=== PATIENT | female | born 1950 | race Caucasian/White ===

== ENCOUNTER 2016-09-17 10:52 | Emergency (ER) | payer OTHER ==
[~2016-09-17] VITALS: Ht 154.9 cm; Wt 72.2 kg
[~2016-09-17 10:52] MED LIST: ASCA500; ASPI1TAB48 PO; FLUT1INH PO; HYDR-5688 PO; LPT40 PO; NTRGSL/4 UT; OMEP40CA41 PO; ONDA4TAB65 PO; SERT-234 PO; TIZA4CAP PO; VTMD PO
[2016-09-17 10:59] VITALS: TEMP 36.9; Ht 154.9 cm; Wt 72.2 kg
[2016-09-17] MEDS ORDERED: GABA1CAP4 PO (11:15)
[2016-09-17] MEDS ORDERED: MORP-158 PO (11:15)
[2016-09-17] MEDS ORDERED: ONDANSETRON INJ 2 MG/ML 2 ML VIAL IV STA (11:24)
[2016-09-17] MEDS ORDERED: SODIUM CHLORIDE 0.9% 1000ML 1,000 ML IV STA (11:24)
[2016-09-17] MEDS ORDERED: MoRPHine SULFATE 4 MG/ML 1 ML CARP\\VIAL IV STA (11:24)
[2016-09-17 11:38] LABS: BASO % 0.5 %; BASO ABS # 0.05 K/uL (0-0.2); COMPLETE YES; EOS % 2.2 %; IG% 0.2 %; LYMPH % 32.3 %; LYMPH ABS # 3.45 K/uL (1.2-3.4); MEAN CELL VOLUME 93.1 fL (80-100); MEAN CORPUSCULAR HEMOGLOBIN 31.1 pg (25-34); MEAN CORPUSCULAR HGB CONC 33.4 g/dl (32-36); MEAN PLATELET VOLUME 10.5 fL (7.4-10.4); MONO % 8.3 %; NEUT % 56.5 %; PLATELET COUNT 259 K/uL (130-400); RED BLOOD COUNT 4.08 M/uL (4.2-5.4); WHITE BLOOD COUNT 10.69 K/uL (4.8-10.8)
[2016-09-17 11:59] LABS: BUN/CREATININE RATIO 19.8 (10-20); CALCIUM 9.4 mg/dl (8.5-10.1); CREATININE 0.84 mg/dl (0.60-1.20); POTASSIUM 3.8 mmol/L (3.5-5.1)
--- NOTE | 2016-09-17 12:03 | DIAGNOSTIC IMAGING REPORT ---
CT SCAN OF THE ABDOMEN AND PELVIS WITHOUT CONTRAST CLINICAL HISTORY: Right lower quadrant abdominal pain and vomiting. COMPARISON STUDY: 04/15/2016 TECHNIQUE: CT scan of the abdomen and pelvis was performed from the lung bases to the proximal femurs. Images are reviewed in the axial, sagittal, and coronal planes. IV contrast was not administered for this examination. CT DOSE: 403.73 mGy.cm FINDINGS: Lower chest: There are minor basilar atelectatic changes. Liver: There is stable 9 mm hypodensity within the right lobe of the liver, likely representing a cyst. Gallbladder: Surgically absent Spleen: Normal in size and attenuation. Pancreas: Unremarkable. Adrenal glands: Unremarkable. Kidneys: No renal, ureteral, or bladder calculi are visualized. Bowel: There are no transition zones indicate bowel obstruction. There is colonic diverticulosis. The appendix appears normal. There are no findings to indicate acute diverticulitis. Peritoneum: There is no intraperitoneal free air or abdominal ascites. Vasculature: The aorta is nondilated. There is probable mild aortic wall thickening involving the mid abdominal aorta./ Adenopathy: None. Pelvic viscera: The uterus appears surgically absent Skeletal structures: No destructive osseous lesions are seen. IMPRESSION: 1. No evidence of bowel obstruction. No evidence of free air 2. Normal appendix 3. Scattered colonic diverticula. No evidence of acute diverticulitis 4. No renal, ureteral, or bladder calculi are visualized 5. Mild mid abdominal aortic wall thickening. No evidence of aneurysmal dilatation. Electronically signed by: Jose Hairston M.D. 09/17/2016 12:02 PM Dictated Date/Time: 09/17/2016 11:56 AM
[2016-09-17 12:11] LABS: URINE APPEARANCE CLEAR (CLEAR); URINE BILIRUBIN NEG (NEG); URINE COLOR YELLOW; URINE EPITHELIAL CELL AUTO >30 /lpf (0-5); URINE NITRITE NEG (NEG); URINE SPECIFIC GRAVITY 1.023 (1.000-1.030); UROBILINOGEN NEG (NEG); ZZUR CULT IF INDIC CLEAN CATCH NO
[2016-09-17 12:14] LABS: MANUAL MICROSCOPIC REQUIRED? NO; REVIEW REQ? NO
--- NOTE | 2016-09-17 13:52 | EMERGENCY ROOM VISIT NOTE ---
History First contact with patient: 11:04 (Tracee Argueta PA-C) First contact with patient: 11:04 (Yeyo Grande, D.O.) Chief Complaint: ABDOMINAL PAIN Stated Complaint: PAIN IN LOWER RT SIDE Nursing Triage Summary: Triage note: pt reports right lower abd pain x 1 week. pt reports nausea and vomitting. (Tracee Argueta PA-C) History of Present Illness The patient is a 66 year old female who presents to the Emergency Room with complaints of right lower quadrant abdominal pain for the past one week. She states that the pain has been intermittent and has become more severe over the past few days. She states it is worse with walking. She has had nausea and one episode of vomiting per day. She does have a history of kidney stones and feels that this pain is similar, but worse than her typical pain. She has a history of hysterectomy and cholecystectomy. She denies other abdominal surgeries. She denies any urinary symptoms, vaginal bleeding/discharge, chest pain, shortness of breath or changes in bowel movements. She denies any blood in her stools. (Tracee Argueta PA-C) Review of Systems A complete 10-point Review of Systems was discussed with the patient, with pertinent positives and negatives listed in the History of Present Illness. All remaining Review of Systems questions can be considered negative unless otherwise specified. (Tracee Argueta PA-C) Past Medical/Surgical History Medical Problems: (1) Acute gastric ulcer (2) Anxiety (3) Carotid stenosis (4) Chronic back pain (5) COPD (chronic obstructive pulmonary disease) (6) Gastroesophageal reflux disease (7) Hyperlipidemia (8) Kidney stone (9) Osteoarthritis (10) Osteoporosis Surgical Problems: (1) section (2) H/O dilation and curettage (3) History of hysterectomy (4) Hx of shoulder surgery (5) S/P carpal tunnel release (Yeyo Grande, D.O.) Family History FHx: cancer FHx: diabetes FHx: heart disease FHx: hypertension FHx: seizures Myocardial infarction FATHER, Onset:45 (Tracee Argueta PA-C) FHx: cancer FHx: diabetes FHx: heart disease FHx: hypertension FHx: seizures Myocardial infarction FATHER, Onset:45 (Yeyo Grande, D.O.) Social History Smoking Status: Current Every Day Smoker Alcohol Use: none Drug Use: none Marital Status: Housing Status: lives alone Occupation Status: employed (Tracee Argueta PA-C) Current/Historical Medications Scheduled Ascorbic Acid (Vitamin C), 500 MG BID Aspirin (Aspirin Low Dose), 81 MG PO QAM Atorvastatin (Atorvastatin Calcium), 40 MG PO QAM Ergocalciferol (Vitamin D), 1 CAP PO 2XWK Gabapentin (Gabapentin), 300 MG PO HS Nitroglycerin (Nitrostat), 0.4 MG UT PRN Omeprazole (Prilosec), 40 MG PO DAILY Sertraline (Zoloft), 150 MG PO HS Scheduled PRN Fluticasone Furoate-Vilanterol (Breo Ellipta), 2 PUFFS PO DAILY PRN for SOB/ Wheezing Hydrocodone/Acetaminophen 5MG/325MG (Elizabeth 5MG/325MG), 1 TABLET PO Q4-6H PRN for Pain Morphine Sulfate (Ms Contin), 1 TAB PO BID PRN for Pain Ondansetron Hcl (Zofran), 8 MG PO Q6H PRN for Nausea Tizanidine Hcl (Zanaflex), 4 MG PO BID PRN Allergies Coded Allergies: Iodinated Diagnostic Agents (Verified Allergy, Unknown, ., 09/18/16) Penicillins (Verified Allergy, Unknown, 09/18/16) Benzalkonium Chloride (Verified Adverse Reaction, Intermediate, VERTIGO, ) Ofloxacin (Verified Adverse Reaction, Intermediate, VERTIGO, 09/18/16) Corticosteroids (Verified Adverse Reaction, Unknown, jittery and hyper, ) Physical Exam Vital Signs Date Time Temp Pulse Resp B/P Pulse Ox O2 Delivery O2 Flow Rate FiO2 09/17/16 14:05 78 18 151/75 97 09/17/16 12:55 67 16 123/65 94 09/17/16 10:59 36.9 79 18 146/60 95 Room Air (Yeyo Grande, D.OYu) Pain Rating (0-10): 9.0 (Tracee Argueta PA-C) Physical Exam VITALS: Vitals are noted on the nurse's note and reviewed by myself. Vital signs stable. GENERAL: This is a 66-year-old female, in no acute distress, nondiaphoretic, well-developed well-nourished. SKIN: Capillary reflex less than 2 seconds. HEENT: Normocephalic. PERRLA. EOMI. Nares patent. Mucous membranes moist. Neck is supple without nuchal rigidity. HEART: Regular rate and rhythm without murmurs gallops or rubs. LUNGS: Clear to auscultation bilaterally without wheezes, rales or rhonchi. ABDOMEN: Positive bowel sounds x 4. Mild tenderness to palpation of the right lower abdomen and right mid abdomen. No guarding or rebound tenderness. Negative Rovsing sign. NEURO: Patient was alert and oriented to person place and time. (Tracee Argueta ., PA-C) Medical Decision & Procedures ER Provider Diagnostic Interpretation: CT SCAN OF THE ABDOMEN AND PELVIS WITHOUT CONTRAST CLINICAL HISTORY: Right lower quadrant abdominal pain and vomiting. COMPARISON STUDY: 04/15/2016 TECHNIQUE: CT scan of the abdomen and pelvis was performed from the lung bases to the proximal femurs. Images are reviewed in the axial, sagittal, and coronal planes. IV contrast was not administered for this examination. CT DOSE: 403.73 mGy.cm FINDINGS: Lower chest: There are minor basilar atelectatic changes. Liver: There is stable 9 mm hypodensity within the right lobe of the liver, likely representing a cyst. Gallbladder: Surgically absent Spleen: Normal in size and attenuation. Pancreas: Unremarkable. Adrenal glands: Unremarkable. Kidneys: No renal, ureteral, or bladder calculi are visualized. Bowel: There are no transition zones indicate bowel obstruction. There is colonic diverticulosis. The appendix appears normal. There are no findings to indicate acute diverticulitis. Peritoneum: There is no intraperitoneal free air or abdominal ascites. Vasculature: The aorta is nondilated. There is probable mild aortic wall thickening involving the mid abdominal aorta./ Adenopathy: None. Pelvic viscera: The uterus appears surgically absent Skeletal structures: No destructive osseous lesions are seen. IMPRESSION: 1. No evidence of bowel obstruction. No evidence of free air 2. Normal appendix 3. Scattered colonic diverticula. No evidence of acute diverticulitis 4. No renal, ureteral, or bladder calculi are visualized 5. Mild mid abdominal aortic wall thickening. No evidence of aneurysmal dilatation. (Tracee Argueta ., PA-C) Laboratory Results 09/17/16 11:10 Red Blood Count 4.08, Mean Corpuscular Volume 93.1, Mean Corpuscular Hemoglobin 31.1, Mean Corpuscular Hemoglobin Concent 33.4, Mean Platelet Volume 10.5, Neutrophils (%) (Auto) 56.5, Lymphocytes (%) (Auto) 32.3, Monocytes (%) (Auto) 8.3, Eosinophils (%) (Auto) 2.2, Basophils (%) (Auto) 0.5, Neutrophils # (Auto) 6.04, Lymphocytes # (Auto) 3.45, Monocytes # (Auto) 0.89, Eosinophils # (Auto) 0.24, Basophils # (Auto) 0.05 09/17/16 11:10 Test 09/17/16 11:10 09/17/16 11:11 09/17/16 13:11 White Blood Count 10.69 K/uL (4.8-10.8) Red Blood Count 4.08 M/uL (4.2-5.4) Hemoglobin 12.7 g/dL (12.0-16.0) Hematocrit 38.0 % (37-47) Mean Corpuscular Volume 93.1 fL (80-100) Mean Corpuscular Hemoglobin 31.1 pg (25-34) Mean Corpuscular Hemoglobin Concent 33.4 g/dl (32-36) Platelet Count 259 K/uL (130-400) Mean Platelet Volume 10.5 fL (7.4-10.4) Neutrophils (%) (Auto) 56.5 % Lymphocytes (%) (Auto) 32.3 % Monocytes (%) (Auto) 8.3 % Eosinophils (%) (Auto) 2.2 % Basophils (%) (Auto) 0.5 % Neutrophils # (Auto) 6.04 K/uL (1.4-6.5) Lymphocytes # (Auto) 3.45 K/uL (1.2-3.4) Monocytes # (Auto) 0.89 K/uL (0.11-0.59) Eosinophils # (Auto) 0.24 K/uL (0-0.5) Basophils # (Auto) 0.05 K/uL (0-0.2) RDW Standard Deviation 45.1 fL (36.4-46.3) RDW Coefficient of Variation 13.2 % (11.5-14.5) Immature Granulocyte % (Auto) 0.2 % Immature Granulocyte # (Auto) 0.02 K/uL (0.00-0.02) Anion Gap 6.0 mmol/L (3-11) Est Creatinine Clear Calc Drug Dose 59.8 ml/min Estimated GFR () 83.9 Estimated GFR (Non- 72.4 BUN/Creatinine Ratio 19.8 (10-20) Calcium Level 9.4 mg/dl (8.5-10.1) Total Bilirubin 0.5 mg/dl (0.2-1) Aspartate Amino Transf (AST/SGOT) 19 U/L (15-37) Alanine Aminotransferase (ALT/SGPT) 25 U/L (12-78) Alkaline Phosphatase 98 U/L (45-117) Total Protein 7.7 gm/dl (6.4-8.2) Albumin 3.8 gm/dl (3.4-5.0) Globulin 3.9 gm/dl (2.5-4.0) Albumin/Globulin Ratio 1.0 (0.9-2) Lipase 133 U/L (73-393) Urine Color YELLOW Urine Appearance CLEAR (CLEAR) Urine pH 7.0 (4.5-7.5) Urine Specific [place] 1.023 (1.000-1.030) Urine Protein NEG (NEG) Urine Glucose (UA) NEG (NEG) Urine Ketones NEG (NEG) Urine Occult Blood TRACE (NEG) Urine Nitrite NEG (NEG) Urine Bilirubin NEG (NEG) Urine Urobilinogen NEG (NEG) Urine Leukocyte Esterase NEG (NEG) Urine WBC (Auto) 1-5 /hpf (0-5) Urine RBC (Auto) 5-10 /hpf (0-4) Urine Hyaline Casts (Auto) 1-5 /lpf (0-5) Urine Epithelial Cells (Auto) >30 /lpf (0-5) Urine Bacteria (Auto) NEG (NEG) Lactic Acid Level 0.8 mmol/L (0.4-2.0) (Yeyo Grande D.OYu) Medications Administered Medications (Trade) Dose Ordered Sig/[place] Route Start Time Stop Time Status Last Admin Dose Admin Sodium Chloride (Nss 1000ml) 1,000 ml @ 999 mls/hr Q1H1M STAT IV 09/17/16 11:24 09/17/16 12:24 DC 09/17/16 11:32 999 MLS/HR Ondansetron HCl (Zofran Inj) 4 mg NOW STAT IV 09/17/16 11:24 09/17/16 11:27 DC 09/17/16 11:33 4 MG Morphine Sulfate (MoRPHine SULFATE INJ) 4 mg NOW STAT IV 09/17/16 11:24 09/17/16 11:27 DC 09/17/16 11:34 4 MG (Yeyo Grande, D.O.) Medical Decision Differential diagnosis includes appendicitis, renal, pyelonephritis, aortic dissection, gastroenteritis, colitis, mesenteric adenitis, mesenteric ischemia, among others. The patient was evaluated as above. Labs were drawn and IV access was obtained. Imaging studies were performed and read by radiology as above. The patient was medicated with 1 L normal saline solution, 4 mg morphine IV and 4 mg Zofran IV. The patient was reassessed multiple times during their stay in the emergency department and remained in stable condition. The patient is a 66-year-old female who presents today complaining of right lower quadrant abdominal pain. Her physical exam is benign other than some right lower quadrant and right mid abdomen tenderness. Labs revealed no leukocytosis, anemia or concerning electrolyte abnormalities. Liver and kidney functions were within normal limits. Urinalysis was not suggestive of infection. CT scan was performed without contrast as the patient has an allergy to contrast dye. This was read by radiology and did not show any evidence of acute intra-abdominal findings. There was some questionable thickening of the aorta, but this does not appear to represent an aortic aneurysm. The patient is not hypertensive and there is not a high clinical suspicion for a symptomatic abdominal aortic aneurysm. Lactic acid was not elevated, making mesenteric ischemia unlikely. RPR was ordered and is pending. The patient has been seen here before for right lower quadrant pain and had a negative CT scan at that time as well. The etiology of her pain is unclear, but there is a small amount of blood in the urine and may represent a recently passed stone. The patient will follow-up with her primary care provider this week and will return sooner for worsening symptoms or any other new/concerning symptoms. Based on the patient's presentation, lab results, and imaging studies, I feel the patient is stable for outpatient treatment. The patient was independently evaluated by Dr. Grande, ED attending physician, who agreed with my assessment and treatment plan. Discharge instructions were reviewed with the patient. The patient verbalized understanding of my assessment and treatment plan and was discharged home in good condition. (Tracee Argueta PA-C) Impression Primary Impression: Right lower quadrant abdominal pain Departure Information Dispostion Home / Self-Care Condition GOOD Referrals Aureliano Hickey PA-C (PCP) Patient Instructions My [facility] Additional Instructions You have been treated in the Emergency Department for your Abdominal Pain. Laboratory results and imaging studies have ruled out any emergent causes for your abdominal pain which would warrant admission or surgery. There was a slight abnormality of your aorta found on CT scan. This will require follow-up with your primary care provider in the next 1-2 weeks. For pain control, you can use the following [id number] medicines (if >12 yo): - Regular strength (325mg/tab) Tylenol (acetaminophen) 2 tabs every 4-6 hours as needed. Do not exceed 12 tablets in a 24 hour period. Avoid taking more than 4 grams (4000 mg) of Tylenol per day. This includes any other sources of acetaminophen you may take on a regular basis. - Regular strength (200 mg/tab) Advil (ibuprofen) 1-2 tabs every 4-6 hours as needed. Do not exceed a dose of 3200 mg per day. Drink plenty of water and stay well hydrated. As with any trip to the Emergency Department, you should follow-up with your Primary Care Provider from today's visit. Return to the emergency department if your symptoms persist despite treatment plan outlined above or if the following symptoms occur: Fevers, increased vomiting, blood in your stool or any other/concerning symptoms.
--- NOTE | 2016-09-17 13:54 | EMERGENCY ROOM VISIT NOTE ---
ED Visit Note First contact with patient: 11:04 I have personally evaluated and examined this patient. I agree with assessment and plan of Coleen Argueta PA-C. During my evaluation patient is asymptomatic, no abdominal pain, I advised her that she needs to stop smoking, and follow up with her primary care doctor regarding this aorta thickening. Do not believe this represents a acute aortic dissection however requires follow to make sure is not enlarging given that she has risk factors for peripheral vascular disease.
[2016-09-17 14:05] VITALS: BP 151/75; PULSE 78; O2SAT 97
[2017-03-24] MEDS ORDERED: ERGO500037 PO (14:53)
== END 2016-09-17 14:08 | disposition home or self-care (01) ==
LOC: C.EDB 10:53 → C.EDC 14:08
DX: R10.31 Right lower quadrant pain (principal); I65.29 Occlusion and stenosis of unspecified carotid artery; E78.5 Hyperlipidemia, unspecified; F17.210 Nicotine dependence, cigarettes, uncomplicated; J44.9 Chronic obstructive pulmonary disease, unspecified; K21.9 Gastro-esophageal reflux disease without esophagitis; K57.30 Diverticulosis of large intestine without perforation or abscess without bleeding; M81.0 Age-related osteoporosis without current pathological fracture; F41.9 Anxiety disorder, unspecified; R11.2 Nausea with vomiting, unspecified; Z79.899 Other long term (current) drug therapy

== ENCOUNTER 2016-09-18 15:07 | Emergency (ER) | payer OTHER ==
[~2016-09-18] VITALS: Ht 152.4 cm; Wt 73.6 kg
[~2016-09-18 15:07] MED LIST changes: +GABA1CAP4 PO; +MORP-158 PO
[2016-09-18 15:17] VITALS: Ht 152.4 cm; Wt 73.6 kg
[2016-09-18 17:05] LABS: URINE APPEARANCE CLEAR (CLEAR); URINE BILIRUBIN NEG (NEG); URINE COLOR YELLOW; URINE EPITHELIAL CELL AUTO >30 /lpf (0-5); URINE NITRITE NEG (NEG); UROBILINOGEN NEG (NEG); ZZUR CULT IF INDIC CLEAN CATCH NO
[2016-09-18] MEDS ORDERED: LIDOCAINE HCL 2% VISC SOLN 20 ML UDC PO STA (17:06)
[2016-09-18] MEDS ORDERED: ALUMINUM/MAGNESIUM SUSP 30 ML UDC PO STA (17:06)
[2016-09-18 17:08] LABS: MANUAL MICROSCOPIC REQUIRED? NO; REVIEW REQ? NO
--- NOTE | 2016-09-18 17:08 | DIAGNOSTIC IMAGING REPORT ---
CHEST ONE VIEW PORTABLE CLINICAL HISTORY: cp dyspnea COMPARISON STUDY: 07/04/2016 FINDINGS: atelectasis left base. Lungs otherwise are clear. No evidence for significant cardiac enlargement. IMPRESSION: Platelike atelectasis left base. Otherwise negative study Electronically signed by: Edward Rodriguez M.D. 09/18/2016 5:07 PM Dictated Date/Time: 09/18/2016 5:06 PM
--- NOTE | 2016-09-18 17:34 | EMERGENCY ROOM VISIT NOTE ---
History Report prepared by Yoli: Cassidy Scott Under the Supervision of: Dr. Dexter Lehman D.O. First contact with patient: 16:24 Chief Complaint: SHORTNESS OF BREATH Stated Complaint: CHEST PRESSURE,SOB Nursing Triage Summary: having sob today. I was here yesterday for abdominal pains. I keep getting dizzy. History of Present Illness The patient is a 66 year old female who presents to the Emergency Room with complaints of intermittent shortness of breath episodes beginning this morning. She notes that these episodes occur every 5-10 minutes and can last up to a couple of hours in length. She is also experiencing chest pain and pain with breathing. She describes the chest pain as a severe heartburn sensation. The patient was seen in the ED yesterday and passed a kidney stone. She notes she still has slight abdominal pain. The patient did have similar symptoms one week ago however they did not last this long. She is a current smoker. She denies a history of heart problems. Source of History: patient Onset: this morning Position: other (global) Quality: other (shortness of breath) Timing: intermittent Associated Symptoms: + abdominal pain, + chest pain Note: Patient has pain with breathing. Review of Systems See HPI for pertinent positives & negatives. A total of 10 systems reviewed and were otherwise negative. Past Medical & Surgical Medical Problems: (1) Acute gastric ulcer (2) Anxiety (3) Carotid stenosis (4) Chronic back pain (5) COPD (chronic obstructive pulmonary disease) (6) Gastroesophageal reflux disease (7) Hyperlipidemia (8) Kidney stone (9) Osteoarthritis (10) Osteoporosis Surgical Problems: (1) section (2) H/O dilation and curettage (3) History of hysterectomy (4) Hx of shoulder surgery (5) S/P carpal tunnel release Family History FHx: cancer FHx: diabetes FHx: heart disease FHx: hypertension FHx: seizures Myocardial infarction FATHER, Onset:45 Social History Smoking Status: Current Every Day Smoker Alcohol Use: none Drug Use: none Marital Status: Housing Status: lives alone Occupation Status: employed Current/Historical Medications Scheduled Ascorbic Acid (Vitamin C), 500 MG BID Aspirin (Aspirin Low Dose), 81 MG PO QAM Atorvastatin (Atorvastatin Calcium), 40 MG PO QAM Ergocalciferol (Vitamin D), 1 CAP PO 2XWK Gabapentin (Gabapentin), 300 MG PO HS Nitroglycerin (Nitrostat), 0.4 MG UT PRN Omeprazole (Prilosec), 40 MG PO DAILY Sertraline (Zoloft), 150 MG PO HS Scheduled PRN Fluticasone Furoate-Vilanterol (Breo Ellipta), 2 PUFFS PO DAILY PRN for SOB/ Wheezing Hydrocodone/Acetaminophen 5MG/325MG ([place] 5MG/325MG), 1 TABLET PO Q4-6H PRN for Pain Morphine Sulfate (Ms Contin), 1 TAB PO BID PRN for Pain Ondansetron Hcl (Zofran), 8 MG PO Q6H PRN for Nausea Tizanidine Hcl (Zanaflex), 4 MG PO BID PRN Allergies Coded Allergies: Iodinated Diagnostic Agents (Verified Allergy, Unknown, ., 09/18/16) Penicillins (Verified Allergy, Unknown, 09/18/16) Benzalkonium Chloride (Verified Adverse Reaction, Intermediate, VERTIGO, ) Ofloxacin (Verified Adverse Reaction, Intermediate, VERTIGO, 09/18/16) Corticosteroids (Verified Adverse Reaction, Unknown, jittery and hyper, ) Physical Exam Vital Signs Date Time Temp Pulse Resp B/P Pulse Ox O2 Delivery O2 Flow Rate FiO2 09/18/16 16:24 36.8 76 18 157/57 97 Room Air 09/18/16 15:17 97 Room Air 09/18/16 15:17 36.8 76 18 157/57 97 Room Air Physical Exam CONSTITUTIONAL/VITAL SIGNS: Reviewed / noted above. GENERAL: Non-toxic in appearance. INTEGUMENTARY: Warm, dry, and [place]. HEAD: Normocephalic. EYES: without scleral icterus or trauma. ENT/OROPHARYNX: clear and moist. LYMPHADENOPATHY/NECK: Is supple without lymphadenopathy or meningismus. RESPIRATORY: Lungs clear and equal. CARDIOVASCULAR: Regular rate and rhythm. GI/ABDOMEN: Soft and nontender. No organomegaly or pulsatile mass. No rebound or guarding. Normal bowel sounds. EXTREMITIES: Warm and well perfused. BACK: No CVA tenderness. NEUROLOGICAL: Intact without focal deficits. PSYCHIATRIC: normal affect. MUSCULOSKELETAL: Normally developed with good muscle tone. Medical Decision & Procedures ER Provider Diagnostic Interpretation: X ray results and stated below per my interpretation and radiology interpretation. CHEST ONE VIEW PORTABLE CLINICAL HISTORY: cp dyspnea COMPARISON STUDY: 07/04/2016 FINDINGS: atelectasis left base. Lungs otherwise are clear. No evidence for significant cardiac enlargement. IMPRESSION: Platelike atelectasis left base. Otherwise negative study Electronically signed by: Edward Rodriguez M.D. 09/18/2016 5:07 PM Dictated Date/Time: 09/18/2016 5:06 PM Laboratory Results Test 09/18/16 16:03 09/18/16 16:38 Urine Color YELLOW Urine Appearance CLEAR (CLEAR) Urine pH 5.0 (4.5-7.5) Urine Specific [place] 1.020 (1.000-1.030) Urine Protein NEG (NEG) Urine Glucose (UA) NEG (NEG) Urine Ketones NEG (NEG) Urine Occult Blood TRACE (NEG) Urine Nitrite NEG (NEG) Urine Bilirubin NEG (NEG) Urine Urobilinogen NEG (NEG) Urine Leukocyte Esterase NEG (NEG) Urine WBC (Auto) 1-5 /hpf (0-5) Urine RBC (Auto) 0-4 /hpf (0-4) Urine Hyaline Casts (Auto) 1-5 /lpf (0-5) Urine Epithelial Cells (Auto) >30 /lpf (0-5) Urine Bacteria (Auto) NEG (NEG) Bedside Troponin I 0.000 ng/ml (0-0.045) Laboratory results as stated above per my review. Medications Administered Medications (Trade) Dose Ordered Sig/[place] Route Start Time Stop Time Status Last Admin Dose Admin Al Hydroxide/Mg Hydroxide (Maalox Susp) 30 ml NOW STAT PO 09/18/16 17:06 09/18/16 17:07 DC 09/18/16 17:13 30 ML Lidocaine HCl (Viscous Lidocaine 2% Soln) 10 ml NOW STAT PO 09/18/16 17:06 09/18/16 17:07 DC 09/18/16 17:13 10 ML ECG Indication: SOB/dyspnea Rate (beats per minute): 71 Rhythm: normal sinus Findings: no acute ischemic change, no ectopy ED Course 1626: Previous medical records were reviewed. The patient was evaluated in room B11. A complete history and physical examination was performed. 1706: Viscous Lidocaine 2% Soln 10 ml PO, Maalox Susp 30 ml PO. 1707: I reevaluated the patient. 1728: On reevaluation, the patient is hemodynamically stable. I discussed the results and findings with the patient. She verbalized agreement of the treatment plan. She was discharged home. Medical Decision The patient is a 66 year old female who presents to the ED with complaints of shortness of breath and some epigastric abdominal pain/heartburn. The patient was seen here yesterday for abdominal pain. Although the patient states that she's had the symptoms in the past, she did not have an yesterday. The patient states that her symptoms come and go about every 5-10 minutes. She denies any history of heart problems or family history. She denies any diaphoresis, palpitations or other symptoms. Her vital signs are normal. Her physical exam was normal. EKG shows a normal sinus rhythm at a rate of 71. Chest x-ray did not show acute disease. Urine did not show infection. Troponin was negative. Blood work was reviewed from yesterday. CT scan was reviewed from yesterday. The patient was given a GI cocktail for symptoms. She was told to follow-up with her PCP for recheck. The symptoms are not felt to be likely heart related. the differential was considered includes acute myocardial infarction, acute coronary syndrome, myocarditis, pericarditis, pericardial effusions /tamponade, esophageal perforation, thoracic aortic dissection, pulmonary embolism, pneumonia, pneumothorax, pancreatitis, shingles, acute cholecystitis, perforated abdominal viscus. Impression Primary Impression: Epigastric abdominal pain Scribe Attestation The scribe's documentation has been prepared under my direction and personally reviewed by me in its entirety. I confirm that the note above accurately reflects all work, treatment, procedures, and medical decision making performed by me. Departure Information Dispostion Home / Self-Care Referrals Aureliano Hickey PA-C (PCP) Forms HOME CARE DOCUMENTATION FORM, IMPORTANT VISIT INFORMATION Patient Instructions My [facility] Additional Instructions Follow-up with your doctor for further care and evaluation in 1-2 days. Return to the emergency department for worsening or new symptoms or any concerns. You have been examined and treated today on an emergency basis only. This is not a substitute for, or an effort to provide, complete comprehensive medical care. It is impossible to recognize and treat all injuries or illnesses in a single emergency department visit. It is therefore important that you follow up closely with your doctor. Call as soon as possible for an appointment.
[2016-09-18 18:01] VITALS: BP 145/57; PULSE 74; TEMP 36.8; O2SAT 97
[2017-03-24] MEDS ORDERED: ERGO500037 PO (14:53)
== END 2016-09-18 18:01 | disposition home or self-care (01) ==
LOC: C.EDB 15:09
DX: R10.13 Epigastric pain (principal); R06.02 Shortness of breath; J44.9 Chronic obstructive pulmonary disease, unspecified; K21.9 Gastro-esophageal reflux disease without esophagitis; E78.5 Hyperlipidemia, unspecified; F17.200 Nicotine dependence, unspecified, uncomplicated; Z79.899 Other long term (current) drug therapy; Z79.82 Long term (current) use of aspirin; Z87.442 Personal history of urinary calculi; Z83.3 Family history of diabetes mellitus; Z82.49 Family history of ischemic heart disease and other diseases of the circulatory system

== ENCOUNTER 2016-11-11 12:38 | Emergency (ER) | payer OTHER ==
[~2016-11-11] VITALS: Ht 152.4 cm; Wt 75.1 kg
[2016-11-11 12:45] VITALS: TEMP 36.5; O2SAT 93; Ht 152.4 cm; Wt 75.1 kg
[2016-11-11 13:06] LABS: HEMATOCRIT 38.3 % (37-47); MEAN CELL VOLUME 90.8 fL (80-100); MEAN CORPUSCULAR HGB CONC 34.2 g/dl (32-36); MEAN PLATELET VOLUME 10.2 fL (7.4-10.4); PLATELET COUNT 263 K/uL (130-400); RED BLOOD COUNT 4.22 M/uL (4.2-5.4); WHITE BLOOD COUNT 8.73 K/uL (4.8-10.8)
[2016-11-11] MEDS ORDERED: FSM70 PO (13:12)
[2016-11-11] MEDS ORDERED: LORA-741 PO (13:12)
--- NOTE | 2016-11-11 13:14 | DIAGNOSTIC IMAGING REPORT ---
CHEST ONE VIEW PORTABLE CLINICAL HISTORY: Atypical chest pain COMPARISON STUDY: No previous studies for comparison. FINDINGS: The cardiac and mediastinal contours are normal. There is no evidence of focal pulmonary consolidation. There is no evidence of failure. No pleural effusions are visualized.[ There is minor bibasilar atelectasis IMPRESSION: No active disease in the chest. Electronically signed by: Jose Hairston M.D. 11/11/2016 1:13 PM Dictated Date/Time: 11/11/2016 1:12 PM
[2016-11-11 13:16] LABS: INR 0.9 (0.9-1.1); PARTIAL THROMBOPLASTIN RATIO 1.1
[2016-11-11 13:24] LABS: BUN/CREATININE RATIO 14.7 (10-20); CALCIUM 9.4 mg/dl (8.5-10.1); CREATININE 0.76 mg/dl (0.60-1.20); POTASSIUM 4.2 mmol/L (3.5-5.1)
[2016-11-11 13:29] LABS: ALB/GLOB RATIO 0.9 (0.9-2); CKMB/CK RATIO 0.7 (0-3.0)
--- NOTE | 2016-11-11 13:42 | EMERGENCY ROOM VISIT NOTE ---
History Report prepared by Yoli: Ozzy Wagner Under the Supervision of: Dr. Sterling Ma M.D. First contact with patient: 12:43 Chief Complaint: CARDIAC ASSESSMENT Stated Complaint: CHEST PAIN/LETHARGIC Nursing Triage Summary: patient was brought via als. patient states while she was working she developed left side chest pains. per ems, "when we arrived on scene. people there said there was a period of unresponsiveness." patient is very lethargic at time of arrival to er. bsg 98. patient denies taking extra pain medications today. patient states she takes ms contin for arthritis. per med list patient is also perscribed hydrocodone-acetaminophen 5-325, gabapentin and zanaflex. History of Present Illness The patient is a 66 year old female who presents to the Emergency Room via ALS with complaints of constant left sided chest pain that started while working [employer]. She rates her pain a 10/10. Per the EMS staff, the patient experienced an episode of unresponsiveness prior to their arrival on scene. Patient reports increased fatigue at this time. The patient suffers from chronic pain related to arthritis. She is prescribed MS-Contin every 12 hours, hydrocodone- acetaminophen 5 mg every 6 hours, and Gabapentin She denies taking extra pain medications today. The patient adds that she was evaluated by her primary care physician yesterday who believes she may be over prescribed pain medications. Source of History: patient Onset: [employer] Position: chest (left) Symptom Intensity: 10/10 Timing: constant Associated Symptoms: + fatigue Note: Patient experienced episode of unresponsiveness. Review of Systems All systems have been listed, reviewed, and are negative other than those previously mentioned. Please see Additional Medical History Sheet. Past Medical & Surgical Medical Problems: (1) Acute gastric ulcer (2) Anxiety (3) Carotid stenosis (4) Chronic back pain (5) COPD (chronic obstructive pulmonary disease) (6) Gastroesophageal reflux disease (7) Hyperlipidemia (8) Kidney stone (9) Osteoarthritis (10) Osteoporosis Surgical Problems: (1) section (2) H/O dilation and curettage (3) History of hysterectomy (4) Hx of shoulder surgery (5) S/P carpal tunnel release Family History FHx: cancer FHx: diabetes FHx: heart disease FHx: hypertension FHx: seizures Myocardial infarction FATHER, Onset:45 Social History Smoking Status: Current Every Day Smoker Alcohol Use: none Drug Use: none Marital Status: Housing Status: lives alone Occupation Status: employed Current/Historical Medications Scheduled Alendronate Sodium (Alendronate Sodium), 70 MG PO WK Aspirin (Aspirin Low Dose), 81 MG PO QAM Atorvastatin (Atorvastatin Calcium), 40 MG PO QAM Ergocalciferol (Vitamin D), 1 CAP PO 2XWK Gabapentin (Gabapentin), 300 MG PO HS Nitroglycerin (Nitrostat), 0.4 MG UT PRN Omeprazole (Prilosec), 40 MG PO DAILY Sertraline (Zoloft), 150 MG PO HS Scheduled PRN Fluticasone Furoate-Vilanterol (Breo Ellipta), 2 PUFFS PO DAILY PRN for SOB/ Wheezing Hydrocodone/Acetaminophen 5MG/325MG ([place] 5MG/325MG), 1 TABLET PO Q4-6H PRN for Pain Ketorolac Tromethamine (Toradol), 1 TAB PO Q6H PRN for Pain Lorazepam (Ativan), 0.5 MG PO Q6H PRN for Anxiety Morphine Sulfate (Ms Contin), 1 TAB PO BID PRN for Pain Ondansetron Hcl (Zofran), 8 MG PO Q6H PRN for Nausea Tizanidine Hcl (Zanaflex), 4 MG PO Q8 PRN for MUSCLE SPASMS Allergies Coded Allergies: Iodinated Diagnostic Agents (Verified Allergy, Unknown, ., 09/18/16) Penicillins (Verified Allergy, Unknown, 09/18/16) Benzalkonium Chloride (Verified Adverse Reaction, Intermediate, VERTIGO, ) Ofloxacin (Verified Adverse Reaction, Intermediate, VERTIGO, 09/18/16) Corticosteroids (Verified Adverse Reaction, Unknown, jittery and hyper, ) Physical Exam Vital Signs Date Time Temp Pulse Resp B/P Pulse Ox O2 Delivery O2 Flow Rate FiO2 11/11/16 16:11 62 18 131/57 95 11/11/16 15:54 62 18 131/57 95 Room Air 11/11/16 14:59 58 15 107/42 95 Room Air 11/11/16 14:04 67 16 119/48 98 Room Air 64 118/59 66 112/61 11/11/16 13:46 63 18 107/73 94 Room Air 11/11/16 12:56 94 Room Air 11/11/16 12:47 67 11/11/16 12:45 93 Room Air 11/11/16 12:45 36.5 66 14 117/56 93 Room Air 11/11/16 12:45 93 Room Air Physical Exam GENERAL: Patient awake but somewhat drowsy. Answers questions appropriately. Patient follows commands. Patient does not appear toxic. Patient is adequately hydrated and well-nourished. SKIN: No erythema, pallor, cyanosis or rash HEENT: Normal head, pupils equal, reactive to light and accommodation. Oral cavity and posterior pharynx appear normal. Neck: Without adenopathy, no neck vein distention. LUNGS: Clear to auscultation. No wheezes, no rales, no rhonchi. HEART: No murmurs. No gallops. No rubs ABDOMEN: No masses, no rebound, no hepatomegaly or splenomegaly. EXTREMITIES: No signs of trauma. No pedal or pretibial edema. No calf or thigh tenderness. NEUROLOGIC: Cranial nerves II-XII within normal limits. No gross motor sensory function deficits. Medical Decision & Procedures ER Provider Diagnostic Interpretation: Radiology results as stated below per my review and radiologist interpretation: CHEST ONE VIEW PORTABLE CLINICAL HISTORY: Atypical chest pain COMPARISON STUDY: No previous studies for comparison. FINDINGS: The cardiac and mediastinal contours are normal. There is no evidence of focal pulmonary consolidation. There is no evidence of failure. No pleural effusions are visualized.[ There is minor bibasilar atelectasis IMPRESSION: No active disease in the chest. Electronically signed by: Jose Hairston M.D. 11/11/2016 1:13 PM Dictated Date/Time: 11/11/2016 1:12 PM Laboratory Results 11/11/16 12:40 11/11/16 12:40 Test 11/11/16 12:40 11/11/16 14:37 Red Blood Count 4.22 M/uL (4.2-5.4) Mean Corpuscular Volume 90.8 fL (80-100) Mean Corpuscular Hemoglobin 31.0 pg (25-34) Mean Corpuscular Hemoglobin Concent 34.2 g/dl (32-36) RDW Standard Deviation 42.5 fL (36.4-46.3) RDW Coefficient of Variation 12.8 % (11.5-14.5) Mean Platelet Volume 10.2 fL (7.4-10.4) Prothrombin Time 10.0 SECONDS (9.0-12.0) Prothromb Time International Ratio 0.9 (0.9-1.1) Activated Partial Thromboplast Time 29.7 SECONDS (21.0-31.0) Partial Thromboplastin Ratio 1.1 Anion Gap 6.0 mmol/L (3-11) Est Creatinine Clear Calc Drug Dose 65.9 ml/min Estimated GFR () 94.7 Estimated GFR (Non- 81.7 BUN/Creatinine Ratio 14.7 (10-20) Calcium Level 9.4 mg/dl (8.5-10.1) Total Bilirubin 0.2 mg/dl (0.2-1) Aspartate Amino Transf (AST/SGOT) 17 U/L (15-37) Alanine Aminotransferase (ALT/SGPT) 18 U/L (12-78) Alkaline Phosphatase 109 U/L (45-117) Total Creatine Kinase 97 U/L (26-192) Creatine Kinase MB 0.7 ng/ml (0.5-3.6) Creatine Kinase MB Ratio 0.7 (0-3.0) Total Protein 7.4 gm/dl (6.4-8.2) Albumin 3.5 gm/dl (3.4-5.0) Globulin 3.9 gm/dl (2.5-4.0) Albumin/Globulin Ratio 0.9 (0.9-2) Bedside Troponin I 0.000 ng/ml (0-0.045) Laboratory results as stated above per my review. ECG Indication: chest pain Rate (beats per minute): 63 Rhythm: normal sinus Findings: no acute ischemic change, no ectopy ED Course 1330: Past medical records reviewed. The patient was evaluated in room C1. A complete history and physical examination was performed. 1535: The patient's repeat troponin was 0, per nursing staff. 1555: Upon reevaluation, the patient appeared to have improvement of her symptoms. I discussed today's findings along with options for pain management with the patient. She verbalized agreement of the treatment plan. She was discharged home. Medical Decision Nurses notes reviewed. Medical history sheet reviewed. Differential diagnosis includes but is not limited to: Accidental medication overdose, hypoglycemia, orthostatic hypotension, metabolic disorder. Multiple labs, EKG and imaging were obtained. Orthostatic vital signs were also obtained. Please see above. I believe that the patient was dizzy and weak this morning. She had a near syncopal episode which was most likely secondary to a build up of narcotics. The patient is on large doses of MS Contin plus hydrocodone. We discussed alternative pain medications. The patient will be encouraged to cut her MS Contin dose in half. I've given her a prescription for Toradol. Hopefully that will not bother her stomach. The patient was encouraged to follow back with her family physician. [place] Drug Monitoring Program Search Results: patient reviewed within database Drug Monitoring Findings: Patient is on multiple narcotics. Impression Primary Impression: Medication reaction Additional Impression: Near syncope Scribe Attestation The scribe's documentation has been prepared under my direction and personally reviewed by me in its entirety. I confirm that the note above accurately reflects all work, treatment, procedures, and medical decision making performed by me. Departure Information Dispostion Home / Self-Care (well) Prescriptions Ketorolac Tromethamine (TORADOL) 10 Mg Tab 1 TAB PO Q6H Y for Pain, #30 TAB Prov: Sterling Ma M.D. 11/11/16 Referrals Aureliano Hickey PA-C (PCP) Forms IMPORTANT VISIT INFORMATION Patient Instructions My [facility] Additional Instructions Cut your morphine dosage in half. 1 Toradol every 6 hours as needed for pain. Try to take the minimum amount of hydrocodone. Follow-up with your family physician within the next 2 weeks. Problem Qualifiers
[2016-11-11] MEDS ORDERED: KETO10TA PO (16:00)
[2016-11-11 16:11] VITALS: BP 131/57; PULSE 62; O2SAT 95
[2017-03-24] MEDS ORDERED: ERGO500037 PO (14:53)
== END 2016-11-11 16:12 | disposition home or self-care (01) ==
LOC: EDBD 12:38 → C.EDC 12:42
DX: R55 Syncope and collapse (principal); T50.995A Adverse effect of other drugs, medicaments and biological substances, initial encounter; J44.9 Chronic obstructive pulmonary disease, unspecified; K21.9 Gastro-esophageal reflux disease without esophagitis; E78.5 Hyperlipidemia, unspecified; M81.0 Age-related osteoporosis without current pathological fracture; M19.90 Unspecified osteoarthritis, unspecified site; F17.200 Nicotine dependence, unspecified, uncomplicated; Z87.442 Personal history of urinary calculi; Z90.710 Acquired absence of both cervix and uterus; Z98.891 History of uterine scar from previous surgery; Z98.890 Other specified postprocedural states; Z83.3 Family history of diabetes mellitus; Z82.49 Family history of ischemic heart disease and other diseases of the circulatory system; Z82.0 Family history of epilepsy and other diseases of the nervous system; Z79.899 Other long term (current) drug therapy

== ENCOUNTER → 2017-02-01 | Outpatient (CLI) | payer OTHER ==
[~2017-02-01] MED LIST changes: +AMT10 PO; -ASCA500; +ASCO10003 PO; +ATOR-26 PO; +CALC600T PO; +ERGO500037 PO; +FSM70 PO; +FURO20TA PO; +LORA-741 PO
--- NOTE | 2017-02-01 13:13 | DIAGNOSTIC IMAGING REPORT ---
RIGHT KNEE 4 VIEWS HISTORY: FALL INJURY TO RIGHT ELBOW,;FALL INJURY TO RT KNEE Right COMPARISON: None. FINDINGS: There is no fracture or dislocation. Soft tissues are unremarkable. No radiopaque foreign bodies. No significant knee effusion. IMPRESSION: No fractures. Electronically signed by: Bello Vivas M.D. 02/01/2017 1:12 PM Dictated Date/Time: 02/01/2017 1:10 PM
--- NOTE | 2017-02-01 13:14 | DIAGNOSTIC IMAGING REPORT ---
RIGHT ELBOW MIN 3 VIEWS ROUTINE CLINICAL HISTORY: Right elbow pain following fall. COMPARISON: None FINDINGS: Alignment of the right elbow is anatomic. There is no acute fracture or joint effusion. IMPRESSION: No acute fracture or joint effusion of the right elbow. Electronically signed by: Gabriel Osborne M.D. 02/01/2017 1:13 PM Dictated Date/Time: 02/01/2017 1:12 PM
== END | disposition home or self-care (01) ==
LOC: C.RAD 12:37
PROVIDERS: ATTEND Physician Assistant
DX: S59.901A Unspecified injury of right elbow, initial encounter (principal); S89.91XA Unspecified injury of right lower leg, initial encounter; W19.XXXA Unspecified fall, initial encounter

== ENCOUNTER → 2017-02-07 | Outpatient (CLI) | payer OTHER ==
--- NOTE | 2017-02-07 13:55 | DIAGNOSTIC IMAGING REPORT ---
ULTRASOUND OF THE CAROTID ARTERIES CLINICAL HISTORY: Carotid artery stenosis. COMPARISON STUDY: Carotid artery ultrasound dated 12/11/2015. TECHNIQUE: Real-time, grayscale, and color Doppler sonography of the carotid arteries is performed. Images are reviewed in the transverse and longitudinal planes. FINDINGS: Blood pressure in the right arm measures 119/55 and blood pressure in the left arm measures 118/50. The carotid arteries are patent bilaterally and demonstrate antegrade flow. There is mild echogenic shadowing atherosclerotic plaque seen the carotid bulbs bilaterally. Normal doppler arterial waveforms are seen throughout. Minimally elevated velocities are noted. This is likely on a technical basis, as the grayscale images do not support significant stenosis. Velocity measurements are listed below. Common carotid peak systolic velocity (cm/sec): RIGHT: 84 LEFT: 93 ICA proximal peak systolic velocity (cm/sec): RIGHT: 133 LEFT: 111 ICA mid peak systolic velocity (cm/sec): RIGHT: 131 LEFT: 147 ICA distal peak systolic velocity (cm/sec): RIGHT: 100 LEFT: 95 ICA/CC peak systolic ratio: RIGHT: 1.6 LEFT: 1.6 Antegrade flow was shown in the vertebral arteries. The external carotid arteries are patent. IMPRESSION: 1. Atherosclerotic plaque with no convincing sonographic evidence of hemodynamically significant stenosis in the right or left carotid arterial system. 2. Antegrade flow is shown in the vertebral arteries. Electronically signed by: Cb Bennett M.D. 02/07/2017 1:53 PM Dictated Date/Time: 02/07/2017 1:49 PM
--- NOTE | 2017-02-15 07:14 | CODING QUERY MEDICAL NECESSITY ---
SUPPORTING DIAGNOSIS NEEDED A supporting diagnosis is required for the test/procedure performed on this patient in order for us to be reimbursed by the patient's insurance. Please provide a supporting diagnosis for the following test/procedure listed below next to the test name along with your signature. *If there is no additional diagnosis for this patient that would support the following test/procedure please document that below next to the test/procedure. Test(s)/Procedure(s) that require a supporting diagnosis: * US CAROTID DOPPLER NECK ARTERY DIAGNOSIS: Provider Signature: Date: Thank you Juana Phan [facility] Information Management Once completed, please kindly fax back to [phone] For questions please call [phone]
== END | disposition home or self-care (01) ==
LOC: C.ULTR 12:27
PROVIDERS: ATTEND Surgery
DX: I65.29 Occlusion and stenosis of unspecified carotid artery (principal); Z86.79 Personal history of other diseases of the circulatory system

== ENCOUNTER → 2017-03-12 | Outpatient (CLI) | payer OTHER ==
[~2017-03-12] MED LIST changes: -ASCO10003 PO; -ATOR-26 PO; -CALC600T PO; -FURO20TA PO
--- NOTE | 2017-03-13 05:51 | PAP/PSG TECHNICIAN REPORT ---
[facility] Gluing Machine Offbearer Polysomnogram Report Study name: None Report date: 03/13/2017 Study date: 03/12/2017 Referring Physician: Dr. Maxwell Name: NAOMI ARANA Interpreting Physician: Sandro Hall M.D. Date of : 1950 Gluing Machine Offbearer: Mayito Guzman RPSGT. Sex: Female Age: 66 StudyType: PSG Weight: 159 lbs 13.75 inches Height: 66 years, Height 4' 11" Neck Circum: BMI: 32.11 Medications: MORPHINE SULFATE ER 30 MG, SERTRALINE 100 MG, NITROSTAT 0.4 MG, CARAFATE 1MG, FOSAMAX 70 MG, LIPITOR 80 MG, PRILOSEC 40 MG, ZANAFLEX 4 MG, NEURONTIN 300 MG, COLACE 100 MG, ASPIRIN 81 MG, ONDANSETRON HCL 8 MG Patient History PATIENT HAS HISTORY OF RESTLESS LEGS, EXCESSIVE DAYTIM SLEEPINESS AND ANEMIA. SHE GENERALLY FEELS FATIGUE DURING THE DAY AND LACKS ENERGY. SHE IS HERE TODAY FOR AN EVALUATION FOR CIRO. ESS = 17 RM 5 Parameters Monitored NPSG: E1-M2, E2-M1, Fp1-M2, Fp2-M1, F3-M2, F4-M2, F4-M1, C3-M2, C4-M2, C4-M1, O1-M2, O2-M2, O2-M1, T3-M2, T4-M1, P3-M2, P4-M1, CHIN1, CHIN2, HR, EKG, Legs, PFLOW, SNOR, FLOW, CFLOW, Tidal Volume, THOR, ABDO, SpO2, PLTH, CPRESS, ETCO2 Wave, ETCO2, pH Sleep Architecture Sleep Stages Time at Lights Off 10:16:25 PM STAGES Time (min.) TST (%) Time at Lights On 5:30:25 AM Wake 68.5 -- Total Recording Time (TRT) 434.50 min. N1 15.5 4 Total Sleep Period (TSP) 381.5 min. N2 215.0 59 Total Sleep Time (TST) 365.5min. N3 96.5 26 Awake Time 69.0 min. REM 38.5 11 Wake after Sleep Onset 19.0 min. Sleep Efficiency (SE) 84 % Sleep Onset Latency (KEMI) 49.5 min. Number of Stage 1 Shifts None Awakenings 22 Stage Changes 78 Number of REM periods 1 REM 38.5 11 REM Latency 260.5 min. NREM 327.0 89 Body Position Analysis Supine Right Left Side Prone Vertical Total Sleep Time (min.) 124.1 200.8 76.2 276.99 0.0 0.0 Total Sleep Time (%) 24% 55% 21% 76 0% N/A% Total Sleep Time REM (min.) 0.0 38.5 0.0 None 0.0 0.0 Total Sleep Time NREM (min.) 88.5 162.3 76.2 None 0.0 0.0 Intermittent Wake (min.) 35.6 6.3 26.6 None 0.0 0.0 Total Sleep Period (%) 25% None None None None None Arousals Myoclonus (PLM) * Events Count Index Events Count Index Spontaneous 25 4 Events Awake (PLMW) 52 45.5 Respiratory 4 1.0 Events Asleep w/ Arousal (PLMA) 24 3.9 PLM 23 4 Events Asleep w/o Arousal (PLMS) 160 26.3 Snoring 7 1 Total Asleep 184 30.2 Total 59 10 Total 236 33 Respiratory Analysis * CA OA MA CH H RERA Total Count 0 0 0 0 1 7 1 Index 0.0 0.0 0.0 0 0.2 1 1.3 Mean Duration 0.0 0.0 0.0 0.00 17.0 13.8 14.2 Longest Duration 0.0 0.0 0.0 0.00 0.0 15.6 17.0 Respiratory Event Summary Total Supine ~Supine Right Left Prone REM NREM Apneas Count 0 0 0 0 0 N/A 0 0 Index 0.0 0 0 0.0 0.0 N/A 0 0 Hypopneas (4% Desat) Count 1 1 0 0 0 N/A 0 1 Index 0.2 0.7 0 0.0 0.0 N/A 0.0 0.2 Apneas & All Hypopneas Count 1 1 0 0 0 N/A 0 1 Index 0.2 1 0 0 0 N/A 0.0 0.2 Respiratory Events (Literacy Education Professor+All Hyp+RERA) Count 1 7 1 0 1 N/A 0 1 Index 1.3 5 0 0.0 0.8 N/A 0.0 1.5 Respiratory Related Arousal Count 4 7 1 0 1 N/A 0 6 Index 1.0 3 0 0 1 N/A 0 1 Snoring Analysis Supine Right Left Prone REM NREM Total Snore duration 7.2 min Snores count 433 3 12 N/A 1 447 448 Snore mean duration 1.0 Sec Snores index 294 1 9 N/A 1.6 82.0 73.5 TST with snoring (%) 2.0% SpO2 Analysis Total REM NREM Awake <50% 0.0 min. 0.0 min. 0.0 min. 0.0 min. 51 - 60% 0.0 min. 0.0 min. 0.0 min. 0.0 min. 61 - 70% 0.0 min. 0.0 min. 0.0 min. 0.0 min. 71 - 80% 0.0 min. 0.0 min. 0.0 min. 0.0 min. 81 - 90% 387.8 min. 38.5 min. 311.3 min. 38.0 min. 91 - 100% 46.1 min. 0.0 min. 15.7 min. 30.4 min. Average 89 89 89 90 Minimum SpO2 86 87 86 86 Desaturation Event Index 0.4 0.0 0.4 0.9 # Desat. Events below 89% 2 N/A 2 0 Time(%) with Saturation below 89% 33.6 3.6 28.7 1.3 Time(min.) with Saturation below 89% 146.0 15.6 124.7 5.6 Heart Rate Analysis End Tidal CO2 Analysis Min (bpm) Max (bpm) Average (bpm) TSP (mins) % of TSP Awake 55 81 65 Above 55 mmHg 0.0 0.0 NREM 54 74 63 50-55 mmHg 0.0 0.0 REM 59 74 65 45-50 mmHg 2.3 0.6 Overall 54 74 63 40-45 mmHg 260.4 71.2 35-40 mmHg 83.1 22.7 30-35 mmHg 17.0 4.7 Average ETCO2 0.1 Supplemental O2 Values Minimum O2 level: None Value Start Time End Time Gluing Machine Offbearer Comments Ms. Arana slept in the right, left and supine positions. No cardiac arrhythmia noted. Leg movements noted. No bruxism noted. Snoring was noted and scored as a 3 on a scale of 1 through 5. (0=no snoring, 5=snoring loud enough to be heard through a closed door or down the kahn way) Ms. Arana awoke to use the restroom 0 times during the night. Ms. Arana stated I slept as well as I do when I am in my own bed. The final report will be interpreted and signed by a sleep physician. The completed physician report will then be placed in the patient medical record. Therapy (cm H2O) 0 TIB (min.) 434.0 TST (min.) 365.5 Sleep Onset (min.) 49.5 REM Onset From Sleep (min.) 260.5 Sleep Efficiency % 84 Wakefulness (%) 16 Wakefulness (min.) 69.0 NREM 1 (%) 4 NREM 1 (min.) 15.5 NREM 2 (%) 59 NREM 2 (min.) 215.0 NREM 3 (%) 26 NREM 3 (min.) 96.5 REM (%) 11 REM (min.) 38.5 # Arousals 59 Arousal Index 10 # Snore 448 Snore Index 73.5 AHI 0.2 AHI Supine 1 AHI Non-Supine 0 NREM AHI 0.2 REM AHI 0.0 RDI 1.3 # Obstructive Apnea 0 # Central Apnea 0 # Mixed Apnea 0 # Hypopneas 1 RERAs 7 Total Respiratory Events 10 Time Below SpO2 89% (min.) 140.4 Mean NREM SpO2 (%) 89 Mean REM SpO2 (%) 89 Mean Sleep SpO2 (%) 89 Min NREM SpO2 (%) 86 Min REM SpO2 (%) 87 Position Supine (min.) 124.1 Position Non-supine (min.) 277.0 LM Index Sleep 30.2 LM Index NREM 32.8 LM Index REM 7.8 Mean Heart Rate (bpm) 63 Min Heart Rate (bpm) 54
--- NOTE | 2017-03-28 17:14 | POLYSOMNOGRAPH REPORT ---
[facility]ING P[facility] INTERPRETING PHYSICIAN: Navjot Hall MD MACHINE ROUGH ROUNDER: Mayito Guzman. Ms. Fan is a 66-year-old female who complains of restless legs, excessive daytime sleepiness and anemia. She generally feels fatigued during the day. She sent to the sleep lab to rule out sleep-disordered breathing. Her [place] sleepiness scale score on the evening of this study is 17. BMI is 32.11. Following the technical and digital specifications of the [place] [employer] (AASM) a standard diagnostic polysomnogram was performed monitoring EEG, EOG, EMG (chin and leg deviations), oxygen saturation, body position, digital video, respiratory effort and airflow. The sleep Stage and event scoring was based on the AASM Manual for the Scoring of Sleep and Associated Events 2007 edition. Apneas are defined as a drop in the peak thermal sensor excursion by >90% of baseline for at least 10 seconds. Hypopneas were scored using the 4% oxygen desaturation rule (4A-Medicare) and a decrease in the nasal pressure excursions by >30% of baseline for at least 10 seconds. Respiratory effort-related arousal (RERA's) is defined as a sequence of breaths lasting at least 10 seconds characterized by increasing respiratory effort or flattening of the nasal pressure waveform leading to an arousal from sleep when the sequence of breaths does not meet criteria for an apnea or hypopnea. Apnea Hypopnea index (AHI) is defined as the number of apneas and hypopneas occurring in an hour of sleep. Respiratory disturbance index (RDI) is defined as the number of apneas, hypopneas, and RERA's occurring in an hour of sleep. Ms. Fan's total sleep period time was 381.5 minutes. Total sleep time was 365.5 minutes. Sleep efficiency was 84%. Latency to sleep onset was 49.5 minutes with wake after sleep onset of 19 minutes. Total non-REM sleep time was 327 minutes. She spent 4% of that time in N1 sleep, 59% in N2 sleep and 26% in N3 sleep. REM latency was 260.5 minutes. Total REM sleep time was 38.5 minutes or 11% of total sleep time. There were 59 cortical arousals from sleep. Twenty-five of these arousals were spontaneous, 4 were due to respiratory events, 23 due to periodic limb movements of sleep and 7 were due to snoring. There were 184 periodic limb movements noted on this test. Limb movement index was 30.2 and limb movement with arousal index was 3.9. There were no central, obstructive or mixed apneas on this test. There is 1 hypopnea and 7 RERAs. Apnea-hypopnea index was 0.2, which is normal. There were 448 snoring events recorded. Total sleep time with snoring was 2.2%. Mean saturation during sleep was low at 89% with saturations as low as 86%. Saturations were less than 89% for 146 minutes of recorded time. There was no cardiac ectopy noted on this study. Heart rates ranged from a low of 54 beats per minute to a high of 74 beats per minute. End End-tidal CO2 was recorded on this test. End End-tidal CO2s were between 45 and 50 mmHg for 0.6% of total sleep period time, between 40 and 45 mmHg for 71.2%, between 35 and 40 mmHg for 22.7% and between 30 and 35 mmHg for 4.7% of total sleep period time. IMPRESSION AND PLAN: 1. A 66-year-old female without evidence of sleep apnea but significant nocturnal hypoxemia on this sleep study. This patient may benefit from oxygen therapy at bedtime. Nocturnal oximetry on oxygen should be performed to ensure hypoxemia resolves. 2. Should this patient's cause of her hypoxemia be unknown, she may require pulmonary function test and/or pulmonary consultation.
== END | disposition home or self-care (01) ==
LOC: C.NEUR 21:00
PROVIDERS: ATTEND Internal Medicine
DX: G47.33 Obstructive sleep apnea (adult) (pediatric) (principal); D50.9 Iron deficiency anemia, unspecified; G25.81 Restless legs syndrome

== ENCOUNTER 2017-03-24 14:10 | Emergency (ER) | payer OTHER ==
[~2017-03-24] VITALS: Ht 144.8 cm; Wt 73.1 kg
[~2017-03-24 14:10] MED LIST changes: -AMT10 PO; -ASPI1TAB48 PO; -ERGO500037 PO; -FLUT1INH PO; -FSM70 PO; -GABA1CAP4 PO; -HYDR-5688 PO; -LORA-741 PO; -LPT40 PO; -NTRGSL/4 UT; -OMEP40CA41 PO; -ONDA4TAB65 PO; -SERT-234 PO; -TIZA4CAP PO
[2017-03-24 14:17] VITALS: TEMP 36.7; Ht 144.8 cm; Wt 73.1 kg
--- NOTE | 2017-03-24 15:17 | EMERGENCY ROOM VISIT NOTE ---
History Report prepared by Yoli: Sheron Cutler Under the Supervision of: Dr. Dexter Lehman D.O. First contact with patient: 14:31 Chief Complaint: BLEEDING Stated Complaint: BLEEDING Nursing Triage Summary: pt reports surg to R side of head to have tendons removed DT chronic migraines , surg completed this AM . started bleeding at surg site around 1300 unable to control bleedig History of Present Illness The patient is a 66 year old female who presents to the Emergency Room with complaints of persistent bleeding starting 1300 today. She presents to the ED by EMS. The patient has had headaches and had surgery today at 0830 to take some tendons out from her head. [place] were placed at the surgical site and she was told to watch for bleeding. If she had any bleeding, she was instructed to apply pressure and call them. The blood was "gushing out" and she did not feel comfortable driving to their office so she called EMS and came to the ED. She reports headache. She denies any other symptoms. Source of History: patient Onset: 1300 today Position: head Quality: other (bleeding) Timing: other (persistent) Associated Symptoms: + headache Review of Systems See HPI for pertinent positives & negatives. A total of 10 systems reviewed and were otherwise negative. Past Medical & Surgical Medical Problems: (1) Acute gastric ulcer (2) Anxiety (3) Carotid stenosis (4) Chronic back pain (5) COPD (chronic obstructive pulmonary disease) (6) Gastroesophageal reflux disease (7) Hyperlipidemia (8) Kidney stone (9) Osteoarthritis (10) Osteoporosis Surgical Problems: (1) section (2) H/O dilation and curettage (3) History of hysterectomy (4) Hx of shoulder surgery (5) S/P carpal tunnel release Family History FHx: cancer FHx: diabetes FHx: heart disease FHx: hypertension FHx: seizures Myocardial infarction FATHER, Onset:45 Social History Smoking Status: Current Every Day Smoker Alcohol Use: none Drug Use: none Marital Status: Housing Status: lives alone Occupation Status: employed Current/Historical Medications Scheduled Alendronate Sodium (Alendronate Sodium), 70 MG PO WK Aspirin (Aspirin Low Dose), 81 MG PO QAM Atorvastatin (Atorvastatin Calcium), 40 MG PO QAM Ergocalciferol (Vitamin D 93692 Unit), 50,000 UNIT PO 2XWK Gabapentin (Gabapentin), 300 MG PO HS Nitroglycerin (Nitrostat), 0.4 MG UT PRN Omeprazole (Prilosec), 40 MG PO DAILY Sertraline (Zoloft), 150 MG PO HS Scheduled PRN Fluticasone Furoate-Vilanterol (Breo Ellipta), 2 PUFFS PO DAILY PRN for SOB/ Wheezing Hydrocodone/Acetaminophen 5MG/325MG (Planada 5MG/325MG), 1 TABLET PO Q4-6H PRN for Pain Lorazepam (Ativan), 0.5 MG PO Q6H PRN for Anxiety Ondansetron Hcl (Zofran), 8 MG PO Q6H PRN for Nausea Tizanidine Hcl (Zanaflex), 4 MG PO Q8 PRN for MUSCLE SPASMS Allergies Coded Allergies: Iodinated Diagnostic Agents (Verified Allergy, Unknown, ., 09/18/16) Penicillins (Verified Allergy, Unknown, 09/18/16) Benzalkonium Chloride (Verified Adverse Reaction, Intermediate, VERTIGO, ) Ofloxacin (Verified Adverse Reaction, Intermediate, VERTIGO, 09/18/16) Corticosteroids (Verified Adverse Reaction, Unknown, jittery and hyper, ) Physical Exam Vital Signs Date Time Temp Pulse Resp B/P (MAP) Pulse Ox O2 Delivery O2 Flow Rate FiO2 03/24/17 14:17 36.7 83 20 181/66 96 Room Air Physical Exam CONSTITUTIONAL/VITAL SIGNS: Reviewed / noted above. GENERAL: Non-toxic in appearance. INTEGUMENTARY: Warm, dry, and [place]. HEAD: Normocephalic. There are 2 nearly saturated trauma dressings on the right side of the head. These were removed and there was a small incision in the right temporal region without any active bleeding. No edema or swelling noted. EYES: without scleral icterus or trauma. ENT/OROPHARYNX: clear and moist. LYMPHADENOPATHY/NECK: Is supple without lymphadenopathy or meningismus. RESPIRATORY: Lungs clear and equal. CARDIOVASCULAR: Regular rate and rhythm. GI/ABDOMEN: Soft and nontender. No organomegaly or pulsatile mass. No rebound or guarding. Normal bowel sounds. EXTREMITIES: Warm and well perfused. BACK: No CVA tenderness. NEUROLOGICAL: Intact without focal deficits. PSYCHIATRIC: normal affect. MUSCULOSKELETAL: Normally developed with good muscle tone. Medical Decision & Procedures ED Course 1432: Previous medical records were reviewed. The patient was evaluated in room A3. A complete history and physical examination was performed. 1453: I discussed the patient's case with a nurse at [facility]. She recommend the patient be sent over to their office. 1458: On reevaluation, the patient is resting comfortably. I discussed the results and findings with the patient. She verbalized agreement of the treatment plan. She was discharged to go to Dr. Real' office. Medical Decision Differential diagnosis: hemorrhage, anemia, bleeding disorder. This is a 66-year-old female who presents to the ED with a chief complaint of bleeding from her temporal artery. The patient had a temporal artery biopsy earlier today. When she was at home, the bleeding started. The patient was brought in here by EMS. There was 2 trauma dressings that were saturated on the right side. Pressure dressing was in place. Taking down the dressing revealed no obvious bleeding at the surgical site. I spoke with the surgical service and the patient will be seen by them in their office at this time. The patient was felt to be stable for discharge. Medication Reconcilliation Current Medication List: was personally reviewed by me Blood Pressure Screening Patient's blood pressure: Elevated blood pressure Blood pressure disposition: Referred to PCP Consults Time Called: 1434 Consulting Physician: nurse at [facility] Returned Call: [phone] I discussed the patient's case with a nurse at [facility]. She recommend the patient be sent over to their office. Impression Primary Impression: Bleeding Scribe Attestation The scribe's documentation has been prepared under my direction and personally reviewed by me in its entirety. I confirm that the note above accurately reflects all work, treatment, procedures, and medical decision making performed by me. Departure Information Dispostion Home / Self-Care Referrals Aureliano Hickey PA-C (PCP) Patient Instructions My [facility] Additional Instructions See Dr. Real now. Go to the office, they are expecting to see their at this time.
[2017-03-24 15:23] VITALS: BP 176/68; PULSE 78; O2SAT 97
[2017-05-29] MEDS ORDERED: HYDR-5688 PO (09:06)
[2017-05-29] MEDS ORDERED: NTRGSL/4 UT (10:07)
[2017-05-29] MEDS ORDERED: TIZA4CAP PO (10:16)
[2017-05-29] MEDS ORDERED: GABA1CAP4 PO (11:15)
== END 2017-03-24 15:25 | disposition home or self-care (01) ==
LOC: EDBD 14:10 → C.EDA 14:11
DX: R58 Hemorrhage, not elsewhere classified (principal); E78.5 Hyperlipidemia, unspecified; F41.9 Anxiety disorder, unspecified; J44.9 Chronic obstructive pulmonary disease, unspecified; G89.29 Other chronic pain; K21.9 Gastro-esophageal reflux disease without esophagitis; M81.0 Age-related osteoporosis without current pathological fracture; M19.90 Unspecified osteoarthritis, unspecified site; F17.200 Nicotine dependence, unspecified, uncomplicated; Z87.442 Personal history of urinary calculi; Z90.710 Acquired absence of both cervix and uterus; Z79.82 Long term (current) use of aspirin; Z79.899 Other long term (current) drug therapy; Z80.9 Family history of malignant neoplasm, unspecified; Z83.3 Family history of diabetes mellitus; Z82.49 Family history of ischemic heart disease and other diseases of the circulatory system; Z82.0 Family history of epilepsy and other diseases of the nervous system

== ENCOUNTER → 2017-04-27 | Outpatient (CLI) | payer OTHER ==
[~2017-04-27] MED LIST changes: +AMT10 PO; +ASPI1TAB48 PO; +ERGO500037 PO; +FLUT1INH PO; +FSM70 PO; +GABA1CAP4 PO; +HYDR-5688 PO; +LORA-741 PO; +LPT40 PO; -MORP-158 PO; +NTRGSL/4 UT; +OMEP40CA41 PO; +ONDA4TAB65 PO; +SERT-234 PO; +TIZA4CAP PO; -VTMD PO
--- NOTE | 2017-04-27 12:43 | MAMMOGRAPHY REPORT ---
BILATERAL DIGITAL SCREENING MAMMOGRAM WITH CAD: 04/27/2017 CLINICAL HISTORY: Routine screening. Patient has no complaints. TECHNIQUE: Bilateral CC and MLO views were obtained. Current study was also evaluated with a Compute r Aided Detection (CAD) system. COMPARISON: Comparison is made to exams dated: 04/26/2016 mammogram, 04/21/2015 mammogram, 09/05/2013 karina mogram, 08/27/2012 mammogram, 08/26/2011 mammogram, and 08/24/2010 mammogram - [facility] . BREAST COMPOSITION: There are scattered areas of fibroglandular density in both breasts. FINDINGS: There is stable asymmetry in the lateral left breast, a few benign rim calcifications in th e left breast, and stable punctate benign-appearing right breast microcalcifications. No new suspici ous mass, architectural distortion or cluster of microcalcifications is seen. IMPRESSION: ACR BI-RADS CATEGORY 1: NEGATIVE There is no mammographic evidence of malignancy. A 1 year screening mammogram is recommended. The pa tient will receive written notification of the results. Approximately 10% of breast cancers are not detected with mammography. A negative mammographic report should not delay biopsy if a clinically suggestive mass is present. Leila Camara M.D. ay/:04/27/2017 10:32:48 Instruction Librarian: Suri ADAMS(Yamilka)(Ken)(BD), [facility] letter sent: Normal 1/2 BI-RADS Code: ACR BI-RADS Category 1: Negative
== END | disposition home or self-care (01) ==
LOC: C.MAMM 09:51
PROVIDERS: ATTEND Physician Assistant
DX: Z12.31 Encounter for screening mammogram for malignant neoplasm of breast (principal)

== ENCOUNTER 2017-05-29 11:16 | Emergency (ER) | payer OTHER ==
[~2017-05-29] VITALS: Ht 149.9 cm; Wt 83.8 kg
[2017-05-29 11:16] VITALS: TEMP 37; Ht 149.9 cm; Wt 83.8 kg
[~2017-05-29 11:16] MED LIST changes: -AMT10 PO; -ASPI1TAB48 PO; -ERGO500037 PO; -FLUT1INH PO; -FSM70 PO; -LORA-741 PO; -LPT40 PO; -OMEP40CA41 PO; -ONDA4TAB65 PO; -SERT-234 PO
[2017-05-29 11:23] VITALS: O2SAT 93
[2017-05-29] MEDS ORDERED: SODIUM CHLORIDE 0.9% 1000ML 1,000 ML IV STA (11:41)
[2017-05-29] MEDS ORDERED: ONDANSETRON INJ 2 MG/ML 2 ML VIAL IV STA (11:41)
--- NOTE | 2017-05-29 11:49 | EMERGENCY ROOM VISIT NOTE ---
History Report prepared by Yoli: Audrey Hanna Under the Supervision of: Dr. Blake Vazquez D.O. First contact with patient: 11:39 Chief Complaint: CHEST PAIN Stated Complaint: CHEST PAIN History of Present Illness Chest pain. The patient arrived at the emergency department for evaluation of chest pain. The patient arrived at the emergency department by ambulance. She developed chest pain while she was exerting herself at work. She was using a mop to clean floors. The patient describes chest pain which was acute over the left side of the chest. It is nonradiating. It is not associated with shortness of breath or lower extremity swelling. The patient took multiple doses of her nitroglycerin as well as 4 baby aspirin prior to arrival without relief. The patient states the pain is mildly improved at this time but is unsure if it is related to taking nitroglycerin. The patient was placed on oxygen. At this time her pain is still rated at moderate. The patient's pain is also somewhat worsened with movement as well as deep breathing. The patient does not a history of pulmonary embolism as far she knows. She has not seen her primary care physician for this pain. Source of History: patient Onset: today at work Position: chest Symptom Intensity: moderate Modifying Factors (Worsening): breathing, movement Review of Systems See HPI for pertinent positives & negatives. A total of 10 systems reviewed and were otherwise negative. Past Medical & Surgical Medical Problems: (1) Acute gastric ulcer (2) Anxiety (3) Carotid stenosis (4) Chronic back pain (5) COPD (chronic obstructive pulmonary disease) (6) Gastroesophageal reflux disease (7) Hyperlipidemia (8) Kidney stone (9) Osteoarthritis (10) Osteoporosis Surgical Problems: (1) section (2) H/O dilation and curettage (3) History of hysterectomy (4) Hx of shoulder surgery (5) S/P carpal tunnel release Family History FHx: cancer FHx: diabetes FHx: heart disease FHx: hypertension FHx: seizures Myocardial infarction FATHER, Onset:45 Social History Smoking Status: Current Every Day Smoker Alcohol Use: none Drug Use: none Marital Status: Housing Status: lives alone Occupation Status: employed Current/Historical Medications Scheduled Alendronate Sodium (Alendronate Sodium), 70 MG PO WK Amitriptyline HCl (Amitriptyline HCl), 20 MG PO HS Aspirin (Aspirin Low Dose), 81 MG PO QAM Atorvastatin (Atorvastatin Calcium), 40 MG PO QAM Ergocalciferol (Vitamin D 19424 Unit), 50,000 UNIT PO 2XWK Gabapentin (Gabapentin), 300 MG PO HS Nitroglycerin (Nitrostat), 0.4 MG UT PRN Omeprazole (Prilosec), 40 MG PO DAILY Sertraline (Zoloft), 150 MG PO HS Scheduled PRN Fluticasone Furoate-Vilanterol (Breo Ellipta), 2 PUFFS PO DAILY PRN for SOB/ Wheezing Hydrocodone/Acetaminophen 5MG/325MG ([place] 5MG/325MG), 1 TABLET PO Q4-6H PRN for Pain Lorazepam (Ativan), 0.5 MG PO Q6H PRN for Anxiety Ondansetron Hcl (Zofran), 8 MG PO Q6H PRN for Nausea Tizanidine Hcl (Zanaflex), 4 MG PO Q8 PRN for MUSCLE SPASMS Allergies Coded Allergies: Iodinated Diagnostic Agents (Verified Allergy, Unknown, ., 05/29/17) Penicillins (Verified Allergy, Unknown, 05/29/17) Benzalkonium Chloride (Verified Adverse Reaction, Intermediate, VERTIGO, 05/29/17) Ofloxacin (Verified Adverse Reaction, Intermediate, VERTIGO, 05/29/17) Corticosteroids (Verified Adverse Reaction, Unknown, jittery and hyper, ) Physical Exam Vital Signs Date Time Temp Pulse Resp B/P (MAP) Pulse Ox O2 Delivery O2 Flow Rate FiO2 05/29/17 18:24 71 16 147/63 94 05/29/17 17:30 77 25 148/78 92 Room Air 05/29/17 17:00 63 16 161/80 95 Room Air 05/29/17 16:00 68 16 151/63 94 Room Air 05/29/17 15:09 62 22 148/64 94 Room Air 05/29/17 14:41 66 16 146/72 98 Room Air 05/29/17 12:35 05/29/17 12:24 66 05/29/17 12:13 68 16 130/67 98 Room Air 05/29/17 11:25 96 Room Air 05/29/17 11:23 93 Room Air 05/29/17 11:16 37.0 70 20 160/65 93 Room Air Physical Exam GENERAL: Patient is awake alert. Patient appears mildly anxious and uncomfortable. EYES: The conjunctivae are clear. The pupils are round and reactive. EARS, NOSE, MOUTH AND THROAT: The nose is without any evidence of any deformity. Mucous membranes are moist tongue is midline NECK: The neck is nontender and supple. RESPIRATORY: Normal respiratory effort is noted there is no evidence of wheezing rhonchi or rales CARDIOVASCULAR: Regular rate and rhythm noted there no murmurs rubs or gallops normal S1 normal S2 GASTROINTESTINAL: The abdomen is soft. Bowel sounds are present in all quadrants. Abdomen is nontender MUSCULOSKELETAL/EXTREMITIES: There is no evidence of gross deformity full range of motion is noted in the hips and shoulders SKIN: There is no obvious evidence of any rash. There is no pedal edema. There is no calf tenderness to palpation. NEUROLOGIC: Patient is awake alert and oriented x3. Medical Decision & Procedures ER Provider Diagnostic Interpretation: Radiology results as stated below per my review and radiologist interpretation: CHEST ONE VIEW PORTABLE CLINICAL HISTORY: Chest pain. COMPARISON STUDY: Chest radiograph November 11, 2016. FINDINGS: Minimal left basilar opacity is suggestive of atelectasis. There is no pneumothorax or pleural effusion. No evidence of pulmonary edema. Cardiomediastinal silhouette is normal. IMPRESSION: No acute cardiopulmonary findings. Electronically signed by: Gabriel Osborne M.D. 05/29/2017 12:21 PM Dictated Date/Time: 05/29/2017 12:[address] ANGIOGRAPHY OF THE CHEST, PULMONARY EMBOLUS PROTOCOL CLINICAL HISTORY: Chest pain. COMPARISON STUDY: Chest CT October 19, 2015 and chest radiograph performed earlier today. TECHNIQUE: The patient was premedicated for an IV dye allergy as per the ED protocol. Following IV administration of 93 mL of Optiray-320, helical axial images of the chest were obtained utilizing the pulmonary embolus protocol. Maximal intensity projections and sagittal and coronal reformats were viewed on an independent 3D workstation. IV contrast was administered without complication. A dose lowering technique was utilized adhering to the principles of ALARA. CT DOSE: 482.70 mGycm FINDINGS: No pulmonary emboli are identified. There is no evidence of thoracic aortic dissection. The heart is mildly enlarged. There is no pneumothorax or pleural effusion. Bilateral lower lobe opacities suggest atelectasis. There is no consolidation to suggest pneumonia. A 4 mm left lower lobe nodule shown image 127 is unchanged from earlier studies. This is benign given stability. Bony thorax and upper abdomen are unremarkable on this unenhanced exam. Mild biliary ductal dilatation is unchanged and likely related to cholecystectomy. There is moderate atherosclerotic plaque of the thoracic aorta. IMPRESSION: 1. No pulmonary emboli identified. 2. No acute intrathoracic findings. 3. Mild cardiomegaly. Electronically signed by: Gabriel Osborne M.D. 05/29/2017 2:38 PM Dictated Date/Time: 05/29/2017 2:29 PM Laboratory Results 05/29/17 11:02 Red Blood Count 4.07, Mean Corpuscular Volume 91.4, Mean Corpuscular Hemoglobin 31.0, Mean Corpuscular Hemoglobin Concent 33.9, Mean Platelet Volume 10.3, Neutrophils (%) (Auto) 57.4, Lymphocytes (%) (Auto) 32.0, Monocytes (%) (Auto) 7.8, Eosinophils (%) (Auto) 1.5, Basophils (%) (Auto) 0.8, Neutrophils # (Auto) 6.51, Lymphocytes # (Auto) 3.64, Monocytes # (Auto) 0.89, Eosinophils # (Auto) 0.17, Basophils # (Auto) 0.09 05/29/17 11:02 Test 05/29/17 11:02 05/29/17 12:04 05/29/17 16:15 White Blood Count 11.36 K/uL (4.8-10.8) Red Blood Count 4.07 M/uL (4.2-5.4) Hemoglobin 12.6 g/dL (12.0-16.0) Hematocrit 37.2 % (37-47) Mean Corpuscular Volume 91.4 fL (80-100) Mean Corpuscular Hemoglobin 31.0 pg (25-34) Mean Corpuscular Hemoglobin Concent 33.9 g/dl (32-36) Platelet Count 228 K/uL (130-400) Mean Platelet Volume 10.3 fL (7.4-10.4) Neutrophils (%) (Auto) 57.4 % Lymphocytes (%) (Auto) 32.0 % Monocytes (%) (Auto) 7.8 % Eosinophils (%) (Auto) 1.5 % Basophils (%) (Auto) 0.8 % Neutrophils # (Auto) 6.51 K/uL (1.4-6.5) Lymphocytes # (Auto) 3.64 K/uL (1.2-3.4) Monocytes # (Auto) 0.89 K/uL (0.11-0.59) Eosinophils # (Auto) 0.17 K/uL (0-0.5) Basophils # (Auto) 0.09 K/uL (0-0.2) RDW Standard Deviation 43.8 fL (36.4-46.3) RDW Coefficient of Variation 13.0 % (11.5-14.5) Immature Granulocyte % (Auto) 0.5 % Immature Granulocyte # (Auto) 0.06 K/uL (0.00-0.02) Prothrombin Time 10.0 SECONDS (9.0-12.0) Prothromb Time International Ratio 0.9 (0.9-1.1) Activated Partial Thromboplast Time 29.6 SECONDS (21.0-31.0) Partial Thromboplastin Ratio 1.1 Anion Gap 7.0 mmol/L (3-11) Est Creatinine Clear Calc Drug Dose 63.3 ml/min Estimated GFR () 86.4 Estimated GFR (Non- 74.6 BUN/Creatinine Ratio 19.1 (10-20) Calcium Level 9.3 mg/dl (8.5-10.1) Total Bilirubin 0.2 mg/dl (0.2-1) Direct Bilirubin mg/dl (0-0.2) Aspartate Amino Transf (AST/SGOT) 25 U/L (15-37) Alanine Aminotransferase (ALT/SGPT) 25 U/L (12-78) Alkaline Phosphatase 108 U/L (45-117) Total Creatine Kinase 120 U/L (26-192) Creatine Kinase MB < 0.5 ng/ml (0.5-3.6) Creatine Kinase MB Ratio (0-3.0) Total Protein 7.2 gm/dl (6.4-8.2) Albumin 3.6 gm/dl (3.4-5.0) Lipase 119 U/L (73-393) Chemistry Specimen Hemolysis Bedside D-Dimer > 450 ng/mlFEU (0-450) Troponin I < 0.015 ng/ml (0-0.045) Laboratory results per my review. Medications Administered Medications (Trade) Dose Ordered Sig/[place] Route Start Time Stop Time Status Last Admin Dose Admin Sodium Chloride 1,000 ml @ 999 mls/hr Q1H1M STAT IV 05/29/17 11:41 05/29/17 12:41 DC 05/29/17 11:41 999 MLS/HR Morphine Sulfate (MoRPHine SULFATE INJ) 4 mg Q15M PRN IV 05/29/17 11:45 05/29/17 19:17 DC 05/29/17 15:12 4 MG Ondansetron HCl (Zofran Inj) 4 mg NOW STAT IV 05/29/17 11:41 05/29/17 11:44 DC 05/29/17 12:06 4 MG Dexamethasone Sodium Phosphate (Decadron Inj) 10 mg NOW ONCE IV 05/29/17 12:30 05/29/17 12:31 DC 05/29/17 12:39 10 MG Diphenhydramine HCl (Benadryl Inj) 25 mg NOW STAT IV 05/29/17 12:27 05/29/17 12:29 DC 05/29/17 12:39 25 MG Famotidine (Pepcid 20mg/100 ml) 20 mg ONE STAT IV 05/29/17 12:27 05/29/17 12:29 DC 05/29/17 12:39 20 MG ECG Indication: chest pain Rate (beats per minute): 74 Rhythm: sinus rhythm Findings: no acute ischemic change, no ectopy Change: no significant change (11/11/2016) Change: Repeat EKG shows normal sinus rhythm, 66 beats per minute no ectopy, no change from previous EKG. ED Course 1139: The patient was evaluated in room B12B. A complete history and physical examination were performed. 1141: Ordered Zofran Inj 4 mg IV, Sodium Chloride 1000 ml @ 999 mls/hr IV. 1145: Ordered Morphine Sulfate 4 mg IV. 1226: I reevaluated the patient and she is resting comfortably. 1227: Ordered Famotidine 20 mg IV, Benadryl Inj 25 mg IV. 1230: Ordered Decadron Inj 10 mg IV. 1442: I reevaluated the patient and she is resting comfortably. 1732: I reevaluated the patient and she is resting comfortably. I discussed the exam findings with her and I discussed the treatment plan she verbalized complete understanding and agreement. She is ready for discharge. Medical Decision Prior records/ancillary studies reviewed. Triage Nursing notes reviewed. The patient's history was concerning for chest pain. Differential diagnosis: Etiologies such as cardiac ischemia, aortic dissection, pulmonary embolism, pneumonia, pneumothorax, musculoskeletal, infections, pericarditis, myocarditis , esophageal rupture, gastrointestinal, as well as others were entertained. The patient is a 66-year-old female who presented to the emergency department for an evaluation of chest pain. The chest pain was very significant appeared to be pleuritic and reproducible nature. The patient states that she has aspirin and nitroglycerin at home and she took both these medications without relief. The patient is treated with IV fluids IV pain medicine and IV antiemetics in emergency department. On subsequent reevaluation she was only minimally improved. The patient had an elevated d-dimer. This was ordered because of the pleuritic nature of her chest pain. The CT the chest did not show any acute disease. The patient had multiple EKGs in the emergency department and multiple troponins. Her EKG did not show any acute ischemic changes and her troponin continued to be negative. I discussed the patient's laboratory and radiographic studies with her. I also discussed the limitations of the emergency department chest pain with her. She was encouraged to rest and avoid any strenuous activity. She was also encouraged to continue all medications as prescribed. She was also encouraged to follow-up with her doctor as soon as possible for further evaluation but return to the emergency department immediately if symptoms change worsen or the need arises. Medication Reconcilliation Current Medication List: was personally reviewed by me Blood Pressure Screening Patient's blood pressure: Elevated blood pressure Blood pressure disposition: Elevated BP felt to be situational, Did not require urgent referral Impression Primary Impression: Chest pain Additional Impression: Costochondritis Scribe Attestation The scribe's documentation has been prepared under my direction and personally reviewed by me in its entirety. I confirm that the note above accurately reflects all work, treatment, procedures, and medical decision making performed by me. Departure Information Dispostion Home / Self-Care Referrals Aureliano Hickey PA-C (PCP) Forms Call Back Authorization, HOME CARE DOCUMENTATION FORM, IMPORTANT VISIT INFORMATION, Work Instructions Patient Instructions ED Chest Pain Atypical Unkn Cause, My [facility] Additional Instructions Continue using Motrin and Tylenol for pain. Call your family to schedule a follow-up appointment. Rest and avoid any strenuous activity. Discussed the possibility with your family doctor that you may require further studies such as a stress test to further evaluate the cause her pain. Return to the emergency department immediately symptoms change worsen or the need arises. Problem Qualifiers Primary Impression: Chest pain Chest pain type: unspecified Qualified Codes: R07.9 - Chest pain, unspecified
[2017-05-29] MEDS ORDERED: AMT10 PO (11:52)
[2017-05-29 11:57] LABS: INR 0.9 (0.9-1.1); PARTIAL THROMBOPLASTIN RATIO 1.1
[2017-05-29 11:58] LABS: BASO % 0.8 %; BASO ABS # 0.09 K/uL (0-0.2); COMPLETE YES; EOS % 1.5 %; HEMATOCRIT 37.2 % (37-47); IG% 0.5 %; LYMPH ABS # 3.64 K/uL (1.2-3.4); MEAN CELL VOLUME 91.4 fL (80-100); MEAN CORPUSCULAR HGB CONC 33.9 g/dl (32-36); MEAN PLATELET VOLUME 10.3 fL (7.4-10.4); MONO % 7.8 %; NEUT % 57.4 %; PLATELET COUNT 228 K/uL (130-400); RED BLOOD COUNT 4.07 M/uL (4.2-5.4); WHITE BLOOD COUNT 11.36 K/uL (4.8-10.8)
[2017-05-29] MEDS: MoRPHine SULFATE 4 MG/ML 1 ML CARP\\VIAL IV PRN ×2 (12:06→15:12)
[2017-05-29 12:16] LABS: ALKALINE PHOSPHATASE 108 U/L (45-117); ALT/SGPT 25 U/L (12-78); AST/SGOT 25 U/L (15-37); BLOOD UREA NITROGEN 16 mg/dl (7-18); BUN/CREATININE RATIO 19.1 (10-20); CALCIUM 9.3 mg/dl (8.5-10.1); CARBON DIOXIDE 25 mmol/L (21-32); CHLORIDE 107 mmol/L (98-107); CREATININE 0.82 mg/dl (0.60-1.20); GLUCOSE 91 mg/dl (70-99); POTASSIUM 4.4 mmol/L (3.5-5.1); SODIUM 139 mmol/L (136-145)
--- NOTE | 2017-05-29 12:22 | DIAGNOSTIC IMAGING REPORT ---
CHEST ONE VIEW PORTABLE CLINICAL HISTORY: Chest pain. COMPARISON STUDY: Chest radiograph November 11, 2016. FINDINGS: Minimal left basilar opacity is suggestive of atelectasis. There is no pneumothorax or pleural effusion. No evidence of pulmonary edema. Cardiomediastinal silhouette is normal. IMPRESSION: No acute cardiopulmonary findings. Electronically signed by: Gabriel Osborne M.D. 05/29/2017 12:21 PM Dictated Date/Time: 05/29/2017 12:18 PM
[2017-05-29] MEDS ORDERED: FAMOTIDINE 20MG/102 ML D5W IV STA (12:27)
[2017-05-29] MEDS ORDERED: DiphenhydrAMINE HCL 50 MG/ML VIAL IV STA (12:27)
[2017-05-29] MEDS ORDERED: DEXAMETHASONE SOD INJ 10 MG/ML VIAL IV ONE (12:30)
[2017-05-29] MEDS ORDERED: OPTIRAY 320 IV PRN (12:45)
[2017-05-29] MEDS ORDERED: FSM70 PO (13:12)
[2017-05-29] MEDS ORDERED: LORA-741 PO (13:12)
--- NOTE | 2017-05-29 14:39 | DIAGNOSTIC IMAGING REPORT ---
CT ANGIOGRAPHY OF THE CHEST, PULMONARY EMBOLUS PROTOCOL CLINICAL HISTORY: Chest pain. COMPARISON STUDY: Chest CT October 19, 2015 and chest radiograph performed earlier today. TECHNIQUE: The patient was premedicated for an IV dye allergy as per the ED protocol. Following IV administration of 93 mL of Optiray-320, helical axial images of the chest were obtained utilizing the pulmonary embolus protocol. Maximal intensity projections and sagittal and coronal reformats were viewed on an independent 3D workstation. IV contrast was administered without complication. A dose lowering technique was utilized adhering to the principles of ALARA. CT DOSE: 482.70 mGycm FINDINGS: No pulmonary emboli are identified. There is no evidence of thoracic aortic dissection. The heart is mildly enlarged. There is no pneumothorax or pleural effusion. Bilateral lower lobe opacities suggest atelectasis. There is no consolidation to suggest pneumonia. A 4 mm left lower lobe nodule shown image 127 is unchanged from earlier studies. This is benign given stability. Bony thorax and upper abdomen are unremarkable on this unenhanced exam. Mild biliary ductal dilatation is unchanged and likely related to cholecystectomy. There is moderate atherosclerotic plaque of the thoracic aorta. IMPRESSION: 1. No pulmonary emboli identified. 2. No acute intrathoracic findings. 3. Mild cardiomegaly. Electronically signed by: Gabriel Osborne M.D. 05/29/2017 2:38 PM Dictated Date/Time: 05/29/2017 2:29 PM
[2017-05-29] MEDS ORDERED: SERT-234 PO (14:51)
[2017-05-29] MEDS ORDERED: ONDA4TAB65 PO (14:51)
[2017-05-29] MEDS ORDERED: ERGO500037 PO (14:53)
[2017-05-29] MEDS ORDERED: ASPI1TAB48 PO (15:01)
[2017-05-29] MEDS ORDERED: FLUT1INH PO (15:42)
[2017-05-29] MEDS ORDERED: LPT40 PO (15:59)
[2017-05-29] MEDS ORDERED: OMEP40CA41 PO (15:59)
[2017-05-29 18:24] VITALS: BP 147/63; PULSE 71; O2SAT 94
== END 2017-05-29 18:26 | disposition home or self-care (01) ==
LOC: EDBD 11:16 → C.EDB 11:17
DX: M94.0 Chondrocostal junction syndrome [Tietze] (principal); F41.9 Anxiety disorder, unspecified; G89.29 Other chronic pain; M54.9 Dorsalgia, unspecified; J44.9 Chronic obstructive pulmonary disease, unspecified; K21.9 Gastro-esophageal reflux disease without esophagitis; E78.5 Hyperlipidemia, unspecified; Z87.442 Personal history of urinary calculi; M19.90 Unspecified osteoarthritis, unspecified site; M81.0 Age-related osteoporosis without current pathological fracture; Z90.710 Acquired absence of both cervix and uterus; Z80.9 Family history of malignant neoplasm, unspecified; Z83.3 Family history of diabetes mellitus; Z82.49 Family history of ischemic heart disease and other diseases of the circulatory system; Z82.0 Family history of epilepsy and other diseases of the nervous system; F17.210 Nicotine dependence, cigarettes, uncomplicated; Z79.82 Long term (current) use of aspirin; Z79.899 Other long term (current) drug therapy

== ENCOUNTER → 2017-06-01 | Outpatient (CLI) | payer OTHER ==
[~2017-06-01] MED LIST changes: +AMT10 PO; +ASPI1TAB48 PO; +ERGO500037 PO; +FLUT1INH PO; +FSM70 PO; +LORA-741 PO; +LPT40 PO; +OMEP40CA41 PO; +ONDA4TAB65 PO; +SERT-234 PO
--- NOTE | 2017-06-01 14:36 | DIAGNOSTIC IMAGING REPORT ---
LUMBAR SPINE MRI HISTORY: LOW BACK PAIN TECHNIQUE: Multiplanar multisequence MRI of the lumbar spine was performed without the use of contrast. COMPARISON: Lumbar spine 02/18/2016. Lumbar spine MRI 07/04/2011. FINDINGS: For the purpose of the report the L5-S1 disc space will be located on axial image 23 of 25. Alignment and curvature are intact. No fracture or subluxation. No significant disc space narrowing. Moderate facet osteoarthritis at L4-5 and L5-S1 which has progressed. There is mild marrow and soft tissue edema surrounding the facets at these locations. Tiny synovial cyst extending posteriorly from the right L4-L5 facet. L1-L2: No significant central canal or neural foraminal narrowing. L2-L3: No significant central canal or neural foraminal narrowing. L3-L4: No significant central canal or neural foraminal narrowing. L4-L5: Tiny broad-based posterior disc bulge without significant central canal or neural foraminal narrowing. There is also mild facet and ligamentum hypertrophy. L5-S1: No significant central canal narrowing. No right-sided neural foraminal narrowing. There is moderate left-sided neural foraminal narrowing due to the tiny asymmetric disc bulge and focal ligamentum hypertrophy at the left facet. This is best seen on axial image 23 of 25. This abuts and slightly displaces the transiting left S1 nerve root. This focal area of ligamentum hypertrophy measures 6 mm in thickness. IMPRESSION: 1. Progressive moderate osteoarthritis at the L4-L5 and L5-S1 facets. 2. There is also focal hypertrophy of the left ligamentum flavum at the L5-S1 level. This abuts and slightly displaces the transiting left S1 nerve root and results in moderate left neural foraminal narrowing at L5-S1. 3. No significant disc space narrowing. No disc herniations. Electronically signed by: Bello Vivas M.D. 06/01/2017 2:34 PM Dictated Date/Time: 06/01/2017 2:23 PM
== END | disposition home or self-care (01) ==
LOC: C.MRI 13:25
PROVIDERS: ATTEND Physician Assistant Medical
DX: M47.897 Other spondylosis, lumbosacral region (principal); M54.5 Low back pain; M46.1 Sacroiliitis, not elsewhere classified; G89.4 Chronic pain syndrome; M54.16 Radiculopathy, lumbar region; M54.41 Lumbago with sciatica, right side; M54.42 Lumbago with sciatica, left side; M54.6 Pain in thoracic spine

== ENCOUNTER 2017-06-30 09:05 | Observation (INO) | payer OTHER ==
[~2017-06-30] VITALS: Ht 149.9 cm; Wt 72.0 kg
[2017-06-30] MEDS ORDERED: MoRPHine SULFATE 10 MG/ML CARP/VIAL IV STA (10:10)
[2017-06-30] MEDS ORDERED: ONDANSETRON INJ 2 MG/ML 2 ML VIAL IV STA (10:11)
[2017-06-30 10:13] LABS: HEMATOCRIT 39.2 % (37-47); MEAN CELL VOLUME 92.2 fL (80-100); MEAN CORPUSCULAR HEMOGLOBIN 31.1 pg (25-34); MEAN CORPUSCULAR HGB CONC 33.7 g/dl (32-36); MEAN PLATELET VOLUME 10.4 fL (7.4-10.4); PLATELET COUNT 248 K/uL (130-400); RED BLOOD COUNT 4.25 M/uL (4.2-5.4); WHITE BLOOD COUNT 10.29 K/uL (4.8-10.8)
[2017-06-30 10:21] LABS: CALCIUM 8.8 mg/dl (8.5-10.1); CREATININE 0.89 mg/dl (0.60-1.20); POTASSIUM 4.3 mmol/L (3.5-5.1)
--- NOTE | 2017-06-30 10:21 | EMERGENCY ROOM VISIT NOTE ---
History Report prepared by Yoli: Jesus Belle Under the Supervision of: Dr. Dexter Dupree M.D. First contact with patient: 10:02 Chief Complaint: CHEST PAIN Stated Complaint: CHEST PAIN Nursing Triage Summary: patient arrived by ambulance ALS after a sudden onset of stabbing sharp chest pain in her left chest with radiation into her left arm. Patient states she was sitting in her care when this pain started around 0750am. Patient also c/o shortness of breath and slight nausea. Patient given 2 nitro sprays with no relief still rates her pain a 9/10 patient also recieved 324 of baby aspirin prior to arrival. Patient was seen here recently with same symptoms. Denies any cardiac history. History of Present Illness The patient is a 66 year old female who presents to the Emergency Room with complaints of constant chest pain starting this morning around 0750. The patient states that the pain started this morning while sitting in her car, and the pain is worse with deep inspiration. The patient states that she took some nitro prior to arrival, and it did not help. She states that she had similar chest pain two weeks ago as well. She notes that she smokes a pack of cigarettes per day, and she is not diabetic. She additionally is complaining of abdominal pain. Source of History: patient Onset: 0750 Position: chest Timing: constant Modifying Factors (Worsening): other (deep inspiration) Associated Symptoms: + abdominal pain Review of Systems See HPI for pertinent positives & negatives. A total of 10 systems reviewed and were otherwise negative. Past Medical & Surgical Medical Problems: (1) Anxiety (2) Carotid stenosis (3) Chronic back pain (4) COPD (chronic obstructive pulmonary disease) (5) Gastroesophageal reflux disease (6) Hyperlipidemia (7) Osteoarthritis (8) Osteoporosis Surgical Problems: (1) section (2) H/O dilation and curettage (3) History of hysterectomy (4) Hx of shoulder surgery (5) S/P carpal tunnel release Family History FHx: cancer FHx: diabetes FHx: heart disease FHx: hypertension FHx: seizures Myocardial infarction FATHER, Onset:45 Social History Smoking Status: Current Every Day Smoker Alcohol Use: none Drug Use: none Marital Status: Housing Status: lives alone Occupation Status: employed Current/Historical Medications Scheduled Alendronate Sodium (Alendronate Sodium), 70 MG PO WK Amitriptyline HCl (Amitriptyline HCl), 20 MG PO HS Ascorbic Acid (Vitamin C), 1 TAB PO DAILY Aspirin (Aspirin Low Dose), 81 MG PO QAM Atorvastatin (Lipitor), 1 TAB PO DAILY Calcium Carbonate (Calcium 600), 1 TAB PO BIDM Ergocalciferol (Vitamin D 45623 Unit), 50,000 UNIT PO 2XWK Gabapentin (Gabapentin), 300 MG PO HS Nitroglycerin (Nitrostat), 0.4 MG UT PRN Omeprazole (Prilosec), 40 MG PO DAILY Sertraline (Zoloft), 150 MG PO HS Scheduled PRN Fluticasone Furoate-Vilanterol (Breo Ellipta), 1 PUFF PO DAILY PRN for SOB/ Wheezing Furosemide (Lasix), 1 TAB PO DAILY PRN for swelling Hydrocodone/Acetaminophen 5MG/325MG ([place] 5MG/325MG), 1 TABLET PO Q6 PRN for Pain Ondansetron Hcl (Zofran), 8 MG PO Q6H PRN for Nausea Tizanidine Hcl (Zanaflex), 4 MG PO Q8 PRN for MUSCLE SPASMS Allergies Coded Allergies: Iodinated Diagnostic Agents (Verified Allergy, Unknown, ., 06/30/17) Penicillins (Verified Allergy, Unknown, 06/30/17) Benzalkonium Chloride (Verified Adverse Reaction, Intermediate, VERTIGO, 06/30/17) Ofloxacin (Verified Adverse Reaction, Intermediate, VERTIGO, 06/30/17) Corticosteroids (Verified Adverse Reaction, Unknown, jittery and hyper, ) Physical Exam Vital Signs Date Time Temp Pulse Resp B/P (MAP) Pulse Ox O2 Delivery O2 Flow Rate FiO2 06/30/17 10:58 36.7 68 20 169/71 96 Room Air 06/30/17 09:14 81 06/30/17 09:10 97 Room Air 06/30/17 09:10 97 Room Air 06/30/17 09:10 36.8 84 20 170/80 94 Room Air Physical Exam GENERAL: Patient is a healthy-appearing well-nourished female HEAD: Normocephalic atraumatic EYES: Ocular movements intact pupils equal and react to light OROPHARYNX mucous membranes are moist no exudates present no erythema or edema present NECK: Supple no nuchal rigidity CHEST: Good equal expansion, pain reproducible on exam LUNGS: Clear and equal to auscultation CARDIAC: Normal S1 and S2 ABDOMEN: Soft nontender no guarding BACK: No CVA tenderness EXTREMITIES: No pain upon palpation normal muscle strength in all groups no clubbing cyanosis or edema NEURO: Patient is following commands is answering questions appropriately. Alert and oriented x3 Cranial Nerves 2-12 grossly intact Medical Decision & Procedures ER Provider Diagnostic Interpretation: Radiology results as stated below per my review and radiologist interpretation: CHEST ONE VIEW PORTABLE CLINICAL HISTORY: chest pian/sob dyspnea COMPARISON STUDY: 05/29/2017 FINDINGS: Chronic fibrotic/atelectatic change right and to lesser extent left base. Mid and upper lungs are clear. Heart is top limits normal in size. IMPRESSION: Chronic change. No acute process. The above report was generated using voice recognition software. It may contain grammatical, syntax or spelling errors. Electronically signed by: Edward Rodriguez M.D. 06/30/2017 10:32 AM Dictated Date/Time: 06/30/2017 10:31 AM Laboratory Results 06/30/17 09:00 06/30/17 09:00 Test 06/30/17 09:00 06/30/17 10:00 Red Blood Count 4.25 M/uL (4.2-5.4) Mean Corpuscular Volume 92.2 fL (80-100) Mean Corpuscular Hemoglobin 31.1 pg (25-34) Mean Corpuscular Hemoglobin Concent 33.7 g/dl (32-36) RDW Standard Deviation 44.4 fL (36.4-46.3) RDW Coefficient of Variation 13.2 % (11.5-14.5) Mean Platelet Volume 10.4 fL (7.4-10.4) Anion Gap 4.0 mmol/L (3-11) Est Creatinine Clear Calc Drug Dose 55.0 ml/min Estimated GFR () 78.3 Estimated GFR (Non- 67.5 BUN/Creatinine Ratio 15.0 (10-20) Calcium Level 8.8 mg/dl (8.5-10.1) Total Bilirubin 0.2 mg/dl (0.2-1) Aspartate Amino Transf (AST/SGOT) 20 U/L (15-37) Alanine Aminotransferase (ALT/SGPT) 24 U/L (12-78) Alkaline Phosphatase 98 U/L (45-117) Total Creatine Kinase 98 U/L (26-192) Creatine Kinase MB 1.1 ng/ml (0.5-3.6) Troponin I < 0.015 ng/ml (0-0.045) Total Protein 7.4 gm/dl (6.4-8.2) Albumin 3.4 gm/dl (3.4-5.0) Globulin 4.0 gm/dl (2.5-4.0) Albumin/Globulin Ratio 0.9 (0.9-2) Bedside Troponin I < 0.030 ng/ml (0-0.045) Labs reviewed by ED physician. Medications Administered Medications (Trade) Dose Ordered Sig/[place] Route Start Time Stop Time Status Last Admin Dose Admin Morphine Sulfate (MoRPHine SULFATE INJ) 6 mg NOW STAT IV 06/30/17 10:10 06/30/17 10:11 DC 06/30/17 10:57 6 MG Ondansetron HCl (Zofran Inj) 4 mg NOW STAT IV 06/30/17 10:11 06/30/17 10:12 DC 06/30/17 10:57 4 MG ECG Indication: chest pain Rate (beats per minute): 82 Rhythm: normal sinus Findings: no acute ischemic change, no ectopy ED Course 1002: Past medical records reviewed. The patient was evaluated in room A10. A complete history and physical examination was performed. 1010: Morphine Sulfate 6mg IV 1011: Zofran 4mg IV 1054: I discussed the patient's case with Rigo Peña PA-C, she has agreed to evaluate the patient for further management and care. 1134: Dilaudid 0.5mg IV Medical Decision Differential diagnosis: Etiologies such as cardiac ischemia, aortic dissection, pulmonary embolism, pneumonia, pneumothorax, musculoskeletal, infections, pericarditis, myocarditis , esophageal rupture, gastrointestinal, as well as others were entertained. This is a 66-year-old female who presents emergency department complaining of chest pain. The patient was recently evaluated for chest pain here in the emergency department however has not been able follow-up with cardiology since she was here. The patient was given morphine for her chest pain. Repeat examination revealed improvement patient's symptoms. Patient was also given aspirin. I did discuss the case with the hospitalist service who agreed to admit the patient. Patient was in agreement with the treatment plan. Medication Reconcilliation Current Medication List: was personally reviewed by me Blood Pressure Screening Patient's blood pressure: Normal blood pressure Consults Time Called: 1049 Consulting Physician: Rigo Peña PA-C Returned Call: [phone] I discussed the patient's case with Rigo Peña, she has agreed to evaluate the patient for further management and care. Impression Primary Impression: Chest pain Scribe Attestation The scribe's documentation has been prepared under my direction and personally reviewed by me in its entirety. I confirm that the note above accurately reflects all work, treatment, procedures, and medical decision making performed by me. Departure Information Dispostion Being Evaluated By Hospitalist Referrals Aureliano Hickey PA-C (PCP) Patient Instructions My [facility] Problem Qualifiers Primary Impression: Chest pain Chest pain type: unspecified Qualified Codes: R07.9 - Chest pain, unspecified
[2017-06-30 10:26] LABS: ALB/GLOB RATIO 0.9 (0.9-2); CKMB/CK RATIO 0.6 (0-3.0)
--- NOTE | 2017-06-30 10:33 | DIAGNOSTIC IMAGING REPORT ---
CHEST ONE VIEW PORTABLE CLINICAL HISTORY: chest pian/sob dyspnea COMPARISON STUDY: 05/29/2017 FINDINGS: Chronic fibrotic/atelectatic change right and to lesser extent left base. Mid and upper lungs are clear. Heart is top limits normal in size. IMPRESSION: Chronic change. No acute process. The above report was generated using voice recognition software. It may contain grammatical, syntax or spelling errors. Electronically signed by: Edward Rodriguez M.D. 06/30/2017 10:32 AM Dictated Date/Time: 06/30/2017 10:31 AM
[2017-06-30] MEDS ORDERED: HYDROmorphone INJ 0.5 MG/0.5 ML SYR IV STA (11:34)
[2017-06-30] MEDS ORDERED: AMLODIPINE BESYLATE 5 MG TAB PO ONE (12:15)
[2017-06-30] MEDS ORDERED: ACETAMINOPHEN 325 MG TAB PO PRN (12:15)
[2017-06-30] MEDS ORDERED: NITROGLYCERIN 0.4 MG SL PER TAB CHARGE SL PRN (12:15)
[2017-06-30] MEDS ORDERED: ONDANSETRON INJ 2 MG/ML 2 ML VIAL IV PRN (12:15)
[2017-06-30] MEDS ORDERED: HYDR-5688 PO (12:22)
[2017-06-30] MEDS ORDERED: CALC600T PO (12:22)
[2017-06-30] MEDS ORDERED: ATOR-26 PO (12:22)
[2017-06-30] MEDS ORDERED: ASCO10003 PO (12:22)
[2017-06-30] MEDS ORDERED: FURO20TA PO (12:24)
[2017-06-30] MEDS ORDERED: FUROSEMIDE 20 MG TAB PO PRN (12:30)
--- NOTE | 2017-06-30 12:36 | History and Physical ---
History & Physical Date of Service Jun 30, 2017. History & Physical This is a 66 year old female with a PMH of HLD, anxiety/depression, osteoporosis , vitamin D deficiency, tobacco use disorder, CIRO Presents with intermittent, sharp chest pain. She was here in the [facility] ED for similar chest pain - had a CTA to r/o PE and further w/up was negative and so she was discharged. States that she was sitting in her car earlier this morning and a sharp, sudden chest pain began. It radiated down her L arm and L leg. Associated shortness of breath. Denies fevers/chills. Has had this pain before; had a dobutamine stress test in 2013 which was negative, but terminated prematurely due to unresponsiveness. Pain improved slightly with morphine. Family history: Father of ND at age 55. Mother's side of family has lung cancer history Sister - lung cancer Social history: smokes 1PPD Surgical History s/p cholecystectomy R shoulder rotator cuff repair ROS: +chest pain, intermittent, sharp +shortness of breath, intermittent, worse with exertion +back pain, chronic, controlled with medications +depression, controlled with medications +anxiety VITALS: Last Vital Signs Documentation Date Time Temp Pulse Resp B/P (MAP) Pulse Ox O2 Delivery O2 Flow Rate FiO2 06/30/17 11:51 65 06/30/17 10:58 36.7 20 169/71 96 Room Air GEN: no acute distress HEENT: NC/AT CVS: +S1, S2, RRR LUNGS: CTA b/l, no wheezing, +chest wall tenderness EXT: no edema NEURO: no focal deficits Chest Pain r/o ACS unlikely cardiac in nature; possibly anxiety vs. musculoskeletal initial enzymes negative CXR negative EKG - NSR, no ST-T wave changes will monitor in tele trend cardiac enzymes check an echo cardiology consultation continue aspirin and statin may need anxiolytic medications (BuSpar?) Elevated Blood Pressure possibly from pain vs. anxiety given one dose of amlodipine Tobacco Use Disorder counseled on smoking cessation nicotine patch HLD continue Lipitor Chronic Back Pain continue home regimen for pain DVT ppx Lovenox FULL CODE
[2017-06-30 12:43] VITALS: O2SAT 92; Ht 149.9 cm; Wt 72.0 kg
[2017-06-30] MEDS ORDERED: IV FLUIDS COMPLETED PRN (12:45)
[2017-06-30 12:50] LABS: CKMB/CK RATIO 1.1 (0-3.0)
--- NOTE | 2017-06-30 12:51 | History and Physical ---
History & Physical Date & Time of Service: Jun 30, 2017 at 12:32 Chief Complaint: Chest Pain Primary Care Physician: Aureliano Hickey PA-C History of Present Illness Source: patient, clinic records, hospital records This is a 66yo F with a PMH of tobacco use disorder, COPD, HLD, depression, anxiety and chronic back pain who presents with chest pain that started this morning. Patient was sitting in her car before work around 8am when she felt a sudden onset, left sided substernal CP with radiation to her R chest. Describes pain as 10/10 sharp pressure with associated SOB. Pain is constant. Took one sublingual nitroglycerin without relief. Came to the ER by ambulance for further evaluation. Received 324mg aspirin en route. Patient presented to the ER last month for chest pain and had a negative work up in the ER, including an EKG, cardiac enzymes, CXR and chest/thorax CTA. Was told to follow-up with cardiology clinic but hasn't yet. Has a 50 pack year history and is currently smoking 1 ppd. Also has HLD. Denies DM II or HTN although she does take Lasix 20mg occasionally for swelling. Endorses a + family history of HD with both her father and uncle dying in their 50s from MIs. States that anxiety is stable; no new life stressors. Echo in 2014 with normal LV chamber size, no wall motion abnormality and EF of 60-65%. Had a dobutamine stress test performed in 2014 that was negative. Currently endorsing CP with SOB. Denies headache, diaphoresis, fever, chills, palpitations, abdominal pain, nausea, vomiting, LE swelling. Past Medical/Surgical History Medical Problems: (1) Anxiety Status: Chronic (2) Carotid stenosis Status: Chronic (3) Chronic back pain Status: Chronic (4) COPD (chronic obstructive pulmonary disease) Status: Chronic (5) Gastroesophageal reflux disease Status: Chronic (6) Hyperlipidemia Status: Chronic (7) Osteoarthritis Status: Chronic (8) Osteoporosis Status: Chronic Surgical Problems: (1) section Status: Resolved (2) H/O dilation and curettage Status: Resolved (3) History of hysterectomy Status: Resolved (4) Hx of shoulder surgery Status: Resolved (5) S/P carpal tunnel release Status: Resolved Family History FHx: cancer FHx: diabetes FHx: heart disease FHx: hypertension FHx: seizures Myocardial infarction FATHER, Onset:45 Uncle (50s) Social History Smoking Status: Current Every Day Smoker (See HPI) Alcohol Use: none Drug Use: none Marital Status: Housing status: lives alone Occupational Status: employed Immunizations History of Influenza Vaccine: Yes History of Tetanus Vaccine?: No Tetanus Immunization Date: Nov 01, 1999 History of Pneumococcal: Yes History of Hepatitis B Vaccine: No Multi-Drug Resistant Organisms History of MDRO: No Allergies Coded Allergies: Iodinated Diagnostic Agents (Verified Allergy, Unknown, ., 06/30/17) Penicillins (Verified Allergy, Unknown, 06/30/17) Benzalkonium Chloride (Verified Adverse Reaction, Intermediate, VERTIGO, 06/30/17) Ofloxacin (Verified Adverse Reaction, Intermediate, VERTIGO, 06/30/17) Corticosteroids (Verified Adverse Reaction, Unknown, jittery and hyper, ) Home Medications Scheduled Alendronate Sodium (Alendronate Sodium), 70 MG PO WK Amitriptyline HCl (Amitriptyline HCl), 20 MG PO HS Ascorbic Acid (Vitamin C), 1 TAB PO DAILY Aspirin (Aspirin Low Dose), 81 MG PO QAM Atorvastatin (Lipitor), 1 TAB PO DAILY Calcium Carbonate (Calcium 600), 1 TAB PO BIDM Ergocalciferol (Vitamin D 65875 Unit), 50,000 UNIT PO 2XWK Gabapentin (Gabapentin), 300 MG PO HS Nitroglycerin (Nitrostat), 0.4 MG UT PRN Omeprazole (Prilosec), 40 MG PO DAILY Sertraline (Zoloft), 150 MG PO HS Scheduled PRN Fluticasone Furoate-Vilanterol (Breo Ellipta), 2 PUFFS PO DAILY PRN for SOB/ Wheezing Furosemide (Lasix), 1 TAB PO DAILY PRN for swelling Hydrocodone/Acetaminophen 5MG/325MG ([place] 5MG/325MG), 1 TABLET PO Q6 PRN for Pain Ondansetron Hcl (Zofran), 8 MG PO Q6H PRN for Nausea Tizanidine Hcl (Zanaflex), 4 MG PO Q8 PRN for MUSCLE SPASMS Review of Systems Ten systems reviewed and negative except as noted in the HPI. Physical Exam Vital Signs Date Time Temp Pulse Resp B/P (MAP) Pulse Ox O2 Delivery O2 Flow Rate FiO2 06/30/17 12:31 65 20 136/57 94 Room Air 06/30/17 11:51 65 06/30/17 10:58 36.7 68 20 169/71 96 Room Air 06/30/17 09:14 81 06/30/17 09:10 97 Room Air 06/30/17 09:10 97 Room Air 06/30/17 09:10 36.8 84 20 170/80 94 Room Air General Appearance: + mild distress (crying throughout interview ) Head: normocephalic, atraumatic Eyes: normal inspection, PERRL, EOMI, sclerae normal (conjunctiva normal ) ENT: normal ENT inspection, hearing grossly normal, pharynx normal (moist mucous membranes ) Neck: supple, no adenopathy, thyroid normal Respiratory/Chest: chest non-tender, lungs clear, normal breath sounds, no respiratory distress, no accessory muscle use Cardiovascular: regular rate, rhythm, no murmur, normal peripheral pulses Abdomen/GI: normal bowel sounds, non tender, soft, no organomegaly Back: normal inspection Extremities/Musculoskelatal: normal inspection, no calf tenderness, no pedal edema, non-tender Neurologic/Psych: no motor/sensory deficits, alert, oriented x 3, + pertinent finding (anxious ) Skin: normal color, warm/dry, no rash Diagnostics Laboratory Results Results Past 24 Hours Test 06/30/17 09:00 06/30/17 12:12 06/30/17 12:15 Range/Units White Blood Count 10.29 4.8-10.8 K/uL Red Blood Count 4.25 4.2-5.4 M/uL Hemoglobin 13.2 12.0-16.0 g/dL Hematocrit 39.2 37-47 % Mean Corpuscular Volume 92.2 80-100 fL Mean Corpuscular Hemoglobin 31.1 25-34 pg Mean Corpuscular Hemoglobin Concent 33.7 32-36 g/dl RDW Standard Deviation 44.4 36.4-46.3 fL RDW Coefficient of Variation 13.2 11.5-14.5 % Platelet Count 248 130-400 K/uL Mean Platelet Volume 10.4 7.4-10.4 fL Sodium Level 138 136-145 mmol/L Potassium Level 4.3 3.5-5.1 mmol/L Chloride Level 107 98-107 mmol/L Carbon Dioxide Level 27 21-32 mmol/L Anion Gap 4.0 3-11 mmol/L Blood Urea Nitrogen 13 7-18 mg/dl Creatinine 0.89 0.60-1.20 mg/dl Est Creatinine Clear Calc Drug Dose 55.0 ml/min Estimated GFR () 78.3 Estimated GFR (Non- 67.5 BUN/Creatinine Ratio 15.0 10-20 Random Glucose 99 70-99 mg/dl Calcium Level 8.8 8.5-10.1 mg/dl Total Bilirubin 0.2 0.2-1 mg/dl Aspartate Amino Transf (AST/SGOT) 20 15-37 U/L Alanine Aminotransferase (ALT/SGPT) 24 12-78 U/L Alkaline Phosphatase 98 45-117 U/L Total Creatine Kinase 98 26-192 U/L Creatine Kinase MB 0.6 0.5-3.6 ng/ml Creatine Kinase MB Ratio 0.6 0-3.0 Total Protein 7.4 6.4-8.2 gm/dl Albumin 3.4 3.4-5.0 gm/dl Globulin 4.0 2.5-4.0 gm/dl Albumin/Globulin Ratio 0.9 0.9-2 Diagnostic Radiology CXR: IMPRESSION: Chronic change. No acute process. Normal EKG, No change from prior EKG Impression Assessment and Plan This is a 66yo F with a PMH of tobacco use disorder, COPD, HLD, depression, anxiety and chronic back pain who presents with chest pain that started this morning. Chest pain: -R/o ACS; risk factors include tobacco use, HLD, + family history -Likely an anxiety component -Initial troponin -EKG- NSR, no ischemia or ST changes -CXR-no acute change -Trend serial cardiac enzymes -Check echo -Continue baby aspirin and statin -Repeat EKG in am -Consult cardiology COPD: -Stable -CXR, lung exam wnl -Cont home Breo HLD: -Continue statin Chronic back pain: -Continue home gabapentin, hydrocodone, zanaflex Tobacco use disorder: -Discussed smoking cessation -Nicotine patch Depression/anxiety: -Continue home Zoloft -Consider additional anxiolytic GERD: -Cont home PPI DVT Ppx: Lovenox Code status: FULL PCP: Ruperto Dispo: Telemetry observation. Plan to return home once medically stable. Patient seen in collaboration with Dr. Chao. Please see addendum. Level of Care Telemetry Resuscitation Status FULL RESUSCITATION VTE Prophylaxis VTE Risk Assessment Done? Y/N: Yes Risk Level: Moderate Given or contraindicated: Enoxaparin (Lovenox)SQ Social Service Consult None Apply
[2017-06-30] MEDS ORDERED: PERFLUTREN LIPID MICROSPHERE (DEFINITY) IV ONE (13:26)
--- NOTE | 2017-06-30 14:06 | ECHOCARDIOGRAM REPORT ---
*NOTICE TO RECEIVING [employer] [employer] [facility] This information is strictly Confidential and protected under [place] law. [place] law prohibits you from making any further disclosure of this information unless further disclosure is expressly permitted by the written consent of the person to whom it pertains or is authorized by law. A general authorization for the release of medical or other information is not sufficient for this purpose. Hospital accepts no responsibility if the information is made available to any other person, INCLUDING THE PATIENT. Interpretation Summary * Name: NAOMI ARANA Study Date: 06/30/2017 12:45 PM BP: 123/48 mmHg * Patient Location: [facility] HR: 61 * : 1950 (M/d/yyyy) Gender: Female Height: 59 in * Age: 66 yrs Ethnicity: [place] Weight: 165 lb * Ordering Physician: Yovana Jones * Referring Physician: Self, Referred * Performed By: Suri Gandhi RCS * * Reason For Study: CHEST PAIN * BSA: 1.7 m2 * -- Conclusions -- * The left ventricle is normal in size. * There is mild concentric left ventricular hypertrophy. * The left ventricular wall motion is normal. * Left ventricular systolic function is normal. * Ejection Fraction = 60-65%. * There is mild tricuspid regurgitation. * Right ventricular systolic pressure is elevated at 40-50mmHg. Procedure Details * A complete two-dimensional transthoracic echocardiogram was performed (2D, M-mode, Doppler and color flow Doppler). * The study was technically difficult. * A contrast injection of Definity was performed to improve assessment of LV function. * Contrast was injected into an intravenous site in the left arm. * One vial of Definity ultrasound contrast was diluted in normal saline to a total volume of 10 ml. A total of '2' ml of solution was administered during imaging. * Lot # [id number] of Definity utilized for procedure. * Expiration date AUG 07. * The attending nurse who injected the contrast agent was JULIA CASTLE RN. Left Ventricle * The left ventricle is normal in size. * There is mild concentric left ventricular hypertrophy. * Left ventricular systolic function is normal. * Ejection Fraction = 60-65%. * The left ventricular wall motion is normal. Right Ventricle * Borderline right ventricular enlargement. Atria * The left atrial size is normal. * Right atrial size is normal. * No ASD detected; PFO is not assessed. Mitral Valve * The mitral valve is normal. * There is no mitral valve stenosis. * There is trace mitral regurgitation. Tricuspid Valve * The tricuspid valve anatomy is normal. * There is no tricuspid stenosis. * There is mild tricuspid regurgitation. * Right ventricular systolic pressure is elevated at 40-50mmHg. Aortic Valve * The aortic valve is trileaflet. * No hemodynamically significant valvular aortic stenosis. * No aortic regurgitation is present. Pulmonic Valve * The pulmonic valve is not well visualized. Great Vessels * The aortic root is normal size. Pericardium/Pleural * There is no pericardial effusion. Great Vessels * Normal inferior vena cava diameter and respiratory variation suggests normal central venous pressure. MMode 2D Measurements and Calculations IVSd 1.2 cm IVSs 1.5 cm LVIDd 4.7 cm LVIDs 3.0 cm LVPWd 1.3 cm LVPWs 1.4 cm IVS/LVPW 0.91 FS 35.1 % EDV(Teich) 102.2 ml ESV(Teich) 36.3 ml EF(Teich) 64.5 % EDV(cubed) 103.6 ml ESV(cubed) 28.3 ml EF(cubed) 72.7 % % IVS thick 31.0 % % LVPW thick 6.9 % LV mass(C)d 222.6 grams LV mass(C)dI 131.0 grams/m\S\2 LV mass(C)s 155.6 grams LV mass(C)sI 91.6 grams/m\S\2 SV(Teich) 65.9 ml SI(Teich) 38.8 ml/m\S\2 SV(cubed) 75.4 ml SI(cubed) 44.3 ml/m\S\2 Ao root diam 2.6 cm Ao root area 5.3 cm\S\2 ACS 1.9 cm LA dimension 3.8 cm LA/Ao 1.5 LVOT diam 2.0 cm LVOT area 3.0 cm\S\2 LVAd ap4 27.0 cm\S\2 LVLd ap4 6.7 cm EDV(MOD-sp4) 86.6 ml EDV(sp4-el) 92.9 ml LVAs ap4 17.5 cm\S\2 LVLs ap4 5.7 cm ESV(MOD-sp4) 44.1 ml ESV(sp4-el) 45.2 ml EF(MOD-sp4) 49.0 % EF(sp4-el) 51.3 % LVAd ap2 23.0 cm\S\2 LVLd ap2 7.0 cm EDV(MOD-sp2) 63.6 ml EDV(sp2-el) 64.0 ml LVAs ap2 14.3 cm\S\2 LVLs ap2 5.5 cm ESV(MOD-sp2) 34.4 ml ESV(sp2-el) 31.7 ml EF(MOD-sp2) 45.9 % EF(sp2-el) 50.4 % LVLd %diff 5.0 % EDV(MOD-bp) 73.0 ml LVLs %diff -4.05 % ESV(MOD-bp) 39.1 ml EF(MOD-bp) 46.5 % SV(MOD-sp4) 42.5 ml SI(MOD-sp4) 25.0 ml/m\S\2 SV(MOD-sp2) 29.2 ml SI(MOD-sp2) 17.2 ml/m\S\2 SV(MOD-bp) 33.9 ml SI(MOD-bp) 19.9 ml/m\S\2 SV(sp4-el) 47.7 ml SI(sp4-el) 28.1 ml/m\S\2 SV(sp2-el) 32.3 ml SI(sp2-el) 19.0 ml/m\S\2 Doppler Measurements and Calculations MV E max vivienne 79.3 cm/sec MV A max vivienne 57.2 cm/sec MV E/A 1.4 MV P1/2t max vivienne 87.4 cm/sec MV P1/2t 64.0 msec MVA(P1/2t) 3.4 cm\S\2 MV dec slope 400.1 cm/sec\S\2 MV dec time 0.19 sec Ao V2 max 117.6 cm/sec Ao max PG 5.5 mmHg Ao max PG (full) 0.20 mmHg TAVIA(V,A) 2.9 cm\S\2 TAVIA(V,D) 2.9 cm\S\2 LV V1 max PG 5.3 mmHg LV V1 max 115.4 cm/sec PA V2 max 78.7 cm/sec PA max PG 2.5 mmHg PI max vivienne 231.9 cm/sec PI max PG 21.5 mmHg PI dec slope 203.1 cm/sec\S\2 PI P1/2t 334.4 msec TR max vivienne 328.9 cm/sec
[2017-06-30] MEDS: BREO ELLIPTA: ORDER AWAITING ACTION SCH (14:54)
[2017-06-30] MEDS: NICOTINE 21 MG/24 HR TDSY TD SCH (15:49)
[2017-06-30] MEDS: CALCIUM 600MG + VIT D 400 IU TAB PO SCH (15:49)
[2017-06-30] MEDS: HYDROCODONE/ACETAMOPHEN 5/325MG TAB PO PRN (15:50)
--- NOTE | 2017-06-30 16:01 | CARDIOLOGY CONSULTATION ---
DATE OF CONSULTATION: 06/30/2017 DATE OF CONSULTATION: 06/30/2017 REFERRING: Dr. Chao. PRIMARY CARE PHYSICIAN: Dr. Dave Hickey, [facility]. INDICATIONS: Chest pain. HISTORY OF PRESENT ILLNESS: The patient is a 66-year-old female whose past medical history is notable for chronic headache, hyperlipidemia, hypertension with past ER evaluation approximately 1 month ago with chest sharp right and left-sided pain with negative evaluation for pulmonary embolus. She represents to the Emergency Room today with once again similar complaints of sharp pain jabbing in description on the left upper chest wall and radiation to the right chest. Symptoms are transiently present with lingering pain after. Symptoms were not relieved by nitroglycerin. Underlying medical course in addition to above is notable for chronic obstructive lung disease and gastroesophageal reflux, osteoarthritis, past evaluation with polymyalgia unrevealing. The patient currently has grade 1/10 pain with sharp discomfort on palpation of the left upper chest as well. Notes no fevers, chills or notes no productive cough. Is dyspneic with minimal exertion. Notes no syncope or near syncope. Notes chronic sleep disruption. Weight has been stable. Notes no unexplained fevers or infections. ALLERGIES: NOTED TO BE IODINE CONTRAST, PENICILLIN, OXAFLOXIN, CORTICOSTEROIDS, BENZALKONIUM CHLORIDE. PAST SURGICAL HISTORY: Notable for prior carpal tunnel surgery on the left hand, right shoulder surgery, prior , remote cholecystectomy, hysterectomy, cystoscopy in 2012. FAMILY HISTORY: Positive for hypertension as well as myocardial infarction in father at age 55. SOCIAL HISTORY: The patient 1-1/2 pack per day smoker, uses no significant alcoholic or over the counter medications. She is sedentary about her home. PHYSICAL EXAMINATION: VITAL SIGNS: Heart rate is 62, blood pressure is 123/50, equal in both arms. HEAD, EYES, EARS, NOSE, AND THROAT: Normocephalic, atraumatic. NECK: Thin. There is no jugular venous distention. There are no carotid bruits. There is no carotid delay. LUNGS: Clear to auscultation with mildly diminished breath sounds. CARDIOVASCULAR: Regular with normal S1, S2. There is no audible murmur, gallop or rub. There is tenderness to the chest wall to palpation in the left axillary area. ABDOMEN: Soft, nontender. There is no palpable hepatosplenomegaly. There is no hepatojugular reflux. EXTREMITIES: Without cyanosis or clubbing. There is no peripheral edema. There are intact distal pulses 2+/4. NEUROLOGIC: The patient is intact grossly. LABORATORY DATA: White cell count 10.2, hemoglobin is 13.2, hematocrit 39.2. Sodium is 138, potassium is 4.3, chloride is 107, bicarb 27, BUN is 13, creatinine 0.89. Troponin is negative x2. CK and MB fractions are normal. Albumin is 3.4. Chest x-ray reveals chronic interstitial changes without acute change. EKG reveals sinus rhythm with normal tracing at a rate of 82 obtained during chest discomfort. Echocardiogram today demonstrates mild left ventricular hypertrophy with normal left ventricular systolic function, no wall motion abnormalities. There is mild right-sided enlargement as well as mild elevation in right systolic pressures. CT scan of the chest done on 05/29/2017 demonstrated no evidence of pulmonary emboli. Carotid ultrasound done in January of 2017 demonstrated atherosclerotic plaque but no obstruction. OUTPATIENT LABORATORY STUDIES: Done in March 2017, include negative Lyme screen. TSH in October 2016 was 2.09. IMPRESSION: A 66-year-old female with atypical chest discomfort, not suggestive of angina with negative enzymes, pain is not reproducible. Her history is notable for mild enlargement, right chamber sizes and elevated pulmonary pressures by echocardiogram, chronically elevated sed rate. RECOMMENDATIONS: Would continue to follow serial cardiac enzymes and EKGs. To complete evaluation would consider stress nuclear imaging post-discharge unless EKGs or enzymes evolve. Would seek other cause for pain however given atypical features and reproducible with palpation.
[2017-06-30 19:30] VITALS: BP 93/57; PULSE 68; TEMP 36.9; O2SAT 90
[2017-06-30 19:58] LABS: CKMB/CK RATIO 1.3 (0-3.0)
[2017-06-30] MEDS: AMITRIPTYLINE HCL 10 MG TAB PO SCH (20:32)
[2017-06-30] MEDS: SERTRALINE HCL 50 MG TAB PO SCH (20:33)
[2017-06-30] MEDS: GABAPENTIN 300 MG CAP PO SCH (20:33)
[2017-06-30] MEDS: ENOXAPARIN 40 MG/0.4 ML SYR SC SCH (20:34)
[2017-06-30 23:03] VITALS: BP 86/48; PULSE 95; TEMP 36.7; O2SAT 92
[2017-06-30 23:07] VITALS: BP_SYST 105; BP_SYST 110; BP_DIAS 60; BP_DIAS 68; PULSE 69
[2017-07-01] VITALS (10 sets, daily range): BP systolic 101–135; BP diastolic 49–76; PULSE 64–87; TEMP 36.5–37.6; O2SAT 88–96
[2017-07-01 01:02] LABS: CKMB/CK RATIO 1.2 (0-3.0)
[2017-07-01] MEDS ORDERED: ALENDRONATE SODIUM 70 MG TAB PO SCH (06:30)
[2017-07-01 06:50] LABS: HEMATOCRIT 38.2 % (37-47); MEAN CELL VOLUME 91.8 fL (80-100); MEAN CORPUSCULAR HGB CONC 33.8 g/dl (32-36); PLATELET COUNT 220 K/uL (130-400); RED BLOOD COUNT 4.16 M/uL (4.2-5.4); WHITE BLOOD COUNT 8.58 K/uL (4.8-10.8)
[2017-07-01 06:58] LABS: PROTHROMBIN TIME (PATIENT) 10.2 SECONDS (9.0-12.0)
[2017-07-01 07:26] LABS: CALCIUM 9.4 mg/dl (8.5-10.1); CREATININE 0.91 mg/dl (0.60-1.20); POTASSIUM 4.4 mmol/L (3.5-5.1)
[2017-07-01] MEDS: HYDROCODONE/ACETAMOPHEN 5/325MG TAB PO PRN ×2 (07:32→20:35)
[2017-07-01] MEDS: BREO ELLIPTA: ORDER AWAITING ACTION SCH ×3 (08:00→15:48)
[2017-07-01] MEDS: ASPIRIN 81 MG ECTAB PO SCH (08:18)
[2017-07-01] MEDS: NICOTINE 21 MG/24 HR TDSY TD SCH (08:18)
[2017-07-01] MEDS: ATORVASTATIN 40 MG TAB PO SCH (08:18)
[2017-07-01] MEDS: CALCIUM 600MG + VIT D 400 IU TAB PO SCH ×2 (08:18→17:13)
[2017-07-01] MEDS: ASCORBIC ACID 500 MG TAB PO SCH (08:18)
[2017-07-01] MEDS: PANTOprazole SOD 40 MG TAB PO SCH (08:19)
--- NOTE | 2017-07-01 12:18 | Cardiology Follow-Up ---
Subjective Subjective Date of Service: Jul 01, 2017. Pt evaluation today including: conversation w/ patient, physical exam, chart review, lab review, review of studies, review of inpatient medication list Additional Details: Pt seen and examined, states that she had slight discomfort this AM when thinking about being discharged. Admits that she's been very anxious as of late. Denies sob, palpitations, lightheadedness or dizziness. Tele reviewed: sinus rhythm without arrhythmia or significant ectopy. Problem List Medical Problems: (1) Abdominal pain Status: Acute (2) Bleeding Status: Acute (3) Chest pain Status: Acute (4) Chest pain Status: Acute (5) Costochondritis Status: Acute (6) Epigastric abdominal pain Status: Acute (7) Intermittent left-sided chest pain Status: Acute (8) Medication reaction Status: Acute (9) Near syncope Status: Acute (10) Right hip pain Status: Acute (11) Right lower quadrant abdominal pain Status: Acute Review of Systems Respiratory: No see HPI, No cough, No sputum, No wheezing, No shortness of breath, No dyspnea on exertion, No dyspnea at rest, No hemoptysis, No problem reported Cardiac: + chest pain, No see HPI, No orthopnea, No PND, No edema, No claudication, No palpitations, No problem reported Abdomen: + pain Psychiatric: + anxiety Objective Vital Signs Last Vital Signs Documentation Date Time Temp Pulse Resp B/P (MAP) Pulse Ox O2 Delivery O2 Flow Rate FiO2 07/01/17 11:21 37.6 87 20 92 Nasal Cannula 07/01/17 08:00 2.0 07/01/17 07:30 122/73 (89) Physical Exam: General Appearance: WD/WN, no apparent distress Eyes: bilateral eyes normal inspection, bilateral eyes PERRL, bilateral eyes EOMI ENT: normal ENT inspection, hearing grossly normal, pharynx normal Neck: supple, no adenopathy, thyroid normal, no JVD, no carotid bruits, trachea midline Respiratory/Chest: chest non-tender, lungs clear, normal breath sounds Cardiovascular: regular rate, rhythm, no edema, no JVD, no murmur, + gallop/S4 Abdomen: normal bowel sounds, non tender, soft, no organomegaly, no pulsatile mass, + tenderness Extremities: normal range of motion, non-tender, normal inspection, no pedal edema, no calf tenderness 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 chest pain no active ischemia chest pain mostly reproducible ok to d/c to home from cardiac standpoint will need Lexiscan nuclear stress as outpatient likely component of anxiety as well, may benefit from anxiolytic
[2017-07-01] MEDS ORDERED: IBUPROFEN 600 MG TAB PO PRN (17:45)
--- NOTE | 2017-07-01 18:00 | Progress Note ---
Medicine Progress Note Date & Time of Visit: Jul 01, 2017 at 18:00. Subjective Patient states she is still experiencing some pain along her left chest/breast and it is tender to palpation. She is worried about what the pain is from and was reassured with all the studies to date that the pain appears to be musculoskeletal. Her mammogram in Apr. did not show any suspicious lesions. Objective Last 8 Hrs Date Time Temp Pulse Resp B/P (MAP) Pulse Ox O2 Delivery O2 Flow Rate FiO2 07/01/17 15:46 37.1 20 116/70 (85) 92 Room Air 07/01/17 12:00 90 Room Air 07/01/17 11:21 37.6 87 20 92 Nasal Cannula Physical Exam: GENERAL: Patient is in no acute distress. HEENT: No acute trauma, normocephalic, mucous membranes moist, no nasal congestion, no scleral icterus. NECK: No stridor, trachea is midline. LUNGS: Clear to auscultation bilaterally, no wheeze, no rhonchi, breath sounds equal. HEART: Without murmurs gallops or rubs, regular rate and rhythm. ABDOMEN: Soft, nontender, bowel sounds positive EXTREMITIES: No cyanosis or edema, full range of motion of all the joints without pain or difficulty, no signs for acute trauma. NEUROLOGIC: Oriented x 3, no acute motor or sensory deficits, no focal weakness. SKIN: No rash, no jaundice, no diaphoresis. Laboratory Results: Last 24 Hours Test 06/30/17 18:57 07/01/17 00:21 07/01/17 06:27 Total Creatine Kinase 89 U/L 85 U/L Creatine Kinase MB 1.2 ng/ml 1.0 ng/ml Creatine Kinase MB Ratio 1.3 1.2 Troponin I < 0.015 ng/ml < 0.015 ng/ml White Blood Count 8.58 K/uL Red Blood Count 4.16 M/uL Hemoglobin 12.9 g/dL Hematocrit 38.2 % Mean Corpuscular Volume 91.8 fL Mean Corpuscular Hemoglobin 31.0 pg Mean Corpuscular Hemoglobin Concent 33.8 g/dl RDW Standard Deviation 43.7 fL RDW Coefficient of Variation 13.0 % Platelet Count 220 K/uL Mean Platelet Volume 10.0 fL Prothrombin Time 10.2 SECONDS Prothromb Time International Ratio 1.0 Sodium Level 138 mmol/L Potassium Level 4.4 mmol/L Chloride Level 105 mmol/L Carbon Dioxide Level 28 mmol/L Anion Gap 5.0 mmol/L Blood Urea Nitrogen 15 mg/dl Creatinine 0.91 mg/dl Est Creatinine Clear Calc Drug Dose 53.8 ml/min Estimated GFR () 76.2 Estimated GFR (Non- 65.7 BUN/Creatinine Ratio 16.0 Random Glucose 100 mg/dl Calcium Level 9.4 mg/dl Assessment & Plan Atypical Chest pain: -risk factors include tobacco use, hyperlipidemia, + family history -pain appears more in the distribution of the pectoralis muscle -serial CM negative -TTE: no wall motion abnormalities -EKG: NSR, no ischemia or ST changes -CXR: no acute cardiopulmonary process -continue aspirin and statin -Consulted cardiology, appreciate recs, plan for an outpatient nuc med stress test COPD: -stable -CXR neg -not in exacerbation -continue home Breo Hyperlipidemia: -continue statin Chronic back pain: -continue home gabapentin, hydrocodone, zanaflex Tobacco use disorder: -smoking cessation advised -Nicotine patch Depression/anxiety: -continue home Zoloft -consider additional anxiolytic GERD: -Cont home PPI Current Inpatient Medications: Current Inpatient Medications Medications (Trade) Dose Ordered Sig/[place] Route Start Time Stop Time Status Last Admin Dose Admin Enoxaparin Sodium (Lovenox Inj) 40 mg Q24H SC 06/30/17 21:00 07/30/17 20:59 06/30/17 20:34 40 MG Acetaminophen (Tylenol Tab) 650 mg Q4H PRN PO 06/30/17 12:15 07/30/17 12:14 Ondansetron HCl (Zofran Inj) 4 mg Q6H PRN IV 06/30/17 12:15 07/30/17 12:14 Nitroglycerin (Nitrostat Tab) 0.4 mg UD PRN SL 06/30/17 12:15 07/30/17 12:14 Nicotine (Nicoderm Cq 21MG Patch) 1 patch QAM TD 06/30/17 14:15 07/30/17 14:14 07/01/17 08:18 1 PATCH Miscellaneous (Remove Nicoderm Patch) 1 ea HS N/A 06/30/17 21:00 07/30/17 20:59 07/01/17 00:53 1 EA Alendronate Sodium (Fosamax Tab) 70 mg Sa@0630 PO 07/01/17 06:30 07/31/17 06:29 07/01/17 06:23 70 MG Amitriptyline HCl (Elavil Tab) 20 mg HS PO 06/30/17 21:00 07/30/17 20:59 06/30/17 20:32 20 MG Aspirin (Ecotrin Tab) 81 mg QAM PO 07/01/17 09:00 07/31/17 08:59 07/01/17 08:18 81 MG Atorvastatin Calcium (Lipitor Tab) 80 mg DAILY PO 07/01/17 09:00 07/31/17 08:59 07/01/17 08:18 80 MG Furosemide (Lasix Tab) 20 mg DAILY PRN PO 06/30/17 12:30 07/30/17 12:29 Gabapentin (Neurontin Cap) 300 mg HS PO 06/30/17 21:00 07/30/17 20:59 06/30/17 20:33 300 MG Acetaminophen/ Hydrocodone Bitart ([place] 5/325 Tab) 1 tab Q6 PRN PO 06/30/17 12:30 07/14/17 12:29 07/01/17 07:32 1 TAB Sertraline HCl (Zoloft Tab) 150 mg HS PO 06/30/17 21:00 07/30/17 20:59 06/30/17 20:33 150 MG Tizanidine HCl (Zanaflex Tab) 4 mg Q8 PRN PO 06/30/17 12:30 07/30/17 12:29 Ascorbic Acid (Vitamin C Tab) 500 mg DAILY PO 07/01/17 09:00 07/31/17 08:59 07/01/17 08:18 500 MG Calcium/Vitamin D (Caltrate Plus Tab) 1 tab BIDM PO 06/30/17 17:00 07/30/17 17:59 07/01/17 17:13 1 TAB Miscellaneous Information (Order Awaiting Action) 1 ea QS N/A 06/30/17 16:00 07/30/17 15:59 Pantoprazole Sodium (Protonix Tab) 40 mg QAM PO 07/01/17 09:00 07/31/17 08:59 07/01/17 08:19 40 MG Miscellaneous (Iv Fluids Completed) 1 ea PRN PRN N/A 06/30/17 12:45 06/30/18 12:44 Ibuprofen (Motrin Tab) 600 mg Q8 PRN PO 07/01/17 17:45 07/31/17 17:44
[2017-07-01] MEDS: AMITRIPTYLINE HCL 10 MG TAB PO SCH (20:36)
[2017-07-01] MEDS: SERTRALINE HCL 50 MG TAB PO SCH (20:36)
[2017-07-01] MEDS: ENOXAPARIN 40 MG/0.4 ML SYR SC SCH (20:37)
[2017-07-01] MEDS: GABAPENTIN 300 MG CAP PO SCH (20:37)
[2017-07-02 04:57] VITALS: BP 99/59; PULSE 69; TEMP 36.8; O2SAT 92
--- NOTE | 2017-07-02 07:40 | Discharge Instructions ---
Discharge Instructions Date of Service Jul 02, 2017. Admission Reason for Admission: Chest Pain Discharge Discharge Diagnosis / Problem: Chest pain Discharge Goals Goal(s): Therapeutic intervention Activity Recommendations Activity Limitations: as noted below Lifting Limitations: gradually increase as tolerated Exercise/Sports Limitations: gradually increase as tolerated . Instructions / Follow-Up Instructions / Follow-Up Please expect a phone call from your Primary Care physician's office regarding scheduling an appointment for hospital follow up. Current Hospital Diet Patient's current hospital diet: AHA Diet (Heart Healthy) Discharge Diet Recommended Diet: AHA Diet (Heart Healthy) Pending Studies Studies pending at discharge: no Medical Emergencies . Who to Call and When: Medical Emergencies: If at any time you feel your situation is an emergency, please call 911 immediately. . Non-Emergent Contact Non-Emergency issues call your: Primary Care Provider . . "Provider Documentation" section prepared by Randa Astorga. . VTE Core Measure Inpt VTE Proph given/why not?: Enoxaparin (Lovenox)SQ
[2017-07-02 08:00] VITALS: O2SAT 90
[2017-07-02] MEDS: BREO ELLIPTA: ORDER AWAITING ACTION SCH ×2 (08:00)
[2017-07-02] MEDS: PANTOprazole SOD 40 MG TAB PO SCH (08:27)
[2017-07-02] MEDS: NICOTINE 21 MG/24 HR TDSY TD SCH (08:27)
[2017-07-02] MEDS: ASCORBIC ACID 500 MG TAB PO SCH (08:27)
[2017-07-02] MEDS: ATORVASTATIN 40 MG TAB PO SCH (08:27)
[2017-07-02] MEDS: ASPIRIN 81 MG ECTAB PO SCH (08:27)
[2017-07-02] MEDS: CALCIUM 600MG + VIT D 400 IU TAB PO SCH (08:28)
[2017-07-02 09:00] VITALS: BP 116/67; PULSE 89; TEMP 36.6; O2SAT 90
--- NOTE | 2017-07-02 12:18 | Discharge Summary ---
Discharge Summary Date of Service Jul 02, 2017. Discharge Summary Admission Date: Jun 30, 2017 at 11:26 Discharge Date: Jul 02, 2017 Discharge Disposition: Home Principal Diagnosis: Chest pain Pending Studies/Follow-Up: Needs Outpatient Nuclear med stress test by Cardiology, US of the left breast, consideration for trial of paroxetine or clonidine for recurrent hot flashes, also possible need to treat for anxiety Medication Reconciliation Continued Medications: Alendronate Sodium (Alendronate Sodium) 70 Mg Tab 70 MG PO WK SATURDAYS. Amitriptyline HCl (Amitriptyline HCl) 10 Mg Tab 20 MG PO HS Ascorbic Acid (Vitamin C) 1,000 Mg Tab 1 TAB PO DAILY Aspirin (Aspirin Low Dose) 81 Mg Tab 81 MG PO QAM Atorvastatin (Lipitor) 80 Mg Tab 1 TAB PO DAILY for 30 Days, #30 TAB 5 Refills Calcium Carbonate (Calcium 600) 600 Mg Tab 1 TAB PO BIDM Ergocalciferol (Vitamin D 70255 Unit) 50,000 Unit Cap 27915 UNIT PO 2XWK, CAP Fluticasone Furoate-Vilanterol (Breo Ellipta) 1 Inh Inh 1 PUFF PO DAILY PRN for SOB/Wheezing Furosemide (Lasix) 20 Mg Tab 1 TAB PO DAILY PRN for swelling for 90 Days, #90 TAB 1 Refill Gabapentin (Gabapentin) 300 Mg Cap 300 MG PO HS, #30 Hydrocodone/Acetaminophen 5MG/325MG ([place] 5MG/325MG) Tab 1 TABLET PO Q6 PRN for Pain, TAB Nitroglycerin (Nitrostat) 0.4 Mg Tab 0.4 MG UT PRN, BTL Omeprazole (Prilosec) 40 Mg Cap 40 MG PO DAILY, #30 Ondansetron Hcl (Zofran) 4 Mg Tab 8 MG PO Q6H PRN for Nausea, TAB Sertraline (Zoloft) 100 Mg Tab 150 MG PO HS, TAB Tizanidine Hcl (Zanaflex) 4 Mg Cap 4 MG PO Q8 PRN for MUSCLE SPASMS Admission Information HPI (per Admitting provider): This is a 66yo F with a PMH of tobacco use disorder, COPD, HLD, depression, anxiety and chronic back pain who presents with chest pain that started this morning. Patient was sitting in her car before work around 8am when she felt a sudden onset, left sided substernal CP with radiation to her R chest. Describes pain as 10/10 sharp pressure with associated SOB. Pain is constant. Took one sublingual nitroglycerin without relief. Came to the ER by ambulance for further evaluation. Received 324mg aspirin en route. Patient presented to the ER last month for chest pain and had a negative work up in the ER, including an EKG, cardiac enzymes, CXR and chest/thorax CTA. Was told to follow-up with cardiology clinic but hasn't yet. Has a 50 pack year history and is currently smoking 1 ppd. Also has HLD. Denies DM II or HTN although she does take Lasix 20mg occasionally for swelling. Endorses a + family history of HD with both her father and uncle dying in their 50s from MIs. States that anxiety is stable; no new life stressors. Echo in 2015 with normal LV chamber size, no wall motion abnormality and EF of 60-65%. Had a dobutamine stress test performed in 2015 that was negative. Currently endorsing CP with SOB. Denies headache, diaphoresis, fever, chills, palpitations, abdominal pain, nausea, vomiting, LE swelling. Physical Exam (per Admitting): General Appearance: + mild distress (crying throughout interview ) Head: normocephalic, atraumatic Eyes: normal inspection, PERRL, EOMI, sclerae normal (conjunctiva normal ) ENT: normal ENT inspection, hearing grossly normal, pharynx normal (moist mucous membranes ) Neck: supple, no adenopathy, thyroid normal Respiratory/Chest: chest non-tender, lungs clear, normal breath sounds, no respiratory distress, no accessory muscle use Cardiovascular: regular rate, rhythm, no murmur, normal peripheral pulses Abdomen/GI: normal bowel sounds, non tender, soft, no organomegaly Back: normal inspection Extremities/Musculoskelatal: normal inspection, no calf tenderness, no pedal edema, non-tender Neurologic/Psych: no motor/sensory deficits, alert, oriented x 3, + pertinent finding (anxious ) Skin: normal color, warm/dry, no rash Hospital Course Atypical Chest pain: -risk factors include tobacco use, hyperlipidemia, + family history -pain appears more in the distribution of the pectoralis muscle -serial CM negative -TTE: no wall motion abnormalities, EF 60-65%, elevated RVSP -EKG: NSR, no ischemia or ST changes -CXR: no acute cardiopulmonary process -continue aspirin and statin -Consulted cardiology, appreciate recs, plan for an outpatient nuc med stress test -trial with NSAID COPD: -stable -CXR neg -not in exacerbation -continue home Breo Hyperlipidemia: -continue statin Chronic back pain: -continue home gabapentin, hydrocodone, zanaflex Tobacco use disorder: -smoking cessation advised -Nicotine patch Depression/anxiety: -continue home Zoloft -consider additional anxiolytic GERD: -continue PPI PHYSICAL EXAM ON DAY OF DISCHARGE: GENERAL: Patient is in no acute distress. HEENT: No acute trauma, normocephalic, mucous membranes moist, no nasal congestion, no scleral icterus. NECK: No stridor, trachea is midline. LUNGS: Diminished bilaterally, no wheeze, no rhonchi, breath sounds equal. HEART: Without murmurs gallops or rubs, regular rate and rhythm. Pain with palpation of the left chest wall from the sternum to the axilla ABDOMEN: Soft, nontender, bowel sounds positive EXTREMITIES: No cyanosis or edema, full range of motion of all the joints without pain or difficulty, no signs for acute trauma. NEUROLOGIC: Oriented x 3, no acute motor or sensory deficits, no focal weakness. SKIN: No rash, no jaundice, no diaphoresis. Total time spent on discharge = 37 This includes examination of the patient, discharge planning, medication reconciliation, and communication with other providers. Discharge Instructions See patient instructions Additional Copies To Aureliano Hickey PA-C
== END 2017-07-02 09:52 | disposition home or self-care (01) ==
LOC: EDBD 09:05 → C.EDA 09:06 → C.MED 11:26 → ENRESERV 13:03
PROVIDERS: ADMIT Internal Medicine; ATTEND Internal Medicine
DX: R07.9 Chest pain, unspecified (principal); I65.29 Occlusion and stenosis of unspecified carotid artery; E78.5 Hyperlipidemia, unspecified; J44.9 Chronic obstructive pulmonary disease, unspecified; K21.9 Gastro-esophageal reflux disease without esophagitis; M19.90 Unspecified osteoarthritis, unspecified site; M81.0 Age-related osteoporosis without current pathological fracture; G89.29 Other chronic pain; M54.9 Dorsalgia, unspecified; F41.9 Anxiety disorder, unspecified; F17.200 Nicotine dependence, unspecified, uncomplicated

== ENCOUNTER 2017-09-13 15:38 | Observation (INO) | payer OTHER, MEDICARE ==
[~2017-09-13] VITALS: Ht 149.9 cm; Wt 72.0 kg
[~2017-09-13 15:38] MED LIST changes: +ASCO10003 PO; +ATOR-26 PO; +CALC600T PO; -FLUT1INH PO; +FURO20TA PO; -LORA-741 PO; -LPT40 PO; -OMEP40CA41 PO
[2017-09-13] MEDS ORDERED: FLUT1INH PO (15:42)
[2017-09-13] MEDS ORDERED: OMEP40CA41 PO (15:59)
[2017-09-13] MEDS ORDERED: NITROGLYCERIN 0.4 MG SL PER TAB CHARGE SL STA (17:09)
[2017-09-13] MEDS ORDERED: ASPIRIN 81 MG CHEW PO STA (17:09)
[2017-09-13] MEDS ORDERED: SODIUM CHLORIDE 0.9% 500ML 500 ML IV STA (17:12)
[2017-09-13 17:26] LABS: HEMATOCRIT 39.5 % (37-47); HEMOGLOBIN 13.2 g/dL (12.0-16.0); MEAN CELL VOLUME 92.7 fL (80-100); MEAN CORPUSCULAR HGB CONC 33.4 g/dl (32-36); MEAN PLATELET VOLUME 10.2 fL (7.4-10.4); PLATELET COUNT 250 K/uL (130-400); RED CELL DISTRIBUTION WIDTH CV 13.6 % (11.5-14.5); WHITE BLOOD COUNT 10.67 K/uL (4.8-10.8)
[2017-09-13 17:33] LABS: BLOOD UREA NITROGEN 15 mg/dl (7-18); CALCIUM 9.4 mg/dl (8.5-10.1); CARBON DIOXIDE 27 mmol/L (21-32); CREATININE 0.97 mg/dl (0.60-1.20); GLUCOSE 117 mg/dl (70-99); POTASSIUM 3.8 mmol/L (3.5-5.1); SODIUM 137 mmol/L (136-145)
[2017-09-13] MEDS ORDERED: NITROGLYCERIN 0.4 MG SL PER TAB CHARGE SL ONE (17:45)
--- NOTE | 2017-09-13 18:01 | DIAGNOSTIC IMAGING REPORT ---
TWO VIEW CHEST CLINICAL HISTORY: Atypical chest pain.. FINDINGS: PA and lateral chest radiographs are compared to study dated 06/30/2017 and correlated with chest CT dated 05/29/2017. The heart is enlarged and there is atherosclerotic calcification of the thoracic aorta. The pulmonary vasculature is noncongested. There is mild bibasilar atelectasis. The lungs and pleural spaces are otherwise clear. There is no pneumothorax. The skeletal structures are osteopenic. The bony thorax appears intact. Mild degenerative change and hyperkyphosis are seen in the cervical spine. IMPRESSION: Cardiac enlargement with no acute cardiopulmonary abnormality. Electronically signed by: Cb Bennett M.D. 09/13/2017 6:00 PM Dictated Date/Time: 09/13/2017 5:59 PM
[2017-09-13 18:23] LABS: BASO % 0.7 %; BASO ABS # 0.08 K/uL (0-0.2); EOS % 2.4 %; EOS ABS # 0.26 K/uL (0-0.5); IG# 0.03 K/uL (0.00-0.02); LYMPH % 28.2 %; LYMPH ABS # 3.01 K/uL (1.2-3.4); MONO ABS # 0.96 K/uL (0.11-0.59); NEUT % 59.4 %; NEUT ABS # 6.33 K/uL (1.4-6.5)
--- NOTE | 2017-09-13 19:34 | EMERGENCY ROOM VISIT NOTE ---
History Report prepared by Yoli: Sheron Cutler Under the Supervision of: Dr. Davon Garcia M.D. First contact with patient: 17:02 Chief Complaint: CHEST PAIN Stated Complaint: CHEST PAINS, PAIN IN LEFT ARM Nursing Triage Summary: Patient c/o of chest pain and shortness of breath since morning. Patient states "We call the paramedics this morning but I refused to come in." History of Present Illness The patient is a 67 year old female who presents to the Emergency Room with complaints of persistent chest pain starting 0900 this morning. The patient was mopping and dusting when the pain started. At onset, she states the pain was a "20"/10 in severity. She currently rates her discomfort as a 9/10. She describes the pain as sharp and is located in the left side of her chest. The pain does not travel elsewhere. She tried taking 1 nitro around 0915 to no significant relief. She feels SOB and close to losing consciousness. She has not lost consciousness. She is nauseous and has a dry cough. She is wheezing. She has not used any inhalers. She denies any vomiting, diarrhea, or hemoptysis. She denies any recent travel or hormone use. She denies any history of blood clots. She has a history of arthritis and emphysema. She does smoke. She last had a cardiac workup 2 months ago as an inpatient. Source of History: patient Onset: 0900 this morning Position: chest (left) Symptom Intensity: 9/10 Quality: sharp Timing: other (persistent) Associated Symptoms: + cough, + SOB, + nausea, No vomiting, No diarrhea Review of Systems See HPI for pertinent positives and negatives. A total of ten systems were reviewed and were otherwise negative. Past Medical & Surgical Medical Problems: (1) Anxiety (2) Carotid stenosis (3) Chronic back pain (4) COPD (chronic obstructive pulmonary disease) (5) Depression (6) Gastroesophageal reflux disease (7) Hyperlipidemia (8) Osteoarthritis (9) Osteoporosis Surgical Problems: (1) section (2) H/O dilation and curettage (3) History of hysterectomy (4) Hx of shoulder surgery (5) S/P carpal tunnel release Family History FHx: cancer FHx: diabetes FHx: heart disease FHx: hypertension FHx: seizures Myocardial infarction FATHER, Onset:45 Uncle (50s) Social History Smoking Status: Current Every Day Smoker Alcohol Use: none Drug Use: none Marital Status: Housing Status: lives alone Occupation Status: employed Current/Historical Medications Scheduled Alendronate Sodium (Alendronate Sodium), 70 MG PO WK Amitriptyline HCl (Amitriptyline HCl), 20 MG PO HS Ascorbic Acid (Vitamin C), 1 TAB PO DAILY Aspirin (Aspirin Low Dose), 81 MG PO QAM Atorvastatin (Lipitor), 1 TAB PO QPM Calcium Carbonate (Calcium 600), 1 TAB PO BIDM Gabapentin (Gabapentin), 300 MG PO HS Nitroglycerin (Nitrostat), 0.4 MG UT PRN Omeprazole (Prilosec), 40 MG PO DAILY Sertraline (Zoloft), 150 MG PO HS Scheduled PRN Fluticasone Furoate-Vilanterol (Breo Ellipta), 1 PUFF PO DAILY PRN for SOB/ Wheezing Furosemide (Lasix), 1 TAB PO DAILY PRN for swelling Hydrocodone/Acetaminophen 5MG/325MG (Paterson 5MG/325MG), 1 TABLET PO Q6 PRN for Pain Ondansetron Hcl (Zofran), 8 MG PO Q6H PRN for Nausea Tizanidine Hcl (Zanaflex), 4 MG PO Q8 PRN for MUSCLE SPASMS Allergies Coded Allergies: Iodinated Diagnostic Agents (Verified Allergy, Unknown, ., 06/30/17) Penicillins (Verified Allergy, Unknown, 06/30/17) Varenicline (Verified Adverse Reaction, Severe, NAUSEA, 09/13/17) Benzalkonium Chloride (Verified Adverse Reaction, Intermediate, VERTIGO, 06/30/17) Ibuprofen (Verified Adverse Reaction, Intermediate, ACID REFLEX, 09/13/17) Ofloxacin (Verified Adverse Reaction, Intermediate, VERTIGO, 06/30/17) Corticosteroids (Verified Adverse Reaction, Unknown, jittery and hyper, ) Uncoded Allergies: DM-APAP-CPM (Allergy, Severe, ANAPHYLAXIS, 09/13/17) Physical Exam Vital Signs Date Time Temp Pulse Resp B/P (MAP) Pulse Ox O2 Delivery O2 Flow Rate FiO2 09/13/17 18:36 63 18 151/62 97 Nasal Cannula 09/13/17 18:17 65 19 141/63 98 Nasal Cannula 2.0 09/13/17 17:57 72 19 132/70 96 Nasal Cannula 2.0 09/13/17 17:51 64 147/63 98 Nasal Cannula 2.0 09/13/17 17:34 98 Nasal Cannula 2.0 09/13/17 17:15 93 Room Air 09/13/17 17:06 68 09/13/17 17:01 72 19 124/70 93 Room Air 09/13/17 15:43 97 Room Air 09/13/17 15:40 37.3 90 18 146/76 97 Room Air Physical Exam Physical Exam GENERAL: She is oriented to person, place, and time. She appears well- developed and well-nourished. She does not appear distressed. ____ HENT: Exam performed. Head: Normocephalic and atraumatic. Right Ear: External ear normal. No mastoid tenderness. Left Ear: External ear normal. No mastoid tenderness. Mouth/Throat: The oropharynx is clear and moist. No trismus in the jaw. No dental abscesses or uvula swelling. No oropharyngeal exudate or tonsillar abscesses. ____ EYES: Conjunctivae and EOM are normal. Pupils are equal, round, and reactive to light. Right eye exhibits no discharge. Left eye exhibits no discharge. No scleral icterus. ____ NECK: Normal range of motion. Neck supple. No JVD present. No spinous process tenderness present. No carotid bruit present. No rigidity. No tracheal deviation and normal range of motion present. No Brudzinski's sign and no Kernig 's sign noted. ____ CV: Normal rate, regular rhythm, normal heart sounds and intact distal pulses. There is no peripheral edema. Palpable radial pulses bue. ____ PULM/CHEST: Effort normal and breath sounds normal. No respiratory distress. No stridor. She has no wheezes. She has mild rales at the bases. Chest Wall: She exhibits no tenderness. ____ ABD: The abdomen is soft. Bowel sounds are normal. She has no distension. No mass is present. There is no tenderness. There is no rebound, no guarding, no Vasquez's sign and no tenderness at McBurney's point. Rovsig negative MUSC/SKEL: Normal range of motion. There is no peripheral edema, tenderness or deformity. LYMPH: No cervical adenopathy. ____ NEURO: She is alert and oriented to person, place, and time. She has normal strength. No cranial nerve deficit or sensory deficit. Coordination and gait normal. GCS eye subscore is 4. GCS verbal subscore is 5. GCS motor subscore is 6. cerbellar tests wnl. ____ SKIN: Skin is warm and dry. She is not diaphoretic. ____ PSYCH: She has a normal mood and affect. Her behavior is normal. Judgment and thought content normal. ____ Medical Decision & Procedures ER Provider Diagnostic Interpretation: Xray results as stated below per my and radiologist interpretation: TWO VIEW CHEST CLINICAL HISTORY: Atypical chest pain.. FINDINGS: PA and lateral chest radiographs are compared to study dated 06/30/2017 and correlated with chest CT dated 05/29/2017. The heart is enlarged and there is atherosclerotic calcification of the thoracic aorta. The pulmonary vasculature is noncongested. There is mild bibasilar atelectasis. The lungs and pleural spaces are otherwise clear. There is no pneumothorax. The skeletal structures are osteopenic. The bony thorax appears intact. Mild degenerative change and hyperkyphosis are seen in the cervical spine. IMPRESSION: Cardiac enlargement with no acute cardiopulmonary abnormality. Electronically signed by: Cb Bennett M.D. 09/13/2017 6:00 PM Dictated Date/Time: 09/13/2017 5:59 PM Laboratory Results 09/13/17 17:05 Red Blood Count 4.26, Mean Corpuscular Volume 92.7, Mean Corpuscular Hemoglobin 31.0, Mean Corpuscular Hemoglobin Concent 33.4, Mean Platelet Volume 10.2, Neutrophils (%) (Auto) 59.4, Lymphocytes (%) (Auto) 28.2, Monocytes (%) (Auto) 9.0, Eosinophils (%) (Auto) 2.4, Basophils (%) (Auto) 0.7, Neutrophils # (Auto) 6.33, Lymphocytes # (Auto) 3.01, Monocytes # (Auto) 0.96, Eosinophils # (Auto) 0.26, Basophils # (Auto) 0.08 09/13/17 17:05 Test 09/13/17 17:05 White Blood Count 10.67 K/uL (4.8-10.8) Red Blood Count 4.26 M/uL (4.2-5.4) Hemoglobin 13.2 g/dL (12.0-16.0) Hematocrit 39.5 % (37-47) Mean Corpuscular Volume 92.7 fL (80-100) Mean Corpuscular Hemoglobin 31.0 pg (25-34) Mean Corpuscular Hemoglobin Concent 33.4 g/dl (32-36) Platelet Count 250 K/uL (130-400) Mean Platelet Volume 10.2 fL (7.4-10.4) Neutrophils (%) (Auto) 59.4 % Lymphocytes (%) (Auto) 28.2 % Monocytes (%) (Auto) 9.0 % Eosinophils (%) (Auto) 2.4 % Basophils (%) (Auto) 0.7 % Neutrophils # (Auto) 6.33 K/uL (1.4-6.5) Lymphocytes # (Auto) 3.01 K/uL (1.2-3.4) Monocytes # (Auto) 0.96 K/uL (0.11-0.59) Eosinophils # (Auto) 0.26 K/uL (0-0.5) Basophils # (Auto) 0.08 K/uL (0-0.2) RDW Standard Deviation 46.0 fL (36.4-46.3) RDW Coefficient of Variation 13.6 % (11.5-14.5) Immature Granulocyte % (Auto) 0.3 % Immature Granulocyte # (Auto) 0.03 K/uL (0.00-0.02) Anion Gap 5.0 mmol/L (3-11) Est Creatinine Clear Calc Drug Dose 48.8 ml/min Estimated GFR () 70.0 Estimated GFR (Non- 60.4 BUN/Creatinine Ratio 15.1 (10-20) Calcium Level 9.4 mg/dl (8.5-10.1) Troponin I < 0.015 ng/ml (0-0.045) Pro-B-Type Natriuretic Peptide 127 pg/ml (0-900) Laboratory results reviewed by me Medications Administered Medications (Trade) Dose Ordered Sig/Jefferson Route Start Time Stop Time Status Last Admin Dose Admin Aspirin (Aspirin Chew) 324 mg NOW STAT PO 09/13/17 17:09 09/13/17 17:12 DC 09/13/17 17:20 324 MG Sodium Chloride 500 ml @ 999 mls/hr Q31M STAT IV 09/13/17 17:12 09/13/17 17:42 DC 09/13/17 17:21 999 MLS/HR Nitroglycerin (Nitrostat Tab) 0.4 mg Q5M ONCE SL 09/13/17 17:45 09/13/17 17:46 DC 09/13/17 17:49 0.4 MG ECG Indication: chest pain Rate (beats per minute): 76 Rhythm: sinus rhythm Findings: no acute ischemic change, no ectopy, other (NH, QRS, and QTc within normal limits, no ST elevation or ST depression) Change: Patient's electrocardiogram per my interpretation. ED Course 170: The patient was evaluated in room C10. A complete history and physical exam was performed. 170: Aspirin 324 mg PO. 1712: NSS 500 ml @ 999 mls/hr IV. 1730: Repeat EKG at this time as interpreted by me shows SR, rate 66, NH QRS and QTc within normal limits, no ectopy, no ischemia, no ST depression or elevation. 1745: Nitroglycerin 0.4 mg SL. 185: I reevaluated the patient. Vital signs are stable. Patient was previously admitted in June for chest pain. She had a negative troponin, negative echo , and cardiology consult at that time. She was supposed to have outpatient nuclear medicine stress test. Patient states that she never did that. 1912: I discussed the patient's case with Dr. Villagran [facility]. She agrees to evaluate the patient for further management given that the patient is not dependable to follow up as an outpatient. She will bring her in for a stress test and Lexiscan. 1915: Upon reexamination, the patient was stable. I discussed the test results and treatment plan with her. She verbalized agreement and understanding. The patient will be evaluated for further management. Medical Decision I reevaluated the patient. Vital signs are stable. Labs EKG and imaging within normal limits Patient was previously admitted in June for chest pain. She had a negative troponin, negative echo, and cardiology consult at that time. She was supposed to have outpatient nuclear medicine stress test. Patient states that she never did that. I discussed the patient's case with Dr. Villagran [facility]. She agrees to evaluate the patient for further management given that the patient is not dependable to follow up as an outpatient. She will bring her in for a stress test and Lexiscan. Medication Reconcilliation Current Medication List: was personally reviewed by me Blood Pressure Screening Patient's blood pressure: Elevated blood pressure Blood pressure disposition: Elevated BP felt to be situational Consults Time Called: 1899 Consulting Physician: Dr. Villagran [facility] hospitalist Returned Call: 1912 I discussed the patient's case with her. She agrees to evaluate the patient for further management given that the patient is not dependable to follow up as an outpatient. She will bring her in for a stress test and Lexiscan. Impression Primary Impression: Chest pain Scribe Attestation The scribe's documentation has been prepared under my direction and personally reviewed by me in its entirety. I confirm that the note above accurately reflects all work, treatment, procedures, and medical decision making performed by me. The chart was completed utilizing [employer] Speech voice recognition software. Grammatical errors, random word insertions, pronoun errors, and incomplete sentences are an occasional consequence of this system due to software limitations, ambient noise, and hardware issues. Any formal questions or concerns about the content, text, or information contained within the body of this dictation should be directly addressed to the physician for clarification. Departure Information Dispostion Being Evaluated By Hospitalist Referrals Aureliano Hickey PA-C (PCP) Patient Instructions My [facility] Problem Qualifiers Primary Impression: Chest pain Chest pain type: unspecified Qualified Codes: R07.9 - Chest pain, unspecified
[2017-09-13] MEDS ORDERED: NITROGLYCERIN 0.4 MG SL PER TAB CHARGE UT PRN (20:00)
[2017-09-13] MEDS ORDERED: HYDROCODONE/ACETAMOPHEN 5/325MG TAB PO PRN (20:00)
[2017-09-13] MEDS ORDERED: ONDANSETRON INJ 2 MG/ML 2 ML VIAL IV PRN (20:00)
--- NOTE | 2017-09-13 20:23 | HISTORY & PHYSICAL EXAMINATION ---
DATE OF ADMISSION: 09/13/2017 PRIMARY CARE PHYSICIAN: Hortensia Winn MD. CHIEF COMPLAINT: Chest pain since around 9:00 a.m. HISTORY OF PRESENT COMPLAINT: She is a 67-year-old female with significant past medical history including COPD, hyperlipidemia, osteoarthritis, esophageal reflux, depression with anxiety, apparently has been complaining of lower central and precordial chest pain started around 9:00 a.m. The pain started when she was mopping the floor and dusting the benavides as well. The pain started in the lower central chest which was a sharp pain that radiated towards to the left of the chest wall and radiated down the left upper extremity. The pain lasted for more than half an hour and the pain gradually weared off and she also complained with the pain to have nausea but no vomiting, did have some shortness of breath and also some sweating. She did feel dizzy as well. She was well throughout the whole day but in the afternoon, the pain came back and this time not without much exertion and a similar kind of pain. At that time she was rushed to the Emergency Room. She received [address] and she got 1 nitro without any relief. According to her, the pain weared off by itself while in the Emergency Room. In the ER, she has had EKG and cardiac enzymes, chest x-ray which were negative, but given the history of chest pain with more or less typical angina, she was admitted to the telemetry unit for continuation of care. PAST MEDICAL HISTORY: Significant for moderate COPD, hyperlipidemia, GERD, generalized anxiety disorder with depression, osteoarthritis. PAST SURGICAL HISTORY: Significant for carpal tunnel surgery on the left, gallbladder surgery and right shoulder surgery, also hysterectomy. FAMILY HISTORY: Significant in that her father of heart attack at the age of 55 and most of her relative from the father's side has had heart attack. Her brother has hypertension. Her mom has hypertension too. SOCIAL HISTORY: She is , lives alone. She is trying to quit smoking and she does not use any alcohol. She has been reasonably ambulant. REVIEW OF SYSTEMS: CENTRAL NERVOUS SYSTEM: Did have some dizziness, but no headache, no blurred vision, no numbness or tingling or weakness involving any side. RESPIRATORY: No cough or phlegm, did have some shortness of breath but no fever, chills or rigors. CARDIOVASCULAR: Did have chest pain, precordial radiation to left arm with sweating and palpitations. GASTROINTESTINAL: Did have epigastric discomfort with nausea but no vomiting, no abdominal distention and/or pain. GENITOURINARY: No problem with urine and/or bowel habit. MUSCULOSKELETAL: There is osteoarthritis but no acute arthritis at this time. SKIN: Generally, she does not have any rash and/or any lumps anywhere in the body. ALLERGIES: SHE IS ALLERGIC TO IODINATED CONTRAST DYE, PENICILLIN, CHANTIX, BENZALKONIUM CHLORIDE, IBUPROFEN, OFLOXACIN, CORTICOSTEROIDS AND DM -APAP -PM WITH ANAPHYLAXIS. MEDICATIONS: As an outpatient, she has been on alendronate sodium 70 mg every week, amitriptyline 20 mg at night, aspirin 81 mg daily, Lipitor 80 mg daily, furosemide 20 mg daily, gabapentin 300 mg at night, Jackson 5/325 one tablet p.o. q. 6 hourly as needed, nitroglycerin 0.4 mg as directed, Zofran 8 mg as directed, sertraline 150 mg at night and Zanaflex 4 mg q. 8 hourly p.r.n. for muscle spasm. PHYSICAL EXAMINATION: GENERAL: She remains stable at the ER. VITAL SIGNS: Temperature 37.3, pulse of 72, blood pressure 124/70, saturation 93% on room air. HEENT: Unremarkable. NECK: Supple. No JVD, no bruit. CHEST: Clear to auscultate bilaterally. HEART: S1, S2 regular. No murmur appreciated. ABDOMEN: Soft, benign, mildly tender in the epigastrium. No organomegaly. Bowel sounds present. EXTREMITIES: 1+ edema bilaterally. MUSCULOSKELETAL SYSTEM: Did not show any acute arthritis. CENTRAL NERVOUS SYSTEM: She was alert, awake, oriented x3. No focal sensory and/or motor deficit appreciated. LABORATORY DATA: Noted today white count was 10.67, H&H 13.2/39.5, platelet was 250. Sodium 137, potassium 3.8, chloride 105, carbon dioxide 27, BUN 15, creatinine 0.97, random glucose 117. Troponin 1 is less than 0.015. BNP was 127. Chest x-ray: Cardiac enlargement with no acute cardiopulmonary abnormality. EKG was in sinus rhythm, rate of 66 per minute. Normal axis. Compared with EKG in June, no significant change. She had an echocardiogram done that was 06/30/2017, reported as the left ventricle is normal in size. There is mild concentric ventricular hypertrophy. The left ventricular wall motion is normal. The left ventricular systolic function is normal. EF was 60-65%. There is mild tricuspid regurgitation, and right ventricular systolic pressure is elevated at 40-50 mmHg. IMPRESSION AND PLAN: 1. Chest pain seems to be atypical, rule out for myocardial infarction. The patient will be admitted to the telemetry unit. Serial troponin and if ruled out, will have a dobutamine stress echo tomorrow morning.She missed to have OP Persantine stress test following the admission in Jun 2017. 2. Anxiety with depression. We will continue with her current medications for anxiety and depression. He does not have any anxiety attack at this time. 3. Gastroesophageal reflux disease: We will start with Protonix. 4. Hyperlipidemia. Continue with atorvastatin. 5. Deep venous thrombosis prophylaxis with subcutaneous heparin. 6. Code status -- She will be full code. In my clinical assessment, the beneficiary meets criteria as per CMS for 2 midnight stay in the hospital. PATRICIA
[2017-09-13] MEDS ORDERED: IV FLUIDS COMPLETED PRN (20:30)
[2017-09-13] MEDS ORDERED: SERTRALINE HCL 100 MG TAB PO SCH (21:00)
[2017-09-13] MEDS ORDERED: AMITRIPTYLINE HCL 10 MG TAB PO SCH (21:00)
[2017-09-13] MEDS ORDERED: ATORVASTATIN 40 MG TAB PO SCH (21:00)
[2017-09-13] MEDS ORDERED: GABAPENTIN 300 MG CAP PO SCH (21:00)
[2017-09-13 22:00] VITALS: BP 125/70; PULSE 79; TEMP 36.8; O2SAT 92; Ht 149.9 cm; Wt 72.0 kg
[2017-09-13] MEDS: HEPARIN SOD 5000 UNIT/0.5 ML CARP SQ SCH (22:45)
[2017-09-13 23:02] VITALS: BP 104/66; PULSE 57; TEMP 36.6; O2SAT 97
[2017-09-14 05:09] VITALS: BP 101/60; PULSE 62; TEMP 36.6; O2SAT 92
[2017-09-14] MEDS: HEPARIN SOD 5000 UNIT/0.5 ML CARP SQ SCH ×2 (06:00→13:35)
[2017-09-14 07:17] VITALS: BP 105/62; PULSE 60; TEMP 36.8
[2017-09-14 08:00] VITALS: O2SAT 92
[2017-09-14] MEDS ORDERED: CALCIUM CARBONATE 1250MG TAB PO SCH (08:00)
[2017-09-14] MEDS ORDERED: ASPIRIN 81 MG ECTAB PO SCH (09:00)
[2017-09-14] MEDS ORDERED: PANTOprazole SOD 40 MG TAB PO SCH (09:00)
[2017-09-14 09:16] LABS: HEMATOCRIT 38.4 % (37-47); HEMOGLOBIN 12.7 g/dL (12.0-16.0); MEAN CELL VOLUME 92.5 fL (80-100); MEAN CORPUSCULAR HEMOGLOBIN 30.6 pg (25-34); MEAN CORPUSCULAR HGB CONC 33.1 g/dl (32-36); MEAN PLATELET VOLUME 10.2 fL (7.4-10.4); PLATELET COUNT 232 K/uL (130-400); RED CELL DISTRIBUTION WIDTH CV 13.5 % (11.5-14.5); RED CELL DISTRIBUTION WIDTH SD 45.7 fL (36.4-46.3); WHITE BLOOD COUNT 9.16 K/uL (4.8-10.8)
[2017-09-14 09:44] LABS: CALCIUM 9.1 mg/dl (8.5-10.1); CREATININE 0.81 mg/dl (0.60-1.20)
[2017-09-14 09:48] LABS: PHOSPHORUS 3.5 mg/dl (2.5-4.9)
[2017-09-14] MEDS ORDERED: PERFLUTREN LIPID MICROSPHERE (DEFINITY) IV ONE (11:04)
--- NOTE | 2017-09-14 11:06 | DIAGNOSTIC IMAGING REPORT ---
RIBS BILATERAL MIN 3 VIEWS CLINICAL HISTORY: chest wall pain/hx of rib fractures pain COMPARISON STUDY: 09/13/2017 FINDINGS: No acute processes the ribs. Several old rib fractures. Minimal atelectasis left base. Lungs otherwise appear clear. No evidence of pneumothorax. IMPRESSION: No acute abnormality of the ribs. Minimal atelectasis left base. The above report was generated using voice recognition software. It may contain grammatical, syntax or spelling errors. Electronically signed by: Edward Rodriguez M.D. 09/14/2017 11:05 AM Dictated Date/Time: 09/14/2017 11:02 AM
[2017-09-14 11:22] VITALS: BP 132/72; PULSE 71; TEMP 36.5; O2SAT 92
--- NOTE | 2017-09-14 12:16 | CARDIOLOGY CONSULTATION ---
DATE OF CONSULTATION: 09/14/2017 CONSULTATION REQUESTED BY: Dr. Dominguez. REASON FOR CONSULTATION: Reproducible chest pain. HISTORY OF PRESENT ILLNESS: Ms. Fan is a very pleasant 67-year-old woman who presented to [facility] on 09/13/2017 with a complaint of chest pain. The patient states that this is the same pain she has been having for several months now. However, yesterday it appeared to be significantly worsened. She described it as a sharp and stabbing sensation underneath her left breast that she can point to with her finger that occurred when she was mopping the floor. She states that the pain did seem to radiate to the center of her chest and up into her left shoulder, but she denied any associated shortness of breath, nausea, palpitations, lightheadedness, dizziness, or syncope. She states that she just had a weird feeling. At that time, she became concerned and she came into the Emergency Room. She was given nitroglycerin without any relief and then admitted to telemetry unit. Currently, the patient states that her pain was reproduced during the resting echocardiogram when the echo probe hit the spot on her ribs that was the exact same pain that she had brought her in. Of note, the patient also had a dobutamine stress echocardiogram ordered for today; however, that was canceled given the fact that her last dobutamine stress testing did put her into a catatonic state and the patient states that she does believe that would happen again should she have it done today. PAST SURGICAL HISTORY: 1. Carpal tunnel surgery. 2. Cholecystectomy. 3. Shoulder surgery. 4. Hysterectomy. FAMILY HISTORY: Remarkable for father had a fatal myocardial infarction at age 55. MEDICAL ILLNESSES: 1. COPD. 2. Hyperlipidemia. 3. GERD. 4. Generalized anxiety disorder. 5. Depression. 6. Osteoarthritis. 7. History of multiple rib fractures, status post falls. SOCIAL HISTORY: The patient is a lifelong smoker and continues to smoke. Denies any alcohol or recreational drug use. She is and lives by herself. REVIEW OF SYSTEMS: As per HPI. All other review of systems reviewed and negative at this time. ALLERGIES: 1. IODINE CONTRAST DYE. 2. PENICILLIN. 3. CHANTIX. 4. BENZALKONIUM CHLORIDE. 5. IBUPROFEN. 6. OFLOXACIN. 7. CORTICOSTEROIDS. 8. DM-APAP-CMP. MEDICATIONS AN OUTPATIENT: 1. Aspirin 81 mg daily. 2. Atorvastatin 80 mg daily. 3. Lasix 20 mg daily as needed for swelling. 4. Fosamax weekly. 5. Prilosec daily. 6. Elavil daily. 7. Zoloft daily. 8. Breo inhaler as directed. PHYSICAL EXAMINATION: VITAL SIGNS: Temperature 36.5, pulse 71, respiratory rate 12, and blood pressure 132/72. GENERAL: Awake, alert, and oriented x3, in no acute distress. HEENT: Normocephalic and atraumatic. Pupils equal, round, and reactive to light and accommodation. Extraocular muscles intact. Anicteric sclerae. Moist mucous membranes. NECK: No JVD. No bruit. CARDIOVASCULAR: Regular. Positive S4. Normal S1 and S2. No S3. No murmurs or rubs. PULMONARY: Clear to auscultation bilaterally. No rales, rhonchi, or wheezing. ABDOMEN: Bowel sounds x4. Soft. No rebound, guarding, or tenderness. No organomegaly. EXTREMITIES: No clubbing, cyanosis or edema. +2 pedal pulses bilaterally. SKIN: Warm and dry. MUSCULOSKELETAL: Direct palpation of the left 6th rib midclavicular line was able to reproduce the pain. Most recent echocardiogram from June 2017 showed normal LV chamber size with mild concentric LVH, normal LV systolic function without wall motion abnormality, EF 60%-65%, and mild tricuspid regurgitation. Pulmonary hypertension was present. IMPRESSION: 1. Reproducible musculoskeletal chest pain. 2. History of catatonia with dobutamine infusion. 3. History of frequent rib fractures. 4. Medical noncompliance. 5. Ongoing tobacco abuse. RECOMMENDATIONS: It was my pleasure to see Mrs. Fan in consultation today. The patient was counseled given the fact that her chest pain is completely reproducible that it is most likely musculoskeletal in nature. Given her longstanding history of multiple falls and rib fractures, I will order rib series of x-rays at this time and would recommend pain management evaluation for further treatment. Otherwise, the patient was previously scheduled for an outpatient Lexiscan nuclear stress test and I have recommended that she complete that as directed. Otherwise, no other cardiac testing or intervention is necessary at this time. It is okay to discharge the patient to home from a cardiac standpoint. No medication changes will be made.
--- NOTE | 2017-09-14 13:28 | Progress Note ---
Medicine Progress Note Date & Time of Visit: Sep 14, 2017 at 13:21. Subjective seen resting in bed, comfortable states she feels much better left sided chest tenderness improving denies dyspnea, palpitations, dizziness ambulating with no problems states she is ready and would like to be discharged today Objective Last 8 Hrs Date Time Temp Pulse Resp B/P (MAP) Pulse Ox O2 Delivery O2 Flow Rate FiO2 09/14/17 12:00 Room Air 09/14/17 11:22 36.5 71 16 132/72 (92) 92 Room Air 09/14/17 08:00 92 Room Air 09/14/17 07:17 36.8 60 16 105/62 (76) Physical Exam: General- oriented x 3, not in distress, speaks in sentences with no effort Head- atraumatic Eyes- PERRL, EOMI, anicteric ENT- oropharynx clear Neck- supple, no JVD, no adenopathy, no thyromegaly Lungs- clear to auscultation bilaterally Heart- regular rhythm; no murmur, no gallop, no rub appreciated (+) mild point tenderness on the left chest wall Abdomen- normal bowel sounds, soft, nontender Extremities- no pretibial edema, no calf tenderness; peripheral pulses intact Neuro- alert, oriented x 3; no gross deficits Skin- warm & dry Laboratory Results: Last 24 Hours Test 09/13/17 17:05 09/14/17 01:36 09/14/17 08:56 White Blood Count 10.67 K/uL 9.16 K/uL Red Blood Count 4.26 M/uL 4.15 M/uL Hemoglobin 13.2 g/dL 12.7 g/dL Hematocrit 39.5 % 38.4 % Mean Corpuscular Volume 92.7 fL 92.5 fL Mean Corpuscular Hemoglobin 31.0 pg 30.6 pg Mean Corpuscular Hemoglobin Concent 33.4 g/dl 33.1 g/dl Platelet Count 250 K/uL 232 K/uL Mean Platelet Volume 10.2 fL 10.2 fL Neutrophils (%) (Auto) 59.4 % Lymphocytes (%) (Auto) 28.2 % Monocytes (%) (Auto) 9.0 % Eosinophils (%) (Auto) 2.4 % Basophils (%) (Auto) 0.7 % Neutrophils # (Auto) 6.33 K/uL Lymphocytes # (Auto) 3.01 K/uL Monocytes # (Auto) 0.96 K/uL Eosinophils # (Auto) 0.26 K/uL Basophils # (Auto) 0.08 K/uL RDW Standard Deviation 46.0 fL 45.7 fL RDW Coefficient of Variation 13.6 % 13.5 % Immature Granulocyte % (Auto) 0.3 % Immature Granulocyte # (Auto) 0.03 K/uL Prothrombin Time 10.0 SECONDS Prothromb Time International Ratio 1.0 Sodium Level 137 mmol/L 137 mmol/L Potassium Level 3.8 mmol/L 4.0 mmol/L Chloride Level 105 mmol/L 106 mmol/L Carbon Dioxide Level 27 mmol/L 28 mmol/L Anion Gap 5.0 mmol/L 3.0 mmol/L Blood Urea Nitrogen 15 mg/dl 16 mg/dl Creatinine 0.97 mg/dl 0.81 mg/dl Est Creatinine Clear Calc Drug Dose 48.8 ml/min 58.2 ml/min Estimated GFR () 70.0 87.1 Estimated GFR (Non- 60.4 75.2 BUN/Creatinine Ratio 15.1 20.1 Random Glucose 117 mg/dl 103 mg/dl Calcium Level 9.4 mg/dl 9.1 mg/dl Troponin I < 0.015 ng/ml < 0.015 ng/ml < 0.015 ng/ml Pro-B-Type Natriuretic Peptide 127 pg/ml Hepatitis C Antibody Screen NEG Phosphorus Level 3.5 mg/dl Magnesium Level 2.0 mg/dl Triglycerides Level 503 mg/dl Cholesterol Level 339 mg/dl HDL Cholesterol 33 mg/dl LDL Cholesterol, Calculated mg/dl VLDL Cholesterol, Calculated mg/dl Cholesterol/HDL Ratio 10.3 Assessment & Plan IMPRESSION AND PLAN: 1. ATYPICAL CHEST PAIN, LIKELY MUSCULOSKELETAL STRAIN - patient's chest pain reproducible with palpation - troponin negative x 3 serial EKGs: no acute ischemia - evaluated by Dr. Cabrales- [facility] Licensed Psychologist patient had catatonic reaction with Dobutamine stress test in the past recommend outpatient Lexican Stress Test c/o [facility] - cleared for d/c home by Cardiology no changes with medications - advised to avoid heavy exertion, take PRN analgesic for pain 2. Anxiety with depression. - no acute issues - continue usual medications 3. Gastroesophageal reflux disease: - continue Prilosec 4. Hyperlipidemia. Continue with atorvastatin. 5. Deep venous thrombosis prophylaxis with subcutaneous heparin. Disposition d/c today ff up with PCP in 3-5 days ff up with Cardiology for outpatient Lexiscan Stress Test Current Inpatient Medications: Current Inpatient Medications Medications (Trade) Dose Ordered Sig/[place] Route Start Time Stop Time Status Last Admin Dose Admin Heparin Sodium (Porcine) (Heparin Sq 5000 Unit/0.5ml) 5,000 unit Q8 SQ 09/13/17 22:45 10/13/17 22:44 Ondansetron HCl (Zofran Inj) 4 mg Q6H PRN IV 09/13/17 20:00 10/13/17 19:59 Amitriptyline HCl (Elavil Tab) 20 mg HS PO 09/13/17 21:00 10/13/17 20:59 09/13/17 21:47 20 MG Aspirin (Ecotrin Tab) 81 mg QAM PO 09/14/17 09:00 10/14/17 08:59 09/14/17 08:09 81 MG Atorvastatin Calcium (Lipitor Tab) 80 mg QPM PO 09/13/17 21:00 10/13/17 20:59 09/13/17 21:46 80 MG Gabapentin (Neurontin Cap) 300 mg HS PO 09/13/17 21:00 10/13/17 20:59 09/13/17 21:45 300 MG Acetaminophen/ Hydrocodone Bitart ([place] 5/325 Tab) 1 tab Q6 PRN PO 09/13/17 20:00 09/27/17 19:59 Nitroglycerin (Nitrostat Tab) 0.4 mg UD PRN UT 09/13/17 20:00 10/13/17 19:59 Sertraline HCl (Zoloft Tab) 150 mg HS PO 09/13/17 21:00 10/13/17 20:59 09/13/17 21:46 150 MG Tizanidine HCl (Zanaflex Tab) 4 mg Q8 PRN PO 09/13/17 20:00 10/13/17 19:59 Calcium Carbonate (oS-Sinan 500 TAB) 1,250 mg BIDM PO 09/14/17 08:00 10/14/17 07:59 09/14/17 08:10 1,250 MG Miscellaneous Information (Order Awaiting Action) 1 ea QS N/A 09/14/17 00:00 10/14/17 00:00 Pantoprazole Sodium (Protonix Tab) 40 mg DAILY PO 09/14/17 09:00 10/14/17 08:59 09/14/17 08:10 40 MG Miscellaneous (Iv Fluids Completed) 1 ea PRN PRN N/A 09/13/17 20:30 09/13/18 20:29
--- NOTE | 2017-09-14 13:35 | Discharge Instructions ---
Discharge Instructions Date of Service Sep 14, 2017. Admission Reason for Admission: Chest Pain, Copd, Depression Discharge Discharge Diagnosis / Problem: CHEST PAIN Discharge Goals Goal(s): Diagnostic testing, Therapeutic intervention Activity Recommendations Activity Limitations: as noted below (NO HEAVY EXERTION UNTIL RE-EVALUATED BY PRIMARY CARE PHYSICIAN) Lifting Limitations: until after follow-up appointment Exercise/Sports Limitations: until after follow-up appointment . Instructions / Follow-Up Instructions / Follow-Up PLEASE CALL YOUR PRIMARY CARE PHYSICIAN OR RETURN TO ER IMMEDIATELY IF WITH RECURRENCE OF SYMPTOMS. FOLLOW UP WITH PRIMARY CARE PROVIDER DR. MODI ON Monday09/11/17 AT 1025 AM. FOLLOW UP WITH [employer] ENGAGEMENT PLANNING OPERATOR FOR OUTPATIENT STRESS TEST. TEL NO. Current Hospital Diet Patient's current hospital diet: AHA Diet (Heart Healthy) Discharge Diet Recommended Diet: AHA Diet (Heart Healthy) Procedures Procedures Performed: CHEST XRAY, RIB XRAY Pending Studies Studies pending at discharge: yes List of pending studies: LEXISCAN STRESS TEST Laboratory Results Lipid Panel Test 09/14/17 08:56 Range/Units Triglycerides Level 503 H 0-150 mg/dl Cholesterol Level 339 H 0-200 mg/dl HDL Cholesterol 33 mg/dl Cholesterol/HDL Ratio 10.3 LDL Cholesterol, Calculated mg/dl Medical Emergencies . Who to Call and When: Medical Emergencies: If at any time you feel your situation is an emergency, please call 911 immediately. . Non-Emergent Contact Non-Emergency issues call your: Primary Care Provider, Hand [employer] Sander Call Non-Emergent contact if: you have a fever, your pain is not controlled, your pain is worsening, you have any medication questions . . "Provider Documentation" section prepared by Siddharth Dominguez. . VTE Core Measure Inpt VTE Proph given/why not?: Unfractionated heparin SQ
--- NOTE | 2017-09-14 13:39 | Discharge Summary ---
Discharge Summary Date of Service Sep 14, 2017. Discharge Summary Admission Date: Sep 13, 2017 at 19:58 Discharge Date: Sep 14, 2017 Discharge Disposition: Home Principal Diagnosis: ATYPICAL CHEST PAIN, LIKELY MUSCULOSKELETAL STRAIN Secondary Diagnoses/Problems: Please refer to hospital course below. Procedures: RIBS BILATERAL MIN 3 VIEWS CLINICAL HISTORY: chest wall pain/hx of rib fractures pain COMPARISON STUDY: 09/13/2017 FINDINGS: No acute processes the ribs. Several old rib fractures. Minimal atelectasis left base. Lungs otherwise appear clear. No evidence of pneumothorax. IMPRESSION: No acute abnormality of the ribs. Minimal atelectasis left base. TWO VIEW CHEST CLINICAL HISTORY: Atypical chest pain.. FINDINGS: PA and lateral chest radiographs are compared to study dated 06/30/2017 and correlated with chest CT dated 05/29/2017. The heart is enlarged and there is atherosclerotic calcification of the thoracic aorta. The pulmonary vasculature is noncongested. There is mild bibasilar atelectasis. The lungs and pleural spaces are otherwise clear. There is no pneumothorax. The skeletal structures are osteopenic. The bony thorax appears intact. Mild degenerative change and hyperkyphosis are seen in the cervical spine. IMPRESSION: Cardiac enlargement with no acute cardiopulmonary abnormality. Consultations: [facility] Screen Printer Helper Dr. Cabrales Pending Studies/Follow-Up: Outpatient Lexiscan Stress Test- please arrange for patient. Please refer to hospital course below for further details. Medication Reconciliation Continued Medications: Alendronate Sodium (Alendronate Sodium) 70 Mg Tab 70 MG PO WK SATURDAYS. Amitriptyline HCl (Amitriptyline HCl) 10 Mg Tab 20 MG PO HS Ascorbic Acid (Vitamin C) 1,000 Mg Tab 1 TAB PO DAILY Aspirin (Aspirin Low Dose) 81 Mg Tab 81 MG PO QAM Atorvastatin (Lipitor) 80 Mg Tab 1 TAB PO QPM for 30 Days, TAB 5 Refills Calcium Carbonate (Calcium 600) 600 Mg Tab 1 TAB PO BIDM Fluticasone Furoate-Vilanterol (Breo Ellipta) 1 Inh Inh 1 PUFF PO DAILY PRN for SOB/Wheezing Furosemide (Lasix) 20 Mg Tab 1 TAB PO DAILY PRN for swelling for 90 Days, #90 TAB 1 Refill Gabapentin (Gabapentin) 300 Mg Cap 300 MG PO HS, #30 Hydrocodone/Acetaminophen 5MG/325MG ([place] 5MG/325MG) Tab 1 TABLET PO Q6 PRN for Pain, TAB Nitroglycerin (Nitrostat) 0.4 Mg Tab 0.4 MG UT PRN, BTL Omeprazole (Prilosec) 40 Mg Cap 40 MG PO DAILY, #30 Ondansetron Hcl (Zofran) 4 Mg Tab 8 MG PO Q6H PRN for Nausea, TAB Sertraline (Zoloft) 100 Mg Tab 150 MG PO HS, TAB Tizanidine Hcl (Zanaflex) 4 Mg Cap 4 MG PO Q8 PRN for MUSCLE SPASMS Admission Information HPI (per Admitting provider): DATE OF ADMISSION: 09/13/2017 PRIMARY CARE PHYSICIAN: Hortensia Winn MD. CHIEF COMPLAINT: Chest pain since around 9:00 a.m. HISTORY OF PRESENT COMPLAINT: She is a 67-year-old female with significant past medical history including COPD, hyperlipidemia, osteoarthritis, esophageal reflux, depression with anxiety, apparently has been complaining of lower central and precordial chest pain started around 9:00 a.m. The pain started when she was mopping the floor and dusting the benavides as well. The pain started in the lower central chest which was a sharp pain that radiated towards to the left of the chest wall and radiated down the left upper extremity. The pain lasted for more than half an hour and the pain gradually weared off and she also complained with the pain to have nausea but no vomiting, did have some shortness of breath and also some sweating. She did feel dizzy as well. She was well throughout the whole day but in the afternoon, the pain came back and this time not without much exertion and a similar kind of pain. At that time she was rushed to the Emergency Room. She received [address] and she got 1 nitro without any relief. According to her, the pain weared off by itself while in the Emergency Room. In the ER, she has had EKG and cardiac enzymes, chest x-ray which were negative, but given the history of chest pain with more or less typical angina, she was admitted to the telemetry unit for continuation of care. PAST MEDICAL HISTORY: Significant for moderate COPD, hyperlipidemia, GERD, generalized anxiety disorder with depression, osteoarthritis. PAST SURGICAL HISTORY: Significant for carpal tunnel surgery on the left, gallbladder surgery and right shoulder surgery, also hysterectomy. FAMILY HISTORY: Significant in that her father of heart attack at the age of 55 and most of her relative from the father's side has had heart attack. Her brother has hypertension. Her mom has hypertension too. SOCIAL HISTORY: She is , lives alone. She is trying to quit smoking and she does not use any alcohol. She has been reasonably ambulant. REVIEW OF SYSTEMS: CENTRAL NERVOUS SYSTEM: Did have some dizziness, but no headache, no blurred vision, no numbness or tingling or weakness involving any side. RESPIRATORY: No cough or phlegm, did have some shortness of breath but no fever, chills or rigors. CARDIOVASCULAR: Did have chest pain, precordial radiation to left arm with sweating and palpitations. GASTROINTESTINAL: Did have epigastric discomfort with nausea but no vomiting, no abdominal distention and/or pain. GENITOURINARY: No problem with urine and/or bowel habit. MUSCULOSKELETAL: There is osteoarthritis but no acute arthritis at this time. SKIN: Generally, she does not have any rash and/or any lumps anywhere in the body. Physical Exam (per Admitting): GENERAL: She remains stable at the ER. VITAL SIGNS: Temperature 37.3, pulse of 72, blood pressure 124/70, saturation 93% on room air. HEENT: Unremarkable. NECK: Supple. No JVD, no bruit. CHEST: Clear to auscultate bilaterally. HEART: S1, S2 regular. No murmur appreciated. ABDOMEN: Soft, benign, mildly tender in the epigastrium. No organomegaly. Bowel sounds present. EXTREMITIES: 1+ edema bilaterally. MUSCULOSKELETAL SYSTEM: Did not show any acute arthritis. CENTRAL NERVOUS SYSTEM: She was alert, awake, oriented x3. No focal sensory and/or motor deficit appreciated. Hospital Course 1. ATYPICAL CHEST PAIN, LIKELY MUSCULOSKELETAL STRAIN - patient's chest pain reproducible with palpation - troponin negative x 3 serial EKGs: no acute ischemia - evaluated by Dr. Cabrales- [facility] Screen Printer Helper patient had catatonic reaction with Dobutamine stress test in the past recommend outpatient [facility] Stress Test c/o [facility]- please arrange for patient. - cleared for d/c home by Cardiology no changes with medications - advised to avoid heavy exertion, take PRN analgesic for pain 2. Anxiety with depression. - no acute issues - continue usual medications 3. Gastroesophageal reflux disease: - continue Prilosec 4. Hyperlipidemia. Continue with atorvastatin. 5, Smoker - counselled on cessation 5. Deep venous thrombosis prophylaxis with subcutaneous heparin. Disposition d/c today ff up with PCP in 3-5 days ff up with Cardiology for outpatient Lexiscan Stress Test Total time spent on discharge = 25 minutes This includes examination of the patient, discharge planning, medication reconciliation, and communication with other providers. Discharge Instructions Discharge Instructions Date of Service Sep 14, 2017. Admission Reason for Admission: Chest Pain, Copd, Depression Discharge Discharge Diagnosis / Problem: CHEST PAIN Discharge Goals Goal(s): Diagnostic testing, Therapeutic intervention Activity Recommendations Activity Limitations: as noted below (NO HEAVY EXERTION UNTIL RE-EVALUATED BY PRIMARY CARE PHYSICIAN) Lifting Limitations: until after follow-up appointment Exercise/Sports Limitations: until after follow-up appointment . Instructions / Follow-Up Instructions / Follow-Up PLEASE CALL YOUR PRIMARY CARE PHYSICIAN OR RETURN TO ER IMMEDIATELY IF WITH RECURRENCE OF SYMPTOMS. FOLLOW UP WITH PRIMARY CARE PROVIDER DR. MODI ON Monday09/11/17 AT 1025 AM. FOLLOW UP WITH PROMOTIONS DIRECTOR FOR OUTPATIENT STRESS TEST. TEL NO. Current Hospital Diet Patient's current hospital diet: AHA Diet (Heart Healthy) Discharge Diet Recommended Diet: AHA Diet (Heart Healthy) Procedures Procedures Performed: CHEST XRAY, RIB XRAY Pending Studies Studies pending at discharge: yes List of pending studies: LEXISCAN STRESS TEST Laboratory Results Lipid Panel Test 09/14/17 08:56 Range/Units Triglycerides Level 503 H 0-150 mg/dl Cholesterol Level 339 H 0-200 mg/dl HDL Cholesterol 33 mg/dl Cholesterol/HDL Ratio 10.3 LDL Cholesterol, Calculated mg/dl Medical Emergencies . Who to Call and When: Medical Emergencies: If at any time you feel your situation is an emergency, please call 911 immediately. . Non-Emergent Contact Non-Emergency issues call your: Primary Care Provider, [employer] Screen Printer Helper Call Non-Emergent contact if: you have a fever, your pain is not controlled, your pain is worsening, you have any medication questions . .
[2017-09-14 13:50] VITALS: BP 132/72; PULSE 71; TEMP 36.5; O2SAT 92
--- NOTE | 2017-09-14 15:56 | ECHOCARDIOGRAM REPORT ---
*NOTICE TO RECEIVING REPUBLICAN AGENCY This information is strictly Confidential and protected under [place] law. [place] law prohibits you from making any further disclosure of this information unless further disclosure is expressly permitted by the written consent of the person to whom it pertains or is authorized by law. A general authorization for the release of medical or other information is not sufficient for this purpose. Hospital accepts no responsibility if the information is made available to any other person, INCLUDING THE PATIENT. Interpretation Summary * Name: NAOMI ARANA Study Date: 09/14/2017 09:04 AM BP: 105/62 mmHg * Patient Location: [facility] HR: 60 * : 1950 (M/d/yyyy) Gender: Female Height: 59 in * Age: 67 yrs Ethnicity: [place] Weight: 159 lb * Ordering Physician: Roslyn Arguello * Referring Physician: Self, Referred * Performed By: Claire Leiva RDCS * * Reason For Study: Chest pain * BSA: 1.7 m2 * -- Conclusions -- * Normal LV chamber size with mild concentric LVH. * Normal LV systolic function, EF 60-65%. * No segmental left ventricular wall motion abnormalities are * noted. * Grade II diastolic dysfunction. * No significant valvular pathology. Procedure Details * A complete two-dimensional transthoracic echocardiogram was performed (2D, M-mode, Doppler and color flow Doppler). Left Ventricle * The left ventricle is normal in size. * There is mild concentric left ventricular hypertrophy. * Ejection Fraction = 65-70%. * Left ventricular systolic function is normal. * No segmental left ventricular wall motion abnormalities are noted. * The left ventricular wall motion is normal. Right Ventricle * The right ventricular cavity size is normal (basal dimension <4.2 cm in right ventricular apical 4-chamber view). * The right ventricular systolic function is normal as assessed by tricuspid annular plane systolic excursion (TAPSE) (normal >1.5 cm). Atria * The left atrial size is normal. * Right atrial size is normal. * No ASD detected; PFO is not assessed. Mitral Valve * The mitral valve is normal in structure and function. Tricuspid Valve * The tricuspid valve is normal in structure and function. Aortic Valve * The aortic valve is not well visualized. * No hemodynamically significant valvular aortic stenosis. * There is no significant aortic regurgitation. Pulmonic Valve * The pulmonary valve is not well seen, but the Doppler examination is normal without significant regurgitation or stenosis. Great Vessels * The aortic root is normal size. Pericardium/Pleural * There is no pericardial effusion. Left Ventricular Diastolic Function * Diastolic dysfunction, Grade II (pseudonormalization pattern). MMode 2D Measurements and Calculations IVSd 1.1 cm LVIDd 4.2 cm LVIDs 2.8 cm LVPWd 1.1 cm IVS/LVPW 1.0 FS 32.4 % EDV(Teich) 77.2 ml ESV(Teich) 30.0 ml EF(Teich) 61.1 % EDV(cubed) 72.5 ml ESV(cubed) 22.4 ml EF(cubed) 69.1 % LV mass(C)d 156.9 grams LV mass(C)dI 93.8 grams/m\S\2 SV(Teich) 47.2 ml SI(Teich) 28.2 ml/m\S\2 SV(cubed) 50.1 ml SI(cubed) 29.9 ml/m\S\2 Ao root diam 2.2 cm Ao root area 3.9 cm\S\2 ACS 1.7 cm LA dimension 2.5 cm asc Aorta Diam 2.1 cm LA/Ao 1.1 LVOT diam 1.9 cm LVOT area 2.9 cm\S\2 LVAd ap4 29.3 cm\S\2 LVLd ap4 7.3 cm EDV(MOD-sp4) 98.3 ml EDV(sp4-el) 99.4 ml LVAs ap4 14.2 cm\S\2 LVLs ap4 5.3 cm ESV(MOD-sp4) 32.1 ml ESV(sp4-el) 32.5 ml EF(MOD-sp4) 67.4 % EF(sp4-el) 67.3 % LVAd ap2 21.6 cm\S\2 LVLd ap2 6.5 cm EDV(MOD-sp2) 58.8 ml EDV(sp2-el) 61.0 ml LVAs ap2 11.0 cm\S\2 LVLs ap2 5.2 cm ESV(MOD-sp2) 20.0 ml ESV(sp2-el) 19.9 ml EF(MOD-sp2) 66.0 % EF(sp2-el) 67.4 % LVLd %diff -12.48 % EDV(MOD-bp) 80.1 ml LVLs %diff -1.84 % ESV(MOD-bp) 25.7 ml EF(MOD-bp) 67.9 % SV(MOD-sp4) 66.3 ml SI(MOD-sp4) 39.6 ml/m\S\2 SV(MOD-sp2) 38.8 ml SI(MOD-sp2) 23.2 ml/m\S\2 SV(MOD-bp) 54.4 ml SI(MOD-bp) 32.5 ml/m\S\2 SV(sp4-el) 66.9 ml SI(sp4-el) 40.0 ml/m\S\2 SV(sp2-el) 41.1 ml SI(sp2-el) 24.6 ml/m\S\2 Doppler Measurements and Calculations MV E max vivienne 90.6 cm/sec MV A max vivienne 64.7 cm/sec MV E/A 1.4 MV dec time 0.21 sec Ao V2 max 115.4 cm/sec Ao max PG 5.3 mmHg Ao max PG (full) 1.6 mmHg TAVIA(V,A) 2.4 cm\S\2 TAVIA(V,D) 2.4 cm\S\2 LV V1 max PG 3.8 mmHg LV V1 max 97.1 cm/sec PA V2 max 72.8 cm/sec PA max PG 2.1 mmHg PA acc slope 521.6 cm/sec\S\2 PA acc time 0.11 sec TR max vivienne 266.0 cm/sec PA pr(Accel) 31.1 mmHg
== END 2017-09-14 14:25 | disposition home or self-care (01) ==
LOC: C.EDB 15:40 → C.MED 19:58 → ENRESERV 20:20
PROVIDERS: ADMIT Internal Medicine; ATTEND Internal Medicine
DX: R07.89 Other chest pain (principal); M81.0 Age-related osteoporosis without current pathological fracture; J44.9 Chronic obstructive pulmonary disease, unspecified; F41.8 Other specified anxiety disorders; F17.200 Nicotine dependence, unspecified, uncomplicated; K21.9 Gastro-esophageal reflux disease without esophagitis; E78.5 Hyperlipidemia, unspecified; M19.90 Unspecified osteoarthritis, unspecified site; Z83.3 Family history of diabetes mellitus; Z82.49 Family history of ischemic heart disease and other diseases of the circulatory system; Z82.0 Family history of epilepsy and other diseases of the nervous system; Z79.82 Long term (current) use of aspirin; Z79.899 Other long term (current) drug therapy; Z91.19 Patient's noncompliance with other medical treatment and regimen

== ENCOUNTER 2017-12-07 10:30 | Emergency (ER) | payer OTHER, MEDICARE ==
[~2017-12-07 10:30] MED LIST changes: -ERGO500037 PO; +FLUT1INH PO; +GABA-1219 PO; -GABA1CAP4 PO; +OMEP40CA41 PO
[2017-12-07 10:32] VITALS: TEMP 36.9; Ht 149.9 cm
[2017-12-07] MEDS ORDERED: MoRPHine SULFATE 4 MG/ML 1 ML CARP\\VIAL IV STA (10:53)
[2017-12-07] MEDS ORDERED: ONDANSETRON INJ 2 MG/ML 2 ML VIAL IV STA (10:53)
[2017-12-07 11:18] LABS: BASO % 0.6 %; BASO ABS # 0.06 K/uL (0-0.2); EOS % 1.8 %; IG# 0.04 K/uL (0.00-0.02); LYMPH % 30.2 %; LYMPH ABS # 3.29 K/uL (1.2-3.4); MEAN CELL VOLUME 90.7 fL (80-100); MEAN CORPUSCULAR HGB CONC 34.2 g/dl (32-36); MONO % 7.4 %; MONO ABS # 0.81 K/uL (0.11-0.59); NEUT % 59.6 %; PLATELET COUNT 254 K/uL (130-400); RED CELL DISTRIBUTION WIDTH CV 13.5 % (11.5-14.5); RED CELL DISTRIBUTION WIDTH SD 44.4 fL (36.4-46.3)
[2017-12-07] MEDS ORDERED: LPT/40 PO (11:26)
[2017-12-07] MEDS ORDERED: LORA-741 PO (11:27)
--- NOTE | 2017-12-07 11:28 | DIAGNOSTIC IMAGING REPORT ---
CT SCAN OF THE ABDOMEN AND PELVIS WITHOUT CONTRAST CLINICAL HISTORY: Right flank pain. COMPARISON STUDY: 09/17/2016 TECHNIQUE: CT scan of the abdomen and pelvis was performed from the lung bases to the proximal femurs. Images are reviewed in the axial, sagittal, and coronal planes. IV contrast was not administered for this examination. A dose lowering technique was utilized adhering to the principles of ALARA. CT DOSE: There is bibasilar atelectasis. FINDINGS: Lower chest: The heart is normal in size and configuration, without pericardial effusion. The lung bases and pleural spaces are clear. Liver: There is an 11 mm right lobe hepatic hypodensity, likely are presenting a cyst. There is no ductal dilatation. Gallbladder: Surgically absent Spleen: Normal in size and attenuation. Pancreas: Unremarkable. Adrenal glands: Unremarkable. Kidneys: No renal, ureteral, or bladder calculi are visualized. Bowel: There are no transition zones indicate bowel obstruction. The base of the appendix is dilated but contains air. There are no periappendiceal inflammatory changes. The mid and distal portions the appendix appear normal. The examination is felt to be negative for acute appendicitis. Peritoneum: There is no intraperitoneal free air or abdominal ascites. Vasculature: The abdominal aorta is normal in course and caliber. Adenopathy: None. Pelvic viscera: The uterus is surgically absent Skeletal structures: No destructive osseous lesions are seen. IMPRESSION: 1. No evidence of bowel obstruction. No evidence of free air 2. No renal, ureteral, or bladder calculi identified 3. No evidence of acute appendicitis Electronically signed by: Jose Hairston M.D. 12/07/2017 11:27 AM Dictated Date/Time: 12/07/2017 11:16 AM
[2017-12-07 11:47] LABS: ALBUMIN 3.5 gm/dl (3.4-5.0); ALT/SGPT 22 U/L (12-78); AST/SGOT 17 U/L (15-37); BLOOD UREA NITROGEN 16 mg/dl (7-18); CALCIUM 9.3 mg/dl (8.5-10.1); CARBON DIOXIDE 25 mmol/L (21-32); CREATININE 0.95 mg/dl (0.60-1.20); GLUCOSE 110 mg/dl (70-99); LIPASE 107 U/L (73-393); POTASSIUM 3.8 mmol/L (3.5-5.1); SODIUM 137 mmol/L (136-145)
[2017-12-07 11:50] LABS: ALKALINE PHOSPHATASE 103 U/L (45-117); TOTAL PROTEIN 7.7 gm/dl (6.4-8.2)
[2017-12-07] MEDS ORDERED: HYDROmorphone INJ 1 MG/ML SYR IV STA (12:29)
[2017-12-07 13:27] VITALS: BP 163/77; PULSE 73; O2SAT 96
--- NOTE | 2017-12-07 18:54 | EMERGENCY ROOM VISIT NOTE ---
History Report prepared by Yoli: Shama Farmer Under the Supervision of: Dr. Aureliano Jc M.D. First contact with patient: 10:46 Chief Complaint: ABDOMINAL PAIN Stated Complaint: SEVERE PAIN IN RT SIDE History of Present Illness The patient is a 67 year old female who presents to the Emergency Room with complaints of sudden abdominal pain beginning 0500 this morning. She reports that the pain sometimes radiates to her back, and describes the pain as being sharp. She states that she has had kidney stones before and states that this may be a kidney stone. The patient reports feeling nauseous, but denies vomiting. She reports having pain with urination in her side, but denies having blood in her urine and denies burning with urination. She also denies having a cough, chest pain, and shortness of breath. The patient reports a history of an enlarged heart. Source of History: patient Onset: 0500 this morning Position: abdomen Quality: sharp Timing: other (sudden ) Associated Symptoms: + nausea, + urinary symptoms (pain with urination ), No cough, No chest pain, No SOB, No vomiting Note: denies: blood in urine, burning with urination Review of Systems See HPI for pertinent positives & negatives. A total of 10 systems reviewed and were otherwise negative. Past Medical & Surgical Medical Problems: (1) Anxiety (2) Carotid stenosis (3) Chronic back pain (4) COPD (chronic obstructive pulmonary disease) (5) Depression (6) Gastroesophageal reflux disease (7) Hyperlipidemia (8) Osteoarthritis (9) Osteoporosis Surgical Problems: (1) section (2) H/O dilation and curettage (3) History of hysterectomy (4) Hx of shoulder surgery (5) S/P carpal tunnel release Family History FHx: cancer FHx: diabetes FHx: heart disease FHx: hypertension FHx: seizures Myocardial infarction FATHER, Onset:45 Uncle (50s) Social History Smoking Status: Current Every Day Smoker Alcohol Use: none Drug Use: none Marital Status: Housing Status: lives alone Occupation Status: employed Current/Historical Medications Scheduled Alendronate Sodium (Alendronate Sodium), 70 MG PO WK Amitriptyline HCl (Amitriptyline HCl), 20 MG PO HS Aspirin (Aspirin Low Dose), 81 MG PO QAM Atorvastatin (Lipitor), 40 MG PO DAILY Gabapentin (Gabapentin), 300 MG PO HS Nitroglycerin (Nitrostat), 0.4 MG UT PRN Omeprazole (Prilosec), 40 MG PO DAILY Sertraline (Zoloft), 150 MG PO HS Scheduled PRN Fluticasone Furoate-Vilanterol (Breo Ellipta), 1 PUFF PO DAILY PRN for SOB/ Wheezing Hydrocodone/Acetaminophen 5MG/325MG ([place] 5MG/325MG), 1 TABLET PO Q4 PRN for Pain Lorazepam (Ativan), 0.5 MG PO Q6H PRN for Anxiety/Agitation Ondansetron Hcl (Zofran), 8 MG PO Q6H PRN for Nausea Tizanidine Hcl (Zanaflex), 4 MG PO Q8 PRN for MUSCLE SPASMS Allergies Coded Allergies: Iodinated Diagnostic Agents (Verified Allergy, Unknown, ., 12/07/17) Penicillins (Verified Allergy, Unknown, 12/07/17) Varenicline (Verified Adverse Reaction, Severe, NAUSEA, 12/07/17) Benzalkonium Chloride (Verified Adverse Reaction, Intermediate, VERTIGO, ) Ibuprofen (Verified Adverse Reaction, Intermediate, ACID REFLEX, 12/07/17) Ofloxacin (Verified Adverse Reaction, Intermediate, VERTIGO, 12/07/17) Corticosteroids (Verified Adverse Reaction, Unknown, jittery and hyper, ) Uncoded Allergies: DM-APAP-CPM (Allergy, Severe, ANAPHYLAXIS, 09/13/17) Physical Exam Vital Signs Date Time Temp Pulse Resp B/P (MAP) Pulse Ox O2 Delivery O2 Flow Rate FiO2 12/07/17 13:27 73 18 163/77 96 Room Air 12/07/17 12:59 68 16 125/50 97 Room Air 12/07/17 12:10 71 18 140/60 94 Room Air 12/07/17 10:32 36.9 88 20 129/54 96 Room Air Physical Exam Constitutional: Vital signs reviewed. Eyes: Pupils are equal round reactive to light. Conjunctiva are noninjected. ENT: Pharynx is clear without erythema or exudate. Mucous membranes are moist. Neck supple without meningeal signs. Respiratory: Clear to auscultation bilaterally. Breath sounds are equal bilaterally. Cardiovascular: Regular rate and rhythm. No rubs or gallops. GI: Soft, nondistended. Right mid and lower abdominal tenderness. Bowel sounds are present. Musculoskeletal: No peripheral edema. No lower extremity tenderness. No CVA tenderness. Integumentary: No cyanosis. Neurological: The patient is awake and alert. No focal deficits. Psychiatric: Normal affect. Medical Decision & Procedures ER Provider Diagnostic Interpretation: Radiology results as stated below per my review and the radiologist's interpretation: CT SCAN OF THE ABDOMEN AND PELVIS WITHOUT CONTRAST CLINICAL HISTORY: Right flank pain. COMPARISON STUDY: 09/17/2016 TECHNIQUE: CT scan of the abdomen and pelvis was performed from the lung bases to the proximal femurs. Images are reviewed in the axial, sagittal, and coronal planes. IV contrast was not administered for this examination. A dose lowering technique was utilized adhering to the principles of ALARA. CT DOSE: There is bibasilar atelectasis. FINDINGS: Lower chest: The heart is normal in size and configuration, without pericardial effusion. The lung bases and pleural spaces are clear. Liver: There is an 11 mm right lobe hepatic hypodensity, likely are presenting a cyst. There is no ductal dilatation. Gallbladder: Surgically absent Spleen: Normal in size and attenuation. Pancreas: Unremarkable. Adrenal glands: Unremarkable. Kidneys: No renal, ureteral, or bladder calculi are visualized. Bowel: There are no transition zones indicate bowel obstruction. The base of the appendix is dilated but contains air. There are no periappendiceal inflammatory changes. The mid and distal portions the appendix appear normal. The examination is felt to be negative for acute appendicitis. Peritoneum: There is no intraperitoneal free air or abdominal ascites. Vasculature: The abdominal aorta is normal in course and caliber. Adenopathy: None. Pelvic viscera: The uterus is surgically absent Skeletal structures: No destructive osseous lesions are seen. IMPRESSION: 1. No evidence of bowel obstruction. No evidence of free air 2. No renal, ureteral, or bladder calculi identified 3. No evidence of acute appendicitis Electronically signed by: Jose Hairston M.D. 12/07/2017 11:27 AM Dictated Date/Time: 12/07/2017 11:16 AM Laboratory Results 12/07/17 10:45 Red Blood Count 4.19, Mean Corpuscular Volume 90.7, Mean Corpuscular Hemoglobin 31.0, Mean Corpuscular Hemoglobin Concent 34.2, Mean Platelet Volume 10.0, Neutrophils (%) (Auto) 59.6, Lymphocytes (%) (Auto) 30.2, Monocytes (%) (Auto) 7.4, Eosinophils (%) (Auto) 1.8, Basophils (%) (Auto) 0.6, Neutrophils # (Auto) 6.50, Lymphocytes # (Auto) 3.29, Monocytes # (Auto) 0.81, Eosinophils # (Auto) 0.20, Basophils # (Auto) 0.06 12/07/17 10:45 Test 12/07/17 10:45 White Blood Count 10.90 K/uL (4.8-10.8) Red Blood Count 4.19 M/uL (4.2-5.4) Hemoglobin 13.0 g/dL (12.0-16.0) Hematocrit 38.0 % (37-47) Mean Corpuscular Volume 90.7 fL (80-100) Mean Corpuscular Hemoglobin 31.0 pg (25-34) Mean Corpuscular Hemoglobin Concent 34.2 g/dl (32-36) Platelet Count 254 K/uL (130-400) Mean Platelet Volume 10.0 fL (7.4-10.4) Neutrophils (%) (Auto) 59.6 % Lymphocytes (%) (Auto) 30.2 % Monocytes (%) (Auto) 7.4 % Eosinophils (%) (Auto) 1.8 % Basophils (%) (Auto) 0.6 % Neutrophils # (Auto) 6.50 K/uL (1.4-6.5) Lymphocytes # (Auto) 3.29 K/uL (1.2-3.4) Monocytes # (Auto) 0.81 K/uL (0.11-0.59) Eosinophils # (Auto) 0.20 K/uL (0-0.5) Basophils # (Auto) 0.06 K/uL (0-0.2) RDW Standard Deviation 44.4 fL (36.4-46.3) RDW Coefficient of Variation 13.5 % (11.5-14.5) Immature Granulocyte % (Auto) 0.4 % Immature Granulocyte # (Auto) 0.04 K/uL (0.00-0.02) Urine Color YELLOW Urine Appearance CLEAR (CLEAR) Urine pH 5.0 (4.5-7.5) Urine Specific [place] 1.011 (1.000-1.030) Urine Protein NEG (NEG) Urine Glucose (UA) NEG (NEG) Urine Ketones NEG (NEG) Urine Occult Blood NEG (NEG) Urine Nitrite NEG (NEG) Urine Bilirubin NEG (NEG) Urine Urobilinogen NEG (NEG) Urine Leukocyte Esterase NEG (NEG) Anion Gap 4.0 mmol/L (3-11) Estimated GFR () 71.8 Estimated GFR (Non- 62.0 BUN/Creatinine Ratio 17.1 (10-20) Calcium Level 9.3 mg/dl (8.5-10.1) Total Bilirubin 0.3 mg/dl (0.2-1) Direct Bilirubin < 0.1 mg/dl (0-0.2) Aspartate Amino Transf (AST/SGOT) 17 U/L (15-37) Alanine Aminotransferase (ALT/SGPT) 22 U/L (12-78) Alkaline Phosphatase 103 U/L (45-117) Total Protein 7.7 gm/dl (6.4-8.2) Albumin 3.5 gm/dl (3.4-5.0) Lipase 107 U/L (73-393) Laboratory results as reviewed by me. Medications Administered Medications (Trade) Dose Ordered Sig/Jefferson Route Start Time Stop Time Status Last Admin Dose Admin Morphine Sulfate (MoRPHine SULFATE INJ) 4 mg ONE STAT IV 12/07/17 10:53 12/07/17 10:55 DC 12/07/17 11:35 4 MG Ondansetron HCl (Zofran Inj) 4 mg NOW STAT IV 12/07/17 10:53 12/07/17 10:55 DC 12/07/17 11:35 4 MG Hydromorphone HCl (Dilaudid Inj) 0.5 mg NOW STAT IV 12/07/17 12:29 12/07/17 12:31 DC 12/07/17 12:41 0.5 MG ED Course 1050: The patient was evaluated in room C6. A complete history and physical exam was performed. 1053: Ordered Zofran Inj 4 mg IV, Morphine Sulfate 4 mg IV. 1228: I discussed test results with the patient. She is head still operator throughout her right abdomen. She denies any vaginal discharge or bleeding. She says that she has not been sexually active for 13 years. 1229: Ordered Dilaudid Inj 0.5 mg IV. 1313: Upon reevaluation, the patient appeared to have improvement of her symptoms. She had no abdominal tenderness. I discussed tonbaudiloi's findings with her. She verbalized agreement of the treatment plan. She was discharged home. Medical Decision This is a 67-year-old female presents with right-sided abdominal pain and flank pain. Differential diagnosis includes kidney stone, hydronephrosis, UTI, pyelonephritis, pancreatitis. I did perform a limited focused review of portions of the patient's old chart on the electronic medical record. The patient was admitted in August for chest pain which was thought to be musculoskeletal in nature. I did evaluate the patient as noted above. The patient is presenting with right -sided abdominal pain since this morning. She does have a history of kidney stones and states that the pain feels very similar. IV access was established. The patient stated that she would get a ride home. She was informed that she could not drive after receiving opiates. She was given morphine and Zofran IV. She did have persistent pain and was given Dilaudid 0.5 mg IV. She is on chronic pain medications and likely has a high tolerance to opiates. I did order and personally review the patient's urine analysis as described above. I did order and review the patient's blood work as noted in the electronic medical record. Her white blood cell count is 10.9. LFTs and lipase are unremarkable. I did order a CT of the abdomen and pelvis. I did review the images myself as well as the radiology report as described above. The CAT scan did not show any acute abnormalities. She does have a hepatic cyst which she already knew about. She denies being sexually active for 13 years and had a hysterectomy and so pelvic exam was not performed. I did discuss the test results with the patient. I did explain to her that the cause of her pain is unclear and recommended very close follow-up with her doctor and return for worsening symptoms. She does state that she is feeling much better right now and does not have any tenderness on exam. She was discharged in good condition. Medication Reconcilliation Current Medication List: was personally reviewed by me Blood Pressure Screening Patient's blood pressure: Elevated blood pressure Blood pressure disposition: Elevated BP felt to be situational Impression Primary Impression: Right sided abdominal pain Scribe Attestation The scribe's documentation has been prepared under my direct and personally reviewed by me in its entirety. I confirm that the note above accurately reflects all work, treatment, procedures, and medical decision making performed by me. Departure Information Dispostion Home / Self-Care Referrals Aureliano Hickey PA-C (PCP) Forms Call Back Authorization, HOME CARE DOCUMENTATION FORM, IMPORTANT VISIT INFORMATION Patient Instructions ED Abdominal Pain Unkn Cause, My [facility] Additional Instructions You have been examined and treated today on an emergency basis only. This is not a substitute for, or an effort to provide, complete comprehensive medical care. It is impossible to recognize and treat all injuries or illnesses in a single emergency department visit. It is therefore important that you follow up closely with your physician. Call as soon as possible for an appointment. Return for worsening symptoms or if you develop fever, vomiting, or any other concerning symptoms.
== END 2017-12-07 13:39 | disposition home or self-care (01) ==
LOC: C.EDB 10:31 → C.EDC 13:39
DX: R10.11 Right upper quadrant pain (principal); R10.31 Right lower quadrant pain; K76.89 Other specified diseases of liver; F41.9 Anxiety disorder, unspecified; F32.9 Major depressive disorder, single episode, unspecified; I65.29 Occlusion and stenosis of unspecified carotid artery; M54.9 Dorsalgia, unspecified; J44.9 Chronic obstructive pulmonary disease, unspecified; K21.9 Gastro-esophageal reflux disease without esophagitis; E78.5 Hyperlipidemia, unspecified; F17.200 Nicotine dependence, unspecified, uncomplicated; Z90.710 Acquired absence of both cervix and uterus; Z79.82 Long term (current) use of aspirin; Z88.0 Allergy status to penicillin; Z88.1 Allergy status to other antibiotic agents; Z91.041 Radiographic dye allergy status; Z88.6 Allergy status to analgesic agent

== ENCOUNTER 2017-12-20 14:39 | Emergency (ER) | payer OTHER, MEDICARE ==
[~2017-12-20] VITALS: Ht 149.9 cm; Wt 73.9 kg
[~2017-12-20 14:39] MED LIST changes: -ASCO10003 PO; -ASPI1TAB48 PO; -ATOR-26 PO; -CALC600T PO; -FLUT1INH PO; -FURO20TA PO; +LORA-741 PO; +LPT/40 PO; -OMEP40CA41 PO; -ONDA4TAB65 PO
[2017-12-20] MEDS ORDERED: ONDA4TAB65 PO (14:51)
[2017-12-20 14:52] VITALS: Ht 149.9 cm; Wt 73.9 kg
[2017-12-20] MEDS ORDERED: ASPI1TAB48 PO (15:01)
[2017-12-20] MEDS ORDERED: ASPIRIN 81 MG CHEW PO STA (15:19)
[2017-12-20] MEDS ORDERED: HYDROCODONE/ACETAMIN 5/325MG TAB PO STA (15:19)
--- NOTE | 2017-12-20 15:25 | EMERGENCY ROOM VISIT NOTE ---
History Report prepared by Yoli: Aubrey Mccarthy Under the Supervision of: Dr. Cb Granger M.D. First contact with patient: 15:11 Chief Complaint: CHEST PAIN Stated Complaint: CHEST PAIN History of Present Illness The patient is a 67 year old female who presents to the Emergency Room with complaints of waxing and waning chest pain that began at 0900 this morning, 6 hours and 15 minutes ago. The patient states that she was driving in her car to her client's house this morning when the pain onset. She describes the pain as "sharp" and rates the severity of the pain as an 8/10 at its worst. She also notes that she got sweaty, but did not vomit. The patient took a Hydrocodone which improved her pain. The symptoms resolved, and then returned again as she was driving home from the client's house. The patient has been diagnosed with Angina in the past, and was prescribed nitroglycerin. She did not take any Nitro , because she forgot she had it. She has had a chemically induced stress test in the past, but has never had a cardiac catheterization. She does take Aspirin daily. Source of History: patient Onset: 6 hours and 15 minutes ago Position: chest Quality: sharp Timing: waxes/wanes Modifying Factors (Relieving): other (Hydrocodone) Associated Symptoms: + diaphoresis, No vomiting Review of Systems See HPI for pertinent positives & negatives. A total of 10 systems reviewed and were otherwise negative. Past Medical & Surgical Medical Problems: (1) Anxiety (2) Carotid stenosis (3) Chronic back pain (4) COPD (chronic obstructive pulmonary disease) (5) Depression (6) Gastroesophageal reflux disease (7) Hyperlipidemia (8) Osteoarthritis (9) Osteoporosis Surgical Problems: (1) section (2) H/O dilation and curettage (3) History of hysterectomy (4) Hx of shoulder surgery (5) S/P carpal tunnel release Family History FHx: cancer FHx: diabetes FHx: heart disease FHx: hypertension FHx: seizures Myocardial infarction FATHER, Onset:45 Uncle (50s) Social History Smoking Status: Current Every Day Smoker Alcohol Use: none Drug Use: none Marital Status: Housing Status: lives alone Occupation Status: employed Current/Historical Medications Scheduled Alendronate Sodium (Alendronate Sodium), 70 MG PO WK Amitriptyline Hcl (Elavil), 20 MG PO HS Aspirin (Aspirin Low Dose), 81 MG PO QAM Atorvastatin (Lipitor), 40 MG PO DAILY Gabapentin (Gabapentin), 300 MG PO BID Omeprazole (Prilosec), 40 MG PO DAILY Sertraline HCl (Sertraline HCl), 150 MG PO HS Scheduled PRN Fluticasone Furoate-Vilanterol (Breo Ellipta), 1 PUFF INH DAILY PRN for SOB/ Wheezing Hydrocodone/Acetaminophen 5MG/325MG (Brady 5MG/325MG), 1 TABLET PO QID PRN for Pain Lorazepam (Ativan), 0.5 MG PO Q6H PRN for Anxiety/Agitation Nitroglycerin (Nitrostat), 0.4 MG UT UD PRN for Chest Pain Ondansetron Hcl (Zofran), 8 MG PO Q6H PRN for Nausea Tizanidine Hcl (Zanaflex), 4 MG PO Q8 PRN for Muscle Spasm Allergies Coded Allergies: Iodinated Diagnostic Agents (Verified Allergy, Unknown, ., 12/07/17) Penicillins (Verified Allergy, Unknown, 12/07/17) Varenicline (Verified Adverse Reaction, Severe, NAUSEA, 12/07/17) Benzalkonium Chloride (Verified Adverse Reaction, Intermediate, VERTIGO, ) Ibuprofen (Verified Adverse Reaction, Intermediate, ACID REFLEX, 12/07/17) Ofloxacin (Verified Adverse Reaction, Intermediate, VERTIGO, 12/07/17) Corticosteroids (Verified Adverse Reaction, Unknown, jittery and hyper, ) Uncoded Allergies: DM-APAP-CPM (Allergy, Severe, ANAPHYLAXIS, 09/13/17) Physical Exam Vital Signs Date Time Temp Pulse Resp B/P (MAP) Pulse Ox O2 Delivery O2 Flow Rate FiO2 12/20/17 17:41 71 16 129/61 96 Room Air 12/20/17 16:57 76 14 133/50 95 Room Air 12/20/17 15:34 81 17 141/77 95 Room Air 12/20/17 15:33 77 12/20/17 15:26 93 Room Air 12/20/17 14:52 86 18 173/60 95 Room Air Physical Exam GENERAL: Patient is in no acute distress. HEENT: No acute trauma, normocephalic atraumatic, mucous membranes moist, no nasal congestion, no scleral icterus. NECK: No stridor, no adenopathy, no meningismus, trachea is midline. LUNGS: Clear to auscultation bilaterally, no wheeze, no rhonchi, breath sounds equal. HEART: Without murmurs gallops or rubs, regular rate and rhythm. CHEST: Tenderness to the left anterior chest wall. Pain worsens with movement of the left shoulder. Especially with stretching the left arm posteriorly. ABDOMEN: Soft, nontender, bowel sounds positive, no hernias, no peritonitis. EXTREMITIES: No cyanosis or edema, full range of motion of all the joints without pain or difficulty, no signs for acute trauma. NEUROLOGIC: Oriented x 3, no acute motor or sensory deficits, no focal weakness. SKIN: No rash, no jaundice, no diaphoresis. Medical Decision & Procedures ER Provider Diagnostic Interpretation: Radiology results as stated below per my review and radiologist interpretation: CHEST ONE VIEW PORTABLE HISTORY: 67 years-old Female CHEST PAIN acute atypical chest pain COMPARISON: Chest radiograph 09/13/2017 TECHNIQUE: Portable AP view of the chest FINDINGS: Cardiomediastinal and hilar silhouettes are within normal limits. Linear subsegmental bibasilar opacities suggest atelectasis or scarring. No pneumothorax, pleural effusion, focal airspace consolidation or overt pulmonary edema. Bones of the chest appear grossly intact. Postsurgical or chronic post matter changes of the distal right clavicle. Degenerative changes of the shoulders and spine. IMPRESSION: No acute process. The above report was generated using voice recognition software. It may contain grammatical, syntax or spelling errors. Electronically signed by: Miles Pascual M.D. 12/20/2017 3:35 PM Dictated Date/Time: 12/20/2017 3:33 PM Laboratory Results 12/20/17 15:10 12/20/17 15:10 Test 12/20/17 15:10 12/20/17 17:03 Red Blood Count 4.12 M/uL (4.2-5.4) Mean Corpuscular Volume 91.0 fL (80-100) Mean Corpuscular Hemoglobin 30.6 pg (25-34) Mean Corpuscular Hemoglobin Concent 33.6 g/dl (32-36) RDW Standard Deviation 45.5 fL (36.4-46.3) RDW Coefficient of Variation 13.8 % (11.5-14.5) Mean Platelet Volume 10.0 fL (7.4-10.4) Anion Gap 6.0 mmol/L (3-11) Est Creatinine Clear Calc Drug Dose 48.3 ml/min Estimated GFR () 68.3 Estimated GFR (Non- 59.0 BUN/Creatinine Ratio 14.0 (10-20) Calcium Level 9.0 mg/dl (8.5-10.1) Total Bilirubin 0.2 mg/dl (0.2-1) Aspartate Amino Transf (AST/SGOT) 21 U/L (15-37) Alanine Aminotransferase (ALT/SGPT) 23 U/L (12-78) Alkaline Phosphatase 106 U/L (45-117) Total Protein 7.9 gm/dl (6.4-8.2) Albumin 3.7 gm/dl (3.4-5.0) Globulin 4.1 gm/dl (2.5-4.0) Albumin/Globulin Ratio 0.9 (0.9-2) Chemistry Specimen Hemolysis Bedside Troponin I < 0.030 ng/ml (0-0.045) Laboratory results reviewed by me. Medications Administered Medications (Trade) Dose Ordered Sig/Jefferson Route Start Time Stop Time Status Last Admin Dose Admin Acetaminophen/ Hydrocodone Bitart (Brady 5/325 Tab) 1 tab NOW STAT PO 12/20/17 15:19 12/20/17 15:23 DC 12/20/17 15:32 1 TAB Aspirin (Aspirin Chew) 324 mg NOW STAT PO 12/20/17 15:19 12/20/17 15:23 DC 12/20/17 15:32 324 MG ECG Per My Interpretation Indication: chest pain Rate (beats per minute): 86 Rhythm: normal sinus Findings: other (No ELIF, No PVCs) ED Course 1513: The patient was evaluated in room C7. A complete history and physical exam was performed. 1519: Ordered Aspirin 324 mg PO, Hydrocodone 1 tablet PO. 1721: I reevaluated the patient. She is feeling well. Her second troponin resulted normal. I discussed results and discharge instructions: She verbalized understanding and agreement. The patient is ready for discharge. Medical Decision Differential Diagnosis includes; Musculoskeletal chest pain, pneumonia, pneumothorax, myocardial infarction, aortic dissection, pulmonary emboli, nerve impingement, and heart failure. There is a mild leukocytosis, this could be consistent with infection or the stress of her current situation. No worrisome anemia. No significant electrolyte abnormality, kidney failure or hepatitis. EKG with pain shows a normal sinus rhythm, no acute ischemia. Cardiac enzyme testing 2 is not consistent with acute cardiac injury. Chest x-ray does not show mediastinal widening, pneumonia or pneumothorax. On exam, I could reproduce the patient's pain along the left chest wall, particularly, with movement of her left arm and shoulder. The patient was given oral hydrocodone, she takes this for pain as an outpatient. She was given oral aspirin. She is improved. The patient's pain is very likely musculoskeletal. She was reassured. She is being discharged home and will follow with cardiology as already scheduled. She can return for any worsening or any exertional symptoms. Medication Reconcilliation Current Medication List: was personally reviewed by me Blood Pressure Screening Patient's blood pressure: Elevated blood pressure Blood pressure disposition: Referred to PCP Impression Primary Impression: Left sided chest pain Scribe Attestation The scribe's documentation has been prepared under my direction and personally reviewed by me in its entirety. I confirm that the note above accurately reflects all work, treatment, procedures, and medical decision making performed by me. Departure Information Dispostion Home / Self-Care Referrals Aureliano Hickey PA-C (PCP) Forms Call Back Authorization, HOME CARE DOCUMENTATION FORM, IMPORTANT VISIT INFORMATION Patient Instructions My [facility] [place] Additional Instructions pain meds as needed heat to the sore area will help rest follow with the robin md for a recheck return if worsening as we discussed heart testing today was all ok
--- NOTE | 2017-12-20 15:36 | DIAGNOSTIC IMAGING REPORT ---
CHEST ONE VIEW PORTABLE HISTORY: 67 years-old Female CHEST PAIN acute atypical chest pain COMPARISON: Chest radiograph 09/13/2017 TECHNIQUE: Portable AP view of the chest FINDINGS: Cardiomediastinal and hilar silhouettes are within normal limits. Linear subsegmental bibasilar opacities suggest atelectasis or scarring. No pneumothorax, pleural effusion, focal airspace consolidation or overt pulmonary edema. Bones of the chest appear grossly intact. Postsurgical or chronic post matter changes of the distal right clavicle. Degenerative changes of the shoulders and spine. IMPRESSION: No acute process. The above report was generated using voice recognition software. It may contain grammatical, syntax or spelling errors. Electronically signed by: Miles Pascual M.D. 12/20/2017 3:35 PM Dictated Date/Time: 12/20/2017 3:33 PM
[2017-12-20 15:37] LABS: HEMATOCRIT 37.5 % (37-47); HEMOGLOBIN 12.6 g/dL (12.0-16.0); MEAN CORPUSCULAR HEMOGLOBIN 30.6 pg (25-34); MEAN CORPUSCULAR HGB CONC 33.6 g/dl (32-36); PLATELET COUNT 254 K/uL (130-400); RED CELL DISTRIBUTION WIDTH CV 13.8 % (11.5-14.5); RED CELL DISTRIBUTION WIDTH SD 45.5 fL (36.4-46.3); WHITE BLOOD COUNT 11.37 K/uL (4.8-10.8)
[2017-12-20] MEDS ORDERED: AMIT10TA6 PO (15:37)
[2017-12-20] MEDS ORDERED: ZLF/100 PO (15:37)
[2017-12-20] MEDS ORDERED: FLUT1INH INH (15:42)
[2017-12-20 15:45] LABS: ALBUMIN 3.7 gm/dl (3.4-5.0); CREATININE 0.99 mg/dl (0.60-1.20)
[2017-12-20 15:47] LABS: TOTAL PROTEIN 7.9 gm/dl (6.4-8.2)
[2017-12-20] MEDS ORDERED: OMEP40CA41 PO (15:59)
[2017-12-20 17:41] VITALS: BP 129/61; PULSE 71; O2SAT 96
== END 2017-12-20 17:42 | disposition home or self-care (01) ==
LOC: C.EDB 14:41 → C.EDC 17:42
DX: R07.9 Chest pain, unspecified (principal); Z79.82 Long term (current) use of aspirin; F41.9 Anxiety disorder, unspecified; M54.9 Dorsalgia, unspecified; G89.29 Other chronic pain; F32.9 Major depressive disorder, single episode, unspecified; K21.9 Gastro-esophageal reflux disease without esophagitis; E78.5 Hyperlipidemia, unspecified; M19.90 Unspecified osteoarthritis, unspecified site; F17.210 Nicotine dependence, cigarettes, uncomplicated; M81.0 Age-related osteoporosis without current pathological fracture; Z90.710 Acquired absence of both cervix and uterus; Z80.9 Family history of malignant neoplasm, unspecified; Z83.3 Family history of diabetes mellitus; Z82.49 Family history of ischemic heart disease and other diseases of the circulatory system; Z82.0 Family history of epilepsy and other diseases of the nervous system; Z79.899 Other long term (current) drug therapy; Z91.041 Radiographic dye allergy status; Z88.0 Allergy status to penicillin; Z88.8 Allergy status to other drugs, medicaments and biological substances; Z88.6 Allergy status to analgesic agent

== ENCOUNTER 2019-01-02 13:18 | Observation (INO) ==
--- OUTSIDE RECORDS SUMMARY | 2019-01-02 13:21 | External Medical Summary | Continuity of Care Document ---
:1950 Author Name Dara Caldwell, Provider Address Unavailable Unavailable , Care Team Providers Name Role Phone Jae CALDERON, [email or web address] PCP, UNKNOWN Unavailable Unavailable Unavailable Unavailable Unavailable Problems Sialoadenitis (527.2) (K11.20) Hearing loss (389.9) (H91.90) Smokes less than 1 pack of cigarettes per day (305.1) (F17.2 10) Current every day smoker (305.1) (F17.200) Current tobacco use (305.1) (Z72.0) Hypercholesterolemia (272.0) (E78.00) Chest pain (786.50) (R07.9) Sensorineural hearing loss (SNHL) of both ears (389.18) (H90 .3) Carotid artery stenosis (433.10) (I65.29) Eustachian tube dysfunction (381.81) (H69.80) Impacted cerumen of both ears (380.4) (H61.23) Acute serous otitis media of left ear (381.01) (H65.02) Acute otitis media (382.9) (H66.90) Chronic obstructive pulmonary disease (496) (J44.9) Abdominal pain, RUQ (right upper quadrant) (789.01) (R10.11) Chronic cholecystitis (575.11) (K81.1) Arthritis (716.90) (M19.90) Asthma (493.90) (J45.909) Biliary dyskinesia (575.8) (K82.8) Gastric ulcer (531.90) (K25.9) Functional Status Hearing loss Allergies and Adverse Reactions Iodine SOLN (Allergy) Penicillins (Allergy) Medications Pantoprazole Sodium 40 MG Oral Tablet De layed Release; TAKE 1 TABLET TWICE DAILY 30 MINUTES BEFORE BREAKFAST AND DINNER. Start: 2013 Refills: 0 Sertraline HCl - 100 MG Oral Tablet; TAKE 1 1/2 TABLET DAILY DIRECTED. Start: 11-Nov-2013 Refills: 0 Ondansetron HCl - 24 MG Oral Tablet; TAKE 1 TABLET Every 4 h ours PRN Start: 11-Nov-2013 Refills: 0 Aspirin 81 MG TABS; TAKE 1 TABLET DAILY. Start: 11-Nov-2013 Refills: 0 tiZANidine HCl - 4 MG Oral Capsule Start : 11-Nov-2013 Refills: 0 HYDROcodone-Acetaminophen 5-325 MG Oral Tablet; TAKE 1 TABLET EVERY 4 TO 6 HOURS NEEDED FOR PAIN. Start: 11-Nov-2013 Refills: 0 Nitrostat 0.4 MG Sublingual Tablet Sublingual; TAKE DIREC MADELINE. Start: 11-Nov-2013 Refills: 0 Atorvastatin Calcium 40 MG Oral Tablet; TAKE 1 TABLET DAILY. Start: 16-Jan-2014 Refills: 0 LORazepam 0.5 MG Oral Tablet; TAKE 1 TABLET EVERY 12 HOURS A S NEEDED. Start: 16-Jan-2014 Refills: 0 Omeprazole 40 MG Oral Capsule Delayed Release; TAKE 1 CAPSUL E DAILY. Start: 25-Sep-2014 Refills: 0 Calcium 600+D 600-200 MG-UNIT Oral Tablet; TAKE DIRECTED. Start: 25-Sep-2014 Refills: 0 Vitamin C 1000 MG Oral Tablet; TAKE 1 TABLET DAILY. Start: 25-Sep-2014 Refills: 0 Procedures History of Shoulder Surgery Status: Comp leted History of Cholecystectomy Laparoscopic Status: Completed History of Ear Pressure Equalization Tube, Insertion, Bilate rally Status: Completed Immunizations Immunizations not documented Family History Unknown Family Member Family history of Heart Disease (V17.49) Status: Active Comments: Family History Family history of Hypertension (V17.49) Status: Active Comments: Family History Social History - Smoking Status Current every day smoker Plan of Treatment Planned Observations Planned Goals not documented Results No Known Results Results not documented Encounters Appointment; Enoch Ramos Au.D.|[facility] 03-Aug-2018 13:20 Encounter Diagnosis: Problem not documented Appointment; Juana Rowe PA-C 09-Jul-2018 11:20 Encounter Diagnosis: Problem not documented Appointment; Enoch Ramos Au.D.|[facility] 09-Jul-2018 10:40 Encounter Diagnosis: Problem not documented Appointment; Juana Rowe PA-C 22-Jun-2018 9:40 Encounter Diagnosis: Problem not documented Appointment; Enoch Ramos Au.D.|[facility] 22-Jun-2018 9:20 Encounter Diagnosis: Problem not documented Appointment; Cas Isabel M.D. 09-Mar-2018 8:00 Encounter Diagnosis: Problem not documented Appointment; Leila Luis PA-C 20-Feb-2018 12:00 Encounter Diagnosis: Problem not documented Appointment; Leila Luis PA-C 25-Jan-2018 16:00 Encounter Diagnosis: Problem not documented Appointment; Leila Luis PA-C 01-Jan-2018 8:30 Encounter Diagnosis: Problem not documented Appointment; Juana Rowe PA-C 29-Nov-2017 15:20 Encounter Diagnosis: Problem not documented Appointment; Enoch Ramos Au.D.|[facility] 29-Nov-2017 15:00 Encounter Diagnosis: Problem not documented Appointment; Juana Rowe PA-C 03-Aug-2018 13:40 Encounter Diagnosis: Problem not documented"
[2019-01-02 14:04] LABS: Basophils # (auto) 0.09 K/uL (0-0.2); Eosinophils % (auto) 2.3 %; Hematocrit (blood only) 34.3 % (37-47); Immature Granulocytes # (auto) 0.04 K/uL (0.00-0.02); Immature Granulocytes % (auto) 0.5 %; Lymphocytes # (auto) 2.75 K/uL (1.2-3.4); Lymphocytes % (auto) 31.6 %; Mean Corpuscular Volume 89.1 fL (80-100); Mean Platelet Volume 9.9 fL (7.4-10.4); Monocytes # (auto) 0.81 K/uL (0.11-0.59); Monocytes % (auto) 9.3 %; Neutrophils % (auto) 55.3 %; Platelet Count 268 K/uL (130-400); RDW Coefficient of Variation 13.8 % (11.5-14.5); RDW Standard Deviation 44.9 fL (36.4-46.3); Red Blood Count 3.85 M/uL (4.2-5.4); White Blood Count 8.69 K/uL (4.8-10.8)
[2019-01-02 14:15] LABS: Partial Thromboplastin Time 27.9 Seconds (21.0-31.0); Prothrombin Time 9.9 Seconds (9.0-12.0)
[2019-01-02 14:16] LABS: Alanine Aminotransferase 24 U/L (12-78); Albumin Level 3.4 gm/dl (3.4-5.0); Aspartate Aminotransferase 21 U/L (15-37); BUN Creatinine Ratio 14.1 (10-20); Blood Urea Nitrogen 14 mg/dl (7-18); Carbon Dioxide 24 mmol/L (21-32); Chloride 109 mmol/L (98-107); Est GFR (African American) 68.7; Est GFR (Non-African American) 59.3; Glucose 96 mg/dl (70-99); Potassium 4.2 mmol/L (3.5-5.1); Sodium 139 mmol/L (136-145)
[2019-01-02 14:17] LABS: Albumin Globulin Ratio 0.9 (0.9-2); Alkaline Phosphatase 110 U/L (45-117); Bilirubin,Total 0.2 mg/dl (0.2-1); Total Protein 7.4 gm/dl (6.4-8.2); Troponin I < 0.015 ng/ml (0-0.045)
--- NOTE | 2019-01-02 14:24 | XRay Report ---
XR chest 1V portable HISTORY: Atypical chest pain COMPARISON: Chest 01/26/2018. FINDINGS: A few bibasilar linear densities suggesting scarring or subsegmental atelectasis. This denis ins unchanged. The cardiac silhouette remains mildly enlarged. No pleural effusions. No pneumothorax. No new focal lung consolidations to suggest pneumonia. No evidence for pulmonary edema. IMPRESSION: No significant change compared to the prior study. No acute process. Electronically signed by: Bello Vivas M.D. 01/02/2019 2:23 PM
[2019-01-02] MEDS: NITROGLYCERIN SL 0.4 MG/TAB TAB SL PRN ×2 (14:30→14:40)
[2019-01-02] MEDS ORDERED: MoRPHine SULFATE 4 MG/ML 1 ML CARP\\VIAL IV STA (15:02)
[2019-01-02] MEDS ORDERED: MoRPHine SULFATE 2 MG/ML CARP IV STA (16:42)
--- NOTE | 2019-01-02 16:45 | History & Physical Report ---
Date of Service January 02, 2019 Assessment & Plan (1) Chest pain: Pt presented to ER with c/o left anterior CP with radiation to left arm today while grocery shopping. Associated diaphoresis and SOB. Was given nitro with some relief of CP and reported relief with morphine. No further SOB. In ER pt afebrile, P: 86, R: 24-18, BP: 148/95, 126/55, 95% on RA. Initial troponin negative. No significant EKG changes from prior in 01/2018. Hx cardiac cath 02/[address] Isabel: Nonobstructive coronary disease. There was a 40-50% stenosis in the mid right coronary artery. There is also approximately 40% stenosis at the takeoff of the PDA. CHEST PAIN R/O ACS. Risk factors: hyperlipidemia, obesity, tobacco use. DDX: anxiety, musculoskeletal -Monitor Vitals -Repeat EKG in am -Will trend troponin -echo -lipid panel in am, continue statin -ASA -Nitro prn CP and repeat EKG for CP -Cardiology consult (2) Anxiety: -Continue sertraline, bupropion (3) COPD (chronic obstructive pulmonary disease): Pt denies any current inhaler use -albuterol prn (4) Diastolic dysfunction: 08/2017 echo: EF: 60-65%, grade II diastolic dysfunction (5) Nocturnal hypoxia: Reported nocturnal hypoxia secondary to COPD. Home oxygen at 1L HS was recommended however pt not on secondary to reported insurance issues -supplemental oxygen prn (6) GERD (gastroesophageal reflux disease): -Continue PPI (7) Tobacco use: -Tobacco cessation encouraged -Nicotine patch DVT Prophylaxis -Lovenox SQ Full Code as per discussion with pt Follows with Dr Arredondo for routine care Pt was seen with Dr Delgadillo. See addendum History of Present Illness Chief Complaint: CP Primary Care Provider: Richar Arredondo MD Pt is 68 y/o F with PMH GERD, anxiety, COPD, HLD, nocturnal hypoxia (not on oxygen as wasn't covered by insurance) presented to ER with c/o CP. Pt reports was grocery shopping today when developed left anterior CP with radiation to L arm with some diaphoresis reported. Pt states felt a little SOB when had symptoms. Symptoms continued and pt states took 4 baby aspirin and CP improved after approx 10 minutes. She denies any associated nausea, vomiting or dizziness. States when arrived to ER felt a little dizzy with transition from stretcher to ER bed, but that has since resolved. Was given nitro en route with some improvement of CP. Denies any further SOB. Pt reports hx CP in past and states this feels similar as her previous CP. Pt states she thinks previous CP was related to anxiety. She reports she is under a lot of stress with family conflict. Denies fever/chills, N/V/D/C, MEADOWS, syncope, vision changes, orthopnea, palpitations, cough, sore throat, choking, otalgia, rhinorrhea, abdominal pain, paresthesias, weakness, extremity edema, rashes, urinary symptoms. In ER pt was given additional nitro and then morphine with improvement of CP. Hx cardiac cath 02/[address] Isabel: Nonobstructive coronary disease. There was a 40-50% stenosis in the mid right coronary artery. There is also approximately 40% stenosis at the takeoff of the PDA. Allergies Allergy/AdvReac Type Severity Reaction Status Date / Time latex Allergy Mild RASH Verified 01/02/19 14:47 Iodinated Contrast- Oral and Allergy Unknown . Verified 01/02/19 14:47 IV Dye Penicillins Allergy Unknown Verified 01/02/19 14:47 varenicline AdvReac Severe NAUSEA Verified 01/02/19 14:47 benzalkonium chloride AdvReac Intermediate VERTIGO Verified 01/02/19 14:47 ibuprofen AdvReac Intermediate ACID REFLEX Verified 01/02/19 14:47 ofloxacin AdvReac Intermediate VERTIGO Verified 01/02/19 14:47 Corticosteroids AdvReac Unknown jittery Verified 01/02/19 14:47 (Glucocorticoids) and hyper DM-APAP-CPM Allergy Severe ANAPHYLAXIS Uncoded 01/02/19 14:47 Home Medications Home Medications Medication Instructions Recorded Confirmed Type amitriptyline 20 mg PO PM 09/20/18 01/02/19 History aspirin 81 mg PO QAM 09/20/18 01/02/19 History atorvastatin 20 mg PO QAM 09/20/18 01/02/19 History bupropion HCl 100 mg PO QAM 09/20/18 01/02/19 History hydrocodone-acetaminophen 1 tab PO QID PRN 09/20/18 01/02/19 History omeprazole 40 mg PO QAM 09/20/18 01/02/19 History sertraline 150 mg PO HS 09/20/18 01/02/19 History alendronate 70 mg PO WK 01/02/19 01/02/19 History calcium carbonate [Calcium 600] 600 mg PO DAILY 01/02/19 01/02/19 History cyclobenzaprine 5 mg PO TID PRN 01/02/19 01/02/19 History gabapentin 300 mg PO TID 01/02/19 01/02/19 History nitroglycerin 0.4 mg SUBLINGUAL UD 01/02/19 01/02/19 History Past Med/Surg History Medical History Tobacco use (Chronic) GERD (gastroesophageal reflux disease) (Chronic) Diastolic dysfunction (Chronic) History of hysterectomy (Chronic) Nocturnal hypoxia (Chronic) reported secondary to COPD. Pt not on home oxygen HS secondary to reported insurance issues COPD (chronic obstructive pulmonary disease) (Chronic) Anxiety (Chronic) Osteoarthritis (Chronic) Carotid stenosis (Chronic) Osteoporosis (Chronic) Depression (Chronic) Palpitation (Resolved) Surgical History History of cholecystectomy (Chronic) Social History Preferred Language: [place] Communication Ability: Effective Director [employer] Required: No Beliefs That Will Affect Care: None Current Living Situation: Alone Other Information That Helps Us Care for You: No Feels Safe at Home: Yes Safety Concerns: Feels Safe At This Time Smoking Status: Current every day smoker Tobacco Type: cigarettes Cigarettes Per Day: 1/3 ppd Do You Dip or Chew Tobacco: No Tobacco Cessation Education Requested by Patient: Yes Hx Alcohol Use: No Hx Substance Use: Yes substance use type: prescription drug Substance Use Type Other:: takes prescribed hydrocodone Review of Systems Review of Systems: All systems reviewed & are unremarkable except as noted in HPI & below Physical Exam Physical Exam: General: no acute distress, WDWN Head: normocephalic, atraumatic Eyes: PERRL, EOM's intact, conjunctiva non-injected, anicteric ENT: normal inspection external ears, nose, mucous membranes mildly dry Neck: supple, trachea midline, non-tender Lungs: clear, no respiratory distress, no wheezing/rhonchi/rales CV: RRR, no murmur,Chest wall with mild tenderness to palpation left lower sternal region, no skin rashes noted, no pretibial edema Abd: normal BS, soft, non-tender Ext: no cyanosis, no calf tenderness Neuro: A&O x 3, no focal deficits noted, normal affect Skin: warm, dry Results & Data Vital Signs (Past 12 Hours) Vital Signs Temp Pulse Resp BP Pulse Ox 01/02/19 15:01 80 25 H 126/55 L 94 01/02/19 15:00 81 18 93 01/02/19 14:32 72 18 94 01/02/19 14:31 76 18 130/55 L 94 01/02/19 14:30 75 19 94 01/02/19 14:02 79 26 H 92 01/02/19 14:01 81 23 135/55 L 93 01/02/19 14:00 78 22 91 01/02/19 13:52 96 01/02/19 13:31 85 16 158/82 H 96 01/02/19 13:30 85 18 96 01/02/19 13:28 36.7 C 86 26 H 148/95 H 93 01/02/19 13:23 90 17 148/95 H 93 Laboratory Results Short CBC 01/02/19 Range/Units 13:24 WBC 8.69 (4.8-10.8) K/uL Hgb 12.0 (12.0-16.0) g/dL Hct 34.3 L (37-47) % Plt Count 268 (130-400) K/uL BMP 01/02/19 01/02/19 13:24 16:27 Sodium 139 140 Potassium 4.2 4.0 Chloride 109 H 109 H Carbon Dioxide 24 24 BUN 14 14 Creatinine 0.98 0.89 Glucose 96 93 Calcium 9.0 9.1 Cardiac Enzymes 01/02/19 Range/Units 13:24 Troponin I < 0.015 (0-0.045) ng/ml Liver Function 01/02/19 01/02/19 Range/Units 13:24 16:27 Total Bilirubin 0.2 0.2 (0.2-1) mg/dl AST 21 18 (15-37) U/L ALT 24 22 (12-78) U/L Alkaline Phosphatase 110 95 (45-117) U/L Albumin 3.4 3.4 (3.4-5.0) gm/dl Diagnostic Findings CXR: IMPRESSION: No significant change compared to the prior study. No acute process. ECG Rate (beats per minute): 86 Rhythm: normal sinus Change: no significant change (01/2018) Supervising Physician Co-Signing Physician Notes Patient is a 68-year-old female with history of anxiety, depression, COPD, ongoing tobacco use and other problems presents with history of sudden onset of chest pain today. She describes the chest pain to be sharp, radiates to left arm, associated with diaphoresis, nausea, slightly improved with aspirin use. She states having similar chest pain in the past on multiple occasions. She reports currently being under a lot of stress due to family issues. Please review HPI for complete details of presentation. Show any signs of acute ischemia. Chest x-ray showed no acute process. Initial troponin negative. On exam patient is moderately built and nourished, no apparent distress, normocephalic atraumatic, lungs are clear to auscultation, chest pain reproducible on palpation substernally, S1-S2, no murmur, abdomen soft nontender, neurologically no focal deficits, no pedal edema. Patient is admitted under observation status for evaluation of Atypical chest pain. Chest pain is likely related to anxiety. Will rule out ACS. Advised to quit smoking. Will start on aspirin. Will check resting echo, lipid panel, repeat EKG in the morning and trend cardiac enzymes. Nitroglycerin as needed. [facility] consulted for input. I personally reviewed the record. Patient is interviewed and examined at bedside. Patient's care is coordinated with Vanessa Brewer PA-C. Please refer to the documentation above for details of patient's presentation and for discussion of other issues.
[2019-01-02 17:07] LABS: Prothrombin Time 10.1 Seconds (9.0-12.0)
[2019-01-02 17:11] LABS: Albumin Level 3.4 gm/dl (3.4-5.0); BUN Creatinine Ratio 15.4 (10-20); Calcium 9.1 mg/dl (8.5-10.1); Creatinine Clr Calc Pharmacy 57.2 ml/min; Est GFR (African American) 77.2; Est GFR (Non-African American) 66.6
[2019-01-02 17:14] LABS: Albumin Globulin Ratio 0.9 (0.9-2); Bilirubin,Total 0.2 mg/dl (0.2-1); Globulin 3.6 gm/dl (2.5-4.0)
[2019-01-02] MEDS ORDERED: ALBUTEROL 0.083% NEBU SOLN 3 ML VIAL NEB PRN (17:46)
[2019-01-02] MEDS ORDERED: NITROGLYCERIN SL 0.4 MG/TAB TAB SL PRN (17:46)
[2019-01-02] MEDS ORDERED: ACETAMINOPHEN 325 MG TAB PO PRN (17:46)
[2019-01-02] MEDS ORDERED: HYDROCODONE/ACETAMOPHEN 5/325MG TAB PO PRN (17:46)
[2019-01-02] MEDS: NICOTINE 14 MG/24 HR PATCH TD SCH (18:25)
--- NOTE | 2019-01-02 19:10 | Emergency Department Note ---
Entered by Opal Restrepo acting as a scribe for Brad Comer MD History of Present Illness General Chief complaint: Chest Pain Time Seen by Provider: 01/02/19 14:03 Source: patient History of Present Illness Onset (ago): hour(s) 3 Location: chest Pain Consistency: + intermittent Maximum Pain Intensity: 8 Quality: + sharp Relieved By: + other (temporarily by nitrogylcerin) Associated symptoms: + diaphoresis and + other (leg swelling); no cough, no fever/chills and no nausea/vomiting The patient is a 68 white F w/ PMHx of COPD, carotid stenosis, osteoporosis, depression, anxiety, and palpitations who presents to the ED w/ CC of intermittent chest pain beginning 3 hours ago. She states that she was at the grocery store when her symptoms started. She notes that her chest pain starts in the middle of her chest and radiates to her left shoulder. She describes her pain as sharp. She states that she was given nitroglycerin and aspirin in the ambulance which relieved some of her pain. She notes that she is currently experiencing diaphoresis and leg swelling. She denies experiencing a cough, fever, chills, nausea, and vomiting. She states that she has a family history of heart disease. She adds that her father at the age of 45 from a heart attack. She denies a history of blood clots, recent travel, or recent surgery. Home Medications Home Medications Medication Instructions Recorded Confirmed Type amitriptyline 20 mg PO PM 09/20/18 01/02/19 History aspirin 81 mg PO QAM 09/20/18 01/02/19 History atorvastatin 20 mg PO QAM 09/20/18 01/02/19 History bupropion HCl 100 mg PO QAM 09/20/18 01/02/19 History hydrocodone-acetaminophen 1 tab PO QID PRN 09/20/18 01/02/19 History omeprazole 40 mg PO QAM 09/20/18 01/02/19 History sertraline 150 mg PO HS 09/20/18 01/02/19 History alendronate 70 mg PO WK 01/02/19 01/02/19 History calcium carbonate [Calcium 600] 600 mg PO DAILY 01/02/19 01/02/19 History cyclobenzaprine 5 mg PO TID PRN 01/02/19 01/02/19 History gabapentin 300 mg PO TID 01/02/19 01/02/19 History nitroglycerin 0.4 mg SUBLINGUAL UD 01/02/19 01/02/19 History Allergies Allergy/AdvReac Type Severity Reaction Status Date / Time latex Allergy Mild RASH Verified 01/02/19 14:47 Iodinated Contrast- Oral and Allergy Unknown . Verified 01/02/19 14:47 IV Dye Penicillins Allergy Unknown Verified 01/02/19 14:47 varenicline AdvReac Severe NAUSEA Verified 01/02/19 14:47 benzalkonium chloride AdvReac Intermediate VERTIGO Verified 01/02/19 14:47 ibuprofen AdvReac Intermediate ACID REFLEX Verified 01/02/19 14:47 ofloxacin AdvReac Intermediate VERTIGO Verified 01/02/19 14:47 Corticosteroids AdvReac Unknown jittery Verified 01/02/19 14:47 (Glucocorticoids) and hyper DM-APAP-CPM Allergy Severe ANAPHYLAXIS Uncoded 01/02/19 14:47 Past Med/Surg History Medical History Tobacco use (Chronic) GERD (gastroesophageal reflux disease) (Chronic) Diastolic dysfunction (Chronic) History of hysterectomy (Chronic) Nocturnal hypoxia (Chronic) reported secondary to COPD. 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 and A total of 10 systems reviewed and were otherwise negative Physical Exam Vital Signs Vital Signs - 24 hr 01/02/19 13:23 01/02/19 13:28 01/02/19 13:30 Temperature 36.7 C Temperature Source Oral Sepsis Recent Fever Within 48 Hours No Sepsis New/Unexplained Change in Mental Status No Sepsis Action Taken by Nursing No Action Required Pulse Rate 90 86 85 Pulse Rate from SpO2 Sensor 91 H 87 86 Pulse Rhythm Regular Pulse Strength Normal Respiratory Rate 17 26 H 18 Respiratory Effort / Characteristics Non-Labored Spontaneous Respiratory Depth Normal Respiratory Pattern Regular Blood Pressure 148/95 H 148/95 H Blood Pressure Mean 112 112 Blood Pressure Position Lying Pulse Oximetry 93 93 96 Oxygen Delivery Method Room Air Room Air Room Air 01/02/19 13:31 01/02/19 13:52 01/02/19 14:00 Temperature Temperature Source Sepsis Recent Fever Within 48 Hours Sepsis New/Unexplained Change in Mental Status Sepsis Action Taken by Nursing Pulse Rate 85 78 Pulse Rate from SpO2 Sensor 85 79 Pulse Rhythm Pulse Strength Respiratory Rate 16 22 Respiratory Effort / Characteristics Respiratory Depth Respiratory Pattern Blood Pressure 158/82 H Blood Pressure Mean 107 Blood Pressure Position Pulse Oximetry 96 96 91 Oxygen Delivery Method Room Air Room Air Room Air 01/02/19 14:01 01/02/19 14:02 01/02/19 14:30 Temperature Temperature Source Sepsis Recent Fever Within 48 Hours Sepsis New/Unexplained Change in Mental Status Sepsis Action Taken by Nursing Pulse Rate 81 79 75 Pulse Rate from SpO2 Sensor 81 79 76 Pulse Rhythm Pulse Strength Respiratory Rate 23 26 H 19 Respiratory Effort / Characteristics Respiratory Depth Respiratory Pattern Blood Pressure 135/55 L Blood Pressure Mean 81 Blood Pressure Position Pulse Oximetry 93 92 94 Oxygen Delivery Method Room Air Room Air Room Air 01/02/19 14:31 01/02/19 14:32 01/02/19 15:00 Temperature Temperature Source Sepsis Recent Fever Within 48 Hours Sepsis New/Unexplained Change in Mental Status Sepsis Action Taken by Nursing Pulse Rate 76 72 81 Pulse Rate from SpO2 Sensor 76 72 81 Pulse Rhythm Pulse Strength Respiratory Rate 18 18 18 Respiratory Effort / Characteristics Respiratory Depth Respiratory Pattern Blood Pressure 130/55 L Blood Pressure Mean 80 Blood Pressure Position Pulse Oximetry 94 94 93 Oxygen Delivery Method Room Air Room Air Room Air 01/02/19 15:01 Temperature Temperature Source Sepsis Recent Fever Within 48 Hours Sepsis New/Unexplained Change in Mental Status Sepsis Action Taken by Nursing Pulse Rate 80 Pulse Rate from SpO2 Sensor 80 Pulse Rhythm Pulse Strength Respiratory Rate 25 H Respiratory Effort / Characteristics Respiratory Depth Respiratory Pattern Blood Pressure 126/55 L Blood Pressure Mean 78 Blood Pressure Position Pulse Oximetry 94 Oxygen Delivery Method Room Air GENERAL: Well appearing, well nourished, NAD, non-toxic. EYE EXAM: Normal conjunctiva. PERRL, no anisocoria and EOM's grossly intact w/o pain. OROPHARYNX: Moist mucus membranes. Grossly normal dentition. NECK: Supple, no nuchal rigidity, no adenopathy, non-tender. no signs of meningismus. LUNGS: Mild crackles at bilateral bases. Normal chest wall mechanics. HEART: NSR, no MRG. ABDOMEN: Abdomen soft, non-tender, normo-active bowel sounds, no masses, no rebound or guarding. BACK: No CVA TTP. SKIN: No rashes and no bruising. UPPER EXTREMITIES: Upper extremities are grossly normal. LOWER EXTREMITIES: No pitting edema. No calf pain. Negative Lexi's sign. NEURO EXAM: A&O x3, cranial nerves II-XII grossly intact, normal speech, moves all 4 extremities on command w/o issue. Course 1420: The patient was evaluated in room B7. A complete history and physical exam was performed. 1504: I re-checked the patient. She states that her chest pain did not get better after her administration of nitroglycerin. 1554: I reviewed the patient's case with Dr. Vanessa Brewer PA-C. She will evaluate the patient for further management. Consultations Consultation #1: I reviewed the patient's case with HENRIK Yao. She will evaluate the patient for further management. Time: 15:54 Administered Medications Nicotine (Nicoderm Cq) 14 mg TD [facility] Stop: 02/01/19 17:59 Last Admin: 01/02/19 18:25 Dose: 14 mg Documented by: [id number] Discontinued Medications Morphine Sulfate (Morphine Sulfate) 4 mg IV NOW STA Stop: 01/02/19 15:03 Last Admin: 01/02/19 15:24 Dose: 4 mg Documented by: [id number] Morphine Sulfate (Morphine Sulfate) 2 mg IV NOW STA Stop: 01/02/19 16:43 Last Admin: 01/02/19 16:55 Dose: 2 mg Documented by: [id number] Nitroglycerin (Nitrostat) 0.4 mg SL UD PRN PRN Reason: Chest Pain Stop: 02/01/19 14:24 Last Admin: 01/02/19 14:40 Dose: 0.4 mg Documented by: [id number] Admin: 01/02/19 14:30 Dose: 0.4 mg Documented by: [id number] Medical Decision Making Medical Records Attestation: I reviewed the patient's medical records. Home Medications Current Medication List: was personally reviewed by me Laboratory Data Attestation: I reviewed the patient's lab results. Result diagrams: 01/02/19 13:24 01/02/19 16:27 Lab Results 01/02/19 01/02/19 01/02/19 Range/Units 13:24 13:24 13:24 WBC 8.69 (4.8-10.8) K/uL RBC 3.85 L (4.2-5.4) M/uL Hgb 12.0 (12.0-16.0) g/dL Hct 34.3 L (37-47) % MCV 89.1 (80-100) fL MCH 31.2 (25-34) pg MCHC 35.0 (32-36) g/dL RDW Std Deviation 44.9 (36.4-46.3) fL RDW Coeff of Melany 13.8 (11.5-14.5) % Plt Count 268 (130-400) K/uL MPV 9.9 (7.4-10.4) fL Immature Gran % (Auto) 0.5 % Neut % (Auto) 55.3 % Lymph % (Auto) 31.6 % Swisher % (Auto) 9.3 % Eos % (Auto) 2.3 % Baso % (Auto) 1.0 % Immature Gran # (Auto) 0.04 H (0.00-0.02) K/uL Neut # (Auto) 4.80 (1.4-6.5) K/uL Lymph # (Auto) 2.75 (1.2-3.4) K/uL Swisher # (Auto) 0.81 H (0.11-0.59) K/uL Eos # (Auto) 0.20 (0-0.5) K/uL Baso # (Auto) 0.09 (0-0.2) K/uL PT 9.9 (9.0-12.0) Seconds INR 1.0 (0.9-1.1) APTT 27.9 (21.0-31.0) Seconds PTT Ratio 1.0 Sodium 139 (136-145) mmol/L Potassium 4.2 (3.5-5.1) mmol/L Chloride 109 H (98-107) mmol/L Carbon Dioxide 24 (21-32) mmol/L Anion Gap 6.0 (3-11) BUN 14 (7-18) mg/dl Creatinine 0.98 (0.6-1.2) mg/dl Est Cr Clr Drug Dosing 52.0 ml/min Est GFR ( Amer) 68.7 Est GFR (Non-Af Amer) 59.3 BUN/Creatinine Ratio 14.1 (10-20) Glucose 96 (70-99) mg/dl Calcium 9.0 (8.5-10.1) mg/dl Total Bilirubin 0.2 (0.2-1) mg/dl AST 21 (15-37) U/L ALT 24 (12-78) U/L Alkaline Phosphatase 110 (45-117) U/L Troponin I < 0.015 (0-0.045) ng/ml Total Protein 7.4 (6.4-8.2) gm/dl Albumin 3.4 (3.4-5.0) gm/dl Globulin 4.0 (2.5-4.0) gm/dl Albumin/Globulin Ratio 0.9 (0.9-2) Lipase (73-393) U/L Specimen Hemolysis 01/02/19 01/02/19 Range/Units 16:27 16:27 WBC (4.8-10.8) K/uL RBC (4.2-5.4) M/uL Hgb (12.0-16.0) g/dL Hct (37-47) % MCV (80-100) fL MCH (25-34) pg MCHC (32-36) g/dL RDW Std Deviation (36.4-46.3) fL RDW Coeff of Melany (11.5-14.5) % Plt Count (130-400) K/uL MPV (7.4-10.4) fL Immature Gran % (Auto) % Neut % (Auto) % Lymph % (Auto) % Swisher % (Auto) % Eos % (Auto) % Baso % (Auto) % Immature Gran # (Auto) (0.00-0.02) K/uL Neut # (Auto) (1.4-6.5) K/uL Lymph # (Auto) (1.2-3.4) K/uL Swisher # (Auto) (0.11-0.59) K/uL Eos # (Auto) (0-0.5) K/uL Baso # (Auto) (0-0.2) K/uL PT 10.1 (9.0-12.0) Seconds INR 1.0 (0.9-1.1) APTT (21.0-31.0) Seconds PTT Ratio Sodium 140 (136-145) mmol/L Potassium 4.0 (3.5-5.1) mmol/L Chloride 109 H (98-107) mmol/L Carbon Dioxide 24 (21-32) mmol/L Anion Gap 6.0 (3-11) BUN 14 (7-18) mg/dl Creatinine 0.89 (0.6-1.2) mg/dl Est Cr Clr Drug Dosing 57.2 ml/min Est GFR ( Amer) 77.2 Est GFR (Non-Af Amer) 66.6 BUN/Creatinine Ratio 15.4 (10-20) Glucose 93 (70-99) mg/dl Calcium 9.1 (8.5-10.1) mg/dl Total Bilirubin 0.2 (0.2-1) mg/dl AST 18 (15-37) U/L ALT 22 (12-78) U/L Alkaline Phosphatase 95 (45-117) U/L Troponin I (0-0.045) ng/ml Total Protein 7.0 (6.4-8.2) gm/dl Albumin 3.4 (3.4-5.0) gm/dl Globulin 3.6 (2.5-4.0) gm/dl Albumin/Globulin Ratio 0.9 (0.9-2) Lipase 83 (73-393) U/L Specimen Hemolysis Imaging Data Radiologist's Impression: Radiology results as stated below per my review and the radiologist's interpretation: XR chest 1V portable HISTORY: Atypical chest pain COMPARISON: Chest 01/26/2018. FINDINGS: A few bibasilar linear densities suggesting scarring or subsegmental atelectasis. This remains unchanged. The cardiac silhouette remains mildly enlarged. No pleural effusions. No pneumothorax. No new focal lung consolidations to suggest pneumonia. No evidence for pulmonary edema. IMPRESSION: No significant change compared to the prior study. No acute process. Electronically signed by: Bello iVvas M.D. 01/02/2019 2:23 PM ECG Data Attestation: I personally reviewed and interpreted this ECG as follows: Indication: chest pain Rate (beats per minute): 86 Rhythm: normal sinus Findings: + other (normal intervals, left axis deviation) and + T-wave inversion (Lead 3) Comparison ECG Date: from (01/27/18) Change: the following changes noted (T wave inversion is old) Additional Comments: Prehospital EKG appears unchanged to in hospital EKG. Blood Pressure Blood Pressure Findings: Low blood pressure Blood Pressure Disposition: further management by hospitalist BRANDEN Narrative The patient is a 68 white F w/ PMHx of COPD, carotid stenosis, osteoporosis, depression, anxiety, and palpitations who presents to the ED w/ CC of intermittent chest pain beginning 3 hours ago. Differential diagnosis includes: cardiac ischemia, aortic dissection, pulmonary embolism, pneumonia, pneumothorax, musculoskeletal, infections, pericarditis, myocarditis, esophageal rupture, gastrointestinal, as well as others were entertained. Patient was seen and evaluated the bedside. The patient was complaining some chest pain that was left-sided stabbing radiating to the left shoulder with associated nausea and diaphoresis. Patient states that one nitro did mildly improve the pain. The patient did receive 4 baby aspirin. The patient does have a known history of COPD is a chronic smoker. The patient relates no prior history of DVT or PE no recent procedures or surgeries and no recent prolonged car or plane travel. The patient has no lower extremity swelling. The patient does have mild crackles. The patient's EKG is fairly unremarkable and unchanged from prior. Troponin is not change. The patient did receive 2 nitro without much improvement of her pain. Morphine did improve it slightly. Patient does have a heart score of 5 so did speak the on-call hospitalist who admitted the patient. Patient was counseled on smoking cessation. Impression & Plan Atypical chest pain, Encounter for smoking cessation counseling Discharge Plan Visit Data *Final* Discharge Date/Time: 01/02/19 17:27 Chief Complaint: Chest Pain ED Provider: Brad Comer Discharge Problem: Atypical chest pain, Encounter for smoking cessation counseling Patient Disposition: Admitted As Inpatient Discharge Instructions Interventions: ED Discharge Assessment Last Done: 01/02/19 17:27 The scribe's documentation has been prepared under my direction and personally reviewed by me in its entirety. I confirm that the note above accurately reflects all work, treatment, procedures, and medical decision making performed by me.
[2019-01-02] MEDS: GABAPENTIN 300 MG CAP PO SCH (20:09)
[2019-01-02] MEDS ORDERED: AMITRIPTYLINE HCL 10 MG TAB PO SCH (21:00)
[2019-01-02] MEDS ORDERED: SERTRALINE HCL 100 MG TABLET PO SCH (21:00)
[2019-01-02] MEDS ORDERED: ENOXAPARIN INJ 40 MG/0.4 ML SYR SQ SCH (21:00)
[2019-01-03 06:22] LABS: Hematocrit (blood only) 34.3 % (37-47); Hemoglobin 11.7 g/dL (12.0-16.0); Mean Corpuscular Hgb Conc 34.1 g/dL (32-36); Mean Corpuscular Volume 89.8 fL (80-100); Mean Platelet Volume 9.5 fL (7.4-10.4); Platelet Count 218 K/uL (130-400); RDW Coefficient of Variation 13.7 % (11.5-14.5); RDW Standard Deviation 45.5 fL (36.4-46.3); Red Blood Count 3.82 M/uL (4.2-5.4); White Blood Count 6.89 K/uL (4.8-10.8)
[2019-01-03 06:59] LABS: BUN Creatinine Ratio 16.5 (10-20); Calcium 8.7 mg/dl (8.5-10.1); Creatinine Clr Calc Pharmacy 54.2 ml/min; Est GFR (African American) 72.2; Est GFR (Non-African American) 62.3; Magnesium 2.2 mg/dl (1.8-2.4)
[2019-01-03] MEDS ORDERED: ASPIRIN 81 MG ECTAB PO SCH (09:00)
[2019-01-03] MEDS ORDERED: PANTOprazole 40 MG TAB PO SCH (09:00)
[2019-01-03] MEDS ORDERED: BuPROPion SR 100 MG TABCR PO SCH (09:00)
[2019-01-03] MEDS ORDERED: ATORVASTATIN 20 MG TAB PO SCH (09:00)
--- NOTE | 2019-01-03 10:10 | Cardiology Consultation ---
Date of Consultation January 03, 2019 Assessment & Plan (1) Chest pain: Patient has a long history of atypical chest pain. Her symptoms were atypical in the sense that they began without any exertion yesterday. They are fairly extended in duration lasting up to 2 hours according to the patient but no elevation in her cardiac biomarkers. She was evaluated for the exact same symptoms in the past including coronary angiography performed in February 2018. This did not reveal any obstructive disease. Her symptoms have now resolved. I think this is unlikely to be cardiac in nature given the similarity to past symptoms and her evaluation to date. Certainly no acute coronary syndrome. I think she is ambulatory without recurrent symptoms she could be discharged home without any alteration in her medical therapy. Other etiologies for her symptoms could be musculoskeletal, stress related or even gastrointestinal although she appears to have been compliant with her proton pump inhibitor therapy. History of Present Illness Reason for Consultation: Chest pain Requesting Physician: Saundra Attending Physician: Roslyn Arguello MD History of Present Illness The patient is a 68-year-old woman with a long history of chest pain who experienced an episode of chest discomfort yesterday while shopping. Patient states that she was in the checkout line when she noticed the sudden acute onset of severe stabbing pain in the left lateral chest area. This did involve the l eft shoulder and left arm. Patient was able to ambulate to her automobile where she rested for a period of time. This improved her symptoms but did not alleviate them entirely. She drove to her apartment complex and upon exiting the vehicle noticed worsening of her symptoms. She ambulated to her building and was met by the maintenance job titles who suggested she sit down and take some aspirin. 911 was called and the patient was transported to [facility] for an evaluation. Patient states that during this entire time she did have some element of discomfort. It waxed and waned in severity but she feels it may have lasted for up to 2 hours before she obtained complete relief. Nitroglycerin in the emergency room did provide some relief. She had some associated dyspnea. She did not have any dizziness or lightheadedness. She did not report being diaphoretic or presyncopal. The patient has had many similar episodes in the past. This 1 was perhaps more severe and lasted slightly longer than some. A couple of days ago the patient had a similar episode which was very transient in nature. She states that she has been under more stress recently. In general she does not have exertional symptoms but is significantly limited by back and hip pain. She has not been aware of palpitations. She denies orthopnea or paroxysmal nocturnal dyspnea. She has noted some swelling in her lower extremities which is chronic in nature. She had some gastrointestinal discomfort 4 days ago but did not have significant vomiting. She has had intermittent episodes of diarrhea over the past few months. No recent constitutional symptoms such as fevers or chills. Allergies Allergy/AdvReac Type Severity Reaction Status Date / Time latex Allergy Mild RASH Verified 01/02/19 14:47 Iodinated Contrast- Oral and Allergy Unknown . Verified 01/02/19 14:47 IV Dye Penicillins Allergy Unknown Verified 01/02/19 14:47 varenicline AdvReac Severe NAUSEA Verified 01/02/19 14:47 benzalkonium chloride AdvReac Intermediate VERTIGO Verified 01/02/19 14:47 ibuprofen AdvReac Intermediate ACID REFLEX Verified 01/02/19 14:47 ofloxacin AdvReac Intermediate VERTIGO Verified 01/02/19 14:47 Corticosteroids AdvReac Unknown jittery Verified 01/02/19 14:47 (Glucocorticoids) and hyper [id number] Allergy Severe ANAPHYLAXIS Uncoded 01/02/19 14:47 Home Medications Home Medications Medication Instructions Recorded Confirmed Type amitriptyline 20 mg PO PM 09/20/18 01/02/19 History aspirin 81 mg PO QAM 09/20/18 01/02/19 History atorvastatin 20 mg PO QAM 09/20/18 01/02/19 History bupropion HCl 100 mg PO QAM 09/20/18 01/02/19 History hydrocodone-acetaminophen 1 tab PO QID PRN 09/20/18 01/02/19 History omeprazole 40 mg PO QAM 09/20/18 01/02/19 History sertraline 150 mg PO HS 09/20/18 01/02/19 History alendronate 70 mg PO WK 01/02/19 01/02/19 History calcium carbonate [Calcium 600] 600 mg PO DAILY 01/02/19 01/02/19 History cyclobenzaprine 5 mg PO TID PRN 01/02/19 01/02/19 History gabapentin 300 mg PO TID 01/02/19 01/02/19 History nitroglycerin 0.4 mg SUBLINGUAL UD 01/02/19 01/02/19 History Patient History Medical History Tobacco use (Chronic) GERD (gastroesophageal reflux disease) (Chronic) Diastolic dysfunction (Chronic) History of hysterectomy (Chronic) Nocturnal hypoxia (Chronic) reported secondary to COPD. Pt not on home oxygen HS secondary to reported insurance issues COPD (chronic obstructive pulmonary disease) (Chronic) Anxiety (Chronic) Osteoarthritis (Chronic) Carotid stenosis (Chronic) Osteoporosis (Chronic) Depression (Chronic) Palpitation (Resolved) Surgical History History of cholecystectomy (Chronic) Social History Preferred Language: [place] Communication Ability: Effective Condenser Cleaner Required: No Beliefs That Will Affect Care: None Current Living Situation: Alone Other Information That Helps Us Care for You: No Feels Safe at Home: Yes Safety Concerns: Feels Safe At This Time Smoking Status: Current every day smoker Tobacco Type: cigarettes Cigarettes Per Day: 1/3 ppd Do You Dip or Chew Tobacco: No Tobacco Cessation Education Requested by Patient: Yes Hx Alcohol Use: No Hx Substance Use: Yes substance use type: prescription drug Substance Use Type Other:: takes prescribed hydrocodone Review of Systems Review of Systems: All systems reviewed & are unremarkable except as noted in HPI & below Physical Exam Physical Exam: She is alert and oriented x3. Mood affect appear normal. She answered all questions appropriately. HEENT: Sclerae are anicteric. Pupils are equal and reactive to light and accommodation. Extraocular movements were intact. Neuro: Cranial nerves intact Neck: Examination of the submandibular region did not reveal any significant lymphadenopathy. Carotids are palpable bilaterally and free of bruits on auscultation. There was no evidence of jugular venous distention. The thyroid was not enlarged. Lungs: Lungs are clear to auscultation bilaterally. There are no rales wheezes or rhonchi. She has normal respiratory effort without use of accessory muscles. There is normal pulmonary excursion. Cardiac: The rhythm was regular. S1 and S2 were normal. There are no murmurs on examination. The PMI was not markedly displaced on palpation. Chest: Chest nontender to palpation Abdomen: The abdomen was soft and nontender. Extremities: Patient has bilateral radial pulses that are equal in intensity. There is no evidence cyanosis or clubbing. Mild bilateral pitting edema. Skin: There are no rashes noted on examination today. Results & Data Vital Signs (Past 12 Hours) Vital Signs Temp Pulse Pulse Resp BP Pulse Ox 01/03/19 07:41 36.7 C 102 H 18 121/73 95 01/03/19 07:39 72 01/03/19 04:24 36.8 C 72 20 97/62 L 92 01/03/19 00:00 75 01/02/19 23:48 36.8 C 80 20 163/73 H 90 Laboratory Results Abnormal Lab Results 01/02/19 01/02/19 01/02/19 13:24 13:24 13:24 WBC 8.69 RBC 3.85 L Hgb 12.0 Hct 34.3 L MCV 89.1 MCH 31.2 MCHC 35.0 RDW Std Deviation 44.9 RDW Coeff of Melany 13.8 Plt Count 268 MPV 9.9 Immature Gran % (Auto) 0.5 Neut % (Auto) 55.3 Lymph % (Auto) 31.6 [place] % (Auto) 9.3 Eos % (Auto) 2.3 Baso % (Auto) 1.0 Immature Gran # (Auto) 0.04 H Neut # (Auto) 4.80 Lymph # (Auto) 2.75 [place] # (Auto) 0.81 H Eos # (Auto) 0.20 Baso # (Auto) 0.09 PT 9.9 INR 1.0 APTT 27.9 PTT Ratio 1.0 Sodium 139 Potassium 4.2 Chloride 109 H Carbon Dioxide 24 Anion Gap 6.0 BUN 14 Creatinine 0.98 Est Cr Clr Drug Dosing 52.0 Est GFR ( Amer) 68.7 Est GFR (Non-Af Amer) 59.3 BUN/Creatinine Ratio 14.1 Glucose 96 Calcium 9.0 Magnesium Total Bilirubin 0.2 AST 21 ALT 24 Alkaline Phosphatase 110 Troponin I < 0.015 Total Protein 7.4 Albumin 3.4 Globulin 4.0 Albumin/Globulin Ratio 0.9 Triglycerides Cholesterol LDL Cholesterol, Calc VLDL Cholesterol, Calc HDL Cholesterol Cholesterol/HDL Ratio Lipase Specimen Hemolysis 01/02/19 01/02/19 01/02/19 16:27 16:27 16:38 WBC RBC Hgb Hct MCV MCH MCHC RDW Std Deviation RDW Coeff of Melany Plt Count MPV Immature Gran % (Auto) Neut % (Auto) Lymph % (Auto) [place] % (Auto) Eos % (Auto) Baso % (Auto) Immature Gran # (Auto) Neut # (Auto) Lymph # (Auto) [place] # (Auto) Eos # (Auto) Baso # (Auto) PT 10.1 INR 1.0 APTT PTT Ratio Sodium 140 Potassium 4.0 Chloride 109 H Carbon Dioxide 24 Anion Gap 6.0 BUN 14 Creatinine 0.89 Est Cr Clr Drug Dosing 57.2 Est GFR ( Amer) 77.2 Est GFR (Non-Af Amer) 66.6 BUN/Creatinine Ratio 15.4 Glucose 93 Calcium 9.1 Magnesium 2.1 Total Bilirubin 0.2 AST 18 ALT 22 Alkaline Phosphatase 95 Troponin I Total Protein 7.0 Albumin 3.4 Globulin 3.6 Albumin/Globulin Ratio 0.9 Triglycerides Cholesterol LDL Cholesterol, Calc VLDL Cholesterol, Calc HDL Cholesterol Cholesterol/HDL Ratio Lipase 83 Specimen Hemolysis 01/02/19 01/02/19 01/03/19 18:58 22:14 06:08 WBC 6.89 RBC 3.82 L Hgb 11.7 L Hct 34.3 L MCV 89.8 MCH 30.6 MCHC 34.1 RDW Std Deviation 45.5 RDW Coeff of Melany 13.7 Plt Count 218 MPV 9.5 Immature Gran % (Auto) Neut % (Auto) Lymph % (Auto) [place] % (Auto) Eos % (Auto) Baso % (Auto) Immature Gran # (Auto) Neut # (Auto) Lymph # (Auto) [place] # (Auto) Eos # (Auto) Baso # (Auto) PT INR APTT PTT Ratio Sodium Potassium Chloride Carbon Dioxide Anion Gap BUN Creatinine Est Cr Clr Drug Dosing Est GFR ( Amer) Est GFR (Non-Af Amer) BUN/Creatinine Ratio Glucose Calcium Magnesium Total Bilirubin AST ALT Alkaline Phosphatase Troponin I < 0.015 < 0.015 Total Protein Albumin Globulin Albumin/Globulin Ratio Triglycerides Cholesterol LDL Cholesterol, Calc VLDL Cholesterol, Calc HDL Cholesterol Cholesterol/HDL Ratio Lipase Specimen Hemolysis 01/03/19 06:08 WBC RBC Hgb Hct MCV MCH MCHC RDW Std Deviation RDW Coeff of Melany Plt Count MPV Immature Gran % (Auto) Neut % (Auto) Lymph % (Auto) [place] % (Auto) Eos % (Auto) Baso % (Auto) Immature Gran # (Auto) Neut # (Auto) Lymph # (Auto) [place] # (Auto) Eos # (Auto) Baso # (Auto) PT INR APTT PTT Ratio Sodium 138 Potassium 4.0 Chloride 108 H Carbon Dioxide 27 Anion Gap 3.0 BUN 16 Creatinine 0.94 Est Cr Clr Drug Dosing 54.2 Est GFR ( Amer) 72.2 Est GFR (Non-Af Amer) 62.3 BUN/Creatinine Ratio 16.5 Glucose 91 Calcium 8.7 Magnesium 2.2 Total Bilirubin AST ALT Alkaline Phosphatase Troponin I Total Protein Albumin Globulin Albumin/Globulin Ratio Triglycerides 721 H Cholesterol 276 H LDL Cholesterol, Calc VLDL Cholesterol, Calc HDL Cholesterol 38 Cholesterol/HDL Ratio 7 Lipase Specimen Hemolysis Diagnostic Findings Chest x-ray at the time of admission did not reveal any acute cardiopulmonary process. ECG Additional Comments: Normal sinus rhythm, incomplete right bundle branch block. Nonspecific ST and T wave changes
--- NOTE | 2019-01-03 11:27 | Hospitalist Progress Note ---
Date of Service January 03, 2019 Assessment & Plan (1) Chest pain: Pt presented to ER with c/o left anterior CP with radiation to left arm today while grocery shopping. Associated diaphoresis and SOB. Was given nitro with some relief of CP and reported relief with morphine. No further SOB. Hx cardiac cath 02/[address] Isabel: Nonobstructive coronary disease. There was a 40-50% stenosis in the mid right coronary artery. There is also approximately 40% stenosis at the takeoff of the PDA. Serial cardiac enzymes have been negative EKG is not showing any significant changes Patient is not having any cardiac symptoms Appreciate cardiology input and recommendation To send home this afternoon (2) Anxiety: -Continue sertraline, bupropion (3) COPD (chronic obstructive pulmonary disease): Pt denies any current inhaler use -albuterol prn -No acute symptoms of shortness of breath and/or wheezing (4) Diastolic dysfunction: 08/2017 echo: EF: 60-65%, grade II diastolic dysfunction No evidence of any fluid overload (5) Nocturnal hypoxia: Reported nocturnal hypoxia secondary to COPD. Home oxygen at 1L HS was recommended however pt not on secondary to reported insurance issues -supplemental oxygen prn (6) GERD (gastroesophageal reflux disease): -Continue PPI -Denies any reflux symptoms (7) Tobacco use: -Tobacco cessation encouraged -Nicotine patch DVT Prophylaxis -Lovenox SQ Full Code as per discussion with pt Follows with Dr Arredondo for routine care Will discharge home this afternoon on sublingual nitro as needed Subjective 01/03 Patient was seen and examined in medical telemetry unit Pt is 68 y/o F with PMH GERD, anxiety, COPD, HLD, nocturnal hypoxia (not on oxygen as wasn't covered by insurance) presented to ER with c/o CP. Pt reports was grocery shopping today when developed left anterior CP with radiation to L arm with some diaphoresis reported. She has been free of any chest pain since admission Denies any other symptoms this morning She was evaluated by machine grainer and was advised that she can go home Review of Systems Review of Systems: All systems reviewed and are unremarkable except as noted below Respiratory: no chest congestion and no dyspnea Cardiovascular: no chest pain and no dyspnea Physical Exam Physical Exam: No apparent distress at rest Constitutional: well developed and well nourished; no acute distress Eyes: PERRL, conjunctivae normal, anicteric sclerae ENMT: external ear and nose normal, oropharynx normal Neck: trachea midline, no thyromegaly Respiratory: normal respiratory effort, lungs clear to auscultation Cardiovascular: Rate/Rhythm: regular rate and regular rhythm Heart Sounds: normal S1 and normal S2; no murmur Extremities: + pedal edema (Trace) Chest (Breasts): Additional Comments: Precordial tenderness Gastrointestinal (Abdomen): normal bowel sounds, soft, nontender, no hepatosplenomegaly Musculoskeletal: No acute arthritis Neurologic: patellar DTR's 2+ bilat, sensation intact Psychiatric: A+Ox3, euthymic affect Lymphatic: no cervical or axillary lymphadenopathy Results & Data Vital Signs (Past 12 Hours) Vital Signs Temp Pulse Pulse Resp BP Pulse Ox 01/03/19 07:41 36.7 C 102 H 18 121/73 95 01/03/19 07:39 72 01/03/19 04:24 36.8 C 72 20 97/62 L 92 01/03/19 00:00 75 01/02/19 23:48 36.8 C 80 20 163/73 H 90 Laboratory Results Short CBC 01/02/19 01/03/19 Range/Units 13:24 06:08 WBC 8.69 6.89 (4.8-10.8) K/uL Hgb 12.0 11.7 L (12.0-16.0) g/dL Hct 34.3 L 34.3 L (37-47) % Plt Count 268 218 (130-400) K/uL BMP 01/02/19 01/02/19 01/03/19 13:24 16:27 06:08 Sodium 139 140 138 Potassium 4.2 4.0 4.0 Chloride 109 H 109 H 108 H Carbon Dioxide 24 24 27 BUN 14 14 16 Creatinine 0.98 0.89 0.94 Glucose 96 93 91 Calcium 9.0 9.1 8.7 Cardiac Enzymes 01/02/19 01/02/19 01/02/19 Range/Units 13:24 18:58 22:14 Troponin I < 0.015 < 0.015 < 0.015 (0-0.045) ng/ml Liver Function 01/02/19 01/02/19 Range/Units 13:24 16:27 Total Bilirubin 0.2 0.2 (0.2-1) mg/dl AST 21 18 (15-37) U/L ALT 24 22 (12-78) U/L Alkaline Phosphatase 110 95 (45-117) U/L Albumin 3.4 3.4 (3.4-5.0) gm/dl Medications Administered Current Inpatient Medications Acetaminophen (Tylenol) 650 mg PO Q4H PRN PRN Reason: Pain or Fever Stop: 02/01/19 17:45 Hydrocodone Bitart/Acetaminophen (Rhodes 5/325) 1 tab PO QID PRN PRN Reason: Pain Stop: 01/16/19 17:45 Last Admin: 01/02/19 20:10 Dose: 1 tab Documented by: Albuterol (Ventolin 0.083% 2.5mg/3ml) 2.5 mg NEB Q6R PRN PRN Reason: Shortness Of Breath Or Wheezing Stop: 02/01/19 17:45 Amitriptyline HCl (Elavil) 20 mg PO PM KELSIE Stop: 02/01/19 20:59 Last Admin: 01/02/19 20:09 Dose: 20 mg Documented by: Aspirin (Ecotrin Ectab) 81 mg PO QAM [facility] Stop: 02/02/19 08:59 Atorvastatin Calcium (Lipitor) 20 mg PO QAM [facility] Stop: 02/02/19 08:59 Bupropion HCl (Wellbutrin-Sr) 100 mg PO QAM [facility] Stop: 02/02/19 08:59 Enoxaparin Sodium (Lovenox) 40 mg SQ Q24H KELSIE Stop: 02/01/19 20:59 Last Admin: 01/02/19 20:11 Dose: 40 mg Documented by: Gabapentin (Neurontin) 300 mg PO TID [facility] Stop: 02/01/19 20:59 Last Admin: 01/02/19 20:09 Dose: 300 mg Documented by: Miscellaneous (Remove Nicoderm Patch) 1 ea N/A HS [facility] Stop: 02/02/19 08:58 Nicotine (Nicoderm Cq) 14 mg TD QAM [facility] Stop: 02/01/19 17:59 Last Admin: 01/02/19 18:25 Dose: 14 mg Documented by: Nitroglycerin (Nitrostat) 0.4 mg SL UD PRN PRN Reason: Chest Pain Stop: 02/01/19 17:45 Last Admin: 01/02/19 21:30 Dose: 0.4 mg Documented by: Pantoprazole Sodium (Protonix) 40 mg PO DAILY KELSIE Stop: 02/02/19 08:59 Sertraline HCl (Zoloft) 150 mg PO HS KELSIE Stop: 02/01/19 20:59 Last Admin: 01/02/19 20:09 Dose: 150 mg Documented by:
[2019-01-03] MEDS: NICOTINE 14 MG/24 HR PATCH TD SCH (13:37)
[2019-01-03] MEDS: GABAPENTIN 300 MG CAP PO SCH (13:39)
--- NOTE | 2019-01-04 08:41 | Discharge Summary ---
Date of Service January 04, 2019 Admission HPI Per Admitting Provider Pt is 68 y/o F with PMH GERD, anxiety, COPD, HLD, nocturnal hypoxia (not on oxygen as wasn't covered by insurance) presented to ER with c/o CP. Pt reports was grocery shopping today when developed left anterior CP with radiation to L arm with some diaphoresis reported. Pt states felt a little SOB when had symptoms. Symptoms continued and pt states took 4 baby aspirin and CP improved after approx 10 minutes. She denies any associated nausea, vomiting or dizziness. States when arrived to ER felt a little dizzy with transition from stretcher to ER bed, but that has since resolved. Was given nitro en route with some improvement of CP. Denies any further SOB. Pt reports hx CP in past and states this feels similar as her previous CP. Pt states she thinks previous CP was related to anxiety. She reports she is under a lot of stress with family conflict. Denies fever/chills, N/V/D/C, MEADOWS, syncope, vision changes, orthopnea, palpitations, cough, sore throat, choking, otalgia, rhinorrhea, abdominal pain, paresthesias, weakness, extremity edema, rashes, urinary symptoms. In ER pt was given additional nitro and then morphine with improvement of CP. Hx cardiac cath 02/[address] Isabel: Nonobstructive coronary disease. There was a 40-50% stenosis in the mid right coronary artery. There is also approximately 40% stenosis at the takeoff of the PDA. Admission Exam Per Admitting Provider Physical Exam: General: no acute distress, WDWN Head: normocephalic, atraumatic Eyes: PERRL, EOM's intact, conjunctiva non-injected, anicteric ENT: normal inspection external ears, nose, mucous membranes mildly dry Neck: supple, trachea midline, non-tender Lungs: clear, no respiratory distress, no wheezing/rhonchi/rales CV: RRR, no murmur,Chest wall with mild tenderness to palpation left lower sternal region, no skin rashes noted, no pretibial edema Abd: normal BS, soft, non-tender Ext: no cyanosis, no calf tenderness Neuro: A&O x 3, no focal deficits noted, normal affect Skin: warm, dry Principal Diagnosis Chest pain likely secondary to costochondritis, no ACS Discharge Exam Constitutional well developed and well nourished; no acute distress Eyes PERRL, conjunctivae normal, anicteric sclerae ENMT external ear and nose normal, oropharynx normal Neck trachea midline, no thyromegaly Respiratory normal respiratory effort, lungs clear to auscultation Cardiovascular Rate/Rhythm: regular rate and regular rhythm Heart Sounds: normal S1 and normal S2; no murmur Extremities: + pedal edema (Trace) Gastrointestinal (Abdomen) normal bowel sounds, soft, nontender, no hepatosplenomegaly Neurologic patellar DTR's 2+ bilat, sensation intact Psychiatric A+Ox3, euthymic affect Lymphatic no cervical or axillary lymphadenopathy Discharge Data Allergies Allergy/AdvReac Type Severity Reaction Status Date / Time latex Allergy Mild RASH Verified 01/02/19 14:47 Iodinated Contrast- Oral and Allergy Unknown . Verified 01/02/19 14:47 IV Dye Penicillins Allergy Unknown Verified 01/02/19 14:47 varenicline AdvReac Severe NAUSEA Verified 01/02/19 14:47 benzalkonium chloride AdvReac Intermediate VERTIGO Verified 01/02/19 14:47 ibuprofen AdvReac Intermediate ACID REFLEX Verified 01/02/19 14:47 ofloxacin AdvReac Intermediate VERTIGO Verified 01/02/19 14:47 Corticosteroids AdvReac Unknown jittery Verified 01/02/19 14:47 (Glucocorticoids) and hyper DM-APAP-CPM Allergy Severe ANAPHYLAXIS Uncoded 01/02/19 14:47 Consultations 01/02/19 15:54 ED Decision to Admit Stat 01/02/19 17:46 Consult Cardiology Routine Hospital Course (1) Chest pain: Pt presented to ER with c/o left anterior CP with radiation to left arm today while grocery shopping. Associated diaphoresis and SOB. Was given nitro with some relief of CP and reported relief with morphine. No further SOB. Hx cardiac cath 02/[address] Isabel: Nonobstructive coronary disease. There was a 40-50% stenosis in the mid right coronary artery. There is also approximately 40% stenosis at the takeoff of the PDA. Serial cardiac enzymes have been negative EKG is not showing any significant changes Patient is not having any cardiac symptoms Appreciate cardiology input and recommendation To send home this afternoon (2) Anxiety: -Continue sertraline, bupropion (3) COPD (chronic obstructive pulmonary disease): Pt denies any current inhaler use -albuterol prn -No acute symptoms of shortness of breath and/or wheezing (4) Diastolic dysfunction: 08/2017 echo: EF: 60-65%, grade II diastolic dysfunction No evidence of any fluid overload (5) Nocturnal hypoxia: Reported nocturnal hypoxia secondary to COPD. Home oxygen at 1L HS was recommended however pt not on secondary to reported insurance issues -supplemental oxygen prn (6) GERD (gastroesophageal reflux disease): -Continue PPI -Denies any reflux symptoms (7) Tobacco use: -Tobacco cessation encouraged -Nicotine patch DVT Prophylaxis -Lovenox SQ Full Code as per discussion with pt Follows with Dr Arerdondo for routine care Will discharge home this afternoon on sublingual nitro as needed Total Time Total Time Spent Total Time Spent (In Minutes): 35 minutes Total Time Includes: Examination of the Patient, Discharge Planning, Medication Reconciliation and Communication With Other Providers Discharge Plan Discharge Items Patient Disposition: Home - Self-Care Reason For Visit: CHEST PAIN Discharge Diagnosis: Chest pain likely secondary to costochondritis, no ACS Condition: Good Discharge Goals: Decrease discomfort and Improve function Activity: Resume your previous activity Non-emergency contact: Primary Care Provider Call non-emergency contact if: you have any medication questions and your symptoms worsen Follow-up/Referrals: Richar Arredondo MD [Primary Care Provider] - 01/08/19 12:45 pm (Keep your cardiology appointment as usual) Diet: Heart Healthy Addtl Provider Instructions: Please take precaution to avoid falls Prescriptions: New nitroglycerin 0.4 mg Tablet, Sublingual 0.4 mg sublingual UD 30 Days Qty: 25 RF: 0 nicotine 14 mg/24 hr patch 24 hour 1 patch TD DAILY Qty: 21 RF: 0 Continued atorvastatin 20 mg tablet 20 mg PO QAM RF: 0 hydrocodone-acetaminophen 5-325 mg tablet 1 tab PO QID PRN (Reason: Pain) RF: 0 sertraline 100 mg tablet 150 mg PO HS RF: 0 omeprazole 40 mg capsule,delayed release(DR/EC) 40 mg PO QAM RF: 0 aspirin 81 mg Tablet,Delayed Release (Dr/Ec) 81 mg PO QAM RF: 0 bupropion HCl 100 mg tablet sustained-release 12 hr 100 mg PO QAM RF: 0 amitriptyline 10 mg tablet 20 mg PO PM RF: 0 alendronate 70 mg Tablet 70 mg PO WK RF: 0 calcium carbonate [Calcium 600] 600 mg calcium (1,500 mg) Tablet 600 mg PO DAILY RF: 0 gabapentin 300 mg Capsule 300 mg PO TID RF: 0 cyclobenzaprine 5 mg Tablet 5 mg PO TID PRN (Reason: Muscle Spasm) RF: 0 Stand-Alone Forms: Call Back Authorization, [facility] Discharge Orders: Discharge Order (Routine); Ordered 01/03/19 Ordered By: Roslyn Arguello Admission Data Admit Date/Time: 01/02/19 16:38 Attending Provider: Roslyn Arguello Admit Provider: Alfonso Delgadillo Primary Care Provider: Richar Arredondo I. Other Providers: Dylon Gagnon ; Alfonso Delgadillo Service: Telemetry Medical Other Interventions: Discharge Summary Assessment (RN) Last Done: 01/03/19 13:24 DC Date/Time DO NOT enter until pt leaves facility: 01/03/19 14:02
== END 2019-01-03 14:02 | disposition home or self-care (01) ==
LOC: ED 13:18 → 2N 13:18

== ENCOUNTER 2019-09-05 18:06 | Observation (INO) ==
[2019-09-05] MEDS ORDERED: ALBUT/IPRATROP 3MG/0.5MG NEB 3 ML VIAL INH STA (18:33)
[2019-09-05] MEDS ORDERED: NITROGLYCERIN 2% OINTMENT 30GM TUBE EXT ONE (18:37)
[2019-09-05 18:43] LABS: Basophils % (auto) 1.1 %; Eosinophils % (auto) 3.2 %; Hemoglobin 11.9 g/dL (12.0-16.0); Immature Granulocytes # (auto) 0.04 K/uL (0.00-0.02); Immature Granulocytes % (auto) 0.4 %; Lymphocytes # (auto) 3.45 K/uL (1.2-3.4); Lymphocytes % (auto) 36.5 %; Mean Corpuscular Hemoglobin 30.7 pg (25-34); Mean Corpuscular Hgb Conc 33.1 g/dL (32-36); Mean Platelet Volume 10.4 fL (7.4-10.4); Monocytes # (auto) 0.95 K/uL (0.11-0.59); Monocytes % (auto) 10.1 %; Neutrophils # (auto) 4.61 K/uL (1.4-6.5); Neutrophils % (auto) 48.7 %; Platelet Count 245 K/uL (130-400); RDW Coefficient of Variation 13.7 % (11.5-14.5); RDW Standard Deviation 46.3 fL (36.4-46.3); Red Blood Count 3.87 M/uL (4.2-5.4); White Blood Count 9.45 K/uL (4.8-10.8)
--- NOTE | 2019-09-05 18:56 | XRay Report ---
XR chest 1V portable HISTORY: 69 years-old Female Dyspnea acute shortness of breath COMPARISON: Chest radiograph 02/28/2018 TECHNIQUE: Portable AP view of the chest FINDINGS: Unchanged left basilar atelectasis/scarring. Patient is rotated towards the right. New subtle ill-def ined right basilar opacities. Cardiac silhouette is mildly enlarged, unchanged. Calcified plaque of t he thoracic aortic arch. No pneumothorax, pleural effusion or overt pulmonary edema. Degenerative andrés nges of the shoulders and spine. IMPRESSION: 1. Unchanged scarring/atelectasis of the lung base with new subtle right lung base opacities suggesti ve of atelectasis or pneumonitis. 2. Mild cardiomegaly. ACT 112: Negative or not required by law. The above report was generated using voice recognition software. It may contain grammatical, syntax o r spelling errors. Electronically signed by: Miles Pascual M.D. 09/05/2019 6:55 PM
[2019-09-05 18:59] LABS: Alanine Aminotransferase 24 U/L (12-78); Albumin Globulin Ratio 0.8 (0.9-2); Albumin Level 3.5 gm/dl (3.4-5.0); Alkaline Phosphatase 110 U/L (45-117); Aspartate Aminotransferase 21 U/L (15-37); BUN Creatinine Ratio 13.7 (10-20); Bilirubin,Total 0.2 mg/dl (0.2-1); Blood Urea Nitrogen 14 mg/dl (7-18); Calcium 9.1 mg/dl (8.5-10.1); Carbon Dioxide 27 mmol/L (21-32); Chloride 109 mmol/L (98-107); Creatinine Clr Calc Pharmacy 44.1 ml/min; Est GFR (Non-African American) 53.5; Globulin 4.5 gm/dl (2.5-4.0); Glucose 121 mg/dl (70-99); Potassium 3.9 mmol/L (3.5-5.1); Sodium 138 mmol/L (136-145)
[2019-09-05 19:03] LABS: Partial Thromboplastin Time 27.6 Seconds (21.0-31.0); Prothrombin Time 9.9 Seconds (9.0-12.0)
[2019-09-05 19:17] LABS: Troponin I < 0.015 ng/ml (0-0.045)
[2019-09-05 19:33] LABS: D Dimer 960 ug/L FEU (0-500)
[2019-09-05] MEDS ORDERED: DiphenhydrAMINE HCL 50 MG/ML VIAL IV STA (20:44)
[2019-09-05] MEDS ORDERED: methylPREDNISolone 125 MG/2 ML VIAL IV STA (20:44)
[2019-09-05] MEDS ORDERED: OPTIRAY 320 125ml IV PRN (21:15)
--- NOTE | 2019-09-05 21:46 | CT Scan Report ---
CT angio chest PE protocol CT DOSE: 497.17 mGy.cm HISTORY: 69 years-old Female with sob eval for PE. Acute shortness of breath TECHNIQUE: Multiple CTA images of the chest were obtained after the intravenous administration of 117 ml Optiray 320. Coronal and sagittal MIPS were obtained from the axial data set and were submitted for review. All measurements were obtained according to NASCET criteria. A dose lowering technique w as utilized adhering to the principles of ALARA. COMPARISON: Chest radiograph of same day, CTA chest 05/29/2017 FINDINGS: CTA: Heart is mildly enlarged. No pericardial effusion. Coronary artery calcifications. Moderate extensive mixed plaque of the thoracic aorta. No thoracic aortic aneurysm or dissection. Patency of the imaged great vessels. Pulmonary arterial tree is opacified to the subsegmental branches. The segmental and subsegmental branches within the lung bases are suboptimally evaluated secondary to respiratory motio n artifact. No filling defects identified to suggest pulmonary thromboembolic disease. CT CHEST: Unremarkable thyroid. No adenopathy. Subsegmental bibasilar linear and consolidative opacities sugges t atelectasis. No overt pulmonary edema. Decreased AP dimension of the distal trachea and bronchi. Bi lateral bronchial wall thickening. There are no suspicious pulmonary nodules or masses. Mild emphysem a. No airspace consolidation typical for pneumonia. There are a few thin-walled pulmonary cysts. Cent ral airways appear patent. No acute process of the imaged upper abdomen. Soft tissues are within normal limits. Degenerative andrés nges of the shoulders and spine. Multiple healed remote right-sided rib fractures. No acute fracture. IMPRESSION: 1. Cardiomegaly without evidence of pulmonary thromboembolic disease. 2. Bibasilar opacities suggest atelectasis. No airspace consolidation typical for pneumonia. 3. No adenopathy or pleural effusion. 4. Mild bronchial wall thickening suggests bronchitis or reactive airway disease. Additionally, there may be associated tracheobronchomalacia. 5. Mild emphysema. ACT 112: Negative or not required by law. The above report was generated using voice recognition software. It may contain grammatical, syntax o r spelling errors. Electronically signed by: Miles Pascual M.D. 09/05/2019 9:44 PM
[2019-09-05 21:52] LABS: Appearance Urine Clear (Clear); Bacteria Urine Automated Negative (Negative); Bilirubin Urine Negative (Negative); Blood Urine Trace (Negative); Cast Urine Automated 0 /lpf (0-5); Color Urine Yellow; Glucose Urine UA Negative (Negative); Ketones Urine Negative (Negative); Leukocyte Esterase Urine Negative (Negative); Nitrite Urine Negative (Negative); Protein Urine Negative (Negative); RBC Urine Automated 0-4 /hpf (0-4); Specific Gravity Urine 1.019 (1.000-1.030); Urobilinogen Urine Negative (Negative)
[2019-09-05 22:45] LABS: Troponin I 0.062 ng/ml (0-0.045)
[2019-09-05] MEDS ORDERED: Heparin IV Standard *NO* Bolus STA (22:53)
[2019-09-05] MEDS ORDERED: ASPIRIN 81 MG ECTAB PO STA (23:06)
--- NOTE | 2019-09-05 23:06 | History & Physical Report ---
Date of Service September 05, 2019 Assessment & Plan (1) ACS (acute coronary syndrome): NTEMI hx nonobstructive CAD as per records chronic diastolic heart failure as per records (EF 65 to 70%, TTE 2019), patient euvolemic hypertension, slightly elevated hyperlipidemia on statin Rx chronic respiratory failure as per records, oxygenation at baseline COPD as per records, no exacerbation off lung disease as per history obtained from patient anxiety/mood disorder, at baseline chronic anemia, hemoglobin at baseline ongoing tobacco abuse PCU Continue home aspirin, statin Rx for secondary CAD prevention Initiate beta-randi; IV heparin Follow troponin TTE, Cardio consult Re: ACS (Patient known to Dr. Isabel.) Nicotine patch DVT prophylaxis. IV heparin Full code History of Present Illness Chief Complaint: Chest pain Primary Care Provider: Richar Arredondo MD History obtained from patient and records. Medical history significant for chronic diastolic heart failure as per records (EF 65 to 70%, TTE 2019), hx nonobstructive CAD/ PVD as per records, hypertension, hyperlipidemia, chronic respiratory failure as per records, COPD as per records, anxiety/mood disorder, chronic anemia baseline hemoglobin of 11, ongoing tobacco abuse. Recent confinement December 2018 for chest pain attributed to costochondritis. ACS ruled out. As per patient, she has had daily "anginal" attacks the last few weeks described as sharp left-sided chest pain with some shortness of breath usually precipitated by stress/exertion. Relieved by rest and or nitro intake at home. No consultations done. Few hours ago, patient had shortness of breath associated with left-sided chest pain without unusual cough symptoms. Some relief with nitro Rx at home. At the ER, patient received Solu-Medrol, neb treatment, and nitroglycerin. Patient currently comfortable. Medical History as above Surgical History : Carpal surgery, cystoscopy, D&C, cholecystectomy, shoulder surgery, hysterectomy Family History : Breast cancer, heart disease Personal/Social history : Half pack daily, no EtOH intake, caregiver work Allergies Allergy/AdvReac Type Severity Reaction Status Date / Time latex Allergy Mild RASH Verified 09/05/19 18:56 Iodinated Contrast Media Allergy Unknown . Verified 09/05/19 18:56 Penicillins Allergy Unknown Unknown Verified 09/05/19 18:56 varenicline AdvReac Severe NAUSEA Verified 09/05/19 18:56 benzalkonium chloride AdvReac Intermediate VERTIGO Verified 09/05/19 18:56 ibuprofen AdvReac Intermediate ACID REFLEX Verified 09/05/19 18:56 ofloxacin AdvReac Intermediate VERTIGO Verified 09/05/19 18:56 Corticosteroids AdvReac Unknown jittery Verified 09/05/19 18:56 (Glucocorticoids) and hyper DM-APAP-CPM Allergy Severe ANAPHYLAXIS Uncoded 09/05/19 18:56 Home Medications Home Medications Medication Instructions Recorded Confirmed Type amitriptyline 20 mg PO PM 09/20/18 09/05/19 History aspirin 81 mg PO QAM 09/20/18 09/05/19 History hydrocodone-acetaminophen 1 tab PO QID PRN 09/20/18 09/05/19 History omeprazole 40 mg PO QAM 09/20/18 09/05/19 History sertraline 150 mg PO HS 09/20/18 09/05/19 History calcium carbonate [Calcium 600] 600 mg PO QAM 01/02/19 09/05/19 History cyclobenzaprine 5 mg PO TID PRN 01/02/19 09/05/19 History gabapentin 300 mg PO TID 01/02/19 09/05/19 History nitroglycerin 0.4 mg SUBLINGUAL UD 30 Days #25 01/03/19 09/05/19 Rx tab atorvastatin 40 mg PO QAM 02/28/19 09/05/19 History oxybutynin chloride 5 mg PO DAILY PRN 09/05/19 09/05/19 History umeclidinium-vilanterol [Anoro 1 ea INHALATION DAILY 09/05/19 09/05/19 History Ellipta] Past Med/Surg History Medical History Anxiety (Chronic) Carotid stenosis (Chronic) COPD (chronic obstructive pulmonary disease) (Chronic) Depression (Chronic) Diastolic dysfunction (Chronic) GERD (gastroesophageal reflux disease) (Chronic) Nocturnal hypoxia (Chronic) reported secondary to COPD. Pt not on home oxygen HS secondary to reported insurance issues Osteoarthritis (Chronic) Osteoporosis (Chronic) Palpitation (Resolved) Tobacco use (Chronic) Surgical History History of cholecystectomy (Chronic) History of hysterectomy (Chronic) Social History Preferred Language: Cambodian Communication Ability: Effective Shoveler Required: No Beliefs That Will Affect Care: None Current Living Situation: Alone Other Information That Helps Us Care for You: No Feels Safe at Home: Yes Safety Concerns: Feels Safe At This Time Smoking Status: Current every day smoker Tobacco Type: cigarettes ; Cigarettes Per Day: 10 ; Do You Dip or Chew Tobacco: No ; Hx Alcohol Use: No Hx Substance Use: No Review of Systems Review of Systems: As per HPI, all 10 systems reviewed, all other ROS negative Physical Exam Physical Exam: GENERAL: Comfortable, obese, no respiratory distress SKIN: Normal color, warm HEENT: [place] palpebral conjunctivae, no ptosis, dry buccal mucosa, nasal cannula in place NECK : Supple, short neck, no tenderness CHEST : Decreased breath sounds , no tenderness HEART : RRR, no obvious murmurs ABDOMEN: Some distention, nontender EXTREMITIES : Minimal LE swelling, no LE tenderness, no other conspicuous deformities noted NEUROLOGIC : Coherent, no facial asymmetry, no other gross focality Results & Data Vital Signs (Past 12 Hours) Vital Signs Temp Pulse Pulse Resp BP BP Pulse Ox 09/05/19 22:28 75 20 147/75 H 93 09/05/19 21:41 74 18 137/66 94 09/05/19 19:55 80 17 127/72 92 09/05/19 18:53 74 21 93 09/05/19 18:33 90 09/05/19 18:19 36.8 C 77 25 H 169/66 H 95 Laboratory Results Laboratory Results WBC 9.45 K/uL (4.8-10.8) 09/05/19 18:05 RBC 3.87 M/uL (4.2-5.4) L 09/05/19 18:05 Hgb 11.9 g/dL (12.0-16.0) L 09/05/19 18:05 Hct 36.0 % (37-47) L 09/05/19 18:05 MCV 93.0 fL (80-100) 09/05/19 18:05 MCH 30.7 pg (25-34) 09/05/19 18:05 MCHC 33.1 g/dL (32-36) 09/05/19 18:05 RDW Std Deviation 46.3 fL (36.4-46.3) 09/05/19 18:05 RDW Coeff of Melany 13.7 % (11.5-14.5) 09/05/19 18:05 Plt Count 245 K/uL (130-400) 09/05/19 18:05 MPV 10.4 fL (7.4-10.4) 09/05/19 18:05 Immature Gran % (Auto) 0.4 % 09/05/19 18:05 Neut % (Auto) 48.7 % 09/05/19 18:05 Lymph % (Auto) 36.5 % 09/05/19 18:05 [place] % (Auto) 10.1 % 09/05/19 18:05 Eos % (Auto) 3.2 % 09/05/19 18:05 Baso % (Auto) 1.1 % 09/05/19 18:05 Immature Gran # (Auto) 0.04 K/uL (0.00-0.02) H 09/05/19 18:05 Neut # (Auto) 4.61 K/uL (1.4-6.5) 09/05/19 18:05 Lymph # (Auto) 3.45 K/uL (1.2-3.4) H 09/05/19 18:05 [place] # (Auto) 0.95 K/uL (0.11-0.59) H 09/05/19 18:05 Eos # (Auto) 0.30 K/uL (0-0.5) 09/05/19 18:05 Baso # (Auto) 0.10 K/uL (0-0.2) 09/05/19 18:05 PT 9.9 Seconds (9.0-12.0) 09/05/19 18:05 INR 1.0 (0.9-1.1) 09/05/19 18:05 APTT 27.6 Seconds (21.0-31.0) 09/05/19 18:05 PTT Ratio 1.0 09/05/19 18:05 D-Dimer 960 ug/L FEU (0-500) H* 09/05/19 18:05 Sodium 138 mmol/L (136-145) 09/05/19 18:05 Potassium 3.9 mmol/L (3.5-5.1) 09/05/19 18:05 Chloride 109 mmol/L (98-107) H 09/05/19 18:05 Carbon Dioxide 27 mmol/L (21-32) 09/05/19 18:05 Anion Gap 2.0 (3-11) L 09/05/19 18:05 BUN 14 mg/dl (7-18) 09/05/19 18:05 Creatinine 1.06 mg/dl (0.6-1.2) 09/05/19 18:05 Est Cr Clr Drug Dosing 44.1 ml/min 09/05/19 18:05 Est GFR ( Amer) 62.0 09/05/19 18:05 Est GFR (Non-Af Amer) 53.5 09/05/19 18:05 BUN/Creatinine Ratio 13.7 (10-20) 09/05/19 18:05 Glucose 121 mg/dl (70-99) H 09/05/19 18:05 Calcium 9.1 mg/dl (8.5-10.1) 09/05/19 18:05 Magnesium mg/dl (1.8-2.4) 09/05/19 22:11 Total Bilirubin 0.2 mg/dl (0.2-1) 09/05/19 18:05 AST 21 U/L (15-37) 09/05/19 18:05 ALT 24 U/L (12-78) 09/05/19 18:05 Alkaline Phosphatase 110 U/L (45-117) 09/05/19 18:05 Troponin I 0.062 ng/ml (0-0.045) H* 09/05/19 22:11 Total Protein 8.0 gm/dl (6.4-8.2) 09/05/19 18:05 Albumin 3.5 gm/dl (3.4-5.0) 09/05/19 18:05 Globulin 4.5 gm/dl (2.5-4.0) H 09/05/19 18:05 Albumin/Globulin Ratio 0.8 (0.9-2) L 09/05/19 18:05 Specimen Hemolysis 09/05/19 18:05 Urine Color Yellow 09/05/19 21:41 Urine Appearance Clear (Clear) 09/05/19 21:41 Urine pH 6.0 (4.5-7.5) 09/05/19 21:41 Ur Specific [place] 1.019 (1.000-1.030) 09/05/19 21:41 Urine Protein Negative (Negative) 09/05/19 21:41 Urine Glucose (UA) Negative (Negative) 09/05/19 21:41 Urine Ketones Negative (Negative) 09/05/19 21:41 Urine Blood Trace (Negative) H 09/05/19 21:41 Urine Nitrite Negative (Negative) 09/05/19 21:41 Urine Bilirubin Negative (Negative) 09/05/19 21:41 Urine Urobilinogen Negative (Negative) 09/05/19 21:41 Ur Leukocyte Esterase Negative (Negative) 09/05/19 21:41 Urine WBC (Auto) 1-5 /hpf (0-5) 09/05/19 21:41 Urine RBC (Auto) 0-4 /hpf (0-4) 09/05/19 21:41 U Hyaline Cast (Auto) 0 /lpf (0-5) 09/05/19 21:41 U Epithel Cells (Auto) 10-20 /lpf (0-5) H 09/05/19 21:41 Urine Bacteria (Auto) Negative (Negative) 09/05/19 21:[address] chest: 1. Cardiomegaly without evidence of pulmonary thromboembolic disease. 2. Bibasilar opacities suggest atelectasis. No airspace consolidation typical for pneumonia. 3. No adenopathy or pleural effusion. 4. Mild bronchial wall thickening suggests bronchitis or reactive airway disease. Additionally, there may be associated tracheobronchomalacia. 5. Mild emphysema. EKG as per my interpretation: Rate 75, NSR, LAD, LAFB, no ischemia
[2019-09-05] MEDS ORDERED: METOPROLOL TARTRATE 25 MG TAB PO STA (23:09)
[2019-09-05] MEDS ORDERED: HEPARIN 25000 UNIT/500 ML D5W IV ONE (23:13)
[2019-09-05] MEDS ORDERED: fentaNYL citrate 100 MCG/2 ML VIAL IV PRN (23:19)
[2019-09-05] MEDS ORDERED: ONDANSETRON INJ 2 MG/ML 2 ML VIAL IV STA (23:19)
[2019-09-05] MEDS: HEPARIN SODIUM/DEXTROSE 25,000 UNITS/500 ML BAG IV SCH (23:48)
--- NOTE | 2019-09-06 00:01 | Emergency Department Note ---
Entered by Peace Gonzalez acting as a scribe for History of Present Illness General Chief complaint: Shortness of Breath/Dyspnea Time Seen by Provider: 09/05/19 18:21 Source: patient Limitations: no limitations History of Present Illness Onset (ago): hour(s) 2 Location: chest Pain Consistency: + constant Quality: + other (SOB) Associated symptoms: + chest pain and + other (LUE swelling/pain); no fever/chills Treatments prior to arrival: other (breathing treatment) The patient is a 69 year old female who presents to the Emergency Room with complaints of constant SOB that began at 4:30 today, about 2 hours ago. She reports that she has been having intermittent chest pain for the past 2 weeks, noting that exertion does not exacerbate the pain. The patient states that the chest pain is left-sided, and she reports that she last had the chest pain yesterday. She complains of left upper extremity "throbbing and aching" pain. When queried she says it is possible that the left arm is slightly swollen compared to the right. She notes that she had left upper extremity pain today, but she didn't have any chest pain today. The patient reports that the chest pain and left upper extremity pain are usually associated. She states she is been having intermittent chest pain and she has been admitted in the past for this. She also states that she had a chemical stress test years ago which was unremarkable. The patient denies any fevers. She reports that she arrived at the hospital via EMS, and she was given a breathing treatment ROBOT TECHNICIAN. She states that the breathing treatment helped her feel much better. Initially when her symptoms started she felt as if she was going to . The patient reports that she smokes less than half a pack of cigarettes daily, and she denies taking any steroids. She notes a history of COPD. Home Medications Home Medications Medication Instructions Recorded Confirmed Type amitriptyline 20 mg PO PM 09/20/18 09/05/19 History aspirin 81 mg PO QAM 09/20/18 09/05/19 History hydrocodone-acetaminophen 1 tab PO QID PRN 09/20/18 09/05/19 History omeprazole 40 mg PO QAM 09/20/18 09/05/19 History sertraline 150 mg PO HS 09/20/18 09/05/19 History calcium carbonate [Calcium 600] 600 mg PO QAM 01/02/19 09/05/19 History cyclobenzaprine 5 mg PO TID PRN 01/02/19 09/05/19 History gabapentin 300 mg PO TID 01/02/19 09/05/19 History nitroglycerin 0.4 mg SUBLINGUAL UD 30 Days #25 01/03/19 09/05/19 Rx tab atorvastatin 40 mg PO QAM 02/28/19 09/05/19 History oxybutynin chloride 5 mg PO DAILY PRN 09/05/19 09/05/19 History umeclidinium-vilanterol [Anoro 1 ea INHALATION DAILY 09/05/19 09/05/19 History Ellipta] Allergies Allergy/AdvReac Type Severity Reaction Status Date / Time latex Allergy Mild RASH Verified 09/05/19 18:56 Iodinated Contrast Media Allergy Unknown . Verified 09/05/19 18:56 Penicillins Allergy Unknown Unknown Verified 09/05/19 18:56 varenicline AdvReac Severe NAUSEA Verified 09/05/19 18:56 benzalkonium chloride AdvReac Intermediate VERTIGO Verified 09/05/19 18:56 ibuprofen AdvReac Intermediate ACID REFLEX Verified 09/05/19 18:56 ofloxacin AdvReac Intermediate VERTIGO Verified 09/05/19 18:56 Corticosteroids AdvReac Unknown jittery Verified 09/05/19 18:56 (Glucocorticoids) and hyper DM-APAP-CPM Allergy Severe ANAPHYLAXIS Uncoded 09/05/19 18:56 Past Med/Surg History Medical History Anxiety (Chronic) Carotid stenosis (Chronic) COPD (chronic obstructive pulmonary disease) (Chronic) Depression (Chronic) Diastolic dysfunction (Chronic) GERD (gastroesophageal reflux disease) (Chronic) Nocturnal hypoxia (Chronic) reported secondary to COPD. Pt not on home oxygen HS secondary to reported insurance issues Osteoarthritis (Chronic) Osteoporosis (Chronic) Palpitation (Resolved) Tobacco use (Chronic) Surgical History History of cholecystectomy (Chronic) History of hysterectomy (Chronic) Social History Preferred Language: Norwegian Communication Ability: Effective Clothes Separator Required: No Beliefs That Will Affect Care: None Current Living Situation: Alone Feels Safe at Home: Yes Smoking Status: Current every day smoker Tobacco Type: cigarettes ; Cigarettes Per Day: 1/3 ppd ; Hx Alcohol Use: No Hx Substance Use: Yes substance use type: prescription drug Substance Use Type Other:: takes prescribed hydrocodone Review of Systems See HPI for pertinent positives & negatives. and A total of 10 systems reviewed and were otherwise negative Physical Exam Vital Signs Vital Signs - 24 hr 09/05/19 18:19 09/05/19 18:33 09/05/19 18:53 Temperature 36.8 C Temperature Source Oral Pulse Rate 77 Pulse Rate [Right Finger] 74 Respiratory Rate 25 H 21 Respiratory Effort / Characteristics Non-Labored Respiratory Depth Shallow Respiratory Pattern Tachypnea Blood Pressure 169/66 H Blood Pressure [Left Arm] Blood Pressure Mean 100 Blood Pressure Mean [Left Arm] Pulse Oximetry 95 90 93 Oxygen Delivery Method Room Air Room Air Room Air Oxygen Flow Rate Sepsis Recent Fever Within 48 Hours No Sepsis Action Taken by Nursing No Action Required 09/05/19 19:55 09/05/19 21:41 09/05/19 22:28 Temperature Temperature Source Pulse Rate Pulse Rate [Right Finger] 80 74 75 Respiratory Rate 17 18 20 Respiratory Effort / Characteristics Non-Labored Spontaneous Respiratory Depth Normal Respiratory Pattern Blood Pressure Blood Pressure [Left Arm] 127/72 137/66 147/75 H Blood Pressure Mean Blood Pressure Mean [Left Arm] 90 89 99 Pulse Oximetry 92 94 93 Oxygen Delivery Method Room Air Room Air Room Air Oxygen Flow Rate Sepsis Recent Fever Within 48 Hours Sepsis Action Taken by Nursing 09/05/19 23:18 09/05/19 23:47 Temperature Temperature Source Pulse Rate Pulse Rate [Right Finger] 76 78 Respiratory Rate 18 18 Respiratory Effort / Characteristics Respiratory Depth Respiratory Pattern Blood Pressure Blood Pressure [Left Arm] 167/75 H 160/73 H Blood Pressure Mean Blood Pressure Mean [Left Arm] 105 102 Pulse Oximetry 95 96 Oxygen Delivery Method Room Air Nasal Cannula Oxygen Flow Rate 2 Sepsis Recent Fever Within 48 Hours Sepsis Action Taken by Nursing Constitutional: Vital signs reviewed. Eyes: Pupils are equal round reactive to light. Conjunctiva are noninjected. ENT: Pharynx is clear without erythema or exudate. Mucous membranes are dry. Neck supple without meningeal signs. Respiratory: Scattered expiratory wheezing bilaterally.. Breath sounds are equal bilaterally. Cardiovascular: Regular rate and rhythm. No rubs or gallops. GI: Soft, nondistended and nontender. Bowel sounds are present. Musculoskeletal: No peripheral edema. No lower extremity tenderness. No left arm erythema, swelling, or tenderness. Her rings are loose. Normal distal pulses. Integumentary: No cyanosis. Neurological: The patient is awake and alert. No focal deficits. Psychiatric: Normal affect. Course Course 1823: The patient was evaluated in room B11B. A complete history and physical exam was performed. 2008: I reassessed the patient, and she stated that she was feeling much better. There was minimal to no wheezing on exam. She was agreeable to a CT of the chest. 2025: I reassessed the patient, and she stated that she has left-sided, sharp chest pain. She is getting an 18 gauge, so she can have an angiogram. 2043: The patient stated that she has hives with CT contrast. She notes that she has received premedication in the past. The patient denies any allergy to steroids, but she notes that they "make her mean." 2149: I reassessed the patient, and she stated that her chest pain is now gone. I recommended hospitalization. 2154: I spoke with Dr. Fidel Fischer, [facility] hospitalist, about the patients case. He will further evaluate the patient. 2311: I reassessed the patient, because her second troponin, ordered by Dr. Fischer, was positive. The patient stated that she was having a little sharp chest pain again. I ordered a repeat EKG and paged Dr. Fischer. 2314: I updated Dr. Fischer, and he stated that he ordered heparin. 2318: I instructed the nurse to give the patient fentanyl, and informed Dr. Fischer if the patient doesn't feel improved. The heparin drip was started. Administered Medications Fentanyl Citrate (Fentanyl Citrate) 50 mcg IV Q15M PRN PRN Reason: Pain Stop: 09/19/19 23:18 Last Admin: 09/05/19 23:23 Dose: 50 mcg Documented by: [id number] Heparin Sodium/Dextrose (Heparin Sodium/Dextrose) 25,000 units in 500 mls @ 20 mls/hr IV .Q24H [facility]; Protocol Stop: 10/05/19 22:59 Last Admin: 09/05/19 23:48 Dose: Not Given Documented by: [id number] Ioversol (Optiray 320 125ml) 117 ml IV ONCE PRN PRN Reason: Interaction Checking Stop: 01/20/20 21:14 Last Admin: 09/05/19 21:16 Dose: 117 ml Documented by: [id number] Discontinued Medications Albuterol (Duoneb) 3 ml INH NOW STA Stop: 09/05/19 18:34 Last Admin: 09/05/19 18:51 Dose: 3 ml Documented by: [id number] Aspirin (Ecotrin Ectab) 81 mg PO NOW STA Stop: 09/05/19 23:07 Last Admin: 09/05/19 23:19 Dose: 81 mg Documented by: [id number] Diphenhydramine HCl (Benadryl) 50 mg IV NOW STA Stop: 09/05/19 20:45 Last Admin: 09/05/19 20:50 Dose: 50 mg Documented by: [id number] Heparin Sodium/Dextrose () 1 ea N/A NOW STA; Protocol Stop: 09/05/19 22:54 Last Admin: 09/05/19 23:32 Dose: Not Given Documented by: [id number] Heparin Sodium/Dextrose (Heparin Sodium/Dextrose) Confirm Administered Dose 25,000 units IV .STK-MED ONE Stop: 09/05/19 23:14 Last Admin: 09/05/19 23:26 Dose: 1,000 units Documented by: [id number] Cosigned by: [id number] Methylprednisolone (Solumedrol) 125 mg IV NOW STA Stop: 09/05/19 20:45 Last Admin: 09/05/19 20:50 Dose: 125 mg Documented by: [id number] Metoprolol Tartrate (Lopressor) 12.5 mg PO NOW STA Stop: 09/05/19 23:10 Last Admin: 09/05/19 23:20 Dose: 12.5 mg Documented by: [id number] Nitroglycerin (Nitro-Bid 2%) 0.5 inch EXT NOW ONE Stop: 09/05/19 18:38 Last Admin: 09/05/19 18:51 Dose: 0.5 inch Documented by: [id number] Ondansetron HCl (Zofran) 4 mg IV NOW STA Stop: 09/05/19 23:20 Last Admin: 09/05/19 23:23 Dose: 4 mg Documented by: [id number] Critical Care Time Critical Care Time: Yes Total Critical Care Time: 35 I have personally spent approximately 35 minutes of critical care time in the direct management of this patient. This includes bedside care, interpretation of diagnostic studies, and testing, discussion with consultants, patient, and family members, and other required patient management activities. This 35 minutes is in excess of all separately billable procedures. Medical Decision Making Differential Diagnosis The differential diagnosis includes: COPD exacerbation, PE, unstable angina, TN, and pneumonia. Medical Records Attestation: I reviewed the patient's medical records. I did perform a limited focused review of portions of the patient's old chart on the electronic medical record. The patient was seen in February of last year for chest pain. She was discharged home after a work-up here. The patient was seen by cardiology in December of last year for chest pain, and it was noted that she has a long history of atypical chest pain. She had a coronary angiography in February of 2018, and it showed no obstructive disease. Home Medications Current Medication List: was personally reviewed by me Laboratory Data Attestation: I reviewed the patient's lab results. Result diagrams: 09/05/19 18:05 09/05/19 18:05 Lab Results 09/05/19 09/05/19 09/05/19 Range/Units 18:05 18:05 18:05 WBC 9.45 (4.8-10.8) K/uL RBC 3.87 L (4.2-5.4) M/uL Hgb 11.9 L (12.0-16.0) g/dL Hct 36.0 L (37-47) % MCV 93.0 (80-100) fL MCH 30.7 (25-34) pg MCHC 33.1 (32-36) g/dL RDW Std Deviation 46.3 (36.4-46.3) fL RDW Coeff of Melany 13.7 (11.5-14.5) % Plt Count 245 (130-400) K/uL MPV 10.4 (7.4-10.4) fL Immature Gran % (Auto) 0.4 % Neut % (Auto) 48.7 % Lymph % (Auto) 36.5 % [place] % (Auto) 10.1 % Eos % (Auto) 3.2 % Baso % (Auto) 1.1 % Immature Gran # (Auto) 0.04 H (0.00-0.02) K/uL Neut # (Auto) 4.61 (1.4-6.5) K/uL Lymph # (Auto) 3.45 H (1.2-3.4) K/uL [place] # (Auto) 0.95 H (0.11-0.59) K/uL Eos # (Auto) 0.30 (0-0.5) K/uL Baso # (Auto) 0.10 (0-0.2) K/uL PT 9.9 (9.0-12.0) Seconds INR 1.0 (0.9-1.1) APTT 27.6 (21.0-31.0) Seconds PTT Ratio 1.0 D-Dimer (0-500) ug/L FEU Sodium 138 (136-145) mmol/L Potassium 3.9 (3.5-5.1) mmol/L Chloride 109 H (98-107) mmol/L Carbon Dioxide 27 (21-32) mmol/L Anion Gap 2.0 L (3-11) BUN 14 (7-18) mg/dl Creatinine 1.06 (0.6-1.2) mg/dl Est Cr Clr Drug Dosing 44.1 ml/min Est GFR ( Amer) 62.0 Est GFR (Non-Af Amer) 53.5 BUN/Creatinine Ratio 13.7 (10-20) Glucose 121 H (70-99) mg/dl Calcium 9.1 (8.5-10.1) mg/dl Magnesium (1.8-2.4) mg/dl Total Bilirubin 0.2 (0.2-1) mg/dl AST 21 (15-37) U/L ALT 24 (12-78) U/L Alkaline Phosphatase 110 (45-117) U/L Troponin I < 0.015 (0-0.045) ng/ml Total Protein 8.0 (6.4-8.2) gm/dl Albumin 3.5 (3.4-5.0) gm/dl Globulin 4.5 H (2.5-4.0) gm/dl Albumin/Globulin Ratio 0.8 L (0.9-2) Specimen Hemolysis Urine Color Urine Appearance (Clear) Urine pH (4.5-7.5) Ur Specific [place] (1.000-1.030) Urine Protein (Negative) Urine Glucose (UA) (Negative) Urine Ketones (Negative) Urine Blood (Negative) Urine Nitrite (Negative) Urine Bilirubin (Negative) Urine Urobilinogen (Negative) Ur Leukocyte Esterase (Negative) Urine WBC (Auto) (0-5) /hpf Urine RBC (Auto) (0-4) /hpf U Hyaline Cast (Auto) (0-5) /lpf U Epithel Cells (Auto) (0-5) /lpf Urine Bacteria (Auto) (Negative) 09/05/19 09/05/19 09/05/19 Range/Units 18:05 21:41 22:11 WBC (4.8-10.8) K/uL RBC (4.2-5.4) M/uL Hgb (12.0-16.0) g/dL Hct (37-47) % MCV (80-100) fL MCH (25-34) pg MCHC (32-36) g/dL RDW Std Deviation (36.4-46.3) fL RDW Coeff of Melany (11.5-14.5) % Plt Count (130-400) K/uL MPV (7.4-10.4) fL Immature Gran % (Auto) % Neut % (Auto) % Lymph % (Auto) % [place] % (Auto) % Eos % (Auto) % Baso % (Auto) % Immature Gran # (Auto) (0.00-0.02) K/uL Neut # (Auto) (1.4-6.5) K/uL Lymph # (Auto) (1.2-3.4) K/uL [place] # (Auto) (0.11-0.59) K/uL Eos # (Auto) (0-0.5) K/uL Baso # (Auto) (0-0.2) K/uL PT (9.0-12.0) Seconds INR (0.9-1.1) APTT (21.0-31.0) Seconds PTT Ratio D-Dimer 960 H* (0-500) ug/L FEU Sodium (136-145) mmol/L Potassium (3.5-5.1) mmol/L Chloride (98-107) mmol/L Carbon Dioxide (21-32) mmol/L Anion Gap (3-11) BUN (7-18) mg/dl Creatinine (0.6-1.2) mg/dl Est Cr Clr Drug Dosing ml/min Est GFR ( Amer) Est GFR (Non-Af Amer) BUN/Creatinine Ratio (10-20) Glucose (70-99) mg/dl Calcium (8.5-10.1) mg/dl Magnesium (1.8-2.4) mg/dl Total Bilirubin (0.2-1) mg/dl AST (15-37) U/L ALT (12-78) U/L Alkaline Phosphatase (45-117) U/L Troponin I 0.062 H* (0-0.045) ng/ml Total Protein (6.4-8.2) gm/dl Albumin (3.4-5.0) gm/dl Globulin (2.5-4.0) gm/dl Albumin/Globulin Ratio (0.9-2) Specimen Hemolysis Urine Color Yellow Urine Appearance Clear (Clear) Urine pH 6.0 (4.5-7.5) Ur Specific [place] 1.019 (1.000-1.030) Urine Protein Negative (Negative) Urine Glucose (UA) Negative (Negative) Urine Ketones Negative (Negative) Urine Blood Trace H (Negative) Urine Nitrite Negative (Negative) Urine Bilirubin Negative (Negative) Urine Urobilinogen Negative (Negative) Ur Leukocyte Esterase Negative (Negative) Urine WBC (Auto) 1-5 (0-5) /hpf Urine RBC (Auto) 0-4 (0-4) /hpf U Hyaline Cast (Auto) 0 (0-5) /lpf U Epithel Cells (Auto) 10-20 H (0-5) /lpf Urine Bacteria (Auto) Negative (Negative) Imaging Data Radiologist's Impression: Radiology results as stated below per my review and the radiologist's interpretation: XR chest 1V portable HISTORY: 69 years-old Female Dyspnea acute shortness of breath COMPARISON: Chest radiograph 02/28/2018 TECHNIQUE: Portable AP view of the chest FINDINGS: Unchanged left basilar atelectasis/scarring. Patient is rotated towards the right. New subtle ill-defined right basilar opacities. Cardiac silhouette is mildly enlarged, unchanged. Calcified plaque of the thoracic aortic arch. No pneumothorax, pleural effusion or overt pulmonary edema. Degenerative changes of the shoulders and spine. IMPRESSION: 1. Unchanged scarring/atelectasis of the lung base with new subtle right lung base opacities suggestive of atelectasis or pneumonitis. 2. Mild cardiomegaly. ACT 112: Negative or not required by law. The above report was generated using voice recognition software. It may contain grammatical, syntax or spelling errors. Electronically signed by: Miles Pascual M.D. 09/05/2019 6:[address] angio chest PE protocol CT DOSE: 497.17 mGy.cm HISTORY: 69 years-old Female with sob eval for PE. Acute shortness of breath TECHNIQUE: Multiple CTA images of the chest were obtained after the intravenous administration of 117 ml Optiray 320. Coronal and sagittal MIPS were obtained from the axial data set and were submitted for review. All measurements were obtained according to NASCET criteria. A dose lowering technique was utilized adhering to the principles of ALARA. COMPARISON: Chest radiograph of same day, CTA chest 05/29/2017 FINDINGS: CTA: Heart is mildly enlarged. No pericardial effusion. Coronary artery calcifications. Moderate extensive mixed plaque of the thoracic aorta. No thoracic aortic aneurysm or dissection. Patency of the imaged great vessels. Pulmonary arterial tree is opacified to the subsegmental branches. The segmental and subsegmental branches within the lung bases are suboptimally evaluated secondary to respiratory motion artifact. No filling defects identified to suggest pulmonary thromboembolic disease. CT CHEST: Unremarkable thyroid. No adenopathy. Subsegmental bibasilar linear and consolidative opacities suggest atelectasis. No overt pulmonary edema. Decreased AP dimension of the distal trachea and bronchi. Bilateral bronchial wall thickening. There are no suspicious pulmonary nodules or masses. Mild emphysema. No airspace consolidation typical for pneumonia. There are a few thin-walled pulmonary cysts. Central airways appear patent. No acute process of the imaged upper abdomen. Soft tissues are within normal limits. Degenerative changes of the shoulders and spine. Multiple healed remote right-sided rib fractures. No acute fracture. IMPRESSION: 1. Cardiomegaly without evidence of pulmonary thromboembolic disease. 2. Bibasilar opacities suggest atelectasis. No airspace consolidation typical for pneumonia. 3. No adenopathy or pleural effusion. 4. Mild bronchial wall thickening suggests bronchitis or reactive airway disease. Additionally, there may be associated tracheobronchomalacia. 5. Mild emphysema. ACT 112: Negative or not required by law. The above report was generated using voice recognition software. It may contain grammatical, syntax or spelling errors. Electronically signed by: Miles Pascual M.D. 09/05/2019 9:44 PM ECG Data Attestation: I personally reviewed and interpreted this ECG as follows: Indication: + SOB/dyspnea Rate (beats per minute): [address] segments: no ST elevation ECG Findings: + Other (QRS is normal); no PVCs Additional Comments: Repeat EKG: Normal sinus rhythm, 76 BMP, no ST elevations, no PVCs, normal QRS, no significant change from prior EKG done today. No acute ischemic changes. Repeat EKG #2: Normal sinus rhythm, 75 beats per minute, no ST elevations, no PVCs. Blood Pressure Blood Pressure Findings: Elevated blood pressure Blood Pressure Disposition: Referred to patients primary care provider MDM Narrative I did evaluate the patient as noted above. The patient is presenting with sudden onset of dyspnea. She stated that she felt as if she was going to . She states she felt much better after getting albuterol in the ambulance. She does have a history of COPD. She does smoke 1/2 pack of cigarettes a day. She also complains of intermittent left-sided chest pain. The last time she had the chest pain was yesterday. She stated that she had a negative dobutamine stress test years ago. I looked through her records and apparently she had a catheterization back in 2018. The results were not readily available but she told me that she was told she had 60% occlusion of 1 vessel. IV access was established. The patient was placed on a continuous cardiac catheterization technician. I did order and personally review the patient's 12-lead EKG as described above. Her twelve-lead EKG does not demonstrate any acute ischemia. I did order and person ally reviewed the images of the patient's chest x-ray as described above. Chest x-ray is unremarkable without signs of pneumonia. While in the emergency department the patient developed left-sided chest pain. She describes it as sharp. I did repeat another twelve-lead EKG which per my interpretation shows no acute ischemia. It is unchanged from her initial EKG. The patient was given nitroglycerin paste. I did order and review the patient's blood work as noted in the electronic medical record. She has mild anemia. She has no leukocytosis. Her electrolytes are unremarkable. Troponin is negative. D- dimer is over 900. I did talk to her about her test results and recommended CT scanning of the chest. I did treat her with a DuoNeb here and on reevaluation she has no wheezing on exam. She states she feels better. She initially stated that she was allergic to steroids but when I questioned her further about this she stated that oral steroids make her mean. She was agreeable to IV Solu- Medrol which I gave her. She was also given Benadryl 50 mg IV as she gets hives when she gets IV contrast. I did order CT angiogram of the chest. I did review the images myself as well as the radiology report as described above. There is no evidence of PE. There is no evidence of pneumonia. She does have signs of bronchitis. I did talk to the patient about her test results. I was concerned about possible cardiac disease given her symptoms previously. I did recommend hospitalization. I did discuss the case with the hospitalist and correctional case manager. The hospitalist ordered a second troponin which was elevated at 0.06. I went to reassess the patient again and she stated that she developed chest pain again. She was started on a heparin drip. I did repeat a third twelve-lead EKG which per my interpretation shows no acute ischemia. She was given IV fentanyl and Zofran. I did inform Dr. Warner who will assume care of the patient. Impression & Plan COPD exacerbation, Left-sided chest pain, Arm pain, left, Elevated troponin Discharge Plan Visit Data Chief Complaint: Shortness of Breath/Dyspnea ED Provider: Aureliano Jc Discharge Problem: COPD exacerbation, Left-sided chest pain, Arm pain, left, Elevated troponin Patient Disposition: Being Evaluated by Hospitalist Forms Stand Alone Forms: [facility] Prescriptions Prescriptions: No Action hydrocodone-acetaminophen 5-325 mg tablet 1 tab PO QID PRN (Reason: Pain) RF: 0 sertraline 100 mg tablet 150 mg PO HS RF: 0 omeprazole 40 mg capsule,delayed release(DR/EC) 40 mg PO QAM RF: 0 aspirin 81 mg Tablet,Delayed Release (Dr/Ec) 81 mg PO QAM RF: 0 amitriptyline 10 mg tablet 20 mg PO PM RF: 0 calcium carbonate [Calcium 600] 600 mg calcium (1,500 mg) Tablet 600 mg PO QAM RF: 0 gabapentin 300 mg Capsule 300 mg PO TID RF: 0 cyclobenzaprine 5 mg Tablet 5 mg PO TID PRN (Reason: Muscle Spasm) RF: 0 nitroglycerin 0.4 mg Tablet, Sublingual 0.4 mg sublingual UD 30 Days Qty: 25 RF: 0 atorvastatin 40 mg Tablet 40 mg PO QAM RF: 0 oxybutynin chloride 5 mg tablet extended release 24hr 5 mg PO DAILY PRN (Reason: Pain) RF: 0 Anoro Ellipta 62.5-25 mcg/actuation blister with device 1 ea INHALATION DAILY RF: 0 Referrals Referrals: Richar Arredondo MD [Primary Care Provider] - The scribe's documentation has been prepared under my direction and personally reviewed by me in its entirety. I confirm that the note above accurately reflects all work, treatment, procedures, and medical decision making performed by me.
[2019-09-06] MEDS ORDERED: CYCLOBENZAPRINE HCL 5 MG TAB PO PRN (00:19)
[2019-09-06] MEDS ORDERED: TRAMADOL HCL 50 MG TABLET PO PRN (00:19)
[2019-09-06] MEDS ORDERED: ACETAMINOPHEN 325 MG TAB PO PRN (00:19)
[2019-09-06] MEDS ORDERED: LORazepam 0.25 MG/0.5 ML VIAL IV PRN (00:19)
[2019-09-06] MEDS ORDERED: ALBUT/IPRATROP 3MG/0.5MG NEB 3 ML VIAL NEB PRN (00:19)
[2019-09-06] MEDS ORDERED: MoRPHine SULFATE 4 MG/ML 1 ML CARP\\VIAL IV PRN (00:19)
[2019-09-06] MEDS ORDERED: PROMETHAZINE HCL 12.5 MG in SODIUM CHLORIDE 0.9% 50 ML IV PRN (00:19)
[2019-09-06] MEDS ORDERED: UMECLIDINIUM/VILANTEROL 62.5/25MCG 7 PUFFS/INHALER INH ONE (00:40)
[2019-09-06] MEDS: NICOTINE 14 MG/24 HR PATCH TD SCH ×2 (00:51→08:26)
[2019-09-06] MEDS: LACTATED RINGER'S 1,000 ML IV SCH ×2 (00:53→18:02)
[2019-09-06] MEDS: HYDROCODONE/ACETAMOPHEN 5/325MG TAB PO PRN ×3 (00:53→20:35)
[2019-09-06] MEDS: HEPARIN SODIUM/DEXTROSE 25,000 UNITS/500 ML BAG IV SCH (00:55)
[2019-09-06 04:45] LABS: Basophils # (auto) 0.04 K/uL (0-0.2); Basophils % (auto) 0.4 %; Eosinophils # (auto) 0.01 K/uL (0-0.5); Eosinophils % (auto) 0.1 %; Hematocrit (blood only) 34.8 % (37-47); Hemoglobin 11.5 g/dL (12.0-16.0); Immature Granulocytes # (auto) 0.05 K/uL (0.00-0.02); Immature Granulocytes % (auto) 0.5 %; Lymphocytes # (auto) 1.37 K/uL (1.2-3.4); Lymphocytes % (auto) 13.8 %; Mean Corpuscular Hemoglobin 30.3 pg (25-34); Mean Corpuscular Volume 91.8 fL (80-100); Mean Platelet Volume 10.2 fL (7.4-10.4); Monocytes # (auto) 0.07 K/uL (0.11-0.59); Monocytes % (auto) 0.7 %; Neutrophils # (auto) 8.37 K/uL (1.4-6.5); Neutrophils % (auto) 84.5 %; Platelet Count 225 K/uL (130-400); RDW Coefficient of Variation 13.4 % (11.5-14.5); RDW Standard Deviation 44.7 fL (36.4-46.3); Red Blood Count 3.79 M/uL (4.2-5.4); White Blood Count 9.91 K/uL (4.8-10.8)
[2019-09-06 05:05] LABS: Partial Thromboplastin Ratio 1.7
[2019-09-06 05:08] LABS: Partial Thromboplastin Time 45.7 Seconds (21.0-31.0)
[2019-09-06 05:12] LABS: BUN Creatinine Ratio 17.1 (10-20); Calcium 8.7 mg/dl (8.5-10.1); Creatinine Clr Calc Pharmacy 50.2 ml/min; Est GFR (African American) 69.9; Est GFR (Non-African American) 60.3; Potassium 4.4 mmol/L (3.5-5.1)
[2019-09-06] MEDS ORDERED: HEPARIN IV BOLUS 2,000 UNITS in SYRINGE 0 ML IV ONE (06:00)
[2019-09-06] MEDS: GABAPENTIN 300 MG CAP PO SCH ×3 (08:27→19:59)
[2019-09-06] MEDS: ATORVASTATIN 40 MG TAB PO SCH (08:27)
[2019-09-06] MEDS: PANTOprazole 40 MG TAB PO SCH (08:27)
[2019-09-06] MEDS: UMECLIDINIUM/VILANTEROL 62.5/25MCG 7 PUFFS/INHALER INH SCH (08:27)
[2019-09-06] MEDS: ASPIRIN 81 MG ECTAB PO SCH (08:27)
[2019-09-06] MEDS: METOPROLOL TARTRATE 25 MG TAB PO SCH ×2 (08:27→19:58)
--- NOTE | 2019-09-06 11:27 | Electrocardiogram Report ---
Test Reason : Blood Pressure : / mmHG Vent. Rate : 070 BPM Atrial Rate : 070 BPM P-R Int : 162 ms QRS Dur : 086 ms QT Int : 434 ms P-R-T Axes : 054 -16 009 degrees QTc Int : 468 ms Normal sinus rhythm Normal ECG When compared with ECG of 05-SEP-2019 23:16, R wave progression improved Otherwise no significant change Confirmed by Hua Guillen ([id number]) on 09/06/2019 11:27:23 AM Referred By: REFERRED SELF Confirmed By:Hua Giullen
--- NOTE | 2019-09-06 11:27 | Electrocardiogram Report ---
Test Reason : Blood Pressure : / mmHG Vent. Rate : 075 BPM Atrial Rate : 075 BPM P-R Int : 156 ms QRS Dur : 088 ms QT Int : 396 ms P-R-T Axes : 054 -14 033 degrees QTc Int : 442 ms Normal sinus rhythm Poor R wave progression, consider anterior AR vs. lead placement vs. LVH Abnormal ECG When compared with ECG of 28-FEB-2019 12:11, Loss of voltage in lead V3 (may be lead placment related) Otherwise no significant change Confirmed by Hua Guileln ([id number]) on 09/06/2019 11:26:39 AM Referred By: REFERRED SELF Confirmed By:Hua Guillen
--- NOTE | 2019-09-06 11:30 | Electrocardiogram Report ---
Test Reason : Blood Pressure : / mmHG Vent. Rate : 076 BPM Atrial Rate : 076 BPM P-R Int : 160 ms QRS Dur : 082 ms QT Int : 396 ms P-R-T Axes : 045 -20 006 degrees QTc Int : 445 ms Normal sinus rhythm Poor R wave progression, consider anterior ME vs. lead placement vs. LVH Abnormal ECG When compared with ECG of 05-SEP-2019 18:13, No significant change was found Confirmed by Hua Guillen ([id number]) on 09/06/2019 11:29:45 AM Referred By: REFERRED SELF Confirmed By:Hua Guillen
--- NOTE | 2019-09-06 11:34 | Electrocardiogram Report ---
Test Reason : Blood Pressure : / mmHG Vent. Rate : 075 BPM Atrial Rate : 075 BPM P-R Int : 156 ms QRS Dur : 086 ms QT Int : 398 ms P-R-T Axes : 047 -19 007 degrees QTc Int : 444 ms Normal sinus rhythm Poor R wave progression, consider anterior OR vs. lead placement vs. LVH Abnormal ECG When compared with ECG of 05-SEP-2019 20:19, No significant change was found Confirmed by Hua Guillen ([id number]) on 09/06/2019 11:33:57 AM Referred By: REFERRED SELF Confirmed By:Hua Guillen
--- NOTE | 2019-09-06 12:32 | Cardiology Consultation ---
Date of Consultation September 06, 2019 Assessment & Plan (1) ACS (acute coronary syndrome): Despite the absence of ischemic changes on serial ECGs, the patient had borderline obstructive coronary disease in the past, is an ongoing smoker with a markedly elevated LDL, and had dramatic symptoms yesterday followed by a minor troponin elevation in a peak and decay pattern. Given the lack of an alternative explanation for her dramatic symptoms and troponin elevation (chest CT ruled out pulmonary embolism), would presume acute coronary syndrome. Agree with continuing aspirin and initiating heparin. Will discuss potential additional antiplatelet therapy with interventionalist. Would recommend proceeding to cardiac catheterization, since stress testing would be inappropriate in the acute phase of a coronary syndrome. Discussed this with the patient, she is agreeable. Although this patient has had atypical symptoms for some time, the current circumstances are different (more severe symptoms, her first troponin elevation) and warrant aggressive work-up. Case discussed with Dr. Recio (2) Nonobstructive atherosclerosis of coronary artery: Previous findings as noted under past history. Most notably, 40 to 50% mid RCA lesion. (3) COPD exacerbation: Transient component of breathlessness and dyspnea was of very abrupt onset, not typical for a COPD exacerbation. She had no respiratory difficulties this morning. There is some questionable history of diastolic dysfunction related heart failure, however she is not on a diuretic and appears euvolemic currently. (4) Elevated troponin: See above. History of Present Illness Reason for Consultation: Chest pain/troponin elevation Requesting Physician: Taina Recio DO Attending Physician: Taina Recio DO History of Present Illness 69-year-old woman with COPD and previously nonobstructive coronary artery disease (see 2018 cath results under PMH) who still smokes cigarettes, presented to the ER last evening after abrupt onset of extreme dyspnea followed by left anterior chest pain which was severe. She has a long history of atypical chest pain which is generally not severe, but which did lead to further testing including catheterization [place] [address] Isabel. Although she has had chest pain symptoms off and on, yesterday her abrupt onset of dyspnea with no prodrome (she felt perfectly well minutes before), followed by left anterior chest pain after receiving nebulizer treatments in the ambulance was dramatically more severe than usual. Serial ECGs have been unremarkable, but she did have a minor peak and decay troponin elevation overnight. Her severe chest pain resolved, but she notes a residual low level left anterior chest discomfort. No other symptoms presently. Allergies Allergy/AdvReac Type Severity Reaction Status Date / Time latex Allergy Mild RASH Verified 09/05/19 18:56 Iodinated Contrast Media Allergy Unknown . Verified 09/05/19 18:56 Penicillins Allergy Unknown Unknown Verified 09/05/19 18:56 varenicline AdvReac Severe NAUSEA Verified 09/05/19 18:56 benzalkonium chloride AdvReac Intermediate VERTIGO Verified 09/05/19 18:56 ibuprofen AdvReac Intermediate ACID REFLEX Verified 09/05/19 18:56 ofloxacin AdvReac Intermediate VERTIGO Verified 09/05/19 18:56 Corticosteroids AdvReac Unknown jittery Verified 09/05/19 18:56 (Glucocorticoids) and hyper DM-APAP-CPM Allergy Severe ANAPHYLAXIS Uncoded 09/05/19 18:56 Home Medications Home Medications Medication Instructions Recorded Confirmed Type amitriptyline 20 mg PO PM 09/20/18 09/05/19 History aspirin 81 mg PO QAM 09/20/18 09/05/19 History hydrocodone-acetaminophen 1 tab PO QID PRN 09/20/18 09/05/19 History omeprazole 40 mg PO QAM 09/20/18 09/05/19 History sertraline 150 mg PO HS 09/20/18 09/05/19 History calcium carbonate [Calcium 600] 600 mg PO QAM 01/02/19 09/05/19 History cyclobenzaprine 5 mg PO TID PRN 01/02/19 09/05/19 History gabapentin 300 mg PO TID 01/02/19 09/05/19 History nitroglycerin 0.4 mg SUBLINGUAL UD 30 Days #25 01/03/19 09/05/19 Rx tab atorvastatin 40 mg PO QAM 02/28/19 09/05/19 History oxybutynin chloride 5 mg PO DAILY PRN 09/05/19 09/05/19 History umeclidinium-vilanterol [Anoro 1 ea INHALATION DAILY 09/05/19 09/05/19 History Ellipta] Patient History Medical History Anxiety (Chronic) COPD (chronic obstructive pulmonary disease) (Chronic) Depression (Chronic) Diastolic dysfunction (Chronic) GERD (gastroesophageal reflux disease) (Chronic) Nocturnal hypoxia (Chronic) reported secondary to COPD. Pt not on home oxygen HS secondary to reported insurance issues Nonobstructive atherosclerosis of coronary artery (2018) LAD and circumflex free of major disease. RCA with 40 to 50% mid right coronary stenosis and 40% stenosis at the takeoff of the PDA. Osteoarthritis (Chronic) Osteoporosis (Chronic) Palpitation (Resolved) Tobacco use (Chronic) Surgical History History of cholecystectomy (Chronic) History of hysterectomy (Chronic) Social History Preferred Language: Syriac Communication Ability: Effective Dicer Operator Required: No Beliefs That Will Affect Care: None Current Living Situation: Alone Other Information That Helps Us Care for You: No Feels Safe at Home: Yes Safety Concerns: Feels Safe At This Time Smoking Status: Current every day smoker Tobacco Type: cigarettes ; Cigarettes Per Day: 10 ; Do You Dip or Chew Tobacco: No ; Hx Alcohol Use: No Hx Substance Use: No Review of Systems Constitutional: + fatigue; no fever, no chills, no weight loss and no weight gain Eyes: no problem reported Ear, Nose, Mouth, Throat: no problem reported Respiratory: no cough Cardiovascular: as per Subjective / HPI Gastrointestinal: no abdominal pain and no change in stools Genitourinary: no problem reported Musculoskeletal: no myalgia Integumentary: no rash and no new lesions Neurologic: no falls and no syncope Psychiatric: no problem reported Hematologic / Lymphatic: no easy bleeding and no easy bruising Physical Exam Physical Exam: No distress. Mildly hypertensive (163/58 mmHg). Pulse 60s and regular. Respirations 20 but unlabored. Skin: no ecchymoses or generalized lesions. HEENT: unremarkable. Neck: Jugular venous pulse at the clavicle, no carotid bruits. Lungs: Moderately decreased breath sounds, no obvious wheezes or crackles. No accessory muscle use. Cardiac: regular rhythm with 2/6 right upper sternal border systolic ejection murmur which is nonradiating. No diastolic murmur or gallop. Abdomen benign. Extremities: no edema, pulses brisk. Neurologic: normal affect, nonfocal. Results & Data Vital Signs (Past 12 Hours) Vital Signs Temp Pulse Resp BP Pulse Ox 09/06/19 08:00 97.9 F 67 23 163/58 H 94 09/06/19 06:00 62 15 147/63 H 94 09/06/19 04:01 69 19 97 09/06/19 04:00 73 18 173/70 H 96 09/06/19 03:30 66 20 96 Laboratory Results 02/28/19 09/05/19 09/05/19 14:14 18:05 22:11 Creatinine Troponin I < 0.015 < 0.015 0.062 H* Cholesterol LDL Cholesterol, Calc 09/06/19 09/06/19 04:17 04:17 Creatinine 0.96 Troponin I 0.034 Cholesterol 320 H LDL Cholesterol, Calc [address] showed no evidence of pulmonary embolism. Bibasilar opacities consistent with atelectasis noted. Mild emphysema. Carotid study several years ago showed only atherosclerosis without stenosis. ECG Additional Comments: Serial ECGs (4 total) showed sinus rhythm with poor R wave progression but no acute ST abnormalities. PG Care Time/CCT Total # of Minutes Spent Total Time Spent with Patient: Total time spent is greater than 50% in coordination of care (as documented) at patient's floor/unit and/or counseling patient:
[2019-09-06 12:44] LABS: Partial Thromboplastin Ratio 2.4
[2019-09-06 12:51] LABS: Partial Thromboplastin Time 65.1 Seconds (21.0-31.0)
[2019-09-06] MEDS ORDERED: DiphenhydrAMINE HCL 50 MG/ML VIAL ONE (15:47)
[2019-09-06] MEDS ORDERED: raNITIdine HCl 25 MG/ML VIAL IV ONE (15:47)
[2019-09-06] MEDS ORDERED: methylPREDNISolone 125 MG/2 ML VIAL ONE (15:47)
[2019-09-06] MEDS ORDERED: fentaNYL citrate 100 MCG/2 ML VIAL ONE (16:11)
[2019-09-06] MEDS ORDERED: HEPARIN (PORCINE) 1000 UNIT/ML 10 ML (CATH LAB USE ONLY) ONE (16:11)
[2019-09-06] MEDS ORDERED: MIDAZOLAM HCL 1 MG/ML 2ML VIAL ONE (16:11)
[2019-09-06] MEDS ORDERED: NiCARDipine HCL INJ 2.5 MG/ML 10 ML AMP ONE (16:11)
[2019-09-06] MEDS ORDERED: NITROGLYCERIN/D5W 100MCG/ML 20ML SYR ONE (16:12)
--- NOTE | 2019-09-06 17:03 | Post Anesthesia Assessment ---
Date of Service September 06, 2019 Post Sedation Assessment Vital Signs Temp Pulse Pulse Resp BP BP Pulse Ox 09/06/19 15:41 70 17 153/63 H 93 09/06/19 12:01 68 19 09/06/19 12:00 98.2 F 70 21 119/63 97 09/06/19 08:00 97.9 F 67 23 163/58 H 94 09/06/19 06:00 62 15 147/63 H 94 09/06/19 04:01 69 19 97 09/06/19 04:00 73 18 173/70 H 96 09/06/19 03:30 66 20 96 09/06/19 00:30 74 21 97 09/06/19 00:20 97.9 F 72 73 17 159/64 H 159/64 H 96 09/06/19 00:19 74 09/06/19 00:18 72 22 161/67 H 97 09/06/19 00:16 73 19 96 09/06/19 00:15 74 20 170/70 H 96 09/06/19 00:14 76 19 95 09/05/19 23:47 77 78 22 160/73 H 160/73 H 96 09/05/19 23:45 77 20 96 09/05/19 23:30 76 14 163/72 H 94 09/05/19 23:18 76 76 32 H 167/75 H 167/75 H 94 09/05/19 23:15 77 20 94 09/05/19 23:01 76 24 93 09/05/19 23:00 76 24 145/67 H 94 09/05/19 22:45 72 20 92 09/05/19 22:31 70 19 92 09/05/19 22:30 71 18 148/83 H 93 09/05/19 22:28 75 20 147/75 H 93 09/05/19 22:15 74 22 94 09/05/19 22:08 73 18 147/75 H 93 09/05/19 22:00 72 19 93 09/05/19 21:45 72 20 93 09/05/19 21:41 74 18 137/66 94 09/05/19 21:40 75 22 95 09/05/19 21:28 75 13 137/66 09/05/19 21:00 81 22 93 09/05/19 20:45 77 20 09/05/19 20:30 77 18 09/05/19 20:15 79 18 93 09/05/19 20:00 79 19 91 09/05/19 19:55 80 17 127/72 92 09/05/19 19:54 80 17 127/72 93 09/05/19 19:45 79 19 91 09/05/19 19:30 81 23 91 09/05/19 19:15 81 28 H 93 09/05/19 19:00 76 23 99 09/05/19 18:53 74 21 93 09/05/19 18:45 75 17 92 09/05/19 18:42 77 14 92 09/05/19 18:33 90 09/05/19 18:19 98.2 F 77 25 H 169/66 H 95 09/05/19 18:14 74 23 169/66 H 90 Recovery Score Activity: Moves 4 extremities Respiration: Deep Breath/Cough Circulation: +/-20% PreAnes Value Consciousness: Fully Awake Oxygen Saturation: O2 needed for >90% Discharge Sedation Level of Care: Fast Track Phase II Post Sedation Plan On clinical assessment, the patient appears to have tolerated the sedation without complications. Patient is recovering as anticipated. Patient will continue to be monitored by nursing and may be discharged when sedation discharge criteria are met per below protocol. Upon Completions of procedure up to 15 minutes continue every 5 minute vital signs and the P.A.R. score; then discharge to a Phase I or Fast Track to Phase II per the following guidelines: * Discharge Patient to appropriate Phase II area if PAR is 8 or greater or return to pre- procedure baseline. The post - procedure orders will be as directed. * If PAR score is less than 8 or not return to pre-procedure baseline then patient will follow Phase I monitoring till PAR is reached for Phase II. The Phase I may be done in procedure room or may call to secure a Phase I area. * If naloxone or flumazenil are used for reversal, hold in Phase I for continued monitoring from when last reversal dose was given for a minimum of 60 minutes or longer pending the nurse and/or physician discretion of patient condition before discharge to Phase II. Please call the Sedation Physician to re-evaluate and complete post-note for discharge to Phase II area. Do NOT discharge from procedure sedation or Phase 1 until post- sedation evaluation note is complete by procedure /sedation MD Sedation Discharge Instructions to be given to the patient at discharge to home.
--- NOTE | 2019-09-06 17:05 | Post Operative Brief Note ---
Cardiology Brief Post Op Date of Surgery September 06, 2019 Pre & Post Diagnosis Operation Date: 09/06/19 13:00 <No data on this case meets the specified criteria> Procedure -- Advertising Associate Cas Roland MD Snuff Blender Ezekiel Estimated Blood Loss 10 Findings Consistent with Post-Op Diagnosis Minimal non-obstructive coronary artery disease Disposition Disposition: Surgical ICU
[2019-09-06] MEDS ORDERED: SODIUM CHLORIDE 0.9% 1000ML 1,000 ML IV SCH (17:15)
--- NOTE | 2019-09-06 17:49 | Hospitalist Progress Note ---
Date of Service September 06, 2019 Assessment & Plan (1) NSTEMI (non-ST elevated myocardial infarction): Mild bump in troponin trended overnight with worsening dramatic change in chest pain. She is an active smoker raising her risk of CAD. She already has known nonobstructive CAD from a prior cath in the past. Continue medical management with a heparin drip, aspirin, Lipitor and Lopressor. She is going for heart catheterization later today. (2) Tobacco use: Using NicoDerm patch now. Advised to quit smoking. Contemplative phase. (3) Depression: Stable, continue Elavil and sertraline per home regimen. (4) COPD (chronic obstructive pulmonary disease): Stable, continue home inhalers. Advised to quit smoking. (5) DVT prophylaxis: Heparin drip Full code Dispo-pending results of heart catheterization Taina Recio DO [facility] Hospitalist Subjective 69-year-old female here for chest pain with worsening intensity over the past few weeks. She has a Nitropaste on her chest and does not think this is helped much with her pain symptoms. Troponin enzymes were negative x2 and then bumped mildly. She is an active smoker increasing her risk for CAD. She had a history of nonobstructive CAD in the past on prior cath. Cardiology feels a repeat cath is in order today. Review of Systems Review of Systems: All systems reviewed & are unremarkable except as noted in HPI & below Physical Exam Physical Exam: CONSTITUTIONAL: WNWD, vitals as above, generally well- appearing EYES: normal conjunctivae, no scleral icterus ENT: mucous membranes are dry RESPIRATORY: clear to auscultation bilaterally, no crackles, rales or wheezes, normal respiratory effort CARDIOVASCULAR: regular rate and rhythm, S1 and 2 heard without murmurs, gallops or rubs, no JVD, no peripheral edema CHEST: inspection of chest was normal GASTROINTESTINAL: soft, nontender, nondistended MUSCULOSKELETAL: strength 5/5 throughout, head is normocephalic and atraumatic, normal palpation of chest wall without tenderness SKIN: warm and dry NEUROLOGIC: CN 2-12 grossly intact, no sensory deficit, normal cognition, nor mal speech, no gross focal deficits. PSYCHIATRIC: alert cooperative and oriented to person, place and time. Results & Data Vital Signs (Past 12 Hours) Vital Signs Temp Pulse Pulse Resp BP BP Pulse Ox 09/06/19 15:41 70 17 153/63 H 93 09/06/19 12:01 68 19 09/06/19 12:00 36.8 C 70 21 119/63 97 09/06/19 08:00 36.6 C 67 23 163/58 H 94 09/06/19 06:00 62 15 147/63 H 94 Laboratory Results Short CBC 09/05/19 09/06/19 Range/Units 18:05 04:17 WBC 9.45 9.91 (4.8-10.8) K/uL Hgb 11.9 L 11.5 L (12.0-16.0) g/dL Hct 36.0 L 34.8 L (37-47) % Plt Count 245 225 (130-400) K/uL BMP 09/05/19 09/06/19 18:05 04:17 Sodium 138 136 Potassium 3.9 4.4 Chloride 109 H 107 Carbon Dioxide 27 26 BUN 14 16 Creatinine 1.06 0.96 Glucose 121 H 175 H Calcium 9.1 8.7 Cardiac Enzymes 09/05/19 09/05/19 09/06/19 Range/Units 18:05 22:11 04:17 Troponin I < 0.015 0.062 H* 0.034 (0-0.045) ng/ml Liver Function 09/05/19 Range/Units 18:05 Total Bilirubin 0.2 (0.2-1) mg/dl AST 21 (15-37) U/L ALT 24 (12-78) U/L Alkaline Phosphatase 110 (45-117) U/L Albumin 3.5 (3.4-5.0) gm/dl Urine 09/05/19 Range/Units 21:41 Urine Color Yellow Urine Appearance Clear (Clear) Urine pH 6.0 (4.5-7.5) Ur Specific [address] 1.019 (1.000-1.030) Urine Protein Negative (Negative) Urine Glucose (UA) Negative (Negative) Medications Administered Current Inpatient Medications Acetaminophen (Tylenol) 650 mg PO Q4H PRN PRN Reason: Pain or Fever Stop: 10/06/19 00:18 Last Admin: 09/06/19 04:42 Dose: 650 mg Documented by: Hydrocodone Bitart/Acetaminophen (Thompson 5/325) 1 tab PO QID PRN PRN Reason: Pain Stop: 09/20/19 00:42 Last Admin: 09/06/19 08:39 Dose: 1 tab Documented by: Albuterol (Duoneb) 3 ml NEB Q2H PRN PRN Reason: Wheezing Stop: 10/06/19 00:18 Amitriptyline HCl (Elavil) 20 mg PO PM [facility] Stop: 10/06/19 20:59 Aspirin (Ecotrin Ectab) 81 mg PO [facility] Stop: 10/06/19 08:59 Last Admin: 09/06/19 08:27 Dose: 81 mg Documented by: Atorvastatin Calcium (Lipitor) 40 mg PO [facility] Stop: 10/06/19 08:59 Last Admin: 09/06/19 08:27 Dose: 40 mg Documented by: Cyclobenzaprine HCl (Flexeril) 5 mg PO TID PRN PRN Reason: Muscle Spasm Stop: 10/06/19 00:18 Fentanyl Citrate (Fentanyl Citrate) 50 mcg IV Q15M PRN PRN Reason: Pain Stop: 09/19/19 23:18 Last Admin: 09/05/19 23:23 Dose: 50 mcg Documented by: Gabapentin (Neurontin) 300 mg PO TID [facility] Stop: 10/06/19 08:59 Last Admin: 09/06/19 13:58 Dose: 300 mg Documented by: Heparin Sodium/Dextrose (Heparin Sodium/Dextrose) 25,000 units in 500 mls @ 22 mls/hr IV .[id number] [facility]; Protocol Stop: 10/05/19 22:59 Last Titration: 09/06/19 15:19 Dose: 1,100 units/hr, 22 mls/hr Documented by: Lorazepam (Ativan) 0.25 mg in 0.5 mls @ 0.5 mls/min IV Q4H PRN PRN Reason: Anxiety Stop: 10/06/19 00:18 Lactated Ringer's (Lr) 1,000 mls @ 60 mls/hr IV .[id number] [facility] Stop: 10/06/19 00:18 Last Infusion: 09/06/19 17:41 Dose: Infused Documented by: Promethazine HCl 12.5 mg/ (Sodium Chloride) 50.5 mls @ 202 mls/hr IV Q6H PRN PRN Reason: Nausea And Vomiting Stop: 10/06/19 00:18 Sodium Chloride (Nss 1000ml) 1,000 mls @ 75 mls/hr IV .[id number] [facility] Stop: 09/06/19 20:34 Metoprolol Tartrate (Lopressor) 12.5 mg PO BID [facility] Stop: 10/06/19 08:59 Last Admin: 09/06/19 08:27 Dose: 12.5 mg Documented by: Miscellaneous (Remove Nicoderm Patch) 1 ea N/A DAILY@0859 [facility] Stop: 10/06/19 08:58 Last Admin: 09/06/19 08:26 Dose: 1 ea Documented by: Morphine Sulfate (Morphine Sulfate) 4 mg IV Q4H PRN PRN Reason: Pain Stop: 09/20/19 00:18 Nicotine (Nicoderm Cq) 14 mg TD QAM [facility] Stop: 10/06/19 00:18 Last Admin: 09/06/19 08:26 Dose: 14 mg Documented by: Pantoprazole Sodium (Protonix) 40 mg PO QAM [facility] Stop: 10/06/19 08:59 Last Admin: 09/06/19 08:27 Dose: 40 mg Documented by: Sertraline HCl (Zoloft) 150 mg PO HS [facility] Stop: 10/06/19 20:59 Umeclidinium/Vilanterol (Anoro Ellipta 62.5/25 Mcg Inh) 1 puffs INH DAILY [facility] Stop: 10/06/19 08:59 Last Admin: 09/06/19 08:27 Dose: 1 puffs Documented by:
[2019-09-06] MEDS: AMITRIPTYLINE HCL 10 MG TAB PO SCH (19:58)
[2019-09-06] MEDS: SERTRALINE HCL 50 MG TABLET PO SCH (19:59)
--- NOTE | 2019-09-06 21:36 | Cardiac Catheterization ---
[facility] Data: Supervisor [employer] Cardiac Status Clinical evaluation leading to the procedure CAD Presenation: Non STEMI Anginal Classification: CCS IV Heart Failure: No Cardiogenic Shock within 24 Hours: No Cardiac Arrest within 24 Hours: No Imaging Studies Past 6 Months: Yes Stress Studies Past 6 Months: No Diagnostic Physicians Name: Cas Roland MD Status: Elective Closure Device Percutaneous Entry Location: Radial Closure Device: Radial Band Recommendations: Medical Therapy and/or Counseling Intraprocedure Events Significant Disection: No Perforation: No Cardiac Cath Procedure Full Procedure Date September 06, 2019 Pre-Procedure Diagnosis Pre-Procedure Diagnosis: Non STEMI AUC Score AUC Score: 7 Post-Procedure Diagnosis Post-Procedure Diagnosis: Moderate CAD Procedure(s) Performed Procedure(s) Performed: Coronary Angiography and Left Heart Cath Dramatic Coach Cas Roland MD Estimated Blood Loss Estimated Blood Loss: 5 Medication(s) Medication(s): Fentanyl, Heparin, Nicardipine, Nitroglycerin and Versed Summary of Findings Indication: Suspected ACS Access: 6 Fr slender right radial artery Catheters: [place] Findings: LM -angiographically normal LAD -medium caliber vessel, 40% mid segment disease after takeoff of first diagonal. Mid to distal LAD small and tapers prior to apex. First diagonal with 20% ostial disease. Circumflex -new caliber vessel, 20 to 30% mid segment disease. RCA -large caliber vessel, dominant, 40% proximal disease, 20 to 30% mid segment disease, distal luminal irregularities. 30-40 % ostial PDA. Arterial Closure: TR band Summary: 1. Mild to moderate nonobstructive coronary artery disease -40% mid LAD disease 40% proximal RCA 2. Normal intracardiac filling pressure Recommendations: No high risk coronary artery disease. Can discontinue heparin Continue ASCVD risk factor modification Hemodynamics Rest Ao:: -- Final Ao: -- LV: -- Recommendations Recommendations: Medical Therapy and/or Counseling Specimens Specimens: None Radiation Exposure (mGy) -- Contrast (mls) -- Drains Drains: None Anesthesia Moderate Procedural Complication(s) None Disposition ICU I attest to the content of the Intraoperative Record and any orders documented therein. Any exceptions are noted below. [facility] Card Cath Procedure Codes Cardiac Catheterization Procedure 1: Cardiovascular Cath Procedures: 27174 Coronaries and LHC (+/-LV) Moderate Sedation Procedure 1: Sedation/Anesthesia: 75580 Mod Sedation by the same physician;Init15 Min Child Age 5 & Up PG Care Time/CCT Total # of Minutes Spent Total Time Spent with Patient: Total time spent is greater than 50% in coordination of care (as documented) at patient's floor/unit and/or counseling patient:
[2019-09-07 07:18] LABS: Hematocrit (blood only) 33.7 % (37-47); Hemoglobin 11.2 g/dL (12.0-16.0); Mean Corpuscular Hemoglobin 30.5 pg (25-34); Mean Corpuscular Hgb Conc 33.2 g/dL (32-36); Mean Corpuscular Volume 91.8 fL (80-100); Mean Platelet Volume 10.1 fL (7.4-10.4); Platelet Count 250 K/uL (130-400); RDW Coefficient of Variation 13.5 % (11.5-14.5); RDW Standard Deviation 44.9 fL (36.4-46.3); Red Blood Count 3.67 M/uL (4.2-5.4); White Blood Count 16.36 K/uL (4.8-10.8)
[2019-09-07 07:52] LABS: BUN Creatinine Ratio 23.3 (10-20); Calcium 9.1 mg/dl (8.5-10.1); Creatinine Clr Calc Pharmacy 50.5 ml/min; Est GFR (African American) 70.8; Est GFR (Non-African American) 61.1; Potassium 4.3 mmol/L (3.5-5.1)
[2019-09-07] MEDS: UMECLIDINIUM/VILANTEROL 62.5/25MCG 7 PUFFS/INHALER INH SCH (09:26)
[2019-09-07] MEDS: METOPROLOL TARTRATE 25 MG TAB PO SCH ×2 (09:26→20:31)
[2019-09-07] MEDS: ATORVASTATIN 40 MG TAB PO SCH (09:26)
[2019-09-07] MEDS: NICOTINE 14 MG/24 HR PATCH TD SCH (09:26)
[2019-09-07] MEDS: PANTOprazole 40 MG TAB PO SCH (09:27)
[2019-09-07] MEDS: GABAPENTIN 300 MG CAP PO SCH ×3 (09:27→20:32)
[2019-09-07] MEDS: ASPIRIN 81 MG ECTAB PO SCH (09:27)
--- NOTE | 2019-09-07 11:54 | Hospitalist Progress Note ---
Date of Service September 07, 2019 Assessment & Plan (1) NSTEMI (non-ST elevated myocardial infarction): Cardiac catheterization overnight revealed nonobstructive CAD. Continue aspirin, Lipitor, Lopressor. We will also add diltiazem 120 mg every morning tomorrow as the patient is experiencing some flushing of uncertain etiology today. This may help with presumed coronary spasm. We will also suggest strongly she quit smoking. She is now chest pain-free and has no shortness of breath. No arrhythmias were seen on telemetry overnight. (2) Tobacco use: Using NicoDerm patch now. Advised to quit smoking. Contemplative phase. (3) Depression: Stable, continue Elavil and sertraline per home regimen. (4) COPD (chronic obstructive pulmonary disease): Stable, continue home inhalers. Advised to quit smoking. (5) Leukocytosis: Likely a stress response. No signs of infection at this time. Will monitor closely for any evidence of fever. Will trend CBC in a.m. (6) DVT prophylaxis: Lovenox Full code Dispo-to home when medically stable. Taina Recio DO [facility] Hospitalist Subjective Nonobstructive CAD on cath yesterday. Uncertain what triggered the event but possibly could have been coronary spasm as she is a smoker. Per cardiology may consider a long-acting calcium channel randi such as diltiazem 120 mg daily. The patient reports resolution of chest pain but had some nausea with flushing this morning of uncertain etiology. Her nausea resolved spontaneously and she was able to tolerate food however her flushing continued. She later developed a back spasm which is continuing her need for hospitalization. Review of Systems Review of Systems: All systems reviewed & are unremarkable except as noted in HPI & below Physical Exam Physical Exam: CONSTITUTIONAL: WNWD, vitals as above, generally well- appearing EYES: normal conjunctivae, no scleral icterus ENT: mucous membranes are dry RESPIRATORY: clear to auscultation bilaterally, no crackles, rales or wheezes, normal respiratory effort CARDIOVASCULAR: regular rate and rhythm, S1 and 2 heard without murmurs, gallops or rubs, no JVD, no peripheral edema CHEST: inspection of chest was normal GASTROINTESTINAL: soft, nontender, nondistended MUSCULOSKELETAL: strength 5/5 throughout, head is normocephalic and atraumatic, normal palpation of chest wall without tenderness SKIN: warm and dry NEUROLOGIC: CN 2-12 grossly intact, no sensory deficit, normal cognition, normal speech, no gross focal deficits. PSYCHIATRIC: alert cooperative and oriented to person, place and time. Results & Data Vital Signs (Past 12 Hours) Vital Signs Temp Pulse Pulse Resp BP Pulse Ox 09/07/19 11:24 36.5 C 67 20 149/72 H 94 09/07/19 09:45 60 09/07/19 06:57 36.6 C 66 20 150/66 H 98 09/07/19 04:09 36.8 C 69 18 126/80 96 Laboratory Results Short CBC 09/07/19 Range/Units 06:37 WBC 16.36 H (4.8-10.8) K/uL Hgb 11.2 L (12.0-16.0) g/dL Hct 33.7 L (37-47) % Plt Count 250 (130-400) K/uL BMP 09/07/19 06:37 Sodium 139 Potassium 4.3 Chloride 107 Carbon Dioxide 27 BUN 22 H Creatinine 0.95 Glucose 132 H Calcium 9.1 Medications Administered Current Inpatient Medications Acetaminophen (Tylenol) 650 mg PO Q4H PRN PRN Reason: Pain or Fever Stop: 10/06/19 00:18 Last Admin: 09/06/19 04:42 Dose: 650 mg Documented by: Hydrocodone Bitart/Acetaminophen ([place] 5/325) 1 tab PO QID PRN PRN Reason: Pain Stop: 09/20/19 00:42 Last Admin: 09/06/19 20:35 Dose: 1 tab Documented by: Albuterol (Duoneb) 3 ml NEB Q2H PRN PRN Reason: Wheezing Stop: 10/06/19 00:18 Amitriptyline HCl (Elavil) 20 mg PO PM [facility] Stop: 10/06/19 20:59 Last Admin: 09/06/19 19:58 Dose: 20 mg Documented by: Aspirin (Ecotrin Ectab) 81 mg PO QAM [facility] Stop: 10/06/19 08:59 Last Admin: 09/07/19 09:27 Dose: 81 mg Documented by: Atorvastatin Calcium (Lipitor) [facility] [place] Stop: 10/06/19 08:59 Last Admin: 09/07/19 09:26 Dose: 40 mg Documented by: Cyclobenzaprine HCl (Flexeril) 5 mg PO TID PRN PRN Reason: Muscle Spasm Stop: 10/06/19 00:18 Fentanyl Citrate (Fentanyl Citrate) 50 mcg IV Q15M PRN PRN Reason: Pain Stop: 09/19/19 23:18 Last Admin: 09/05/19 23:23 Dose: 50 mcg Documented by: Gabapentin (Neurontin) 300 mg PO TID [facility] Stop: 10/06/19 08:59 Last Admin: 09/07/19 09:27 Dose: 300 mg Documented by: Lorazepam (Ativan) 0.25 mg in 0.5 mls @ 0.5 mls/min IV Q4H PRN PRN Reason: Anxiety Stop: 10/06/19 00:18 Promethazine HCl 12.5 mg/ (Sodium Chloride) 50.5 mls @ 202 mls/hr IV Q6H PRN PRN Reason: Nausea And Vomiting Stop: 10/06/19 00:18 Metoprolol Tartrate (Lopressor) 12.5 mg PO BID [facility] Stop: 10/06/19 08:59 Last Admin: 09/07/19 09:26 Dose: 12.5 mg Documented by: Miscellaneous (Remove Nicoderm Patch) 1 ea N/A DAILY@0859 [facility] Stop: 10/06/19 08:58 Last Admin: 09/07/19 09:27 Dose: 1 ea Documented by: Morphine Sulfate (Morphine Sulfate) 4 mg IV Q4H PRN PRN Reason: Pain Stop: 09/20/19 00:18 Nicotine (Nicoderm Cq) 14 mg TD QAM [facility] Stop: 10/06/19 00:18 Last Admin: 09/07/19 09:26 Dose: 14 mg Documented by: Pantoprazole Sodium (Protonix) 40 mg PO QAM [facility] Stop: 10/06/19 08:59 Last Admin: 09/07/19 09:27 Dose: 40 mg Documented by: Sertraline HCl (Zoloft) 150 mg PO HS [facility] Stop: 10/06/19 20:59 Last Admin: 09/06/19 19:59 Dose: 150 mg Documented by: Umeclidinium/Vilanterol (Anoro Ellipta 62.5/25 Mcg Inh) 1 puffs INH DAILY [facility] Stop: 10/06/19 08:59 Last Admin: 09/07/19 09:26 Dose: 1 puffs Documented by:
[2019-09-07] MEDS ORDERED: NITROGLYCERIN SL 0.4 MG/TAB TAB ONE (18:02)
[2019-09-07] MEDS ORDERED: LORazepam 0.5 MG TAB PO PRN (19:05)
[2019-09-07] MEDS ORDERED: ISOSORBIDE MONO EXTENDED REL 30 MG TABCR PO ONE (19:15)
[2019-09-07] MEDS: AMITRIPTYLINE HCL 10 MG TAB PO SCH (20:31)
[2019-09-07] MEDS: SERTRALINE HCL 50 MG TABLET PO SCH (20:31)
[2019-09-07] MEDS ORDERED: ENOXAPARIN INJ 40 MG/0.4 ML SYR SQ SCH (21:00)
[2019-09-08 06:12] LABS: Hematocrit (blood only) 33.7 % (37-47); Hemoglobin 10.9 g/dL (12.0-16.0); Mean Corpuscular Hemoglobin 30.4 pg (25-34); Mean Corpuscular Hgb Conc 32.3 g/dL (32-36); Mean Corpuscular Volume 93.9 fL (80-100); Platelet Count 220 K/uL (130-400); RDW Coefficient of Variation 13.9 % (11.5-14.5); RDW Standard Deviation 47.9 fL (36.4-46.3); Red Blood Count 3.59 M/uL (4.2-5.4); White Blood Count 11.05 K/uL (4.8-10.8)
[2019-09-08 06:40] LABS: BUN Creatinine Ratio 25.6 (10-20); Calcium 9.1 mg/dl (8.5-10.1); Creatinine Clr Calc Pharmacy 45.7 ml/min; Est GFR (African American) 62.8; Est GFR (Non-African American) 54.1; Potassium 3.5 mmol/L (3.5-5.1)
[2019-09-08 08:10] VITALS: TEMP 98.6; O2SAT 97
[2019-09-08] MEDS: UMECLIDINIUM/VILANTEROL 62.5/25MCG 7 PUFFS/INHALER INH SCH (08:12)
[2019-09-08] MEDS: METOPROLOL TARTRATE 25 MG TAB PO SCH (08:13)
[2019-09-08] MEDS: GABAPENTIN 300 MG CAP PO SCH (08:13)
[2019-09-08] MEDS: ASPIRIN 81 MG ECTAB PO SCH (08:13)
[2019-09-08] MEDS: NICOTINE 14 MG/24 HR PATCH TD SCH (08:13)
[2019-09-08] MEDS: ATORVASTATIN 40 MG TAB PO SCH (08:14)
[2019-09-08] MEDS: PANTOprazole 40 MG TAB PO SCH (08:14)
[2019-09-08 08:34] VITALS: BP 147/79
[2019-09-08] MEDS ORDERED: dilTIAZem HCL 120 MG CAPCR PO SCH (09:00)
--- NOTE | 2019-09-08 09:42 | Discharge Summary ---
Date of Service September 08, 2019 Admission HPI Per Admitting Provider History obtained from patient and records. Medical history significant for chronic diastolic heart failure as per records (EF 65 to 70%, TTE 2018), hx nonobstructive CAD/ PVD as per records, hypertension, hyperlipidemia, chronic respiratory failure as per records, COPD as per records, anxiety/mood disorder, chronic anemia baseline hemoglobin of 11, ongoing tobacco abuse. Recent confinement December 2018 for chest pain attributed to costochondritis. ACS ruled out. As per patient, she has had daily "anginal" attacks the last few weeks described as sharp left-sided chest pain with some shortness of breath usually precipitated by stress/exertion. Relieved by rest and or nitro intake at home. No consultations done. Few hours ago, patient had shortness of breath associated with left-sided chest pain without unusual cough symptoms. Some relief with nitro Rx at home. At the ER, patient received Solu-Medrol, neb treatment, and nitroglycerin. Patient currently comfortable. Medical History as above Surgical History : Carpal surgery, cystoscopy, D&C, cholecystectomy, shoulder surgery, hysterectomy Family History : Breast cancer, heart disease Personal/Social history : Half pack daily, no EtOH intake, caregiver work Admission Exam Per Admitting Provider GENERAL: Comfortable, obese, no respiratory distress SKIN: Normal color, warm HEENT: [place] palpebral conjunctivae, no ptosis, dry buccal mucosa, nasal cannula in place NECK : Supple, short neck, no tenderness CHEST : Decreased breath sounds , no tenderness HEART : RRR, no obvious murmurs ABDOMEN: Some distention, nontender EXTREMITIES : Minimal LE swelling, no LE tenderness, no other conspicuous d eformities noted NEUROLOGIC : Coherent, no facial asymmetry, no other gross focality Principal Diagnosis atypical chest pain possibly 2/2 vasospastic angina tobacco use viral syndrome Discharge Data Allergies Allergy/AdvReac Type Severity Reaction Status Date / Time latex Allergy Mild RASH Verified 09/05/19 18:56 Iodinated Contrast Media Allergy Unknown . Verified 09/05/19 18:56 Penicillins Allergy Unknown Unknown Verified 09/05/19 18:56 varenicline AdvReac Severe NAUSEA Verified 09/05/19 18:56 benzalkonium chloride AdvReac Intermediate VERTIGO Verified 09/05/19 18:56 ibuprofen AdvReac Intermediate ACID REFLEX Verified 09/05/19 18:56 ofloxacin AdvReac Intermediate VERTIGO Verified 09/05/19 18:56 Corticosteroids AdvReac Unknown jittery Verified 09/05/19 18:56 (Glucocorticoids) and hyper DM-APAP-CPM Allergy Severe ANAPHYLAXIS Uncoded 09/05/19 18:56 Consultations 09/05/19 21:52 ED Decision to Admit Stat 09/06/19 00:19 Consult Cardiology Routine Procedures Performed Operation Date: 09/06/19 13:00 Actual Procedures p Cath, Left with Cors and Vent - Cyril Roland MD Ordered Studies 09/05/19 20:07 CT angio chest PE protocol Stat 09/06/19 11:25 CL Cath Imgs for PACS use only Routine Hospital Course (1) Vasospastic angina: (2) Tobacco use: (3) Viral syndrome: (4) COPD (chronic obstructive pulmonary disease): (5) Leukocytosis: 69-year-old smoker with known nonobstructive CAD presented to the ER with acute chest pain. Troponin was trended overnight and the first troponin was negative followed by the second troponin revealing a mild bump of 0.062. The patient was started on a heparin drip. A few hours later another troponin was normal at 0.034. Cardiology was consulted and recommended a heart catheterization which was performed on 09/06/2019 via a right radial approach. This revealed mild to moderate nonobstructive coronary artery disease of approximately 40% in the mid LAD and 40% of the proximal RCA. She was returned to the floor and heparin was discontinued. An echocardiogram was performed on 09/06 revealing no significant change from the December 2018 study. Specifically she had an ejection fraction of 60 to 65% with no regional wall motion abnormalities noted. In the setting of active smoking and with her clinical presentation, cardiology surmised this pain may be due to vasospastic angina and recommended diltiazem. Additionally during the hospitalization she felt flushing and nausea the following day after catheterization. Allergic reaction tp contrast was considered however she had been pretreated with Solu-Medrol and Benadryl and had done well for at least 12 hours after exposure and prior to onset of symptoms. A CT of the chest was performed on admission revealing atelectasis with no airspace consolidation typical for pneumonia, no adenopathy or pleural effusion was seen but mild bronchial wall thickening was present suggestive of bronchitis or reactive airway disease. The patient was asymptomatic with respect to cough or fever but did feel flushed and nauseous which resolved spontaneously later that day. She also had a mild elevation in white count which was thought i nitially to be from her chest pain and cardiac catheterization process, but may well have been secondary to a viral syndrome. This improved to 11K by day of discharge. Overall, at time of discharge, she was hemodynamically stable and afebrile for the last 48 hours. She was mentating and ambulating at baseline and tolerating p.o. Although she felt some malaise this had improved and she was felt stable to be discharged home with close primary care follow-up recommended. She was strongly encouraged to quit smoking and was sent home with a prescription for NicoDerm patches. Total Time Total Time Spent Total Time Spent (In Minutes): 60 Total Time Includes: Examination of the Patient, Discharge Planning, Medication Reconciliation and Communication With Other Providers Discharge Plan Discharge Items Patient Disposition: Home - Self-Care Reason For Visit: ACS Discharge Diagnosis: atypical chest pain possibly 2/2 vasospastic angina tobacco use viral syndrome Condition on Discharge: Good Goals: Quit smoking Activity: Resume your previous activity Non-emergency contact: Primary Care Provider Call non-emergency contact if: you have any medication questions, your symptoms worsen, your pain is not controlled, your pain is worsening, your pain is unusual for you, your pain is concerning for you and you have a fever Follow-up/Referrals: Richar Arredondo MD [Primary Care Provider] - Diet: Heart Healthy Addtl Attending Provider Instructions: Please take all medications as instructed on discharge list below. It is strongly recommended that you quit smoking. Please use the nicotine patches provided as needed, and work with your primary care provider (PCP) to step down in therapy and wean off nicotine completely. You have the following appointment scheduled: 09/24/2019 8:00 AM Cedric Downey III, MD [facility] At this appointment, please let your PCP know how the new medication, diltiazem, is working for you and highlight any issues you may have had with chest pain since leaving the hospital. It was a pleasure taking care of you! Please call if you have any questions or problems. You can reach a [facility] hospitalist on duty at [facility] 24 hours a day by calling [phone]. Take care of yourself. Taina Recio DO [facility] Hospitalist [facility] Face Painter Provider Instructions: ACTIVITY RECOMMENDATIONS: Excess manipulation of the wrist should be avoided for the next 24-48 hours. * No lifting over 2 pounds (approximately a 1/2 gallon of milk) with the utilized arm for 24 hours. * No strenuous activity such as bowling or tennis for 3 days. * Keep the site of the procedure covered with a bandage for 24 hours. *You may shower the day after the procedure. Do not take a tub bath or submerge the puncture site in water for the next 3 days. *Do not operate any motorized equipment for 3 days. SPECIAL CARE INSTRUCTIONS: The site may be slightly bruised and sore following your procedure. Should any of the following occur, contact the Dr. who performed your procedure. 1. Redness/inflammation, swelling, chills, or fever, or colored drainage at procedure site within 3-7 days after your procedure. 2. Coldness, discoloration, ongoing numbness, severe pain, or swelling. Expect mild tingling of hand and tenderness at the puncture site for up to three days. If this persists beyond three days, or other symptoms develop, notify the Dr. who performed your procedure. BLEEDING: If the procedure site on your wrist begins to bleed, do not panic 1. Place 1 or 2 fingers firmly just slightly above the insertion site to stop the bleeding. You may be able to feel your pulse as you hold pressure. 2. Lift your finger after 5 minutes to see if the bleeding has stopped. 3. Once the bleeding has stopped, gently wipe the wrist area clean with a bandage. * If the bleeding from your wrist does not stop after 10 minutes, or if there is a large amount of bleeding or spurting, call 911 (do not drive yourself to the hospital). SKIN IRRITATION: * You may experience some redness and/or swelling in the area where radiation was administered. If any skin irritation occurs, please contact your family physician. FOLLOW UP VISIT: Keep any scheduled doctor appointments. Pending Studies at Discharge: No Stand-Alone Forms: [employer], Smoking Cessation Medications and DC Order Prescriptions: New nicotine 7 mg/24 hr Patch 24 Hour 14 mg transdermal QAM Qty: 14 RF: 1 diltiazem HCl 120 mg Capsule,Extended Release 24hr 120 mg PO QAM Qty: 30 RF: 1 Continued hydrocodone-acetaminophen 5-325 mg tablet 1 tab PO QID PRN (Reason: Pain) RF: 0 sertraline 100 mg tablet 150 mg PO HS RF: 0 omeprazole 40 mg capsule,delayed release(DR/EC) 40 mg PO QAM RF: 0 aspirin 81 mg Tablet,Delayed Release (Dr/Ec) 81 mg PO QAM RF: 0 amitriptyline 10 mg tablet 20 mg PO PM RF: 0 calcium carbonate [Calcium 600] 600 mg calcium (1,500 mg) Tablet 600 mg PO QAM RF: 0 cyclobenzaprine 5 mg Tablet 5 mg PO TID PRN (Reason: Muscle Spasm) RF: 0 nitroglycerin 0.4 mg Tablet, Sublingual 0.4 mg sublingual UD 30 Days Qty: 25 RF: 0 atorvastatin 40 mg Tablet 40 mg PO QAM RF: 0 oxybutynin chloride 5 mg tablet extended release 24hr 5 mg PO DAILY PRN (Reason: Pain) RF: 0 Anoro Ellipta 62.5-25 mcg/actuation blister with device 1 ea INHALATION DAILY RF: 0 gabapentin 300 mg Capsule 300 mg PO TID Qty: 90 RF: 0 Discharge Orders: Discharge Order (Routine); Ordered 09/08/19 Ordered By: Taina Recio Admission Data Admit Date/Time: 09/05/19 23:09 Attending Provider: Taina Recio Admit Provider: Bryn Fischer Primary Care Provider: Richar Arredondo I. Other Providers: Bryn Fischer ; Cyril Isabel
[2019-09-08 10:17] VITALS: PULSE 62
--- NOTE | 2019-09-08 14:17 | Electrocardiogram Report ---
Test Reason : Blood Pressure : / mmHG Vent. Rate : 083 BPM Atrial Rate : 083 BPM P-R Int : 144 ms QRS Dur : 088 ms QT Int : 376 ms P-R-T Axes : 057 -14 041 degrees QTc Int : 441 ms Normal sinus rhythm Normal ECG When compared with ECG of 06-SEP-2019 08:42, Nonspecific T wave abnormality has resolved Confirmed by Chaka Rosas ([id number]) on 09/08/2019 2:16:48 PM Referred By: REFERRED SELF Confirmed By:Chaka Rosas
== END 2019-09-08 11:50 | disposition home or self-care (01) | DRG 287 ==
LOC: ED 18:06 → 1E 18:06 → INTOOBSV 23:09 → SUATTDRO 23:09 → OBSVTOIN 23:09 → 1E 09-06 00:01 → 2S 09-06 21:48

== ENCOUNTER 2019-11-05 09:51 | Inpatient (IN) ==
--- NOTE | 2019-11-05 10:11 | Emergency Department Note ---
ED Provider Note NAME: NAOMI ARANA AGE: 69 SEX: F ARRIVES VIA: Walk-In INFORMANT: [Patient][, ] ED PROVIDER(S): Missael Piper MD CHIEF COMPLAINT: Flulike symptoms MEDICAL DECISION MAKING: The patient is a pleasant 69-year-old woman presents with department for evaluation of flu-like symptoms including cough, congestion and fevers over the past several days that began gradually in the setting of her mother testing +2 weeks ago for flu. She reports a history of COPD related to a remote smoking history. She reports she is supposed to be on oxygen but never received it. She reports she is supposed to use her inhalers but she does not do this r egularly. The patient is not taking any medications for current symptoms. On arrival patient is uncomfortable but no acute distress, with a temperature of 37.9 and vital signs otherwise stable. She appears clinically dry. She has a scant intermittent wheeze but is otherwise clear. EKG demonstrates normal sinus rhythm without overt acute ischemia. Chest x-ray negative for acute process. WBC and platelets within normal limits. H/H 11.2/34.8 similar to prior range of values. Chemistry without acidosis. Creatinine 1.2 consistent with the patient's clinically dry appearance. Although has had similar values in the past. Troponin negative/undetectable. Patient was influenza B positive. The patient was improved appearing after IV fluid hydration, d dexamethasone, DuoNeb's, and Tamiflu. However upon amatory trial the patient would become hypoxic and dyspneic. Thus, given the patient's severity of symptoms in the setting of influenza reasonable admit the patient for further management. Case was discussed with Norma Brewer, [facility], who evaluate the patient for admission. Triage Nursing notes reviewed and agree them. [Additional history obtained from] [] [Prior medical records reviewed] [] Vital Signs: reviewed and remarkable for temp of 37.9. Differential diagnosis: Viral syndrome, otitis, pharyngitis, pneumonia, influenza, meningitis, urinary tract infection, sepsis, bacteremia, as well as other pathologies. ER treatment provided: See below Diagnostics interpreted by me: ECG: Normal sinus rhythm, 83 bpm, normal axis, no ectopy, no ST elevation or depression, QTC 441, QRS 88. Cardiac Monitoring: Normal sinus rhythm, 83 bpm, no ectopy. Laboratory studies: [See below] [] Imaging studies: [See below] [] Consultation(s): [none] HPI: The patient is a pleasant 69-year-old woman presents with department for evaluation of flu-like symptoms including gradual development of cough, congestion and fevers from mild to moderate severity over the past several days in the setting of her mother testing +2 weeks ago for flu. She reports a history of COPD related to a remote smoking history. She reports she is supposed to be on oxygen but never received it. She reports she is supposed to use her inhalers but she does not do this regularly. The patient is not taking any medications for current symptoms. Denies CP, diarrhea, urinary symptoms. ROS: See above HPI for pertinent positives & negatives. A total of [10] systems reviewed and were otherwise negative. PAST MEDICAL HISTORY:[See Below] PAST SURGICAL HISTORY:[See Below] FAMILY HISTORY:[See Below] SOCIAL HISTORY:[See Below] HOME MEDICATIONS:[See Below] ALLERGIES:[See Below] VITALS:[See Below] PHYSICAL EXAMINATION: GENERAL: Awake, alert, uncomfortable-appearing, in no distress HENT: Normocephalic, atraumatic. Oropharynx with dry mucous membranes and otherwise unremarkable. EYES: Normal conjunctiva. Sclera non-icteric. NECK: Supple. No nuchal rigidity. FROM. No JVD. RESPIRATORY: Scant intermittent wheezes and otherwise clear to auscultation. CARDIAC: Regular rate, normal rhythm. Extremities warm and well perfused. Pulses equal. ABDOMEN: Soft, non-distended. No tenderness to palpation. No rebound or guarding. No masses. RECTAL: Deferred. MUSCULOSKELETAL: Chest examination reveals no tenderness. The back is symmetrical on inspection without obvious abnormality. There is no CVA tenderness to palpation. No joint edema. LOWER EXTREMITIES: Calves are equal size bilaterally and non-tender. No edema. No discoloration. NEURO: Normal sensorium. No sensory or motor deficits noted. SKIN: No rash or jaundice noted. ED COURSE: Missael Piper MD Impression & Plan Influenza B, Hypoxia, COPD (chronic obstructive pulmonary disease), Acute renal insufficiency Past Med/Surg History Medical History Anxiety (Chronic) CKD (chronic kidney disease), stage III COPD (chronic obstructive pulmonary disease) (Chronic) Depression (Chronic) Diastolic dysfunction (Chronic) GERD (gastroesophageal reflux disease) (Chronic) HLD (hyperlipidemia) Nocturnal hypoxia (Chronic) reported secondary to COPD. Pt not on home oxygen HS secondary to reported insurance issues Nonobstructive atherosclerosis of coronary artery (2018) LAD and circumflex free of major disease. RCA with 40 to 50% mid right coronary stenosis and 40% stenosis at the takeoff of the PDA. Osteoarthritis (Chronic) Osteoporosis (Chronic) Palpitation (Resolved) Tobacco use (Chronic) Surgical History History of cholecystectomy (Chronic) History of hysterectomy (Chronic) Family History Other Coronary heart disease Hypertension Social History Preferred Language: Ecuadorean Communication Ability: Effective Clinical Appeals Specialist Required: No Beliefs That Will Affect Care: None Current Living Situation: Alone Other Information That Helps Us Care for You: No Feels Safe at Home: Yes Safety Concerns: Feels Safe At This Time Smoking Status: Current every day smoker Tobacco Type: cigarettes ; Cigarettes Per Day: 10 ; Do You Dip or Chew Tobacco: No ; Second Hand Exposure: No ; Tobacco Cessation Education Requested by Patient: No Hx Alcohol Use: No Hx Substance Use: Yes substance use type: opiates and prescription drug Substance Use Type Other:: takes prescribed hydrocodone Results & Data Vital Signs Vital Signs - 24 hr 11/05/19 10:00 11/05/19 10:24 11/05/19 10:25 Temperature 37.9 C H Temperature Source Oral Pulse Rate 97 H 88 88 Pulse Rate [Apical] Pulse Rate [Recovery] Pulse Rate from SpO2 Sensor 89 Pulse Rhythm Regular Pulse Rhythm [Apical] Pulse Strength [Apical] Respiratory Rate 18 22 21 Respiratory Rate [Recovery] Respiratory Effort / Characteristics Respiratory Depth Respiratory Pattern Blood Pressure 128/52 L Blood Pressure [Right Arm] Blood Pressure Mean 77 Blood Pressure Mean [Right Arm] Blood Pressure Position [Right Arm] Pulse Oximetry 93 92 94 Pulse Oximetry [Recovery] Oxygen Delivery Method Room Air Room Air Room Air Oxygen Flow Rate Sepsis Recent Fever Within 48 Hours Yes Sepsis New/Unexplained Change in Mental Status No Sepsis Action Taken by Nursing No Action Required 11/05/19 10:30 11/05/19 10:40 11/05/19 10:50 Temperature Temperature Source Pulse Rate 87 88 82 Pulse Rate [Apical] Pulse Rate [Recovery] Pulse Rate from SpO2 Sensor 87 88 82 Pulse Rhythm Pulse Rhythm [Apical] Pulse Strength [Apical] Respiratory Rate 16 22 18 Respiratory Rate [Recovery] Respiratory Effort / Characteristics Respiratory Depth Respiratory Pattern Blood Pressure Blood Pressure [Right Arm] Blood Pressure Mean Blood Pressure Mean [Right Arm] Blood Pressure Position [Right Arm] Pulse Oximetry 94 92 94 Pulse Oximetry [Recovery] Oxygen Delivery Method Room Air Room Air Room Air Oxygen Flow Rate Sepsis Recent Fever Within 48 Hours Sepsis New/Unexplained Change in Mental Status Sepsis Action Taken by Nursing 11/05/19 10:51 11/05/19 10:54 11/05/19 10:57 Temperature Temperature Source Pulse Rate 79 Pulse Rate [Apical] 80 Pulse Rate [Recovery] Pulse Rate from SpO2 Sensor 80 Pulse Rhythm Pulse Rhythm [Apical] Regular Pulse Strength [Apical] Normal Respiratory Rate 20 24 20 Respiratory Rate [Recovery] Respiratory Effort / Characteristics Non-Labored Spontaneous Non-Labored Spontaneous Respiratory Depth Normal Respiratory Pattern Regular Blood Pressure 131/55 L Blood Pressure [Right Arm] 136/46 L Blood Pressure Mean 70 Blood Pressure Mean [Right Arm] 76 Blood Pressure Position [Right Arm] Sitting Pulse Oximetry 93 100 98 Pulse Oximetry [Recovery] Oxygen Delivery Method Room Air Room Air Nebulizer Oxygen Flow Rate 10 Sepsis Recent Fever Within 48 Hours Sepsis New/Unexplained Change in Mental Status Sepsis Action Taken by Nursing 11/05/19 11:00 11/05/19 11:10 11/05/19 11:20 Temperature Temperature Source Pulse Rate 81 80 84 Pulse Rate [Apical] Pulse Rate [Recovery] Pulse Rate from SpO2 Sensor 81 81 84 Pulse Rhythm Pulse Rhythm [Apical] Pulse Strength [Apical] Respiratory Rate 24 21 19 Respiratory Rate [Recovery] Respiratory Effort / Characteristics Respiratory Depth Respiratory Pattern Blood Pressure 136/46 L Blood Pressure [Right Arm] Blood Pressure Mean 81 Blood Pressure Mean [Right Arm] Blood Pressure Position [Right Arm] Pulse Oximetry 99 100 100 Pulse Oximetry [Recovery] Oxygen Delivery Method Room Air Room Air Room Air Oxygen Flow Rate Sepsis Recent Fever Within 48 Hours Sepsis New/Unexplained Change in Mental Status Sepsis Action Taken by Nursing 11/05/19 11:30 11/05/19 11:40 11/05/19 11:50 Temperature Temperature Source Pulse Rate 85 87 88 Pulse Rate [Apical] Pulse Rate [Recovery] Pulse Rate from SpO2 Sensor 85 87 88 Pulse Rhythm Pulse Rhythm [Apical] Pulse Strength [Apical] Respiratory Rate 22 21 20 Respiratory Rate [Recovery] Respiratory Effort / Characteristics Respiratory Depth Respiratory Pattern Blood Pressure 113/50 L Blood Pressure [Right Arm] Blood Pressure Mean 72 Blood Pressure Mean [Right Arm] Blood Pressure Position [Right Arm] Pulse Oximetry 98 98 97 Pulse Oximetry [Recovery] Oxygen Delivery Method Room Air Room Air Room Air Oxygen Flow Rate Sepsis Recent Fever Within 48 Hours Sepsis New/Unexplained Change in Mental Status Sepsis Action Taken by Nursing 11/05/19 12:00 11/05/19 12:10 11/05/19 12:13 Temperature Temperature Source Pulse Rate 90 95 H 97 H Pulse Rate [Apical] Pulse Rate [Recovery] Pulse Rate from SpO2 Sensor 91 H 95 H 97 H Pulse Rhythm Pulse Rhythm [Apical] Pulse Strength [Apical] Respiratory Rate 20 22 22 Respiratory Rate [Recovery] Respiratory Effort / Characteristics Respiratory Depth Respiratory Pattern Blood Pressure 99/51 L 107/50 L Blood Pressure [Right Arm] Blood Pressure Mean 61 58 Blood Pressure Mean [Right Arm] Blood Pressure Position [Right Arm] Pulse Oximetry 98 98 89 L Pulse Oximetry [Recovery] Oxygen Delivery Method Room Air Room Air Room Air Oxygen Flow Rate Sepsis Recent Fever Within 48 Hours Sepsis New/Unexplained Change in Mental Status Sepsis Action Taken by Nursing 11/05/19 12:20 11/05/19 12:30 11/05/19 12:40 Temperature Temperature Source Pulse Rate 96 H 96 H 96 H Pulse Rate [Apical] 96 H Pulse Rate [Recovery] Pulse Rate from SpO2 Sensor 97 H 96 H 96 H Pulse Rhythm Pulse Rhythm [Apical] Pulse Strength [Apical] Respiratory Rate 23 23 20 Respiratory Rate [Recovery] Respiratory Effort / Characteristics Non-Labored Spontaneous Respiratory Depth Normal Respiratory Pattern Regular Blood Pressure 111/49 L Blood Pressure [Right Arm] 107/50 L Blood Pressure Mean 57 Blood Pressure Mean [Right Arm] 69 Blood Pressure Position [Right Arm] Pulse Oximetry 86 L 90 93 Pulse Oximetry [Recovery] Oxygen Delivery Method Room Air Room Air Room Air Oxygen Flow Rate 2 Sepsis Recent Fever Within 48 Hours Sepsis New/Unexplained Change in Mental Status Sepsis Action Taken by Nursing 11/05/19 12:50 11/05/19 13:00 11/05/19 13:12 Temperature Temperature Source Pulse Rate 98 H 97 H 105 H Pulse Rate [Apical] Pulse Rate [Recovery] Pulse Rate from SpO2 Sensor 99 H 98 H 105 H Pulse Rhythm Pulse Rhythm [Apical] Pulse Strength [Apical] Respiratory Rate 12 13 21 Respiratory Rate [Recovery] Respiratory Effort / Characteristics Respiratory Depth Respiratory Pattern Blood Pressure 111/44 L Blood Pressure [Right Arm] Blood Pressure Mean 69 Blood Pressure Mean [Right Arm] Blood Pressure Position [Right Arm] Pulse Oximetry 90 93 92 Pulse Oximetry [Recovery] Oxygen Delivery Method Room Air Room Air Room Air Oxygen Flow Rate Sepsis Recent Fever Within 48 Hours Sepsis New/Unexplained Change in Mental Status Sepsis Action Taken by Nursing 11/05/19 13:16 11/05/19 13:20 11/05/19 13:30 Temperature Temperature Source Pulse Rate 98 H 97 H Pulse Rate [Apical] Pulse Rate [Recovery] 102 H Pulse Rate from SpO2 Sensor 98 H 98 H Pulse Rhythm Pulse Rhythm [Apical] Pulse Strength [Apical] Respiratory Rate 30 H 23 Respiratory Rate [Recovery] 26 H Respiratory Effort / Characteristics Respiratory Depth Respiratory Pattern Blood Pressure 112/53 L Blood Pressure [Right Arm] Blood Pressure Mean 64 Blood Pressure Mean [Right Arm] Blood Pressure Position [Right Arm] Pulse Oximetry 93 91 Pulse Oximetry [Recovery] 90 Oxygen Delivery Method Room Air Room Air Room Air Oxygen Flow Rate Sepsis Recent Fever Within 48 Hours Sepsis New/Unexplained Change in Mental Status Sepsis Action Taken by Nursing 11/05/19 13:40 11/05/19 13:50 11/05/19 13:57 Temperature Temperature Source Pulse Rate 100 H 99 H Pulse Rate [Apical] 97 H Pulse Rate [Recovery] Pulse Rate from SpO2 Sensor 100 H 99 H Pulse Rhythm Pulse Rhythm [Apical] Pulse Strength [Apical] Respiratory Rate 22 25 H 18 Respiratory Rate [Recovery] Respiratory Effort / Characteristics Non-Labored Spontaneous Respiratory Depth Respiratory Pattern Blood Pressure Blood Pressure [Right Arm] Blood Pressure Mean Blood Pressure Mean [Right Arm] Blood Pressure Position [Right Arm] Pulse Oximetry 90 89 L 90 Pulse Oximetry [Recovery] Oxygen Delivery Method Room Air Room Air Room Air Oxygen Flow Rate Sepsis Recent Fever Within 48 Hours Sepsis New/Unexplained Change in Mental Status Sepsis Action Taken by Nursing Laboratory Data Result diagrams: 11/05/19 Unknown 11/05/19 Unknown Lab Results 11/05/19 11/05/19 11/05/19 Range/Units Unknown Unknown Unknown WBC 6.61 (4.8-10.8) K/uL RBC 3.67 L (4.2-5.4) M/uL Hgb 11.2 L (12.0-16.0) g/dL Hct 34.8 L (37-47) % MCV 94.8 (80-100) fL MCH 30.5 (25-34) pg MCHC 32.2 (32-36) g/dL RDW Std Deviation 49.1 H (36.4-46.3) fL RDW Coeff of Melany 14.3 (11.5-14.5) % Plt Count 188 (130-400) K/uL MPV 10.3 (7.4-10.4) fL Immature Gran % (Auto) 0.5 % Neut % (Auto) 61.3 % Lymph % (Auto) 23.6 % [place] % (Auto) 13.0 % Eos % (Auto) 1.1 % Baso % (Auto) 0.5 % Immature Gran # (Auto) 0.03 H (0.00-0.02) K/uL Neut # (Auto) 4.06 (1.4-6.5) K/uL Lymph # (Auto) 1.56 (1.2-3.4) K/uL [place] # (Auto) 0.86 H (0.11-0.59) K/uL Eos # (Auto) 0.07 (0-0.5) K/uL Baso # (Auto) 0.03 (0-0.2) K/uL PT 10.7 (9.0-12.0) Seconds INR 1.0 (0.9-1.1) APTT 30.8 (21.0-31.0) Seconds PTT Ratio 1.1 Sodium 138 (136-145) mmol/L Potassium 4.0 (3.5-5.1) mmol/L Chloride 109 H (98-107) mmol/L Carbon Dioxide 23 (21-32) mmol/L Anion Gap 6.0 (3-11) BUN 19 H (7-18) mg/dl Creatinine 1.23 H (0.6-1.2) mg/dl Est Cr Clr Drug Dosing 38.6 ml/min Est GFR ( Amer) 51.8 Est GFR (Non-Af Amer) 44.7 BUN/Creatinine Ratio 15.4 (10-20) Glucose 109 H (70-99) mg/dl Calcium 9.0 (8.5-10.1) mg/dl Phosphorus 3.2 (2.5-4.9) mg/dl Magnesium 1.9 (1.8-2.4) mg/dl Total Bilirubin 0.2 (0.2-1) mg/dl AST 27 (15-37) U/L ALT 32 (12-78) U/L Alkaline Phosphatase 86 (45-117) U/L Troponin I < 0.015 (0-0.045) ng/ml Total Protein 7.8 (6.4-8.2) gm/dl Albumin 3.4 (3.4-5.0) gm/dl Globulin 4.4 H (2.5-4.0) gm/dl Albumin/Globulin Ratio 0.8 L (0.9-2) Lipase 87 (73-393) U/L Administered Medications Albuterol (Duoneb) 3 ml NEB QIDR KELSIE Stop: 12/05/19 17:59 Last Admin: 11/05/19 19:26 Dose: 3 ml Documented by: [id number] Amitriptyline HCl (Elavil) 20 mg PO PM KELSIE Stop: 12/05/19 20:59 Last Admin: 11/05/19 20:24 Dose: 20 mg Documented by: [id number] Gabapentin (Neurontin) 300 mg PO TID KELSIE Stop: 12/05/19 20:59 Last Admin: 11/05/19 20:23 Dose: 300 mg Documented by: [id number] Oseltamivir Phosphate (Tamiflu) 30 mg PO BID KELSIE; Protocol Stop: 11/10/19 20:59 Last Admin: 11/05/19 20:23 Dose: 30 mg Documented by: [id number] Sertraline HCl (Zoloft) 150 mg PO HS KELSIE Stop: 12/05/19 20:59 Last Admin: 11/05/19 20:24 Dose: 150 mg Documented by: [id number] Discontinued Medications Albuterol (Duoneb) 12 ml NEB ONE ONE Stop: 11/05/19 10:29 Last Admin: 11/05/19 10:49 Dose: 12 ml Documented by: [id number] Albuterol (Duoneb) 3 ml NEB NOW STA Stop: 11/05/19 13:48 Last Admin: 11/05/19 13:56 Dose: 3 ml Documented by: [id number] Dexamethasone Sodium Phosphate (Decadron Pf) Confirm Administered Dose 10 mg .ROUTE .STK-MED ONE Stop: 11/05/19 10:41 Last Admin: 11/05/19 10:47 Dose: 10 mg Documented by: [id number] Guaifenesin (Mucinex) 600 mg PO NOW STA Stop: 11/05/19 10:29 Last Admin: 11/05/19 10:46 Dose: 600 mg Documented by: [id number] Sodium Chloride (Nss 1000ml) 1,000 mls @ 999 mls/hr IV .Q1H1M ONE Stop: 11/05/19 11:28 Last Infusion: 11/05/19 11:50 Dose: 0 mls/hr Documented by: [id number] Admin: 11/05/19 10:46 Dose: 999 mls/hr Documented by: [id number] Dexamethasone Sodium Phosphate (10 mg/ Syringe) 2.5 mls @ 1 mls/min IV NOW STA Stop: 11/05/19 10:30 Last Admin: 11/05/19 10:47 Dose: Not Given Documented by: [id number] Acetaminophen (Ofirmev) 1,000 mg in 100 mls @ 400 mls/hr IV NOW STA Stop: 11/05/19 10:43 Last Infusion: 11/05/19 11:12 Dose: 0 mls/hr Documented by: [id number] Admin: 11/05/19 10:45 Dose: 400 mls/hr Documented by: [id number] Oseltamivir Phosphate (Tamiflu) 75 mg PO NOW STA; Protocol Stop: 11/05/19 12:37 Last Admin: 11/05/19 13:20 Dose: 75 mg Documented by: [id number] Sodium Chloride ([place] Nasal) 2 sprays NA NOW ONE Stop: 11/05/19 10:29 Last Admin: 11/05/19 10:47 Dose: 225 sprays Documented by: [id number] Imaging Data Attestation: I personally reviewed and interpreted this imaging study as follows: Radiologist's Impression: XR chest 1V portable HISTORY: Atypical Chest Pain COMPARISON: Chest 09/05/2019. FINDINGS: There are a few bibasilar linear densities. This favors subsegmental atelectasis or scarring. Otherwise, lungs are clear. The heart is mildly enlarged. This remains unchanged. No evidence for pulmonary edema. No pleural effusions. No pneumothorax. IMPRESSION: No significant change compared to the prior study. No acute process. ACT 112: Negative or not required by law. Blood Pressure Blood Pressure Findings: Elevated blood pressure Blood Pressure Disposition: further management by hospitalist Discharge Plan Visit Data *Final* Discharge Date/Time: 11/05/19 17:08 Chief Complaint: Flu Like Symptoms Stated Complaint: BODY ACHES, COUGH,FEVER ED Provider: Missael Piper Discharge Problem: Influenza B, Hypoxia, COPD (chronic obstructive pulmonary disease), Acute renal insufficiency Patient Disposition: Admitted As Inpatient Discharge Instructions Interventions: ED Discharge Assessment Last Done: 11/05/19 17:08 Meds Home Medications and Allergies Home Medications Medication Instructions Recorded Confirmed Type amitriptyline 20 mg PO PM 09/20/18 11/05/19 History aspirin 81 mg PO QAM 09/20/18 11/05/19 History hydrocodone-acetaminophen 1 tab PO QID PRN 09/20/18 11/05/19 History omeprazole 40 mg PO QAM 09/20/18 11/05/19 History sertraline 150 mg PO HS 09/20/18 11/05/19 History calcium carbonate [Calcium 600] 600 mg PO QAM 01/02/19 11/05/19 History cyclobenzaprine 5 mg PO TID PRN 01/02/19 11/05/19 History atorvastatin 40 mg PO QAM 02/28/19 11/05/19 History Anoro Ellipta 1 ea INHALATION DAILY 09/05/19 11/05/19 History albuterol sulfate 2 puff INHALATION Q4H PRN 11/05/19 11/05/19 History alendronate 70 mg PO WK 11/05/19 11/05/19 History bupropion HCl 100 mg PO DAILY 11/05/19 11/05/19 History ezetimibe 10 mg PO DAILY 11/05/19 11/05/19 History Allergies Allergy/AdvReac Type Severity Reaction Status Date / Time latex Allergy Mild RASH Verified 11/05/19 10:56 Iodinated Contrast Media Allergy Unknown . Verified 11/05/19 10:56 Penicillins Allergy Unknown Unknown Verified 11/05/19 10:56 varenicline AdvReac Severe NAUSEA Verified 11/05/19 10:56 benzalkonium chloride AdvReac Intermediate VERTIGO Verified 11/05/19 10:56 ibuprofen AdvReac Intermediate ACID REFLEX Verified 11/05/19 10:56 ofloxacin AdvReac Intermediate VERTIGO Verified 11/05/19 10:56 Corticosteroids AdvReac Unknown jittery Verified 11/05/19 10:56 (Glucocorticoids) and hyper [id number] Allergy Severe ANAPHYLAXIS Uncoded 11/05/19 10:56
[2019-11-05] MEDS ORDERED: ALBUT/IPRATROP 3MG/0.5MG NEB 3 ML VIAL NEB ONE (10:28)
[2019-11-05] MEDS ORDERED: SODIUM CHLORIDE 0.9% 1000ML 1,000 ML IV ONE (10:28)
[2019-11-05] MEDS ORDERED: guaiFENesin 600 MG TABCR PO STA (10:28)
[2019-11-05] MEDS ORDERED: SODIUM CHLORIDE 0.65% NA SOLN 45 ML (OCEAN) ONE (10:28)
[2019-11-05] MEDS ORDERED: DEXAMETHASONE SOD PHOSPHATE 10 MG in SYRINGE 0 ML IV STA (10:28)
[2019-11-05] MEDS ORDERED: ACETAMINOPHEN 1,000 MG/100 ML VIAL IV STA (10:29)
[2019-11-05] MEDS ORDERED: DEXAMETHASONE **PF** INJ 10 MG/ML VIAL ONE (10:40)
[2019-11-05 10:53] LABS: Basophils # (auto) 0.03 K/uL (0-0.2); Basophils % (auto) 0.5 %; Eosinophils # (auto) 0.07 K/uL (0-0.5); Eosinophils % (auto) 1.1 %; Hematocrit (blood only) 34.8 % (37-47); Hemoglobin 11.2 g/dL (12.0-16.0); Immature Granulocytes # (auto) 0.03 K/uL (0.00-0.02); Immature Granulocytes % (auto) 0.5 %; Lymphocytes # (auto) 1.56 K/uL (1.2-3.4); Lymphocytes % (auto) 23.6 %; Mean Corpuscular Hemoglobin 30.5 pg (25-34); Mean Corpuscular Hgb Conc 32.2 g/dL (32-36); Mean Corpuscular Volume 94.8 fL (80-100); Mean Platelet Volume 10.3 fL (7.4-10.4); Monocytes # (auto) 0.86 K/uL (0.11-0.59); Neutrophils # (auto) 4.06 K/uL (1.4-6.5); Neutrophils % (auto) 61.3 %; Platelet Count 188 K/uL (130-400); RDW Coefficient of Variation 14.3 % (11.5-14.5); RDW Standard Deviation 49.1 fL (36.4-46.3); Red Blood Count 3.67 M/uL (4.2-5.4); White Blood Count 6.61 K/uL (4.8-10.8)
[2019-11-05 11:11] LABS: Partial Thromboplastin Ratio 1.1; Partial Thromboplastin Time 30.8 Seconds (21.0-31.0); Prothrombin Time 10.7 Seconds (9.0-12.0)
--- NOTE | 2019-11-05 11:17 | XRay Report ---
XR chest 1V portable HISTORY: Atypical Chest Pain COMPARISON: Chest 09/05/2019. FINDINGS: There are a few bibasilar linear densities. This favors subsegmental atelectasis or scarrin g. Otherwise, lungs are clear. The heart is mildly enlarged. This remains unchanged. No evidence for pulmonary edema. No pleural effusions. No pneumothorax. IMPRESSION: No significant change compared to the prior study. No acute process. ACT 112: Negative or not required by law. Electronically signed by: Bello Vivas M.D. 11/05/2019 11:15 AM
[2019-11-05 11:21] LABS: Alanine Aminotransferase 32 U/L (12-78); Albumin Level 3.4 gm/dl (3.4-5.0); Aspartate Aminotransferase 27 U/L (15-37); BUN Creatinine Ratio 15.4 (10-20); Blood Urea Nitrogen 19 mg/dl (7-18); Carbon Dioxide 23 mmol/L (21-32); Chloride 109 mmol/L (98-107); Creatinine Clr Calc Pharmacy 38.6 ml/min; Est GFR (African American) 51.8; Est GFR (Non-African American) 44.7; Glucose 109 mg/dl (70-99); Lipase 87 U/L (73-393); Magnesium 1.9 mg/dl (1.8-2.4); Sodium 138 mmol/L (136-145)
[2019-11-05 11:26] LABS: Albumin Globulin Ratio 0.8 (0.9-2); Alkaline Phosphatase 86 U/L (45-117); Bilirubin,Total 0.2 mg/dl (0.2-1); Globulin 4.4 gm/dl (2.5-4.0); Phosphorus 3.2 mg/dl (2.5-4.9); Total Protein 7.8 gm/dl (6.4-8.2); Troponin I < 0.015 ng/ml (0-0.045)
[2019-11-05 11:51] LABS: Influenza A virus by PCR Neg for Influ A (Neg)
[2019-11-05] MEDS ORDERED: OSELTAMIVIR PHOSPHATE 75 MG CAP PO STA (12:36)
[2019-11-05] MEDS ORDERED: ALBUT/IPRATROP 3MG/0.5MG NEB 3 ML VIAL NEB STA (13:47)
--- NOTE | 2019-11-05 14:29 | History & Physical Report ---
Date of Service November 05, 2019 Assessment & Plan (1) Influenza B: (2) SOB (shortness of breath): Pt is 69 y/o F with PMH COPD, nocturnal hypoxemia (not on oxygen), CKD III, HTN, HLD, PVD, obstructive CAD, chronic diastolic heart failure, GERD, anxiety, depression, chronic anemia presented to ER with complaint of fever, nonproductive cough, SOB x 3 days. In ER T: 37.9C, P: 97, R: 18, BP: 128/52, 93% on RA. No leukocytosis. +Influenza B swab. CXR: no acute changes -In ER given 1 mL NSS, Decadron 10 mg IV, Tylenol IV, hour-long nebulizer treatment, Mucinex, Tamiflu -In ER patient short of breath with ambulation -Tamiflu 30 mg twice daily for renal dosing -Scheduled DuoNebs -Supplemental oxygen as needed -CBC, BMP in a.m. (3) COPD (chronic obstructive pulmonary disease): H/O nocturnal hypoxemia not on oxygen at bedtime -Treat flu as above -Duo nebs -Supplemental oxygen as needed (4) Nonobstructive atherosclerosis of coronary artery: No chest pain -Continue aspirin, statin, diltiazem (5) CKD (chronic kidney disease), stage III: Cr: 1.23. Baseline:1 -Monitor renal functions -Avoid nephrotoxic agents when possible (6) HLD (hyperlipidemia): -Continue atorvastatin, Zetia (7) Anxiety: H/O anxiety/depression -Continue sertraline, bupropion (8) GERD (gastroesophageal reflux disease): -Continue PPI (9) Tobacco use: -Patient recently stopped smoking 2 weeks ago -Nicotine patch DVT Prophylaxis -SCDs Full Code as per discussion with pt Follows with Dr Downey for routine care Pt was seen and care coordinated with Dr Ambrose. See addendum History of Present Illness Chief Complaint: Fever Primary Care Provider: Cedric Downey MD Pt is 69 y/o F with PMH COPD, nocturnal hypoxemia (not on oxygen), CKD III, HTN, HLD, PVD, obstructive CAD, chronic diastolic heart failure, GERD, anxiety, depression, chronic anemia presented to ER with complaint of fever, nonproductive cough, shortness of breath x 3 days. Past 3 days c/o myalgias, arthralgias, nasal congestion. Reports fever 103F at home. Complains of short ness of breath with exertion. Has been using albuterol inhaler twice a day with limited relief. Reports her mother had flu recently. Denies recent travel. Patient states recently stopped smoking 2 weeks ago and has been using nicotine patch. Denies diaphoresis, N/V/D/C, MEADOWS, dizziness, syncope, vision changes, neck pain, CP, orthopnea, palpitations, sore throat, choking, otalgia, rhinorrhea, abdominal pain, paresthesias, weakness, extremity weakness, extremity edema, rashes, urinary symptoms. Allergies Allergy/AdvReac Type Severity Reaction Status Date / Time latex Allergy Mild RASH Verified 11/05/19 10:56 Iodinated Contrast Media Allergy Unknown . Verified 11/05/19 10:56 Penicillins Allergy Unknown Unknown Verified 11/05/19 10:56 varenicline AdvReac Severe NAUSEA Verified 11/05/19 10:56 benzalkonium chloride AdvReac Intermediate VERTIGO Verified 11/05/19 10:56 ibuprofen AdvReac Intermediate ACID REFLEX Verified 11/05/19 10:56 ofloxacin AdvReac Intermediate VERTIGO Verified 11/05/19 10:56 Corticosteroids AdvReac Unknown jittery Verified 11/05/19 10:56 (Glucocorticoids) and hyper [id number]-CPM Allergy Severe ANAPHYLAXIS Uncoded 11/05/19 10:56 Home Medications Home Medications Medication Instructions Recorded Confirmed Type amitriptyline 20 mg PO PM 09/20/18 11/05/19 History aspirin 81 mg PO QAM 09/20/18 11/05/19 History hydrocodone-acetaminophen 1 tab PO QID PRN 09/20/18 11/05/19 History omeprazole 40 mg PO QAM 09/20/18 11/05/19 History sertraline 150 mg PO HS 09/20/18 11/05/19 History calcium carbonate [Calcium 600] 600 mg PO QAM 01/02/19 11/05/19 History cyclobenzaprine 5 mg PO TID PRN 01/02/19 11/05/19 History nitroglycerin 0.4 mg SUBLINGUAL UD 30 Days #25 01/03/19 11/05/19 Rx tab atorvastatin 40 mg PO QAM 02/28/19 11/05/19 History Anoro Ellipta 1 ea INHALATION DAILY 09/05/19 11/05/19 History diltiazem HCl 120 mg PO QAM #30 cap 09/08/19 11/05/19 Rx gabapentin 300 mg PO TID #90 cap 09/08/19 11/05/19 Rx nicotine 14 mg TRANSDERMAL QAM #14 ea 09/08/19 11/05/19 Rx albuterol sulfate 2 puff INHALATION Q4H PRN 11/05/19 11/05/19 History alendronate 70 mg PO WK 11/05/19 11/05/19 History bupropion HCl 100 mg PO DAILY 11/05/19 11/05/19 History ezetimibe 10 mg PO DAILY 11/05/19 11/05/19 History Past Med/Surg History Medical History Anxiety (Chronic) CKD (chronic kidney disease), stage III COPD (chronic obstructive pulmonary disease) (Chronic) Depression (Chronic) Diastolic dysfunction (Chronic) GERD (gastroesophageal reflux disease) (Chronic) HLD (hyperlipidemia) Nocturnal hypoxia (Chronic) reported secondary to COPD. Pt not on home oxygen HS secondary to reported insurance issues Nonobstructive atherosclerosis of coronary artery (2018) LAD and circumflex free of major disease. RCA with 40 to 50% mid right c oronary stenosis and 40% stenosis at the takeoff of the PDA. Osteoarthritis (Chronic) Osteoporosis (Chronic) Palpitation (Resolved) Tobacco use (Chronic) Surgical History History of cholecystectomy (Chronic) History of hysterectomy (Chronic) Family History Other Coronary heart disease Hypertension Social History Preferred Language: Syriac Communication Ability: Effective Cattle Sorter Required: No Beliefs That Will Affect Care: None Current Living Situation: Alone Other Information That Helps Us Care for You: No Feels Safe at Home: Yes Safety Concerns: Feels Safe At This Time Smoking Status: Current every day smoker Tobacco Type: cigarettes ; Cigarettes Per Day: 10 ; Do You Dip or Chew Tobacco: No ; Second Hand Exposure: No ; Tobacco Cessation Education Requested by Patient: No Hx Alcohol Use: No Hx Substance Use: Yes substance use type: opiates and prescription drug Substance Use Type Other:: takes prescribed hydrocodone Review of Systems Review of Systems: All systems reviewed & are unremarkable except as noted in HPI & below Physical Exam Physical Exam: General: no acute distress, WDWN Head: normocephalic, atraumatic Eyes: PERRL, EOM's intact, conjunctiva non-injected, anicteric ENT: normal inspection external ears, nose, mucous membranes moist Neck: supple, trachea midline Lungs: clear, no respiratory distress, R: 20, 91% on RA, faint wheezing CV: RRR, no murmur, no pretibial edema Abd: normal BS, soft, non-tender Ext: no cyanosis, no calf tenderness Neuro: A&O x 3, no focal deficits noted, normal affect Skin: warm, dry Results & Data Vital Signs (Past 12 Hours) Vital Signs Temp Pulse Pulse Pulse Resp Resp BP 11/05/19 14:08 97 H 22 11/05/19 13:57 97 H 18 11/05/19 13:16 102 H 26 H 11/05/19 12:20 96 H 22 11/05/19 10:57 80 20 11/05/19 10:51 20 11/05/19 10:24 88 22 11/05/19 10:00 37.9 C H 97 H 18 128/52 L BP Pulse Ox Pulse Ox 11/05/19 14:08 108/51 L 91 11/05/19 13:57 90 11/05/19 13:16 90 11/05/19 12:20 107/50 L 91 11/05/19 10:57 136/46 L 98 11/05/19 10:51 93 11/05/19 10:24 92 11/05/19 10:00 93 Laboratory Results Short CBC 11/05/19 Range/Units Unknown WBC 6.61 (4.8-10.8) K/uL Hgb 11.2 L (12.0-16.0) g/dL Hct 34.8 L (37-47) % Plt Count 188 (130-400) K/uL BMP 11/05/19 Unknown Sodium 138 Potassium 4.0 Chloride 109 H Carbon Dioxide 23 BUN 19 H Creatinine 1.23 H Glucose 109 H Calcium 9.0 Cardiac Enzymes 11/05/19 Range/Units Unknown Troponin I < 0.015 (0-0.045) ng/ml Liver Function 11/05/19 Range/Units Unknown Total Bilirubin 0.2 (0.2-1) mg/dl AST 27 (15-37) U/L ALT 32 (12-78) U/L Alkaline Phosphatase 86 (45-117) U/L Albumin 3.4 (3.4-5.0) gm/dl Diagnostic Findings CXR: IMPRESSION: No significant change compared to the prior study. No acute process. Code Status & VTE Plan VTE Prophylaxis Plan VTE Prophylaxis will be ordered: Yes Supervising Physician Co-Signing Physician Notes Care coordinated with Vanessa Brewer PA-C. Agree with above note. Patient seen and examined. Please refer to her notes for full details. Vital signs reviewed. Physical exam: General exam: Alert and oriented. Not in acute distress. CVS: S1 and S2 heard, regular rate and rhythm, no murmurs. RS: Clear to auscultation, mild b/l rhonchi no crackles. ABD: Soft, bowel sounds present, nontender, no distention. RESERVATIONS AND TICKETING AGENT: Nonfocal. EXT: No edema, no erythema. Labs: Reviewed. Assessment and plan: Flu positive Presented with sob, fever and cough, Sob on sertion Cxr unremarkable started on mel flu close monitor. hx of copd nebs atc and prn home inhalers received steroid in ER will monitor. Other diagnosis and plan of care as per Vanessa Brewer PA-C. Laurent gonzales MD.
[2019-11-05] MEDS ORDERED: ACETAMINOPHEN 325 MG TAB PO PRN (17:28)
[2019-11-05] MEDS ORDERED: CYCLOBENZAPRINE HCL 5 MG TAB PO PRN (17:28)
[2019-11-05] MEDS ORDERED: NITROGLYCERIN SL 0.4 MG/TAB TAB SL PRN (17:28)
[2019-11-05] MEDS: ALBUT/IPRATROP 3MG/0.5MG NEB 3 ML VIAL NEB SCH (19:26)
[2019-11-05] MEDS ORDERED: ALBUT/IPRATROP 3MG/0.5MG NEB 3 ML VIAL NEB PRN (19:53)
[2019-11-05] MEDS: GABAPENTIN 300 MG CAP PO SCH (20:23)
[2019-11-05] MEDS: OSELTAMIVIR PHOSPHATE SUSP 30 MG/5 ML UDP PO SCH (20:23)
[2019-11-05] MEDS: SERTRALINE HCL 50 MG TABLET PO SCH (20:24)
[2019-11-05] MEDS: AMITRIPTYLINE HCL 10 MG TAB PO SCH (20:24)
--- NOTE | 2019-11-05 22:57 | Electrocardiogram Report ---
Test Reason : Blood Pressure : / mmHG Vent. Rate : 080 BPM Atrial Rate : 080 BPM P-R Int : 152 ms QRS Dur : 082 ms QT Int : 362 ms P-R-T Axes : 044 -18 006 degrees QTc Int : 417 ms Normal sinus rhythm Normal ECG When compared with ECG of 07-SEP-2019 18:04, No significant change Confirmed by Dylon Gagnon ([id number]) on 11/05/2019 10:58:06 PM Referred By: REFERRED SELF Confirmed By:Dylon Gagnon
[2019-11-06] MEDS: ALBUT/IPRATROP 3MG/0.5MG NEB 3 ML VIAL NEB SCH (07:08)
[2019-11-06 08:08] LABS: Hematocrit (blood only) 36.3 % (37-47); Hemoglobin 11.9 g/dL (12.0-16.0); Mean Corpuscular Hemoglobin 30.7 pg (25-34); Mean Corpuscular Hgb Conc 32.8 g/dL (32-36); Mean Corpuscular Volume 93.6 fL (80-100); Mean Platelet Volume 9.9 fL (7.4-10.4); Platelet Count 223 K/uL (130-400); RDW Coefficient of Variation 13.8 % (11.5-14.5); RDW Standard Deviation 47.1 fL (36.4-46.3); Red Blood Count 3.88 M/uL (4.2-5.4); White Blood Count 9.88 K/uL (4.8-10.8)
[2019-11-06 08:38] LABS: BUN Creatinine Ratio 19.6 (10-20); Calcium 9.3 mg/dl (8.5-10.1); Creatinine Clr Calc Pharmacy 41.2 ml/min; Est GFR (African American) 56.8; Potassium 3.7 mmol/L (3.5-5.1)
[2019-11-06] MEDS: GABAPENTIN 300 MG CAP PO SCH ×3 (08:50→20:02)
[2019-11-06] MEDS: dilTIAZem HCL 120 MG CAPCR PO SCH (08:50)
[2019-11-06] MEDS: BuPROPion SR 100 MG TABCR PO SCH (08:50)
[2019-11-06] MEDS: CALCIUM 600MG + VIT D 400 IU TAB PO SCH (08:50)
[2019-11-06] MEDS: ASPIRIN 81 MG ECTAB PO SCH (08:51)
[2019-11-06] MEDS: ATORVASTATIN 40 MG TAB PO SCH (08:51)
[2019-11-06] MEDS: NICOTINE 14 MG/24 HR PATCH TD SCH (08:51)
[2019-11-06] MEDS: EZETIMIBE 10 MG TABLET PO SCH (08:51)
[2019-11-06] MEDS: PANTOprazole 40 MG TAB PO SCH (08:51)
[2019-11-06] MEDS: OSELTAMIVIR PHOSPHATE SUSP 30 MG/5 ML UDP PO SCH ×2 (08:52→20:03)
[2019-11-06] MEDS ORDERED: ALBUT/IPRATROP 3MG/0.5MG NEB 3 ML VIAL NEB PRN (09:45)
[2019-11-06] MEDS ORDERED: COUGH DROP (SUGAR FREE) LOZ 24 LOZ/1 BOX BUCCAL STA (13:56)
[2019-11-06] MEDS ORDERED: COUGH DROP (SUGAR FREE) LOZ 24 LOZ/1 BOX BUCCAL ONE (13:58)
--- NOTE | 2019-11-06 15:24 | Hospitalist Progress Note ---
Date of Service November 06, 2019 Assessment & Plan (1) Influenza B: Pt is 69 y/o F with PMH COPD, nocturnal hypoxemia (not on oxygen), CKD III, HTN, HLD, PVD, obstructive CAD, chronic diastolic heart failure, GERD, anxiety, depression, chronic anemia presented to ER with complaint of fever, no nproductive cough, SOB x 3 days. Influenza B was positive without any chest x-ray finding of pneumonia Received intravenous NSS, Decadron 10 mg IV, Tylenol IV, hour-long nebulizer treatment, Mucinex Has been on Tamiflu 30 mg twice daily for renal dosing Scheduled DuoNebs Supplemental oxygen as needed Clinically better today with improvement of shortness of breath and wheezing Advised to ambulate Likely discharge tomorrow (2) SOB (shortness of breath): As above (3) COPD (chronic obstructive pulmonary disease): H/O nocturnal hypoxemia not on oxygen at bedtime Does not have any COPD exacerbation Symptoms are due to flu Duo nebs Supplemental oxygen as needed (4) Nonobstructive atherosclerosis of coronary artery: No chest pain Continue aspirin, statin, diltiazem (5) CKD (chronic kidney disease), stage III: Cr: 1.23. Baseline:1 -Monitor renal functions -Avoid nephrotoxic agents when possible Creatinine level has been normalized (6) HLD (hyperlipidemia): -Continue atorvastatin, Zetia (7) Anxiety: H/O anxiety/depression -Continue sertraline, bupropion (8) GERD (gastroesophageal reflux disease): -Continue PPI (9) Tobacco use: -Patient recently stopped smoking 2 weeks ago -Nicotine patch DVT Prophylaxis -SCDs Full Code as per discussion with pt Follows with Dr Downey for routine care P Admission and Anticipated Discharge Date Admission Date: November 05, 2019 Subjective The patient was seen and examined in medical telemetry unit She has COPD, chronic kidney disease, hypertension and obstructive CAD with chronic chronic diastolic heart failure was admitted yesterday with influenza B Has been feeling reasonably better since admission Complaints to have minimal shortness of breath with exertion without any wheezing Review of Systems Review of Systems: All systems reviewed and are unremarkable except as noted below Physical Exam Physical Exam: Lying in bed without any apparent distress Constitutional: well developed and well nourished; no acute distress and not ill appearing Eyes: PERRL, conjunctivae normal, anicteric sclerae ENMT: external ear and nose normal, oropharynx normal Neck: trachea midline, no thyromegaly Respiratory: normal respiratory effort; no respiratory distress Auscultation: + diminished lung sounds and + wheezes; no crackles Cardiovascular: Rate/Rhythm: regular rate and regular rhythm Heart Sounds: no murmur Gastrointestinal (Abdomen): Inspection/Auscultation: abdomen normal to inspection and normal bowel sounds Percussion/Palpation: abdomen soft; abdomen nontender Lymphatic: no cervical or axillary lymphadenopathy Results & Data ([facility]) Vital Signs (Past 12 Hours) Vital Signs Temp Pulse Pulse Resp BP Pulse Ox 11/06/19 11:39 36.9 C 81 20 145/74 H 93 11/06/19 07:13 36.8 C 73 18 147/74 H 94 11/06/19 07:08 71 16 93 11/06/19 07:00 74 11/06/19 03:43 36.8 C 73 16 122/69 93 Laboratory Results Short CBC 11/06/19 Range/Units 07:44 WBC 9.88 (4.8-10.8) K/uL Hgb 11.9 L (12.0-16.0) g/dL Hct 36.3 L (37-47) % Plt Count 223 (130-400) K/uL BMP 11/06/19 07:44 Sodium 138 Potassium 3.7 Chloride 108 H Carbon Dioxide 23 BUN 22 H Creatinine 1.14 Glucose 107 H Calcium 9.3 Medications Administered Current Inpatient Medications Acetaminophen (Tylenol) 650 mg PO Q4H PRN PRN Reason: Pain or Fever Stop: 12/05/19 17:27 Hydrocodone Bitart/Acetaminophen ([place] 5/325) 1 tab PO QID PRN PRN Reason: Pain Stop: 11/19/19 17:50 Albuterol (Duoneb) 3 ml NEB Q2H PRN PRN Reason: Shortness Of Breath Or Wheezing Stop: 12/05/19 19:59 Albuterol (Duoneb) 3 ml NEB QIDR PRN PRN Reason: Shortness Of Breath Or Wheezing Stop: 12/05/19 17:59 Amitriptyline HCl (Elavil) 20 mg PO PM [facility] Stop: 12/05/19 20:59 Last Admin: 11/05/19 20:24 Dose: 20 mg Documented by: Aspirin (Ecotrin Ectab) 81 mg PO QAM [facility] Stop: 12/06/19 08:59 Last Admin: 11/06/19 08:51 Dose: 81 mg Documented by: Atorvastatin Calcium (Lipitor) [address] [facility] Stop: 12/06/19 08:59 Last Admin: 11/06/19 08:51 Dose: 40 mg Documented by: Bupropion HCl (Wellbutrin-Sr) 100 mg PO DAILY [facility] Stop: 12/06/19 08:59 Last Admin: 11/06/19 08:50 Dose: 100 mg Documented by: Cyclobenzaprine HCl (Flexeril) 5 mg PO TID PRN PRN Reason: Muscle Spasm Stop: 12/05/19 17:27 Diltiazem HCl (Cardizem Cd) [address] [facility] Stop: 12/06/19 08:59 Last Admin: 11/06/19 08:50 Dose: 120 mg Documented by: Ezetimibe (Zetia) 10 mg PO DAILY [facility] Stop: 12/06/19 08:59 Last Admin: 11/06/19 08:51 Dose: 10 mg Documented by: Gabapentin (Neurontin) 300 mg PO TID [facility] Stop: 12/05/19 20:59 Last Admin: 11/06/19 14:04 Dose: 300 mg Documented by: Miscellaneous (Remove Nicoderm Patch) 1 ea N/A DAILY@858 [facility] Stop: 12/07/19 08:58 Multivitamins/Minerals (Caltrate Plus) [address] [facility] Stop: 12/06/19 08:59 Last Admin: 11/06/19 08:50 Dose: 1 tab Documented by: Nicotine (Nicoderm Cq) [address] [facility] Stop: 12/06/19 08:59 Last Admin: 11/06/19 08:51 Dose: 14 mg Documented by: Nitroglycerin (Nitrostat) 0.4 mg SL UD PRN PRN Reason: CHEST PAIN Stop: 12/05/19 17:27 Oseltamivir Phosphate (Tamiflu) 30 mg PO BID [facility]; Protocol Stop: 11/10/19 20:59 Last Admin: 11/06/19 08:52 Dose: 30 mg Documented by: Pantoprazole Sodium (Protonix) [address] [facility] Stop: 12/06/19 08:59 Last Admin: 11/06/19 08:51 Dose: 40 mg Documented by: Sertraline HCl (Zoloft) 150 mg PO HS [facility] Stop: 12/05/19 20:59 Last Admin: 11/05/19 20:24 Dose: 150 mg Documented by:
[2019-11-06] MEDS: SERTRALINE HCL 50 MG TABLET PO SCH (20:02)
[2019-11-06] MEDS: AMITRIPTYLINE HCL 10 MG TAB PO SCH (20:03)
[2019-11-07] MEDS: BuPROPion SR 100 MG TABCR PO SCH (08:18)
[2019-11-07] MEDS: ATORVASTATIN 40 MG TAB PO SCH (08:18)
[2019-11-07] MEDS: PANTOprazole 40 MG TAB PO SCH (08:18)
[2019-11-07] MEDS: ASPIRIN 81 MG ECTAB PO SCH (08:18)
[2019-11-07] MEDS: GABAPENTIN 300 MG CAP PO SCH ×3 (08:18→19:29)
[2019-11-07] MEDS: CALCIUM 600MG + VIT D 400 IU TAB PO SCH (08:18)
[2019-11-07] MEDS: dilTIAZem HCL 120 MG CAPCR PO SCH (08:18)
[2019-11-07] MEDS: EZETIMIBE 10 MG TABLET PO SCH (08:18)
[2019-11-07] MEDS: NICOTINE 14 MG/24 HR PATCH TD SCH (08:19)
[2019-11-07] MEDS: OSELTAMIVIR PHOSPHATE SUSP 30 MG/5 ML UDP PO SCH ×2 (08:25→20:13)
[2019-11-07] MEDS: HYDROCODONE/ACETAMOPHEN 5/325MG TAB PO PRN ×2 (12:06→19:28)
--- NOTE | 2019-11-07 12:49 | Hospitalist Progress Note ---
Date of Service November 07, 2019 Assessment & Plan (1) Influenza B: Pt is 69 y/o F with PMH COPD, nocturnal hypoxemia (not on oxygen), CKD III, HTN, HLD, PVD, obstructive CAD, chronic diastolic heart failure, GERD, anxiety, depression, chronic anemia presented to ER with complaint of fever, no nproductive cough, SOB x 3 days. Influenza B was positive without any chest x-ray finding of pneumonia Received intravenous NSS, Decadron 10 mg IV, Tylenol IV, hour-long nebulizer treatment, Mucinex Has been on Tamiflu 30 mg twice daily for renal dosing Scheduled DuoNebs Supplemental oxygen as needed Clinically better today with improvement of shortness of breath and wheezing Advised to ambulate Condition got somewhat worse today with cough and shortness of breath on exertion Has had fever of 38.5 last night We will get chest x-ray to rule out any pneumonia Will start azithromycin (2) SOB (shortness of breath): As above (3) COPD (chronic obstructive pulmonary disease): H/O nocturnal hypoxemia not on oxygen at bedtime Does not have any COPD exacerbation Symptoms are due to flu Duo nebs Supplemental oxygen as needed (4) Nonobstructive atherosclerosis of coronary artery: No chest pain Continue aspirin, statin, diltiazem (5) CKD (chronic kidney disease), stage III: Cr: 1.23. Baseline:1 -Monitor renal functions -Avoid nephrotoxic agents when possible Creatinine level has been normalized (6) HLD (hyperlipidemia): -Continue atorvastatin, Zetia (7) Anxiety: H/O anxiety/depression -Continue sertraline, bupropion (8) GERD (gastroesophageal reflux disease): -Continue PPI (9) Tobacco use: -Patient recently stopped smoking 2 weeks ago -Nicotine patch DVT Prophylaxis -SCDs Full Code as per discussion with pt Follows with Dr Downey for routine care P Admission and Anticipated Discharge Date Admission Date: November 05, 2019 Subjective The patient was seen and examined in medical telemetry unit She has COPD, chronic kidney disease, hypertension and obstructive CAD with chronic chronic diastolic heart failure was admitted yesterday with influenza B Has been feeling reasonably better since admission Complaints to have minimal shortness of breath with exertion without any wheezing 11/07/2019 The patient was seen and examined in medical floor She has been having lots of cough with productive whitish phlegm Does not feel good today with more weakness and tiredness Has a fever last night 38.4 Review of Systems Review of Systems: All systems reviewed and are unremarkable except as noted below Respiratory: + cough, + chest congestion and + dyspnea on exertion Physical Exam Physical Exam: Lying in bed without any apparent distress Constitutional: well developed and well nourished; no acute distress and not ill appearing Eyes: PERRL, conjunctivae normal, anicteric sclerae ENMT: external ear and nose normal, oropharynx normal Neck: trachea midline, no thyromegaly Respiratory: normal respiratory effort; no respiratory distress Auscultation: + diminished lung sounds and + wheezes; no crackles Cardiovascular: Rate/Rhythm: regular rate and regular rhythm Heart Sounds: no murmur Gastrointestinal (Abdomen): Inspection/Auscultation: abdomen normal to inspection and normal bowel sounds Percussion/Palpation: abdomen soft; abdomen nontender Musculoskeletal: No acute arthritis in any joint Neurologic: patellar DTR's 2+ bilat, sensation intact Lymphatic: no cervical or axillary lymphadenopathy Results & Data ([facility]) Vital Signs (Past 12 Hours) Vital Signs Temp Pulse Pulse Resp BP Pulse Ox 11/07/19 11:18 36.9 C 84 18 106/58 L 91 11/07/19 07:07 37.2 C 79 18 115/67 90 11/07/19 07:00 72 11/07/19 03:44 36.8 C 70 18 109/65 92 Medications Administered Current Inpatient Medications Acetaminophen (Tylenol) 650 mg PO Q4H PRN PRN Reason: Pain or Fever Stop: 12/05/19 17:27 Last Admin: 11/06/19 22:53 Dose: 650 mg Documented by: Hydrocodone Bitart/Acetaminophen ([place] 5/325) 1 tab PO QID PRN PRN Reason: Pain Stop: 11/19/19 17:50 Last Admin: 11/07/19 12:06 Dose: 1 tab Documented by: Albuterol (Duoneb) 3 ml NEB Q2H PRN PRN Reason: Shortness Of Breath Or Wheezing Stop: 12/05/19 19:59 Albuterol (Duoneb) 3 ml NEB QIDR PRN PRN Reason: Shortness Of Breath Or Wheezing Stop: 12/05/19 17:59 Amitriptyline HCl (Elavil) 20 mg PO PM [facility] Stop: 04/16/20 20:59 Last Admin: 11/06/19 20:03 Dose: 20 mg Documented by: Aspirin (Ecotrin Ectab) 81 mg PO QAM [facility] Stop: 12/06/19 08:59 Last Admin: 11/07/19 08:18 Dose: 81 mg Documented by: Atorvastatin Calcium (Lipitor) 40 mg PO QAM [facility] Stop: 12/06/19 08:59 Last Admin: 11/07/19 08:18 Dose: 40 mg Documented by: Bupropion HCl (Wellbutrin-Sr) 100 mg PO DAILY [facility] Stop: 12/06/19 08:59 Last Admin: 11/07/19 08:18 Dose: 100 mg Documented by: Cyclobenzaprine HCl (Flexeril) 5 mg PO TID PRN PRN Reason: Muscle Spasm Stop: 12/05/19 17:27 Diltiazem HCl (Cardizem Cd) 120 mg PO QAM [facility] Stop: 12/06/19 08:59 Last Admin: 11/07/19 08:18 Dose: 120 mg Documented by: Ezetimibe (Zetia) 10 mg PO DAILY [facility] Stop: 12/06/19 08:59 Last Admin: 11/07/19 08:18 Dose: 10 mg Documented by: Gabapentin (Neurontin) 300 mg PO TID [facility] Stop: 12/05/19 20:59 Last Admin: 11/07/19 08:18 Dose: 300 mg Documented by: Guaifenesin/Dextromethorphan (Robitussin Cough-Chest Dm) 10 ml PO Q6H PRN PRN Reason: Cough Stop: 12/07/19 12:22 Miscellaneous (Remove Nicoderm Patch) 1 ea N/A DAILY@59 [facility] Stop: 12/07/19 08:58 Last Admin: 11/07/19 08:20 Dose: 1 ea Documented by: Multivitamins/Minerals (Caltrate Plus) 1 tab PO QAM [facility] Stop: 12/06/19 08:59 Last Admin: 11/07/19 08:18 Dose: 1 tab Documented by: Nicotine (Nicoderm Cq) 14 mg TD QAM [facility] Stop: 12/06/19 08:59 Last Admin: 11/07/19 08:19 Dose: 14 mg Documented by: Nitroglycerin (Nitrostat) 0.4 mg SL UD PRN PRN Reason: CHEST PAIN Stop: 12/05/19 17:27 Oseltamivir Phosphate (Tamiflu) 30 mg PO BID [facility]; Protocol Stop: 11/10/19 20:59 Last Admin: 11/07/19 08:25 Dose: 30 mg Documented by: Pantoprazole Sodium (Protonix) [facility] [place] Stop: 12/06/19 08:59 Last Admin: 11/07/19 08:18 Dose: 40 mg Documented by: Sertraline HCl (Zoloft) 150 mg PO [facility] Stop: 12/05/19 20:59 Last Admin: 11/06/19 20:02 Dose: 150 mg Documented by:
[2019-11-07] MEDS: AZITHROMYCIN 250 MG TAB PO SCH (13:48)
[2019-11-07] MEDS: GUAIFENESIN/DEXTROM SYRUP 200MG/20MG 10ML UDC PO PRN ×2 (14:33→20:34)
[2019-11-07] MEDS: AMITRIPTYLINE HCL 10 MG TAB PO SCH (19:29)
[2019-11-07] MEDS: SERTRALINE HCL 50 MG TABLET PO SCH (19:29)
--- NOTE | 2019-11-07 20:55 | XRay Report ---
XR chest 2V PA/lateral CLINICAL HISTORY: pneumonia COMPARISON STUDY: 11/05/2019 FINDINGS: The cardiac and mediastinal contours are normal. There is no evidence of focal pulmonary co nsolidation. There is no evidence of failure. No pleural effusions are visualized.[Linear basilar opa cities are consistent with subsegmental atelectasis IMPRESSION: 1. Subsegmental atelectatic changes at the lung bases. No evidence of acute parenchymal consolidation ACT 112: Negative or not required by law. Electronically signed by: Jose Hairston M.D. 11/07/2019 8:53 PM
[2019-11-08] MEDS: GUAIFENESIN/DEXTROM SYRUP 200MG/20MG 10ML UDC PO PRN ×3 (02:31→20:32)
[2019-11-08] MEDS: OSELTAMIVIR PHOSPHATE SUSP 30 MG/5 ML UDP PO SCH ×2 (08:38→20:32)
[2019-11-08] MEDS: dilTIAZem HCL 120 MG CAPCR PO SCH (08:40)
[2019-11-08] MEDS: EZETIMIBE 10 MG TABLET PO SCH (08:40)
[2019-11-08] MEDS: ATORVASTATIN 40 MG TAB PO SCH (08:41)
[2019-11-08] MEDS: ASPIRIN 81 MG ECTAB PO SCH (08:41)
[2019-11-08] MEDS: PANTOprazole 40 MG TAB PO SCH (08:42)
[2019-11-08] MEDS: AZITHROMYCIN 250 MG TAB PO SCH (08:42)
[2019-11-08] MEDS: BuPROPion SR 100 MG TABCR PO SCH (08:42)
[2019-11-08] MEDS: NICOTINE 14 MG/24 HR PATCH TD SCH (08:43)
[2019-11-08] MEDS: GABAPENTIN 300 MG CAP PO SCH ×3 (08:43→20:32)
[2019-11-08] MEDS: CALCIUM 600MG + VIT D 400 IU TAB PO SCH (08:45)
--- NOTE | 2019-11-08 14:09 | Hospitalist Progress Note ---
Date of Service November 08, 2019 Assessment & Plan (1) Influenza B: Pt is 69 y/o F with PMH COPD, nocturnal hypoxemia (not on oxygen), CKD III, HTN, HLD, PVD, obstructive CAD, chronic diastolic heart failure, GERD, anxiety, depression, chronic anemia presented to ER with complaint of fever, no nproductive cough, SOB x 3 days. Influenza B was positive without any chest x-ray finding of pneumonia Received intravenous NSS, Decadron 10 mg IV, Tylenol IV, hour-long nebulizer treatment, Mucinex Has been on Tamiflu 30 mg twice daily for renal dosing Scheduled DuoNebs Supplemental oxygen as needed Clinically better today with improvement of shortness of breath and wheezing Advised to ambulate Condition got somewhat worse today with cough and shortness of breath on exertion Has had fever of 38.5 last night We will get chest x-ray to rule out any pneumonia Will start azithromycin Clinically much better today Minimal shortness of breath on exertion Likely to go home tomorrow (2) SOB (shortness of breath): As above (3) COPD (chronic obstructive pulmonary disease): H/O nocturnal hypoxemia not on oxygen at bedtime Does not have any COPD exacerbation Symptoms are due to flu Duo nebs Supplemental oxygen as needed Started on oral azithromycin for bronchitis with history of COPD (4) Nonobstructive atherosclerosis of coronary artery: No chest pain Continue aspirin, statin, diltiazem (5) CKD (chronic kidney disease), stage III: Cr: 1.23. Baseline:1 -Monitor renal functions -Avoid nephrotoxic agents when possible Creatinine level has been normalized (6) HLD (hyperlipidemia): -Continue atorvastatin, Zetia (7) Anxiety: H/O anxiety/depression -Continue sertraline, bupropion (8) GERD (gastroesophageal reflux disease): -Continue PPI (9) Tobacco use: -Patient recently stopped smoking 2 weeks ago -Nicotine patch DVT Prophylaxis -SCDs Full Code as per discussion with pt Follows with Dr Downey for routine care Admission and Anticipated Discharge Date Admission Date: November 07, 2019 Subjective The patient was seen and examined in medical telemetry unit She has COPD, chronic kidney disease, hypertension and obstructive CAD with chronic chronic diastolic heart failure was admitted yesterday with influenza B Has been feeling reasonably better since admission Complaints to have minimal shortness of breath with exertion without any wheezing 11/07/2019 The patient was seen and examined in medical floor She has been having lots of cough with productive whitish phlegm Does not feel good today with more weakness and tiredness Has a fever last night 38.4 11/08/2019 The patient was seen and examined in medical floor She has been feeling a little better today Still complains today of cough with shortness of breath on minimal exertion Saturating well on room air Review of Systems Review of Systems: All systems reviewed and are unremarkable except as noted below Respiratory: + cough, + chest congestion and + dyspnea on exertion Cardiovascular: no chest pain and no palpitations Physical Exam Physical Exam: Lying in bed without any apparent distress Constitutional: well developed and well nourished; no acute distress and not ill appearing Eyes: PERRL, conjunctivae normal, anicteric sclerae ENMT: external ear and nose normal, oropharynx normal Neck: trachea midline, no thyromegaly Respiratory: normal respiratory effort; no respiratory distress Auscultation: + diminished lung sounds and + wheezes (Mostly on the right side and at the base); no crackles Cardiovascular: Rate/Rhythm: regular rate and regular rhythm Heart Sounds: no murmur Gastrointestinal (Abdomen): Inspection/Auscultation: abdomen normal to inspection and normal bowel sounds Percussion/Palpation: abdomen soft; abdomen nontender Musculoskeletal: No acute arthritis in any joints Neurologic: patellar DTR's 2+ bilat, sensation intact Lymphatic: no cervical or axillary lymphadenopathy Results & Data ([facility]) Vital Signs (Past 12 Hours) Vital Signs Temp Pulse Pulse Resp BP Pulse Ox 11/08/19 11:14 36.9 C 80 16 117/58 L 93 11/08/19 09:06 79 11/08/19 07:16 37.6 C H 85 16 111/59 L 91 Medications Administered Current Inpatient Medications Acetaminophen (Tylenol) 650 mg PO Q4H PRN PRN Reason: Pain or Fever Stop: 12/05/19 17:27 Last Admin: 11/06/19 22:53 Dose: 650 mg Documented by: Hydrocodone Bitart/Acetaminophen ([place] 5/325) 1 tab PO QID PRN PRN Reason: Pain Stop: 11/19/19 17:50 Last Admin: 11/07/19 19:28 Dose: 1 tab Documented by: Albuterol (Duoneb) 3 ml NEB Q2H PRN PRN Reason: Shortness Of Breath Or Wheezing Stop: 12/05/19 19:59 Amitriptyline HCl (Elavil) 20 mg PO PM [facility] Stop: 12/05/19 20:59 Last Admin: 11/07/19 19:29 Dose: 20 mg Documented by: Aspirin (Ecotrin Ectab) 81 mg PO QAM [facility] Stop: 12/06/19 08:59 Last Admin: 11/08/19 08:41 Dose: 81 mg Documented by: Atorvastatin Calcium (Lipitor) 40 mg PO QAM [facility] Stop: 12/06/19 08:59 Last Admin: 11/08/19 08:41 Dose: 40 mg Documented by: Azithromycin (Zithromax) 500 [facility] [place] Stop: 11/14/19 12:59 Last Admin: 11/08/19 08:42 Dose: 500 mg Documented by: Bupropion HCl (Wellbutrin-Sr) 100 mg PO DAILY [facility] Stop: 12/06/19 08:59 Last Admin: 11/08/19 08:42 Dose: 100 mg Documented by: Cyclobenzaprine HCl (Flexeril) 5 mg PO TID PRN PRN Reason: Muscle Spasm Stop: 12/05/19 17:27 Diltiazem HCl (Cardizem Cd) 120 mg PO [facility] Stop: 12/06/19 08:59 Last Admin: 11/08/19 08:40 Dose: 120 mg Documented by: Ezetimibe (Zetia) 10 mg PO DAILY [facility] Stop: 12/06/19 08:59 Last Admin: 11/08/19 08:40 Dose: 10 mg Documented by: Gabapentin (Neurontin) 300 mg PO TID [facility] Stop: 12/05/19 20:59 Last Admin: 11/08/19 13:22 Dose: 300 mg Documented by: Guaifenesin/Dextromethorphan (Robitussin Cough-Chest Dm) 10 ml PO Q6H PRN PRN Reason: Cough Stop: 12/07/19 12:22 Last Admin: 11/08/19 11:13 Dose: 10 ml Documented by: Miscellaneous (Remove Nicoderm Patch) 1 ea N/A DAILY@0859 [facility] Stop: 12/07/19 08:58 Last Admin: 11/08/19 08:39 Dose: 1 ea Documented by: Multivitamins/Minerals (Caltrate Plus) 1 tab [facility] [place] Stop: 12/06/19 08:59 Last Admin: 11/08/19 08:45 Dose: 1 tab Documented by: Nicotine (Nicoderm Cq) 14 mg TD [facility] [place] Stop: 12/06/19 08:59 Last Admin: 11/08/19 08:43 Dose: 14 mg Documented by: Nitroglycerin (Nitrostat) 0.4 mg SL UD PRN PRN Reason: CHEST PAIN Stop: 12/05/19 17:27 Oseltamivir Phosphate (Tamiflu) 30 mg PO BID [facility]; Protocol Stop: 11/10/19 20:59 Last Admin: 11/08/19 08:38 Dose: 30 mg Documented by: Pantoprazole Sodium (Protonix) 40 mg PO [facility] Stop: 12/06/19 08:59 Last Admin: 11/08/19 08:42 Dose: 40 mg Documented by: Sertraline HCl (Zoloft) 150 mg PO [facility] Stop: 12/05/19 20:59 Last Admin: 11/07/19 19:29 Dose: 150 mg Documented by:
[2019-11-08] MEDS: HYDROCODONE/ACETAMOPHEN 5/325MG TAB PO PRN (16:24)
[2019-11-08] MEDS: SERTRALINE HCL 50 MG TABLET PO SCH (20:31)
[2019-11-08] MEDS: AMITRIPTYLINE HCL 10 MG TAB PO SCH (20:32)
[2019-11-09 07:28] VITALS: BP 105/65; TEMP 99; O2SAT 90
[2019-11-09] MEDS: dilTIAZem HCL 120 MG CAPCR PO SCH (08:31)
[2019-11-09] MEDS: OSELTAMIVIR PHOSPHATE SUSP 30 MG/5 ML UDP PO SCH (08:31)
[2019-11-09] MEDS: NICOTINE 14 MG/24 HR PATCH TD SCH (08:32)
[2019-11-09] MEDS: ATORVASTATIN 40 MG TAB PO SCH (08:32)
[2019-11-09] MEDS: ASPIRIN 81 MG ECTAB PO SCH (08:32)
[2019-11-09] MEDS: EZETIMIBE 10 MG TABLET PO SCH (08:33)
[2019-11-09] MEDS: GABAPENTIN 300 MG CAP PO SCH (08:33)
[2019-11-09] MEDS: PANTOprazole 40 MG TAB PO SCH (08:33)
[2019-11-09] MEDS: BuPROPion SR 100 MG TABCR PO SCH (08:33)
[2019-11-09] MEDS: AZITHROMYCIN 250 MG TAB PO SCH (08:34)
[2019-11-09] MEDS: CALCIUM 600MG + VIT D 400 IU TAB PO SCH (08:34)
--- NOTE | 2019-11-09 11:00 | Hospitalist Progress Note ---
Date of Service November 09, 2019 Assessment & Plan (1) Influenza B: Pt is 69 y/o F with PMH COPD, nocturnal hypoxemia (not on oxygen), CKD III, HTN, HLD, PVD, obstructive CAD, chronic diastolic heart failure, GERD, anxiety, depression, chronic anemia presented to ER with complaint of fever, no nproductive cough, SOB x 3 days. Influenza B was positive without any chest x-ray finding of pneumonia Received intravenous NSS, Decadron 10 mg IV, Tylenol IV, hour-long nebulizer treatment, Anneex Has been on Tamiflu 30 mg twice daily for renal dosing Scheduled DuoNebs Supplemental oxygen as needed Condition got somewhat worse today with cough and shortness of breath on exertion Has had fever of 38.5 last night We will get chest x-ray to rule out any pneumonia Has been on azithromycin Clinically a lot better and denies any shortness of breath with exertion Will be discharged home this afternoon (2) SOB (shortness of breath): As above (3) COPD (chronic obstructive pulmonary disease): H/O nocturnal hypoxemia not on oxygen at bedtime Does not have any COPD exacerbation Symptoms are due to flu Duo nebs Supplemental oxygen as needed Started on oral azithromycin for bronchitis with history of COPD Will continue azithromycin for 5 days in total (4) Nonobstructive atherosclerosis of coronary artery: No chest pain Continue aspirin, statin, diltiazem (5) CKD (chronic kidney disease), stage III: Cr: 1.23. Baseline:1 -Monitor renal functions -Avoid nephrotoxic agents when possible Creatinine level has been normalized (6) HLD (hyperlipidemia): -Continue atorvastatin, Zetia (7) Anxiety: H/O anxiety/depression -Continue sertraline, bupropion (8) GERD (gastroesophageal reflux disease): -Continue PPI (9) Tobacco use: -Patient recently stopped smoking 2 weeks ago -Nicotine patch DVT Prophylaxis -SCDs Full Code as per discussion with pt Follows with Dr Downey for routine care Admission and Anticipated Discharge Date Admission Date: November 07, 2019 Subjective The patient was seen and examined in medical telemetry unit She has COPD, chronic kidney disease, hypertension and obstructive CAD with chronic chronic diastolic heart failure was admitted yesterday with influenza B Has been feeling reasonably better since admission Complaints to have minimal shortness of breath with exertion without any wheezing 11/07/2019 The patient was seen and examined in medical floor She has been having lots of cough with productive whitish phlegm Does not feel good today with more weakness and tiredness Has a fever last night 38.4 11/08/2019 The patient was seen and examined in medical floor She has been feeling a little better today Still complains today of cough with shortness of breath on minimal exertion Saturating well on room air 11/09/2019 The patient was seen and examined in medical floor She has been much better Only symptom remains his cough Does not have any shortness of breath on exertion or moving around Will be discharged this afternoon Review of Systems Review of Systems: All systems reviewed and are unremarkable except as noted below Respiratory: + cough; no chest congestion and no dyspnea on exertion Physical Exam Physical Exam: Lying in bed without any apparent distress Constitutional: well developed and well nourished; no acute distress and not ill appearing Eyes: PERRL, conjunctivae normal, anicteric sclerae ENMT: external ear and nose normal, oropharynx normal Neck: trachea midline, no thyromegaly Respiratory: normal respiratory effort; no respiratory distress Auscultation: lungs clear to auscultation bilaterally; no crackles and no wheezes (Mostly on the right side and at the base) Cardiovascular: Rate/Rhythm: regular rate and regular rhythm Heart Sounds: no murmur Gastrointestinal (Abdomen): Inspection/Auscultation: abdomen normal to inspection and normal bowel sounds Percussion/Palpation: abdomen soft; abdomen nontender Neurologic: patellar DTR's 2+ bilat, sensation intact Lymphatic: no cervical or axillary lymphadenopathy Results & Data ([facility]) Vital Signs (Past 12 Hours) Vital Signs Temp Pulse Pulse Resp BP Pulse Ox 11/09/19 07:27 37.2 C 79 18 105/65 90 11/09/19 07:22 76 11/09/19 00:01 72 11/08/19 23:42 62 16 92 11/08/19 23:21 36.7 C 72 18 100/50 L 89 L Medications Administered Current Inpatient Medications Acetaminophen (Tylenol) 650 mg PO Q4H PRN PRN Reason: Pain or Fever Stop: 12/05/19 17:27 Last Admin: 11/06/19 22:53 Dose: 650 mg Documented by: Hydrocodone Bitart/Acetaminophen ([place] 5/325) 1 tab PO QID PRN PRN Reason: Pain Stop: 11/19/19 17:50 Last Admin: 11/08/19 16:24 Dose: 1 tab Documented by: Albuterol (Duoneb) 3 ml NEB Q2H PRN PRN Reason: Shortness Of Breath Or Wheezing Stop: 12/05/19 19:59 Last Admin: 11/08/19 23:42 Dose: 3 ml Documented by: Amitriptyline HCl (Elavil) 20 mg PO PM [facility] Stop: 12/05/19 20:59 Last Admin: 11/08/19 20:32 Dose: 20 mg Documented by: Aspirin (Ecotrin Ectab) 81 mg PO QAM [facility] Stop: 12/06/19 08:59 Last Admin: 11/09/19 08:32 Dose: 81 mg Documented by: Atorvastatin Calcium (Lipitor) [facility] [place]: 12/06/19 08:59 Last Admin: 11/09/19 08:32 Dose: 40 mg Documented by: Azithromycin (Zithromax) 500 mg PO [facility] Stop: 11/14/19 12:59 Last Admin: 11/09/19 08:34 Dose: 500 mg Documented by: Bupropion HCl (Wellbutrin-Sr) 100 mg PO DAILY [facility] Stop: 12/06/19 08:59 Last Admin: 11/09/19 08:33 Dose: 100 mg Documented by: Cyclobenzaprine HCl (Flexeril) 5 mg PO TID PRN PRN Reason: Muscle Spasm Stop: 12/05/19 17:27 Diltiazem HCl (Cardizem Cd) 120 [facility] [place]: 12/06/19 08:59 Last Admin: 11/09/19 08:31 Dose: 120 mg Documented by: Ezetimibe (Zetia) 10 mg PO DAILY [facility] Stop: 12/06/19 08:59 Last Admin: 11/09/19 08:33 Dose: 10 mg Documented by: Gabapentin (Neurontin) 300 mg PO TID [facility] Stop: 12/05/19 20:59 Last Admin: 11/09/19 08:33 Dose: 300 mg Documented by: Guaifenesin/Dextromethorphan (Robitussin Cough-Chest Dm) 10 ml PO Q6H PRN PRN Reason: Cough Stop: 12/07/19 12:22 Last Admin: 11/08/19 20:32 Dose: 10 ml Documented by: Miscellaneous (Remove Nicoderm Patch) 1 ea N/A DAILY@0859 [facility] Stop: 12/07/19 08:58 Last Admin: 11/09/19 08:32 Dose: 1 ea Documented by: Multivitamins/Minerals (Caltrate Plus) 1 tab [facility] [place]: 12/06/19 08:59 Last Admin: 11/09/19 08:34 Dose: 1 tab Documented by: Nicotine (Nicoderm Cq) 14 mg TD [facility] Stop: 12/06/19 08:59 Last Admin: 11/09/19 08:32 Dose: 14 mg Documented by: Nitroglycerin (Nitrostat) 0.4 mg SL UD PRN PRN Reason: CHEST PAIN Stop: 12/05/19 17:27 Oseltamivir Phosphate (Tamiflu) 30 mg PO BID [facility]; Protocol Stop: 11/10/19 20:59 Last Admin: 11/09/19 08:31 Dose: 30 mg Documented by: Pantoprazole Sodium (Protonix) 40 [facility] [place]: 12/06/19 08:59 Last Admin: 11/09/19 08:33 Dose: 40 mg Documented by: Sertraline HCl (Zoloft) 150 mg PO [facility] Stop: 12/05/19 20:59 Last Admin: 11/08/19 20:31 Dose: 150 mg Documented by:
[2019-11-09 12:46] VITALS: PULSE 83
--- NOTE | 2019-11-10 08:34 | Discharge Summary ---
Date of Service November 10, 2019 Admission HPI Per Admitting Provider Pt is 69 y/o F with PMH COPD, nocturnal hypoxemia (not on oxygen), CKD III, HTN, HLD, PVD, obstructive CAD, chronic diastolic heart failure, GERD, anxiety, depression, chronic anemia presented to ER with complaint of fever, nonproductive cough, shortness of breath x 3 days. Past 3 days c/o myalgias, arthralgias, nasal congestion. Reports fever 103F at home. Complains of shortness of breath with exertion. Has been using albuterol inhaler twice a day with limited relief. Reports her mother had flu recently. Denies recent travel. Patient states recently stopped smoking 2 weeks ago and has been using nicotine patch. Denies diaphoresis, N/V/D/C, MEADOWS, dizziness, syncope, vision changes, neck pain, CP, orthopnea, palpitations, sore throat, choking, otalgia, rhinorrhea, abdominal pain, paresthesias, weakness, extremity weakness, extremity edema, rashes, urinary symptoms. Admission Exam Per Admitting Provider Physical Exam: General: no acute distress, WDWN Head: normocephalic, atraumatic Eyes: PERRL, EOM's intact, conjunctiva non-injected, anicteric ENT: normal inspection external ears, nose, mucous membranes moist Neck: supple, trachea midline Lungs: clear, no respiratory distress, R: 20, 91% on RA, faint wheezing CV: RRR, no murmur, no pretibial edema Abd: normal BS, soft, non-tender Ext: no cyanosis, no calf tenderness Neuro: A&O x 3, no focal deficits noted, normal affect Skin: warm, dry Principal Diagnosis Influenza B, acute bronchitis, COPD, nonobstructive CAD Discharge Exam Constitutional well developed and well nourished; no acute distress and not ill appearing Eyes PERRL, conjunctivae normal, anicteric sclerae ENMT external ear and nose normal, oropharynx normal Neck trachea midline, no thyromegaly Respiratory normal respiratory effort; no respiratory distress Auscultation: lungs clear to auscultation bilaterally; no crackles and no wheezes (Mostly on the right side and at the base) Cardiovascular Rate/Rhythm: regular rate and regular rhythm Heart Sounds: no murmur Gastrointestinal (Abdomen) Inspection/Auscultation: abdomen normal to inspection and normal bowel sounds Percussion/Palpation: abdomen soft; abdomen nontender Neurologic patellar DTR's 2+ bilat, sensation intact Lymphatic no cervical or axillary lymphadenopathy Discharge Data Allergies Allergy/AdvReac Type Severity Reaction Status Date / Time latex Allergy Mild RASH Verified 11/05/19 10:56 Iodinated Contrast Media Allergy Unknown . Verified 11/05/19 10:56 Penicillins Allergy Unknown Unknown Verified 11/05/19 10:56 varenicline AdvReac Severe NAUSEA Verified 11/05/19 10:56 benzalkonium chloride AdvReac Intermediate VERTIGO Verified 11/05/19 10:56 ibuprofen AdvReac Intermediate ACID REFLEX Verified 11/05/19 10:56 ofloxacin AdvReac Intermediate VERTIGO Verified 11/05/19 10:56 Corticosteroids AdvReac Unknown [email or web address] Verified 11/05/19 10:56 (Glucocorticoids) and hyper [id number] Allergy Severe ANAPHYLAXIS Uncoded 11/05/19 10:56 Consultations 11/05/19 13:47 ED Decision to Admit Stat Hospital Course (1) Influenza B: Pt is 69 y/o F with PMH COPD, nocturnal hypoxemia (not on oxygen), CKD III, HTN, HLD, PVD, obstructive CAD, chronic diastolic heart failure, GERD, anxiety, depression, chronic anemia presented to ER with complaint of fever, nonproductive cough, SOB x 3 days. Influenza B was positive without any chest x-ray finding of pneumonia Received intravenous NSS, Decadron 10 mg IV, Tylenol IV, hour-long nebulizer treatment, Mucinex Has been on Tamiflu 30 mg twice daily for renal dosing Scheduled DuoNebs Supplemental oxygen as needed Condition got somewhat worse today with cough and shortness of breath on exertion Has had fever of 38.5 last night We will get chest x-ray to rule out any pneumonia Has been on azithromycin Clinically a lot better and denies any shortness of breath with exertion Will be discharged home this afternoon (2) SOB (shortness of breath): As above (3) COPD (chronic obstructive pulmonary disease): H/O nocturnal hypoxemia not on oxygen at bedtime Does not have any COPD exacerbation Symptoms are due to flu Duo nebs Supplemental oxygen as needed Started on oral azithromycin for bronchitis with history of COPD Will continue azithromycin for 5 days in total (4) Nonobstructive atherosclerosis of coronary artery: No chest pain Continue aspirin, statin, diltiazem (5) CKD (chronic kidney disease), stage III: Cr: 1.23. Baseline:1 -Monitor renal functions -Avoid nephrotoxic agents when possible Creatinine level has been normalized (6) HLD (hyperlipidemia): -Continue atorvastatin, Zetia (7) Anxiety: H/O anxiety/depression -Continue sertraline, bupropion (8) GERD (gastroesophageal reflux disease): -Continue PPI (9) Tobacco use: -Patient recently stopped smoking 2 weeks ago -Nicotine patch DVT Prophylaxis -SCDs Full Code as per discussion with pt Follows with Dr Downey for routine care Total Time Total Time Spent Total Time Spent (In Minutes): 35 minutes Total Time Includes: Examination of the Patient, Discharge Planning and Medication Reconciliation Discharge Plan Discharge Items Patient Disposition: Home - Self-Care Reason For Visit: INFLUENZA Discharge Diagnosis: Influenza B, acute bronchitis, COPD, nonobstructive CAD Condition on Discharge: Good Activity: Resume your previous activity Non-emergency contact: Primary Care Provider Call non-emergency contact if: you have any medication questions Follow-up/Referrals: Cedric Downey MD [Primary Care Provider] - 11/12/19 11:25 am (Dr. Amber Almendarez will be seeing you for hospital discharge follow up. [facility] ) Diet: Heart Healthy Addtl Attending Provider Instructions: Please use mask if you are still having cough Try to maintain distance of 6 feet or above from a person who has been coughing Pending Studies at Discharge: No Stand-Alone Forms: My [employer], Smoking Cessation Medications and DC Order Prescriptions: New azithromycin 500 mg tablet 500 mg PO DAILY 2 Days Qty: 2 RF: 0 Continued bupropion HCl 100 mg tablet sustained-release 12 hr 100 mg PO DAILY RF: 0 albuterol sulfate 90 mcg/actuation HFA aerosol inhaler 2 puff INHALATION Q4H PRN (Reason: Shortness Of Breath Or Wheezing) RF: 0 alendronate 70 mg tablet 70 mg PO WK RF: 0 ezetimibe 10 mg tablet 10 mg PO DAILY RF: 0 hydrocodone-acetaminophen 5-325 mg tablet 1 tab PO QID PRN (Reason: Pain) RF: 0 sertraline 100 mg tablet 150 mg PO HS RF: 0 omeprazole 40 mg capsule,delayed release(DR/EC) 40 mg PO QAM RF: 0 aspirin 81 mg Tablet,Delayed Release (Dr/Ec) 81 mg PO QAM RF: 0 amitriptyline 10 mg tablet 20 mg PO PM RF: 0 calcium carbonate [Calcium 600] 600 mg calcium (1,500 mg) Tablet 600 mg PO QAM RF: 0 cyclobenzaprine 5 mg Tablet 5 mg PO TID PRN (Reason: Muscle Spasm) RF: 0 nitroglycerin 0.4 mg Tablet, Sublingual 0.4 mg sublingual UD 30 Days Qty: 25 RF: 0 atorvastatin 40 mg Tablet 40 mg PO QAM RF: 0 Anoro Ellipta 62.5-25 mcg/actuation blister with device 1 ea INHALATION DAILY RF: 0 nicotine 7 mg/24 hr Patch 24 Hour 14 mg transdermal QAM Qty: 14 RF: 1 diltiazem HCl 120 mg Capsule,Extended Release 24hr 120 mg PO QAM Qty: 30 RF: 1 gabapentin 300 mg Capsule 300 mg PO TID Qty: 90 RF: 0 Discharge Orders: Discharge Order (Routine); Ordered 11/09/19 Ordered By: Roslyn Arguello Admission Data Admit Date/Time: 11/07/19 13:21 Attending Provider: Roslyn Arguello Admit Provider: Laurent Ambrose Primary Care Provider: Cedric Downey Other Providers: Laurent Ambrose ; Cedric Solis Other Interventions: Discharge Summary Assessment (RN) Last Done: 11/09/19 12:45 DC Date/Time DO NOT enter until pt leaves facility: 11/09/19 12:58
== END 2019-11-09 12:58 | disposition home or self-care (01) | DRG 194 ==
LOC: ED 09:51 → 2W 09:51 → SUATTDRO 13:59 → 2W 17:08

== ENCOUNTER 2023-04-10 13:57 | Observation (INO) ==
[2023-04-10] MEDS ORDERED: SODIUM CHLORIDE 0.9% 1000ML 1,000 ML IV SCH (14:30)
[2023-04-10] MEDS ORDERED: ACETAMINOPHEN 1,000 MG/100 ML VIAL IV STA (14:30)
[2023-04-10] MEDS ORDERED: ONDANSETRON INJ 2 MG/ML 2 ML VIAL IV STA (14:30)
[2023-04-10] MEDS ORDERED: MoRPHine SULFATE 2 MG/ML CARP IV STA ×2 (14:30→16:42)
--- NOTE | 2023-04-10 14:39 | Emergency Department Note ---
Impression & Plan Weakness, Falling, Anemia, Acute head trauma, History of lumbar surgery, Hyponatremia ED Provider Note NAME: NAOMI ARANA AGE: 72 SEX: F : 1950 ARRIVES VIA: Ambulance INFORMANT: [Patient][ems] ED PROVIDER(S): [Cb Granger MD] CHIEF COMPLAINT: Fall HISTORY OF PRESENT ILLNESS: The patient is a 72-year-old female who states that she was discharged from [facility]hab about 5 days ago. She had undergone lumbar surgery. The patient did notice some right leg weakness at discharge and while she was at [facility] but things have worsened since being home. She has fallen several times. Today's fall caused her to be on the floor for a while and she did strike her head. She complains of pain from the right hip down to the right leg/foot. She states the pain seems to radiate. She feels her right leg is weak and this may be why she falls although she does not remember exactly why she fell today. There is a contusion to the right forehead from her fall. She has been drinking adequately, there has been no fever, cough or congestion, no abdominal pain. She states that her right knee seems sore from the fall, her lower back seems more sore since she fell. PMHx/PSHx: See Below SOCIAL HISTORY: See Below. PHYSICAL EXAM: GENERAL: Patient is in no acute distress. HEENT: There is a 4 cm contusion to the right forehead, no laceration requiring repair. Mucous membranes seem dry. NECK: No stridor, no adenopathy, diffusely mildly tender C-spine, no step-offs, trachea is midline. LUNGS: Clear to auscultation bilaterally, no wheeze, no rhonchi, breath sounds equal. HEART: Without murmurs gallops or rubs, regular rate and rhythm. ABDOMEN: Soft, nontender, bowel sounds positive, no peritonitis. EXTREMITIES: No cyanosis or edema, full range of motion of all the joints without pain or difficulty. There appears to be a contusion to the anterior right patella, no joint effusion or real tenderness with my exam. NEUROLOGIC: Awake and alert, the patient does have some weakness when trying to lift the right leg off the bed. The left leg seems stronger. No upper extremity drift, no speech slur or facial droop, no cerebellar dysfunction in the upper extremities SKIN: No rash, no jaundice, no diaphoresis. Back: The patient's lumbar incision looks to be healing well, no surrounding erythema. Rectal: Brown stool, heme-negative. DIFFERENTIAL DIAGNOSIS: Intracranial bleeding, skull fracture, C-spine injury, hip or knee fracture, lumbar spine injury, dehydration, anemia, electrolyte imbalance, viral illness, UTI, among others. EMERGENCY DEPARTMENT COURSE/PROCEDURES: Prior/Outside records reviewed: Recent [facility] discharge summary. ECG per my interpretation: Indication was weakness and falling. The ECG shows a normal sinus rhythm with a rate of 83. LVH is present. There is poor R wave progression. There is no ST elevation, no PVCs. The QTc is 432. Continuous Cardiac Monitoring per my interpretation: An order was placed for continuous cardiac monitoring. The monitor shows a rate of 92 with normal sinus rhythm. MEDICAL DECISION MAKING: There is a mild leukocytosis, this could be consistent with infection or the stress of her current situation. The patient was anemic with a hemoglobin of 9.6. I did perform a rectal exam, the stool was brown and heme-negative. There was a normal platelet count. Sodium was low at 132, no renal failure. There was an elevation to the alk phos, the remaining liver enzymes are unremarkable. Total CK was elevated at 393, this is consistent with her falling and being on the floor for around an hour. Patient appeared to be in a euthyroid state. ECG showed a sinus rhythm, no ischemia. Cardiac enzyme testing x1 was not consistent with acute cardiac injury. Urinalysis did not show infection. COVID, influenza and RSV test were negative. Chest film per my review did not show pneumonia or CHF. Brain CT showed no acute bleed or mass effect. C-spine CT showed no acute fracture. Lumbar spine CT did show evidence for her recent surgery, no fractures. There was potential mild displacement of her synthetic disc however, this was to the left, the patient's symptoms are on the right. Right knee and right hip films were performed, no fractures per my review. The patient presents with falling since being discharged from [facility]. Her right leg is weaker than the other and may be the reason for her falls. She admits that this has been an ongoing issue since her surgery. The patient was given IV saline, 1 L. She received IV Zofran, IV morphine. A second dose of IV morphine was given. She was given IV Tylenol. I do think the patient deserves a hospital stay. She may require another stay at [facility]. Hopefully, her hydration status will improve with IV fluids, hopefully, this will also improve her lower sodium. I did speak with the patient and case management, the on-call hospitalist was consulted. DISPOSITION: Patient's presentation and findings warrant a hospital stay. Past Med/Surg History Medical History ACS (acute coronary syndrome) Anxiety Cervical spinal stenosis CKD (chronic kidney disease), stage III COPD (chronic obstructive pulmonary disease) Depression Diastolic dysfunction GERD (gastroesophageal reflux disease) HLD (hyperlipidemia) Lumbar spinal stenosis Nocturnal hypoxia reported secondary to COPD. Pt not on home oxygen HS secondary to reported insurance issues Nonobstructive atherosclerosis of coronary artery (2018) LAD and circumflex free of major disease. RCA with 40 to 50% mid right coronary stenosis and 40% stenosis at the takeoff of the PDA. NSTEMI (non-ST elevated myocardial infarction) Osteoarthritis Osteoporosis Palpitation Tobacco use Vasospastic angina Surgical History (Updated 04/10/23 @ 21:39 by Cb Granger MD) History of arthroscopy of right shoulder History of carpal tunnel surgery History of section History of cholecystectomy History of hysterectomy History of lumbar fusion S/P cervical spinal fusion Family History Sister Breast cancer Aunt Breast cancer Father Coronary heart disease Brother Hypertension Father Hypertension Social History Smoking Status: Former smoker Cigarettes Per Day: 10; Second Hand Exposure: No; Do You Dip or Chew Tobacco: No; Hx Alcohol Use: No Hx Substance Use: No Preferred Language: Hungarian Communication Ability: Effective Compensation Intern Required: No Beliefs That Will Affect Care: None Current Living Situation: Alone Feels Safe at Home: Yes Assistive Devices: None Allergies Allergies Allergy/AdvReac Type Severity Reaction Status Date / Time latex Allergy Mild RASH Verified 04/13/21 18:42 Iodinated Contrast Media Allergy Unknown . Verified 04/13/21 18:42 Penicillins Allergy Unknown Unknown Verified 04/13/21 18:42 varenicline AdvReac Severe NAUSEA Verified 04/13/21 18:42 benzalkonium chloride AdvReac Intermediate VERTIGO Verified 04/13/21 18:42 ibuprofen AdvReac Intermediate ACID REFLEX Verified 04/13/21 18:42 ofloxacin AdvReac Intermediate VERTIGO Verified 04/13/21 18:42 Corticosteroids AdvReac Unknown jittery Verified 04/13/21 18:42 (Glucocorticoids) and hyper [id number] Allergy Severe ANAPHYLAXIS Uncoded 04/13/21 18:50 Home Meds Home Medications Medication Instructions Recorded Confirmed amitriptyline 10 mg tablet 20 mg PO HS 09/20/18 04/10/23 aspirin 81 mg tablet,delayed 81 mg PO QAM 09/20/18 04/10/23 release hydrocodone 5 mg-acetaminophen 325 1 tab PO QID PRN Pain 09/20/18 04/10/23 mg tablet omeprazole 40 mg capsule,delayed 40 mg PO QAM 09/20/18 04/10/23 release sertraline 100 mg tablet 200 mg PO HS 09/20/18 04/10/23 calcium carbonate 600 mg calcium 600 mg PO QAM 01/02/19 04/10/23 (1,500 mg) tablet (Calcium) albuterol sulfate 90 mcg/actuation 2 puff inhalation Q4H PRN 11/05/19 04/10/23 aerosol inhaler Shortness Of Breath Or Wheezing alendronate 70 mg tablet 70 mg PO WK 11/05/19 04/10/23 ezetimibe 10 mg tablet (Zetia) 10 mg PO QAM 11/05/19 04/10/23 hydrochlorothiazide 12.5 mg capsule 12.5 mg PO MOWEFR 04/13/21 04/10/23 metoprolol succinate 25 mg 12.5 mg PO QAM 04/13/21 04/10/23 tablet,extended release 24 hr tizanidine 4 mg tablet 4 mg PO Q8H PRN Muscle Spasm 04/13/21 04/10/23 atorvastatin 80 mg tablet 80 mg PO DAILY 04/10/23 04/10/23 gabapentin 300 mg capsule 300 mg PO Q8H 04/10/23 04/10/23 galcanezumab-gnlm 120 mg/mL 120 mg subcut MONTHLY 04/10/23 04/10/23 subcutaneous pen injector (Emgality Pen) hydroxyzine HCl 25 mg tablet 25 mg PO Q6H PRN Anxiety 04/10/23 04/10/23 lisinopril 10 mg tablet 10 mg PO DAILY 04/10/23 04/10/23 Previous Rx's Medication Instructions Recorded nitroglycerin 0.4 mg sublingual 0.4 mg sublingual UD 30 days #25 01/03/19 tablet tabs Results & Data (ED) Vital Signs Vital Signs - 24 hr 04/10/23 14:03 04/10/23 15:27 Temperature 36.9 C Temperature Source Oral Pulse Rate 92 H Respiratory Rate 16 Respiratory Effort / Characteristics Non-Labored Respiratory Depth Normal Blood Pressure 131/69 Blood Pressure Mean 89 Pulse Oximetry 95 95 Oxygen Delivery Method Room Air Room Air Sepsis Recent Fever Within 48 Hours No Sepsis New/Unexplained Change in Mental Status No Sepsis Action Taken by Nursing No Action Required Home Medications Current Medication List: was personally reviewed by me Laboratory Data Attestation: I reviewed the patient's lab results. 04/10/23 14:10 04/10/23 14:10 Lab Results 04/10/23 04/10/23 04/10/23 Range/Units 14:10 14:10 14:10 WBC 11.25 H (4.8-10.8) K/ul RBC 3.13 L (4.20-5.40) M/uL Hgb 9.6 L (12.0-16.0) g/dl Hct 28.8 L (37.0-47.0) % MCV 92.0 (80.0-100.0) fL MCH 30.7 (25.0-34.0) pg MCHC 33.3 (32.0-36.0) g/dL RDW Std Deviation 42.5 (36.4-46.3) fL RDW Coeff of Melany 12.8 (11.5-14.5) % Plt Count 377 (130-400) K/uL MPV 9.5 (9.4-12.4) fL Immature Gran % (Auto) 0.5 % Neut % (Auto) 68.5 % Lymph % (Auto) 17.1 % Emanuel % (Auto) 10.9 % Eos % (Auto) 2.0 % Baso % (Auto) 1.0 % Neut # (Auto) 7.70 H (1.40-6.50) K/uL Lymph # (Auto) 1.92 (1.2-3.4) K/uL Emanuel # (Auto) 1.23 H (0.11-0.59) K/uL Eos # (Auto) 0.23 (0-0.50) K/uL Baso # (Auto) 0.11 (0-0.2) K/uL Immature Gran # (Auto) 0.06 (0.01-0.20) K/uL Sodium 132 L (136-145) mmol/L Potassium 4.3 (3.5-5.1) mmol/L Chloride 102 (98-107) mmol/L Carbon Dioxide 23 (21-32) mmol/L Anion Gap 7 (3-11) BUN 17 (6-23) mg/dl Creatinine 0.91 (0.6-1.2) mg/dl Est Cr Clr Drug Dosing 46.8 ml/min Est GFR ( Amer) 73.1 ml/min Est GFR (Non-Af Amer) 63.0 ml/min BUN/Creatinine Ratio 18.7 (10-20) Glucose 109 H (70-99(Fasting)) mg/dl Calcium 9.6 (8.6-10.3) mg/dl Magnesium 1.9 (1.7-2.4) mg/dl Total Bilirubin 0.4 (0.2-1.0) mg/dl AST 19 (13-39) U/L ALT 13 (7-52) U/L Alkaline Phosphatase 124 H (34-104) U/L Total Creatine Kinase 393 H (26-192) U/L Troponin I High Sens 6.0 (0-14) pg/ml Total Protein 7.4 (6.0-8.3) gm/dl Albumin 4.0 (3.4-5.0) gm/dl Globulin 3.4 (2.5-4.0) gm/dl Albumin/Globulin Ratio 1.2 (0.9-2) TSH 1.422 (0.300-4.500) uIu/ml Urine Color Urine Appearance (Clear) Urine pH (4.5-7.5) Ur Specific [place] (1.000-1.030) Urine Protein (Negative) Urine Glucose (UA) (Negative) Urine Ketones (Negative) Urine Blood (Negative) Urine Nitrite (Negative) Urine Bilirubin (Negative) Urine Urobilinogen (Negative) Ur Leukocyte Esterase (Negative) SARS-CoV-2 (PCR) (Negative) Influenza Type A (PCR) (Neg) Influenza Type B (PCR) (Neg) RSV (RT-PCR) (Neg) 04/10/23 04/10/23 Range/Units 15:16 15:20 WBC (4.8-10.8) K/ul RBC (4.20-5.40) M/uL Hgb (12.0-16.0) g/dl Hct (37.0-47.0) % MCV (80.0-100.0) fL MCH (25.0-34.0) pg MCHC (32.0-36.0) g/dL RDW Std Deviation (36.4-46.3) fL RDW Coeff of Melany (11.5-14.5) % Plt Count (130-400) K/uL MPV (9.4-12.4) fL Immature Gran % (Auto) % Neut % (Auto) % Lymph % (Auto) % Emanuel % (Auto) % Eos % (Auto) % Baso % (Auto) % Neut # (Auto) (1.40-6.50) K/uL Lymph # (Auto) (1.2-3.4) K/uL Emanuel # (Auto) (0.11-0.59) K/uL Eos # (Auto) (0-0.50) K/uL Baso # (Auto) (0-0.2) K/uL Immature Gran # (Auto) (0.01-0.20) K/uL Sodium (136-145) mmol/L Potassium (3.5-5.1) mmol/L Chloride (98-107) mmol/L Carbon Dioxide (21-32) mmol/L Anion Gap (3-11) BUN (6-23) mg/dl Creatinine (0.6-1.2) mg/dl Est Cr Clr Drug Dosing ml/min Est GFR ( Amer) ml/min Est GFR (Non-Af Amer) ml/min BUN/Creatinine Ratio (10-20) Glucose (70-99(Fasting)) mg/dl Calcium (8.6-10.3) mg/dl Magnesium (1.7-2.4) mg/dl Total Bilirubin (0.2-1.0) mg/dl AST (13-39) U/L ALT (7-52) U/L Alkaline Phosphatase (34-104) U/L Total Creatine Kinase (26-192) U/L Troponin I High Sens (0-14) pg/ml Total Protein (6.0-8.3) gm/dl Albumin (3.4-5.0) gm/dl Globulin (2.5-4.0) gm/dl Albumin/Globulin Ratio (0.9-2) TSH (0.300-4.500) uIu/ml Urine Color Yellow Urine Appearance Clear (Clear) Urine pH 5.5 (4.5-7.5) Ur Specific [place] 1.010 (1.000-1.030) Urine Protein Negative (Negative) Urine Glucose (UA) Negative (Negative) Urine Ketones Negative (Negative) Urine Blood Negative (Negative) Urine Nitrite Negative (Negative) Urine Bilirubin Negative (Negative) Urine Urobilinogen Negative (Negative) Ur Leukocyte Esterase Negative (Negative) SARS-CoV-2 (PCR) NEGATIVE (Negative) Influenza Type A (PCR) Negative (Neg) Influenza Type B (PCR) Negative (Neg) RSV (RT-PCR) Negative (Neg) Administered Medications Amitriptyline HCl (Amitriptyline Hcl 10 Mg Tab) 20 mg PO HS KELSIE Stop: 05/10/23 20:59 Last Admin: 04/10/23 20:41 Dose: 20 mg Documented By: JESUS Gabapentin (Gabapentin 600 Mg Tab) 600 mg PO HS KELSIE Stop: 05/10/23 20:59 Last Admin: 04/10/23 20:41 Dose: 600 mg Documented By: JESUS Sertraline HCl (Sertraline Hcl 100 Mg Tablet) 200 mg PO HS KELSIE Stop: 05/10/23 20:59 Last Admin: 04/10/23 20:41 Dose: 200 mg Documented By: JESUS Discontinued Medications Sodium Chloride (Nss 1000ml) 1,000 mls @ 999 mls/hr IV .Q1H1M KELSIE Stop: 04/10/23 15:30 Last Infusion: 04/10/23 17:16 Dose: 0 mls/hr Documented By: Admin: 04/10/23 15:21 Dose: 999 mls/hr Documented By: JESUS Acetaminophen (Ofirmev) 1,000 mg in 100 mls @ 400 mls/hr IV NOW STA Stop: 04/10/23 14:44 Last Infusion: 04/10/23 16:00 Dose: 0 mls/hr Documented By: Admin: 04/10/23 15:24 Dose: 400 mls/hr Documented By: JESUS Morphine Sulfate (Morphine Sulfate 2 Mg/Ml Carp) 2 mg IV NOW STA Stop: 04/10/23 14:31 Last Admin: 04/10/23 15:23 Dose: 2 mg Documented By: JESUS Morphine Sulfate (Morphine Sulfate 2 Mg/Ml Carp) 2 mg IV NOW STA Stop: 04/10/23 16:43 Last Admin: 04/10/23 17:31 Dose: 2 mg Documented By: JESUS Ondansetron HCl (Ondansetron Inj 2 Mg/Ml 2 Ml Vial) 4 mg IV NOW STA Stop: 04/10/23 14:31 Last Admin: 04/10/23 15:22 Dose: 4 mg Documented By: JESUS Imaging Data Radiologist's Impression: Cervical Spine CT 04/10/23 14:30 CT SCAN OF THE CERVICAL SPINE CLINICAL HISTORY: Fall. COMPARISON STUDY: Cervical spine radiographs dated 09/01/2012. TECHNIQUE: CT scan of the cervical spine is performed from the skull base to the upper thoracic spine. Images are reviewed in the axial, sagittal, and coronal planes. IV contrast was not administered for this examination. A dose lowering technique was utilized adhering to the principles of ALARA. The examination is degraded by streak artifact from metallic spinal hardware. FINDINGS: Skeletal structures: The skeletal structures are osteopenic. There is no evidence of fracture or subluxation involving the cervical spine. Vertebral body height and alignment are maintained. There is straightening of the cervical lordosis. Anterior osteophytes are seen throughout. There is postsurgical change from laminectomy and posterior fusion seen from C3-T1. Interpedicular screws are present at all levels with the exception of C7. Lucency around the interpedicular screws and 3 cc suggest loosening. The odontoid process and lateral masses are intact. The atlantoaxial articulation is preserved noting productive degenerative change. The spinous processes appear intact. Intervertebral discs: There is moderate to severe multilevel degenerative disc space narrowing seen at all levels between C3-C4 and C6-C7. There is multilevel endplate sclerosis. Central canal: Grossly patent. Posterior disc osteophyte complexes are noted at C3-C4, C5-C6, and C6-C7. Soft tissues: The prevertebral and paraspinous soft tissues are within normal limits. There is mild atherosclerotic calcification of the carotid bulbs. Calvarium: The visualized calvarium at the skull base appears intact. Brain parenchyma: Partially visualized brain parenchyma at the skull base is within normal limits. Sinuses and mastoids: The visualized paranasal sinuses are clear. The mastoid air cells are well pneumatized. Lung apices: Clear as visualized. IMPRESSION: 1. There is no evidence of cervical spine fracture or subluxation. 2. Postsurgical change as above. 3. Lucency around the interpedicular screws in C3 suggests loosening. ACT 112: Negative or not required by law. Electronically signed by: Cb Bennett M.D. 04/10/2023 4:11 PM Chest X-Ray 04/10/23 14:30 XR chest 1V not portable HISTORY: 72 years-old Female weakness acute weakness. COMPARISON: 04/13/2021 TECHNIQUE: AP view of the chest FINDINGS: The heart is mildly enlarged. Atherosclerosis of the aorta. No pneumothorax, pleural effusion, airspace consolidation or pulmonary edema. Cervicothoracic fusion hardware. Degenerative changes of the shoulders and spine. IMPRESSION: No acute process. ACT 112: Negative or not required by law. The above report was generated using voice recognition software. It may contain grammatical, syntax or spelling errors. Electronically signed by: Eladio Pascual M.D. 04/10/2023 4:[address] 04/10/23 14:30 CT head/brain wo con CLINICAL HISTORY: fall, trauma Technique: Contiguous axial CT images of the head were acquired from the base of the skull to the vertex without intravenous contrast administration. Images were viewed in brain, subdural and bone windows. Automated dose lowering techniques and/or adjustment according to patient size were utilized for this exam. Comparison: Comparison is made to CT head 04/13/2021 Findings: The ventricles, basal cisterns, and cerebral sulci are normal. There is no acute intracranial hemorrhage or evidence of acute territorial infarction. Neither mass effect, shift of the midline structures, nor abnormal extra-axial fluid collections are shown. Imaged portions of the paranasal sinuses and mastoid air cells are clear. The orbits appear normal. There are no acute fractures of the calvaria or scalp swelling. Impression: No acute intracranial hemorrhage, no evidence of acute territorial infarction or other acute intracranial disease process. ACT 112: Negative or not required by law. Electronically signed by: Jonathan Duarte M.D. 04/10/2023 4:11 PM Hip/Pelvis X-Ray 04/10/23 14:30 XR hip RT 2V w pelvis HISTORY: 72 years-old Female fall, pain acute pain of the pelvis or right hip status post fall COMPARISON: 09/20/2018 TECHNIQUE: AP view the pelvis with 2 views of the right hip FINDINGS: Region hardware with discectomy changes of the lower lumbar spine. Mild to moderate osteoarthritis of the hips. No acute fracture, dislocation or avascular necrosis. Unremarkable soft tissues. IMPRESSION: No acute fracture or dislocation. ACT 112: Negative or not required by law. The above report was generated using voice recognition software. It may contain grammatical, syntax or spelling errors. Electronically signed by: Eladio Pascual M.D. 04/10/2023 4:38 PM Knee X-Ray 04/10/23 14:30 XR knee RT 3V HISTORY: 72 years-old Female fall, pain acute right knee pain status post fall COMPARISON: 02/01/2017 TECHNIQUE: 3 views of the right knee FINDINGS: No acute fracture, dislocation or significant osteoarthritis. Degenerative spurring of the patella. No large joint effusion. Demineralized appearance of the bones. IMPRESSION: No acute fracture or dislocation. ACT 112: Negative or not required by law. The above report was generated using voice recognition software. It may contain grammatical, syntax or spelling errors. Electronically signed by: Eladio Pascual M.D. 04/10/2023 4:[address] 04/10/23 14:30 CT lumbar spine wo con HISTORY: 72 years-old Female fall, acute low back pain status post fall pain status post fall COMPARISON: CTA chest 09/05/2019, lumbar spine radiograph 09/20/2018 TECHNIQUE: Multiple axial CT images of the lumbar spine were obtained without the use of IV contrast. A dose lowering technique was used consistent with the principals of ALARA. FINDINGS: Atherosclerosis of the aorta and branch vessels. 3 mm nonobstructing left renal calculus. Mild dilatation of the bilateral ureters. No acute intrapelvic abnormality identified. Cholecystectomy. Posterior bilateral marya and screw fusion hardware at L4-S1 with associated discectomy changes. The hardware appears intact. Streak artifact from hardware limits the study. The L5-S1 disc spacer is positioned eccentrically within the left lateral aspect of intervertebral disc space well-defined posterior postoperative fluid collection. Moderate degeneration of the SI joints. No definite acute fracture identified. Suboptimal evaluation of the central canal and neural foramina are CT technique. IMPRESSION: 1. No acute fracture or subluxation identified. 2. Postoperative changes of the lumbar spine with posterior interbody marya and screw fusion and discectomy at L4-S1. The L5-S1 disc spacer is positioned eccentrically within the left lateral aspect of the intervertebral disc space. 3. Left nephrolithiasis. ACT 112: Negative or not required by law. The above report was generated using voice recognition software. It may contain grammatical, syntax or spelling errors. Electronically signed by: Eladio Pascual M.D. 04/10/2023 4:30 PM Discharge Plan Visit Data Chief Complaint: Fall ED Provider: Cb Granger Discharge Problem: Weakness, Falling, Anemia, Acute head trauma, History of lumbar surgery, Hyponatremia Patient Disposition: Admitted As Inpatient Condition: Fair Discharge Instructions Interventions: ED Discharge Assessment Last Done: 04/10/23 19:51
[2023-04-10 14:56] LABS: Basophils # (auto) 0.11 K/uL (0-0.2); Eosinophils # (auto) 0.23 K/uL (0-0.50); Hematocrit (blood only) 28.8 % (37.0-47.0); Hemoglobin 9.6 g/dl (12.0-16.0); Immature Granulocytes # (auto) 0.06 K/uL (0.01-0.20); Immature Granulocytes % (auto) 0.5 %; Lymphocytes # (auto) 1.92 K/uL (1.2-3.4); Lymphocytes % (auto) 17.1 %; Mean Corpuscular Hemoglobin 30.7 pg (25.0-34.0); Mean Corpuscular Hgb Conc 33.3 g/dL (32.0-36.0); Mean Platelet Volume 9.5 fL (9.4-12.4); Monocytes # (auto) 1.23 K/uL (0.11-0.59); Monocytes % (auto) 10.9 %; Neutrophils % (auto) 68.5 %; Platelet Count 377 K/uL (130-400); RDW Coefficient of Variation 12.8 % (11.5-14.5); RDW Standard Deviation 42.5 fL (36.4-46.3); Red Blood Count 3.13 M/uL (4.20-5.40); White Blood Count 11.25 K/ul (4.8-10.8)
[2023-04-10 15:11] LABS: Bilirubin,Total 0.4 mg/dl (0.2-1.0); Calcium 9.6 mg/dl (8.6-10.3); Magnesium 1.9 mg/dl (1.7-2.4); Potassium 4.3 mmol/L (3.5-5.1)
[2023-04-10 15:17] LABS: Albumin Globulin Ratio 1.2 (0.9-2); BUN Creatinine Ratio 18.7 (10-20); Creatinine Clr Calc Pharmacy 46.8 ml/min; Est GFR (African American) 73.1 ml/min; Globulin 3.4 gm/dl (2.5-4.0); Total Protein 7.4 gm/dl (6.0-8.3)
[2023-04-10 15:30] LABS: Appearance Urine Clear (Clear); Bilirubin Urine Negative (Negative); Blood Urine Negative (Negative); Color Urine Yellow; Glucose Urine UA Negative (Negative); Ketones Urine Negative (Negative); Leukocyte Esterase Urine Negative (Negative); Nitrite Urine Negative (Negative); Protein Urine Negative (Negative); Urobilinogen Urine Negative (Negative); pH Urine 5.5 (4.5-7.5)
[2023-04-10 16:05] LABS: Influenza A virus by PCR Negative (Neg); Influenza B virus by PCR Negative (Neg); RSV by PCR Negative (Neg); SARS CoV2 RNA(COVID-19) Ceph NEGATIVE (Negative)
--- NOTE | 2023-04-10 16:12 | CT Scan Report ---
CT head/brain wo con CLINICAL HISTORY: fall, trauma Technique: Contiguous axial CT images of the head were acquired from the base of the skull to the sarika dom without intravenous contrast administration. Images were viewed in brain, subdural and bone [facility]. Automated dose lowering techniques and/or adjustment according to patient size were utilized for this exam. Comparison: Comparison is made to CT head 04/13/2021 Findings: The ventricles, basal cisterns, and cerebral sulci are normal. There is no acute intracranial hemorrh age or evidence of acute territorial infarction. Neither mass effect, shift of the midline structures , nor abnormal extra-axial fluid collections are shown. Imaged portions of the paranasal sinuses and mastoid air cells are clear. The orbits appear normal. There are no acute fractures of the calvaria or scalp swelling. Impression: No acute intracranial hemorrhage, no evidence of acute territorial infarction or other acute intracra nial disease process. ACT 112: Negative or not required by law. Electronically signed by: Jonathan Duarte M.D. 04/10/2023 4:11 PM
--- NOTE | 2023-04-10 16:13 | CT Scan Report ---
CT SCAN OF THE CERVICAL SPINE CLINICAL HISTORY: Fall. COMPARISON STUDY: Cervical spine radiographs dated 09/01/2012. TECHNIQUE: CT scan of the cervical spine is performed from the skull base to the upper thoracic spine . Images are reviewed in the axial, sagittal, and coronal planes. IV contrast was not administered fo r this examination. A dose lowering technique was utilized adhering to the principles of ALARA. The examination is degraded by streak artifact from metallic spinal hardware. FINDINGS: Skeletal structures: The skeletal structures are osteopenic. There is no evidence of fracture or subl uxation involving the cervical spine. Vertebral body height and alignment are maintained. There is st raightening of the cervical lordosis. Anterior osteophytes are seen throughout. There is postsurgical change from laminectomy and posterior fusion seen from C3-T1. Interpedicular screws are present at a ll levels with the exception of C7. Lucency around the interpedicular screws and 3 cc suggest looseni ng. The odontoid process and lateral masses are intact. The atlantoaxial articulation is preserved no ting productive degenerative change. The spinous processes appear intact. Intervertebral discs: There is moderate to severe multilevel degenerative disc space narrowing seen a t all levels between C3-C4 and C6-C7. There is multilevel endplate sclerosis. Central canal: Grossly patent. Posterior disc osteophyte complexes are noted at C3-C4, C5-C6, and C6- C7. Soft tissues: The prevertebral and paraspinous soft tissues are within normal limits. There is mild a therosclerotic calcification of the carotid bulbs. Calvarium: The visualized calvarium at the skull base appears intact. Brain parenchyma: Partially visualized brain parenchyma at the skull base is within normal limits. Sinuses and mastoids: The visualized paranasal sinuses are clear. The mastoid air cells are well pneu matized. Lung apices: Clear as visualized. IMPRESSION: 1. There is no evidence of cervical spine fracture or subluxation. 2. Postsurgical change as above. 3. Lucency around the interpedicular screws in C3 suggests loosening. ACT 112: Negative or not required by law. Electronically signed by: Cb Bennett M.D. 04/10/2023 4:11 PM
--- NOTE | 2023-04-10 16:32 | CT Scan Report ---
CT lumbar spine wo con HISTORY: 72 years-old Female fall, acute low back pain status post fall pain status post fall COMPARISON: CTA chest 09/05/2019, lumbar spine radiograph 09/20/2018 TECHNIQUE: Multiple axial CT images of the lumbar spine were obtained without the use of IV contrast. A dose lowering technique was used consistent with the principals of MARC. FINDINGS: Atherosclerosis of the aorta and branch vessels. 3 mm nonobstructing left renal calculus. Mild dilata tion of the bilateral ureters. No acute intrapelvic abnormality identified. Cholecystectomy. Posterior bilateral marya and screw fusion hardware at L4-S1 with associated discectomy changes. The [place] rdware appears intact. Streak artifact from hardware limits the study. The L5-S1 disc spacer is posit ioned eccentrically within the left lateral aspect of intervertebral disc space well-defined posterio r postoperative fluid collection. Moderate degeneration of the SI joints. No definite acute fracture identified. Suboptimal evaluation of the central canal and neural foramina are CT technique. IMPRESSION: 1. No acute fracture or subluxation identified. 2. Postoperative changes of the lumbar spine with posterior interbody marya and screw fusion and discec vu at L4-S1. The L5-S1 disc spacer is positioned eccentrically within the left lateral aspect of th e intervertebral disc space. 3. Left nephrolithiasis. ACT 112: Negative or not required by law. The above report was generated using voice recognition software. It may contain grammatical, syntax o r spelling errors. Electronically signed by: Eladio Pascual M.D. 04/10/2023 4:30 PM
--- NOTE | 2023-04-10 16:36 | XRay Report ---
XR chest 1V not portable HISTORY: 72 years-old Female weakness acute weakness. COMPARISON: 04/13/2021 TECHNIQUE: AP view of the chest FINDINGS: The heart is mildly enlarged. Atherosclerosis of the aorta. No pneumothorax, pleural effusion, airspa ce consolidation or pulmonary edema. Cervicothoracic fusion hardware. Degenerative changes of the janelle ulders and spine. IMPRESSION: No acute process. ACT 112: Negative or not required by law. The above report was generated using voice recognition software. It may contain grammatical, syntax o r spelling errors. Electronically signed by: Eladio Pascual M.D. 04/10/2023 4:35 PM
--- NOTE | 2023-04-10 16:37 | XRay Report ---
XR knee RT 3V HISTORY: 72 years-old Female fall, pain acute right knee pain status post fall COMPARISON: 02/01/2017 TECHNIQUE: 3 views of the right knee FINDINGS: No acute fracture, dislocation or significant osteoarthritis. Degenerative spurring of the patella. N o large joint effusion. Demineralized appearance of the bones. IMPRESSION: No acute fracture or dislocation. ACT 112: Negative or not required by law. The above report was generated using voice recognition software. It may contain grammatical, syntax o r spelling errors. Electronically signed by: Eladio Pascual M.D. 04/10/2023 4:36 PM
--- NOTE | 2023-04-10 16:39 | XRay Report ---
XR hip RT 2V w pelvis HISTORY: 72 years-old Female fall, pain acute pain of the pelvis or right hip status post fall COMPARISON: 09/20/2018 TECHNIQUE: AP view the pelvis with 2 views of the right hip FINDINGS: Region hardware with discectomy changes of the lower lumbar spine. Mild to moderate osteoarthritis of the hips. No acute fracture, dislocation or avascular necrosis. Unremarkable soft tissues. IMPRESSION: No acute fracture or dislocation. ACT 112: Negative or not required by law. The above report was generated using voice recognition software. It may contain grammatical, syntax o r spelling errors. Electronically signed by: Eladio Pascual M.D. 04/10/2023 4:38 PM
--- NOTE | 2023-04-10 17:08 | History & Physical Report ---
Date of Service April 10, 2023 Assessment & Plan (1) Multiple falls: Plan: This is a 72 y/o female with a history of COPD, CKD3a, diastolic dysfunction, dyslipidemia, HTN, osteoporosis, cervical stenosis s/p PCDF, lumbar stenosis s/p recent decompression/fusion who presents to the ED today via EMS as a fall at home, down on the ground for >1 hr per pt. Pt was discharged from rehab five days ago but has had multiple falls at home and feels like her pain is worse since surgery. She has been taking the hydrocodone consistently every six hours and using the muscle relaxer at bedtime. These medications may be contributing to her recurrent falls. Her CT shows the L5-S1 disc spacer "eccentrically positioned within left lateral aspect of the intravertebral disc space" but it is unclear if this would correlate with her symptoms. She lives alone with help from her neighbors but no one with her consistently. - Admit for observation and further evaluation in med surg - unclear if she is safe to return home without further rehab - Consult PT/OT for additional recommendations - Fall precautions - Change pain regimen - add scheduled acetaminophen 650 mg Q8 hours, decrease hydrocodone-acetaminophen to every 8 hours PRN (not scheduled), and stop the tizanidine. Will increase gabapentin to 600 mg HS, 300 mg BID as she has found this helpful at lower doses. - Post-operative anemia required one unit of PRBCs at [facility] - will monitor for stability during this admission, recheck CBC in AM after IVF given in ED. (2) Ambulatory dysfunction: (3) Lumbar spinal stenosis: (4) CKD (chronic kidney disease), stage III: (5) Nonobstructive atherosclerosis of coronary artery: (6) COPD (chronic obstructive pulmonary disease): (7) Depression: Plan Continue other home medications as appropriate. Pt seen and reviewed with collaborating physician, Dr. Todd. Plan of care discussed and as outlined above. Code Status: Full code DVT prophylaxis: SCDs for now, trend H&H Sophy Mayen PA-C History of Present Illness Chief Complaint: Falls Primary Care Provider: Cedric Downey MD This is a 72 y/o female with a history of COPD, CKD3a, diastolic dysfunction, dyslipidemia, HTN, osteoporosis, cervical stenosis s/p PCDF, lumbar stenosis s/p recent decompression/fusion, and other medical history as listed below who presents to the ED today after recurrent falls at home since being discharged from [facility] last week. Pt underwent lumbar surgery on 03/15/[address] Ly at [facility]. Post-operatively she developed fever and hypotension with suspicion of septic shock - she received multiple fluid boluses without improvement so she was transferred to the ICU and started on pressors. She was also determined to have a component of acute blood loss anemia (Hgb dropped to 7.2) so she was transfused with one unit with improvement of her pressure and pressors able to be discontinued. She was covered with broad spectrum antibiotics. No clear source ultimately determined. She was transferred to [facility] for rehab on 03/20/23 and discharged on 04/05/23. However, since being home, pt has continued to have issues with pain and weakness in her legs and has fallen multiple times, some of which she does not remember clearly. Today, she fell and hit her head, was unable to get up and call for help for at least an hour. Brought in via EMS after most recent fall. Since surgery, she has noted increased lower back pain, describing it as sharper than pre-op. Pain radiating down legs - worse on left before surgery but now worse on right. Her legs have been giving out at times - feels like right leg is more weak than left. She does have some urinary incontinence but this is a chronic issue that has not worsened since surgery. Incontinence associated with sneezing, laughing, or waiting too long to go to the bathroom. Subjective fever and chills for the last few days - hasn't checked temp. Appetite decreased but denies nausea or vomiting. Moving bowels okay since being home - had some constipation at [facility] that improved with stool softeners. No longer needing. Still taking hydrocodone every six hours for pain. Reports that she is still taking the tizanidine at bedtime to help her sleep even though she was supposed to stop it (although she is unsure why). Allergies Allergy/AdvReac Type Severity Reaction Status Date / Time latex Allergy Mild RASH Verified 04/13/21 18:42 Iodinated Contrast Media Allergy Unknown . Verified 04/13/21 18:42 Penicillins Allergy Unknown Unknown Verified 04/13/21 18:42 varenicline AdvReac Severe NAUSEA Verified 04/13/21 18:42 benzalkonium chloride AdvReac Intermediate VERTIGO Verified 04/13/21 18:42 ibuprofen AdvReac Intermediate ACID REFLEX Verified 04/13/21 18:42 ofloxacin AdvReac Intermediate VERTIGO Verified 04/13/21 18:42 Corticosteroids AdvReac Unknown jittery Verified 04/13/21 18:42 (Glucocorticoids) and hyper DM-APAP-CPM Allergy Severe ANAPHYLAXIS Uncoded 04/13/21 18:50 Home Medications Medication Instructions Recorded Confirmed Type amitriptyline 10 mg tablet 20 mg PO HS 09/20/18 04/10/23 History aspirin 81 mg tablet,delayed 81 mg PO QAM 09/20/18 04/10/23 History release hydrocodone 5 mg-acetaminophen 325 1 tab PO QID PRN Pain 09/20/18 04/10/23 History mg tablet omeprazole 40 mg capsule,delayed 40 mg PO QAM 09/20/18 04/10/23 History release sertraline 100 mg tablet 200 mg PO HS 09/20/18 04/10/23 History calcium carbonate 600 mg calcium 600 mg PO QAM 01/02/19 04/10/23 History (1,500 mg) tablet (Calcium) nitroglycerin 0.4 mg sublingual 0.4 mg sublingual UD 30 days #25 01/03/19 04/10/23 Rx tablet tabs albuterol sulfate 90 mcg/actuation 2 puff inhalation Q4H PRN 11/05/19 04/10/23 H istory aerosol inhaler Shortness Of Breath Or Wheezing alendronate 70 mg tablet 70 mg PO WK 11/05/19 04/10/23 History ezetimibe 10 mg tablet (Zetia) 10 mg PO QAM 11/05/19 04/10/23 History hydrochlorothiazide 12.5 mg capsule 12.5 mg PO MOWEFR 04/13/21 04/10/23 History metoprolol succinate 25 mg 12.5 mg PO QAM 04/13/21 04/10/23 History tablet,extended release 24 hr tizanidine 4 mg tablet 4 mg PO Q8H PRN Muscle Spasm 04/13/21 04/10/23 History atorvastatin 80 mg tablet 80 mg PO DAILY 04/10/23 04/10/23 History gabapentin 300 mg capsule 300 mg PO Q8H 04/10/23 04/10/23 History galcanezumab-gnlm 120 mg/mL 120 mg subcut MONTHLY 04/10/23 04/10/23 History subcutaneous pen injector (Emgality Pen) hydroxyzine HCl 25 mg tablet 25 mg PO Q6H PRN Anxiety 04/10/23 04/10/23 History lisinopril 10 mg tablet 10 mg PO DAILY 04/10/23 04/10/23 History Past Med/Surg History Medical History (Updated 04/10/23 @ 18:54 by Monica Mayen PA-C) ACS (acute coronary syndrome) Anxiety Cervical spinal stenosis CKD (chronic kidney disease), stage III COPD (chronic obstructive pulmonary disease) Depression Diastolic dysfunction GERD (gastroesophageal reflux disease) HLD (hyperlipidemia) Lumbar spinal stenosis Nocturnal hypoxia reported secondary to COPD. Pt not on home oxygen HS secondary to reported insurance issues Nonobstructive atherosclerosis of coronary artery (2018) LAD and circumflex free of major disease. RCA with 40 to 50% mid right coronary stenosis and 40% stenosis at the takeoff of the PDA. NSTEMI (non-ST elevated myocardial infarction) Osteoarthritis Osteoporosis Palpitation Tobacco use Vasospastic angina Surgical History History of arthroscopy of right shoulder History of carpal tunnel surgery History of section History of cholecystectomy History of hysterectomy History of lumbar fusion S/P cervical spinal fusion Family History Sister Breast cancer Aunt Breast cancer Father Coronary heart disease Brother Hypertension Father Hypertension Social History Smoking Status: Former smoker Cigarettes Per Day: 10; Second Hand Exposure: No; Do You Dip or Chew Tobacco: No; Hx Alcohol Use: No Hx Substance Use: No Preferred Language: [place] Communication Ability: Effective Quality Audit Representative Required: No Beliefs That Will Affect Care: None Current Living Situation: Alone Feels Safe at Home: Yes Assistive Devices: None Review of Systems Review of Systems: All systems reviewed & are unremarkable except as noted in HPI & below Constitutional: + fatigue and + anorexia Eyes: no diplopia Ear, Nose, Mouth, Throat: no nasal congestion, no nasal discharge and no sore throat Respiratory: no cough and no dyspnea Cardiovascular: no chest pain, no palpitations and no syncope Gastrointestinal: no nausea, no vomiting and no diarrhea/loose stools Genitourinary: no dysuria and no hematuria Musculoskeletal: as per Subjective / HPI Integumentary: no yellowing of the skin Neurologic: + falls, + generalized weakness and + paresthesia Psychiatric: + anxiety Physical Exam Constitutional: no acute distress Eyes: pupils with decreased reactivity to light, no scleral icterus Neck: trachea midline Respiratory: no respiratory distress and no labored breathing Auscultation: lungs clear to auscultation bilaterally; no rhonchi and no wheezes Cardiovascular: Rate/Rhythm: regular rate and regular rhythm Vessels: radial pulses present Extremities: no pedal edema Gastrointestinal (Abdomen): Inspection/Auscultation: normal bowel sounds Percussion/Palpation: abdomen soft Musculoskeletal: right > left LE weakness but is able to lift both legs off the bed independently Skin: right frontal ecchymosis Neurologic: moves all extremities; not confused Psychiatric: A+Ox3, euthymic affect Results & Data Results & Data Vital Signs (Past 12 Hours) Vital Signs Temp Pulse Resp BP Pulse Ox O2 Del Method 04/10/23 15:27 95 Room Air 04/10/23 14:03 36.9 C 92 H 16 131/69 95 Room Air Laboratory Results Laboratory Results - last 24 hr 04/10/23 04/10/23 04/10/23 14:10 14:10 14:10 WBC 11.25 H RBC 3.13 L Hgb 9.6 L Hct 28.8 L MCV 92.0 MCH 30.7 MCHC 33.3 RDW Std Deviation 42.5 RDW Coeff of Melany 12.8 Plt Count 377 MPV 9.5 Immature Gran % (Auto) 0.5 Neut % (Auto) 68.5 Lymph % (Auto) 17.1 [place] % (Auto) 10.9 Eos % (Auto) 2.0 Baso % (Auto) 1.0 Neut # (Auto) 7.70 H Lymph # (Auto) 1.92 [place] # (Auto) 1.23 H Eos # (Auto) 0.23 Baso # (Auto) 0.11 Immature Gran # (Auto) 0.06 Sodium 132 L Potassium 4.3 Chloride 102 Carbon Dioxide 23 Anion Gap 7 BUN 17 Creatinine 0.91 Est Cr Clr Drug Dosing 46.8 Est GFR ( Amer) 73.1 Est GFR (Non-Af Amer) 63.0 BUN/Creatinine Ratio 18.7 Glucose 109 H Calcium 9.6 Magnesium 1.9 Total Bilirubin 0.4 AST 19 ALT 13 Alkaline Phosphatase 124 H Total Creatine Kinase 393 H Troponin I High Sens 6.0 Total Protein 7.4 Albumin 4.0 Globulin 3.4 Albumin/Globulin Ratio 1.2 TSH 1.422 Urine Color Urine Appearance Urine pH Ur Specific [place] Urine Protein Urine Glucose (UA) Urine Ketones Urine Blood Urine Nitrite Urine Bilirubin Urine Urobilinogen Ur Leukocyte Esterase SARS-CoV-2 (PCR) Influenza Type A (PCR) Influenza Type B (PCR) RSV (RT-PCR) 04/10/23 04/10/23 15:16 15:20 WBC RBC Hgb Hct MCV MCH MCHC RDW Std Deviation RDW Coeff of Melany Plt Count MPV Immature Gran % (Auto) Neut % (Auto) Lymph % (Auto) [place] % (Auto) Eos % (Auto) Baso % (Auto) Neut # (Auto) Lymph # (Auto) [place] # (Auto) Eos # (Auto) Baso # (Auto) Immature Gran # (Auto) Sodium Potassium Chloride Carbon Dioxide Anion Gap BUN Creatinine Est Cr Clr Drug Dosing Est GFR ( Amer) Est GFR (Non-Af Amer) BUN/Creatinine Ratio Glucose Calcium Magnesium Total Bilirubin AST ALT Alkaline Phosphatase Total Creatine Kinase Troponin I High Sens Total Protein Albumin Globulin Albumin/Globulin Ratio TSH Urine Color Yellow Urine Appearance Clear Urine pH 5.5 Ur Specific [place] 1.010 Urine Protein Negative Urine Glucose (UA) Negative Urine Ketones Negative Urine Blood Negative Urine Nitrite Negative Urine Bilirubin Negative Urine Urobilinogen Negative Ur Leukocyte Esterase Negative SARS-CoV-2 (PCR) NEGATIVE Influenza Type A (PCR) Negative Influenza Type B (PCR) Negative RSV (RT-PCR) Negative Diagnostic Findings Cervical Spine CT 04/10/23 14:30 CT SCAN OF THE CERVICAL SPINE CLINICAL HISTORY: Fall. COMPARISON STUDY: Cervical spine radiographs dated 09/01/2012. TECHNIQUE: CT scan of the cervical spine is performed from the skull base to the upper thoracic spine. Images are reviewed in the axial, sagittal, and coronal planes. IV contrast was not administered for this examination. A dose lowering technique was utilized adhering to the principles of ALARA. The examination is degraded by streak artifact from metallic spinal hardware. FINDINGS: Skeletal structures: The skeletal structures are osteopenic. There is no evidence of fracture or subluxation involving the cervical spine. Vertebral body height and alignment are maintained. There is straightening of the cervical lordosis. Anterior osteophytes are seen throughout. There is postsurgical change from laminectomy and posterior fusion seen from C3-T1. Interpedicular screws are present at all levels with the exception of C7. Lucency around the interpedicular screws and 3 cc suggest loosening. The odontoid process and lateral masses are intact. The atlantoaxial articulation is preserved noting productive degenerative change. The spinous processes appear intact. Intervertebral discs: There is moderate to severe multilevel degenerative disc space narrowing seen at all levels between C3-C4 and C6-C7. There is multilevel endplate sclerosis. Central canal: Grossly patent. Posterior disc osteophyte complexes are noted at C3-C4, C5-C6, and C6-C7. Soft tissues: The prevertebral and paraspinous soft tissues are within normal limits. There is mild atherosclerotic calcification of the carotid bulbs. Calvarium: The visualized calvarium at the skull base appears intact. Brain parenchyma: Partially visualized brain parenchyma at the skull base is within normal limits. Sinuses and mastoids: The visualized paranasal sinuses are clear. The mastoid air cells are well pneumatized. Lung apices: Clear as visualized. IMPRESSION: 1. There is no evidence of cervical spine fracture or subluxation. 2. Postsurgical change as above. 3. Lucency around the interpedicular screws in C3 suggests loosening. ACT 112: Negative or not required by law. Electronically signed by: Cb Bennett M.D. 04/10/2023 4:11 PM Chest X-Ray 04/10/23 14:30 XR chest 1V not portable HISTORY: 72 years-old Female weakness acute weakness. COMPARISON: 04/13/2021 TECHNIQUE: AP view of the chest FINDINGS: The heart is mildly enlarged. Atherosclerosis of the aorta. No pneumothorax, pleural effusion, airspace consolidation or pulmonary edema. Cervicothoracic fusion hardware. Degenerative changes of the shoulders and spine. IMPRESSION: No acute process. ACT 112: Negative or not required by law. The above report was generated using voice recognition software. It may contain grammatical, syntax or spelling errors. Electronically signed by: Eladio Pascual M.D. 04/10/2023 4:[address] 04/10/23 14:30 CT head/brain wo con CLINICAL HISTORY: fall, trauma Technique: Contiguous axial CT images of the head were acquired from the base of the skull to the vertex without intravenous contrast administration. Images were viewed in brain, subdural and bone windows. Automated dose lowering techniques and/or adjustment according to patient size were utilized for this exam. Comparison: Comparison is made to CT head 04/13/2021 Findings: The ventricles, basal cisterns, and cerebral sulci are normal. There is no acute intracranial hemorrhage or evidence of acute territorial infarction. Neither mass effect, shift of the midline structures, nor abnormal extra-axial fluid collections are shown. Imaged portions of the paranasal sinuses and mastoid air cells are clear. The orbits appear normal. There are no acute fractures of the calvaria or scalp swelling. Impression: No acute intracranial hemorrhage, no evidence of acute territorial infarction or other acute intracranial disease process. ACT 112: Negative or not required by law. Electronically signed by: Jonathan Duarte M.D. 04/10/2023 4:11 PM Hip/Pelvis X-Ray 04/10/23 14:30 XR hip RT 2V w pelvis HISTORY: 72 years-old Female fall, pain acute pain of the pelvis or right hip status post fall COMPARISON: 09/20/2018 TECHNIQUE: AP view the pelvis with 2 views of the right hip FINDINGS: Region hardware with discectomy changes of the lower lumbar spine. Mild to moderate osteoarthritis of the hips. No acute fracture, dislocation or avascular necrosis. Unremarkable soft tissues. IMPRESSION: No acute fracture or dislocation. ACT 112: Negative or not required by law. The above report was generated using voice recognition software. It may contain grammatical, syntax or spelling errors. Electronically signed by: Eladio Pascual M.D. 04/10/2023 4:38 PM Knee X-Ray 04/10/23 14:30 XR knee RT 3V HISTORY: 72 years-old Female fall, pain acute right knee pain status post fall COMPARISON: 02/01/2017 TECHNIQUE: 3 views of the right knee FINDINGS: No acute fracture, dislocation or significant osteoarthritis. Degenerative spurring of the patella. No large joint effusion. Demineralized appearance of the bones. IMPRESSION: No acute fracture or dislocation. Lumbar Spine CT 04/10/23 14:30 CT lumbar spine wo con HISTORY: 72 years-old Female fall, acute low back pain status post fall pain status post fall COMPARISON: CTA chest 09/05/2019, lumbar spine radiograph 09/20/2018 TECHNIQUE: Multiple axial CT images of the lumbar spine were obtained without the use of IV contrast. A dose lowering technique was used consistent with the principals of MARC. FINDINGS: Atherosclerosis of the aorta and branch vessels. 3 mm nonobstructing left renal calculus. Mild dilatation of the bilateral ureters. No acute intrapelvic abnormality identified. Cholecystectomy. Posterior bilateral marya and screw fusion hardware at L4-S1 with associated discectomy changes. The hardware appears intact. Streak artifact from hardware limits the study. The L5-S1 disc spacer is positioned eccentrically within the left lateral aspect of intervertebral disc space well-defined posterior postoperative fluid collection. Moderate degeneration of the SI joints. No definite acute fracture identified. Suboptimal evaluation of the central canal and neural foramina are CT technique. IMPRESSION: 1. No acute fracture or subluxation identified. 2. Postoperative changes of the lumbar spine with posterior interbody marya and screw fusion and discectomy at L4-S1. The L5-S1 disc spacer is positioned eccentrically within the left lateral aspect of the intervertebral disc space. 3. Left nephrolithiasis. Medications Administered Discontinued Medications Sodium Chloride (Nss 1000ml) 1,000 mls @ 999 mls/hr IV .Q1H1M KELSIE Stop: 04/10/23 15:30 Last Infusion: 04/10/23 17:16 Dose: 0 mls/hr Documented By: Admin: 04/10/23 15:21 Dose: 999 mls/hr Documented By: JESUS Acetaminophen (Ofirmev) 1,000 mg in 100 mls @ 400 mls/hr IV NOW STA Stop: 04/10/23 14:44 Last Infusion: 04/10/23 16:00 Dose: 0 mls/hr Documented By: Admin: 04/10/23 15:24 Dose: 400 mls/hr Documented By: JESUS Morphine Sulfate (Morphine Sulfate 2 Mg/Ml Carp) 2 mg IV NOW STA Stop: 04/10/23 14:31 Last Admin: 04/10/23 15:23 Dose: 2 mg Documented By: JESUS Ondansetron HCl (Ondansetron Inj 2 Mg/Ml 2 Ml Vial) 4 mg IV NOW STA Stop: 04/10/23 14:31 Last Admin: 04/10/23 15:22 Dose: 4 mg Documented By: JESUS Supervising Physician Co-Signing Physician Notes I was present withSophy Mayen PA-C during the history and exam. I discussed the case with the Sophy Mayen PA-C and agree with the findings and plan as documented in the H&P. In short, Ms. Sandy Fan is a 72 year old woman s/p L4-S1 laminectomy 03/15/2023, with complicated post op course of hypotension and associated acute anemia requiring brief pressor supprot. Patient was stablized and eventually d/c to rehab on 03/20. Patient was discharged 04/05 to home, where she lives alone. Patient presents due to multiple falls. Falls aren't mechanical in nature. They do not appear to have prodromal symptoms. Notably patient is not aware during events: 1 fall resulting in slumping out of couch; 1 fall in which she was sitting, but awoke after bumping her head--she cannot recall how, events leading up to, or what she struck her head on. Patient endorses taking hydrocodone and other medications she was informed to discontinue after discharge. Plan to optimize pain regimen and decrease narcotics, consider further consult with ortho?spine given spacer location/progressive neuropathic symptoms, monitor hemoglobin. PT/OT eval.
[2023-04-10] MEDS ORDERED: HYDROCODONE/ACETAMOPHEN 5/325MG TAB PO PRN (18:45)
[2023-04-10] MEDS ORDERED: ALBUTEROL HFA 8 GM INHALER INH PRN (19:51)
[2023-04-10] MEDS ORDERED: hydrOXYzine HCl 25 MG TAB PO PRN (19:51)
[2023-04-10] MEDS: AMITRIPTYLINE HCL 10 MG TAB PO SCH (20:41)
[2023-04-10] MEDS: GABAPENTIN 600 MG TAB PO SCH (20:41)
[2023-04-10] MEDS: SERTRALINE HCL 100 MG TABLET PO SCH (20:41)
[2023-04-10] MEDS: ACETAMINOPHEN 325 MG TAB PO SCH (22:08)
--- NOTE | 2023-04-11 06:10 | Electrocardiogram Report ---
Test Reason : Blood Pressure : / mmHG Vent. Rate : 083 BPM Atrial Rate : 083 BPM P-R Int : 154 ms QRS Dur : 086 ms QT Int : 368 ms P-R-T Axes : 050 -17 020 degrees QTc Int : 432 ms Normal sinus rhythm Minimal voltage criteria for LVH, may be normal variant ( R in aVL ) Cannot rule out Anterior infarct , age undetermined Abnormal ECG When compared with ECG of 05-NOV-2019 10:51, No significant change was found Confirmed by Apolinar Crawford ([id number]) on 04/11/2023 6:10:13 AM Referred By: REFERRED SELF Confirmed By:Apolinar Crawford
[2023-04-11] MEDS: ACETAMINOPHEN 325 MG TAB PO SCH ×3 (06:42→21:53)
[2023-04-11 06:45] LABS: Basophils # (auto) 0.08 K/uL (0-0.2); Basophils % (auto) 0.9 %; Eosinophils # (auto) 0.39 K/uL (0-0.50); Eosinophils % (auto) 4.2 %; Hematocrit (blood only) 25.5 % (37.0-47.0); Hemoglobin 8.5 g/dl (12.0-16.0); Immature Granulocytes # (auto) 0.05 K/uL (0.01-0.20); Immature Granulocytes % (auto) 0.5 %; Lymphocytes # (auto) 1.87 K/uL (1.2-3.4); Lymphocytes % (auto) 20.1 %; Mean Corpuscular Hgb Conc 33.3 g/dL (32.0-36.0); Mean Corpuscular Volume 93.1 fL (80.0-100.0); Mean Platelet Volume 9.2 fL (9.4-12.4); Monocytes # (auto) 1.02 K/uL (0.11-0.59); Monocytes % (auto) 10.9 %; Neutrophils # (auto) 5.91 K/uL (1.40-6.50); Neutrophils % (auto) 63.4 %; Platelet Count 310 K/uL (130-400); RDW Coefficient of Variation 12.8 % (11.5-14.5); RDW Standard Deviation 43.1 fL (36.4-46.3); Red Blood Count 2.74 M/uL (4.20-5.40); White Blood Count 9.32 K/ul (4.8-10.8)
[2023-04-11 07:10] LABS: BUN Creatinine Ratio 18.9 (10-20); Calcium 8.6 mg/dl (8.6-10.3); Creatinine Clr Calc Pharmacy 40.3 ml/min; Est GFR (African American) 60.8 ml/min; Est GFR (Non-African American) 52.4 ml/min; Potassium 4.2 mmol/L (3.5-5.1)
[2023-04-11] MEDS: PANTOprazole 40 MG TAB PO SCH (08:12)
[2023-04-11] MEDS: EZETIMIBE 10 MG TAB PO SCH (08:12)
[2023-04-11] MEDS: ASPIRIN 81 MG ECTAB PO SCH (08:12)
[2023-04-11] MEDS: ATORVASTATIN 40 MG TAB PO SCH (08:12)
[2023-04-11] MEDS: lisinopril 10 MG TAB PO SCH (08:12)
[2023-04-11] MEDS: GABAPENTIN 300 MG CAP PO SCH ×2 (08:13→17:46)
[2023-04-11] MEDS: METOPROLOL SUCC 25MG EXT REL TAB PO SCH (08:13)
--- NOTE | 2023-04-11 11:49 | Orthopedic Consultation ---
Date of Consultation April 11, 2023 Assessment & Plan (1) History of lumbar surgery: Assessment status post lumbar decompression and fusion. Plan at this time the CAT scan demonstrates instrumentation to be in place in appropriate alignment. At this point we will continue with physical therapy and Occupational Therapy while in the hospital and consider return to rehab prior to her ultimately getting home. Patient stands agrees with this plan. History of Present Illness Reason for Consultation: Back and leg pain Attending Physician: Mckenzie Love MD History of Present Illness This is a 72-year-old female known to me and is status post lumbar decompression fusion L4-L5 L5-S1. She had had a normal postoperative course while in the hospital was taken to rehab and progressed appropriately. Unfortunately upon discharge to her home she has had a decline in status. She describes multiple falls at home. She describes intermittent pain on the right leg and sensation of weakness involving the right lower extremity. At this time she is comfortable. She is in the [place] with her physical therapist. She is denying any radicular complaints or back pain. Allergies Allergy/AdvReac Type Severity Reaction Status Date / Time latex Allergy Mild RASH Verified 04/13/21 18:42 Iodinated Contrast Media Allergy Unknown . Verified 04/13/21 18:42 Penicillins Allergy Unknown Unknown Verified 04/13/21 18:42 varenicline AdvReac Severe NAUSEA Verified 04/13/21 18:42 benzalkonium chloride AdvReac Intermediate VERTIGO Verified 04/13/21 18:42 ibuprofen AdvReac Intermediate ACID REFLEX Verified 04/13/21 18:42 ofloxacin AdvReac Intermediate VERTIGO Verified 04/13/21 18:42 Corticosteroids AdvReac Unknown jittery Verified 04/13/21 18:42 (Glucocorticoids) and hyper DM-APAP-CPM Allergy Severe ANAPHYLAXIS Uncoded 04/13/21 18:50 Home Medications Medication Instructions Recorded Confirmed Type amitriptyline 10 mg tablet 20 mg PO HS 09/20/18 04/10/23 History aspirin 81 mg tablet,delayed 81 mg PO QAM 09/20/18 04/10/23 History release hydrocodone 5 mg-acetaminophen 325 1 tab PO QID PRN Pain 09/20/18 04/10/23 History mg tablet omeprazole 40 mg capsule,delayed 40 mg PO QAM 09/20/18 04/10/23 History release sertraline 100 mg tablet 200 mg PO HS 09/20/18 04/10/23 History calcium carbonate 600 mg calcium 600 mg PO QAM 01/02/19 04/10/23 History (1,500 mg) tablet (Calcium) nitroglycerin 0.4 mg sublingual 0.4 mg sublingual UD 30 days #25 01/03/19 04/10/23 Rx tablet tabs albuterol sulfate 90 mcg/actuation 2 puff inhalation Q4H PRN 11/05/19 04/10/23 History aerosol inhaler Shortness Of Breath Or Wheezing alendronate 70 mg tablet 70 mg PO WK 11/05/19 04/10/23 History ezetimibe 10 mg tablet (Zetia) 10 mg PO QAM 11/05/19 04/10/23 History hydrochlorothiazide 12.5 mg capsule 12.5 mg PO MOWEFR 04/13/21 04/10/23 History metoprolol succinate 25 mg 12.5 mg PO QAM 04/13/21 04/10/23 History tablet,extended release 24 hr tizanidine 4 mg tablet 4 mg PO Q8H PRN Muscle Spasm 04/13/21 04/10/23 History atorvastatin 80 mg tablet 80 mg PO DAILY 04/10/23 04/10/23 History gabapentin 300 mg capsule 300 mg PO Q8H 04/10/23 04/10/23 History galcanezumab-gnlm 120 mg/mL 120 mg subcut MONTHLY 04/10/23 04/10/23 History subcutaneous pen injector (Emgality Pen) hydroxyzine HCl 25 mg tablet 25 mg PO Q6H PRN Anxiety 04/10/23 04/10/23 History lisinopril 10 mg tablet 10 mg PO DAILY 04/10/23 04/10/23 History Patient History Medical History ACS (acute coronary syndrome) Anxiety Cervical spinal stenosis CKD (chronic kidney disease), stage III COPD (chronic obstructive pulmonary disease) Depression Diastolic dysfunction GERD (gastroesophageal reflux disease) HLD (hyperlipidemia) Lumbar spinal stenosis Nocturnal hypoxia reported secondary to COPD. Pt not on home oxygen HS secondary to reported insurance issues Nonobstructive atherosclerosis of coronary artery (2018) LAD and circumflex free of major disease. RCA with 40 to 50% mid right coronary stenosis and 40% stenosis at the takeoff of the PDA. NSTEMI (non-ST elevated myocardial infarction) Osteoarthritis Osteoporosis Palpitation Tobacco use Vasospastic angina Surgical History (Updated 04/10/23 @ 21:39 by Cb Granger MD) History of arthroscopy of right shoulder History of carpal tunnel surgery History of section History of cholecystectomy History of hysterectomy History of lumbar fusion S/P cervical spinal fusion Family History Sister Breast cancer Aunt Breast cancer Father Coronary heart disease Brother Hypertension Father Hypertension Social History Smoking Status: Former smoker Second Hand Exposure: No; Do You Dip or Chew Tobacco: No; Hx Alcohol Use: No Hx Substance Use: No Preferred Language: Cypriot Communication Ability: Effective Registration Specialist Required: No Beliefs That Will Affect Care: None Current Living Situation: Alone Current Living Situation Comment: Apartment complex Other Information That Helps Us Care for You: No Feels Safe at Home: Yes Safety Concerns: Feels Safe At This Time Assistive Devices: Cane and Walker Physical Exam Physical Exam: On exam the incision appears to be healing properly. There is no erythema or drainage. She has good strength detailed testing of the lower extremities. There is no tension signs. Results & Data Vital Signs (Past 12 Hours) Vital Signs Temp Pulse Resp BP Pulse Ox O2 Del Method 04/11/23 07:10 37.0 C 73 18 116/64 92 Room Air
[2023-04-11] MEDS: dexAMETHasone 6 MG in SYRINGE 0 ML IV SCH (12:53)
--- NOTE | 2023-04-11 17:28 | Hospitalist Progress Note ---
Date of Service April 11, 2023 Assessment & Plan (1) Multiple falls: (2) Ambulatory dysfunction: (3) Lumbar spinal stenosis: Plan: This is a 72 y/o female with a history of COPD, CKD3a, diastolic dysfunction, dyslipidemia, HTN, osteoporosis, cervical stenosis s/p PCDF, lumbar stenosis s/p recent decompression/fusion who presented to the ED via EMS as a fall at home, down on the ground for >1 hr per pt. Pt was discharged from rehab five days ago but has had multiple falls at home and feels like her pain is worse since surgery. She has been taking the hydrocodone consistently every six hours and using the muscle relaxer at bedtime. These medications may be contributing to her recurrent falls. Her CT shows the L5-S1 disc spacer "eccentrically positioned within left lateral aspect of the intravertebral disc space" but it is unclear if this would correlate with her symptoms. She lives alone with help from her neighbors but no one with her consistently. Pain controlled with new regimen - added scheduled acetaminophen 650 mg Q8 hours, decreased hydrocodone-acetaminophen to every 8 hours PRN (not scheduled), and stop the tizanidine. Will increase gabapentin to 600 mg HS, 300 mg BID as she has found this helpful at lower doses Spine Ortho consulted Started on IV dexamethasone by spine Ortho PT/OT, case management consults, will need placement for additional rehab (4) Postoperative anemia: Plan: Post-operative anemia required one unit of PRBCs at [facility] Hgb 9.4 on 04/04 at [facility] Hgb 8.5 today, no indication for transfusion, continue to monitor CBC (5) Nonobstructive atherosclerosis of coronary artery: Plan: Continue ASA, statin, beta-randi (6) HTN (hypertension): Plan: BP controlled, continue lisinopril, HCTZ, metoprolol (7) COPD (chronic obstructive pulmonary disease): Plan: No signs of acute exacerbation (8) Depression: Plan: Stable, continue home meds DVT PROPHYLAXIS SCDs given recent spine surgery Dispo -PT/OT, case management consults, patient likely will need placement for additional rehab Patient seen in collaboration with Dr. Love. Admission and Anticipated Discharge Date Admission Date: April 10, 2023 Supervising Physician Co-Signing Physician Notes Patient seen and examined at bedside as a follow-up of multiple falls, ambulatory dysfunction, recent lumbar spine surgery for lumbar spinal stenosis. Patient reports improving strength, will need PT/OT, likely rehab. Orthospine evaluated, appreciate recommendation. ROS fairly negative for infection, no fever or chills, no loss of control of bowel and bladder, denies out of proportion back pain. On exam, lower back with well-healing operative scar. No tenderness. Rest of the exam as above. I have seen and examined the patient and have discussed the case with the provider above. I agree with the assessment and plan as stated. Subjective Follow-up for frequent falls, s/p recent back surgery. Patient seen and examined. Sitting up in the chair. Reports pain is well controlled. No chest pain or shortness of breath. Denies lightheadedness and dizziness. No abdominal pain or nausea. Awaiting placement for additional rehab. Physical Exam Constitutional: WD/WN, vitals as above no acute distress Respiratory: normal respiratory effort, lungs clear to auscultation Cardiovascular: Rate/Rhythm: regular rate and regular rhythm Vessels: normal peripheral pulses Extremities: no edema Gastrointestinal (Abdomen): Percussion/Palpation: abdomen soft; abdomen nontender Musculoskeletal: S/p recent back surgery, incision healing well, no surrounding erythema or drainage present Skin: no rashes, warm and dry Neurologic: no focal motor deficits Psychiatric: A+Ox3, euthymic affect Results & Data Results & Data Vital Signs (Past 12 Hours) Vital Signs Temp Pulse Resp BP Pulse Ox O2 Del Method 04/11/23 15:04 37.5 C 77 16 106/52 L 95 Room Air 04/11/23 07:10 37.0 C 73 18 116/64 92 Room Air Laboratory Results Short CBC 04/11/23 Range/Units 06:23 WBC 9.32 (4.8-10.8) K/ul Hgb 8.5 L (12.0-16.0) g/dl Hct 25.5 L (37.0-47.0) % Plt Count 310 (130-400) K/uL BMP 04/11/23 06:23 Sodium 135 L Potassium 4.2 Chloride 106 Carbon Dioxide 25 BUN 20 Creatinine 1.06 Glucose 97 Calcium 8.6
[2023-04-11] MEDS: AMITRIPTYLINE HCL 10 MG TAB PO SCH (21:02)
[2023-04-11] MEDS: SERTRALINE HCL 100 MG TABLET PO SCH (21:02)
[2023-04-11] MEDS: GABAPENTIN 600 MG TAB PO SCH (21:02)
[2023-04-12] MEDS: ACETAMINOPHEN 325 MG TAB PO SCH ×2 (05:55→14:15)
[2023-04-12 06:53] LABS: Basophils # (auto) 0.08 K/uL (0-0.2); Basophils % (auto) 0.7 %; Eosinophils % (auto) 1.8 %; Hematocrit (blood only) 27.2 % (37.0-47.0); Immature Granulocytes # (auto) 0.07 K/uL (0.01-0.20); Immature Granulocytes % (auto) 0.6 %; Lymphocytes # (auto) 2.62 K/uL (1.2-3.4); Lymphocytes % (auto) 23.8 %; Mean Corpuscular Hemoglobin 30.6 pg (25.0-34.0); Mean Corpuscular Hgb Conc 33.1 g/dL (32.0-36.0); Mean Corpuscular Volume 92.5 fL (80.0-100.0); Mean Platelet Volume 9.1 fL (9.4-12.4); Monocytes # (auto) 1.03 K/uL (0.11-0.59); Monocytes % (auto) 9.4 %; Neutrophils # (auto) 7.01 K/uL (1.40-6.50); Neutrophils % (auto) 63.7 %; Platelet Count 332 K/uL (130-400); RDW Coefficient of Variation 12.6 % (11.5-14.5); RDW Standard Deviation 42.6 fL (36.4-46.3); Red Blood Count 2.94 M/uL (4.20-5.40); White Blood Count 11.01 K/ul (4.8-10.8)
[2023-04-12 07:16] LABS: BUN Creatinine Ratio 24.7 (10-20); Calcium 9.4 mg/dl (8.6-10.3); Est GFR (Non-African American) 64.7 ml/min; Potassium 4.3 mmol/L (3.5-5.1)
[2023-04-12] MEDS: GABAPENTIN 300 MG CAP PO SCH ×2 (07:51→17:12)
[2023-04-12] MEDS: METOPROLOL SUCC 25MG EXT REL TAB PO SCH (07:52)
[2023-04-12] MEDS: lisinopril 10 MG TAB PO SCH (07:52)
[2023-04-12] MEDS: PANTOprazole 40 MG TAB PO SCH (07:52)
[2023-04-12] MEDS: ASPIRIN 81 MG ECTAB PO SCH (07:53)
[2023-04-12] MEDS: ATORVASTATIN 40 MG TAB PO SCH (07:53)
[2023-04-12] MEDS: dexAMETHasone 6 MG in SYRINGE 0 ML IV SCH (07:53)
[2023-04-12] MEDS: EZETIMIBE 10 MG TAB PO SCH (07:53)
[2023-04-12] MEDS ORDERED: hydroCHLOROthiazide 25 MG TAB PO SCH (09:00)
--- NOTE | 2023-04-12 17:12 | Discharge Summary ---
Date of Service April 12, 2023 Admission HPI Per Admitting Provider This is a 72 y/o female with a history of COPD, CKD3a, diastolic dysfunction, dyslipidemia, HTN, osteoporosis, cervical stenosis s/p PCDF, lumbar stenosis s/p recent decompression/fusion, and other medical history as listed below who presents to the ED today after recurrent falls at home since being discharged from [facility] last week. Pt underwent lumbar surgery on 03/15/[address] Ly at [facility]. Post-operatively she developed fever and hypotension with suspicion of septic shock - she received multiple fluid boluses without improvement so she was transferred to the ICU and started on pressors. She was also determined to have a component of acute blood loss anemia (Hgb dropped to 7.2) so she was transfused with one unit with improvement of her pressure and pressors able to be discontinued. She was covered with broad spectrum antibiotics. No clear source ultimately determined. She was transferred to [facility] for rehab on 03/20/23 and discharged on 04/05/23. However, since being home, pt has continued to have issues with pain and weakness in her legs and has fallen multiple times, some of which she does not remember clearly. Today, she fell and hit her head, was unable to get up and call for help for at least an hour. Brought in via EMS after most recent fall. Since surgery, she has noted increased lower back pain, describing it as sharper than pre-op. Pain radiating down legs - worse on left before surgery but now worse on right. Her legs have been giving out at times - feels like right leg is more weak than left. She does have some urinary incontinence but this is a chronic issue that has not worsened since surgery. Incontinence associated with sneezing, laughing, or waiting too long to go to the bathroom. Subjective fever and chills for the last few days - hasn't checked temp. Appetite decreased but denies nausea or vomiting. Moving bowels okay since being home - had some constipation at [facility] that improved with stool softeners. No longer needing. Still taking hydrocodone every six hours for pain. Reports that she is still taking the tizanidine at bedtime to help her sleep even though she was supposed to stop it (although she is unsure why). Admission Exam Per Admitting Provider Constitutional: no acute distress Eyes: pupils with decreased reactivity to light, no scleral icterus Neck: trachea midline Respiratory: no respiratory distress and no labored breathing Auscultation: lungs clear to auscultation bilaterally; no rhonchi and no wheezes Cardiovascular: Rate/Rhythm: regular rate and regular rhythm Vessels: radial pulses present Extremities: no pedal edema Gastrointestinal (Abdomen): Inspection/Auscultation: normal bowel sounds Percussion/Palpation: abdomen soft Musculoskeletal: right > left LE weakness but is able to lift both legs off the bed independently Skin: right frontal ecchymosis Neurologic: moves all extremities; not confused Psychiatric: A+Ox3, euthymic affect Principal Diagnosis Pittore dysfunction S/p recent back surgery Discharge Exam Constitutional WD/WN, vitals as above no acute distress Respiratory normal respiratory effort, lungs clear to auscultation Cardiovascular Rate/Rhythm: regular rate and regular rhythm Vessels: normal peripheral pulses Extremities: no edema Gastrointestinal (Abdomen) Percussion/Palpation: abdomen soft; abdomen nontender Musculoskeletal Back incision healing well, no surrounding erythema or drainage noted Skin no rashes, warm and dry Neurologic no focal motor deficits Psychiatric A+Ox3, euthymic affect Discharge Data Allergies Allergy/AdvReac Type Severity Reaction Status Date / Time latex Allergy Mild RASH Verified 04/13/21 18:42 Iodinated Contrast Media Allergy Unknown . Verified 04/13/21 18:42 Penicillins Allergy Unknown Unknown Verified 04/13/21 18:42 varenicline AdvReac Severe NAUSEA Verified 04/13/21 18:42 benzalkonium chloride AdvReac Intermediate VERTIGO Verified 04/13/21 18:42 ibuprofen AdvReac Intermediate ACID REFLEX Verified 04/13/21 18:42 ofloxacin AdvReac Intermediate VERTIGO Verified 04/13/21 18:42 Corticosteroids AdvReac Unknown jittery Verified 04/13/21 18:42 (Glucocorticoids) and hyper [id number] Allergy Severe ANAPHYLAXIS Uncoded 04/13/21 18:50 Consultations 04/11/23 09:44 Consult Orthopedic Surgery Routine Ordered Studies Laboratory Results WBC 11.01 K/ul (4.8-10.8) H 04/12/23 06:35 RBC 2.94 M/uL (4.20-5.40) L 04/12/23 06:35 Hgb 9.0 g/dl (12.0-16.0) L 04/12/23 06:35 Hct 27.2 % (37.0-47.0) L 04/12/23 06:35 MCV 92.5 fL (80.0-100.0) 04/12/23 06:35 MCH 30.6 pg (25.0-34.0) 04/12/23 06:35 MCHC 33.1 g/dL (32.0-36.0) 04/12/23 06:35 RDW Std Deviation 42.6 fL (36.4-46.3) 04/12/23 06:35 RDW Coeff of Melany 12.6 % (11.5-14.5) 04/12/23 06:35 Plt Count 332 K/uL (130-400) 04/12/23 06:35 MPV 9.1 fL (9.4-12.4) L 04/12/23 06:35 Immature Gran % (Auto) 0.6 % 04/12/23 06:35 Neut % (Auto) 63.7 % 04/12/23 06:35 Lymph % (Auto) 23.8 % 04/12/23 06:35 [place] % (Auto) 9.4 % 04/12/23 06:35 Eos % (Auto) 1.8 % 04/12/23 06:35 Baso % (Auto) 0.7 % 04/12/23 06:35 Neut # (Auto) 7.01 K/uL (1.40-6.50) H 04/12/23 06:35 Lymph # (Auto) 2.62 K/uL (1.2-3.4) 04/12/23 06:35 [place] # (Auto) 1.03 K/uL (0.11-0.59) H 04/12/23 06:35 Eos # (Auto) 0.20 K/uL (0-0.50) 04/12/23 06:35 Baso # (Auto) 0.08 K/uL (0-0.2) 04/12/23 06:35 Immature Gran # (Auto) 0.07 K/uL (0.01-0.20) 04/12/23 06:35 Sodium 135 mmol/L (136-145) L 04/12/23 06:35 Potassium 4.3 mmol/L (3.5-5.1) 04/12/23 06:35 Chloride 105 mmol/L (98-107) 04/12/23 06:35 Carbon Dioxide 27 mmol/L (21-32) 04/12/23 06:35 Anion Gap 3 (3-11) 04/12/23 06:35 BUN 22 mg/dl (6-23) 04/12/23 06:35 Creatinine 0.89 mg/dl (0.6-1.2) 04/12/23 06:35 Est Cr Clr Drug Dosing 48.0 ml/min 04/12/23 06:35 Est GFR ( Amer) 75.0 ml/min 04/12/23 06:35 Est GFR (Non-Af Amer) 64.7 ml/min 04/12/23 06:35 BUN/Creatinine Ratio 24.7 (10-20) H 04/12/23 06:35 Glucose 101 mg/dl (70-99(Fasting)) H 04/12/23 06:35 Calcium 9.4 mg/dl (8.6-10.3) 04/12/23 06:35 Magnesium 1.9 mg/dl (1.7-2.4) 04/10/23 14:10 Total Bilirubin 0.4 mg/dl (0.2-1.0) 04/10/23 14:10 AST 19 U/L (13-39) 04/10/23 14:10 ALT 13 U/L (7-52) 04/10/23 14:10 Alkaline Phosphatase 124 U/L (34-104) H 04/10/23 14:10 Total Creatine Kinase 393 U/L (26-192) H 04/10/23 14:10 Troponin I High Sens 6.0 pg/ml (0-14) 04/10/23 14:10 Total Protein 7.4 gm/dl (6.0-8.3) 04/10/23 14:10 Albumin 4.0 gm/dl (3.4-5.0) 04/10/23 14:10 Globulin 3.4 gm/dl (2.5-4.0) 04/10/23 14:10 Albumin/Globulin Ratio 1.2 (0.9-2) 04/10/23 14:10 TSH 1.422 uIu/ml (0.300-4.500) 04/10/23 14:10 Urine Color Yellow 04/10/23 15:20 Urine Appearance Clear (Clear) 04/10/23 15:20 Urine pH 5.5 (4.5-7.5) 04/10/23 15:20 Ur Specific [place] 1.010 (1.000-1.030) 04/10/23 15:20 Urine Protein Negative (Negative) 04/10/23 15:20 Urine Glucose (UA) Negative (Negative) 04/10/23 15:20 Urine Ketones Negative (Negative) 04/10/23 15:20 Urine Blood Negative (Negative) 04/10/23 15:20 Urine Nitrite Negative (Negative) 04/10/23 15:20 Urine Bilirubin Negative (Negative) 04/10/23 15:20 Urine Urobilinogen Negative (Negative) 04/10/23 15:20 Ur Leukocyte Esterase Negative (Negative) 04/10/23 15:20 SARS-CoV-2 (PCR) NEGATIVE (Negative) 04/10/23 15:16 Influenza Type A (PCR) Negative (Neg) 04/10/23 15:16 Influenza Type B (PCR) Negative (Neg) 04/10/23 15:16 RSV (RT-PCR) Negative (Neg) 04/10/23 15:[address] 04/10/23 14:30 CT SCAN OF THE CERVICAL SPINE CLINICAL HISTORY: Fall. COMPARISON STUDY: Cervical spine radiographs dated 09/01/2012. TECHNIQUE: CT scan of the cervical spine is performed from the skull base to the upper thoracic spine. Images are reviewed in the axial, sagittal, and coronal planes. IV contrast was not administered for this examination. A dose lowering technique was utilized adhering to the principles of ALARA. The examination is degraded by streak artifact from metallic spinal hardware. FINDINGS: Skeletal structures: The skeletal structures are osteopenic. There is no evidence of fracture or subluxation involving the cervical spine. Vertebral body height and alignment are maintained. There is straightening of the cervical lordosis. Anterior osteophytes are seen throughout. There is postsurgical change from laminectomy and posterior fusion seen from C3-T1. Interpedicular screws are present at all levels with the exception of C7. Lucency around the interpedicular screws and 3 cc suggest loosening. The odontoid process and lateral masses are intact. The atlantoaxial articulation is preserved noting productive degenerative change. The spinous processes appear intact. Intervertebral discs: There is moderate to severe multilevel degenerative disc space narrowing seen at all levels between C3-C4 and C6-C7. There is multilevel endplate sclerosis. Central canal: Grossly patent. Posterior disc osteophyte complexes are noted at C3-C4, C5-C6, and C6-C7. Soft tissues: The prevertebral and paraspinous soft tissues are within normal limits. There is mild atherosclerotic calcification of the carotid bulbs. Calvarium: The visualized calvarium at the skull base appears intact. Brain parenchyma: Partially visualized brain parenchyma at the skull base is within normal limits. Sinuses and mastoids: The visualized paranasal sinuses are clear. The mastoid air cells are well pneumatized. Lung apices: Clear as visualized. IMPRESSION: 1. There is no evidence of cervical spine fracture or subluxation. 2. Postsurgical change as above. 3. Lucency around the interpedicular screws in C3 suggests loosening. ACT 112: Negative or not required by law. Electronically signed by: Cb Bennett M.D. 04/10/2023 4:11 PM Chest X-Ray 04/10/23 14:30 XR chest 1V not portable HISTORY: 72 years-old Female weakness acute weakness. COMPARISON: 04/13/2021 TECHNIQUE: AP view of the chest FINDINGS: The heart is mildly enlarged. Atherosclerosis of the aorta. No pneumothorax, pleural effusion, airspace consolidation or pulmonary edema. Cervicothoracic f usion hardware. Degenerative changes of the shoulders and spine. IMPRESSION: No acute process. ACT 112: Negative or not required by law. The above report was generated using voice recognition software. It may contain grammatical, syntax or spelling errors. Electronically signed by: Eladio Pascual M.D. 04/10/2023 4:[address] 04/10/23 14:30 CT head/brain wo con CLINICAL HISTORY: fall, trauma Technique: Contiguous axial CT images of the head were acquired from the base of the skull to the vertex without intravenous contrast administration. Images were viewed in brain, subdural and bone windows. Automated dose lowering techniques and/or adjustment according to patient size were utilized for this exam. Comparison: Comparison is made to CT head 04/13/2021 Findings: The ventricles, basal cisterns, and cerebral sulci are normal. There is no acute intracranial hemorrhage or evidence of acute territorial infarction. Neither mass effect, shift of the midline structures, nor abnormal extra-axial fluid collections are shown. Imaged portions of the paranasal sinuses and mastoid air cells are clear. The orbits appear normal. There are no acute fractures of the calvaria or scalp swelling. Impression: No acute intracranial hemorrhage, no evidence of acute territorial infarction or other acute intracranial disease process. ACT 112: Negative or not required by law. Electronically signed by: Jonathan Duarte M.D. 04/10/2023 4:11 PM Hip/Pelvis X-Ray 04/10/23 14:30 XR hip RT 2V w pelvis HISTORY: 72 years-old Female fall, pain acute pain of the pelvis or right hip status post fall COMPARISON: 09/20/2018 TECHNIQUE: AP view the pelvis with 2 views of the right hip FINDINGS: Region hardware with discectomy changes of the lower lumbar spine. Mild to moderate osteoarthritis of the hips. No acute fracture, dislocation or avascular necrosis. Unremarkable soft tissues. IMPRESSION: No acute fracture or dislocation. ACT 112: Negative or not required by law. The above report was generated using voice recognition software. It may contain grammatical, syntax or spelling errors. Electronically signed by: Eladio Pascual M.D. 04/10/2023 4:38 PM Knee X-Ray 04/10/23 14:30 XR knee RT 3V HISTORY: 72 years-old Female fall, pain acute right knee pain status post fall COMPARISON: 02/01/2017 TECHNIQUE: 3 views of the right knee FINDINGS: No acute fracture, dislocation or significant osteoarthritis. Degenerative spurring of the patella. No large joint effusion. Demineralized appearance of the bones. IMPRESSION: No acute fracture or dislocation. ACT 112: Negative or not required by law. The above report was generated using voice recognition software. It may contain grammatical, syntax or spelling errors. Electronically signed by: Eladio Pascual M.D. 04/10/2023 4:[address] 04/10/23 14:30 CT lumbar spine wo con HISTORY: 72 years-old Female fall, acute low back pain status post fall pain status post fall COMPARISON: CTA chest 09/05/2019, lumbar spine radiograph 09/20/2018 TECHNIQUE: Multiple axial CT images of the lumbar spine were obtained without the use of IV contrast. A dose lowering technique was used consistent with the principals of MARC. FINDINGS: Atherosclerosis of the aorta and branch vessels. 3 mm nonobstructing left renal calculus. Mild dilatation of the bilateral ureters. No acute intrapelvic abnormality identified. Cholecystectomy. Posterior bilateral marya and screw fusion hardware at L4-S1 with associated discectomy changes. The hardware appears intact. Streak artifact from hardware limits the study. The L5-S1 disc spacer is positioned eccentrically within the left lateral aspect of intervertebral disc space well-defined posterior postoperative fluid collection. Moderate degeneration of the SI joints. No definite acute fracture identified. Suboptimal evaluation of the central canal and neural foramina are CT technique. IMPRESSION: 1. No acute fracture or subluxation identified. 2. Postoperative changes of the lumbar spine with posterior interbody marya and screw fusion and discectomy at L4-S1. The L5-S1 disc spacer is positioned eccentrically within the left lateral aspect of the intervertebral disc space. 3. Left nephrolithiasis. ACT 112: Negative or not required by law. The above report was generated using voice recognition software. It may contain grammatical, syntax or spelling errors. Electronically signed by: Eladio Pascual M.D. 04/10/2023 4:30 PM Hospital Course (1) Multiple falls: (2) Ambulatory dysfunction: (3) Lumbar spinal stenosis: This is a 72 y/o female with a history of COPD, CKD3a, diastolic dysfunction, dyslipidemia, HTN, osteoporosis, cervical stenosis s/p PCDF, lumbar stenosis s/p recent decompression/fusion who presented to the ED via EMS as a fall at home, down on the ground for >1 hr per pt. Pt was discharged from rehab five days ago but has had multiple falls at home and feels like her pain is worse since surgery. She has been taking the hydrocodone consistently every six hours and using the muscle relaxer at bedtime. These medications may be contributing to her recurrent falls. Her CT shows the L5-S1 disc spacer "eccentrically positioned within left lateral aspect of the intravertebral disc space" but it is unclear if this would correlate with her symptoms. She lives alone with help from her neighbors but no one with her consistently. Pain controlled with new regimen - added scheduled acetaminophen 650 mg Q8 hours, decreased hydrocodone-acetaminophen to every 8 hours PRN (not scheduled), and stop the tizanidine. Increased gabapentin to 600 mg HS, 300 mg BID. Spine Ortho consulted Started on IV dexamethasone by spine Ortho --discussed with Dr. Layne, no indication to continue steroids at discharge With the above medication adjustments, patient's pain was able to be controlled and she progressed well with therapy and will be discharged home with home health. Follow-up with Dr. Ly as previously scheduled. (4) Postoperative anemia: Post-operative anemia required one unit of PRBCs at [facility] Hgb 9.4 on 04/04 at [facility] Hgb 8.5 --> 9.0 today PCP to monitor CBC (5) Nonobstructive atherosclerosis of coronary artery: Continue ASA, statin, beta-randi (6) HTN (hypertension): BP controlled, continue lisinopril, HCTZ, metoprolol (7) COPD (chronic obstructive pulmonary disease): No signs of acute exacerbation (8) Depression: Stable, continue home meds Total Time Total Time Spent Total Time Spent (In Minutes): 40 Discharge Plan Discharge Items Patient Disposition: Home - Home Health Services Reason For Visit: Frequent falls Discharge Diagnosis: Frequent falls, generalized weakness, history of recent back surgery Condition on Discharge: Fair Activity: As commented below Non-emergency contact: Primary Care Provider Call non-emergency contact if: you have any medication questions, your symptoms worsen, your pain is not controlled and you have a fever Follow-up/Referrals: Cedric Downey MD [Primary Care Provider] - (Date & Time 04/17/2023 9:40 AM Provider Hannah Ospina MD Department [facility] ) Wyatt Ly MD [Outside Practitioners] - (Date & Time 04/21/2023 12:00 PM Provider Wyatt Ly MD Department Orthopaedics Spine Surgery, [facility] ) Diet: Heart Healthy Addtl Attending Provider Instructions: You came to the hospital for evaluation of frequent falls and generalized weakness after a recent back surgery. Your frequent falls were likely due to pain medication and muscle relaxants. The following adjustments were made in your medications: Take Tylenol 650 mg every 8 hours scheduled Hydrocodone/acetaminophen -1 tablet every 8 hours as needed Stop tizanidine (muscle relaxer) Gabapentin increased to 300 mg in the morning and afternoon and 600 mg at bedtime. Your blood counts were mildly low from recent surgery, you do not require blood transfusion. Your PCP can monitor this. A follow-up appointment has been made for you with your PCP, follow-up with Dr. Ly as previously scheduled. Home health has been arranged for you. It was a pleasure taking care of you. If you need to reach them over the [facility] hospitalist team about the knee, please call [phone]. FLASH Rahman Pending Studies at Discharge: No Stand-Alone Forms: My [facility], Pain - Opioid Pain Management, Smoking Cessation Medications and DC Order Prescriptions: New acetaminophen 325 mg Tablet 650 mg PO Q8H Qty: 1 0RF gabapentin 600 mg Tablet 600 mg PO HS Qty: 14 0RF gabapentin 300 mg Capsule 300 mg PO [id number] Qty: 14 0RF Continued albuterol sulfate 90 mcg/actuation HFA aerosol inhaler 2 puff INHALATION Q4H PRN (Reason: Shortness Of Breath Or Wheezing) alendronate 70 mg tablet 70 mg PO WK Rx Instructions: Monday ezetimibe [Zetia] 10 mg tablet 10 mg PO QAM sertraline 100 mg tablet 200 mg PO HS omeprazole 40 mg capsule,delayed release(DR/EC) 40 mg PO QAM aspirin 81 mg Tablet,Delayed Release (Dr/Ec) 81 mg PO QAM amitriptyline 10 mg tablet 20 mg PO HS calcium carbonate [Calcium 600] 600 mg calcium (1,500 mg) Tablet 600 mg PO QAM nitroglycerin 0.4 mg Tablet, Sublingual 0.4 mg sublingual UD 30 Days Qty: 25 0RF Rx Instructions: 1 tab sl as needed for cp hydrochlorothiazide 12.5 mg capsule 12.5 mg PO MOWEFR metoprolol succinate 25 mg tablet extended release 24 hr 12.5 mg PO QAM hydroxyzine HCl 25 mg tablet 25 mg PO Q6H PRN (Reason: Anxiety) Emgality Pen 120 mg/mL pen injector 120 mg subcut MONTHLY atorvastatin 80 mg tablet 80 mg PO DAILY lisinopril 10 mg tablet 10 mg PO DAILY Changed hydrocodone-acetaminophen 5-325 mg tablet 1 tab PO Q8H PRN (Reason: pain) 1 Days Qty: 1 0RF Discontinued tizanidine 4 mg tablet 4 mg PO Q8H PRN (Reason: Muscle Spasm) gabapentin 300 mg capsule 300 mg PO Q8H Krames/Other Patient Handouts: Preventing Deep Vein Thrombosis Admission Data Admit Date/Time: 04/10/23 17:33 Attending Provider: Mckenzie Love Admit Provider: Britany Todd Primary Care Provider: Cedric Downey Other Providers: Britany Todd ; [facility] ; Milad Layne ; [facility] Other Interventions: Discharge Summary Assessment (RN) Last Done: 04/12/23 15:20 Supervising Physician Co-Signing Physician Notes Patient seen and examined at bedside as a follow-up of multiple falls, ambulatory dysfunction, recent lumbar spine surgery for lumbar spinal stenosis. Patient reports improving strength and improving pain and would like to go home. Orthospine evaluated, appreciate recommendation. ROS fairly negative for infection, no fever or chills, no loss of control of bowel and bladder, denies out of proportion back pain. On exam, lower back with well-healing operative scar. No tenderness. Rest of the exam as above. I have seen and examined the patient and have discussed the case with the provider above. I agree with the assessment and plan as stated.
== END 2023-04-12 18:30 | disposition home health service (06) ==
LOC: ED 13:57 → EDINP 13:57 → SUATTDRO 17:33 → 3E 21:44

== ENCOUNTER 2023-11-07 20:23 | Observation (INO) ==
[2023-11-07] MEDS: NITROGLYCERIN SL 0.4 MG/TAB TAB SL STA (20:46)
[2023-11-07] MEDS: NITROGLYCERIN 2% OINTMENT 30GM TUBE EXT STA (20:46)
[2023-11-07] MEDS: SODIUM CHLORIDE 0.9% 1,000 ML IV STA (20:47)
[2023-11-07 20:50] LABS: Basophils # (auto) 0.09 K/uL (0.00-0.20); Basophils % (auto) 0.9 %; Eosinophils # (auto) 0.22 K/uL (0.00-0.50); Eosinophils % (auto) 2.2 %; Hemoglobin 11.5 g/dl (12.0-16.0); Immature Granulocytes # (auto) 0.04 K/uL (0.01-0.20); Immature Granulocytes % (auto) 0.4 %; Lymphocytes # (auto) 3.65 K/uL (1.20-3.40); Lymphocytes % (auto) 35.7 %; Mean Corpuscular Hemoglobin 29.1 pg (25.0-34.0); Mean Corpuscular Hgb Conc 31.9 g/dL (32.0-36.0); Mean Corpuscular Volume 91.1 fL (80.0-100.0); Mean Platelet Volume 10.1 fL (9.4-12.4); Monocytes # (auto) 0.98 K/uL (0.11-0.59); Monocytes % (auto) 9.6 %; Neutrophils # (auto) 5.25 K/uL (1.40-6.50); Neutrophils % (auto) 51.2 %; Platelet Count 221 K/uL (130-400); RDW Coefficient of Variation 12.7 % (11.5-14.5); RDW Standard Deviation 42.2 fL (36.4-46.3); Red Blood Count 3.95 M/uL (4.20-5.40); White Blood Count 10.23 K/ul (4.8-10.8)
[2023-11-07 21:16] LABS: BUN Creatinine Ratio 15.3 (10-20); Calcium 9.4 mg/dl (8.6-10.3); Est GFR (African American) 39.6 ml/min; Est GFR (Non-African American) 34.2 ml/min; Potassium 4.2 mmol/L (3.5-5.1)
[2023-11-07 21:23] LABS: Troponin I High Sensitivity 3.3 pg/ml (0-14)
[2023-11-07 21:25] LABS: INR 0.9 (0.9-1.1); Partial Thromboplastin Time 29 Seconds (21-31); Prothrombin Time 10.2 Seconds (9.0-12.0)
--- NOTE | 2023-11-07 22:43 | Emergency Department Note ---
History of Present Illness General Chief Complaint: Chest Pain Stated Complaint: L CHEST PAIN, RADIATION TO SHOULDER AND NECK Time Seen by Provider: 11/07/23 20:29 History of Present Illness Provider Complaint: chest pain Time: 19:30 Duration: improved Onset: other (Occurred after winning money playing bingo) Pain Location: left chest Pain Radiation: LUE Severity: moderate Maximum Pain Intensity: 8 Current Pain Intensity: 4 Quality: + heaviness and + sharp Relieved By: + nitroglycerin Exacerbated By: + nothing Context: no recent illness, no recent surgery, no recent immobilization, no recent travel, no trauma/injury, no new medications or no history of DVT/PE Associated symptoms: no nausea, no vomiting, no diaphoresis, no dyspnea, no syncope, no palpitations, no fever, no cough or no leg swelling Treatments prior to arrival: aspirin and nitroglycerin Home Medications Medication Instructions Recorded Confirmed Type amitriptyline 10 mg tablet 20 mg PO HS 09/20/18 04/22/23 History aspirin 81 mg tablet,delayed 81 mg PO QAM 09/20/18 04/22/23 History release omeprazole 40 mg capsule,delayed 40 mg PO QAM 09/20/18 04/22/23 History release sertraline 100 mg tablet 200 mg PO HS 09/20/18 04/22/23 History calcium carbonate 600 mg calcium 600 mg PO QAM 01/02/19 04/22/23 History (1,500 mg) tablet (Calcium) alendronate 70 mg tablet 70 mg PO WK 11/05/19 04/22/23 History ezetimibe 10 mg tablet (Zetia) 10 mg PO QAM 11/05/19 04/22/23 History hydrochlorothiazide 12.5 mg capsule 12.5 mg PO MOWEFR 04/13/21 04/22/23 History metoprolol succinate 25 mg 12.5 mg PO QAM 04/13/21 04/22/23 History tablet,extended release 24 hr atorvastatin 80 mg tablet 80 mg PO QPM 04/10/23 04/22/23 History galcanezumab-gnlm 120 mg/mL 120 mg subcut MONTHLY 04/10/23 04/22/23 History subcutaneous pen injector (Emgality Pen) hydroxyzine HCl 25 mg tablet 25 mg PO Q6H PRN Anxiety 04/10/23 04/22/23 History lisinopril 10 mg tablet (Zestril) 10 mg PO QAM 04/10/23 04/22/23 History acetaminophen 325 mg tablet 650 mg (2 x 325 mg) PO Q8H #1 tab 04/12/23 04/22/23 Rx gabapentin 300 mg capsule 300 mg PO BID17 #14 caps 04/12/23 04/22/23 Rx gabapentin 600 mg tablet 600 mg PO HS #14 tabs 04/12/23 04/22/23 Rx hydrocodone 5 mg-acetaminophen 325 1 tab PO Q8H PRN pain 1 day #1 tab 04/12/23 04/22/23 Rx mg tablet cefuroxime axetil 500 mg tablet 500 mg PO BID 04/22/23 04/22/23 History cephalexin 500 mg capsule See Rx Instructions .Route .COMPLEX 04/22/23 04/22/23 History cyclobenzaprine 5 mg tablet 5 mg PO HS PRN Muscle Spasm 04/22/23 04/22/23 History nitroglycerin 0.4 mg sublingual 0.4 mg sublingual UD PRN Other 04/22/23 04/22/23 History tablet tizanidine 4 mg tablet 4 mg PO Q8H PRN Spasms 04/22/23 04/22/23 History umeclidinium 62.5 mcg-vilanterol 1 inh inhalation QAM 04/22/23 04/22/23 History 25 mcg/actuation powdr for inhalation (Anoro Ellipta) Allergies Allergy/AdvReac Type Severity Reaction Status Date / Time latex Allergy Mild RASH Verified 04/13/21 18:42 Iodinated Contrast Media Allergy Unknown . Verified 04/13/21 18:42 Penicillins Allergy Unknown Unknown Verified 04/13/21 18:42 [email or web address] AdvReac Severe NAUSEA Verified 04/13/21 18:42 benzalkonium chloride AdvReac Intermediate VERTIGO Verified 04/13/21 18:42 ibuprofen AdvReac Intermediate ACID REFLEX Verified 04/13/21 18:42 ofloxacin AdvReac Intermediate VERTIGO Verified 04/13/21 18:42 Corticosteroids AdvReac Unknown [email or web address] Verified 04/13/21 18:42 (Glucocorticoids) and hyper DM-APAP-CPM Allergy Severe ANAPHYLAXIS Uncoded 04/13/21 18:50 Past Med/Surg History Medical History HTN (hypertension) Lumbar spinal stenosis Cervical spinal stenosis HLD (hyperlipidemia) CKD (chronic kidney disease), stage III Vasospastic angina NSTEMI (non-ST elevated myocardial infarction) Nonobstructive atherosclerosis of coronary artery (2018) LAD and circumflex free of major disease. RCA with 40 to 50% mid right coronary stenosis and 40% stenosis at the takeoff of the PDA. ACS (acute coronary syndrome) Tobacco use GERD (gastroesophageal reflux disease) Diastolic dysfunction Nocturnal hypoxia reported secondary to COPD. Pt not on home oxygen HS secondary to reported insurance issues Palpitation Depression Osteoporosis Osteoarthritis Anxiety COPD (chronic obstructive pulmonary disease) Surgical History History of section History of arthroscopy of right shoulder History of carpal tunnel surgery S/P cervical spinal fusion History of lumbar fusion History of cholecystectomy History of hysterectomy Family History Sister Breast cancer Aunt Breast cancer Father Coronary heart disease Brother Hypertension Father Hypertension Social History Smoking Status: Never smoker Tobacco Type: Cigarettes Second Hand Exposure: No; Do You Dip or Chew Tobacco: No; Hx Alcohol Use: No Hx Substance Use: No Preferred Language: Romanian Communication Ability: Effective Blood Bank Laboratory Technician Required: No Beliefs That Will Affect Care: None Current Living Situation: Alone Current Living Situation Comment: Apartment complex Feels Safe at Home: Yes Assistive Devices: Cane and Walker Physical Exam Vital Signs Vital Signs - 24 hr 11/07/23 20:28 11/07/23 20:40 11/07/23 21:16 Temperature 36.8 C Temperature Source Oral Pulse Rate 72 68 Respiratory Rate 18 Respiratory Effort / Characteristics Non-Labored Respiratory Depth Normal Blood Pressure 119/66 Blood Pressure Mean 83 Pulse Oximetry 98 98 Oxygen Delivery Method Room Air Room Air Sepsis Recent Fever Within 48 Hours No Sepsis New/Unexplained Change in Mental Status N/A Sepsis Action Taken by Nursing No Action Required Physical Exam GENERAL: oriented to person, place, and time. appears well-developed and well- nourished. HENT: Exam performed. - Head: Normocephalic and atraumatic. EYES: Conjunctivae and EOM are normal. Right eye exhibits no discharge. Left eye exhibits no discharge. No scleral icterus. NECK: Normal range of motion. Neck supple. No JVD present. CV: Normal rate, regular rhythm, normal heart sounds and intact distal pulses. There is no peripheral edema. Palpable radial pulses bue. PULM/CHEST: Effort normal and breath sounds normal. No respiratory distress. No stridor. no wheezes. no rales. ABD: The abdomen is soft. There is no tenderness. NEURO: Motor and sensation grossly intact. SKIN: Skin is warm and dry. He is not diaphoretic. PSYCH: normal mood and affect. Behavior is normal. Judgment and thought content normal. Course Course 2028: The patient was evaluated in room C10. A complete history and physical exam was performed Cardiac monitoring: An order was placed for continuous cardiac monitoring. The monitor shows a rate of 70 with sinus rhythm interpreted by ct 2135: Vital signs stable. Labs and imaging within normal limits. Patient has moderate HEART score. [facility] HEART Score for Major Cardiac Events from [email or web address] on 11/07/2023 All calculations should be rechecked by clinician prior to use RESULT SUMMARY: 5 points Moderate Score (4-6 points) Risk of MACE of 12-16.6%. INPUTS: History > 1 = Moderately suspicious EKG > 0 = Normal Age > 2 = >=5 Risk factors > 2 = >= risk factors or history of atherosclerotic disease Initial troponin > 0 = <=ormal limit Administered Medications Discontinued Medications Sodium Chloride (Nss) 1,000 mls @ 999 mls/hr IV .Q1H1M STA Stop: 11/07/23 21:35 Last Infusion: 11/07/23 21:50 Dose: Infused Documented By: Admin: 11/07/23 20:47 Dose: 999 mls/hr Documented By: [facility] Nitroglycerin (Nitroglycerin Sl 0.4 Mg/Tab Tab) 0.4 mg SL NOW STA Stop: 11/07/23 20:36 Last Admin: 11/07/23 20:46 Dose: 0.4 mg Documented By: NEETU Nitroglycerin (Nitroglycerin 2% Ointment 30gm Tube) 1 inch EXT NOW STA Stop: 11/07/23 20:36 Last Admin: 11/07/23 20:46 Dose: 1 inch Documented By: [facility] Medical Decision Making Laboratory Data Attestation: I reviewed the patient's lab results. 11/07/23 20:12 11/07/23 20:12 Labs: Lab Results 11/07/23 Range/Units 20:12 WBC 10.23 (4.8-10.8) K/ul RBC 3.95 L (4.20-5.40) M/uL Hgb 11.5 L (12.0-16.0) g/dl Hct 36.0 L (37.0-47.0) % MCV 91.1 (80.0-100.0) fL MCH 29.1 (25.0-34.0) pg MCHC 31.9 L (32.0-36.0) g/dL RDW Std Deviation 42.2 (36.4-46.3) fL RDW Coeff of Melany 12.7 (11.5-14.5) % Plt Count 221 (130-400) K/uL MPV 10.1 (9.4-12.4) fL Immature Gran % (Auto) 0.4 % Neut % (Auto) 51.2 % Lymph % (Auto) 35.7 % [place] % (Auto) 9.6 % Eos % (Auto) 2.2 % Baso % (Auto) 0.9 % Neut # (Auto) 5.25 (1.40-6.50) K/uL Lymph # (Auto) 3.65 H (1.20-3.40) K/uL [place] # (Auto) 0.98 H (0.11-0.59) K/uL Eos # (Auto) 0.22 (0.00-0.50) K/uL Baso # (Auto) 0.09 (0.00-0.20) K/uL Immature Gran # (Auto) 0.04 (0.01-0.20) K/uL PT 10.2 (9.0-12.0) Seconds INR 0.9 (0.9-1.1) APTT 29 (21-31) Seconds PTT Ratio 1.0 Sodium 139 (136-145) mmol/L Potassium 4.2 (3.5-5.1) mmol/L Chloride 105 (98-107) mmol/L Carbon Dioxide 27 (21-32) mmol/L Anion Gap 7 (3-11) BUN 23 (6-23) mg/dl Creatinine 1.50 H (0.6-1.2) mg/dl Est Cr Clr Drug Dosing 29.0 ml/min Est GFR ( Amer) 39.6 ml/min Est GFR (Non-Af Amer) 34.2 ml/min BUN/Creatinine Ratio 15.3 (10-20) Glucose 100 H (70-99(Fasting)) mg/dl Calcium 9.4 (8.6-10.3) mg/dl Magnesium 2.0 (1.7-2.4) mg/dl Troponin I High Sens 3.3 (0-14) pg/ml Lipase 39 (11-82) U/L Imaging Data Chest x-ray: Attestation: I personally reviewed and interpreted this imaging study as follows: My impression: Chest x-ray negative. Airway clear. No pneumothorax. No consolidation. No cardiomegaly or cephalization.. No free air under the diaphragm. No fractures of the skeletal structures. ECG Data Attestation: I personally reviewed and interpreted this ECG as follows: Additional Comments: EKG #1: Sinus rhythm with a rate of 72. [place] QRS and QTc intervals within normal limits. No ST elevation or ST depression. EKG #2: Sinus rhythm with a rate of 65. [place] QRS and QTc intervals are within normal limits. No ST elevation or ST depression. [facility] Narrative 2028: The patient was evaluated in room C10. A complete history and physical exam was performed Cardiac monitoring: An order was placed for continuous cardiac monitoring. The monitor shows a rate of 70 with sinus rhythm interpreted by me 2135: Vital signs stable. Labs and imaging within normal limits. Patient has moderate HEART score. [facility] HEART Score for Major Cardiac Events from [email or web address] on 11/07/2023 All calculations should be rechecked by clinician prior to use RESULT SUMMARY: 5 points Moderate Score (4-6 points) Risk of MACE of 12-16.6%. INPUTS: History > 1 = Moderately suspicious EKG > 0 = Normal Age > 2 = >=5 Risk factors > 2 = >= risk factors or history of atherosclerotic disease Initial troponin > 0 = <=ormal limit Impression & Plan Chest pain Discharge Plan Visit Data Chief Complaint: Chest Pain Stated Complaint: L CHEST PAIN, RADIATION TO SHOULDER AND NECK ED Provider: Radha,Davon Discharge Problem: Chest pain Patient Disposition: Being Evaluated by Hospitalist Forms Stand Alone Forms: My [facility] Prescriptions Prescriptions: No Action alendronate 70 mg tablet 70 mg PO WK Rx Instructions: Monday ezetimibe [Zetia] 10 mg tablet 10 mg PO QAM sertraline 100 mg tablet 200 mg PO HS omeprazole 40 mg capsule,delayed release(DR/EC) 40 mg PO QAM aspirin 81 mg Tablet,Delayed Release (Dr/Ec) 81 mg PO QAM amitriptyline 10 mg tablet 20 mg PO HS calcium carbonate [Calcium 600] 600 mg calcium (1,500 mg) Tablet 600 mg PO QAM hydrochlorothiazide 12.5 mg capsule 12.5 mg PO MOWEFR metoprolol succinate 25 mg tablet extended release 24 hr 12.5 mg PO QAM hydroxyzine HCl 25 mg tablet 25 mg PO Q6H PRN (Reason: Anxiety) Emgality Pen 120 mg/mL pen injector 120 mg subcut MONTHLY atorvastatin 80 mg tablet 80 mg PO QPM lisinopril [Zestril] 10 mg tablet 10 mg PO QAM acetaminophen 325 mg Tablet 650 mg PO Q8H Qty: 1 0RF gabapentin 600 mg Tablet 600 mg PO HS Qty: 14 0RF gabapentin 300 mg Capsule 300 mg PO BID17 Qty: 14 0RF hydrocodone-acetaminophen 5-325 mg tablet 1 tab PO Q8H PRN (Reason: pain) 1 Days Qty: 1 0RF tizanidine 4 mg tablet 4 mg PO Q8H PRN (Reason: Spasms) cephalexin 500 mg capsule See Rx Instructions .ROUTE .COMPLEX Rx Instructions: pt hasnt got to start medication yet. cefuroxime axetil 500 mg tablet 500 mg PO BID Rx Instructions: 1 am and 1 hs cyclobenzaprine 5 mg tablet 5 mg PO HS PRN (Reason: Muscle Spasm) Anoro Ellipta 62.5-25 mcg/actuation blister with device 1 inh INHALATION QAM nitroglycerin 0.4 mg tablet, sublingual 0.4 mg sublingual UD PRN (Reason: Other) Rx Instructions: 1 tab sl as needed for cp Referrals Referrals: Cedric Downey MD [Primary Care Provider] - Discharge Problem: Chest pain Qualifiers: Chest pain type: unspecified Qualified Code(s): R07.9 - Chest pain, unspecified
--- NOTE | 2023-11-07 23:36 | History & Physical Report ---
Date of Service November 07, 2023 Assessment & Plan (1) Chest pain: Plan: Rule out ACS given nitro relief hx nonobstructive CAD as per records chronic diastolic heart failure as per records (EF 60%, TTE 2022), equivocal volume status given fluid retention and kidney dysfunction hx PVD as per records hypertension, stable hyperlipidemia on statin Rx chronic respiratory failure as per records secondary to COPD, baseline lung status anxiety/mood disorder, stable chronic anemia, hemoglobin at baseline past tobacco abuse OBS PCU Continue home aspirin, statin Rx for secondary CAD prevention Follow troponin Cardio consult Re: Chest pain, history of CAD NPO after midnight until patient seen by cardiology in anticipation of ischemic workup Baseline UA, monitor creatinine response to IVF, hold lisinopril and HCTZ until creatinine back to baseline DVT prophylaxis. Heparin subcu Full code Text document was generated using [employer] voice recognition software. It may contain grammatical or spelling errors. Kindly contact undersigned for clarification of any documentation item in question. History of Present Illness Chief Complaint: Chest pain Primary Care Provider: Cedric Downey MD History obtained from patient and records. Medical history significant for chronic diastolic heart failure as per records (EF 60%, TTE 2022), hx nonobstructive CAD/ PVD as per records, hypertension, hyperlipidemia, chronic respiratory failure as per records, COPD as per records, migraine, GERD, anxiety/mood disorder, chronic anemia (baseline hemoglobin of 11), past tobacco abuse. Last confinement March 2023 for ambulatory dysfunction following back surgery. Recent ER visit July 2023 for left-sided chest pain. Patient declined admission recommendation by ER provider. Outpatient stress test contemplated as per ED provider note. Patient experienced sharp left-sided chest pain today associated with shortness of breath, diaphoresis with radiation to the shoulder and neck. Patient also gives symptoms of fluid retention over the last week. This occurred after winning money playing bingo. Episode similar to admission in the past which led to cardiac catheterization as per patient. Patient compliant with home medications. Denies unusual stress. Discomfort relieved by nitro spray administered by EMS. Nitropaste applied at the ER. Patient currently comfortable at the ER. Medical History as above Surgical History : Carpal surgery, cystoscopy, D&C, cholecystectomy, shoulder surgery, hysterectomy, spine surgery Family History : Breast cancer, heart disease Personal/Social history : Past tobacco abuse, no EtOH intake, retired from caregiver work Allergies Allergy/AdvReac Type Severity Reaction Status Date / Time acetaminophen Allergy Severe Anaphylaxis Verified 11/07/23 23:50 chlorpheniramine Allergy Severe Anaphylaxis Verified 11/07/23 23:50 dextromethorphan Allergy Severe Anaphylaxis Verified 11/07/23 23:50 latex Allergy Mild RASH Verified 04/13/21 18:42 Iodinated Contrast Media Allergy Unknown . Verified 04/13/21 18:42 Penicillins Allergy Unknown Unknown Verified 04/13/21 18:42 [email or web address] AdvReac Severe NAUSEA Verified 04/13/21 18:42 benzalkonium chloride AdvReac Intermediate VERTIGO Verified 04/13/21 18:42 ibuprofen AdvReac Intermediate ACID REFLEX Verified 04/13/21 18:42 ofloxacin AdvReac Intermediate VERTIGO Verified 04/13/21 18:42 Corticosteroids AdvReac Unknown [email or web address] Verified 04/13/21 18:42 (Glucocorticoids) and hyper Home Medications Medication Instructions Recorded Confirmed Type amitriptyline 10 mg tablet 20 mg PO HS 09/20/18 11/08/23 History aspirin 81 mg tablet,delayed 81 mg PO QAM 09/20/18 11/08/23 History release omeprazole 40 mg capsule,delayed 40 mg PO QAM 09/20/18 11/08/23 History release sertraline 100 mg tablet 200 mg PO HS 09/20/18 11/08/23 History calcium carbonate 600 mg calcium 600 mg PO QAM 01/02/19 11/08/23 History (1,500 mg) tablet (Calcium) alendronate 70 mg tablet 70 mg PO WK 11/05/19 11/08/23 History ezetimibe 10 mg tablet (Zetia) 10 mg PO QAM 11/05/19 11/08/23 History hydrochlorothiazide 12.5 mg capsule 12.5 mg PO MOWEFR 04/13/21 11/08/23 History atorvastatin 80 mg tablet 80 mg PO QPM 04/10/23 11/08/23 History galcanezumab-gnlm 120 mg/mL 120 mg subcut MONTHLY 04/10/23 11/08/23 History subcutaneous pen injector (Emgality Pen) hydroxyzine HCl 25 mg tablet 25 mg PO Q6H PRN Anxiety 04/10/23 11/08/23 History lisinopril 10 mg tablet (Zestril) 10 mg PO QAM 04/10/23 11/08/23 History acetaminophen 325 mg tablet 650 mg (2 x 325 mg) PO Q8H #1 tab 04/12/23 11/08/23 Rx gabapentin 300 mg capsule 300 mg PO BID17 #14 caps 04/12/23 11/08/23 Rx gabapentin 600 mg tablet 600 mg PO HS #14 tabs 04/12/23 11/08/23 Rx hydrocodone 5 mg-acetaminophen 325 1 tab PO Q8H PRN pain 1 day #1 tab 04/12/23 11/08/23 Rx mg tablet cyclobenzaprine 5 mg tablet 5 mg PO HS PRN Muscle Spasm 04/22/23 11/08/23 History nitroglycerin 0.4 mg sublingual 0.4 mg sublingual UD PRN Other 04/22/23 11/08/23 History tablet tizanidine 4 mg tablet 4 mg PO Q8H PRN Spasms 04/22/23 11/08/23 History umeclidinium 62.5 mcg-vilanterol 1 inh inhalation QAM 04/22/23 11/08/23 History 25 mcg/actuation powdr for inhalation (Anoro Ellipta) Past Med/Surg History Medical History HTN (hypertension) Lumbar spinal stenosis Cervical spinal stenosis HLD (hyperlipidemia) CKD (chronic kidney disease), stage III Vasospastic angina NSTEMI (non-ST elevated myocardial infarction) Nonobstructive atherosclerosis of coronary artery (2018) LAD and circumflex free of major disease. RCA with 40 to 50% mid right coronary stenosis and 40% stenosis at the takeoff of the PDA. ACS (acute coronary syndrome) Tobacco use GERD (gastroesophageal reflux disease) Diastolic dysfunction Nocturnal hypoxia reported secondary to COPD. Pt not on home oxygen HS secondary to reported insurance issues Palpitation Depression Osteoporosis Osteoarthritis Anxiety COPD (chronic obstructive pulmonary disease) Surgical History History of section History of arthroscopy of right shoulder History of carpal tunnel surgery S/P cervical spinal fusion History of lumbar fusion History of cholecystectomy History of hysterectomy Family History Sister Breast cancer Aunt Breast cancer Father Coronary heart disease Brother Hypertension Father Hypertension Social History Smoking Status: Former smoker Tobacco Type: Cigarettes Second Hand Exposure: No; Do You Dip or Chew Tobacco: No; Hx Alcohol Use: No Hx Substance Use: No Preferred Language: Japanese Communication Ability: Effective Risk Management Analyst Required: No Beliefs That Will Affect Care: None Current Living Situation: Alone Current Living Situation Comment: Apartment Feels Safe at Home: Yes Safety Concerns: Feels Safe At This Time Assistive Devices: Denture - Upper, Denture - Lower and Walker Assistive Devices Comment: walker for long distances Review of Systems Review of Systems: As per HPI, all other systems reviewed and negative Physical Exam Physical Exam: GENERAL: Comfortable, obese, pleasant, no respiratory distress SKIN: Pallor, warm HEENT: Pale palpebral conjunctivae, no ptosis, dry buccal mucosa NECK : Supple, short neck, no tenderness CHEST : Decreased breath sounds , no tenderness HEART : RRR, no obvious murmurs ABDOMEN: Some distention, nontender EXTREMITIES : Minimal LE swelling, no LE tenderness, no other conspicuous deformities noted NEUROLOGIC : Coherent, no facial asymmetry, no other gross focality Results & Data Results & Data Vital Signs (Past 12 Hours) Vital Signs Temp Pulse Pulse Resp BP BP Pulse Ox 11/07/23 23:26 64 20 124/64 95 11/07/23 22:00 63 15 116/54 L 97 11/07/23 21:16 98 11/07/23 21:00 66 18 112/57 L 92 11/07/23 20:40 68 11/07/23 20:28 36.8 C 72 18 119/66 98 O2 Del Method 11/07/23 23:26 Room Air 11/07/23 22:00 Room Air 11/07/23 21:16 Room Air 11/07/23 21:00 Room Air 11/07/23 20:40 11/07/23 20:28 Room Air Laboratory Results Laboratory Results WBC 10.23 K/ul (4.8-10.8) 11/07/23 20:12 RBC 3.95 M/uL (4.20-5.40) L 11/07/23 20:12 Hgb 11.5 g/dl (12.0-16.0) L 11/07/23 20:12 Hct 36.0 % (37.0-47.0) L 11/07/23 20:12 MCV 91.1 fL (80.0-100.0) 11/07/23 20:12 MCH 29.1 pg (25.0-34.0) 11/07/23 20:12 MCHC 31.9 g/dL (32.0-36.0) L 11/07/23 20:12 RDW Std Deviation 42.2 fL (36.4-46.3) 11/07/23 20:12 RDW Coeff of Melany 12.7 % (11.5-14.5) 11/07/23 20:12 Plt Count 221 K/uL (130-400) 11/07/23 20:12 MPV 10.1 fL (9.4-12.4) 11/07/23 20:12 Immature Gran % (Auto) 0.4 % 11/07/23 20:12 Neut % (Auto) 51.2 % 11/07/23 20:12 Lymph % (Auto) 35.7 % 11/07/23 20:12 [place] % (Auto) 9.6 % 11/07/23 20:12 Eos % (Auto) 2.2 % 11/07/23 20:12 Baso % (Auto) 0.9 % 11/07/23 20:12 Neut # (Auto) 5.25 K/uL (1.40-6.50) 11/07/23 20:12 Lymph # (Auto) 3.65 K/uL (1.20-3.40) H 11/07/23 20:12 [place] # (Auto) 0.98 K/uL (0.11-0.59) H 11/07/23 20:12 Eos # (Auto) 0.22 K/uL (0.00-0.50) 11/07/23 20:12 Baso # (Auto) 0.09 K/uL (0.00-0.20) 11/07/23 20:12 Immature Gran # (Auto) 0.04 K/uL (0.01-0.20) 11/07/23 20:12 PT 10.2 Seconds (9.0-12.0) 11/07/23 20:12 INR 0.9 (0.9-1.1) 11/07/23 20:12 APTT 29 Seconds (21-31) 11/07/23 20:12 PTT Ratio 1.0 11/07/23 20:12 Sodium 139 mmol/L (136-145) 11/07/23 20:12 Potassium 4.2 mmol/L (3.5-5.1) 11/07/23 20:12 Chloride 105 mmol/L (98-107) 11/07/23 20:12 Carbon Dioxide 27 mmol/L (21-32) 11/07/23 20:12 Anion Gap 7 (3-11) 11/07/23 20:12 BUN 23 mg/dl (6-23) 11/07/23 20:12 Creatinine 1.50 mg/dl (0.6-1.2) H 11/07/23 20:12 Est Cr Clr Drug Dosing 29.0 ml/min 11/07/23 20:12 Est GFR ( Amer) 39.6 ml/min 11/07/23 20:12 Est GFR (Non-Af Amer) 34.2 ml/min 11/07/23 20:12 BUN/Creatinine Ratio 15.3 (10-20) 11/07/23 20:12 Glucose 100 mg/dl (70-99(Fasting)) H 11/07/23 20:12 Calcium 9.4 mg/dl (8.6-10.3) 11/07/23 20:12 Magnesium 2.0 mg/dl (1.7-2.4) 11/07/23 20:12 Troponin I High Sens 3.3 pg/ml (0-14) 11/07/23 20:12 Lipase 39 U/L (11-82) 11/07/23 20:12 Diagnostic Findings Chest x-ray as per my interpretation atelectasis EKG as per my interpretation : Rate 70, NSR, LAD, LAFB, no ischemia (1) Chest pain Chest pain type: unspecified Qualified Code(s): R07.9 - Chest pain, unspecified
[2023-11-07] MEDS ORDERED: PROMETHAZINE HCL 6.25 MG in SODIUM CHLORIDE 0.9% 50 ML IV PRN (23:38)
[2023-11-07] MEDS ORDERED: HYDROmorphone INJ 0.5 MG/0.5 ML SYR IV PRN (23:38)
[2023-11-08] MEDS: ALBUMIN 25% 25 GM/100 ML VIAL IV ONE ×2 (00:07→08:28)
[2023-11-08 00:51] LABS: Appearance Urine Clear (Clear); Bilirubin Urine Negative (Negative); Blood Urine Negative (Negative); Color Urine Yellow; Glucose Urine UA Negative (Negative); Ketones Urine Negative (Negative); Leukocyte Esterase Urine Negative (Negative); Nitrite Urine Negative (Negative); Protein Urine Negative (Negative); Urobilinogen Urine Negative (Negative); pH Urine 5.5 (4.5-7.5)
[2023-11-08] MEDS ORDERED: ACETAMINOPHEN 325 MG TAB PO PRN (01:02)
[2023-11-08] MEDS ORDERED: hydrOXYzine HCl 25 MG TAB PO PRN (02:11)
[2023-11-08] MEDS ORDERED: tiZANidine HCL 4 MG TABLET PO PRN (02:11)
[2023-11-08 05:16] LABS: Basophils % (auto) 1.2 %; Eosinophils # (auto) 0.27 K/uL (0.00-0.50); Eosinophils % (auto) 3.2 %; Hematocrit (blood only) 30.8 % (37.0-47.0); Hemoglobin 10.1 g/dl (12.0-16.0); Immature Granulocytes # (auto) 0.03 K/uL (0.01-0.20); Immature Granulocytes % (auto) 0.4 %; Lymphocytes # (auto) 2.87 K/uL (1.20-3.40); Lymphocytes % (auto) 33.9 %; Mean Corpuscular Hemoglobin 29.6 pg (25.0-34.0); Mean Corpuscular Hgb Conc 32.8 g/dL (32.0-36.0); Mean Corpuscular Volume 90.3 fL (80.0-100.0); Mean Platelet Volume 10.1 fL (9.4-12.4); Monocytes # (auto) 0.88 K/uL (0.11-0.59); Monocytes % (auto) 10.4 %; Neutrophils # (auto) 4.32 K/uL (1.40-6.50); Neutrophils % (auto) 50.9 %; Platelet Count 194 K/uL (130-400); RDW Coefficient of Variation 12.6 % (11.5-14.5); RDW Standard Deviation 41.4 fL (36.4-46.3); Red Blood Count 3.41 M/uL (4.20-5.40); White Blood Count 8.47 K/ul (4.8-10.8)
[2023-11-08 05:30] LABS: BUN Creatinine Ratio 17.2 (10-20); Calcium 8.6 mg/dl (8.6-10.3); Chol HDL Ratio 2.5 (0-5); Creatinine Clr Calc Pharmacy 34.7 ml/min; Est GFR (African American) 50.9 ml/min; Est GFR (Non-African American) 43.9 ml/min; Potassium 4.3 mmol/L (3.5-5.1)
[2023-11-08 05:35] LABS: Troponin I High Sensitivity 3.4 pg/ml (0-14)
[2023-11-08 05:38] LABS: Partial Thromboplastin Ratio 1.1; Partial Thromboplastin Time 30 Seconds (21-31)
[2023-11-08] MEDS: HEPARIN SOD 5,000 UNIT/0.5 ML VIAL SQ SCH (06:02)
--- NOTE | 2023-11-08 06:50 | XRay Report ---
XR chest 1V portable HISTORY: Left-sided chest pain. COMPARISON: Chest 08/02/2023. FINDINGS: No pneumothorax. No pleural effusions. The heart remains borderline enlarged. A few bibasil ar linear densities favor subsegmental atelectasis or scarring. Otherwise, no focal lung consolidatio ns to suggest a pneumonia. No evidence for pulmonary edema. There are calcifications within the aorti c knob. Cervical spinal fusion hardware is again noted. IMPRESSION: A few bibasilar linear densities favor subsegmental atelectasis or scarring. Otherwise, no acute proc ess within the chest. ACT 112: Negative or not required by law. Electronically signed by: Bello Vivas M.D. 11/08/2023 6:49 AM
--- NOTE | 2023-11-08 08:20 | Cardiology Consultation ---
Date of Consultation November 08, 2023 Assessment & Plan (1) Atypical chest pain: (2) HTN (hypertension): (3) Nonobstructive atherosclerosis of coronary artery: Plan IMPRESSION: 73-year-old female with longstanding history of atypical chest pain. Symptoms have been ongoing for many years and she has had multiple heart catheterizations for similar symptoms. Stressors trigger symptoms. Sublingual nitroglycerin/Nitropaste does help her symptoms Inpatient EKG without acute ischemic changes. High-sensitivity troponins have been negative x 3. Echocardiogram is pending. PLAN: Atypical chest pain: Symptoms are very atypical for unstable angina. Blood pressures have been hypertensive. Previously on lisinopril 10 mg daily as an outpatient but was discontinued due to hypotension 04/2023. Currently chest pain-free with the use of Nitro-paste 1. Continue metoprolol succinate 12.5 mg daily 2. Recommend improved blood pressure control--recommend restarting lisinopril at lower dose, 2.5 mg daily. Continue adequate oral hydration. Repeat BMP in the morning. 3. Discontinue Nitro-Paste. Start Imdur 30 mg daily. Hesitant to add calcium channel randi due to chronic lower extremity edema/diastolic dysfunction. 4. She does not carry a history of nonobstructive CAD per most recent cardiac catheterization 08/2019-- recommend rescheduling of outpatient nuclear stress test. 5. Continue aspirin and statin as ordered. 6. Symptoms seem to be triggered by stressful situation--patient may benefit from an anxiolytic. Will defer to primary team. Case discussed with Dr. Barrow. Further recommendations pending his asses sment/echo results. I spent a total of 40 minutes on the date of service in preparation, delivery, and documentation of the care provided to the patient excluding any time spent in the performance of separately billed services. FLASH Jackson Department of Cardiology, [facility] This chart was completed in part utilizing Speech Voice Recognition Software. Grammatical errors, random word insertions, pronoun errors, and incomplete sentences are an occasional consequence of this system due to software limitations, ambient noise, and hardware issues. Any formal questions or concerns about the content, text, or information contained within the body of this dictation should be directly addressed to the provider for clarification. Supervising Physician Co-Signing Physician Notes I have reviewed the advance practitioner's documentation, and I agree with, and take responsibility for the plan of care. 73-year-old female with chest discomfort. Feeling well currently. No recurrent chest pain this morning. Denies exertional chest pain or unusual shortness of breath. Recent episode triggered after winning bingo. High-sensitivity troponin undetectable. No ischemic ECG changes. Preliminary review of bedside echocardiogram reveals normal LV systolic function without regional wall motion abnormality. No pericardial effusion. PE: Hypertensive. Gen: NAD, awake alert and orient x 3. Heart: Regular rhythm, normal S1-S2. No murmur. Lungs: Clear bilateral, no rales, rhonchi, wheeze. Extremities: No edema. A/P: 73-year-old female with recurrent atypical chest discomfort. No evidence of acute coronary syndrome. Prior ischemic evaluation including cardiac catheterization without evidence of obstructive coronary disease. Possible vasospastic component. Will add lisinopril to improve blood pressure control and isosorbide mononitrate 30 mg daily. Schedule outpatient Lexiscan nuclear stress test for further risk stratification. No further inpatient testing or intervention recommended at this time. I spent a total of 25 minutes on the date of service in preparation, delivery, and documentation of the care provided to this patient, excluding any time spent in the performance of separately billed services. History of Present Illness Reason for Consultation: Chest pain Requesting Physician: [facility] Attending Physician: Alfonso Delgadillo MD History of Present Illness 73-year-old female presented to [facility] emergency department last evening due to a sharp left-sided chest pain today associated with shortness of breath, diaphoresis with radiation to the shoulder and neck. Symptoms occurred while playing bingo. Has longstanding history of atypical chest discomfort described as above. Most recently seen Lubna Manning PA-C in our outpatient clinic 06/2023. A nuclear stress test was ordered however not completed. EKG without acute ischemic changes. Nitro paste applied. BP at hypertensives. HS troponin negative x3. Echo pending. Scr increased at 1.5>> 1.22 this am. (Given IVF) Upon entrance into the room patient resting in bed. At the beginning of our assessment she was chest pain free. 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 As we discussed this her chest pain returned. BP is hypertensive. No shortness of breath. No palpitations. Telemetry: SR 60-70s Outpatient cardiac medications include: Metoprolol succinate 12.5 mg daily Atorvastatin 80 mg daily Zetia 10 mg daily Aspirin 81 mg Formally on lisinopril 10 mg daily (dc 04/2023 due to hypotension) Primary outpatient workers compensation administrator: Edward Oliver PA-C. Past Medical History: 1. Longstanding atypical chest discomfort, occasionally reproducible with palpation of the chest wall 2. Nonobstructive coronary disease per cardiac catheterization in 2017 and August 2019 3. Hypertension 4. Chronic fluid retention. Diastolic dysfunction. Normal intracardiac filling pressures per cardiac catheterization. Suspect multifactorial in etiology - sedentary state, sodium, anemia, gabapentin, etc. 5. Dyslipidemia goal LDL less than 70 mg/dL 6. Right carotid bruit. Carotid duplex last in February 2023 revealed mild bilateral internal carotid artery disease, previously reported to have 50 to 69% right internal carotid artery disease via August 2021 duplex. 7. Chronic dyspnea. COPD/chronic bronchitis. 8. GERD 9. Chronic back pain 10. Anemia Allergies Allergy/AdvReac Type Severity Reaction Status Date / Time acetaminophen Allergy Severe Anaphylaxis Verified 11/07/23 23:50 chlorpheniramine Allergy Severe Anaphylaxis Verified 11/07/23 23:50 dextromethorphan Allergy Severe Anaphylaxis Verified 11/07/23 23:50 latex Allergy Mild RASH Verified 04/13/21 18:42 Iodinated Contrast Media Allergy Unknown . Verified 04/13/21 18:42 Penicillins Allergy Unknown Unknown Verified 04/13/21 18:42 varenicline AdvReac Severe NAUSEA Verified 04/13/21 18:42 benzalkonium chloride AdvReac Intermediate VERTIGO Verified 04/13/21 18:42 ibuprofen AdvReac Intermediate ACID REFLEX Verified 04/13/21 18:42 ofloxacin AdvReac Intermediate VERTIGO Verified 04/13/21 18:42 Corticosteroids AdvReac Unknown jittery Verified 04/13/21 18:42 (Glucocorticoids) and hyper Home Medications Medication Instructions Recorded Confirmed Type amitriptyline 10 mg tablet 20 mg PO 09/20/18 11/08/23 History aspirin 81 mg tablet,delayed 81 mg PO [facility] 09/20/18 11/08/23 History release omeprazole 40 mg capsule,delayed 40 mg PO QAM 09/20/18 11/08/23 History release sertraline 100 mg tablet 200 mg PO 09/20/18 11/08/23 History calcium carbonate 600 mg calcium 600 mg PO QAM 01/02/19 11/08/23 History (1,500 mg) tablet (Calcium) alendronate 70 mg tablet 70 mg PO WK 11/05/19 11/08/23 History ezetimibe 10 mg tablet (Zetia) 10 mg PO QAM 11/05/19 11/08/23 History hydrochlorothiazide 12.5 mg capsule 12.5 mg PO MOWEFR 04/13/21 11/08/23 History atorvastatin 80 mg tablet 80 mg PO QPM 04/10/23 11/08/23 History galcanezumab-gnlm 120 mg/mL 120 mg subcut MONTHLY 04/10/23 11/08/23 History subcutaneous pen injector (Emgality Pen) hydroxyzine HCl 25 mg tablet 25 mg PO Q6H PRN Anxiety 04/10/23 11/08/23 History lisinopril 10 mg tablet (Zestril) 10 mg PO QAM 04/10/23 11/08/23 History acetaminophen 325 mg tablet 650 mg (2 x 325 mg) PO Q8H #1 tab 04/12/23 11/08/23 Rx gabapentin 300 mg capsule 300 mg PO BID17 #14 caps 04/12/23 11/08/23 Rx gabapentin 600 mg tablet 600 mg PO HS #14 tabs 04/12/23 11/08/23 Rx hydrocodone 5 mg-acetaminophen 325 1 tab PO Q8H PRN pain 1 day #1 tab 04/12/23 11/08/23 Rx mg tablet cyclobenzaprine 5 mg tablet 5 mg PO HS PRN Muscle Spasm 04/22/23 11/08/23 History nitroglycerin 0.4 mg sublingual 0.4 mg sublingual UD PRN Other 04/22/23 11/08/23 History tablet tizanidine 4 mg tablet 4 mg PO Q8H PRN Spasms 04/22/23 11/08/23 History umeclidinium 62.5 mcg-vilanterol 1 inh inhalation QAM 04/22/23 11/08/23 History 25 mcg/actuation powdr for inhalation (Anoro Ellipta) Patient History Medical History HTN (hypertension) Lumbar spinal stenosis Cervical spinal stenosis HLD (hyperlipidemia) CKD (chronic kidney disease), stage III Vasospastic angina NSTEMI (non-ST elevated myocardial infarction) Nonobstructive atherosclerosis of coronary artery (2018) LAD and circumflex free of major disease. RCA with 40 to 50% mid right coronary stenosis and 40% stenosis at the takeoff of the PDA. ACS (acute coronary syndrome) Tobacco use GERD (gastroesophageal reflux disease) Diastolic dysfunction Nocturnal hypoxia reported secondary to COPD. Pt not on home oxygen HS secondary to reported insurance issues Palpitation Depression Osteoporosis Osteoarthritis Anxiety COPD (chronic obstructive pulmonary disease) Surgical History History of section History of arthroscopy of right shoulder History of carpal tunnel surgery S/P cervical spinal fusion History of lumbar fusion History of cholecystectomy History of hysterectomy Family History Sister Breast cancer Aunt Breast cancer Father Coronary heart disease Brother Hypertension Father Hypertension Social History Smoking Status: Former smoker Tobacco Type: Cigarettes Second Hand Exposure: No; Do You Dip or Chew Tobacco: No; Hx Alcohol Use: No Hx Substance Use: No Preferred Language: Uzbek Communication Ability: Effective Neurology Tech Required: No Beliefs That Will Affect Care: None Current Living Situation: Alone Current Living Situation Comment: Apartment Feels Safe at Home: Yes Safety Concerns: Feels Safe At This Time Assistive Devices: Cane and Walker Assistive Devices Comment: walker for long distances Review of Systems Review of Systems: All systems reviewed & are unremarkable except as noted in HPI & below Physical Exam Constitutional: WD/WN, vitals as above Eyes: PERRL, conjunctivae normal, anicteric sclerae Neck: normal visual inspection and trachea midline Respiratory: normal respiratory effort, lungs clear to auscultation Cardiovascular: RRR, no murmur, no edema Heart Sounds: normal S1 and normal S2; no murmur Vessels: no JVD Extremities: no edema Gastrointestinal (Abdomen): normal bowel sounds, soft, nontender, no hepatosplenomegaly Skin: no rashes, warm and dry Neurologic: PERRL, EOMI, accommodation nl, no face palsy, no dysarthria Psychiatric: A+Ox3, euthymic affect Results & Data Vital Signs (Past 12 Hours) Vital Signs Temp Pulse Pulse Resp BP BP Pulse Ox 11/08/23 04:00 36.6 C 61 21 119/49 L 96 11/08/23 01:34 67 11/08/23 01:17 36.5 C 62 15 146/57 H 96 11/08/23 01:16 61 11/08/23 01:14 36.5 C 11/08/23 01:00 63 15 11/08/23 00:45 146/57 H 11/08/23 00:45 66 15 11/08/23 00:20 64 20 131/72 96 11/08/23 00:11 63 20 95 11/08/23 00:11 131/72 11/08/23 00:08 63 22 96 11/07/23 23:26 64 20 124/64 95 11/07/23 23:00 124/54 L 11/07/23 23:00 63 17 94 11/07/23 22:00 63 15 116/54 L 97 11/07/23 21:16 98 11/07/23 21:00 66 18 112/57 L 92 11/07/23 20:40 68 11/07/23 20:28 36.8 C 72 18 119/66 98 O2 Del Method 11/08/23 04:00 Room Air 11/08/23 01:34 11/08/23 01:17 Room Air 11/08/23 01:16 11/08/23 01:14 11/08/23 01:00 11/08/23 00:45 11/08/23 00:45 11/08/23 00:20 11/08/23 00:11 11/08/23 00:11 11/08/23 00:08 11/07/23 23:26 Room Air 11/07/23 23:00 11/07/23 23:00 11/07/23 22:00 Room Air 11/07/23 21:16 Room Air 11/07/23 21:00 Room Air 11/07/23 20:40 11/07/23 20:28 Room Air Laboratory Results Cardiac Enzymes 11/07/23 11/07/23 11/08/23 Range/Units 20:12 23:24 04:49 Troponin I High Sens 3.3 3.1 3.4 (0-14) pg/ml Coagulation 11/07/23 11/08/23 Range/Units 20:12 04:49 PT 10.2 (9.0-12.0) Seconds APTT 29 30 (21-31) Seconds Lipids 11/08/23 Range/Units 04:49 Triglycerides 117 (0-150) mg/dl Cholesterol 127 (0-200) mg/dl HDL Cholesterol 51 mg/dl Cholesterol/HDL Ratio 2.5 (0-5) CBC 11/07/23 11/08/23 Range/Units 20:12 04:49 WBC 10.23 8.47 (4.8-10.8) K/ul RBC 3.95 L 3.41 L (4.20-5.40) M/uL Hgb 11.5 L 10.1 L (12.0-16.0) g/dl Hct 36.0 L 30.8 L (37.0-47.0) % Plt Count 221 194 (130-400) K/uL Neut # (Auto) 5.25 4.32 (1.40-6.50) K/uL Lymph # (Auto) 3.65 H 2.87 (1.20-3.40) K/uL [place] # (Auto) 0.98 H 0.88 H (0.11-0.59) K/uL Eos # (Auto) 0.22 0.27 (0.00-0.50) K/uL Baso # (Auto) 0.09 0.10 (0.00-0.20) K/uL Comprehensive Metabolic Panel 11/07/23 11/08/23 Range/Units 20:12 04:49 Sodium 139 141 (136-145) mmol/L Potassium 4.2 4.3 (3.5-5.1) mmol/L Chloride 105 109 H (98-107) mmol/L Carbon Dioxide 27 28 (21-32) mmol/L BUN 23 21 (6-23) mg/dl Creatinine 1.50 H 1.22 H (0.6-1.2) mg/dl Glucose 100 H 90 (70-99(Fasting)) mg/dl Calcium 9.4 8.6 (8.6-10.3) mg/dl Intake and Output 11/07/23 11/08/23 11/08/23 22:59 06:59 14:59 Intake Total 999 100 / 1100 0 / 0 Balance 999 0 / 0 Intake: IV 1000 / 1100 100 / 1100 Albumin 25% 25 gm In 100 ml @ 100 / 100 50 mls/hr IV ONE ONE Rx#: [id number] Sodium Chloride 0.9% 1,000 ml @ 1000 / 1000 999 mls/hr IV .Q1H1M STA Rx#: [id number] Oral 0 / 0 0 / 0 Other: # Unmeasured Voids 0 1 Weight 72.7 kg 69.1 kg Weight Measurement Method [facility] Diagnostic Findings ECHO 11/08/2023: PENDING* Outpatient echo 02/23/2023 The left ventricular cavity size is normal. The left ventricular wall motion is normal. The LV wall thickness is borderline increased (concentric). The qualitative LV ejection fraction is 60-64% (normal). No significant valvular disease. There is no evidence of pulmonary hypertension.
[2023-11-08] MEDS: ACETAMINOPHEN 325 MG TAB PO SCH (08:29)
[2023-11-08] MEDS: ASPIRIN 81 MG ECTAB PO SCH (08:29)
[2023-11-08] MEDS: EZETIMIBE 10 MG TAB PO SCH (08:29)
[2023-11-08] MEDS: GABAPENTIN 300 MG CAP PO SCH (08:30)
[2023-11-08] MEDS: PANTOprazole 40 MG TAB PO SCH (08:30)
--- OUTSIDE RECORDS SUMMARY | 2023-11-08 10:21 | External Medical Summary | Summary of Care ---
Author Name Unknown Organization [facility] Address [address] [place] [address] Phone [phone] Care Team Providers Care Talend Developer Name Role Phone Shayan PAGAN MD, Lisandra Estes Primary Care Provider [phone] Reason for Visit * Reason Comments eRx-Medication Refill Encounter Details Date Type Department Care Team (Late st Contact Info) Description 11/04/2023 Refill Family Practice [facility] [address] [place] [address] Lisandra Fletcher III, MD [address] [place], [place] [address] Cervical spinal stenosis Allergies Active Allergy Reactions Criticality Noted Date Comments Varenicline 12/11/2014 nausea Corticosteroids Other (Please comment) Medium 12/27/2013 Hyper, Mental Status Changes on oral steroids Dm-Apap-Cpm Anaphylaxis,Other (Please comment) High 12/27/2013 Contact dermatitis Ibuprofen Other (Please comment) Low 12/27/2013 Affects acid reflux Iodinated Contrast Media Hives 10/08/2007 Penicillins 10/09/2007 Rash documented as of this encounter (statuses as of 11/06/2023) Medications Medication Sig Dispensed Refills Start Date End Date Status ASPIRIN 81 MG PO TABSIndications:Can be restarted after 7 days post surgery 1 tablet by mouth daily 0 Active Calcium Carbonate 600 MG Oral Tablet Take 1 Tablet by mouth 2 times a day with morning and evening meals. 60 Tab 5 6 Active Acetaminophen ER 650 MG Oral Tablet Extended Release (Tylenol 8 Hour) Take 2 Tablets by mouth 2 times a day 30 minutes before morning and evening meals. 100 Tablet 8 1 Active Galcanezumab-gnlm 120 MG/ML Subcutaneous Solution Auto-injector (Emgality) Inject 1 mL under the skin Every Month. 1 mL 5 3 Active Additional Information Patient not taking.Reported on 08/23/2023 Ezetimibe 10 MG Oral Tablet (Zetia) TAKE 1 TABLET BY MOUTH EVERY DAY 90 Tablet 3 3 Active Omeprazole 40 MG Oral Capsule Delayed Release (PriLOSEC)Indicatio ns:Gastroesophageal reflux disease with esophagitis TAKE 1 CAPSULE BY MOUTH EVERY DAY 100 Capsule 3 3 Active Amitriptyline HCl 10 MG Oral Tablet (Elavil) Take 2 Tablets by mouth at bedtime. 180 Tablet 3 3 Active Anoro Ellipta 62.5-25 MCG/ACT Inhalation Aerosol Powder Breath Activated (umeclidinium-vilan terol) Inhale 1 Puff by mouth in the morning. 30 Each 3 Active Atorvastatin Calcium 80 MG Oral Tablet (Lipitor)Indication s:Mixed hyperlipidemia TAKE 1 TABLET BY MOUTH EVERY DAY IN THE MORNING 90 Tablet 3 3 Active Metoprolol Succinate ER 25 MG Oral Tablet Extended Release 24 Hour (toPROL XL)Indications:Juan Manuel nary artery disease involving [place] coronary artery of [place] heart without angina pectoris Take 0.5 Tablets by mouth daily. 90 Tablet 3 3 Active Gabapentin 300 MG Oral Capsule (Neurontin) Take 1 Capsule by mouth 2 times a day in the morning and at noon. Take 1 capsule by mouth in the morning and 2 capsules by mouth before bedtime 90 Capsule 11 3 Active Nitroglycerin 0.4 MG Sublingual Tablet Sublingual (Nitrostat)Indicati ons:Chest pain, unspecified type Take 1 tab sublingual as needed for chest pain 25 Tablet 5 3 Active Sertraline HCl 100 MG Oral Tablet (Zoloft) TAKE 2 TABLETS BY MOUTH EVERY DAY 180 Tablet 3 3 Active HYDROcodone-Acetami nophen 5-325 MG Oral TabletIndications:G eneralized osteoarthrosis, involving multiple sites Take 1 Tablet by mouth every 6 hours as needed for Pain, Moderate or Pain, Severe. Max 2 per day 60 Tablet 0 4 Active hydrOXYzine HCl 25 MG Oral Tablet Take 1 Tablet by mouth every 6 hours as needed for Anxiety. 30 Tablet 2 4 Active tiZANidine HCl 4 MG Oral Tablet (Zanaflex)Indicatio ns:Cervical spinal stenosis TAKE 1 TABLET BY MOUTH EVERY 8 HOURS NEEDED FOR MUSCLE SPASMS 30 Tablet 5 4 Active tiZANidine HCl 4 MG Oral Tablet (Zanaflex)Indicatio ns:Cervical spinal stenosis TAKE 1 TABLET BY MOUTH EVERY 8 HOURS NEEDED FOR MUSCLE SPASM 30 Tablet 5 3 11/06/19 24 Discontinued documented as of this encounter (statuses as of 11/06/2023) Active Problems Problem Noted Date Diagnosed Date Migraine without status migrainosus, not intract able 04/25/2023 Last Assessment & Plan: Not needed Emgality for several months Major depressive disorder, r ecurrent episode, in partial remission 04/25/2023 Last Assessment & Plan: Continue with zoloft History of [place] (myocardial infarction) 04/25/2023 Syncope 04/25/2023 Last Assessment & Plan: Has had several syncopal episodes since her back surgery - has been hospitalized and went to the ED on Sunday 04/22. Dx with hypomagnesemia, hypotension, no meds changed and no script for mag written but mag was repleted in ED Will be seeing PCP for ED follow up - she will call and make appt. Needs mag level drawn and possible oral replacement Pt says gabapentin makes her dizzy but is still taking it morning, noon and QHS. Was on lisinopril 10 mg, HCTZ and toprol XL. HCTZ d/c'd. Has cardiology appt on 05/15, will get re-evaluated then. Knows to call 911 with repeat syncopal epsiodes Hypertensive heart and kidne y disease without heart failure and with stage 3a chronic kidney disease 04/13/2023 Last Assessment & Plan: Current CKD Stage: Stage III "RED FLAG" symptoms: NO IDENTIFIED SYMPTOMS CKD Complications: HTN Additional Comments On Toprol XL 12.5 MG QAM Saw cardiology most recently on 07/18, nuclear stress test ordered Was haivng higher BP but now well controlled 2 D Echo, 02/23/23: Interpretation Summary The examination is adequate to evaluate the referral indication. The left ventricular cavity size is normal. The left ventricular wall motion is normal. The LV wall thickness is borderline increased (concentric). The qualitative LV ejection fraction is 60-64% (normal). No significant valvular disease There is no evidence of pulmonary hypertension. Lumbar spinal stenosis 03/15/2023 Last Assessment & Plan: S/p surgery, doing well . Food insecurity 11/01/2021 Overview: Per [facility] Protocol Cervical spinal stenosis 01/23/2021 Chronic kidney disease, stage 3a 12/29/2020 Overview: Per CKD protocol COPD, group B, by GOLD 2017 classification 09/02 Last Assessment & Plan: "RED FLAG" COPD symptoms: NO IDENTIFIED SYMPTOMS Medication Regimen All Classes - FRIDA Self-Management plan Prednisone 40mg daily for 5 days Rx Exacerbation plan Chest Xray Other/Additional Comments: has not had an exacerbation, doing well from a respiratory standpoint although she does need nocturnal oxygen Nocturnal hypoxemia due to emphysema 03/15/2019 Overview: nocturnal hypoxemia secondary to COPD. - PSG 03/12/17: AHI 0.2, mean 88%, <89% 146 mins, TST 366 mins Last Assessment & Plan: Still no oxygen... ARVIND (generalized anxiety disorder) 05/21/2018 Diastolic dysfunction 11/24/2017 Pain management 04/05/2016 Overview: Started w/ [facility] 03/01/16 Age-related osteoporosis wit hout current pathological fracture 09/10/2015 Overview: Fosamax started 09/10/15 DEXA: 2016: S/H: -2.7/-2.2 - high risk Dyslipidemia Generalized osteoarthrosis, involving multiple s ites Gastroesophageal reflux disease without esophagi tis Overview: EGD 10/25/16: normal EGD 04/15/15: normal esophagus, + gastric erythema: bx pending documented as of this encounter (statuses as of 11/06/2023) Resolved Problems Problem Noted Date Diagnosed Date Resolved Date Hypomagnesemia 04/25/2023 08/01/2023 Last Assessment & Plan: Mild, in ED on Monday it was 1.6. previous labs as follows: Latest Reference Range & Units 01/29/20 12:15 08/31/20 09:43 03/10/23 12:00 03/18/23 05:57 03/19/23 06:24 03/20/23 03:54 Magnesium 1.5 - 2.6 mg/dL 2.1 2.1 2.0 2.3 2.2 2.2 No oral replacement currently Chronic kidney disease, stage 3 unspecified 08/28/2020 12/31/2020 Overview: Per CKD protocol Stage 3a chronic kidney disease 06/29/2020 09/03/2020 Overview: Per CKD protocol - Per CKD protocol Hypertensive kidney disease with stage 3a chronic kidney disease 01/06/2020 04/25/2023 Angina pectoris with documented spasm 11/19/2019 01/22/2020 Kidney disease, chronic, sta ge III (GFR 30-59 ml/min) 06/03/2019 07/02/2020 Overview: Per CKD protocol Recurrent major depressive d isorder, in partial remission 01/11/2019 04/25/2023 Peripheral vascular disease 05/21/2018 08/29/2022 Lumbar radiculopathy 06/02/2017 018 Overview: MRI 06/01/17L L5-S1 moderate left foraminal stenosis due to disc - ligament swelling, + facet arthropathy GCA (giant cell arteritis) 03/22/2017 0 04/18/2017 Swelling 12/23/2016 05/21/2018 Chronic daily headache 12/23/201605/21 Vitamin D deficiency 11/02/2015 019 Rib pain on right side 10/22/201505/21 Screen for colon cancer 04/16/201503/22 Overview: Colonoscopy 04/15/15: poor prep - repeat in 3 yrs Depression with anxiety 03/12/2015 1008/2017 Low back pain 03/12/2015 03/12/2015 Closed rib fracture 02/12/2015 05/21/20 18 Overview: Seen by Dr. Piper - considering a nerve block Bone scan 10/27/15: healing rib fx right 5,6,7 rbs 10/09/15: She has had several falls since this initial fall and was told she had new rib fx's. I had all the films compared and the radiologist felt these were all the same fx's - no new fx: "Chronic rib deformities of the anterolateral right 4th, 5th, 6th, and 7th ribs." Fall injury 01/22/15 w/ non-displaced fx right #2,3,4,5 (CT done at [facility]) MEDICATION USE AGREEMENT 12/11/201408/2017 Overview: [facility] pain management 03/01/16 Signed 03/20/14, renewed 12/11/14 Cigarette smoker 12/11/2014 02/24/2022 Carotid stenosis, symptomatic w/o infarct 08/18/2014 03/17/2016 Overview: Carotid doppler 12/11/15: no stenosis bilat Carotid doppler 04/06/15: 50% stenosis both external arteries, and BRENT, no stenosis on LICA COPD, moderate 08/07/2014 09/05/2019 Overview: PFT 01/2015: moderate obstructive changes - BD response only in smaller airways Chest pain 12/28/2013 03/12/2015 Asthma 08/07/2014 Overview: ICD-10 update of inactive term Neuralgia, neuritis, and rad iculitis, unspecified 03/12/2015 Arthritis 12/11/2014 Overview: Right hip Back problem 05/21/2018 Overview: Having left sciatic sx's - followed by [facility] Pain Management documented as of this encounter (statuses as of 11/06/2023) Immunizations Name Administration Dates Next Due COVID-19 mRNA, LNP-s, No Pre serve, 2-Dose Series (Pfizer) 12/24/2021,05/21/2021,11/04/2020,10/14 Covid-19, Mrna, Lnp-s, Pf, B ivalent, 30 Mcg, IM, 12 yrs and above (Pfizer) 05/09/2022 PPD 10/25/2021 Pneumococcal Conjugate Vacc, 13 Valent (Prevnar) 05/25/2020,12/08/2015 Pneumococcal Polysaccharide PPV23 (Pneumovax) 07/04/2017,06/22/2012 Season Influenza, Quad, PF, Adjuvanted, 65+ Yrs, IM (FLUAD) 05/07/2023 Seasonal Influenza, Quadriva lent Hd (Fluzone Hd) 05/05/2022 Seasonal Influenza, Quadriva lent Hd, 65+ Yrs 04/08/2020 Seasonal Influenza, Quadriva lent, No Preserve, IM 04/09/2020,05/27/2015 Seasonal Influenza, Split, I IV3, With Preserve, Inj 06/16/2016,06/10/2014,07/08/2013,07/19 Seasonal Influenza, Trivalen t, Adjuvanted, 65+ yrs 04/21/2021,04/21/2019 Seasonal Influenza, Trivalen t, High Dose, No Preserve, IM 04/21/2019,04/21/2018,04/21/2017 TDAP (age 10 and older)(Boostrix) 04/27/2022 TDAP (age 11 and older)(Adacel) 12/01/2011,12/03 Varicella Zoster Vaccine (Adult) 03/25/2015 Zoster Vaccine Recombinant (Shingrix) 04/23/2020 ,03/06/2020 documented as of this encounter Social History Tobacco Use Types Packs/Day Years Used Date Smoking Tobacco: Former Cigarettes 0.3 51 0 11/26/1969 - 11/26/2020 Smokeless Tobacco: Never Alcohol Use Standard Drinks/Week Comments No 0 (1 standard drink = 0.6 oz pur e alcohol) PHQ-2 Answer Date Recorded PHQ Adult Total Score 2 10/29/2021 Hunger Vital Sign Answer Date Recorded Worried About Running Out of Food in the Last Ye ar Never true 08/01/2019 Ran Out of Food in the Last Year Never true 08/01/2019 Sex and Gender Information Value Date Recorded Sex Assigned at Female 01/08/2019 12:49 PM EDT Gender Identity Female 01/08/2019 12:49 PM EDT Sexual Orientation Straight 01/08/2019 12 :49 PM EDT Job Start Date Occupation Industry Not on file Not on file Not on file documented as of this encounter Functional Status Functional Status Response Date of Assess ment Are you deaf or do you have serious difficulty h earing? No 03/15/2023 Are you blind or do you have serious difficulty seeing, even when wearing glasses? No 03/15/2023 Do you have serious difficul ty walking or climbing stairs? (5 years old or older) No 03/15/2023 Do you have difficulty dress ing or bathing? (5 years old or older) No 03/15/2023 Because of a physical, menta l, or emotional condition, do you have difficulty doing errands alone such as visiting a doctor s office or shopping? (15 years old or older) No 03/15/20 Cognitive Status Response Date of Assessm ent Because of a physical, menta l, or emotional condition, do you have serious difficulty concentrating, remembering, or making decisions? (5 years old or older) No 03/15/2023 documented as of this encounter Miscellaneous Notes * Telephone Encounter - Lisandra Fletcher III, MD - 11/06/2023 1:42 PM EDTSigned Prescriptions: Disp Refills tiZANidine HCl 4 MG Oral Tablet (Zanaflex) 30 Tab*5 Sig: TAKE 1 TABLET BY MOUTH EVERY 8 HOURS NEEDED FOR MUSCLE SPASMSAuthorizing Provider: LISANDRA FLETCHER III----- * Telephone Encounter - Maliha Hunt LPN - 11/06/2023 12:27 PM EDTPending Prescriptions: Disp Refills tiZANidine HCl 4 MG Oral Tablet [Pharmacy *30 Tab*5 Sig: TAKE 1 TABLET BY MOUTH EVERY 8 HOURS NEEDED FOR MUSCLE SPASMS * Telephone Encounter - Maliha Hunt LPN - 11/06/2023 12:26 PM EDT Pending Prescriptions: Disp Refills tiZANidine HCl 4 MG Oral Tablet (Zanaflex*30 Tab*5 Sig: TAKE 1 TABLET BY MOUTH EVERY 8 HOURS NEEDED FOR MUSCLE SPASMS Last Visit: 09/05/2023 (in office), Visit date not found (telemedicine) Next Visit: 12/13/2023 Last date the medication was ordered: 05/09/2023 Patient Active Problem List Diagnosis Code Dyslipidemia E78.5 Generalized osteoarthrosis, involving multiple sites M15.9 Gastroesophageal reflux disease without esophagitis K21.9 Age-related osteoporosis without current pathological fracture M81.0 Pain management R52 Diastolic dysfunction I51.89 ARVIND (generalized anxiety disorder) F41.1 Nocturnal hypoxemia due to emphysema ([facility]) J43.9, G47.36 COPD, group B, by GOLD 2017 classification ([facility]) J44.9 Chronic kidney disease, stage 3a ([facility]) N18.31 Cervical spinal stenosis M48.02 Food insecurity Z59.41 Lumbar spinal stenosis M48.061 Hypertensive heart and kidney disease without heart failure and with stage 3a chronic kidney disease ([facility]) I13.10, N18.31 Migraine without status migrainosus, not intractable G43.909 Major depressive disorder, recurrent episode, in partial remission ([facility]) F33.41 History of [place] (myocardial infarction) I25.2 Syncope R55 Labs: Lab Results Component Value Date/Time CREAT GFR 0.71 10/29/2015 10:34 AM CREATININE - [facility] 0.9 07/05/2023 10:01 AM CREATININE - [facility] 1.3 (H) 08/31/2020 09:43 AM CREATININE, RANDOM URINE - [facility] 111 02/25/2022 08:46 AM CREATININE-OUTSIDE LAB 0.98 01/02/2019 12:00 AM Lab Results Component Value Date/Time POTASSIUM - [facility] 4.9 07/05/2023 10:01 AM POTASSIUM - [facility] 5.0 08/31/2020 09:43 AM POTASSIUM-OUTSIDE LAB 4.2 01/02/2019 12:00 AM Lab Results Component Value Date/Time TSH - [facility] 1.56 10/29/2021 12:30 PM TSH - [facility] 1.50 01/06/2020 08:53 AM Lab Results Component Value Date/Time LDL CHOLESTEROL (CALCULATED) - [facility] 81 06/02/2020 09:42 AM LDL CHOLESTEROL (CALCULATED) - [facility] 142 (H) 03/06/2018 08:06 AM LDL CHOLESTEROL (DIRECT MEASURE) - [facility] 60 05/15/2023 11:27 AM LDL CHOLESTEROL (DIRECT MEASURE) - [facility] 91 10/25/2021 11:04 AM LDL CHOLESTEROL (DIRECT MEASURE) - [facility] NOT APPLICABLE 06/02/2020 09:42 AM LDL CHOLESTEROL (DIRECT MEASURE) - [facility] 177 (H) 01/06/2020 08:53 AM LDL CHOLESTEROL (DIRECT MEASURE) - [facility] 223 (H) 08/08/2019 09:05 AM LDL CHOLESTEROL (DIRECT MEASURE) - [facility] 185 (H) 12/06/2018 09:23 AM Lab Results Component Value Date/Time ALT - [facility] 13 05/15/2023 11:27 AM ALT - [facility] 18 06/02/2020 09:42 AM ALT-OUTSIDE LAB 24 06/30/2017 12:00 AM Hemoglobin AIC Results: Lab Results Component Value Date/Time HEMOGLOBIN A1C - [facility] 5.9 (H) 03/10/2023 12:00 PM HEMOGLOBIN A1C - [facility] 5.9 (H) 12/09/2020 03:41 PM * Telephone Encounter - Wil Dejazach - 11/04/2023 1:11 PM EDTPending Prescriptions: Disp Refills tiZANidine HCl 4 MG Oral Tablet [Pharmacy *30 Tab*5 Sig: TAKE 1TABLET BY MOUTH EVERY 8 HOURS NEEDED FOR MUSCLE SPASMS documented in this encounter Plan of Treatment Upcoming Encounters Date Type Department Care Team (Late st Contact Info) Description 12/13/2023 9:20 AM EDT Office Visit [facility] [place] [address] [place] [address] Lisandra Fletcher III, MD [facility] [address] [place] [address] 12/18/2023 3:30 PM EDT Office Visit Cardiology, [facility] [address] [place] [address] Edward Oliver PA-C [address] [place] [address] 01/03/2024 12:20 PM EDT Office Visit [facility] [place] [address] [place] [address] Lisandra Fletcher III, MD [address] [facility] [place] [address] 07/04/2024 9:20 AM EST Office Visit Rheumatology [place] [id number] [place] [address] Yeyo Barrios MD [facility] [employer] [facility] [place] [address] 09/06/2024 2:00 PM EST Office Visit Orthopaedics Spine Surgery, [facility] [address] [facility] [place] [address] Wyatt Ly MD [address] [place] [address] [place] [address] Scheduled Procedures Name Priority Associated Diagnoses Date/Ti me COLONOSCOPY FLEXIBLE PROXIMAL DIAGNOSTIC Recall History of colon polyps Health Maintenance Due Date Last Done Comments Alpha-1 Antitrypsin 1968 Depression Screening 10/29/2022 10/29/2021 Albumin/Creatinine Ratio 02/25/2023 02/25/2022, 01/19 COLONOSCOPY-EVERY 5 YRS AGES 18-100 03/19/2023 03/19/2018, 03/19/2018, 02/27/2018, Additional history exists COVID-19 Vaccine ( season) 2023 05/09/2022, 12/24/2021, 05/21/2021, Additional history exists *BISPHONATE OR OTHER ACCEPTABLE MEDICATION NEEDED FOR OSTEOPOROSIS (REFER TO SMARTSET #1146) 07/07/2023 Mammogram 12/07/2023 12/06/2022, 11/19, 07/06/2021, Additional history exists GFR 01/03/2024 07/05/2023, 04/22, 05/05/2023, Additional history exists O2 ASSESSMENT COMPLETED IN PAST YEAR FOR COPD 03/15/2024 03/15/2023 CKD HGB USE SMARTSET 39023 05/15/202405/15, 05/05/2023, 05/05/2023, Additional history exists CKD PHOS USE SMARTSET 92442 07/05/202406/21, 03/20/2023, 03/19/2023, Additional history exists DXA Scan 07/03/2025 07/03/2023, 06/21, 06/21/2021, Additional history exists Lipid Panel 05/15/2028 05/15/2023, 03/0 02/2022, 06/02/2020, Additional history exists DTaP,Tdap,and Td Vaccines (4 - Td or Tdap) 04/27/2032 04/27/2022, 12/01/2011, 12/04/1999 Zoster Vaccines Completed 04/23/2020, 02/18, 03/25/2015 Pneumococcal Vaccine: 65+ Years Completed 05/25/2020, 07/04/2017, 12/08/2015, Additional history exists Influenza Vaccine (FLU shot) Completed , 05/05/2022, 04/21/2021, Additional history exists VITAMIN D LEVEL ONCE IN A LIFETIME-USE SMARTSET# 98939 Completed 07/05/2023, 01/06/2020, 03/06/2018, Additional history exists GARDASIL-HPV IMMUNIZATION SERIES Aged Out No longer eligible based on patient's age to complete this topic Hepatitis B Aged Out No longer eligi ble based on patient's age to complete this topic MENINGOCOCCAL (MENACTRA/MENVEO) Aged Out No longer eligible based on patient's age to complete this topic documented as of this encounter Medical Devices Implanted Type Area Landscape Architect Device Identifier Shelf Expiration Date Model / Serial / Lot Dbx 5cc [id number] - [id number] - [id number] Implanted:Qty : 1 on 01/20/2021 by Wyatt Ly MD at [facility] Tissue - Human N/A: Spine Cervical MUSCULOSKELETAL TRANSPLANT FND [id number] 08/22/2021 [id number] / [id number] / LOT NA Vitoss Bimodal Foam Pack 10cc - [id number] - [id number] Implanted:Qty : 1 on 01/20/2021 by Wyatt Ly MD at [facility] N/A: Spine Cervical PAULETTE : SPINE 12/16/2021 [id number] / [id number] / [id number] 4.5 X 20mm Cortical Fixation Screw Implanted:Qty : 1 on 01/20/2021 by Wyatt Ly MD at [facility] N/A: Spine Cervical [employer] 1020-45-220 / / 4.5 X 22mm Cortical Fixation Screw Implanted:Qty : 1 on 01/20/2021 by Wyatt Ly MD at [facility] N/A: Spine Cervical [employer] [id number] / / 3.5 X 12mm Screws Implanted:Qty : 8 on 01/20/2021 by Wyatt Ly MD at [facility] N/A: Spine Cervical [employer] [id number] / / Set Screws Implanted:Qty : 10 on 01/20/2021 by Wyatt Ly MD at [facility] N/A: Spine Cervical [employer] 1020-00-000 / / 60mm Rods Implanted:Qty : 2 on 01/20/2021 by Wyatt Ly MD at [facility] N/A: Spine Cervical [employer] 1020-64-060 / / 1cm X 5cm Magnifuse Posterior Cervical Bone Graft (Formerly [employer]otech) Implanted:Qty : 1 on 03/15/2023 by Wyatt Ly MD at [facility] N/A: Spine Lumbar Medtronic SofCytoPherxek [id number] 01/05/2025 [id number] / [id number] / LOT NA Catalyft Pl Expandable Interbody System, Interbody Cage Implanted:Qty : 2 on 03/15/2023 by Wyatt Ly MD at [facility] N/A: Spine Lumbar Medtronic 03/08/2030 [id number] / / [id number] 6.5 X 45 Screw Implanted:Qty : 2 on 03/15/2023 by Wyatt Ly MD at [facility] N/A: Spine Lumbar Medtronic [id number] / / Description:No Exp. Date, us ed out of set 6.5 X 40 Screw Implanted:Qty : 2 on 03/15/2023 by Wyatt Ly MD at [facility] N/A: Spine Lumbar Medtronic [id number] / / Description:No Expiration da te, used out of set 7.5 X 40 Screw Implanted:Qty : 2 on 03/15/2023 by Wyatt Ly MD at [facility] N/A: Spine Lumbar Medtronic [id number] / / Description:No Expiration Da te, used out of set Screw Bone Ti Set Solera 4.75m - [id number] Implanted:Qty : 6 on 03/15/2023 by Wyatt Ly MD at [facility] N/A: Spine Lumbar [employer] [id number] / / Description:No Expiration Da te, used out of set [place] 4.75mm Pbent 55mm - [id number] Implanted:Qty : 2 on 03/15/2023 by Wyatt Ly MD at [facility] N/A: Spine Lumbar [employer] : NEUROLOGIC PAIN [id number] / / 10cc Mastergraft Biologic Matrix Ext Block Implanted:Qty : 1 on 03/15/2023 by Wyatt Ly MD at [facility] N/A: Spine Lumbar Medtronic Sofamor [place] [id number] 11/18/2025 [id number] / [id number] / [id number] Dbx 2.5cc [id number] - [id number] - [id number] Implanted:Qty : 1 on 03/15/2023 by Wyatt Ly MD at [facility] N/A: Spine Lumbar MUSCULOSKELETAL TRANSPLANT FND [id number] 08/04/2024 [id number] / [id number] / LOT NA Dbx 2.5cc [id number] - [id number] - [id number] Implanted:Qty : 1 on 03/15/2023 by Wyatt Ly MD at [facility] N/A: Spine Lumbar MUSCULOSKELETAL TRANSPLANT FND [id number] 10/04/2024 [id number] / [id number] / LOT NA Graft Bone Infuse Kit Xsmall - [id number] - [id number] Implanted:Qty : 1 on 03/15/2023 by Wyatt Ly MD at [facility] N/A: Spine Lumbar [employer] : NEUROLOGIC PAIN [id number] 07/20/2024 [id number] / [id number] / [id number] documented as of this encounter Visit Diagnoses Diagnosis Cervical spinal stenosis Spinal stenosis in cervical region documented in this encounter Advance Directives Latest Code Status on File Code Status Date Activated Date Inactivated Comments Full Code 03/15/2023 12:57 PM 03/20/2023 6:22 PM This order reflects the patients wishes and were consensually agreed upon. Question Answer Comments Discussion of Advance Directives occurred with: Patient Code Status History Code Status Date Activated Date Inactivated Comments Full Code 03/15/2023 6:34 AM 03/15/2023 6:39 AM This order reflects the patients wishes and were consensually agreed upon. Question Answer Comments Discussion of Advance Directives occurred with: Patient Full Code 01/20/2021 2:31 PM 01/23/2021 5:22 PM This or cheryl reflects the patients wishes and were consensually agreed upon. Question Answer Comments Discussion of Advance Directives occurred with: Not Discussed Full Code 01/20/2021 6:34 AM 01/20/2021 2:31 PM This or cheryl reflects the patients wishes and were consensually agreed upon. Question Answer Comments Discussion of Advance Directives occurred with: Not Discussed Care Teams Talend Developer Relationship Specialty Start Date End Date Lisandra Fletcher III, MD [address] [place] [address] PCP - General Family Medicine 10/04/19 documented as of this encounter
--- OUTSIDE RECORDS SUMMARY | 2023-11-08 10:22 | External Medical Summary | Summary of Care ---
Author Name Unknown Organization [facility] Address [address] [place] [address] Phone [phone] Care Team Providers Care Duty Manager Name Role Phone Shayan PAGAN MD, Cedric Estes Primary Care Provider [phone] Reason for Referral * Medication Prior Authorization - Pending Review Specialty Diagnoses / Procedures Referred By Calos huggins Referred To Contact Diagnoses Generalized osteoarthrosis, involving multiple sites Zion Leon DO [address] [place] [address] Referral ID Status Reason Start Date Expiration Date V isits Requested Visits Authorized [id number] Pending Review 999 999 Reason for Visit * Reason Onset Date Comments Medication Refill 10/11/2023 Encounter Details Date Type Department Care Team (Late st Contact Info) Description 10/11/2023 Telephone Family Practice [facility] [address] [facility] [place] [address] Cedric Downey III, MD [address] [facility] [place] [address] Medication Refill Allergies Active Allergy Reactions Criticality Noted Date Comments Varenicline 12/11/2014 nausea Corticosteroids Other (Please comment) Medium 12/27/2013 Hyper, Mental Status Changes on oral steroids Dm-Apap-Cpm Anaphylaxis,Other (Please comment) High 12/27/2013 Contact dermatitis Ibuprofen Other (Please comment) Low 12/27/2013 Affects acid reflux Iodinated Contrast Media Hives 10/08/2007 Penicillins 10/09/2007 Rash documented as of this encounter (statuses as of 10/13/2023) Medications Medication Sig Dispensed Refills Start Date End Date Status ASPIRIN 81 MG PO TABSIndications:Can be restarted after 7 days post surgery 1 tablet by mouth daily 0 Active Calcium Carbonate 600 MG Oral Tablet Take 1 Tablet by mouth 2 times a day with morning and evening meals. 60 Tab 5 09/03/2015 Active Acetaminophen ER 650 MG Oral Tablet Extended Release (Tylenol 8 Hour) Take 2 Tablets by mouth 2 times a day 30 minutes before morning and evening meals. 100 Tablet 8 06/30/2021 Active Galcanezumab-gnlm 120 MG/ML Subcutaneous Solution Auto-injector (Emgality) Inject 1 mL under the skin Every Month. 1 mL 5 11/08/2022 Active Additional Information Patient not taking.Reported on 08/23/2023 Ezetimibe 10 MG Oral Tablet (Zetia) TAKE 1 TABLET BY MOUTH EVERY DAY 90 Tablet 3 01/10/2023 Active Omeprazole 40 MG Oral Capsule Delayed Release (PriLOSEC)Indicatio ns:Gastroesophageal reflux disease with esophagitis TAKE 1 CAPSULE BY MOUTH EVERY DAY 100 Capsule 3 02/04/2023 Active Amitriptyline HCl 10 MG Oral Tablet (Elavil) Take 2 Tablets by mouth at bedtime. 180 Tablet 3 03/02/2023 Active Anoro Ellipta 62.5-25 MCG/ACT Inhalation Aerosol Powder Breath Activated (umeclidinium-vilan terol) Inhale 1 Puff by mouth in the morning. 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 90 Tablet 3 05/15/2023 Active Gabapentin 300 MG Oral Capsule (Neurontin) Take 1 Capsule by mouth 2 times a day in the morning and at noon. Take 1 capsule by mouth in the morning and 2 capsules by mouth before bedtime 90 Capsule 11 05/17/2023 Active Nitroglycerin 0.4 MG Sublingual Tablet Sublingual (Nitrostat)Indicati ons:Chest pain, unspecified type Take 1 tab sublingual as needed for chest pain 25 Tablet 5 07/05/2023 Active Sertraline HCl 100 MG Oral Tablet (Zoloft) TAKE 2 TABLETS BY MOUTH EVERY DAY 180 Tablet 3 2023 Active HYDROcodone-Acetami nophen 5-325 MG Oral TabletIndications:G eneralized osteoarthrosis, involving multiple sites Take 1 Tablet by mouth every 6 hours as needed for Pain, Moderate or Pain, Severe. Max 2 per day 60 Tablet 0 10/12/2023 Active hydrOXYzine HCl 25 MG Oral Tablet Take 1 Tablet by mouth every 6 hours as needed for Anxiety. 30 Tablet 2 10/11/2023 Active HYDROcodone-Acetami nophen 5-325 MG Oral Tablet Take 1 Tablet by mouth every 6 hours as needed for Pain, Moderate or Pain, Severe. Max 2 per day 60 Tablet 0 09/13/2023 10/11/19 24 Discontinu ed(Refill) documented as of this encounter (statuses as of 10/13/2023) Active Problems Problem Noted Date Diagnosed Date Migraine without status migrainosus, not intract able 04/25/2023 Last Assessment & Plan: Not needed Emgality for several months Major depressive disorder, r ecurrent episode, in partial remission 04/25/2023 Last Assessment & Plan: Continue with zoloft History of NH (myocardial infarction) 04/25/2023 Syncope 04/25/2023 Last Assessment [...] 11/24/2017 Pain management 04/05/2016 Overview: Started w/ [facility] 03/01/16 Age-related osteoporosis wit hout current pathological fracture 09/10/2015 Overview: Fosamax started 09/10/15 DEXA: 2016: S/H: -2.7/-2.2 - high risk Dyslipidemia Generalized osteoarthrosis, involving multiple s ites Gastroesophageal reflux disease without esophagi tis Overview: EGD 10/25/16: normal EGD 04/15/15: normal esophagus, + gastric erythema: bx pending documented as of this encounter (statuses as of 10/13/2023) Resolved Problems Problem Noted Date Diagnosed Date [...] repeat in 3 yrs Depression with anxiety 03/12/201508/2017 Low back pain 03/12/2015 03/12/2015 Closed rib [...] non-displaced fx right #2,3,4,5 (CT done at [facility]) MEDICATION USE AGREEMENT 12/11/201408/2017 Overview: Started w. [facility] 03/01/16 Signed 03/20/14, renewed 12/11/14 [...] Having left sciatic sx's - followed by [facility] documented as of this encounter (statuses as of 10/13/2023) Immunizations Name Administration Dates Next Due COVID-19 mRNA, LNP-s, No Pre serve, 2-Dose Series ([employer]) 12/24/2021,05/21/2021,11/04/2020,10/14 Covid-19, Mrna, Lnp-s, Pf, B ivalent, [...] encounter Miscellaneous Notes * Telephone Encounter - Scooby Weinstein CPhT - 10/13/2023 8:24 AM EST Patients insurance would like to inform the office that HYDROCODONE-ACETAMIN 5- 325 MG is not requiring review because "No review needed" EOC #: [id number] Thank you, Jorgito Weinstein ([facility]) Airport Maintenance Laborer III [facility] ([facility] (formerly Telepharm[facility]) 10/13/2023, 8:24 AM * Telephone Encounter - Scooby Weinstein CPhT - 10/13/2023 7:34 AM EST Patients insurance would like to inform the office that HYDROCODONE-ACETAMIN 5- 325 MG is requiring additional information: clinical documentation. Prior authorization entered in [employer] at [facility]. EOC#[id number] Please fax to [phone] before 9am 10/13. Thank you, Jorgito Weinstein ([facility]) Airport Maintenance Laborer III [facility] ([facility]) (formerly Telepharmacy) 10/13/2023, 7:34 AM * Telephone Encounter - Zion Leon DO - 10/12/2023 3:55 PM ESTSigned Prescriptions: Disp Refills HYDROcodone-Acetaminophen 5-325 MG Oral Ta*60 Tab*0 Sig: Take 1 Tablet by mouth every 6 hours as needed for Pain, Moderate or Pain, Severe. Max 2 per dayAuthorizingProvider: ZION LEON * Telephone Encounter - Lise Her [facility] - 10/12/2023 9:55 AM ESTPending Prescriptions: Disp Refills HYDROcodone-Acetaminophen 5-325 MG Oral Ta*60 Tab*0 Sig: Take 1 Tablet by mouth every 6 hours as needed for Pain, Moderate or Pain, Severe. Max 2 per day * Telephone Encounter - Lise Her RP - 10/12/2023 9:54 AM EST I have reviewed the patients controlled substance dispensing history in the Prescription Drug Monitoring Program in compliance with the [facility] regulations before prescribing a controlled substance. PDMP checked on 10/12/2023. Pending Prescriptions: Disp Refills HYDROcodone-Acetaminophen 5-325 MG Oral T*60 Tab*0 Sig: Take 1 Tablet by mouth every 6 hours as needed for Pain, Moderate or Pain, Severe. Max 2 per day Last Visit: 09/05/2023 (in office), Visit date not found (telemedicine) Next Visit: 12/13/2023 Date medication was last filled: 09/14 Date medication is due for refill: 10/13 Pharmacy: [id number] [address] [place] [address] Is this request for a controlled substance? Yes and Urine Drug Screen Not completed Toxicology results: No results found. However, due to the size of the patient record, not all encounters were searched.Please check Results Review for a complete set of results. Please approve if appropriate. Thank you, Lise Her, PharmD Clinical Pharmacist [facility] ([facility]) (formerly Telepharmacy) [phone] 10/12/2023, 9:54 AM * Telephone Encounter - Nelli Yanes CPhT - 10/11/2023 2:24 PM EST Did you pend patient's preferred pharmacy and medication before forwarding?yes Pharmacy: [id number] [facility] Pending Prescriptions: Disp Refills HYDROcodone-Acetaminophen 5-325 MG Oral T*60 Tab*0 Sig: Take 1 Tablet by mouth every 6 hours as needed for Pain, Moderate or Pain, Severe. Max 2 per day Last Visit: 09/05/2023 (in office), Visit date not found (telemedicine) Next Visit: 12/13/2023 If no future appointments scheduled, and last appointment is greater than a year ago, please schedule patient for a follow-up appointment Last date the medication was ordered: 09/13/23 Is this request for a controlled substance?Yes, What was the last refill date 09/13/23 w/ quantity 60 and dosage 5-325 MG and Urine Drug Screen Not completed Urine Drug Screen:No results found. However, due to the size of the patient record, not all encounters were searched. Please check Results Review for a complete set of results. Patient Phone Numbers Labs: Lab Results Component Value Date/Time CREAT 0.9 07/05/2023 10:01 AM CREAT 1.3 (H) 08/31/2020 09:43 AM POTASSIUM 4.9 07/05/2023 10:01 AM POTASSIUM 5.0 08/31/2020 09:43 AM TSH 1.56 10/29/2021 12:30 PM TSH 1.50 01/06/2020 08:53 AM LDLCALC 81 06/02/2020 09:42 AM LDLDIRECT 60 05/15/2023 11:27 AM LDLDIRECT NOT APPLICABLE 06/02/2020 09:42 AM LDLDIRECT 177 (H) 01/06/2020 08:53 AM ALT 13 05/15/2023 11:27 AM ALT 18 06/02/2020 09:42 AM HGBA1C 5.9 (H) 03/10/2023 12:00 PM documented in this encounter Plan of Treatment Upcoming Encounters Date Type Department Care Team (Late st Contact Info) Description 10/31/2023 10:00 AM EDT Home Visit [facility] at [place], [facility] [address] [place] [address] Martina Resendiz, RN [address] [place] [address] 11/22/2023 10:30 AM EDT Office Visit Cardiology, [facility] [address] [place] [address] Edward Oliver PA-C [address] [place] [address] 12/13/2023 9:20 AM EDT Office Visit [facility] [address] [facility] [place] [address] Cedric Downey III, MD [address] [facility] [place] [address] 01/03/2024 12:20 PM EDT Office Visit [facility] [address] [facility] [place] [address] Cedric Downey III, MD [address] [facility] [place] [address] 07/04/2024 9:20 AM EST Office Visit Rheumatology [address] [place] [address] Yeyo Barrios MD [facility] [place], [place] [address] 09/06/2024 2:00 PM EST Office Visit Orthopaedics Spine Surgery, [facility] [address] [place] [address] Wyatt Ly MD [address] [place] [address] [place] [address] Scheduled Procedures Name Priority Associated Diagnoses Date/Ti me COLONOSCOPY FLEXIBLE PROXIMAL DIAGNOSTIC Recall History of colon polyps Health Maintenance Due Date Last Done Comments Alpha-1 Antitrypsin 1968 Depression Screening 10/29/2022 10/29/2021 Albumin/Creatinine Ratio 02/25/2023 02/25/2022, 01/19 COLONOSCOPY-EVERY 5 YRS AGES 18-100 03/19/2023 03/19/2018, 03/19/2018, 02/27/2018, Additional history exists COVID-19 Vaccine (2022-24 season) 2023 05/09/2022, 12/24/2021, 05/21/2021, Additional history exists *BISPHONATE OR OTHER ACCEPTABLE MEDICATION NEEDED FOR OSTEOPOROSIS (REFER TO SMARTSET #1146) 07/07/2023 Mammogram 12/07/2023 12/06/2022, 11/19, 07/06/2021, Additional history exists GFR 01/03/2024 07/05/2023, 04/22, 05/05/2023, Additional history exists O2 ASSESSMENT COMPLETED IN PAST YEAR FOR COPD 03/15/2024 03/15/2023 CKD HGB USE SMARTSET 97858 05/15/202405/15, 05/05/2023, 05/05/2023, Additional history exists CKD PHOS USE SMARTSET 22991 07/05/202406/21, 03/20/2023, 03/19/2023, Additional history exists DXA [...] D LEVEL ONCE IN A LIFETIME-USE SMARTSET# 21258 Completed 07/05/2023, 01/06/2020, 03/06/2018, Additional history exists [...] this encounter Medical Devices Implanted Type Area Rolling Machine Operator Device Identifier Shelf Expiration Date Model / Serial / Lot Dbx 5cc [id number] - [id number] - [id number] Implanted:Qty : 1 on 01/20/2021 by Wyatt Ly MD at [facility] Tissue - Human N/A: Spine Cervical MUSCULOSKELETAL TRANSPLANT FND [id number] 08/22/2021 [id number] / [id number] / LOT NA Vitoss Bimodal Foam Pack 10cc - [id number] - [id number] Implanted:Qty : 1 on 01/20/2021 by Wyatt Ly MD at [facility] N/A: Spine Cervical PAULETTE : SPINE 12/16/[id number] / [id number] / [id number] 4.5 X 20mm Cortical Fixation Screw Implanted:Qty : 1 on 01/20/2021 by Wyatt Ly MD at [facility] N/A: Spine Cervical [employer] 1020-45-220 / / 4.5 X 22mm Cortical Fixation Screw Implanted:Qty : 1 on 01/20/2021 by Wyatt Ly MD at [facility] N/A: Spine Cervical [employer] 1020-45-222 / / 3.5 X 12mm Screws Implanted:Qty : 8 on 01/20/2021 by Wyatt Ly MD at [facility] N/A: Spine Cervical [employer] 1020-35-112 / / Set Screws Implanted:Qty : 10 on 01/20/2021 by Wyatt Ly MD at [facility] N/A: Spine Cervical [employer] 1020-00-000 / / 60mm Rods Implanted:Qty : 2 on 01/20/2021 by Wyatt Ly MD at [facility] N/A: Spine Cervical [employer] 1020-64-060 / / 1cm X 5cm Magnifuse Posterior Cervical Bone Graft (Formerly Osteotech) Implanted:Qty : 1 on 03/15/2023 by Wyatt Ly MD at [facility] N/A: Spine Lumbar Medtronic Jaret Aceek [id number] 01/05/2025 [id number] / [id number] / LOT NA Catalyft Pl Expandable Interbody System, Interbody Cage Implanted:Qty : 2 on 03/15/2023 by Wyatt Ly MD at [facility] N/A: Spine Lumbar Medtronic 03/08/2030 [id number] / / [id number] 6.5 X 45 Screw Implanted:Qty : 2 on 03/15/2023 by Wyatt Ly MD at [facility] N/A: Spine Lumbar Medtronic [id number] / / Description:No Exp. Date, us ed out of set 6.5 X 40 Screw Implanted:Qty : 2 on 03/15/2023 by Wyatt Ly MD at [facility] N/A: Spine Lumbar Medtronic [id number] / / Description:No Expiration da te, used out of set 7.5 X 40 Screw Implanted:Qty : 2 on 03/15/2023 by Wyatt Ly MD at [facility] N/A: Spine Lumbar Medtronic [id number] / / Description:No Expiration Da te, used out of set Screw Bone Ti Set Solera 4.75m - [id number] Implanted:Qty : 6 on 03/15/2023 by Wyatt Ly MD at [facility] N/A: Spine Lumbar MEDTRONIC [facility] [id number] / / Description:No Expiration Da te, used out of set [place] 4.75mm Pbent 55mm - [id number] Implanted:Qty : 2 on 03/15/2023 by Wyatt Ly MD at [facility] N/A: Spine Lumbar MEDTRONIC : NEUROLOGIC PAIN [id number] / / 10cc Mastergraft Biologic Matrix Ext Block Implanted:Qty : 1 on 03/15/2023 by Wyatt Ly MD at [facility] N/A: Spine Lumbar Medtronic Jaret Hernandez [id number] 11/18/2025 [id number] / [id number] / [id number] Dbx 2.5cc [id number] - [id number] - [id number] Implanted:Qty : 1 on 03/15/2023 by Wyatt Ly MD at [facility] N/A: Spine Lumbar MUSCULOSKELETAL TRANSPLANT FND [id number] 08/04/2024 [id number] / [id number] / LOT NA Dbx 2.5cc [id number] - [id number] - [id number] Implanted:Qty : 1 on 03/15/2023 by Wyatt Ly MD at [facility] N/A: Spine Lumbar MUSCULOSKELETAL TRANSPLANT FND [id number] 10/04/2024 [id number] / [id number] / LOT NA Graft Bone Infuse Kit Xsmall - [id number] - [id number] Implanted:Qty : 1 on 03/15/2023 by Wyatt Ly MD at [facility] N/A: Spine Lumbar [employer] : NEUROLOGIC PAIN [id number] 07/20/2024 [id number] / [id number] / [id number] documented as of this encounter Visit Diagnoses Diagnosis Generalized osteoarthrosis, involving multiple sites- Primary documented in this encounter Advance Directives Latest [...] Directives occurred with: Not Discussed Care Teams Duty Manager Relationship Specialty Start Date End Date Cedric Downey III, MD [address] [facility] [place] [address] PCP - General Family Medicine 10/04/19 documented as of this encounter
--- OUTSIDE RECORDS SUMMARY | 2023-11-08 10:22 | External Medical Summary | Summary of Care ---
Author Name Unknown Organization [facility] Address [address] [place] [address] Phone [phone] Care Team Providers Care Liquefaction And Regasification Helper Name Role Phone Shayan PAGAN MD, Cedric Estes Primary Care Provider [phone] Reason for Referral * Medication Prior Authorization - Pending Review Specialty Diagnoses / Procedures Referred By Calos huggins Referred To Contact Diagnoses Generalized osteoarthrosis, involving multiple sites Zion Leon DO [address] [place] [address] Referral ID Status Reason Start Date Expiration Date V isits Requested Visits Authorized [id number] Pending Review 999 999 Reason for Visit * Reason Onset Date Comments Medication Refill 10/11/2023 Encounter Details Date Type Department Care Team (Late st Contact Info) Description 10/11/2023 Refill Family Practice [facility] [place] [address] Cedric Downey III, MD 200 [facility] [place] [address] Generalized osteoarthrosis, involving multiple sites* Allergies Active Allergy Reactions Criticality Noted Date Comments Varenicline 12/11/2014 nausea Corticosteroids Other (Please comment) Medium 12/27/2013 Hyper, Mental Status Changes on oral steroids Dm-Apap-Cpm Anaphylaxis,Other (Please comment) High 12/27/2013 Contact dermatitis Ibuprofen Other (Please comment) Low 12/27/2013 Affects acid reflux Iodinated Contrast Media Hives 10/08/2007 Penicillins 10/09/2007 Rash documented as of this encounter (statuses as of 10/12/2023) Medications Medication Sig Dispensed Refills Start Date [...] (toPROL XL)Indications:Juan Manuel nary artery disease involving [place] coronary artery of [place] heart without angina pectoris Take 0.5 Tablets [...] as of this encounter (statuses as of 10/12/2023) Active Problems Problem Noted Date Diagnosed Date Migraine without status migrainosus, not intract able 04/25/2023 Last Assessment & Plan: Not needed Emgality for several months Major depressive disorder, r ecurrent episode, in partial remission 04/25/2023 Last Assessment & Plan: Continue with zoloft History of [place] (myocardial infarction) 04/25/2023 Syncope 04/25/2023 Last Assessment [...] as of this encounter (statuses as of 10/12/2023) Resolved Problems Problem Noted Date Diagnosed Date [...] non-displaced fx right #2,3,4,5 (CT done at [facility]) MEDICATION USE AGREEMENT 12/11/201408/2017 Overview: Started [facility] 03/01/16 Signed 03/20/14, renewed [...] Having left sciatic sx's - followed by [facility] documented as of this encounter (statuses as of 10/12/2023) Immunizations Name Administration Dates Next Due COVID-19 mRNA, LNP-s, No Pre serve, 2-Dose Series (PingThings) 12/24/2021,05/21/2021,11/04/2020,10/14 Covid-19, Mrna, Lnp-s, Pf, B ivalent, [...] encounter Miscellaneous Notes * Telephone Encounter - Zion Leon DO - 10/12/2023 3:55 PM ESTSigned Prescriptions: Disp Refills HYDROcodone-Acetaminophen 5-325 MG Oral Ta*60 Tab*0 Sig: Take 1 Tablet by mouth every 6 hours as needed for Pain, Moderate or Pain, Severe. Max 2 per dayAuthorizingProvider: ZION LEON * Telephone Encounter - Lise eHr [facility] - 10/12/2023 9:55 AM ESTPending Prescriptions: Disp Refills HYDROcodone-Acetaminophen 5-325 MG Oral Ta*60 Tab*0 Sig: Take 1 Tablet by mouth every 6 hours as needed for Pain, Moderate or Pain, Severe. Max 2 per day * Telephone Encounter - Lise Her [facility] - 10/12/2023 9:54 AM EST I have reviewed the patients controlled substance dispensing history in the Prescription Drug Monitoring Program in compliance with the [facility] regulations before prescribing a controlled substance. [...] medication is due for refill: 10/13 Pharmacy: [facility] #[id number] Is this request for a controlled substance? Yes and Urine Drug Screen Not completed Toxicology results: No results found. However, due to the size of the patient record, not all encounters were searched.Please check Results Review for a complete set of results. Please approve if appropriate. Thank you, Lise Her, PharmD Clinical Pharmacist Centralized Clinical Pharmacy Services (CCPS) (formerly Telepharmacy) [phone] 10/12/2023, 9:54 AM * Telephone Encounter - Nelli Yanes CPhT - 10/11/2023 2:24 PM EST Did you pend patient's preferred pharmacy and medication before forwarding?yes Pharmacy: [facility] #[id number] Pending Prescriptions: Disp Refills HYDROcodone-Acetaminophen 5-325 MG [...] Description 10/31/2023 10:00 AM EDT Home Visit [facility] [place] [address] [place] [address] Martina Resendiz RN [address] [place] [address] 11/22/2023 10:30 AM EDT Office Visit Cardiology, [facility] [address] [place] [address] Edward Oliver, PA-C [address] [place] [address] 12/13/2023 9:20 AM EDT Office Visit [facility] [address] [place] [address] Cedric Downey III, MD [address] [place] [address] 01/03/2024 12:20 PM EDT Office Visit [facility] [address] [place] [address] Cedric Downey III, MD [address] [place] [address] 07/04/2024 9:20 AM EST Office Visit Rheumatology [facility] [address] [place], [place] [address] Yeyo Barrios MD [address] [place] [address] 09/06/2024 2:00 PM EST Office Visit Orthopaedics Spine Surgery, [facility] 132 [facility] [place] [address] Wyatt Ly MD [address] [place] [address] [place] [address] Scheduled Procedures Name Priority Associated Diagnoses Date/Ti [...] COPD 03/15/2024 03/15/2023 CKD HGB USE SMARTSET 84073 05/15/202405/15, 05/05/2023, 05/05/2023, Additional history exists CKD PHOS USE SMARTSET 55800 07/05/202406/21, 03/20/2023, 03/19/2023, Additional history exists DXA Scan 07/03/2025 07/03/2023, 06/21, 06/21/2021, Additional history exists Lipid Panel 05/15/2028 05/15/2023, 02/2022, 06/02/2020, Additional history exists DTaP,Tdap,and Td Vaccines (4 - Td or Tdap) 04/27/2032 04/27/2022, 12/01/2011, 12/04/1999 Zoster Vaccines Completed 04/23/2020, 02/18, 03/25/2015 Pneumococcal Vaccine: 65+ Years Completed 05/25/2020, 07/04/2017, 12/08/2015, Additional history exists Influenza Vaccine (FLU shot) Completed , 05/05/2022, 04/21/2021, Additional history exists VITAMIN D LEVEL ONCE IN A LIFETIME-USE SMARTSET# 44776 Completed 07/05/2023, 01/06/2020, 03/06/2018, Additional history exists [...] this encounter Medical Devices Implanted Type Area Carburetor Specialist Device Identifier Shelf Expiration Date Model / Serial / Lot Dbx 5cc [id number] - [id number] - [id number] Implanted:Qty : 1 on 01/20/2021 by Wyatt Ly MD at OR [facility] Tissue - Human N/A: Spine Cervical MUSCULOSKELETAL TRANSPLANT FND [id number] 08/22/2021 [id number] / [id number] / LOT NA Vitoss Bimodal Foam Pack 10cc - [id number] - [id number] Implanted:Qty : 1 on 01/20/2021 by Wyatt Ly MD at OR [facility] N/A: Spine Cervical PAULETTE : SPINE 12/16/2021 [id number] / [id number] / [id number] 4.5 X 20mm Cortical Fixation Screw Implanted:Qty : 1 on 01/20/2021 by Wyatt Ly MD at OR [facility] N/A: Spine Cervical DEPUY SP[employer] INC 1020-45-220 / / 4.5 X 22mm Cortical Fixation Screw Implanted:Qty : 1 on 01/20/2021 by Wyatt Ly MD at OR [facility] N/A: Spine Cervical DEPUY SPINE INC 1020-45-222 / / 3.5 X 12mm Screws Implanted:Qty : 8 on 01/20/2021 by Wyatt Ly MD at OR [facility] N/A: Spine Cervical DEPUY SPINE INC 1020-35-112 / / Set Screws Implanted:Qty : 10 on 01/20/2021 by Wyatt Ly MD at OR [facility] N/A: Spine Cervical DEPUY SPINE INC 1020-00-000 / / 60mm Rods Implanted:Qty : 2 on 01/20/2021 by Wyatt Ly MD at OR [facility] N/A: Spine Cervical DEPUY SPINE INC 1020-64-060 / / 1cm X 5cm Magnifuse Posterior Cervical Bone Graft (Formerly Osteotech) Implanted:Qty : 1 on 03/15/2023 by Wyatt Ly MD at OR [facility] N/A: Spine Lumbar Medtronic Sofamor Danek [id number] 01/05/2025 [id number] / [id number] / LOT NA Catalyft Pl Expandable Interbody System, Interbody Cage Implanted:Qty : 2 on 03/15/2023 by Wyatt Ly MD at OR [facility] N/A: Spine Lumbar Medtronic 03/08/2030 [id number] / / [id number] 6.5 X 45 Screw Implanted:Qty : 2 on 03/15/2023 by Wyatt Ly MD at OR [facility] N/A: Spine Lumbar Medtronic [id number] / / Description:No Exp. Date, us ed out of set 6.5 X 40 Screw Implanted:Qty : 2 on 03/15/2023 by Wyatt Ly MD at OR [facility] N/A: Spine Lumbar Medtronic [id number] / / Description:No Expiration da te, used out of set 7.5 X 40 Screw Implanted:Qty : 2 on 03/15/2023 by Wyatt Ly MD at OR [facility] N/A: Spine Lumbar Medtronic [id number] / / Description:No Expiration Da te, used out of set Screw Bone Ti Set Solera 4.75m - [id number] Implanted:Qty : 6 on 03/15/2023 by Wyatt Ly MD at OR [facility] N/A: Spine Lumbar MEDTRONIC Reviv[employer] INC [id number] / / Description:No Expiration Da te, used out of set Anthony [place] 4.75mm Pbent 55mm - [id number] Implanted:Qty : 2 on 03/15/2023 by Wyatt Ly MD at OR [facility] N/A: Spine Lumbar MEDTRONIC : NEUROLOGIC PAIN [id number] / / 10cc Mastergraft Biologic Matrix Ext Block Implanted:Qty : 1 on 03/15/2023 by Wyatt Ly MD at OR [facility] N/A: Spine Lumbar Medtronic Sofamor Danek [id number] 11/18/2025 [id number] / [id number] / [id number] Dbx 2.5cc 360984 - [id number] - [id number] Implanted:Qty : 1 on 03/15/2023 by Wyatt Ly MD at OR [facility] N/A: Spine Lumbar MUSCULOSKELETAL TRANSPLANT FND [id number] 08/04/2024 722551 / [id number] / LOT NA Dbx 2.5cc 789428 - [id number] - [id number] Implanted:Qty : 1 on 03/15/2023 by Wyatt Ly MD at OR [facility] N/A: Spine Lumbar MUSCULOSKELETAL TRANSPLANT FND [id number] 10/04/2024 694211 / [id number] / LOT NA Graft Bone Infuse Kit Xsmall - [id number] - [id number] Implanted:Qty : 1 on 03/15/2023 by Wyatt Ly MD at OR [facility] N/A: Spine Lumbar MEDTRONIC : NEUROLOGIC PAIN [id number] 07/20/2024 [id number] / [id number] / [id number] documented as of this encounter Visit Diagnoses [...] Directives occurred with: Not Discussed Care Teams Liquefaction And Regasification Helper Relationship Specialty Start Date End Date Cedric Downey III, MD [address] [place] [address] PCP - General Family Medicine 10/04/19 documented as of this encounter
--- OUTSIDE RECORDS SUMMARY | 2023-11-08 10:22 | External Medical Summary | Summary of Care ---
Author Name Unknown Organization [facility] Address [address] [place] [address] Phone [phone] Care Team Providers Care Trimmer Operator Three Knife Name Role Phone Shayan PAGAN MD, Cedric Estes Primary Care Provider [phone] Reason for Visit * Reason Onset Date Comments Follow Up 10/29/2023 Encounter Details Date Type Department Care Team (Late st Contact Info) Description 10/29/2023 4:00 PM EDT Scheduled Telephone [facility], [facility] [address] [facility] [address] [facility], Nurse [facility] [address] [place] [address] Allergies Active Allergy Reactions Criticality Noted Date Comments Varenicline 12/11/2014 nausea Corticosteroids Other (Please comment) Medium 12/27/2013 Hyper, Mental Status Changes on oral steroids Dm-Apap-Cpm Anaphylaxis,Other (Please comment) High 12/27/2013 Contact dermatitis Ibuprofen Other (Please comment) Low 12/27/2013 Affects acid reflux Iodinated Contrast Media Hives 10/08/2007 Penicillins 10/09/2007 Rash documented as of this encounter (statuses as of 10/29/2023) Medications Medication Sig Dispensed Refills Start Date [...] Omeprazole 40 MG Oral Capsule Delayed Release (PriLOSEC)Indication s:Gastroesophageal reflux disease with esophagitis TAKE 1 CAPSULE BY MOUTH EVERY DAY 100 Capsule 3 02/04/2023 Active Amitriptyline HCl 10 MG Oral Tablet (Elavil) Take 2 Tablets by mouth at bedtime. 180 Tablet 3 03/02/2023 Active Anoro Ellipta 62.5-25 MCG/ACT Inhalation Aerosol Powder Breath Activated (umeclidinium-vilant sherita) Inhale 1 Puff by mouth in the morning. 30 Each 03/02/2023 Active Atorvastatin Calcium 80 MG Oral Tablet (Lipitor)Indications :Mixed hyperlipidemia TAKE 1 TABLET BY MOUTH EVERY DAY IN THE MORNING 90 Tablet 3 03/13/2023 Active tiZANidine HCl 4 MG Oral Tablet (Zanaflex)Indication s:Cervical spinal stenosis TAKE 1 TABLET BY MOUTH EVERY 8 HOURS NEEDED FOR MUSCLE SPASM 30 Tablet 5 05/09/2023 Active Metoprolol Succinate ER 25 MG Oral Tablet Extended Release 24 Hour (toPROL XL)Indications:Coron zeenat artery disease involving [place] coronary artery of [place] heart without angina pectoris Take 0.5 Tablets by mouth daily. 90 Tablet 3 05/15/2023 Active Gabapentin 300 MG Oral Capsule (Neurontin) Take 1 Capsule by mouth 2 times a day in the morning and at noon. Take 1 capsule by mouth in the morning and 2 capsules by mouth before bedtime 90 Capsule 05/17/2023 Active Nitroglycerin 0.4 MG Sublingual Tablet Sublingual (Nitrostat)Indicatio ns:Chest pain, unspecified type Take 1 tab sublingual as needed for chest pain 25 Tablet 5 07/05/2023 Active Sertraline HCl 100 MG Oral Tablet (Zoloft) TAKE 2 TABLETS BY MOUTH EVERY DAY 180 Tablet 3 2023 Active HYDROcodone-Acetamin ophen 5-325 MG Oral TabletIndications:Ge neralized osteoarthrosis, involving multiple sites Take 1 Tablet by mouth every 6 hours as needed for Pain, Moderate or Pain, Severe. Max 2 per day 60 Tablet 0 10/12/2023 Active hydrOXYzine HCl 25 MG Oral Tablet Take 1 Tablet by mouth every 6 hours as needed for Anxiety. 30 Tablet 2 10/11/2023 Active documented as of this encounter (statuses as of 10/29/2023) Active Problems Problem Noted Date Diagnosed Date Migraine without status migrainosus, not intract able 04/25/2023 Last Assessment & Plan: Not needed Emgality for several months Major depressive disorder, r ecurrent episode, in partial remission 04/25/2023 Last Assessment & Plan: Continue with zoloft History of [place] (myocardial infarction) 04/25/2023 Syncope 04/25/2023 Last Assessment [...] as of this encounter (statuses as of 10/29/2023) Resolved Problems Problem Noted Date Diagnosed Date [...] in 3 yrs Depression with anxiety 03/12/2015 10/0 08/2017 Low back pain 03/12/2015 03/12/2015 Closed rib [...] non-displaced fx right #2,3,4,5 (CT done at [facility]) MEDICATION USE AGREEMENT 12/11/201408/2017 Overview: Started w[facility] 03/01/16 Signed 03/20/14, renewed 12/11/14 [...] Having left sciatic sx's - followed by [facility] documented as of this encounter (statuses as of 10/29/2023) Immunizations Name Administration Dates Next Due COVID-19 mRNA, LNP-s, No Pre serve, 2-Dose Series (InterValve) 12/24/2021,05/21/2021,11/04/2020,10/14 Covid-19, Mrna, Lnp-s, Pf, B ivalent, [...] encounter Miscellaneous Notes * Telephone Encounter - Maryan Cid RN - 10/29/2023 3:35 PM EDT TC to follow up due to AM trigger. Pulse ox 93%. Unable to reach patient. No voicemail set up. documented in this encounter Plan of Treatment Upcoming Encounters Date Type Department Care Team (Late st Contact Info) Description 11/22/2023 10:30 AM EDT Office Visit Cardiology, [facility] [address] [place] [address] Edward Oliver PA-C [address] [place] [address] 12/13/2023 9:20 AM EDT Office Visit [facility] [address] [facility] [place] [address] Cedric Downey III, MD [address] [facility] [place] [address] 01/03/2024 12:20 PM EDT Office Visit [facility] [address] [facility] [place] [address] Cedric Downey III, MD [address] [facility] [place] [address] 07/04/2024 9:20 AM EST Office Visit Rheumatology [place] [address] [facility] [place] [address] Yeyo Barrios MD [facility] [employer] [place] [address] 09/06/2024 2:00 PM EST [facility] 132 [facility] [place] [address] Wyatt Ly MD [address] [place] [address] [place] [id number] Scheduled Procedures Name Priority Associated Diagnoses Date/Ti [...] COPD 03/15/2024 03/15/2023 CKD HGB USE SMARTSET 05133 05/15/202405/15, 05/05/2023, 05/05/2023, Additional history exists CKD PHOS USE SMARTSET 79584 07/05/202406/21, 03/20/2023, 03/19/2023, Additional history exists DXA [...] D LEVEL ONCE IN A LIFETIME-USE SMARTSET# 62418 Completed 07/05/2023, 01/06/2020, 03/06/2018, Additional history exists [...] this encounter Medical Devices Implanted Type Area Literacy Specialist Device Identifier Shelf Expiration Date Model / Serial / Lot Dbx 5cc 970352 - [id number] - [id number] Implanted:Qty : 1 on 01/20/2021 by Wyatt Ly MD at OR [facility] Tissue - Human N/A: Spine Cervical MUSCULOSKELETAL TRANSPLANT FND [id number] 08/22/2021 141475 / [id number] / LOT NA Vitoss Bimodal Foam Pack cc - [id number] - [id number] Implanted:Qty : 1 on 01/20/2021 by Wyatt Ly MD at OR [facility] N/A: Spine Cervical PAULETTE : SPINE 12/16/2021 1483-8917 / [id number] / [id number] 4.5 X 20mm Cortical Fixation Screw Implanted:Qty : 1 on 01/20/2021 by Wyatt Ly MD at OR [facility] N/A: Spine Cervical DEPUY SPINE INC 1020-45-220 / / 4.5 X 22mm Cortical Fixation Screw Implanted:Qty : 1 on 01/20/2021 by Wyatt Ly MD at OR [facility] N/A: Spine Cervical DEPUY SPINE INC 1020-45-222 / / 3.5 X 12mm Screws Implanted:Qty : 8 on 01/20/2021 by Wyatt Ly MD at OR [facility] N/A: Spine Cervical DEPUY SPINE INC 1020-35-112 / / Set Screws Implanted:Qty : 10 on 01/20/2021 by Wyatt Ly MD at OR [facility] N/A: Spine Cervical DEPUY SPINE INC 1020-00-000 / / 60mm Rods Implanted:Qty : 2 on 01/20/2021 by Wyatt Ly MD at OR [facility] N/A: Spine Cervical DEPUY SPINE INC 1020-64-060 / / 1cm X 5cm Magnifuse Posterior Cervical Bone Graft (Formerly Osteotech) Implanted:Qty : 1 on 03/15/2023 by Wyatt Ly MD at OR [facility] N/A: Spine Lumbar Medtronic Sofamor Danek [id number] 01/05/2025 [id number] / [id number] / LOT NA Catalyft Pl Expandable Interbody System, Interbody Cage Implanted:Qty : 2 on 03/15/2023 by Wyatt Ly MD at OR [facility] N/A: Spine Lumbar Medtronic 03/08/2030 [id number] / / [id number] 6.5 X 45 Screw Implanted:Qty : 2 on 03/15/2023 by Wyatt Ly MD at OR [facility] N/A: Spine Lumbar Medtronic [id number] / / Description:No Exp. Date, us ed out of set 6.5 X 40 Screw Implanted:Qty : 2 on 03/15/2023 by Wyatt Ly MD at OR [facility] N/A: Spine Lumbar Medtronic [id number] / / Description:No Expiration da te, used out of set 7.5 X 40 Screw Implanted:Qty : 2 on 03/15/2023 by Wyatt Ly MD at OR [facility] N/A: Spine Lumbar Medtronic [id number] / / Description:No Expiration Da te, used out of set Screw Bone Ti Set Solera 4.75m - [id number] Implanted:Qty : 6 on 03/15/2023 by Wyatt Ly MD at OR [facility] N/A: Spine Lumbar MEDTRON[employer] [id number] / / Description:No Expiration Da te, used out of set Anthony [place] 4.75mm Pbent 55mm - [id number] Implanted:Qty : 2 on 03/15/2023 by Wyatt Ly MD at OR [facility] N/A: Spine Lumbar MEDTRONIC : NEUROLOGIC PAIN [id number] / / 10cc Mastergraft Biologic Matrix Ext Block Implanted:Qty : 1 on 03/15/2023 by Wyatt Ly MD at OR [facility] N/A: Spine Lumbar Medtronic Sofamor Danek [id number] 11/18/2025 [id number] / [id number] / [id number] Dbx 2.5cc 099164 - [id number] - [id number] Implanted:Qty : 1 on 03/15/2023 by Wyatt Ly MD at OR [facility] N/A: Spine Lumbar MUSCULOSKELETAL TRANSPLANT FND [id number] 08/04/2024 988425 / [id number] / LOT NA Dbx 2.5cc 748589 - [id number] - [id number] Implanted:Qty : 1 on 03/15/2023 by Wytat Ly MD at OR [facility] N/A: Spine Lumbar MUSCULOSKELETAL TRANSPLANT FND [id number] 10/04/2024 [id number] / [id number] / LOT NA Graft Bone Infuse Kit Xsmall - [id number] - [id number] Implanted:Qty : 1 on 03/15/2023 by Wyatt Ly MD at OR [facility] N/A: Spine Lumbar MEDTRONIC : NEUROLOGIC PAIN [id number] 07/20/2024 [id number] / [id number] / [id number] documented as of this encounter Advance Directives Latest Code Status [...] Directives occurred with: Not Discussed Care Teams Trimmer Operator Three Knife Relationship Specialty Start Date End Date Cedric Downey III, MD [address] [place] [address] PCP - General Family Medicine 10/04/19 documented as of this encounter
--- OUTSIDE RECORDS SUMMARY | 2023-11-08 10:22 | External Medical Summary | Summary of Care ---
Author Name Unknown Organization [facility] Address [address] [place] [address] Phone [phone] Care Team Providers Care Auto Garage Attendant Name Role Phone Shayan PAGAN MD, Cedric Estes Primary Care Provider [phone] Reason for Referral * Medication Prior Authorization - Pending Review Specialty Diagnoses / Procedures Referred By Calos huggins Referred To Contact Diagnoses Generalized osteoarthrosis, involving multiple sites Zion Leon DO [address] [place] [address] Referral ID Status Reason Start Date Expiration Date V isits Requested Visits Authorized [id number] Pending Review 999 999 Reason for Visit * Reason Onset Date Comments Medication Refill 10/11/2023 Encounter Details Date Type Department Care Team (Late st Contact Info) Description 10/11/2023 Telephone Family Practice [facility] 200 [facility] [place] [address] Cedric Downey III, MD 200 [facility] [place] [address] Medication Refill Allergies Active Allergy Reactions Criticality [...] (toPROL XL)Indications:Juan Manuel nary artery disease involving [place] coronary artery of [place] heart without angina pectoris Take 0.5 Tablets [...] & Plan: Continue with zoloft History of ME (myocardial infarction) 04/25/2023 Syncope 04/25/2023 Last Assessment [...] non-displaced fx right #2,3,4,5 (CT done at [facility]) MEDICATION USE AGREEMENT 12/11/201408/2017 Overview: Started w. [...] Having left sciatic sx's - followed by [facility] Pain Management documented as of this encounter (statuses as of 10/13/2023) Immunizations Name Administration Dates Next Due COVID-19 mRNA, LNP-s, No Pre serve, 2-Dose Series ([employer]) 12/24/2021,05/21/2021,11/04/2020,10/14 Covid-19, Mrna, Lnp-s, Pf, B ivalent, [...] documentation. Prior authorization entered in [employer] at [facility]. [facility]#[id number] Please fax to [phone] before 9am 10/13. Thank you, Jorgito Weinstein ([facility]) Sessions Clerk III [facility] ([facility]) (formerly Telepharmacy) 10/13/2023, 7:34 AM * Telephone Encounter - Zion Leon DO - 10/12/2023 3:55 PM ESTSigned Prescriptions: Disp Refills HYDROcodone-Acetaminophen 5-325 MG Oral Ta*60 Tab*0 Sig: Take 1 Tablet by mouth every 6 hours as needed for Pain, Moderate or Pain, Severe. Max 2 per dayAuthorizingProvider: ZION LEON * Telephone Encounter - Lise Her RP - 10/12/2023 9:55 AM ESTPending Prescriptions: Disp [...] Drug Monitoring Program in compliance with the [facility] regulations before prescribing a controlled substance. [...] is due for refill: 10/13 Pharmacy: [facility] [address] [place] [address] Is this request for a controlled substance? Yes and Urine Drug Screen Not completed Toxicology results: No results found. However, due to the size of the patient record, not all encounters were searched.Please check Results Review for a complete set of results. Please approve if appropriate. Thank you, Lise Her, PharmD Clinical Pharmacist [facility] ([facility]) (formerly Telepharmacy) [phone] 10/12/2023, 9:54 AM * Telephone Encounter - YanesNelli eagle [facility] - 10/11/2023 2:24 PM EST Did you pend patient's preferred pharmacy and medication before forwarding?yes Pharmacy: [facility] #[facility] Pending Prescriptions: Disp Refills HYDROcodone-Acetaminophen 5-325 [...] Description 10/31/2023 10:00 AM EDT Home Visit [facility] [address] [place] [address] Martina Resendiz, RN [address] [place] [address] 11/22/2023 10:30 AM EDT Office Visit Cardiology, [facility] [address] [place] [address] Edward Oliver PA-C [address] [place] [address] 12/13/2023 9:20 AM EDT Office Visit [facility] 200 [facility] [place] [address] Cedric Downey III, MD 200 [facility] [place] [address] 01/03/2024 12:20 PM EDT Office Visit [facility] 200 [facility] [place] [address] Cedric Downey III, MD 200 [facility] [place] [address] 07/04/2024 9:20 AM EST Office Visit Rheumatology [place] [address] [place] [address] Yeyo Barrios MD [address] [place] [address] 09/06/2024 2:00 PM EST Office Visit Orthopaedics Spine Surgery, [facility] 132 [facility] [place] [address] Wyatt Ly MD [address] [place] [address] [place] [address] Scheduled Procedures Name Priority Associated Diagnoses [...] COPD 03/15/2024 03/15/2023 CKD HGB USE SMARTSET 11367 05/15/202405/15, 05/05/2023, 05/05/2023, Additional history exists CKD PHOS USE SMARTSET 76486 07/05/202406/21, 03/20/2023, 03/19/2023, Additional history exists DXA [...] D LEVEL ONCE IN A LIFETIME-USE SMARTSET# 11834 Completed 07/05/2023, 01/06/2020, 03/06/2018, Additional history exists [...] this encounter Medical Devices Implanted Type Area Technical Producer Device Identifier Shelf Expiration Date Model / Serial / Lot Dbx 5cc [id number] - [id number] - [id number] Implanted:Qty : 1 on 01/20/2021 by Wyatt Ly MD at OR [facility] Tissue - Human N/A: Spine Cervical MUSCULOSKELETAL TRANSPLANT FND [id number] 08/22/2021 [id number] / [id number] / LOT NA Vitoss Bimodal Foam Pack 10cc - [id number] - [id number] Implanted:Qty : 1 on 01/20/2021 by Wyatt Ly MD at OR [facility] N/A: Spine Cervical PAULETTE : SPINE 12/16/2021 [id number] / [id number] / [id number] 4.5 X 20mm Cortical Fixation Screw Implanted:Qty : 1 on 01/20/2021 by Wyatt Ly MD at OR [facility] N/A: Spine Cervical DE[employer] INC 1020-45-220 / / 4.5 X 22mm Cortical Fixation Screw Implanted:Qty : 1 on 01/20/2021 by Wyatt Ly MD at OR [facility] N/A: Spine Cervical DEPUY SP[employer] INC 1020-45-222 / / 3.5 X 12mm Screws Implanted:Qty : 8 on 01/20/2021 by Wyatt Ly MD at OR [facility] N/A: Spine Cervical DEPUY SPINE INC 1020-35-112 / / Set Screws Implanted:Qty : 10 on 01/20/2021 by Wyatt Ly MD at OR [facility] N/A: Spine Cervical DEPUY SPINE INC 1020-00-000 / / 60mm Rods Implanted:Qty : 2 on 01/20/2021 by Wyatt Ly MD at OR [facility] N/A: Spine Cervical DEPUY SPINE INC 1020-64-060 / / 1cm X 5cm Magnifuse Posterior Cervical Bone Graft (Formerly Osteotech) Implanted:Qty : 1 on 03/15/2023 by Wyatt Ly MD at OR [facility] N/A: Spine Lumbar Medtronic Sofamor Danek [id number] 01/05/2025 [id number] / [id number] / LOT NA Catalyft Pl Expandable Interbody System, Interbody Cage Implanted:Qty : 2 on 03/15/2023 by Wyatt Ly MD at OR [facility] N/A: Spine Lumbar Medtronic 03/08/2030 [id number] / / [id number] 6.5 X 45 Screw Implanted:Qty : 2 on 03/15/2023 by Wyatt Ly MD at OR [facility] N/A: Spine Lumbar Medtronic [id number] / / Description:No Exp. Date, us ed out of set 6.5 X 40 Screw Implanted:Qty : 2 on 03/15/2023 by Wyatt Ly MD at OR [facility] N/A: Spine Lumbar Medtronic [id number] / / Description:No Expiration da te, used out of set 7.5 X 40 Screw Implanted:Qty : 2 on 03/15/2023 by Wyatt Ly MD at OR [facility] N/A: Spine Lumbar Medtronic [id number] / / Description:No Expiration Da te, used out of set Screw Bone Ti Set Solera 4.75m - [id number] Implanted:Qty : 6 on 03/15/2023 by Wyatt Ly MD at OR [facility] N/A: Spine Lumbar MEDTRONIC [facility] [id number] / / Description:No Expiration Da te, used out of set Anthony [place] 4.75mm Pbent 55mm - [id number] Implanted:Qty : 2 on 03/15/2023 by Wyatt Ly MD at OR [facility] N/A: Spine Lumbar MEDTRONIC : NEUROLOGIC PAIN [id number] / / 10cc Mastergraft Biologic Matrix Ext Block Implanted:Qty : 1 on 03/15/2023 by Wyatt Ly MD at OR [facility] N/A: Spine Lumbar Medtronic Sofamor Danek [id number] 11/18/2025 [id number] / [id number] / [id number] Dbx 2.5cc [id number] - [id number] - [id number] Implanted:Qty : 1 on 03/15/2023 by Wyatt Ly MD at OR [facility] N/A: Spine Lumbar MUSCULOSKELETAL TRANSPLANT FND [id number] 08/04/2024 040426 / [id number] / LOT NA Dbx 2.5cc 220794 - [id number] - [id number] Implanted:Qty : 1 on 03/15/2023 by Wyatt Ly MD at OR [facility] N/A: Spine Lumbar MUSCULOSKELETAL TRANSPLANT FND [id number] 10/04/2024 [id number] / [id number] / LOT NA Graft Bone Infuse Kit Xsmall - [id number] - [id number] Implanted:Qty : 1 on 03/15/2023 by Wyatt Ly MD at OR [facility] N/A: Spine Lumbar MEDTRONIC : NEUROLOGIC PAIN [id number] 07/20/2024 [id number] / [id number] / [id number] documented as of this encounter Visit Diagnoses [...] Directives occurred with: Not Discussed Care Teams Auto Garage Attendant Relationship Specialty Start Date End Date Perkinsjose g PAGAN, Cedric Estes MD [address] [place] [address], [place] [id number] PCP - General Family Medicine 10/04/19 documented as of this encounter
--- OUTSIDE RECORDS SUMMARY | 2023-11-08 10:22 | External Medical Summary | Summary of Care ---
Author Name Unknown Organization [facility] Address [address] [place] [address] Phone [phone] Care Team Providers Care Poultry Farmworker Name Role Phone Shayan PAGAN MD, Cedric Estes Primary Care Provider [phone] Reason for Visit * Reason Onset Date Comments Health Maintenance 11/02/2023 Encounter Details Date Type Department Care Team (Late st Contact Info) Description 11/02/2023 Telephone Family Practice [facility] 200 [facility] [place] [address] Cedric Downey III, MD 200 [facility] [place] [address] Health Maintenance Allergies Active Allergy Reactions Criticality Noted Date Comments Varenicline 12/11/2014 nausea Corticosteroids Other (Please comment) Medium 12/27/2013 Hyper, Mental Status Changes on oral steroids Dm-Apap-Cpm Anaphylaxis,Other (Please comment) High 12/27/2013 Contact dermatitis Ibuprofen Other (Please comment) Low 12/27/2013 Affects acid reflux Iodinated Contrast Media Hives 10/08/2007 Penicillins 10/09/2007 Rash documented as of this encounter (statuses as of 11/02/2023) Medications Medication Sig Dispensed Refills Start Date [...] Hour (toPROL XL)Indications:Coron zeenat artery disease involving [place] coronary artery of [place] heart without angina pectoris Take 0.5 Tablets [...] as of this encounter (statuses as of 11/02/2023) Active Problems Problem Noted Date Diagnosed Date Migraine without status migrainosus, not intract able 04/25/2023 Last Assessment & Plan: Not needed Emgality for several months Major depressive disorder, r ecurrent episode, in partial remission 04/25/2023 Last Assessment & Plan: Continue with zoloft History of DE (myocardial infarction) 04/25/2023 Syncope 04/25/2023 Last Assessment [...] as of this encounter (statuses as of 11/02/2023) Resolved Problems Problem Noted Date Diagnosed Date [...] non-displaced fx right #2,3,4,5 (CT done at [facility]) MEDICATION USE AGREEMENT 12/11/201408/2017 Overview: Started wYu [...] Having left sciatic sx's - followed by [facility] Management documented as of this encounter (statuses as of 11/02/2023) Immunizations Name Administration Dates Next Due COVID-19 mRNA, LNP-s, No Pre serve, 2-Dose Series ([employer]) 12/24/2021,05/21/2021,11/04/2020,10/14 Covid-19, Mrna, Lnp-s, Pf, B ivalent, 30 Mcg, IM, 12 yrs and above ([employer]) 05/09/2022 PPD 10/25/2021 Pneumococcal Conjugate Vacc, 13 [...] encounter Miscellaneous Notes * Telephone Encounter - Yennifer Ho LPN - 11/02/2023 11:23 AM EDT Care Gaps Comprehensive Care Outreach Last Office/Telemedicine Visit: 09/05/2023 (in office), Visit date not found (telemedicine) Next Office Visit: 12/13/2023 Hemoglobin AIC Results: Lab Results Component Value Date/Time HEMOGLOBIN A1C - [facility] 5.9 (H) 03/10/2023 12:00 PM HEMOGLOBIN A1C - [facility] 5.9 (H) 12/09/2020 03:41 PM BP Readings from Last 1 Encounters: 09/21/23 154/68 Reviewed Health Maintenance below: Health Maintenance Topic Date Due Alpha-1 Antitrypsin Never done Depression Screening 10/29/2022 Albumin/Creatinine Ratio 02/25/2023 COLONOSCOPY-EVERY 5 YRS AGES 18-100 03/19/2023 COVID-19 Vaccine (2022- season) 2023 *BISPHONATE OR OTHER ACCEPTABLE MEDICATION NEEDED FOR OSTEOPOROSIS (REFER TO SMARTSET #1146) Never done Mammogram 12/07/2023 Mamm December 06 colon Care Gap Outreach Action Taken: Unable to reach fast busy documented in this encounter Plan of Treatment Upcoming Encounters Date Type Department Care Team (Late st Contact Info) Description 12/13/2023 9:20 AM EDT Office Visit [facility] 200 [facility] [place] [address] Cedric Downey III, MD [address] [place] [address] [place] [address] 12/18/2023 3:30 PM EDT Office Visit Cardiology, [facility] [place] [address] Edward Oliver PA-C [address] [facility] [address] 01/03/2024 12:20 PM EDT Office Visit [facility] 200 [facility] [place] [address] Cedric Downey III, MD 200 [facility] [place] [address] 07/04/2024 9:20 AM EST Office Visit Rheumatology [address] [place] [address] Yeyo Barrios MD [facility] [place] [address] 09/06/2024 2:00 PM EST Office Visit Orthopaedics Spine Surgery, [facility] [address] [place] [address] Wyatt Ly MD [address] [place] [address] [place] [id number] Scheduled Procedures Name Priority Associated Diagnoses Date/Ti me COLONOSCOPY FLEXIBLE PROXIMAL DIAGNOSTIC Recall History of colon polyps Health Maintenance Due Date Last Done Comments Alpha-1 Antitrypsin 1968 Depression Screening 10/29/2022 10/29/2021 Albumin/Creatinine Ratio 02/25/2023 02/25/2022, 01/19 COLONOSCOPY-EVERY 5 YRS AGES 18-100 03/19/2023 03/19/2018, 03/19/2018, 02/27/2018, Additional history exists COVID-19 Vaccine (2022- season) 2023 05/09/2022, 12/24/2021, 05/21/2021, Additional history exists *BISPHONATE OR OTHER ACCEPTABLE MEDICATION NEEDED FOR OSTEOPOROSIS (REFER TO SMARTSET #1146) 07/07/2023 Mammogram 12/07/2023 12/06/2022, 11/19, 07/06/2021, Additional history exists GFR 01/03/2024 07/05/2023, 04/22, 05/05/2023, Additional history exists O2 ASSESSMENT COMPLETED IN PAST YEAR FOR COPD 03/15/2024 03/15/2023 CKD HGB USE SMARTSET 92401 05/15/202405/15, 05/05/2023, 05/05/2023, Additional history exists CKD PHOS USE SMARTSET 85145 07/05/202406/21, 03/20/2023, 03/19/2023, Additional history exists DXA [...] D LEVEL ONCE IN A LIFETIME-USE SMARTSET# 42916 Completed 07/05/2023, 01/06/2020, 03/06/2018, Additional history exists [...] this encounter Medical Devices Implanted Type Area Care Team Coordinator Scheduler Device Identifier Shelf Expiration Date Model / Serial / Lot Dbx 5cc [id number] - [id number] - [id number] Implanted:Qty : 1 on 01/20/2021 by Wyatt Ly MD at OR [facility] Tissue - Human N/A: Spine Cervical MUSCULOSKELETAL TRANSPLANT FND [id number] 08/22/2021 401128 / [id number] / LOT NA Vitoss Bimodal Foam Pack 10cc - [id number] - [id number] Implanted:Qty : 1 on 01/20/2021 by Wyatt Ly MD at OR [facility] N/A: Spine Cervical PAULETTE : SPINE 12/16/2021 [id number] / [id number] / [id number] 4.5 X 20mm Cortical Fixation Screw Implanted:Qty : 1 on 01/20/2021 by Wyatt Ly MD at OR [facility] N/A: Spine Cervical DEPUY SP[employer] INC 1020-45-220 / / 4.5 X 22mm Cortical Fixation Screw Implanted:Qty : 1 on 01/20/2021 by Wyatt Ly MD at OR [facility] N/A: Spine Cervical DEPUY SP[employer] INC 1020-45-222 / / 3.5 X 12mm Screws Implanted:Qty : 8 on 01/20/2021 by Wyatt Ly MD at OR [facility] N/A: Spine Cervical DEPUY SPINE INC 1020-35-112 / / Set Screws Implanted:Qty : 10 on 01/20/2021 by Wyatt Ly MD at OR [facility] N/A: Spine Cervical DEPUY SPINE INC 1020-00-000 / / 60mm Rods Implanted:Qty : 2 on 01/20/2021 by Wyatt Ly MD at OR [facility] N/A: Spine Cervical DEPUY SPINE INC 1020-64-060 / / 1cm X 5cm Magnifuse Posterior Cervical Bone Graft (Formerly Osteotech) Implanted:Qty : 1 on 03/15/2023 by Wyatt Ly MD at OR [facility] N/A: Spine Lumbar Medtronic Sofamor Danek [id number] 01/05/2025 [id number] / [id number] / LOT NA Catalyft Pl Expandable Interbody System, Interbody Cage Implanted:Qty : 2 on 03/15/2023 by Wyatt Ly MD at OR [facility] N/A: Spine Lumbar Medtronic 03/08/2030 [id number] / / [id number] 6.5 X 45 Screw Implanted:Qty : 2 on 03/15/2023 by Wyatt Ly MD at OR [facility] N/A: Spine Lumbar Medtronic [id number] / / Description:No Exp. Date, us ed out of set 6.5 X 40 Screw Implanted:Qty : 2 on 03/15/2023 by Wyatt Ly MD at OR [facility] N/A: Spine Lumbar Medtronic [id number] / / Description:No Expiration da te, used out of set 7.5 X 40 Screw Implanted:Qty : 2 on 03/15/2023 by Wyatt Ly MD at OR [facility] N/A: Spine Lumbar Medtronic [id number] / / Description:No Expiration Da te, used out of set Screw Bone Ti Set Solera 4.75m - [id number] Implanted:Qty : 6 on 03/15/2023 by Wyatt Ly MD at OR [facility] N/A: Spine Lumbar MEDTRON[employer] [place] [employer] [id number] / / Description:No Expiration Da te, used out of set Anthony [place] 4.75mm Pbent 55mm - [id number] Implanted:Qty : 2 on 03/15/2023 by Wyatt Ly MD at OR [facility] N/A: Spine Lumbar MEDTRONIC : NEUROLOGIC PAIN [id number] / / 10cc Mastergraft Biologic Matrix Ext Block Implanted:Qty : 1 on 03/15/2023 by Wyatt Ly MD at OR [facility] N/A: Spine Lumbar Medtronic Sofamor Danek [id number] 11/18/2025 [id number] / [id number] / [id number] Dbx 2.5cc 829125 - [id number] - [id number] Implanted:Qty : 1 on 03/15/2023 by Wyatt Ly MD at OR [facility] N/A: Spine Lumbar MUSCULOSKELETAL TRANSPLANT FND [id number] 08/04/2024 053417 / [id number] / LOT NA Dbx 2.5cc 445990 - [id number] - [id number] Implanted:Qty : 1 on 03/15/2023 by Wyatt Ly MD at OR [facility] N/A: Spine Lumbar MUSCULOSKELETAL TRANSPLANT FND [id number] 10/04/2024 026130 / [id number] / LOT NA Graft Bone Infuse Kit Xsmall - [id number] - [id number] Implanted:Qty : 1 on 03/15/2023 by Wyatt Ly MD at OR [facility] N/A: Spine Lumbar MEDTRONIC : NEUROLOGIC PAIN [id number] 07/20/2024 [id number] / [id number] / [id number] documented as of this encounter Advance Directives [...] Directives occurred with: Not Discussed Care Teams Poultry Farmworker Relationship Specialty Start Date End Date Cedric Downey III, MD 200 [facility] [place], [place] [address] PCP - General Family Medicine 10/04/19 documented as of this encounter
--- OUTSIDE RECORDS SUMMARY | 2023-11-08 10:22 | External Medical Summary | Summary of Care ---
Author Name Unknown Organization [facility] Address [address] [place] [address] Phone [phone] Care Team Providers Care Liner Helper Name Role Phone Shayan PAGAN MD, Cedric Estes Primary Care Provider [phone] Reason for Visit * Reason Onset Date Comments Med Request 10/11/2023 Encounter Details Date Type Department Care Team (Late st Contact Info) Description 10/11/2023 Telephone Family Practice [facility] [address] [facility] [place] [address] Cedric Downey III, MD 200 [facility] [place] [address] Med Request Allergies Active Allergy Reactions Criticality Noted Date Comments Varenicline 12/11/2014 nausea Corticosteroids Other (Please comment) Medium 12/27/2013 Hyper, Mental Status Changes on oral steroids Dm-Apap-Cpm Anaphylaxis,Other (Please comment) High 12/27/2013 Contact dermatitis Ibuprofen Other (Please comment) Low 12/27/2013 Affects acid reflux Iodinated Contrast Media Hives 10/08/2007 Penicillins 10/09/2007 Rash documented as of this encounter (statuses as of 10/11/2023) Medications Medication Sig Dispensed Refills Start Date [...] (toPROL XL)Indications:Juan Manuel nary artery disease involving [place] coronary artery of [place] heart without angina pectoris Take 0.5 Tablets [...] 2023 Active HYDROcodone-Acetami nophen 5-325 MG Oral Tablet Take 1 Tablet by mouth every 6 hours as needed for Pain, Moderate or Pain, Severe. Max 2 per day 60 Tablet 0 09/13/2023 Active hydrOXYzine HCl 25 MG Oral Tablet Take 1 Tablet by mouth every 6 hours as needed for Anxiety. 30 Tablet 2 10/11/2023 Active hydrOXYzine HCl 25 MG Oral Tablet Take 1 Tablet by mouth every 6 hours as needed for Anxiety. 0 10/11/19 24 Discontinu ed(Refill) documented as of this encounter (statuses as of 10/11/2023) Active Problems Problem Noted Date Diagnosed Date Migraine without status migrainosus, not intract able 04/25/2023 Last Assessment & Plan: Not needed Emgality for several months Major depressive disorder, r ecurrent episode, in partial remission 04/25/2023 Last Assessment & Plan: Continue with zoloft History of LA (myocardial infarction) 04/25/2023 Syncope 04/25/2023 Last Assessment [...] as of this encounter (statuses as of 10/11/2023) Resolved Problems Problem Noted Date Diagnosed Date [...] 03/12/2015 03/12/2015 Closed rib fracture 02/12/2015 05/21/20 Overview: Seen by Dr. Piper - considering [...] fx right #2,3,4,5 (CT done at [facility]) MEDICATION USE AGREEMENT 12/11/201408/2017 Overview: Started [...] Having left sciatic sx's - followed by [facility] documented as of this encounter (statuses as of 10/11/2023) Immunizations Name Administration Dates Next Due COVID-19 [...] (15 years old or older) No 03/15/20 23 Cognitive Status Response Date of Assessm ent Because of a physical, menta l, or emotional condition, do you have serious difficulty concentrating, remembering, or making decisions? (5 years old or older) No 03/15/2023 documented as of this encounter Miscellaneous Notes * Telephone Encounter - Yael LopezLIGIA - 10/11/2023 2:50 PM EST Did you pend patient's preferred pharmacy and medication before forwarding?yes Pharmacy: [id number] [facility] Pending Prescriptions: Disp Refills hydrOXYzine HCl 25 MG Oral Tablet 30 Tab*2 Sig: Take 1 Tablet by mouth every 6 hours as needed for Anxiety. Last Visit: 09/05/2023 (in office), Visit date not found (telemedicine) Next Visit: 12/13/2023 If no future appointments scheduled, and last appointment is greater than a year ago, please schedule patient for a follow-up appointment Last date the medication was ordered: history per patient Is this request for a controlled substance?No Urine Drug Screen:No results found. However, due [...] AM HGBA1C 5.9 (H) 03/10/2023 12:00 PM * Telephone Encounter - Nelli Yanes CPhT - 10/11/2023 2:25 PM EST Pt calling requesting the following medication below that is listed as "Historical". The following information was provided: Medication Name: hydrOXYzine HCl Strength: 25 MG Oral Tablet Directions: Take 1 Tablet by mouth every 6 hours as needed for Anxiety. - Oral Preferred Quantity: 30 ds Previous Prescriber: JAMIE Preferred Pharmacy: [id number] [place] [address] Please review and approve if appropriate. Thank you, Michelle Yanes CPhT Picker Tender Helper II [facility] ([facility]) (Formerly Telepharm[facility]) 10/11/2023,2:26 PM documented in this encounter Plan of Treatment Upcoming Encounters Date Type Department Care Team ([facility] st Contact Info) Description 10/31/2023 10:00 AM EDT Home Visit [facility] [place], [facility] [address] [place] [address] Martina Resendiz, RN [address] [place] [address] 11/22/2023 10:30 AM EDT Office Visit Cardiology, [facility] [address] [place] [address] Edward Oliver PABrownC 132 [facility] [place] [address] 12/13/2023 9:20 AM EDT Office Visit [facility] [address] [facility] [place] [address] Cedric Downey III, MD [address] [place] [address] [place] [address] 01/03/2024 12:20 PM EDT Office Visit [facility] [address] [facility] [place] [address] Cedric Downey III, MD [address] [place] [address] [place] [address] 07/04/2024 9:20 AM EST Office Visit Rheumatology [address] [place] [address] Yeyo Barrios MD [address] [place] [address] [place] [address] 09/06/2024 2:00 PM EST Office Visit Orthopaedics Spine Surgery, [facility] [address] [place] [address] Wyatt Ly MD [address] [place] [address] [place] [id number] Scheduled Procedures Name Priority Associated Diagnoses Date/Ti me COLONOSCOPY FLEXIBLE PROXIMAL DIAGNOSTIC Recall History of colon polyps Health Maintenance Due Date Last Done Comments Alpha-1 Antitrypsin 1968 Depression Screening 10/29/2022 10/29/2021 Albumin/Creatinine Ratio 02/25/2023 02/25/2022, 01/19 COLONOSCOPY-EVERY 5 YRS AGES 18-100 03/19/2023 03/19/2018, 03/19/2018, 02/27/2018, Additional history exists COVID-19 Vaccine (24 season) 2023 05/09/2022, 12/24/2021, 05/21/2021, Additional history exists *BISPHONATE OR OTHER ACCEPTABLE MEDICATION NEEDED FOR OSTEOPOROSIS (REFER TO SMARTSET #1146) 07/07/2023 Mammogram 12/07/2023 12/06/2022, 11/19, 07/06/2021, Additional history exists GFR 01/03/2024 07/05/2023, 04/22, 05/05/2023, Additional history exists O2 ASSESSMENT COMPLETED IN PAST YEAR FOR COPD 03/15/2024 03/15/2023 CKD HGB USE SMARTSET 73661 05/15/202405/15, 05/05/2023, 05/05/2023, Additional history exists CKD PHOS USE SMARTSET 03886 07/05/202406/21, 03/20/2023, 03/19/2023, Additional history exists DXA [...] D LEVEL ONCE IN A LIFETIME-USE SMARTSET# 64329 Completed 07/05/2023, 01/06/2020, 03/06/2018, Additional history exists [...] this encounter Medical Devices Implanted Type Area Air Brake Mechanic Device Identifier Shelf Expiration Date Model / Serial / Lot Dbx 5cc [id number] - [id number] - [id number] Implanted:Qty : 1 on 01/20/2021 by Wyatt Ly MD at OR [facility] Tissue - Human N/A: Spine Cervical MUSCULOSKELETAL TRANSPLANT FND [id number] 08/22/2021 [id number] / [id number] / LOT NA Vitoss Bimodal Foam Pack 10cc - [id number] - [id number] Implanted:Qty : 1 on 01/20/2021 by Wyatt Ly MD at OR [facility] N/A: Spine Cervical PAULETTE : SPINE 12/16/[id number] / [id number] / [id number] 4.5 X 20mm Cortical Fixation Screw Implanted:Qty : 1 on 01/20/2021 by Wyatt Ly MD at OR [facility] N/A: Spine Cervical [employer] 1020-45-220 / / 4.5 X 22mm Cortical Fixation Screw Implanted:Qty : 1 on 01/20/2021 by Wyatt Ly MD at OR [facility] N/A: Spine Cervical [employer] 1020-45-222 / / 3.5 X 12mm Screws Implanted:Qty : 8 on 01/20/2021 by Wyatt Ly MD at OR [facility] N/A: Spine Cervical [employer] 1020-35-112 / / Set Screws Implanted:Qty : 10 on 01/20/2021 by Wyatt Ly MD at OR [facility] N/A: Spine Cervical [employer] 1020-00-000 / / 60mm Rods Implanted:Qty : 2 on 01/20/2021 by Wyatt Ly MD at OR [facility] N/A: Spine Cervical [employer]PU[employer] 1020-64-060 / / 1cm X 5cm Magnifuse Posterior Cervical Bone Graft (Formerly Osteotech) Implanted:Qty : 1 on 03/15/2023 by Wyatt Ly MD at OR [facility] N/A: Spine Lumbar Medtronic Sofamor Danek [id number] 01/05/2025 [id number] / [id number] / LOT NA Catalyft Pl Expandable Interbody System, Interbody Cage Implanted:Qty : 2 on 03/15/2023 by Wyatt Ly MD at OR [facility] N/A: Spine Lumbar Medtronic 03/08/2030 [id number] / / [id number] 6.5 X 45 Screw Implanted:Qty : 2 on 03/15/2023 by Wyatt Ly MD at OR [facility] N/A: Spine Lumbar Medtronic [id number] / / Description:No Exp. Date, us ed out of set 6.5 X 40 Screw Implanted:Qty : 2 on 03/15/2023 by Wyatt Ly MD at OR [facility] N/A: Spine Lumbar Medtronic [id number] / / Description:No Expiration da te, used out of set 7.5 X 40 Screw Implanted:Qty : 2 on 03/15/2023 by Wyatt Ly MD at OR [facility] N/A: Spine Lumbar Medtronic [id number] / / Description:No Expiration Da te, used out of set Screw Bone Ti Set Solera 4.75m - [id number] Implanted:Qty : 6 on 03/15/2023 by Wyatt Ly MD at OR [facility] N/A: Spine Lumbar MEDTRONIC [facility] [id number] / / Description:No Expiration Da te, used out of set [place] 4.75mm Pbent 55mm - [id number] Implanted:Qty : 2 on 03/15/2023 by Wyatt Ly MD at OR [facility] N/A: Spine Lumbar MEDTRONIC : NEUROLOGIC PAIN [id number] / / 10cc Mastergraft Biologic Matrix Ext Block Implanted:Qty : 1 on 03/15/2023 by Wyatt Ly MD at OR [facility] N/A: Spine Lumbar Medtronic Sofamor Dbek [id number] 11/18/2025 [id number] / [id number] / [id number] Dbx 2.5cc 283720 - [id number] - [id number] Implanted:Qty : 1 on 03/15/2023 by Wyatt Ly MD at OR [facility] N/A: Spine Lumbar MUSCULOSKELETAL TRANSPLANT FND [id number] 08/04/2024 [id number] / [id number] / LOT NA Dbx 2.5cc 853247 - [id number] - [id number] Implanted:Qty : 1 on 03/15/2023 by Wyatt Ly MD at OR [facility] N/A: Spine Lumbar MUSCULOSKELETAL TRANSPLANT FND [id number] 10/04/2024 532149 / [id number] / LOT NA Graft Bone Infuse Kit Xsmall - [id number] - [id number] Implanted:Qty : 1 on 03/15/2023 by Wyatt Ly MD at OR [facility] N/A: Spine Lumbar MEDTRONIC : NEUROLOGIC PAIN [id number] 07/20/2024 [id number] / [id number] / [id number] documented as of this encounter Advance Directives [...] 6:34 AM 01/20/2021 2:31 PM This or hceryl reflects the patients wishes and were consensually agreed upon. Question Answer Comments Discussion of Advance Directives occurred with: Not Discussed Care Teams Liner Helper Relationship Specialty Start Date End Date Cedric Downey III, MD [address] [place] [address] PCP - General Family Medicine 10/04/19 documented as of this encounter
--- OUTSIDE RECORDS SUMMARY | 2023-11-08 10:23 | External Medical Summary | Summary of Care ---
Author Name Unknown Organization [facility] Address [address] [place] [address] Phone [phone] Care Team Providers Care Biological Aide Name Role Phone Shayan PAGAN MD, Cedric Estes Primary Care Provider [phone] Reason for Visit * Reason Comments eRx-Medication Refill Encounter Details Date Type Department Care Team (Late st Contact Info) Description 09/14/2023 Refill Family Practice [facility] [address] [place] [address] Cedric Downey III, MD [address] [place] [address] Allergies Active Allergy Reactions Criticality Noted Date Comments Varenicline 12/11/2014 nausea Corticosteroids Other (Please comment) Medium 12/27/2013 Hyper, Mental Status Changes on oral steroids Dm-Apap-Cpm Anaphylaxis,Other (Please comment) High 12/27/2013 Contact dermatitis Ibuprofen Other (Please comment) Low 12/27/2013 Affects acid reflux Iodinated Contrast Media Hives 10/08/2007 Penicillins 10/09/2007 Rash documented as of this encounter (statuses as of 09/15/2023) Medications Medication Sig Dispensed Refills Start Date [...] Hour (toPROL XL)Indications:Coron zeenat artery disease involving [place] coronary artery of [place] heart without angina pectoris Take 0.5 Tablets [...] 2023 Active HYDROcodone-Acetamin ophen 5-325 MG Oral Tablet Take 1 Tablet by mouth every 6 hours as needed for Pain, Moderate or Pain, Severe. Max 2 per day 60 Tablet 0 09/13/2023 Active documented as of this encounter (statuses as of 09/15/2023) Active Problems Problem Noted Date Diagnosed Date Migraine without status migrainosus, not intract able 04/25/2023 Last Assessment & Plan: Not needed Emgality for several months Major depressive disorder, r ecurrent episode, in partial remission 04/25/2023 Last Assessment & Plan: Continue with zoloft History of [place] (myocardial infarction) 04/25/2023 Syncope 04/25/2023 Last Assessment [...] as of this encounter (statuses as of 09/15/2023) Resolved Problems Problem Noted Date Diagnosed Date [...] 02/12/2015 05/21/20 18 Overview: Seen by Dr. Pipre - considering a nerve block Bone scan [...] non-displaced fx right #2,3,4,5 (CT done at [facility]) MEDICATION USE AGREEMENT 12/11/201408/2017 Overview: Started wYu [...] as of this encounter (statuses as of 09/15/2023) Immunizations Name Administration Dates Next Due COVID-19 mRNA, LNP-s, No Pre serve, 2-Dose Series ([facility]) 12/24/2021,05/21/2021,11/04/2020,10/14 Covid-19, Mrna, Lnp-s, Pf, B ivalent, [...] Date Smoking Tobacco: Former Cigarettes 0.3 51 Q uit: 11/26/2020 Smokeless Tobacco: Never Alcohol Use Standard [...] encounter Miscellaneous Notes * Telephone Encounter - Tanika Barreto RPh - 09/15/2023 9:20 AM EST Refused Prescriptions: Disp Refills Lisinopril 10 MG Oral Tablet (Prinivil) 90 Tab*1 Sig: TAKE 1 TABLET BY MOUTH EVERY DAY IN THE MORNINGRefused By: TANIKA BARRETO for Refusal: Course of treatment complete documented in this encounter Plan of Treatment Upcoming Encounters Date Type Department Care Team (Late st Contact Info) Description 09/21/2023 10:00 AM EST Home Visit [facility] [address] [place] [address] Martina Resendiz RN [address] [place] [address] 09/25/2023 10:30 AM EST Imaging [facility] 2nd Floor Cardiology, [place] [address] [facility] [place] [address] Gw, Excess Time Radiology 132 [facility] [place] [address] 11/22/2023 10:30 AM EDT Office Visit Cardiology, [facility] [place] [address] Edward Oliver PA-C [facility] [address] 12/13/2023 9:20 AM EDT Office Visit [facility] 200 [facility] [place] [address] Cedric Downey III, MD 200 [facility] [place] [address] 01/03/2024 12:20 PM EDT Office Visit [facility] 200 [facility] [place] [address] Cedric Downey III, MD [address] [facility] [address] 07/04/2024 9:20 AM EST Office Visit Rheumatology [address] [place] [address] Yeyo Barrios MD [facility] [place], [place] [address] 09/06/2024 2:00 PM EST Office Visit Orthopaedics Spine Surgery, [facility] [address] [facility] [place] [address] Wyatt Ly MD [address] [place] [address] [place] [address] Scheduled Procedures Name Priority Associated Diagnoses Date/Ti [...] TO SMARTSET #1146) 07/07/2023 Mammogram 12/07/2023 12/06/2022, 06/21, 08/08/2019, Additional history exists GFR 01/03/2024 07/05/2023, 04/22, 05/05/2023, Additional history exists O2 ASSESSMENT COMPLETED IN PAST YEAR FOR COPD 03/15/2024 03/15/2023 CKD HGB USE SMARTSET 86802 05/15/202405/15, 05/05/2023, 05/05/2023, Additional history exists CKD PHOS USE SMARTSET 10936 07/05/202406/21, 03/20/2023, 03/19/2023, Additional history exists DXA Scan 07/03/2025 07/03/2023, 08/2020, 02/11/2019, Additional history exists Lipid Panel 05/15/2028 05/15/2023, 0302/2022, 06/02/2020, Additional history exists DTaP,Tdap,and Td Vaccines (4 - Td or Tdap) 04/27/2032 04/27/2022, 12/01/2011, 12/04/1999 Zoster Vaccines Completed 04/23/2020, 02/18, 03/25/2015 Pneumococcal Vaccine: 65+ Years Completed 05/25/2020, 07/04/2017, 12/08/2015, Additional history exists Influenza Vaccine (FLU shot) Completed , 05/05/2022, 04/21/2021, Additional history exists VITAMIN D LEVEL ONCE IN A LIFETIME-USE SMARTSET# 69429 Completed 07/05/2023, 01/06/2020, 03/06/2018, Additional history exists [...] this encounter Medical Devices Implanted Type Area Physician Relations Manager Device Identifier Shelf Expiration Date Model / Serial / Lot Dbx 5cc [id number] - [id number] - [id number] Implanted:Qty : 1 on 01/20/2021 by Wyatt Ly MD at OR [facility] Tissue - Human N/A: Spine Cervical MUSCULOSKELETAL TRANSPLANT FND [id number] 08/22/2021 [id number] / [id number] / LOT NA 60mm Rods Implanted:Qty : 2 on 01/20/2021 by Wyatt Ly MD at OR [facility] N/A: Spine Cervical [employer] INC 1020-64-0 60 / / 10cc Mastergraft Biologic Matrix Ext Block Implanted:Qty : 1 on 03/15/2023 by Wyatt Ly MD at OR [facility] N/A: Spine Lumbar Medtronic Sofamor Danek [id number] 11/18/2025 [id number] / [id number] / [id number] documented as of this encounter Advance Directives [...] 01/20/2021 2:31 PM 01/23/2021 5:22 PM This o rder reflects the patients wishes and were consensually agreed upon. Question Answer Comments Discussion of Advance Directives occurred with: Not Discussed Full Code 01/20/2021 6:34 AM 01/20/2021 2:31 PM This or cheryl reflects the patients wishes and were consensually agreed upon. Question Answer Comments Discussion of Advance Directives occurred with: Not Discussed Care Teams Biological Aide Relationship Specialty Start Date End Date Cedric Downey III, MD 200 [place] [address] PCP - General Family Medicine 10/04/19 documented as of this encounter
--- OUTSIDE RECORDS SUMMARY | 2023-11-08 10:23 | External Medical Summary | Summary of Care ---
Author Name Unknown Organization [facility] Address [address] [place] [address] Phone [phone] Care Team Providers Care Fabric Worker Supervisor Name Role Phone Shayan PAGAN MD, Lisandra Estes Primary Care Provider [phone] Reason for Visit * Reason Onset Date Comments Medication Refill 09/12/2023 Encounter Details Date Type Department Care Team (Late st Contact Info) Description 09/12/2023 Refill Family Practice [facility] [place] [address] [place] [address] Lisandra Fletcher III, MD [address] [place] [address] Allergies Active Allergy Reactions Criticality Noted Date Comments Varenicline 12/11/2014 nausea Corticosteroids Other (Please comment) Medium 12/27/2013 Hyper, Mental Status Changes on oral steroids Dm-Apap-Cpm Anaphylaxis,Other (Please comment) High 12/27/2013 Contact dermatitis Ibuprofen Other (Please comment) Low 12/27/2013 Affects acid reflux Iodinated Contrast Media Hives 10/08/2007 Penicillins 10/09/2007 Rash documented as of this encounter (statuses as of 09/13/2023) Medications Medication Sig Dispensed Refills Start Date [...] (toPROL XL)Indications:Juan Manuel nary 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 Max 2 per day 60 Tablet 0 08/16/2023 09/12/19 24 Discontinu ed(Refill) documented as of this encounter (statuses as of 09/13/2023) Active Problems Problem Noted Date Diagnosed Date Migraine without status migrainosus, not intract able 04/25/2023 Last Assessment & Plan: Not needed Emgality for several months Major depressive disorder, r ecurrent episode, in partial remission 04/25/2023 Last Assessment & Plan: Continue with zoloft History of NC (myocardial infarction) 04/25/2023 Syncope 04/25/2023 Last Assessment [...] but now well controlled 2 D Echo, 7/6/23: Interpretation Summary The examination is adequate to [...] as of this encounter (statuses as of 09/13/2023) Resolved Problems Problem Noted Date Diagnosed Date [...] in 3 yrs Depression with anxiety 03/12/2015 10/08/2017 Low back pain 03/12/2015 03/12/2015 Closed rib [...] fx right #2,3,4,5 (CT done at [facility]) MEDICATION USE AGREEMENT 12/11/201408/2017 Overview: Started w. [...] as of this encounter (statuses as of 09/13/2023) Immunizations Name Administration Dates Next Due COVID-19 mRNA, LNP-s, No Pre serve, 2-Dose Series (MiTio) 12/24/2021,05/21/2021,11/04/2020,10/14 Covid-19, Mrna, Lnp-s, Pf, B ivalent, [...] Encounter - Lisandra Fletcher III, MD - 09/13/2023 2:11 PM ESTSigned Prescriptions: Disp Refills HYDROcodone-Acetaminophen 5-325 MG Oral Ta*60 Tab*0 Sig: Take 1 Tablet by mouth every 6 hours as needed for Pain, Moderate or Pain, Severe. Max 2 per dayAuthorizingProvider: LISANDRA FLETCHER III * Telephone Encounter - Quinton Dduley [facility] - 09/13/2023 11:48 AM EST Pending Prescriptions: Disp Refills HYDROcodone-Acetaminophen 5-325 MG Oral Ta*60 Tab*0 Sig: Take 1 Tablet by mouth every 6 hours as needed for Pain, Moderate or Pain, Severe. Max 2 per day * Telephone Encounter - Quinton Dudley [facility] - 09/13/2023 11:47 AM EST I have reviewed the patients controlled substance dispensing history in the Prescription Drug Monitoring Program in compliance with the [facility] regulations before prescribing a controlled substance. PDMP checked on 09/13/2023. Pending Prescriptions: Disp Refills HYDROcodone-Acetaminophen 5-325 MG Oral T*60 Tab*0 Sig: Take 1 Tablet by mouth every 6 hours as needed for Pain, Moderate or Pain, Severe. Max 2 per day Last Visit: 09/05/2023 (in office), Visit date not found (telemedicine) Next Visit: 12/13/2023 Date medication was last filled: 08/17/23 Date medication is due for refill: 09/15/23 Pharmacy: [id number] Is this request for a controlled substance? Yes and Urine Drug Screen Not completed Toxicology results: No results found. However, due to the size of the patient record, not all encounters were searched.Please check Results Review for a complete set of results. Please approve if appropriate. Thanks, Quinton Dudley, PharmD Clinical Pharmacist [facility] ([facility]) (formerly Telepharmacy) [phone] 09/13/2023, 11:47 AM * Telephone Encounter - Lubna Tyler CPhT - 09/12/2023 12:33 PM EST Did you pend patient's preferred pharmacy and medication before forwarding?yes Pharmacy: [id number] [address] [facility] Pending Prescriptions: Disp Refills HYDROcodone-Acetaminophen 5-325 MG [...] appointment Last date the medication was ordered: 08/16/2023 Is this request for a controlled substance?Yes, What was the last refill date 08/16/2023 w/ quantity 60 and dosage 5-325mg and Urine Drug Screen Not completed Urine [...] Upcoming Encounters Date Type Department Care Team ([facility] st Contact Info) Description 09/21/2023 10:00 AM EST Home Visit [facility] [address] [place] [address] Martina Resendiz, RN [address] [place] [address] 09/25/2023 10:30 AM EST Imaging [facility] 2nd Floor Cardiology, [place] [address] [place] [address] Gw, Excess Time Radiology [address] [place] [address] 11/22/2023 10:30 AM EDT Office Visit Cardiology, [facility] [address] [place] [address] Edward Oliver PA-C [address] [place] [address] 12/13/2023 9:20 AM EDT Office Visit [facility] [address] [place] [address] Lisandra Fletcher III, MD [address] [place] [address] 01/03/2024 12:20 PM EDT Office Visit [facility] [address] [place] [address] Lisandra Fletcher III, MD [address] [facility] [address] [place] [address] 07/04/2024 9:20 AM EST Office Visit Rheumatology [place] [id number] [facility] [place] [address] Yeyo Barrios MD [address] [facility] [place], [place] [address] 09/06/2024 2:00 PM EST Office Visit Orthopaedics Spine Surgery, [facility] [address] [facility] [place] [address] Wyatt Ly MD [address] Em[place]iano [...] COPD 03/15/2024 03/15/2023 CKD HGB USE SMARTSET 46894 05/15/202405/15, 05/05/2023, 05/05/2023, Additional history exists CKD PHOS USE SMARTSET 98348 07/05/202406/21, 03/20/2023, 03/19/2023, Additional history exists DXA [...] D LEVEL ONCE IN A LIFETIME-USE SMARTSET# 00069 Completed 07/05/2023, 01/06/2020, 03/06/2018, Additional history exists [...] this encounter Medical Devices Implanted Type Area Bankruptcy Paralegal Device Identifier Shelf Expiration Date Model / Serial / Lot Dbx 5cc [id number] - [id number] - [id number] Implanted:Qty : 1 on 01/20/2021 by Wyatt Ly MD at [facility] Tissue - Human N/A: Spine Cervical [employer] FND [id number] 08/22/2021 [id number] / [id number] / LOT NA 60mm Rods Implanted:Qty : 2 on 01/20/2021 by Wyatt Ly MD at OR [facility] N/A: Spine Cervical [employer] [id number] / / 10cc Mastergraft Biologic Matrix Ext Block Implanted:Qty : 1 on 03/15/2023 by Wyatt Ly MD at OR [facility] N/A: Spine Lumbar [employer] [id number] 11/18/2025 [id number] / [id number] / [id number] documented as of this encounter Advance Directives [...] Directives occurred with: Not Discussed Care Teams Fabric Worker Supervisor Relationship Specialty Start Date End Date Lisandra Fletcher III, MD [address] [place] [address] PCP - General Family Medicine 10/04/19 documented as of this encounter
--- OUTSIDE RECORDS SUMMARY | 2023-11-08 10:23 | External Medical Summary | Summary of Care ---
Author Name Unknown Organization [facility] Address [address] [place] [address] Phone [phone] Care Team Providers Care Tieing Machine Operator Name Role Phone Shayan PAGAN MD, Cedric Estes Primary Care Provider [phone] Reason for Visit * Reason Comments Jaw Pain Encounter Details Date Type Department Care Team (Latest Contact Info) Description 09/05/2023 10:40 AM EST Office Visit [facility] [address] [place] [address] Cedric Downey III, MD [address] [place] [address] Jaw pain*; COPD, group B, by GOLD 2017 classification ([facility]); Major depressive disorder, recurrent episode, in partial remission ([facility]); Hypertensive heart and kidney disease without heart failure and with stage 3a chronic kidney disease ([facility]); Migraine without status migrainosus, not intractable, unspecified migraine type; ARVIND (generalized anxiety disorder); History of MD (myocardial infarction); Age-related osteoporosis without current pathological fracture; Dyslipidemia, goal LDL below 70; TMJ pain dysfunction syndrome; Precordial chest pain Allergies Active Allergy Reactions Criticality Noted Date Comments Varenicline 12/11/2014 nausea Corticosteroids Other (Please comment) Medium 12/27/2013 Hyper, Mental Status Changes on oral steroids Dm-Apap-Cpm Anaphylaxis,Other (Please comment) High 12/27/2013 Contact dermatitis Ibuprofen Other (Please comment) Low 12/27/2013 Affects acid reflux Iodinated Contrast Media Hives 10/08/2007 Penicillins 10/09/2007 Rash documented as of this encounter (statuses as of 09/10/2023) Medications Medication Sig Dispensed Refills Start Date [...] by mouth in the morning. 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 Take 0.5 Tablets [...] 2 per day 60 Tablet 0 08/16/2023 Active documented as of this encounter (statuses as of 09/10/2023) Active Problems Problem Noted Date Diagnosed Date Migraine without status migrainosus, not intract able 04/25/2023 Last Assessment & Plan: Not needed Emgality for several months Major depressive disorder, r ecurrent episode, in partial remission 04/25/2023 Last Assessment & Plan: Continue with zoloft History of MD (myocardial infarction) 04/25/2023 Syncope 04/25/2023 Last Assessment [...] as of this encounter (statuses as of 09/10/2023) Resolved Problems Problem Noted Date Diagnosed Date [...] [facility]) MEDICATION USE AGREEMENT 12/11/201408/2017 Overview: Soheila Bowers [...] Having left sciatic sx's - followed by [facility] documented as of this encounter (statuses as of 09/10/2023) Immunizations Name Administration Dates Next Due COVID-19 mRNA, LNP-s, No Pre serve, 2-Dose Series (OrSense) 12/24/2021,05/21/2021,11/04/2020,10/14 Covid-19, Mrna, Lnp-s, Pf, B ivalent, [...] on file documented as of this encounter Last Filed Vital Signs Vital Sign Reading Time Taken Comments Blood Pressure 104/50 09/05/2023 10:43 AM EST Pulse 68 09/05/2023 10:43 AM EST Temperature 36.4 C (97.5 F) 09/05/2023 10:[address] Respiratory Rate 16 09/05/2023 10:43 AM EST Oxygen Saturation - - Inhaled Oxygen Concentration - - Weight 67.1 kg (148 lb) 09/05/2023 10:43 AM EST Height - - Body Mass Index 29.88 04/17/2023 9:42 AM EDT documented in this encounter Functional Status Functional Status Response [...] No 03/15/2023 documented as of this encounter Progress Notes * Shayan III, Cedric Estes MD - 09/05/2023 11:08 AM EST Subjective: Sandy Fan is a 73 year old female. Chief Complaint Patient presents with Jaw Pain HPI: 2 concerns today pain in her began to 3 days ago worse after she eats particularly dinner doeshave dentures feels that she needs new ones also chest pain was in the ER last month pain is left-sided had episode yesterday lasted about 15 minutes hydroxyzine seemed to help denies current fever chills no unusual taste in her mouth has a history of migraines COPD hypertension chronic kidney disease history of am I anxiety acid reflux Last LDL was 60 back in April last GFR 64 PMH: Patient Active Problem List Diagnosis Code Dyslipidemia E78.5 Generalized osteoarthrosis, involving multiple sites M15.9 Gastroesophageal reflux disease without esophagitis K21.9 Age-related osteoporosis without current pathological fracture M81.0 Pain management R52 Diastolic dysfunction I51.89 ARVIND (generalized anxiety disorder) F41.1 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.9, G47.36 COPD, group B, by GOLD 2017 classification ([facility]) J44.9 Chronic kidney disease, stage 3a ([facility]) N18.31 Cervical spinal stenosis M48.02 Food insecurity Z59.41 Lumbar spinal stenosis M48.061 Hypertensive heart and kidney disease without heart failure and with stage 3a chronic kidney disease ([facility]) I13.10, N18.31 Migraine without status migrainosus, not intractable G43.909 Major depressive disorder, recurrent episode, in partial remission ([facility]) F33.41 History of MD (myocardial infarction) I25.2 Syncope R55 Current Outpatient Medications Medication Sig Dispense Refill ASPIRIN 81 MG PO TABS 1 tablet by mouth daily Calcium Carbonate 600 MG Oral Tablet Take 1 Tablet by mouth 2 times a day with morning and evening meals. 60 Tab 5 Acetaminophen ER 650 MG Oral Tablet Extended Release (Tylenol 8 Hour) Take 2 Tablets by mouth 2 times a day 30 minutes before morning and evening meals. 100 Tablet 8 Galcanezumab-gnlm 120 MG/ML Subcutaneous Solution Auto-injector (Emgality) Inject 1 mL under the skin Every Month. (Patient not taking: Reported on 08/23/2023) 1 mL 5 Ezetimibe 10 MG Oral Tablet (Zetia) TAKE 1 TABLET BY MOUTH EVERY DAY 90 Tablet 3 Omeprazole 40 MG Oral Capsule Delayed Release (PriLOSEC) TAKE 1 CAPSULE BY MOUTH EVERY DAY 100 Capsule 3 Amitriptyline HCl 10 MG Oral Tablet (Elavil) Take 2 Tablets by mouth at bedtime. 180 Tablet 3 Anoro Ellipta 62.5-25 MCG/ACT Inhalation Aerosol Powder Breath Activated (umeclidinium-vilanterol) Inhale 1 Puff by mouth in the morning. 30 Each 11 Atorvastatin Calcium 80 MG Oral Tablet (Lipitor) TAKE 1 TABLET BY MOUTH EVERY DAY IN THE MORNING 90Tablet 3 tiZANidine HCl 4 MG Oral Tablet (Zanaflex) TAKE 1 TABLET BY MOUTH EVERY 8 HOURS NEEDED FOR MUSCLE SPASM 30 Tablet 5 Metoprolol Succinate ER 25 MG Oral Tablet Extended Release 24 Hour (toPROL XL) Take 0.5 Tablets by mouth daily. 90 Tablet 3 Gabapentin 300 MG Oral Capsule (Neurontin) Take 1 Capsule by mouth 2 times a day in the morning andat noon. Take 1 capsule by mouth in the morning and 2 capsules by mouth before bedtime 90 Capsule 11 Nitroglycerin 0.4 MG Sublingual Tablet Sublingual (Nitrostat) Take 1 tab sublingual as needed for chest pain 25 Tablet 5 Sertraline HCl 100 MG Oral Tablet (Zoloft) TAKE 2 TABLETS BY MOUTH EVERY DAY 180 Tablet 3 HYDROcodone-Acetaminophen 5-325 MG Oral Tablet Take 1 Tablet by mouth every 6 hours as needed for Pain, Moderate or Pain, Severe. Max 2 per day 60 Tablet 0 No current facility-administered medications for this visit. Review of patient's allergies indicates: Allergen Reactions Dm-Apap-Cpm Anaphylaxis and Other (Please comment) Contact dermatitis Corticosteroids Other (Please comment) Hyper, Mental Status Changes on oral steroids Chantix [Varenicline] nausea Iodinated Contrast Media Hives Penicillin [Penicillins] Rash Ibuprofen Other (Please comment) Affects acid reflux Past Medical History: Diagnosis Date Anxiety and depression Arthritis Back problem Chronic daily headache 12/23/2016 CKD (chronic kidney disease) COPD (chronic obstructive pulmonary disease) (HCC) Esophageal reflux Generalized osteoarthrosis, involving multiple sites Hematuria, unspecified HTN (hypertension) Hypomagnesemia Mixed hyperlipidemia Neuralgia, neuritis, and radiculitis, unspecified Osteoporosis 09/10/2015 Fosamax started 09/10/15 DEXA: 2016: S/H: -2.7/-2.2 - high risk Unspecified asthma(493.90) resolved per pt Urinary tract infection, site not specified Past Surgical History: Procedure Laterality Date ALLOGRAFT, MORSELIZED, FOR SPINE SURGERY N/A 03/15/2023 ALLOGRAFT FOR SPINE SURGERY MORSELIZED performed by Wyatt Ly MD at [facility] AUTOGRAFT, SPINE SURG, MORSELIZED N/A 03/15/2023 OBTAIN AUTOGRAFT FOR SPINE SURGERY MORSELIZED SEPARATE INCISION performed by Wyatt Ly MD at [facility] BONE MARROW ASPIRATION BONE GRAFTING SPINE SURGERY ONLY N/A 03/15/2023 BONE MARROW ASPIRATION FOR SPINE BONE GRAFTING performed by Wyatt Ly MD at [facility] CARPAL TUNNEL SURGERY 2011 Left DELIVERY 1970 COLONOSCOPY W/ BIOPSY (RECTUM) 10/08/2007 lipoma, hemorriods COLONOSCOPY, DIAGNOSTIC (RECTUM) 04/15/2015 normal, repeat in 3 yrs/COLONOSCOPY FLEXIBLE PROXIMAL DIAGNOSTIC performed by Judith White DO atENDOSCOPY [facility] COLONOSCOPY, DIAGNOSTIC (RECTUM) 02/27/2018 poor prep, repeat/COLONOSCOPY FLEXIBLE PROXIMAL DIAGNOSTIC performed by Judith White DO at ENDOSCOPY [facility] COLONOSCOPY, DIAGNOSTIC (RECTUM) 03/19/2018 normal, repeat 5 yrs/COLONOSCOPY FLEXIBLE PROXIMAL DIAGNOSTIC performed by Judith White DO at ENDOSCOPY [facility] CYSTOSCOPY 2013 DILATION AND CURETTAGE (D&C) EGD, FLEXIBLE, DIAGNOSTIC 10/08/2007 wnl EGD, FLEXIBLE, DIAGNOSTIC 04/15/2015 mild irritation of the stomach/ESOPHAGOGASTRODUODENOSCOPY (EGD), FLEXIBLE, TRANSORAL, DIAGNOSTIC performed by Judith White DO at ENDOSCOPY [facility] EGD, FLEXIBLE, DIAGNOSTIC 10/25/2016 normal/ESOPHAGOGASTRODUODENOSCOPY (EGD), FLEXIBLE, TRANSORAL, DIAGNOSTIC performed by Judith White DO at ENDOSCOPY [facility] INSERT BIOMECH DEVICE INTERVERTEBRAL DISC SPACE W/ARTHRODESIS N/A 03/15/2023 INSERTION INTERBODY BIOMECHANICAL DEVICE ANTERIOR W/INTERBODY ARTHRODESIS performed by Wyatt Ly MD at [facility] NECK SPINE FUSION (CERV, BELOW C2) N/A 01/20/2021 ARTHRODESIS SPINE POSTERIOR CERVICAL performed by Wyatt Ly MD at [facility] REMOVE ADDED SPINE LAMINA, 1 SEG N/A 01/20/2021 LAMINECTOMY FACETECTOMY AND FORAMINOTOMY ADDITIONAL LEVELS performed by Wyatt Ly MD at [facility] REMOVE GALLBLADDER 2016 REMOVE LUMBAR SPINE LAMINA, 1 SEG N/A 03/15/2023 LAMINECTOMY FACETECTOMY AND FORAMINOTOMY LUMBAR performed by Wyatt Ly MD at [facility] REMOVE NECK SPINE LAMINA, 1 SEG N/A 01/20/2021 LAMINECTOMY FACETECTOMY AND FORAMINOTOMY POSTERIOR CERVICAL performed by Wyatt Ly MD at [facility] SHOULDER SURGERY PROCEDURE NEC 11/1997 Right - arthroscopy SPINAL FUSION, ADD'L INTERSPACE N/A 03/15/2023 SPINAL FUSION POSTERIOR OR POSTERIOR LATERAL, ADD'L INTERSPACE performed by Wyatt Ly MD at [facility] SPINAL FUSION, LUMBAR, COMBINED N/A 03/15/2023 ARTHRODESIS SPINE POSTERIOR OR POSTERIOR LATERAL WITH LAMINECTOMY LUMBAR, COMBINED performed by Wyatt Ly MD at [facility] SPINE FUSION, EACH ADD'L VERTEBRA N/A 01/20/2021 ARTHRODESIS SPINE POSTERIOR EACH ADDITIONAL VERTEBRAE performed by Wyatt Ly MD at [facility] SPINE SEG FIX, POST, 3-6 SEG, INSERT N/A 01/20/2021 POSTERIOR SPINE SEGMENTAL INSTRUMENTATION 3 TO 6 PSF performed by Wyatt Ly MD at [facility] SPINE SEG FIX, POST, 3-6 SEG, INSERT N/A 03/15/2023 POSTERIOR SPINE SEGMENTAL INSTRUMENTATION 3 TO 6 PSF performed by Wyatt Ly MD at [facility] TOTAL HYSTERECTOMY DUB - ovaries intact Objective: The patient is a 73 year old female BP 104/50 | Pulse 68 | Temp 36.4 C (97.5 F) | Resp 16 | Wt 67.1 kg (148 lb) | BMI 29.88 kg/m | BSA 1.67 m General: alert, healthy, and no distress Eye Exam: PERRLA, extraocular movements intact, conjunctiva are pink and non- injected, sclera clear Oropharynx: no exudate, no erythema, lips, buccal mucosa, and tongue normal, and mucous membranes are moist Heart: regular rate & rhythm, no murmur, and no gallops Lungs: lungs clear to auscultation, left costochondral area tenderness Extremities: no clubbing, no cyanosis ASSESSMENT: R68.84 Jaw pain (primary encounter diagnosis) J44.9 COPD, group B, by GOLD 2017 classification ([facility]) F33.41 Major depressive disorder, recurrent episode, in partial remission ([facility]) I13.10,N18.31 Hypertensive heart and kidney disease without heart failure and with stage 3a chronickidney disease ([facility]) G43.909 Migraine without status migrainosus, not intractable, unspecified migraine type F41.1 ARVIND (generalized anxiety disorder) I25.2 History of MD (myocardial infarction) M81.0 Age-related osteoporosis without current pathological fracture E78.5 Dyslipidemia, goal LDL below 70 M26.629 TMJ pain dysfunction syndrome R07.2 Precordial chest pain PLAN: EKG done await Cardiology interpretation trial moist heat chest Call if worsening not resolving Follow up in 3 month(s). Cedric Downey III, MD * Kathleen Morales RN - 09/05/2023 10:43 AM EST Pt has jaw pain. Chronic chest pain. Stops when she presses on it. Has been under stress. Mother is 91 and has dementia. Pt is primary pipe welder. Also brother just got out of hospital.is on restricted diet but pt's mother keeps on making sausage, velazquez etc which he is not supposed to have. documented in this encounter Procedure Notes * Efren Sheppard DO - 09/05/2023 11:30 AM ESTAssociated Order(s): EKG REASON FOR STUDY: PRECORDIAL PAIN CONCLUSIONS: Normal sinus rhythm Cannot rule out Anterior infarct , age undetermined Abnormal ECG When compared with ECG of 05-JUL-2023 09:17, No significant change was found Ventricular Rate: 63 Atrial Rate: 63 OK Interval: 150 QRS Duration: 86 QT/QTc: 424/433 ms P-R-T Jefferson: 64 : 23 : 42 degrees documented in this encounter Miscellaneous Notes * Result Encounter Note - Cedric Downey III, MD - 09/06/2023 9:50 AM EST Call please EKG no significant changes were see no further testing will be done documented in this encounter Plan of Treatment Upcoming Encounters Date Type Department Care Team (Late st Contact Info) Description 09/21/2023 10:00 AM EST Home Visit [facility] [address] [place] [address] Martina Resendiz, RN [address] [place] [address] 09/25/2023 10:30 AM EST Imaging [facility] 2nd Floor Cardiology, [place] [address] [place] [place] [address] Gw, Excess Time Radiology [address] [place] [address] 11/22/2023 10:30 AM EDT Office Visit Cardiology, [facility] [address] [place] [address] [facility] [address] [place] [address] 12/13/2023 9:20 AM EDT Office Visit [facility] [address] [place] [address] Cedric Downey III, MD [address] [place] [address] 01/03/2024 12:20 PM EDT Office Visit [facility] [address] [place] [address] Cedric Downey III, MD [address] [place] [address] 07/04/2024 9:20 AM EST Office Visit Rheumatology [facility] [address] [place] [address] Yeyo Barrios MD [address] [place] [address] 09/06/2024 2:00 PM EST Office Visit Orthopaedics Spine Surgery, [facility] [address] [facility] [place] [address] Wyatt Ly MD [address] [place] [address] [place] [address] Scheduled Procedures Name Priority Associated Diagnoses Date/Ti [...] COPD 03/15/2024 03/15/2023 CKD HGB USE SMARTSET 50134 05/15/202405/15, 05/05/2023, 05/05/2023, Additional history exists CKD PHOS USE SMARTSET 91970 07/05/202406/21, 03/20/2023, 03/19/2023, Additional history exists DXA [...] D LEVEL ONCE IN A LIFETIME-USE SMARTSET# [id number] Completed 07/05/2023, 01/06/2020, 03/06/2018, Additional history exists [...] this encounter Medical Devices Implanted Type Area Human Resources Benefits Manager Device Identifier Shelf Expiration Date Model / Serial / Lot Dbx 5cc [id number] - [id number] - [id number] Implanted:Qty : 1 on 01/20/2021 by Wyatt Ly MD at [facility] Tissue - Human N/A: Spine Cervical [employer]OSKELETAL TRANSPLANT FND [id number] 08/22/2021 [id number] / [id number] / LOT NA 60mm Rods Implanted:Qty : 2 on 01/20/2021 by Wyatt Ly MD at [facility] N/A: Spine Cervical [employer] [id number] / / 10cc Mastergraft Biologic Matrix Ext Block Implanted:Qty : 1 on 03/15/2023 by Wyatt Ly MD at [facility] N/A: Spine Lumbar [employer] [id number] 11/18/2025 [id number] / [id number] / [id number] documented as of this encounter Procedures Procedure Name Priority Date/Time Associated Diagnosis Comments OK ECG ROUTINE ECG W/LEAST 12 LDS TRCG ONLY W/O I&R Routine 09/05/2023 11:30 AM EST Precordial chest pain documented in this encounter Results * EKG (09/05/2023 11:30 AM EST) 09/05/2023 11:3 0 AM EST Narrative Procedure Note Efren Sheppard, DO - 09/05/2023 11:30 AM EST REASON FOR STUDY: PRECORDIAL PAIN CONCLUSIONS: Normal sinus rhythm Cannot rule out Anterior infarct , age undetermined Abnormal ECG When compared with ECG of 05-JUL-2023 09:17, No significant change was found Ventricular Rate: 63 Atrial Rate: 63 OK Interval: 150 QRS Duration: 86 QT/QTc: 424/433 ms P-R-T Jefferson: 64 : 23 : 42 degrees Cedric Downey III, MD EKG [facility] documented in this encounter Visit Diagnoses Diagnosis Jaw pain- Primary COPD, group B, by GOLD 2017 classification (HCC) Major depressive disorder, recurrent episode, in partial remission (HCC) Major depressive disorder, recurrent episode, in partial or unspecified remission Hypertensive heart and kidney disease without heart failure and with stage 3a chronic kidney disease (HCC) Migraine without status migrainosus, not intractable, unspecified migraine type ARVIND (generalized anxiety disorder) Generalized anxiety disorder History of MD (myocardial infarction) Old myocardial infarction Age-related osteoporosis without current pathological fracture Senile osteoporosis Dyslipidemia, goal LDL below 70 Other and unspecified hyperlipidemia TMJ pain dysfunction syndrome Other specified temporomandibular joint disorders Precordial chest pain Precordial pain documented in this encounter Advance Directives Latest [...] Directives occurred with: Not Discussed Care Teams Tieing Machine Operator Relationship Specialty Start Date End Date Cedric Downey III, MD [address] [place] [address] PCP - General Family Medicine 10/04/19 documented as of this encounter
--- OUTSIDE RECORDS SUMMARY | 2023-11-08 10:23 | External Medical Summary | Summary of Care ---
Author Name Unknown Organization [facility] Address [address] [place] [address] Phone [phone] Care Team Providers Care Coverstitch Elastic Attacher Name Role Phone Shayan PAGAN MD, Cedric Estes Primary Care Provider [phone] Reason for Visit * Reason Comments [facility]: Maintenance Encounter Details Date Type Department Care Team (Late st Contact Info) Description 09/21/2023 10:00 AM EST Home Visit [facility], [facility] [address] [employer] [address] [place] [address] Martina Resendiz, RN [address] [employer] [place] [address] Allergies Active Allergy Reactions Criticality Noted Date Comments Varenicline 12/11/2014 nausea Corticosteroids Other (Please comment) Medium 12/27/2013 Hyper, Mental Status Changes on oral steroids Dm-Apap-Cpm Anaphylaxis,Other (Please comment) High 12/27/2013 Contact dermatitis Ibuprofen Other (Please comment) Low 12/27/2013 Affects acid reflux Iodinated Contrast Media Hives 10/08/2007 Penicillins 10/09/2007 Rash documented as of this encounter (statuses as of 09/21/2023) Medications Medication Sig Dispensed Refills Start Date [...] Hour (toPROL XL)Indications:Coron zeenat artery disease involving [place] coronary artery of [place] heart without angina pectoris Take 0.5 Tablets [...] 6 hours as needed for Anxiety. 0 Active documented as of this encounter (statuses as of 09/21/2023) Active Problems Problem Noted Date Diagnosed Date Migraine without status migrainosus, not intract able 04/25/2023 Last Assessment & Plan: Not needed Emgality for several months Major depressive disorder, r ecurrent episode, in partial remission 04/25/2023 Last Assessment & Plan: Continue with zoloft History of ID (myocardial infarction) 04/25/2023 Syncope 04/25/2023 Last Assessment [...] as of this encounter (statuses as of 09/21/2023) Resolved Problems Problem Noted Date Diagnosed Date [...] fx right #2,3,4,5 (CT done at [facility]) MEDICATION USE AGREEMENT 12/11/201408/2017 Overview: Started [...] Having left sciatic sx's - followed by [facility] documented as of this encounter (statuses as of 09/21/2023) Immunizations Name Administration Dates Next Due COVID-19 mRNA, LNP-s, No Pre serve, 2-Dose Series ([employer]) 12/24/2021,05/21/2021,11/04/2020,10/14 Covid-19, Mrna, Lnp-s, Pf, B ivalent, [...] Sign Reading Time Taken Comments Blood Pressure 154/68 09/21/2023 10:30 AM EST Pulse 84 09/21/2023 10:30 AM EST Temperature 37.2 C (98.9 F) 09/21/2023 10:[address] Respiratory Rate 18 09/21/2023 10:30 AM EST Oxygen Saturation 97% 09/21/2023 10:30 AM EST Inhaled Oxygen Concentration - - Weight 64.2 kg (141 lb 8 oz) 09/21/2023 10:30 AM EST Height - - Body Mass Index 28.56 04/17/2023 9:42 AM EDT documented in this [...] as of this encounter Progress Notes * Martina Resendiz RN - 09/21/2023 9:45 AM EST Images from the original note were not included. [facility] [employer] [facility] Visit Date: 09/21/2023 Time: 9:45 AM Name: Sandy Fan : 1950 Current Concerns: Pt seen for return RNCM visit States she has been stressed out about her mother who has dementia and is getting worse Has to help her mother who lives with her brother who has Autism. She states she still gets pains in her chest daily that is related to anxiety and has been taking hydroxyzine and states it does help Breathing has been at baseline Wts have been stable. Lungs clear bilaterally Continues to have high bps but has been checking prior to taking her morning meds Advised to try and take bp 1-2 hours after taking her morning bp meds No increased LE edema Physical Exam: BP 154/68 | Pulse 84 | Temp 37.2 C (98.9 F) | Resp 18 | Wt 64.2 kg (141 lb 8 oz) | SpO2 97% | BMI 28.56 kg/m | BSA 1.63 m Pain 0 Physical Exam Constitutional: General: She is not in acute distress. Cardiovascular: Rate and Rhythm: Normal rate and regular rhythm. Pulses: Normal pulses. Heart sounds: Normal heart sounds. Pulmonary: Effort: Pulmonary effort is normal. Breath sounds: Normal breath sounds. Abdominal: General: Bowel sounds are normal. Palpations: Abdomen is soft. Musculoskeletal: Right lower leg: Edema (trace) present. Left lower leg: Edema (trace) present. Skin: General: Skin is warm and dry. Neurological: Mental Status: She is alert. Problems/Symptoms: Review of Systems Constitutional: Negative. HENT: Negative. Eyes: Negative. Respiratory: Positive for shortness of breath (JANE - at baseline). Cardiovascular: Positive for leg swelling. Gastrointestinal: Negative. Genitourinary: Negative. Musculoskeletal: Positive for arthralgias and back pain. Skin: Negative. Neurological: Negative. Psychiatric/Behavioral: Negative. Medication Reconciliation: (See medication list) Does patient take medications as ordered: Yes Patient Well Being: PHQ2/9: No questionnaires available. No change in living situation [facility] Completed this Visit: No. Routine visit Advanced Care Planning: No documentation, acp on file. Patient's Goals of Care: Stay out of hospital Get stronger Walk without walker more Reinforcement/Education: Educated on home safety: Create a fall proof home Clear floors of clutter, loose wires, throw rugs, and cords. Make sure halls, stairways, and entrances are well lit. Install a nightlight in your bedroom, hallway and bathroom. Install grab bars or handrails in the bathroom and on stairs. Use a non-skid tub/shower mat. Avoid climbing on a chair; instead use a step stool with a high handrail. Keep sidewalks and steps in good repair Keep steps and sidewalks free of snow and ice. Using aids to support and prevent falls If you have poor balance or have fallen in the past, consider additional support such as a cane or walker. Use a cane with good support and that is the proper length for you. Use a walker if a cane doesnt provide enough support. Avoid medications that increase the risk of falling by causing dizziness, change in sensation or slowed reflexes. Certain medicines may cause falls - blood pressure pills, heart medicines, water pills, or sleepingpills. Be sure to understand each medicine that you are taking and any side effects that may occur. Improve your balance and flexibility with muscle strengthening exercises. Ask your health care provider for some exercises that will be right for you. Reviewed HF symptom monitoring: -Weigh self daily in am, post-void and record -Do not add salt to food, avoid foods high in sodium -Limit fluids to 2 liters per day -Report the following: ->2 lb weight gain in one day or 5 lbs in a week to PCP -increased edema in feet, abdomen or hands -increased SOB and cough, especially if at night -increased fatigue or vertigo Reinforced safety education and fall prevention. and Reinforced medication regimen. Timing., Dosing., and Purspose. Treatment/Plan: Continue meds as prescribed/reviewed Fall precautions - use roller walker at all times Life Alert on at all times Daily bp, pulse ox, and weight monitoring via [facility] F/u with cardiology Home Interventions Provided: Home Intervention: Other; evaluation Reinforced current Plan of Care, including self-management and medication regimen Patient's 'Red Flags': Feeling faint or dizzy Wt gain of 3 lbs in 24 hrs or 5 lbs in one week Increased SOB Patient Needs to Remember: Call [facility] at with any new or worsening health concerns or problems, red flag symptoms. Referrals Needed: Other none Follow Up: Is there cellular connectivity/connectivity in the home? Yes Does the patient have internet in the home? Yes Patient encouraged to call the intake phone number for all urgent but not emergent issues. Is the patient new to [facility] within the last 30 days? No, Assess appropriateness for upcoming telehealth visits. Cancel telehealth visits & schedule home visit with care steamship agent(s)as indicated. Provider is in agreement with Plan of Care: Yes Scheduled to follow up with patient in one month. Martina Resendiz RN 09/21/2023 9:45 AM documented in this encounter Plan of Treatment Upcoming Encounters Date Type Department Care Team (Late st Contact Info) Description 09/25/2023 10:30 AM EST [facility] [address] [address] Gw, Excess Time Radiology [address] [address] 10/31/2023 10:00 AM EDT Home Visit [facility], [facility] [address] [place] [address] Martina Resendiz RN [address] [place] [address] 11/22/2023 10:30 AM EDT Office Visit Cardiology, [facility] [address] [place] [address] Edward Oliver, PA-C [address] [place] [address] 12/13/2023 9:20 AM EDT Office Visit [facility] [place] [address] [place] [address] Cedric Downey III, MD [address] [place] [address] 01/03/2024 12:20 PM EDT Office Visit [facility] [address] [place] [address] Cedric Downey III, MD [address] [place] [address] 07/04/2024 9:20 AM EST Office Visit Rheumatology [facility] [address] [facility] [place] [address] Yeyo Barrios MD [address] [employer] [place] [address] 09/06/2024 2:00 PM EST [facility] 132 [facility] [place] [address] Wyatt Ly MD [address] [place] [address] [place] [id number] Scheduled Procedures Name Priority Associated Diagnoses Date/Ti [...] COPD 03/15/2024 03/15/2023 CKD HGB USE SMARTSET 42430 05/15/202405/15, 05/05/2023, 05/05/2023, Additional history exists CKD PHOS USE SMARTSET 67970 07/05/202406/21, 03/20/2023, 03/19/2023, Additional history exists DXA Scan 07/03/2025 07/03/2023, 06/21, 06/21/2021, Additional history exists Lipid Panel 05/15/2028 05/15/2023, 03/02/2022, 06/02/2020, Additional history exists DTaP,Tdap,and Td Vaccines (4 - Td or Tdap) 04/27/2032 04/27/2022, 12/01/2011, 12/04/1999 Zoster Vaccines Completed 04/23/2020, 02/18, 03/25/2015 Pneumococcal Vaccine: 65+ Years Completed 05/25/2020, 07/04/2017, 12/08/2015, Additional history exists Influenza Vaccine (FLU shot) Completed , 05/05/2022, 04/21/2021, Additional history exists VITAMIN D LEVEL ONCE IN A LIFETIME-USE SMARTSET# 89557 Completed 07/05/2023, 01/06/2020, 03/06/2018, Additional history exists [...] this encounter Medical Devices Implanted Type Area Hvac Mechanic Device Identifier Shelf Expiration Date Model / Serial / Lot Dbx 5cc [id number] - [id number] - [id number] Implanted:Qty : 1 on 01/20/2021 by Wyatt Ly MD at OR [facility] Tissue - Human N/A: Spine Cervical [employer] TRANSPL[employer] FND [id number] 08/22/2021 [id number] / [id number] / LOT NA 60mm Rods Implanted:Qty : 2 on 01/20/2021 by Wyatt Ly MD at OR [facility] N/A: Spine Cervical [employer] 1020-64-0 60 / / 10cc [employer] Biologic Matrix Ext Block Implanted:Qty : 1 on 03/15/2023 by Wyatt Ly MD at OR [facility] N/A: Spine Lumbar [employer] Jaret Hernandez [id number] 11/18/2025 [id number] / [id number] / [id number] documented as of this encounter Advance Directives [...] Directives occurred with: Not Discussed Care Teams Coverstitch Elastic Attacher Relationship Specialty Start Date End Date Cedric Downey III, MD [address] [place] [address] PCP - General Family Medicine 10/04/19 documented as of this encounter
--- OUTSIDE RECORDS SUMMARY | 2023-11-08 10:23 | External Medical Summary | Summary of Care ---
Author Name Unknown Organization [facility] Address [address] [place] [address] Phone [phone] Care Team Providers Care Locker Operator Name Role Phone Shayan PAGAN MD, Cedric Estes Primary Care Provider [phone] Reason for Visit * Reason Onset Date Comments [facility]: Maintenance 09/16/2023 Encounter Details Date Type Department Care Team (Late st Contact Info) Description 09/16/2023 1:00 PM EST Scheduled Telephone [facility], [facility] [address] [place] [address] [facility], Nurse [facility] [address] [place] [address] Allergies Active Allergy Reactions Criticality Noted Date Comments Varenicline 12/11/2014 nausea Corticosteroids Other (Please comment) Medium 12/27/2013 Hyper, Mental Status Changes on oral steroids Dm-Apap-Cpm Anaphylaxis,Other (Please comment) High 12/27/2013 Contact dermatitis Ibuprofen Other (Please comment) Low 12/27/2013 Affects acid reflux Iodinated Contrast Media Hives 10/08/2007 Penicillins 10/09/2007 Rash documented as of this encounter (statuses as of 09/16/2023) Medications Medication Sig Dispensed Refills Start Date [...] Hour (toPROL XL)Indications: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 Take 0.5 Tablets [...] as of this encounter (statuses as of 09/16/2023) Active Problems Problem Noted Date Diagnosed Date Migraine without status migrainosus, not intract able 04/25/2023 Last Assessment & Plan: Not needed Emgality for several months Major depressive disorder, r ecurrent episode, in partial remission 04/25/2023 Last Assessment & Plan: Continue with zoloft History of MA (myocardial infarction) 04/25/2023 Syncope 04/25/2023 Last Assessment [...] as of this encounter (statuses as of 09/16/2023) Resolved Problems Problem Noted Date Diagnosed Date [...] non-displaced fx right #2,3,4,5 (CT done at [facility]) MEDICATION USE AGREEMENT 12/11/201408/2017 Overview: Started [...] Having left sciatic sx's - followed by [facility] documented as of this encounter (statuses as of 09/16/2023) Immunizations Name Administration Dates Next Due COVID-19 mRNA, LNP-s, No Pre serve, 2-Dose Series ([employer]) 12/24/2021,05/21/2021,11/04/2020,10/14 Covid-19, Mrna, Lnp-s, Pf, B ivalent, [...] encounter Miscellaneous Notes * Telephone Encounter - Martina Resendiz RN - 09/16/2023 4:05 PM EST Images from the original note were not included. Phone call placed for [facility] trigger Weight has been fluctuating up No answer or either cell or landline numbers. Was not able to leave a message either. Will continue to monitor. documented in this encounter Plan of Treatment Upcoming Encounters Date Type Department Care Team (Late st Contact Info) Description 09/21/2023 10:00 AM EST Home Visit [facility] [address] [address] Martina Resendiz RN [address] [place] [address] 09/25/2023 10:30 AM EST Imaging [facility] 2nd Floor Cardiology, [place] [address] [address] Gw, Excess Time Radiology [address] [place] [address] 11/22/2023 10:30 AM EDT Office Visit Cardiology, [facility] [address] [place] [address] Edward Oliver PA-C [address] [place] [address] 12/13/2023 9:20 AM EDT Office Visit [facility] [address] [facility] [place] [address] Cedric Downey III, MD [address] [facility] [place] [address] 01/03/2024 12:20 PM EDT Office Visit [facility] [address] [facility] [place] [address] Cedric Downey III, MD [address] [facility] [place] [address] 07/04/2024 9:20 AM EST Office Visit Rheumatology [place] [address] [facility] [place] [address] Yeyo Barrios MD [facility] [facility] [place] [address] 09/06/2024 2:00 PM EST Office Visit Orthopaedics Spine Surgery, [facility] [address] [place] [address] Wyatt Ly MD [address] [place] [address] [place] [address] Scheduled Procedures Name Priority Associated Diagnoses [...] COPD 03/15/2024 03/15/2023 CKD HGB USE SMARTSET 67898 05/15/202405/15, 05/05/2023, 05/05/2023, Additional history exists CKD PHOS USE SMARTSET 90002 07/05/202406/21, 03/20/2023, 03/19/2023, Additional history exists DXA [...] D LEVEL ONCE IN A LIFETIME-USE SMARTSET# 30612 Completed 07/05/2023, 01/06/2020, 03/06/2018, Additional history exists [...] this encounter Medical Devices Implanted Type Area Marine Mammal Trainer Device Identifier Shelf Expiration Date Model / Serial / Lot Dbx 5cc [id number] - [id number] - [id number] Implanted:Qty : 1 on 01/20/2021 by Wyatt Ly MD at OR [facility] Tissue - Human N/A: Spine Cervical [employer]LET[employer]PL[employer] FND [id number] 08/22/2021 [id number] / [id number] / LOT NA 60mm Rods Implanted:Qty : 2 on 01/20/2021 by Wyatt Ly MD at OR [facility] N/A: Spine Cervical [employer] 1020-64-0 60 / / 10cc [employer] Biologic Matrix Ext Block Implanted:Qty : 1 on 03/15/2023 by Wyatt Ly MD at OR [facility] N/A: Spine Lumbar [employer] [id number] 11/18/2025 [id number] / [id number] / [id number] documented as of this encounter Advance Directives [...] Directives occurred with: Not Discussed Care Teams Locker Operator Relationship Specialty Start Date End Date Cedric Downey III, MD [address] [facility] [place] [address] PCP - General Family Medicine 10/04/19 documented as of this encounter
--- OUTSIDE RECORDS SUMMARY | 2023-11-08 10:23 | External Medical Summary | Summary of Care ---
Author Name Unknown Organization [facility] Address [address] [place] [address] Phone [phone] Care Team Providers Care Automotive General Sales Manager Name Role Phone Shayan PAGAN MD, Cedric Estes Primary Care Provider [phone] Reason for Visit * Reason Comments Follow Up S/P 03/15/2023 L4-5, L5-S1 partial laminectomy, medial facetectomy and foraminotomy with decompression of L4, L5, S1 nerve roots respectively 03/15/2023s/p C3-4, C4-5, C5-6, C6-7 laminectomy C3-4, C4-5, C5-6, C6-7, C7-T1 instrumented fusion 01/20/21. Encounter Details Date Type Department Care Team (Late st Contact Info) Description 09/08/2023 1:15 PM EST [facility] [address] [facility] [place] [id number] Wyatt Ly MD 310 [facility] [address] [facility] [place] [address] Encounter for follow-up examination after completed treatment for conditions other than malignant neoplasm*; S/P lumbar laminectomy; S/P cervical spinal fusion Allergies Active Allergy Reactions Criticality Noted Date Comments Varenicline 12/11/2014 nausea Corticosteroids Other (Please comment) Medium 12/27/2013 Hyper, Mental Status Changes on oral steroids Dm-Apap-Cpm Anaphylaxis,Other (Please comment) High 12/27/2013 Contact dermatitis Ibuprofen Other (Please comment) Low 12/27/2013 Affects acid reflux Iodinated Contrast Media Hives 10/08/2007 Penicillins 10/09/2007 Rash documented as of this encounter (statuses as of 09/08/2023) Medications Medication Sig Dispensed Refills Start Date [...] Hour (toPROL XL)Indications:Coron zeenat artery disease involving [place] coronary artery of [place] heart without angina pectoris Take 0.5 Tablets [...] as of this encounter (statuses as of 09/08/2023) Active Problems Problem Noted Date Diagnosed Date Migraine without status migrainosus, not intract able 04/25/2023 Last Assessment & Plan: Not needed Emgality for several months Major depressive disorder, r ecurrent episode, in partial remission 04/25/2023 Last Assessment & Plan: Continue with zoloft History of [place] (myocardial infarction) 04/25/2023 Syncope 04/25/2023 Last Assessment [...] as of this encounter (statuses as of 09/08/2023) Resolved Problems Problem Noted Date Diagnosed Date [...] fx right #2,3,4,5 (CT done at [facility]) MEDICATION USE AGREEMENT 12/11/201408/2017 Overview: Soheila [...] Having left sciatic sx's - followed by [facility] documented as of this encounter (statuses as of 09/08/2023) Immunizations Name Administration Dates Next Due COVID-19 [...] as of this encounter Progress Notes * Wyatt Ly MD - 09/08/2023 12:45 PM EST Date of service: 09/08/2023 Sandy Fan is a 73 year old female presents for a follow up visit. She is 6 months post lumbarfusion surgery and 2 and half years post cervical laminectomy and fusion surgery. She reports relief of symptoms. At times she does have some balance issues but no other new complaints. Prior history: S/P 03/15/2023 L4-5, L5-S1 partial laminectomy, medial facetectomy and foraminotomy with decompression of L4, L5, S1 nerve roots respectively s/p C3-4, C4-5, C5-6, C6-7 laminectomy C3-4, C4-5, C5-6, C6-7, C7-T1 instrumented fusion 01/20/21. Allergies: Dm-apap-cpm, Corticosteroids, Chantix [varenicline], Iodinated contrast media, Penicillin [penicillins], and Ibuprofen The past medical, surgical, medication, family, social history was reviewed and has been documentedelsewhere in the chart ROS: Negative except as outlined in HPI Vitals: There were no vitals taken for this visit. There is no height or weight on file to calculate BMI. Physical Exam: General: alert, healthy and no distress Constitutional: The general appearance appears normal. Respiratory: Breathing is nonlabored, thoracic. No use of accessory muscles. Cardiovascular system: Vascular status grossly preserved in the extremities Spine evaluation cervical, thoracic and lumbar: Overlying skin unremarkable. No paraspinal swellingin the paraspinal and periscapular region. No obvious deformity. Surgical incision healed well Neurological examination: Gross motor power Upper extremities - Bilateral shoulder abductors, elbow flexors, triceps, wrist flexors and extensors and intrinsic muscles of the hand 5/5. Lower extremities - Bilateral hip flexors, knee extensors, ankle dorsiflexors, ankle plantar flexors, EHL/EDL, FHL/FDL 5/5. The deep tendon reflexes - Bilateral Biceps, triceps, brachioradialis, Patellar tendon, Achilles tendon are 2+. Sensation are grossly preserved bilaterally in the upper extremities. Sensation are grossly preserved bilaterally in the lower extremities. Radiological imaging: I independently reviewed the relevant radiological imaging X-rays of the cervical spine including dynamic view show stable posterior cervical fusion constructwith appropriately placed implants. Spinal alignment is well maintained. X-rays of the lumbar spine including dynamic view show evidence of a stable lumbar fusion constructwith appropriately placed implants. Spinal alignment is maintained. 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 No new issues. Some balance issues which have been chronic. Patient otherwise active. Continue evaluation treatment of osteoporosis as per the primary care. Additional recommendations: Activity modification as tolerated Follow up: 1 year for reassessment, Patient to reach out earlier if any worsening of symptoms. The patient expressed understanding and agreement to the plan. Complexity of decision making: High I spent 25 minutes on 09/08/2023 in preparation, delivery and documentation of the care provided to the patient, excluding any time spent on the performance of the procedure are separately billable service. Wyatt Ly MD This chart was completed in part utilizing [employer] Speech Voice Recognition Software. Grammatical errors, random word insertions, prounoun errors and incomplete sentences are an occasional consequence of this system due to software limitations, ambient noise, and hardware issues. Any formal questions or concerns about the content, text, or information contained within the body of this dictation should be directly addressed to the provider for clarification. documented in this encounter Nursing Notes * Carmita Gonzalez LPN - 09/08/2023 12:40 PM EST S/P 03/15/2023 L4-5, L5-S1 partial laminectomy, medial facetectomy and foraminotomy with decompression of L4, L5, S1 nerve roots respectively Patient notes has been walki g s/p C3-4, C4-5, C5-6, C6-7 laminectomy C3-4, C4-5, C5-6, C6-7, C7-T1 instrumented fusion 01/20/21. Patient notes is able to do Adl's with out issue. documented in this encounter Plan of Treatment Upcoming Encounters Date Type Department Care Team (Late st Contact Info) Description 09/21/2023 10:00 AM EST Home Visit [place] [address] [place] [place] [address] Martina Resendiz, RN [address] [place] [address] 09/25/2023 10:30 AM EST Imaging [facility] 2nd Floor Cardiology, [place] [address] [place] [address] Gw, Excess Time Radiology [address] [place] [address] 11/22/2023 10:30 AM EDT Office Visit Cardiology, [facility] [address] [place] [address] Edward Oliver PA-C [address] [place] [address] 12/13/2023 9:20 AM EDT Office Visit [facility] 200 [facility] [place] [address] Cedric Downey III, MD 200 [facility] [place] [address] 01/03/2024 12:20 PM EDT Office Visit [facility] 200 [facility] [place] [address] Cedric Downey III, MD 200 [facility] [place] [address] 07/04/2024 9:20 AM EST Office Visit Rheumatology [place] [address]250 [facility] [place] [address] Yeyo Barrios MD [facility] [place] [address] 09/06/2024 2:00 PM EST Office Visit Orthopaedics Spine Surgery, [facility] [address] [place] [address] Wyatt Ly MD [address] [place] [address] [place] [address] Pending Results Name Type Priority Associated Diagnoses Date /Time XR C SPINE 4-5 VIEWS Medical Imaging Routine S/P cervical spinal fusion 09/08/2023 12:53 PM EST XR L SPINE COMPLETE Medical Imaging Routine S/P lumbar laminectomy 09/08/2023 12:53 PM EST Scheduled Procedures Name Priority Associated Diagnoses Date/Ti [...] COPD 03/15/2024 03/15/2023 CKD HGB USE SMARTSET 57109 05/15/202405/15, 05/05/2023, 05/05/2023, Additional history exists CKD PHOS USE SMARTSET 65755 07/05/202406/21, 03/20/2023, 03/19/2023, Additional history exists DXA Scan 07/03/2025 07/03/2023, 1108/2020, 02/11/2019, Additional history exists Lipid Panel 05/15/2028 05/15/2023, 030 02/2022, 06/02/2020, Additional history exists DTaP,Tdap,and Td Vaccines (4 - Td or Tdap) 04/27/2032 04/27/2022, 12/01/2011, 12/04/1999 Zoster Vaccines Completed 04/23/2020, 02/18, 03/25/2015 Pneumococcal Vaccine: 65+ Years Completed 05/25/2020, 07/04/2017, 12/08/2015, Additional history exists Influenza Vaccine (FLU shot) Completed , 05/05/2022, 04/21/2021, Additional history exists VITAMIN D LEVEL ONCE IN A LIFETIME-USE SMARTSET# 54275 Completed 07/05/2023, 01/06/2020, 03/06/2018, Additional history exists [...] this encounter Medical Devices Implanted Type Area Calender Let Off Helper Device Identifier Shelf Expiration Date Model / Serial / Lot Dbx 5cc [id number] - [id number] - [id number] Implanted:Qty : 1 on 01/20/2021 by Wyatt Ly MD at OR [facility] Tissue - Human N/A: Spine Cervical MUSCULOSKELETAL TRANSPLANT FND [id number] 08/22/2021 [id number] / [id number] / LOT NA 60mm Rods Implanted:Qty : 2 on 01/20/2021 by Wyatt Ly MD at OR [facility] N/A: Spine Cervical [employer] 1020-64-0 60 / / 10cc Mastergraft Biologic Matrix Ext Block Implanted:Qty : 1 on 03/15/2023 by Wyatt Ly MD at OR [facility] N/A: Spine Lumbar Medtronic Sofamor Danek [id number] 11/18/2025 [id number] / [id number] / [id number] documented as of this encounter Visit Diagnoses Diagnosis Encounter for follow-up examination after completed treatment for conditions other than malignant neoplasm- Primary S/P lumbar laminectomy Other postprocedural status S/P cervical spinal fusion Arthrodesis status documented in this encounter Advance Directives Latest [...] Directives occurred with: Not Discussed Care Teams Automotive General Sales Manager Relationship Specialty Start Date End Date Cedric Downey III, MD 200 [facility] [place] [address] PCP - General Family Medicine 10/04/19 documented as of this encounter
--- OUTSIDE RECORDS SUMMARY | 2023-11-08 10:24 | External Medical Summary | Summary of Care ---
Author Name Unknown Organization [facility] Address [address] [place] [address] Phone [phone] Care Team Providers Care Third Grade Teacher Name Role Phone Shayan PAGAN MD, Cedric Estes Primary Care Provider [phone] Reason for Visit * Reason Comments eRx-Medication Refill Encounter Details Date Type Department Care Team (Late st Contact Info) Description 08/18/2023 Refill Family Practice [facility] [address] [place] [address] Cedric Downey III, MD [address] [place] [address] Allergies Active Allergy Reactions Criticality Noted Date Comments Varenicline 12/11/2014 nausea Corticosteroids Other (Please comment) Medium 12/27/2013 Hyper, Mental Status Changes on oral steroids Dm-Apap-Cpm Anaphylaxis,Other (Please comment) High 12/27/2013 Contact dermatitis Ibuprofen Other (Please comment) Low 12/27/2013 Affects acid reflux Iodinated Contrast Media Hives 10/08/2007 Penicillins 10/09/2007 Rash documented as of this encounter (statuses as of 08/21/2023) Medications Medication Sig Dispensed Refills Start Date [...] Every Month. 1 mL 5 11/08/2022 Active Ezetimibe 10 MG Oral Tablet (Zetia) TAKE [...] Hour (toPROL XL)Indications:Coron zeenat artery disease involving [place] coronary artery of [place]ai heart without angina pectoris Take 0.5 Tablets [...] chest pain 25 Tablet 5 07/05/2023 Active Additional Information Patient not taking.Reported on 07/18/2023 Sertraline HCl 100 MG Oral Tablet (Zoloft) TAKE 2 TABLETS BY MOUTH EVERY DAY 180 Tablet 3 2023 Active HYDROcodone-Acetamin ophen 5-325 MG Oral Tablet Take 1 Tablet by mouth every 6 hours as needed for Pain, Moderate or Pain, Severe. Max 2 per day 60 Tablet 0 08/16/2023 Active documented as of this encounter (statuses as of 08/21/2023) Active Problems Problem Noted Date Diagnosed Date [...] as of this encounter (statuses as of 08/21/2023) Resolved Problems Problem Noted Date Diagnosed Date [...] #2,3,4,5 (CT done at [facility]) MEDICATION USE AGREEMENT 12/11/201408/2017 Overview: Started wYu [...] as of this encounter (statuses as of 08/21/2023) Immunizations Name Administration Dates Next Due COVID-19 mRNA, LNP-s, No Pre serve, 2-Dose Series ([employer]) 12/24/2021,05/21/2021,11/04/2020,10/14 Covid-19, Mrna, Lnp-s, Pf, B ivalent, [...] encounter Miscellaneous Notes * Telephone Encounter - Lexus Rodriguez RPh - 08/21/2023 9:58 AM ESTRefused Prescriptions: Disp Refills Lisinopril 10 MG Oral Tablet (Prinivil) 90 Tab*1 Sig: TAKE 1 TABLET BY MOUTH EVERY DAY IN THE MORNINGRefused By: LEXUS RODRIGUEZeason for Refusal: Course of treatment complete documented in this encounter Plan of Treatment Upcoming Encounters Date Type Department Care Team (Late st Contact Info) Description 08/23/2023 10:00 AM EST Home Visit [facility] at [facility] [address] [place] [place] [address] Martina Resendiz RN [address] [place] [address] 09/08/2023 1:15 PM EST Office Visit Orthopaedics Spine Surgery, [facility] [place] [address] Wyatt Ly MD [address] [place] [address] [place] [address] 09/25/2023 10:30 AM EST Imaging [facility] 2nd Floor Cardiology, [place] 132 [facility] [place] [address] Gw, Excess Time Radiology 132 [facility] [place] [address] 11/22/2023 10:30 AM EDT Office Visit Cardiology, [facility] [address] [place] [address] Edward Oliver PA-C 132 [facility] [place] [address] 01/03/2024 12:20 PM EDT Office Visit Family Practice [facility] 200 [facility] [place] [address] Cedric Downey III, MD 200 [facility] [place] [address] 07/04/2024 9:20 AM EST Office Visit Rheumatology [place] [address] [employer] [place], [place] [address] Yeyo Barrios MD [facility] [employer] [place], [place] [address] Scheduled Procedures Name Priority Associated Diagnoses Date/Ti [...] COPD 03/15/2024 03/15/2023 CKD HGB USE SMARTSET 32008 05/15/202405/15, 05/05/2023, 05/05/2023, Additional history exists CKD PHOS USE SMARTSET 44166 07/05/202406/21, 03/20/2023, 03/19/2023, Additional history exists DXA [...] D LEVEL ONCE IN A LIFETIME-USE SMARTSET# 54878 Completed 07/05/2023, 01/06/2020, 03/06/2018, Additional history exists [...] this encounter Medical Devices Implanted Type Area Knitted Garment Finisher Device Identifier Shelf Expiration Date Model / Serial / Lot Dbx 5cc [id number] - [id number] - [id number] Implanted:Qty : 1 on 01/20/2021 by Wyatt Ly MD at OR [facility] Tissue - Human N/A: Spine Cervical MUSCULOSKELETAL TRANSPLANT FND [id number] 08/22/2021 [id number] / [id number] / LOT NA 60mm Rods Implanted:Qty : 2 on 01/20/2021 by Wyatt Ly MD at OR [facility] N/A: Spine Cervical [employer] 1020-64-0 60 / / 10cc Mastergraft Biologic Matrix Ext Block Implanted:Qty : 1 on 03/15/2023 by Wyatt Ly MD at OR [facility] N/A: Spine Lumbar Medtronic Sofamor Danek [id number] 11/18/2025 [id number] / [id number] / [id number] documented as of this encounter Advance Directives [...] Directives occurred with: Not Discussed Care Teams Third Grade Teacher Relationship Specialty Start Date End Date Cedric Downey III, MD 200 [facility] [place] [address] PCP - General Family Medicine 10/04/19 documented as of this encounter
--- OUTSIDE RECORDS SUMMARY | 2023-11-08 10:24 | External Medical Summary | Summary of Care ---
Author Name Unknown Organization [facility] Address [address] [place] [address] Phone [phone] Care Team Providers Care Oil Treater Name Role Phone Shayan PAGAN MD, Cedric Estes Primary Care Provider [phone] Reason for Visit * Reason Onset Date Comments Test Results 09/06/2023 Encounter Details Date Type Department Care Team (Late st Contact Info) Description 09/06/2023 Telephone Family Practice [facility] 200 [facility] [place] [address] Cedric Downey III, MD 200 [facility] [place] [address] Test Results Allergies Active Allergy Reactions Criticality Noted Date Comments Varenicline 12/11/2014 nausea Corticosteroids Other (Please comment) Medium 12/27/2013 Hyper, Mental Status Changes on oral steroids Dm-Apap-Cpm Anaphylaxis,Other (Please comment) High 12/27/2013 Contact dermatitis Ibuprofen Other (Please comment) Low 12/27/2013 Affects acid reflux Iodinated Contrast Media Hives 10/08/2007 Penicillins 10/09/2007 Rash documented as of this encounter (statuses as of 09/07/2023) Medications Medication Sig Dispensed Refills Start Date [...] Hour (toPROL XL)Indications:Coron zeenat artery disease involving [place] coronary artery of [place] heart without angina pectoris Take 0.5 Tablets [...] as of this encounter (statuses as of 09/07/2023) Active Problems Problem Noted Date Diagnosed Date Migraine without status migrainosus, not intract able 04/25/2023 Last Assessment & Plan: Not needed Emgality for several months Major depressive disorder, r ecurrent episode, in partial remission 04/25/2023 Last Assessment & Plan: Continue with zoloft History of [place] (myocardial infarction) 04/25/2023 Syncope 04/25/2023 Last Assessment [...] as of this encounter (statuses as of 09/07/2023) Resolved Problems Problem Noted Date Diagnosed Date [...] as of this encounter (statuses as of 09/07/2023) Immunizations Name Administration Dates Next Due COVID-19 mRNA, LNP-s, No Pre serve, 2-Dose Series ([employer]) 12/24/2021,05/21/2021,11/04/2020,10/14 Covid-19, Mrna, Lnp-s, Pf, B ivalent, [...] encounter Miscellaneous Notes * Telephone Encounter - Aruna Hill LPN - 09/07/2023 11:11 AM EST Patient aware and verbalized understanding * Telephone Encounter - Elisa Haskins LPN - 09/06/2023 1:49 PM EST Called mobile # listed for patient, not in service at this time. Called home # listed for patient- got voicemail for someone named Lizzy. I did not leave a message. Patient has not accessed her [employer] account since 2013. Please try to contact patient at a later time. * Telephone Encounter - Elisa Haskins LPN - 09/06/2023 1:46 PM EST ----- Message from Cedric Downey III, MD sent at 09/06/2023 9:50 AM EST ----- Call please EKG no significant changes were see no further testing will be done documented in this encounter Plan of Treatment Upcoming Encounters Date Type Department Care Team (Late st Contact Info) Description 09/08/2023 1:15 PM EST Office Visit Orthopaedics Spine Surgery, [facility] [address] [place] [address] Wyatt Ly MD [address] [place] [address] [place] [address] 09/21/2023 10:00 AM EST [facility] Visit [facility], [facility] [address] [place] [address] Martina Resendiz RN [address] [place] [address] 09/25/2023 10:30 AM EST Imaging [facility] 2nd Floor Cardiology, [place] [address] [place] [address] Gw, Excess Time Radiology [address] [place] [address] 11/22/2023 10:30 AM EDT Office Visit Cardiology, [facility] [address] [place] [address] Edward Oliver PA-C [address] [place] [address] 12/13/2023 9:20 AM EDT Office Visit [facility] [address] [place] [address] Cedric Downey III, MD [address] [facility] [place] [address] 01/03/2024 12:20 PM EDT Office Visit [facility] [address] [place] [address] Cedric Downey III, MD [address] [place] [address] 07/04/2024 9:20 AM EST Office Visit Rheumatology [facility] [address] [place], [place] [address] Yeyo Barrios MD [address] [place], [place] [address] Scheduled Procedures Name Priority Associated Diagnoses Date/Ti [...] COPD 03/15/2024 03/15/2023 CKD HGB USE SMARTSET 59975 05/15/202405/15, 05/05/2023, 05/05/2023, Additional history exists CKD PHOS USE SMARTSET 88097 07/05/202406/21, 03/20/2023, 03/19/2023, Additional history exists DXA [...] D LEVEL ONCE IN A LIFETIME-USE SMARTSET# 89198 Completed 07/05/2023, 01/06/2020, 03/06/2018, Additional history exists [...] this encounter Medical Devices Implanted Type Area Screw Supervisor Device Identifier Shelf Expiration Date Model / Serial / Lot Dbx 5cc [id number] - [id number] - [id number] Implanted:Qty : 1 on 01/20/2021 by Wyatt Ly MD at OR [facility] Tissue - Human N/A: Spine Cervical MUSCULOSKELETAL TRANSPLANT FND [id number] 08/22/2021 [id number] / [id number] / LOT NA 60mm Rods Implanted:Qty : 2 on 01/20/2021 by Wyatt Ly MD at OR [facility] N/A: Spine Cervical [employer] 1020-64-0 60 / / 10cc Mastergraft Biologic Matrix Ext Block Implanted:Qty : 1 on 03/15/2023 by Wyatt Ly MD at OR [facility] N/A: Spine Lumbar Medtronic Sofamor Danek [id number] 11/18/2025 [id number] / [id number] / [id number] documented as of this encounter Advance Directives [...] Directives occurred with: Not Discussed Care Teams Oil Treater Relationship Specialty Start Date End Date Cedric Downey III, MD 200 [facility] [place] [address] PCP - General Family Medicine 10/04/19 documented as of this encounter
--- OUTSIDE RECORDS SUMMARY | 2023-11-08 10:24 | External Medical Summary | Summary of Care ---
Author Name Unknown Organization [facility] Address [address] [place] [address] Phone [phone] Care Team Providers Care Attending Ambulatory Care Name Role Phone Shayan PAGAN MD, Cedric Estes Primary Care Provider [phone] Encounter Details Date Type Department Care Team (Late st Contact Info) Description 09/07/2023 Population Health External Data Unspecified Department Allergies Active Allergy Reactions Criticality Noted Date [...] Hour (toPROL XL)Indications:Coron zeenat artery disease involving [place] coronary artery of alut[place]q heart without angina pectoris Take 0.5 Tablets [...] & Plan: Continue with zoloft History of TX (myocardial infarction) 04/25/2023 Syncope 04/25/2023 Last Assessment [...] non-displaced fx right #2,3,4,5 (CT done at [facility]) MEDICATION USE AGREEMENT 12/11/201408/2017 Overview: [...] sciatic sx's - followed by [facility] documented as of this encounter (statuses as of 09/07/2023) Immunizations Name Administration Dates Next Due COVID-19 mRNA, LNP-s, No Pre serve, 2-Dose Series ([employer]) 12/24/2021,05/21/2021,11/04/2020,10/14 Covid-19, Mrna, Lnp-s, Pf, B ivalent, 30 Mcg, IM, 12 yrs and above ([employer]) 05/09/2022 PPD 10/25/2021 Pneumococcal Conjugate Vacc, 13 [...] No 03/15/2023 documented as of this encounter Plan of Treatment Upcoming Encounters Date Type Department Care Team (Late st Contact Info) Description 09/08/2023 1:15 PM EST Office Visit Orthopaedics Spine Surgery, [facility] [address] [place] [address] Wyatt Ly MD [address] [place] [address] [place] [address] 09/21/2023 10:00 AM EST [facility], [facility] [address] [address] Martina Resendiz RN [address] [place] [address] 09/25/2023 10:30 AM EST Imaging [facility] II 2nd Floor Cardiology, [place] [address] [address] Gw, Excess Time Radiology [address] [place] [address] 11/22/2023 10:30 AM EDT Office Visit Cardiology, [facility] [address] [address] Edward Oliver PA-C [address] [place] [address] 12/13/2023 9:20 AM EDT Office Visit [facility] [address] [facility] [place] [address] Cedric Downey III, MD [address] [facility] [place] [address] 01/03/2024 12:20 PM EDT Office Visit [facility] 200 [facility] [place] [address] Cedric Downey III, MD [address] [facility] [place] [address] 07/04/2024 9:20 AM EST Office Visit Rheumatology [place] [address] [employer] [place] [address] Yeyo Barrios MD [facility] [employer] [place] [address] Scheduled Procedures Name Priority Associated Diagnoses Date/Ti [...] COPD 03/15/2024 03/15/2023 CKD HGB USE SMARTSET 64780 05/15/202405/15, 05/05/2023, 05/05/2023, Additional history exists CKD PHOS USE SMARTSET 20288 07/05/202406/21, 03/20/2023, 03/19/2023, Additional history exists DXA [...] D LEVEL ONCE IN A LIFETIME-USE SMARTSET# 76921 Completed 07/05/2023, 01/06/2020, 03/06/2018, Additional history exists [...] this encounter Medical Devices Implanted Type Area Fisher Purse Seine Device Identifier Shelf Expiration Date Model / Serial / Lot Dbx 5cc [id number] - [id number] - [id number] Implanted:Qty : 1 on 01/20/2021 by Wyatt Ly MD at OR [facility] Tissue - Human N/A: Spine Cervical MUSCULOSKELETAL TRANSPLANT FND [id number] 08/22/2021 [id number] / [id number] / LOT NA 60mm Rods Implanted:Qty : 2 on 01/20/2021 by Wyatt Ly MD at OR [facility] N/A: Spine Cervical [employer] 1020-64-0 60 / / 10cc Mastergraft Biologic Matrix Ext Block Implanted:Qty : 1 on 03/15/2023 by Wyatt Ly MD at OR [facility] N/A: Spine Lumbar Medtronic Sofamor Dbek [id number] 11/18/2025 [id number] / [id number] / [id number] documented as of this encounter Advance Directives [...] Directives occurred with: Not Discussed Care Teams Attending Ambulatory Care Relationship Specialty Start Date End Date Cedric Downey III, MD [address] [place] [address] PCP - General Family Medicine 10/04/19 documented as of this encounter
--- OUTSIDE RECORDS SUMMARY | 2023-11-08 10:24 | External Medical Summary | Summary of Care ---
Author Name Unknown Organization [facility] Address [address] [place] [address] Phone [phone] Care Team Providers Care Coffee Plantation Worker Name Role Phone Shayan PAGAN MD, Cedric Estes Primary Care Provider [phone] Reason for Visit * Reason Onset Date Comments Medication Refill 08/15/2023 Encounter Details Date Type Department Care Team (Late st Contact Info) Description 08/15/2023 Refill Family Practice [facility] [place] [address] [facility] [place] [address] Cedric Downey III, MD [address] [facility] [place] [address] Allergies Active Allergy Reactions Criticality Noted Date Comments Varenicline 12/11/2014 nausea Corticosteroids Other (Please comment) Medium 12/27/2013 Hyper, Mental Status Changes on oral steroids Dm-Apap-Cpm Anaphylaxis,Other (Please comment) High 12/27/2013 Contact dermatitis Ibuprofen Other (Please comment) Low 12/27/2013 Affects acid reflux Iodinated Contrast Media Hives 10/08/2007 Penicillins 10/09/2007 Rash documented as of this encounter (statuses as of 08/16/2023) Medications Medication Sig Dispensed Refills Start Date [...] (toPROL XL)Indications:Juan Manuel nary artery disease involving [place] coronary artery of [place] heart without angina pectoris Take 0.5 Tablets [...] per day 60 Tablet 0 08/16/2023 Active HYDROcodone-Acetami nophen 5-325 MG Oral Tablet Take 1 Tablet by mouth every 6 hours as needed for Pain, Moderate or Pain, Severe. Max 2 per day 60 Tablet 0 2023 08/15/20 Discontinu ed(Refill) documented as of this encounter (statuses as of 08/16/2023) Active Problems Problem Noted Date Diagnosed Date [...] as of this encounter (statuses as of 08/16/2023) Resolved Problems Problem Noted Date Diagnosed Date [...] non-displaced fx right #2,3,4,5 (CT done at [facility]) MEDICATION USE AGREEMENT 12/11/201408/2017 Overview: [...] as of this encounter (statuses as of 08/16/2023) Immunizations Name Administration Dates Next Due COVID-19 mRNA, LNP-s, No Pre serve, 2-Dose Series ([employer]) 12/24/2021,05/21/2021,11/04/2020,10/14 Covid-19, Mrna, Lnp-s, Pf, B ivalent, [...] Telephone Encounter - Zion Leon DO - 08/16/2023 2:21 PM ESTSigned Prescriptions: Disp Refills HYDROcodone-Acetaminophen 5-325 MG Oral Ta*60 Tab*0 Sig: Take 1 Tablet by mouth every 6 hours as needed for Pain, Moderate or Pain, Severe. Max 2 per day Authorizing Provider: ZION LEON * Telephone Encounter - Tanika Mistry [facility] - 08/16/2023 11:03 AM EST Pending Prescriptions: Disp Refills HYDROcodone-Acetaminophen 5-325 MG Oral Ta*60 Tab*0 Sig: Take 1 Tablet by mouth every 6 hours as needed for Pain, Moderate or Pain, Severe. Max 2 per day * Telephone Encounter - Tanika Mistry RPh - 08/16/2023 11:03 AM EST I have reviewed the patients controlled substance dispensing history in the Prescription Drug Monitoring Program in compliance with the [facility] regulations before prescribing a controlled substance. PDMP checked on 08/16/2023. Pending Prescriptions: Disp Refills HYDROcodone-Acetaminophen 5-325 MG Oral T*60 Tab*0 Sig: Take 1 Tablet by mouth every 6 hours as needed for Pain, Moderate or Pain, Severe. Max 2 per day Last Visit: 07/05/2023 (in office), Visit date not found (telemedicine) Next Visit: 01/03/2024 Date medication was last filled: 07/19 Date medication is due for refill: 08/17 Pharmacy: [id number] Is this request for a controlled substance? Yes and Urine Drug Screen Not completed Toxicology results: No results found. However, due to the size of the patient record, not all encounters were searched.Please check Results Review for a complete set of results. Please approve if appropriate. Thank you, Tanika Mistry PharmD. Clinical Pharmacist [facility]acy Services (CCPS) (formerly Telepharmacy) 08/16/2023, 11:03 AM * Telephone Encounter - Romero Sweeney PHARM Tech - 08/15/2023 1:26 PM EST Did you pend patient's preferred pharmacy and medication before forwarding?yes Pharmacy: [id number] [id number] [facility] Pending Prescriptions: Disp Refills HYDROcodone-Acetaminophen 5-325 MG Oral T*60 Tab*0 Sig: Take 1 Tablet by mouth every 6 hours as needed for Pain, Moderate or Pain, Severe. Max 2 per day Last Visit: 07/05/2023 (in office), Visit date not found (telemedicine) Next Visit: 01/03/2024 If no future appointments scheduled, and last appointment is greater than a year ago, please schedule patient for a follow-up appointment Last date the medication was ordered: 2023 Is this request for a controlled substance?Yes, What was the last refill date 2023 w/ quantity 60 and dosage 5-325mg and [...] Upcoming Encounters Date Type Department Care Team ([facility] st Contact Info) Description 08/23/2023 10:00 AM EST [facility] [address] [place] [address] Martina Resendiz, RN [address] [place] [address] 09/08/2023 1:15 PM EST Office Visit Orthopaedics Spine Surgery, [facility] [address] [place] [address] Wyatt Ly MD [address] [place] [address] [place] [address] 09/25/2023 10:30 AM EST Imaging [facility] 132 [facility] [place] [address] Gw, Excess Time Radiology 132 [facility] [place] [address] 11/22/2023 10:30 AM EDT Office Visit Cardiology, [facility] [address] [place] [address] Edward Oliver, PA-C 132 [facility] [place] [address] 01/03/2024 12:20 PM EDT Office Visit Family Practice [facility] [address] [facility] [place] [address] Cedric Downey III, MD [address] [facility] [place] [address] 07/04/2024 9:20 AM EST Office Visit Rheumatology [place] [address] [facility] [place] [address] Yeyo Barrios MD [facility] [employer] [facility] [place] [address] Scheduled Procedures Name Priority Associated Diagnoses Date/Ti [...] COPD 03/15/2024 03/15/2023 CKD HGB USE SMARTSET 87686 05/15/202405/15, 05/05/2023, 05/05/2023, Additional history exists CKD PHOS USE SMARTSET 50257 07/05/202406/21, 03/20/2023, 03/19/2023, Additional history exists DXA [...] D LEVEL ONCE IN A LIFETIME-USE SMARTSET# 85301 Completed 07/05/2023, 01/06/2020, 03/06/2018, Additional history exists [...] this encounter Medical Devices Implanted Type Area Pipe Fitter Gas Pipe Device Identifier Shelf Expiration Date Model / Serial / Lot Dbx 5cc [id number] - [id number] - [id number] Implanted:Qty : 1 on 01/20/2021 by Wyatt Ly MD at OR [facility] Tissue - Human N/A: Spine Cervical MUSCULOSKELETAL TRANSPLANT FND [id number] 08/22/2021 [id number] / [id number] / LOT NA 60mm Rods Implanted:Qty : 2 on 01/20/2021 by Wyatt Ly MD at OR [facility] N/A: Spine Cervical [employer] INC 1020-64-0 60 / / 10cc Mastergraft Biologic Matrix Ext Block Implanted:Qty : 1 on 03/15/2023 by Wyatt Ly MD at OR [facility] N/A: Spine Lumbar Medtronic Sofamor Danek [id number] 11/18/2025 [id number] / [id number] / [id number] documented as of this encounter Advance Directives [...] Directives occurred with: Not Discussed Care Teams Coffee Plantation Worker Relationship Specialty Start Date End Date Shayan PAGAN, Cedric Estes MD [address] [place] [address] PCP - General Family Medicine 10/04/19 documented as of this encounter
--- OUTSIDE RECORDS SUMMARY | 2023-11-08 10:24 | External Medical Summary | Summary of Care ---
Author Name Unknown Organization [facility] Address [address] [place] [address] Phone [phone] Care Team Providers Care Bread Supervisor Name Role Phone Shayan PAGAN MD, Cedric Estes Primary Care Provider [phone] Reason for Visit * Reason Comments [facility]: Maintenance Encounter Details Date Type Department Care Team (Late st Contact Info) Description 08/23/2023 10:00 AM EST [facility], [facility] [address] [employer] [place] [address] Martina Resendiz, RN [address] [employer] [place] [address] Allergies Active Allergy Reactions Criticality Noted Date Comments Varenicline 12/11/2014 nausea Corticosteroids Other (Please comment) Medium 12/27/2013 Hyper, Mental Status Changes on oral steroids Dm-Apap-Cpm Anaphylaxis,Other (Please comment) High 12/27/2013 Contact dermatitis Ibuprofen Other (Please comment) Low 12/27/2013 Affects acid reflux Iodinated Contrast Media Hives 10/08/2007 Penicillins 10/09/2007 Rash documented as of this encounter (statuses as of 08/23/2023) Medications Medication Sig Dispensed Refills Start Date [...] Hour (toPROL XL)Indications:Coron zeenat artery disease involving [place] coronary artery of [place] heart without angina pectoris Take 0.5 [...] as of this encounter (statuses as of 08/23/2023) Active Problems Problem Noted Date Diagnosed Date [...] as of this encounter (statuses as of 08/23/2023) Resolved Problems Problem Noted Date Diagnosed Date [...] non-displaced fx right #2,3,4,5 (CT done at [facility]) MEDICATION USE AGREEMENT 12/11/201408/2017 Overview: Started [facility] 03/01/16 Signed 03/20/14, renewed [...] as of this encounter (statuses as of 08/23/2023) Immunizations Name Administration Dates Next Due COVID-19 mRNA, LNP-s, No Pre serve, 2-Dose Series ([employer]) 12/24/2021,05/21/2021,11/04/2020,10/14 Covid-19, Mrna, Lnp-s, Pf, B ivalent, [...] Sign Reading Time Taken Comments Blood Pressure 154/79 08/23/2023 10:36 AM EST Pulse 78 08/23/2023 10:36 AM EST Temperature 37.2 C (98.9 F) 08/23/2023 10:[address] Respiratory Rate 18 08/23/2023 10:36 AM EST Oxygen Saturation 96% 08/23/2023 10:36 AM EST Inhaled Oxygen Concentration - - Weight 61.4 kg (135 lb 4.8 oz) 08/23/2023 10:36 AM EST Height - - Body Mass Index 27.31 04/17/2023 9:42 AM EDT documented in this [...] Progress Notes * Martina Resendiz RN - 08/23/2023 9:56 AM EST Images from the original note were not included. [facility] [employer] Monthly Visit Date: 08/23/2023 Time: 9:57 AM Name: Sandy Fan : 1950 Current Concerns: Pt seen for return RNCM visit Was in ED 08/02 for chest pain Tests were negative for cardiac issues Questionable if anxiety/stress related Due to have stress test in September Has been followed by cardio d/t atypical chest pain Denies any issues with chest pain since Has been upset recently d/t recent passing of her pet rabbit, but is trying to stay positive and not feel so stressed Vitals are stable Lungs clear bilaterally Physical Exam: BP 154/79 | Pulse 78 | Temp 37.2 C (98.9 F) | Resp 18 | Wt 61.4 kg (135 lb 4.8 oz) | SpO2 96% |BMI 27.31 kg/m | BSA 1.6 m Pain 0 Physical Exam Constitutional: General: [...] and dry. Neurological: Mental Status: She is alert and oriented to person, place, and time. Problems/Symptoms: Review of Systems Constitutional: Negative. HENT: [...] questionnaires available. No change in living situation Denies falls [facility] Completed this Visit: No. Routine visit Advanced Care Planning: No documentation, acp on file. Patient's Goals of Care: Stay out of hospital Get stronger Walk without walker Reinforcement/Education: Educated on home safety: Create a [...] bp, pulse ox, and weight monitoring via [facility] F/u with cardiology Home Interventions Provided: Home Intervention: Other; evaluation Reinforced current Plan of Care, including self-management and medication regimen Patient's 'Red Flags': Feeling faint or dizzy Wt gain of 3 lbs in 24 hrs or 5 lbs in one week Increased SOB Patient Needs to Remember: Call [facility] at with any new or worsening health concerns or problems, red flag symptoms. Referrals Needed: Other none Follow Up: Is there cellular connectivity/connectivity in the home? Yes Does the patient have internet in the home? Yes Patient encouraged to call the intake phone number for all urgent but not emergent issues. Is the patient new to [facility] within the last 30 days? No, Assess appropriateness for upcoming telehealth visits. Cancel telehealth visits & schedule home visit with care team truck driver(s)as indicated. Provider is in agreement with Plan of Care: Yes Scheduled to follow up with patient in one month. Martina Resendiz RN 08/23/2023 9:57 AM documented in this encounter Plan of Treatment Upcoming Encounters Date Type Department Care Team (Late st Contact Info) Description 09/08/2023 1:15 PM EST Office Visit Orthopaedics Spine Surgery, [facility] [address] [place] [address] Wyatt Ly MD [address] [place] [address] [place] [address] 09/21/2023 10:00 AM EST [facility] [address] [place] [address] Martina Resendiz RN [address] [place] [address] 09/25/2023 10:30 AM EST Imaging [facility] II 2nd Floor Cardiology, [place] [address] [place] [address] Gw, Excess Time Radiology [address] [place] [place] [address] 11/22/2023 10:30 AM EDT Office Visit Cardiology, [facility] [address] [place] [address] Edward Oliver PABrownC [address] [place] [address] 01/03/2024 12:20 PM EDT Office Visit Family Practice [facility] 200 [facility] [place] [address] [place] III, Cedric Estes MD 200 [facility] [place] [address] 07/04/2024 9:20 AM EST Office Visit Rheumatology [facility] [address] [place] [address] Yeyo Barrios MD [address] [place] [address] Scheduled Procedures Name Priority Associated Diagnoses Date/Ti [...] COPD 03/15/2024 03/15/2023 CKD HGB USE SMARTSET 51644 05/15/202405/15, 05/05/2023, 05/05/2023, Additional history exists CKD PHOS USE SMARTSET 18557 07/05/202406/21, 03/20/2023, 03/19/2023, Additional history exists DXA [...] D LEVEL ONCE IN A LIFETIME-USE SMARTSET# 73706 Completed 07/05/2023, 01/06/2020, 03/06/2018, Additional history exists [...] this encounter Medical Devices Implanted Type Area Printing Press Operator Device Identifier Shelf Expiration Date Model / Serial / Lot Dbx 5cc [id number] - [id number] - [id number] Implanted:Qty : 1 on 01/20/2021 by Wyatt Ly MD at OR [facility] Tissue - Human N/A: Spine Cervical MUSCULOSKELETAL TRANSPLANT FND [id number] 08/22/2021 [id number] / [id number] / LOT NA 60mm Rods Implanted:Qty : 2 on 01/20/2021 by Wyatt Ly MD at OR [facility] N/A: Spine Cervical DE[employer] SP[employer] INC 1020-64-0 60 / / 10cc Mastergraft Biologic Matrix Ext Block Implanted:Qty : 1 on 03/15/2023 by Wyatt Ly MD at OR [facility] N/A: Spine Lumbar Medtronic Sofamor Danek [id number] 11/18/2025 [id number] / [id number] / [id number] documented as of this encounter Advance Directives [...] Directives occurred with: Not Discussed Care Teams Bread Supervisor Relationship Specialty Start Date End Date Cedric Downey III, MD 200 [facility] [place] [address] PCP - General Family Medicine 10/04/19 documented as of this encounter
[2023-11-08] MEDS: lisinopril 2.5 MG TAB PO SCH (10:37)
[2023-11-08] MEDS: ISOSORBIDE MONO EXTENDED REL 30 MG TABCR PO SCH (12:24)
--- NOTE | 2023-11-08 12:33 | Hospitalist Progress Note ---
Date of Service November 08, 2023 Assessment & Plan (1) Chest pain: Plan: Chest Pain: R/O ACS H/O nonobstructive coronary artery disease H/O PVD Troponin:Negative EKG showed no signs of acute ischemia CXR: no acute process Lipid panel within normal limits Continue aspirin, Lipitor, isosorbide, lisinopril Cardiology consulted Chronic diastolic heart failure No signs of acute exacerbation Continue home medications Monitor volume status Resume HCTZ as able COPD H/O tobacco use in the past No signs of acute exacerbation Continue home inhalers Saturating well on room AMENA on CKD III--POA Received IV fluids Resume HCTZ, lisinopril as able Avoid nephrotoxic agents as able Monitor renal function Hypertension Hyperlipidemia Anxiety/Mood disorder Continue home medications as able Anemia of chronic disease Hemoglobin at baseline Monitor DVT Px: Heparin SQ CODE STATUS Full Code Admission and Anticipated Discharge Date Admission Date: November 07, 2023 Subjective Patient is seen and examined at bedside Chest pain resolved Denies any dyspnea, dizziness, nausea, vomiting, abdominal pain Discussed with cardiology No other complaints Review of Systems Review of Systems: All systems reviewed & are unremarkable except as noted in Subjective Physical Exam Physical Exam: Physical Exam: Vitals signs as noted above General Appearance:Moderately built and nourished, no apparent distress Head: normocephalic, Atraumatic Eyes: normal inspection, EOMI Neck: supple, Trachea midline Respiratory/Chest: Decreased breath sounds, CTA, No accessory muscle use Cardiovascular: S1, S2, No murmur Abdomen/GI:Soft, Non tender, Bowel sounds present Extremities/Musculoskeletal:normal inspection, Trace edema Neurologic/Psych:AAOX3, grossly no focal neurological deficits Skin: normal color, warm Results & Data Results & Data Vital Signs (Past 12 Hours) Vital Signs Temp Pulse Pulse Resp BP BP Pulse Ox 11/08/23 11:28 71 18 159/74 H 92 11/08/23 08:33 164/62 H 11/08/23 08:25 36.6 C 89 18 184/67 H 92 11/08/23 08:00 67 11/08/23 04:00 36.6 C 61 21 119/49 L 96 11/08/23 01:34 67 11/08/23 01:17 36.5 C 62 15 146/57 H 96 11/08/23 01:16 61 11/08/23 01:14 36.5 C 11/08/23 01:00 63 15 11/08/23 00:45 146/57 H 11/08/23 00:45 66 15 O2 Del Method 11/08/23 11:28 Room Air 11/08/23 08:33 11/08/23 08:25 Room Air 11/08/23 08:00 11/08/23 04:00 Room Air 11/08/23 01:34 11/08/23 01:17 Room Air 11/08/23 01:16 11/08/23 01:14 11/08/23 01:00 11/08/23 00:45 11/08/23 00:45 Laboratory Results Short CBC 11/07/23 11/08/23 Range/Units 20:12 04:49 WBC 10.23 8.47 (4.8-10.8) K/ul Hgb 11.5 L 10.1 L (12.0-16.0) g/dl Hct 36.0 L 30.8 L (37.0-47.0) % Plt Count 221 194 (130-400) K/uL BMP 11/07/23 11/08/23 20:12 04:49 Sodium 139 141 Potassium 4.2 4.3 Chloride 105 109 H Carbon Dioxide 27 28 BUN 23 21 Creatinine 1.50 H 1.22 H Glucose 100 H 90 Calcium 9.4 8.6 Urine 11/08/23 Range/Units 00:25 Urine Color Yellow Urine Appearance Clear (Clear) Urine pH 5.5 (4.5-7.5) Ur Specific Badger 1.020 (1.000-1.030) Urine Protein Negative (Negative) Urine Glucose (UA) Negative (Negative) (1) Chest pain Chest pain type: unspecified Qualified Code(s): R07.9 - Chest pain, unspecified
--- NOTE | 2023-11-08 15:45 | Electrocardiogram Report ---
Test Reason : Blood Pressure : / mmHG Vent. Rate : 072 BPM Atrial Rate : 072 BPM P-R Int : 152 ms QRS Dur : 088 ms QT Int : 408 ms P-R-T Axes : 055 -14 032 degrees QTc Int : 446 ms Normal sinus rhythm When compared with ECG of 02-AUG-2023 13:43, No significant change was found Confirmed by Cas Isabel ([id number]) on 11/08/2023 3:45:17 PM Referred By: REFERRED SELF Confirmed By:oTbias Isabel
--- NOTE | 2023-11-08 15:51 | Electrocardiogram Report ---
Test Reason : Blood Pressure : / mmHG Vent. Rate : 065 BPM Atrial Rate : 065 BPM P-R Int : 168 ms QRS Dur : 088 ms QT Int : 448 ms P-R-T Axes : 062 -04 025 degrees QTc Int : 465 ms Normal sinus rhythm Incomplete right bundle branch block Abnormal ECG When compared with ECG of 07-NOV-2023 20:29, (unconfirmed) No significant change was found Confirmed by Cas Isabel ([id number]) on 11/08/2023 3:51:09 PM Referred By: REFERRED SELF Confirmed By:Tobias Isabel
--- NOTE | 2023-11-08 16:52 | Electrocardiogram Report ---
Test Reason : Blood Pressure : / mmHG Vent. Rate : 067 BPM Atrial Rate : 067 BPM P-R Int : 152 ms QRS Dur : 086 ms QT Int : 422 ms P-R-T Axes : 084 040 075 degrees QTc Int : 445 ms Normal sinus rhythm Incomplete right bundle branch block When compared with ECG of 07-NOV-2023 22:46, (unconfirmed) Nonspecific T wave abnormality no longer evident in Anterior leads Confirmed by Cas Isabel ([id number]) on 11/08/2023 4:52:03 PM Referred By: REFERRED SELF Confirmed By:Tobias Isabel
[2023-11-08] MEDS: oxyCODONE HCL IR 5 MG TAB (IMMEDIATE RELEASE) PO PRN (18:38)
[2023-11-08] MEDS: AMITRIPTYLINE HCL 10 MG TAB PO SCH (20:48)
[2023-11-08] MEDS: GABAPENTIN 600 MG TAB PO SCH (20:49)
[2023-11-08] MEDS: ATORVASTATIN 40 MG TAB PO SCH (20:49)
[2023-11-08] MEDS: SERTRALINE HCL 100 MG TABLET PO SCH (20:50)
[2023-11-09 04:45] LABS: Hematocrit (blood only) 32.4 % (37.0-47.0); Hemoglobin 10.4 g/dl (12.0-16.0); Mean Corpuscular Hemoglobin 29.1 pg (25.0-34.0); Mean Corpuscular Hgb Conc 32.1 g/dL (32.0-36.0); Mean Corpuscular Volume 90.8 fL (80.0-100.0); Mean Platelet Volume 10.3 fL (9.4-12.4); Platelet Count 202 K/uL (130-400); RDW Coefficient of Variation 12.4 % (11.5-14.5); RDW Standard Deviation 40.8 fL (36.4-46.3); Red Blood Count 3.57 M/uL (4.20-5.40)
[2023-11-09 05:22] LABS: BUN Creatinine Ratio 23.1 (10-20); Calcium 9.3 mg/dl (8.6-10.3); Creatinine Clr Calc Pharmacy 46.6 ml/min; Est GFR (African American) 72.5 ml/min; Est GFR (Non-African American) 62.6 ml/min; Potassium 3.8 mmol/L (3.5-5.1)
--- NOTE | 2023-11-09 11:48 | Hospitalist Progress Note ---
Date of Service November 09, 2023 Assessment & Plan (1) Chest pain: Plan: Chest Pain: R/O ACS H/O nonobstructive coronary artery disease H/O PVD Troponin:Negative EKG showed no signs of acute ischemia CXR: no acute process Lipid panel within normal limits Continue aspirin, Lipitor, lisinopril Added isosorbide 30 mg daily Appreciate cardiology input Plan for stress test as outpatient Plan to be discharged home today Chronic diastolic heart failure No signs of acute exacerbation Continue home medications Monitor volume status Resume HCTZ on discharge COPD H/O tobacco use in the past No signs of acute exacerbation Continue home inhalers Saturating well on room AMENA on CKD III--POA Received IV fluids Resume HCTZ, lisinopril as able Avoid nephrotoxic agents as able Monitor renal function Hypertension Hyperlipidemia Anxiety/Mood disorder Continue home medications as able Anemia of chronic disease Hemoglobin at baseline Monitor DVT Px: Heparin SQ CODE STATUS Full Code Disposition Home Admission and Anticipated Discharge Date Admission Date: November 07, 2023 Subjective Patient is seen and examined at bedside States feeling better today No recurrence of chest pain Offers no new complaints Denies any dyspnea, dizziness, nausea, vomiting, abdominal pain Plan to be discharged home today Review of Systems Review of Systems: All systems reviewed & are unremarkable except as noted in Subjective Physical Exam Physical Exam: Physical Exam: Vitals signs as noted above General Appearance:Moderately built and nourished, no apparent distress Head: normocephalic, Atraumatic Eyes: normal inspection, EOMI Neck: supple, Trachea midline Respiratory/Chest: Decreased breath sounds, CTA, No accessory muscle use Cardiovascular: S1, S2, No murmur Abdomen/GI:Soft, Non tender, Bowel sounds present Extremities/Musculoskeletal:normal inspection, Trace edema Neurologic/Psych:AAOX3, grossly no focal neurological deficits Skin: normal color, warm Results & Data Results & Data Vital Signs (Past 12 Hours) Vital Signs Temp Pulse Resp BP Pulse Ox O2 Del Method O2 Del Method 11/09/23 11:00 75 18 152/63 H 92 Room Air 11/09/23 07:00 36.6 C 72 18 149/83 H 94 Room Air 11/09/23 03:41 36.8 C 68 20 154/68 H 92 Room Air 11/09/23 01:02 Room Air Laboratory Results Short CBC 11/09/23 Range/Units 04:08 WBC 8.70 (4.8-10.8) K/ul Hgb 10.4 L (12.0-16.0) g/dl Hct 32.4 L (37.0-47.0) % Plt Count 202 (130-400) K/uL [facility] 11/09/23 04:08 Sodium 139 Potassium 3.8 Chloride 107 Carbon Dioxide 24 BUN 21 Creatinine 0.91 D Glucose 93 Calcium 9.3 (1) Chest pain Chest pain type: unspecified Qualified Code(s): R07.9 - Chest pain, unspecified
--- NOTE | 2023-11-09 11:57 | Discharge Summary ---
Date of Service November 09, 2023 Admission HPI Per Admitting Provider History obtained from patient and records. Medical history significant for chronic diastolic heart failure as per records (EF 60%, TTE 2022), hx nonobstructive CAD/ PVD as per records, hypertension, hyperlipidemia, chronic respiratory failure as per records, COPD as per records, migraine, GERD, anxiety/mood disorder, chronic anemia (baseline hemoglobin of 11), past tobacco abuse. Last confinement March 2023 for ambulatory dysfunction following back surgery. Recent ER visit July 2023 for left-sided chest pain. Patient declined admission recommendation by ER provider. Outpatient stress test contemplated as per ED provider note. Patient experienced sharp left-sided chest pain today associated with shortness of breath, diaphoresis with radiation to the shoulder and neck. Patient also gives symptoms of fluid retention over the last week. This occurred after winning money playing bingo. Episode similar to admission in the past which led to cardiac catheterization as per patient. Patient compliant with home medications. Denies unusual stress. Discomfort relieved by nitro spray administered by EMS. Nitropaste applied at the ER. Patient currently comfortable at the ER. Medical History as above Surgical History : Carpal surgery, cystoscopy, D&C, cholecystectomy, shoulder surgery, hysterectomy, spine surgery Family History : Breast cancer, heart disease Personal/Social history : Past tobacco abuse, no EtOH intake, retired from caregiver work Admission Exam Per Admitting Provider GENERAL: Comfortable, obese, pleasant, no respiratory distress SKIN: Pallor, warm HEENT: Pale palpebral conjunctivae, no ptosis, dry buccal mucosa NECK : Supple, short neck, no tenderness CHEST : Decreased breath sounds , no tenderness HEART : RRR, no obvious murmurs ABDOMEN: Some distention, nontender EXTREMITIES : Minimal LE swelling, no LE tenderness, no other conspicuous deformities noted NEUROLOGIC : Coherent, no facial asymmetry, no other gross focality Principal Diagnosis Chest pain Hypertension Discharge Data Allergies Allergy/AdvReac Type Severity Reaction Status Date / Time acetaminophen Allergy Severe Anaphylaxis Verified 11/07/23 23:50 chlorpheniramine Allergy Severe Anaphylaxis Verified 11/07/23 23:50 dextromethorphan Allergy Severe Anaphylaxis Verified 11/07/23 23:50 latex Allergy Mild RASH Verified 04/13/21 18:42 Iodinated Contrast Media Allergy Unknown . Verified 04/13/21 18:42 Penicillins Allergy Unknown Unknown Verified 04/13/21 18:42 varenicline AdvReac Severe NAUSEA Verified 04/13/21 18:42 benzalkonium chloride AdvReac Intermediate VERTIGO Verified 04/13/21 18:42 ibuprofen AdvReac Intermediate ACID REFLEX Verified 04/13/21 18:42 ofloxacin AdvReac Intermediate VERTIGO Verified 04/13/21 18:42 Corticosteroids AdvReac Unknown jittery Verified 04/13/21 18:42 (Glucocorticoids) and hyper Consultations 11/07/23 21:37 ED Decision to Admit Stat 11/08/23 01:02 Consult Cardiology Routine Procedures Performed Laboratory Results WBC 8.70 K/ul (4.8-10.8) 11/09/23 04:08 RBC 3.57 M/uL (4.20-5.40) L 11/09/23 04:08 Hgb 10.4 g/dl (12.0-16.0) L 11/09/23 04:08 Hct 32.4 % (37.0-47.0) L 11/09/23 04:08 MCV 90.8 fL (80.0-100.0) 11/09/23 04:08 MCH 29.1 pg (25.0-34.0) 11/09/23 04:08 MCHC 32.1 g/dL (32.0-36.0) 11/09/23 04:08 RDW Std Deviation 40.8 fL (36.4-46.3) 11/09/23 04:08 RDW Coeff of Melany 12.4 % (11.5-14.5) 11/09/23 04:08 Plt Count 202 K/uL (130-400) 11/09/23 04:08 MPV 10.3 fL (9.4-12.4) 11/09/23 04:08 Immature Gran % (Auto) 0.4 % 11/08/23 04:49 Neut % (Auto) 50.9 % 11/08/23 04:49 Lymph % (Auto) 33.9 % 11/08/23 04:49 [place] % (Auto) 10.4 % 11/08/23 04:49 Eos % (Auto) 3.2 % 11/08/23 04:49 Baso % (Auto) 1.2 % 11/08/23 04:49 Neut # (Auto) 4.32 K/uL (1.40-6.50) 11/08/23 04:49 Lymph # (Auto) 2.87 K/uL (1.20-3.40) 11/08/23 04:49 [place] # (Auto) 0.88 K/uL (0.11-0.59) H 11/08/23 04:49 Eos # (Auto) 0.27 K/uL (0.00-0.50) 11/08/23 04:49 Baso # (Auto) 0.10 K/uL (0.00-0.20) 11/08/23 04:49 Immature Gran # (Auto) 0.03 K/uL (0.01-0.20) 11/08/23 04:49 PT 10.2 Seconds (9.0-12.0) 11/07/23 20:12 INR 0.9 (0.9-1.1) 11/07/23 20:12 APTT 30 Seconds (21-31) 11/08/23 04:49 PTT Ratio 1.1 11/08/23 04:49 Sodium 139 mmol/L (136-145) 11/09/23 04:08 Potassium 3.8 mmol/L (3.5-5.1) 11/09/23 04:08 Chloride 107 mmol/L (98-107) 11/09/23 04:08 Carbon Dioxide 24 mmol/L (21-32) 11/09/23 04:08 Anion Gap 8 (3-11) 11/09/23 04:08 BUN 21 mg/dl (6-23) 11/09/23 04:08 Creatinine 0.91 mg/dl (0.6-1.2) D 11/09/23 04:08 Est Cr Clr Drug Dosing 46.6 ml/min 11/09/23 04:08 Est GFR ( Amer) 72.5 ml/min 11/09/23 04:08 Est GFR (Non-Af Amer) 62.6 ml/min 11/09/23 04:08 BUN/Creatinine Ratio 23.1 (10-20) H 11/09/23 04:08 Glucose 93 mg/dl (70-99(Fasting)) 11/09/23 04:08 POC Glucose 118 mg/dl (70-99) H 11/08/23 01:12 Calcium 9.3 mg/dl (8.6-10.3) 11/09/23 04:08 Magnesium 2.0 mg/dl (1.7-2.4) 11/09/23 04:08 Troponin I High Sens 3.4 pg/ml (0-14) 11/08/23 04:49 Triglycerides 117 mg/dl (0-150) 11/08/23 04:49 Cholesterol 127 mg/dl (0-200) 11/08/23 04:49 LDL Cholesterol, Calc 53 mg/dl 11/08/23 04:49 VLDL Cholesterol, Calc 23 mg/dl (0-30) 11/08/23 04:49 HDL Cholesterol 51 mg/dl 11/08/23 04:49 Cholesterol/HDL Ratio 2.5 (0-5) 11/08/23 04:49 Lipase 39 U/L (11-82) 11/07/23 20:12 Urine Color Yellow 11/08/23 00:25 Urine Appearance Clear (Clear) 11/08/23 00:25 Urine pH 5.5 (4.5-7.5) 11/08/23 00:25 Ur Specific [place] 1.020 (1.000-1.030) 11/08/23 00:25 Urine Protein Negative (Negative) 11/08/23 00:25 Urine Glucose (UA) Negative (Negative) 11/08/23 00:25 Urine Ketones Negative (Negative) 11/08/23 00:25 Urine Blood Negative (Negative) 11/08/23 00:25 Urine Nitrite Negative (Negative) 11/08/23 00:25 Urine Bilirubin Negative (Negative) 11/08/23 00:25 Urine Urobilinogen Negative (Negative) 11/08/23 00:25 Ur Leukocyte Esterase Negative (Negative) 11/08/23 00:25 Nasal Screen MRSA (PCR) Negative (Negative) 11/08/23 00:30 Impressions Chest X-Ray 11/07/23 20:35 XR chest 1V portable HISTORY: Left-sided chest pain. COMPARISON: Chest 08/02/2023. FINDINGS: No pneumothorax. No pleural effusions. The heart remains borderline enlarged. A few bibasilar linear densities favor subsegmental atelectasis or scarring. Otherwise, no focal lung consolidations to suggest a pneumonia. No evidence for pulmonary edema. There are calcifications within the aortic knob. Cervical spinal fusion hardware is again noted. IMPRESSION: A few bibasilar linear densities favor subsegmental atelectasis or scarring. Otherwise, no acute process within the chest. ACT 112: Negative or not required by law. Electronically signed by: Bello Vivas M.D. 11/08/2023 6:49 AM Hospital Course (1) Chest pain: Chest Pain: R/O ACS H/O nonobstructive coronary artery disease H/O PVD Troponin:Negative EKG showed no signs of acute ischemia CXR: no acute process Lipid panel within normal limits Continue aspirin, Lipitor, lisinopril Added isosorbide 30 mg daily Appreciate cardiology input Plan for stress test as outpatient Plan to be discharged home today Chronic diastolic heart failure No signs of acute exacerbation Continue home medications Monitor volume status Resume HCTZ on discharge COPD H/O tobacco use in the past No signs of acute exacerbation Continue home inhalers Saturating well on room AMENA on CKD III--POA Received IV fluids Resume HCTZ, lisinopril as able Avoid nephrotoxic agents as able Monitor renal function Hypertension Hyperlipidemia Anxiety/Mood disorder Continue home medications as able Anemia of chronic disease Hemoglobin at baseline Monitor DVT Px: Heparin SQ CODE STATUS Full Code Disposition Home Total Time Total Time Spent Total Time Spent (In Minutes): 47 minutes Discharge Plan Discharge Items Patient Disposition: Home - Self-Care Reason For Visit: CP Discharge Diagnosis: Chest pain Hypertension Activity: Per Instructions section Exercise/Sports: Wait until after follow-up appointment Non-emergency contact: Primary Care Provider and Printing Press Machinist Call non-emergency contact if: you have any medication questions, your symptoms worsen, your pain is concerning for you and you have a fever Follow-up/Referrals: Edward Oliver [Physician Web Site Designer] - (*The Cardiology office will contact you for follow up testing to be completed prior to scheduled appointment.* Date & Time 12/18/2023 3:30 PM Provider Edward Oliver PA-C Department Cardiology, [facility] ) Cedric Downey MD [Primary Care Provider] - (Date & Time 11/13/2023 11:00 AM Provider Cedric Downey III, MD Department [facility] ) Diet: Heart Healthy Addtl Attending Provider Instructions: Follow-up with your primary care physician Dr. Downey on11/13/2023 11:00 AM Follow-up with your team facilitator Edward Oliver PA-C on 12/18/2023 3:30 PM --- Get outpatient stress test as recommended by your team facilitator. Medication changes: Your lisinopril dose is decreased to 2.5 mg daily per Cardiology You are started on isosorbide 30 mg daily --Monitor your blood pressure regularly at home. Discuss with your primary care physician, team facilitator for further adjustment of medications as needed. Seek immediate medical attention if your symptoms reoccur or worsen Please take all medications as instructed on discharge list below. Please call if you have any questions or problems. You can reach a [facility] hospitalist on duty at [facility] 24 hours a day by calling [phone] Pending Studies at Discharge: No Stand-Alone Forms: My [facility] [place]ade, Smoking Cessation Medications and DC Order Prescriptions: New isosorbide mononitrate 30 mg Tablet Extended Release 24 Hr 30 mg PO QAM Qty: 30 1RF lisinopril 2.5 mg Tablet 2.5 mg PO QAM Qty: 30 1RF Continued alendronate 70 mg tablet 70 mg PO WK Rx Instructions: Monday ezetimibe [Zetia] 10 mg tablet 10 mg PO QAM sertraline 100 mg tablet 200 mg PO HS omeprazole 40 mg capsule,delayed release(DR/EC) 40 mg PO QAM aspirin 81 mg Tablet,Delayed Release (Dr/Ec) 81 mg PO QAM amitriptyline 10 mg tablet 20 mg PO HS calcium carbonate [Calcium 600] 600 mg calcium (1,500 mg) Tablet 600 mg PO QAM hydrochlorothiazide 12.5 mg capsule 12.5 mg PO MOWEFR hydroxyzine HCl 25 mg tablet 25 mg PO Q6H PRN (Reason: Anxiety) Emgality Pen 120 mg/mL pen injector 120 mg subcut MONTHLY atorvastatin 80 mg tablet 80 mg PO QPM acetaminophen 325 mg Tablet 650 mg PO Q8H Qty: 1 0RF gabapentin 600 mg Tablet 600 mg PO HS Qty: 14 0RF gabapentin 300 mg Capsule 300 mg PO BID17 Qty: 14 0RF hydrocodone-acetaminophen 5-325 mg tablet 1 tab PO Q8H PRN (Reason: pain) 1 Days Qty: 1 0RF tizanidine 4 mg tablet 4 mg PO Q8H PRN (Reason: Spasms) cyclobenzaprine 5 mg tablet 5 mg PO HS PRN (Reason: Muscle Spasm) Anoro Ellipta 62.5-25 mcg/actuation blister with device 1 inh INHALATION QAM nitroglycerin 0.4 mg tablet, sublingual 0.4 mg sublingual UD PRN (Reason: Other) Rx Instructions: 1 tab sl as needed for cp Discontinued lisinopril [Zestril] 10 mg tablet 10 mg PO QAM Discharge Orders: Discharge Order (Routine); Ordered 11/09/23 Ordered By: Alfonso Delgadillo Admission Data Admit Date/Time: 11/07/23 23:37 Attending Provider: Alfonso Delgadillo Admit Provider: Bryn Fischer Primary Care Provider: Cedric Downey Other Providers: Bryn Fischer; Liv Obando; Efren Sheppard; Mukesh Wharton; Aureliano Barrow; Jerson Cohen; Edward Oliver; Glory Gallardo; Hortensia Batres; Yakov Barraza Ashley M.; Reyes Avery; Jose Manuel Glynn; Lubna Manning; Galina Avendano; Marco Lopez; Gomez Sahni
--- OUTSIDE RECORDS SUMMARY | 2023-11-09 19:53 | External Medical Summary | Summary of Care ---
Author Name Unknown Organization [facility] Address [address] [place] [address] Phone [phone] Care Team Providers Care Workforce Management Coordinator Name Role Phone Shayan PAGAN MD, Cedric Estes Primary Care Provider [phone] Reason for Referral * Precert (Within 10 days (routine)) - Pending Review Specialty Diagnoses / Procedures Referred By Contac t Referred To Contact Radiology Diagnoses Atypical chest pain Coronary artery disease involving [place] coronary artery of [place] heart without angina pectoris Procedures NM MYOCARD PERF IMG SPECT MULT STUDIES WITH PHARM INTERV Liv Craft CRNP [address] [place] [address] Referral ID Status Reason Start Date Expiration Date Visits Requested Visits Authorized [id number] Pending Review Precert 11/08/[phone] Encounter Details Date Type Department Care Team (Late st Contact Info) Description 11/08/2023 Telephone Cardiology, [facility] [address] [facility] [place] [address] Liv Craft CRNP [address] [place] [address] Allergies Active Allergy Reactions Criticality Noted Date Comments Varenicline 12/11/2014 nausea Corticosteroids Other (Please comment) Medium 12/27/2013 Hyper, Mental Status Changes on oral steroids Dm-Apap-Cpm Anaphylaxis,Other (Please comment) High 12/27/2013 Contact dermatitis Ibuprofen Other (Please comment) Low 12/27/2013 Affects acid reflux Iodinated Contrast Media Hives 10/08/2007 Penicillins 10/09/2007 Rash documented as of this encounter (statuses as of 11/08/2023) Medications Medication Sig Dispensed Refills Start Date [...] THE MORNING 90 Tablet 3 03/13/2023 Active Metoprolol Succinate ER 25 MG Oral Tablet Extended Release 24 Hour (toPROL XL)Indications:Coron zeenat artery disease involving [place] coronary artery of [place] heart without angina pectoris Take 0.5 Tablets [...] for Anxiety. 30 Tablet 2 10/11/2023 Active tiZANidine HCl 4 MG Oral Tablet (Zanaflex)Indication s:Cervical spinal stenosis TAKE 1 TABLET BY MOUTH EVERY 8 HOURS NEEDED FOR MUSCLE SPASMS 30 Tablet 5 11/06/2023 Active documented as of this encounter (statuses as of 11/08/2023) Active Problems Problem Noted Date Diagnosed Date Migraine without status migrainosus, not intract able 04/25/2023 Last Assessment & Plan: Not needed Emgality for several months Major depressive disorder, r ecurrent episode, in partial remission 04/25/2023 Last Assessment & Plan: Continue with zoloft History of [place] (myocardial infarction) 04/25/2023 Syncope 04/25/2023 Last Assessment [...] as of this encounter (statuses as of 11/08/2023) Resolved Problems Problem Noted Date Diagnosed Date [...] fx right #2,3,4,5 (CT done at [facility]) MEDICATION USE AGREEMENT 12/11/201408/2017 Overview: Started hemant [...] as of this encounter (statuses as of 11/08/2023) Immunizations Name Administration Dates Next Due COVID-19 mRNA, LNP-s, No Pre serve, 2-Dose Series ([employer]) 12/24/2021,05/21/2021,11/04/2020,10/14 Covid-19, Mrna, Lnp-s, Pf, B ivalent, 30 Mcg, IM, 12 yrs and above ([employer]) 05/09/2022 PPD 10/25/2021 Pneumococcal Conjugate Vacc, 13 [...] encounter Miscellaneous Notes * Telephone Encounter - Deb Schumacher OSA - 11/08/2023 2:47 PM EDT Nuc stress test needed per Liv Craft. Will schedule with Edward once stress test has been scheduled. * Telephone Encounter - Liv Craft CRNP - 11/08/2023 2:42 PM EDT Patient admitted to [facility] on 11/07/2023. Anticipate Discharge within the next 24 to 48 hours. Scheduling: Keep follow up with Edward Oliver as scheduled- will need nuclear stress completed PRIOR to his appt. Thanks, FLASH Ennis Cardiology Consult IMPRESSION: 73-year-old female with longstanding history of atypical chest pain. Symptoms have been ongoing formany years and she has had multiple heart catheterizations for similar symptoms. Stressors trigger symptoms. Sublingual nitroglycerin/Nitropaste does help her symptoms Inpatient EKG without acute ischemic changes. High-sensitivity troponins have been negative x 3. Echocardiogram is pending. PLAN: Atypical chest pain: Symptoms are very atypical for unstable angina. Blood pressures have been hypertensive. Previously on lisinopril 10 mg daily as an outpatient but was discontinued due to hypotension 04/2023. Currently chest pain-free with the use of Nitro-paste 1. Continue metoprolol succinate 12.5 mg daily 2. Recommend improved blood pressure control--recommend restarting lisinopril at lower dose, 2.5 mgdaily. Continue adequate oral hydration. Repeat BMP in the morning. 3. Discontinue Nitro-Paste. Start Imdur 30 mg daily. Hesitant to add calcium channel randi due tochronic lower extremity edema/diastolic dysfunction. 4. She does carry a history of nonobstructive CAD per most recent cardiac catheterization 08/2019-- recommend rescheduling of outpatient nuclear stress test. 5. Continue aspirin and statin as ordered. 6. Symptoms seem to be triggered by stressful situation--patient may benefit from an anxiolytic. Will defer to primary team. documented in this encounter Plan of Treatment Upcoming Encounters Date Type Department Care Team (Late st Contact Info) Description 11/13/2023 11:00 AM EDT Office Visit [facility] [place] [address] [place] [address] BraxtonCedric araiza III, MD [address] [facility] [address] [place] [address] 12/13/2023 9:20 AM EDT Office Visit [facility] [address] [facility] [place] [address] Cedric Downey III, MD [address] [facility] [place] [address] 12/18/2023 3:30 PM EDT [facility] [address] [place] [address] Edward Oliver PA-C [address] [place] [address] 01/03/2024 12:20 PM EDT Office Visit [facility] [address] [facility] [place] [address] Cedric Downey III, MD [address] [facility] [place] [address] 07/04/2024 9:20 AM EST Office Visit Rheumatology [address] [place] [address] Yeyo Barrios MD [facility] [place] [address] 09/06/2024 2:00 PM EST Office Visit Orthopaedics Spine Surgery, [facility] [address] [place] [address] Wyatt Ly MD [address] [place] [address] [place] [address] Scheduled Orders Name Type Priority Associated Diagnoses Orde r Schedule NM MYOCARD PERF IMG SPECT MULT STUDIES WITH PHARM INTERV Cardiology Routine Atypical chest pain Coronary artery disease involving [place] coronary artery of [place] heart without angina pectoris Expected: 11/08/2023, Expires: 12/08/2024 Scheduled Procedures Name Priority Associated Diagnoses Date/Ti [...] COPD 03/15/2024 03/15/2023 CKD HGB USE SMARTSET 23768 05/15/202405/15, 05/05/2023, 05/05/2023, Additional history exists CKD PHOS USE SMARTSET 36544 07/05/202406/21, 03/20/2023, 03/19/2023, Additional history exists DXA [...] D LEVEL ONCE IN A LIFETIME-USE SMARTSET# 91794 Completed 07/05/2023, 01/06/2020, 03/06/2018, Additional history exists [...] this encounter Medical Devices Implanted Type Area Felling Machine Operator Device Identifier Shelf Expiration Date Model / Serial / Lot Dbx 5cc [id number] - [id number] - [id number] Implanted:Qty : 1 on 01/20/2021 by Wyatt Ly MD at OR [facility] Tissue - Human N/A: Spine Cervical MUSCULOSKELETAL TRANSPLANT FND [id number] 08/22/2021 [id number] / [id number] / LOT NA Vitoss Bimodal Foam Pack 10cc - [id number] - [id number] Implanted:Qty : 1 on 01/20/2021 by Wyatt Ly MD at OR [facility] N/A: Spine Cervical PAULETTE : SPINE 12/16/20218235-8404 / [id number] / [id number] 4.5 X 20mm Cortical Fixation Screw Implanted:Qty : 1 on 01/20/2021 by Wyatt Ly MD at OR [facility] N/A: Spine Cervical [employer] 1020-45-220 / / 4.5 X 22mm Cortical Fixation Screw Implanted:Qty : 1 on 01/20/2021 by Wyatt Ly MD at OR [facility] N/A: Spine Cervical [employer] 1020-45-222 / / 3.5 X 12mm Screws Implanted:Qty : 8 on 01/20/2021 by Wyatt Ly MD at OR [facility] N/A: Spine Cervical [employer] 1020-35-112 / / Set Screws Implanted:Qty : 10 on 01/20/2021 by Wyatt Ly MD at OR [facility] N/A: Spine Cervical [employer] 1020-00-000 / / 60mm Rods Implanted:Qty : 2 on 01/20/2021 by Wyatt Ly MD at OR [facility] N/A: Spine Cervical [employer] 1020-64-060 / / 1cm X 5cm Magnifuse Posterior Cervical Bone Graft (Formerly Osteotech) Implanted:Qty : 1 on 03/15/2023 by Wyatt Ly MD at OR [facility] N/A: Spine Lumbar Medtronic Sofamor Danek [id number] 01/05/2025 [id number] / [id number] / LOT NA [address] Expandable Interbody System, Interbody Cage Implanted:Qty : 2 on 03/15/2023 by Wyatt Ly MD at OR [facility] N/A: Spine Lumbar Medtronic 03/08/2030 [id number] / / [id number] 6.5 X 45 Screw Implanted:Qty : 2 on 03/15/2023 by Wyatt Ly MD at OR [facility] N/A: Spine Lumbar Medtronic [id number] / / Description:No Exp. Date, us ed out of set 6.5 X 40 Screw Implanted:Qty : 2 on 03/15/2023 by Wyatt Ly MD at OR [facility] N/A: Spine Lumbar Medtronic [id number] / / Description:No Expiration da te, used out of set 7.5 X 40 Screw Implanted:Qty : 2 on 03/15/2023 by Wyatt Ly MD at OR [facility] N/A: Spine Lumbar Medtronic [id number] / / Description:No Expiration Da te, used out of set Screw Bone Ti Set Solera 4.75m - [id number] Implanted:Qty : 6 on 03/15/2023 by Wyatt Ly MD at OR [facility] N/A: Spine Lumbar MEDTRONIC [facility] [id number] / / Description:No Expiration Da te, used out of set Anthony [place] 4.75mm Pbent 55mm - [id number] Implanted:Qty : 2 on 03/15/2023 by Wyatt Ly MD at OR [facility] N/A: Spine Lumbar MEDTRONIC : NEUROLOGIC PAIN [id number] / / 10cc Mastergraft Biologic Matrix Ext Block Implanted:Qty : 1 on 03/15/2023 by Wyatt Ly MD at OR [facility] N/A: Spine Lumbar Medtronic Sofamor Danek [id number] 11/18/2025 [id number] / [id number] / [id number] Dbx 2.5cc [id number] - [id number] - [id number] Implanted:Qty : 1 on 03/15/2023 by Wyatt Ly MD at OR [facility] N/A: Spine Lumbar MUSCULOSKELETAL TRANSPLANT FND [id number] 08/04/2024 051668 / [id number] / LOT NA Dbx 2.5cc 140002 - [id number] - [id number] Implanted:Qty : 1 on 03/15/2023 by Wyatt Ly MD at OR [facility] N/A: Spine Lumbar MUSCULOSKELETAL TRANSPLANT FND [id number] 10/04/2024 079638 / [id number] / LOT NA Graft Bone Infuse Kit Xsmall - [id number] - [id number] Implanted:Qty : 1 on 03/15/2023 by Wyatt Ly MD at OR [facility] N/A: Spine Lumbar MEDTRONIC : NEUROLOGIC PAIN [id number] 07/20/2024 [id number] / [id number] / [id number] documented as of this encounter Visit Diagnoses Diagnosis Atypical chest pain- Primary Other chest pain Coronary artery disease involving [place] coronary artery of [place] heart without angina pectoris documented in this encounter Advance Directives Latest [...] Directives occurred with: Not Discussed Care Teams Workforce Management Coordinator Relationship Specialty Start Date End Date Shayan LATASHA, Cedric Estes MD [address] [facility], [place] [address] PCP - General Family Medicine 10/04/19 documented as of this encounter
--- OUTSIDE RECORDS SUMMARY | 2023-11-09 19:53 | External Medical Summary | Summary of Care ---
Author Name Unknown Organization [facility] Address [address] [place] [address] Phone [phone] Care Team Providers Care Machine Repairman Name Role Phone Shayan PAGAN MD, Cedric Estes Primary Care Provider [phone] Reason for Referral * Precert (Within 10 days (routine)) - Pending Review Specialty Diagnoses / Procedures Referred By Contac t Referred To Contact Radiology Diagnoses Atypical chest pain Coronary artery disease involving [place] coronary artery of [place] heart without angina pectoris Procedures NM MYOCARD PERF IMG SPECT MULT STUDIES WITH PHARM INTERV Liv Craft CRNP [address] [place] [address] Referral ID Status Reason Start Date Expiration Date Visits Requested Visits Authorized [id number] Pending Review Precert 11/08/[phone] Encounter Details Date Type Department Care Team (Late st Contact Info) Description 11/08/2023 Telephone Cardiology, [facility] [address] [facility] [place] [address] iLv Craft CRNP [address] [place] [address] Allergies Active Allergy Reactions Criticality Noted Date [...] Hour (toPROL XL)Indications:Coron zeenat artery disease involving [place] coronary artery of [place] heart without angina pectoris Take 0.5 Tablets [...] & Plan: Continue with zoloft History of [place] (myocardial infarction) 04/25/2023 Syncope 04/25/2023 Last Assessment [...] non-displaced fx right #2,3,4,5 (CT done at [facility]) MEDICATION USE AGREEMENT 12/11/201408/2017 Overview: Started hemant [...] Having left sciatic sx's - followed by [facility] documented as of this encounter (statuses as of 11/08/2023) Immunizations Name Administration Dates Next Due COVID-19 mRNA, LNP-s, No Pre serve, 2-Dose Series ([employer]) 12/24/2021,05/21/2021,11/04/2020,10/14 Covid-19, Mrna, Lnp-s, Pf, B ivalent, 30 Mcg, IM, 12 yrs and above ([employer]) 05/09/2022 PPD 10/25/2021 Pneumococcal Conjugate Vacc, 13 [...] 11/08/2023 2:42 PM EDT Patient admitted to [facility] on 11/07/2023. Anticipate Discharge within the next [...] Description 11/13/2023 11:00 AM EDT Office Visit [facility] [place] [address] [place] [address] Rio GrandeCedric araiza III, MD [address] [facility] [address] [place] [address] 12/13/2023 9:20 AM EDT Office Visit [facility] [address] [facility] [place] [address] Cedric Downey III, MD [address] [facility] [place] [address] 12/18/2023 3:30 PM EDT [facility] 132 [place] [address] Edward Oliver PA-C [address] [place] [address] 01/03/2024 12:20 PM EDT Office Visit [facility] [address] [facility] [place] [address] Cedric Downey III, MD [address] [facility] [place] [address] 07/04/2024 9:20 AM EST Office Visit Rheumatology [address] [place] [address] Yeyo Barrios MD [facility]0 [facility] [place] [address] 09/06/2024 2:00 PM EST Office Visit Orthopaedics Spine Surgery, [facility] 132 [place] [address] Wyatt Ly MD [address] [place] [address] [place] [address] Scheduled Orders Name Type Priority Associated Diagnoses Orde r Schedule NM MYOCARD PERF IMG SPECT MULT STUDIES WITH PHARM INTERV Cardiology Routine Atypical chest pain Coronary artery disease involving [place] coronary artery of [place] heart without angina pectoris Expected: 11/08/2023, Expires: [...] COPD 03/15/2024 03/15/2023 CKD HGB USE SMARTSET 59667 05/15/202405/15, 05/05/2023, 05/05/2023, Additional history exists CKD PHOS USE SMARTSET 39937 07/05/202406/21, 03/20/2023, 03/19/2023, Additional history exists DXA [...] D LEVEL ONCE IN A LIFETIME-USE SMARTSET# 94009 Completed 07/05/2023, 01/06/2020, 03/06/2018, Additional history exists [...] this encounter Medical Devices Implanted Type Area Retort Furnace Helper Device Identifier Shelf Expiration Date Model / Serial / Lot Dbx 5cc [id number] - [id number] - [id number] Implanted:Qty : 1 on 01/20/2021 by Wyatt Ly MD at OR [facility] Tissue - Human N/A: Spine Cervical MUSCULOSKELETAL TRANSPLANT FND [id number] 08/22/2021 487277 / [id number] / LOT NA Vitoss Bimodal Foam Pack 10cc - [id number] - [id number] Implanted:Qty : 1 on 01/20/2021 by Wyatt Ly MD at OR [facility] N/A: Spine Cervical PAULETTE : SPINE 12/16/20218437-6505 / [id number] / [id number] 4.5 X 20mm Cortical Fixation Screw Implanted:Qty : 1 on 01/20/2021 by Wyatt Ly MD at OR [facility] N/A: Spine Cervical DE[employer] SP[employer] INC 1020-45-220 / / 4.5 X 22mm Cortical Fixation Screw Implanted:Qty : 1 on 01/20/2021 by Wyatt Ly MD at OR [facility] N/A: Spine Cervical [employer] 1020-45-222 / / 3.5 X 12mm Screws Implanted:Qty : 8 on 01/20/2021 by Wyatt Ly MD at OR [facility] N/A: Spine Cervical DEPU[employer] INC 1020-35-112 / / Set Screws Implanted:Qty : 10 on 01/20/2021 by Wyatt yL MD at OR [facility] N/A: Spine Cervical DE[employer] SP[employer] 1020-00-000 / / 60mm Rods Implanted:Qty : 2 on 01/20/2021 by Wyatt Ly MD at OR [facility] N/A: Spine Cervical DEPU[employer] INC 1020-64-060 / / 1cm X 5cm Magnifuse Posterior Cervical Bone Graft (Formerly Osteotech) Implanted:Qty : 1 on 03/15/2023 by Wyatt Ly MD at OR [facility] N/A: Spine Lumbar Medtronic Sofamor Danek [id number] 01/05/2025 [id number] / [id number] / LOT NA [address] Expandable Interbody System, Interbody Cage Implanted:Qty : 2 on 03/15/2023 by Wyatt Ly MD at OR [facility] N/A: Spine Lumbar Medtronic 03/08/2030 [id number] / / [id number] 6.5 X 45 Screw Implanted:Qty : 2 on 03/15/2023 by Wyatt Ly MD at OR [facility] N/A: Spine Lumbar Medtronic [id number] / / Description:No Exp. Date, us ed out of set 6.5 X 40 Screw Implanted:Qty : 2 on 03/15/2023 by Wyatt Ly MD at OR [facility] N/A: Spine Lumbar Medtronic [id number] / / Description:No Expiration da te, used out of set 7.5 X 40 Screw Implanted:Qty : 2 on 03/15/2023 by Wyatt Ly MD at OR [facility] N/A: Spine Lumbar Medtronic [id number] / / Description:No Expiration Da te, used out of set Screw Bone Ti Set Solera 4.75m - [id number] Implanted:Qty : 6 on 03/15/2023 by Wyatt Ly MD at OR [facility] N/A: Spine Lumbar MEDTRONIC [facility] INC [id number] / / Description:No Expiration Da te, used out of set Anthony [place] 4.75mm Pbent 55mm - [id number] Implanted:Qty : 2 on 03/15/2023 by Wyatt Ly MD at OR [facility] N/A: Spine Lumbar MEDTRONIC : NEUROLOGIC PAIN [id number] / / 10cc Mastergraft Biologic Matrix Ext Block Implanted:Qty : 1 on 03/15/2023 by Wyatt Ly MD at OR [facility] N/A: Spine Lumbar Medtronic Sofamor Danek [id number] 11/18/2025 [id number] / [id number] / [id number] Dbx 2.5cc 440835 - [id number] - [id number] Implanted:Qty : 1 on 03/15/2023 by Wyatt Ly MD at OR [facility] N/A: Spine Lumbar MUSCULOSKELETAL TRANSPLANT FND [id number] 08/04/2024 230988 / [id number] / LOT NA Dbx 2.5cc 743218 - [id number] - [id number] Implanted:Qty : 1 on 03/15/2023 by Wyatt Ly MD at OR [facility] N/A: Spine Lumbar MUSCULOSKELETAL TRANSPLANT FND [id number] 10/04/2024 115554 / [id number] / LOT NA Graft Bone Infuse Kit Xsmall - [id number] - [id number] Implanted:Qty : 1 on 03/15/2023 by Wyatt Ly MD at OR [facility] N/A: Spine Lumbar MEDTRONIC : NEUROLOGIC PAIN [id number] 07/20/2024 [id number] / [id number] / [id number] documented as of this encounter Visit Diagnoses Diagnosis Atypical chest pain- Primary Other chest pain Coronary artery disease involving [place] coronary artery of [place] heart without angina pectoris documented in this [...] Directives occurred with: Not Discussed Care Teams Machine Repairman Relationship Specialty Start Date End Date Shayan LATASHA, Cedric Estes MD [address] [facility], [place] [address] PCP - General Family Medicine 10/04/19 documented as of this encounter
== END 2023-11-09 14:39 | disposition home or self-care (01) ==
LOC: ED 20:23 → 1E 20:23

== ENCOUNTER 2024-12-27 16:34 | Inpatient (IN) ==
[2024-12-27 17:03] LABS: Basophils # (auto) 0.09 K/uL (0.00-0.20); Eosinophils # (auto) 0.15 K/uL (0.00-0.50); Eosinophils % (auto) 1.7 %; Hematocrit (blood only) 34.4 % (37.0-47.0); Hemoglobin 11.5 g/dl (12.0-16.0); Immature Granulocytes # (auto) 0.03 K/uL (0.01-0.20); Immature Granulocytes % (auto) 0.3 %; Lymphocytes # (auto) 2.78 K/uL (1.20-3.40); Mean Corpuscular Hemoglobin 30.1 pg (25.0-34.0); Mean Corpuscular Hgb Conc 33.4 g/dL (32.0-36.0); Mean Corpuscular Volume 90.1 fL (80.0-100.0); Monocytes # (auto) 0.75 K/uL (0.11-0.59); Monocytes % (auto) 8.4 %; Neutrophils # (auto) 5.18 K/uL (1.40-6.50); Neutrophils % (auto) 57.6 %; Platelet Count 209 K/uL (130-400); RDW Coefficient of Variation 12.7 % (11.5-14.5); RDW Standard Deviation 41.7 fL (36.4-46.3); Red Blood Count 3.82 M/uL (4.20-5.40); White Blood Count 8.98 K/ul (4.8-10.8)
--- NOTE | 2024-12-27 17:15 | Emergency Department Note ---
Impression & Plan Chest pain, Dizziness, Near syncope, Aortic mural thrombus ED Provider Note HISTORY OF PRESENT ILLNESS: Patient is a 74-year-old female presenting with chest pain and near syncope. Patient reports that at around 3 PM she developed left-sided chest pain and the became very lightheaded and dizzy. She describes this chest pain as sharp in nature and locates it to the left side of her chest. Denies any radiation into the back or into her abdomen. Reports associated shortness of breath and feeling like she was going to pass out. She reportedly felt like she was going to pass out and lowered herself to the ground. Denies striking her head or loss of consciousness. She is not on any anticoagulation or antiplatelet therapy. She was given 324 mg of aspirin and 3 nitro prehospital. On arrival to the ER, she is still complaining of left-sided chest pain but reports that has improved significantly in intensity. Denies any history of cardiac stents. Denies any DVT or PE history. ROS: as above PHYSICAL EXAM: Constitutional: Patient appears in no acute distress. HENT: Head: Normocephalic and atraumatic. Eyes: EOMI, PERRL Mouth/Throat: Mucous membranes moist. Neck: Trachea midline. Neck supple. Cardiovascular: RRR, No murmurs, rubs or gallops. Intact distal pulses. Pulmonary/Chest: No respiratory distress. Breath sounds clear and equal bilaterally. No wheezes or rales. Abdominal: Abdomen soft, no tenderness, rebound or guarding. Musculoskeletal: No edema, tenderness or deformity noted. Skin: Warm and dry. No rash, erythema, pallor or cyanosis Psychiatric: Appropriate mood and affect for situation. Neurological: Alert and keenly responsive. CN II-XII grossly intact, moving all extremities equally and fully. MDM: - Vitals signs stable. - History obtained via patient. History as above. - Chronic conditions affecting care: CHF; nonobstructive CAD/PVD; HTN; HLD; COPD; GERD - Differential diagnoses include, but are not limited to: Acute coronary syndrome; pulmonary embolism; dissection; tension pneumothorax; esophageal rupture; pneumonia - Order placed for continuous cardiac monitoring. At this time, monitor showed rate of 80 bpm with normal sinus rhythm, per my interpretation. - External medical records reviewed. Discharge summary dated 11/09/2023 was reviewed. Patient was admitted that time for chest pain and hypertension. - EKG image interpreted by myself showed normal sinus rhythm. Rate 75 bpm. QT 376. No acute ischemic changes. - Laboratory workup interpreted by myself showed normal WBC; normal PT/INR; stable electrolytes; normal troponin; normal lipase - CXR image reviewed by myself was negative for pneumonia, per my interpretation. Radiology reports increased vascular interstitial lung markings concerning for pulmonary congestion. - Patient allergic to IV contrast. Given IV solumedrol and benadryl for pretreatment - UA negative for infection - CT head wo contrast negative for acute pathology. - CTA chest was negative for PE. Noted to have atherosclerotic changes of the arch and descending aorta with mural thrombus causing 20-30% luminal narrowing. - Discussed case with vascular surgeon nutritionists, Dr. Khan, at 19:42. He reports that given the location of the mural thrombus in the descending aorta, it would not cause the patient's symptoms and reports there would be nothing to do for this. - Given patient's persistent chest pain, will admit for further workup. - Discussion was had with comp field case manager about patient's case and need for admission - Hospitalist, Dr. Ambrose, consulted for admission - [facility] ASSESSMENT AND PLAN: Diagnosis: chest pain; dizziness; near syncope; aortic mural thrombus Plan: admit Past Med/Surg History Problem List (Updated 12/27/24 @ 19:33 by Peace Arvizu MD) Aortic mural thrombus (Acute) Near syncope (Acute) Dizziness (Acute) Chest pain (Acute) Chest pain (Acute) HTN (hypertension) Postoperative anemia Weakness (Acute) Falling (Acute) Anemia (Acute) Acute head trauma (Acute) History of lumbar surgery (Acute) Hyponatremia (Acute) Lumbar spinal stenosis Ambulatory dysfunction Multiple falls HLD (hyperlipidemia) CKD (chronic kidney disease), stage III Nonobstructive atherosclerosis of coronary artery (2018) LAD and circumflex free of major disease. RCA with 40 to 50% mid right coronary stenosis and 40% stenosis at the takeoff of the PDA. Tobacco use (Chronic) GERD (gastroesophageal reflux disease) (Chronic) Diastolic dysfunction (Chronic) History of cholecystectomy (Chronic) History of hysterectomy (Chronic) Nocturnal hypoxia (Chronic) reported secondary to COPD. Pt not on home oxygen HS secondary to reported insurance issues Encounter for smoking cessation counseling (Acute) COPD (chronic obstructive pulmonary disease) (Chronic) Anxiety (Chronic) Osteoarthritis (Chronic) Osteoporosis (Chronic) Depression (Chronic) Medical History HTN (hypertension) Lumbar spinal stenosis Cervical spinal stenosis HLD (hyperlipidemia) CKD (chronic kidney disease), stage III Vasospastic angina NSTEMI (non-ST elevated myocardial infarction) Nonobstructive atherosclerosis of coronary artery (2018) LAD and circumflex free of major disease. RCA with 40 to 50% mid right coronary stenosis and 40% stenosis at the takeoff of the PDA. ACS (acute coronary syndrome) Tobacco use GERD (gastroesophageal reflux disease) Diastolic dysfunction Nocturnal hypoxia reported secondary to COPD. Pt not on home oxygen HS secondary to reported insurance issues Palpitation Depression Osteoporosis Osteoarthritis Anxiety COPD (chronic obstructive pulmonary disease) Surgical History History of section History of arthroscopy of right shoulder History of carpal tunnel surgery S/P cervical spinal fusion History of lumbar fusion History of cholecystectomy History of hysterectomy Family History Sister Breast cancer Aunt Breast cancer Father Coronary heart disease Brother Hypertension Father Hypertension Social History Smoking Status: Never smoker Tobacco Type: Cigarettes Second Hand Exposure: No; Do You Dip or Chew Tobacco: No; Hx Alcohol Use: No Hx Substance Use: No Preferred Language: Japanese Communication Ability: Effective Student Services Vice President Required: No Beliefs That Will Affect Care: None Current Living Situation: Alone Current Living Situation Comment: Apartment Feels Safe at Home: Yes Assistive Devices: Cane and Walker Allergies Allergies Allergy/AdvReac Type Severity Reaction Status Date / Time acetaminophen Allergy Severe Anaphylaxis Verified 11/07/23 23:50 chlorpheniramine Allergy Severe Anaphylaxis Verified 11/07/23 23:50 dextromethorphan Allergy Severe Anaphylaxis Verified 11/07/23 23:50 latex Allergy Mild RASH Verified 04/13/21 18:42 Iodinated Contrast Media Allergy Unknown . Verified 04/13/21 18:42 Penicillins Allergy Unknown Unknown Verified 04/13/21 18:42 varenicline AdvReac Severe NAUSEA Verified 04/13/21 18:42 benzalkonium chloride AdvReac Intermediate VERTIGO Verified 04/13/21 18:42 ibuprofen AdvReac Intermediate ACID REFLEX Verified 04/13/21 18:42 ofloxacin AdvReac Intermediate VERTIGO Verified 04/13/21 18:42 Corticosteroids AdvReac Unknown [email or web address] Verified 04/13/21 18:42 (Glucocorticoids) and hyper Home Meds Home Medications Medication Instructions Recorded Confirmed amitriptyline 10 mg tablet 20 mg PO HS 09/20/18 11/08/23 aspirin 81 mg tablet,delayed 81 mg PO QAM 09/20/18 11/08/23 release omeprazole 40 mg capsule,delayed 40 mg PO QAM 09/20/18 11/08/23 release sertraline 100 mg tablet 200 mg PO HS 09/20/18 11/08/23 calcium carbonate (Calcium 600) 600 mg PO QAM 01/02/19 11/08/23 alendronate 70 mg tablet 70 mg PO WK 11/05/19 11/08/23 ezetimibe 10 mg tablet (Zetia) 10 mg PO QAM 11/05/19 11/08/23 hydrochlorothiazide 12.5 mg capsule 12.5 mg PO MOWEFR 04/13/21 11/08/23 atorvastatin 80 mg tablet 80 mg PO QPM 04/10/23 11/08/23 galcanezumab-gnlm 120 mg/mL 120 mg subcut MONTHLY 04/10/23 11/08/23 subcutaneous pen injector (Emgality Pen) hydroxyzine HCl 25 mg tablet 25 mg PO Q6H PRN Anxiety 04/10/23 11/08/23 cyclobenzaprine 5 mg tablet 5 mg PO HS PRN Muscle Spasm 04/22/23 11/08/23 nitroglycerin 0.4 mg sublingual 0.4 mg sublingual UD PRN Other 04/22/23 11/08/23 tablet tizanidine 4 mg tablet 4 mg PO Q8H PRN Spasms 04/22/23 11/08/23 umeclidinium 62.5 mcg-vilanterol 1 inh inhalation QAM 04/22/23 11/08/23 25 mcg/actuation powdr for inhalation (Anoro Ellipta) Previous Rx's Medication Instructions Recorded acetaminophen 325 mg tablet 650 mg (2 x 325 mg) PO Q8H #1 tab 04/12/23 gabapentin 300 mg capsule 300 mg PO BID17 #14 caps 04/12/23 gabapentin 600 mg tablet 600 mg PO HS #14 tabs 04/12/23 hydrocodone 5 mg-acetaminophen 325 1 tab PO Q8H PRN pain 1 day #1 tab 04/12/23 mg tablet isosorbide mononitrate 30 mg 30 mg PO QAM #30 tabs 11/09/23 tablet,extended release 24 hr lisinopril 2.5 mg tablet 2.5 mg PO QAM #30 tabs 11/09/23 Results & Data (ED) Vital Signs Vital Signs - 24 hr 12/27/24 16:34 12/27/24 16:54 12/27/24 17:00 Temperature 36.9 C Temperature Source Oral Pulse Rate 77 76 76 Pulse Rate [Apical] Pulse Rhythm Regular Respiratory Rate 16 16 Respiratory Effort / Characteristics Non-Labored Respiratory Depth Normal Respiratory Pattern Regular Blood Pressure 121/51 L Blood Pressure [Right Arm] Blood Pressure Mean 74 Blood Pressure Mean [Right Arm] Blood Pressure Position [Right Arm] Pulse Oximetry 93 93 Oxygen Delivery Method Room Air Room Air Sepsis Recent Fever Within 48 Hours No Sepsis New/Unexplained Change in Mental Status N/A Sepsis Action Taken by Nursing No Action Required 12/27/24 17:31 12/27/24 18:30 12/27/24 18:51 Temperature Temperature Source Pulse Rate Pulse Rate [Apical] Pulse Rhythm Respiratory Rate Respiratory Effort / Characteristics Respiratory Depth Respiratory Pattern Blood Pressure Blood Pressure [Right Arm] 114/53 L 128/68 Blood Pressure Mean Blood Pressure Mean [Right Arm] 73 88 Blood Pressure Position [Right Arm] Semi-fowlers Pulse Oximetry 94 Oxygen Delivery Method Room Air Sepsis Recent Fever Within 48 Hours Sepsis New/Unexplained Change in Mental Status Sepsis Action Taken by Nursing 12/27/24 18:51 Temperature Temperature Source Pulse Rate Pulse Rate [Apical] 65 Pulse Rhythm Respiratory Rate 20 Respiratory Effort / Characteristics Non-Labored Spontaneous Respiratory Depth Normal Respiratory Pattern Regular Blood Pressure Blood Pressure [Right Arm] Blood Pressure Mean Blood Pressure Mean [Right Arm] Blood Pressure Position [Right Arm] Pulse Oximetry 94 Oxygen Delivery Method Room Air Sepsis Recent Fever Within 48 Hours Sepsis New/Unexplained Change in Mental Status Sepsis Action Taken by Nursing Laboratory Data 12/27/24 16:45 12/27/24 16:45 Lab Results 12/27/24 12/27/24 Range/Units 16:45 18:55 WBC 8.98 (4.8-10.8) K/ul RBC 3.82 L (4.20-5.40) M/uL Hgb 11.5 L (12.0-16.0) g/dl Hct 34.4 L (37.0-47.0) % MCV 90.1 (80.0-100.0) fL MCH 30.1 (25.0-34.0) pg MCHC 33.4 (32.0-36.0) g/dL RDW Std Deviation 41.7 (36.4-46.3) fL RDW Coeff of Melany 12.7 (11.5-14.5) % Plt Count 209 (130-400) K/uL MPV 10.0 (9.4-12.4) fL Immature Gran % (Auto) 0.3 % Neut % (Auto) 57.6 % Lymph % (Auto) 31.0 % [place] % (Auto) 8.4 % Eos % (Auto) 1.7 % Baso % (Auto) 1.0 % Neut # (Auto) 5.18 (1.40-6.50) K/uL Lymph # (Auto) 2.78 (1.20-3.40) K/uL [place] # (Auto) 0.75 H (0.11-0.59) K/uL Eos # (Auto) 0.15 (0.00-0.50) K/uL Baso # (Auto) 0.09 (0.00-0.20) K/uL Immature Gran # (Auto) 0.03 (0.01-0.20) K/uL PT 10.5 (9.0-12.0) Seconds INR 1.0 (0.9-1.1) Sodium 138 (136-145) mmol/L Potassium 3.8 (3.5-5.1) mmol/L Chloride 107 (98-107) mmol/L Carbon Dioxide 27 (21-32) mmol/L Anion Gap 4 (3-11) BUN 19 (6-23) mg/dl Creatinine 0.98 (0.6-1.2) mg/dl Est Cr Clr Drug Dosing 42.8 ml/min eGFR 60.57 BUN/Creatinine Ratio 19.4 (10-20) Glucose 129 H (70-99(Fasting)) mg/dl Calcium 9.3 (8.6-10.3) mg/dl Magnesium 1.7 (1.7-2.4) mg/dl Total Bilirubin 0.3 (0.2-1.0) mg/dl AST 16 (13-39) U/L ALT 12 (7-52) U/L Alkaline Phosphatase 85 (34-104) U/L Troponin I High Sens < 2.3 (0-14) pg/ml Total Protein 7.1 (6.0-8.3) gm/dl Albumin 3.9 (3.4-5.0) gm/dl Globulin 3.2 (2.5-4.0) gm/dl Albumin/Globulin Ratio 1.2 (0.9-2) Lipase 25 (11-82) U/L Urine Color Yellow Urine Appearance Clear (Clear) Urine pH 5.0 (4.5-7.5) Ur Specific Trail 1.045 H (1.000-1.030) Urine Protein Negative (Negative) Urine Glucose (UA) Negative (Negative) Urine Ketones Trace H (Negative) Urine Blood Negative (Negative) Urine Nitrite Negative (Negative) Urine Bilirubin Negative (Negative) Urine Urobilinogen Negative (Negative) Ur Leukocyte Esterase Negative (Negative) Administered Medications Discontinued Medications Diphenhydramine HCl (Diphenhydramine 50 Mg/Ml Vial) 50 mg IV ONE ONE Stop: 12/27/24 17:13 Last Admin: 12/27/24 17:52 Dose: 50 mg Documented By: FAVIOLA Ioversol (Optiray 320 125ml) 119 ml IV ONCE ONE Stop: 12/27/24 17:38 Last Admin: 12/27/24 17:39 Dose: 119 ml Documented By: HOLLEY Methylprednisolone (Methylprednisolone 125 Mg/2 Ml Vial) 40 mg IV NOW ONE Stop: 12/27/24 17:13 Last Admin: 12/27/24 17:52 Dose: 40 mg Documented By: FAVIOLA Imaging Data Radiologist's Impression: Chest X-Ray 12/27/24 16:40 EXAM: XR chest 1V portable CLINICAL HISTORY: Near syncope. TECHNIQUE: An X-ray image of the chest is obtained in PA projection. COMPARISON: X-ray dated 02/23/2024. FINDINGS: Pulmonary Parenchyma: Exaggerated vascular and interstitial lung markings bilaterally. No evidence of consolidation, collapse, or focal opacities. No pulmonary nodules are identified. No evidence of pleural effusion or pleural thickening. Heart and Mediastinum: Heart size and shape are normal. No mediastinal widening or masses. No hilar or mediastinal lymphadenopathy. Prominent aortic arch with vascular calcification. Bony Thorax: Degenerative changes of the spine and left shoulder joint. Widening of the right acromioclavicular joint. Internal fixation of the cervical spine. Overall, no significant changes. Soft Tissues: Soft tissues overlying the chest wall are unremarkable. IMPRESSION: 1. Exaggerated vascular and interstitial lung markings bilaterally raising suspicion of pulmonary congestion. Correlate with clinical findings. 2. No interval changes. Electronically signed by Tex Pacheco 12-27-2024 5:54 PM Chest CTA 12/27/24 17:12 EXAM: CT angio chest dissec wo/w con CLINICAL HISTORY: chest pain with near syncope. TECHNIQUE: CT angiography of the chest was performed with and without intravenous contrast with the following protocol: axial images with, reconstructed coronal and sagittal images. Non-contrast images were initially acquired, followed by contrast-enhanced images in arterial and venous phases. Intravenous contrast 119 ml Opti 320 was administered using automated injection techniques. Bolus tracking was employed to optimize arterial phase imaging. One of these 3D techniques was utilized: Maximum Intensity Pixel (MIP), 3D Reconstructed Images, Volume Rendered Images, Surface Shaded Rendering. One of the following dose reduction techniques was utilized for this exam: Automated exposure control, adjustment of the mA and/or kV according to patient size, and use of iterative reconstruction. CTDI 25.37 mGy, DLP: 831.91 mGy-cm COMPARISON: 02/23/2024. FINDINGS: Aorta and Great Vessels: Ascending Aorta: Normal in caliber, no aneurysm or dissection. Atherosclerotic changes are noted. Aortic Arch: Normal in caliber, no aneurysm, dissection, or significant atherosclerosis. Descending Aorta: Normal in caliber, no aneurysm or dissection. Atherosclerotic changes with mural thrombosis cause about 20-30% luminal narrowing. Pulmonary Arteries: The main pulmonary artery and its branches are patent. No evidence of pulmonary embolism or significant stenosis. Heart: Cardiac Chambers: Normal in size. No evidence of cardiomegaly. Pericardium: No pericardial effusion or thickening. Lungs and Pleura: No evidence of consolidation, collapse, or focal lesions. [id number] Small air cysts are seen at the right upper /[id number] left lower lung lobes. /OBX.5.1.2/OBX.5.1 Bilateral basal pulmonary atelectatic bands. No pleural effusion or pleural thickening. Mediastinum: No mediastinal mass or abnormal lymphadenopathy. Normal appearance of the trachea and central bronchi. Hilar Structures: Hilar structures are normal without enlargement. Chest Wall: No mass lesions or abnormalities in the chest wall. Vascular Structures: Superior Vena Cava: Patent without evidence of stenosis or thrombus. Inferior Vena Cava: Patent without evidence of stenosis or thrombus. Bones and Soft Tissues: No fractures, lytic, or blastic lesions of the visualized bony structures. Soft tissues are unremarkable. Spondyldoegenrative changes . Spinal fixation of the lower cervical spine. The upper abdomen shows A subcentimetric hepatic cyst. Cholecystectomy. IMPRESSION: 1. No pulmonary embolism. 2. 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 cause about 20-30% luminal narrowing. 3. No interval changes. Electronically signed by Tex Pacheco 12-27-2024 7:[address] 12/27/24 17:12 EXAM: CT head/brain wo con CLINICAL HISTORY: dizziness TECHNIQUE: Axial non-contrast CT scan of the brain was performed from the skull base to the high parietal region. One of the following dose reduction techniques were utilized for this exam: Automated exposure control, adjustment of the mA and/or kV according to patient size, use of iterative reconstruction. DLP: 2306.1 mGy.cm. COMPARISON: prior 04/10/2023 FINDINGS: No intracerebral hematoma or mass effect or territorial infarction There are few tiny ill-defined iso-to hypodense areas noted in the periventricular white matter bilaterally, suggestive of microvascular ischemic changes. The ventricular system, cortical sulci and basal cisterns are prominent, consistent with senile changes. The rest of the visualized brain parenchyma shows normal appearance. Cheung-white matter differentiation is maintained. No midline shifts or deformity. Normal CT appearance of the posterior fossa structures, namely the cerebellar hemispheres, brainstem and cerebellar peduncles. The cerebello-pontine angles are clear. The osseous structures in the skull base are unremarkable. No definite calvarium fractures. The scanned paranasal sinuses are clear. IMPRESSION: 1. No acute abnormalities. 2. Microvascular ischemic changes and senile changes. 3. No time interval changes Electronically signed by Tex Pacheco 12-27-2024 7:40 PM Discharge Plan Visit Data Chief Complaint: Cardiac Assessment Stated Complaint: SYNCOPE ED Provider: Peace Arvizu Discharge Problem: Chest pain, Dizziness, Near syncope, Aortic mural thrombus Condition: Fair Forms Stand Alone Forms: My [facility] Prescriptions Prescriptions: No Action alendronate 70 mg tablet 70 mg PO WK Rx Instructions: Monday ezetimibe [Zetia] 10 mg tablet 10 mg PO QAM sertraline 100 mg tablet 200 mg PO HS omeprazole 40 mg capsule,delayed release(DR/EC) 40 mg PO QAM aspirin 81 mg Tablet,Delayed Release (Dr/Ec) 81 mg PO QAM amitriptyline 10 mg tablet 20 mg PO HS calcium carbonate [Calcium 600] 600 mg calcium (1,500 mg) Tablet 600 mg PO QAM hydrochlorothiazide 12.5 mg capsule 12.5 mg PO MOWEFR hydroxyzine HCl 25 mg tablet 25 mg PO Q6H PRN (Reason: Anxiety) Emgality Pen 120 mg/mL pen injector 120 mg subcut MONTHLY atorvastatin 80 mg tablet 80 mg PO QPM acetaminophen 325 mg Tablet 650 mg PO Q8H Qty: 1 0RF gabapentin 600 mg Tablet 600 mg PO HS Qty: 14 0RF gabapentin 300 mg Capsule 300 mg PO BID17 Qty: 14 0RF hydrocodone-acetaminophen 5-325 mg tablet 1 tab PO Q8H PRN (Reason: pain) 1 Days Qty: 1 0RF tizanidine 4 mg tablet 4 mg PO Q8H PRN (Reason: Spasms) cyclobenzaprine 5 mg tablet 5 mg PO HS PRN (Reason: Muscle Spasm) Anoro Ellipta 62.5-25 mcg/actuation blister with device 1 inh INHALATION QAM nitroglycerin 0.4 mg tablet, sublingual 0.4 mg sublingual UD PRN (Reason: Other) Rx Instructions: 1 tab sl as needed for cp isosorbide mononitrate 30 mg Tablet Extended Release 24 Hr 30 mg PO QAM Qty: 30 1RF lisinopril 2.5 mg Tablet 2.5 mg PO QAM Qty: 30 1RF Referrals Referrals: Cedric Downey MD [Primary Care Provider] -
[2024-12-27 17:21] LABS: Alanine Aminotransferase 12 U/L (7-52); Albumin Globulin Ratio 1.2 (0.9-2); Albumin Level 3.9 gm/dl (3.4-5.0); Alkaline Phosphatase 85 U/L (34-104); Anion Gap 4 (3-11); Aspartate Aminotransferase 16 U/L (13-39); BUN Creatinine Ratio 19.4 (10-20); Bilirubin,Total 0.3 mg/dl (0.2-1.0); Blood Urea Nitrogen 19 mg/dl (6-23); Calcium 9.3 mg/dl (8.6-10.3); Carbon Dioxide 27 mmol/L (21-32); Chloride 107 mmol/L (98-107); Creatinine Clr Calc Pharmacy 42.8 ml/min; Globulin 3.2 gm/dl (2.5-4.0); Glucose 129 mg/dl (70-99(Fasting)); Lipase 25 U/L (11-82); Magnesium 1.7 mg/dl (1.7-2.4); Potassium 3.8 mmol/L (3.5-5.1); Sodium 138 mmol/L (136-145); Total Protein 7.1 gm/dl (6.0-8.3)
[2024-12-27 17:27] LABS: Troponin I High Sensitivity < 2.3 pg/ml (0-14)
[2024-12-27 17:38] LABS: Prothrombin Time 10.5 Seconds (9.0-12.0)
[2024-12-27] MEDS: OPTIRAY 320 125ml IV ONE (17:39)
[2024-12-27] MEDS: diphenhydrAMINE 50 MG/ML VIAL IV ONE (17:52)
[2024-12-27] MEDS: methylPREDNISolone 125 MG/2 ML VIAL IV ONE (17:52)
--- NOTE | 2024-12-27 17:54 | XRay Report ---
EXAM: XR chest 1V portable CLINICAL HISTORY: Near syncope. TECHNIQUE: An X-ray image of the chest is obtained in PA projection. COMPARISON: X-ray dated 02/23/2024. FINDINGS: Pulmonary Parenchyma: Exaggerated vascular and interstitial lung markings bilaterally. No evidence of consolidation, collapse, or focal opacities. No pulmonary nodules are identified. No evidence of pleural effusion or pleural thickening. Heart and Mediastinum: Heart size and shape are normal. No mediastinal widening or masses. No hilar or mediastinal lymphadenopathy. Prominent aortic arch with vascular calcification. Bony Thorax: Degenerative changes of the spine and left shoulder joint. Widening of the right acromioclavicular joint. Internal fixation of the cervical spine. Overall, no significant changes. Soft Tissues: Soft tissues overlying the chest wall are unremarkable. IMPRESSION: 1. Exaggerated vascular and interstitial lung markings bilaterally raising suspicion of pulmonary congestion. Correlate with clinical findings. 2. No interval changes. Electronically signed by Tex Pacheco 12-27-2024 5:54 PM
[2024-12-27 19:21] LABS: Appearance Urine Clear (Clear); Bilirubin Urine Negative (Negative); Blood Urine Negative (Negative); Color Urine Yellow; Glucose Urine UA Negative (Negative); Ketones Urine Trace (Negative); Leukocyte Esterase Urine Negative (Negative); Nitrite Urine Negative (Negative); Protein Urine Negative (Negative); Specific Gravity Urine 1.045 (1.000-1.030); Urobilinogen Urine Negative (Negative)
--- NOTE | 2024-12-27 19:25 | CT Scan Report ---
EXAM: CT angio chest dissec wo/w con CLINICAL HISTORY: chest pain with near syncope. TECHNIQUE: CT angiography of the chest was performed with and without intravenous contrast with the following protocol: axial images with, reconstructed coronal and sagittal images. Non-contrast images were initially acquired, followed by contrast-enhanced images in arterial and venous phases. Intravenous contrast 119 ml Opti 320 was administered using automated injection techniques. Bolus tracking was employed to optimize arterial phase imaging. One of these 3D techniques was utilized: Maximum Intensity Pixel (MIP), 3D Reconstructed Images, Volume Rendered Images, Surface Shaded Rendering. One of the following dose reduction techniques was utilized for this exam: Automated exposure control, adjustment of the mA and/or kV according to patient size, and use of iterative reconstruction. CTDI 25.37 mGy, DLP: 831.91 mGy-cm COMPARISON: 02/23/2024. FINDINGS: Aorta and Great Vessels: Ascending Aorta: Normal in caliber, no aneurysm or dissection. Atherosclerotic changes are noted. Aortic Arch: Normal in caliber, no aneurysm, dissection, or significant atherosclerosis. Descending Aorta: Normal in caliber, no aneurysm or dissection. Atherosclerotic changes with mural thrombosis cause about 20-30% luminal narrowing. Pulmonary Arteries: The main pulmonary artery and its branches are patent. No evidence of pulmonary embolism or significant stenosis. Heart: Cardiac Chambers: Normal in size. No evidence of cardiomegaly. Pericardium: No pericardial effusion or thickening. Lungs and Pleura: No evidence of consolidation, collapse, or focal lesions. [id number] Small air cysts are seen at the right upper /OBX.5.1.1OBX.5.1.2 left lower lung lobes. /OBX.5.1.2/OBX.5.1 Bilateral basal pulmonary atelectatic bands. No pleural effusion or pleural thickening. Mediastinum: No mediastinal mass or abnormal lymphadenopathy. Normal appearance of the trachea and central bronchi. Hilar Structures: Hilar structures are normal without enlargement. Chest Wall: No mass lesions or abnormalities in the chest wall. Vascular Structures: Superior Vena Cava: Patent without evidence of stenosis or thrombus. Inferior Vena Cava: Patent without evidence of stenosis or thrombus. Bones and Soft Tissues: No fractures, lytic, or blastic lesions of the visualized bony structures. Soft tissues are unremarkable. Spondyldoegenrative changes . Spinal fixation of the lower cervical spine. The upper abdomen shows A subcentimetric hepatic cyst. Cholecystectomy. IMPRESSION: 1. No pulmonary embolism. 2. 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 cause about 20-30% luminal narrowing. 3. No interval changes. Electronically signed by Tex Pacheco 12-27-2024 7:25 PM
--- NOTE | 2024-12-27 19:43 | CT Scan Report ---
EXAM: CT head/brain wo con CLINICAL HISTORY: dizziness TECHNIQUE: Axial non-contrast CT scan of the brain was performed from the skull base to the high parietal region. One of the following dose reduction techniques were utilized for this exam: Automated exposure control, adjustment of the mA and/or kV according to patient size, use of iterative reconstruction. DLP: 2306.1 mGy.cm. COMPARISON: prior 04/10/2023 FINDINGS: No intracerebral hematoma or mass effect or territorial infarction There are few tiny ill-defined iso-to hypodense areas noted in the periventricular white matter bilaterally, suggestive of microvascular ischemic changes. The ventricular system, cortical sulci and basal cisterns are prominent, consistent with senile changes. The rest of the visualized brain parenchyma shows normal appearance. Cheung-white matter differentiation is maintained. No midline shifts or deformity. Normal CT appearance of the posterior fossa structures, namely the cerebellar hemispheres, brainstem and cerebellar peduncles. The cerebello-pontine angles are clear. The osseous structures in the skull base are unremarkable. No definite calvarium fractures. The scanned paranasal sinuses are clear. IMPRESSION: 1. No acute abnormalities. 2. Microvascular ischemic changes and senile changes. 3. No time interval changes Electronically signed by Tex Pacheco 12-27-2024 7:40 PM
--- OUTSIDE RECORDS SUMMARY | 2024-12-27 20:15 | External Medical Summary | Summary of Care ---
Author Name Unknown Organization [facility] Address [address] [place] [address] Phone [phone] Care Team Providers Care Airfield Engineer Officer Name Role Phone Hannah Ospina MD Primary Care Provider [phone] Reason for Visit * Reason Onset Date Comments Care Plan Oversight 12/25/2024 Encounter Details Date Type Department Care Team (Late st Contact Info) Description 12/25/2024 Telephone [facility], [facility] [address] [place] [address] Rochelle Gaines, ECG TECHNICIAN [address] [place] [address] Care Plan Oversight Allergies Active Allergy Reactions Criticality Noted Date Comments Varenicline 12/11/2014 nausea Corticosteroids Other (Please comment) Medium 12/27/2013 Hyper, Mental Status Changes on oral steroids Dm-Apap-Cpm Anaphylaxis,Other (Please comment) High 12/27/2013 Contact dermatitis Ibuprofen Other (Please comment) Low 12/27/2013 Affects acid reflux Iodinated Contrast Media Hives 10/08/2007 Penicillins 10/09/2007 Rash documented as of this encounter (statuses as of 12/26/2024) Medications ASPIRIN 81 MG PO TABSIndications:Ca n be restarted after 7 days post surgery 1 tablet by mouth daily Active Calcium Carbonate 600 MG Oral Tablet Take 1 Tablet by mouth 2 times a day with morning and evening meals. 60 Tab 5 09/03/19 16 Active Acetaminophen ER 650 MG Oral Tablet Extended Release (Tylenol 8 Hour) Take 2 Tablets by mouth 2 times a day 30 minutes before morning and evening meals. 100 Tablet 8 06/30/20 21 Active hydrOXYzine HCl 25 MG Oral Tablet Take 1 Tablet by mouth every 6 hours as needed for Anxiety. 30 Tablet 2 10/11/19 24 Active Isosorbide Mononitrate ER 30 MG Oral Tablet Extended Release 24 Hour (Imdur) Take 1 Tablet by mouth in the morning. Active Atorvastatin Calcium 80 MG Oral Tablet (Lipitor)Indicatio ns:Mixed hyperlipidemia TAKE 1 TABLET BY MOUTH EVERY DAY IN THE MORNING 90 Tablet 3 02/14/20 24 Active Omeprazole 40 MG Oral Capsule Delayed Release (PriLOSEC)Indicati ons:Gastroesophage al reflux disease with esophagitis TAKE 1 CAPSULE BY MOUTH EVERY DAY 100 Capsule 3 03/13/20 24 Active Albuterol Sulfate (2.5 MG/3ML) 0.083% Inhalation Nebulization Solution (Proventil) Inhale 1 Vial via nebulizer every 4 hours as needed for Wheezing. 05/01/20 24 Active Ezetimibe 10 MG Oral Tablet (Zetia) Take 1 Tablet by mouth in the morning. 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 30 Capsule 5 05/24/20 24 Active Gabapentin 300 MG Oral Capsule (Neurontin) Take 1 Capsule by mouth 2 times a day. 06/21/20 24 Active Albuterol Sulfate HFA 108 (90 Base) MCG/ACT Inhalation Aerosol SolutionIndication s:COPD, moderate (HCC) INHALE 2 PUFFS BY MOUTH EVERY 4 HOURS NEEDED FOR WHEEZING OR SHORTNESS OF BREATH. 18 g 1 08/15/20 24 Active Stiolto Respimat 2.5-2.5 MCG/ACT Inhalation Aerosol Solution (Tiotropium-Olodat sherita)Indications:C OPD (chronic obstructive pulmonary disease) with chronic bronchitis (HCC) Inhale 2 Puffs by mouth in the morning. 4 g 1 09/10/19 25 Active Additional Information Patient not taking.Reported on 12/20/2024 Amitriptyline HCl 10 MG Oral Tablet (Elavil) TAKE 2 TABLETS BY MOUTH AT BEDTIME 180 Tablet 2 10/03/19 25 Active Nitroglycerin 0.4 MG Sublingual Tablet Sublingual (Nitrostat)Indicat ions:Chest pain, unspecified type Take 1 tab sublingual as needed for chest pain 25 Tablet 1 11/27/19 25 Active tiZANidine HCl 4 MG Oral Tablet (Zanaflex)Indicati ons:Cervical spinal stenosis TAKE 1 TABLET BY MOUTH EVERY 8 HOURS NEEDED FOR MUSCLE SPASM 30 Tablet 5 11/29/19 25 Active Sertraline HCl 100 MG Oral Tablet (Zoloft) TAKE 2 TABLETS BY MOUTH AT BEDTIME 180 Tablet 1 11/29/19 25 Active HYDROcodone-Acetam inophen 5-325 MG Oral TabletIndications: Generalized osteoarthrosis, involving multiple sites Take 1 Tablet by mouth every 6 hours as needed for Pain, Moderate or Pain, Severe. Max 2 per day 60 Tablet 12/14/19 25 Active Furosemide 40 MG Oral Tablet (Lasix) Take 0.5 Tablets by mouth once a day on Monday, Monday, and Monday only. 12/21/19 25 Active Hospital, Clinic, or Other Facility Administered Medication Ordered Dose Route Frequency Start Date End Date Status botulinum toxin type a (Botox) inj 200 UnitsIndications:Intractabl e chronic migraine without aura and without status migrainosus 200 Units IM [id number] 09/25/2024 08/27/2025 Active documented as of this encounter (statuses as of 12/26/2024) Active Problems Problem Noted Date Diagnosed Date Chronic heart failure with preserved ejection fr action 09/11/2024 Assessment & Plan (09/11/2024 3:06 PM EST): "RED FLAG" HF Symptoms: Leg Swelling Medication Regimen: Beta Juan Miguel Therapy: Metoprolol Succinate (ER) MONA Inhibitor/ARB Therapy: No MONA/ARB/ARNI Diuretic therapy: Lasix SGLT2 Inhibitor: No Current SGLT2 (Describe in the Comments) Remote Patient Monitoring Vendor: No Connected RPM Device(s): Traditional Scale Self - Management Plan Double dose of Furosemide for 3 days Exacerbation Plan CMP Pro-BNP Additional Comments: Stable today. Takes furosemide twice weekly only Flank pain 09/11/2024 Assessment & Plan (09/11/2024 3:06 PM EST): Her pain is very suspicious to be musculoskeletal in nature since it is painful with palpation by CHW. She will get CT completed on Monday and follow up with her PCP. Insomnia 09/11/2024 Assessment & Plan (09/11/2024 3:06 PM EST): Discussed sleep hygiene today. Recommended against sleeping during the day so that her body is ready to sleep at night. She will try to avoid napping today and go to bed around 7 or 8 to see if she can sleep through the night. She will follow up with PCP with any persistent symptoms. Dysphagia 06/18/2024 Assessment & Plan (06/18/2024 12:11 PM EDT): PCP treated for aspiration pnx 06/03/24--reported problems swallowing pills or getting stuck in throat. EGD ordered and scheduled in Sep. Hypertension goal BP (blood pressure) < 140/90 0 05/09/2024 COPD (chronic obstructive pu lmonary disease) with chronic bronchitis 03/02/2024 Assessment & Plan (09/11/2024 3:06 PM EST): "RED FLAG" COPD symptoms: Increased shortness of breath at rest Cough Medication Regimen All Classes - FRIDA Class B, C, D - LAMA Remote Patient Monitoring Vendor: No Connected RPM Device(s): Traditional Scale Self-Management plan High frequency nebulizer treatments every 4-6 hours around the clock Exacerbation plan Chest Xray Additional Comments: Stable today Assessment & Plan (05/01/2024 12:40 PM EDT): "RED FLAG" COPD symptoms: Increased shortness of breath at rest Cough Medication Regimen Class A - KATLYN-FRIDA Combination Inhaler Remote Patient Monitoring Vendor: [facility] Device(s): Connected Scale Self-Management plan High frequency nebulizer treatments every 4-6 hours around the clock Exacerbation plan Solumedrol 40mg IM/IV Chest Xray Additional Comments: Stable today. She reports Xopenex did not help her at all in the past. She started to use 1/2 of a vial of her albuterol and this resolves any wheezing she experiences and does not produce palpitations. Moderate episode of recurrent major depressive d isorder 01/23/2024 Assessment & Plan (01/23/2024 4:07 PM EDT): Positive PHQ-9 screening. Denies suicidal ideation. Given behavioral health Case Management number to return call. Patient is willing to have counseling as well as see a psychiatrist for med management. She is on sertraline 200 mg and amitriptyline at night. 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 Reminded to discuss further with Cardiology that she has not completed her ZIO or her stress test. Her reports of chest pain occur only and stressful situations-interaction with her mother. Continues isosorbide, ASA, metoprolol and atorvastatin Assessment & Plan (05/01/2024 12:39 PM EDT): Per inpatient cardiology consult 11/07--pt to continue metoprolol. Rx sent. Continue atorvastatin, asa and isosorbide. Assessment & Plan (11/26/2023 8:24 AM EDT): Per inpatient cardiology consult 11/07--pt to continue metoprolol. Rx sent. Continue atorvastatin, asa and isosorbide. Stress test scheduled for 12/22/23 Adjustment disorder with anxious mood 11/26/2023 Migraine without status migrainosus, not intract able 04/25/2023 Assessment & Plan (09/11/2024 3:06 PM EST): Followed by Neurology in his had Botox injections. Assessment & Plan (08/01/2023 6:26 PM EST): Not needed Emgality for several months Major depressive disorder, r ecurrent episode, in partial remission 04/25/2023 Assessment & Plan (08/01/2023 6:56 PM EST): Continue with zoloft Lumbar spinal stenosis 03/15/2023 Assessment & Plan (09/11/2024 3:06 PM EST): She is followed by orthopedic spine surgery with an appointment next week. Suspect her left leg pain could be slightly increased due to reduction in her gabapentin. She will further discuss with surgeon next week Assessment & Plan (08/01/2023 8:02 AM EST): S/p surgery, doing well . Assessment & Plan (04/25/2023 2:49 PM EDT): S/p surgery, doing well post op. Is on keflex for possible incision infection, seen by ortho last week but patient says incision looks good. Cervical spinal stenosis 01/23/2021 Stage 3b chronic kidney disease (CKD) 08/28/2020 Overview: Per CKD protocol Nocturnal hypoxemia due to emphysema 03/15/2019 Overview (03/15/2019): nocturnal hypoxemia secondary to COPD. - PSG 03/12/17: AHI 0.2, mean 88%, <89% 146 mins, TST 366 mins Assessment & Plan (08/01/2023 6:25 PM EST): Still no oxygen... Assessment & Plan (04/25/2023 2:36 PM EDT): Not on oxygen, she never got the prescription? No follow up. She will talk to her PCP. Not sleeping well, this could be why ARVIND (generalized anxiety disorder) 05/21/2018 Age-related osteoporosis wit hout current pathological fracture 09/10/2015 Overview (09/10/2015): Fosamax started 09/10/15 DEXA: 2016: S/H: -2.7/-2.2 - high risk Assessment & Plan (09/11/2024 3:06 PM EST): Rheumatology 07/04/2024-follow up with the osteoporosis-continue drug holiday Dyslipidemia, goal LDL below 70 Generalized osteoarthrosis, involving multiple s ites Gastroesophageal reflux disease without esophagi tis Overview (10/25/2016): EGD 10/25/16: normal EGD 04/15/15: normal esophagus, + gastric erythema: bx pending documented as of this encounter (statuses as of 12/26/2024) Resolved Problems Problem Noted Date Diagnosed Date Resolved Date History of [place] (myocardial infarction) 04/25/2023 09/10/2024 Syncope 04/25/2023 01/22/2024 Assessment & Plan (04/25/2023 2:47 PM EDT): Has had several syncopal episodes since her [...] to call 911 with repeat syncopal epsiodes Hypomagnesemia 04/25/2023 08/01/2023 Assessment & Plan (04/25/2023 4:20 PM EDT): Mild, in ED on Monday it was 1.6. previous labs as follows: Latest Reference Range & Units 01/29/20 12:15 08/31/20 09:43 03/10/23 12:00 03/18/23 05:57 03/19/23 06:24 03/20/23 03:54 Magnesium 1.5 - 2.6 mg/dL 2.1 2.1 2.0 2.3 2.2 2.2 No oral replacement currently Hypertensive heart and chron ic kidney disease with chronic diastolic congestive heart failure 04/13/2023 12/10/2024 Assessment & Plan (06/18/2024 12:12 PM EDT): "RED FLAG" HF Symptoms: NO IDENTIFIED SYMPTOMS Medication Regimen: Beta Juan Imguel Therapy: Metoprolol Succinate (ER) MONA Inhibitor/ARB Therapy: No MONA/ARB/ARNI Diuretic therapy: No diuretic secondary to d/c by pcp SGLT2 Inhibitor: No Current SGLT2 (Describe in the Comments) Remote Patient Monitoring Vendor: [employer] Device(s): Connected Scale Self - Management Plan Other/Additional Comments: restart lasix daily Exacerbation Plan Anticipated IV Lasix dose: 40 mg BMP Chest X-Ray Additional Comments: Euvolemic today. Nephrology 05/17/24--new [id number]--[id number] decline in renal function with lasix and was stopped, no edema since that time. Assessment & Plan (05/01/2024 12:39 PM EDT): "RED FLAG" HF Symptoms: NO IDENTIFIED SYMPTOMS Medication Regimen: Beta Juan Miguel Therapy: Metoprolol Succinate (ER) MONA Inhibitor/ARB Therapy: No MONA/ARB/ARNI Diuretic therapy: No diuretic secondary to d/c by pcp SGLT2 Inhibitor: No Current SGLT2 (Describe in the Comments) Remote Patient Monitoring Vendor: [employer] Device(s): Connected Scale Self - Management Plan Other/Additional Comments: restart lasix daily Exacerbation Plan Anticipated IV Lasix dose: 40 mg BMP Chest X-Ray Additional Comments: Euvolemic today. She admits she has not been checking weight daily. Diuretic stopped by PCP since it was not helping her leg swelling that was felt to be secondary to venous insufficiency. Patient reported she had continued to take her Lasix. Was also continuing to take her gabapentin 200 mg q.h.s.. She will stop Lasix and reduced gabapentin dose per PCP instruction and keep her follow up appointment 05/09 for further eval. Assessment & Plan (11/26/2023 8:31 AM EDT): BP at goal--at this time only on lisinopril. She does not have HCTZ Rx sent for metoprolol to be started. Per prior cardiology note, pt with chronic fluid retention/diastolic dysfunction--also other etiology including sedentary state, sodium, anemia, gabapentin. Noted she may require low dose furosemide a couple days a week. She has upcoming cardiology appt and can further discuss at that time. No acute distress and wts stable. Assessment & Plan (08/01/2023 6:59 PM EST): Current CKD Stage: Stage III "RED FLAG" [...] There is no evidence of pulmonary hypertension. Assessment & Plan (04/25/2023 2:40 PM EDT): 2 D Echo, 02/23/23: Interpretation Summary The examination is adequate to evaluate the referral indication. The left ventricular cavity size is normal. The left ventricular wall motion is normal. The LV wall thickness is borderline increased (concentric). The qualitative LV ejection fraction is 60-64% (normal). No significant valvular disease There is no evidence of pulmonary hypertension. Current CKD Stage: Stage III "RED FLAG" symptoms: NO IDENTIFIED SYMPTOMS CKD Complications: HTN Additional Comments On Toprol XL 12.5 MG, lisinopril 10 mg qam Sees cardiology on 05/15. May need to change meds > decrease lisinopril? D/c Toprol? Was haivng higher BP but now well controlled Food insecurity 11/01/2021 01/03/2024 Overview: Per [facility] Protocol Stage 3a chronic kidney disease 06/29/2020 09/03/2020 Overview: Per CKD protocol - Per CKD protocol Hypertensive kidney disease with stage 3a chronic kidney disease 01/06/2020 04/25/2023 Angina pectoris with documented spasm 11/19/2019 01/22/2020 COPD, group B, by GOLD 2017 classification 09/02/2019 11/26/2023 Assessment & Plan (08/01/2023 6:55 PM EST): "RED FLAG" COPD symptoms: NO IDENTIFIED SYMPTOMS Medication Regimen All Classes - FRIDA Self-Management plan Prednisone 40mg daily for 5 days Rx Exacerbation plan Chest Xray Other/Additional Comments: has not had an exacerbation, doing well from a respiratory standpoint although she does need nocturnal oxygen Assessment & Plan (04/25/2023 4:25 PM EDT): "RED FLAG" COPD symptoms: NO IDENTIFIED SYMPTOMS Medication Regimen All Classes - FRIDA Self-Management plan Prednisone 40mg daily for 5 days Rx Exacerbation plan Chest Xray Other/Additional Comments: has not had an exacerbation, doing well from a respiratory standpoint although she does need nocturnal oxygen Kidney disease, chronic, sta ge III (GFR 30-59 ml/min) 06/03/2019 07/02/2020 Overview: Per CKD protocol Recurrent major depressive d isorder, in partial remission 01/11/2019 04/25/2023 Peripheral vascular disease 05/21/2018 08/29/2022 Diastolic dysfunction 11/24/20172024 Lumbar radiculopathy 06/02/2017 018 Overview (06/02/2017): MRI 06/01/17L L5-S1 moderate left foraminal stenosis due to disc - ligament swelling, + facet arthropathy GCA (giant cell arteritis) 03/22/2017 0 04/18/2017 Swelling 12/23/2016 05/21/2018 Chronic daily headache 12/23/201605/21 Pain management 04/05/2016 01/22/2024 Overview (04/05/2016): Started w/ [facility] 03/01/16 Vitamin D deficiency 11/02/2015 019 Rib pain on right side 10/22/201505/21 Screen for colon cancer 04/16/201503/22 Overview (04/16/2015): Colonoscopy 04/15/15: poor prep - repeat in 3 yrs Depression with anxiety 03/12/2015 1008/2017 Low back pain 03/12/2015 03/12/2015 Closed rib fracture 02/12/2015 05/21/20 18 Overview (10/29/2015): Seen by Dr. Piper - considering a [...] non-displaced fx right #2,3,4,5 (CT done at [facility]) MEDICATION USE AGREEMENT 12/11/201408/2017 Overview (04/05/2016): [facility]ed [facility] 03/01/16 Signed 03/20/14, renewed 12/11/14 Cigarette smoker 12/11/2014 02/24/2022 Carotid stenosis, symptomatic w/o infarct 08/18/2014 03/17/2016 Overview (12/15/2015): Carotid doppler 12/11/15: no stenosis bilat Carotid doppler 04/06/15: 50% stenosis both external arteries, and BRENT, no stenosis on LICA Chest pain 12/28/2013 03/12/2015 Asthma 08/07/2014 Overview (12/01/2015): ICD-10 update of inactive term Neuralgia, neuritis, and rad iculitis, unspecified 03/12/2015 Arthritis 12/11/2014 Overview (12/11/2014): Right hip Back problem 05/21/2018 Overview (03/17/2016): Having left sciatic sx's - followed by [facility] documented as of this encounter (statuses as of 12/26/2024) Immunizations Name Administration Dates Next Due COVID-19 mRNA, LNP-s, No Pre serve, 2-Dose Series ([employer]) 12/24/2021,05/21/2021,11/04/2020,10/14 COVID-19, MRNA-LNP, PF, 30 M CG/0.3 mL, 12 YRS AND ABOVE, IM ([facility]) 06/07/2023 Covid-19, Mrna, Lnp-s, Pf, B ivalent, 30 Mcg, IM, 12 yrs and above (Pfizer) 05/09/2022 PPD 10/25/2021 Pneumococcal Conjugate Vacc, 13 Valent (Prevnar) 05/25/2020,12/08/2015 Pneumococcal Polysaccharide PPV23 (Pneumovax) 07/04/2017,06/22/2012 RSV Vac., Bivalent, Perfusio n F, Pf,0.5 Ml (Abrysvo) 11/13/2023 Season Influenza, Quad, PF, Adjuvanted, 65+ Yrs, IM (FLUAD) 05/07/2023 Seasonal Influenza Vac., MDV , IM, 0.5 mL (Fluzone) 06/16/2016,06/10/2014,07/08/2013,07/19 Seasonal Influenza, High Dos e, Trivalent, PF, IM (Fluzone HD) 05/09/2024,04/21/2019,04/21/2018,04/21 Seasonal Influenza, Quadriva lent Hd (Fluzone Hd) 05/05/2022 Seasonal Influenza, Quadriva lent Hd, 65+ Yrs 04/08/2020 Seasonal Influenza, Quadriva lent, No Preserve, IM 04/09/2020,05/27/2015 Seasonal Influenza, Trivalen t, Adjuvanted, 65+ YRS, PF, (Fluad) 04/21/2021,04/21/2019 TDAP (age 10 and older)(Boostrix) 04/27/2022 TDAP, Age 7 and older, IM (Adacel) 12/01/2011, Varicella Zoster Vaccine Andrés lt (Zostavax) 03/25/2015 Zoster Vaccine Recombinant (Shingrix) 04/23/2020 ,03/06/2020 documented as of this encounter Social History Tobacco Use Types Packs/Day Years Used Date Smoking Tobacco: Former Cigarettes 0.3 51 0 11/26/1969 - 11/26/2020 Smokeless Tobacco: Never Alcohol Use Standard Drinks/Week Comments No 0 (1 standard drink = 0.6 oz pur e alcohol) PHQ-2 Answer Date Recorded PHQ Adult Total Score 15 12/10/2024 Hunger Vital Sign Answer Date Recorded Within the past 12 months, y ou worried that your food would run out before you got the money to buy more. Never true 05/01/20 24 Within the past 12 months, t he food you bought just didn't last and you didn't have money to get more. Never true 05/01/2024 Childcare Answer Date Recorded Do you feel overwhelmed with taking care of a child, family member or friend? Yes 05/01/2024 Does your family need help f inding childcare? (Household - for ages 0-17 years) Not on file 05/01/2024 Clothing Answer Date Recorded Have you been unable to get clothing when it was really needed? No 05/01/2024 Is your family able to get c lothes or diapers when needed? (Household - for ages 0-17 years) Not on file 05/01/2024 Personal Safety Answer Date Recorded Do you feel unsafe or have concerns for your saf ety? No 05/01/2024 Do you have concerns for you r family's safety? (Household - for ages 0-17 years) Not on file 05/01/2024 Utilities Answer Date Recorded Do you have trouble paying y our heating, water, or electric bill? No 05/01/2024 Is your family able to pay t he heat, water, or electric bill? (Household - for ages 0-17 years) Not on file 05/01/2024 Does your family have access to good internet? (Household - for ages 0-17 years) Not on file 05/01/2024 Employment Status Answer Date Recorded Are you unemployed or without regular income? No 05/01/2024 Does the household have a re gular source of income? (Household - for ages 0-17 years) Not on file 05/01/2024 Social Connections Answer Date Recorded How often do you feel lonely or isolated from th ose around you? Rarely 05/01/2024 Financial Resource Strain Answer Date R ecorded Do you have any trouble payi ng for your medications, or do you think you might in the future? No 05/01/2024 Does your family have troubl e paying for medicine? (Household - for ages 0-17 years) Not on file 05/01/2024 Transportation Needs Answer Date Record ed Do you have trouble getting a ride to medical visits or work? (Adult - for ages 18 years and over) Not on file 05/01/2024 Does your family have a hard time getting a ride to doctors visits? (Household - for ages 0-17 years) Not on file 05/01/2024 Has lack of transportation k ept you from medical appointments, meetings, work, or from getting things needed for daily living? Check all that apply. No 05/01/2024 Do you (or your family) have trouble finding or paying for a ride (transportation)? (Household - for ages 0-17 years) Not on file 05/01/2024 Housing Stability Answer Date Recorded Do you currently live in a s helter or have no steady place to sleep at night? No 05/01/2024 Do you think you are at risk of becoming homeless? (Adult - for ages 18 years and over) Not on file 05/01/2024 Does your family worry about paying for your home or becoming homeless? (Household - for ages 0-17 years) Not on file 0 05/01/2024 Are you homeless or worried that you might be in the future? No 05/01/2024 Are you (or your family) otto eless or worried that you might be in the future? (Household - for ages 0-17 years) Not on file Food Insecurity Answer Date Recorded Do you need food for this week? No 05/01/2024 Are you able to get enough f ood for your family? (Household - for ages 0-17 years) Not on file 05/01/2024 Does your family need food t his week? (Household - for ages 0-17 years) Not on file 05/01/2024 Do you always have enough fo od for your family? (Household - for ages 0-17 years) Not on file 05/01/2024 Food Insecurity Answer Date Recorded Within the past 12 months, y ou worried that your food would run out before you got the money to buy more. Never true 05/01/20 24 Within the past 12 months, t he food you bought just didn't last and you didn't have money to get more. Never true 05/01/2024 Do you need food for this week? No 05/01/2024 Comments No Sex and Gender Information Value Date Recorded Sex Assigned at Female 01/08/2019 12:49 PM EDT Legal Sex Female 5:57 AM EST Gender Identity Female 01/08/2019 12:49 PM EDT Sexual Orientation Straight 01/08/2019 12 :49 PM EDT documented as of this encounter Functional Status * Are you deaf or do you have serious difficulty hearing? Answer Date of Assessment Author No 03/15/2023 2:09 PM EDT Josee Rene RN * Are you blind or do you have serious difficulty seeing, even when wearing glasses? Answer Date of Assessment Author No 03/15/2023 2:09 PM EDT Josee Rene RN * Do you have serious difficulty walking or climbing stairs? (5 years old or older) Answer Date of Assessment Author No 03/15/2023 2:09 PM EDT Josee Rene RN * Do you have difficulty dressing or bathing? (5 years old or older) Answer Date of Assessment Author No 03/15/2023 2:09 PM EDT Josee Rene RN * Because of a physical, mental, or emotional condition, do you have difficulty doing errands alone such as visiting a doctor’s office or shopping? (15 years old or older) Answer Date of Assessment Author No 03/15/2023 2:09 PM EDT Josee Rene RN documented as of this encounter Mental Status * Because of a physical, mental, or emotional condition, do you have serious difficulty concentrating, remembering, or making decisions? (5 years old or older) Answer Entry Date Author No 03/15/2023 2:09 PM JULIAT Josee Rene RN documented in this encounter Miscellaneous Notes * Telephone Encounter - Yaima Shepard PA-C - 12/26/2024 1:24 PM EDT Rigo Inboxologist Note Patient Call This Inboxologist has reviewed the question or concern expressed and has determined that this message can wait for the PCP to address upon their return to the office. Yaima Shepard PA-C 12/26/2024 1:24 PM * Telephone Encounter - Rochelle Gaines LPN - 12/25/2024 1:38 PM EDT Provider review requested documented in this encounter Plan of Treatment Upcoming Encounters Date Type Department Care Team (Late st Contact Info) Description 02/10/2025 9:45 AM EDT Imaging Radiology [address] [place] [address] 06/04/2025 9:40 AM EDT Office Visit Nephrology, [facility] [address] [place] [address] Ritchie Childress MD [address] [place] [address] 07/07/2025 11:30 AM EST Imaging Radiology [facility] [address] [place] [address] 07/08/2025 11:00 AM EST Office Visit Rheumatology [facility] [address] [place] [address] Yeyo Barrios MD [address] [place] [address] 08/04/2025 10:20 AM EST Office Visit [facility] Practice [facility] [address] [place] [address] Oumar Leon, [address] [place] [address] Scheduled Procedures Name Priority Associated Diagnoses Date/Ti me COLONOSCOPY FLEXIBLE PROXIMAL DIAGNOSTIC Recall History of colon polyps Health Maintenance Due Date Last Done Comments Cologuard 1995 Sigmoidoscopy 1995 Fecal Occult Blood Test 09/22/1999 09/22/1998 Adult Wellness Visit 2016 Colonoscopy 03/19/2023 03/19/2018, 02/20, 02/27/2018, Additional history exists Colorectal Cancer Screening 03/19/2023 *BISPHONATE OR OTHER ACCEPTABLE MEDICATION NEEDED FOR OSTEOPOROSIS (REFER TO SMARTSET #1146) 07/07/2024 COVID-19 Vaccine ( season) 2024 05/24/2024, 07/09/2023, 06/07/2023, Additional history exists Mammogram 02/08/2025 02/09/2024, 01/20, 12/06/2022, Additional history exists Albumin/Creatinine Ratio 05/17/2025 024, 02/25/2022, 02/02/2021 GFR 06/11/2025 12/10/2024, 08/22, 05/17/2024, Additional history exists DXA Scan 07/03/2025 07/03/2023, 06/21, 06/21/2021, Additional history exists Depression Monitoring 12/10/2025 12/10/2024, 025 O2 ASSESSMENT COMPLETED IN PAST YEAR FOR COPD 12/10/2025 12/10/2024 DTap/Tdap Vaccines (4 - Td or Tdap) 04/27/2032 04/27/2022, 12/01/2011, 12/04/1999 RETIRED - COLONOSCOPY-EVERY 5 YRS AGES 18-100 Discontinued 03/19/2018, 03/19/2018, 02/27/2018, Additional history exists Zoster Vaccines Completed 04/23/2020, 02/18, 03/25/2015 Pneumococcal Vaccine: 50+ Years Completed 05/25/2020, 07/04/2017, 12/08/2015, Additional history exists Influenza Vaccine (FLU shot) Completed 05/09/2024, 05/07/2023, 05/05/2022, Additional history exists VITAMIN D LEVEL ONCE IN A LIFETIME-USE SMARTSET# 81423 Completed 05/17/2024, 03/07/2024, 07/05/2023, Additional history exists Alpha-1 Antitrypsin Discontinued HPV (Gardasil) Vaccine Aged Out No lo nger eligible based on patient's age to complete this topic Hepatitis B Vaccine Aged Out No longe r eligible based on patient's age to complete this topic MENINGOCOCCAL (MENACTRA/MENVEO) Aged Out No longer eligible based on patient's age to complete this topic Meningitis B Vaccine (Bexsero/Trumemba) Aged Out No longer eligible based on patient's age to complete this topic documented as of this encounter Medical Devices Implanted Type Area Building Maintenance Custodian Device Identifier Shelf Expiration Date Model / Serial / Lot Dbx 5cc [id number] - [id number] - [id number] Implanted:Qty : 1 on 01/20/2021 by Wyatt Ly MD at [facility] Tissue - Human N/A: Spine Cervical MUSCULOSKELETAL TRANSPLANT FND [id number] 08/22/2021 [id number] / [id number] / LOT NA Vitoss Bimodal Foam Pack 10cc - [id number] - [id number] Implanted:Qty : 1 on 01/20/2021 by Wyatt Ly MD at OR [facility] N/A: Spine Cervical PAULETTE : SPINE 12/16/2021 [id number] / [id number] / [id number] 4.5 X 20mm Cortical Fixation Screw Implanted:Qty : 1 on 01/20/2021 by Wyatt Ly MD at OR [facility] N/A: Spine Cervical DEPU[employer] INC 1020-45-220 / / 4.5 X 22mm Cortical Fixation Screw Implanted:Qty : 1 on 01/20/2021 by Wyatt Ly MD at OR [facility] N/A: Spine Cervical DEPU[employer] SP[employer] INC 1020-45-222 / / 3.5 X 12mm Screws Implanted:Qty : 8 on 01/20/2021 by Wyatt Ly MD at OR [facility] N/A: Spine Cervical DEPU[employer] SP[employer] INC 1020-35-112 / / Set Screws Implanted:Qty : 10 on 01/20/2021 by Wyatt Ly MD at OR [facility] N/A: Spine Cervical DEPUY SPINE INC 1020-00-000 / / 60mm Rods Implanted:Qty : 2 on 01/20/2021 by Wyatt Ly MD at OR [facility] N/A: Spine Cervical DEPU[employer] SPINE INC 1020-64-060 / / 1cm X 5cm Magnifuse Posterior Cervical Bone Graft (Formerly Osteotech) Implanted:Qty : 1 on 03/15/2023 by Wyatt Ly MD at OR [facility] N/A: Spine Lumbar Medtronic [employer]on[employer] [id number] 01/05/2025 [id number] / [id number] / LOT NA Catalyft Pl Expandable Interbody System, Interbody Cage Implanted:Qty : 2 on 03/15/2023 by Wyatt Ly MD at OR [facility] N/A: Spine Lumbar Medtronic 03/08/2030 [id number] / / [id number] 6.5 X 45 Screw Implanted:Qty : 2 on 03/15/2023 by Wyatt Ly MD at OR [facility] N/A: Spine Lumbar Medtronic [id number] / / Description:No Exp. Date, us ed out of set 6.5 X 40 Screw Implanted:Qty : 2 on 03/15/2023 by Wyatt Ly MD at OR [facility] N/A: Spine Lumbar Medtronic [id number] / / Description:No Expiration da te, used out of set 7.5 X 40 Screw Implanted:Qty : 2 on 03/15/2023 by Wyatt Ly MD at OR [facility] N/A: Spine Lumbar Medtronic [id number] / / Description:No Expiration Da te, used out of set Screw Bone Ti Set Solera 4.75m - [id number] Implanted:Qty : 6 on 03/15/2023 by Wyatt Ly MD at [facility] N/A: Spine Lumbar [employer]TRON[employer] [id number] / / Description:No Expiration Da te, used out of set Anthony [place] 4.75mm Pbent 55mm - [id number] Implanted:Qty : 2 on 03/15/2023 by Wyatt Ly MD at OR [facility] N/A: Spine Lumbar MEDTRONIC : NEUROLOGIC PAIN [id number] / / 10cc Mastergraft Biologic Matrix Ext Block Implanted:Qty : 1 on 03/15/2023 by Wyatt Ly MD at OR [facility] N/A: Spine Lumbar Medtronic Sofamor Danek [id number] 11/18/2025 [id number] / [id number] / [id number] Dbx 2.5cc [id number] - [id number] - [id number] Implanted:Qty : 1 on 03/15/2023 by Wyatt Ly MD at OR [facility] N/A: Spine Lumbar MUSCULOSKELETAL TRANSPLANT FND [id number] 08/04/2024 [id number] / [id number] / LOT NA Dbx 2.5cc 253963 - [id number] - [id number] Implanted:Qty : 1 on 03/15/2023 by Wyatt Ly MD at OR [facility] N/A: Spine Lumbar MUSCULOSKELETAL TRANSPLANT FND [id number] 10/04/2024 [id number] / [id number] / LOT NA Graft Bone Infuse Kit Xsmall - [id number] - [id number] Implanted:Qty : 1 on 03/15/2023 by Wyatt Ly MD at [facility] N/A: Spine Lumbar MEDTRONIC : NEUROLOGIC PAIN [id number] 07/20/2024 [id number] / [id number] / [id number] documented as of this encounter Advance Directives * Full Code (Latest Code Status on File) Date Activated Date Inactivated Comments 03/15/2023 12:57 PM 03/20/2023 6:22 PM This order reflects the patients wishes and were consensually agreed upon. Question Answer Comments Discussion of Advance Directives occurred with: Patient * Full Code Date Activated Date Inactivated Comments 03/15/2023 6:34 AM 03/15/2023 6:39 AM This order r eflects the patients wishes and were consensually agreed upon. Question Answer Comments Discussion of Advance Directives occurred with: Patient * Full Code Date Activated Date Inactivated Comments 01/20/2021 2:31 PM 01/23/2021 5:22 PM This order ref lects the patients wishes and were consensually agreed upon. Question Answer Comments Discussion of Advance Directives occurred with: Not Discussed * Full Code Date Activated Date Inactivated Comments 01/20/2021 6:34 AM 01/20/2021 2:31 PM This order ref lects the patients wishes and were consensually agreed upon. Question Answer Comments Discussion of Advance Directives occurred with: Not Discussed Care Teams Airfield Engineer Officer Relationship Specialty Start Date End Date Hannah Ospina MD [address] [place] [address] PCP - General Family Medicine 04/11/24 documented as of this encounter
--- OUTSIDE RECORDS SUMMARY | 2024-12-27 20:15 | External Medical Summary | Summary of Care ---
Author Name Unknown Organization [facility] Address [address] [place] [address] Phone [phone] Care Team Providers Care Speech Pathology Assistant Name Role Phone Hannah Ospina MD Primary Care Provider [phone] Reason for Visit * Reason Onset Date Comments Care Plan Oversight 12/25/2024 Encounter Details Date Type Department Care Team (Late st Contact Info) Description 12/25/2024 Telephone [facility], [facility] [address] [place] [address] Rochelle Gaines, APPRENTICE TECHNICIAN [address] [place] [address] Care Plan Oversight Allergies Active Allergy Reactions Criticality Noted Date Comments Varenicline 12/11/2014 nausea Corticosteroids Other (Please comment) Medium 12/27/2013 Hyper, Mental Status Changes on oral steroids Dm-Apap-Cpm Anaphylaxis,Other (Please comment) High 12/27/2013 Contact dermatitis Ibuprofen Other (Please comment) Low 12/27/2013 Affects acid reflux Iodinated Contrast Media Hives 10/08/2007 Penicillins 10/09/2007 Rash documented as of this encounter (statuses as of 12/25/2024) Medications ASPIRIN 81 MG PO TABSIndications:Ca n [...] Hour (toPROL XL)Indications: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 Member can be directed to [facility] at [phone] M-F 8am-5pm Coronary artery disease invo lving [place] coronary artery of [place] heart with angina pectoris 11/26/2023 Assessment & [...] as of this encounter (statuses as of 12/25/2024) Resolved Problems Problem Noted Date Diagnosed Date Resolved Date History of HI (myocardial infarction) 04/25/2023 09/10/2024 Syncope 04/25/2023 01/22/2024 [...] in the Comments) Remote Patient Monitoring Vendor: Fullscreen Device(s): Connected Scale Self - Management Plan Other/Additional Comments: restart lasix daily Exacerbation Plan Anticipated IV Lasix dose: 40 mg BMP Chest X-Ray Additional Comments: Euvolemic today. Nephrology 05/17/24--new pt-[id number]--irsvx decline in renal function with lasix and [...] in the Comments) Remote Patient Monitoring Vendor: Fullscreen Device(s): Connected Scale Self - Management Plan [...] [facility]) MEDICATION USE AGREEMENT 12/11/201408/2017 Overview (04/05/2016): Started [...] as of this encounter (statuses as of 12/25/2024) Immunizations Name Administration Dates Next Due COVID-19 mRNA, LNP-s, No Pre serve, 2-Dose Series (PopJax) 12/24/2021,05/21/2021,11/04/2020,10/14 COVID-19, MRNA-LNP, PF, 30 M CG/0.3 mL, 12 YRS AND ABOVE, IM [facility] 06/07/2023 Covid-19, Mrna, Lnp-s, Pf, B [...] of Assessment Author No 03/15/2023 2:09 PM JULIAT Josee Rene RN * Do you have serious difficulty walking or climbing stairs? (5 years old or older) Answer Date of Assessment Author No 03/15/2023 2:09 PM JULIAT Josee Rene RN * Do you have difficulty dressing or bathing? (5 years old or older) Answer Date of Assessment Author No 03/15/2023 2:09 PM JULIAT Josee Rene RN * Because of a physical, mental, or emotional condition, do you have difficulty doing errands alone such as visiting a doctor’s office or shopping? (15 years old or older) Answer Date of Assessment Author No 03/15/2023 2:09 PM Josee Kingtson RN documented as of this encounter Mental Status * Because of a physical, mental, or emotional condition, do you have serious difficulty concentrating, remembering, or making decisions? (5 years old or older) Answer Entry Date Author No 03/15/2023 2:09 PM Josee Kingston RN documented in this encounter Miscellaneous Notes * Telephone Encounter - Rochelle Gaines LPN - 12/25/2024 1:38 PM EDT Provider review requested documented in this encounter Plan of Treatment Upcoming Encounters Date Type Department Care Team (Late st Contact Info) Description 02/10/2025 9:45 AM EDT Imaging Radiology [address] [place] [address] 06/04/2025 9:40 AM EDT Office Visit Nephrology, [facility] [address] [place] [address] Ritchie Childress MD [address] [place] [address] 07/07/2025 11:30 AM EST Imaging Radiology [facility] [address] [place] [address] 07/08/2025 11:00 AM EST Office Visit Rheumatology [facility] [address] [place] [address] Yeyo Barrios MD [address] [place] [address] 08/04/2025 10:20 AM EST Office Visit Family Practice [facility] [address] [place] [address] Oumar Leon, DO [address] [place] [address] Scheduled Procedures Name Priority Associated Diagnoses Date/Ti [...] D LEVEL ONCE IN A LIFETIME-USE SMARTSET# 77737 Completed 05/17/2024, 03/07/2024, 07/05/2023, Additional history exists [...] this encounter Medical Devices Implanted Type Area Counseling Aide Device Identifier Shelf Expiration Date Model / Serial / Lot Dbx 5cc 959408 - [id number] - [id number] Implanted:Qty : 1 on 01/20/2021 by Wyatt Ly MD at [facility] Tissue - Human N/A: Spine Cervical MUSCULOSKELETAL TRANSPLANT FND [id number] 08/22/2021 284179 / [id number] / LOT NA Vitoss Bimodal Foam Pack 10cc - [id number] - [id number] Implanted:Qty : 1 on 01/20/2021 by Wyatt Ly MD at OR [facility] N/A: Spine Cervical PAULETTE : SPINE 12/16/2021 9029-6361 / [id number] / [id number] 4.5 X 20mm Cortical Fixation Screw Implanted:Qty : 1 on 01/20/2021 by Wyatt Ly MD at OR [facility] N/A: Spine Cervical DEPUY SPINE INC 1020-45-220 / / 4.5 X 22mm Cortical Fixation Screw Implanted:Qty : 1 on 01/20/2021 by Wyatt Ly MD at OR [facility] N/A: Spine Cervical DEPUY SPINE INC 1020-45-222 / / 3.5 X 12mm Screws Implanted:Qty : 8 on 01/20/2021 by Wyatt Ly MD at OR [facility] N/A: Spine Cervical DEPUY SPINE INC 1020-35-112 / / Set Screws Implanted:Qty : 10 on 01/20/2021 by Wyatt Ly MD at OR [facility] N/A: Spine Cervical DEPUY SPINE INC 1020-00-000 / / 60mm Rods Implanted:Qty : 2 on 01/20/2021 by Wyatt Ly MD at OR [facility] N/A: Spine Cervical DEPUY SPINE INC 1020-64-060 / / 1cm X 5cm Magnifuse Posterior Cervical Bone Graft (Formerly Osteotech) Implanted:Qty : 1 on 03/15/2023 by Wyatt Ly MD at OR [facility] N/A: Spine Lumbar Medtronic Sofamor Danek [id number] 01/05/2025 [id number] / [id number] / LOT [facility] [address] Expandable Interbody System, Interbody Cage Implanted:Qty : 2 on 03/15/2023 by Wyatt Ly MD at OR [facility] N/A: Spine Lumbar Medtronic 03/08/2030 [id number] / / [id number] 6.5 X 45 Screw Implanted:Qty : 2 on 03/15/2023 by Wyatt Ly MD at OR [facility] N/A: Spine Lumbar Medtronic [id number] / / Description:No Exp. Date, us ed out of set 6.5 X 40 Screw Implanted:Qty : 2 on 03/15/2023 by Wyatt Ly MD at OR [facility] N/A: Spine Lumbar Medtronic [id number] / / Description:No Expiration da te, used out of set 7.5 X 40 Screw Implanted:Qty : 2 on 03/15/2023 by Wyatt Ly MD at OR [facility] N/A: Spine Lumbar Medtronic [id number] / / Description:No Expiration Da te, used out of set Screw Bone Ti Set Solera 4.75m - [id number] Implanted:Qty : 6 on 03/15/2023 by Wyatt Ly MD at OR [facility] N/A: Spine Lumbar MEDTRONIC [facility] [id number] / / Description:No Expiration Da te, used out of set [place] 4.75mm Pbent 55mm - [id number] Implanted:Qty : 2 on 03/15/2023 by Wyatt Ly MD at OR [facility] N/A: Spine Lumbar MEDTRONIC : NEUROLOGIC PAIN [id number] / / 10cc Mastergraft Biologic Matrix Ext Block Implanted:Qty : 1 on 03/15/2023 by Wyatt Ly MD at OR [facility] N/A: Spine Lumbar Medtronic Sofamor Danek [id number] 11/18/2025 [id number] / [id number] / [id number] Dbx 2.5cc [id number] - [id number] - [id number] Implanted:Qty : 1 on 03/15/2023 by Wyatt Ly MD at OR [facility] N/A: Spine Lumbar MUSCULOSKELETAL TRANSPLANT FND [id number] 08/04/2024 241994 / [id number] / LOT NA Dbx 2.5cc 059647 - [id number] - [id number] Implanted:Qty : 1 on 03/15/2023 by Wyatt Ly MD at OR [facility] N/A: Spine Lumbar MUSCULOSKELETAL TRANSPLANT FND [id number] 10/04/2024 994083 / [id number] / LOT NA Graft Bone Infuse Kit Xsmall - [id number] - [id number] Implanted:Qty : 1 on 03/15/2023 by Wyatt Ly MD at OR [facility] N/A: Spine Lumbar MEDTRONIC : NEUROLOGIC PAIN [id number] 07/20/2024 8351172 / [id number] / [id number] documented as of this encounter Advance Directives [...] Directives occurred with: Not Discussed Care Teams Speech Pathology Assistant Relationship Specialty Start Date End Date Hannah Ospina MD [address] [place] [address] PCP - General Family Medicine 04/11/24 documented as of this encounter
--- OUTSIDE RECORDS SUMMARY | 2024-12-27 20:16 | External Medical Summary | Summary of Care ---
Author Name Unknown Organization [facility] Address [address] [place] [address] Phone [phone] Care Team Providers Care Criminal Justice Social Worker Name Role Phone Dhruv Ospina MD Primary Care Provider [phone] Reason for Visit * Reason Onset Date Comments Medication Refill 12/12/2024 Encounter Details Date Type Department Care Team (Late st Contact Info) Description 12/12/2024 Refill Family Practice [facility] [address] [place] [address] Dhruv Ospina [facility] [address] [facility] [address] Generalized osteoarthrosis, involving multiple sites Allergies Active Allergy Reactions Criticality Noted Date Comments Varenicline 12/11/2014 nausea Corticosteroids Other (Please comment) Medium 12/27/2013 Hyper, Mental Status Changes on oral steroids Dm-Apap-Cpm Anaphylaxis,Other (Please comment) High 12/27/2013 Contact dermatitis Ibuprofen Other (Please comment) Low 12/27/2013 Affects acid reflux Iodinated Contrast Media Hives 10/08/2007 Penicillins 10/09/2007 Rash documented as of this encounter (statuses as of 12/13/2024) Medications ASPIRIN 81 MG PO TABSIndications:Ca n [...] Hour (toPROL XL)Indications: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 30 Capsule 5 05/24/20 24 Active Gabapentin 300 MG Oral Capsule (Neurontin) Take 1 Capsule by mouth 2 times a day. 06/21/20 24 Active Furosemide 40 MG Oral Tablet (Lasix) Take 1 Tablet by mouth once a day on Monday and Monday only. Active Albuterol Sulfate HFA 108 (90 Base) [...] morning. 4 g 1 09/10/19 25 Active Amitriptyline HCl 10 MG Oral Tablet [...] per day 60 Tablet 12/14/19 25 Active HYDROcodone-Acetam inophen 5-325 MG Oral TabletIndications: Generalized osteoarthrosis, involving multiple sites Take 1 Tablet by mouth every 6 hours as needed for Pain, Moderate or Pain, Severe. Max 2 per day 60 Tablet 11/09/19 25 025 Discontin ued(Refil l) Hospital, Clinic, or Other Facility Administered Medication Ordered Dose Route Frequency Start Date End Date Status botulinum toxin type a (Botox) inj 200 UnitsIndications:Intractabl e chronic migraine without aura and without status migrainosus 200 Units IM [id number] 09/25/2024 08/27/2025 Active documented as of this encounter (statuses as of 12/13/2024) Active Problems Problem Noted Date Diagnosed Date [...] KATLYN-FRIDA Combination Inhaler [place] [facility] [place] Connected Scale Self-Management plan High frequency [...] at night. Member can be directed to [facility] at [phone] M-F 8am-5pm Coronary artery disease invo lving mentasta coronary artery of mentasta heart with angina pectoris 11/26/2023 Assessment & [...] as of this encounter (statuses as of 12/13/2024) Resolved Problems Problem Noted Date Diagnosed Date Resolved Date History of AR (myocardial infarction) 04/25/2023 09/10/2024 Syncope 04/25/2023 01/22/2024 [...] in the Comments) Remote Patient Monitoring Vendor: [employer] Device(s): Connected Scale Self - Management Plan Other/Additional Comments: restart lasix daily Exacerbation Plan Anticipated IV Lasix dose: 40 mg BMP Chest X-Ray Additional Comments: Euvolemic today. Nephrology 05/17/24--new pt-ASP3y--agtbh decline in renal function with lasix and [...] in the Comments) Remote Patient Monitoring Vendor: [employer] Device(s): Connected Scale Self - Management Plan [...] non-displaced fx right #2,3,4,5 (CT done at [facility]) MEDICATION USE AGREEMENT 12/11/201408/2017 Overview (04/05/2016): Soheila Bowers pain management 03/01/16 Signed 03/20/14, [...] Having left sciatic sx's - followed by [facility] documented as of this encounter (statuses as of 12/13/2024) Immunizations Name Administration Dates Next Due COVID-19 mRNA, LNP-s, No Pre serve, 2-Dose Series ([employer] [facility]) 12/24/2021,05/21/2021,11/04/2020,10/14 COVID-19, MRNA-LNP, PF, 30 M CG/0.3 mL, 12 YRS AND ABOVE, IM (Ad [employer]-ComirnatDecideQuick) 06/07/2023 Covid-19, Mrna, Lnp-s, Pf, B ivalent, [...] 2:09 PM JULIAT Josee Rene RN documented as of this encounter Mental Status * Because of a physical, mental, or emotional condition, do you have serious difficulty concentrating, remembering, or making decisions? (5 years old or older) Answer Entry Date Author No 03/15/2023 2:09 PM JULIAT Josee Rene RN documented in this encounter Miscellaneous Notes * Telephone Encounter - Dhruv Ospina MD - 12/13/2024 2:24 PM EDTSigned Prescriptions: Disp Refills HYDROcodone-Acetaminophen 5-325 MG Oral Ta*60 Tab*0 Sig: Take 1 Tablet by mouth every 6 hours as needed for Pain, Moderate or Pain, Severe. Max 2 per day Authorizing Provider: DHRUV OSPINA * Telephone Encounter - Tanika Mistry [facility] - 12/13/2024 2:23 PM EDT Pending Prescriptions: Disp Refills HYDROcodone-Acetaminophen 5-325 MG Oral Ta*60 Tab*0 Sig: Take 1 Tablet by mouth every 6 hours as needed for Pain, Moderate or Pain, Severe. Max 2 per day * Telephone Encounter - Tanika Mistry [facility] - 12/13/2024 2:23 PM EDT I have reviewed the patient’s controlled substance dispensing history in the Prescription Drug Monitoring Program in compliance with the [facility] regulations before prescribing a controlled substance. PDMP checked on 12/13/2024. Pending Prescriptions: Disp Refills HYDROcodone-Acetaminophen 5-325 MG Oral T*60 Tab*0 Sig: Take 1 Tablet by mouth every 6 hours as needed for Pain, Moderate or Pain, Severe. Max 2 per day Last Visit: 12/10/2024 (in office), Visit date not found (telemedicine) Next Visit: 08/04/2025 Date medication was last filled: 11/08 Date medication is due for refill: 12/07 Pharmacy: [facility] #[id number] Is this request for a controlled substance? Yes and Urine Drug Screen Not completed Toxicology results: No results found. However, due to the size of the patient record, not all encounters were searched.Please check Results Review for a complete set of results. Please approve if appropriate. Thank you, Tanika Mistry, PharmD. Clinical Pharmacist [facility] ([facility]) 12/13/2024, 2:23 PM * Telephone Encounter - Sweetie Mederos CPhT - 12/12/2024 9:56 AM EDT Did you pend patient's preferred pharmacy and medication before forwarding?yes Pharmacy: [facility] #[id number] Pending Prescriptions: Disp Refills HYDROcodone-Acetaminophen 5-325 MG Oral T*60 Tab*0 Sig: Take 1 Tablet by mouth every 6 hours as needed for Pain, Moderate or Pain, Severe. Max 2 per day Last Visit: 12/10/2024 (in office), Visit date not found (telemedicine) Next Visit: 08/04/2025 If no future appointments scheduled, and last appointment is greater than a year ago, please schedule patient for a follow-up appointment Last date the medication was ordered: 11/08/24 Is this request for a controlled substance?Yes, What was the last refill date 11/08/24 w/ quantity 60 and dosage Take 1 Tablet by mouth every 6 hours as needed for Pain, Moderate or Pain, Severe. Max 2 per day and Urine Drug Screen was completed Urine Drug Screen:No results found. However, due to the size of the patient record, not all encounters were searched. Please check Results Review for a complete set of results. Patient Phone Numbers Labs: Lab Results Component Value Date/Time CREAT 1.1 (H) 12/10/2024 01:58 PM CREAT 1.3 (H) 08/31/2020 09:43 AM POTASSIUM 4.9 12/10/2024 01:58 PM POTASSIUM 5.0 08/31/2020 09:43 AM TSH 1.64 12/10/2024 01:58 PM TSH 1.50 01/06/2020 08:53 AM LDL 83 03/01/2024 10:58 AM LDL 81 06/02/2020 09:42 AM LDL NOT APPLICABLE 06/02/2020 09:42 AM ALT 15 12/10/2024 01:58 PM ALT 18 06/02/2020 09:42 AM HGBA1C 5.9 (H) 03/10/2023 12:00 PM * Telephone Encounter - Jazlyn Menezes PHARM Tech - 12/12/2024 9:54 AM EDT Patient calling in regarding HYDROcodone-Acetaminophen 5-325 MG Oral Tablet . This was last prescribed by PCP office, transferring caller to Medication Refill Line for further assistance. Thank you, Jazlyn Menezes Can Filling Machine Operator I [facility] ([facility]) 12/12/2024,9:54 AM documented in this encounter Plan of Treatment Upcoming Encounters Date Type Department Care Team (Late st Contact Info) Description 12/20/2024 10:00 AM EDT Office Visit Cardiology, [facility] [address] [place] [phone] Edward Oliver, PABrownC [address] [place] [phone] 02/10/2025 9:45 AM EDT Imaging Radiology [address] [place] [phone] 06/04/2025 9:40 AM EDT Office Visit Nephrology, [facility] [address] [place] [address] Ritchie Childress MD [address] [place] [address] 07/07/2025 11:30 AM EST Imaging Radiology [facility] [address] [place] [phone] 07/08/2025 11:00 AM EST Office Visit Rheumatology [facility] [address] [place] [phone] Yeyo Barrios MD [address] [place] [phone] 08/04/2025 10:20 AM EST Office Visit Family Practice [facility] [address] [place] [address] Oumar Leon, [address] [place] [address] Scheduled Procedures Name Priority Associated Diagnoses Date/Ti [...] D LEVEL ONCE IN A LIFETIME-USE SMARTSET# 85870 Completed 05/17/2024, 03/07/2024, 07/05/2023, Additional history exists [...] this encounter Medical Devices Implanted Type Area Meat Inspector Device Identifier Shelf Expiration Date Model / Serial / Lot Dbx 5cc [id number] - [id number] - [id number] Implanted:Qty : 1 on 01/20/2021 by Wyatt Ly MD at OR [facility] Tissue - Human N/A: Spine Cervical MUSCULOSKELETAL TRANSPLANT FND [id number] 08/22/2021 [id number] / [id number] / LOT NA Vitoss Bimodal Foam Pack 10cc - [id number] - [id number] Implanted:Qty : 1 on 01/20/2021 by Wyatt Ly MD at OR [facility] N/A: Spine Cervical PAULETTE : SPINE 12/16/2021 [id number] / [id number] / [id number] 4.5 X 20mm Cortical Fixation Screw Implanted:Qty : 1 on 01/20/2021 by Wyatt Ly MD at OR [facility] N/A: Spine Cervical [employer] 1020-45-220 / / 4.5 X 22mm Cortical Fixation Screw Implanted:Qty : 1 on 01/20/2021 by Wyatt Ly MD at OR [facility] N/A: Spine Cervical [employer] 1020-45-222 / / 3.5 X 12mm Screws Implanted:Qty : 8 on 01/20/2021 by Wyatt Ly MD at OR [facility] N/A: Spine Cervical [employer] 1020-35-112 / / Set Screws Implanted:Qty : 10 on 01/20/2021 by Wyatt Ly MD at OR [facility] N/A: Spine Cervical [employer] 1020-00-000 / / 60mm Rods Implanted:Qty : 2 on 01/20/2021 by Wyatt Ly MD at OR [facility] N/A: Spine Cervical [employer] 1020-64-060 / / 1cm X 5cm Magnifuse Posterior Cervical Bone Graft (Formerly Osteotech) Implanted:Qty : 1 on 03/15/2023 by Wyatt Ly MD at OR [facility] N/A: Spine Lumbar Medtronic Sofamor Danek [id number] 01/05/2025 [id number] / [id number] / LOT NA Catalyft Pl Expandable Interbody System, Interbody Cage Implanted:Qty : 2 on 03/15/2023 by Wyatt Ly MD at OR [facility] N/A: Spine Lumbar Medtronic 03/08/2030 [id number] / / [id number] 6.5 X 45 Screw Implanted:Qty : 2 on 03/15/2023 by Wyatt Ly MD at OR [facility] N/A: Spine Lumbar Medtronic [id number] / / Description:No Exp. Date, us ed out of set 6.5 X 40 Screw Implanted:Qty : 2 on 03/15/2023 by Wyatt Ly MD at OR [facility] N/A: Spine Lumbar Medtronic [id number] / / Description:No Expiration da te, used out of set 7.5 X 40 Screw Implanted:Qty : 2 on 03/15/2023 by Wyatt Ly MD at OR [facility] N/A: Spine Lumbar Medtronic [id number] / / Description:No Expiration Da te, used out of set Screw Bone Ti Set Solera 4.75m - [id number] Implanted:Qty : 6 on 03/15/2023 by Wyatt Ly MD at OR [facility] N/A: Spine Lumbar [employer] [id number] / / Description:No Expiration Da te, used out of set [place] 4.75mm Pbent 55mm - [id number] Implanted:Qty : 2 on 03/15/2023 by Wyatt Ly MD at OR [facility] N/A: Spine Lumbar MEDTRONIC : NEUROLOGIC PAIN [id number] / / 10cc Mastergraft Biologic Matrix Ext Block Implanted:Qty : 1 on 03/15/2023 by Wyatt Ly MD at OR [facility] N/A: Spine Lumbar Medtronic Sofamor Danek [id number] 11/18/2025 [id number] / [id number] / [id number] Dbx 2.5cc [id number] - [id number] - [id number] Implanted:Qty : 1 on 03/15/2023 by Wyatt Ly MD at OR [facility] N/A: Spine Lumbar MUSCULOSKELETAL TRANSPLANT FND [id number] 08/04/2024 [id number] / [id number] / LOT NA Dbx 2.5cc 815735 - [id number] - [id number] Implanted:Qty : 1 on 03/15/2023 by Wyatt Ly MD at OR [facility] N/A: Spine Lumbar MUSCULOSKELETAL TRANSPLANT FND [id number] 10/04/2024 [id number] / [id number] / LOT NA Graft Bone Infuse Kit Xsmall - [id number] - [id number] Implanted:Qty : 1 on 03/15/2023 by Wyatt Ly MD at OR [facility] N/A: Spine Lumbar MED[employer]IC : NEUROLOGIC PAIN [id number] 07/20/2024 [id number] / [id number] / [id number] documented as of this encounter Visit Diagnoses Diagnosis Spinal stenosis of lumbar region without neurogenic claudication- Primary Spinal stenosis, lumbar region, without neurogenic claudication Syncope, unspecified syncope type 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) Other emphysema Hypertensive heart and kidney disease without heart failure and with stage 3a chronic kidney disease (HCC) Migraine without status migrainosus, not intractable, unspecified migraine type Major depressive disorder, recurrent episode, in partial remission (HCC) Major depressive disorder, recurrent episode, in partial or unspecified remission History of AR (myocardial infarction) Old myocardial infarction COPD, group B, by GOLD 2017 classification ([facility]) Hypomagnesemia Disorders of magnesium metabolism Hypertensive heart and kidney disease without heart failure and with stage 3a chronic kidney disease (HCC)- Primary Migraine without status migrainosus, not intractable, unspecified migraine type COPD, group B, by GOLD 2017 classification ([facility]) History of AR (myocardial infarction) Old myocardial infarction Major depressive disorder, recurrent episode, in partial remission (HCC) Major depressive disorder, recurrent episode, in partial or unspecified remission Spinal stenosis of lumbar region without neurogenic claudication Spinal stenosis, lumbar region, without neurogenic claudication Advanced care planning/counseling discussion Other specified counseling 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) Other emphysema 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)- Primary COPD, moderate (HCC) Chronic airway obstruction, not elsewhere classified Vitamin D deficiency Unspecified vitamin D deficiency Encounter for screening mammogram for breast cancer Hypertensive heart and kidney disease with chronic diastolic congestive heart failure and stage 3a chronic kidney disease (HCC) Adjustment disorder with anxious mood Adjustment disorder with anxiety Moderate episode of recurrent major depressive disorder (HCC)- Primary Hypertensive heart and kidney disease without heart failure and with stage 3a chronic kidney disease (HCC) Screening for thyroid disorder Black stool Nonspecific abnormal finding in stool contents Bluish skin discoloration- Primary Cyanosis Hypertensive heart and kidney disease with chronic diastolic congestive heart failure and stage 3a chronic kidney disease (HCC) 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) with chronic bronchitis (HCC) Obstructive chronic bronchitis without exacerbation Hypertensive heart and kidney disease with chronic diastolic congestive heart failure and stage 3a chronic kidney disease (HCC)- Primary Chest pain, unspecified type 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) Dysphagia, unspecified type Chronic heart failure with preserved ejection fraction (HCC)- Primary COPD (chronic obstructive pulmonary disease) with chronic bronchitis (HCC) Obstructive chronic bronchitis without exacerbation Spinal stenosis of lumbar region, unspecified whether neurogenic claudication present Migraine without status migrainosus, not intractable, unspecified migraine type Age-related osteoporosis without current pathological fracture Senile osteoporosis Flank pain Abdominal pain, unspecified site Insomnia, unspecified type Generalized osteoarthrosis, involving multiple sites documented in this encounter Advance Directives * Full Code [...] Directives occurred with: Not Discussed Care Teams Criminal Justice Social Worker Relationship Specialty Start Date End Date Dhruv Ospina MD [address] [place] [address] PCP - General Family Medicine 04/11/24 documented as of this encounter
--- OUTSIDE RECORDS SUMMARY | 2024-12-27 20:16 | External Medical Summary ---
Author Name Unknown Address Unknown Organization K09:[facility] [address] [place] [address] Laboratory Report Ordering Provider Test Date Status KEVON BARTLETT 12/10/2024 13:58:56 Final Observation Date Value Abnormality Reference (Units ) Status BUN 12/10/2024 13:58:56 18 6-20 (mg/dL) Final Creatinine 12/10/2024 13:58:56 1.1 Above high normal 0.5-1.0 (mg/dL) Final Glomerular filtration rate/1.73 sq M.predicted [Volume Rate/Area] in Serum, Plasma or Blood by Creatinine-based formula (CKD-EPI) 12/10/2024 13:58:56 56 Below low normal >=60 (mL/min) Final eGFR is calculated based on the CKD-EPI 2020 equation. Sodium 12/10/2024 13:58:56 141 135-146 (m mol/L) Final Potassium 12/10/2024 13:58:56 4.9 3.5-5.1 (m mol/L) Final Cl 12/10/2024 13:58:56 105 98-107 (mm ol/L) Final CO2 12/10/2024 13:58:56 27 22-32 (mmo l/L) Final Anion gap 12/10/2024 13:58:56 9 7-15 (mmol /L) Final Glucose 12/10/2024 13:58:56 94 70-120 (mg /dL) Final Albumin 12/10/2024 13:58:56 4.2 3.8-5.0 (g /dL) Final AST (Aspartate aminotransferase) 12/10/2024 13:58:56 22 10-35 (U/L) Final Alk Phos 12/10/2024 13:58:56 104 35-130 (U/ L) Final Bilirubin, Total 12/10/2024 13:58:56 0.2 <=1 .2 (mg/dL) Final Calcium 12/10/2024 13:58:56 9.9 8.4-10.2 ( mg/dL) Final Protein 12/10/2024 13:58:56 7.1 6.0-8.3 (g /dL) Final ALT (Alanine aminotransferase) 12/10/2024 13:58:56 15 10-35 (U/L) Final Performing Location [facility] [address] [place] [address]
--- OUTSIDE RECORDS SUMMARY | 2024-12-27 20:16 | External Medical Summary ---
Author Name Unknown Address Unknown Organization K09[facility] [address] [address] Laboratory Report Ordering Provider Test Date Status KEVON BARTLETT 12/10/2024 13:58:56 Final Observation Date Value Abnormality Reference (Units ) Status WBC, Total 12/10/2024 13:58:56 10.23 4.00-10.8 0 (K/uL) Final RBC 12/10/2024 13:58:56 3.94 3.85-5.15 (M/uL) Final Hemoglobin 12/10/2024 13:58:56 11.9 Below low normal 12 .0-15.3 (g/dL) Final HCT 12/10/2024 13:58:56 37.7 36.0-45.2 (%) Final MCV 12/10/2024 13:58:56 95.7 81.5-97.5 (fL) Final MCH 12/10/2024 13:58:56 30.2 27.0-34.0 (pg) Final MCHC 12/10/2024 13:58:56 31.6 32.0-36.0 (g/dL) Final RDW 12/10/2024 13:58:56 12.8 11.5-15.5 (%) Final Platelets 12/10/2024 13:58:56 229 140-400 (K /uL) Final MPV 12/10/2024 13:58:56 10.3 6.6-11.1 ( fL) Final Performing Location [facility] [place] [place] [address]
--- OUTSIDE RECORDS SUMMARY | 2024-12-27 20:16 | External Medical Summary ---
Author Name Unknown Address Unknown Organization K01:[facility] [address] [facility] [address] Laboratory Report Ordering Provider Test Date Status JENAE BARTLETTOLLY 12/10/2024 13:58:56 Final Observation Date Value Abnormality Reference (Units ) Status Iron 12/10/2024 13:58:56 89 33-151 (ug /dL) Final Iron-binding capacity 12/10/2024 13:58:56 338 250-425 (ug/dL) Final Transferrin Sat % 12/10/2024 13:58:56 26 15 -55 (%) Final Performing Location [facility] [address] [facility] [address]
--- OUTSIDE RECORDS SUMMARY | 2024-12-27 20:16 | External Medical Summary | Summary of Care ---
Author Name Unknown Organization [facility] Address [address] [place] [address] Phone [phone] Care Team Providers Care Wire Straightener Name Role Phone Hannah Ospina MD Primary Care Provider [phone] Reason for Visit * Reason Comments Re-Check Encounter Details Date Type Department Care Team (Late st Contact Info) Description 12/10/2024 1:00 PM EDT Office Visit [facility] [address] [facility] [place] [address] Hannah Ospina MD [address] [facility] [place] [place] [address] Dizziness*; Hypertension goal BP (blood pressure) < 140/90; Coronary artery disease involving [place] coronary artery of [place] heart with angina pectoris ([facility]); Chronic heart failure with preserved ejection fraction ([facility]); Dyslipidemia, goal LDL below 70; ARVIND (generalized anxiety disorder); Spinal stenosis of lumbar region, unspecified whether neurogenic claudication present; Cervical spinal stenosis; COPD (chronic obstructive pulmonary disease) with chronic bronchitis ([facility]); Stage 3b chronic kidney disease (CKD) ([facility]); Encounter for screening mammogram for malignant neoplasm of breast; Screening for depression Allergies Active Allergy Reactions Criticality Noted Date Comments Varenicline 12/11/2014 nausea Corticosteroids Other (Please comment) Medium 12/27/2013 Hyper, Mental Status Changes on oral steroids Dm-Apap-Cpm Anaphylaxis,Other (Please comment) High 12/27/2013 Contact dermatitis Ibuprofen Other (Please comment) Low 12/27/2013 Affects acid reflux Iodinated Contrast Media Hives 10/08/2007 Penicillins 10/09/2007 Rash documented as of this encounter (statuses as of 12/10/2024) Medications ASPIRIN 81 MG PO TABSIndications:Ca n [...] evening meals. 100 Tablet 8 1 Active hydrOXYzine HCl 25 MG Oral Tablet Take 1 Tablet by mouth every 6 hours as needed for Anxiety. 30 Tablet 2 4 Active Isosorbide Mononitrate ER 30 MG Oral Tablet Extended Release 24 Hour (Imdur) Take 1 Tablet by mouth in the morning. Active Atorvastatin Calcium 80 MG Oral Tablet (Lipitor)Indicatio ns:Mixed hyperlipidemia TAKE 1 TABLET BY MOUTH EVERY DAY IN THE MORNING 90 Tablet 3 4 Active Omeprazole 40 MG Oral Capsule Delayed Release (PriLOSEC)Indicati ons:Gastroesophage al reflux disease with esophagitis TAKE 1 CAPSULE BY MOUTH EVERY DAY 100 Capsule 3 4 Active Albuterol Sulfate (2.5 MG/3ML) 0.083% Inhalation Nebulization Solution (Proventil) Inhale 1 Vial via nebulizer every 4 hours as needed for Wheezing. 4 Active Ezetimibe 10 MG Oral Tablet (Zetia) Take 1 Tablet by mouth in the morning. 90 Tablet 1 4 Active Metoprolol Succinate ER 25 MG Oral Tablet Extended Release 24 Hour (toPROL XL)Indications:Cor onary artery disease involving [place] coronary artery of [place] heart with angina pectoris (HCC) TAKE 1/2 TABLET BY MOUTH DAILY 45 Tablet 3 4 Active Vitamin D3 50 MCG (2000 UT) Oral CapsuleIndications :Vitamin D deficiency Take 1 Capsule by mouth in the morning. 30 Capsule 5 4 Active Gabapentin 300 MG Oral Capsule (Neurontin) Take 1 Capsule by mouth 2 times a day. 4 Active Furosemide 40 MG Oral Tablet (Lasix) Take 1 Tablet by mouth once a day on Monday and Monday only. Active Albuterol Sulfate HFA 108 (90 Base) MCG/ACT Inhalation Aerosol SolutionIndication s:COPD, moderate (HCC) INHALE 2 PUFFS BY MOUTH EVERY 4 HOURS NEEDED FOR WHEEZING OR SHORTNESS OF BREATH. 18 g 1 4 Active Stiolto Respimat 2.5-2.5 MCG/ACT Inhalation Aerosol Solution (Tiotropium-Olodat sherita)Indications:C OPD (chronic obstructive pulmonary disease) with chronic bronchitis (HCC) Inhale 2 Puffs by mouth in the morning. 4 g 1 5 Active Amitriptyline HCl 10 MG Oral Tablet (Elavil) TAKE 2 TABLETS BY MOUTH AT BEDTIME 180 Tablet 2 5 Active HYDROcodone-Acetam inophen 5-325 MG Oral TabletIndications: Generalized osteoarthrosis, involving multiple sites Take 1 Tablet by mouth every 6 hours as needed for Pain, Moderate or Pain, Severe. Max 2 per day 60 Tablet 5 Active Nitroglycerin 0.4 MG Sublingual Tablet Sublingual (Nitrostat)Indicat ions:Chest pain, unspecified type Take 1 tab sublingual as needed for chest pain 25 Tablet 1 5 Active tiZANidine HCl 4 MG Oral Tablet (Zanaflex)Indicati ons:Cervical spinal stenosis TAKE 1 TABLET BY MOUTH EVERY 8 HOURS NEEDED FOR MUSCLE SPASM 30 Tablet 5 5 Active Sertraline HCl 100 MG Oral Tablet (Zoloft) TAKE 2 TABLETS BY MOUTH AT BEDTIME 180 Tablet 1 5 Active Hospital, Clinic, or Other Facility Administered Medication Ordered Dose Route Frequency Start Date End Date Status botulinum toxin type a (Botox) inj 200 UnitsIndications:Intractabl e chronic migraine without aura and without status migrainosus 200 Units IM [id number] 09/25/2024 08/27/2025 Active documented as of this encounter (statuses as of 12/10/2024) Active Problems Problem Noted Date Diagnosed Date [...] KATLYN-FRIDA Combination Inhaler Remote Patient Monitoring Vendor: [facility] Device(s): Connected Scale Self-Management plan High frequency [...] night. Member can be directed to [facility] at [phone] M-F 8am-5pm Coronary artery disease invo lving [place] coronary artery of [place] heart with angina pectoris 11/26/2023 Assessment & [...] as of this encounter (statuses as of 12/10/2024) Resolved Problems Problem Noted Date Diagnosed Date Resolved Date History of MN (myocardial infarction) 04/25/2023 09/10/2024 Syncope 04/25/2023 01/22/2024 [...] in the Comments) Remote Patient Monitoring Vendor: [employer] Device(s): Connected Scale Self - Management Plan Other/Additional Comments: restart lasix daily Exacerbation Plan Anticipated IV Lasix dose: 40 mg BMP Chest X-Ray Additional Comments: Euvolemic today. Nephrology 05/17/24--new pt-[id number] decline in renal function with lasix and [...] in the Comments) Remote Patient Monitoring Vendor: [employer] Device(s): Connected Scale Self - Management Plan [...] instruction and keep her follow up appointment 9/19 for further eval. Assessment & Plan (11/26/2023 [...] 04/05/2016 01/22/2024 Overview (04/05/2016): Started w/ [facility] 7/12/16 Vitamin D deficiency 11/02/2015 019 Rib pain [...] fx right #2,3,4,5 (CT done at [facility]) MEDICATION USE AGREEMENT 12/11/201408/2017 Overview (04/05/2016): Started [facility] 03/01/16 Signed [...] Having left sciatic sx's - followed by [facility] documented as of this encounter (statuses as of 12/10/2024) Immunizations Name Administration Dates Next Due COVID-19 mRNA, LNP-s, No Pre serve, 2-Dose Series ([employer]) 12/24/2021,05/21/2021,11/04/2020,10/14 COVID-19, MRNA-LNP, PF, 30 M CG/0.3 mL, 12 YRS AND ABOVE, IM [facility] 06/07/2023 Covid-19, Mrna, Lnp-s, Pf, B ivalent, 30 Mcg, IM, 12 yrs and above ([employer]) 05/09/2022 PPD 10/25/2021 Pneumococcal Conjugate Vacc, 13 [...] PM EDT documented as of this encounter Last Filed Vital Signs Vital Sign Reading Time Taken Comments Blood Pressure 124/60 12/10/2024 1:06 PM EDT Pulse 75 12/10/2024 1:06 PM EDT Temperature 36.2 °C (97.2 °F) 12/10/2024 1:06 PM ED T Respiratory Rate 18 12/10/2024 1:06 PM EDT Oxygen Saturation 99% 12/10/2024 1:06 PM EDT Inhaled Oxygen Concentration - - Weight 67.7 kg (149 lb 4 oz) 12/10/2024 1:06 PM EDT Height - - Body Mass Index 30.13 05/09/2024 9:01 AM EDT documented in this encounter Functional Status * Are you [...] Assessment Author No 03/15/2023 2:09 PM Josee Kingston RN documented as of this encounter Mental Status * Because of a physical, mental, or emotional condition, do you have serious difficulty concentrating, remembering, or making decisions? (5 years old or older) Answer Entry Date Author No 03/15/2023 2:09 PM EDT Josee Rene RN documented in this encounter Progress Notes * Hannah Ospina MD - 12/10/2024 1:05 PM EDT Subjective Chief Complaint Patient presents with Re-Check HPI: Sandy Fan is a 74 year old female. Patient is unaccompanied. The following issues were addressed today: Patient with hypertension, CKD stage IIIa, diastolic dysfunction, CAD, COPD, LE edema presents for follow-up. Patient states she has been getting lightheaded with rising out of a chair over the past few months. Has also happened with walking a few times. Feels like she has come close to passing out but hasn't. She states when she feels this way she needs to sit down for a few minutes. She states she has chest pain on and off but has had this for years and it is no worse than usual. She had a negative stress test in July. She denies any palpitations or increasing shortness of breath. Patient sees cardiology on 12/20/24. She does not drink much water during the day. Either drinks coffee or soda. We reviewed her medications, many of which may contribute to dizziness. She is on sertraline 200mg at bedtime. Has not been taking hydroxyzine but thinking about restarting. She states she has been under a lot of stress with how much her car payment is. Also worried about her mother's health. She also takes amitriptyline at bedtime for headaches. For her chronic back pain, she takes hydrocodone 5mg in the morning, tizanidine 4mg at bedtime, and gabapentin 300mg in the morning and the evening. If having a lot of pain takes an afternoon dose. She takes furosemide 40mg on Tuesdays and Fridays. Getting some swelling in her feet at the end of the day but overall manageable. Her breathing has been stable with current inhalers. Review of Systems: See HPI Objective BP 124/60 | Pulse 75 | Temp 97.2 °F (36.2 °C) (Tympanic) | Resp 18 | Wt 149 lb 4 oz (67.7 kg) | SpO2 99% | BMI 30.13 kg/m² | BSA 1.68 m² Wt Readings from Last 3 Encounters: 12/10/24 149 lb 4 oz (67.7 kg) 09/10/24 152 lb (68.9 kg) 07/04/24 149 lb (67.6 kg) BP Readings from Last 3 Encounters: 12/10/24 124/60 09/11/24 124/58 09/10/24 124/60 General: Well-appearing, no acute distress Head: Normocephalic and atraumatic Eyes: No conjunctival injection, no scleral icterus, extraocular movements are intact Ears: External ear unremarkable, canals normal and tympanic membranes clear bilaterally Nose: Nasal mucosa pink and moist, nares patent bilaterally Cardiovascular: Regular rate and rhythm Respiratory: Good respiratory effort, breath sounds equal and clear to auscultation bilaterally Extremities: No edema Neurological: Alert and oriented Psychiatric: Appropriate mood and affect Assessment & Plan 1. Dizziness Likely multifactorial. Patient on multiple sedating medications and beta- juan miguel, but reports uncontrolled pain and depression/anxiety without use of these. Will check labs. Recent cardiac studies reviewed, no change or explanation for dizziness. Will see cardiology next week. Advised to take position changes slowly and increase her water intake/decrease soda intake. Declines referral to physical therapy for balance training. - CBC WITH WBC DIFFERENTIAL; Future - COMPREHENSIVE METABOLIC PANEL; Future - TSH WITH FREE T4 IF INDICATED; Future - FERRITIN; Future - IRON SCREEN, INCLUDING TIBC; Future 2. Hypertension goal BP (blood pressure) < 140/90 Well-controlled. Continue current medications. 3. Coronary artery disease involving [place] coronary artery of [place] heart with angina pectoris (HCC) Stable. Continue current medications. 4. Chronic heart failure with preserved ejection fraction (HCC) Stable. Continue current medications. 5. Dyslipidemia, goal LDL below 70 Stable. Continue current medications. 6. ARVIND (generalized anxiety disorder) Stable. Continue current medications. 7. Spinal stenosis of lumbar region, unspecified whether neurogenic claudication present Stable. Continue current medications. 8. Cervical spinal stenosis Stable. Continue current medications. 9. COPD (chronic obstructive pulmonary disease) with chronic bronchitis (HCC) Stable. Continue current medications. 10. Stage 3b chronic kidney disease (CKD) (HCC) Stable. 11. Encounter for screening mammogram for malignant neoplasm of breast - MAMMOGRAM SCREENING FABIO BILATERAL; Future 12. Screening for depression - DEPRESSION SCREENING PERFORMED Return in about 6 months (around 06/11/2025) for establish care with Dr. Leon. This note was electronically signed by Hannah Ospina MD documented in this encounter Nursing Notes * Reta Ramos NA - 12/10/2024 1:03 PM EDT Sandy Fan presents for 3 month recheck. Patient complaining of dizziness ongoing for the past couple of months. Also notes she feels unsteady when she walks. Does not some chest discomfort. States she gets close to passing out but denies syncope. Denies chest pain at this time. Patient also complaining of cutting her hand and now has a lump in the area. Denies any pain. Medications & HM reviewed. documented in this encounter Plan of Treatment Upcoming Encounters Date Type Department Care Team (Late st Contact Info) Description 12/20/2024 10:00 AM EDT Office Visit Cardiology, [facility] [address] [place] [phone] Edward Oliver PA-C [address] [place] [phone] 02/10/2025 9:45 AM EDT Imaging Radiology [facility] [place] [address] [place] [phone] 06/04/2025 9:40 AM EDT Office Visit Nephrology, [facility] [address] [facility] [place] [address] Ritchie Childress MD [address] [facility] [place] [address] 07/07/2025 11:30 AM EST Imaging Radiology [facility] [address] [place] [address] 07/08/2025 11:00 AM EST Office Visit Rheumatology [facility] [address] [place] [phone] Yeyo Barrios MD [address] [place] [phone] 08/04/2025 10:20 AM EST Office Visit Family Practice [facility] [address] [facility] [place] [address] Oumar Leon, [address] [facility] [place], [place] [address] Pending Results Name Type Priority Associated Diagnoses Date /Time TSH WITH FREE T4 IF INDICATED Lab Routine Dizziness 12/10/2024 1:58 PM EDT FERRITIN Lab Routine Dizziness 12/10/2024 1:58 PM EDT IRON SCREEN, INCLUDING TIBC Lab Routine Dizziness 12/10/2024 1:58 PM EDT Scheduled Orders Name Type Priority Associated Diagnoses Orde r Schedule TSH WITH FREE T4 IF INDICATED Lab Routine Dizziness Expected: 12/10/2024 (Approximate), Expires: 12/10/2025 MAMMOGRAM SCREENING FABIO BILATERAL Medical Imaging Routine Encounter for screening mammogram for malignant neoplasm of breast Expected: 02/09/2025, Expires: 01/09/2026 FERRITIN Lab Routine Dizziness Expected: 12/10/2024, Expires: 12/10/2025 IRON SCREEN, INCLUDING TIBC Lab Routine Dizziness Expected: 12/10/2024, Expires: 12/10/2025 Scheduled Procedures Name Priority Associated Diagnoses Date/Ti [...] D LEVEL ONCE IN A LIFETIME-USE SMARTSET# 92205 Completed 05/17/2024, 03/07/2024, 07/05/2023, Additional history exists [...] this encounter Medical Devices Implanted Type Area Cook Room Supervisor Device Identifier Shelf Expiration Date Model / Serial / Lot Dbx 5cc [id number] - [id number] - [id number] Implanted:Qty : 1 on 01/20/2021 by Wyatt Ly MD at [facility] Tissue - Human N/A: Spine Cervical MUSCULOSKELETAL TRANSPLANT FND [id number] 08/22/2021 [id number] / [id number] / LOT NA Vitoss Bimodal Foam Pack 10cc - [id number] - [id number] Implanted:Qty : 1 on 01/20/2021 by Wyatt Ly MD at [facility] N/A: Spine Cervical PAULETTE : SPINE 12/16/[id number] / [id number] / [id number] 4.5 X 20mm Cortical Fixation Screw Implanted:Qty : 1 on 01/20/2021 by Wyatt Ly MD at [facility] N/A: Spine Cervical [employer] 1020-45-220 / / 4.5 X 22mm Cortical Fixation Screw Implanted:Qty : 1 on 01/20/2021 by Wyatt Ly MD at [facility] N/A: Spine Cervical [employer] 1020-45-222 / / 3.5 X 12mm Screws Implanted:Qty : 8 on 01/20/2021 by Wyatt Ly MD at [facility] N/A: Spine Cervical [employer] 1020-35-112 / / Set Screws Implanted:Qty : 10 on 01/20/2021 by Wyatt Ly MD at [facility] N/A: Spine Cervical [employer] 1020-00-000 / / 60mm Rods Implanted:Qty : 2 on 01/20/2021 by Wyatt Ly MD at [facility] N/A: Spine Cervical [employer] 1020-64-060 / / 1cm X 5cm Magnifuse Posterior Cervical Bone Graft (Formerly Osteotech) Implanted:Qty : 1 on 03/15/2023 by Wyatt Ly MD at [facility] N/A: Spine Lumbar Medtronic Sofam[employer]ogenek [id number] 01/05/2025 [id number] / [id number] / LOT NA Catalyft Pl Expandable Interbody System, Interbody Cage Implanted:Qty : 2 on 03/15/2023 by Wyatt Ly MD at [facility] N/A: Spine Lumbar Medtronic 03/08/2030 [id number] / / [id number] 6.5 X 45 Screw Implanted:Qty : 2 on 03/15/2023 by Wyatt Ly MD at [facility] N/A: Spine Lumbar Medtronic [id number] / / Description:No Exp. Date, us ed out of set 6.5 X 40 Screw Implanted:Qty : 2 on 03/15/2023 by Wyatt Ly MD at [facility] N/A: Spine Lumbar Medtronic [id number] / / Description:No Expiration da te, used out of set 7.5 X 40 Screw Implanted:Qty : 2 on 03/15/2023 by Wyatt Ly MD at [facility] N/A: Spine Lumbar Medtronic [id number] / / Description:No Expiration Da te, used out of set Screw Bone Ti Set Solera 4.75m - [id number] Implanted:Qty : 6 on 03/15/2023 by Wyatt Ly MD at [facility] N/A: Spine Lumbar [employer] [id number] / / Description:No Expiration Da te, used out of set [place] 4.75mm Pbent 55mm - [id number] Implanted:Qty : 2 on 03/15/2023 by Wyatt Ly MD at [facility] N/A: Spine Lumbar MEDTRONIC : NEUROLOGIC PAIN [id number] / / 10cc Mastergraft Biologic Matrix Ext Block Implanted:Qty : 1 on 03/15/2023 by Wyatt Ly MD at [facility] N/A: Spine Lumbar Medtronic Sofamor D[employer] [id number] 11/18/2025 [id number] / [id number] / [id number] Dbx 2.5cc [id number] - [id number] - [id number] Implanted:Qty : 1 on 03/15/2023 by Wyatt Ly MD at [facility] N/A: Spine Lumbar MUSCULOSKELETAL TRANSPLANT FND [id number] 08/04/2024 629832 / [id number] / LOT NA Dbx 2.5cc 041290 - [id number] - [id number] Implanted:Qty : 1 on 03/15/2023 by Wyatt Ly MD at [facility] N/A: Spine Lumbar MUSCULOSKELETAL TRANSPLANT FND [id number] 10/04/2024 [id number] / [id number] / LOT NA Graft Bone Infuse Kit Xsmall - [id number] - [id number] Implanted:Qty : 1 on 03/15/2023 by Wyatt Ly MD at [facility] N/A: Spine Lumbar MEDTR[employer]IC : NEUROLOGIC PAIN [id number] 07/20/2024 [id number] / [id number] / [id number] documented as of this encounter Results * (ABNORMAL) COMPREHENSIVE METABOLIC PANEL (12/10/2024 1:58 PM EDT) BUN 18 6 - 20 mg/dL 12/10/2024 3:43 PM EDT [facility] 56-02 CREATININE 1.1(H) 0.5 - 1.0 mg/dL 12/10/2024 3:43 PM EDT [facility] 56-02 EGFR 56(L) >=60 mL/min 12/10/2024 3:43 PM EDT [facility] 56 Comment:eGFR is calculated b ased on the CKD-EPI 2020 equation. SODIUM 141 135 - 146 mmol/L 12/10/2024 3:43 PM EDT [facility] 56 POTASSIUM 4.9 3.5 - 5.1 mmol/L 12/10/2024 3:43 PM EDT [facility] 56 CHLORIDE 105 98 - 107 mmol/L 12/10/2024 3:43 PM EDT [facility] 56 CO2 27 22 - 32 mmol/L 12/10/2024 3:43 PM EDT [address] ANION GAP 9 7 - 15 mmol/L 12/10/2024 3:43 PM EDT [address] GLUCOSE 94 70 - 120 mg/dL 12/10/2024 3:43 PM EDT [facility] 56 Albumin 4.2 3.8 - 5.0 g/dL 12/10/2024 3:43 PM EDT [address] AST 22 10 - 35 U/L 12/10/2024 3:43 PM EDT [facility] 56 Alkaline Phosphatase 104 35 - 130 U/L 12/10/2024 3:43 PM EDT [facility] 56 Bilirubin, Total 0.2 <=1.2 mg/dL 12/10/2024 3:43 PM EDT [facility] 56 CALCIUM 9.9 8.4 - 10.2 mg/dL 12/10/2024 3:43 PM EDT [facility] 56 Protein 7.1 6.0 - 8.3 g/dL 12/10/2024 3:43 PM EDT [facility] 56 ALT 15 10 - 35 U/L 12/10/2024 3:43 PM EDT [facility] 56 Blood Venous blood specimen / Unknown Venipuncture / Unknown 12/10/2024 1:58 PM EDT 12/10/2024 1:59 PM EDT us Hannah Opsina MD LAB BLOOD ORDERABLES Final Resu lt [facility] [address] [place] [address] documented in this encounter Visit Diagnoses Diagnosis Spinal stenosis [...] in partial or unspecified remission History of MN (myocardial infarction) Old myocardial infarction COPD, group B, by GOLD 2017 classification ([facility]) Hypomagnesemia Disorders of magnesium metabolism Hypertensive heart and kidney disease without heart failure and with stage 3a chronic kidney disease (HCC)- Primary Migraine without status migrainosus, not intractable, unspecified migraine type COPD, group B, by GOLD 2017 classification ([facility]) History of MN (myocardial infarction) Old myocardial infarction Major depressive disorder, recurrent episode, in partial remission (HCC) Major depressive disorder, recurrent episode, in partial or unspecified remission Spinal stenosis of lumbar region without neurogenic claudication Spinal stenosis, lumbar region, without neurogenic claudication Advanced care planning/counseling discussion Other specified counseling 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) Other emphysema Coronary artery disease involving [place] coronary artery of [place] heart with angina pectoris (HCC)- Primary COPD, [...] kidney disease (HCC) Coronary artery disease involving [place] coronary artery of [place] heart with angina pectoris (HCC) COPD (chronic obstructive pulmonary disease) with chronic bronchitis (HCC) Obstructive chronic bronchitis without exacerbation Hypertensive heart and kidney disease with chronic diastolic congestive heart failure and stage 3a chronic kidney disease (HCC)- Primary Chest pain, unspecified type Coronary artery disease involving [place] coronary artery of [place] heart with angina pectoris (HCC) Dysphagia, unspecified [...] Abdominal pain, unspecified site Insomnia, unspecified type Dizziness- Primary Dizziness and giddiness Hypertension goal BP (blood pressure) < 140/90 Unspecified essential hypertension Coronary artery disease involving [place] coronary artery of [place] heart with angina pectoris (HCC) Chronic heart failure with preserved ejection fraction (HCC) Dyslipidemia, goal LDL below 70 Other and unspecified hyperlipidemia ARVIND (generalized anxiety disorder) Generalized anxiety disorder Spinal stenosis of lumbar region, unspecified whether neurogenic claudication present Cervical spinal stenosis Spinal stenosis in cervical region COPD (chronic obstructive pulmonary disease) with chronic bronchitis (HCC) Obstructive chronic bronchitis without exacerbation Stage 3b chronic kidney disease (CKD) (HCC) Encounter for screening mammogram for malignant neoplasm of breast Other screening mammogram Screening for depression documented in this encounter Advance Directives * [...] Directives occurred with: Not Discussed Care Teams Wire Straightener Relationship Specialty Start Date End Date Hannah Ospina MD [address] [facility] [place] [address] PCP - General Family Medicine 04/11/24 documented as of this encounter
--- OUTSIDE RECORDS SUMMARY | 2024-12-27 20:16 | External Medical Summary | Summary of Care ---
Author Name Unknown Organization [facility] Address [address] [place] [address] Phone [phone] Care Team Providers Care Graphics Software Engineer Name Role Phone Hannah Ospina MD Primary Care Provider [phone] Reason for Visit * Reason Comments Outpatient Testing Encounter Details Date Type Department Care Team (Late st Contact Info) Description 12/10/2024 2:00 PM EDT Laboratory Laboratory [facility] [place] [address] [place] [address] Alpha, Lab Scenery [address] [facility] [place] [address] Dizziness Allergies Active Allergy Reactions Criticality Noted Date [...] Hour (toPROL XL)Indications: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 Member can be directed to [facility] at [phone] M-F 8am-5pm Coronary artery disease invo lving mesa grande coronary artery of mesa grande heart with angina pectoris 11/26/2023 Assessment & [...] Date Diagnosed Date Resolved Date History of NE (myocardial infarction) 04/25/2023 09/10/2024 Syncope 04/25/2023 01/22/2024 [...] in the Comments) Remote Patient Monitoring Vendor: [employer] Device(s): Connected Scale Self - Management Plan Other/Additional Comments: restart lasix daily Exacerbation Plan Anticipated IV Lasix dose: 40 mg BMP Chest X-Ray Additional Comments: Euvolemic today. Nephrology 05/17/24--new pt-MBM7m--zsxit decline in renal function with lasix and [...] in the Comments) Remote Patient Monitoring Vendor: [employer] Device(s): Connected Scale Self - Management Plan [...] fx right #2,3,4,5 (CT done at [facility]) MEDICATION USE AGREEMENT 12/11/201408/2017 Overview (04/05/2016): [...] mRNA, LNP-s, No Pre serve, 2-Dose Series ([email or web address]) 12/24/2021,05/21/2021,11/04/2020,10/14 COVID-19, MRNA-LNP, PF, 30 M CG/0.3 mL, 12 YRS AND ABOVE, IM (PFIZER-Comirnat) 06/07/2023 Covid-19, Mrna, Lnp-s, Pf, B ivalent, [...] Josee Rene RN documented in this encounter Plan of Treatment Upcoming Encounters Date Type Department Care Team (Late st Contact Info) Description 12/20/2024 10:00 AM EDT Office Visit Cardiology, [facility] [address] [place] [phone] Edward Oliver PA-C [address] [place] [address] 02/10/2025 9:45 AM EDT Imaging Radiology [facility] [address] [place] [address] 06/04/2025 9:40 AM EDT Office Visit Nephrology, [facility] [address] [place] [address] Ritchie Childress MD [address] [facility] [place] [address] 07/07/2025 11:30 AM EST Imaging Radiology [facility] [address] [place] [address] 07/08/2025 11:00 AM EST Office Visit Rheumatology [facility] [address] [place] [phone] Yeyo Barrios MD [address] [place] [address] 08/04/2025 10:20 AM EST Office Visit Family Practice [facility] [address] [place] [address] Oumar Leon, [address] [facility] [place] [address] Pending Results Name Type Priority Associated Diagnoses Date /Time TSH WITH FREE T4 IF INDICATED Lab Routine Dizziness 12/10/2024 1:58 PM EDT FERRITIN Lab Routine Dizziness 12/10/2024 1:58 PM EDT IRON SCREEN, INCLUDING TIBC Lab Routine Dizziness 12/10/2024 1:58 PM EDT Scheduled Procedures Name Priority Associated Diagnoses Date/Ti me COLONOSCOPY FLEXIBLE PROXIMAL DIAGNOSTIC Recall History of colon polyps Health Maintenance Due Date Last Done Comments Cologuard 1995 Sigmoidoscopy 1995 Fecal Occult Blood Test 09/22/1999 09/22/1998 Adult Wellness Visit 2016 Colonoscopy 03/19/2023 03/19/2018, 02/20, 02/27/2018, Additional history exists Colorectal Cancer Screening 03/19/2023 *BISPHONATE OR OTHER ACCEPTABLE MEDICATION NEEDED FOR OSTEOPOROSIS (REFER TO SMARTSET #9896) 07/07/2024 COVID-19 Vaccine ( season) 2024 05/24/2024, [...] D LEVEL ONCE IN A LIFETIME-USE SMARTSET# 29619 Completed 05/17/2024, 03/07/2024, 07/05/2023, Additional history exists [...] this encounter Medical Devices Implanted Type Area Farm Butcher Device Identifier Shelf Expiration Date Model / Serial / Lot Dbx 5cc [id number] - [id number] - [id number] Implanted:Qty : 1 on 01/20/2021 by Wyatt Ly MD at OR [facility] Tissue - Human N/A: Spine Cervical MUSCULOSKELETAL TRANSPLANT FND [id number] 08/22/2021 [id number] / [id number] / LOT NA Vitoss Bimodal Foam Pack 10cc - [id number] - [id number] Implanted:Qty : 1 on 01/20/2021 by Wyatt Ly MD at OR [facility] N/A: Spine Cervical PAULETTE : SPINE 12/16/202121016114-5628 / [id number] / [id number] 4.5 X 20mm Cortical Fixation Screw Implanted:Qty : 1 on 01/20/2021 by Wyatt Ly MD at OR [facility] N/A: Spine Cervical [employer] 1020-45-220 / / 4.5 X 22mm Cortical Fixation Screw Implanted:Qty : 1 on 01/20/2021 by Wyatt Ly MD at OR [facility] N/A: Spine Cervical [employer] 1020-45-222 / / 3.5 X 12mm Screws Implanted:Qty : 8 on 01/20/2021 by Wyatt Ly MD at OR [facility] N/A: Spine Cervical [employer] 1020-35-112 / / Set Screws Implanted:Qty : 10 on 01/20/2021 by Wyatt Ly MD at OR [facility] N/A: Spine Cervical [employer] 1020-00-000 / / 60mm Rods Implanted:Qty : 2 on 01/20/2021 by Wyatt Ly MD at OR [facility] N/A: Spine Cervical [employer] 1020-64-060 / / 1cm X 5cm Magnifuse Posterior Cervical Bone Graft (Formerly [employer]otech) Implanted:Qty : 1 on 03/15/2023 by Wyatt Ly MD at OR [facility] N/A: Spine Lumbar Medtronic Jaret Hernandez [id number] 01/05/2025 [id number] / [id number] / LOT [facility] [address] Expandable Interbody System, Interbody Cage Implanted:Qty : 2 on 03/15/2023 by Wyatt Ly MD at OR [facility] N/A: Spine Lumbar Medtronic 03/08/2030 [id number] / / [id number] 6.5 X 45 Screw Implanted:Qty : 2 on 03/15/2023 by Wyatt Ly MD at OR [facility] N/A: Spine Lumbar Medtronic [id number] / / Description:No Exp. Date, us ed out of set 6.5 X 40 Screw Implanted:Qty : 2 on 03/15/2023 by Wyatt Ly MD at OR [facility] N/A: Spine Lumbar Medtronic [id number] / / Description:No Expiration da te, used out of set 7.5 X 40 Screw Implanted:Qty : 2 on 03/15/2023 by Wyatt Ly MD at OR [facility] N/A: Spine Lumbar Medtronic [id number] / / Description:No Expiration Da te, used out of set Screw Bone Ti Set Solera 4.75m - [id number] Implanted:Qty : 6 on 03/15/2023 by Wyatt Ly MD at OR [facility] N/A: Spine Lumbar [employer]TR[employer]IC [facility] [id number] / / Description:No Expiration Da te, used out of set Anthony Indio 4.75mm Pbent 55mm - [id number] Implanted:Qty : 2 on 03/15/2023 by Wyatt Ly MD at OR [facility] N/A: Spine Lumbar MEDTRONIC : NEUROLOGIC PAIN [id number] / / 10cc Mastergraft Biologic Matrix Ext Block Implanted:Qty : 1 on 03/15/2023 by Wyatt Ly MD at OR [facility] N/A: Spine Lumbar Medtronic Sofamor Dbek [id number] 11/18/2025 [id number] / [id number] / [id number] Dbx 2.5cc 109910 - [id number] - [id number] Implanted:Qty : 1 on 03/15/2023 by Wyatt Ly MD at OR [facility] N/A: Spine Lumbar MUSCULOSKELETAL TRANSPLANT FND [id number] 08/04/2024 [id number] / [id number] / LOT NA Dbx 2.5cc 732028 - [id number] - [id number] Implanted:Qty : 1 on 03/15/2023 by Wyatt Ly MD at OR [facility] N/A: Spine Lumbar MUSCULOSKELETAL TRANSPLANT FND [id number] 10/04/2024 [id number] / [id number] / LOT NA Graft Bone Infuse Kit Xsmall - [id number] - [id number] Implanted:Qty : 1 on 03/15/2023 by Wyatt Ly MD at OR [facility] N/A: Spine Lumbar MEDTRONIC : NEUROLOGIC PAIN [id number] 07/20/2024 [id number] / [id number] / [id number] documented as of this encounter Procedures Procedure Name Priority Date/Time Associated Diagnosis Comments DIFFERENTIAL, AUTOMATED Routine 12/10/2024 1:58 PM EDT Dizziness COMPREHENSIVE METABOLIC PANEL Routine 12/10/2024 1:58 PM EDT Dizziness CBC Routine 12/10/2024 1:58 PM EDT Dizziness CBC Routine 12/10/2024 1:58 PM EDT Dizziness documented in this encounter Results * DIFFERENTIAL, AUTOMATED (12/10/2024 1:58 PM EDT) WBC 10.23 4.00 - 10.80 K/uL 12/10/2024 2:04 PM EDT [facility] 56- Neutrophils % 59.5 40.0 - 75.0 % 12/10/2024 2:04 PM EDT [facility] 56- Lymphocytes % 28.4 18.0 - 42.0 % 12/10/2024 2:04 PM EDT [facility] 56- Monocytes % 9.9 1.0 - 11.0 % 12/10/2024 2:04 PM EDT [facility] 56- Eosinophils % 1.8 0.0 - 6.0 % 12/10/2024 2:04 PM EDT [facility] 56- Basophils % 0.4 0.0 - 2.0 % 12/10/2024 2:04 PM EDT [facility] 56- Absolute Neutrophils 6.09 1.80 - 7.70 K/uL 12/10/2024 2:04 PM EDT [facility] 56- Absolute Lymphocytes 2.91 1.00 - 4.80 K/ul 12/10/2024 2:04 PM EDT [facility] 56- Absolute Monocytes 1.01 0.00 - 1.10 K/uL 12/10/2024 2:04 PM EDT [facility] 56- Absolute Eosinophils 0.18 0.00 - 0.70 K/uL 12/10/2024 2:04 PM EDT [facility] 56- Absolute Basophils 0.04 0.00 - 0.20 K/uL 12/10/2024 2:04 PM EDT [facility] 56 Blood Venous blood specimen / Unknown Venipuncture / Unknown 12/10/2024 1:58 PM EDT 12/10/2024 1:59 PM EDT us Hannah Ospina MD LAB BLOOD ORDERABLES Final Resu lt [facility] [address] [place] [address] * (ABNORMAL) CBC (12/10/2024 1:58 PM EDT) WBC 10.23 4.00 - 10.80 K/uL 12/10/2024 2:04 PM EDT [facility] RBC 3.94 3.85 - 5.15 M/uL 12/10/2024 2:04 PM EDT [facility] 56 HGB 11.9(L) 12.0 - 15.3 g/dL 12/10/2024 2:04 PM EDT [facility] 56 HCT 37.7 36.0 - 45.2 % 12/10/2024 2:04 PM EDT [facility] 56 MCV 95.7 81.5 - 97.5 fL 12/10/2024 2:04 PM EDT [facility] 56 MCH 30.2 27.0 - 34.0 pg 12/10/2024 2:04 PM EDT [facility] 56 MCHC 31.6 32.0 - 36.0 g/dL 12/10/2024 2:04 PM EDT [facility] 56 RDW 12.8 11.5 - 15.5 % 12/10/2024 2:04 PM EDT [facility] 56 PLT 229 140 - 400 K/uL 12/10/2024 2:04 PM EDT [facility] 56 MPV 10.3 6.6 - 11.1 fL 12/10/2024 2:04 PM EDT [facility] 56 Blood Venous blood specimen / Unknown Venipuncture / Unknown 12/10/2024 1:58 PM EDT 12/10/2024 1:59 PM EDT us Hannah Ospina MD LAB BLOOD ORDERABLES Final Resu lt [facility] [address] [place] [address] * (ABNORMAL) COMPREHENSIVE METABOLIC PANEL (12/10/2024 1:58 PM EDT) BUN 18 6 - 20 mg/dL 12/10/2024 3:43 PM EDT [facility] 56 CREATININE 1.1(H) 0.5 - 1.0 mg/dL 12/10/2024 3:43 PM EDT [facility] 56 EGFR 56(L) >=60 mL/min 12/10/2024 3:43 PM EDT [facility] 56 Comment:eGFR is calculated b ased on the CKD-EPI 2020 equation. SODIUM 141 135 - 146 mmol/L 12/10/2024 3:43 PM EDT [facility] 56 POTASSIUM 4.9 3.5 - 5.1 mmol/L 12/10/2024 3:43 PM EDT [facility] 56 CHLORIDE 105 98 - 107 mmol/L 12/10/2024 3:43 PM EDT [facility] 56 CO2 27 22 - 32 mmol/L 12/10/2024 3:43 PM EDT [facility] 56 ANION GAP 9 7 - 15 mmol/L 12/10/2024 3:43 PM EDT [address] GLUCOSE 94 70 - 120 mg/dL 12/10/2024 3:43 PM EDT [facility] 56 Albumin 4.2 3.8 - 5.0 g/dL 12/10/2024 3:43 PM EDT [address] AST 22 10 - 35 U/L 12/10/2024 3:43 PM EDT [address] Alkaline Phosphatase 104 35 - 130 U/L 12/10/2024 3:43 PM EDT [facility] 56 Bilirubin, Total 0.2 <=1.2 mg/dL 12/10/2024 3:43 PM EDT [facility] 56 CALCIUM 9.9 8.4 - 10.2 mg/dL 12/10/2024 3:43 PM EDT [facility] 56 Protein 7.1 6.0 - 8.3 g/dL 12/10/2024 3:43 PM EDT [address] ALT 15 10 - 35 U/L 12/10/2024 3:43 PM EDT [facility] 56 Blood Venous blood specimen / Unknown Venipuncture / Unknown 12/10/2024 1:58 PM EDT 12/10/2024 1:59 PM EDT us Hannah Ospina MD LAB BLOOD ORDERABLES Final Resu lt [facility] [address] [place] [address] documented in this encounter Visit Diagnoses Diagnosis [...] in partial or unspecified remission History of NE (myocardial infarction) Old myocardial infarction COPD, group B, by GOLD 2017 classification ([facility]) Hypomagnesemia Disorders of magnesium metabolism Hypertensive heart and kidney disease without heart failure and with stage 3a chronic kidney disease (HCC)- Primary Migraine without status migrainosus, not intractable, unspecified migraine type COPD, group B, by GOLD 2017 classification ([facility]) History of NE (myocardial infarction) Old myocardial infarction Major depressive disorder, recurrent episode, in partial remission (HCC) Major depressive disorder, recurrent episode, in partial or unspecified remission Spinal stenosis of lumbar region without neurogenic claudication Spinal stenosis, lumbar region, without neurogenic claudication Advanced care planning/counseling discussion Other specified counseling 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) Other emphysema 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)- Primary COPD, [...] kidney disease (HCC) 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) COPD (chronic obstructive pulmonary disease) with chronic bronchitis (HCC) Obstructive chronic bronchitis without exacerbation Hypertensive heart and kidney disease with chronic diastolic congestive heart failure and stage 3a chronic kidney disease (HCC)- Primary Chest pain, unspecified type 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) Dysphagia, unspecified [...] Abdominal pain, unspecified site Insomnia, unspecified type Dizziness Dizziness and giddiness documented in this encounter Advance Directives * [...] Directives occurred with: Not Discussed Care Teams Graphics Software Engineer Relationship Specialty Start Date End Date Hannah Ospina MD [address] [place] [address] PCP - General Family Medicine 04/11/24 documented as of this encounter
--- OUTSIDE RECORDS SUMMARY | 2024-12-27 20:16 | External Medical Summary ---
Author Name Unknown Address Unknown Organization K01:[facility] - [address] [facility] [address] Laboratory Report Ordering Provider Test Date Status KEVON BARTLETT 12/10/2024 13:58:56 Final Observation Date Value Abnormality Reference (Units ) Status TSH 12/10/2024 13:58:56 1.64 0.27-4.20 (uIU/mL) Final Performing Location [facility] - [address] [facility] [address]
--- OUTSIDE RECORDS SUMMARY | 2024-12-27 20:16 | External Medical Summary | Summary of Care ---
Author Name Unknown Organization [facility] Address [address] [place] [address] Phone [phone] Care Team Providers Care Mortgage Closing Clerk Name Role Phone Hannah Ospina MD Primary Care Provider [phone] Reason for Visit * Reason Comments eRx-Medication Refill Encounter Details Date Type Department Care Team (Late st Contact Info) Description 11/27/2024 Refill Family Practice [facility] [address] [facility] [place] [address] Hannah Ospina MD [address] [facility] [place] [address] Allergies Active Allergy Reactions Criticality Noted Date Comments Varenicline 12/11/2014 nausea Corticosteroids Other (Please comment) Medium 12/27/2013 Hyper, Mental Status Changes on oral steroids Dm-Apap-Cpm Anaphylaxis,Other (Please comment) High 12/27/2013 Contact dermatitis Ibuprofen Other (Please comment) Low 12/27/2013 Affects acid reflux Iodinated Contrast Media Hives 10/08/2007 Penicillins 10/09/2007 Rash documented as of this encounter (statuses as of 11/28/2024) Medications ASPIRIN 81 MG PO TABSIndications:C an be restarted after 7 days post surgery [...] Active Atorvastatin Calcium 80 MG Oral Tablet (Lipitor)Indicati ons:Mixed hyperlipidemia TAKE 1 TABLET BY MOUTH EVERY DAY IN THE MORNING 90 Tablet 3 02/14/20 24 Active Omeprazole 40 MG Oral Capsule Delayed Release (PriLOSEC)Indicat ions:Gastroesopha geal reflux disease with esophagitis TAKE 1 CAPSULE [...] Oral Tablet Extended Release 24 Hour (toPROL XL)Indications: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 30 Capsule 5 05/24/20 24 Active Gabapentin 300 MG Oral Capsule (Neurontin) Take 1 Capsule by mouth 2 times a day. 06/21/20 24 Active Furosemide 40 MG Oral Tablet (Lasix) Take 1 Tablet by mouth once a day on Monday and Monday only. Active Albuterol Sulfate HFA 108 (90 Base) MCG/ACT Inhalation Aerosol SolutionIndicatio ns:COPD, moderate (HCC) INHALE 2 PUFFS BY MOUTH EVERY 4 HOURS NEEDED FOR WHEEZING OR SHORTNESS OF BREATH. 18 g 1 08/15/20 24 Active Stiolto Respimat 2.5-2.5 MCG/ACT Inhalation Aerosol Solution (Tiotropium-Oloda terol)Indications :COPD (chronic obstructive pulmonary disease) with chronic bronchitis (HCC) Inhale 2 Puffs by mouth in the morning. 4 g 1 09/10/19 25 Active Amitriptyline HCl 10 MG Oral Tablet (Elavil) TAKE 2 TABLETS BY MOUTH AT BEDTIME 180 Tablet 2 10/03/19 25 Active HYDROcodone-Aceta minophen 5-325 MG Oral TabletIndications :Generalized osteoarthrosis, involving multiple sites Take 1 Tablet by mouth every 6 hours as needed for Pain, Moderate or Pain, Severe. Max 2 per day 60 Tablet 11/09/19 25 Active Nitroglycerin 0.4 MG Sublingual Tablet Sublingual (Nitrostat)Indica tions:Chest pain, unspecified type Take 1 tab sublingual as needed for chest pain 25 Tablet 1 11/27/19 25 Active tiZANidine HCl 4 MG Oral Tablet (Zanaflex)Indicat ions:Cervical spinal stenosis TAKE 1 TABLET BY MOUTH EVERY 8 HOURS NEEDED FOR MUSCLE SPASM 30 Tablet 5 11/29/19 25 Active Sertraline HCl 100 MG Oral Tablet (Zoloft) TAKE 2 TABLETS BY MOUTH AT BEDTIME 180 Tablet 1 11/29/19 25 Active Sertraline HCl 100 MG Oral Tablet (Zoloft) Take 2 Tablets by mouth at bedtime. 180 Tablet 1 05/20/20 24 2024 Discontinued Hospital, Clinic, or Other Facility Administered Medication Ordered Dose Route Frequency Start Date End Date Status botulinum toxin type a (Botox) inj 200 UnitsIndications:Intractabl e chronic migraine without aura and without status migrainosus 200 Units IM [id number] 09/25/2024 08/27/2025 Active documented as of this encounter (statuses as of 11/28/2024) Active Problems Problem Noted Date Diagnosed Date [...] KATLYN-FRIDA Combination Inhaler Remote Patient Monitoring Vendor: [facility] [place] Device(s): Connected Scale Self-Management plan High frequency [...] at night. Member can be directed to [facility] at [phone] M-F 8am-5pm Adjustment disorder with anxious mood 11/26/2023 Migraine [...] be why ARVIND (generalized anxiety disorder) 05/21/2018 Diastolic dysfunction 11/24/2017 Age-related osteoporosis wit hout current pathological fracture 09/10/2015 Overview (09/10/2015): Fosamax started 09/10/15 DEXA: 2016: S/H: -2.7/-2.2 - high risk Assessment & Plan (09/11/2024 3:06 PM EST): Rheumatology 07/04/2024-follow up with the osteoporosis-continue drug holiday Dyslipidemia Generalized osteoarthrosis, involving multiple s ites Gastroesophageal reflux disease without esophagi tis Overview (10/25/2016): EGD 10/25/16: normal EGD 04/15/15: normal esophagus, + gastric erythema: bx pending documented as of this encounter (statuses as of 11/28/2024) Resolved Problems Problem Noted Date Diagnosed Date Resolved Date Coronary artery disease invo lving [place] coronary artery of [place] heart with angina pectoris 11/26/2023 09/10/2024 Assessment & Plan (06/18/2024 12:10 PM EDT): [...] and isosorbide. Stress test scheduled for 12/22/23 History of AR (myocardial infarction) 04/25/2023 09/10/2024 [...] No oral replacement currently Hypertensive heart and kidne y disease with chronic diastolic congestive heart failure and stage 3a chronic kidney disease 04/13/202308/22 Assessment & Plan (06/18/2024 12:12 PM EDT): "RED FLAG" HF Symptoms: NO IDENTIFIED SYMPTOMS Medication Regimen: Beta Juan Miguel Therapy: Metoprolol Succinate (ER) MONA Inhibitor/ARB Therapy: No MONA/ARB/ARNI Diuretic therapy: No diuretic secondary to d/c by pcp SGLT2 Inhibitor: No Current SGLT2 (Describe in the Comments) Remote Patient Monitoring Vendor: [employer] Device(s): Connected Scale Self - Management Plan Other/Additional Comments: restart lasix daily Exacerbation Plan Anticipated IV Lasix dose: 40 mg BMP Chest X-Ray Additional Comments: Euvolemic today. Nephrology 05/17/24--new pt-BSR1e--dsnrq decline in renal function with lasix and [...] in the Comments) Remote Patient Monitoring Vendor: [employer] Device(s): Connected Scale Self - Management Plan [...] disease 05/21/2018 08/29/2022 Lumbar radiculopathy 06/02/2017 018 Overview (06/02/2017): MRI 06/01/17L L5-S1 moderate left foraminal stenosis due to disc - ligament swelling, + facet arthropathy GCA (giant cell arteritis) 03/22/2017 0 04/18/2017 Swelling 12/23/2016 05/21/2018 Chronic daily headache 12/23/201605/21 Pain management 04/05/2016 01/22/2024 Overview (04/05/2016): Started w/ [facility] 03/01/16 Vitamin D deficiency 11/02/2015 019 Rib [...] non-displaced fx right #2,3,4,5 (CT done at [facility]) MEDICATION USE AGREEMENT 12/11/201408/2017 Overview [...] as of this encounter (statuses as of 11/28/2024) Immunizations Name Administration Dates Next Due COVID-19 mRNA, LNP-s, No Pre serve, 2-Dose Series (KlickEx) 12/24/2021,05/21/2021,11/04/2020,10/14 COVID-19, MRNA-LNP, PF, 30 M CG/0.3 mL, 12 YRS AND ABOVE, IM ([facility]) 06/07/2023 Covid-19, Mrna, Lnp-s, Pf, B ivalent, [...] 10/29/2021 Hunger Vital Sign Answer Date Recorded Within [...] 05/01/2024 Transportation Needs Answer Date Record ed READ ONLY Do you have troubl e getting a ride to medical visits or work? Never True 05/01/2024 Does your family have a hard [...] place to sleep at night? No 05/01/2024 READ ONLY Do you think you a re at risk of becoming homeless? No 05/01/2024 Does your family worry about paying [...] encounter Miscellaneous Notes * Telephone Encounter - Jigna Lay, [facility] - 11/28/2024 9:31 AM EDT Signed Prescriptions: Disp Refills Sertraline HCl 100 MG Oral Tablet (Zoloft) 180 Ta*1 Sig: TAKE 2TABLETS BY MOUTH AT BEDTIMEAuthorizing Provider: Gisele OSPINA User: JIGNA LAY documented in this encounter Plan of Treatment Upcoming Encounters Date Type Department Care Team (Late st Contact Info) Description 12/10/2024 1:00 PM EDT Office Visit Family Practice [facility] [address] [place] [address] Hannah Ospina MD [address] [facility] [place] [address] 12/20/2024 10:00 AM EDT Office Visit Cardiology, [facility] [address] [place] [phone] Edward Oliver, PA-C [address] [place] [address] 06/04/2025 9:40 AM EDT Office Visit Nephrology, [facility] [address] [place] [address] Ritchie Childress MD [address] [place] [address] 07/07/2025 11:30 AM EST Imaging Radiology [facility] [address] [place] [id number] 07/08/2025 11:00 AM EST Office Visit Rheumatology [facility] [address] [place] [phone] Yeyo Barrios MD [address] [place] [address] [place] [address] Scheduled Procedures Name Priority Associated Diagnoses Date/Ti me COLONOSCOPY FLEXIBLE PROXIMAL DIAGNOSTIC Recall History of colon polyps Health Maintenance Due Date Last Done Comments Cologuard 1995 Sigmoidoscopy 1995 Fecal Occult Blood Test 09/22/1999 09/22/1998 Adult Wellness Visit 2016 Depression Monitoring 10/29/2022 10/29/2021 Colonoscopy 03/19/2023 03/19/2018, 02/20, 02/27/2018, Additional history exists Colorectal Cancer Screening 03/19/2023 *BISPHONATE OR OTHER ACCEPTABLE MEDICATION NEEDED FOR OSTEOPOROSIS (REFER TO SMARTSET #1146) 07/07/2024 COVID-19 Vaccine ( season) 2024 05/24/2024, 07/09/2023, 06/07/2023, Additional history exists Mammogram 02/08/2025 02/09/2024, 01/20, 12/06/2022, Additional history exists GFR 03/10/2025 09/10/2024, 04/22, 03/12/2024, Additional history exists Albumin/Creatinine Ratio 05/17/2025 024, 02/25/2022, 02/02/2021 DXA Scan 07/03/2025 07/03/2023, 06/21, 06/21/2021, Additional history exists O2 ASSESSMENT COMPLETED IN PAST YEAR FOR COPD 09/11/2025 09/11/2024 Lipid Panel 03/01/2029 03/01/2024, 04/22, 10/25/2021, Additional history exists DTap/Tdap Vaccines (4 - Td or Tdap) 04/27/2032 04/27/2022, 12/01/2011, 12/04/1999 RETIRED - COLONOSCOPY-EVERY 5 YRS AGES 18-100 Discontinued 03/19/2018, 03/19/2018, 02/27/2018, Additional history exists Zoster Vaccines Completed 04/23/2020, 02/18, 03/25/2015 Pneumococcal Vaccine: 50+ Years Completed 05/25/2020, 07/04/2017, 12/08/2015, Additional history exists Influenza Vaccine (FLU shot) Completed 05/09/2024, 05/07/2023, 05/05/2022, Additional history exists VITAMIN D LEVEL ONCE IN A LIFETIME-USE SMARTSET# 86625 Completed 05/17/2024, 03/07/2024, 07/05/2023, Additional history exists [...] this encounter Medical Devices Implanted Type Area Blade Sharpener Device Identifier Shelf Expiration Date Model / Serial / Lot Dbx 5cc [id number] - [id number] - [id number] Implanted:Qty : 1 on 01/20/2021 by Wyatt Ly MD at [facility] Tissue - Human N/A: Spine Cervical MUSCULOSKELETAL TRANSPLANT FND [id number] 08/22/2021 [id number] / [id number] / LOT NA Vitoss Bimodal Foam Pack 10cc - [id number] - [id number] Implanted:Qty : 1 on 01/20/2021 by Wyatt Ly MD at OR [facility] N/A: Spine Cervical PAULETTE : SPINE 12/16/[id number] / [id number] / [id number] 4.5 X 20mm Cortical Fixation Screw Implanted:Qty : 1 on 01/20/2021 by Wyatt Ly MD at OR [facility] N/A: Spine Cervical [employer] 1020-45-220 / / 4.5 X 22mm Cortical Fixation Screw Implanted:Qty : 1 on 01/20/2021 by Wyatt Ly MD at OR [facility] N/A: Spine Cervical [employer] 1020-45-222 / / 3.5 X 12mm Screws Implanted:Qty : 8 on 01/20/2021 by Wyatt Ly MD at OR [facility] N/A: Spine Cervical [employer] 1020-35-112 / / Set Screws Implanted:Qty : 10 on 01/20/2021 by Wyatt Ly MD at OR [facility] N/A: Spine Cervical [employer] 1020-00-000 / / 60mm Rods Implanted:Qty : 2 on 01/20/2021 by Wyatt Ly MD at OR [facility] N/A: Spine Cervical [employer]PU[employer] 1020-64-060 / / 1cm X 5cm Magnifuse Posterior Cervical Bone Graft (Formerly Osteotech) Implanted:Qty : 1 on 03/15/2023 by Wyatt Ly MD at OR [facility] N/A: Spine Lumbar Medtronic Sofamor Danek [id number] 01/05/2025 [id number] / [id number] / LOT NA Catalyft Pl Expandable Interbody System, Interbody Cage Implanted:Qty : 2 on 03/15/2023 by Wyatt Ly MD at OR [facility] N/A: Spine Lumbar Medtronic 03/08/2030 [id number] / / [id number] 6.5 X 45 Screw Implanted:Qty : 2 on 03/15/2023 by Wyatt Ly MD at OR [facility] N/A: Spine Lumbar Medtronic [id number] / / Description:No Exp. Date, us ed out of set 6.5 X 40 Screw Implanted:Qty : 2 on 03/15/2023 by Wyatt Ly MD at OR [facility] N/A: Spine Lumbar Medtronic [id number] / / Description:No Expiration da te, used out of set 7.5 X 40 Screw Implanted:Qty : 2 on 03/15/2023 by Wyatt Ly MD at OR [facility] N/A: Spine Lumbar Medtronic [id number] / / Description:No Expiration Da te, used out of set Screw Bone Ti Set Solera 4.75m - [id number] Implanted:Qty : 6 on 03/15/2023 by Wyatt Ly MD at [facility] N/A: Spine Lumbar [employer] [id number] / / Description:No Expiration Da te, used out of set Anthony Onancock 4.75mm Pbent 55mm - [id number] Implanted:Qty : 2 on 03/15/2023 by Wyatt Ly MD at [facility] N/A: Spine Lumbar MEDTRONIC : NEUROLOGIC PAIN [id number] / / 10cc Mastergraft Biologic Matrix Ext Block Implanted:Qty : 1 on 03/15/2023 by Wyatt Ly MD at OR [facility] N/A: Spine Lumbar Medtronic Sofamor Danek [id number] 11/18/2025 [id number] / [id number] / [id number] Dbx 2.5cc [id number] - [id number] - [id number] Implanted:Qty : 1 on 03/15/2023 by Wyatt Ly MD at OR [facility] N/A: Spine Lumbar MUSCULOSKELETAL TRANSPLANT FND [id number] 08/04/2024 [id number] / [id number] / LOT NA Dbx 2.5cc [id number] - [id number] - [id number] Implanted:Qty : 1 on 03/15/2023 by Wyatt Ly MD at OR [facility] N/A: Spine Lumbar MUSCULOSKELETAL TRANSPLANT FND [id number] 10/04/2024 [id number] / [id number] / LOT NA Graft Bone Infuse Kit Xsmall - [id number] - [id number] Implanted:Qty : 1 on 03/15/2023 by Wyatt Ly MD at OR [facility] N/A: Spine Lumbar MEDTRONIC : NEUROLOGIC PAIN [id number] 07/20/2024 [id number] / [id number] / [id number] documented as of this encounter Advance Directives [...] Directives occurred with: Not Discussed Care Teams Mortgage Closing Clerk Relationship Specialty Start Date End Date Hannah Ospina MD [address] [place] [address] PCP - General Family Medicine 04/11/24 documented as of this encounter
--- OUTSIDE RECORDS SUMMARY | 2024-12-27 20:16 | External Medical Summary | Summary of Care ---
Author Name Unknown Organization [facility] Address [address] [place] [address] Phone [phone] Care Team Providers Care Hand Cigar Making Supervisor Name Role Phone Dhruv Ospina MD Primary Care Provider [phone] Reason for Visit * Reason Comments eRx-Medication Refill Encounter Details Date Type Department Care Team (Late st Contact Info) Description 11/27/2024 Refill Family Practice [facility] [address] [place] [address] Cedric Dwoney III, MD [address] [place] [address] Cervical spinal stenosis Allergies Active Allergy Reactions [...] morning and evening meals. 100 Tablet 8 11/10/20 21 Active hydrOXYzine HCl 25 MG Oral [...] Hour (toPROL XL)Indications:Co ronary artery disease involving kaguy[place] coronary artery of [place] heart with angina pectoris (HCC) TAKE 1/2 [...] 180 Tablet 1 05/20/20 24 2024 Discontinued tiZANidine HCl 4 MG Oral Tablet (Zanaflex)Indicat ions:Cervical spinal stenosis TAKE 1 TABLET BY MOUTH EVERY 8 HOURS NEEDED FOR MUSCLE SPASMS 30 Tablet 5 05/20/20 24 2024 Discontinued Hospital, Clinic, or Other Facility Administered Medication Ordered Dose Route Frequency Start Date End Date Status botulinum toxin type a (Botox) inj 200 UnitsIndications:Intractabl e chronic migraine without aura and without status migrainosus 200 Units IM [id number] 09/25/2024 08/27/2025 Active documented as of this [...] KATLYN-FRIDA Combination Inhaler Remote Patient Monitoring Vendor: [facility] Device(s): Connected Scale Self-Management plan High frequency [...] at night. Member can be directed to [facility] at [phone] M-F 8am-5pm Adjustment disorder with anxious mood [...] Resolved Date Coronary artery disease invo lving kaguy[place] coronary artery of [place] heart with angina pectoris 11/26/2023 09/10/2024 Assessment [...] Stress test scheduled for 12/22/[address] (myocardial infarction) 04/25/2023 09/10/2024 Syncope 04/25/2023 01/22/2024 [...] in the Comments) Remote Patient Monitoring Vendor: [employer] Device(s): Connected Scale Self - Management Plan Other/Additional Comments: restart lasix daily Exacerbation Plan Anticipated IV Lasix dose: 40 mg BMP Chest X-Ray Additional Comments: Euvolemic today. Nephrology 05/17/24--new pt-[id number]--tntcu decline in renal function with lasix and [...] in the Comments) Remote Patient Monitoring Vendor: [employer] Device(s): Connected Scale Self - Management Plan [...] fx right #2,3,4,5 (CT done at [facility]) MEDICATION USE AGREEMENT 12/11/201408/2017 Overview (04/05/2016): Started [...] Having left sciatic sx's - followed by [facility] documented as of this encounter (statuses as of 11/28/2024) Immunizations Name Administration Dates Next Due COVID-19 mRNA, LNP-s, No Pre serve, 2-Dose Series ([employer]) 12/24/2021,05/21/2021,11/04/2020,10/14 COVID-19, MRNA-LNP, PF, 30 M CG/0.3 mL, 12 YRS AND ABOVE, IM ([facility] 06/07/2023 Covid-19, Mrna, Lnp-s, Pf, B ivalent, [...] Telephone Encounter - Dhruv Ospina MD - 11/28/2024 9:11 AM EDTSigned Prescriptions: Disp Refills tiZANidine HCl 4 MG Oral Tablet (Zanaflex) 30 Tab*5 Sig: TAKE 1 TABLET BY MOUTH EVERY 8 HOURS NEEDED FOR MUSCLE SPASM Authorizing Provider: DHRUV OSPINA * Telephone Encounter - Blake Klein [facility] - 11/28/2024 8:59 AM EDT Pending Prescriptions: Disp Refills tiZANidine HCl 4 MG Oral Tablet [Pharmacy *30 Tab*5 Sig: TAKE 1 TABLET BY MOUTH EVERY 8 HOURS NEEDED FOR MUSCLE SPASM * Telephone Encounter - Blake Klein [facility] - 11/28/2024 8:59 AM EDT [facility] is currently not authorized to approve refills for the pended medication(s) per refill protocol. Pending Prescriptions: Disp Refills tiZANidine HCl 4 MG Oral Tablet (Zanaflex*30 Tab*5 Sig: TAKE 1 TABLET BY MOUTH EVERY 8 HOURS NEEDED FOR MUSCLE SPASM Please approve if appropriate. Thank you Nicanor Klein, PharmD Clinical Pharmacist [facility] PH:[phone] 11/28/2024, 8:59 AM documented in this encounter Plan of Treatment Upcoming Encounters Date Type Department Care Team (Late st Contact Info) Description 12/10/2024 1:00 PM EDT Office Visit [facility] [place] [address] [place] [address] Dhruv Ospina MD [address] [place] [address] 12/20/2024 10:00 AM EDT Office Visit Cardiology, [facility] [address] [place] [phone] Edward Oliver [facility] [address] [place] [address] 06/04/2025 9:40 AM EDT Office Visit Nephrology, [facility] [address] [place] [address] Ritchie Childress MD [address] [place] [address] 07/07/2025 11:30 AM EST Imaging Radiology [facility] [address] [place] [id number] 07/08/2025 11:00 AM EST Office Visit Rheumatology [facility] [address] [place] [phone] Yeyo Barrios MD [facility] [place] [address] Scheduled Procedures Name Priority Associated Diagnoses Date/Ti [...] D LEVEL ONCE IN A LIFETIME-USE SMARTSET# 17496 Completed 05/17/2024, 03/07/2024, 07/05/2023, Additional history exists [...] this encounter Medical Devices Implanted Type Area Transformation Consultant Device Identifier Shelf Expiration Date Model / Serial / Lot Dbx 5cc [id number] - [id number] - [id number] Implanted:Qty : 1 on 01/20/2021 by Wyatt Ly MD at OR [facility] Tissue - Human N/A: Spine Cervical MUSCULOSKELETAL TRANSPLANT FND [id number] 08/22/2021 [id number] / [id number] / LOT NA Vitoss Bimodal Foam Pack [facility] - [id number] - [id number] Implanted:Qty : 1 on 01/20/2021 by Wyatt Ly MD at OR [facility] N/A: Spine Cervical PAULETTE : SPINE 12/16/[id number] / [id number] / [id number] 4.5 X 20mm Cortical Fixation Screw Implanted:Qty [...] Implanted:Qty : 2 on 01/20/2021 by Wyatt yL MD at OR [facility] N/A: Spine Cervical [employer] [id number] / / 1cm X 5cm Magnifuse Posterior Cervical Bone Graft (Formerly [employer]) Implanted:Qty : 1 on 03/15/2023 by Wyatt Ly MD at OR [facility] N/A: Spine Lumbar Medtronic Sofamor Danek [id number] 01/05/2025 [id number] / [id number] / LOT [address] Expandable Interbody System, Interbody Cage Implanted:Qty : 2 on 03/15/2023 by Wyatt Ly MD at OR [facility] N/A: Spine Lumbar Medtronic 03/08/2030 [id number] / / [id number] 6.5 X 45 Screw Implanted:Qty : 2 on 03/15/2023 by Wyatt Ly MD at OR [facility] N/A: Spine Lumbar Medtronic [id number] / / Description:No Exp. Date, us ed out of set 6.5 X 40 Screw Implanted:Qty : 2 on 03/15/2023 by Wyatt Ly MD at OR [facility] N/A: Spine Lumbar Medtronic [id number] / / Description:No Expiration da te, used out of set 7.5 X 40 Screw Implanted:Qty : 2 on 03/15/2023 by Wyatt Ly MD at OR [facility] N/A: Spine Lumbar Medtronic [id number] / / Description:No Expiration Da te, used out of set Screw Bone Ti Set Solera 4.75m - [id number] Implanted:Qty : 6 on 03/15/2023 by Wyatt Ly MD at OR [facility] N/A: Spine Lumbar [employer] [id number] / / Description:No Expiration Da te, used out of set Anthony Townsend 4.75mm Pbent 55mm - [id number] Implanted:Qty : 2 on 03/15/2023 by Wyatt Ly MD at OR [facility] N/A: Spine Lumbar MEDTRON[employer] : NEUROLOGIC PAIN [id number] / / 10cc Mastergraft Biologic Matrix Ext Block Implanted:Qty : 1 on 03/15/2023 by Wyatt Ly MD at OR [facility] N/A: Spine Lumbar Medtronic Sofamor Danek [id number] 11/18/2025 [id number] / [id number] / [id number] Dbx 2.5cc [id number] - [id number] - [id number] Implanted:Qty : 1 on 03/15/2023 by Wyatt Ly MD at OR [facility] N/A: Spine Lumbar MUSCULOSKELETAL TRANSPLANT FND [id number] 08/04/2024 [id number] / [id number] / LOT NA Dbx 2.5cc [id number] - [id number] - [id number] Implanted:Qty : 1 on 03/15/2023 by Wyatt Ly MD at OR [facility] N/A: Spine Lumbar MUSCULOSKELETAL TRANSPLANT FND [id number] 10/04/2024 [id number] / [id number] / LOT NA Graft Bone Infuse Kit Xsmall - [id number] - [id number] Implanted:Qty : 1 on 03/15/2023 by Wyatt Ly MD at OR [facility] N/A: Spine Lumbar [employer] : NEUROLOGIC PAIN [id number] 07/20/2024 [id number] / [id number] / [id number] documented as of this encounter Visit Diagnoses [...] in partial or unspecified remission History of CT (myocardial infarction) Old myocardial infarction COPD, group B, by GOLD 2017 classification ([facility]) Hypomagnesemia Disorders of magnesium metabolism Hypertensive heart and kidney disease without heart failure and with stage 3a chronic kidney disease (HCC)- Primary Migraine without status migrainosus, not intractable, unspecified migraine type COPD, group B, by GOLD 2017 classification ([facility]) History of CT (myocardial infarction) Old myocardial infarction Major depressive disorder, recurrent episode, in partial remission (HCC) Major depressive disorder, recurrent episode, in partial or unspecified remission Spinal stenosis of lumbar region without neurogenic claudication Spinal stenosis, lumbar region, without neurogenic claudication Advanced care planning/counseling discussion Other specified counseling 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) Other emphysema Moderate episode of recurrent major depressive disorder [...] kidney disease (HCC) Coronary artery disease involving kaguy[place] coronary artery of [place]aguy[place] heart with angina pectoris (HCC) COPD (chronic obstructive pulmonary disease) with chronic bronchitis (HCC) Obstructive chronic bronchitis without exacerbation Hypertensive heart and kidney disease with chronic diastolic congestive heart failure and stage 3a chronic kidney disease (HCC)- Primary Chest pain, unspecified type Coronary artery disease involving kaguy[place] coronary artery of [place]uy[place] heart with angina pectoris (HCC) Dysphagia, unspecified [...] Abdominal pain, unspecified site Insomnia, unspecified type Cervical spinal stenosis Spinal stenosis in cervical region documented in this encounter Advance Directives * [...] Directives occurred with: Not Discussed Care Teams Hand Cigar Making Supervisor Relationship Specialty Start Date End Date Dhruv Ospina MD [address] [place] [address] PCP - General Family Medicine 04/11/24 documented as of this encounter
--- OUTSIDE RECORDS SUMMARY | 2024-12-27 20:16 | External Medical Summary ---
Author Name Unknown Address Unknown Organization K09:[facility] [address] Laboratory Report Ordering Provider Test Date Status KEVON BARTLETT 12/10/2024 13:58:56 Final Observation Date Value Abnormality Reference (Units ) Status SYNC LEUKOCYTES IN BLOOD BY AUTOMATED COUNT 12/10/2024 13:58:56 10.23 4.00-10.80 (K/uL) Final Segs 12/10/2024 13:58:56 59.5 40.0-75.0 (%) Final Lymphs % 12/10/2024 13:58:56 28.4 18.0-42.0 (%) Final Monos 12/10/2024 13:58:56 9.9 1.0-11.0 (%) Final Eosinophils 12/10/2024 13:58:56 1.8 0.0-6.0 (%) Final Basos 12/10/2024 13:58:56 0.4 0.0-2.0 (%) Final Absolute Segs 12/10/2024 13:58:56 6.09 1.80-7.70 (K/uL) Final Lymphs, absolute 12/10/2024 13:58:56 2.91 1.00-4.80 (K/ul) Final Monos, Abs 12/10/2024 13:58:56 1.01 0.00-1.10 (K/uL) Final Eos, Abs 12/10/2024 13:58:56 0.18 0.00-0.70 (K/uL) Final Basos, Abs 12/10/2024 13:58:56 0.04 0.00-0.20 (K/uL) Final Performing Location [facility] [place] [address]
--- OUTSIDE RECORDS SUMMARY | 2024-12-27 20:16 | External Medical Summary | Summary of Care ---
Author Name Unknown Organization [facility] Address [address] [place] [address] Phone [phone] Care Team Providers Care Canoe Inspector Final Name Role Phone Hannah Ospina MD Primary Care Provider [phone] Reason for Visit * Reason Comments Follow Up Encounter Details Date Type Department Care Team (Latest Contact Info) Description 12/20/2024 10:00 AM EDT Office Visit Cardiology, [facility] [address] [place] [address] Edward Oliver, PA-C [address] [place] [address] Orthostasis*; Atypical chest pain; Dyslipidemia, goal LDL below 70; Nonobstructive atherosclerosis of coronary artery; JANE (dyspnea on exertion) Allergies Active Allergy Reactions Criticality Noted Date Comments Varenicline 12/11/2014 nausea Corticosteroids Other (Please comment) Medium 12/27/2013 Hyper, Mental Status Changes on oral steroids Dm-Apap-Cpm Anaphylaxis,Other (Please comment) High 12/27/2013 Contact dermatitis Ibuprofen Other (Please comment) Low 12/27/2013 Affects acid reflux Iodinated Contrast Media Hives 10/08/2007 Penicillins 10/09/2007 Rash documented as of this encounter (statuses as of 12/21/2024) Medications ASPIRIN 81 MG PO TABSIndications:C an be restarted after 7 days post surgery 1 tablet by mouth daily Active Calcium Carbonate 600 MG Oral Tablet Take 1 Tablet by mouth 2 times a day with morning and evening meals. 60 Tab 5 016 Active Acetaminophen ER 650 MG Oral Tablet Extended Release (Tylenol 8 Hour) Take 2 Tablets by mouth 2 times a day 30 minutes before morning and evening meals. 100 Tablet 8 021 Active hydrOXYzine HCl 25 MG Oral Tablet Take 1 Tablet by mouth every 6 hours as needed for Anxiety. 30 Tablet 2 024 Active Isosorbide Mononitrate ER 30 MG Oral Tablet Extended Release 24 Hour (Imdur) Take 1 Tablet by mouth in the morning. Active Atorvastatin Calcium 80 MG Oral Tablet (Lipitor)Indicati ons:Mixed hyperlipidemia TAKE 1 TABLET BY MOUTH EVERY DAY IN THE MORNING 90 Tablet 3 024 Active Omeprazole 40 MG Oral Capsule Delayed Release (PriLOSEC)Indicat ions:Gastroesopha geal reflux disease with esophagitis TAKE 1 CAPSULE BY MOUTH EVERY DAY 100 Capsule 3 024 Active Albuterol Sulfate (2.5 MG/3ML) 0.083% Inhalation Nebulization Solution (Proventil) Inhale 1 Vial via nebulizer every 4 hours as needed for Wheezing. 024 Active Ezetimibe 10 MG Oral Tablet (Zetia) Take 1 Tablet by mouth in the morning. 90 Tablet 1 024 Active Metoprolol Succinate ER 25 MG Oral Tablet Extended Release 24 Hour (toPROL XL)Indications:Co ronary artery disease involving manzanita coronary artery of manzanita heart with angina pectoris (HCC) TAKE 1/2 TABLET BY MOUTH DAILY 45 Tablet 3 024 Active Vitamin D3 50 MCG (2000 UT) Oral CapsuleIndication s:Vitamin D deficiency Take 1 Capsule by mouth in the morning. 30 Capsule 5 024 Active Gabapentin 300 MG Oral Capsule (Neurontin) Take 1 Capsule by mouth 2 times a day. 024 Active Albuterol Sulfate HFA 108 (90 Base) MCG/ACT Inhalation Aerosol SolutionIndicatio ns:COPD, moderate (HCC) INHALE 2 PUFFS BY MOUTH EVERY 4 HOURS NEEDED FOR WHEEZING OR SHORTNESS OF BREATH. 18 g 1 024 Active Stiolto Respimat 2.5-2.5 MCG/ACT Inhalation Aerosol Solution (Tiotropium-Oloda terol)Indications :COPD (chronic obstructive pulmonary disease) with chronic bronchitis (HCC) Inhale 2 Puffs by mouth in the morning. 4 g 1 025 Active Additional Information Patient not taking.Reported on 12/20/2024 Amitriptyline HCl 10 MG Oral Tablet (Elavil) TAKE 2 TABLETS BY MOUTH AT BEDTIME 180 Tablet 2 025 Active Nitroglycerin 0.4 MG Sublingual Tablet Sublingual (Nitrostat)Indica tions:Chest pain, unspecified type Take 1 tab sublingual as needed for chest pain 25 Tablet 1 025 Active tiZANidine HCl 4 MG Oral Tablet (Zanaflex)Indicat ions:Cervical spinal stenosis TAKE 1 TABLET BY MOUTH EVERY 8 HOURS NEEDED FOR MUSCLE SPASM 30 Tablet 5 025 Active Sertraline HCl 100 MG Oral Tablet (Zoloft) TAKE 2 TABLETS BY MOUTH AT BEDTIME 180 Tablet 1 025 Active HYDROcodone-Aceta minophen 5-325 MG Oral TabletIndications :Generalized osteoarthrosis, involving multiple sites Take 1 Tablet by mouth every 6 hours as needed for Pain, Moderate or Pain, Severe. Max 2 per day 60 Tablet 025 Active Furosemide 40 MG Oral Tablet (Lasix) Take 0.5 Tablets by mouth once a day on Monday, Monday, and Monday only. 025 Active Furosemide 40 MG Oral Tablet (Lasix) Take 1 Tablet by mouth once a day on Monday and Monday only. 2024 Discontinued Hospital, Clinic, or Other Facility Administered Medication Ordered Dose Route Frequency Start Date End Date Status botulinum toxin type a (Botox) inj 200 UnitsIndications:Intractabl e chronic migraine without aura and without status migrainosus 200 Units IM [id number] 09/25/2024 08/27/2025 Active documented as of this encounter (statuses as of 12/21/2024) Active Problems Problem Noted Date Diagnosed Date [...] KATLYN-FRIDA Combination Inhaler Remote Patient Monitoring Vendor: [facility] Device(s): Connected Scale Self-Management plan High frequency [...] at night. Member can be directed to [facility] at [phone] M-F 8am-5pm Coronary artery disease invo lving manzanita coronary artery of manzanita heart with angina pectoris 11/26/2023 Assessment & [...] as of this encounter (statuses as of 12/21/2024) Resolved Problems Problem Noted Date Diagnosed Date Resolved Date History of MS (myocardial infarction) 04/25/2023 09/10/2024 Syncope 04/25/2023 01/22/2024 [...] in the Comments) Remote Patient Monitoring Vendor: [employer] Device(s): Connected Scale Self - Management Plan Other/Additional Comments: restart lasix daily Exacerbation Plan Anticipated IV Lasix dose: 40 mg BMP Chest X-Ray Additional Comments: Euvolemic today. Nephrology 05/17/24--new [id number] decline in renal function with lasix and [...] in the Comments) Remote Patient Monitoring Vendor: [employer] Device(s): Connected Scale Self - Management Plan [...] non-displaced fx right #2,3,4,5 (CT done at [facility]) MEDICATION USE AGREEMENT 12/11/201408/2017 Overview (04/05/2016): Started [...] Having left sciatic sx's - followed by [facility] documented as of this encounter (statuses as of 12/21/2024) Immunizations Name Administration Dates Next Due COVID-19 mRNA, LNP-s, No Pre serve, 2-Dose Series ([employer]) 12/24/2021,05/21/2021,11/04/2020,10/14 COVID-19, MRNA-LNP, PF, 30 M CG/0.3 mL, 12 YRS AND ABOVE, IM ([employer]) 06/07/2023 Covid-19, Mrna, Lnp-s, Pf, B ivalent, [...] Sign Reading Time Taken Comments Blood Pressure 140/74 12/20/2024 10:05 AM EDT Pulse 80 12/20/2024 10:05 AM EDT Temperature - - Respiratory Rate 20 12/20/2024 10:05 AM EDT Oxygen Saturation - - Inhaled Oxygen Concentration - - Weight 67.5 kg (148 lb 12 oz) 12/20/2024 10:05 A M EDT Height - - Body Mass Index 30.03 05/09/2024 9:01 AM EDT documented in this [...] documented in this encounter Progress Notes * Edward Oliver PA-C - 12/20/2024 10:17 AM EDT History of Present Illness: Sandy Fan is a 74 year old female who presents today for routine 6-month cardiology follow-up evaluation. Patient admitted to [facility] in October 2023 with recurrent atypical chest discomfort. EKG without acute change. High sensitivity troponin negative. Resting echocardiography on 11/08/2023 revealed normal LVsystolic function, EF 60-65% without wall motion abnormality. Mild concentric LVH was observed along with grade I diastolic dysfunction, mild tricuspid regurgitation with an estimated systolic pulmonary pressure of 43 mmHg. Possible vasospastic component noted by Dr. Gray. Lisinopril 2.5 mg/dayadded along with Isosorbide mononitrate 30 mg daily. Outpatient Lexiscan nuclear stress testing recommended for further risk stratification (no showed 12/22/2023). Syncope episode on 12/15/2023. 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 She notes turning and looking at a woman then "everything started spinning." She notes a woman came to her side and helped lower her to the ground. She notes that they wanted to call 911 however the patient refused. ? LOC. No seizure type activity, tongue biting, or incontinence. Patient notes that prior to this event she saw the bottle for Lisinopril sitting there and decided to take one for the first time. She notes "that was the first time and the last time I'm taking that (lisinopril)." 7-day Zio monitor ordered (RE: Dizziness, near syncope, intermittent palpitations) but never obtained. December 20, 2024 Office Visit: Under a significant amount of stress. Does not get along with her one sister. Sandy notes being very close to her mother who has dementia. Her mother fell and broke her hip about a month ago. They had to put her in a home ([facility] in [place]) a couple of months ago. While outside with her mother on Monday her siblings came and were very upset that Sandy allowed her mother to smoke. Sandy had to leave instead of causing a scene. She did not have her anxiety pillsso she took sublingual nitroglycerin which seemed to help the chest pain. Hydroxyzine also helps the chest pain . Chest pain notably reproducible with palpation. She notes dizziness with positional ch anges. She describes stable fluid retention. No syncope. No fevers or chills. No melena, hematochezia, or hematuria. 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 ([facility]) Adjustment disorder with anxious mood Moderate episode of recurrent major depressive disorder (HCC) COPD (chronic obstructive pulmonary disease) with chronic bronchitis (HCC) Hypertension goal BP (blood pressure) < 140/90 Dysphagia Chronic heart failure with preserved ejection fraction (HCC) Flank pain Insomnia Past Medical History: Diagnosis Date Anxiety and depression Arthritis Back problem Chronic daily headache 12/23/2016 CKD (chronic kidney disease) COPD (chronic obstructive pulmonary disease) (HCC) Esophageal reflux Generalized osteoarthrosis, involving multiple sites Hematuria, unspecified HTN (hypertension) Hypomagnesemia Mixed hyperlipidemia Neuralgia, neuritis, and radiculitis, unspecified Osteoporosis 09/10/2015 Fosamax started 09/10/15 DEXA: 2016: S/H: -2.7/-2.2 - high risk Pain management 04/05/2016 Started w/ [facility] 03/01/16 Unspecified asthma(493.90) resolved per pt Urinary tract infection, site not specified Past Surgical History: Procedure Laterality Date ALLOGRAFT, MORSELIZED, FOR SPINE SURGERY N/A 03/15/2023 ALLOGRAFT FOR SPINE SURGERY MORSELIZED performed by Wyatt Ly MD at OR [facility] AUTOGRAFT, SPINE SURG, MORSELIZED N/A 03/15/2023 OBTAIN AUTOGRAFT FOR SPINE SURGERY MORSELIZED SEPARATE INCISION performed by Wyatt Ly MD at OR [facility] BONE MARROW ASPIRATION BONE GRAFTING SPINE SURGERY ONLY N/A 03/15/2023 BONE MARROW ASPIRATION FOR SPINE BONE GRAFTING performed by Wyatt Ly MD at OR [facility] CARPAL TUNNEL SURGERY 2011 Left DELIVERY 1970 COLONOSCOPY W/ BIOPSY (RECTUM) 10/08/2007 lipoma, hemorriods COLONOSCOPY, DIAGNOSTIC (RECTUM) 04/15/2015 normal, repeat in 3 yrs/COLONOSCOPY FLEXIBLE PROXIMAL DIAGNOSTIC performed by Judith White DO atENDOSCOPY [facility] COLONOSCOPY, DIAGNOSTIC (RECTUM) 02/27/2018 poor prep, repeat/COLONOSCOPY FLEXIBLE PROXIMAL DIAGNOSTIC performed by Judith White DO at ENDOSCOPY [facility] COLONOSCOPY, DIAGNOSTIC (RECTUM) 03/19/2018 normal, repeat 5 yrs/COLONOSCOPY FLEXIBLE PROXIMAL DIAGNOSTIC performed by Judith White DO at ENDOSCOPY [facility] CYSTOSCOPY 2013 DILATION AND CURETTAGE (D&C) EGD, FLEXIBLE, DIAGNOSTIC 10/08/2007 wnl EGD, FLEXIBLE, DIAGNOSTIC 04/15/2015 mild irritation of the stomach/ESOPHAGOGASTRODUODENOSCOPY (EGD), FLEXIBLE, TRANSORAL, DIAGNOSTIC performed by Judith White DO at ENDOSCOPY [facility] EGD, FLEXIBLE, DIAGNOSTIC 10/25/2016 normal/ESOPHAGOGASTRODUODENOSCOPY (EGD), FLEXIBLE, TRANSORAL, DIAGNOSTIC performed by Judith White DO at ENDOSCOPY [facility] INSERT BIOMECH DEVICE INTERVERTEBRAL DISC SPACE W/ARTHRODESIS N/A 03/15/2023 INSERTION INTERBODY BIOMECHANICAL DEVICE ANTERIOR W/INTERBODY ARTHRODESIS performed by Wyatt Ly MD at OR [facility] NECK SPINE FUSION (CERV, BELOW C2) N/A 01/20/2021 ARTHRODESIS SPINE POSTERIOR CERVICAL performed by Wyatt Ly MD at OR [facility] OTHER (INFORMATION) 12/29/[address] Santos REMOVE ADDED SPINE LAMINA, 1 SEG N/A 01/20/2021 LAMINECTOMY FACETECTOMY AND FORAMINOTOMY ADDITIONAL LEVELS performed by Wyatt Ly MD at OR [facility] REMOVE GALLBLADDER 2017 REMOVE LUMBAR SPINE LAMINA, 1 SEG N/A 03/15/2023 LAMINECTOMY FACETECTOMY AND FORAMINOTOMY LUMBAR performed by Wyatt Ly MD at OR [facility] REMOVE NECK SPINE LAMINA, 1 SEG N/A 01/20/2021 LAMINECTOMY FACETECTOMY AND FORAMINOTOMY POSTERIOR CERVICAL performed by Wyatt Ly MD at OR [facility] SHOULDER SURGERY PROCEDURE NEC 11/1997 Right - arthroscopy SPINAL FUSION, ADD'L INTERSPACE N/A 03/15/2023 SPINAL FUSION POSTERIOR OR POSTERIOR LATERAL, ADD'L INTERSPACE performed by Wyatt Ly MD at OR [facility] SPINAL FUSION, LUMBAR, COMBINED N/A 03/15/2023 ARTHRODESIS SPINE POSTERIOR OR POSTERIOR LATERAL WITH LAMINECTOMY LUMBAR, COMBINED performed by Wyatt Ly MD at OR [facility] SPINE FUSION, EACH ADD'L VERTEBRA N/A 01/20/2021 ARTHRODESIS SPINE POSTERIOR EACH ADDITIONAL VERTEBRAE performed by Wyatt Ly MD at OR [facility] SPINE SEG FIX, POST, 3-6 SEG, INSERT N/A 01/20/2021 POSTERIOR SPINE SEGMENTAL INSTRUMENTATION 3 TO 6 PSF performed by Wyatt Ly MD at [facility] SPINE SEG FIX, POST, 3-6 SEG, INSERT N/A 03/15/2023 POSTERIOR SPINE SEGMENTAL INSTRUMENTATION 3 TO 6 PSF performed by Wyatt Ly MD at OR [facility] TOTAL HYSTERECTOMY DUB - ovaries intact Family History: Denies family history of premature coronary disease Family History Problem Relation Name Age of Onset Arthritis Mother Hypertension Mother Other (Other) Mother Hypercholesterolemia Heart attack Father Arthritis Sister Breast Cancer Sister Arthritis Sister Hypertension Brother Other (Other) Brother cholesterol Breast Cancer Aunt (Paternal) Family Status Relation Status Fa at age 55 MS Mo Alive Sis Alive Bro Alive Sis Alive Son Alive Son Alive PAUNT Social History: Former tobacco abuse Social History Socioeconomic History Marital status: Tobacco Use Smoking status: Former Smoker Packs/day: 0.25 Years: 51.00 Pack years: 12.75 Types: Cigarettes Smokeless tobacco: Never Used Tobacco comment: 2 cigarettes a day Substance and Sexual Activity Alcohol use: No Drug use: No Sexual activity: Not on file Lifestyle Complete Review of Systems is as stated above, negative, or noncontributory. Review of patient's allergies indicates: Allergen Reactions Dm-Apap-Cpm Anaphylaxis and Other (Please comment) Contact dermatitis Corticosteroids Other (Please comment) Hyper, Mental Status Changes on oral steroids Chantix [Varenicline] nausea Iodinated Contrast Media Hives Penicillin [Penicillins] Rash Ibuprofen Other (Please comment) Affects acid reflux Current Outpatient Medications Medication Sig Dispense Refill [...] morning and evening meals. 100 Tablet 8 hydrOXYzine HCl 25 MG Oral Tablet Take 1 Tablet by mouth every 6 hours as needed for Anxiety. 30 Tablet 2 Isosorbide Mononitrate ER 30 MG Oral Tablet Extended Release 24 Hour (Imdur) Take 1 Tablet by mouthin the morning. Atorvastatin Calcium 80 MG Oral Tablet (Lipitor) TAKE 1 TABLET BY MOUTH EVERY DAY IN THE MORNING 90Tablet 3 Omeprazole 40 MG Oral Capsule Delayed Release (PriLOSEC) TAKE 1 CAPSULE BY MOUTH EVERY DAY 100 Capsule 3 Albuterol Sulfate (2.5 MG/3ML) 0.083% Inhalation Nebulization Solution (Proventil) Inhale 1 Vial via nebulizer every 4 hours as needed for Wheezing. Ezetimibe 10 MG Oral Tablet (Zetia) Take 1 Tablet by mouth in the morning. 90 Tablet 1 Metoprolol Succinate ER 25 MG Oral Tablet Extended Release 24 Hour (toPROL XL) TAKE 1/2 TABLET BY MOUTH DAILY 45 Tablet 3 Vitamin D3 50 MCG (2000 UT) Oral Capsule Take 1 Capsule by mouth in the morning. 30 Capsule 5 Gabapentin 300 MG Oral Capsule (Neurontin) Take 1 Capsule by mouth 2 times a day. Furosemide 40 MG Oral Tablet (Lasix) Take 1 Tablet by mouth once a day on Monday and Monday only. Albuterol Sulfate HFA 108 (90 Base) MCG/ACT Inhalation Aerosol Solution INHALE 2 PUFFS BY MOUTH EVERY 4 HOURS NEEDED FOR WHEEZING OR SHORTNESS OF BREATH. 18 g 1 Amitriptyline HCl 10 MG Oral Tablet (Elavil) TAKE 2 TABLETS BY MOUTH AT BEDTIME 180 Tablet 2 Nitroglycerin 0.4 MG Sublingual Tablet Sublingual (Nitrostat) Take 1 tab sublingual as needed for chest pain 25 Tablet 1 tiZANidine HCl 4 MG Oral Tablet (Zanaflex) TAKE 1 TABLET BY MOUTH EVERY 8 HOURS NEEDED FOR MUSCLE SPASM 30 Tablet 5 Sertraline HCl 100 MG Oral Tablet (Zoloft) TAKE 2 TABLETS BY MOUTH AT BEDTIME 180 Tablet 1 HYDROcodone-Acetaminophen 5-325 MG Oral Tablet Take 1 Tablet by mouth every 6 hours as needed for Pain, Moderate or Pain, Severe. Max 2 per day 60 Tablet 0 Stiolto Respimat 2.5-2.5 MCG/ACT Inhalation Aerosol Solution (Tiotropium- Olodaterol) Inhale 2 Puffsby mouth in the morning. (Patient not taking: Reported on 12/20/2024) 4 g 1 Current Facility-Administered Medications Medication Dose Route Frequency Provider Last Rate Last Admin botulinum toxin type a (Botox) inj 200 Units 200 Units Intramuscular Q12 Weeks OBJECTIVE/PHYSICAL EXAMINATION: BP 140/74 (BP Site: Left Arm) | Pulse 80 | Resp 20 | Wt 67.5 kg (148 lb 12 oz) | BMI 30.03 kg/m² |BSA 1.68 m² BP on my evaluation was 136/66 with drop to 128/64 with positional change. General: A&Ox3. NAD. HENT: Normocephalic. Atraumatic. Eyes: PER. Conjunctiva pink, sclera clear. Neck: Right carotid bruit. No JVD. No HJR. Chest: Reproducible left sided musculoskeletal chest discomfort Heart: RRR. 80 bpm. Soft systolic murmur Lungs: Diminished. Decreased. Clear. Abdomen: +BS. Soft. Nontender. No masses or organomegaly. Extremities: Tight 1+ bilateral lower extremity peripheral edema, with mild stasis changes, withoutclubbing or cyanosis Limited neurological examination is without focal deficits. Pulses: radial=2/4, posterior tibial=1/4. Data: Cardiac catheterization performed by Dr. Isabel, [facility] 02/2018 Summary: Nonobstructive coronary disease. 40-50% mid RCA. 40% near take off of RPDA September 06, 2019 Coronary Angiography ([facility], Dr. Roland) Findings: LM - angiographically normal LAD -medium caliber vessel, 40% mid segment disease after takeoff of first diagonal. Mid to distal LAD small and tapers prior to apex. First diagonal with 20% ostial disease. Circumflex -new caliber vessel, 20 to 30% mid segment disease. RCA -large caliber vessel, dominant, 40% proximal disease, 20 to 30% mid segment disease, distal luminal irregularities. 30-40 % ostial PDA. Normal intracardiac filling pressure April 13, 2020 Lexiscan Interpretation Summary (as per Dr. Gray): Lexiscan nuclear stress testis positive for inducible ischemia. The area of ischemia is small involving the left ventricular apex. Calculated total myocardial ischemic burden in 7%. Gated SPECT images reveals normal myocardial thickening and wall motion. The LV ejection fraction is calculated at >75%. Compared to prior Jody scan nuclear stress test report dated December 2017, (performed via [facility]) reversible apical defect unchanged. Reports adverse reaction to dobutamine in the past with resultant near-syncope. November 08, 2023 TTE Interpretation Summary ([facility], Dr. Gray): LV systolic function normal. EF 60-65%. Mild concentric LVH. Grade I diastolic dysfunction. Normal LV wall motion. Mild TR. Estimated PASP 43 mmHG. LDL cholesterol 53 mg/dL on 11/08/2023 June 21, 2024 EKG: Normal sinus rhythm at 79 bpm. Inferior and anterior T wave abnormality. Voltage criteria for LVH. Possible old anterior infarct. QTc 449 ms. When compared to the most recent available EKG, there are new anterior T-wave changes however today's EKG looks the same as an EKG dated November 07, 2023 July 30, 2024 Lexiscan Interpretation Summary (as per Dr. Gray): Lexiscan nuclear myocardial perfusion imaging study is negative for inducible ischemia. Gated SPECT images reveals normal myocardial thickening and wall motion. The LV ejection fraction is calculated at >70%. Compared to study dated April 13, 2020, reversible apical perfusion defect no longer present. ASSESSMENT: Longstanding atypical chest discomfort, occasionally reproducible with palpation of the chest wall. Intermittent orthostasis. Diastolic congestive heart failure Nonobstructive coronary disease per cardiac catheterization in 2017 and August 2019. Pulmonary hypertension. Prior sleep testing in February 2017 with a AHI of 0.2, average SpO2 88%, time <89% 146 minutes. Nocturnal hypoxemia attributed to COPD with nocturnal oxygen supplementation ordered but never initiated. Dyslipidemia goal LDL less than 70 mg/dL. Right carotid bruit. Carotid duplex in February 2023 revealed mild bilateral internal carotid artery disease, previously reported to have 50 to 69% right internal carotid artery disease via August 2021 duplex. Repeat carotid duplex planned for February 2025 Options of management discussed. Via shared decision-making, will proceed as follows: RECOMMENDATIONS/PLAN: General measures advised. Decrease furosemide slightly from 40 mg twice a week to 20 mg three nonconsecutive days per week (MWF) Utilize knee high compression stocking, on in the AM and off in the PM. Routine Cardiology follow-up in 6 months, or as needed. ER with emergencies. Edward Oliver PA-C Department of Cardiology I spent a total of 30-39 minutes (exact time 30 mins) on the date of service in preparation, delivery, and documentation of the care provided to Sandy Fan excluding any time spent in the performance of separately billed services. This visit involved medical care services related to at least one serious condition or complex condition requiring ongoing care. This chart was completed in part utilizing [employer] Speech Voice Recognition Software. Grammatical errors, random word insertions, prounoun errors, and incomplete sentences are an occasional consequence of this system due to software limitations, ambient noise, and hardware issues. Any formal questions or concerns about the content, text, or information contained within the body of this dictation should be directly addressed to the provider for clarification. documented in this encounter Nursing Notes * Janet Mendosa CMA - 12/20/2024 10:02 AM EDT Examination Room: 1 Name: Sandy Fan Date of : (1950). Reason for Visit: f/u Interim Hospitalization(s): Problems/Concerns: see below Chest Pain/SOB: Chest pain at rest and exertion, says due to stress. She took 2 nitro on Monday and 4 nitro on Monday as well. Nitro relieves CP. [facility] Discussed: Yes [facility] is a way you can talk to your provider online through e-mail. Would you like to sign up? I can activate it for you? ALREADY ACTIVE Patient was instructed to not get up on the exam table until directed and assisted by their provider; patient is to remain seated in the chair/ wheelchair/ exam table for fall prevention and safety reasons. Patient is aware to have assistance to step down off exam table with personnel. Patient voiced full comprehension of instructions. documented in this encounter Plan of Treatment Upcoming Encounters Date Type Department Care Team (Late st Contact Info) Description 02/10/2025 9:45 AM EDT Imaging Radiology [facility] [address] [facility] [address] [place] [phone] 06/04/2025 9:40 AM EDT Office Visit Nephrology, [facility] [address] [place] [address] Ritchie Childress MD [address] [place] [address] 07/07/2025 11:30 AM EST Imaging Radiology [facility] [address] [place] [phone] 07/08/2025 11:00 AM EST Office Visit Rheumatology [facility] [address] [place] [phone] Yeyo Barrios MD [address] [place] [phone] 08/04/2025 10:20 AM EST Office Visit [facility] [address] [place] [address] Oumar Leon DO [address] [place] [address] Scheduled Procedures Name Priority Associated Diagnoses Date/Ti [...] D LEVEL ONCE IN A LIFETIME-USE SMARTSET# 24318 Completed 05/17/2024, 03/07/2024, 07/05/2023, Additional history exists [...] this encounter Medical Devices Implanted Type Area Superintendent Service Device Identifier Shelf Expiration Date Model / Serial / Lot Dbx 5cc [id number] - [id number] - [id number] Implanted:Qty : 1 on 01/20/2021 by Wyatt Ly MD at [facility] Tissue - Human N/A: Spine Cervical MUSCULOSKELETAL TRANSPLANT FND [id number] 08/22/2021 [id number] / [id number] / LOT NA Vitoss Bimodal Foam Pack 10cc - [id number] - [id number] Implanted:Qty : 1 on 01/20/2021 by Wyatt Ly MD at [facility] N/A: Spine Cervical PAULETTE : SPINE 12/16/2021 [id number] / [id number] / [id number] 4.5 X 20mm Cortical Fixation Screw Implanted:Qty : 1 on 01/20/2021 by Wyatt Ly MD at [facility] N/A: Spine Cervical [employer] 1020-45-220 / / 4.5 X 22mm Cortical Fixation Screw Implanted:Qty : 1 on 01/20/2021 by Wyatt Ly MD at [facility] N/A: Spine Cervical [employer] 1020-45-222 / / 3.5 X 12mm Screws Implanted:Qty : 8 on 01/20/2021 by Wyatt Ly MD at [facility] N/A: Spine Cervical [employer] 1020-35-112 / / Set Screws Implanted:Qty : 10 on 01/20/2021 by Wyatt Ly MD at [facility] N/A: Spine Cervical [employer] 1020-00-000 / / 60mm Rods Implanted:Qty : 2 on 01/20/2021 by Wyatt Ly MD at [facility] N/A: Spine Cervical [employer] 1020-64-060 / / 1cm X 5cm Magnifuse Posterior Cervical Bone Graft (Formerly [employer]) Implanted:Qty : 1 on 03/15/2023 by Wyatt Ly MD at [facility] N/A: Spine Lumbar Medtronic Jaret Hernandez [id number] 01/05/2025 [id number] / [id number] / [facility] Expandable Interbody System, Interbody Cage Implanted:Qty : 2 on 03/15/2023 by Wyatt Ly MD at [facility] N/A: Spine Lumbar Medtronic 03/08/2030 [id number] / / [id number] 6.5 X 45 Screw Implanted:Qty : 2 on 03/15/2023 by Wyatt Ly MD at [facility] N/A: Spine Lumbar Medtronic [id number] / / Description:No Exp. Date, us ed out of set 6.5 X 40 Screw Implanted:Qty : 2 on 03/15/2023 by Wyatt Ly MD at [facility] N/A: Spine Lumbar Medtronic [id number] / / Description:No Expiration da te, used out of set 7.5 X 40 Screw Implanted:Qty : 2 on 03/15/2023 by Wyatt Ly MD at [facility] N/A: Spine Lumbar Medtronic [id number] / / Description:No Expiration Da te, used out of set Screw Bone Ti Set Solera 4.75m - [id number] Implanted:Qty : 6 on 03/15/2023 by Wyatt Ly MD at [facility] N/A: Spine Lumbar [employer] [id number] / / Description:No Expiration Da te, used out of set [place] 4.75mm Pbent 55mm - [id number] Implanted:Qty : 2 on 03/15/2023 by Wyatt Ly MD at [facility] N/A: Spine Lumbar [employer]TR[employer] : NEUROLOGIC PAIN [id number] / / 10cc Mastergraft Biologic Matrix Ext Block Implanted:Qty : 1 on 03/15/2023 by Wyatt Ly MD at [facility] N/A: Spine Lumbar Medtronic Jaret Hernandez [id number] 11/18/2025 [id number] / [id number] / [id number] Dbx 2.5cc [id number] - [id number] - [id number] Implanted:Qty : 1 on 03/15/2023 by Wyatt Ly MD at [facility] N/A: Spine Lumbar MUSCULOSKELETAL TRANSPLANT FND [id number] 08/04/2024 [id number] / [id number] / LOT NA Dbx 2.5cc [id number] - [id number] - [id number] Implanted:Qty : 1 on 03/15/2023 by Wyatt Ly MD at [facility] N/A: Spine Lumbar MUSCULOSKELETAL TRANSPLANT FND [id number] 10/04/2024 [id number] / [id number] / LOT NA Graft Bone Infuse Kit Xsmall - [id number] - [id number] Implanted:Qty : 1 on 03/15/2023 by Wyatt Ly MD at [facility] N/A: Spine Lumbar [employer] : NEUROLOGIC PAIN [id number] 07/20/2024 [id number] / [id number] / [id number] documented as of this encounter Visit Diagnoses Diagnosis Spinal stenosis of lumbar region without neurogenic claudication- Primary Spinal stenosis, lumbar region, without neurogenic claudication Syncope, unspecified syncope type 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) Other emphysema Hypertensive heart and kidney disease without heart failure and with stage 3a chronic kidney disease ([facility]) Migraine without status migrainosus, not intractable, unspecified migraine type Major depressive disorder, recurrent episode, in partial remission ([facility]) Major depressive disorder, recurrent episode, in partial or unspecified remission History of MS (myocardial infarction) Old myocardial infarction COPD, group B, by GOLD 2017 classification ([facility]) Hypomagnesemia Disorders of magnesium metabolism Hypertensive heart and kidney disease without heart failure and with stage 3a chronic kidney disease (HCC)- Primary Migraine without status migrainosus, not intractable, unspecified migraine type COPD, group B, by GOLD 2017 classification ([facility]) History of MS (myocardial infarction) Old myocardial infarction Major depressive disorder, recurrent episode, in partial remission (HCC) Major depressive disorder, recurrent episode, in partial or unspecified remission Spinal stenosis of lumbar region without neurogenic claudication Spinal stenosis, lumbar region, without neurogenic claudication Advanced care planning/counseling discussion Other specified counseling 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) Other emphysema 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)- Primary COPD, moderate (HCC) Chronic airway obstruction, not elsewhere classified Vitamin D deficiency Unspecified vitamin D deficiency Encounter for screening mammogram for breast cancer Hypertensive heart and kidney disease with chronic diastolic congestive heart failure and stage 3a chronic kidney disease ([facility]) Adjustment disorder with anxious mood Adjustment disorder with anxiety Moderate episode of recurrent major depressive disorder (HCC)- Primary Hypertensive heart and kidney disease without heart failure and with stage 3a chronic kidney disease ([facility]) Screening for thyroid disorder Black stool Nonspecific abnormal finding in stool contents Bluish skin discoloration- Primary Cyanosis Hypertensive heart and kidney disease with chronic diastolic congestive heart failure and stage 3a chronic kidney disease (HCC) 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) COPD (chronic obstructive pulmonary disease) with chronic bronchitis (HCC) Obstructive chronic bronchitis without exacerbation Hypertensive heart and kidney disease with chronic diastolic congestive heart failure and stage 3a chronic kidney disease (HCC)- Primary Chest pain, unspecified type 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) Dysphagia, unspecified type Chronic heart failure with preserved ejection fraction ([facility])- Primary COPD (chronic obstructive pulmonary disease) with chronic bronchitis (HCC) Obstructive chronic bronchitis without exacerbation Spinal stenosis of lumbar region, unspecified whether neurogenic claudication present Migraine without status migrainosus, not intractable, unspecified migraine type Age-related osteoporosis without current pathological fracture Senile osteoporosis Flank pain Abdominal pain, unspecified site Insomnia, unspecified type Orthostasis- Primary Orthostatic hypotension Atypical chest pain Other chest pain Dyslipidemia, goal LDL below 70 Other and unspecified hyperlipidemia Nonobstructive atherosclerosis of coronary artery JANE (dyspnea on exertion) Other dyspnea and respiratory abnormality documented in this encounter Advance Directives * [...] Directives occurred with: Not Discussed Care Teams Canoe Inspector Final Relationship Specialty Start Date End Date Hannah Ospina MD [address] [place] [address] PCP - General Family Medicine 04/11/24 documented as of this encounter
--- OUTSIDE RECORDS SUMMARY | 2024-12-27 20:17 | External Medical Summary | Summary of Care ---
Author Name Unknown Organization [facility] Address [address] [place] [address] Phone [phone] Care Team Providers Care Hydraulic Plumber Helper Name Role Phone Hannah Ospina MD Primary Care Provider [phone] Reason for Referral * Medication Prior Authorization - Closed Specialty Diagnoses / Procedures Referred By Contanoop t Referred To Contact Diagnoses Generalized osteoarthrosis, involving multiple sites Hannah Ospina MD [address] [place] [address] Phone: tel: fax: Referral ID Status Reason Start Date Expiration Date Visits Re quested Visits Authorized [id number] Closed 999 999 Reason for Visit * Reason Onset Date Comments Medication Refill 11/08/2024 Encounter Details Date Type Department Care Team (Late st Contact Info) Description 11/08/2024 Refill Family Practice [facility] [place] [address] [place] [address] Hannah Ospina MD [address] [place] [address] Generalized osteoarthrosis, involving multiple sites Allergies Active Allergy Reactions Criticality Noted Date Comments Varenicline 12/11/2014 nausea Corticosteroids Other (Please comment) Medium 12/27/2013 Hyper, Mental Status Changes on oral steroids Dm-Apap-Cpm Anaphylaxis,Other (Please comment) High 12/27/2013 Contact dermatitis Ibuprofen Other (Please comment) Low 12/27/2013 Affects acid reflux Iodinated Contrast Media Hives 10/08/2007 Penicillins 10/09/2007 Rash documented as of this encounter (statuses as of 11/08/2024) Medications ASPIRIN 81 MG PO TABSIndications:Ca n [...] morning. 90 Tablet 1 05/01/20 24 Active Sertraline HCl 100 MG Oral Tablet (Zoloft) Take 2 Tablets by mouth at bedtime. 180 Tablet 1 05/20/20 24 Active tiZANidine HCl 4 MG Oral Tablet (Zanaflex)Indicati ons:Cervical spinal stenosis TAKE 1 TABLET BY MOUTH EVERY 8 HOURS NEEDED FOR MUSCLE SPASMS 30 Tablet 5 05/20/20 24 Active Metoprolol Succinate ER 25 MG Oral Tablet Extended Release 24 Hour (toPROL XL)Indications:Cor onary artery disease involving [place] coronary artery of [place] heart with angina pectoris (HCC) TAKE 1/2 TABLET BY MOUTH DAILY 45 Tablet 3 05/23/20 24 Active Vitamin D3 50 MCG (1999 [place]) Oral CapsuleIndications :Vitamin D deficiency Take 1 Capsule by mouth in the morning. 30 Capsule 5 05/24/20 24 Active Nitroglycerin 0.4 MG Sublingual Tablet Sublingual (Nitrostat)Indicat ions:Chest pain, unspecified type Take 1 tab sublingual as needed for chest pain 25 Tablet 1 06/18/20 24 Active Gabapentin 300 MG Oral Capsule [...] BEDTIME 180 Tablet 2 10/03/19 25 Active HYDROcodone-Acetam inophen 5-325 MG Oral TabletIndications: Generalized osteoarthrosis, involving multiple sites Take 1 Tablet by mouth every 6 hours as needed for Pain, Moderate or Pain, Severe. Max 2 per day 60 Tablet 11/09/19 25 Active HYDROcodone-Acetam inophen 5-325 MG Oral TabletIndications: Generalized osteoarthrosis, involving multiple sites Take 1 Tablet by mouth every 6 hours as needed for Pain, Moderate or Pain, Severe. Max 2 per day 60 Tablet 10/07/19 25 025 Discontin ued(Refil l) Hospital, Clinic, or Other Facility Administered Medication Ordered Dose Route Frequency Start Date End Date Status botulinum toxin type a (Botox) inj 200 UnitsIndications:Intractabl e chronic migraine without aura and without status migrainosus 200 Units IM [id number] 09/25/2024 08/27/2025 Active documented as of this encounter (statuses as of 11/08/2024) Active Problems Problem Noted Date Diagnosed Date [...] KATLYN-FRIDA Combination Inhaler Remote Patient Monitoring Vendor: [facility] Device(s): Connected Scale Self-Management plan High [...] directed to [facility] at [phone] M-F 8am-5pm Adjustment disorder with anxious mood [...] as of this encounter (statuses as of 11/08/2024) Resolved Problems Problem Noted Date Diagnosed Date Resolved Date Coronary artery disease invo lving [place] coronary artery of [place] heart with angina pectoris 11/26/2023 09/10/2024 Assessment [...] Stress test scheduled for 12/22/23 History of OH (myocardial infarction) 04/25/2023 09/10/2024 Syncope 04/25/2023 01/22/2024 [...] in the Comments) Remote Patient Monitoring Vendor: [employer] Device(s): Connected Scale Self - Management Plan Other/Additional Comments: restart lasix daily Exacerbation Plan Anticipated IV Lasix dose: 40 mg BMP Chest X-Ray Additional Comments: Euvolemic today. Nephrology 05/17/24--new pt-[id number]--csxzy decline in renal function with lasix and [...] in the Comments) Remote Patient Monitoring Vendor: [employer] Device(s): Connected Scale Self - Management Plan [...] Pain management 04/05/2016 01/22/2024 Overview (04/05/2016): Started irais Bowers 03/01/16 Vitamin D deficiency 11/02/2015 019 Rib [...] fx right #2,3,4,5 (CT done at [facility]) MEDICATION USE AGREEMENT 12/11/201408/2017 Overview (04/05/2016): Started hemant Bowers pain management 03/01/16 Signed 03/20/14, renewed 12/11/14 Cigarette smoker 12/11/2014 02/24/2022 Carotid stenosis, symptomatic w/o infarct 08/18/2014 03/17/2016 Overview (12/15/2015): Carotid doppler 12/11/15: no stenosis bilat Carotid doppler 8/17/15: 50% stenosis both external arteries, and BRENT, no stenosis on LICA Chest pain 12/28/2013 03/12/2015 Asthma 08/07/2014 Overview (12/01/2015): ICD-10 update of inactive term Neuralgia, neuritis, and rad iculitis, unspecified 03/12/2015 Arthritis 12/11/2014 Overview (12/11/2014): Right hip Back problem 05/21/2018 Overview (03/17/2016): Having left sciatic sx's - followed by [facility] Pain Management documented as of this encounter (statuses as of 11/08/2024) Immunizations Name Administration Dates Next Due COVID-19 mRNA, LNP-s, No Pre serve, 2-Dose Series (Samba TV) 12/24/2021,05/21/2021,11/04/2020,10/14 COVID-19, MRNA-LNP, PF, 30 M CG/0.3 mL, 12 YRS AND ABOVE, IM (Intradiem-ComirnatHarperlabz) 06/07/2023 Covid-19, Mrna, Lnp-s, Pf, B ivalent, 30 Mcg, IM, 12 yrs and above (Samba TV) 05/09/2022 PPD 10/25/2021 Pneumococcal Conjugate Vacc, 13 [...] older, IM (Adacel) 12/01/2011, Varicella Zoster Vaccine (Adult) 03/25/2015 Zoster Vaccine [...] No 05/01/2024 Does the household have a [facility] source of income? (Household - for ages [...] encounter Miscellaneous Notes * Telephone Encounter - Hannah Ospina MD - 11/08/2024 4:14 PM EDTSigned Prescriptions: Disp Refills HYDROcodone-Acetaminophen 5-325 MG Oral Ta*60 Tab*0 Sig: Take 1 Tablet by mouth every 6 hours as needed for Pain, Moderate or Pain, Severe. Max 2 per day Authorizing Provider: HANNAH OSPINA * Telephone Encounter - Maliha Hunt LPN - 11/08/2024 2:48 PM EDTPending Prescriptions: Disp Refills HYDROcodone-Acetaminophen 5-325 MG Oral Ta*60 Tab*0 Sig: Take 1 Tablet by mouth every 6 hours as needed for Pain, Moderate or Pain, Severe. Max 2 per day * Telephone Encounter - Maliha Hunt LPN - 11/08/2024 2:47 PM EDT Last Office Visit: 09/10/2024 (in office), Visit date not found (telemedicine) Next Office Visit: 12/10/2024 Last date the medication was ordered: 10/07/2024 * Telephone Encounter - Reta Govea LPN - 11/08/2024 2:39 PM EDT Pending Prescriptions: Disp Refills HYDROcodone-Acetaminophen 5-325 MG Oral Ta*60 Tab*0 Sig: Take 1 Tablet by mouth every 6 hours as needed for Pain, Moderate or Pain, Severe. Max 2 per day * Telephone Encounter - Marilou Lugo OSA - 11/08/2024 2:16 PM EDT Patients power line is down so having hard time getting through to anyone. Told her we'd put in a refill and if appointment needed to get a refill we'll get a hold of her * Telephone Encounter - Marilou Lugo OSA - 11/08/2024 2:14 PM EDT Did you pend patient's preferred pharmacy and medication before forwarding?yes Pharmacy: No prescriptions requested or ordered in this encounter Last Visit: 09/10/2024 (in office), Visit date not found (telemedicine) Next Visit: 12/10/2024 If no future appointments scheduled, and last appointment is greater than a year ago, please schedule patient for a follow-up appointment Last date the medication was ordered: 10/07/2024 Is this request for a controlled substance?No Urine Drug Screen:No results found. However, due to the size of the patient record, not all encounters were searched. Please check Results Review for a complete set of results. Patient Phone Numbers Labs: Lab Results Component Value Date/Time CREAT 1.2 (H) 09/10/2024 01:46 PM CREAT 1.3 (H) 08/31/2020 09:43 AM POTASSIUM 4.8 09/10/2024 01:46 PM POTASSIUM 5.0 08/31/2020 09:43 AM TSH 2.28 03/01/2024 10:58 AM TSH 1.50 01/06/2020 08:53 AM LDL 83 03/01/2024 10:58 AM LDL 81 06/02/2020 09:42 AM LDL NOT APPLICABLE 06/02/2020 09:42 AM ALT 13 03/01/2024 10:58 AM ALT 18 06/02/2020 09:42 AM HGBA1C 5.9 (H) 03/10/2023 12:00 PM documented in this encounter Plan of Treatment Upcoming Encounters Date Type Department Care Team (Late st Contact Info) Description 12/10/2024 1:00 PM EDT Office Visit Family Practice [facility] [address] [place] [address] Hannah Ospina MD [address] [place] [address] 12/20/2024 10:00 AM EDT Office Visit Cardiology, [facility] [address] [place] [phone] Edward Oliver PA-C [address] [place] [address] 06/04/2025 9:40 AM EDT Office Visit Nephrology, [facility] [address] [place] [address] Ritchie Childress MD [address] [place] [address] 07/07/2025 11:30 AM EST Imaging Radiology [facility] [address] [place] [phone] 07/08/2025 11:00 AM EST Office Visit Rheumatology [facility] [address] [place] [phone] Yeyo Barrios MD [address] [facility] [place] [address] Scheduled Procedures Name Priority Associated Diagnoses Date/Ti [...] D LEVEL ONCE IN A LIFETIME-USE SMARTSET# 89442 Completed 05/17/2024, 03/07/2024, 07/05/2023, Additional history exists [...] this encounter Medical Devices Implanted Type Area Thread Milling Machine Set Up Operator Device Identifier Shelf Expiration Date Model / Serial / Lot Dbx 5cc [id number] - [id number] - [id number] Implanted:Qty : 1 on 01/20/2021 by Wyatt Ly MD at OR [facility] Tissue - Human N/A: Spine Cervical MUSCULOSKELETAL TRANSPLANT FND [id number] 08/22/2021 [id number] / [id number] / LOT NA Vitoss Bimodal Foam Pack 10cc - [id number] - [id number] Implanted:Qty : 1 on 01/20/2021 by Wyatt Ly MD at OR [facility] N/A: Spine Cervical PAULETTE : SPINE 12/16/[id number] / [id number] / [id number] 4.5 X 20mm Cortical Fixation Screw Implanted:Qty : 1 on 01/20/2021 by Wyatt Ly MD at OR [facility] N/A: Spine Cervical [employer] 1020-45-220 / / 4.5 X 22mm Cortical Fixation Screw Implanted:Qty : 1 on 01/20/2021 by Wyatt Ly MD at OR [facility] N/A: Spine Cervical [employer] 1020-45-222 / / 3.5 X 12mm Screws Implanted:Qty : 8 on 01/20/2021 by Wyatt Ly MD at OR [facility] N/A: Spine Cervical [employer] 1020-35-112 / / Set Screws Implanted:Qty : 10 on 01/20/2021 by Wyatt Ly MD at OR [facility] N/A: Spine Cervical [employer] 1020-00-000 / / 60mm Rods Implanted:Qty : 2 on 01/20/2021 by Wyatt Ly MD at OR [facility] N/A: Spine Cervical [employer]PU[employer] 1020-64-060 / / 1cm X 5cm Magnifuse Posterior Cervical Bone Graft (Formerly Osteotech) Implanted:Qty : 1 on 03/15/2023 by Wyatt Ly MD at OR [facility] N/A: Spine Lumbar Medtronic Sofamor Danek [id number] 01/05/2025 [id number] / [id number] / LOT NA Catalyft Pl Expandable Interbody System, Interbody Cage Implanted:Qty : 2 on 03/15/2023 by Wyatt Ly MD at OR [facility] N/A: Spine Lumbar Medtronic 03/08/2030 [id number] / / [id number] 6.5 X 45 Screw Implanted:Qty : 2 on 03/15/2023 by Wyatt Ly MD at OR [facility] N/A: Spine Lumbar Medtronic [id number] / / Description:No Exp. Date, us ed out of set 6.5 X 40 Screw Implanted:Qty : 2 on 03/15/2023 by Wyatt Ly MD at OR [facility] N/A: Spine Lumbar Medtronic [id number] / / Description:No Expiration da te, used out of set 7.5 X 40 Screw Implanted:Qty : 2 on 03/15/2023 by Wyatt Ly MD at OR [facility] N/A: Spine Lumbar Medtronic [id number] / / Description:No Expiration Da te, used out of set Screw Bone Ti Set Solera 4.75m - [id number] Implanted:Qty : 6 on 03/15/2023 by Wyatt Ly MD at OR [facility] N/A: Spine Lumbar [employer] [id number] / / Description:No Expiration Da te, used out of set Anthony [place] 4.75mm Pbent 55mm - [id number] Implanted:Qty : 2 on 03/15/2023 by Wyatt Ly MD at OR [facility] N/A: Spine Lumbar MEDTRONIC : NEUROLOGIC PAIN [id number] / / 10cc Mastergraft Biologic Matrix Ext Block Implanted:Qty : 1 on 03/15/2023 by Wyatt Ly MD at OR [facility] N/A: Spine Lumbar Medtronic Sofamor Danek [id number] 11/18/2025 [id number] / [id number] / [id number] Dbx 2.5cc [id number] - [id number] - [id number] Implanted:Qty : 1 on 03/15/2023 by Wyatt Ly MD at OR [facility] N/A: Spine Lumbar MUSCULOSKELETAL TRANSPLANT FND [id number] 08/04/2024 282336 / [id number] / LOT NA Dbx 2.5cc 321704 - [id number] - [id number] Implanted:Qty : 1 on 03/15/2023 by Wyatt Ly MD at OR [facility] N/A: Spine Lumbar MUSCULOSKELETAL TRANSPLANT FND [id number] 10/04/2024 013137 / [id number] / LOT NA Graft Bone Infuse Kit Xsmall - [id number] - [id number] Implanted:Qty : 1 on 03/15/2023 by Wyatt Ly MD at OR [facility] N/A: Spine Lumbar MEDTRONIC : NEUROLOGIC PAIN [id number] 07/20/2024 [id number] / [id number] / [id number] documented as of this encounter Visit Diagnoses [...] in partial or unspecified remission History of [place] (myocardial infarction) Old myocardial infarction COPD, group B, by GOLD 2017 classification ([facility]) Hypomagnesemia Disorders of magnesium metabolism Hypertensive heart and kidney disease without heart failure and with stage 3a chronic kidney disease (HCC)- Primary Migraine without status migrainosus, not intractable, unspecified migraine type COPD, group B, by GOLD 2017 classification ([facility]) History of [place] (myocardial infarction) Old myocardial infarction Major depressive [...] and with stage 3a chronic kidney disease ([facility]) Screening for thyroid disorder Black stool Nonspecific abnormal finding in stool contents Bluish skin discoloration- Primary Cyanosis Hypertensive heart and kidney disease with chronic diastolic congestive heart failure and stage 3a chronic kidney disease (HCC) Coronary artery disease involving [place] coronary artery of [place] heart with angina pectoris (HCC) COPD (chronic obstructive pulmonary disease) with chronic bronchitis (HCC) Obstructive chronic bronchitis without exacerbation Hypertensive heart and kidney disease with chronic diastolic congestive heart failure and stage 3a chronic kidney disease (HCC)- Primary Chest pain, unspecified type Coronary artery disease involving [place] coronary artery of [place] heart with angina pectoris (HCC) Dysphagia, unspecified [...] Directives occurred with: Not Discussed Care Teams Hydraulic Plumber Helper Relationship Specialty Start Date End Date Hannah Ospina MD [address] [place] [address] PCP - General Family Medicine 04/11/24 documented as of this encounter
--- OUTSIDE RECORDS SUMMARY | 2024-12-27 20:17 | External Medical Summary | Summary of Care ---
Author Name Unknown Organization [facility] Address [address] [place] [address] Phone [phone] Care Team Providers Care Pump Runner Name Role Phone Dhruv Ospina MD Primary Care Provider [phone] Reason for Visit * Reason Comments eRx-Medication Refill Encounter Details Date Type Department Care Team (Late st Contact Info) Description 10/01/[address] [facility] [address] [facility] [place] [address] Dhruv Ospina MD [address] [facility] [place] [address] Allergies Active Allergy Reactions Criticality Noted Date Comments Varenicline 12/11/2014 nausea Corticosteroids Other (Please comment) Medium 12/27/2013 Hyper, Mental Status Changes on oral steroids Dm-Apap-Cpm Anaphylaxis,Other (Please comment) High 12/27/2013 Contact dermatitis Ibuprofen Other (Please comment) Low 12/27/2013 Affects acid reflux Iodinated Contrast Media Hives 10/08/2007 Penicillins 10/09/2007 Rash documented as of this encounter (statuses as of 10/03/2024) Medications ASPIRIN 81 MG PO TABSIndications:C an [...] Hour (toPROL XL)Indications: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 18 g 1 08/15/20 24 Active HYDROcodone-Aceta minophen 5-325 MG Oral TabletIndications :Generalized osteoarthrosis, involving multiple sites Take 1 Tablet by mouth every 6 hours as needed for Pain, Moderate or Pain, Severe. Max 2 per day 60 Tablet 08/29/19 25 Active Stiolto Respimat 2.5-2.5 MCG/ACT Inhalation Aerosol Solution (Tiotropium-Oloda terol)Indications :COPD (chronic obstructive pulmonary disease) with chronic bronchitis (HCC) Inhale 2 Puffs by mouth in the morning. 4 g 1 09/10/19 25 Active Amitriptyline HCl 10 MG Oral Tablet (Elavil) TAKE 2 TABLETS BY MOUTH AT BEDTIME 180 Tablet 2 10/03/19 25 Active Amitriptyline HCl 10 MG Oral Tablet (Elavil) TAKE 2 TABLETS BY MOUTH AT BEDTIME 180 Tablet 2 03/06/20 24 2024 Discontinued Hospital, Clinic, or Other Facility Administered Medication Ordered Dose Route Frequency Start Date End Date Status botulinum toxin type a (Botox) inj 200 UnitsIndications:Intractabl e chronic migraine without aura and without status migrainosus 200 Units IM [id number] 09/25/2024 08/27/2025 Active documented as of this encounter (statuses as of 10/03/2024) Active Problems Problem Noted Date Diagnosed Date [...] Combination Inhaler Remote Patient Monitoring Vendor: [facility] Device(s): Connected Scale Self-Management plan High frequency [...] at night. Member can be directed to [facility] at [phone] M-F 8am-5pm Adjustment disorder with anxious mood [...] as of this encounter (statuses as of 10/03/2024) Resolved Problems Problem Noted Date Diagnosed Date Resolved Date Coronary artery disease invo lving washoe coronary artery of washoe heart with angina pectoris 11/26/2023 09/10/2024 Assessment [...] in the Comments) Remote Patient Monitoring Vendor: [employer] Device(s): Connected Scale Self - Management Plan Other/Additional Comments: restart lasix daily Exacerbation Plan Anticipated IV Lasix dose: 40 mg BMP Chest X-Ray Additional Comments: Euvolemic today. Nephrology 05/17/24--new pt-[id number]--akjgy decline in renal function with lasix and [...] in the Comments) Remote Patient Monitoring Vendor: [employer] Device(s): Connected Scale Self - Management Plan [...] fx right #2,3,4,5 (CT done at [facility]) MEDICATION USE AGREEMENT 12/11/201408/2017 Overview (04/05/2016): Started [...] as of this encounter (statuses as of 10/03/2024) Immunizations Name Administration Dates Next Due COVID-19 mRNA, LNP-s, No Pre serve, 2-Dose Series ([employer]) 12/24/2021,05/21/2021,11/04/2020,10/14 COVID-19, MRNA-LNP, PF, 30 M CG/0.3 mL, 12 YRS AND ABOVE, [facility] 06/07/2023 Covid-19, Mrna, Lnp-s, Pf, B ivalent, [...] Telephone Encounter - Dhruv Ospina MD - 10/03/2024 9:11 AM ESTSigned Prescriptions: Disp Refills Amitriptyline HCl 10 MG Oral Tablet (Elavi*180 Ta*2 Sig: TAKE 2 TABLETS BY MOUTH AT BEDTIME Authorizing Provider: DHRUV OSPINA * Telephone Encounter - Enoch Sinha [facility] - 10/02/2024 11:41 AM EST Pending Prescriptions: Disp Refills Amitriptyline HCl 10 MG Oral Tablet [Pharm*180 Ta*2 Sig: TAKE 2 TABLETS BY MOUTH AT BEDTIME * Telephone Encounter - Enoch Sinha, [facility] - 10/02/2024 11:41 AM EST Medication has not yet been approved by current PCP. Please review and approve if continued refillsare warranted. Pending Prescriptions: Disp Refills Amitriptyline HCl 10 MG Oral Tablet (Elav*180 Ta*2 Sig: TAKE 2 TABLETS BY MOUTH AT BEDTIME Last Visit: 09/10/2024 (in office), Visit date not found (telemedicine) Next Visit: 12/10/2024 If no future appointments scheduled, and last appointment is greater than a year ago, please schedule patient for a follow-up appointment Last date the medication was ordered: 03/06/24 Pharmacy: [id number] [address] [place] [address] Is this request for a controlled substance? No Urine Drug Screen:No results found. However, due [...] Upcoming Encounters Date Type Department Care Team (Latest Contact Info) Description 10/09/2024 11:45 AM EST Hospital Encounter ENDO [facility], Endoscopy Room [facility] [address] [place] [phone] Riki Sanchez MD [address] [place] [address] 10/09/2024 11:45 AM EST - 10/09/2024 12:15 PM EST Surgery ENDO [facility], Endoscopy Room [facility] [address] [place] [phone] Riki Sanchez MD [address] [place] [address] COLONOSCOPY FLEXIBLE PROXIMAL DIAGNOSTIC 12/10/2024 1:00 PM EDT Office Visit Family Practice [facility] [place] [address] [place] [address] Dhruv Ospina MD [address] [place] [address] 12/20/2024 10:00 AM EDT Office Visit Cardiology, [facility] [address] [place] [address] Edward Oliver PA-C [address] [place] [address] 06/04/2025 9:40 AM EDT Office Visit Nephrology, [facility] [address] [facility] [place] [address] Ritchie Childress MD [address] [facility] [place] [address] 07/07/2025 11:30 AM EST Imaging Radiology [facility] [address] [place] [phone] 07/08/2025 11:00 AM EST Office Visit Rheumatology [facility] [address] [place] [phone] Yeyo Barrios MD [facility] [place] [address] Scheduled Procedures Name Priority Associated Diagnoses Date/Ti me COLONOSCOPY FLEXIBLE PROXIMAL DIAGNOSTIC Recall History of colon polyps 10/09/2024 11:45 AM EST Health Maintenance Due Date Last Done Comments [...] D LEVEL ONCE IN A LIFETIME-USE SMARTSET# 75131 Completed 05/17/2024, 03/07/2024, 07/05/2023, Additional history exists [...] this encounter Medical Devices Implanted Type Area Diamond Cleaner Device Identifier Shelf Expiration Date Model / Serial / Lot Dbx 5cc [id number] - [id number] - [id number] Implanted:Qty : 1 on 01/20/2021 by Wyatt Ly MD at [facility] Tissue - Human N/A: Spine Cervical MUSCULOSKELETAL TRANSPLANT FND [id number] 08/22/2021 [id number] / [id number] / LOT NA Vitoss Bimodal Foam Pack [facility] - [id number] - [id number] Implanted:Qty : 1 on 01/20/2021 by Wyatt Ly MD at OR [facility] N/A: Spine Cervical PAULETTE : SPINE 12/16/2021 [id number] / [id number] / [id number] 4.5 X 20mm Cortical Fixation Screw Implanted:Qty : 1 on 01/20/2021 by Wyatt Ly MD at OR [facility] N/A: Spine Cervical [employer] 1020-45-220 / / 4.5 X 22mm Cortical Fixation Screw Implanted:Qty : 1 on 01/20/2021 by Wyatt Ly MD at OR [facility] N/A: Spine Cervical DEPU[employer] SP[employer] INC 1020-45-222 / / 3.5 X 12mm Screws Implanted:Qty : 8 on 01/20/2021 by Wyatt Ly MD at OR [facility] N/A: Spine Cervical DEPUY SPINE INC 1020-35-112 / / Set Screws Implanted:Qty : 10 on 01/20/2021 by Wyatt Ly MD at OR [facility] N/A: Spine Cervical DEPUY SPINE INC 1020-00-000 / / 60mm Rods Implanted:Qty : 2 on 01/20/2021 by Wyatt Ly MD at OR [facility] N/A: Spine Cervical DEPUY SPINE INC 1020-64-060 / / 1cm X 5cm Magnifuse Posterior Cervical Bone Graft (Formerly Osteotech) Implanted:Qty : 1 on 03/15/2023 by Wyatt Ly MD at OR [facility] N/A: Spine Lumbar Medtronic Sofamor Danek [id number] 01/05/2025 [id number] / [id number] / LOT NA Catalyft Pl Expandable Interbody System, Interbody Cage Implanted:Qty : 2 on 03/15/2023 by Wyatt Ly MD at OR [facility] N/A: Spine Lumbar Medtronic 03/08/2030 [id number] / / [id number] 6.5 X 45 Screw Implanted:Qty : 2 on 03/15/2023 by Wyatt Ly MD at OR [facility] N/A: Spine Lumbar Medtronic [id number] / / Description:No Exp. Date, us ed out of set 6.5 X 40 Screw Implanted:Qty : 2 on 03/15/2023 by Wyatt Ly MD at OR [facility] N/A: Spine Lumbar Medtronic [id number] / / Description:No Expiration da te, used out of set 7.5 X 40 Screw Implanted:Qty : 2 on 03/15/2023 by Wyatt Ly MD at OR [facility] N/A: Spine Lumbar Medtronic [id number] / / Description:No Expiration Da te, used out of set Screw Bone Ti Set Solera 4.75m - [id number] Implanted:Qty : 6 on 03/15/2023 by Wyatt Ly MD at OR [facility] N/A: Spine Lumbar MEDTRONIC Pocits INC [id number] / / Description:No Expiration Da te, used out of set Anthony Bena 4.75mm Pbent 55mm - [id number] Implanted:Qty : 2 on 03/15/2023 by Wyatt Ly MD at OR [facility] N/A: Spine Lumbar MEDTRONIC : NEUROLOGIC PAIN [id number] / / 10cc Mastergraft Biologic Matrix Ext Block Implanted:Qty : 1 on 03/15/2023 by Wyatt Ly MD at OR [facility] N/A: Spine Lumbar Medtronic Sofamor Danek [id number] 11/18/2025 [id number] / [id number] / [id number] Dbx 2.5cc 085333 - [id number] - [id number] Implanted:Qty : 1 on 03/15/2023 by Wyatt Ly MD at OR [facility] N/A: Spine Lumbar MUSCULOSKELETAL TRANSPLANT FND [id number] 08/04/2024 [id number] / [id number] / LOT NA Dbx 2.5cc 123188 - [id number] - [id number] Implanted:Qty : 1 on 03/15/2023 by Wyatt Ly MD at OR [facility] N/A: Spine Lumbar MUSCULOSKELETAL TRANSPLANT FND [id number] 10/04/2024 [id number] / [id number] / LOT NA Graft Bone Infuse Kit Xsmall - [id number] - [id number] Implanted:Qty : 1 on 03/15/2023 by Wyatt Ly MD at OR [facility] N/A: Spine Lumbar MEDTRONIC : NEUROLOGIC PAIN [id number] 07/20/2024 [id number] / [id number] / [id number] documented as of this encounter Advance Directives [...] Directives occurred with: Not Discussed Care Teams Pump Runner Relationship Specialty Start Date End Date Dhruv Ospina MD [address] [facility] [place], [place] [address] PCP - General Family Medicine 04/11/24 documented as of this encounter
--- OUTSIDE RECORDS SUMMARY | 2024-12-27 20:17 | External Medical Summary | Summary of Care ---
Author Name Unknown Organization [facility] Address [address] [place] [address] Phone [phone] Care Team Providers Care Sustainability Analyst Name Role Phone Hannah Ospina MD Primary Care Provider [phone] Reason for Visit * Reason Onset Date Comments Appointment Canceled 10/07/2024 Encounter Details Date Type Department Care Team (Late st Contact Info) Description 10/07/2024 Telephone Pre Surgery Center, [facility] [address] [place] [address] Riki Sanchez MD [address] [place] [address] Appointment Canceled Allergies Active Allergy Reactions Criticality Noted Date Comments Varenicline 12/11/2014 nausea Corticosteroids Other (Please comment) Medium 12/27/2013 Hyper, Mental Status Changes on oral steroids Dm-Apap-Cpm Anaphylaxis,Other (Please comment) High 12/27/2013 Contact dermatitis Ibuprofen Other (Please comment) Low 12/27/2013 Affects acid reflux Iodinated Contrast Media Hives 10/08/2007 Penicillins 10/09/2007 Rash documented as of this encounter (statuses as of 10/07/2024) Medications ASPIRIN 81 MG PO TABSIndications:Ca n [...] the morning. 90 Tablet 1 4 Active Sertraline HCl 100 MG Oral Tablet (Zoloft) Take 2 Tablets by mouth at bedtime. 180 Tablet 1 4 Active tiZANidine HCl 4 MG Oral Tablet (Zanaflex)Indicati ons:Cervical spinal stenosis TAKE 1 TABLET BY MOUTH EVERY 8 HOURS NEEDED FOR MUSCLE SPASMS 30 Tablet 5 4 Active Metoprolol Succinate ER 25 MG Oral Tablet Extended Release 24 Hour (toPROL XL)Indications:Cor onary artery disease involving [place] coronary artery of [place] heart with angina pectoris (HCC) TAKE 1/2 TABLET BY MOUTH DAILY 45 Tablet 3 4 Active Vitamin D3 50 MCG (1999 UT) Oral CapsuleIndications :Vitamin D deficiency Take 1 Capsule by mouth in the morning. 30 Capsule 5 4 Active Nitroglycerin 0.4 MG Sublingual Tablet Sublingual (Nitrostat)Indicat ions:Chest pain, unspecified type Take 1 tab sublingual as needed for chest pain 25 Tablet 1 4 Active Gabapentin 300 MG Oral Capsule [...] OF BREATH. 18 g 1 4 Active HYDROcodone-Acetam inophen 5-325 MG Oral TabletIndications: Generalized osteoarthrosis, involving multiple sites Take 1 Tablet by mouth every 6 hours as needed for Pain, Moderate or Pain, Severe. Max 2 per day 60 Tablet 5 Active Stiolto Respimat 2.5-2.5 MCG/ACT Inhalation Aerosol Solution (Tiotropium-Olodat sherita)Indications:C OPD (chronic obstructive pulmonary disease) with chronic bronchitis (HCC) Inhale 2 Puffs by mouth in the morning. 4 g 1 5 Active Amitriptyline HCl 10 MG Oral Tablet (Elavil) TAKE 2 TABLETS BY MOUTH AT BEDTIME 180 Tablet 2 5 Active Hospital, Clinic, or Other Facility Administered Medication Ordered Dose Route Frequency Start Date End Date Status botulinum toxin type a (Botox) inj 200 UnitsIndications:Intractabl e chronic migraine without aura and without status migrainosus 200 Units IM [id number] 09/25/2024 08/27/2025 Active documented as of this encounter (statuses as of 10/07/2024) Active Problems Problem Noted Date Diagnosed Date [...] Combination Inhaler Remote Patient Monitoring Vendor: [facility] Device(s): Connected Scale Self-Management plan High frequency [...] at night. Member can be directed to [facility] at [phone] M-F 8am-5pm Adjustment disorder with anxious mood [...] as of this encounter (statuses as of 10/07/2024) Resolved Problems Problem Noted Date Diagnosed Date Resolved Date Coronary artery disease invo lving [place] coronary artery of [place] heart with angina pectoris 11/26/2023 09/10/2024 Assessment [...] Stress test scheduled for 12/22/23 History of [place] (myocardial infarction) 04/25/2023 09/10/2024 Syncope 04/25/2023 01/22/2024 [...] in the Comments) Remote Patient Monitoring Vendor: [employer] Device(s): Connected Scale Self - Management Plan Other/Additional Comments: restart lasix daily Exacerbation Plan Anticipated IV Lasix dose: 40 mg BMP Chest X-Ray Additional Comments: Euvolemic today. Nephrology 05/17/24--new pt-[id number]--btmdt decline in renal function with lasix and [...] in the Comments) Remote Patient Monitoring Vendor: [employer] Device(s): Connected Scale Self - Management Plan [...] non-displaced fx right #2,3,4,5 (CT done at [facility]) MEDICATION USE AGREEMENT 12/11/201408/2017 Overview (04/05/2016): Started w. [facility] pain management 03/01/16 Signed [...] sciatic sx's - followed by [facility] documented as of this encounter (statuses as of 10/07/2024) Immunizations Name Administration Dates Next Due COVID-19 mRNA, LNP-s, No Pre serve, 2-Dose Series ([employer]) 12/24/2021,05/21/2021,11/04/2020,10/14 COVID-19, MRNA-LNP, PF, 30 M CG/0.3 mL, 12 YRS AND ABOVE, IM ([facility]) 06/07/2023 Covid-19, Mrna, Lnp-s, Pf, B [...] encounter Miscellaneous Notes * Telephone Encounter - Cherie Barrett OSA - 10/07/2024 8:55 AM EST Noted. * Telephone Encounter - Allison Dawn RN - 10/07/2024 7:32 AM EST Pt is ill. Will need to postpone her procedure. Also informed pt I have been trying to contact her for a week. She doesn't answer her phone, doesn't have VM, and hasn't read her message. I did explain that when she is resched., she MUST speak with PAT prior to her procedure. She stated understanding. documented in this encounter Plan of Treatment Upcoming Encounters Date Type Department Care Team (Late st Contact Info) Description 12/10/2024 1:00 PM EDT Office Visit Family Practice [facility] [address] [place] [address] Hannah Ospina MD [address] [place] [address] 12/20/2024 10:00 AM EDT Office Visit Cardiology, [facility] [address] [place] [address] Edward Oliver PA-C [address] [place] [address] 06/04/2025 9:40 AM EDT Office Visit Nephrology, [facility] [address] [place] [address] Ritchie Childress MD [address] [facility] [place] [address] 07/07/2025 11:30 AM EST Imaging Radiology [facility] [address] [place] [phone] 07/08/2025 11:00 AM EST Office Visit Rheumatology [facility] [address] [place] [phone] Yeyo Barrios MD [address] [facility] [place] [address] Scheduled Procedures Name Priority Associated Diagnoses Date/Ti [...] D LEVEL ONCE IN A LIFETIME-USE SMARTSET# 60590 Completed 05/17/2024, 03/07/2024, 07/05/2023, Additional history exists [...] this encounter Medical Devices Implanted Type Area Energy Control Officer Device Identifier Shelf Expiration Date Model / Serial / Lot Dbx 5cc 982648 - [id number] - [id number] Implanted:Qty : 1 on 01/20/2021 by Wyatt Ly MD at OR [facility] Tissue - Human N/A: Spine Cervical MUSCULOSKELETAL TRANSPLANT FND [id number] 08/22/2021 [id number] / [id number] / LOT NA Vitoss Bimodal Foam Pack 10cc - [id number] - [id number] Implanted:Qty : 1 on 01/20/2021 by Wyatt Ly MD at OR [facility] N/A: Spine Cervical PAULETTE : SPINE 12/16/2021 [id number] / [id number] / [id number] 4.5 X 20mm Cortical Fixation Screw Implanted:Qty : 1 on 01/20/2021 by Wyatt Ly MD at OR [facility] N/A: Spine Cervical DEPU[employer] INC 1020-45-220 / / 4.5 X 22mm Cortical Fixation Screw Implanted:Qty : 1 on 01/20/2021 by Wyatt Ly MD at OR [facility] N/A: Spine Cervical DEPUY SP[employer] INC 1020-45-222 / / 3.5 X 12mm Screws Implanted:Qty : 8 on 01/20/2021 by Wyatt Ly MD at OR [facility] N/A: Spine Cervical DEPUY SPINE INC 1020-35-112 / / Set Screws Implanted:Qty : 10 on 01/20/2021 by Wyatt Ly MD at OR [facility] N/A: Spine Cervical DEPUY SPINE INC 1020-00-000 / / 60mm Rods Implanted:Qty : 2 on 01/20/2021 by Wyatt Ly MD at OR [facility] N/A: Spine Cervical DEPUY SPINE INC 1020-64-060 / / 1cm X 5cm Magnifuse Posterior Cervical Bone Graft (Formerly Osteotech) Implanted:Qty : 1 on 03/15/2023 by Wyatt Ly MD at OR [facility] N/A: Spine Lumbar Medtronic Lymbixek [id number] 01/05/2025 [id number] / [id number] / LOT NA Catalyft Pl Expandable Interbody System, Interbody Cage Implanted:Qty : 2 on 03/15/2023 by Wyatt Ly MD at OR [facility] N/A: Spine Lumbar Medtronic 03/08/2030 [id number] / / [id number] 6.5 X 45 Screw Implanted:Qty : 2 on 03/15/2023 by Wyatt Ly MD at OR [facility] N/A: Spine Lumbar Medtronic [id number] / / Description:No Exp. Date, us ed out of set 6.5 X 40 Screw Implanted:Qty : 2 on 03/15/2023 by Wyatt Ly MD at OR [facility] N/A: Spine Lumbar Medtronic [id number] / / Description:No Expiration da te, used out of set 7.5 X 40 Screw Implanted:Qty : 2 on 03/15/2023 by Wyatt Ly MD at OR [facility] N/A: Spine Lumbar Medtronic [id number] / / Description:No Expiration Da te, used out of set Screw Bone Ti Set Solera 4.75m - [id number] Implanted:Qty : 6 on 03/15/2023 by Wyatt Ly MD at OR [facility] N/A: Spine Lumbar MEDTRONIC [facility] [id number] / / Description:No Expiration Da te, used out of set Anthony G[place]den 4.75mm Pbent 55mm - [id number] Implanted:Qty : 2 on 03/15/2023 by Wyatt Ly MD at OR [facility] N/A: Spine Lumbar MEDTRONIC : NEUROLOGIC PAIN [id number] / / 10cc Mastergraft Biologic Matrix Ext Block Implanted:Qty : 1 on 03/15/2023 by Wyatt Ly MD at OR [facility] N/A: Spine Lumbar Medtronic Sofamor Danek [id number] 11/18/2025 [id number] / [id number] / [id number] Dbx 2.5cc 468966 - [id number] - [id number] Implanted:Qty : 1 on 03/15/2023 by Wyatt Ly MD at OR [facility] N/A: Spine Lumbar MUSCULOSKELETAL TRANSPLANT FND [id number] 08/04/2024 048737 / [id number] / LOT NA Dbx 2.5cc 919658 - [id number] - [id number] Implanted:Qty : 1 on 03/15/2023 by Wyatt Ly MD at OR [facility] N/A: Spine Lumbar MUSCULOSKELETAL TRANSPLANT FND [id number] 10/04/2024 062540 / [id number] / LOT NA Graft Bone Infuse Kit Xsmall - [id number] - [id number] Implanted:Qty : 1 on 03/15/2023 by Wyatt Ly MD at OR [facility] N/A: Spine Lumbar MEDTRONIC : NEUROLOGIC PAIN [id number] 07/20/2024 [id number] / [id number] / [id number] documented as of this encounter Advance Directives [...] Directives occurred with: Not Discussed Care Teams Sustainability Analyst Relationship Specialty Start Date End Date Hannah Ospina MD [address] [place] [address] PCP - General Family Medicine 04/11/24 documented as of this encounter
--- OUTSIDE RECORDS SUMMARY | 2024-12-27 20:17 | External Medical Summary | Summary of Care ---
Author Name Unknown Organization [facility] Address [address] [place] [address] Phone [phone] Care Team Providers Care Parliamentary Archivist Name Role Phone Hannah Ospina MD Primary Care Provider [phone] Reason for Referral * Medication Prior Authorization - Closed Specialty Diagnoses / Procedures Referred By Calos t Referred To Contact Diagnoses Generalized osteoarthrosis, involving multiple sites Hannah Ospina MD [address] [place] [address] Phone: tel: fax: Referral ID Status Reason Start Date Expiration Date Visits Re quested Visits Authorized [id number] Closed 999 999 Reason for Visit * Reason Onset Date Comments Medication Refill 10/04/2024 Encounter Details Date Type Department Care Team (Late st Contact Info) Description 10/04/2024 Refill [facility] [place] [address] [place] [address] Hannah Ospina MD [address] [facility] [place] [address] Generalized osteoarthrosis, involving multiple sites Allergies Active Allergy Reactions Criticality Noted Date Comments Varenicline 12/11/2014 nausea Corticosteroids Other (Please comment) Medium 12/27/2013 Hyper, Mental Status Changes on oral steroids Dm-Apap-Cpm Anaphylaxis,Other (Please comment) High 12/27/2013 Contact dermatitis Ibuprofen Other (Please comment) Low 12/27/2013 Affects acid reflux Iodinated Contrast Media Hives 10/08/2007 Penicillins 10/09/2007 Rash documented as of this encounter (statuses as of 10/08/2024) Medications ASPIRIN 81 MG PO TABSIndications:Ca n [...] Hour (toPROL XL)Indications: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 Max 2 per day 60 Tablet 08/29/19 25 025 Discontin ued(Refil l) Hospital, Clinic, or Other Facility Administered Medication Ordered Dose Route Frequency Start Date End Date Status botulinum toxin type a (Botox) inj 200 UnitsIndications:Intractabl e chronic migraine without aura and without status migrainosus 200 Units IM [id number] 09/25/2024 08/27/2025 Active documented as of this encounter (statuses as of 10/08/2024) Active Problems Problem Noted Date Diagnosed Date [...] KATLYN-FRIDA Combination Inhaler Remote Patient Monitoring Vendor: [facility] Device(s): Connected Scale Self-Management plan High frequency [...] at night. Member can be directed to [facility] at [phone] M-F 8am-5pm Adjustment disorder with anxious mood [...] as of this encounter (statuses as of 10/08/2024) Resolved Problems Problem Noted Date Diagnosed Date Resolved Date Coronary artery disease invo lving chinik coronary artery of chinik heart with angina pectoris 11/26/2023 09/10/2024 Assessment [...] Stress test scheduled for 12/22/23 History of OK (myocardial infarction) 04/25/2023 09/10/2024 Syncope 04/25/2023 01/22/2024 [...] in the Comments) Remote Patient Monitoring Vendor: [employer] Device(s): Connected Scale Self - Management Plan Other/Additional Comments: restart lasix daily Exacerbation Plan Anticipated IV Lasix dose: 40 mg BMP Chest X-Ray Additional Comments: Euvolemic today. Nephrology 05/17/24--new pt-[id number]--pavga decline in renal function with lasix and [...] in the Comments) Remote Patient Monitoring Vendor: [facility] Device(s): Connected Scale Self - Management Plan [...] [facility]) MEDICATION USE AGREEMENT 12/11/201408/2017 Overview (04/05/2016): [...] Having left sciatic sx's - followed by [facility] documented as of this encounter (statuses as of 10/08/2024) Immunizations Name Administration Dates Next Due COVID-19 mRNA, LNP-s, No Pre serve, 2-Dose Series ([employer]) 12/24/2021,05/21/2021,11/04/2020,10/14 COVID-19, MRNA-LNP, PF, 30 M CG/0.3 mL, 12 YRS AND ABOVE, IM ([employer] 06/07/2023 Covid-19, Mrna, Lnp-s, Pf, B ivalent, 30 Mcg, IM, 12 yrs and above ([employer]) 05/09/2022 PPD 10/25/2021 Pneumococcal Conjugate Vacc, 13 [...] No 05/01/2024 Does the household have a rustlar source of income? (Household - for ages [...] Telephone Encounter - Hannah Ospina MD - 10/07/2024 2:37 PM ESTSigned Prescriptions: Disp Refills HYDROcodone-Acetaminophen 5-325 MG Oral Ta*60 Tab*0 Sig: Take 1 Tablet by mouth every 6 hours as needed for Pain, Moderate or Pain, Severe. Max 2 per day Authorizing Provider: HANNAH OSPINA * Telephone Encounter - Tanika Mistry [facility] - 10/05/2024 1:12 PM EST Pending Prescriptions: Disp Refills HYDROcodone-Acetaminophen 5-325 MG Oral Ta*60 Tab*0 Sig: Take 1 Tablet by mouth every 6 hours as needed for Pain, Moderate or Pain, Severe. Max 2 per day * Telephone Encounter - Tanika Mistry [facility] - 10/05/2024 1:12 PM EST I have reviewed the patient’s controlled substance dispensing history in the Prescription Drug Monitoring Program in compliance with the [facility] regulations before prescribing a controlled substance. PDMP checked on 10/05/2024. Pending Prescriptions: Disp Refills HYDROcodone-Acetaminophen 5-325 MG Oral T*60 Tab*0 Sig: Take 1 Tablet by mouth every 6 hours as needed for Pain, Moderate or Pain, Severe. Max 2 per day Last Visit: 09/10/2024 (in office), Visit date not found (telemedicine) Next Visit: 12/10/2024 Date medication was last filled: 08/29 Date medication is due for refill: 09/27/24 Pharmacy: [id number] Is this request for a controlled substance? Yes and Urine Drug Screen Not completed Toxicology results: No results found. However, due to the size of the patient record, not all encounters were searched.Please check Results Review for a complete set of results. Please approve if appropriate. Thank you, Tanika Mistry, PharmD. Clinical Pharmacist [facility] ([facility]) 10/05/2024, 1:12 PM * Telephone Encounter - Anahy Rudd CPhT - 10/04/2024 3:57 PM EST Patient is up to date for office visits. Pending Prescriptions: Disp Refills HYDROcodone-Acetaminophen 5-325 MG Oral T*60 Tab*0 Sig: Take 1 Tablet by mouth every 6 hours as needed for Pain, Moderate or Pain, Severe. Max 2 per day Last Visit: 09/10/2024 (in office), Visit date not found (telemedicine) Next Visit: 12/10/2024 If no future appointments scheduled, and last appointment is greater than a year ago, please schedule patient for a follow-up appointment Last date the medication was ordered: 08/29/24 Pharmacy: [facility] [id number] Is this request for a controlled substance?Yes, and Urine Drug Screen was NOT completed Urine Drug Screen:No results found. However, [...] 1:00 PM EDT Office Visit Family Practice [facility] [address] [place] [address] Hannah Ospina MD [address] [place] [address] 12/20/2024 10:00 AM EDT Office Visit Cardiology, [facility] [address] [place] [address] Edward Oliver PA-Lloyd [address] [place] [address] 06/04/2025 9:40 AM EDT Office Visit Nephrology, [facility] [address] [place] [address] Ritchie Childress MD [address] [place] [address] 07/07/2025 11:30 AM EST Imaging Radiology [facility] [address] [place] [id number] 07/08/2025 11:00 AM EST Office Visit Rheumatology [facility] [address] [place] [address] Yeyo Barrios MD [address] [place] [address] Scheduled Procedures Name Priority Associated Diagnoses Date/Ti [...] D LEVEL ONCE IN A LIFETIME-USE SMARTSET# 24279 Completed 05/17/2024, 03/07/2024, 07/05/2023, Additional history exists [...] this encounter Medical Devices Implanted Type Area Compensation Administrator Device Identifier Shelf Expiration Date Model / Serial / Lot Dbx 5cc [id number] - [id number] - [id number] Implanted:Qty : 1 on 01/20/2021 by Wyatt Ly MD at OR [facility] Tissue - Human N/A: Spine Cervical MUSCULOSKELETAL TRANSPLANT FND [id number] 08/22/2021 [id number] / [id number] / LOT NA Vitoss Bimodal Foam Pack 10cc - [id number] - [id number] Implanted:Qty : 1 on 01/20/2021 by Wyatt Ly MD at OR [facility] N/A: Spine Cervical PAULETTE : SPINE 12/16/202121013216-1409 / [id number] / [id number] 4.5 X 20mm Cortical Fixation Screw Implanted:Qty : 1 on 01/20/2021 by Wyatt Ly MD at OR [facility] N/A: Spine Cervical [employer] 1020-45-220 / / 4.5 X 22mm Cortical Fixation Screw Implanted:Qty : 1 on 01/20/2021 by Wyatt Ly MD at OR [facility] N/A: Spine Cervical [employer] 1020-45-222 / / 3.5 X 12mm Screws Implanted:Qty : 8 on 01/20/2021 by Wyatt Ly MD at OR [facility] N/A: Spine Cervical [employer] 1020-35-112 / / Set Screws Implanted:Qty : 10 on 01/20/2021 by Wyatt Ly MD at OR [facility] N/A: Spine Cervical [employer] 1020-00-000 / / 60mm Rods Implanted:Qty : 2 on 01/20/2021 by Wyatt Ly MD at OR [facility] N/A: Spine Cervical [employer] 1020-64-060 / / 1cm X 5cm Magnifuse Posterior Cervical Bone Graft (Formerly [employer]) Implanted:Qty : 1 on 03/15/2023 by Wyatt Ly MD at OR [facility] N/A: Spine Lumbar Medtronic Sofamor Danek [id number] 01/05/2025 [id number] / [id number] / LOT NA Catalyft Pl Expandable Interbody System, Interbody Cage Implanted:Qty : 2 on 03/15/2023 by Wyatt Ly MD at OR [facility] N/A: Spine Lumbar Medtronic 03/08/2030 [id number] / / [id number] 6.5 X 45 Screw Implanted:Qty : 2 on 03/15/2023 by Wyatt Ly MD at OR [facility] N/A: Spine Lumbar Medtronic [id number] / / Description:No Exp. Date, us ed out of set 6.5 X 40 Screw Implanted:Qty : 2 on 03/15/2023 by Wyatt Ly MD at OR [facility] N/A: Spine Lumbar Medtronic [id number] / / Description:No Expiration da te, used out of set 7.5 X 40 Screw Implanted:Qty : 2 on 03/15/2023 by Wyatt Ly MD at OR [facility] N/A: Spine Lumbar Medtronic [id number] / / Description:No Expiration Da te, used out of set Screw Bone Ti Set Solera 4.75m - [id number] Implanted:Qty : 6 on 03/15/2023 by Wyatt Ly MD at OR [facility] N/A: Spine Lumbar [employer] [id number] / / Description:No Expiration Da te, used out of set [place] 4.75mm Pbent 55mm - [id number] Implanted:Qty : 2 on 03/15/2023 by Wyatt Ly MD at OR [facility] N/A: Spine Lumbar MEDTR[employer] : NEUROLOGIC PAIN [id number] / / 10cc Mastergraft Biologic Matrix Ext Block Implanted:Qty : 1 on 03/15/2023 by Wyatt Ly MD at OR [facility] N/A: Spine Lumbar Medtronic Sofamor Danek [id number] 11/18/2025 [id number] / [id number] / [id number] Dbx 2.5cc [id number] - [id number] - [id number] Implanted:Qty : 1 on 03/15/2023 by Wyatt Ly MD at OR [facility] N/A: Spine Lumbar MUSCULOSKELETAL TRANSPLANT FND [id number] 08/04/2024 859329 / [id number] / LOT NA Dbx 2.5cc [id number] - [id number] - [id number] Implanted:Qty : 1 on 03/15/2023 by Wyatt Ly MD at OR [facility] N/A: Spine Lumbar MUSCULOSKELETAL TRANSPLANT FND [id number] 10/04/2024 387305 / [id number] / LOT NA Graft Bone Infuse Kit Xsmall - [id number] - [id number] Implanted:Qty : 1 on 03/15/2023 by Wyatt Ly MD at OR [facility] N/A: Spine Lumbar [employer] : NEUROLOGIC PAIN [id number] 07/20/2024 [id number] / [id number] / [id number] documented as of this encounter Visit Diagnoses [...] in partial or unspecified remission History of OK (myocardial infarction) Old myocardial infarction COPD, group B, by GOLD 2017 classification ([facility]) Hypomagnesemia Disorders of magnesium metabolism Hypertensive heart and kidney disease without heart failure and with stage 3a chronic kidney disease (HCC)- Primary Migraine without status migrainosus, not intractable, unspecified migraine type COPD, group B, by GOLD 2017 classification ([facility]) History of OK (myocardial infarction) Old myocardial infarction Major depressive [...] kidney disease (HCC) 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 Question Answer Comments Discussion of Advance Directives occurred with: Not Discussed Care Teams Parliamentary Archivist Relationship Specialty Start Date End Date Hannah Ospina MD [address] [place] [address] PCP - General Family Medicine 04/11/24 documented as of this encounter
--- OUTSIDE RECORDS SUMMARY | 2024-12-27 20:17 | External Medical Summary | Summary of Care ---
Author Name Unknown Organization [facility] Address [address] [place] [address] Phone [phone] Care Team Providers Care Color Card Maker Name Role Phone Dhruv Ospina MD Primary Care Provider [phone] Reason for Visit * Reason Onset Date Comments Medication Refill 11/26/2024 Encounter Details Date Type Department Care Team (Late st Contact Info) Description 11/26/[address] [facility] [address] [place] [address] Dhruv Ospina MD [address] [place] [address] Chest pain, unspecified type Allergies Active Allergy Reactions Criticality Noted Date Comments Varenicline 12/11/2014 nausea Corticosteroids Other (Please comment) Medium 12/27/2013 Hyper, Mental Status Changes on oral steroids Dm-Apap-Cpm Anaphylaxis,Other (Please comment) High 12/27/2013 Contact dermatitis Ibuprofen Other (Please comment) Low 12/27/2013 Affects acid reflux Iodinated Contrast Media Hives 10/08/2007 Penicillins 10/09/2007 Rash documented as of this encounter (statuses as of 11/27/2024) Medications ASPIRIN 81 MG PO TABSIndications:Ca n [...] Hour (toPROL XL)Indications:Cor onary artery disease involving [place] coronary artery of [place] heart with angina pectoris (HCC) TAKE 1/2 [...] pain 25 Tablet 1 11/27/19 25 Active Nitroglycerin 0.4 MG Sublingual Tablet Sublingual (Nitrostat)Indicat ions:Chest pain, unspecified type Take 1 tab sublingual as needed for chest pain 25 Tablet 1 06/18/20 24 025 Discontin ued(Refil l) Hospital, Clinic, or Other Facility Administered Medication Ordered Dose Route Frequency Start Date End Date Status botulinum toxin type a (Botox) inj 200 UnitsIndications:Intractabl e chronic migraine without aura and without status migrainosus 200 Units IM [id number] 09/25/2024 08/27/2025 Active documented as of this encounter (statuses as of 11/27/2024) Active Problems Problem Noted Date Diagnosed Date [...] KATLYN-FRIDA Combination Inhaler Remote Patient Monitoring Vendor: [employer] Device(s): Connected Scale Self-Management plan High frequency [...] at night. Member can be directed to [facility] at [phone] M-F 8am-5pm Adjustment disorder with anxious mood [...] as of this encounter (statuses as of 11/27/2024) Resolved Problems Problem Noted Date Diagnosed Date Resolved Date Coronary artery disease invo lving [place] coronary artery of [place] heart with angina pectoris 11/26/2023 09/10/2024 Assessment [...] Stress test scheduled for 12/22/23 History of ID (myocardial infarction) 04/25/2023 09/10/2024 Syncope 04/25/2023 01/22/2024 [...] in the Comments) Remote Patient Monitoring Vendor: [employer] Device(s): Connected Scale Self - Management Plan Other/Additional Comments: restart lasix daily Exacerbation Plan Anticipated IV Lasix dose: 40 mg BMP Chest X-Ray Additional Comments: Euvolemic today. Nephrology 05/17/24--new pt-[id number]--tmqjk decline in renal function with lasix and [...] in the Comments) Remote Patient Monitoring Vendor: [employer] Device(s): Connected Scale Self - Management Plan [...] fx right #2,3,4,5 (CT done at [facility]) MEDICATION USE AGREEMENT 12/11/201408/2017 Overview (04/05/2016): [...] sciatic sx's - followed by [facility] Pain Management documented as of this encounter (statuses as of 11/27/2024) Immunizations Name Administration Dates Next Due COVID-19 mRNA, LNP-s, No Pre serve, 2-Dose Series (GlamBox) 12/24/2021,05/21/2021,11/04/2020,10/14 COVID-19, MRNA-LNP, PF, 30 M CG/0.3 mL, 12 YRS AND ABOVE, IM (PFIZER-Comirnaty) 06/07/2023 Covid-19, Mrna, Lnp-s, Pf, B ivalent, [...] encounter Miscellaneous Notes * Telephone Encounter - Marvin Arnett, [facility] - 11/26/2024 3:25 PM EDTSigned Prescriptions: Disp Refills Nitroglycerin 0.4 MG Sublingual Tablet Sub*25 Tab*1 Sig: Take 1 tab sublingual as needed for chest pain Authorizing Provider: DHRUV OSPINA Ordering User: MARVIN KOCH * Telephone Encounter - [facility] - 11/26/2024 2:39 PM EDT Did you pend patient's preferred pharmacy and medication before forwarding?yes Pharmacy: [id number] Pending Prescriptions: Disp Refills Nitroglycerin 0.4 MG Sublingual Tablet Fuentes*25 Tab*1 Sig: Take 1 tab sublingual as needed for chest pain Last Visit: 09/10/2024 (in office), Visit date not found (telemedicine) Next Visit: 12/10/2024 If no future appointments scheduled, and last appointment is greater than a year ago, please schedule patient for a follow-up appointment Last date the medication was ordered: 06/18/2024 Is this request for a controlled substance?No [...] 1:00 PM EDT Office Visit Family Practice [facility] [place] [address] [facility] [place] [address] Dhruv Ospina MD [address] [facility] [place] [address] 12/20/2024 10:00 AM EDT Office Visit Cardiology, [facility] [address] [place] [phone] Edward Oliver [facility] [address] [place] [address] 06/04/2025 9:40 AM EDT Office Visit Nephrology, [facility] [address] [place] [address] Ritchie Childress MD [address] [facility] [place] [address] 07/07/2025 11:30 AM EST Imaging Radiology [facility] [address] [place] [phone] 07/08/2025 11:00 AM EST Office Visit Rheumatology [facility] [address] [place] [phone] Yeyo Barrios MD [address] [place] [address] Scheduled Procedures Name Priority Associated Diagnoses Date/Ti [...] D LEVEL ONCE IN A LIFETIME-USE SMARTSET# 42977 Completed 05/17/2024, 03/07/2024, 07/05/2023, Additional history exists [...] this encounter Medical Devices Implanted Type Area Metal Bending Machine Operator Device Identifier Shelf Expiration Date Model / Serial / Lot Dbx 5cc [id number] - [id number] - [id number] Implanted:Qty : 1 on 01/20/2021 by Wyatt Ly MD at OR [facility] Tissue - Human N/A: Spine Cervical MUSCULOSKELETAL TRANSPLANT FND [id number] 08/22/2021 [id number] / [id number] / LOT NA Vitoss Bimodal Foam Pack 10cc - [id number] - [id number] Implanted:Qty : 1 on 01/20/2021 by Wyatt Ly MD at OR [facility] N/A: Spine Cervical PAULETTE : SPINE 12/16/2021 [id number] / [id number] / [id number] 4.5 X 20mm Cortical Fixation Screw Implanted:Qty : 1 on 01/20/2021 by Wyatt Ly MD at OR [facility] N/A: Spine Cervical [employer] 1020-45-220 / / 4.5 X 22mm Cortical Fixation Screw Implanted:Qty : 1 on 01/20/2021 by Wyatt Ly MD at OR [facility] N/A: Spine Cervical DEPUY SP[employer] INC 1020-45-222 / / 3.5 X 12mm Screws Implanted:Qty : 8 on 01/20/2021 by Wyatt Ly MD at OR [facility] N/A: Spine Cervical DEPU[employer] SPINE INC 1020-35-112 / / Set Screws Implanted:Qty : 10 on 01/20/2021 by Wyatt Ly MD at OR [facility] N/A: Spine Cervical DEPUY SPINE INC 1020-00-000 / / 60mm Rods Implanted:Qty : 2 on 01/20/2021 by Wyatt Ly MD at OR [facility] N/A: Spine Cervical DEPUY SPINE INC 1020-64-060 / / 1cm X 5cm Magnifuse Posterior Cervical Bone Graft (Formerly Osteotech) Implanted:Qty : 1 on 03/15/2023 by Wyatt Ly MD at OR [facility] N/A: Spine Lumbar Medtronic Sofamor Danek [id number] 01/05/2025 [id number] / [id number] / LOT NA [facility] [address] Expandable Interbody System, Interbody Cage Implanted:Qty : 2 on 03/15/2023 by Wyatt Ly MD at OR [facility] N/A: Spine Lumbar Medtronic 03/08/2030 [id number] / / [id number] 6.5 X 45 Screw Implanted:Qty : 2 on 03/15/2023 by Wyatt Ly MD at OR [facility] N/A: Spine Lumbar Medtronic [id number] / / Description:No Exp. Date, us ed out of set 6.5 X 40 Screw Implanted:Qty : 2 on 03/15/2023 by Wyatt Ly MD at OR [facility] N/A: Spine Lumbar Medtronic [id number] / / Description:No Expiration da te, used out of set 7.5 X 40 Screw Implanted:Qty : 2 on 03/15/2023 by Wyatt Ly MD at OR [facility] N/A: Spine Lumbar Medtronic [id number] / / Description:No Expiration Da te, used out of set Screw Bone Ti Set Solera 4.75m - [id number] Implanted:Qty : 6 on 03/15/2023 by Wyatt Ly MD at OR [facility] N/A: Spine Lumbar [employer] [id number] / / Description:No Expiration Da te, used out of set Anthony Mooers 4.75mm Pbent 55mm - [id number] Implanted:Qty : 2 on 03/15/2023 by Wyatt Ly MD at OR [facility] N/A: Spine Lumbar MEDTRONIC : NEUROLOGIC PAIN [id number] / / 10cc Mastergraft Biologic Matrix Ext Block Implanted:Qty : 1 on 03/15/2023 by Wyatt Ly MD at OR [facility] N/A: Spine Lumbar Medtronic Sofamor Danek [id number] 11/18/2025 [id number] / [id number] / [id number] Dbx 2.5cc [id number] - [id number] - [id number] Implanted:Qty : 1 on 03/15/2023 by Wyatt Ly MD at OR [facility] N/A: Spine Lumbar MUSCULOSKELETAL TRANSPLANT FND [id number] 08/04/2024 [id number] / [id number] / LOT NA Dbx 2.5cc 387278 - [id number] - [id number] Implanted:Qty : 1 on 03/15/2023 by Wyatt Ly MD at OR [facility] N/A: Spine Lumbar MUSCULOSKELETAL TRANSPLANT FND [id number] 10/04/2024 [id number] / [id number] / LOT NA Graft Bone Infuse Kit Xsmall - [id number] - [id number] Implanted:Qty : 1 on 03/15/2023 by Wyatt Ly MD at OR [facility] N/A: Spine Lumbar MEDTRONIC : NEUROLOGIC PAIN [id number] 07/20/2024 [id number] / [id number] / [id number] documented as of this encounter Visit Diagnoses [...] in partial or unspecified remission History of ID (myocardial infarction) Old myocardial infarction COPD, group B, by GOLD 2017 classification ([facility]) Hypomagnesemia Disorders of magnesium metabolism Hypertensive heart and kidney disease without heart failure and with stage 3a chronic kidney disease (HCC)- Primary Migraine without status migrainosus, not intractable, unspecified migraine type COPD, group B, by GOLD 2017 classification ([facility]) History of ID (myocardial infarction) Old myocardial infarction Major depressive [...] with stage 3a chronic kidney disease ([facility]) Screening for thyroid disorder Black stool Nonspecific abnormal finding in stool contents Bluish skin discoloration- Primary Cyanosis Hypertensive heart and kidney disease with chronic diastolic congestive heart failure and stage 3a chronic kidney disease (HCC) Coronary artery disease involving [place] coronary artery of [place] heart with angina pectoris (HCC) COPD (chronic obstructive pulmonary disease) with chronic bronchitis (HCC) Obstructive chronic bronchitis without exacerbation Hypertensive heart and kidney disease with chronic diastolic congestive heart failure and stage 3a chronic kidney disease (HCC)- Primary Chest pain, unspecified type Coronary artery disease involving [place] coronary artery of [place] heart with angina pectoris (HCC) Dysphagia, unspecified [...] Abdominal pain, unspecified site Insomnia, unspecified type Chest pain, unspecified type documented in this encounter Advance Directives * [...] Directives occurred with: Not Discussed Care Teams Color Card Maker Relationship Specialty Start Date End Date Dhruv Ospina MD [address] [place] [address] PCP - General Family Medicine 04/11/24 documented as of this encounter
--- OUTSIDE RECORDS SUMMARY | 2024-12-27 20:17 | External Medical Summary | Summary of Care ---
Author Name Unknown Organization [facility] Address [address] [place] [address] Phone [phone] Care Team Providers Care Systems Programmer Name Role Phone Hannah Ospina MD Primary Care Provider [phone] Reason for Visit * Reason Onset Date Comments Preop Pt Assessment 09/30/2024 Encounter Details Date Type Department Care Team (Late st Contact Info) Description 09/30/2024 Telephone Pre Surgery Center, [facility] [address] [place] [phone] Riki Sanchez MD [address] [facility] [place] [address] Preop Pt Assessment Allergies Active Allergy Reactions Criticality Noted Date Comments Varenicline 12/11/2014 nausea Corticosteroids Other (Please comment) Medium 12/27/2013 Hyper, Mental Status Changes on oral steroids Dm-Apap-Cpm Anaphylaxis,Other (Please comment) High 12/27/2013 Contact dermatitis Ibuprofen Other (Please comment) Low 12/27/2013 Affects acid reflux Iodinated Contrast Media Hives 10/08/2007 Penicillins 10/09/2007 Rash documented as of this encounter (statuses as of 10/07/2024) Medications ASPIRIN 81 MG PO TABSIndications:C an [...] Hour (toPROL XL)Indications: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 at [phone] M-F 8am-5pm Adjustment disorder with anxious mood [...] 05/21/2018 Diastolic dysfunction 11/24/2017 Age-related osteoporosis wit conner current pathological fracture 09/10/2015 Overview (09/10/2015): Fosamax [...] Resolved Date Coronary artery disease invo lving [place] coronary artery of [place] heart with angina pectoris 11/26/2023 09/10/2024 Assessment [...] Stress test scheduled for 12/22/23 History of VT (myocardial infarction) 04/25/2023 09/10/2024 Syncope 04/25/2023 01/22/2024 [...] in the Comments) Remote Patient Monitoring Vendor: [employer] Device(s): Connected Scale Self - Management Plan Other/Additional Comments: restart lasix daily Exacerbation Plan Anticipated IV Lasix dose: 40 mg BMP Chest X-Ray Additional Comments: Euvolemic today. Nephrology 05/17/24--new pt-[id number]--ewevd decline in renal function with lasix and [...] in the Comments) Remote Patient Monitoring Vendor: [employer] Device(s): Connected Scale Self - Management Plan [...] non-displaced fx right #2,3,4,5 (CT done at [facility]) MEDICATION USE AGREEMENT 12/11/201408/2017 Overview (04/05/2016): [...] left sciatic sx's - followed by [facility] Pain Management documented as of this encounter (statuses as of 10/07/2024) Immunizations Name Administration Dates Next Due COVID-19 mRNA, LNP-s, No Pre serve, 2-Dose Series (Pfizer) 12/24/2021,05/21/2021,11/04/2020,10/14 COVID-19, MRNA-LNP, PF, 30 M CG/0.3 mL, 12 YRS AND ABOVE, IM [facility] 06/07/2023 Covid-19, Mrna, Lnp-s, Pf, B ivalent, [...] Josee Kingston RN documented in this encounter Plan of Treatment Upcoming Encounters Date Type Department Care Team (Latest Contact Info) Description 10/09/2024 11:45 AM EST Hospital Encounter ENDO [facility], Endoscopy Room [facility] [address] [place] [phone] Riki Sanchez MD [address] [place] [address] 10/09/2024 11:45 AM EST - 10/09/2024 12:15 PM EST Surgery ENDO [facility], Endoscopy Room [facility] [address] [place] [phone] Riki Sanchez MD [address] [place] [address] COLONOSCOPY FLEXIBLE PROXIMAL DIAGNOSTIC 12/10/2024 1:00 PM EDT Office Visit Family Practice [facility] [address] [place] [address] Hannah Ospina MD [address] [facility] [place] [address] 12/20/2024 10:00 AM EDT Office Visit Cardiology, [facility] [address] [place] [address] Edward Oliver PACherise [address] [place] [address] 06/04/2025 9:40 AM EDT Office Visit Nephrology, [facility] [address] [facility] [place] [address] Ritchie Childress MD [address] [facility] [place] [address] 07/07/2025 11:30 AM EST Imaging Radiology [facility] [address] [place] [phone] 07/08/2025 11:00 AM EST Office Visit Rheumatology [facility] [address] [place] [phone] Yeyo Barrios MD [address] [facility] [place] [address] Scheduled Procedures Name Priority Associated Diagnoses Date/Ti [...] D LEVEL ONCE IN A LIFETIME-USE SMARTSET# 73195 Completed 05/17/2024, 03/07/2024, 07/05/2023, Additional history exists [...] this encounter Medical Devices Implanted Type Area Leathersmith Device Identifier Shelf Expiration Date Model / Serial / Lot Dbx 5cc [id number] - [id number] - [id number] Implanted:Qty : 1 on 01/20/2021 by Wyatt Ly MD at OR [facility] Tissue - Human N/A: Spine Cervical MUSCULOSKELETAL TRANSPLANT FND [id number] 08/22/2021 [id number] / [id number] / LOT NA Vitoss Bimodal Foam Pack 10cc - [id number] - [id number] Implanted:Qty : 1 on 01/20/2021 by Wyatt Ly MD at OR [facility] N/A: Spine Cervical PAULETTE : SPINE 12/16/2021 [id number] / [id number] / [id number] 4.5 X 20mm Cortical Fixation Screw Implanted:Qty : 1 on 01/20/2021 by Wyatt Ly MD at OR [facility] N/A: Spine Cervical DEPUY SP[employer] INC 1020-45-220 / / 4.5 X 22mm Cortical Fixation Screw Implanted:Qty : 1 on 01/20/2021 by Wyatt Ly MD at OR [facility] N/A: Spine Cervical DEPUY SP[employer] INC 1020-45-222 / / 3.5 X 12mm Screws Implanted:Qty : 8 on 01/20/2021 by Wyatt Ly MD at OR [facility] N/A: Spine Cervical DEPUY SP[employer] INC 1020-35-112 / / Set Screws Implanted:Qty : 10 on 01/20/2021 by Wyatt Ly MD at OR [facility] N/A: Spine Cervical DEPUY SPINE INC 1020-00-000 / / 60mm Rods Implanted:Qty : 2 on 01/20/2021 by Wyatt Ly MD at OR [facility] N/A: Spine Cervical DEPUY SPINE INC 1020-64-060 / / 1cm X 5cm Magnifuse Posterior Cervical Bone Graft (Formerly Osteotech) Implanted:Qty : 1 on 03/15/2023 by Wyatt Ly MD at OR [facility] N/A: Spine Lumbar Medtronic [email or web address] [id number] 01/05/2025 [id number] / [id number] / LOT NA [address] Expandable Interbody System, Interbody Cage Implanted:Qty : 2 on 03/15/2023 by Wyatt Ly MD at OR [facility] N/A: Spine Lumbar Medtronic 03/08/2030 [id number] / / [id number] 6.5 X 45 Screw Implanted:Qty : 2 on 03/15/2023 by Wyatt Ly MD at OR [facility] N/A: Spine Lumbar Medtronic [id number] / / Description:No Exp. Date, us ed out of set 6.5 X 40 Screw Implanted:Qty : 2 on 03/15/2023 by Wyatt Ly MD at OR [facility] N/A: Spine Lumbar Medtronic [id number] / / Description:No Expiration da te, used out of set 7.5 X 40 Screw Implanted:Qty : 2 on 03/15/2023 by Wyatt Ly MD at OR [facility] N/A: Spine Lumbar Medtronic [id number] / / Description:No Expiration Da te, used out of set Screw Bone Ti Set Solera 4.75m - [id number] Implanted:Qty : 6 on 03/15/2023 by Wyatt Ly MD at OR [facility] N/A: Spine Lumbar MEDTRONIC [facility] [id number] / / Description:No Expiration Da te, used out of set Anthony Nebo 4.75mm Pbent 55mm - [id number] Implanted:Qty : 2 on 03/15/2023 by Wyatt Ly MD at OR [facility] N/A: Spine Lumbar MEDTRONIC : NEUROLOGIC PAIN [id number] / / 10cc Mastergraft Biologic Matrix Ext Block Implanted:Qty : 1 on 03/15/2023 by Wyatt Ly MD at OR [facility] N/A: Spine Lumbar Medtronic Sofamor Danek [id number] 11/18/2025 [id number] / [id number] / [id number] Dbx 2.5cc 173109 - [id number] - [id number] Implanted:Qty : 1 on 03/15/2023 by Wyatt Ly MD at OR [facility] N/A: Spine Lumbar MUSCULOSKELETAL TRANSPLANT FND [id number] 08/04/2024 926669 / [id number] / LOT NA Dbx 2.5cc 700196 - [id number] - [id number] Implanted:Qty : 1 on 03/15/2023 by Wyatt Ly MD at OR [facility] N/A: Spine Lumbar MUSCULOSKELETAL TRANSPLANT FND [id number] 10/04/2024 513768 / [id number] / LOT NA Graft Bone Infuse Kit Xsmall - [id number] - [id number] Implanted:Qty : 1 on 03/15/2023 by Wyatt Ly MD at OR [facility] N/A: Spine Lumbar MEDTRONIC : NEUROLOGIC PAIN [id number] 07/20/2024 [id number] / [id number] / [id number] documented as of this encounter Advance Directives [...] Directives occurred with: Not Discussed Care Teams Systems Programmer Relationship Specialty Start Date End Date Hannah Ospina MD [address] [place] [address] PCP - General Family Medicine 04/11/24 documented as of this encounter
--- OUTSIDE RECORDS SUMMARY | 2024-12-27 20:17 | External Medical Summary | Summary of Care ---
Author Name Unknown Organization [facility] Address [address] [place] [address] Phone [phone] Care Team Providers Care Promotional Representative Name Role Phone Hannah Ospina MD Primary Care Provider [phone] Reason for Referral * Clinic-administered Medications (Within 10 days (routine)) - Pending Review Specialty Diagnoses / Procedures Referred By Contac t Referred To Contact Diagnoses Intractable chronic migraine without aura and without status migrainosus Cassidy Tucker, [facility] [address] [place] [address] Phone: tel: fax: Referral ID Status Reason Start Date Expiration Date V isits Requested Visits Authorized [id number] Pending Review 09/25/2024 4 4 Encounter Details Date Type Department Care Team (Late st Contact Info) Description 09/25/2024 Orders Only Neurology [facility] [place] [address] [place] [address] Fidel Zuniga DO [address] [facility] [place] [address] Intractable chronic migraine without aura and without status migrainosus* Allergies Active Allergy Reactions Criticality Noted Date Comments Varenicline 12/11/2014 nausea Corticosteroids Other (Please comment) Medium 12/27/2013 Hyper, Mental Status Changes on oral steroids Dm-Apap-Cpm Anaphylaxis,Other (Please comment) High 12/27/2013 Contact dermatitis Ibuprofen Other (Please comment) Low 12/27/2013 Affects acid reflux Iodinated Contrast Media Hives 10/08/2007 Penicillins 10/09/2007 Rash documented as of this encounter (statuses as of 09/26/2024) Medications ASPIRIN 81 MG PO TABSIndications:Ca n [...] THE MORNING 90 Tablet 3 4 Active Amitriptyline HCl 10 MG Oral Tablet (Elavil) TAKE 2 TABLETS BY MOUTH AT BEDTIME 180 Tablet 2 4 Active Omeprazole 40 MG Oral Capsule [...] Hour (toPROL XL)Indications:Cor onary artery disease involving tribal coronary artery of tribal heart with angina pectoris (HCC) TAKE 1/2 [...] the morning. 4 g 1 5 Active Hospital, Clinic, or Other Facility Administered Medication Ordered Dose Route Frequency Start Date End Date Status botulinum toxin type a (Botox) inj 200 UnitsIndications:Intractabl e chronic migraine without aura and without status migrainosus 200 Units IM [id number] 09/25/2024 08/27/2025 Active documented as of this encounter (statuses as of 09/26/2024) Active Problems Problem Noted Date Diagnosed Date [...] KATLYN-FRIDA Combination Inhaler Remote Patient Monitoring Vendor: [facility] – [place] Device(s): Connected Scale Self-Management plan High frequency [...] Member can be directed to [facility] at [phone] M-F 8am-5pm Adjustment disorder with anxious mood [...] as of this encounter (statuses as of 09/26/2024) Resolved Problems Problem Noted Date Diagnosed Date Resolved Date 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 Nephrology 05/17/24--new pt-[id number]--[id number] decline in renal function with lasix and [...] in the Comments) Remote Patient Monitoring Vendor: [employer] Device(s): Connected Scale Self - Management Plan [...] non-displaced fx right #2,3,4,5 (CT done at [facility]) MEDICATION USE AGREEMENT 12/11/201408/2017 Overview [...] sx's - followed by [facility] documented as of this encounter (statuses as of 09/26/2024) Immunizations Name Administration Dates Next Due COVID-19 mRNA, LNP-s, No Pre serve, 2-Dose Series ([employer]) 12/24/2021,05/21/2021,11/04/2020,10/14 COVID-19, MRNA-LNP, PF, 30 M CG/0.3 mL, 12 YRS AND ABOVE, IM ([facility]) 06/07/2023 Covid-19, Mrna, Lnp-s, Pf, B ivalent, 30 Mcg, IM, 12 yrs and above ([employer]) 05/09/2022 PPD 10/25/2021 Pneumococcal Conjugate Vacc, 13 [...] Care Team (Late st Contact Info) Description 09/27/2024 3:00 PM EST Office Visit Orthopaedics Spine Surgery [facility] [address] [place] [phone] Wyatt Ly MD [address] [place] [address] 10/09/2024 11:45 AM EST Hospital Encounter ENDO [facility], Endoscopy Room [facility] [address] [place] [phone] Riki Sanchez MD [address] [place] [address] 10/09/2024 11:45 AM EST - 10/09/2024 12:15 PM EST Surgery ENDO [facility], Endoscopy Room [facility] [address] [place] [phone] Riki Sanchez MD [address] [place] [address] COLONOSCOPY FLEXIBLE PROXIMAL DIAGNOSTIC 12/10/2024 1:00 PM EDT Office Visit Family Practice [facility] [address] [facility] [place] [address] Hannah Ospina MD [address] [facility] [place] [address] 12/20/2024 10:00 AM EDT Office Visit Cardiology, [facility] [address] [place] [address] Edward Oliver PA-C [address] [place] [address] 06/04/2025 9:40 AM EDT Office Visit Nephrology, N[facility]ly Petersen [address] [place] [address] Ritchie Childress MD [address] [place] [address] 07/07/2025 11:30 AM EST Imaging Radiology [facility] [address] [place] [phone] 07/08/2025 11:00 AM EST Office Visit Rheumatology [facility] [address] [place] [phone] Yeyo Barrios MD [address] [facility] [place] [address] Scheduled Procedures Name Priority Associated Diagnoses Date/Ti [...] D LEVEL ONCE IN A LIFETIME-USE SMARTSET# 27272 Completed 05/17/2024, 03/07/2024, 07/05/2023, Additional history exists [...] this encounter Medical Devices Implanted Type Area International Organizer Device Identifier Shelf Expiration Date Model / Serial / Lot Dbx 5cc [id number] - [id number] - [id number] Implanted:Qty : 1 on 01/20/2021 by Wyatt Ly MD at OR [facility] Tissue - Human N/A: Spine Cervical MUSCULOSKELETAL TRANSPLANT FND [id number] 08/22/2021 [id number] / [id number] / LOT NA Vitoss Bimodal Foam Pack 10cc - [id number] - [id number] Implanted:Qty : 1 on 01/20/2021 by Wyatt Ly MD at OR [facility] N/A: Spine Cervical PAULETTE : SPINE 12/16/2021 [id number] / [id number] / [id number] 4.5 X 20mm Cortical Fixation Screw Implanted:Qty [...] SYSTEM N/A: Spine Lumbar Medtronic Sofamor [employer]ane[employer] [id number] 01/05/2025 [id number] / [id number] / LOT NA Catalyft Pl Expandable Interbody System, Interbody Cage Implanted:Qty : 2 on 03/15/2023 by Wyatt Ly MD at OR [facility] N/A: Spine Lumbar Medtronic 03/08/2030 [id number] / / [id number] 6.5 X 45 Screw Implanted:Qty : 2 on 03/15/2023 by Wyatt Ly MD at OR [facility] N/A: Spine Lumbar Medtronic [id number] / / Description:No Exp. Date, us ed out of set 6.5 X 40 Screw Implanted:Qty : 2 on 03/15/2023 by Wyatt Ly MD at OR [facility] N/A: Spine Lumbar Medtronic [id number] / / Description:No Expiration da te, used out of set 7.5 X 40 Screw Implanted:Qty : 2 on 03/15/2023 by Wyatt Ly MD at OR [facility] N/A: Spine Lumbar Medtronic [id number] / / Description:No Expiration Da te, used out of set Screw Bone Ti Set Solera 4.75m - [id number] Implanted:Qty : 6 on 03/15/2023 by Wyatt Ly MD at OR [facility] N/A: Spine Lumbar [employer]TRONIC [employer] [id number] / / Description:No Expiration Da te, used out of set Anthony Hartman 4.75mm Pbent 55mm - [id number] Implanted:Qty : 2 on 03/15/2023 by Wyatt yL MD at OR [facility] N/A: Spine Lumbar MEDTRONIC : NEUROLOGIC PAIN [id number] / / 10cc Mastergraft Biologic Matrix Ext Block Implanted:Qty : 1 on 03/15/2023 by Wyatt Ly MD at OR [facility] N/A: Spine Lumbar Medtronic Sofamor [employer]ane[employer] [id number] 11/18/2025 [id number] / [id number] / [id number] Dbx 2.5cc [id number] - [id number] - [id number] Implanted:Qty : 1 on 03/15/2023 by Wyatt Ly MD at OR [facility] N/A: Spine Lumbar MUSCULOSKELETAL TRANSPLANT FND [id number] 08/04/2024 [id number] / [id number] / LOT NA Dbx 2.5cc [id number] - [id number] - [id number] Implanted:Qty : 1 on 03/15/2023 by Wyatt Ly MD at OR [facility] N/A: Spine Lumbar MUSCULOSKELETAL TRANSPLANT FND [id number] 10/04/2024 [id number] / [id number] / LOT NA Graft Bone Infuse Kit Xsmall - [id number] - [id number] Implanted:Qty : 1 on 03/15/2023 by Wyatt Ly MD at OR [facility] N/A: Spine Lumbar MEDTRONIC : NEUROLOGIC PAIN [id number] 07/20/2024 [id number] / [id number] / [id number] documented as of this encounter Visit Diagnoses [...] in partial or unspecified remission History of DE (myocardial infarction) Old myocardial infarction COPD, group B, by GOLD 2017 classification ([facility]) Hypomagnesemia Disorders of magnesium metabolism Hypertensive heart and kidney disease without heart failure and with stage 3a chronic kidney disease (HCC)- Primary Migraine without status migrainosus, not intractable, unspecified migraine type COPD, group B, by GOLD 2017 classification ([facility]) History of DE (myocardial infarction) Old myocardial infarction Major depressive [...] with stage 3a chronic kidney disease ([facility]) Screening for thyroid disorder Black stool Nonspecific abnormal finding in stool contents Bluish skin discoloration- Primary Cyanosis Hypertensive heart and kidney disease with chronic diastolic congestive heart failure and stage 3a chronic kidney disease (HCC) 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) Obstructive chronic bronchitis without exacerbation Hypertensive heart and kidney disease with chronic diastolic congestive heart failure and stage 3a chronic kidney disease (HCC)- Primary Chest pain, unspecified type 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) Dysphagia, unspecified [...] Abdominal pain, unspecified site Insomnia, unspecified type Intractable chronic migraine without aura and without status migrainosus- Primary Chronic migraine without aura, with intractable migraine, so stated, without mention of status migrainosus History of colon polyps Personal history of colonic polyps documented in this encounter Advance Directives * [...] Directives occurred with: Not Discussed Care Teams Promotional Representative Relationship Specialty Start Date End Date Hannah Ospina MD [address] [facility] [place] [address] PCP - General Family Medicine 04/11/24 documented as of this encounter
--- OUTSIDE RECORDS SUMMARY | 2024-12-27 20:18 | External Medical Summary | Summary of Care ---
Author Name Unknown Organization [facility] Address [address] [place] [address] Phone [phone] Care Team Providers Care Field Secretary Name Role Phone Hannah Ospina MD Primary Care Provider Reason for Visit * Reason Comments Outpatient Testing Encounter Details Date Type Department Care Team (Late st Contact Info) Description 09/10/2024 1:50 PM EST Laboratory Laboratory [facility] [address] [place] [id number] [facility] Hypertension goal BP (blood pressure) < 140/90; Stage 3b chronic kidney disease (CKD) ([facility]); History of kidney stones; Right flank pain Allergies Active Allergy Reactions Criticality Noted Date Comments Varenicline 12/11/2014 nausea Corticosteroids Other (Please comment) Medium 12/27/2013 Hyper, Mental Status Changes on oral steroids Dm-Apap-Cpm Anaphylaxis,Other (Please comment) High 12/27/2013 Contact dermatitis Ibuprofen Other (Please comment) Low 12/27/2013 Affects acid reflux Iodinated Contrast Media Hives 10/08/2007 Penicillins 10/09/2007 Rash documented as of this encounter (statuses as of 09/10/2024) Medications ASPIRIN 81 MG PO TABSIndications:Ca n [...] Hour (toPROL XL)Indications: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 EGD ordered and scheduled in Sep. Hypertension goal BP (blood pressure) < 140/90 0 05/09/2024 COPD (chronic obstructive pu lmonary disease) with chronic bronchitis 03/02/2024 Assessment & Plan (05/01/2024 12:40 PM EDT): "RED FLAG" COPD symptoms: Increased shortness of breath at rest Cough Medication Regimen Class A - KATLYN-FRIDA Combination Inhaler Remote Patient Monitoring Vendor: [facility] Device(s): Connected Scale Self-Management plan High [...] at night. Member can be directed to [facility] at [phone] M-F 8am-5pm Adjustment disorder with anxious mood 11/26/2023 Migraine without status migrainosus, not intract able 04/25/2023 Assessment & Plan (08/01/2023 6:26 PM EST): Not needed Emgality for several months Major depressive disorder, r ecurrent episode, in partial remission 04/25/2023 Assessment & Plan (08/01/2023 6:56 PM EST): Continue with zoloft History of [place] (myocardial infarction) 04/25/2023 Lumbar spinal stenosis 03/15/2023 Assessment & Plan (08/01/2023 8:02 AM EST): [...] disorder) 05/21/2018 Diastolic dysfunction 11/24/2017 Age-related osteoporosis yohannes prieto current pathological fracture 09/10/2015 Overview (09/10/2015): Fosamax started 09/10/15 DEXA: 2016: S/H: -2.7/-2.2 - high risk Dyslipidemia Generalized osteoarthrosis, involving multiple s ites Gastroesophageal reflux disease without esophagi tis Overview (10/25/2016): EGD 10/25/16: normal EGD 04/15/15: normal esophagus, + gastric erythema: bx pending documented as of this encounter (statuses as of 09/10/2024) Resolved Problems Problem Noted Date Diagnosed Date Resolved Date Coronary artery disease invo lving [place] coronary artery of [place] heart with angina pectoris 11/26/2023 09/10/2024 Assessment [...] and isosorbide. Stress test scheduled for 12/22/23 Syncope 04/25/2023 01/22/2024 Assessment & Plan (04/25/2023 [...] in the Comments) Remote Patient Monitoring Vendor: [facility] Device(s): Connected Scale Self - Management Plan Other/Additional Comments: restart lasix daily Exacerbation Plan Anticipated IV Lasix dose: 40 mg BMP Chest X-Ray Additional Comments: Euvolemic today. Nephrology 05/17/24--new pt-[id number]--vujwf decline in renal function with lasix and [...] in the Comments) Remote Patient Monitoring Vendor: [facility] Device(s): Connected Scale Self - Management Plan [...] non-displaced fx right #2,3,4,5 (CT done at [facility]) MEDICATION USE AGREEMENT 12/11/201408/2017 Overview (04/05/2016): [...] as of this encounter (statuses as of 09/10/2024) Immunizations Name Administration Dates Next Due COVID-19 mRNA, LNP-s, No Pre serve, 2-Dose Series (myDrugCosts) 12/24/2021,05/21/2021,11/04/2020,10/14 COVID-19, MRNA-LNP, PF, 30 M CG/0.3 mL, 12 YRS AND ABOVE, IM (Radario-Comirnat) 06/07/2023 Covid-19, Mrna, Lnp-s, Pf, B ivalent, [...] ages 0-17 years) Not on file 05/01/2024 Comments No Sex and Gender Information [...] Author No 03/15/2023 2:09 PM EDT Josee Rene, RN documented as of this encounter Mental Status * Because of a physical, mental, or emotional condition, do you have serious difficulty concentrating, remembering, or making decisions? (5 years old or older) Answer Entry Date Author No 03/15/2023 2:09 PM EDT Josee Rene RN documented in this encounter Plan of Treatment Upcoming Encounters Date Type Department Care Team (Late st Contact Info) Description 09/10/2024 2:30 PM EST Office Visit Ophthalmology, [facility] [address] [place] [address] Cas Santos DO [address] [place] [address] 09/11/2024 1:40 PM EST Telemedicine [facility] [address] [place] [address] Nati Broderick CRNP [address] [place] [address] Jeanie Ruiz, Community Health Esthetician Permanent Makeup Artist [address] [place] [address] 09/13/2024 10:00 AM EST Imaging Radiology [facility] [address] [place] [phone] 09/13/2024 1:15 PM EST Office Visit Orthopaedics Spine Surgery [facility] [address] [place] [phone] Wyatt Ly MD [address] [place] [address] [place] [address] 10/09/2024 11:45 AM EST Hospital Encounter ENDO [facility], Endoscopy Room [facility] [address] [place] [phone] Riki Sanchez MD [address] [place] [address] 10/09/2024 11:45 AM EST - 10/09/2024 12:15 PM EST Surgery ENDO [facility], Endoscopy Room [facility] [address] [place] [phone] Riki Sanchez MD [address] [place] [address] COLONOSCOPY FLEXIBLE PROXIMAL DIAGNOSTIC 12/10/2024 1:00 PM EDT Office Visit Family Practice [facility] [address] [facility] [place] [address] Hannah Ospina MD [address] [facility] [place] [address] 12/20/2024 10:00 AM EDT Office Visit Cardiology, [facility] [address] [place] [address] dEward Oliver PACherise [address] [place] [address] 06/04/2025 9:40 AM EDT Office Visit Nephrology, [facility] [address] [place] [address] Ritchie Childress MD [address] [facility] [place] [address] 07/07/2025 11:30 AM EST Imaging Radiology [facility] [address] [place] [phone] 07/08/2025 11:00 AM EST Office Visit Rheumatology [facility] [address] [place] [phone] Yeyo Barrios MD [address] [place] [address] [place] [address] Pending Results Name Type Priority Associated Diagnoses Date /Time BASIC METABOLIC PANEL Lab Routine Hypertension goal BP (blood pressure) < 140/90 Stage 3b chronic kidney disease (CKD) (HCC) 09/10/2024 1:46 PM EST URINALYSIS, REFLEX TO MICROSCOPIC Lab Routine History of kidney stones Right flank pain 09/10/2024 1:50 PM EST Scheduled Procedures Name Priority Associated [...] 2024 05/24/2024, 07/09/2023, 06/07/2023, Additional history exists GFR 11/14/2024 05/17/2024, 02/19, 03/07/2024, Additional history exists Mammogram 02/08/2025 02/09/2024, 01/20, 12/06/2022, Additional history exists Albumin/Creatinine Ratio 05/17/2025 024, 02/25/2022, 02/02/2021 O2 ASSESSMENT COMPLETED IN PAST YEAR FOR COPD 06/18/2025 06/18/2024 DXA Scan 07/03/2025 07/03/2023, 06/21, 06/21/2021, Additional history exists Lipid Panel 03/01/2029 03/01/2024, 04/22, 10/25/2021, Additional [...] D LEVEL ONCE IN A LIFETIME-USE SMARTSET# [id number] Completed 05/17/2024, 03/07/2024, 07/05/2023, Additional history exists [...] this encounter Medical Devices Implanted Type Area District Operations Manager Device Identifier Shelf Expiration Date Model / Serial / Lot Dbx 5cc [id number] - [id number] - [id number] Implanted:Qty : 1 on 01/20/2021 by Wyatt Ly MD at [facility] Tissue - Human N/A: Spine Cervical MUSCULOSKELETAL TRANSPLANT FND [id number] 08/22/2021 [id number] / [id number] / LOT NA Vitoss Bimodal Foam Pack [facility] - [id number] - [id number] Implanted:Qty : 1 on 01/20/2021 by Wyatt Ly MD at [facility] N/A: Spine Cervical PAULETTE : SPINE 12/16/2021 [id number] / [id number] / [id number] 4.5 X 20mm Cortical Fixation Screw Implanted:Qty : 1 on 01/20/2021 by Wyatt Ly MD at [facility] N/A: Spine Cervical [employer] 1020-45-220 / / 4.5 X 22mm Cortical Fixation Screw Implanted:Qty : 1 on 01/20/2021 by Wyatt Ly MD at [facility] N/A: Spine Cervical [employer] 1020-45-222 / / 3.5 X 12mm Screws Implanted:Qty : 8 on 01/20/2021 by Wyatt Ly MD at [facility] N/A: Spine Cervical [employer] 1020-35-112 / / Set Screws Implanted:Qty : 10 on 01/20/2021 by Wyatt Ly MD at [facility] N/A: Spine Cervical [employer] 1020-00-000 / / 60mm Rods Implanted:Qty : 2 on 01/20/2021 by Wyatt Ly MD at [facility] N/A: Spine Cervical [employer]PU[employer] 1020-64-060 / / 1cm X 5cm Magnifuse Posterior Cervical Bone Graft (Formerly [employer]otech) Implanted:Qty : 1 on 03/15/2023 by Wyatt Ly MD at [facility] N/A: Spine Lumbar Medtronic Sofamor Danek [id number] 01/05/2025 [id number] / [id number] / LOT NA Catalyft Pl Expandable Interbody System, Interbody Cage Implanted:Qty : 2 on 03/15/2023 by Wyatt Ly MD at [facility] N/A: Spine Lumbar Medtronic 03/08/2030 [id number] / / [id number] 6.5 X 45 Screw Implanted:Qty : 2 on 03/15/2023 by Wyatt Ly MD at [facility] N/A: Spine Lumbar Medtronic [id number] / / Description:No Exp. Date, us ed out of set 6.5 X 40 Screw Implanted:Qty : 2 on 03/15/2023 by Wyatt Ly MD at [facility] N/A: Spine Lumbar Medtronic [id number] / / Description:No Expiration da te, used out of set 7.5 X 40 Screw Implanted:Qty : 2 on 03/15/2023 by Wyatt Ly MD at [facility] N/A: Spine Lumbar Medtronic [id number] / / Description:No Expiration Da te, used out of set Screw Bone Ti Set Solera 4.75m - [id number] Implanted:Qty : 6 on 03/15/2023 by Wyatt Ly MD at [facility] N/A: Spine Lumbar [employer] [id number] / / Description:No Expiration Da te, used out of set Anthony Elrod 4.75mm Pbent 55mm - [id number] Implanted:Qty : 2 on 03/15/2023 by Wyatt Ly MD at [facility] N/A: Spine Lumbar MEDTRONIC : NEUROLOGIC PAIN [id number] / / 10cc Mastergraft Biologic Matrix Ext Block Implanted:Qty : 1 on 03/15/2023 by Wyatt Ly MD at [facility] N/A: Spine Lumbar Medtronic Sofamor Danek [id number] 11/18/2025 [id number] / [id number] / [id number] Dbx 2.5cc [id number] - [id number] - [id number] Implanted:Qty : 1 on 03/15/2023 by Wyatt Ly MD at [facility] N/A: Spine Lumbar MUSCULOSKELETAL TRANSPLANT FND [id number] 08/04/2024 [id number] / [id number] / LOT NA Dbx 2.5cc [id number] - [id number] - [id number] Implanted:Qty : 1 on 03/15/2023 by Wyatt Ly MD at [facility] N/A: Spine Lumbar MUSCULOSKELETAL TRANSPLANT FND [id number] 10/04/2024 [id number] / [id number] / LOT NA Graft Bone Infuse Kit Xsmall - [id number] - [id number] Implanted:Qty : 1 on 03/15/2023 by Wyatt Ly MD at [facility] N/A: Spine Lumbar MEDTRONIC : NEUROLOGIC PAIN [id number] 07/20/2024 [id number] / [id number] / [id number] documented as of this encounter Visit Diagnoses [...] in partial or unspecified remission History of [place] (myocardial infarction) Old myocardial infarction COPD, group [...] [facility]) History of [place] (myocardial infarction) Old myocardial infarction Major depressive [...] kidney disease (HCC) Coronary artery disease involving [place] coronary artery of [place] heart with angina pectoris (HCC) COPD (chronic obstructive pulmonary disease) with chronic bronchitis (HCC) Obstructive chronic bronchitis without exacerbation Hypertensive heart and kidney disease with chronic diastolic congestive heart failure and stage 3a chronic kidney disease (HCC)- Primary Chest pain, unspecified type Coronary artery disease involving [place] coronary artery of [place] heart with angina pectoris (HCC) Dysphagia, unspecified type Hypertension goal BP (blood pressure) < 140/90 Unspecified essential hypertension Stage 3b chronic kidney disease (CKD) (HCC) History of kidney stones Personal history of urinary calculi Right flank pain Abdominal pain, unspecified site History of colon polyps Personal history of [...] Directives occurred with: Not Discussed Care Teams Field Secretary Relationship Specialty Start Date End Date Hannah Ospina MD [address] [place] [address] PCP - General Family Medicine 04/11/24 documented as of this encounter
--- OUTSIDE RECORDS SUMMARY | 2024-12-27 20:18 | External Medical Summary | Summary of Care ---
Author Name Unknown Organization [facility] Address [address] [place] [address] Phone [phone] Care Team Providers Care Regrind Mill Operator Name Role Phone Hannah Ospina MD Primary Care Provider [phone] Reason for Visit * Reason Onset Date Comments Appointment 06/21/2024 Encounter Details Date Type Department Care Team (Late st Contact Info) Description 06/21/2024 Telephone Cardiology, [facility] [address] [facility] [place] [address] Edward Oliver PACherise [address] [place] [address] Appointment Allergies Active Allergy Reactions Criticality Noted Date Comments Varenicline 12/11/2014 nausea Corticosteroids Other (Please comment) Medium 12/27/2013 Hyper, Mental Status Changes on oral steroids Dm-Apap-Cpm Anaphylaxis,Other (Please comment) High 12/27/2013 Contact dermatitis Ibuprofen Other (Please comment) Low 12/27/2013 Affects acid reflux Iodinated Contrast Media Hives 10/08/2007 Penicillins 10/09/2007 Rash documented as of this encounter (statuses as of 09/21/2024) Medications ASPIRIN 81 MG PO TABSIndications:C an [...] THE MORNING 90 Tablet 3 024 Active Amitriptyline HCl 10 MG Oral Tablet (Elavil) TAKE 2 TABLETS BY MOUTH AT BEDTIME 180 Tablet 2 024 Active Omeprazole 40 MG Oral Capsule [...] the morning. 90 Tablet 1 024 Active Sertraline HCl 100 MG Oral Tablet (Zoloft) Take 2 Tablets by mouth at bedtime. 180 Tablet 1 024 Active tiZANidine HCl 4 MG Oral Tablet (Zanaflex)Indicat ions:Cervical spinal stenosis TAKE 1 TABLET BY MOUTH EVERY 8 HOURS NEEDED FOR MUSCLE SPASMS 30 Tablet 5 024 Active Metoprolol Succinate ER 25 MG Oral Tablet Extended Release 24 Hour (toPROL XL)Indications:Co ronary artery disease involving [place] coronary artery of [place] heart with angina pectoris (HCC) TAKE 1/2 TABLET BY MOUTH DAILY 45 Tablet 3 024 Active Vitamin D3 50 MCG (1999 UT) Oral CapsuleIndication s:Vitamin D deficiency Take 1 Capsule by mouth in the morning. 30 Capsule 5 024 Active Nitroglycerin 0.4 MG Sublingual Tablet Sublingual (Nitrostat)Indica tions:Chest pain, unspecified type Take 1 tab sublingual as needed for chest pain 25 Tablet 1 024 Active Alendronate Sodium 70 MG Oral Tablet (Fosamax) Take 1 Tablet by mouth once a week. 2023 Discontinued(M edication List Clean Up) Albuterol Sulfate HFA 108 (90 Base) MCG/ACT Inhalation Aerosol SolutionIndicatio ns:COPD, moderate (HCC) INHALE 2 PUFFS BY MOUTH EVERY 4 HOURS NEEDED FOR WHEEZING OR SHORTNESS OF BREATH. 8 g 1 024 2023 Discontinued HYDROcodone-Aceta minophen 5-325 MG Oral TabletIndications :Generalized osteoarthrosis, involving multiple sites Take 1 Tablet by mouth every 6 hours as needed for Pain, Moderate or Pain, Severe. Max 2 per day 60 Tablet 024 2023 Discontinued(R efill) documented as of this encounter (statuses as of 09/21/2024) Active Problems Problem Noted Date Diagnosed Date [...] KATLYN-FRIDA Combination Inhaler Remote Patient Monitoring Vendor: [facility] Device(s): Connected Scale Self-Management plan High frequency [...] at night. Member can be directed to [facility] at [phone] M-F 8am-5pm Adjustment disorder with anxious mood [...] as of this encounter (statuses as of 09/21/2024) Resolved Problems Problem Noted Date Diagnosed Date Resolved Date Coronary artery disease invo lving rapp[place]ock coronary artery of [place] heart with angina pectoris 11/26/2023 09/10/2024 Assessment [...] Stress test scheduled for 12/22/23 History of HI (myocardial infarction) 04/25/2023 09/10/2024 [...] in the Comments) Remote Patient Monitoring Vendor: [facility] Device(s): Connected Scale Self - Management Plan Other/Additional Comments: restart lasix daily Exacerbation Plan Anticipated IV Lasix dose: 40 mg BMP Chest X-Ray Additional Comments: Euvolemic today. Nephrology 05/17/24--new pt-[id number]--kmdkh decline in renal function with lasix and [...] in the Comments) Remote Patient Monitoring Vendor: [facility] Device(s): Connected Scale Self - Management Plan [...] [facility]) MEDICATION USE AGREEMENT 12/11/201408/2017 Overview [...] as of this encounter (statuses as of 09/21/2024) Immunizations Name Administration Dates Next Due COVID-19 mRNA, LNP-s, No Pre serve, 2-Dose Series (Bubbli) 12/24/2021,05/21/2021,11/04/2020,10/14 COVID-19, MRNA-LNP, PF, 30 M CG/0.3 mL, 12 YRS AND ABOVE, IM ([facility]-Comirnaty) 06/07/2023 Covid-19, Mrna, Lnp-s, Pf, B ivalent, [...] Does the household have a [facility] source of income? (Household - for [...] 03/15/2023 2:09 PM EDT Josee Rene, RN * Do you have serious difficulty walking or climbing stairs? (5 years old or older) Answer Date of Assessment Author No 03/15/2023 2:09 PM EDJosee Florez, RN * Do you have difficulty dressing [...] encounter Miscellaneous Notes * Telephone Encounter - Bello Zepeda OSA - 06/24/2024 9:36 AM EST Pt is scheduled for 07/25/24 Thank you Xiomara. * Telephone Encounter - Xiomara Herr OSA - 06/21/2024 4:03 PM EDT Check-out Comments:Reschedule lexiscan before egd Unable to schedule, Please contact to schedule. Thank you! documented in this encounter Plan of Treatment Upcoming Encounters Date Type Department Care Team (Late st Contact Info) Description 09/27/2024 3:00 PM EST Office Visit Orthopaedics Spine Surgery [facility] [address] [phone] Wyatt Ly MD [address] [place] [address] 10/09/2024 11:45 AM EST Hospital Encounter ENDO [facility], Endoscopy Room [facility] [address] [place] [address] Riki Sanchez MD [address] [place] [address] 10/09/2024 11:45 AM EST - 10/09/2024 12:15 PM EST Surgery ENDO [facility], Endoscopy Room [facility] [address] [place] [phone] Riki Sanchez MD [address] [place] [address] COLONOSCOPY FLEXIBLE PROXIMAL DIAGNOSTIC 12/10/2024 1:00 PM EDT Office Visit Family Practice [facility] [address] [facility] [place] [address] Hannah Ospina MD [address] [place] [address] 12/20/2024 10:00 AM EDT Office Visit Cardiology, [facility] [address] [place] [address] Edward Oliver PA-C [address] [place] [address] 06/04/2025 9:40 AM EDT Office Visit Nephrology, [facility] [address] [place] [address] Ritchie Childress MD [address] [facility] [place] [address] 07/07/2025 11:30 AM EST Imaging Radiology [facility] [address] [place] [phone] 07/08/2025 11:00 AM EST Office Visit Rheumatology [facility] [address] [place] [phone] Yeyo Barrios MD [address] [place] [address] [place] [address] Scheduled Procedures Name Priority Associated Diagnoses Date/Ti [...] D LEVEL ONCE IN A LIFETIME-USE SMARTSET# 98620 Completed 05/17/2024, 03/07/2024, 07/05/2023, Additional history exists [...] this encounter Medical Devices Implanted Type Area Solvent Plant Operator Device Identifier Shelf Expiration Date Model / Serial / Lot Dbx 5cc [id number] - [id number] - [id number] Implanted:Qty : 1 on 01/20/2021 by Wyatt Ly MD at OR [facility] Tissue - Human N/A: Spine Cervical MUSCULOSKELETAL TRANSPLANT FND [id number] 08/22/2021 [id number] / [id number] / LOT NA Vitoss Bimodal Foam Pack 10cc - [id number] - [id number] Implanted:Qty : 1 on 01/20/2021 by Wyatt Ly MD at OR [facility] N/A: Spine Cervical PAULETTE : SPINE 12/16/2021 [id number] / [id number] / [id number] 4.5 X 20mm Cortical Fixation Screw Implanted:Qty : 1 on 01/20/2021 by Wyatt Ly MD at OR [facility] N/A: Spine Cervical [employer] 1020-45-220 / / 4.5 X 22mm Cortical Fixation Screw Implanted:Qty : 1 on 01/20/2021 by Wyatt Ly MD at OR [facility] N/A: Spine Cervical DE[employer] INC 1020-45-222 / / 3.5 X 12mm Screws Implanted:Qty : 8 on 01/20/2021 by Wyatt Ly MD at OR [facility] N/A: Spine Cervical DEPUY SP[employer] INC 1020-35-112 / / Set Screws Implanted:Qty : 10 on 01/20/2021 by Wyatt Ly MD at OR [facility] N/A: Spine Cervical DEPUY SPINE INC 1020-00-000 / / 60mm Rods Implanted:Qty : 2 on 01/20/2021 by Wyatt Ly MD at OR [facility] N/A: Spine Cervical DEPUY SPINE INC 1020-64-060 / / 1cm X 5cm Magnifuse Posterior Cervical Bone Graft (Formerly Osteotech) Implanted:Qty : 1 on 03/15/2023 by Wyatt Ly MD at OR [facility] N/A: Spine Lumbar Medtronic SoundCloudek [id number] 01/05/2025 [id number] / [id number] / LOT NA Catalyft Pl Expandable Interbody System, Interbody Cage Implanted:Qty : 2 on 03/15/2023 by Wyatt Ly MD at OR [facility] N/A: Spine Lumbar Medtronic 03/08/2030 [id number] / / [id number] 6.5 X 45 Screw Implanted:Qty : 2 on 03/15/2023 by Wyatt Ly MD at OR [facility] N/A: Spine Lumbar Medtronic [id number] / / Description:No Exp. Date, us ed out of set 6.5 X 40 Screw Implanted:Qty : 2 on 03/15/2023 by Wyatt Ly MD at OR [facility] N/A: Spine Lumbar Medtronic [id number] / / Description:No Expiration da te, used out of set 7.5 X 40 Screw Implanted:Qty : 2 on 03/15/2023 by Wyatt Ly MD at OR [facility] N/A: Spine Lumbar Medtronic [id number] / / Description:No Expiration Da te, used out of set Screw Bone Ti Set Solera 4.75m - [id number] Implanted:Qty : 6 on 03/15/2023 by Wyatt Ly MD at OR [facility] N/A: Spine Lumbar MEDTRONIC [facility] [id number] / / Description:No Expiration Da te, used out of set Anthony [place] 4.75mm Pbent 55mm - [id number] Implanted:Qty : 2 on 03/15/2023 by Wyatt Ly MD at OR [facility] N/A: Spine Lumbar MEDTRONIC : NEUROLOGIC PAIN [id number] / / 10cc Mastergraft Biologic Matrix Ext Block Implanted:Qty : 1 on 03/15/2023 by Wyatt Ly MD at OR [facility] N/A: Spine Lumbar Medtronic Sofamor Danek [id number] 11/18/2025 [id number] / [id number] / [id number] Dbx 2.5cc 073269 - [id number] - [id number] Implanted:Qty : 1 on 03/15/2023 by Wyatt Ly MD at OR [facility] N/A: Spine Lumbar MUSCULOSKELETAL TRANSPLANT FND [id number] 08/04/2024 423785 / [id number] / LOT NA Dbx 2.5cc 202533 - [id number] - [id number] Implanted:Qty : 1 on 03/15/2023 by Wyatt Ly MD at OR [facility] N/A: Spine Lumbar MUSCULOSKELETAL TRANSPLANT FND [id number] 10/04/2024 442523 / [id number] / LOT NA Graft Bone Infuse Kit Xsmall - [id number] - [id number] Implanted:Qty : 1 on 03/15/2023 by Wyatt Ly MD at OR [facility] N/A: Spine Lumbar MEDTRONIC : NEUROLOGIC PAIN [id number] 07/20/2024 [id number] / [id number] / [id number] documented as of this encounter Advance Directives [...] Directives occurred with: Not Discussed Care Teams Regrind Mill Operator Relationship Specialty Start Date End Date Hannah Ospina MD [address] [place] [address] PCP - General Family Medicine 04/11/24 documented as of this encounter
--- OUTSIDE RECORDS SUMMARY | 2024-12-27 20:18 | External Medical Summary ---
Author Name Unknown Address Unknown Organization K09:[facility] [place] [address] Laboratory Report Ordering Provider Test Date Status KEVON BARTLETT 09/10/2024 13:50:06 Final Observation Date Value Abnormality Reference (Units ) Status Color of Urine by Auto 09/10/2024 13:50:06 Yellow Light Yellow, Yellow, Dark Yellow Final Clarity, Urine 09/10/2024 13:50:06 Clear Clear Final Glucose [Mass/volume] in Urine by Automated test strip 09/10/2024 13:50:06 Negative Negative (mg/dL) Final Bilirubin.total [Presence] in Urine by Automated test strip 09/10/2024 13:50:06 Negative Negative Final Ketones [Mass/volume] in Urine by Automated test strip 09/10/2024 13:50:06 Trace Abnormal Negative (mg/dL) Final Specific gravity, Urine 09/10/2024 13:50:06 1.020 1.003-1.030 Final Hemoglobin [Presence] in Urine by Automated test strip 09/10/2024 13:50:06 Trace Abnormal Negative Final pH, Urine 09/10/2024 13:50:06 5.5 5.0-7.5 (Units) Final Protein [Mass/volume] in Urine by Automated test strip 09/10/2024 13:50:06 Negative Negative (mg/dL) Final Urobilinogen [Mass/volume] in Urine by Automated test strip 09/10/2024 13:50:06 0.2 0.2, 1.0 (mg/dL) Final Nitrite [Presence] in Urine by Automated test strip 09/10/2024 13:50:06 Negative Negative Final Leukocyte esterase [Presence] in Urine by Automated test strip 09/10/2024 13:50:06 Negative Negative Final Performing Location [facility] [place] [address]
--- OUTSIDE RECORDS SUMMARY | 2024-12-27 20:18 | External Medical Summary | Summary of Care ---
Author Name Unknown Organization [facility] Address [address] [place] [address] Phone [phone] Care Team Providers Care Design Center Consultant Name Role Phone Hannah Ospina MD Primary Care Provider [phone] Reason for Visit * Reason Onset Date Comments Test Results 08/01/2024 Encounter Details Date Type Department Care Team (Late st Contact Info) Description 08/01/2024 Telephone Family Practice [facility] [address] [facility] [place] [address] Cedric Downey III, MD 200 [place] [address] Test Results Allergies Active Allergy Reactions Criticality Noted Date Comments Varenicline 12/11/2014 nausea Corticosteroids Other (Please comment) Medium 12/27/2013 Hyper, Mental Status Changes on oral steroids Dm-Apap-Cpm Anaphylaxis,Other (Please comment) High 12/27/2013 Contact dermatitis Ibuprofen Other (Please comment) Low 12/27/2013 Affects acid reflux Iodinated Contrast Media Hives 10/08/2007 Penicillins 10/09/2007 Rash documented as of this encounter (statuses as of 09/16/2024) Medications ASPIRIN 81 MG PO TABSIndications:C an [...] Hour (toPROL XL)Indications: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 11/01/2 024 Active Furosemide 40 MG Oral Tablet (Lasix) Take 1 Tablet by mouth once a day on Monday and Monday only. Active Albuterol Sulfate HFA 108 (90 Base) MCG/ACT Inhalation Aerosol SolutionIndicatio ns:COPD, moderate (HCC) INHALE 2 PUFFS BY MOUTH EVERY 4 HOURS NEEDED FOR WHEEZING OR SHORTNESS OF BREATH. 8 g 1 2023 Discontinued HYDROcodone-Aceta minophen 5-325 MG Oral TabletIndications :Generalized osteoarthrosis, involving multiple sites Take 1 Tablet by mouth every 6 hours as needed for Pain, Moderate or Pain, Severe. Max 2 per day 60 Tablet 2024 Discontinued(R efill) documented as of this encounter (statuses as of 09/16/2024) Active Problems Problem Noted Date Diagnosed Date [...] directed to [facility] at [phone] M-F 8am-5pm Adjustment disorder with anxious mood [...] as of this encounter (statuses as of 09/16/2024) Resolved Problems Problem Noted Date Diagnosed Date Resolved Date Coronary artery disease invo lving elem coronary artery of elem heart with angina pectoris 11/26/2023 09/10/2024 Assessment [...] Stress test scheduled for 12/22/23 History of [place] (myocardial infarction) 04/25/2023 09/10/2024 Syncope 04/25/2023 01/22/2024 [...] in the Comments) Remote Patient Monitoring Vendor: [facility] Device(s): Connected Scale Self - Management Plan Other/Additional Comments: restart lasix daily Exacerbation Plan Anticipated IV Lasix dose: 40 mg BMP Chest X-Ray Additional Comments: Euvolemic today. Nephrology 05/17/24--new pt-[id number]--dckqo decline in renal function with lasix and [...] in the Comments) Remote Patient Monitoring Vendor: [facility] Device(s): Connected Scale Self - Management Plan [...] non-displaced fx right #2,3,4,5 ([facility] MEDICATION USE AGREEMENT 12/11/201408/2017 Overview (04/05/2016): Started [...] as of this encounter (statuses as of 09/16/2024) Immunizations Name Administration Dates Next Due COVID-19 mRNA, LNP-s, No Pre serve, 2-Dose Series ([employer]ie [employer])) 12/24/2021,05/21/2021,11/04/2020,10/14 COVID-19, MRNA-LNP, PF, 30 M CG/0.3 [...] No 05/01/2024 Does the household have a [facility] source [facility] income? (Household - for [...] Assessment Author No 03/15/2023 2:09 PM EDJosee Florez RN documented as of this encounter Mental Status * Because of a physical, mental, or emotional condition, do you have serious difficulty concentrating, remembering, or making decisions? (5 years old or older) Answer Entry Date Author No 03/15/2023 2:09 PM EDJosee Florez RN documented in this encounter Miscellaneous Notes * Telephone Encounter - Kathleen Morales RN - 08/06/2024 11:17 AM EST Letter printed. * Telephone Encounter - Belle Sosa RN - 08/01/2024 12:37 PM EST Attempted to call patient, no answer, no VM set up. * Telephone Encounter - Belle Sosa RN - 08/01/2024 12:31 PM EST ----- Message from Cedric Downey MD sent at 07/31/2024 11:13 AM EST ----- Call please myocardial perfusion scan is negative no evidence of inducible ischemia how doing documented in this encounter Plan of Treatment Upcoming Encounters Date Type Department Care Team (Late st Contact Info) Description 09/27/2024 3:00 PM EST Office Visit Orthopaedics Spine Surgery [facility] [address] [place] [address] Wyatt Ly MD [address] [place] [address] 10/09/2024 11:45 AM EST Hospital Encounter ENDO [facility], Endoscopy Room [facility] [address] [place] [phone] Riki Sanchez MD [address] [place] [address] 10/09/2024 11:45 AM EST - 10/09/2024 12:15 PM EST Surgery ENDO [facility], Endoscopy Room [facility] [address] [place] [phone] Riki Sanchez MD [address] [place] [address] COLONOSCOPY FLEXIBLE PROXIMAL DIAGNOSTIC 12/10/2024 1:00 PM EDT Office Visit Family Practice [facility] [address] [place] [address] Hannah Ospina MD [address] [place] [address] 12/20/2024 10:00 AM EDT Office Visit Cardiology, [facility] [address] [place] [address] Edward Oliver PA-C [address] [place] [address] 06/04/2025 9:40 AM EDT Office Visit Nephrology, [facility] [address] [place] [address] Ritchie Childress MD [address] [place] [address] 07/07/2025 11:30 AM EST Imaging Radiology [facility] [address] [place] [address] 07/08/2025 11:00 AM EST Office Visit Rheumatology [facility] [address] [place] [address] Yeyo Barrios MD [address] [place] [address] Scheduled Procedures Name Priority Associated Diagnoses Date/Ti [...] D LEVEL ONCE IN A LIFETIME-USE SMARTSET# 70671 Completed 05/17/2024, 03/07/2024, 07/05/2023, Additional history exists [...] this encounter Medical Devices Implanted Type Area Cell Reliner Device Identifier Shelf Expiration Date Model / Serial / Lot Dbx 5cc [id number] - [id number] - [id number] Implanted:Qty : 1 on 01/20/2021 by Wyatt Ly MD at OR [facility] Tissue - Human N/A: Spine Cervical MUSCULOSKELETAL TRANSPLANT FND [id number] 08/22/2021 088325 / [id number] / LOT NA Vitoss Bimodal Foam Pack cc - [id number] - [id number] Implanted:Qty : 1 on 01/20/2021 by Wyatt Ly MD at OR [facility] N/A: Spine Cervical PAULETTE : SPINE 12/16/202121012374-2247 / [id number] / [id number] 4.5 X 20mm Cortical Fixation Screw Implanted:Qty : 1 on 01/20/2021 by Wyatt Ly MD at OR [facility] N/A: Spine Cervical [employer] INC 1020-45-220 / / 4.5 X 22mm Cortical Fixation Screw Implanted:Qty : 1 on 01/20/2021 by Wyatt Ly MD at OR [facility] N/A: Spine Cervical DEPU[employer] INC 1020-45-222 / / 3.5 X 12mm Screws Implanted:Qty : 8 on 01/20/2021 by Wyatt Ly MD at OR [facility] N/A: Spine Cervical DEPU[employer] INC 1020-35-112 / / Set Screws Implanted:Qty : 10 on 01/20/2021 by Wyatt Ly MD at OR [facility] N/A: Spine Cervical DEPUY SPINE INC 1020-00-000 / / 60mm Rods Implanted:Qty : 2 on 01/20/2021 by Wyatt Ly MD at OR [facility] N/A: Spine Cervical DEPUY SPINE INC 1020-64-060 / / 1cm X 5cm Magnifuse Posterior Cervical Bone Graft (Formerly Osteotech) Implanted:Qty : 1 on 03/15/2023 by Wyatt Ly MD at OR [facility] N/A: Spine Lumbar Medtronic Sofamor Danek [id number] 01/05/2025 [id number] / [id number] / LOT NA Catalyft Pl Expandable Interbody System, Interbody Cage Implanted:Qty : 2 on 03/15/2023 by Wyatt Ly MD at OR [facility] N/A: Spine Lumbar Medtronic 03/08/2030 [id number] / / [id number] 6.5 X 45 Screw Implanted:Qty : 2 on 03/15/2023 by Wyatt Ly MD at OR [facility] N/A: Spine Lumbar Medtronic [id number] / / Description:No Exp. Date, us ed out of set 6.5 X 40 Screw Implanted:Qty : 2 on 03/15/2023 by Wyatt Ly MD at OR [facility] N/A: Spine Lumbar Medtronic [id number] / / Description:No Expiration da te, used out of set 7.5 X 40 Screw Implanted:Qty : 2 on 03/15/2023 by Wyatt Ly MD at OR [facility] N/A: Spine Lumbar Medtronic [id number] / / Description:No Expiration Da te, used out of set Screw Bone Ti Set Solera 4.75m - [id number] Implanted:Qty : 6 on 03/15/2023 by Wyatt Ly MD at OR [facility] N/A: Spine Lumbar MEDTRONIC [employer] [id number] / / Description:No Expiration Da te, used out of set Anthony [place] 4.75mm Pbent 55mm - [id number] Implanted:Qty : 2 on 03/15/2023 by Wyatt Ly MD at OR [facility] N/A: Spine Lumbar MEDTRONIC : NEUROLOGIC PAIN [id number] / / 10cc Mastergraft Biologic Matrix Ext Block Implanted:Qty : 1 on 03/15/2023 by Wyatt Ly MD at OR [facility] N/A: Spine Lumbar Medtronic Sofamor Danek [id number] 11/18/2025 [id number] / [id number] Dbx 2.5cc 332281 - [id number] - [id number] Implanted:Qty : 1 on 03/15/2023 by Wyatt Ly MD at OR [facility] N/A: Spine Lumbar MUSCULOSKELETAL TRANSPLANT FND [id number] 08/04/2024 169922 / [id number] / LOT NA Dbx 2.5cc 671241 - [id number] - [id number] Implanted:Qty : 1 on 03/15/2023 by Wyatt Ly MD at OR [facility] N/A: Spine Lumbar MUSCULOSKELETAL TRANSPLANT FND [id number] 10/04/2024 094752 / [id number] / LOT NA Graft Bone Infuse Kit Xsmall - [id number] - [id number] Implanted:Qty : 1 on 03/15/2023 by Wyatt Ly MD at OR [facility] N/A: Spine Lumbar MEDTRONIC : NEUROLOGIC PAIN [id number] 07/20/2024 [id number] / [id number] / [id number] documented as of this encounter Advance Directives [...] Directives occurred with: Not Discussed Care Teams Design Center Consultant Relationship Specialty Start Date End Date Hannah Ospina MD [address] [place], [place] [address] PCP - General Family Medicine 04/11/24 documented as of this encounter
--- OUTSIDE RECORDS SUMMARY | 2024-12-27 20:18 | External Medical Summary | Summary of Care ---
Author Name Unknown Organization [facility] Address [address] [place] [address] Phone [phone] Care Team Providers Care Transport Medic Name Role Phone Hannah Ospina MD Primary Care Provider [phone] Reason for Visit * Reason Comments Outpatient Testing Encounter Details Date Type Department Care Team (Late st Contact Info) Description 09/10/2024 1:50 PM EST Laboratory Laboratory [facility] [address] [place] [address] [facility] Hypertension goal BP (blood pressure) < 140/90; Stage 3b chronic kidney disease (CKD) ([facility]); History of kidney stones; Right flank pain [...] Hour (toPROL XL)Indications:Cor onary artery disease involving [place] coronary artery of [place] heart with angina pectoris (HCC) TAKE 1/2 [...] Combination Inhaler Remote Patient Monitoring Vendor: [facility] Device(s): Connected Scale Self-Management plan High frequency [...] at night. Member can be directed to [facility] at [phone] M-F 8am-5pm Adjustment disorder with anxious mood 11/26/2023 Migraine without status migrainosus, not intract able 04/25/2023 Assessment & Plan (08/01/2023 6:26 PM EST): Not needed Emgality for several months Major depressive disorder, r ecurrent episode, in partial remission 04/25/2023 Assessment & Plan (08/01/2023 6:56 PM EST): Continue with zoloft History of MA (myocardial infarction) 04/25/2023 Lumbar spinal stenosis 03/15/2023 [...] Resolved Date Coronary artery disease invo lving [place] coronary artery of [place] heart with angina pectoris 11/26/2023 09/10/2024 Assessment [...] in the Comments) Remote Patient Monitoring Vendor: [facility] Device(s): Connected Scale Self - Management Plan Other/Additional Comments: restart lasix daily Exacerbation Plan Anticipated IV Lasix dose: 40 mg BMP Chest X-Ray Additional Comments: Euvolemic today. Nephrology 05/17/24--new pt-VND1d--suuqz decline in renal function with lasix and [...] in the Comments) Remote Patient Monitoring Vendor: [facility] Device(s): Connected Scale Self - Management Plan [...] Having left sciatic sx's - followed by [facility] documented as of this encounter (statuses as of 09/10/2024) Immunizations Name Administration Dates Next Due COVID-19 mRNA, LNP-s, No Pre serve, 2-Dose Series ([employer]be[employer]) 12/24/2021,05/21/2021,11/04/2020,10/14 COVID-19, MRNA-LNP, PF, 30 M CG/0.3 mL, 12 YRS AND ABOVE, IM ([employer]) 06/07/2023 Covid-19, Mrna, Lnp-s, Pf, B ivalent, [...] 09/10/2024 2:30 PM EST Office Visit Ophthalmology, [facility] [address] [place] [address] Cas Santos DO [address] [place] [address] 09/11/2024 1:40 PM EST Telemedicine [facility] [address] [place] [address] Nati Broderick CRNP [address] [place] [address] Jeanie Ruiz, [facility] Specialist [address] [place] [address] 09/13/2024 10:00 AM EST Imaging [facility] [address] [place] [phone] 09/13/2024 1:15 PM EST Office Visit Orthopaedics Spine Surgery [facility] [address] [place] [phone] Wyatt yL MD [address] [place] [address] [place] [address] 10/09/2024 11:45 AM EST Hospital Encounter ENDO [facility], Endoscopy Room [facility] [address] [place] [phone] Riki Sanchez MD [address] [place] [address] 10/09/2024 11:45 AM EST - 10/09/2024 12:15 PM EST Surgery ENDO [facility], Endoscopy Room [facility] [address] [place] [phone] Riki Sanchez MD [address] [place] [address] COLONOSCOPY FLEXIBLE PROXIMAL DIAGNOSTIC 12/10/2024 1:00 PM EDT Office Visit Family Practice [facility] [address] [facility] [place] [address] Hannah Ospina MD [address] [facility] [place] [address] 12/20/2024 10:00 AM EDT Office Visit Cardiology, [facility] [address] [place] [address] Edward Oliver PACherise [address] [place] [address] 06/04/2025 9:40 AM EDT Office Visit Nephrology, [facility] [address] [place] [address] Ritchie Childress MD [address] [facility] [place] [address] 07/07/2025 11:30 AM EST Imaging Radiology [facility] [address] [place] [phone] 07/08/2025 11:00 AM EST Office Visit Rheumatology [facility] [address] [place] [phone] Yeyo Barrios MD [address] [place] [address] [place] [address] Pending Results Name Type Priority Associated Diagnoses Date /Time BASIC METABOLIC PANEL Lab Routine Hypertension goal BP (blood pressure) < 140/90 Stage 3b chronic kidney disease (CKD) (HCC) 09/10/2024 1:46 PM EST URINALYSIS, REFLEX TO MICROSCOPIC Lab Routine History of kidney stones Right flank pain 09/10/2024 1:50 PM EST MICROSCOPIC EXAM, URINE Lab Routine History of kidney stones Right [...] D LEVEL ONCE IN A LIFETIME-USE SMARTSET# [id number] Completed 05/17/2024, 03/07/2024, 07/05/2023, Additional history exists [...] this encounter Medical Devices Implanted Type Area Review Assistant Device Identifier Shelf Expiration Date Model / Serial / Lot Dbx 5cc [id number] - [id number] - [id number] Implanted:Qty : 1 on 01/20/2021 by Wyatt Ly MD at [facility] Tissue - Human N/A: Spine Cervical MUSCULOSKELETAL TRANSPLANT FND [id number] 08/22/2021 [id number] / [id number] / LOT NA Vitoss Bimodal Foam Pack 10cc - [id number] - [id number] Implanted:Qty : 1 on 01/20/2021 by Wyatt Ly MD at [facility] N/A: Spine Cervical PAULETTE : SPINE 12/16/[id number] / [id number] / [id number] 4.5 X 20mm Cortical Fixation Screw Implanted:Qty : 1 on 01/20/2021 by Wyatt Ly MD at [facility] N/A: Spine Cervical [employer] 1020-45-220 / / 4.5 X 22mm Cortical Fixation Screw Implanted:Qty : 1 on 01/20/2021 by Wyatt Ly MD at [facility] N/A: Spine Cervical [employer] 1020-45-222 / / 3.5 X 12mm Screws Implanted:Qty : 8 on 01/20/2021 by Wyatt Ly MD at [facility] N/A: Spine Cervical [employer] 1020-35-112 / / Set Screws Implanted:Qty : 10 on 01/20/2021 by Wyatt Ly MD at [facility] N/A: Spine Cervical [employer] 1020-00-000 / / 60mm Rods Implanted:Qty : 2 on 01/20/2021 by Wyatt Ly MD at [facility] N/A: Spine Cervical [employer] 1020-64-060 / / 1cm X 5cm Magnifuse Posterior Cervical Bone Graft (Formerly [employer]) Implanted:Qty : 1 on 03/15/2023 by Wyatt Ly MD at [facility] N/A: Spine Lumbar Medtronic Sofamor Dane[employer] [id number] 01/05/2025 [id number] / [id number] / LOT NA [address] Expandable Interbody System, Interbody Cage Implanted:Qty : 2 on 03/15/2023 by Wyatt Ly MD at [facility] N/A: Spine Lumbar Medtronic 03/08/2030 [id number] / / [id number] 6.5 X 45 Screw Implanted:Qty : 2 on 03/15/2023 by Wyatt Ly MD at [facility] N/A: Spine Lumbar Medtronic [id number] / / Description:No Exp. Date, us ed out of set 6.5 X 40 Screw Implanted:Qty : 2 on 03/15/2023 by Wyatt Ly MD at [facility] N/A: Spine Lumbar Medtronic [id number] / / Description:No Expiration da te, used out of set 7.5 X 40 Screw Implanted:Qty : 2 on 03/15/2023 by Wyatt Ly MD at [facility] N/A: Spine Lumbar Medtronic [id number] / / Description:No Expiration Da te, used out of set Screw Bone Ti Set Solera 4.75m - [id number] Implanted:Qty : 6 on 03/15/2023 by Wyatt Ly MD at [facility] N/A: Spine Lumbar [employer] [id number] / / Description:No Expiration Da te, used out of set Anthony Pool 4.75mm Pbent 55mm - [id number] Implanted:Qty : 2 on 03/15/2023 by Wyatt Ly MD at [facility] N/A: Spine Lumbar [employer] : NEUROLOGIC PAIN [id number] / / 10cc Mastergraft Biologic Matrix Ext Block Implanted:Qty : 1 on 03/15/2023 by Wyatt Ly MD at [facility] N/A: Spine Lumbar Medtronic Sofamor Danek [id number] 11/18/2025 [id number] / [id number] / [id number] Dbx 2.5cc [id number] - [id number] - [id number] Implanted:Qty : 1 on 03/15/2023 by Wyatt Ly MD at [facility] N/A: Spine Lumbar MUSCULOSKELETAL TRANSPLANT FND [id number] 08/04/2024 391636 / [id number] / LOT NA Dbx 2.5cc 655583 - [id number] - [id number] Implanted:Qty : 1 on 03/15/2023 by Wyatt Ly MD at [facility] N/A: Spine Lumbar MUSCULOSKELETAL TRANSPLANT FND [id number] 10/04/2024 035045 / [id number] / LOT NA Graft Bone Infuse Kit Xsmall - [id number] - [id number] Implanted:Qty : 1 on 03/15/2023 by Wyatt Ly MD at [facility] N/A: Spine Lumbar [employer] : NEUROLOGIC PAIN [id number] 07/20/2024 [id number] / [id number] / [id number] documented as of this encounter Visit Diagnoses [...] in partial or unspecified remission History of MA (myocardial infarction) Old myocardial infarction COPD, group B, by GOLD 2017 classification ([facility]) Hypomagnesemia Disorders of magnesium metabolism Hypertensive heart and kidney disease without heart failure and with stage 3a chronic kidney disease (HCC)- Primary Migraine without status migrainosus, not intractable, unspecified migraine type COPD, group B, by GOLD 2017 classification ([facility]) History of MA (myocardial infarction) Old myocardial infarction Major depressive [...] kidney disease (HCC) Coronary artery disease involving [place] coronary artery of [place] heart with angina pectoris (HCC) COPD (chronic obstructive pulmonary disease) with chronic bronchitis (HCC) Obstructive chronic bronchitis without exacerbation Hypertensive heart and kidney disease with chronic diastolic congestive heart failure and stage 3a chronic kidney disease (HCC)- Primary Chest pain, unspecified type Coronary artery disease involving [place] coronary artery of [place] heart with angina pectoris (HCC) Dysphagia, unspecified [...] Directives occurred with: Not Discussed Care Teams Transport Medic Relationship Specialty Start Date End Date Hannah Ospina MD [address] [place] [address] PCP - General Family Medicine 04/11/24 documented as of this encounter
--- OUTSIDE RECORDS SUMMARY | 2024-12-27 20:18 | External Medical Summary ---
Author Name Unknown Address Unknown Organization K09[facility] [place] [address] Laboratory Report Ordering Provider Test Date Status KEVON BARTLETT 09/10/2024 13:46:33 Final Observation Date Value Abnormality Reference (Units ) Status BUN 09/10/2024 13:46:33 30 Above high normal 6-20 (mg/dL) Final Creatinine 09/10/2024 13:46:33 1.2 Above high normal 0.5-1.0 (mg/dL) Final Glomerular filtration rate/1.73 sq M.predicted [Volume Rate/Area] in Serum, Plasma or Blood by Creatinine-based formula (CKD-EPI) 09/10/2024 13:46:33 48 Below low normal >=60 (mL/min) Final eGFR is calculated based on the CKD-EPI 2020 equation. Sodium 09/10/2024 13:46:33 142 135-146 (m mol/L) Final Potassium 09/10/2024 13:46:33 4.8 3.5-5.1 (m mol/L) Final Cl 09/10/2024 13:46:33 103 98-107 (mm ol/L) Final CO2 09/10/2024 13:46:33 28 22-32 (mmo l/L) Final Anion gap 09/10/2024 13:46:33 11 7-15 (mmol /L) Final Glucose 09/10/2024 13:46:33 80 70-120 (mg /dL) Final Calcium 09/10/2024 13:46:33 9.9 8.4-10.2 ( mg/dL) Final Performing Location [facility] [place] [address]
--- OUTSIDE RECORDS SUMMARY | 2024-12-27 20:18 | External Medical Summary ---
Author Name Unknown Address Unknown Organization [facility] [place] [address] Laboratory Report Ordering Provider Test Date Status KEVON BARTLETT 09/10/2024 13:50:06 Final Observation Date Value Abnormality Reference (Units ) Status RBC, Urine 09/10/2024 13:50:06 3-5 Abnormal 0-2 (/HPF) Final WBC, Urine 09/10/2024 13:50:06 0-2 0-2 (/HPF) Final Bacteria [#/area] in Urine sediment by Microscopy high power field 09/10/2024 13:50:06 26-50 Abnormal 0-25 (/HPF) Final Epithelial cells.squamous [#/area] in Urine sediment by Microscopy high power field 09/10/2024 13:50:06 Many Abnormal None (/HPF) Final Performing Location [facility] [place] [address]
--- OUTSIDE RECORDS SUMMARY | 2024-12-27 20:18 | External Medical Summary | Summary of Care ---
Author Name Unknown Organization [facility] Address [address] [place] [address] Phone [phone] Care Team Providers Care Personal Trainer Name Role Phone Hannah Ospina MD Primary Care Provider [phone] Reason for Visit * Reason Comments Follow Up * Evaluate & Treat - Unlimited Visits (Within 10 days (routine)) - Authorized Specialty Diagnoses / Procedures Referred By Calos huggins Referred To Contact Ophthalmology Diagnoses Vision changes Hortensia Gonzalez PA-C Referral ID Status Reason Start Date Expiration Date Visits Requested Visits Authorized [id number] Authorized Specialty Services Required 06/24/[phone] Encounter Details Date Type Department Care Team (Late st Contact Info) Description 09/10/2024 2:30 PM EST Office Visit Ophthalmology, [facility] [address] [facility] [place] [address] Cas Santos DO [address] 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 Member can be directed to [facility] at [phone] M-F 8am-5pm Adjustment disorder with anxious mood 11/26/2023 Migraine without status migrainosus, not intract able 04/25/2023 Assessment & Plan (08/01/2023 6:26 PM EST): Not needed Emgality for several months Major depressive disorder, r ecurrent episode, in partial remission 04/25/2023 Assessment & Plan (08/01/2023 6:56 PM EST): Continue with zoloft History of ND (myocardial infarction) 04/25/2023 Lumbar spinal stenosis 03/15/2023 [...] Resolved Date Coronary artery disease invo lving tyonek coronary artery of tyonek heart with angina pectoris 11/26/2023 09/10/2024 Assessment [...] asa and isosorbide. Stress test scheduled for 5/3/24 Syncope 04/25/2023 01/22/2024 Assessment & Plan (04/25/2023 [...] in the Comments) Remote Patient Monitoring Vendor: [facility] Device(s): Connected Scale Self - Management Plan Other/Additional Comments: restart lasix daily Exacerbation Plan Anticipated IV Lasix dose: 40 mg BMP Chest X-Ray Additional Comments: Euvolemic today. Nephrology 05/17/24--new pt-ISC3k--dcprp decline in renal function with lasix and [...] in the Comments) Remote Patient Monitoring Vendor: [facility] Device(s): Connected Scale Self - Management Plan [...] non-displaced fx right #2,3,4,5 (CT done at [facility]) MEDICATION USE AGREEMENT 12/11/201408/2017 Overview [...] mRNA, LNP-s, No Pre serve, 2-Dose Series ([employer]) 12/24/2021,05/21/2021,11/04/2020,10/14 COVID-19, MRNA-LNP, PF, 30 M CG/0.3 [...] No 05/01/2024 Does the household have a [facility] source of income? (Household - for ages [...] 2:09 PM EDT Josee Rene, RN * Because of a physical, mental, [...] documented in this encounter Progress Notes * Cas Santos DO - 09/10/2024 2:30 PM EST [facility] [place] Nursing Notes: Jennyfer Panda, RN 09/10/24 1432 Signed Sandy Fan is a 74 year old year old female who presents for PVD. Last Office Visit: 12/29/2023 (in office), Visit date not found (telemedicine) Patient currently states "worse; can not make out who person is coming around corner until gets closer- csn not make out their face and just sitting here things look fuzzy Are you diabetic? No Do you drive? yes OCT image(s) of both eyes acquired and filed/scanned into chart. Base Eye Exam Visual Acuity (Snellen - Linear) Right Left Dist sc 20/40 -1 20/60 -2 Dist ph sc 20/25 Tonometry (Tonopen, 2:30 PM) Right Left Pressure 18 15 Pupils Pupils APD Right PERRL None Left PERRL None Visual John (Counting fingers) Right Left Full Full Extraocular Movement Right Left Full, Ortho Full, Ortho Neuro/Psych Oriented x3: Yes Mood/Affect: Normal Dilation Both eyes: 0.5% Proparacaine @ 2:30 PM Dilation #2 Both eyes: 1.0% Mydriacyl, 2.5% Phenylephrine @ 2:30 PM Dilation #3 Both eyes: 1.0% Mydriacyl, 2.5% Phenylephrine @ 2:32 PM Dilation Comments Patient cautioned that effects of dilation may last 2-7 hours dependant upon individual reaction. It was discussed that driving while dilated is not recommended. EXTERNAL: The ocular adnexae are unremarkable. SLE: Lids/Lashes: wnl OU Conjunctiva/Sclera: quiet OU Cornea: clear OU Anterior Chamber: deep and quiet OU Iris: normal OU; no NVI OU Lens: PCIOL OU; yag cap OU Dilated fundus exam OD: vitreous: clear optic nerve: 0.25, no edema/pallor/NVD macula: wnl vessels: wnl periphery: wnl, no RT/RD Dilated fundus exam OS: vitreous: pvd optic nerve: 0.25, no edema/pallor/NVD macula: wnl vessels: wnl periphery: wnl, no RT/RD EXTENDED OPHTHALMOSCOPY performed w/ scleral depression and 20D lens-see retinal drawing in EPIC OCT Interpretation: OD: myopic, no irf/srf, no pvd OS: myopic, no irf/srf, +pvd A/P: 1. Posterior Vitreous Detachment OS -no RT/RD -advised to return to clinic if she should experience worsening or new floaters, flashes of light, a shadow in the periphery, or decrease in vision. 2. Pseudophakia OU -stable, Dr. Carlin 3. Dry eyes OU -recommend OTC preservative-free artificial tears 4-6/day and prn. F/u w/ retina prn; needs refraction/routine eye care w/ HFT Cas Santos DO CC: PCP: Cedric Downey III, MD documented in this encounter Nursing Notes * Jennyfer Panda RN - 09/10/2024 2:24 PM EST Sandy Fan is a 74 year old year old female who presents for PVD. Last Office Visit: 12/29/2023 (in office), Visit date not found (telemedicine) Patient currently states "worse; can not make out who person is coming around corner until gets closer- csn not make out their face and just sitting here things look fuzzy Are you diabetic? No Do you drive? yes OCT image(s) of both eyes acquired and filed/scanned into chart. documented in this encounter Plan of Treatment Upcoming Encounters Date Type Department Care Team (Late st Contact Info) Description 09/11/2024 1:40 PM EST Telemedicine [facility] [address] [place] [address] Nati Broderick CRNP [address] [place] [address] Jeanie Ruiz, Community Health Return Clerk [address] [place] [address] 09/13/2024 10:00 AM EST Imaging Radiology [facility] [address] [place] [address] 09/13/2024 1:15 PM EST Office Visit Orthopaedics Spine Surgery [facility] [address] [place] [phone] Wyatt Ly MD [address] [place] [address] 10/09/2024 11:45 AM EST Hospital Encounter ENDO [facility], Endoscopy Room [facility] [address] [place] [phone] Riki Sanchez MD [address] [place] [address] 10/09/2024 11:45 AM EST - 10/09/2024 12:15 PM EST Surgery ENDO [facility], Endoscopy Room [facility] [address] [place] [id number] Riki Sanchez MD [address] [place] [address] COLONOSCOPY FLEXIBLE PROXIMAL DIAGNOSTIC 12/10/2024 1:00 PM EDT Office Visit Family Practice [facility] [address] [facility] [place] [address] Hannah Ospina MD [address] [facility] [place] [address] 12/20/2024 10:00 AM EDT Office Visit Cardiology, [facility] [address] [place] [address] Edward Oliver PA-C [address] [place] [address] 06/04/2025 9:40 AM EDT Office Visit Nephrology, [facility] [address] [place] [address] Ritchie Childress MD [address] [facility] [place] [address] 07/07/2025 11:30 AM EST Imaging Radiology [facility] [address] [place] [address] 07/08/2025 11:00 AM EST Office Visit Rheumatology [facility] [place] [address] [place] [address] Yeyo Barrios MD [address] [place] [address] Scheduled Orders Name Type Priority Associated Diagnoses Orde r Schedule RETINA SCAN DIAGNOSTIC IMAGE, POSTERIOR Procedures Routine PVD (posterior vitreous detachment), left Ordered: 09/10/2024 Scheduled Procedures Name Priority Associated Diagnoses Date/Ti [...] D LEVEL ONCE IN A LIFETIME-USE SMARTSET# 84158 Completed 05/17/2024, 03/07/2024, 07/05/2023, Additional history exists [...] this encounter Medical Devices Implanted Type Area Painter Supervisor Device Identifier Shelf Expiration Date Model / Serial / Lot Dbx 5cc [id number] - [id number] - [id number] Implanted:Qty : 1 on 01/20/2021 by Wyatt Ly MD at [facility] Tissue - Human N/A: Spine Cervical MUSCULOSKELETAL TRANSPLANT FND [id number] 08/22/2021 [id number] / [id number] / LOT NA Vitoss Bimodal Foam Pack 10cc - [id number] - [id number] Implanted:Qty : 1 on 01/20/2021 by Wyatt Ly MD at OR [facility] N/A: Spine Cervical PAULETTE : SPINE 12/16/2021 [id number] / [id number] / [id number] 4.5 X 20mm Cortical Fixation Screw Implanted:Qty : 1 on 01/20/2021 by Wyatt Ly MD at OR [facility] N/A: Spine Cervical [employer] 1020-45-220 / / 4.5 X 22mm Cortical Fixation Screw Implanted:Qty : 1 on 01/20/2021 by Wyatt Ly MD at OR [facility] N/A: Spine Cervical [employer] 1020-45-222 / / 3.5 X 12mm Screws Implanted:Qty : 8 on 01/20/2021 by Wyatt Ly MD at OR [facility] N/A: Spine Cervical [employer] 1020-35-112 / / Set Screws Implanted:Qty : 10 on 01/20/2021 by Wyatt Ly MD at OR [facility] N/A: Spine Cervical [employer] 1020-00-000 / / 60mm Rods Implanted:Qty : 2 on 01/20/2021 by Wyatt Ly MD at OR [facility] N/A: Spine Cervical [employer] 1020-64-060 / / 1cm X 5cm Magnifuse Posterior Cervical Bone Graft (Formerly [employer]) Implanted:Qty : 1 on 03/15/2023 by Wyatt Ly MD at OR [facility] N/A: Spine Lumbar Medtronic Sofamor Dane[employer] [id number] 01/05/2025 [id number] / [id number] / LOT NA Catalyft Pl Expandable Interbody System, Interbody Cage Implanted:Qty : 2 on 03/15/2023 by Wyatt Ly MD at OR [facility] N/A: Spine Lumbar Medtronic 03/08/2030 [id number] / / [id number] 6.5 X 45 Screw Implanted:Qty : 2 on 03/15/2023 by Wyatt Ly MD at OR [facility] N/A: Spine Lumbar Medtronic [id number] / / Description:No Exp. Date, us ed out of set 6.5 X 40 Screw Implanted:Qty : 2 on 03/15/2023 by Wyatt Ly MD at OR [facility] N/A: Spine Lumbar Medtronic [id number] / / Description:No Expiration da te, used out of set 7.5 X 40 Screw Implanted:Qty : 2 on 03/15/2023 by Wyatt Ly MD at OR [facility] N/A: Spine Lumbar Medtronic [id number] / / Description:No Expiration Da te, used out of set Screw Bone Ti Set Solera 4.75m - [id number] Implanted:Qty : 6 on 03/15/2023 by Wyatt Ly MD at OR [facility] N/A: Spine Lumbar [employer] [id number] / / Description:No Expiration Da te, used out of set [place] 4.75mm Pbent 55mm - [id number] Implanted:Qty : 2 on 03/15/2023 by Wyatt Ly MD at OR [facility] N/A: Spine Lumbar [employer] : NEUROLOGIC PAIN [id number] / / 10cc Mastergraft Biologic Matrix Ext Block Implanted:Qty : 1 on 03/15/2023 by Wyatt Ly MD at OR [facility] N/A: Spine Lumbar Medtronic Sofamor [employer]ane[employer] [id number] 11/18/2025 [id number] / [id number] / [id number] Dbx 2.5cc [id number] - [id number] - [id number] Implanted:Qty : 1 on 03/15/2023 by Wyatt Ly MD at OR [facility] N/A: Spine Lumbar MUSCULOSKELETAL TRANSPLANT FND [id number] 08/04/2024 [id number] / [id number] / LOT NA Dbx 2.5cc [id number] - [id number] - [id number] Implanted:Qty : 1 on 03/15/2023 by Wyatt Ly MD at OR [facility] N/A: Spine Lumbar MUSCULOSKELETAL TRANSPLANT FND [id number] 10/04/2024 [id number] / [id number] / LOT NA Graft Bone Infuse Kit Xsmall - [id number] - [id number] Implanted:Qty : 1 on 03/15/2023 by Wyatt Ly MD at OR [facility] N/A: Spine Lumbar [employer]ONIC : NEUROLOGIC PAIN [id number] 07/20/2024 [id number] / [id number] / [id number] documented as of this encounter Visit Diagnoses [...] in partial or unspecified remission History of ND (myocardial infarction) Old myocardial infarction COPD, group B, by GOLD 2017 classification ([facility]) Hypomagnesemia Disorders of magnesium metabolism Hypertensive heart and kidney disease without heart failure and with stage 3a chronic kidney disease (HCC)- Primary Migraine without status migrainosus, not intractable, unspecified migraine type COPD, group B, by GOLD 2017 classification (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
--- OUTSIDE RECORDS SUMMARY | 2024-12-27 20:18 | External Medical Summary | Summary of Care ---
Author Name Unknown Organization [facility] Address [address] [place] [address] Phone [phone] Care Team Providers Care Reach Truck Operator Name Role Phone Hannah Ospina MD Primary Care Provider [phone] Reason for Referral * Precert (Within 10 days (routine)) - Authorized Specialty Diagnoses / Procedures Referred By Contac t Referred To Contact Radiology Diagnoses History of kidney stones Right flank pain Procedures CT ABD/PELVIS WO IV/ORAL CONTRAST Hannah Ospina MD [address] [place] [address] Phone: tel: fax: Referral ID Status Reason Start Date Expiration Date V isits Requested Visits Authorized [id number] Authorized 09/10/2024 999 999 Reason for Visit * Reason Comments Re-Check Encounter Details Date Type Department Care Team (Late st Contact Info) Description 09/10/2024 1:00 PM EST Office Visit Family Practice [facility] [address] [place] [address] Hannah Ospina MD [address] [place] [address] Hypertension goal BP (blood pressure) < 140/90*; Stage 3b chronic kidney disease (CKD) (HCC); Dyslipidemia, goal LDL below 70; 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 4 g 1 5 Active documented as of this encounter [...] KATLYN-FRIDA Combination Inhaler Remote Patient Monitoring Vendor: [facility] Device(s): Connected Scale Self-Management plan High frequency [...] Member can be directed to [facility] at [phone] M-F 8am-5pm Adjustment disorder with anxious mood [...] Resolved Date Coronary artery disease invo lving torres martinez coronary artery of torres martinez heart with angina pectoris 11/26/2023 09/10/2024 Assessment [...] Stress test scheduled for 12/22/23 History of ME (myocardial infarction) 04/25/2023 09/10/2024 Syncope 04/25/2023 01/22/2024 [...] in the Comments) Remote Patient Monitoring Vendor: [email or web address] Device(s): Connected Scale Self - Management Plan Other/Additional Comments: restart lasix daily Exacerbation Plan Anticipated IV Lasix dose: 40 mg BMP Chest X-Ray Additional Comments: Euvolemic today. Nephrology 05/17/24--new pt-[id number]--kirgq decline in renal function with lasix and [...] in the Comments) Remote Patient Monitoring Vendor: [email or web address] Device(s): Connected Scale Self - Management Plan [...] fx right #2,3,4,5 (CT done at [facility]) MEDICATION USE AGREEMENT 12/11/201408/2017 Overview (04/05/2016): Started [...] mRNA, LNP-s, No Pre serve, 2-Dose Series ([employer]) 12/24/2021,05/21/2021,11/04/2020,10/14 COVID-19, MRNA-LNP, PF, 30 M CG/0.3 mL, 12 YRS AND ABOVE, IM ([facility]) 06/07/2023 Covid-19, Mrna, Lnp-s, Pf, B ivalent, [...] Reading Time Taken Comments Blood Pressure 124/60 09/10/2024 1:07 PM EST Pulse 85 09/10/2024 1:07 PM EST Temperature 36.2 °C (97.1 °F) 09/10/2024 1:07 PM ES T Respiratory Rate 15 09/10/2024 1:07 PM EST Oxygen Saturation 87% 09/10/2024 1:07 PM EST Inhaled Oxygen Concentration - - Weight 68.9 kg (152 lb) 09/10/2024 1:07 PM EST Height - - Body Mass Index 30.68 05/09/2024 9:01 AM EDT documented in this [...] Josee Kingston RN documented in this encounter Progress Notes * Hannah Ospina MD - 09/10/2024 1:13 PM EST Subjective Chief Complaint Patient presents with Re-Check HPI: Sandy Fan is a 74 year old female. Patient is unaccompanied. The following issues were addressed today: Patient with CKD stage IIIa, diastolic dysfunction, CAD, HTN, COPD, LE edema presents for follow-up. Patient reports for the past few weeks she has been having right-sided pain that radiates around toher right flank. Occurring daily and is a constant pain. Has been managing with hydrocodone. Statesthe other day the pain was so bad she almost went to the ER. She has a history of kidney stones buthas not had any in recent years. She has reduced furosemide use to twice weekly. Lower extremity edema has been stable. Has noticed increased shortness of breath recently, especially if she is in cold weather. Right nowonly prescribed albuterol PRN. Review of Systems: See HPI Objective BP 124/60 | Pulse 85 | Temp 97.1 °F (36.2 °C) (Tympanic) | Resp 15 | Wt 152 lb (68.9 kg) | SpO2 87% | BMI 30.68 kg/m² | BSA 1.69 m² Wt Readings from Last 3 Encounters: 09/10/24 152 lb (68.9 kg) 07/04/24 149 lb (67.6 kg) 06/24/24 140 lb 4.8 oz (63.6 kg) BP Readings from Last 3 Encounters: 09/10/24 124/60 06/24/24 122/50 06/21/24 136/64 General: Well-appearing, no acute distress Cardiovascular: Regular rate and rhythm Respiratory: Good respiratory effort, breath sounds equal and clear to auscultation bilaterally Abdomen: Soft, non-distended, non-tender, normoactive bowel sounds, right-sided CVA tenderness Extremities: No edema Neurological: Alert and oriented, no focal deficits noted Psychiatric: Appropriate mood and affect Assessment & Plan 1. Hypertension goal BP (blood pressure) < 140/90 Well-controlled. Continue metoprolol 12.5mg, furosemide 40mg twice weekly. Update labs. - BASIC METABOLIC PANEL; Future 2. Stage 3b chronic kidney disease (CKD) (HCC) Stable. Update labs. - BASIC METABOLIC PANEL; Future 3. Dyslipidemia, goal LDL below 70 LDL near goal (at 83), TG remain slightly elevated. Continue atorvastatin 80mg daily, Zetia 10mg daily. 4. 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 No new symptoms. Continue current medications. 5. COPD (chronic obstructive pulmonary disease) with chronic bronchitis (HCC) Increased dyspnea. Will start LAMA + LABA daily. Rx sent for Stiolto Respimat. 6. Age-related osteoporosis without current pathological fracture Follows with rheumatology. 7. History of kidney stones 8. Right flank pain Check labs, UA, CT abd/pelvis. - CT ABD/PELVIS WO IV/ORAL CONTRAST; Future - URINALYSIS, REFLEX TO MICROSCOPIC; Future 9. Adjustment disorder with anxious mood 10. Moderate episode of recurrent major depressive disorder (HCC) Stable. Continue sertraline. Return in about 3 months (around 12/09/2024) for routine follow-up. This note was electronically signed by Hannah Ospina MD I spent a total of 40-54 minutes (exact time 40 mins) on the date of service in preparation, delivery, and documentation of the care provided to Sandy Fan excluding any time spent in the performance of separately billed services or time spent by another provider/QHP. documented in this encounter Nursing Notes * Yael Lopez LPN - 09/10/2024 1:05 PM EST Sandy Fan presents for 4 month recheck. Medications & HM reviewed. documented in this encounter Plan of Treatment Upcoming Encounters Date Type Department Care Team (Late st Contact Info) Description 09/11/2024 1:40 PM EST Telemedicine [facility] [place], [facility] [address] [facility] [place] [address] Nati Broderick CRNP [address] [place] [address] Jeanie Ruiz, Community Health Television Inspector [address] [place] [address] 09/13/2024 10:00 AM EST Imaging Radiology [address] [place] [phone] 09/13/2024 1:15 PM EST Office Visit Orthopaedics Spine Surgery [facility] [address] [place] [phone] Wyatt Ly MD [address] [place], [place] [address] [address] 10/09/2024 11:45 AM EST Hospital Encounter ENDO [facility], Endoscopy Room [facility] [address] [place] [phone] Riki Sanchez MD [address] [place] [address] 10/09/2024 11:45 AM EST - 10/09/2024 12:15 PM EST Surgery ENDO [facility], Endoscopy Room [facility] [address] [place] [phone] Riki Sanchez MD [address] [place] [address] COLONOSCOPY FLEXIBLE PROXIMAL DIAGNOSTIC 12/10/2024 1:00 PM EDT [facility] [address] [place] [address] Hannah Ospina MD [address] [place] [address] 12/20/2024 10:00 AM EDT Office Visit Cardiology, [facility] [address] [place] [address] Edward Oliver PA-C [address] [place] [address] 06/04/2025 9:40 AM EDT Office Visit Nephrology, [facility] [address] [place] [address] Ritchie Childress MD [address] [facility] [place] [address] 07/07/2025 11:30 AM EST Imaging Radiology [facility] [address] [place] [phone] 07/08/2025 11:00 AM EST Office Visit Rheumatology [facility] [address] [place] [phone] Yeyo Barrios MD [facility] [place] [employer] [place] [address] Scheduled Orders Name Type Priority Associated Diagnoses Orde r Schedule CT ABD/PELVIS WO IV/ORAL CONTRAST Medical Imaging Routine History of kidney stones Right flank pain Expected: 09/10/2024, Expires: 10/11/2025 Scheduled Procedures Name Priority Associated Diagnoses Date/Ti [...] ASSESSMENT COMPLETED IN PAST YEAR FOR COPD 09/10/2025 09/10/2024 Lipid Panel 03/01/2029 03/01/2024, 04/22, 10/25/2021, Additional [...] D LEVEL ONCE IN A LIFETIME-USE SMARTSET# [id number] Completed 05/17/2024, 03/07/2024, 07/05/2023, Additional history exists [...] this encounter Medical Devices Implanted Type Area Powder Expert Device Identifier Shelf Expiration Date Model / Serial / Lot Dbx 5cc [id number] - [id number] - [id number] Implanted:Qty : 1 on 01/20/2021 by Wyatt Ly MD at OR [facility] Tissue - Human N/A: Spine Cervical MUSCULOSKELETAL TRANSPLANT FND [id number] 08/22/2021 [id number] / [id number] / LOT NA Vitoss Bimodal Foam Pack 10 - [id number] - [id number] Implanted:Qty : 1 on 01/20/2021 by Wyatt Ly MD at OR [facility] N/A: Spine Cervical PAULETTE : SPINE 12/16/2021 [id number] / [id number] / [id number] 4.5 X 20mm Cortical Fixation Screw Implanted:Qty [...] HOSPITAL N/A: Spine Lumbar Medtronic Sofamor Danek [id number] 01/05/2025 [id number] / [id number] / LOT NA Catalyft Pl Expandable Interbody System, Interbody Cage Implanted:Qty : 2 on 03/15/2023 by Wyatt Ly MD at OR [facility] N/A: Spine Lumbar Medtronic 03/08/2030 [id number] / / [id number] 6.5 X 45 Screw Implanted:Qty : 2 on 03/15/2023 by Wyatt Ly MD at OR [facility] N/A: Spine Lumbar Medtronic [id number] / / Description:No Exp. Date, us ed out of set 6.5 X 40 Screw Implanted:Qty : 2 on 03/15/2023 by Wyatt Ly MD at OR [facility] N/A: Spine Lumbar Medtronic [id number] / / Description:No Expiration da te, used out of set 7.5 X 40 Screw Implanted:Qty : 2 on 03/15/2023 by Wyatt Ly MD at OR [facility] N/A: Spine Lumbar Medtronic [id number] / / Description:No Expiration Da te, used out of set Screw Bone Ti Set Solera 4.75m - [id number] Implanted:Qty : 6 on 03/15/2023 by Wyatt Ly MD at OR [facility] N/A: Spine Lumbar [employer] [id number] / / Description:No Expiration Da te, used out of set Anthony Gum Spring 4.75mm Pbent 55mm - [id number] Implanted:Qty : 2 on 03/15/2023 by Wyatt Ly MD at OR [facility] N/A: Spine Lumbar MEDTRONIC : NEUROLOGIC PAIN [id number] / / 10cc Mastergraft Biologic Matrix Ext Block Implanted:Qty : 1 on 03/15/2023 by Wyatt Ly MD at OR [facility] N/A: Spine Lumbar Medtronic Sofamor Danek [id number] 11/18/2025 [id number] / [id number] / [id number] Dbx 2.5cc [id number] - [id number] - [id number] Implanted:Qty : 1 on 03/15/2023 by Wyatt Ly MD at OR [facility] N/A: Spine Lumbar MUSCULOSKELETAL TRANSPLANT FND [id number] 08/04/2024 [id number] / [id number] / LOT NA Dbx 2.5cc 256550 - [id number] - [id number] Implanted:Qty : 1 on 03/15/2023 by Wyatt Ly MD at OR [facility] N/A: Spine Lumbar MUSCULOSKELETAL TRANSPLANT FND [id number] 10/04/2024 [id number] / [id number] / LOT NA Graft Bone Infuse Kit Xsmall - [id number] - [id number] Implanted:Qty : 1 on 03/15/2023 by Wyatt Ly MD at OR [facility] N/A: Spine Lumbar MEDTRONIC : NEUROLOGIC PAIN [id number] 07/20/2024 [id number] / [id number] / [id number] documented as of this encounter Results * (ABNORMAL) URINALYSIS, REFLEX TO MICROSCOPIC (09/10/2024 1:50 PM EST) Color, Urine Yellow Light Yellow, Yellow, Dark Yellow 09/10/2024 2:12 PM EST [facility] 56- Clarity, Urine Clear Clear 09/10/2024 2:12 PM EST [facility] 56 Glucose, Urine Negative Negative mg/dL 09/10/2024 2:12 PM EST [facility] 56- Bilirubin, Urine Negative Negative 09/10/2024 2:12 PM EST [facility] 56- Ketone, Urine Trace(A) Negative mg/dL 09/10/2024 2:12 PM EST [facility] 56- Specific [place], Urine 1.020 1.003 - 1.030 09/10/2024 2:12 PM EST [facility] 56- Blood, Urine Trace(A) Negative 09/10/2024 2:12 PM [facility] 56- pH, Urine 5.5 5.0 - 7.5 Units 09/10/2024 2:12 PM EST [facility] 56- Protein, Urine Negative Negative mg/dL 09/10/2024 2:12 PM [facility] 56 Urobilinogen, Urine 0.2 0.2, 1.0 mg/dL 09/10/2024 2:12 PM EST [facility] 56- Nitrite, Urine Negative Negative 09/10/2024 2:12 PM EST [facility] 56- Esterase, Urine Negative Negative 09/10/2024 2:12 PM EST [facility] 56- Urine Non-blood Collection / Unknown 09/10/2024 1:50 PM EST 09/10/2024 1:50 PM EST us Hannah Ospina MD LAB URINE ORDERABLES Final Resu lt [address] [place] [address] * (ABNORMAL) BASIC METABOLIC PANEL (09/10/2024 1:46 PM EST) BUN 30(H) 6 - 20 mg/dL 09/10/2024 3:15 PM [place] [address] CREATININE 1.2(H) 0.5 - 1.0 mg/dL 09/10/2024 3:15 PM [facility] 56- EGFR 48(L) >=60 mL/min 09/10/2024 3:15 PM [facility] 56- Comment:eGFR is calculated b ased on the CKD-EPI 2020 equation. SODIUM 142 135 - 146 mmol/L 09/10/2024 3:15 PM [facility] 56- POTASSIUM 4.8 3.5 - 5.1 mmol/L 09/10/2024 3:15 PM [facility] 56- CHLORIDE 103 98 - 107 mmol/L 09/10/2024 3:15 PM [facility] 56- CO2 28 22 - 32 mmol/L 09/10/2024 3:15 PM [facility] 56- ANION GAP 11 7 - 15 mmol/L 09/10/2024 3:15 PM [facility] 56 GLUCOSE 80 70 - 120 mg/dL 09/10/2024 3:15 PM [facility] 56 CALCIUM 9.9 8.4 - 10.2 mg/dL 09/10/2024 3:15 PM EST [facility] [place] 56- Blood Venous blood specimen / Unknown Venipuncture / Unknown 09/10/2024 1:46 PM EST 09/10/2024 1:46 PM EST Hannah Ospina MD LAB BLOOD ORDERABLES Final Resu lt [facility] 56- [address] [place] [address] documented in this encounter Visit Diagnoses Diagnosis [...] in partial or unspecified remission History of ME (myocardial infarction) Old myocardial infarction COPD, group B, by GOLD 2017 classification ([facility]) Hypomagnesemia Disorders of magnesium metabolism Hypertensive heart and kidney disease without heart failure and with stage 3a chronic kidney disease (HCC)- Primary Migraine without status migrainosus, not intractable, unspecified migraine type COPD, group B, by GOLD 2017 classification (HCC) History of ME (myocardial infarction) Old myocardial infarction Major depressive [...] kidney disease (HCC) 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) Obstructive chronic bronchitis without exacerbation Hypertensive heart and kidney disease with chronic diastolic congestive heart failure and stage 3a chronic kidney disease (HCC)- Primary Chest pain, unspecified type 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) Dysphagia, unspecified type Hypertension goal BP (blood pressure) < 140/90- Primary Unspecified essential hypertension Stage 3b chronic kidney disease (CKD) (HCC) Dyslipidemia, goal LDL below 70 Other and unspecified hyperlipidemia 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) Obstructive chronic bronchitis without exacerbation Age-related osteoporosis without current pathological fracture Senile osteoporosis History of kidney stones Personal history of urinary calculi Right flank pain Abdominal pain, unspecified site Adjustment disorder with anxious mood Adjustment disorder with anxiety Moderate episode of recurrent major depressive disorder (HCC) History of colon polyps Personal history of [...] Directives occurred with: Not Discussed Care Teams Reach Truck Operator Relationship Specialty Start Date End Date Hannah Ospina MD [address] [facility] [place] [address] PCP - General Family Medicine 04/11/24 documented as of this encounter
--- OUTSIDE RECORDS SUMMARY | 2024-12-27 20:18 | External Medical Summary | Summary of Care ---
Author Name Unknown Organization [facility] Address [address] [place] [address] Phone [phone] Care Team Providers Care Web Application Developer Name Role Phone Hannah Ospina MD Primary Care Provider [phone] Encounter Details Date Type Department Care Team (Late st Contact Info) Description 09/11/2024 1:40 PM EST Telemedicine [facility], [facility] [address] [place] [address] Nati Broderick, FLASH [address] [place] [address] Jeanie Ruiz, Community Health Bale Coverer [address] [place] [address] Chronic heart failure with preserved ejection fraction (HCC)*; COPD (chronic obstructive pulmonary disease) with chronic bronchitis (HCC); Spinal stenosis of lumbar region, unspecified whether neurogenic claudication present; Migraine without status migrainosus, not intractable, unspecified migraine type; Age-related osteoporosis without current pathological fracture; Flank pain; Insomnia, unspecified type Allergies Active Allergy Reactions Criticality Noted Date Comments Varenicline 12/11/2014 nausea Corticosteroids Other (Please comment) Medium 12/27/2013 Hyper, Mental Status Changes on oral steroids Dm-Apap-Cpm Anaphylaxis,Other (Please comment) High 12/27/2013 Contact dermatitis Ibuprofen Other (Please comment) Low 12/27/2013 Affects acid reflux Iodinated Contrast Media Hives 10/08/2007 Penicillins 10/09/2007 Rash documented as of this encounter (statuses as of 09/11/2024) Medications ASPIRIN 81 MG PO TABSIndications:Ca n [...] Hour (toPROL XL)Indications:Cor onary artery disease involving assiniboine and sioux coronary 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) TAKE 1/2 TABLET BY MOUTH DAILY 45 Tablet 3 10/03/202 4 Active Vitamin D3 50 MCG (2000 [...] as of this encounter (statuses as of 09/11/2024) Active Problems Problem Noted Date Diagnosed Date [...] be directed to [facility] at [phone] M-F 8am-5pm Adjustment disorder with anxious mood [...] as of this encounter (statuses as of 09/11/2024) Resolved Problems Problem Noted Date Diagnosed Date Resolved Date Coronary artery disease invo lving assiniboine and sioux coronary artery of assiniboine and sioux heart with angina pectoris 11/26/2023 09/10/2024 Assessment [...] Stress test scheduled for 12/22/23 History of VA (myocardial infarction) 04/25/2023 09/10/2024 Syncope 04/25/2023 01/22/2024 [...] Beta Juan Miguel Therapy: Metoprolol Succinate (ER) MOAN Inhibitor/ARB Therapy: No MONA/ARB/ARNI Diuretic therapy: No diuretic secondary to d/c by pcp SGLT2 Inhibitor: No Current SGLT2 (Describe in the Comments) Remote Patient Monitoring Vendor: E[employer] Device(s): Connected Scale Self - Management Plan Other/Additional Comments: restart lasix daily Exacerbation Plan Anticipated IV Lasix dose: 40 mg BMP Chest X-Ray Additional Comments: Euvolemic today. Nephrology 05/17/24--new pt-[id number]--nxdbc decline in renal function with lasix and [...] in the Comments) Remote Patient Monitoring Vendor: EZDOCTOR Device(s): Connected Scale Self - Management Plan [...] non-displaced fx right #2,3,4,5 (CT done at [facility]) MEDICATION USE AGREEMENT 12/11/201408/2017 Overview (04/05/2016): Started [...] Having left sciatic sx's - followed by [facility] Pain Management documented as of this encounter (statuses as of 09/11/2024) Immunizations Name Administration Dates Next Due COVID-19 mRNA, LNP-s, No Pre serve, 2-Dose Series (Pfizer) 12/24/2021,05/21/2021,11/04/2020,10/14 COVID-19, MRNA-LNP, PF, 30 M CG/0.3 mL, 12 YRS AND ABOVE, IM ([facility]) 06/07/2023 Covid-19, Mrna, Lnp-s, Pf, B [...] Sign Reading Time Taken Comments Blood Pressure 124/58 09/11/2024 2:01 PM EST Pulse 75 09/11/2024 2:01 PM EST Temperature 37.1 °C (98.7 °F) 09/11/2024 2:01 PM ES T Respiratory Rate - - Oxygen Saturation 95% 09/11/2024 2:01 PM EST Inhaled Oxygen Concentration - - Weight - - Height - - Body Mass Index - - documented in this encounter Functional Status * [...] documented in this encounter Progress Notes * Jeanie Ruiz, Community Health Bale Coverer - 09/11/2024 1:59 PM EST Telemedicine visit: Yes Patient location: HOME. I was not in a hospital or clinic location. After connecting through [employer] 1 [employer], patient was verified with two unique identifiers. Patient (or authorized legal asset protection representative) was then informed that this was a Telemedicine visit and being conducted confidentially over secure lines. Methods to assure confidentiality were taken. Patient acknowledged consent and understanding of privacy and security of the Telemedicine visit. The patient agreed to participate. Community Health Bale Coverer (NI) documentation: This CHW facilitated telehealth visit with Nati Ruiz- Community Health Worker 1 Support Services/[facility] [employer] [email or web address] * Nati Broderick CRNP - 09/11/2024 1:40 PM EST Images from the original note were not included. [facility] Provider Visit Assessment and Plan Assessment & Plan COPD (chronic obstructive pulmonary disease) with chronic bronchitis (HCC) "RED FLAG" COPD symptoms: Increased shortness of breath at rest Cough Medication Regimen All Classes - FRIDA Class B, C, D - LAMA Remote Patient Monitoring Vendor: No Connected RPM Device(s): Traditional Scale Self-Management plan High frequency nebulizer treatments every 4-6 hours around the clock Exacerbation plan Chest Xray Additional Comments: Stable today Chronic heart failure with preserved ejection fraction (HCC) "RED FLAG" HF Symptoms: Leg Swelling Medication [...] Stable today. Takes furosemide twice weekly only Spinal stenosis of lumbar region, unspecified whether neurogenic claudication present She is followed by orthopedic spine surgery with an appointment next week. Suspect her left leg pain could be slightly increased due to reduction in her gabapentin. She will further discuss with surgeon next week Migraine without status migrainosus, not intractable, unspecified migraine type Followed by Neurology in his had Botox injections. Age-related osteoporosis without current pathological fracture Rheumatology 07/04/2024-follow up with the osteoporosis-continue drug holiday Flank pain Her pain is very suspicious to be musculoskeletal in nature since it is painful with palpation by CHW. She will get CT completed on Monday and follow up with her PCP. Insomnia, unspecified type Discussed sleep hygiene today. Recommended against sleeping during the day so that her body is ready to sleep at night. She will try to avoid napping today and go to bed around 7 or 8 to see if she can sleep through the night. She will follow up with PCP with any persistent symptoms. Additional Medical Decision Making: Stable. Keeping all scheduled appointments. No further scheduled [facility] home provider visits. RN to monitor and consider graduation and future. Patient is agreeable. Scheduled appointments in the next 60 days: Future Appointments-next 60 days Date/Time Provider Specialty Dept Phone 09/11/2024 1:40 PM Jeanie Ruiz, Community Health Bale Coverer; Nati Broderick CRNP [facility] Arrive at: Patient's Home [phone] 09/13/2024 10:00 AM CT1 [facility] Radiology [phone] 09/13/2024 1:15 PM (Arrive by 1:00 PM) Wyatt Ly MD Orthopedic Surgery [phone] 12/10/2024 1:00 PM (Arrive by 12:45 PM) Hannah Ospina MD Family Medicine [phone] 12/20/2024 10:00 AM (Arrive by 9:45 AM) Edward Oliver PA-C Cardiology [phone] 06/04/2025 9:40 AM (Arrive by 9:25 AM) Ritchie Childress MD Nephrology [phone] 07/07/2025 11:30 AM DEXA [facility] Radiology [phone] 07/08/2025 11:00 AM (Arrive by 10:45 AM) Yeyo Barrios MD Rheumatology [phone] A total of 21 minutes was spent face to face (via video-based telemedicine if designated as a telemedicine visit) Subjective Subjective Is this a Telemedicine Visit? Yes, Patient location: HOME. I was not in a hospital or clinic location. After connecting through televideo, patient was verified with two unique identifiers. Patient (or authorized legal asset protection representative) was then informed that this was a Telemedicine visit and being conducted confidentially over secure lines. Methods to assure confidentiality were taken. Patient acknowledged consent and understanding of privacy and security of the Telemedicine visit. The patient agreed to participate. Reason For [facility] Visit: Follow-Up Current Concerns: Sandy Fan is a 74 year old female [facility] PMH--chronic diastolic heart failure-EF 60% TTE 2022, history nonobstructive CAD, PVD, hypertension, hyperlipidemia, COPD, migraine, GERD, anxiety/mood disorder, chronic anemia Cardiology 06/21/2024-to resume furosemide at reduced dose of 20 mg 2 nonconsecutive days per week to 8 and volume overload, decrease gabapentin to 300 mg twice a day to hopefully improve dyspepsia as well as fluid retention Neurology 06/24/2024-migraine headache management Rheumatology 07/04/2024-follow up with the osteoporosis-continue drug holiday PCP 09/10/2024-reported right flank pain for several weeks--CT AP ordered Today's concerns are: Reports she has not slept in her bed for 2 days, admits she gets busy doing things and doesn't quit. Admits she dozes off several times during the day. Takes elavil at night andthis does make her a bit drowsy. She had NM myocardial stress testing 07/30/24--negative. CT to be done on Monday. UA with trace blood. Mild R "sharp" flank pain, moving seems to make it worse. Reports some sharp pain L knee to foot--for 1-2 weeks--sees ortho spine 09/13/24 Denies any falls. Reports slight back pain. She thinks her LLE pain may be a bit worse since reducing this pain. Occasional shortness of breath--cold air takes her breath away. Does not check wt daily. Additional Current Outpatient Medications Medication Sig Dispense Refill [...] EVERY DAY IN THE MORNING 90Tablet 3 Amitriptyline HCl 10 MG Oral Tablet (Elavil) TAKE 2 TABLETS BY MOUTH AT BEDTIME 180 Tablet 2 Omeprazole 40 MG Oral Capsule Delayed Release (PriLOSEC) TAKE 1 CAPSULE BY MOUTH EVERY DAY 100 Capsule 3 Albuterol Sulfate (2.5 MG/3ML) 0.083% Inhalation Nebulization Solution (Proventil) Inhale 1 Vial via nebulizer every 4 hours as needed for Wheezing. Ezetimibe 10 MG Oral Tablet (Zetia) Take 1 Tablet by mouth in the morning. 90 Tablet 1 Sertraline HCl 100 MG Oral Tablet (Zoloft) Take 2 Tablets by mouth at bedtime. 180 Tablet 1 tiZANidine HCl 4 MG Oral Tablet (Zanaflex) TAKE 1 TABLET BY MOUTH EVERY 8 HOURS NEEDED FOR MUSCLE SPASMS 30 Tablet 5 Metoprolol Succinate ER 25 MG Oral Tablet Extended Release 24 Hour (toPROL XL) TAKE 1/2 TABLET BY MOUTH DAILY 45 Tablet 3 Vitamin D3 50 MCG (2000 UT) Oral Capsule Take 1 Capsule by mouth in the morning. 30 Capsule 5 Nitroglycerin 0.4 MG Sublingual Tablet Sublingual (Nitrostat) Take 1 tab sublingual as needed for chest pain 25 Tablet 1 Gabapentin 300 MG Oral Capsule (Neurontin) Take 1 Capsule by mouth 2 times a day. Furosemide 40 MG Oral Tablet (Lasix) Take 1 Tablet by mouth once a day on Monday and Monday only. Albuterol Sulfate HFA 108 (90 Base) MCG/ACT Inhalation Aerosol Solution INHALE 2 PUFFS BY MOUTH EVERY 4 HOURS NEEDED FOR WHEEZING OR SHORTNESS OF BREATH. 18 g 1 HYDROcodone-Acetaminophen 5-325 MG Oral Tablet Take 1 Tablet by mouth every 6 hours as needed for Pain, Moderate or Pain, Severe. Max 2 per day 60 Tablet 0 Stiolto Respimat 2.5-2.5 MCG/ACT Inhalation Aerosol Solution (Tiotropium- Olodaterol) Inhale 2 Puffsby mouth in the morning. 4 g 1 No current facility-administered medications for this visit. I have reviewed the following results: Component Latest Ref Rng 03/12/2024 05/17/2024 WBC 4.00 - 10.80 K/uL 6.95 10.74 RBC 3.85 - 5.15 M/uL 3.43 4.05 HGB 12.0 - 15.3 g/dL 10.3 (L) 12.2 HCT 36.0 - 45.2 % 33.8 (L) 38.4 MCV 81.5 - 97.5 fL 98.5 94.8 MCH 27.0 - 34.0 pg 30.0 30.1 MCHC 32.0 - 36.0 g/dL 30.5 31.8 RDW 11.5 - 15.5 % 13.2 13.2 PLT 140 - 400 K/uL 152 289 MPV 6.6 - 11.1 fL 12.2 10.7 nRBCs <=0 /100 WBCs 0 0 Legend: (L) Low Component Latest Ref Rng 05/17/2024 09/10/2024 BUN 6 - 20 mg/dL 19 30 (H) CREATININE 0.5 - 1.0 mg/dL 0.9 1.2 (H) EGFR >=60 mL/min 65 48 (L) SODIUM 135 - 146 mmol/L 141 142 POTASSIUM 3.5 - 5.1 mmol/L 4.2 4.8 CHLORIDE 98 - 107 mmol/L 104 103 CO2 22 - 32 mmol/L 25 28 ANION GAP 7 - 15 mmol/L 12 11 GLUCOSE 70 - 120 mg/dL 99 80 CALCIUM 8.4 - 10.2 mg/dL 9.9 9.9 Albumin 3.8 - 5.0 g/dL 4.4 Phosphorus 2.5 - 4.8 mg/dL 3.9 Legend: (H) High (L) Low Lab Results Component Value Date/Time PRO BNP 124 11/15/2016 11:31 AM LEFT VENTRICULAR EJECTION FRACTION 60 02/23/2023 02:03 PM Objective Objective Vitals: 09/11/24 1401 Temp: 37.1 °C (98.7 °F) Pulse: 75 SpO2: 95% BP: 124/58 Last Weights: Wt Readings from Last 3 Encounters: 09/10/24 68.9 kg (152 lb) 07/04/24 67.6 kg (149 lb) 06/24/24 63.6 kg (140 lb 4.8 oz) Last BPs: BP Readings from Last 4 Encounters: 09/11/24 124/58 09/10/24 124/60 06/24/24 122/50 06/21/24 136/64 Physical Exam Vitals reviewed. Constitutional: General: She is not in acute distress. Appearance: She is not toxic-appearing. Cardiovascular: Rate and Rhythm: Normal rate and regular rhythm. Pulmonary: Effort: Pulmonary effort is normal. No respiratory distress. Breath sounds: Normal breath sounds. Musculoskeletal: Right lower leg: No edema. Left lower leg: No edema. Comments: Tenderness to palpation R flank area Skin: Coloration: Skin is not pale. Neurological: General: No focal deficit present. Mental Status: She is alert. Psychiatric: Mood and Affect: Mood normal. Behavior: Behavior normal. FLASH [facility], [place] [phone] This note was verbally transcribed via dictation system and spelling/word errors can occur. Please contact the undersigned for any clarification/correction regarding dictated information if needed. documented in this encounter Miscellaneous Notes * Assessment & Plan Note - Nati Broderick CRNP - 09/11/2024 3:06 PM EST Associated Problem(s): COPD (chronic obstructive pulmonary disease) with chronic bronchitis (HCC) "RED FLAG" COPD symptoms: Increased shortness of breath at rest Cough Medication Regimen All Classes - FRIDA Class B, C, D - LAMA Remote Patient Monitoring Vendor: No Connected RPM Device(s): Traditional Scale Self-Management plan High frequency nebulizer treatments every 4-6 hours around the clock Exacerbation plan Chest Xray Additional Comments: Stable today * Assessment & Plan Note - Nati Broderick CRNP - 09/11/2024 3:06 PM EST Associated Problem(s): Chronic heart failure with preserved ejection fraction (HCC) "RED FLAG" HF Symptoms: Leg Swelling Medication [...] Stable today. Takes furosemide twice weekly only * Assessment & Plan Note - Nati Broderick CRNP - 09/11/2024 3:06 PM EST Associated Problem(s): Lumbar spinal stenosis She is followed by orthopedic spine surgery with an appointment next week. Suspect her left leg pain could be slightly increased due to reduction in her gabapentin. She will further discuss with surgeon next week * Assessment & Plan Note - Nati Broderick CRNP - 09/11/2024 3:06 PM EST Associated Problem(s): Migraine without status migrainosus, not intractable Followed by Neurology in his had Botox injections. * Assessment & Plan Note - Nati Broderick CRNP - 09/11/2024 3:06 PM EST Associated Problem(s): Age-related osteoporosis without current pathological fracture Rheumatology 07/04/2024-follow up with the osteoporosis-continue drug holiday * Assessment & Plan Note - Nati Broderick CRNP - 09/11/2024 3:06 PM EST Associated Problem(s): Flank pain Her pain is very suspicious to be musculoskeletal in nature since it is painful with palpation by CHW. She will get CT completed on Monday and follow up with her PCP. * Assessment & Plan Note - Nati Broderick CRNP - 09/11/2024 3:06 PM EST Associated Problem(s): Insomnia Discussed sleep hygiene today. Recommended against sleeping during the day so that her body is ready to sleep at night. She will try to avoid napping today and go to bed around 7 or 8 to see if she can sleep through the night. She will follow up with PCP with any persistent symptoms. documented in this encounter Plan of Treatment Upcoming Encounters Date Type Department Care Team (Late st Contact Info) Description 09/13/2024 10:00 AM EST Imaging Radiology [facility] 1st [facility] [address] [place] [phone] 09/13/2024 1:15 PM EST Office Visit Orthopaedics Spine Surgery [facility] [address] [place] [phone] Wyatt Ly MD [address] [place] [address] 10/09/2024 11:45 AM EST Hospital Encounter ENDO [facility], Endoscopy Room [facility] [address] [place] [phone] Riki Sanchez MD [address] [place] [address] 10/09/2024 11:45 AM EST - 10/09/2024 12:15 PM EST Surgery ENDO [facility], Endoscopy Room [facility] [address] [place] [phone] Riki Sanchez MD [address] [place] [address] COLONOSCOPY FLEXIBLE PROXIMAL DIAGNOSTIC 12/10/2024 1:00 PM EDT Office Visit Family Practice [facility] [address] [place] [address] Hannah Ospina MD [address] [place] [address] 12/20/2024 10:00 AM EDT Office Visit Cardiology, [facility] [address] [place] [place] [address] Edward Oliver PA-C [address] [place] [address] 06/04/2025 9:40 AM EDT Office Visit Nephrology, [facility] [address] [place] [address] Ritchie Childress MD [address] [place] [address] 07/07/2025 11:30 AM EST Imaging Radiology [facility] [address] [place] [phone] 07/08/2025 11:00 AM EST Office Visit Rheumatology [facility] [address] [place] [phone] Yeyo Barrios MD [address] [place] [address] [place] [address] Scheduled Procedures Name Priority Associated Diagnoses Date/Ti [...] D LEVEL ONCE IN A LIFETIME-USE SMARTSET# 96874 Completed 05/17/2024, 03/07/2024, 07/05/2023, Additional history exists [...] this encounter Medical Devices Implanted Type Area Production Control Specialist Device Identifier Shelf Expiration Date Model / Serial / Lot Dbx 5cc [id number] - [id number] - [id number] Implanted:Qty : 1 on 01/20/2021 by Wyatt Ly MD at [facility] Tissue - Human N/A: Spine Cervical MUSCULOSKELETAL TRANSPLANT FND [id number] 08/22/2021 [id number] / [id number] / LOT NA Vitoss Bimodal Foam Pack 10cc - [id number] - [id number] Implanted:Qty : 1 on 01/20/2021 by Wyatt Ly MD at OR [facility] N/A: Spine Cervical PAULETTE : SPINE 12/16/2021 [id number] / [id number] / [id number] 4.5 X 20mm Cortical Fixation Screw Implanted:Qty : 1 on 01/20/2021 by Wyatt Ly MD at OR [facility] N/A: Spine Cervical [employer] 1020-45-220 / / 4.5 X 22mm Cortical Fixation Screw Implanted:Qty : 1 on 01/20/2021 by Wyatt Ly MD at OR [facility] N/A: Spine Cervical [employer] 1020-45-222 / / 3.5 X 12mm Screws Implanted:Qty : 8 on 01/20/2021 by Wyatt Ly MD at OR [facility] N/A: Spine Cervical [employer] 1020-35-112 / / Set Screws Implanted:Qty : 10 on 01/20/2021 by Wyatt Ly MD at OR [facility] N/A: Spine Cervical [employer] 1020-00-000 / / 60mm Rods Implanted:Qty : 2 on 01/20/2021 by Wyatt Ly MD at OR [facility] N/A: Spine Cervical [employer] 1020-64-060 / / 1cm X 5cm Magnifuse Posterior Cervical Bone Graft (Formerly [employer]otech) Implanted:Qty : 1 on 03/15/2023 by Wyatt Ly MD at OR [facility] N/A: Spine Lumbar Medtronic FlyReadyJetiAmplify [id number] 01/05/2025 [id number] / [id number] / LOT NA Catalyft Pl Expandable Interbody System, Interbody Cage Implanted:Qty : 2 on 03/15/2023 by Wyatt Ly MD at OR [facility] N/A: Spine Lumbar Medtronic 03/08/2030 [id number] / / [id number] 6.5 X 45 Screw Implanted:Qty : 2 on 03/15/2023 by Wyatt Ly MD at OR [facility] N/A: Spine Lumbar Medtronic [id number] / / Description:No Exp. Date, us ed out of set 6.5 X 40 Screw Implanted:Qty : 2 on 03/15/2023 by Wyatt Ly MD at OR [facility] N/A: Spine Lumbar Medtronic [id number] / / Description:No Expiration da te, used out of set 7.5 X 40 Screw Implanted:Qty : 2 on 03/15/2023 by Wyatt Ly MD at OR [facility] N/A: Spine Lumbar Medtronic [id number] / / Description:No Expiration Da te, used out of set Screw Bone Ti Set Solera 4.75m - [id number] Implanted:Qty : 6 on 03/15/2023 by Wyatt Ly MD at OR [facility] N/A: Spine Lumbar [employer]TRONIC [facility] [id number] / / Description:No Expiration Da te, used out of set [place] 4.75mm Pbent 55mm - [id number] Implanted:Qty : 2 on 03/15/2023 by Wyatt Ly MD at OR [facility] N/A: Spine Lumbar MEDTRONIC : NEUROLOGIC PAIN [id number] / / 10cc Mastergraft Biologic Matrix Ext Block Implanted:Qty : 1 on 03/15/2023 by Wyatt Ly MD at OR [facility] N/A: Spine Lumbar Medtronic [employer] [id number] 11/18/2025 [id number] / [id number] / [id number] Dbx 2.5cc [id number] - [id number] - [id number] Implanted:Qty : 1 on 03/15/2023 by Wyatt Ly MD at OR [facility] N/A: Spine Lumbar MUSCULOSKELETAL TRANSPLANT FND [id number] 08/04/2024 [id number] / [id number] / LOT NA Dbx 2.5cc [id number] - [id number] - [id number] Implanted:Qty : 1 on 03/15/2023 by Wyatt Ly MD at OR [facility] N/A: Spine Lumbar MUSCULOSKELETAL TRANSPLANT FND [id number] 10/04/2024 [id number] / [id number] / LOT NA Graft Bone Infuse Kit Xsmall - [id number] - [id number] Implanted:Qty : 1 on 03/15/2023 by Wyatt Ly MD at OR [facility] N/A: Spine Lumbar MEDTRONIC : NEUROLOGIC PAIN [id number] 07/20/2024 [id number] / [id number] / [id number] documented as of this encounter Visit Diagnoses [...] in partial or unspecified remission History of VA (myocardial infarction) Old myocardial infarction COPD, group B, by GOLD 2017 classification ([facility]) Hypomagnesemia Disorders of magnesium metabolism Hypertensive heart and kidney disease without heart failure and with stage 3a chronic kidney disease (HCC)- Primary Migraine without status migrainosus, not intractable, unspecified migraine type COPD, group B, by GOLD 2017 classification ([facility]) History of VA (myocardial infarction) Old myocardial infarction Major depressive [...] kidney disease (HCC) Coronary artery disease involving assiniboine and sioux coronary 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) COPD (chronic obstructive pulmonary disease) with chronic bronchitis (HCC) Obstructive chronic bronchitis without exacerbation Hypertensive heart and kidney disease with chronic diastolic congestive heart failure and stage 3a chronic kidney disease (HCC)- Primary Chest pain, unspecified type Coronary artery disease involving assiniboine and sioux coronary 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) Dysphagia, unspecified [...] Abdominal pain, unspecified site Insomnia, unspecified type History of colon polyps Personal history of [...] Directives occurred with: Not Discussed Care Teams Web Application Developer Relationship Specialty Start Date End Date Hannah Ospina MD [address] [place] [address] PCP - General Family Medicine 04/11/24 documented as of this encounter
--- OUTSIDE RECORDS SUMMARY | 2024-12-27 20:19 | External Medical Summary | Summary of Care ---
Author Name Unknown Organization [facility] Address [address] [place] [address] Phone [phone] Care Team Providers Care Manufacturing Lab Technician Name Role Phone Dhruv Ospina MD Primary Care Provider [phone] Reason for Visit * Reason Onset Date Comments Medication Refill 08/28/2024 Encounter Details Date Type Department Care Team (Late st Contact Info) Description 08/28/2024 [facility]ill [facility] [address] [place] [address] Dhruv [facility]spina MD [address] [facility] [address] Generalized osteoarthrosis, involving multiple sites Allergies Active Allergy Reactions Criticality Noted Date Comments Varenicline 12/11/2014 nausea Corticosteroids Other (Please comment) Medium 12/27/2013 Hyper, Mental Status Changes on oral steroids Dm-Apap-Cpm Anaphylaxis,Other (Please comment) High 12/27/2013 Contact dermatitis Ibuprofen Other (Please comment) Low 12/27/2013 Affects acid reflux Iodinated Contrast Media Hives 10/08/2007 Penicillins 10/09/2007 Rash documented as of this encounter (statuses as of 08/29/2024) Medications ASPIRIN 81 MG PO TABSIndications:Ca n [...] MORNING 90 Tablet 3 02/14/20 24 Active Amitriptyline HCl 10 MG Oral Tablet (Elavil) TAKE 2 TABLETS BY MOUTH AT BEDTIME 180 Tablet 2 03/06/20 24 Active Omeprazole 40 MG Oral Capsule [...] Hour (toPROL XL)Indications: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 18 g 1 08/15/20 24 Active HYDROcodone-Acetam inophen 5-325 MG Oral TabletIndications: Generalized osteoarthrosis, involving multiple sites Take 1 Tablet by mouth every 6 hours as needed for Pain, Moderate or Pain, Severe. Max 2 per day 60 Tablet 08/29/19 25 Active HYDROcodone-Acetam inophen 5-325 MG Oral TabletIndications: Generalized osteoarthrosis, involving multiple sites Take 1 Tablet by mouth every 6 hours as needed for Pain, Moderate or Pain, Severe. 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 11/26/2023 Assessment & [...] PM EST): Continue with zoloft History of KS (myocardial infarction) 04/25/2023 Hypertensive heart and kidne y disease with chronic diastolic congestive heart failure and stage 3a chronic kidney disease 04/13/2023 Assessment & Plan (06/18/2024 12:12 PM EDT): "RED FLAG" HF Symptoms: NO IDENTIFIED SYMPTOMS Medication Regimen: Beta Juan Miguel Therapy: Metoprolol Succinate (ER) MONA Inhibitor/ARB Therapy: No MONA/ARB/ARNI Diuretic therapy: No diuretic secondary to d/c by pcp SGLT2 Inhibitor: No Current SGLT2 (Describe in the Comments) Remote Patient Monitoring Vendor: [employer] Device(s): Connected Scale Self - Management Plan Other/Additional Comments: restart lasix daily Exacerbation Plan Anticipated IV Lasix dose: 40 mg BMP Chest X-Ray Additional Comments: Euvolemic today. Nephrology 05/17/24--new pt-WVF2r--flvbz decline in renal function with lasix and [...] in the Comments) Remote Patient Monitoring Vendor: [employer] Device(s): Connected Scale Self - Management Plan [...] haivng higher BP but now well controlled Lumbar spinal stenosis 03/15/2023 Assessment & Plan [...] as of this encounter (statuses as of 08/29/2024) Resolved Problems Problem Noted Date Diagnosed Date Resolved Date Syncope 04/25/2023 01/22/2024 Assessment & Plan (04/25/2023 [...] 2.3 2.2 2.2 No oral replacement currently Food insecurity 11/01/2021 01/03/2024 Overview: Per Fresh [...] non-displaced fx right #2,3,4,5 (CT done at [facility]) MEDICATION USE AGREEMENT 12/11/201408/2017 Overview [...] as of this encounter (statuses as of 08/29/2024) Immunizations Name Administration Dates Next Due COVID-19 mRNA, LNP-s, No Pre serve, 2-Dose Series (Coravin) 12/24/2021,05/21/2021,11/04/2020,10/14 COVID-19, MRNA-LNP, PF, 30 M CG/0.3 mL, 12 YRS AND ABOVE, IM ([employer]-Comirnaty) 06/07/2023 Covid-19, Mrna, Lnp-s, Pf, B ivalent, [...] No 05/01/2024 Does the household have a [facility] source of income? (Household - for ages [...] No 03/15/2023 2:09 PM EDJosee Florez RN * Because of a physical, mental, or emotional condition, do you have difficulty doing errands alone such as visiting a doctor’s office or shopping? (15 years old or older) Answer Date of Assessment Author No 03/15/2023 2:09 PM Josee Kingston, RN documented as of this encounter Mental Status * Because of a physical, mental, or emotional condition, do you have serious difficulty concentrating, remembering, or making decisions? (5 years old or older) Answer Entry Date Author No 03/15/2023 2:09 PM Josee Kingston RN documented in this encounter Miscellaneous Notes * Telephone Encounter - Dhruv Ospina MD - 08/29/2024 11:54 AM ESTSigned Prescriptions: Disp Refills HYDROcodone-Acetaminophen 5-325 MG Oral Ta*60 Tab*0 Sig: Take 1 Tablet by mouth every 6 hours as needed for Pain, Moderate or Pain, Severe. Max 2 per day Authorizing Provider: DHRUV OSPINA * Telephone Encounter - Jessica Desir RPh - 08/29/2024 9:52 AM ESTPending Prescriptions: Disp Refills HYDROcodone-Acetaminophen 5-325 MG Oral Ta*60 Tab*0 Sig: Take 1 Tablet by mouth every 6 hours as needed for Pain, Moderate or Pain, Severe. Max 2 per day * Telephone Encounter - Jessica Desir RPh - 08/29/2024 9:52 AM EST I have reviewed the patient’s controlled substance dispensing history in the Prescription Drug Monitoring Program in compliance with the [facility] regulations before prescribing a controlled substance. PDMP checked on 08/29/2024. Pending Prescriptions: Disp Refills HYDROcodone-Acetaminophen 5-325 MG Oral T*60 Tab*0 Sig: Take 1 Tablet by mouth every 6 hours as needed for Pain, Moderate or Pain, Severe. Max 2 per day Last Visit: 06/03/2024 (in office), Visit date not found (telemedicine) Next Visit: 09/10/2024 Date medication was last filled: 07/29/24 Date medication is due for refill: 08/27/24 Pharmacy: [facility] [address] [place] [address] Is this request for a controlled substance? Yes and Urine Drug Screen Not completed Toxicology results: No results found. However, due to the size of the patient record, not all encounters were searched.Please check Results Review for a complete set of results. Please approve if appropriate. Thanks, Jessica Desir, PharmD Clinical Pharmacist [facility] ([facility]) [phone] 08/29/2024, 9:52 AM * Telephone Encounter - Cherie Fernandes CPhT - 08/28/2024 11:42 AM EST Did you pend patient's preferred pharmacy and medication before forwarding?yes Pharmacy: [facility] [place] [address] Pending Prescriptions: Disp Refills HYDROcodone-Acetaminophen 5-325 MG Oral T*60 Tab*0 Sig: Take 1 Tablet by mouth every 6 hours as needed for Pain, Moderate or Pain, Severe. Max 2 per day Last Visit: 06/03/2024 (in office), Visit date not found (telemedicine) Next Visit: 09/10/2024 If no future appointments scheduled, and last appointment is greater than a year ago, please schedule patient for a follow-up appointment Last date the medication was ordered: [id number] Is this request for a controlled substance?Yes, What was the last refill date [id number] w/ quantity 60 and dosage 5/325mg and Urine Drug Screen Not completed Urine Drug Screen:No results found. However, due to the size of the patient record, not all encounters were searched. Please check Results Review for a complete set of results. Patient Phone Numbers Labs: Lab Results Component Value Date/Time CREAT 0.9 05/17/2024 03:53 PM CREAT 1.3 (H) 08/31/2020 09:43 AM POTASSIUM 4.2 05/17/2024 03:53 PM POTASSIUM 5.0 08/31/2020 09:43 AM TSH [...] Care Team (Late st Contact Info) Description 09/04/2024 10:40 AM EST Office Visit [facility] [address] [place] [address] Fidel Zuniga DO [address] [place] [address] 09/10/2024 1:00 PM EST Office Visit [facility] [address] [place] [address] Dhruv Ospina MD [address] [place] [address] 09/10/2024 3:00 PM EST Office Visit Ophthalmology, [place] [address] [place] [address] Quinton Perez MD [address] [place] [address] 09/11/2024 1:40 PM EST Telemedicine [facility], [facility] [address] [place], [place] [address] Nati Broderick CRNP [address] [place] [address] Jeanie Ruiz, [facility] [employer] [address] [place] [address] 09/13/2024 1:15 PM EST Office Visit Orthopaedics Spine Surgery [facility] [address] [place] [phone] Wyatt Ly MD [address] [facility] [place] [address] 10/09/2024 11:45 AM EST Hospital Encounter ENDO [facility], Endoscopy Room [facility] [address] [place] [phone] Riki Sanchez MD [address] [place] [address] 10/09/2024 11:45 AM EST - 10/09/2024 12:15 PM EST Surgery ENDO [facility], Endoscopy Room [facility] [address] [place] [phone] Riki Sanchez MD [address] [place] [address] COLONOSCOPY FLEXIBLE PROXIMAL DIAGNOSTIC 12/20/2024 10:00 AM EDT Office Visit Cardiology, [facility] [address] [place] [address] Edward Oliver, PABrownC [address] [place] [address] 06/04/2025 9:40 AM EDT Office Visit Nephrology, Nallely Petersen [address] [place] [address] Ritchie Childress MD [address] [place] [address] 07/07/2025 11:30 AM EST Imaging Radiology [facility] [address] [place] [phone] 07/08/2025 11:00 AM EST Office Visit Rheumatology [facility] [address] [place] [address] Yeyo Barrios MD [address] [place] [address] Scheduled Procedures Name Priority Associated Diagnoses Date/Ti me COLONOSCOPY FLEXIBLE PROXIMAL DIAGNOSTIC Recall History of colon polyps 10/09/2024 11:45 AM EST Health Maintenance Due Date Last Done Comments Alpha-1 Antitrypsin 1968 Cologuard 1995 Sigmoidoscopy 1995 Fecal Occult Blood [...] exists Albumin/Creatinine Ratio 05/17/2025 024, 02/25/2022, 02/02/2021 CKD HGB USE SMARTSET 94334 05/17/202505/17, 05/17/2024, 03/12/2024, Additional history exists CKD PHOS USE SMARTSET 66972 05/17/202504/22, 07/05/2023, 03/20/2023, Additional history exists O2 ASSESSMENT COMPLETED IN PAST YEAR FOR COPD 06/18/2025 06/18/2024 DXA Scan 07/03/2025 07/03/2023, 06/21, 06/21/2021, Additional history exists DTap/Tdap Vaccines (4 - [...] D LEVEL ONCE IN A LIFETIME-USE SMARTSET# 08371 Completed 05/17/2024, 03/07/2024, 07/05/2023, Additional history exists HPV (Gardasil) Vaccine Aged Out No lo nger eligible based on patient's age to complete this topic Hepatitis B Vaccine Aged Out No longe r eligible based on patient's age to complete this topic MENINGOCOCCAL (MENACTRA/MENVEO) Aged Out No longer eligible based on patient's age to complete this topic documented as of this encounter Medical Devices Implanted Type Area Farmworker Device Identifier Shelf Expiration Date Model / Serial / Lot Dbx 5cc [id number] - [id number] - [id number] Implanted:Qty : 1 on 01/20/2021 by Wyatt Ly MD at OR [facility] Tissue - Human N/A: Spine Cervical MUSCULOSKELETAL TRANSPLANT FND [id number] 08/22/2021 [id number] / [id number] / LOT NA Vitoss Bimodal Foam Pack 10cc - [id number] - [id number] Implanted:Qty : 1 on 01/20/2021 by Wyatt Ly MD at OR [facility] N/A: Spine Cervical PAULETTE : SPINE 12/16/2021 [id number] / [id number] / [id number] 4.5 X 20mm Cortical Fixation Screw Implanted:Qty : 1 on 01/20/2021 by Wyatt Ly MD at OR [facility] N/A: Spine Cervical [employer] 1020-45-220 / / 4.5 X 22mm Cortical Fixation Screw Implanted:Qty : 1 on 01/20/2021 by Wyatt Ly MD at OR [facility] N/A: Spine Cervical [employer] 1020-45-222 / / 3.5 X 12mm Screws Implanted:Qty : 8 on 01/20/2021 by Wyatt Ly MD at OR [facility] N/A: Spine Cervical [employer] 1020-35-112 / / Set Screws Implanted:Qty : 10 on 01/20/2021 by Wyatt Ly MD at OR [facility] N/A: Spine Cervical [employer] 1020-00-000 / / 60mm Rods Implanted:Qty : 2 on 01/20/2021 by Wyatt Ly MD at OR [facility] N/A: Spine Cervical [employer] 1020-64-060 / / 1cm X 5cm Magnifuse Posterior Cervical Bone Graft (Formerly Osteotech) Implanted:Qty : 1 on 03/15/2023 by Wyatt Ly MD at OR [facility] N/A: Spine Lumbar Medtronic Sofamor Danek [id number] 01/05/2025 [id number] / [id number] / LOT NA [address] Expandable Interbody System, Interbody Cage Implanted:Qty : 2 on 03/15/2023 by Wyatt Ly MD at OR [facility] N/A: Spine Lumbar Medtronic 03/08/2030 [id number] / / [id number] 6.5 X 45 Screw Implanted:Qty : 2 on 03/15/2023 by Wyatt Ly MD at OR [facility] N/A: Spine Lumbar Medtronic [id number] / / Description:No Exp. Date, us ed out of set 6.5 X 40 Screw Implanted:Qty : 2 on 03/15/2023 by Wyatt Ly MD at OR [facility] N/A: Spine Lumbar Medtronic [id number] / / Description:No Expiration da te, used out of set 7.5 X 40 Screw Implanted:Qty : 2 on 03/15/2023 by Wyatt Ly MD at OR [facility] N/A: Spine Lumbar Medtronic [id number] / / Description:No Expiration Da te, used out of set Screw Bone Ti Set Solera 4.75m - [id number] Implanted:Qty : 6 on 03/15/2023 by Wyatt Ly MD at OR [facility] N/A: Spine Lumbar MEDTRONIC [employer] [id number] / / Description:No Expiration Da te, used out of set Anthony Sweet [place] 4.75mm Pbent 55mm - [id number] Implanted:Qty : 2 on 03/15/2023 by Wyatt Ly MD at OR [facility] N/A: Spine Lumbar MEDTRONIC : NEUROLOGIC PAIN [id number] / / 10cc Mastergraft Biologic Matrix Ext Block Implanted:Qty : 1 on 03/15/2023 by Wyatt Ly MD at OR [facility] N/A: Spine Lumbar Medtronic Sofamor Danek [id number] 11/18/2025 [id number] / [id number] / [id number] Dbx 2.5cc [id number] - [id number] - [id number] Implanted:Qty : 1 on 03/15/2023 by Wyatt Ly MD at OR [facility] N/A: Spine Lumbar MUSCULOSKELETAL TRANSPLANT FND [id number] 08/04/2024 [id number] / [id number] / LOT NA Dbx 2.5cc [id number] - [id number] - [id number] Implanted:Qty : 1 on 03/15/2023 by Wyatt Ly MD at OR [facility] N/A: Spine Lumbar MUSCULOSKELETAL TRANSPLANT FND [id number] 10/04/2024 [id number] / [id number] / LOT NA Graft Bone Infuse Kit Xsmall - [id number] - [id number] Implanted:Qty : 1 on 03/15/2023 by Wyatt Ly MD at OR [facility] N/A: Spine Lumbar MEDTRONIC : NEUROLOGIC PAIN [id number] 07/20/2024 [id number] / [id number] / [id number] documented as of this encounter Visit Diagnoses [...] in partial or unspecified remission History of KS (myocardial infarction) Old myocardial infarction COPD, group B, by GOLD 2017 classification ([facility]) Hypomagnesemia Disorders of magnesium metabolism Hypertensive heart and kidney disease without heart failure and with stage 3a chronic kidney disease (HCC)- Primary Migraine without status migrainosus, not intractable, unspecified migraine type COPD, group B, by GOLD 2017 classification ([facility]) History of KS (myocardial infarction) Old myocardial infarction Major depressive disorder, recurrent episode, in partial remission (HCC) Major depressive disorder, recurrent episode, in partial or unspecified remission Spinal stenosis of lumbar region without neurogenic claudication Spinal stenosis, lumbar region, without neurogenic claudication Advanced care planning/counseling discussion Other specified counseling 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) Other emphysema 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)- Primary COPD, [...] kidney disease (HCC) 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) Obstructive chronic bronchitis without exacerbation Hypertensive heart and kidney disease with chronic diastolic congestive heart failure and stage 3a chronic kidney disease (HCC)- Primary Chest pain, unspecified type 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
--- OUTSIDE RECORDS SUMMARY | 2024-12-27 20:19 | External Medical Summary | Summary of Care ---
Author Name Unknown Organization [facility] Address [address] [place] [address] Phone [phone] Care Team Providers Care Final Dressing Cutter Name Role Phone Hannah Ospina MD Primary Care Provider [phone] Reason for Visit * Reason Comments eRx-Medication Refill Encounter Details Date Type Department Care Team (Late st Contact Info) Description 08/15/2024 Refill [facility] [address] [place] [address] Hannah Ospina MD [address] [place] [address] COPD, moderate (HCC) Allergies Active Allergy Reactions Criticality Noted Date Comments Varenicline 12/11/2014 nausea Corticosteroids Other (Please comment) Medium 12/27/2013 Hyper, Mental Status Changes on oral steroids Dm-Apap-Cpm Anaphylaxis,Other (Please comment) High 12/27/2013 Contact dermatitis Ibuprofen Other (Please comment) Low 12/27/2013 Affects acid reflux Iodinated Contrast Media Hives 10/08/2007 Penicillins 10/09/2007 Rash documented as of this encounter (statuses as of 08/15/2024) Medications ASPIRIN 81 MG PO TABSIndications:C an [...] Hour (toPROL XL)Indications: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 Active HYDROcodone-Aceta minophen 5-325 MG Oral TabletIndications :Generalized osteoarthrosis, involving multiple sites Take 1 Tablet by mouth every 6 hours as needed for Pain, Moderate or Pain, Severe. Max 2 per day 60 Tablet 07/28/20 24 Active Albuterol Sulfate HFA 108 (90 Base) MCG/ACT Inhalation Aerosol SolutionIndicatio ns:COPD, moderate (HCC) INHALE 2 PUFFS BY MOUTH EVERY 4 HOURS NEEDED FOR WHEEZING OR SHORTNESS OF BREATH. 18 g 1 08/15/20 24 Active Albuterol Sulfate HFA 108 (90 Base) MCG/ACT Inhalation Aerosol SolutionIndicatio ns:COPD, moderate (HCC) INHALE 2 PUFFS BY MOUTH EVERY 4 HOURS NEEDED FOR WHEEZING OR SHORTNESS OF BREATH. 8 g 1 04/18/20 24 2023 Discontinued documented as of this encounter (statuses as of 08/15/2024) Active Problems Problem Noted Date Diagnosed Date [...] KATLYN-FRIDA Combination Inhaler Remote Patient Monitoring Vendor: [facility] Device(s): [employer] Scale Self-Management plan High frequency nebulizer treatments [...] Member can be directed to [facility] at [phone] M-F 8am-5pm Coronary artery disease invo lving [place] coronary artery of [place] heart with angina pectoris 11/26/2023 Assessment & [...] PM EST): Continue with zoloft History of TX (myocardial infarction) 04/25/2023 Hypertensive heart and kidne [...] in the Comments) Remote Patient Monitoring Vendor: [employer] Device(s): Connected Scale Self - Management Plan Other/Additional Comments: restart lasix daily Exacerbation Plan Anticipated IV Lasix dose: 40 mg BMP Chest X-Ray Additional Comments: Euvolemic today. Nephrology 05/17/24--new pt-[id number]--aqsje decline in renal function with lasix and [...] in the Comments) Remote Patient Monitoring Vendor: [employer] Device(s): Connected Scale Self - Management Plan [...] as of this encounter (statuses as of 08/15/2024) Resolved Problems Problem Noted Date Diagnosed Date [...] non-displaced fx right #2,3,4,5 (CT done at [facility]) MEDICATION USE AGREEMENT 12/11/201408/2017 Overview (04/05/2016): [...] as of this encounter (statuses as of 08/15/2024) Immunizations Name Administration Dates Next Due COVID-19 mRNA, LNP-s, No Pre serve, 2-Dose Series ([employer]) 12/24/2021,05/21/2021,11/04/2020,10/14 COVID-19, MRNA-LNP, PF, 30 M CG/0.3 mL, 12 YRS AND ABOVE, IM (Dafiti-Comirnaty) 06/07/2023 Covid-19, Mrna, Lnp-s, Pf, B ivalent, [...] Does the household have a [facility] source of income? (Household - for [...] encounter Miscellaneous Notes * Telephone Encounter - Angela Nails PA-C - 08/15/2024 3:59 PM ESTSigned Prescriptions: Disp Refills Albuterol Sulfate HFA 108 (90 Base) MCG/AC*18 g 1 Sig: INHALE 2 PUFFS BY MOUTH EVERY 4 HOURS NEEDED FOR WHEEZING OR SHORTNESS OF BREATH. Authorizing Provider: ANGELA NAILS * Telephone Encounter - Lorraine Jain LPN - 08/15/2024 3:49 PM EST Did you pend patient's preferred pharmacy and medication before forwarding?yes Pharmacy: [id number] [address] [place] [address] Pending Prescriptions: Disp Refills Albuterol Sulfate HFA 108 (90 Base) MCG/A* 1 Sig: INHALE 2 PUFFS BY MOUTH EVERY 4 HOURS NEEDED FOR WHEEZING OR SHORTNESS OF BREATH. Last Visit: Visit date not found (in office), 06/18/2024 (telemedicine) Next Visit: 09/11/2024 If no future appointments scheduled, and last appointment is greater than a year ago, please schedule patient for a follow-up appointment Last date the medication was ordered: 05/14/24 Is this request for a controlled substance?No [...] 03/10/2023 12:00 PM * Telephone Encounter - Gustavo Kendrick RPh - 08/15/2024 1:15 PM EST Pending Prescriptions: Disp Refills Albuterol Sulfate HFA 108 (90 Base) MCG/AC* 1 Sig: INHALE 2 PUFFS BY MOUTH EVERY 4 HOURS NEEDED FOR WHEEZING OR SHORTNESS OF BREATH. documented in this encounter Plan of Treatment Upcoming Encounters Date Type Department Care Team (Late st Contact Info) Description 09/04/2024 10:40 AM EST Office Visit Neurology [facility] [place] [address] [place] [address] Fidel Zuniga DO [address] [facility] [place] [address] 09/10/2024 1:00 PM EST Office Visit Family [facility] [address] [place], [place] [address] Hannah Ospina MD [address] [place], [place] [address] 09/10/2024 3:00 PM EST Office Visit Ophthalmology, [place] [address] [facility] [place] [address] Quinton Perez MD [address] [facility] [place] [address] 09/11/2024 1:40 PM EST Telemedicine [facility] [place], [facility] [address] [facility] [place] [address] Nati Broderick CRNP [address] [facility] [place] [address] Jeanie Ruiz, Community Health Delivery Department Supervisor [address] [place] [address] 09/13/2024 1:15 PM EST Office Visit Orthopaedics Spine [facility], [facility] [place] [address] Wyatt Ly MD [address] [place], [place] [address] [address] 10/09/2024 11:45 AM EST Hospital Encounter ENDO [facility], Endoscopy Room [facility] [address] [place] [phone] Riki Sanchez MD [address] [place] [address] 10/09/2024 11:45 AM EST - 10/09/2024 12:15 PM EST Surgery ENDO [facility], Endoscopy Room [facility] [address] [place] [phone] Riki Sanchez MD [address] [place] [address] COLONOSCOPY FLEXIBLE PROXIMAL DIAGNOSTIC 12/20/2024 10:00 AM EDT Office Visit Cardiology, [facility] [address] [place] [address] Edward Oliver PACherise [address] [place] [address] 06/04/2025 9:40 AM EDT Office Visit Nephrology, [facility] [address] [facility] [place] [address] Ritchie Childress MD [address] [facility] [place] [address] 07/07/2025 11:30 AM EST Imaging Radiology [facility] [address] [place] [phone] 07/08/2025 11:00 AM EST Office Visit Rheumatology [place] [phone] [facility] [place] [address] Yeyo Barrios MD [facility] [place] [address] Scheduled Procedures Name Priority Associated Diagnoses Date/Ti [...] 024, 02/25/2022, 02/02/2021 CKD HGB USE SMARTSET 57990 05/17/202505/17, 05/17/2024, 03/12/2024, Additional history exists CKD PHOS USE SMARTSET 52872 05/17/202504/22, 07/05/2023, 03/20/2023, Additional history exists O2 [...] D LEVEL ONCE IN A LIFETIME-USE SMARTSET# 61348 Completed 05/17/2024, 03/07/2024, 07/05/2023, Additional history exists [...] this encounter Medical Devices Implanted Type Area Powered Bridge Specialist Device Identifier Shelf Expiration Date Model / Serial / Lot Dbx 5cc [id number] - [id number] - [id number] Implanted:Qty : 1 on 01/20/2021 by Wyatt Ly MD at OR [facility] Tissue - Human N/A: Spine Cervical MUSCULOSKELETAL TRANSPLANT FND [id number] 08/22/2021 [id number] / [id number] / LOT NA Vitoss Bimodal Foam Pack 10cc - [id number] - [id number] Implanted:Qty : 1 on 01/20/2021 by Wyatt Ly MD at OR [facility] N/A: Spine Cervical PAULETTE : SPINE 12/16/2021 [id number] / [id number] / [id number] 4.5 X 20mm Cortical Fixation Screw Implanted:Qty : 1 on 01/20/2021 by Wyatt Ly MD at OR [facility] N/A: Spine Cervical [employer] 1020-45-220 / / 4.5 X 22mm Cortical Fixation Screw Implanted:Qty : 1 on 01/20/2021 by Wyatt Ly MD at OR [facility] N/A: Spine Cervical [employer] 1020-45-222 / / 3.5 X 12mm Screws Implanted:Qty : 8 on 01/20/2021 by Wyatt Ly MD at OR [facility] N/A: Spine Cervical [employer] 1020-35-112 / / Set Screws Implanted:Qty : 10 on 01/20/2021 by Wyatt Ly MD at OR [facility] N/A: Spine Cervical [employer] 1020-00-000 / / 60mm Rods Implanted:Qty : 2 on 01/20/2021 by Wyatt Ly MD at OR [facility] N/A: Spine Cervical [employer] 1020-64-060 / / 1cm X 5cm Magnifuse Posterior Cervical Bone Graft (Formerly [employer]) Implanted:Qty : 1 on 03/15/2023 by Wyatt Ly MD at OR [facility] N/A: Spine Lumbar Medtronic Jaret Aceek [id number] 01/05/2025 [id number] / [id number] / LOT [facility] Expandable Interbody System, Interbody Cage Implanted:Qty : 2 on 03/15/2023 by Wyatt Ly MD at OR [facility] N/A: Spine Lumbar Medtronic 03/08/2030 [id number] / / [id number] 6.5 X 45 Screw Implanted:Qty : 2 on 03/15/2023 by Wyatt Ly MD at OR [facility] N/A: Spine Lumbar Medtronic [id number] / / Description:No Exp. Date, us ed out of set 6.5 X 40 Screw Implanted:Qty : 2 on 03/15/2023 by Wyatt Ly MD at OR [facility] N/A: Spine Lumbar Medtronic [id number] / / Description:No Expiration da te, used out of set 7.5 X 40 Screw Implanted:Qty : 2 on 03/15/2023 by Wyatt Ly MD at OR [facility] N/A: Spine Lumbar Medtronic [id number] / / Description:No Expiration Da te, used out of set Screw Bone Ti Set Solera 4.75m - [id number] Implanted:Qty : 6 on 03/15/2023 by Wyatt Ly MD at OR [facility] N/A: Spine Lumbar MEDTRONIC [facility] [id number] / / Description:No Expiration Da te, used out of set Anhtony [place] 4.75mm Pbent 55mm - [id number] Implanted:Qty : 2 on 03/15/2023 by Wyatt Ly MD at OR [facility] N/A: Spine Lumbar [employer]TR[employer]IC : NEUROLOGIC PAIN [id number] / / 10cc Mastergraft Biologic Matrix Ext Block Implanted:Qty : 1 on 03/15/2023 by Wyatt Ly MD at OR [facility] N/A: Spine Lumbar Medtronic Jaret Hernandez [id number] 11/18/2025 [id number] / [id number] / [id number] Dbx 2.5cc [id number] - [id number] - [id number] Implanted:Qty : 1 on 03/15/2023 by Wyatt Ly MD at OR [facility] N/A: Spine Lumbar MUSCULOSKELETAL TRANSPLANT FND [id number] 08/04/2024 [id number] / [id number] / LOT NA Dbx 2.5cc [id number] - [id number] - [id number] Implanted:Qty : 1 on 03/15/2023 by Wyatt Ly MD at OR [facility] N/A: Spine Lumbar MUSCULOSKELETAL TRANSPLANT FND [id number] 10/04/2024 [id number] / [id number] / LOT NA Graft Bone Infuse Kit Xsmall - [id number] - [id number] Implanted:Qty : 1 on 03/15/2023 by Wyatt Ly MD at OR [facility] N/A: Spine Lumbar [employer] : NEUROLOGIC PAIN [id number] 07/20/2024 [id number] / [id number] / [id number] documented as of this encounter Visit Diagnoses [...] in partial or unspecified remission History of TX (myocardial infarction) Old myocardial infarction COPD, group B, by GOLD 2017 classification (HCC) Hypomagnesemia Disorders of magnesium metabolism Hypertensive heart and kidney disease without heart failure and with stage 3a chronic kidney disease (HCC)- Primary Migraine without status migrainosus, not intractable, unspecified migraine type COPD, group B, by GOLD 2017 classification (HCC) History of TX (myocardial infarction) Old myocardial infarction Major depressive disorder, recurrent episode, in partial remission (HCC) Major depressive disorder, recurrent episode, in partial or unspecified remission Spinal stenosis of lumbar region without neurogenic claudication Spinal stenosis, lumbar region, without neurogenic claudication Advanced care planning/counseling discussion Other specified counseling 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) Other emphysema Coronary artery disease involving [place] coronary artery of [place] heart with angina pectoris (HCC)- Primary COPD, [...] disease (HCC) 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) Obstructive chronic bronchitis without exacerbation Hypertensive heart and kidney disease with chronic diastolic congestive heart failure and stage 3a chronic kidney disease (HCC)- Primary Chest pain, unspecified type Coronary artery disease involving [place] coronary artery of [place] heart with angina pectoris (HCC) Dysphagia, unspecified type COPD, moderate (HCC) Chronic airway obstruction, not elsewhere classified History of colon polyps Personal history of [...] Directives occurred with: Not Discussed Care Teams Final Dressing Cutter Relationship Specialty Start Date End Date Hannah Ospina MD [address] [facility] [place] [address] PCP - General Family Medicine 04/11/24 documented as of this encounter
--- OUTSIDE RECORDS SUMMARY | 2024-12-27 20:19 | External Medical Summary | Summary of Care ---
Author Name Unknown Organization [facility] Address [address] [place] [address] Phone [phone] Care Team Providers Care R D Manager Name Role Phone Hannah Ospina MD Primary Care Provider [phone] Reason for Visit * Precert (Within 10 days (routine)) - Authorized Specialty Diagnoses / Procedures Referred By Contac t Referred To Contact Neurology Diagnoses Headache, unspecified Procedures GA INJECTION,ONABOTULINUMTOXIN A Fidel Zuniga DO [address] [place] [place] [address] Phone: tel: fax: Fidel Zuniga DO [address] [place] [place] [address] [address] Phone: tel: fax: Referral ID Status Reason Start Date Expiration Date V isits Requested Visits Authorized [id number] Authorized Precert 12/22/2023 12/22/2024 4 4 Encounter Details Date Type Department Care Team (Late st Contact Info) Description 09/04/2024 10:40 AM EST Office Visit [facility] Nunes [address] [place] [address] Fidel Zuniga DO [address] [place] [address] Intractable chronic migraine without aura and without [...] as of this encounter (statuses as of 09/04/2024) Medications ASPIRIN 81 MG PO TABSIndications:Ca n [...] Hour (toPROL XL)Indications: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) TAKE 1/2 [...] 2 per day 60 Tablet 5 Active Hospital, Clinic, or Other Facility Administered Medication Ordered Dose Route Frequency Start Date End Date Status botulinum toxin type a (Botox) inj 155 UnitsIndications:Intractabl e chronic migraine without aura and without status migrainosus 155 Units SC ONCE 09/04/2024 09/04/2024 Ended documented as of this encounter (statuses as of 09/04/2024) Active Problems Problem Noted Date Diagnosed Date [...] KATLYN-FRIDA Combination Inhaler [place] [facility] [place] Connected Scale Self-Management [...] at night. Member can be directed to [facility] at [phone] M-F 8am-5pm Coronary artery disease invo lving round [place] coronary artery of [place] heart with angina pectoris 11/26/2023 Assessment & [...] PM EST): Continue with zoloft History of [place] (myocardial infarction) 04/25/2023 Hypertensive heart and kidne [...] in the Comments) Remote Patient Monitoring Vendor: [employer] Device(s): Connected Scale Self - Management Plan Other/Additional Comments: restart lasix daily Exacerbation Plan Anticipated IV Lasix dose: 40 mg BMP Chest X-Ray Additional Comments: Euvolemic today. Nephrology 05/17/24--new pt-[id number]--kbpto decline in renal function with lasix and [...] in the Comments) Remote Patient Monitoring Vendor[place] [facility] [place](s): Connected Scale Self [...] as of this encounter (statuses as of 09/04/2024) Resolved Problems Problem Noted Date Diagnosed Date [...] non-displaced fx right #2,3,4,5 (CT done at [facility] [place]) MEDICATION USE AGREEMENT 12/11/201408/2017 Overview (04/05/2016): Started [...] as of this encounter (statuses as of 09/04/2024) Immunizations Name Administration Dates Next Due COVID-19 mRNA, LNP-s, No Pre serve, 2-Dose Series ([employer]) 12/24/2021,05/21/2021,11/04/2020,10/14 COVID-19, MRNA-LNP, PF, 30 M CG/0.3 mL, 12 YRS AND ABOVE, IM ([facility]) 06/07/2023 Covid-19, Mrna, Lnp-s, Pf, B [...] documented in this encounter Progress Notes * Fidel Zuniga, - 09/04/2024 11:21 AM EST PROCEDURE NOTE: BOTOX INJECTIONS FOR CHRONIC MIGRAINE Procedure type: 3rd Botox injection for chronic migraine Response to prior Botox: Sandy had a good response to Botox. Her headaches are less frequent and less severe. She tolerated the procedure well. She denies any adverse side effects. Preoperative: The patient was informed of the risks, benefits, and nature of this procedure. Informed consent was signed and placed in the medical chart. Procedure description: 200 unit vials of Botox were diluted with 4 cc of normal saline using a sterile technique. Alcohol swabs were used to cleanse the skin. The Onabotulinumtoxin A was administeredintramuscularly by using 27 gauge 1/2 inch needle into the following muscles: Procerus muscle, 5 units. Right and left manager warehouse muscles, 5 units each for a total of 2 injection sites(10 units total) Right and left frontalis muscles, 5 units each for a total of 4 injection sites(20 units total) Right and left temporalis muscles, 5 units each for a total of 8 injection sites(40 units total) Right and left occipitalis muscles, 5 units each for a total of 6 injection sites(30 units total). Right and left cervical paraspinal muscles, 5 units each for a total of 4 injection sites(20 units total). Right and left trapezius muscles, 5 units each for a total of 6 injection sites(30 units total). A total of 155 units of Botulinum toxin were utilized for total of 31 injection sites, 45 units of Botox were discarded. With the exception of an injection into procerus muscle, which was injected at one site, all muscles were injected bilaterally, with half of the injections administered to the left side, and the other half to the right side. Postoperative: Pressure was applied to facilitate hemostasis, no bleeding was observed. The patienttolerated the procedure well, there were no complications. Follow up: 3 month Botox injection were scheduled with the patient. Fidel Zuniga DO documented in this encounter Plan of Treatment Upcoming Encounters Date Type Department Care Team (Late st Contact Info) Description 09/10/2024 1:00 PM EST Office Visit [facility] [address] [facility] [place] [address] Hannah Ospina MD [address] [facility] [place] [address] 09/10/2024 3:00 PM EST Office Visit [facility] [address] [address] Quinton Perez MD [address] [address] 09/11/2024 1:40 PM EST [facility]medicine [facility] at [address] [place] [address] Nati Broderick CRNP [address] [place] [address] Jeanie Ruiz, Community Health Gis Mapping Technician [address] [place] [address] 09/13/2024 1:15 PM EST Office Visit Orthopaedics Spine Surgery [facility] [address] [place] [phone] Wyatt Ly MD [address] [facility] [place] [id number] 10/09/2024 11:45 AM EST Hospital Encounter ENDO [facility], Endoscopy Room [facility] [address] [place] [phone] Riki Sanchez MD [address] [place] [address] 10/09/2024 11:45 AM EST - 10/09/2024 12:15 PM EST Surgery ENDO [facility], Endoscopy Room [facility] [address] [place] [phone] Riki Sanchez MD [address] [place] [address] COLONOSCOPY FLEXIBLE PROXIMAL DIAGNOSTIC 12/20/2024 10:00 AM EDT Office Visit Cardiology, [facility] [address] [place] [address] Edward Oliver, PABrownC [address] [place] [address] 06/04/2025 9:40 AM EDT Office Visit Nephrology, [facility] [address] [place] [address] Ritchie Childress MD [address] [place] [address] 07/07/2025 11:30 AM EST Imaging Radiology [facility] [address] [place] [phone] 07/08/2025 11:00 AM EST Office Visit Rheumatology [facility] [address] [place] [phone] Yeyo Barrios MD [address] [facility] [place] [address] Scheduled Orders Name Type Priority Associated Diagnoses Orde r Schedule CHEMODENERVATION OF MUSCLES, BILATERAL Procedures Routine Intractable chronic migraine without aura and without status migrainosus Ordered: 09/04/2024 Scheduled Procedures Name Priority Associated Diagnoses Date/Ti [...] 024, 02/25/2022, 02/02/2021 CKD HGB USE SMARTSET 99072 05/17/202505/17, 05/17/2024, 03/12/2024, Additional history exists CKD PHOS USE SMARTSET 84695 05/17/202504/22, 07/05/2023, 03/20/2023, Additional history exists O2 [...] D LEVEL ONCE IN A LIFETIME-USE SMARTSET# 16417 Completed 05/17/2024, 03/07/2024, 07/05/2023, Additional history exists [...] this encounter Medical Devices Implanted Type Area Jig Boring Machine Set Up Operator Device Identifier Shelf Expiration Date Model / Serial / Lot Dbx 5cc [id number] - [id number] - [id number] Implanted:Qty : 1 on 01/20/2021 by Wyatt Ly MD at [facility] Tissue - Human N/A: Spine Cervical MUSCULOSKELETAL TRANSPLANT FND [id number] 08/22/2021 [id number] / [id number] / LOT NA Vitoss Bimodal Foam Pack 10cc - [id number] - [id number] Implanted:Qty : 1 on 01/20/2021 by Wyatt Ly MD at [facility] N/A: Spine Cervical PAULETTE : SPINE 12/16/2021 [id number] / [id number] / [id number] 4.5 X 20mm Cortical Fixation Screw Implanted:Qty : 1 on 01/20/2021 by Wyatt Ly MD at [facility] N/A: Spine Cervical [employer] 1020-45-220 / / 4.5 X 22mm Cortical Fixation Screw Implanted:Qty : 1 on 01/20/2021 by Wyatt Ly MD at [facility] N/A: Spine Cervical [employer] 1020-45-222 / / 3.5 X 12mm Screws Implanted:Qty : 8 on 01/20/2021 by Wyatt Ly MD at [facility] N/A: Spine Cervical [employer] 1020-35-112 / / Set Screws Implanted:Qty : 10 on 01/20/2021 by Wyatt Ly MD at [facility] N/A: Spine Cervical [employer] 1020-00-000 / / 60mm Rods Implanted:Qty : 2 on 01/20/2021 by Wyatt Ly MD at [facility] N/A: Spine Cervical [employer] 1020-64-060 / / 1cm X 5cm Magnifuse Posterior Cervical Bone Graft (Formerly [employer]otech) Implanted:Qty : 1 on 03/15/2023 by Wyatt Ly MD at [facility] N/A: Spine Lumbar Medtronic Sofamor Danek [id number] 01/05/2025 [id number] / [id number] / LOT NA Cataly Pl Expandable Interbody System, Interbody Cage Implanted:Qty : 2 on 03/15/2023 by yWatt Ly MD at [facility] N/A: Spine Lumbar Medtronic 03/08/2030 [id number] / / [id number] 6.5 X 45 Screw Implanted:Qty : 2 on 03/15/2023 by Wyatt Ly MD at [facility] N/A: Spine Lumbar Medtronic [id number] / / Description:No Exp. Date, us ed out of set 6.5 X 40 Screw Implanted:Qty : 2 on 03/15/2023 by Wyatt Ly MD at [facility] N/A: Spine Lumbar Medtronic [id number] / / Description:No Expiration da te, used out of set 7.5 X 40 Screw Implanted:Qty : 2 on 03/15/2023 by Wyatt Ly MD at [facility] N/A: Spine Lumbar Medtronic [id number] / / Description:No Expiration Da te, used out of set Screw Bone Ti Set Solera 4.75m - [id number] Implanted:Qty : 6 on 03/15/2023 by Wyatt Ly MD at [facility] N/A: Spine Lumbar [employer] [id number] / / Description:No Expiration Da te, used out of set Anthony Algodones 4.75mm Pbent 55mm - [id number] Implanted:Qty : 2 on 03/15/2023 by Wyatt Ly MD at [facility] N/A: Spine Lumbar MEDTRONIC : NEUROLOGIC PAIN [id number] / / 10cc Mastergraft Biologic Matrix Ext Block Implanted:Qty : 1 on 03/15/2023 by Wyatt Ly MD at [facility] N/A: Spine Lumbar Medtronic Sofamor Danek [id number] 11/18/2025 [id number] / [id number] / [id number] Dbx 2.5cc [id number] - [id number] - [id number] Implanted:Qty : 1 on 03/15/2023 by Wyatt Ly MD at [facility] N/A: Spine Lumbar MUSCULOSKELETAL TRANSPLANT FND [id number] 08/04/2024 [id number] / [id number] / LOT NA Dbx 2.5cc 750928 - [id number] - [id number] Implanted:Qty : 1 on 03/15/2023 by Wyatt Ly MD at [facility] N/A: Spine Lumbar MUSCULOSKELETAL TRANSPLANT FND [id number] 10/04/2024 841519 / [id number] / LOT NA Graft Bone Infuse Kit Xsmall - [id number] - [id number] Implanted:Qty : 1 on 03/15/2023 by Wyatt Ly MD at [facility] N/A: Spine Lumbar MEDTRONIC : NEUROLOGIC PAIN [id number] 07/20/2024 [id number] / [id number] / [id number] documented as of this encounter Visit Diagnoses [...] in partial or unspecified remission History of [place] (myocardial infarction) Old myocardial infarction COPD, group B, by GOLD 2017 classification ([facility]) Hypomagnesemia Disorders of magnesium metabolism Hypertensive heart and kidney disease without heart failure and with stage 3a chronic kidney disease (HCC)- Primary Migraine without status migrainosus, not intractable, unspecified migraine type COPD, group B, by GOLD 2017 classification ([facility]) History of [place] (myocardial infarction) Old myocardial infarction Major depressive disorder, recurrent episode, in partial remission (HCC) Major depressive disorder, recurrent episode, in partial or unspecified remission Spinal stenosis of lumbar region without neurogenic claudication Spinal stenosis, lumbar region, without neurogenic claudication Advanced care planning/counseling discussion Other specified counseling 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) Other emphysema Coronary artery disease involving [place] coronary artery of [place] heart with angina pectoris (HCC)- Primary COPD, [...] kidney disease (HCC) Coronary artery disease involving [place] coronary artery of [place] heart with angina pectoris (HCC) COPD (chronic obstructive pulmonary disease) with chronic bronchitis (HCC) Obstructive chronic bronchitis without exacerbation Hypertensive heart and kidney disease with chronic diastolic congestive heart failure and stage 3a chronic kidney disease (HCC)- Primary Chest pain, unspecified type Coronary artery disease involving [place] coronary artery of [place] heart with angina pectoris (HCC) Dysphagia, unspecified type Intractable chronic migraine without aura and without status migrainosus- Primary Chronic migraine without aura, with intractable migraine, so stated, without mention of status migrainosus History of colon polyps Personal history of colonic polyps documented in this encounter Administered Medications Inactive Administered Medications - up to 3 most recent administrations Medication Order MAR Action Action Date Dose Rate Site botulinum toxin type a (Botox) inj 155 Units 155 Units, Subcutaneous, ONCE, On Mon09/04/24 at 1230, For 1 dose, Prior to injection, reconstitute botox vial with PF sodium chloride 0.9% to desired concentration.Indications: Intractable chronic migraine without aura and without status migrainosus Given 09/04/2024 11:57 AM EST 155 Units Other-Specify documented in this encounter Advance Directives * [...] Directives occurred with: Not Discussed Care Teams R D Manager Relationship Specialty Start Date End Date Hannah Ospina MD [address] [place] [address] PCP - General Family Medicine 04/11/24 documented as of this encounter
--- OUTSIDE RECORDS SUMMARY | 2024-12-27 20:19 | External Medical Summary | Summary of Care ---
Author Name Unknown Organization [facility] Address [address] [place] [address] Phone [phone] Care Team Providers Care Non Destructive Evaluation Technician Name Role Phone Hannah Ospina MD Primary Care Provider [phone] Reason for Visit * Reason Onset Date Comments Medication Refill 08/28/2024 Encounter Details Date Type Department Care Team (Late st Contact Info) Description 08/28/2024 Refill Family Practice [facility] [address] [place] [address] Hannah Ospina MD 200 [facility] [place] [address] Allergies Active Allergy Reactions Criticality Noted Date Comments Varenicline 12/11/2014 nausea Corticosteroids Other (Please comment) Medium 12/27/2013 Hyper, Mental Status Changes on oral steroids Dm-Apap-Cpm Anaphylaxis,Other (Please comment) High 12/27/2013 Contact dermatitis Ibuprofen Other (Please comment) Low 12/27/2013 Affects acid reflux Iodinated Contrast Media Hives 10/08/2007 Penicillins 10/09/2007 Rash documented as of this encounter (statuses as of 08/28/2024) Medications ASPIRIN 81 MG PO TABSIndications:Ca n [...] Hour (toPROL XL)Indications: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 Active HYDROcodone-Acetam inophen 5-325 MG Oral TabletIndications: Generalized osteoarthrosis, involving multiple sites Take 1 Tablet by mouth every 6 hours as needed for Pain, Moderate or Pain, Severe. Max 2 per day 60 Tablet 4 Active Albuterol Sulfate HFA 108 (90 Base) MCG/ACT Inhalation Aerosol SolutionIndication s:COPD, moderate (HCC) INHALE 2 PUFFS BY MOUTH EVERY 4 HOURS NEEDED FOR WHEEZING OR SHORTNESS OF BREATH. 18 g 1 4 Active documented as of this encounter (statuses as of 08/28/2024) Active Problems Problem Noted Date Diagnosed Date [...] at night. Member can be directed to [facility] at [phone] M-F 8am-5pm Coronary artery disease invo lving [place] coronary artery of [place] heart with angina pectoris 11/26/2023 Assessment & [...] PM EST): Continue with zoloft History of [place] (myocardial infarction) 04/25/2023 Hypertensive heart and kidne [...] in the Comments) Remote Patient Monitoring Vendor: Infolinks Device(s): Connected Scale Self - Management Plan Other/Additional Comments: restart lasix daily Exacerbation Plan Anticipated IV Lasix dose: 40 mg BMP Chest X-Ray Additional Comments: Euvolemic today. Nephrology 05/17/24--new pt-[id number]--lyuou decline in renal function with lasix and [...] in the Comments) Remote Patient Monitoring Vendor: Infolinks Device(s): Connected Scale Self - Management Plan [...] as of this encounter (statuses as of 08/28/2024) Resolved Problems Problem Noted Date Diagnosed Date [...] fx right #2,3,4,5 (CT done at [facility]) MEDICATION USE AGREEMENT 12/11/201408/2017 Overview (04/05/2016): [...] Having left sciatic sx's - followed by [facility] Management documented as of this encounter (statuses as of 08/28/2024) Immunizations Name Administration Dates Next Due COVID-19 mRNA, LNP-s, No Pre serve, 2-Dose Series (Cell[employer]) 12/24/2021,05/21/2021,11/04/2020,10/14 COVID-19, MRNA-LNP, PF, 30 M CG/0.3 mL, 12 YRS AND ABOVE, IM ([employer]) 06/07/2023 Covid-19, Mrna, Lnp-s, Pf, B ivalent, [...] encounter Miscellaneous Notes * Telephone Encounter - Karen Lubin CPhT - 08/28/2024 11:40 AM EST Patient calling in regarding hydrocodone. This was last prescribed by PCP office, transferring caller to Medication Refill Line for further assistance. Thank you, Karen Lubin CPhT Registered Nurse II [facility] 08/28/2024,11:40 AM documented in this encounter Plan of Treatment Upcoming Encounters Date Type Department Care Team (Late st Contact Info) Description 09/04/2024 10:40 AM EST Office Visit Neurology [facility] [address] [facility] [place] [address] Fidel Zuniga DO [address] [facility] [place] [address] 09/10/2024 1:00 PM EST Office Visit Family Practice [facility] [address] [facility] [place] [address] Hannah Ospina MD [address] [facility] [place] [address] 09/10/2024 3:00 PM EST Office Visit Ophthalmology, [place] [address] [place] [address] Quinton Perez MD [address] [place] [address] 09/11/2024 1:40 PM EST Telemedicine [facility] [place], [address] [place] [address] Nati Broderick CRNP [address] [place] [address] Jeanie Ruiz, Community Health Seat Trimmer [address] [place] [address] 09/13/2024 1:15 PM EST Office Visit Orthopaedics Spine Surgery [facility] [address] [place] [phone] Wyatt Ly MD [address] [facility] [place] [address] 10/09/2024 11:45 AM EST Hospital Encounter ENDO [facility], Endoscopy Room [facility] [address] [place] [address] Riki Sanchez MD [address] [place] [address] 10/09/2024 11:45 AM EST - 10/09/2024 12:15 PM EST Surgery ENDO [facility], Endoscopy Room [facility] [address] [place] [phone] Riki Sanchez MD [address] [place] [address] COLONOSCOPY FLEXIBLE PROXIMAL DIAGNOSTIC 12/20/2024 10:00 AM EDT Office Visit Cardiology, [facility] [address] [place] [address] Edward Oliver, PA-C [address] [place] [address] 06/04/2025 9:40 AM EDT Office Visit Nephrology, [facility] [address] [place] [address] Ritchie Childress MD [address] [place] [address] 07/07/2025 11:30 AM EST Imaging Radiology [facility] [address] [place] [phone] 07/08/2025 11:00 AM EST Office Visit Rheumatology [facility] [address] [place] [address] Yeyo Barrios MD [address] [place] [address] Scheduled Procedures Name Priority Associated Diagnoses Date/Ti [...] 024, 02/25/2022, 02/02/2021 CKD HGB USE SMARTSET 57686 05/17/202505/17, 05/17/2024, 03/12/2024, Additional history exists CKD PHOS USE SMARTSET 72568 05/17/202504/22, 07/05/2023, 03/20/2023, Additional history exists O2 [...] D LEVEL ONCE IN A LIFETIME-USE SMARTSET# 88760 Completed 05/17/2024, 03/07/2024, 07/05/2023, Additional history exists [...] this encounter Medical Devices Implanted Type Area Handbook Writer Device Identifier Shelf Expiration Date Model / Serial / Lot Dbx 5cc [id number] - [id number] - [id number] Implanted:Qty : 1 on 01/20/2021 by Wyatt Ly MD at OR [facility] Tissue - Human N/A: Spine Cervical MUSCULOSKELETAL TRANSPLANT FND [id number] 08/22/2021 090035 / [id number] / LOT NA Vitoss Bimodal Foam Pack 10cc - [id number] - [id number] Implanted:Qty : 1 on 01/20/2021 by Wyatt Ly MD at OR [facility] N/A: Spine Cervical PAULETTE : SPINE 12/16/2021 [id number] / [id number] / [id number] 4.5 X 20mm Cortical Fixation Screw Implanted:Qty : 1 on 01/20/2021 by Wyatt Ly MD at OR [facility] N/A: Spine Cervical [employer] INC 1020-45-220 / / 4.5 X 22mm Cortical Fixation Screw Implanted:Qty : 1 on 01/20/2021 by Wyatt Ly MD at OR [facility] N/A: Spine Cervical DEPU[employer] SP[employer] INC 1020-45-222 / / 3.5 X 12mm Screws Implanted:Qty : 8 on 01/20/2021 by Wyatt Ly MD at OR [facility] N/A: Spine Cervical DEPU[employer] SP[employer] INC 1020-35-112 / / Set Screws Implanted:Qty : 10 on 01/20/2021 by Wyatt Ly MD at OR [facility] N/A: Spine Cervical DEPUY SPINE INC 1020-00-000 / / 60mm Rods Implanted:Qty : 2 on 01/20/2021 by Wyatt Ly MD at OR [facility] N/A: Spine Cervical DEPUY SPINE INC 1020-64-060 / / 1cm X 5cm Magnifuse Posterior Cervical Bone Graft (Formerly Osteotech) Implanted:Qty : 1 on 03/15/2023 by Wyatt Ly MD at OR [facility] N/A: Spine Lumbar Medtronic Sofamor Danek [id number] 01/05/2025 [id number] / [id number] / LOT NA Catalyft Pl Expandable Interbody System, Interbody Cage Implanted:Qty : 2 on 03/15/2023 by Wyatt Ly MD at OR [facility] N/A: Spine Lumbar Medtronic 03/08/2030 [id number] / / [id number] 6.5 X 45 Screw Implanted:Qty : 2 on 03/15/2023 by Wyatt Ly MD at OR [facility] N/A: Spine Lumbar Medtronic [id number] / / Description:No Exp. Date, us ed out of set 6.5 X 40 Screw Implanted:Qty : 2 on 03/15/2023 by Wyatt Ly MD at OR [facility] N/A: Spine Lumbar Medtronic [id number] / / Description:No Expiration da te, used out of set 7.5 X 40 Screw Implanted:Qty : 2 on 03/15/2023 by Wyatt Ly MD at OR [facility] N/A: Spine Lumbar Medtronic [id number] / / Description:No Expiration Da te, used out of set Screw Bone Ti Set Solera 4.75m - [id number] Implanted:Qty : 6 on 03/15/2023 by Wyatt Ly MD at OR [facility] N/A: Spine Lumbar MEDTRONIC [employer] [id number] / / Description:No Expiration Da te, used out of set Anthony [place] 4.75mm Pbent 55mm - [id number] Implanted:Qty : 2 on 03/15/2023 by Wyatt Ly MD at OR [facility] N/A: Spine Lumbar MEDTRONIC : NEUROLOGIC PAIN [id number] / / 10cc Mastergraft Biologic Matrix Ext Block Implanted:Qty : 1 on 03/15/2023 by Wyatt Ly MD at OR [facility] N/A: Spine Lumbar Medtronic Sofamor Danek [id number] 11/18/2025 [id number] / [id number] / [id number] Dbx 2.5cc 687398 - [id number] - [id number] Implanted:Qty : 1 on 03/15/2023 by Wyatt Ly MD at OR [facility] N/A: Spine Lumbar MUSCULOSKELETAL TRANSPLANT FND [id number] 08/04/2024 369483 / [id number] / LOT NA Dbx 2.5cc 579479 - [id number] - [id number] Implanted:Qty : 1 on 03/15/2023 by Wyatt Ly MD at OR [facility] N/A: Spine Lumbar MUSCULOSKELETAL TRANSPLANT FND [id number] 10/04/2024 328310 / [id number] / LOT NA Graft Bone Infuse Kit Xsmall - [id number] - [id number] Implanted:Qty : 1 on 03/15/2023 by Wyatt Ly MD at OR [facility] N/A: Spine Lumbar MEDTRONIC : NEUROLOGIC PAIN [id number] 07/20/2024 [id number] / [id number] / [id number] documented as of this encounter Advance Directives [...] Directives occurred with: Not Discussed Care Teams Non Destructive Evaluation Technician Relationship Specialty Start Date End Date Hannah Ospina MD [address] [place] [address] PCP - General Family Medicine 04/11/24 documented as of this encounter
--- OUTSIDE RECORDS SUMMARY | 2024-12-27 20:19 | External Medical Summary | Summary of Care ---
Author Name Unknown Organization [facility] Address [address] [place] [address] Phone [phone] Care Team Providers Care Electrician Ship Name Role Phone Hannah Ospina MD Primary Care Provider [phone] Encounter Details Date Type Department Care Team (Late st Contact Info) Description 07/30/2024 Orders Only Unspecified Department Cedric Downey III, MD [address] [place] [address] Allergies Active Allergy Reactions Criticality Noted Date Comments Varenicline 12/11/2014 nausea Corticosteroids Other (Please comment) Medium 12/27/2013 Hyper, Mental Status Changes on oral steroids Dm-Apap-Cpm Anaphylaxis,Other (Please comment) High 12/27/2013 Contact dermatitis Ibuprofen Other (Please comment) Low 12/27/2013 Affects acid reflux Iodinated Contrast Media Hives 10/08/2007 Penicillins 10/09/2007 Rash documented as of this encounter (statuses as of 07/30/2024) Medications ASPIRIN 81 MG PO TABSIndications:Ca n [...] 100 Capsule 3 4 Active Albuterol Sulfate HFA 108 (90 Base) MCG/ACT Inhalation Aerosol SolutionIndication s:COPD, moderate (HCC) INHALE 2 PUFFS BY MOUTH EVERY 4 HOURS NEEDED FOR WHEEZING OR SHORTNESS OF BREATH. 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 Member can be directed to [facility] at [phone] M-F 8am-5pm Coronary artery disease invo lving [place] coronary artery of [place] heart with angina pectoris 11/26/2023 Assessment & [...] PM EST): Continue with zoloft History of [place] (myocardial infarction) 04/25/2023 Hypertensive heart and kidne [...] in the Comments) Remote Patient Monitoring Vendor: DropThought Device(s): Connected Scale Self - Management Plan Other/Additional Comments: restart lasix daily Exacerbation Plan Anticipated IV Lasix dose: 40 mg BMP Chest X-Ray Additional Comments: Euvolemic today. Nephrology 05/17/24--new pt-[id number]--adkii decline in renal function with lasix and [...] in the Comments) Remote Patient Monitoring Vendor: DropThought Device(s): Connected Scale Self - Management Plan [...] as of this encounter (statuses as of 07/30/2024) Resolved Problems Problem Noted Date Diagnosed Date [...] [facility]) MEDICATION USE AGREEMENT 12/11/201408/2017 Overview (04/05/2016): Started [...] Having left sciatic sx's - followed by [facility] Management documented as of this encounter (statuses as of 07/30/2024) Immunizations Name Administration Dates Next Due COVID-19 mRNA, LNP-s, No Pre serve, 2-Dose Series ([email or web address]) 12/24/2021,05/21/2021,11/04/2020,10/14 COVID-19, MRNA-LNP, PF, 30 M CG/0.3 mL, 12 YRS AND ABOVE, IM (Interventional Spine-Comirnat) 06/07/2023 Covid-19, Mrna, Lnp-s, Pf, B ivalent, 30 Mcg, IM, 12 yrs and above ([email or web address]) 05/09/2022 PPD 10/25/2021 Pneumococcal Conjugate Vacc, 13 [...] 09/04/2024 10:40 AM EST Office Visit Neurology [facility] [address] [facility] [place] [address] Fidel Zuniga DO [address] [facility] [place] [address] 09/10/2024 1:00 PM EST Office Visit Family Practice [facility] [address] [facility] [place] [address] Hannah Ospina MD [address] [facility] [place] [address] 09/10/2024 3:00 PM EST Office Visit Ophthalmology, [place] [address] [place] [address] Quinton Perez MD [address] [facility] [place] [address] 09/11/2024 1:40 PM EST Telemedicine [facility] [address] [place] [address] Nati Broderick CRNP [address] [place] [address] Jeanie Ruiz, Community Health Associate Professor Of Chemistry [address] [place] [address] 09/13/2024 1:15 PM EST Office Visit Orthopaedics Spine Surgery, [facility] [address] [place] [address] Wyatt Ly MD [address] [place] [address] [place] [address] 10/09/2024 11:45 AM EST Hospital Encounter ENDO [facility], Endoscopy Room [facility] [address] [place] [phone] Riki Sanchez MD [address] [place] [address] 10/09/2024 11:45 AM EST - 10/09/2024 12:15 PM EST Surgery ENDO [facility], Endoscopy Room [facility] [address] [place] [address] Riki Sanchez MD [address] [place] [address] COLONOSCOPY FLEXIBLE PROXIMAL DIAGNOSTIC 12/20/2024 10:00 AM EDT Office Visit Cardiology, [facility] [address] [place] [address] Edward Oliver PA-C [address] [place] [address] 06/04/2025 9:40 AM EDT Office Visit Nephrology, [facility] [address] [facility] [address] [place] [address] Ritchie Childress MD [address] [facility] [place] [address] 07/07/2025 11:30 AM EST Imaging Radiology, [address] [place] [address] 07/08/2025 11:00 AM EST Office Visit Rheumatology [place] [address] [facility] [place] [address] Yeyo Barrios MD [address] [place] [address] [place] [address] Scheduled Procedures Name Priority Associated Diagnoses Date/Ti [...] 024, 02/25/2022, 02/02/2021 CKD HGB USE SMARTSET 37669 05/17/202505/17, 05/17/2024, 03/12/2024, Additional history exists CKD PHOS USE SMARTSET 58539 05/17/202504/22, 07/05/2023, 03/20/2023, Additional history exists O2 [...] D LEVEL ONCE IN A LIFETIME-USE SMARTSET# 14651 Completed 05/17/2024, 03/07/2024, 07/05/2023, Additional history exists [...] this encounter Medical Devices Implanted Type Area Specialized Developer Device Identifier Shelf Expiration Date Model / Serial / Lot Dbx 5cc [id number] - [id number] - [id number] Implanted:Qty : 1 on 01/20/2021 by Wyatt Ly MD at OR [facility] Tissue - Human N/A: Spine Cervical MUSCULOSKELETAL TRANSPLANT FND [id number] 08/22/2021 [id number] / [id number] / LOT NA Vitoss Bimodal Foam Pack 10cc - [id number] - [id number] Implanted:Qty : 1 on 01/20/2021 by Wyatt Ly MD at OR [facility] N/A: Spine Cervical PAULETTE : SPINE 12/16/2021 4501-8064 / [id number] / [id number] 4.5 X 20mm Cortical Fixation Screw Implanted:Qty : 1 on 01/20/2021 by Wyatt Ly MD at OR [facility] N/A: Spine Cervical DEPUY SPINE INC 1020-45-220 / / 4.5 X 22mm Cortical Fixation Screw Implanted:Qty : 1 on 01/20/2021 by Wyatt Ly MD at OR [facility] N/A: Spine Cervical DEPUY SPINE INC 1020-45-222 / / 3.5 X 12mm Screws Implanted:Qty : 8 on 01/20/2021 by Wyatt Ly MD at OR [facility] N/A: Spine Cervical DEPUY SPINE INC 1020-35-112 / / Set Screws Implanted:Qty : 10 on 01/20/2021 by Wyatt Ly MD at OR [facility] N/A: Spine Cervical DEPUY SPINE INC 1020-00-000 / / 60mm Rods Implanted:Qty : 2 on 01/20/2021 by Wyatt Ly MD at OR [facility] N/A: Spine Cervical DEPUY SPINE INC 1020-64-060 / / 1cm X 5cm Magnifuse Posterior Cervical Bone Graft (Formerly Osteotech) Implanted:Qty : 1 on 03/15/2023 by Wyatt Ly MD at OR [facility] N/A: Spine Lumbar Medtronic [employer] Networksek [id number] 01/05/2025 [id number] / [id number] / LOT NA Catalyft Pl Expandable Interbody System, Interbody Cage Implanted:Qty : 2 on 03/15/2023 by Wyatt Ly MD at OR [facility] N/A: Spine Lumbar Medtronic 03/08/2030 [id number] / / [id number] 6.5 X 45 Screw Implanted:Qty : 2 on 03/15/2023 by Wyatt Ly MD at OR [facility] N/A: Spine Lumbar Medtronic [id number] / / Description:No Exp. Date, us ed out of set 6.5 X 40 Screw Implanted:Qty : 2 on 03/15/2023 by Wyatt Ly MD at OR [facility] N/A: Spine Lumbar Medtronic [id number] / / Description:No Expiration da te, used out of set 7.5 X 40 Screw Implanted:Qty : 2 on 03/15/2023 by Wyatt Ly MD at OR [facility] N/A: Spine Lumbar Medtronic [id number] / / Description:No Expiration Da te, used out of set Screw Bone Ti Set Solera 4.75m - [id number] Implanted:Qty : 6 on 03/15/2023 by Wyatt Ly MD at OR [facility] N/A: Spine Lumbar MEDTRONIC [facility] [id number] / / Description:No Expiration Da te, used out of set Anthony Irving 4.75mm Pbent 55mm - [id number] Implanted:Qty : 2 on 03/15/2023 by Wyatt Ly MD at OR [facility] N/A: Spine Lumbar MEDTRONIC : NEUROLOGIC PAIN [id number] / / 10cc Mastergraft Biologic Matrix Ext Block Implanted:Qty : 1 on 03/15/2023 by Wyatt Ly MD at OR [facility] N/A: Spine Lumbar Medtronic Sofamor Danek [id number] 11/18/2025 0568443 / [id number] / [id number] Dbx 2.5cc 188464 - [id number] - [id number] Implanted:Qty : 1 on 03/15/2023 by Wyatt Ly MD at OR [facility] N/A: Spine Lumbar MUSCULOSKELETAL TRANSPLANT FND [id number] 08/04/2024 394015 / [id number] / LOT NA Dbx 2.5cc 346681 - [id number] - [id number] Implanted:Qty : 1 on 03/15/2023 by Wyatt Ly MD at OR [facility] N/A: Spine Lumbar MUSCULOSKELETAL TRANSPLANT FND [id number] 10/04/2024 947365 / [id number] / LOT NA Graft Bone Infuse Kit Xsmall - [id number] - [id number] Implanted:Qty : 1 on 03/15/2023 by Wyatt Ly MD at OR [facility] N/A: Spine Lumbar MEDTRONIC : NEUROLOGIC PAIN [id number] 07/20/2024 [id number] / [id number] / [id number] documented as of this encounter Procedures Procedure Name Priority Date/Time Associated Diagnosis Comments NM MYOCARDIAL PERFUSION IMAGING SPECT MULTIPLE STUDIES WITH PHARMACOLOGIC INTERVENTION Routine 07/30/2024 12:21 PM EST documented in this encounter Results * NM MYOCARDIAL PERFUSION IMAGING SPECT MULTIPLE STUDIES WITH PHARMACOLOGIC INTERVENTION (07/30/2024 12:21 PM EST) 07/30/2024 12:2 1 PM EST us Cedric Downey III, MD RAD NUCLEAR MED Final Resul t [facility] documented in this encounter Advance Directives * [...] Directives occurred with: Not Discussed Care Teams Electrician Ship Relationship Specialty Start Date End Date Hannah Ospina MD [address] [place] [address] PCP - General Family Medicine 04/11/24 documented as of this encounter
--- OUTSIDE RECORDS SUMMARY | 2024-12-27 20:19 | External Medical Summary | Summary of Care ---
Author Name Unknown Organization [facility] Address [address] [place] [address] Phone [phone] Care Team Providers Care Heel Stiffener Name Role Phone Hannah Ospina MD Primary Care Provider [phone] Encounter Details Date Type Department Care Team (Late st Contact Info) Description 09/09/2024 Population Health External Data Unspecified Department Allergies Active Allergy Reactions Criticality Noted Date Comments Varenicline 12/11/2014 nausea Corticosteroids Other (Please comment) Medium 12/27/2013 Hyper, Mental Status Changes on oral steroids Dm-Apap-Cpm Anaphylaxis,Other (Please comment) High 12/27/2013 Contact dermatitis Ibuprofen Other (Please comment) Low 12/27/2013 Affects acid reflux Iodinated Contrast Media Hives 10/08/2007 Penicillins 10/09/2007 Rash documented as of this encounter (statuses as of 09/09/2024) Medications ASPIRIN 81 MG PO TABSIndications:Ca n [...] Hour (toPROL XL)Indications:Cor onary artery disease involving ram[place] coronary artery of ramona heart with angina pectoris (HCC) TAKE 1/2 [...] as of this encounter (statuses as of 09/09/2024) Active Problems Problem Noted Date Diagnosed Date [...] rest Cough Medication Regimen Class A - KATYLN-FRIDA Combination Inhaler Remote Patient Monitoring Vendor: [facility] [place] [place] Device(s): Connected Scale Self-Management plan High [...] [facility] at [phone] M-F 8am-5pm Coronary artery disease invo lving ramona coronary artery of ramona heart with angina pectoris 11/26/2023 Assessment & [...] PM EST): Continue with zoloft History of MD (myocardial infarction) 04/25/2023 Hypertensive heart and kidne [...] in the Comments) Remote Patient Monitoring Vendor: [facility] [place] [place] Device(s): Connected Scale Self - Management Plan Other/Additional Comments: restart lasix daily Exacerbation Plan Anticipated IV Lasix dose: 40 mg BMP Chest X-Ray Additional Comments: Euvolemic today. Nephrology 05/17/24--new pt-HWY4i--bctrd decline in renal function with lasix and [...] in the Comments) Remote Patient Monitoring Vendor: [facility] [place] [place] Device(s): Connected Scale Self - Management Plan [...] as of this encounter (statuses as of 09/09/2024) Resolved Problems Problem Noted Date Diagnosed Date [...] fx right #2,3,4,5 (CT done at [facility]) MEDICATION USE AGREEMENT 12/11/201408/2017 Overview (04/05/2016): [...] sciatic sx's - followed by [facility] Management documented as of this encounter (statuses as of 09/09/2024) Immunizations Name Administration Dates Next Due COVID-19 mRNA, LNP-s, No Pre serve, 2-Dose Series (DanceTrippin) 12/24/2021,05/21/2021,11/04/2020,10/14 COVID-19, MRNA-LNP, PF, 30 M CG/0.3 mL, 12 YRS AND ABOVE, IM ([email or web address]-Comirnaty) 06/07/2023 Covid-19, Mrna, Lnp-s, Pf, B ivalent, [...] Author No 03/15/2023 2:09 PM EDT Josee eRne RN * Because of a physical, mental, [...] 1:00 PM EST Office Visit Family Practice [facility] [address] [facility] [place] [address] Hannah Ospina MD [address] [facility] [place] [address] 09/10/2024 2:30 PM EST Office Visit Ophthalmology, [facility] [address] [facility] [place] [address] Cas Santos DO [address] [place] [address] 09/11/2024 1:40 PM EST Telemedicine [facility] [place], [facility] 132 [facility] [place] [address] Nati Broderick CRNP [address] [place] [address] Jeanie Ruiz, [facility] [employer] [address] [place] [address] 09/13/2024 1:15 PM EST Office Visit Orthopaedics Spine Surgery [facility] [address] [facility] [place] [phone] Wyatt Ly MD [address] [place] [address] [place] [address] 10/09/2024 11:45 AM EST Hospital Encounter ENDO [facility], Endoscopy Room [facility] [address] [place] [phone] Riki Sanchez MD [address] [facility] [place] [address] 10/09/2024 11:45 AM EST - 10/09/2024 12:15 PM EST Surgery ENDO [facility], Endoscopy Room [facility] [address] [place] [phone] Riki Sanchez MD [address] [place] [address] COLONOSCOPY FLEXIBLE PROXIMAL DIAGNOSTIC 12/20/2024 10:00 AM EDT Office Visit Cardiology, [facility] [address] [place] [address] Edward Oliver PA-C [address] [place] [address] 06/04/2025 9:40 AM EDT Office Visit Nephrology, [facility] [address] [facility] [place] [address] Ritchie Childress MD [address] [facility] [place] [address] 07/07/2025 11:30 AM EST Imaging Radiology [facility] [address] [place] [phone] 07/08/2025 11:00 AM EST Office Visit Rheumatology [facility] [address] [place] [phone] Yeyo Barrios MD [facility] [place] [address] Scheduled Procedures Name Priority Associated Diagnoses Date/Ti [...] 024, 02/25/2022, 02/02/2021 CKD HGB USE SMARTSET 87921 05/17/202505/17, 05/17/2024, 03/12/2024, Additional history exists CKD PHOS USE SMARTSET 67724 05/17/202504/22, 07/05/2023, 03/20/2023, Additional history exists O2 [...] D LEVEL ONCE IN A LIFETIME-USE SMARTSET# 28257 Completed 05/17/2024, 03/07/2024, 07/05/2023, Additional history exists [...] this encounter Medical Devices Implanted Type Area Vice President Quality Assurance Device Identifier Shelf Expiration Date Model / Serial / Lot Dbx 5cc [id number] - [id number] - [id number] Implanted:Qty : 1 on 01/20/2021 by Wyatt Ly MD at OR [facility] Tissue - Human N/A: Spine Cervical MUSCULOSKELETAL TRANSPLANT FND [id number] 08/22/2021 [id number] / [id number] / LOT NA Vitoss Bimodal Foam Pack 10cc - [id number] - [id number] Implanted:Qty : 1 on 01/20/2021 by Wyatt Ly MD at OR [facility] N/A: Spine Cervical PAULETTE : SPINE 12/16/2021 [id number] / [id number] / [id number] 4.5 X 20mm Cortical Fixation Screw Implanted:Qty : 1 on 01/20/2021 by Wyatt Ly MD at OR [facility] N/A: Spine Cervical DEPU[employer] 1020-45-220 / / 4.5 X 22mm Cortical Fixation Screw Implanted:Qty : 1 on 01/20/2021 by Wyatt Ly MD at OR [facility] N/A: Spine Cervical DEPUY SP[employer] INC 1020-45-222 / / 3.5 X 12mm Screws Implanted:Qty : 8 on 01/20/2021 by Wyatt Ly MD at OR [facility] N/A: Spine Cervical DEPUY SPINE INC 1020-35-112 / / Set Screws Implanted:Qty : 10 on 01/20/2021 by Wyatt Ly MD at OR [facility] N/A: Spine Cervical DEPUY SPINE INC 1020-00-000 / / 60mm Rods Implanted:Qty : 2 on 01/20/2021 by Wyatt Ly MD at OR [facility] N/A: Spine Cervical DEPUY SPINE INC 1020-64-060 / / 1cm X 5cm Magnifuse Posterior Cervical Bone Graft (Formerly Osteotech) Implanted:Qty : 1 on 03/15/2023 by Wyatt Ly MD at OR [facility] N/A: Spine Lumbar Medtronic Jaret Hernandez [id number] 01/05/2025 [id number] / [id number] / LOT [facility] [address] Expandable Interbody System, Interbody Cage Implanted:Qty : 2 on 03/15/2023 by Wyatt Ly MD at OR [facility] N/A: Spine Lumbar Medtronic 03/08/2030 [id number] / / [id number] 6.5 X 45 Screw Implanted:Qty : 2 on 03/15/2023 by Wyatt Ly MD at OR [facility] N/A: Spine Lumbar Medtronic [id number] / / Description:No Exp. Date, us ed out of set 6.5 X 40 Screw Implanted:Qty : 2 on 03/15/2023 by Wyatt Ly MD at OR [facility] N/A: Spine Lumbar Medtronic [id number] / / Description:No Expiration da te, used out of set 7.5 X 40 Screw Implanted:Qty : 2 on 03/15/2023 by Wyatt Ly MD at OR [facility] N/A: Spine Lumbar Medtronic [id number] / / Description:No Expiration Da te, used out of set Screw Bone Ti Set Solera 4.75m - [id number] Implanted:Qty : 6 on 03/15/2023 by Wyatt Ly MD at OR [facility] N/A: Spine Lumbar MEDTRONIC [employer] [id number] / / Description:No Expiration Da te, used out of set Anthony [place] 4.75mm Pbent 55mm - [id number] Implanted:Qty : 2 on 03/15/2023 by Wyatt Ly MD at OR [facility] N/A: Spine Lumbar MEDTRONIC : NEUROLOGIC PAIN [id number] / / 10cc Mastergraft Biologic Matrix Ext Block Implanted:Qty : 1 on 03/15/2023 by Wyatt Ly MD at OR [facility] N/A: Spine Lumbar Medtronic Jaret Hernandez [id number] 11/18/2025 [id number] / [id number] / [id number] Dbx 2.5cc [id number] - [id number] - [id number] Implanted:Qty : 1 on 03/15/2023 by Wyatt Ly MD at OR [facility] N/A: Spine Lumbar MUSCULOSKELETAL TRANSPLANT FND [id number] 08/04/2024 [id number] / [id number] / LOT NA Dbx 2.5cc 606284 - [id number] - [id number] Implanted:Qty : 1 on 03/15/2023 by Wyatt Ly MD at OR [facility] N/A: Spine Lumbar MUSCULOSKELETAL TRANSPLANT FND [id number] 10/04/2024 [id number] / [id number] / LOT NA Graft Bone Infuse Kit Xsmall - [id number] - [id number] Implanted:Qty : 1 on 03/15/2023 by Wyatt Ly MD at OR [facility] N/A: Spine Lumbar MEDTRONIC : NEUROLOGIC PAIN [id number] 07/20/2024 [id number] / [id number] / [id number] documented as of this encounter Advance Directives [...] Directives occurred with: Not Discussed Care Teams Heel Stiffener Relationship Specialty Start Date End Date Hannah Ospina MD [address] [place] [address] PCP - General Family Medicine 04/11/24 documented as of this encounter
--- OUTSIDE RECORDS SUMMARY | 2024-12-27 20:19 | External Medical Summary | Summary of Care ---
Author Name Unknown Organization [facility] Address [address] [place] [address] Phone [phone] Care Team Providers Care Shuttlecock Feather Trimmer Name Role Phone Hannah Ospina MD Primary Care Provider [phone] Reason for Visit * Reason Onset Date Comments Medication Refill 07/26/2024 Encounter Details Date Type Department Care Team (Late st Contact Info) Description 07/26/2024 Refill Family Practice [facility] [address] [place] [address] Hannah Ospina MD [address] [facility] [place] [address] Allergies Active Allergy Reactions Criticality Noted Date Comments Varenicline 12/11/2014 nausea Corticosteroids Other (Please comment) Medium 12/27/2013 Hyper, Mental Status Changes on oral steroids Dm-Apap-Cpm Anaphylaxis,Other (Please comment) High 12/27/2013 Contact dermatitis Ibuprofen Other (Please comment) Low 12/27/2013 Affects acid reflux Iodinated Contrast Media Hives 10/08/2007 Penicillins 10/09/2007 Rash documented as of this encounter (statuses as of 07/29/2024) Medications ASPIRIN 81 MG PO TABSIndications:Ca n [...] Hour (toPROL XL)Indications: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 Active documented as of this encounter (statuses as of 07/29/2024) Active Problems Problem Noted Date Diagnosed Date [...] KATLYN-FRIDA Combination Inhaler Remote Patient Monitoring Vendor: [facility] [place] Device(s): [employer] Scale Self-Management plan High frequency nebulizer treatments [...] at night. Member can be directed to [facility] at [phone] M-F 8am-5pm Coronary artery disease invo lving [place] coronary artery of [place] heart with angina pectoris 11/26/2023 Assessment & [...] PM EST): Continue with zoloft History of PR (myocardial infarction) 04/25/2023 Hypertensive heart and kidne [...] in the Comments) Remote Patient Monitoring Vendor: [facility] [place] [facility] Device(s): Connected Scale Self - Management Plan Other/Additional Comments: restart lasix daily Exacerbation Plan Anticipated IV Lasix dose: 40 mg BMP Chest X-Ray Additional Comments: Euvolemic today. Nephrology 05/17/24--new pt-MFL5a--syxlv decline in renal function with lasix and [...] in the Comments) Remote Patient Monitoring Vendor: [facility] [place] [facility] Device(s): Connected Scale Self - Management [...] MG QAM Saw cardiology most recently on 11/28, nuclear stress test ordered Was haivng higher [...] as of this encounter (statuses as of 07/29/2024) Resolved Problems Problem Noted Date Diagnosed Date [...] (CT done at [facility]) MEDICATION USE AGREEMENT 12/11/201408/2017 Overview (04/05/2016): Started [...] left sciatic sx's - followed by [facility] Management documented as of this encounter (statuses as of 07/29/2024) Immunizations Name Administration Dates Next Due COVID-19 mRNA, LNP-s, No Pre serve, 2-Dose Series (Shot Stats) 12/24/2021,05/21/2021,11/04/2020,10/14 COVID-19, MRNA-LNP, PF, 30 M CG/0.3 mL, 12 YRS AND ABOVE, IM ([employer]-ComirnatVIVA) 06/07/2023 Covid-19, Mrna, Lnp-s, Pf, B ivalent, [...] No 05/01/2024 Does the household have a [facility] source of income? (Household - for ages [...] encounter Miscellaneous Notes * Telephone Encounter - Anahy Rudd CPhT - 07/26/2024 11:11 AM EST Patient calling in regarding Pain medication. This was last prescribed by PCP office, transferring caller to Medication Refill Line for further assistance. Thank you, Anahy Rudd CPhT Legal Consultant II [facility] 07/26/2024,11:11 AM documented in this encounter Plan of Treatment Upcoming Encounters Date Type Department Care Team (Late st Contact Info) Description 07/30/2024 12:00 PM EST Imaging [facility] 2nd Floor Cardiology, [address] [place] [address] Gw, Excess Time Radiology [address] [place] [address] 09/04/2024 10:40 AM EST Office Visit Neurology [facility] [address] [facility] [place] [address] Fidel Zuniga, [address] [facility] [place] [address] 09/10/2024 1:00 PM EST Office Visit Family Practice [facility] [address] [facility] [place] [address] Hannah Ospina MD [address] [facility] [place] [address] 09/10/2024 3:00 PM EST Office Visit Ophthalmology, [place] [address] [place] [address] Quinton Perez MD [address] [place] [address] 09/11/2024 1:40 PM EST Telemedicine [facility], [facility] [address] [place] [address] Nati Broderick CRNP [address] [place], [place] [address] Jeanie Ruiz, [facility] State Epidemiologist [address] [place] [address] 09/13/2024 1:15 PM EST Office Visit Orthopaedics Spine Surgery, [facility] [address] [place] [address] Wyatt Ly MD [address] [place] [address] [place] [address] 10/09/2024 11:45 AM EST Hospital Encounter ENDO [facility], Endoscopy Room [facility] [address] [place] [phone] Riki Sanchez MD [address] [place] [address] 10/09/2024 11:45 AM EST - 10/09/2024 12:15 PM EST Surgery ENDO [facility], Endoscopy Room [facility] [address] [place] [phone] Riki Sanchez MD [address] [place] [address] COLONOSCOPY FLEXIBLE PROXIMAL DIAGNOSTIC 12/20/2024 10:00 AM EDT Office Visit Cardiology, [facility] [address] [place] [address] Edward Oliver, PABrownC [address] [place] [address] 06/04/2025 9:40 AM EDT Office Visit Nephrology, [address] [place] [address] Ritchie Childress MD [address] [place], [place] [address] 07/07/2025 11:30 AM EST Imaging Radiology, [address] [place] [address] 07/08/2025 11:00 AM EST Office Visit Rheumatology [address] [place] [address] Yeyo Barrios MD [facility] [place] [address] Scheduled Procedures Name Priority Associated Diagnoses Date/Ti [...] 024, 02/25/2022, 02/02/2021 CKD HGB USE SMARTSET 30823 05/17/202505/17, 05/17/2024, 03/12/2024, Additional history exists CKD PHOS USE SMARTSET 08473 05/17/202504/22, 07/05/2023, 03/20/2023, Additional history exists O2 [...] D LEVEL ONCE IN A LIFETIME-USE SMARTSET# 64107 Completed 05/17/2024, 03/07/2024, 07/05/2023, Additional history exists [...] this encounter Medical Devices Implanted Type Area Public Relations Associate Device Identifier Shelf Expiration Date Model / Serial / Lot Dbx 5cc [id number] - [id number] - [id number] Implanted:Qty : 1 on 01/20/2021 by Wyatt Ly MD at OR [facility] Tissue - Human N/A: Spine Cervical MUSCULOSKELETAL TRANSPLANT FND [id number] 08/22/2021 [id number] / [id number] / LOT NA Vitoss Bimodal Foam Pack 10cc - [id number] - [id number] Implanted:Qty : 1 on 01/20/2021 by Wyatt Ly MD at OR [facility] N/A: Spine Cervical PAULETTE : SPINE 12/16/2021 0069-0150 / [id number] / [id number] 4.5 X 20mm Cortical Fixation Screw Implanted:Qty : 1 on 01/20/2021 by Wyatt Ly MD at OR [facility] N/A: Spine Cervical DE[employer] 1020-45-220 / / 4.5 X 22mm Cortical Fixation Screw Implanted:Qty : 1 on 01/20/2021 by Wyatt Ly MD at OR [facility] N/A: Spine Cervical DEPU[employer] SP[employer] INC 1020-45-222 / / 3.5 X 12mm Screws Implanted:Qty : 8 on 01/20/2021 by Wyatt Ly MD at OR [facility] N/A: Spine Cervical DEPUY SPINE INC 1020-35-112 / / Set Screws Implanted:Qty : 10 on 01/20/2021 by Wyatt Ly MD at OR [facility] N/A: Spine Cervical DEPUY SPINE INC 1020-00-000 / / 60mm Rods Implanted:Qty : 2 on 01/20/2021 by Wyatt Ly MD at OR [facility] N/A: Spine Cervical DEPUY SPINE INC 1020-64-060 / / 1cm X 5cm Magnifuse Posterior Cervical Bone Graft (Formerly Osteotech) Implanted:Qty : 1 on 03/15/2023 by Wyatt Ly MD at OR [facility] N/A: Spine Lumbar Medtronic Sofamor D[place] [id number] 01/05/2025 [id number] / [id number] / LOT NA [address] Expandable Interbody System, Interbody Cage Implanted:Qty : 2 on 03/15/2023 by Wyatt Ly MD at OR [facility] N/A: Spine Lumbar Medtronic 03/08/2030 [id number] / / [id number] 6.5 X 45 Screw Implanted:Qty : 2 on 03/15/2023 by Wyatt Ly MD at OR [facility] N/A: Spine Lumbar Medtronic [id number] / / Description:No Exp. Date, us ed out of set 6.5 X 40 Screw Implanted:Qty : 2 on 03/15/2023 by Wyatt Ly MD at OR [facility] N/A: Spine Lumbar Medtronic [id number] / / Description:No Expiration da te, used out of set 7.5 X 40 Screw Implanted:Qty : 2 on 03/15/2023 by Wyatt Ly MD at OR [facility] N/A: Spine Lumbar Medtronic [id number] / / Description:No Expiration Da te, used out of set Screw Bone Ti Set Solera 4.75m - [id number] Implanted:Qty : 6 on 03/15/2023 by Wyatt Ly MD at OR [facility] N/A: Spine Lumbar MEDTRONIC [employer] [id number] / / Description:No Expiration Da te, used out of set Anthony [place] 4.75mm Pbent 55mm - [id number] Implanted:Qty : 2 on 03/15/2023 by Wyatt Ly MD at OR [facility] N/A: Spine Lumbar MEDTRONIC : NEUROLOGIC PAIN [id number] / / 10cc Mastergraft Biologic Matrix Ext Block Implanted:Qty : 1 on 03/15/2023 by Wyatt Ly MD at OR [facility] N/A: Spine Lumbar Medtronic Sofamor Danek [id number] 11/18/2025 [id number] / [id number] / [id number] Dbx 2.5cc 164461 - [id number] - [id number] Implanted:Qty : 1 on 03/15/2023 by Wyatt Ly MD at OR [facility] N/A: Spine Lumbar MUSCULOSKELETAL TRANSPLANT FND [id number] 08/04/2024 425454 / [id number] / LOT NA Dbx 2.5cc 567278 - [id number] - [id number] Implanted:Qty : 1 on 03/15/2023 by Wyatt Ly MD at OR [facility] N/A: Spine Lumbar MUSCULOSKELETAL TRANSPLANT FND [id number] 10/04/2024 785133 / [id number] / LOT NA Graft Bone Infuse Kit Xsmall - [id number] - [id number] Implanted:Qty : 1 on 03/15/2023 by Wyatt Ly MD at OR [facility] N/A: Spine Lumbar MEDTRONIC : NEUROLOGIC PAIN [id number] 07/20/2024 [id number] / [id number] / [id number] documented as of this encounter Advance Directives [...] Directives occurred with: Not Discussed Care Teams Shuttlecock Feather Trimmer Relationship Specialty Start Date End Date Hannah Ospina MD [address] [place] [address] PCP - General Family Medicine 04/11/24 documented as of this encounter
--- OUTSIDE RECORDS SUMMARY | 2024-12-27 20:20 | External Medical Summary | Summary of Care ---
Author Name Unknown Organization [facility] Address [address] [place] [address] Phone [phone] Care Team Providers Care Museum Technician Name Role Phone Dhruv Ospina MD Primary Care Provider [phone] Reason for Visit * Reason Onset Date Comments Medication Refill 07/26/2024 Encounter Details Date Type Department Care Team (Late st Contact Info) Description 07/26/2024 Refill Family Practice [facility] [address] [place] [address] Dhruv Ospian MD [address] [facility] [address] Generalized osteoarthrosis, involving multiple sites Allergies Active Allergy Reactions Criticality Noted Date Comments Varenicline 12/11/2014 nausea Corticosteroids Other (Please comment) Medium 12/27/2013 Hyper, Mental Status Changes on oral steroids Dm-Apap-Cpm Anaphylaxis,Other (Please comment) High 12/27/2013 Contact dermatitis Ibuprofen Other (Please comment) Low 12/27/2013 Affects acid reflux Iodinated Contrast Media Hives 10/08/2007 Penicillins 10/09/2007 Rash documented as of this encounter (statuses as of 07/28/2024) Medications ASPIRIN 81 MG PO TABSIndications:Ca n [...] Capsule 3 03/13/20 24 Active Albuterol Sulfate HFA 108 (90 Base) MCG/ACT Inhalation Aerosol SolutionIndication s:COPD, moderate (HCC) INHALE 2 PUFFS BY MOUTH EVERY 4 HOURS NEEDED FOR WHEEZING OR SHORTNESS OF BREATH. 8 g 1 04/18/20 24 Active Albuterol Sulfate (2.5 MG/3ML) 0.083% [...] Hour (toPROL XL)Indications:Cor onary artery disease involving kletsel dehe w[place] coronary artery of k[place] de[place] heart with angina pectoris (HCC) TAKE 1/2 [...] per day 60 Tablet 07/28/20 24 Active HYDROcodone-Acetam inophen 5-325 MG Oral TabletIndications: Generalized osteoarthrosis, involving multiple sites Take 1 Tablet by mouth every 6 hours as needed for Pain, Moderate or Pain, Severe. Max 2 per day 60 Tablet 06/27/20 24 024 Discontin ued(Refil l) documented as of this encounter (statuses as of 07/28/2024) Active Problems Problem Noted Date Diagnosed Date [...] [facility] Device(s): Accentium Web Scale Self-Management plan High frequency nebulizer treatments [...] Member can be directed to [facility] at [phone] M-F 8am-5pm Coronary artery disease invo lving kletsel dehe [place]un coronary artery of k[place] de[place] heart with angina pectoris 11/26/2023 Assessment & [...] PM EST): Continue with zoloft History of MS (myocardial infarction) 04/25/2023 Hypertensive heart and kidne [...] in the Comments) Remote Patient Monitoring Vendor: [employer] Device(s): Connected Scale Self - Management Plan Other/Additional Comments: restart lasix daily Exacerbation Plan Anticipated IV Lasix dose: 40 mg BMP Chest X-Ray Additional Comments: Euvolemic today. Nephrology 05/17/24--new pt-NPH4w--chfrr decline in renal function with lasix and [...] in the Comments) Remote Patient Monitoring Vendor: [employer] Device(s): Connected Scale Self - Management Plan [...] as of this encounter (statuses as of 07/28/2024) Resolved Problems Problem Noted Date Diagnosed Date [...] non-displaced fx right #2,3,4,5 (CT done at [facility]) MEDICATION USE AGREEMENT 12/11/201408/2017 Overview (04/05/2016): [...] as of this encounter (statuses as of 07/28/2024) Immunizations Name Administration Dates Next Due COVID-19 mRNA, LNP-s, No Pre serve, 2-Dose Series (So[employer]uper) 12/24/2021,05/21/2021,11/04/2020,10/14 COVID-19, MRNA-LNP, PF, 30 M CG/0.3 mL, 12 YRS AND ABOVE, IM ([employer]-Comirnaty) 06/07/2023 Covid-19, Mrna, Lnp-s, Pf, B ivalent, [...] No 05/01/2024 Does the household have a [facility] source of income? (Household - for ages [...] Telephone Encounter - Dhruv Ospina MD - 07/28/2024 8:28 PM ESTSigned Prescriptions: Disp Refills HYDROcodone-Acetaminophen 5-325 MG Oral Ta*60 Tab*0 Sig: Take 1 Tablet by mouth every 6 hours as needed for Pain, Moderate or Pain, Severe. Max 2 per day Authorizing Provider: DHRUV OSPINA * Telephone Encounter - Tonya Dent RPh - 07/28/2024 9:38 AM EST Pending Prescriptions: Disp Refills HYDROcodone-Acetaminophen 5-325 MG Oral Ta*60 Tab*0 Sig: Take 1 Tablet by mouth every 6 hours as needed for Pain, Moderate or Pain, Severe. Max 2 per day * Telephone Encounter - Tonya Dent [facility] - 07/28/2024 9:37 AM EST I have reviewed the patient’s controlled substance dispensing history in the Prescription Drug Monitoring Program in compliance with the [facility] regulations before prescribing a controlled substance. PDMP checked on 07/28/2024. Pending Prescriptions: Disp Refills HYDROcodone-Acetaminophen 5-325 MG Oral T*60 Tab*0 Sig: Take 1 Tablet by mouth every 6 hours as needed for Pain, Moderate or Pain, Severe. Max 2 per day Last Visit: 06/03/2024 (in office), Visit date not found (telemedicine) Next Visit: 09/10/2024 Date medication was last filled: 06/27 Date medication is due for refill: 07/26 Pharmacy: [facility] [place] [address] Is this request for a controlled substance? Yes and Urine Drug Screen Not completed Toxicology results: No results found. However, due to the size of the patient record, not all encounters were searched.Please check Results Review for a complete set of results. Please approve if appropriate. Thank you, Tonya Dent PharmD Clinical Pharmacist [facility] ([facility]) 07/28/24 9:37 AM [phone] * Telephone Encounter - Aruna Barnard PHARM Tech - 07/26/2024 11:15 AM EST Pt requesting refill for hydrocodone-acetaminophen 5-325 mg, and [facility]. Did you pend patient's preferred pharmacy and medication before forwarding?yes [facility] [employer] [address] [place] [address] Pending Prescriptions: Disp Refills HYDROcodone-Acetaminophen 5-325 MG [...] appointment Last date the medication was ordered: 06/27/2024 Is this request for a controlled substance?Yes, What was the last refill date 06/27/2024 w/ quantity 60 and dosage 5-325 mg and Urine Drug Screen Not completed Urine [...] Info) Description 07/30/2024 12:00 PM EST Imaging [facility] 2nd Floor Cardiology, [place] [address] [place] [id number] Gw, Excess Time Radiology [address] [place] [address] 09/04/2024 10:40 AM EST Office Visit Neurology [facility] [place] [address] [place] [address] Fidel Zuniga, DO [address] [place] [address] 09/10/2024 1:00 PM EST [facility] [address] [facility] [place] [address] Dhruv Ospina MD [address] [facility] [place] [address] 09/10/2024 3:00 PM EST Office Visit Ophthalmology, [place] [address] [place] [address] Quinton Perez MD [address] [place] [address] 09/11/2024 1:40 PM EST Telemedicine [facility] [place], [facility] [address] [facility] [place] [address] Nati Broderick CRNP [address] [facility], [place] [address] Jeanie Ruiz, Community [facility] Spinner [employer] [address] [place] [address] 09/13/2024 1:15 PM EST Office Visit Orthopaedics Spine Surgery, [facility] [address] [facility] [place] [address] Wyatt Ly MD [address] [place] [address] [place] [address] 10/09/2024 11:45 AM EST Hospital Encounter ENDO [facility], Endoscopy Room [facility] [address] [place] [address] Riki Sanchez MD [address] [place] [address] 10/09/2024 11:45 AM EST - 10/09/2024 12:15 PM EST Surgery ENDO [facility], Endoscopy Room [facility] [address] [place] [address] Riki Sanchez MD [address] [place] [address] COLONOSCOPY FLEXIBLE PROXIMAL DIAGNOSTIC 12/20/2024 10:00 AM EDT Office Visit Cardiology, [facility] [address] [place] [address] Edward Oliver PA-C [address] [place] [address] 06/04/2025 9:40 AM EDT Office Visit Nephrology, [facility] [address] [facility] [place] [address] Ritchie Childress MD [address] [place] [address] 07/07/2025 11:30 AM EST Imaging Radiology, [address] [place] [address] 07/08/2025 11:00 AM EST Office Visit Rheumatology [address] [place] [address] Yeyo Barrios MD [facility] [place] [address] Scheduled Procedures Name Priority Associated Diagnoses Date/Ti [...] 024, 02/25/2022, 02/02/2021 CKD HGB USE SMARTSET 86301 05/17/202505/17, 05/17/2024, 03/12/2024, Additional history exists CKD PHOS USE SMARTSET 50930 05/17/202504/22, 07/05/2023, 03/20/2023, Additional history exists O2 [...] D LEVEL ONCE IN A LIFETIME-USE SMARTSET# 57714 Completed 05/17/2024, 03/07/2024, 07/05/2023, Additional history exists [...] Medical Devices Implanted Type Area Building Maintenance Superintendent Device Identifier Shelf Expiration Date Model / Serial / Lot Dbx 5cc [id number] - [id number] - [id number] Implanted:Qty : 1 on 01/20/2021 by Wyatt Ly MD at [facility] Tissue - Human N/A: Spine Cervical MUSCULOSKELETAL TRANSPLANT FND [id number] 08/22/2021 [id number] / [id number] / LOT NA Vitoss Bimodal Foam Pack 10cc - [id number] - [id number] Implanted:Qty : 1 on 01/20/2021 by Wyatt Ly MD at [facility] N/A: Spine Cervical PAULETTE : SPINE 12/16/2021 0815-7260 / [id number] / [id number] 4.5 X 20mm Cortical Fixation Screw Implanted:Qty : 1 on 01/20/2021 by Wyatt Ly MD at [facility] N/A: Spine Cervical [employer] 1020-45-220 / / 4.5 X 22mm Cortical Fixation Screw Implanted:Qty : 1 on 01/20/2021 by Wyatt Ly MD at [facility] N/A: Spine Cervical [employer] 1020-45-222 / / 3.5 X 12mm Screws Implanted:Qty : 8 on 01/20/2021 by Wyatt Ly MD at [facility] N/A: Spine Cervical [employer] 1020-35-112 / / Set Screws Implanted:Qty : 10 on 01/20/2021 by Wyatt Ly MD at [facility] N/A: Spine Cervical [employer] 1020-00-000 / / 60mm Rods Implanted:Qty : 2 on 01/20/2021 by Wyatt Ly MD at [facility] N/A: Spine Cervical [employer] 1020-64-060 / / 1cm X 5cm Magnifuse Posterior Cervical Bone Graft (Formerly Osteotech) Implanted:Qty : 1 on 03/15/2023 by Wyatt Ly MD at [facility] N/A: Spine Lumbar Medtronic Sofamor Danek [id number] 01/05/2025 [id number] / [id number] / LOT NA [address] Expandable Interbody System, Interbody Cage Implanted:Qty : 2 on 03/15/2023 by Wyatt Ly MD at [facility] N/A: Spine Lumbar Medtronic 03/08/2030 [id number] / / [id number] 6.5 X 45 Screw Implanted:Qty : 2 on 03/15/2023 by Wyatt Ly MD at [facility] N/A: Spine Lumbar Medtronic [id number] / / Description:No Exp. Date, us ed out of set 6.5 X 40 Screw Implanted:Qty : 2 on 03/15/2023 by Wyatt Ly MD at [facility] N/A: Spine Lumbar Medtronic [id number] / / Description:No Expiration da te, used out of set 7.5 X 40 Screw Implanted:Qty : 2 on 03/15/2023 by Wyatt Ly MD at [facility] N/A: Spine Lumbar Medtronic [id number] / / Description:No Expiration Da te, used out of set Screw Bone Ti Set Solera 4.75m - [id number] Implanted:Qty : 6 on 03/15/2023 by Wyatt Ly MD at [facility] N/A: Spine Lumbar [employer]TR[employer] [facility] [id number] / / Description:No Expiration Da te, used out of set Anthony Halstad 4.75mm Pbent 55mm - [id number] Implanted:Qty : 2 on 03/15/2023 by Wyatt Ly MD at [facility] N/A: Spine Lumbar MEDTR[employer]IC : NEUROLOGIC PAIN [id number] / / 10cc Mastergraft Biologic Matrix Ext Block Implanted:Qty : 1 on 03/15/2023 by Wyatt Ly MD at [facility] N/A: Spine Lumbar Medtronic Sofamor Danek [id number] 11/18/2025 [id number] / [id number] / [id number] Dbx 2.5cc [id number] - [id number] - [id number] Implanted:Qty : 1 on 03/15/2023 by Wyatt Ly MD at [facility] N/A: Spine Lumbar MUSCULOSKELETAL TRANSPLANT FND [id number] 08/04/2024 879180 / [id number] / LOT NA Dbx 2.5cc [id number] - [id number] - [id number] Implanted:Qty : 1 on 03/15/2023 by Wyatt Ly MD at [facility] N/A: Spine Lumbar MUSCULOSKELETAL TRANSPLANT FND [id number] 10/04/2024 [id number] / [id number] / LOT NA Graft Bone Infuse Kit Xsmall - [id number] - [id number] Implanted:Qty : 1 on 03/15/2023 by Wyatt Ly MD at [facility] N/A: Spine Lumbar [employer] : NEUROLOGIC PAIN [id number] 07/20/2024 [id number] / [id number] / [id number] documented as of this encounter Visit Diagnoses [...] COPD, group B, by GOLD 2017 classification ([facility]) Hypomagnesemia Disorders of magnesium metabolism Hypertensive heart and kidney disease without heart failure and with stage 3a chronic kidney disease (HCC)- Primary Migraine without status migrainosus, not intractable, unspecified migraine type COPD, group B, by GOLD 2017 classification ([facility]) History of MS (myocardial infarction) Old myocardial infarction Major depressive disorder, recurrent episode, in partial remission (HCC) Major depressive disorder, recurrent episode, in partial or unspecified remission Spinal stenosis of lumbar region without neurogenic claudication Spinal stenosis, lumbar region, without neurogenic claudication Advanced care planning/counseling discussion Other specified counseling 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) Other emphysema Coronary artery disease involving kletsel dehe wintun coronary artery of klet[place] de[place] heart with angina pectoris (HCC)- Primary COPD, [...] kidney disease (HCC) Coronary artery disease involving kletsel dehe [place] coronary artery of k[place] de[place] heart with angina pectoris (HCC) COPD (chronic obstructive pulmonary disease) with chronic bronchitis (HCC) Obstructive chronic bronchitis without exacerbation Hypertensive heart and kidney disease with chronic diastolic congestive heart failure and stage 3a chronic kidney disease (HCC)- Primary Chest pain, unspecified type Coronary artery disease involving kletsel dehe [place] coronary artery of kletsel de[place] heart with angina pectoris (HCC) Dysphagia, unspecified [...] Directives occurred with: Not Discussed Care Teams Museum Technician Relationship Specialty Start Date End Date Dhruv Ospina MD [address] [place] [address] PCP - General Family Medicine 04/11/24 documented as of this encounter
--- OUTSIDE RECORDS SUMMARY | 2024-12-27 20:20 | External Medical Summary | Summary of Care ---
Author Name Unknown Organization [facility] Address [address] [place] [address] Phone [phone] Care Team Providers Care Professional Advisor Name Role Phone Hannah Ospina MD Primary Care Provider [phone] Reason for Visit * Reason Comments Rheum Follow Up Follow up - [facility] Encounter Details Date Type Department Care Team (Late st Contact Info) Description 07/04/2024 9:20 AM EST Office Visit Rheumatology [place] [phone] [place] [address] Yeyo Barrios MD [facility] [employer] [place] [address] Age-related osteoporosis without current pathological fracture*; Vitamin D deficiency Allergies Active Allergy Reactions Criticality Noted Date Comments Varenicline 12/11/2014 nausea Corticosteroids Other (Please comment) Medium 12/27/2013 Hyper, Mental Status Changes on oral steroids Dm-Apap-Cpm Anaphylaxis,Other (Please comment) High 12/27/2013 Contact dermatitis Ibuprofen Other (Please comment) Low 12/27/2013 Affects acid reflux Iodinated Contrast Media Hives 10/08/2007 Penicillins 10/09/2007 Rash documented as of this encounter (statuses as of 07/04/2024) Medications ASPIRIN 81 MG PO TABSIndications:Ca n [...] Hour (toPROL XL)Indications: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 024 Discontin ued(Medic ation List Clean Up) documented as of this encounter (statuses as of 07/04/2024) Active Problems Problem Noted Date Diagnosed Date [...] Combination Inhaler Remote Patient Monitoring Vendor: [facility] Device(s): Connected Scale Self-Management plan [...] to [facility] at [phone] M-F 8am-5pm Coronary artery disease invo lving fond [place] coronary artery of [place] heart with angina pectoris 11/26/2023 Assessment & [...] PM EST): Continue with zoloft History of MN (myocardial infarction) 04/25/2023 Hypertensive heart and kidne [...] in the Comments) Remote Patient Monitoring Vendor: [employer] Device(s): Connected Scale Self - Management Plan Other/Additional Comments: restart lasix daily Exacerbation Plan Anticipated IV Lasix dose: 40 mg BMP Chest X-Ray Additional Comments: Euvolemic today. Nephrology 05/17/24--new pt-RSO4v--pegjy decline in renal function with lasix and [...] in the Comments) Remote Patient Monitoring Vendor: [employer] Device(s): Connected Scale Self - Management Plan [...] as of this encounter (statuses as of 07/04/2024) Resolved Problems Problem Noted Date Diagnosed Date [...] non-displaced fx right #2,3,4,5 (CT done at [facility]) MEDICATION USE AGREEMENT 12/11/201408/2017 Overview (04/05/2016): Started [...] as of this encounter (statuses as of 07/04/2024) Immunizations Name Administration Dates Next Due COVID-19 mRNA, LNP-s, No Pre serve, 2-Dose Series ([employer]) 12/24/2021,05/21/2021,11/04/2020,10/14 COVID-19, MRNA-LNP, PF, 30 M CG/0.3 [...] 0 [birth year]/26/1969 - 11/26/2020 Smokeless Tobacco: Never Tobacco Cessation:Counseling Given: Not Answered Alcohol Use Standard Drinks/Week Comments No 0 [...] No 05/01/2024 Does the household have a [facility] source of income? (Household - for ages [...] Sign Reading Time Taken Comments Blood Pressure - - Pulse - - Temperature 36.4 °C (97.5 °F) 07/04/2024 9:32 AM ES T Respiratory Rate - - Oxygen Saturation - - Inhaled Oxygen Concentration - - Weight 67.6 kg (149 lb) 07/04/2024 9:32 AM EST Height - - Body Mass Index 30.08 05/09/2024 9:01 AM EDT documented in this encounter Functional Status * Are you deaf or do you have serious difficulty hearing? Answer Date of Assessment Author No 03/15/2023 2:09 PM EDT Josee Rene RN * Are you blind or do you have serious difficulty seeing, even when wearing glasses? Answer Date of Assessment Author No 03/15/2023 2:09 PM Josee Kingston RN * Do you have serious difficulty walking or climbing stairs? (5 years old or older) Answer Date of Assessment Author No 03/15/2023 2:09 PM Josee Kingston RN * Do you have difficulty dressing or bathing? (5 years old or older) Answer Date of Assessment Author No 03/15/2023 2:09 PM Josee Kingston RN * Because of a physical, mental, [...] documented in this encounter Progress Notes * Yeyo Barrios MD - 07/04/2024 9:31 AM EST [facility] ([facility]): follow up Previous Visit Plan from 06/2023 reviewed. Reason for visit: Patient seen today for further follow-up/evaluation of osteoporosis. On drug holiday from Fosamax. Has taken Fosamax for over 6 years.she has had some falls - she states legs are weaker since back surgery. No fractures. She did have blood work in April in her vitamin-D was 16.They in increase the amount of vitamin-D she is taking. She has dentures so no dental health issues. She does report some numbness in feet. She is due for DEXA next fall. Bone Health Summary: Risks: Falls since last [facility] visit: yes Personal History of Fx since last [facility] Visit: no Prevention: Exercise : 3 or more times weekly: No Nutrition: eats calcium rich foods, Yes Gait: unsteady with walking, No, use of cane/walker, No, Calcium and Vitamin D supplements in adequate doses: Yes ROS: . Constitutional: normal . Ears, nose, throat, mouth: normal . Cardiovascular: normal . Respiratory: normal . Gastrointestinal: normal . Musculoskeletal: See above . Neurologic: numbness . Genitourinary: normal All other ROS reviewed and negative. Medications: Current Outpatient Medications Medication Sig Dispense Refill ASPIRIN 81 MG PO TABS 1 tablet by mouth daily Calcium Carbonate 600 MG Oral Tablet Take 1 Tablet by mouth 2 times a day with morning and evening meals. (Patient not taking: Reported on 06/21/2024) 60 Tab 5 Acetaminophen ER 650 MG [...] Take 1 Tablet by mouthin the morning. Alendronate Sodium 70 MG Oral Tablet (Fosamax) Take 1 Tablet by mouth once a week. Atorvastatin Calcium 80 MG Oral Tablet (Lipitor) TAKE 1 TABLET BY MOUTH EVERY DAY IN THE MORNING 90Tablet 3 Amitriptyline HCl 10 MG Oral Tablet (Elavil) TAKE 2 TABLETS BY MOUTH AT BEDTIME 180 Tablet 2 Omeprazole 40 MG Oral Capsule Delayed Release (PriLOSEC) TAKE 1 CAPSULE BY MOUTH EVERY DAY 100 Capsule 3 Albuterol Sulfate HFA 108 (90 Base) MCG/ACT Inhalation Aerosol Solution INHALE 2 PUFFS BY MOUTH EVERY 4 HOURS NEEDED FOR WHEEZING OR SHORTNESS OF BREATH. 8 g 1 Albuterol Sulfate (2.5 MG/3ML) 0.083% Inhalation Nebulization [...] a day on Monday and Monday only. HYDROcodone-Acetaminophen 5-325 MG Oral Tablet Take 1 Tablet by mouth every 6 hours as needed for Pain, Moderate or Pain, Severe. Max 2 per day 60 Tablet 0 No current facility-administered medications for this visit. Social History: Social History Tobacco Use Smoking status: Former Current packs/day: 0.00 Average packs/day: 0.3 packs/day for 51.0 years (12.8 ttl pk-yrs) Types: Cigarettes Start date: 11/26/1969 Quit date: 11/26/2020 Years since quittin.6 Smokeless tobacco: Never Vaping Use Vaping status: Never Used Substance Use Topics Alcohol use: No Drug use: No Physical Exam: Temp 36.4 °C (97.5 °F) (Infrared ) | Wt 67.6 kg (149 lb) | BMI 30.08 kg/m² | BSA 1.68 m² General: alert, no distress, and well nourished HENT: normocephalic, external ears normal, no mucosal erythema, no mucosal edema, moist mucosa, no oral ulcers Heart: regular rate & rhythm and no gallops Lungs: clear to auscultation , no rales, wheezes or rhonchi Abdomen: abdomen soft, non-tender, and normal bowel sounds Extremities: no clubbing, no cyanosis, positive findings: edema trace bilateral lower extremities Musculoskeletal Exam: Mild thoracic kyphosis Good muscle strength Assessment: (M81.0) Age-related osteoporosis without current pathological fracture (primary encounter diagnosis) (E55.9) Vitamin D deficiency 73 year old female with osteoporosis who is on a drug holiday from Fosamax. Will update vitamin-D level 3 months after being on increase vitamin-D supplementation. Placed order for the vitamin-D blood work. Also will order DEXA for her to get prior to her appointment next year with us. Discussed patient safety and fall reduction. Plan: The following items are ordered or are in progress: 1. Education: Osteoporosis education was provided by the [facility] team (topics included disease process, DXA, calcium/vitamin D, osteoporosis medications - including administration instructions and risks/benefits, weight bearing exercise, fall prevention/safety). 2. Prevention: . Fall Prevention/Safety Education recommended and discussed . Continue calcium rich foods (goal of 3 servings daily) 3. Osteoporosis Medications : Continue with drug holiday 4. Bone Density Testing: due 2 year(s) from previous 5. Laboratory: 25-OH Vitamin D 6. Followup: Return to [facility] clinic in 1 year Yeyo Barrios MD [facility] Team documented in this encounter Nursing Notes * Suri Dee LPN - 07/04/2024 9:30 AM EST Chief Complaint Patient presents with Rheum Follow Up Follow up - [facility] documented in this encounter Plan of Treatment Upcoming Encounters Date Type Department Care Team (Late st Contact Info) Description 07/25/2024 10:00 AM EST Imaging [facility] 2nd Floor Cardiology, [place] [address] [facility] [place] [id number] Gw, Excess Time Radiology [address] [place] [address] 09/04/2024 10:40 AM EST Office Visit Neurology [place], [place] [address] [place], [place] [address] Fidel Zuniga DO [address] [place], [place] [address] 09/06/2024 2:00 PM EST Office Visit Orthopaedics Spine Surgery, [facility] [address] [place] [address] Wyatt Ly MD [address] [place] [address] [place] [address] 09/10/2024 1:00 PM EST Office Visit Family Practice [facility] [address] [place] [address] Hannah Ospina MD [address] [place] [address] 09/11/2024 1:40 PM EST Telemedicine [facility] [address] [place] [address] Nati Broderick CRNP [address] [place] [address] Jeanie Ruiz, [facility] Health Nurse [address] [place] [address] 10/09/2024 11:45 AM EST Hospital Encounter [facility], Endoscopy Room [facility] [address] [place] [id number] Riki Sanchez MD [address] [place] [address] 10/09/2024 11:45 AM EST - 10/09/2024 12:15 PM EST Surgery ENDO [facility], Endoscopy Room [facility] [address] [place] [phone] Riki Sanchez MD [address] [place] [address] COLONOSCOPY FLEXIBLE PROXIMAL DIAGNOSTIC 12/20/2024 10:00 AM EDT Office Visit Cardiology, [facility] [address] [place] [address] Edward Oliver PA-C [address] [place] [address] 06/04/2025 9:40 AM EDT Office Visit Nephrology, [facility] [address] [facility] [place] [address] Ritchie Childress MD [address] [facility] [facility] [place] [address] 07/07/2025 11:30 AM EST Imaging Radiology, [address] [place] [address] 07/08/2025 11:00 AM EST Office Visit Rheumatology [address] [place] [address] Yeyo Barrios MD [facility] [place] [address] Scheduled Orders Name Type Priority Associated Diagnoses Orde r Schedule 25-HYDROXY VITAMIN D Lab Routine Age-related osteoporosis without current pathological fracture Vitamin D deficiency Expected: 07/04/2024, Expires: 07/04/2025 DEXA SCAN/BONE MINERAL AXIAL Medical Imaging Routine Age-related osteoporosis without current pathological fracture Ordered: 07/04/2024 Scheduled Procedures Name Priority Associated Diagnoses Date/Ti me COLONOSCOPY FLEXIBLE PROXIMAL DIAGNOSTIC Recall History of colon polyps 10/09/2024 11:45 AM EST Health Maintenance Due Date Last Done Comments Alpha-1 Antitrypsin 1968 Cologuard 1995 Sigmoidoscopy 1995 Fecal Occult Blood Test 09/22/1999 09/22/1998 Adult Wellness Visit 2016 Depression Monitoring 10/29/2022 10/29/2021 Colonoscopy 03/19/2023 03/19/2018, 02/20, 02/27/2018, Additional history exists Colorectal Cancer Screening 03/19/2023 COVID-19 Vaccine ( season) 2024 05/24/2024, 07/09/2023, 06/07/2023, Additional history exists GFR 11/14/2024 05/17/2024, 02/19, 03/07/2024, Additional history exists Mammogram 02/08/2025 02/09/2024, 01/20, 12/06/2022, Additional history exists Albumin/Creatinine Ratio 05/17/2025 024, 02/25/2022, 02/02/2021 CKD HGB USE SMARTSET 37487 05/17/202505/17, 05/17/2024, 03/12/2024, Additional history exists CKD PHOS USE SMARTSET 60147 05/17/202504/22, 07/05/2023, 03/20/2023, Additional history exists O2 [...] D LEVEL ONCE IN A LIFETIME-USE SMARTSET# 28354 Completed 05/17/2024, 03/07/2024, 07/05/2023, Additional history exists [...] encounter Medical Devices Implanted Type Area Technical Support Engineer Device Identifier Shelf Expiration Date Model / Serial / Lot Dbx 5cc [id number] - [id number] - [id number] Implanted:Qty : 1 on 01/20/2021 by Wyatt Ly MD at [facility] Tissue - Human N/A: Spine Cervical MUSCULOSKELETAL TRANSPLANT FND [id number] 08/22/2021 [id number] / [id number] / LOT NA Vitoss Bimodal Foam Pack 10cc - [id number] - [id number] Implanted:Qty : 1 on 01/20/2021 by Wyatt Ly MD at [facility] N/A: Spine Cervical PAULETTE : SPINE 12/16/[id number] / [id number] / [id number] 4.5 X 20mm Cortical Fixation Screw Implanted:Qty : 1 on 01/20/2021 by Wyatt Ly MD at [facility] N/A: Spine Cervical [employer] 1020-45-220 / / 4.5 X 22mm Cortical Fixation Screw Implanted:Qty : 1 on 01/20/2021 by Wyatt Ly MD at [facility] N/A: Spine Cervical [employer] 1020-45-222 / / 3.5 X 12mm Screws Implanted:Qty : 8 on 01/20/2021 by Wyatt Ly MD at [facility] N/A: Spine Cervical [employer] 1020-35-112 / / Set Screws Implanted:Qty : 10 on 01/20/2021 by Wyatt Ly MD at [facility] N/A: Spine Cervical [employer] 1020-00-000 / / 60mm Rods Implanted:Qty : 2 on 01/20/2021 by Wyatt Ly MD at [facility] N/A: Spine Cervical [employer] 1020-64-060 / / 1cm X 5cm Magnifuse Posterior Cervical Bone Graft (Formerly [employer]) Implanted:Qty : 1 on 03/15/2023 by Wyatt Ly MD at [facility] N/A: Spine Lumbar Medtronic Jaret Hernandez [id number] 01/05/2025 [id number] / [id number] / LOT [address] [address] Expandable Interbody System, Interbody Cage Implanted:Qty : 2 on 03/15/2023 by Wyatt Ly MD at [facility] N/A: Spine Lumbar Medtronic 03/08/2030 [id number] / / [id number] 6.5 X 45 Screw Implanted:Qty : 2 on 03/15/2023 by Wyatt Ly MD at [facility] N/A: Spine Lumbar Medtronic [id number] / / Description:No Exp. Date, us ed out of set 6.5 X 40 Screw Implanted:Qty : 2 on 03/15/2023 by Wyatt Ly MD at [facility] N/A: Spine Lumbar Medtronic [id number] / / Description:No Expiration da te, used out of set 7.5 X 40 Screw Implanted:Qty : 2 on 03/15/2023 by Wyatt Ly MD at [facility] N/A: Spine Lumbar Medtronic [id number] / / Description:No Expiration Da te, used out of set Screw Bone Ti Set Solera 4.75m - [id number] Implanted:Qty : 6 on 03/15/2023 by Wyatt Ly MD at [facility] N/A: Spine Lumbar [employer] [facility] [id number] / / Description:No Expiration Da te, used out of set [place] [employer] 4.75mm Pbent 55mm - [id number] Implanted:Qty : 2 on 03/15/2023 by Wyatt Ly MD at [facility] N/A: Spine Lumbar MEDTRONIC : NEUROLOGIC PAIN [id number] / / 10cc Mastergraft Biologic Matrix Ext Block Implanted:Qty : 1 on 03/15/2023 by Wyatt Ly MD at [facility] N/A: Spine Lumbar Medtronic Jaret Hernandez [id number] 11/18/2025 [id number] / [id number] / [id number] Dbx 2.5cc [id number] - [id number] - [id number] Implanted:Qty : 1 on 03/15/2023 by Wyatt Ly MD at [facility] N/A: Spine Lumbar MUSCULOSKELETAL TRANSPLANT FND [id number] 08/04/2024 [id number] / [id number] / LOT NA Dbx 2.5cc [id number] - [id number] - [id number] Implanted:Qty : 1 on 03/15/2023 by Wyatt Ly MD at [facility] N/A: Spine Lumbar MUSCULOSKELETAL TRANSPLANT FND [id number] 10/04/2024 614659 / [id number] / LOT NA Graft Bone Infuse Kit Xsmall - [id number] - [id number] Implanted:Qty : 1 on 03/15/2023 by Wyatt Ly MD at [facility] N/A: Spine Lumbar MEDTRONIC : NEUROLOGIC PAIN [id number] 07/20/2024 [id number] / [id number] / [id number] documented as of this encounter Visit Diagnoses [...] group B, by GOLD 2017 classification ([facility]) Hypomagnesemia Disorders of magnesium metabolism Hypertensive heart and kidney disease without heart failure and with stage 3a chronic kidney disease (HCC)- Primary Migraine without status migrainosus, not intractable, unspecified migraine type COPD, group B, by GOLD 2017 classification ([facility]) History of MN (myocardial infarction) Old myocardial infarction Major depressive disorder, recurrent episode, in partial remission (HCC) Major depressive disorder, recurrent episode, in partial or unspecified remission Spinal stenosis of lumbar region without neurogenic claudication Spinal stenosis, lumbar region, without neurogenic claudication Advanced care planning/counseling discussion Other specified counseling 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) Other emphysema Coronary artery disease involving [place] coronary artery of [place] heart with angina pectoris (HCC)- Primary COPD, [...] kidney disease (HCC) 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) Obstructive chronic bronchitis without exacerbation Hypertensive heart and kidney disease with chronic diastolic congestive heart failure and stage 3a chronic kidney disease (HCC)- Primary Chest pain, unspecified type Coronary artery disease involving [place] coronary artery of [place] heart with angina pectoris (HCC) Dysphagia, unspecified type Age-related osteoporosis without current pathological fracture- Primary Senile osteoporosis Vitamin D deficiency Unspecified vitamin D deficiency History of colon polyps Personal history of [...] Directives occurred with: Not Discussed Care Teams Professional Advisor Relationship Specialty Start Date End Date Hannah Ospina MD [address] [place] [address] PCP - General Family Medicine 04/11/24 documented as of this encounter
--- NOTE | 2024-12-27 22:06 | History & Physical Report ---
Date of Service December 27, 2024 Assessment & Plan (1) Chest pain: Plan: 74-year-old female with past medical history significant for COPD, dyslipidemia, nocturnal hypoxemia due to emphysema, history of CAD, history of chronic heart failure with preserved ejection fraction, history of hypertension, GERD, history dysphagia, CKD stage III, osteoarthritis, migraine, depression, general anxiety disorder, lumbar spinal stenosis, adjustment disorder with anxious mood comes in because of chest pain and dizziness. Patient states around 1:30 PM she noticed left-sided chest pain sharp in nature and 6/10 in severity. No radiation. She also felt slight dizzy and she has to lean to the wall and slowly lowered down. Patient states in the ER she stood couple of times but there was no dizziness. Currently chest pain is minimal. Denies any shortness of breath. Once in a while she gets sweating. Vision is not great. Sometimes get headaches but currently no headache. No runny nose. No sore throat. Appetite is okay. No nausea. No abdominal pain. Normal bowel and bladder movements. Currently hemodynamics are okay. Chest pain Initial troponin is negative and EKG unremarkable Will follow serial cardiac enzymes and echo N.p.o. after midnight Telemetry Cardiac consult Dizziness Will follow echo ct head ok Orthostatics Aortic mural thrombus CTA chest: 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 cause about 20-30% luminal narrowing. Vascular surgery was notified by the ER Will consult vascular surgery in a.m. for further recommendation Nonobstructive CAD Cardiac cath in January 2020 On aspirin, statin and beta-randi and Imdur Carotid artery disease On aspirin and statin Chronic diastolic CHF On Lasix 20 mg 3 times a week Hypertension On Imdur, lisinopril, metoprolol succinate We will monitor History of COPD Continue home inhalers Hyperlipidemia On statin and Zetia GERD On omeprazole Depression Generalized anxiety disorder On Zoloft and hydroxyzine as needed and amitriptyline DVT prophylaxis SCDs for now Disposition Observation telemetry floor Full code History of Present Illness Chief Complaint: Chest pain and dizziness Primary Care Provider: Cedric Downey MD 74-year-old female with past medical history significant for COPD, dyslipidemia, nocturnal hypoxemia due to emphysema, history of CAD, history of chronic heart failure with preserved ejection fraction, history of hypertension, GERD, history dysphagia, CKD stage III, osteoarthritis, migraine, depression, general anxiety disorder, lumbar spinal stenosis, adjustment disorder with anxious mood comes in because of chest pain and dizziness. Patient states around 1:30 PM she noticed left-sided chest pain sharp in nature and 6/10 in severity. No radiation. She also felt slight dizzy and she has to lean to the wall and slowly lowered down. Patient states in the ER she stood couple of times but there was no dizziness. Currently chest pain is minimal. Denies any shortness of breath. Once in a while she gets sweating. Vision is not great. Sometimes get headaches but currently no headache. No runny nose. No sore throat. Appetite is okay. No nausea. No abdominal pain. Normal bowel and bladder movements. Currently hemodynamics are okay. Past medical history. As mentioned above Past surgical history. Allograft for spine surgery. Bone marrow aspiration. Left carpal tunnel surgery. . Colonoscopy. Cystoscopy. Dilatation curettage. EGD. Insertion of interbody biomechanical device. Neck spine fusion surgery. Laminectomy. Cholecystectomy. Right shoulder surgery. Spinal fusion surgery. Total hysterectomy. Social history. Quit smoking 2020. Smoked 0.3 pack a day for 51 years. No alcohol use. No drug use. Family history. Father had heart attack. Brother had hypertension. Mother had hypertension. Sister had breast cancer. Paternal aunt had breast cancer. Allergies Allergy/AdvReac Type Severity Reaction Status Date / Time acetaminophen Allergy Severe Anaphylaxis Verified 12/27/24 20:02 chlorpheniramine Allergy Severe Anaphylaxis Verified 12/27/24 20:02 dextromethorphan Allergy Severe Anaphylaxis Verified 12/27/24 20:02 latex Allergy Mild RASH Verified 12/27/24 20:02 Iodinated Contrast Media Allergy Unknown . Verified 12/27/24 20:02 Penicillins Allergy Unknown Unknown Verified 12/27/24 20:02 varenicline AdvReac Severe NAUSEA Verified 12/27/24 20:02 benzalkonium chloride AdvReac Intermediate VERTIGO Verified 12/27/24 20:02 ibuprofen AdvReac Intermediate ACID REFLEX Verified 12/27/24 20:02 ofloxacin AdvReac Intermediate VERTIGO Verified 12/27/24 20:02 Corticosteroids AdvReac Unknown [email or web address] Verified 12/27/24 20:02 (Glucocorticoids) and hyper Home Medications Medication Instructions Recorded Confirmed Type amitriptyline 10 mg tablet 20 mg PO HS 09/20/18 12/27/24 History aspirin 81 mg tablet,delayed 81 mg PO QAM 09/20/18 12/27/24 History release omeprazole 40 mg capsule,delayed 40 mg PO QAM 09/20/18 12/27/24 History release sertraline 100 mg tablet 200 mg PO HS 09/20/18 12/27/24 History calcium carbonate (Calcium 600) 600 mg PO QAM 01/02/19 12/27/24 History alendronate 70 mg tablet 70 mg PO WK 11/05/19 12/27/24 History ezetimibe 10 mg tablet (Zetia) 10 mg PO QAM 11/05/19 12/27/24 History atorvastatin 80 mg tablet 80 mg PO QPM 04/10/23 12/27/24 History hydroxyzine HCl 25 mg tablet 25 mg PO Q6H PRN Anxiety 04/10/23 12/27/24 History acetaminophen 325 mg tablet 650 mg (2 x 325 mg) PO Q8H #1 tab 04/12/23 12/27/24 Rx hydrocodone 5 mg-acetaminophen 325 1 tab PO Q8H PRN pain 1 day #1 tab 04/12/23 12/27/24 Rx mg tablet cyclobenzaprine 5 mg tablet 5 mg PO HS PRN Muscle Spasm 04/22/23 12/27/24 History nitroglycerin 0.4 mg sublingual 0.4 mg sublingual UD PRN Other 04/22/23 12/27/24 History tablet tizanidine 4 mg tablet 4 mg PO Q8H PRN Spasms 04/22/23 12/27/24 History umeclidinium 62.5 mcg-vilanterol 1 inh inhalation QAM 04/22/23 12/27/24 History 25 mcg/actuation powdr for inhalation (Anoro Ellipta) isosorbide mononitrate 30 mg 30 mg PO QAM #30 tabs 11/09/23 12/27/24 Rx tablet,extended release 24 hr lisinopril 2.5 mg tablet 2.5 mg PO QAM #30 tabs 11/09/23 12/27/24 Rx furosemide 40 mg tablet 20 mg PO UD 12/27/24 12/27/24 History gabapentin 300 mg capsule 300 mg PO QAM 12/27/24 12/27/24 History gabapentin 300 mg capsule 600 mg PO HS 12/27/24 12/27/24 History metoprolol succinate 25 mg 12.5 mg PO DAILY 12/27/24 12/27/24 History tablet,extended release 24 hr Past Med/Surg History Problem List (Updated 12/27/24 @ 19:33 by Peace Arvizu MD) Aortic mural thrombus (Acute) Near syncope (Acute) Dizziness (Acute) Chest pain (Acute) Chest pain (Acute) HTN (hypertension) Postoperative anemia Weakness (Acute) Falling (Acute) Anemia (Acute) Acute head trauma (Acute) History of lumbar surgery (Acute) Hyponatremia (Acute) Lumbar spinal stenosis Ambulatory dysfunction Multiple falls HLD (hyperlipidemia) CKD (chronic kidney disease), stage III Nonobstructive atherosclerosis of coronary artery (2018) LAD and circumflex free of major disease. RCA with 40 to 50% mid right coronary stenosis and 40% stenosis at the takeoff of the PDA. Tobacco use (Chronic) GERD (gastroesophageal reflux disease) (Chronic) Diastolic dysfunction (Chronic) History of cholecystectomy (Chronic) History of hysterectomy (Chronic) Nocturnal hypoxia (Chronic) reported secondary to COPD. Pt not on home oxygen HS secondary to reported insurance issues Encounter for smoking cessation counseling (Acute) COPD (chronic obstructive pulmonary disease) (Chronic) Anxiety (Chronic) Osteoarthritis (Chronic) Osteoporosis (Chronic) Depression (Chronic) Medical History HTN (hypertension) Lumbar spinal stenosis Cervical spinal stenosis HLD (hyperlipidemia) CKD (chronic kidney disease), stage III Vasospastic angina NSTEMI (non-ST elevated myocardial infarction) Nonobstructive atherosclerosis of coronary artery (2018) LAD and circumflex free of major disease. RCA with 40 to 50% mid right coronary stenosis and 40% stenosis at the takeoff of the PDA. ACS (acute coronary syndrome) Tobacco use GERD (gastroesophageal reflux disease) Diastolic dysfunction Nocturnal hypoxia reported secondary to COPD. Pt not on home oxygen HS secondary to reported insurance issues Palpitation Depression Osteoporosis Osteoarthritis Anxiety COPD (chronic obstructive pulmonary disease) Surgical History History of section History of arthroscopy of right shoulder History of carpal tunnel surgery S/P cervical spinal fusion History of lumbar fusion History of cholecystectomy History of hysterectomy Family History Sister Breast cancer Aunt Breast cancer Father Coronary heart disease Brother Hypertension Father Hypertension Social History Smoking Status: Smoker, status unknown Tobacco Type: Cigarettes Second Hand Exposure: No; Do You Dip or Chew Tobacco: No; Hx Alcohol Use: No Hx Substance Use: No Preferred Language: Togolese Communication Ability: Effective Rake Operator Required: No Beliefs That Will Affect Care: None Current Living Situation: Alone Current Living Situation Comment: Apartment Other Information That Helps Us Care for You: No Feels Safe at Home: Yes Safety Concerns: Feels Safe At This Time Assistive Devices: Denture - Upper, Denture - Lower and Glasses Review of Systems Review of Systems: All systems reviewed & are unremarkable except as noted in HPI & below Physical Exam Physical Exam: General- Not in distress Head- atraumatic Eyes- PERRL. ENT- oropharynx clear Neck- supple, no JVD. Lungs- clear to auscultation no wheezing or crackles Heart- regular rate and rhythm; no murmur, no gallop. Abdomen- normal bowel sounds, soft, nontender, no distension Extremities- no pretibial edema, no erythema seen Neuro- alert, oriented PERRL, no facial palsy; no dysarthria; moves extremities. Results & Data Results & Data Vital Signs (Past 12 Hours) Vital Signs Temp Pulse Pulse Resp BP BP Pulse Ox 12/27/24 21:11 68 20 152/92 H 94 12/27/24 21:00 66 17 92 12/27/24 21:00 172/78 H 12/27/24 20:51 67 18 93 12/27/24 20:48 65 12/27/24 20:42 66 19 93 12/27/24 20:36 65 18 93 12/27/24 20:30 173/79 H 12/27/24 20:24 67 16 93 12/27/24 20:12 65 17 96 12/27/24 20:00 66 16 94 12/27/24 20:00 162/75 H 12/27/24 19:54 63 19 94 12/27/24 19:30 159/76 H 12/27/24 19:18 62 19 95 12/27/24 19:03 82 18 95 12/27/24 19:00 157/78 H 12/27/24 18:51 65 20 94 12/27/24 18:51 94 12/27/24 18:48 63 21 92 12/27/24 18:45 64 21 93 12/27/24 18:30 66 16 93 12/27/24 18:30 128/68 12/27/24 18:30 128/68 12/27/24 18:30 128/68 12/27/24 18:15 68 22 94 12/27/24 18:09 69 22 94 12/27/24 17:51 67 17 95 12/27/24 17:48 67 21 94 12/27/24 17:31 114/53 L 12/27/24 17:30 114/53 L 12/27/24 17:30 114/53 L 12/27/24 17:21 73 25 H 93 12/27/24 17:12 75 16 92 12/27/24 17:08 92/46 L 12/27/24 17:00 76 16 93 12/27/24 16:54 76 12/27/24 16:51 74 17 93 12/27/24 16:48 74 18 94 12/27/24 16:34 36.9 C 77 16 121/51 L 93 O2 Del Method 12/27/24 21:11 Room Air 12/27/24 21:00 12/27/24 21:00 12/27/24 20:51 12/27/24 20:48 12/27/24 20:42 12/27/24 20:36 12/27/24 20:30 12/27/24 20:24 12/27/24 20:12 12/27/24 20:00 12/27/24 20:00 12/27/24 19:54 12/27/24 19:30 12/27/24 19:18 12/27/24 19:03 12/27/24 19:00 12/27/24 18:51 Room Air 12/27/24 18:51 Room Air 12/27/24 18:48 12/27/24 18:45 12/27/24 18:30 12/27/24 18:30 12/27/24 18:30 12/27/24 18:30 12/27/24 18:15 12/27/24 18:09 12/27/24 17:51 12/27/24 17:48 12/27/24 17:31 12/27/24 17:30 12/27/24 17:30 12/27/24 17:21 12/27/24 17:12 12/27/24 17:08 12/27/24 17:00 Room Air 12/27/24 16:54 12/27/24 16:51 12/27/24 16:48 12/27/24 16:34 Room Air Diagnostic Findings Laboratory Results WBC 8.98 K/ul (4.8-10.8) 12/27/24 16:45 RBC 3.82 M/uL (4.20-5.40) L 12/27/24 16:45 Hgb 11.5 g/dl (12.0-16.0) L 12/27/24 16:45 Hct 34.4 % (37.0-47.0) L 12/27/24 16:45 MCV 90.1 fL (80.0-100.0) 12/27/24 16:45 MCH 30.1 pg (25.0-34.0) 12/27/24 16:45 MCHC 33.4 g/dL (32.0-36.0) 12/27/24 16:45 RDW Std Deviation 41.7 fL (36.4-46.3) 12/27/24 16:45 RDW Coeff of Melany 12.7 % (11.5-14.5) 12/27/24 16:45 Plt Count 209 K/uL (130-400) 12/27/24 16:45 MPV 10.0 fL (9.4-12.4) 12/27/24 16:45 Immature Gran % (Auto) 0.3 % 12/27/24 16:45 Neut % (Auto) 57.6 % 12/27/24 16:45 Lymph % (Auto) 31.0 % 12/27/24 16:45 [place] % (Auto) 8.4 % 12/27/24 16:45 Eos % (Auto) 1.7 % 12/27/24 16:45 Baso % (Auto) 1.0 % 12/27/24 16:45 Neut # (Auto) 5.18 K/uL (1.40-6.50) 12/27/24 16:45 Lymph # (Auto) 2.78 K/uL (1.20-3.40) 12/27/24 16:45 [place] # (Auto) 0.75 K/uL (0.11-0.59) H 12/27/24 16:45 Eos # (Auto) 0.15 K/uL (0.00-0.50) 12/27/24 16:45 Baso # (Auto) 0.09 K/uL (0.00-0.20) 12/27/24 16:45 Immature Gran # (Auto) 0.03 K/uL (0.01-0.20) 12/27/24 16:45 PT 10.5 Seconds (9.0-12.0) 12/27/24 16:45 INR 1.0 (0.9-1.1) 12/27/24 16:45 Sodium 138 mmol/L (136-145) 12/27/24 16:45 Potassium 3.8 mmol/L (3.5-5.1) 12/27/24 16:45 Chloride 107 mmol/L (98-107) 12/27/24 16:45 Carbon Dioxide 27 mmol/L (21-32) 12/27/24 16:45 Anion Gap 4 (3-11) 12/27/24 16:45 BUN 19 mg/dl (6-23) 12/27/24 16:45 Creatinine 0.98 mg/dl (0.6-1.2) 12/27/24 16:45 Est Cr Clr Drug Dosing 42.8 ml/min 12/27/24 16:45 eGFR 60.57 12/27/24 16:45 BUN/Creatinine Ratio 19.4 (10-20) 12/27/24 16:45 Glucose 129 mg/dl (70-99(Fasting)) H 12/27/24 16:45 Calcium 9.3 mg/dl (8.6-10.3) 12/27/24 16:45 Magnesium 1.7 mg/dl (1.7-2.4) 12/27/24 16:45 Total Bilirubin 0.3 mg/dl (0.2-1.0) 12/27/24 16:45 AST 16 U/L (13-39) 12/27/24 16:45 ALT 12 U/L (7-52) 12/27/24 16:45 Alkaline Phosphatase 85 U/L (34-104) 12/27/24 16:45 Troponin I High Sens 2.9 pg/ml (0-14) 12/27/24 19:07 B-Natriuretic Peptide 73 pg/ml (0-100) 12/27/24 19:07 Total Protein 7.1 gm/dl (6.0-8.3) 12/27/24 16:45 Albumin 3.9 gm/dl (3.4-5.0) 12/27/24 16:45 Globulin 3.2 gm/dl (2.5-4.0) 12/27/24 16:45 Albumin/Globulin Ratio 1.2 (0.9-2) 12/27/24 16:45 Lipase 25 U/L (11-82) 12/27/24 16:45 Urine Color Yellow 12/27/24 18:55 Urine Appearance Clear (Clear) 12/27/24 18:55 Urine pH 5.0 (4.5-7.5) 12/27/24 18:55 Ur Specific [place] 1.045 (1.000-1.030) H 12/27/24 18:55 Urine Protein Negative (Negative) 12/27/24 18:55 Urine Glucose (UA) Negative (Negative) 12/27/24 18:55 Urine Ketones Trace (Negative) H 12/27/24 18:55 Urine Blood Negative (Negative) 12/27/24 18:55 Urine Nitrite Negative (Negative) 12/27/24 18:55 Urine Bilirubin Negative (Negative) 12/27/24 18:55 Urine Urobilinogen Negative (Negative) 12/27/24 18:55 Ur Leukocyte Esterase Negative (Negative) 12/27/24 18:55 Impressions Chest X-Ray 12/27/24 16:40 EXAM: XR chest 1V portable CLINICAL HISTORY: Near syncope. TECHNIQUE: An X-ray image of the chest is obtained in PA projection. COMPARISON: X-ray dated 02/23/2024. FINDINGS: Pulmonary Parenchyma: Exaggerated vascular and interstitial lung markings bilaterally. No evidence of consolidation, collapse, or focal opacities. No pulmonary nodules are identified. No evidence of pleural effusion or pleural thickening. Heart and Mediastinum: Heart size and shape are normal. No mediastinal widening or masses. No hilar or mediastinal lymphadenopathy. Prominent aortic arch with vascular calcification. Bony Thorax: Degenerative changes of the spine and left shoulder joint. Widening of the right acromioclavicular joint. Internal fixation of the cervical spine. Overall, no significant changes. Soft Tissues: Soft tissues overlying the chest wall are unremarkable. IMPRESSION: 1. Exaggerated vascular and interstitial lung markings bilaterally raising suspicion of pulmonary congestion. Correlate with clinical findings. 2. No interval changes. Electronically signed by Tex Pacheco 12-27-2024 5:54 PM Chest CTA 12/27/24 17:12 EXAM: CT angio chest dissec wo/w con CLINICAL HISTORY: chest pain with near syncope. TECHNIQUE: CT angiography of the chest was performed with and without intravenous contrast with the following protocol: axial images with, reconstructed coronal and sagittal images. Non-contrast images were initially acquired, followed by contrast-enhanced images in arterial and venous phases. Intravenous contrast 119 ml Opti 320 was administered using automated injection techniques. Bolus tracking was employed to optimize arterial phase imaging. One of these 3D techniques was utilized: Maximum Intensity Pixel (MIP), 3D Reconstructed Images, Volume Rendered Images, Surface Shaded Rendering. One of the following dose reduction techniques was utilized for this exam: Automated exposure control, adjustment of the mA and/or kV according to patient size, and use of iterative reconstruction. CTDI 25.37 mGy, DLP: 831.91 mGy-cm COMPARISON: 02/23/2024. FINDINGS: Aorta and Great Vessels: Ascending Aorta: Normal in caliber, no aneurysm or dissection. Atherosclerotic changes are noted. Aortic Arch: Normal in caliber, no aneurysm, dissection, or significant atherosclerosis. Descending Aorta: Normal in caliber, no aneurysm or dissection. Atherosclerotic changes with mural thrombosis cause about 20-30% luminal narrowing. Pulmonary Arteries: The main pulmonary artery and its branches are patent. No evidence of pulmonary embolism or significant stenosis. Heart: Cardiac Chambers: Normal in size. No evidence of cardiomegaly. Pericardium: No pericardial effusion or thickening. Lungs and Pleura: No evidence of consolidation, collapse, or focal lesions. [id number] Small air cysts are seen at the right upper /[id number] left lower lung lobes. /OBX.5.1.2/OBX.5.1 Bilateral basal pulmonary atelectatic bands. No pleural effusion or pleural thickening. Mediastinum: No mediastinal mass or abnormal lymphadenopathy. Normal appearance of the trachea and central bronchi. Hilar Structures: Hilar structures are normal without enlargement. Chest Wall: No mass lesions or abnormalities in the chest wall. Vascular Structures: Superior Vena Cava: Patent without evidence of stenosis or thrombus. Inferior Vena Cava: Patent without evidence of stenosis or thrombus. Bones and Soft Tissues: No fractures, lytic, or blastic lesions of the visualized bony structures. Soft tissues are unremarkable. Spondyldoegenrative changes . Spinal fixation of the lower cervical spine. The upper abdomen shows A subcentimetric hepatic cyst. Cholecystectomy. IMPRESSION: 1. No pulmonary embolism. 2. 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 cause about 20-30% luminal narrowing. 3. No interval changes. Electronically signed by Tex Pacheco 12-27-2024 7:[address] 12/27/24 17:12 EXAM: CT head/brain wo con CLINICAL HISTORY: dizziness TECHNIQUE: Axial non-contrast CT scan of the brain was performed from the skull base to the high parietal region. One of the following dose reduction techniques were utilized for this exam: Automated exposure control, adjustment of the mA and/or kV according to patient size, use of iterative reconstruction. DLP: 2306.1 mGy.cm. COMPARISON: prior 04/10/2023 FINDINGS: No intracerebral hematoma or mass effect or territorial infarction There are few tiny ill-defined iso-to hypodense areas noted in the periventricular white matter bilaterally, suggestive of microvascular ischemic changes. The ventricular system, cortical sulci and basal cisterns are prominent, consistent with senile changes. The rest of the visualized brain parenchyma shows normal appearance. Cheung-white matter differentiation is maintained. No midline shifts or deformity. Normal CT appearance of the posterior fossa structures, namely the cerebellar hemispheres, brainstem and cerebellar peduncles. The cerebello-pontine angles are clear. The osseous structures in the skull base are unremarkable. No definite calvarium fractures. The scanned paranasal sinuses are clear. IMPRESSION: 1. No acute abnormalities. 2. Microvascular ischemic changes and senile changes. 3. No time interval changes Electronically signed by Tex Pacheco 12-27-2024 7:40 PM ECG Additional Comments: ECG. Normal sinus rhythm rate of 75. No significant changes found. QTc 419. Code Status & VTE Plan VTE Prophylaxis Plan VTE Prophylaxis will be ordered: Yes
[2024-12-27] MEDS ORDERED: NITROGLYCERIN SL 0.4 MG/TAB TAB SL PRN (22:37)
[2024-12-27] MEDS ORDERED: HYDROCODONE/ACETAMOPHEN 5/325MG TAB PO PRN (22:37)
[2024-12-27] MEDS ORDERED: POLYETHYLENE (MIRALAX) 17 GM PACK PO PRN (22:37)
[2024-12-28 07:06] LABS: Basophils # (auto) 0.05 K/uL (0.00-0.20); Basophils % (auto) 0.4 %; Hematocrit (blood only) 36.1 % (37.0-47.0); Immature Granulocytes # (auto) 0.07 K/uL (0.01-0.20); Immature Granulocytes % (auto) 0.6 %; Lymphocytes # (auto) 1.97 K/uL (1.20-3.40); Lymphocytes % (auto) 16.8 %; Mean Corpuscular Hemoglobin 29.7 pg (25.0-34.0); Mean Corpuscular Hgb Conc 33.2 g/dL (32.0-36.0); Mean Corpuscular Volume 89.4 fL (80.0-100.0); Mean Platelet Volume 10.3 fL (9.4-12.4); Monocytes # (auto) 0.64 K/uL (0.11-0.59); Monocytes % (auto) 5.5 %; Neutrophils # (auto) 9.01 K/uL (1.40-6.50); Neutrophils % (auto) 76.7 %; Platelet Count 228 K/uL (130-400); RDW Coefficient of Variation 12.3 % (11.5-14.5); RDW Standard Deviation 40.5 fL (36.4-46.3); Red Blood Count 4.04 M/uL (4.20-5.40); White Blood Count 11.74 K/ul (4.8-10.8)
--- NOTE | 2024-12-28 07:15 | Electrocardiogram Report ---
Test Reason : Blood Pressure : */* mmHG Vent. Rate : 75 BPM Atrial Rate : 75 BPM P-R Int : 154 ms QRS Dur : 86 ms QT Int : 376 ms P-R-T Axes : 56 -11 21 degrees QTcB Int : 419 ms Normal sinus rhythm Normal ECG When compared with ECG of 23-Feb-2024 20:58, No significant change was found Confirmed by Cas Isabel ([id number]) on 12/28/2024 7:14:32 AM Referred By: REFERRED SELF Confirmed By: Cas Isabel
--- NOTE | 2024-12-28 07:16 | Electrocardiogram Report ---
Test Reason : Blood Pressure : */* mmHG Vent. Rate : 69 BPM Atrial Rate : 69 BPM P-R Int : 148 ms QRS Dur : 88 ms QT Int : 428 ms P-R-T Axes : 71 -2 39 degrees QTcB Int : 458 ms Normal sinus rhythm Confirmed by Cas Isabel ([id number]) on 12/28/2024 7:15:42 AM Referred By: REFERRED SELF Confirmed By: Cas Isabel
[2024-12-28 07:26] LABS: BUN Creatinine Ratio 21.4 (10-20); Calcium 9.6 mg/dl (8.6-10.3); Creatinine Clr Calc Pharmacy 40.2 ml/min; Magnesium 1.8 mg/dl (1.7-2.4); Potassium 4.5 mmol/L (3.5-5.1)
[2024-12-28 07:34] LABS: Troponin I High Sensitivity 3.1 pg/ml (0-14)
[2024-12-28] MEDS: UMECLIDINIUM/VILANTEROL 62.5/25MCG 7 PUFFS/INHALER INH SCH (08:43)
[2024-12-28] MEDS: lisinopril 2.5 MG TAB PO SCH (08:44)
[2024-12-28] MEDS: CALCIUM CARBONATE 1250MG TAB PO SCH (08:44)
[2024-12-28] MEDS: GABAPENTIN 300 MG CAP PO SCH ×2 (08:44→21:11)
[2024-12-28] MEDS: ASPIRIN 81 MG ECTAB PO SCH (08:44)
[2024-12-28] MEDS: EZETIMIBE 10 MG TAB PO SCH (08:44)
[2024-12-28] MEDS: PANTOprazole 40 MG TAB PO SCH ×2 (08:44→21:11)
[2024-12-28] MEDS: METOPROLOL SUCC 25MG EXT REL TAB PO SCH (08:45)
[2024-12-28] MEDS: ISOSORBIDE MONO EXTENDED REL 30 MG TABCR PO SCH (08:45)
--- NOTE | 2024-12-28 10:41 | Cardiology Consultation ---
Date of Consultation December 28, 2024 Assessment & Plan (1) Chest pain at rest: (2) Dysphagia: (3) ASCVD (arteriosclerotic cardiovascular disease): (4) Diastolic congestive heart failure: Plan Chest pain. This appears multifactorial in etiology including anxiety, musculoskeletal chest discomfort (reproducible with palpation of the chest wall) and possible GI etiology noting reflux symptoms and intermittent dysphagia. EKGs without acute change. High-sensitivity troponin negative. Resting echocardiography pending. No further inpatient cardiac workup planned unless resting echocardiography is abnormal. Consider twice daily PPI as well as GI evaluation. General measures advised regarding the musculoskeletal chest wall discomfort. Known nonobstructive coronary artery disease. See above. Lexiscan nuclear stress testing nonischemic in July 2024. Continue medical management. Patient with past poor tolerance to low-dose lisinopril. Consider titration of Imdur to 60 mg/day noting possible vasospastic component to discomfort noted on chart review. Diastolic congestive heart failure. Volume status is compensated. Furosemide dosing recently reduced to 20 mg 3 times a week due to dizziness, observed orthostasis. Dizziness. Avoid sublingual nitroglycerin for noncardiac chest pain. Hypertension. Blood pressure labile this admission although currently acceptably controlled. Patient with past poor tolerance to low-dose lisinopril. Continue metoprolol and isosorbide. Atherosclerotic changes of the arch and descending thoracic aorta and mild nonobstructive internal carotid artery disease. Continue aspirin and statin, risk factor and lifestyle modification. Dyslipidemia. Continue atorvastatin 80 mg/day and ezetimibe 10 mg/day. Supervising Physician Co-Signing Physician Notes Attending attestation: Case reviewed with the advanced practitioner. I have personally performed a history and physical examination on the patient. I have reviewed the advanced practitioner's documentation on the date of service referenced in note, and I agree with, and take responsibility for the plan of care. Subjective:Patient denies any chest discomfort during my assessment. Exam: Cardiovascular: Regular rhythm, no murmurs, no edema Data: Summary of transthoracic echocardiogram performed today 12/28/2024: There is normal left ventricular wall thickness. The left ventricular wall motion is normal. Left ventricular systolic function is normal. Left Ventricular Ejection Fraction = 60-65%. There is mild tricuspid regurgitation. The pulmonary artery systolic pressure =38 mmHg (mildly elevated). Grade I diastolic dysfunction, (abnormal relaxation pattern). Compared to the previous study dated 11/08/2023, there is no significant change. Impression/ Plan: -As noted above -No further cardiac testing felt to be indicated at this time. -Stable for discharge on either prior to hospital medications or may increase isosorbide mononitrate from 30 mg to 60 mg. Efren Sheppard DO History of Present Illness Reason for Consultation: Chest pain, dizziness Requesting Physician: Dr. Ambrose Attending Physician: Dr. Roslyn Arguello MD History of Present Illness Sandy Fan is a 74 year old female who presented to the [facility] ER via ambulance on December 27, 2024 with chest pain, dizziness, near syncope. Patient describes being under a significant amount of stress of lately, familial stressors related to her mother with dementia and her 1 sister. [place] [facility] [place]." After leaving [facility] patient began to have some chest discomfort. She describes driving home, taking sublingual nitroglycerin after pulling in. Thereafter she exited the car and while standing waiting to get in the elevator developed significant dizziness, near syncope. She describes having to lean against the wall and slide down, feeling very shaky and very very dizzy. EMS was summoned with patient noting administration of sublingual nitroglycerin and aspirin in route. EKG on presentation revealed normal sinus rhythm at [address] segment change observed. High-sensitivity troponin negative x 3 (<2.3 -> 2.9 -> 3.1 pg/mL). Chest x-ray was interpreted by radiologist as revealing exaggerated vascular and interstitial lung markings with no interval change. CTA of the chest was negative for PE or interval change. 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 causing 20 to 30% luminal narrowing reported. CT of the head also without acute abnormality, revealing microvascular ischemic change and senile changes only. Patient continues to have chest discomfort that is definitely reproducible with palpation of the chest wall. She notes intermittent dysphagia over the last few months as well as "major heartburn." EKG this morning reveals normal sinus rhythm at 69 bpm, without acute ST segment change. Continuous telemetry monitoring without significant arrhythmia. Problem List: Longstanding atypical chest discomfort Nonobstructive coronary disease per cardiac catheterization in 2017 and August 2019. Pulmonary hypertension. Prior sleep testing in February 2017 with a AHI of 0.2, average SpO2 88%, time <89% 146 minutes. Nocturnal hypoxemia attributed to COPD with nocturnal oxygen supplementation ordered but never initiated. Diastolic congestive heart failure Dyslipidemia goal LDL less than 70 mg/dL. Right carotid bruit. Carotid duplex in February 2023 revealed mild bilateral int ernal carotid artery disease, previously reported to have 50 to 69% right internal carotid artery disease via August 2021 duplex. Anxiety and dpression CKD COPD GERD Allergies Allergy/AdvReac Type Severity Reaction Status Date / Time chlorpheniramine Allergy Severe Anaphylaxis Verified 12/27/24 20:02 dextromethorphan Allergy Severe Anaphylaxis Verified 12/27/24 20:02 latex Allergy Mild RASH Verified 12/27/24 20:02 Iodinated Contrast Media Allergy Unknown . Verified 12/27/24 20:02 Penicillins Allergy Unknown Unknown Verified 12/27/24 20:02 varenicline AdvReac Severe NAUSEA Verified 12/27/24 20:02 benzalkonium chloride AdvReac Intermediate VERTIGO Verified 12/27/24 20:02 ibuprofen AdvReac Intermediate ACID REFLEX Verified 12/27/24 20:02 ofloxacin AdvReac Intermediate VERTIGO Verified 12/27/24 20:02 Corticosteroids AdvReac Unknown [email or web address] Verified 12/27/24 20:02 (Glucocorticoids) and hyper Home Medications Medication Instructions Recorded Confirmed Type amitriptyline 10 mg tablet 20 mg PO HS 09/20/18 12/27/24 History aspirin 81 mg tablet,delayed 81 mg PO QAM 09/20/18 12/27/24 History release omeprazole 40 mg capsule,delayed 40 mg PO QAM 09/20/18 12/27/24 History release sertraline 100 mg tablet 200 mg PO HS 09/20/18 12/27/24 History calcium carbonate (Calcium 600) 600 mg PO QAM 01/02/19 12/27/24 History alendronate 70 mg tablet 70 mg PO WK 11/05/19 12/27/24 History ezetimibe 10 mg tablet (Zetia) 10 mg PO QAM 11/05/19 12/27/24 History atorvastatin 80 mg tablet 80 mg PO QPM 04/10/23 12/27/24 History hydroxyzine HCl 25 mg tablet 25 mg PO Q6H PRN Anxiety 04/10/23 12/27/24 History acetaminophen 325 mg tablet 650 mg (2 x 325 mg) PO Q8H #1 tab 04/12/23 12/27/24 Rx hydrocodone 5 mg-acetaminophen 325 1 tab PO Q8H PRN pain 1 day #1 tab 04/12/23 12/27/24 Rx mg tablet cyclobenzaprine 5 mg tablet 5 mg PO HS PRN Muscle Spasm 04/22/23 12/27/24 History nitroglycerin 0.4 mg sublingual 0.4 mg sublingual UD PRN Other 04/22/23 12/27/24 History tablet tizanidine 4 mg tablet 4 mg PO Q8H PRN Spasms 04/22/23 12/27/24 History umeclidinium 62.5 mcg-vilanterol 1 inh inhalation QAM 04/22/23 12/27/24 History 25 mcg/actuation powdr for inhalation (Anoro Ellipta) isosorbide mononitrate 30 mg 30 mg PO QAM #30 tabs 11/09/23 12/27/24 Rx tablet,extended release 24 hr lisinopril 2.5 mg tablet 2.5 mg PO QAM #30 tabs 11/09/23 12/27/24 Rx furosemide 40 mg tablet 20 mg PO UD 12/27/24 12/27/24 History gabapentin 300 mg capsule 300 mg PO QAM 12/27/24 12/27/24 History gabapentin 300 mg capsule 600 mg PO HS 12/27/24 12/27/24 History metoprolol succinate 25 mg 12.5 mg PO DAILY 12/27/24 12/27/24 History tablet,extended release 24 hr Patient History Medical History Cervical spinal stenosis Vasospastic angina NSTEMI (non-ST elevated myocardial infarction) ACS (acute coronary syndrome) Surgical History History of section History of arthroscopy of right shoulder History of carpal tunnel surgery S/P cervical spinal fusion History of lumbar fusion Family History Sister Breast cancer Aunt Breast cancer Father Coronary heart disease Brother Hypertension Father Hypertension Social History Smoking Status: Smoker, status unknown Tobacco Type: Cigarettes Second Hand Exposure: No; Do You Dip or Chew Tobacco: No; Hx Alcohol Use: No Hx Substance Use: No Preferred Language: Tongan Communication Ability: Effective Case Preparer And Liner Required: No Beliefs That Will Affect Care: None Current Living Situation: Alone Current Living Situation Comment: Apartment Other Information That Helps Us Care for You: No Feels Safe at Home: Yes Safety Concerns: Feels Safe At This Time Assistive Devices: Denture - Upper, Denture - Lower and Glasses Review of Systems Review of Systems: Complete Review of Systems is as stated above, negative, or noncontributory. Physical Exam Physical Exam: General: NAD. HENT: Normocephalic. Atraumatic. Eyes: PER. Conjunctiva pink, sclera clear. Neck: No JVD. No HJR. Chest: Reproducible left sided musculoskeletal chest discomfort Heart: RRR, 76 bpm. Soft systolic murmur Lungs: Diminished. Decreased. Clear. Abdomen: +BS. Soft. Nontender. No masses or organomegaly. Extremities: No edema. No cyanosis. No clubbing. Limited neurological examination is without focal deficits. Pulses: radial=2/4, posterior tibial=1/4. Results & Data Vital Signs (Past 12 Hours) Vital Signs Temp Pulse Pulse Resp BP Pulse Ox O2 Del Method 12/28/24 08:36 36.8 C 78 16 135/73 96 CPAP 12/28/24 08:27 68 12/28/24 03:18 36.9 C 69 14 146/68 H 94 CPAP 12/27/24 23:17 36.5 C 75 20 167/71 H 95 Room Air 12/27/24 23:11 36.5 C 75 20 95 Room Air 12/27/24 23:10 68 Laboratory Results Cardiac Enzymes 12/27/24 12/27/24 12/28/24 Range/Units 16:45 19:07 06:23 AST 16 (13-39) U/L Troponin I High Sens < 2.3 2.9 3.1 (0-14) pg/ml B-Natriuretic Peptide 73 (0-100) pg/ml Coagulation 12/27/24 12/27/24 Range/Units 16:45 19:07 PT 10.5 (9.0-12.0) Seconds B-Natriuretic Peptide 73 (0-100) pg/ml CBC 12/27/24 12/28/24 Range/Units 16:45 06:23 WBC 8.98 11.74 H (4.8-10.8) K/ul RBC 3.82 L 4.04 L (4.20-5.40) M/uL Hgb 11.5 L 12.0 (12.0-16.0) g/dl Hct 34.4 L 36.1 L (37.0-47.0) % Plt Count 209 228 (130-400) K/uL Neut # (Auto) 5.18 9.01 H (1.40-6.50) K/uL Lymph # (Auto) 2.78 1.97 (1.20-3.40) K/uL [place] # (Auto) 0.75 H 0.64 H (0.11-0.59) K/uL Eos # (Auto) 0.15 0.00 (0.00-0.50) K/uL Baso # (Auto) 0.09 0.05 (0.00-0.20) K/uL Comprehensive Metabolic Panel 12/27/24 12/28/24 Range/Units 16:45 06:23 Sodium 138 140 (136-145) mmol/L Potassium 3.8 4.5 (3.5-5.1) mmol/L Chloride 107 107 (98-107) mmol/L Carbon Dioxide 27 28 (21-32) mmol/L BUN 19 22 (6-23) mg/dl Creatinine 0.98 1.03 (0.6-1.2) mg/dl Glucose 129 H 128 H (70-99(Fasting)) mg/dl Calcium 9.3 9.6 (8.6-10.3) mg/dl AST 16 (13-39) U/L ALT 12 (7-52) U/L Alkaline Phosphatase 85 (34-104) U/L Total Protein 7.1 (6.0-8.3) gm/dl Albumin 3.9 (3.4-5.0) gm/dl Intake and Output 12/27/24 12/28/24 12/28/24 22:59 06:59 14:59 Other: # Unmeasured Voids 2 Weight 69.8 kg 68.1 kg Weight Measurement Method Built in Bedscale Standing Scale Diagnostic Findings Cardiac catheterization performed by Dr. Isabel, [facility] 02/2018 Summary: Nonobstructive coronary disease. 40-50% mid RCA. 40% near take off of RPDA September 06, 2019 Coronary Angiography ([facility], Dr. Roland) Findings: LM - angiographically normal LAD -medium caliber vessel, 40% mid segment disease after takeoff of first diagonal. Mid to distal LAD small and tapers prior to apex. First diagonal with 20% ostial disease. Circumflex -new caliber vessel, 20 to 30% mid segment disease. RCA -large caliber vessel, dominant, 40% proximal disease, 20 to 30% mid segment disease, distal luminal irregularities. 30-40 % ostial PDA. Normal intracardiac filling pressure Reports adverse reaction to dobutamine in the past with resultant near-syncope. July 30, 2024 Lexiscan Interpretation Summary (as per Dr. Barrow): Lexiscan nuclear myocardial perfusion imaging study is negative for inducible ischemia. Gated SPECT images reveals normal myocardial thickening and wall motion. The LV ejection fraction is calculated at >70%. Compared to study dated April 13, 2020, reversible apical perfusion defect no longer present. Telemetry: Sinus rhythm throughout, heart rates predominantly in the 60s and 70s. No significant arrhythmias. No significant bradycardia or pauses.
--- NOTE | 2024-12-28 12:11 | Hospitalist Progress Note ---
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 Patient states around 1:30 PM she noticed left-sided chest pain sharp in nature and 6/10 in severity. No radiation. She also felt slight dizzy and she has to lean to the wall and slowly lowered down. Patient states in the ER she stood couple of times but there was no dizziness. Currently chest pain is minimal. Denies any shortness of breath. Once in a while she gets sweating. Vision is not great. Sometimes get headaches but currently no headache. No runny nose. No sore throat. Appetite is okay. No nausea. No abdominal pain. Normal bowel and bladder movements. Currently hemodynamics are okay. Chest pain- has been ongoing for some time Persisted for longer time yesterday with dizziness and some shortness of breath Initial troponin is negative and EKG unremarkable- and serial cardiac enzymes remain unremarkable Free from any chest pain this morning Appreciate cardiology input and recommendation Awaiting echo for any further cardiac workup if needed Will increase the dose of PPI as per recommendation Patient can have food Dizziness Will follow echo CT head is unremarkable Will check orthostatics Aortic mural thrombus CTA chest: Atherosclerotic changes of the arch and descending thoracic aorta with mural Thrombosis cause about 20-30% luminal narrowing. Vascular surgery was notified by the ER Will consult vascular surgery in a.m. for further recommendation Nonobstructive CAD Cardiac cath in January 2020 On aspirin, statin and beta-randi and Imdur Carotid artery disease On aspirin and statin Chronic diastolic CHF On Lasix 20 mg 3 times a week Hypertension On Imdur, lisinopril, metoprolol succinate We will monitor History of COPD Continue home inhalers Hyperlipidemia On statin and Zetia GERD On omeprazole Depression Generalized anxiety disorder On Zoloft and hydroxyzine as needed and amitriptyline DVT prophylaxis SCDs for now Disposition Observation telemetry floor Full code Admission and Anticipated Discharge Date Admission Date: December 27, 2024 Subjective 12/28/2024 The patient was seen and examined in telemetry unit She was admitted with ongoing chest pain for some time and the condition got worse yesterday with dizziness and some shortness of breath Has been feeling much better since this morning without any more pain Review of Systems Review of Systems: All systems reviewed and are unremarkable except as noted below Physical Exam Physical Exam: Lying in bed without any acute distress Constitutional: well developed, well nourished and + obese; not ill appearing Eyes: PERRL, conjunctivae normal, anicteric sclerae ENMT: external ear and nose normal, oropharynx normal Neck: trachea midline, no thyromegaly Respiratory: no respiratory distress Auscultation: lungs clear to auscultation bilaterally Cardiovascular: Rate/Rhythm: regular rate and regular rhythm; not tachycardic Heart Sounds: normal S1 and normal S2; no murmur Extremities: no edema Gastrointestinal (Abdomen): Inspection/Auscultation: normal bowel sounds; abdomen not distended Percussion/Palpation: abdomen soft; abdomen nontender Musculoskeletal: No acute arthritis involving any of the joint Neurologic: normal touch/pain/proprioception and moves all extremities; no focal motor deficits Psychiatric: A+Ox3, euthymic affect Lymphatic: no cervical or axillary lymphadenopathy Results & Data Results & Data Vital Signs (Past 12 Hours) Vital Signs Temp Pulse Pulse Resp BP Pulse Ox O2 Del Method 12/28/24 08:36 36.8 C 78 16 135/73 96 CPAP 12/28/24 08:27 68 12/28/24 03:18 36.9 C 69 14 146/68 H 94 CPAP Laboratory Results Short CBC 12/27/24 12/28/24 Range/Units 16:45 06:23 WBC 8.98 11.74 H (4.8-10.8) K/ul Hgb 11.5 L 12.0 (12.0-16.0) g/dl Hct 34.4 L 36.1 L (37.0-47.0) % Plt Count 209 228 (130-400) K/uL BMP 12/27/24 12/28/24 16:45 06:23 Sodium 138 140 Potassium 3.8 4.5 Chloride 107 107 Carbon Dioxide 27 28 BUN 19 22 Creatinine 0.98 1.03 Glucose 129 H 128 H Calcium 9.3 9.6 Liver Function 12/27/24 Range/Units 16:45 Total Bilirubin 0.3 (0.2-1.0) mg/dl AST 16 (13-39) U/L ALT 12 (7-52) U/L Alkaline Phosphatase 85 (34-104) U/L Albumin 3.9 (3.4-5.0) gm/dl Urine 12/27/24 Range/Units 18:55 Urine Color Yellow Urine Appearance Clear (Clear) Urine pH 5.0 (4.5-7.5) Ur Specific [place] 1.045 H (1.000-1.030) Urine Protein Negative (Negative) Urine Glucose (UA) Negative (Negative) Medications Administered Current Inpatient Medications Acetaminophen (Acetaminophen 325 Mg Tab) 650 mg PO Q4H PRN PRN Reason: Pain or Fever Stop: 01/26/25 22:36 Hydrocodone Bitart/Acetaminophen (Hydrocodone/Acetamophen 5/325mg Tab) 1 tab PO Q8H PRN PRN Reason: pain Stop: 01/10/25 22:36 Amitriptyline HCl (Amitriptyline Hcl 10 Mg Tab) 20 mg PO [facility] Stop: 01/27/25 20:59 Aspirin (Aspirin 81 Mg Ectab) 81 mg PO [facility] Stop: 01/27/25 08:59 Last Admin: 12/28/24 08:44 Dose: 81 mg Atorvastatin Calcium (Atorvastatin 40 Mg Tab) 80 mg PO QPM [facility] Stop: 01/27/25 20:59 Calcium Carbonate (Calcium Carbonate 1250mg Tab) 1 [facility] [place] Stop: 01/27/25 08:59 Last Admin: 12/28/24 08:44 Dose: 1 tab Ezetimibe (Ezetimibe 10 Mg Tab) 10 [facility] [place] Stop: 01/27/25 08:59 Last Admin: 12/28/24 08:44 Dose: 10 mg Furosemide (Furosemide 20 Mg Tab) 20 mg PO MoWeFr@[id number] [facility] Stop: 01/29/25 08:59 Gabapentin (Gabapentin 300 Mg Cap) 300 mg [facility] [place] Stop: 01/27/25 08:59 Last Admin: 12/28/24 08:44 Dose: 300 mg Gabapentin (Gabapentin 300 Mg Cap) 600 mg PO [facility] Stop: 01/27/25 20:59 Hydroxyzine HCl (Hydroxyzine Hcl 25 Mg Tab) 25 mg PO Q6H PRN PRN Reason: Anxiety Stop: 01/26/25 22:36 Isosorbide Mononitrate (Isosorbide [place] Extended Rel 30 Mg Tabcr) 30 mg PO QAM [facility] Stop: 01/27/25 08:59 Last Admin: 12/28/24 08:45 Dose: 30 mg Lisinopril (Lisinopril 2.5 Mg Tab) 2.5 mg PO QAM [facility] Stop: 01/27/25 08:59 Last Admin: 12/28/24 08:44 Dose: 2.5 mg Metoprolol Succinate (Metoprolol Succ 25mg Ext Rel Tab) 12.5 mg PO DAILY [facility] Stop: 01/27/25 08:59 Last Admin: 12/28/24 08:45 Dose: 12.5 mg Nitroglycerin (Nitroglycerin Sl 0.4 Mg/Tab Tab) 0.4 mg SL Q5M PRN PRN Reason: Chest Pain Stop: 01/26/25 22:36 Pantoprazole Sodium (Pantoprazole 40 Mg Tab) 40 [facility] [place] Stop: 01/27/25 08:59 Last Admin: 12/28/24 08:44 Dose: 40 mg Polyethylene Glycol (Polyethylene (Miralax) 17 Gm Pack) 17 gm PO DAILY PRN PRN Reason: Constipation Stop: 01/26/25 22:36 Sertraline HCl (Sertraline Hcl 100 Mg Tablet) 200 mg PO HS [facility] Stop: 01/27/25 20:59 Umeclidinium/Vilanterol (Umeclidinium/Vilanterol 62.5/25mcg 7 Puffs/Inhaler) 1 puffs INH [facility] [place] Stop: 01/27/25 08:59 Last Admin: 12/28/24 08:43 Dose: 1 puffs
[2024-12-28] MEDS: ACETAMINOPHEN 325 MG TAB PO PRN (14:21)
[2024-12-28] MEDS: hydrOXYzine HCl 25 MG TAB PO PRN (19:48)
[2024-12-28] MEDS: AMITRIPTYLINE HCL 10 MG TAB PO SCH (21:11)
[2024-12-28] MEDS: ATORVASTATIN 40 MG TAB PO SCH (21:11)
[2024-12-28] MEDS: SERTRALINE HCL 100 MG TABLET PO SCH (21:11)
[2024-12-29 06:24] LABS: Basophils # (auto) 0.09 K/uL (0.00-0.20); Basophils % (auto) 0.9 %; Eosinophils # (auto) 0.13 K/uL (0.00-0.50); Eosinophils % (auto) 1.3 %; Hematocrit (blood only) 34.9 % (37.0-47.0); Hemoglobin 11.3 g/dl (12.0-16.0); Immature Granulocytes # (auto) 0.05 K/uL (0.01-0.20); Immature Granulocytes % (auto) 0.5 %; Lymphocytes # (auto) 2.77 K/uL (1.20-3.40); Mean Corpuscular Hemoglobin 29.6 pg (25.0-34.0); Mean Corpuscular Hgb Conc 32.4 g/dL (32.0-36.0); Mean Corpuscular Volume 91.4 fL (80.0-100.0); Monocytes # (auto) 0.96 K/uL (0.11-0.59); Monocytes % (auto) 9.7 %; Neutrophils # (auto) 5.89 K/uL (1.40-6.50); Neutrophils % (auto) 59.6 %; Platelet Count 209 K/uL (130-400); RDW Coefficient of Variation 12.7 % (11.5-14.5); RDW Standard Deviation 42.1 fL (36.4-46.3); Red Blood Count 3.82 M/uL (4.20-5.40); White Blood Count 9.89 K/ul (4.8-10.8)
[2024-12-29 06:50] LABS: Calcium 9.8 mg/dl (8.6-10.3); Creatinine Clr Calc Pharmacy 33.6 ml/min; Magnesium 1.9 mg/dl (1.7-2.4); Potassium 4.3 mmol/L (3.5-5.1)
--- NOTE | 2024-12-29 07:21 | Electrocardiogram Report ---
Test Reason : Blood Pressure : */* mmHG Vent. Rate : 61 BPM Atrial Rate : 61 BPM P-R Int : 170 ms QRS Dur : 88 ms QT Int : 444 ms P-R-T Axes : 61 -2 27 degrees QTcB Int : 446 ms Normal sinus rhythm Incomplete right bundle branch block Confirmed by Cas Isabel ([id number]) on 12/29/2024 7:20:45 AM Referred By: REFERRED SELF Confirmed By: Cas Isabel
[2024-12-29] MEDS: ISOSORBIDE MONO EXTENDED REL 60 MG TABCR PO SCH (07:30)
[2024-12-29 07:57] VITALS: BP 114/74; RESP 18; TEMP 97.9; O2SAT 96
--- NOTE | 2024-12-29 11:00 | Discharge Summary ---
Discharge Summary Date of Service December 29, 2024 Principal Dx & Hospital Course #1 = Principal Diagnosis (1) Chest pain: 74-year-old female with past medical history significant for COPD, dyslipidemia, nocturnal hypoxemia due to emphysema, history of CAD, history of chronic heart failure with preserved ejection fraction, history of hypertension, GERD, history dysphagia, CKD stage III, osteoarthritis, migraine, depression, general anxiety disorder, lumbar spinal stenosis, adjustment disorder with anxious mood comes in because of chest pain and dizziness. Patient states around 1:30 PM she noticed left-sided chest pain sharp in nature and 6/10 in severity. No radiation. She also felt slight dizzy and she has to lean to the wall and slowly lowered down. Patient states in the ER she stood couple of times but there was no dizziness. Currently chest pain is minimal. Denies any shortness of breath. Once in a while she gets sweating. Vision is not great. Sometimes get headaches but currently no headache. No runny nose. No sore throat. Appe tite is okay. No nausea. No abdominal pain. Normal bowel and bladder movements. Currently hemodynamics are okay. Chest pain- has been ongoing for some time -per cardiology unlikely to be cardiac -likely costocondritis -treat with voltaren cream -increase nitrate Aortic mural thrombus CTA chest: Atherosclerotic changes of the arch and descending thoracic aorta with mural Thrombosis cause about 20-30% luminal narrowing. Nonobstructive CAD Cardiac cath in January 2020 On aspirin, statin and beta-randi and Imdur Carotid artery disease On aspirin and statin Chronic diastolic CHF On Lasix 20 mg 3 times a week Hypertension On Imdur, lisinopril, metoprolol succinate We will monitor History of COPD Continue home inhalers Hyperlipidemia On statin and Zetia GERD On omeprazole Depression Generalized anxiety disorder On Zoloft and hydroxyzine as needed and amitriptyline Notes For Next Care Provider 74-year-old female with past medical history significant for COPD, dyslipidemia, nocturnal hypoxemia due to emphysema, history of CAD, history of chronic heart failure with preserved ejection fraction, history of hypertension, GERD, history dysphagia, CKD stage III, osteoarthritis, migraine, depression, general anxiety disorder, lumbar spinal stenosis, adjustment disorder with anxious mood comes in because of chest pain and dizziness. Patient states around 1:30 PM she noticed left-sided chest pain sharp in nature and 6/10 in severity. On medicine, cardiology consulted, reproducible chest pain, likely noncardiac in origin. On 12/29/2024 patient medically stable for discharge home. To do: [ ] optimize treatment of noncardiac chest pain [ ] f/u with vascular surgery for aortic mural thrombosis Medication Changes From Visit -see below Admission HPI Per Admitting Provider 74-year-old female with past medical history significant for COPD, dyslipidemia, nocturnal hypoxemia due to emphysema, history of CAD, history of chronic heart failure with preserved ejection fraction, history of hypertension, GERD, history dysphagia, CKD stage III, osteoarthritis, migraine, depression, general anxiety disorder, lumbar spinal stenosis, adjustment disorder with anxious mood comes in because of chest pain and dizziness. Patient states around 1:30 PM she noticed left-sided chest pain sharp in nature and 6/10 in severity. No radiation. She also felt slight dizzy and she has to lean to the wall and slowly lowered down. Patient states in the ER she stood couple of times but there was no dizziness. Currently chest pain is minimal. Denies any shortness of breath. Once in a while she gets sweating. Vision is not great. Sometimes get headaches but currently no headache. No runny nose. No sore throat. Appetite is okay. No nausea. No abdominal pain. Normal bowel and bladder movements. Currently hemodynamics are okay. Past medical history. As mentioned above Past surgical history. Allograft for spine surgery. Bone marrow aspiration. Left carpal tunnel surgery. . Colonoscopy. Cystoscopy. Dilatation curettage. EGD. Insertion of interbody biomechanical device. Neck spine fusion surgery. Laminectomy. Cholecystectomy. Right shoulder surgery. Spinal fusion surgery. Total hysterectomy. Social history. Quit smoking 2020. Smoked 0.3 pack a day for 51 years. No alcohol use. No drug use. Family history. Father had heart attack. Brother had hypertension. Mother had hypertension. Sister had breast cancer. Paternal aunt had breast cancer. Discharge Exam Gen: A&O 3 NAD HEENT: NCAT, EOMI, not icteric. External ears normal. No rhinorrhea. Moist mucous membranes. Neck: Supple, full range of motion, no observable masses, No meningeal sign. Lungs: No Respiratory distress. CV: RRR, no edema. reproducible chest pain to palpation Abdomen: Soft, nondistended, No rebound tenderness. MSK: No joint swelling, no redness. Skin: No rashes, petechiae, lesions. Normal color per patient. Neuro: Normal Gait, Grossly intact. Psych: Appropriate for situation. Updated Medication List Medication Instructions Recorded Confirmed Type amitriptyline 10 mg tablet 20 mg PO HS 09/20/18 12/27/24 History aspirin 81 mg tablet,delayed 81 mg PO QAM 09/20/18 12/27/24 History release omeprazole 40 mg capsule,delayed 40 mg PO QAM 09/20/18 12/27/24 History release sertraline 100 mg tablet 200 mg PO HS 09/20/18 12/27/24 History calcium carbonate (Calcium 600) 600 mg PO QAM 01/02/19 12/27/24 History alendronate 70 mg tablet 70 mg PO WK 11/05/19 12/27/24 History ezetimibe 10 mg tablet (Zetia) 10 mg PO QAM 11/05/19 12/27/24 History atorvastatin 80 mg tablet 80 mg PO QPM 04/10/23 12/27/24 History hydroxyzine HCl 25 mg tablet 25 mg PO Q6H PRN Anxiety 04/10/23 12/27/24 History acetaminophen 325 mg tablet 650 mg (2 x 325 mg) PO Q8H #1 tab 04/12/23 12/27/24 Rx hydrocodone 5 mg-acetaminophen 325 1 tab PO Q8H PRN pain 1 day #1 tab 04/12/23 12/27/24 Rx mg tablet cyclobenzaprine 5 mg tablet 5 mg PO HS PRN Muscle Spasm 04/22/23 12/27/24 History nitroglycerin 0.4 mg sublingual 0.4 mg sublingual UD PRN Other 04/22/23 12/27/24 History tablet tizanidine 4 mg tablet 4 mg PO Q8H PRN Spasms 04/22/23 12/27/24 History umeclidinium 62.5 mcg-vilanterol 1 inh inhalation QAM 04/22/23 12/27/24 History 25 mcg/actuation powdr for inhalation (Anoro Ellipta) isosorbide mononitrate 30 mg 30 mg PO QAM #30 tabs 11/09/23 12/27/24 Rx tablet,extended release 24 hr lisinopril 2.5 mg tablet 2.5 mg PO QAM #30 tabs 11/09/23 12/27/24 Rx furosemide 40 mg tablet 20 mg PO UD 12/27/24 12/27/24 History gabapentin 300 mg capsule 300 mg PO QAM 12/27/24 12/27/24 History gabapentin 300 mg capsule 600 mg PO HS 12/27/24 12/27/24 History metoprolol succinate 25 mg 12.5 mg PO DAILY 12/27/24 12/27/24 History tablet,extended release 24 hr diclofenac sodium 1 % topical gel 2 g topical QID #100 grams 12/29/24 Rx (Voltaren Arthritis Pain) isosorbide mononitrate 60 mg 60 mg PO QAM #30 tabs 12/29/24 Rx tablet,extended release 24 hr Hospital Stay Data Consultations 12/27/24 19:22 ED Decision to Admit Stat 12/28/24 08:00 Consult Cardiology Routine Consult Vascular Surgery Routine Diagnostic Imagining Performed 12/27/24 17:12 CT head/brain wo con Stat CTA chest dissec wo/w con [CT angio chest dissec wo/w con] Stat Pending Results Patient Have Any Pending Studies at Discharge: No Discharge Instructions Given to Patient (Per Discharging Provider) 1. Please take medications as prescribed. 2. Utilize voltaren cream on your chest for costochondritis. Total Time Total Time Spent Total Time Spent (In Minutes): I spent a total of 35 minutes in direct patient care, including [id number] t tracey with the patient and/or family, reviewing medical records, ordering and reviewing diagnostic tests, and coordinating care with other healthcare providers. This time includes: history taking, physical examination, medical decision making, counseling, ECG interpretation, imaging interpretation, lab interpretation, orders, and education, excluding time spent in the performance of separately billed services.
[2024-12-29 11:08] VITALS: PULSE 68
[2024-12-30] MEDS ORDERED: FUROSEMIDE 20 MG TAB PO SCH (09:00)
== END 2024-12-29 11:53 | disposition home or self-care (01) | DRG 206 ==
LOC: 2S 16:34 → ED 16:34 → SUATTDRO 21:36 → 2S 22:20

== ENCOUNTER 2025-03-30 10:53 | Inpatient (IN) ==
--- NOTE | 2025-03-30 10:57 | Emergency Department Note ---
Impression & Plan Chest pain, Shortness of breath ED Provider Note NAME: NAOMI ARANA AGE: 74 SEX: F : 1950 ARRIVES VIA: Ambulance INFORMANT: Patient, ED PROVIDER(S): Brad Comer MD CHIEF COMPLAINT: MEDICAL DECISION MAKING: Patient presents due to concern for chest pain and shortness of breath. Patient does have an element of volume overload based on history and exam. [id number] was obtained along with IV and blood work and chest x-ray. Patient's blood work shows a normal white count hemoglobin 10.8 with normal platelet count. Kidney function unremarkable. BNP and troponin not elevated. Patient's chest x-ray does not show obvious pulmonary edema but clinically the patient does have bibasilar crackles and lower extremity edema with associated weight gain. The patient was ordered IV Lasix. Patient's chest pain has improved. May be a hypertensive component as well. I did see with the on-call hospitalist service Dr. Todd and the patient was admitted to the medicine service. Discussion w/ other healthcare providers: Dr. Todd inpatient medicine service Prior /Outside records reviewed: Per review of the patient's weight is up about 4 kg from February 08. I reviewed part of the discharge summary from 03/31/2025. Patient had present with chest pain known history of COPD dyslipidemia nocturnal hypoxemia CAD heart failure with preserved ejection fraction hypertension. Patient last cardiac cath in January 2020 with nonobstructive CAD per this discharge summary. Chronic diastolic CHF on Lasix 3 times a week. Per review of cardiology consultation from Edward Oliver from December 28 the patient did have a negative Lexiscan nuclear stress test in July 2024. Review of the patient's echocardiogram report from 03/30/2025 shows that the patient has an EF of 60 to 65% mild tricuspid regurgitation mildly elevated pulmonary artery pressures. Grade 1 diastolic dysfunction noted. LV systolic function is normal as is the wall motion and ventricular wall thickness. Differential diagnosis: Reactive airway disease, pneumonia, pneumothorax, COPD, CHF, ACS, pulmonary embolism, musculoskeletal, GERD as well as other pathologies were considered. Diagnostics, as interpreted by me: ECG: Sinus with occasional PVCs, rate of 78 normal intervals normal axis no ST elevations T wave version lead III. Cardiac monitoring: An order was placed for continuous cardiac monitoring. The monitor shows a rate of 79 with sinus rhythm. Patient was placed on pulse oximetry Medical decision rules: None Imaging studies: I informally interpreted the patient's chest x-ray without obvious pneumonia with formal report to follow. HPI: Patient presents due to concern for left-sided chest pain that she described as sharp that began around 10 AM. The patient did receive 2 sublingual nitro as well as full dose aspirin with improvement in symptoms. Initially was 8 out of 10 currently 5. Patient states she has not had any radiation of pain. No nausea or vomiting. Patient does have a history of CHF and does follow with Edward Oliver PA-C. She reports that she is mostly compliant with medications but she has not been taking her Lasix. Last time that she took this was on Monday. Patient reports that she is put on about 10 to 15 pounds in about a week. Patient states that she took her normal medications with exception of the Lasix this morning. Patient states that she has had a dry nonproductive cough. Patient has noticed leg swelling and pedal edema. PAST MEDICAL HISTORY: See Below PAST SURGICAL HISTORY: See Below SOCIAL HISTORY: See Below HOME MEDICATIONS: See Below ALLERGIES: See Below VITALS: See Below PHYSICAL EXAMINATION: GENERAL: NAD, non-toxic. EYE EXAM: Normal conjunctiva. PERRL, no anisocoria and EOM's grossly intact w/o pain. OROPHARYNX: Moist mucus membranes, grossly normal dentition. NECK: Trachea midline, no stridor. LUNGS: Bibasilar crackles noted. Normal chest wall mechanics. HEART: NSR, no MRG. ABDOMEN: Abdomen soft, non-tender, no masses, no rebound or guarding. BACK: No CVA TTP. SKIN: No rashes and no bruising. UPPER EXTREMITIES: Upper extremities are grossly normal. LOWER EXTREMITIES: Grossly normal, 1-2+ symmetric lower extremity edema with associated pedal edema. No obvious asymmetry or calf pain. NEURO EXAM: Awake and alert, follows commands, no obvious facial asymmetry, normal speech, moves all 4 extremities. Past Med/Surg History Problem List (Updated 03/31/25 @ 08:07 by Brad Comer MD) Shortness of breath (Acute) Chest pain (Acute) Atypical chest pain Diastolic congestive heart failure ASCVD (arteriosclerotic cardiovascular disease) Dysphagia Chest pain at rest Aortic mural thrombus (Acute) Near syncope (Acute) Dizziness (Acute) Chest pain (Acute) Chest pain (Acute) HTN (hypertension) Postoperative anemia Weakness (Acute) Falling (Acute) Anemia (Acute) Acute head trauma (Acute) History of lumbar surgery (Acute) Hyponatremia (Acute) Lumbar spinal stenosis Ambulatory dysfunction Multiple falls HLD (hyperlipidemia) CKD (chronic kidney disease), stage III Nonobstructive atherosclerosis of coronary artery (2018) LAD and circumflex free of major disease. RCA with 40 to 50% mid right coronary stenosis and 40% stenosis at the takeoff of the PDA. Tobacco use (Chronic) GERD (gastroesophageal reflux disease) (Chronic) Diastolic dysfunction (Chronic) History of cholecystectomy (Chronic) History of hysterectomy (Chronic) Nocturnal hypoxia (Chronic) reported secondary to COPD. Pt not on home oxygen HS secondary to reported insurance issues Encounter for smoking cessation counseling (Acute) COPD (chronic obstructive pulmonary disease) (Chronic) Anxiety (Chronic) Osteoarthritis (Chronic) Osteoporosis (Chronic) Depression (Chronic) Medical History Cervical spinal stenosis Vasospastic angina NSTEMI (non-ST elevated myocardial infarction) ACS (acute coronary syndrome) Surgical History History of section History of arthroscopy of right shoulder History of carpal tunnel surgery S/P cervical spinal fusion History of lumbar fusion Family History Sister Breast cancer Aunt Breast cancer Father Coronary heart disease Brother Hypertension Father Hypertension Social History Smoking Status: Former smoker Tobacco Type: Cigarettes Second Hand Exposure: No; Do You Dip or Chew Tobacco: No; Hx Alcohol Use: No Hx Substance Use: No Preferred Language: Romansh Communication Ability: Effective Lifter/Driver Required: No Beliefs That Will Affect Care: None Current Living Situation: Alone Current Living Situation Comment: Home alone in her own appartment Feels Safe at Home: Yes Safety Concerns: Feels Safe At This Time Assistive Devices: Denture - Upper and Denture - Lower Allergies Allergies Allergy/AdvReac Type Severity Reaction Status Date / Time chlorpheniramine Allergy Severe Anaphylaxis Verified 12/27/24 20:02 dextromethorphan Allergy Severe Anaphylaxis Verified 12/27/24 20:02 latex Allergy Mild RASH Verified 12/27/24 20:02 Iodinated Contrast Media Allergy Unknown . Verified 12/27/24 20:02 Penicillins Allergy Unknown Unknown Verified 12/27/24 20:02 varenicline AdvReac Severe NAUSEA Verified 12/27/24 20:02 benzalkonium chloride AdvReac Intermediate VERTIGO Verified 12/27/24 20:02 ibuprofen AdvReac Intermediate ACID REFLEX Verified 12/27/24 20:02 ofloxacin AdvReac Intermediate VERTIGO Verified 12/27/24 20:02 Corticosteroids AdvReac Unknown [email or web address] Verified 12/27/24 20:02 (Glucocorticoids) and hyper Home Meds Home Medications Medication Instructions Recorded Confirmed amitriptyline 10 mg tablet 20 mg PO HS 09/20/18 03/30/25 aspirin 81 mg tablet,delayed 81 mg PO QAM 09/20/18 03/30/25 release omeprazole 40 mg capsule,delayed 40 mg PO QAM 09/20/18 03/30/25 release sertraline 100 mg tablet 200 mg PO HS 09/20/18 03/30/25 calcium carbonate (Calcium 600) 600 mg PO QAM 01/02/19 03/30/25 alendronate 70 mg tablet 70 mg PO WK 11/05/19 03/30/25 ezetimibe 10 mg tablet (Zetia) 10 mg PO QAM 11/05/19 03/30/25 atorvastatin 80 mg tablet 80 mg PO QPM 04/10/23 03/30/25 hydroxyzine HCl 25 mg tablet 25 mg PO Q6H PRN Anxiety 04/10/23 03/30/25 nitroglycerin 0.4 mg sublingual 0.4 mg sublingual UD PRN Chest Pain 04/22/23 03/30/25 tablet umeclidinium 62.5 mcg-vilanterol 1 inh inhalation QAM 04/22/23 03/30/25 25 mcg/actuation powdr for inhalation (Anoro Ellipta) furosemide 40 mg tablet 20 mg PO UD 12/27/24 03/30/25 gabapentin 300 mg capsule 300 mg PO HS 12/27/24 03/30/25 gabapentin 300 mg capsule 300 mg PO QAM 12/27/24 03/30/25 tizanidine 4 mg tablet 4 mg PO Q8H PRN Muscle Spasm 02/08/25 03/30/25 Previous Rx's Medication Instructions Recorded acetaminophen 325 mg tablet 650 mg (2 x 325 mg) PO Q8H #1 tab 04/12/23 hydrocodone 5 mg-acetaminophen 325 1 tab PO Q8H PRN pain 1 day #1 tab 04/12/23 mg tablet Results & Data (ED) Vital Signs Vital Signs - 24 hr 03/30/25 10:53 03/30/25 11:06 03/30/25 11:08 Temperature 36.9 C Temperature Source Oral Pulse Rate 76 Pulse Rate from SpO2 Sensor Respiratory Rate 15 Respiratory Effort / Characteristics Short of Breath Short of Breath Respiratory Depth Blood Pressure 117/61 Blood Pressure Mean 79 Blood Pressure Position Semi-fowlers Pulse Oximetry 91 Oxygen Delivery Method Room Air Sepsis Recent Fever Within 48 Hours No Sepsis New/Unexplained Change in Mental Status No Sepsis Action Taken by Nursing No Action Required 03/30/25 11:09 03/30/25 11:13 03/30/25 11:13 Temperature Temperature Source Pulse Rate 74 Pulse Rate from SpO2 Sensor 75 Respiratory Rate 20 Respiratory Effort / Characteristics Non-Labored Spontaneous Respiratory Depth Normal Blood Pressure Blood Pressure Mean Blood Pressure Position Pulse Oximetry Oxygen Delivery Method Room Air Sepsis Recent Fever Within 48 Hours Sepsis New/Unexplained Change in Mental Status Sepsis Action Taken by Nursing 03/30/25 11:13 03/30/25 11:18 03/30/25 11:27 Temperature Temperature Source Pulse Rate 71 Pulse Rate from SpO2 Sensor 70 Respiratory Rate 20 Respiratory Effort / Characteristics Respiratory Depth Blood Pressure 106/70 Blood Pressure Mean 74 Blood Pressure Position Pulse Oximetry 93 Oxygen Delivery Method Room Air Sepsis Recent Fever Within 48 Hours Sepsis New/Unexplained Change in Mental Status Sepsis Action Taken by Nursing 03/30/25 11:27 03/30/25 11:30 03/30/25 11:30 Temperature Temperature Source Pulse Rate Pulse Rate from SpO2 Sensor Respiratory Rate Respiratory Effort / Characteristics Respiratory Depth Blood Pressure 128/63 130/86 131/56 L Blood Pressure Mean 85 98 91 Blood Pressure Position Pulse Oximetry Oxygen Delivery Method Sepsis Recent Fever Within 48 Hours Sepsis New/Unexplained Change in Mental Status Sepsis Action Taken by Nursing 03/30/25 11:30 03/30/25 12:01 Temperature Temperature Source Pulse Rate 116 H 73 Pulse Rate from SpO2 Sensor 98 H Respiratory Rate 17 Respiratory Effort / Characteristics Respiratory Depth Blood Pressure Blood Pressure Mean Blood Pressure Position Pulse Oximetry 97 Oxygen Delivery Method Sepsis Recent Fever Within 48 Hours Sepsis New/Unexplained Change in Mental Status Sepsis Action Taken by Long-Term Medications Current Medication List: was personally reviewed by me Laboratory Data Attestation: I reviewed the patient's lab results. 03/31/25 07:29 03/30/25 11:07 Lab Results 03/30/25 03/30/25 Range/Units 11:07 11:12 WBC 7.43 (4.8-10.8) K/ul RBC 3.61 L (4.20-5.40) M/uL Hgb 10.8 L (12.0-16.0) g/dl POC Hgb 10.9 L (12.0-16.0) g/dl Hct 33.4 L (37.0-47.0) % POC Hct 32 L (37-47) % MCV 92.5 (80.0-100.0) fL MCH 29.9 (25.0-34.0) pg MCHC 32.3 (32.0-36.0) g/dL RDW Std Deviation 44.0 (36.4-46.3) fL RDW Coeff of Melany 13.0 (11.5-14.5) % Plt Count 199 (130-400) K/uL MPV 10.1 (9.4-12.4) fL Immature Gran % (Auto) 0.4 % Neut % (Auto) 57.3 % Lymph % (Auto) 29.2 % [place] % (Auto) 10.0 % Eos % (Auto) 2.2 % Baso % (Auto) 0.9 % Neut # (Auto) 4.26 (1.40-6.50) K/uL Lymph # (Auto) 2.17 (1.20-3.40) K/uL [place] # (Auto) 0.74 H (0.11-0.59) K/uL Eos # (Auto) 0.16 (0.00-0.50) K/uL Baso # (Auto) 0.07 (0.00-0.20) K/uL Immature Gran # (Auto) 0.03 (0.01-0.20) K/uL POC Sodium 140 (135-144) mmol/L Sodium 138 (136-145) mmol/L POC Potassium 4.4 (3.3-5.0) mmol/L Potassium 4.4 (3.5-5.1) mmol/L POC Chloride 104 (101-112) mmol/L Chloride 106 (98-107) mmol/L Carbon Dioxide 29 (21-32) mmol/L POC Total CO2 27 (24-31) mmol/L Anion Gap 3 (3-11) POC Anion Gap 14.0 L (16-25) mmol/L POC BUN 19 H (7-18) mg/dl BUN 20 (6-23) mg/dl Creatinine 1.06 (0.6-1.2) mg/dl POC Creatinine 1.1 (0.6-1.3) mg/dl Est Cr Clr Drug Dosing 40.9 ml/min eGFR 55.12 BUN/Creatinine Ratio 18.9 (10-20) Glucose 104 H (70-99(Fasting)) mg/dl POC Glucose (other) 103 H (70-99) mg/dl Calcium 9.0 (8.6-10.3) mg/dl POC Ioniz Calcium Uzair 1.14 (1.12-1.32) mmol/l Total Bilirubin 0.3 (0.2-1.0) mg/dl AST 26 (13-39) U/L ALT 17 (7-52) U/L Alkaline Phosphatase 108 H (34-104) U/L Troponin I High Sens 3.0 (0-14) pg/ml B-Natriuretic Peptide 29 (0-100) pg/ml Total Protein 7.2 (6.0-8.3) gm/dl Albumin 4.0 (3.4-5.0) gm/dl Globulin 3.2 (2.5-4.0) gm/dl Albumin/Globulin Ratio 1.3 (0.9-2) Lipase 38 (11-82) U/L Hepatitis C Ab Screen Negative (Negative) Administered Medications Al Hydrox/Mg Hydrox/Simethicone (Aluminum/Magnesium Susp 30 Ml Udc) 15 ml PO Q4H PRN PRN Reason: Dyspepsia Stop: 04/29/25 13:36 Last Admin: 03/30/25 20:06 Dose: 15 ml Documented By: LELAND Amitriptyline HCl (Amitriptyline Hcl 10 Mg Tab) 20 mg PO HS KELSIE Stop: 04/29/25 20:59 Last Admin: 03/30/25 20:06 Dose: Not Given Documented By: LELAND Atorvastatin Calcium (Atorvastatin 40 Mg Tab) 80 mg PO QPM KELSIE Stop: 04/29/25 20:59 Last Admin: 03/30/25 19:55 Dose: 80 mg Documented By: LELAND Enoxaparin Sodium (Enoxaparin Inj 40 Mg/0.4 Ml Syr) 40 mg SQ Q24H KELSIE Stop: 04/29/25 13:59 Last Admin: 03/30/25 16:52 Dose: 40 mg Documented By: VLADIMIR Gabapentin (Gabapentin 300 Mg Cap) 300 mg PO HS KELSIE Stop: 04/29/25 20:59 Last Admin: 03/30/25 19:55 Dose: 300 mg Documented By: LELAND Hydroxyzine HCl (Hydroxyzine Hcl 25 Mg Tab) 25 mg PO Q6H PRN PRN Reason: Anxiety Stop: 04/29/25 13:36 Last Admin: 03/30/25 20:06 Dose: 25 mg Documented By: LELAND Melatonin (Melatonin 3 Mg Tab) 3 mg PO HS PRN PRN Reason: Sleep Stop: 04/29/25 13:36 Last Admin: 03/30/25 20:06 Dose: 3 mg Documented By: LELAND Metoprolol Succinate (Metoprolol Succ 25mg Ext Rel Tab) 12.5 mg PO QA KELSIE Stop: 04/29/25 16:29 Last Admin: 03/30/25 16:52 Dose: 12.5 mg Documented By: VLADIMIR Pantoprazole Sodium (Pantoprazole 40 Mg Tab) 40 mg PO BID KELSIE Stop: 04/29/25 20:59 Last Admin: 03/30/25 19:55 Dose: 40 mg Documented By: LELAND Sertraline HCl (Sertraline Hcl 100 Mg Tablet) 200 mg PO HS [facility] Stop: 04/29/25 20:59 Last Admin: 03/30/25 19:55 Dose: 200 mg Documented By: LELAND Discontinued Medications Furosemide (Furosemide 40 Mg/4 Ml Vial) 40 mg IV ONE ONE Stop: 03/30/25 11:32 Last Admin: 03/30/25 11:39 Dose: 40 mg Documented By: VLADIMIR Famotidine (Pepcid 20mg Iv Push) 20 mg in 5 mls @ 2.5 mls/min IV NOW STA Stop: 03/30/25 12:53 Last Admin: 03/30/25 13:10 Dose: 2.5 mls/min Documented By: VLADIMIR Metoprolol Succinate (Metoprolol Succ 25mg Ext Rel Tab) 12.5 mg PO QAM KELSIE Stop: 04/29/25 13:14 Last Admin: 03/30/25 16:54 Dose: Not Given Documented By: VLADIMIR Imaging Data Radiologist's Impression: Chest X-Ray 03/30/25 11:04 XR chest 1V portable HISTORY: 74 years-old Female Chest pain, nonspecific COMPARISON: 02/08/2025 TECHNIQUE: AP view the chest FINDINGS: Cardiac silhouette is enlarged. Atherosclerosis of the aorta. No pneumothorax, pleural effusion, airspace consolidation or pulmonary edema. Linear bibasilar subsegmental atelectasis. Partially imaged cervical and lumbar spinal fusion hardware. Bones appear grossly intact. IMPRESSION: Subsegmental bibasilar atelectasis. ACT 112: Negative or not required by law. The above report was generated using voice recognition software. It may contain grammatical, syntax or spelling errors. Electronically signed by: Eladio Pascual M.D. 03/30/2025 11:17 AM Discharge Plan Visit Data Chief Complaint: Chest Pain ED Provider: Brad Comer Discharge Problem: Chest pain, Shortness of breath Patient Disposition: Admitted As Inpatient Condition: Good Discharge Instructions Interventions: ED Discharge Assessment Last Done: 03/30/25 17:34 Discharge Problem: Chest pain Qualifiers: Chest pain type: unspecified Qualified Code(s): R07.9 - Chest pain, unspecified
--- NOTE | 2025-03-30 11:18 | XRay Report ---
XR chest 1V portable HISTORY: 74 years-old Female Chest pain, nonspecific COMPARISON: 02/08/2025 TECHNIQUE: AP view the chest FINDINGS: Cardiac silhouette is enlarged. Atherosclerosis of the aorta. No pneumothorax, pleural effusion, airs pace consolidation or pulmonary edema. Linear bibasilar subsegmental atelectasis. Partially imaged ce rvical and lumbar spinal fusion hardware. Bones appear grossly intact. IMPRESSION: Subsegmental bibasilar atelectasis. ACT 112: Negative or not required by law. The above report was generated using voice recognition software. It may contain grammatical, syntax o r spelling errors. Electronically signed by: Eladio Pascual M.D. 03/30/2025 11:17 AM
[2025-03-30 11:20] LABS: Hematocrit (blood only) 33.4 % (37.0-47.0); Hemoglobin 10.8 g/dl (12.0-16.0); Immature Granulocytes # (auto) 0.03 K/uL (0.01-0.20); Immature Granulocytes % (auto) 0.4 %; Mean Corpuscular Hemoglobin 29.9 pg (25.0-34.0); Mean Corpuscular Volume 92.5 fL (80.0-100.0); Platelet Count 199 K/uL (130-400); RDW Standard Deviation 44.0 fL (36.4-46.3); Red Blood Count 3.61 M/uL (4.20-5.40); White Blood Count 7.43 K/ul (4.8-10.8)
[2025-03-30 11:37] LABS: Alanine Aminotransferase 17.0 U/L (7-52); Albumin Globulin Ratio 1.3 (0.9-2); Alkaline Phosphatase 108.0 U/L (34-104); Anion Gap 3.0 (3-11); Bilirubin,Total 0.3 mg/dl (0.2-1.0); Blood Urea Nitrogen 20.0 mg/dl (6-23); Calcium 9.0 mg/dl (8.6-10.3); Carbon Dioxide 29.0 mmol/L (21-32); Chloride 106.0 mmol/L (98-107); Creatinine Clr Calc Pharmacy 40.9 ml/min; Globulin 3.2 gm/dl (2.5-4.0); Glucose 104.0 mg/dl (70-99(Fasting)); Lipase 38.0 U/L (11-82); Potassium 4.4 mmol/L (3.5-5.1); Sodium 138.0 mmol/L (136-145); Total Protein 7.2 gm/dl (6.0-8.3)
[2025-03-30] MEDS: FUROSEMIDE 40 MG/4 ML VIAL IV ONE (11:39)
--- NOTE | 2025-03-30 12:35 | History & Physical Report ---
Date of Service March 30, 2025 Assessment & Plan (1) Atypical chest pain: (2) Diastolic congestive heart failure: Plan Ms. Fan is a 74-year-old female with past medical history significant for COPD, dyslipidemia, nocturnal hypoxemia due to emphysema (never started on home O2), CAD, HFpEF, hypertension, GERD, CKD stage III, osteoarthritis, migraine, depression, general anxiety disorder, lumbar spinal stenosis, adjustment disorder with anxious mood presented to [facility] ED due to chest pain. #Atypical chest pain #GERD patient reports this sensation more equivocal to GERD than pain she experiences prior musculoskeletal tenderness noted, per chart review chronic Is not taking Imdur? or Metoprolol?--> ask multiple times and patient denies knowing or taking those medications Per Edward Oliver documentation "Nonobstructive coronary disease per cardiac catheterization in 2017 and August 2019. Lexiscan nuclear stress testing nonischemic in July 2024. Continue medical management. Patient with past poor tolerance to low-dose lisinopril. Consider titration of Imdur to 60 mg/day noting possible vasospastic component. " -Will resume imdur at 30mg daily as patient denies even taking this medication -Will resume metoprolol at 12.5mg daily With recent echo in 12/2024 and negative trops, will defer repeat ECHO at this time Admit on tele trend troponin increase home ppi to bid #Nonobstructive CAD s/p [facility] 2019 negative lexiscan in 07/2024 resume imdur as above given vasospatic component #HFpEF does not appear very volume overloaded, perhaps mild congestion on review of CXR up 4 kg since 01/2025, denies SOB or JANE s/p IV lasix daily weight resume home lasix dosing in am #Chronic pain continue home gabapentin bid and percocet prn checked PDMP #mild bilateral internal carotid artery disease, 50 to 69% right internal carotid artery disease via August 2021 duplex. 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 cause about 20-30% luminal narrowing via December 27, 2024 CT a follows [facility] #Prior tobacco abuse quit 2020 #Hypertension On Imdur, lisinopril, metoprolol succinate #COPD Continue home inhalers #Hyperlipidemia On statin and Zetia #GERD On omeprazole #Depression Generalized anxiety disorder On Zoloft and hydroxyzine as needed and amitriptyline DVT ppx lovenox admit med tele full code Admission and Anticipated Discharge Date Admission Date: Time spent evaluating patient, direct bedside care, chart review, placing orders, interpretation of diagnostic studies, discussion with consultants, patient, and family members, as well as other required patient management activities is 75minutes. History of Present Illness Chief Complaint: chest pain Primary Care Provider: Cedric Downey MD Ms. Fan is a 74-year-old female with past medical history significant for COPD, dyslipidemia, nocturnal hypoxemia due to emphysema (never started on home O2), CAD, HFpEF, hypertension, GERD, CKD stage III, osteoarthritis, migraine, depression, general anxiety disorder, lumbar spinal stenosis, adjustment disorder with anxious mood presented to [facility] ED due to chest pain. Patient states this chest pain is different from her chronic chest pain. This is more epigastric and burning in sensation. Patient states noting makes it better and its persistent. She takes nitroglycerin as needed, last 2 weeks ago. She doesn't know what "Imdur" or "Metoprolol" are--she doesn't think she takes those and she doesn't recall Edward Oliver mentioning those medications. She denies nausea, vomiting, or changes in appetite. The pain is not worsened by exertion. She isn't sure if its worse with food. She reports anxiety and upset over the pain. She does not currently smoke,quit in 2020. She denies EtOH or other non- prescribed substances. She reports weight gain of 10lbs. She takes her lasix on MWF. She has reduced her gabapentin from 600mg qhs to 300mg qhs, but doesn't feel she can reduce any more. In the ED, vitals were notable for BP of 100-130s HR of 70s and O2 sat of high 90s on room air Imaging revealed mild congestion on CXR BNP lower than prior values 29, trop negative x2 EKG qtc 442 PVCs noted ED interventions: lasix 40mg IV x 1 Patient to be admitted to med/tele for further evaluation and management of atypical chest pain Allergies Allergy/AdvReac Type Severity Reaction Status Date / Time chlorpheniramine Allergy Severe Anaphylaxis Verified 12/27/24 20:02 dextromethorphan Allergy Severe Anaphylaxis Verified 12/27/24 20:02 latex Allergy Mild RASH Verified 12/27/24 20:02 Iodinated Contrast Media Allergy Unknown . Verified 12/27/24 20:02 Penicillins Allergy Unknown Unknown Verified 12/27/24 20:02 varenicline AdvReac Severe NAUSEA Verified 12/27/24 20:02 benzalkonium chloride AdvReac Intermediate VERTIGO Verified 12/27/24 20:02 ibuprofen AdvReac Intermediate ACID REFLEX Verified 12/27/24 20:02 ofloxacin AdvReac Intermediate VERTIGO Verified 12/27/24 20:02 Corticosteroids AdvReac Unknown [email or web address] Verified 12/27/24 20:02 (Glucocorticoids) and hyper Home Medications Medication Instructions Recorded Confirmed Type amitriptyline 10 mg tablet 20 mg PO HS 09/20/18 03/30/25 History aspirin 81 mg tablet,delayed 81 mg PO QAM 09/20/18 03/30/25 History release omeprazole 40 mg capsule,delayed 40 mg PO QAM 09/20/18 03/30/25 History release sertraline 100 mg tablet 200 mg PO HS 09/20/18 03/30/25 History calcium carbonate (Calcium 600) 600 mg PO QAM 01/02/19 03/30/25 History alendronate 70 mg tablet 70 mg PO WK 11/05/19 03/30/25 History ezetimibe 10 mg tablet (Zetia) 10 mg PO QAM 11/05/19 03/30/25 History atorvastatin 80 mg tablet 80 mg PO QPM 04/10/23 03/30/25 History hydroxyzine HCl 25 mg tablet 25 mg PO Q6H PRN Anxiety 04/10/23 03/30/25 History acetaminophen 325 mg tablet 650 mg (2 x 325 mg) PO Q8H #1 tab 04/12/23 02/08/25 Rx hydrocodone 5 mg-acetaminophen 325 1 tab PO Q8H PRN pain 1 day #1 tab 04/12/23 03/30/25 Rx mg tablet nitroglycerin 0.4 mg sublingual 0.4 mg sublingual UD PRN Chest Pain 04/22/23 03/30/25 History tablet umeclidinium 62.5 mcg-vilanterol 1 inh inhalation QAM 04/22/23 03/30/25 History 25 mcg/actuation powdr for inhalation (Anoro Ellipta) furosemide 40 mg tablet 20 mg PO UD 12/27/24 03/30/25 History gabapentin 300 mg capsule 300 mg PO HS 12/27/24 03/30/25 History gabapentin 300 mg capsule 300 mg PO QAM 12/27/24 03/30/25 History tizanidine 4 mg tablet 4 mg PO Q8H PRN Muscle Spasm 02/08/25 03/30/25 History Past Med/Surg History Problem List (Updated 03/30/25 @ 16:39 by Britany Todd MD) Atypical chest pain Diastolic congestive heart failure ASCVD (arteriosclerotic cardiovascular disease) Dysphagia Chest pain at rest Aortic mural thrombus (Acute) Near syncope (Acute) Dizziness (Acute) Chest pain (Acute) Chest pain (Acute) HTN (hypertension) Postoperative anemia Weakness (Acute) Falling (Acute) Anemia (Acute) Acute head trauma (Acute) History of lumbar surgery (Acute) Hyponatremia (Acute) Lumbar spinal stenosis Ambulatory dysfunction Multiple falls HLD (hyperlipidemia) CKD (chronic kidney disease), stage III Nonobstructive atherosclerosis of coronary artery (2018) LAD and circumflex free of major disease. RCA with 40 to 50% mid right coronary stenosis and 40% stenosis at the takeoff of the PDA. Tobacco use (Chronic) GERD (gastroesophageal reflux disease) (Chronic) Diastolic dysfunction (Chronic) History of cholecystectomy (Chronic) History of hysterectomy (Chronic) Nocturnal hypoxia (Chronic) reported secondary to COPD. Pt not on home oxygen HS secondary to reported insurance issues Encounter for smoking cessation counseling (Acute) COPD (chronic obstructive pulmonary disease) (Chronic) Anxiety (Chronic) Osteoarthritis (Chronic) Osteoporosis (Chronic) Depression (Chronic) Medical History Cervical spinal stenosis Vasospastic angina NSTEMI (non-ST elevated myocardial infarction) ACS (acute coronary syndrome) Surgical History History of section History of arthroscopy of right shoulder History of carpal tunnel surgery S/P cervical spinal fusion History of lumbar fusion Family History Sister Breast cancer Aunt Breast cancer Father Coronary heart disease Brother Hypertension Father Hypertension Social History Smoking Status: Former smoker Tobacco Type: Cigarettes Second Hand Exposure: No; Do You Dip or Chew Tobacco: No; Hx Alcohol Use: No Hx Substance Use: No Preferred Language: Citizen Of [place] Communication Ability: Effective Unloading Checker Required: No Beliefs That Will Affect Care: None Current Living Situation: Alone Current Living Situation Comment: Apartment Feels Safe at Home: Yes Assistive Devices: Denture - Upper, Denture - Lower and Glasses Review of Systems Review of Systems: Constitutional: (-) fever/chills, (-) recent loss of weight, (-) appetite changes, (-) night sweats. Head: (-) headache, (-) dizziness. Eye: (-) blurring of vision, (-) double vision, (-) redness. Ear: (-) hearing loss, (-) discharge, (-) vertigo Nose: (-) discharge, (-) bleeding, (-) congestion, (-) post nasal drip. Throat: (-) sore throat, (-) hoarseness of voice, (-) odynophagia. Cardiovascular: (+) chest pain, (-) palpitations, (-) syncope, (-) orthopnea, (- ) PND, (-) leg swelling. Respiratory: (-) shortness of breath, (-) cough, (-) wheezing, (-) hemoptysis. Neuro: (-) weakness in extremities, (-) numbness, (-) tingling, (-) tremor. Gastrointestinal: (-) belly pain, (-) belly distension, (-) nausea, (-) vomiting, (-) diarrhea, (-) constipation Genitourinary: (-) hematuria, (-) dysuria, (-) polyuria, (-) hesitancy, (-) frequency, (-) urinary incontinence. Musculoskeletal: (-) myalgia, (-) arthralgia. Skin: (-) rashes. Endocrine: (-) heat/cold intolerance. Psychiatry: (+) depression, (-) hallucination. Physical Exam Physical Exam: GENERAL APPEARANCE: AxOx4, very anxious woman no acute distress. HEENT: NC, AT. MMM. EOMI, clear conjunctiva, oropharynx clear. NECK: Supple without lymphadenopathy. No stiffness or restricted ROM. HEART: Normal rate and regular rhythm, normal S1/S1, no m/r/g, reproducible pain on left chest wall LUNGS: CTAB, moving air well. No crackles or wheezes are heard. ABDOMEN: Soft, nontender, nondistended with good bowel sounds heard. BACK: No CVAT, no obvious deformity. EXTREMITIES: Without cyanosis, clubbing or edema. NEUROLOGICAL: Grossly nonfocal. Alert and oriented, moving all 4 extremities. CN not formally tested but appear grossly intact. Skin: Warm and dry without any rash. Results & Data Results & Data Vital Signs (Past 12 Hours) Vital Signs Temp Pulse Resp BP Pulse Ox O2 Del Method 03/30/25 12:01 73 03/30/25 11:30 116 H 17 97 03/30/25 11:30 131/56 L 03/30/25 11:30 130/86 03/30/25 11:27 128/63 03/30/25 11:27 106/70 03/30/25 11:18 71 20 93 03/30/25 11:13 Room Air 03/30/25 11:13 Room Air 03/30/25 11:09 74 20 03/30/25 10:53 36.9 C 76 15 117/61 91 Room Air Laboratory Results Short CBC 03/30/25 Range/Units 11:07 WBC 7.43 (4.8-10.8) K/ul Hgb 10.8 L (12.0-16.0) g/dl Hct 33.4 L (37.0-47.0) % Plt Count 199 (130-400) K/uL BMP 03/30/25 11:07 Sodium 138 Potassium 4.4 Chloride 106 Carbon Dioxide 29 BUN 20 Creatinine 1.06 Glucose 104 H Calcium 9.0 Liver Function 03/30/25 Range/Units 11:07 Total Bilirubin 0.3 (0.2-1.0) mg/dl AST 26 (13-39) U/L ALT 17 (7-52) U/L Alkaline Phosphatase 108 H (34-104) U/L Albumin 4.0 (3.4-5.0) gm/dl Medications Administered Home Medications Medication Instructions Recorded Confirmed Last Taken amitriptyline 10 mg tablet 20 mg PO HS 09/20/18 03/30/25 12/26/24 21:30 aspirin 81 mg tablet,delayed 81 mg PO QAM 09/20/18 03/30/25 12/27/24 11:30 release omeprazole 40 mg capsule,delayed 40 mg PO QAM 09/20/18 03/30/25 12/27/24 11:30 release sertraline 100 mg tablet 200 mg PO HS 09/20/18 03/30/25 12/26/24 21:30 calcium carbonate (Calcium 600) 600 mg PO QAM 01/02/19 03/30/25 12/27/24 11:30 alendronate 70 mg tablet 70 mg PO WK 11/05/19 03/30/25 12/21/24 11:30 ezetimibe 10 mg tablet (Zetia) 10 mg PO QAM 11/05/19 03/30/25 12/27/24 11:30 atorvastatin 80 mg tablet 80 mg PO QPM 04/10/23 03/30/25 12/27/24 11:30 hydroxyzine HCl 25 mg tablet 25 mg PO Q6H PRN Anxiety 04/10/23 03/30/25 12/26/24 19:00 acetaminophen 325 mg tablet 650 mg (2 x 325 mg) PO Q8H #1 tab 04/12/23 02/08/25 12/26/24 12:00 hydrocodone 5 mg-acetaminophen 325 1 tab PO Q8H PRN pain 1 day #1 tab 04/12/23 03/30/25 12/26/24 18:00 mg tablet nitroglycerin 0.4 mg sublingual 0.4 mg sublingual UD PRN Chest Pain 04/22/23 03/30/25 12/27/24 14:00 tablet umeclidinium 62.5 mcg-vilanterol 1 inh inhalation QA 04/22/23 03/30/25 12/27/24 11:30 25 mcg/actuation powdr for inhalation (Anoro Ellipta) furosemide 40 mg tablet 20 mg PO UD 12/27/24 03/30/25 Unknown gabapentin 300 mg capsule 300 mg PO HS 12/27/24 03/30/25 12/26/24 21:30 gabapentin 300 mg capsule 300 mg PO QA 12/27/24 03/30/25 12/27/24 11:30 tizanidine 4 mg tablet 4 mg PO Q8H PRN Muscle Spasm 02/08/25 03/30/25 Unknown
[2025-03-30] MEDS: FAMOTIDINE 20MG IV PUSH 20 MG/5 ML SYR IV STA (13:10)
[2025-03-30] MEDS ORDERED: ACETAMINOPHEN 325 MG TAB PO PRN ×2 (13:37→16:15)
[2025-03-30] MEDS ORDERED: NITROGLYCERIN SL 0.4 MG/TAB TAB SL PRN (13:37)
[2025-03-30] MEDS ORDERED: HYDROCODONE/ACETAMOPHEN 5/325MG TAB PO PRN (16:15)
[2025-03-30] MEDS: METOPROLOL SUCC 25MG EXT REL TAB PO SCH ×2 (16:52→16:54)
[2025-03-30] MEDS: ENOXAPARIN INJ 40 MG/0.4 ML SYR SQ SCH (16:52)
[2025-03-30] MEDS: GABAPENTIN 300 MG CAP PO SCH (19:55)
[2025-03-30] MEDS: ATORVASTATIN 40 MG TAB PO SCH (19:55)
[2025-03-30] MEDS: SERTRALINE HCL 100 MG TABLET PO SCH (19:55)
[2025-03-30] MEDS: ALUMINUM/MAGNESIUM SUSP 30 ML UDC PO PRN (20:06)
[2025-03-30] MEDS: AMITRIPTYLINE HCL 10 MG TAB PO SCH (20:06)
[2025-03-30] MEDS: MELATONIN 3 MG TAB PO PRN (20:06)
[2025-03-31] MEDS ORDERED: PNEUMOCOCCAL VACCINE (PCV20) 20-VAL CONJ-DIP CRM/PF 0.5 ML SYR IM ONE (07:29)
[2025-03-31 07:50] LABS: Hematocrit (blood only) 32.5 % (37.0-47.0); Hemoglobin 10.9 g/dl (12.0-16.0); Mean Corpuscular Hemoglobin 30.4 pg (25.0-34.0); Mean Corpuscular Volume 90.5 fL (80.0-100.0); Platelet Count 190 K/uL (130-400); RDW Standard Deviation 41.7 fL (36.4-46.3); Red Blood Count 3.59 M/uL (4.20-5.40); White Blood Count 7.07 K/ul (4.8-10.8)
[2025-03-31 08:06] LABS: Anion Gap 4.0 (3-11); Blood Urea Nitrogen 24.0 mg/dl (6-23); Calcium 9.1 mg/dl (8.6-10.3); Carbon Dioxide 30.0 mmol/L (21-32); Chloride 106.0 mmol/L (98-107); Creatinine Clr Calc Pharmacy 32.1 ml/min; Glucose 105.0 mg/dl (70-99(Fasting)); Magnesium 2.1 mg/dl (1.7-2.4); Potassium 4.4 mmol/L (3.5-5.1); Sodium 140.0 mmol/L (136-145)
--- NOTE | 2025-03-31 08:19 | Electrocardiogram Report ---
Test Reason : Blood Pressure : */* mmHG Vent. Rate : 78 BPM Atrial Rate : 78 BPM P-R Int : 156 ms QRS Dur : 88 ms QT Int : 388 ms P-R-T Axes : -24 -12 -12 degrees QTcB Int : 442 ms Sinus rhythm with occasional Premature ventricular complexes Inferior infarct , age undetermined Abnormal ECG When compared with ECG of 29-Dec-2024 06:04, Premature ventricular complexes are now Present Inferior infarct is now Present Inverted T waves have replaced nonspecific T wave abnormality in Inferior leads Confirmed by Hetal Barber ([place]) on 03/31/2025 8:18:55 AM Referred By: Confirmed By: Hetal Barber
[2025-03-31] MEDS: FUROSEMIDE 20 MG TAB PO SCH (09:21)
[2025-03-31] MEDS: CALCIUM CARBONATE 1250MG TAB PO SCH (09:21)
[2025-03-31] MEDS: EZETIMIBE 10 MG TAB PO SCH (09:21)
[2025-03-31] MEDS: ISOSORBIDE MONO EXTENDED REL 30 MG TABCR PO SCH (09:21)
[2025-03-31] MEDS: GABAPENTIN 300 MG CAP PO SCH (09:21)
[2025-03-31] MEDS: ASPIRIN 81 MG ECTAB PO SCH (09:21)
[2025-03-31] MEDS: UMECLIDINIUM/VILANTEROL 62.5/25MCG 7 PUFFS/INHALER INH SCH (09:22)
[2025-03-31 14:47] VITALS: BP 115/72; TEMP 97.9
--- NOTE | 2025-03-31 15:33 | Hospitalist Progress Note ---
Date of Service March 31, 2025 Assessment & Plan (1) Atypical chest pain: (2) Diastolic congestive heart failure: Plan Ms. Fan is a 74-year-old female with past medical history significant for COPD, dyslipidemia, nocturnal hypoxemia due to emphysema (never started on home O2), CAD, HFpEF, hypertension, GERD, CKD stage III, osteoarthritis, migraine, depression, general anxiety disorder, lumbar spinal stenosis, adjustment disorder with anxious mood presented to [facility] ED due to chest pain. Atypical chest pain GERD patient reports this sensation more equivocal to GERD than pain she experiences prior musculoskeletal tenderness noted, per chart review chronic --Patient not taking Imdur, metoprolol as previously prescribed --Per Edward Oliver documentation "Nonobstructive coronary disease per cardiac catheterization in 2017 and August 2019. Lexiscan nuclear stress testing nonischemic in July 2024. Continue medical management. Patient with past poor tolerance to low-dose lisinopril. Consider titration of Imdur to 60 mg/day noting possible vasospastic component. " --Troponin x 3 negative -- Echo showed no wall motion abnormality. EF 60 to 65%. Grade 1 diastolic dysfunction. --Will resume imdur at 30mg daily as patient denies even taking this medication --Will resume metoprolol at 12.5mg daily Increased home PPI to twice a day Chest pain resolved Plan to discharge home Advised to follow-up with cardiology as outpatient Nonobstructive CAD s/p [facility] 2019 negative lexiscan in 07/2024 Resume imdur as above given vasospatic component Chronic HFpEF does not appear very volume overloaded, perhaps mild congestion on review of CXR up 4 kg since 01/2025, denies SOB or JANE s/p IV lasix in ED daily weight Resume home Lasix Advised to follow-up with cardiology on discharge Chronic pain continue home gabapentin bid and percocet prn Mild bilateral internal carotid artery disease, 50 to 69% right internal carotid artery disease via August 2021 duplex. 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 cause about 20-30% luminal narrowing via December 27, 2024 CT follows [facility] Prior tobacco abuse quit 2020 Hypertension Continue Imdur, lisinopril, metoprolol succinate Blood pressure stable Atelectasis Hypoxia COPD Continue home inhalers Will obtain 2 step prior to discharge Incentive spirometry Hyperlipidemia Continue statin and Zetia GERD Continue PPI Counseled on dietary changes Depression Generalized anxiety disorder On Zoloft and hydroxyzine as needed and amitriptyline DVT Px: Lovenox SQ CODE STATUS Full code Disposition Home Admission and Anticipated Discharge Date Admission Date: March 30, 2025 Subjective Patient is seen and examined at bedside States feeling well today Chest pain resolved She denies any dyspnea, cough, nausea, vomiting, abdominal pain, dizziness Eager to get discharged Offers no other complaints Review of Systems Review of Systems: All systems reviewed & are unremarkable except as noted in Subjective Physical Exam Physical Exam: Physical Exam: Vitals signs as noted above General Appearance:Overweight, no apparent distress Head: normocephalic, Atraumatic Eyes: normal inspection, EOMI Neck: supple, Trachea midline Respiratory/Chest: Normal breath sounds, basal crackles, No accessory muscle use Cardiovascular: S1, S2, No murmur Abdomen/GI:Soft, Non tender, Bowel sounds present Extremities/Musculoskeletal:normal inspection, no edema Neurologic/Psych:AAOX3, grossly no focal neurological deficits Skin: normal color, warm Results & Data Results & Data Vital Signs (Past 12 Hours) Vital Signs Temp Pulse Resp BP BP Pulse Ox O2 Del Method 03/31/25 14:46 36.6 C 68 17 115/72 92 Nasal Cannula 03/31/25 11:47 36.7 C 73 18 118/71 90 Nasal Cannula 03/31/25 10:00 98 Nasal Cannula 03/31/25 08:45 Nasal Cannula 03/31/25 08:42 36.5 C 74 17 168/77 H 03/31/25 04:00 36.8 C 75 18 127/73 91 Room Air O2 Flow Rate 03/31/25 14:46 1 03/31/25 11:47 2 03/31/25 10:00 2 03/31/25 08:45 2 03/31/25 08:42 03/31/25 04:00 Laboratory Results Short CBC 03/31/25 Range/Units 07:29 WBC 7.07 (4.8-10.8) K/ul Hgb 10.9 L (12.0-16.0) g/dl Hct 32.5 L (37.0-47.0) % Plt Count 190 (130-400) K/uL BMP 03/31/25 07:29 Sodium 140 Potassium 4.4 Chloride 106 Carbon Dioxide 30 BUN 24 H Creatinine 1.30 H Glucose 105 H Calcium 9.1
--- NOTE | 2025-03-31 15:39 | Discharge Summary ---
Date of Service March 31, 2025 Admission HPI Per Admitting Provider Ms. Fan is a 74-year-old female with past medical history significant for COPD, dyslipidemia, nocturnal hypoxemia due to emphysema (never started on home O2), CAD, HFpEF, hypertension, GERD, CKD stage III, osteoarthritis, migraine, depression, general anxiety disorder, lumbar spinal stenosis, adjustment disorder with anxious mood presented to [facility] ED due to chest pain. Patient states this chest pain is different from her chronic chest pain. This is more epigastric and burning in sensation. Patient states noting makes it better and its persistent. She takes nitroglycerin as needed, last 2 weeks ago. She doesn't know what "Imdur" or "Metoprolol" are--she doesn't think she takes those and she doesn't recall Edward Oliver mentioning those medications. She denies nausea, vomiting, or changes in appetite. The pain is not worsened by exertion. She isn't sure if its worse with food. She reports anxiety and upset over the pain. She does not currently smoke,quit in 2020. She denies EtOH or other non-pre scribed substances. She reports weight gain of 10lbs. She takes her lasix on MWF. She has reduced her gabapentin from 600mg qhs to 300mg qhs, but doesn't feel she can reduce any more. In the ED, vitals were notable for BP of 100-130s HR of 70s and O2 sat of high 90s on room air Imaging revealed mild congestion on CXR BNP lower than prior values 29, trop negative x2 EKG qtc 442 PVCs noted ED interventions: lasix 40mg IV x 1 Patient to be [facility] for further evaluation and management of atypical chest pain Admission Exam Per Admitting Provider GENERAL APPEARANCE: AxOx4, very anxious woman no acute distress. HEENT: NC, AT. MMM. EOMI, clear conjunctiva, oropharynx clear. NECK: Supple without lymphadenopathy. No stiffness or restricted ROM. HEART: Normal rate and regular rhythm, normal S1/S1, no m/r/g, reproducible pain on left chest wall LUNGS: CTAB, moving air well. No crackles or wheezes are heard. ABDOMEN: Soft, nontender, nondistended with good bowel sounds heard. BACK: No CVAT, no obvious deformity. EXTREMITIES: Without cyanosis, clubbing or edema. NEUROLOGICAL: Grossly nonfocal. Alert and oriented, moving all 4 extremities. CN not formally tested but appear grossly intact. Skin: Warm and dry without any rash. Principal Diagnosis Atypical chest pain GERD Heart failure with preserved EF Nonobstructive coronary artery disease Discharge Data Allergies Allergy/AdvReac Type Severity Reaction Status Date / Time chlorpheniramine Allergy Severe Anaphylaxis Verified 12/27/24 20:02 dextromethorphan Allergy Severe Anaphylaxis Verified 12/27/24 20:02 latex Allergy Mild RASH Verified 12/27/24 20:02 Iodinated Contrast Media Allergy Unknown . Verified 12/27/24 20:02 Penicillins Allergy Unknown Unknown Verified 12/27/24 20:02 varenicline AdvReac Severe NAUSEA Verified 12/27/24 20:02 benzalkonium chloride AdvReac Intermediate VERTIGO Verified 12/27/24 20:02 ibuprofen AdvReac Intermediate ACID REFLEX Verified 12/27/24 20:02 ofloxacin AdvReac Intermediate VERTIGO Verified 12/27/24 20:02 Corticosteroids AdvReac Unknown jittery Verified 12/27/24 20:02 (Glucocorticoids) and hyper Consultations 03/30/25 13:14 ED Decision to Admit Stat Procedures Performed Laboratory Results WBC 7.07 K/ul (4.8-10.8) 03/31/25 07: RBC 3.59 M/uL (4.20-5.40) L 03/31/25 07: Hgb 10.9 g/dl (12.0-16.0) L 03/31/25 07: POC Hgb 10.9 g/dl (12.0-16.0) L 03/30/25 11:12 Hct 32.5 % (37.0-47.0) L 03/31/25 07: POC Hct 32 % (37-47) L 03/30/25 11:12 MCV 90.5 fL (80.0-100.0) 03/31/25 07: MCH 30.4 pg (25.0-34.0) 03/31/25 07: MCHC 33.5 g/dL (32.0-36.0) 03/31/25 07: RDW Std Deviation 41.7 fL (36.4-46.3) 03/31/25: RDW Coeff of Melany 12.7 % (11.5-14.5) 03/31/25 07:29 Plt Count 190 K/uL (130-400) 03/31/25 07:29 MPV 10.4 fL (9.4-12.4) 03/31/25 07:29 Immature Gran % (Auto) 0.4 % 03/30/25 11:07 Neut % (Auto) 57.3 % 03/30/25 11:07 Lymph % (Auto) 29.2 % 03/30/25 11:07 [place] % (Auto) 10.0 % 03/30/25 11:07 Eos % (Auto) 2.2 % 03/30/25 11:07 Baso % (Auto) 0.9 % 03/30/25 11:07 Neut # (Auto) 4.26 K/uL (1.40-6.50) 03/30/25 11:07 Lymph # (Auto) 2.17 K/uL (1.20-3.40) 03/30/25 11:07 [place] # (Auto) 0.74 K/uL (0.11-0.59) H 03/30/25 11:07 Eos # (Auto) 0.16 K/uL (0.00-0.50) 03/30/25 11:07 Baso # (Auto) 0.07 K/uL (0.00-0.20) 03/30/25 11:07 Immature Gran # (Auto) 0.03 K/uL (0.01-0.20) 03/30/25 11:07 POC Sodium 140 mmol/L (135-144) 03/30/25 11:12 Sodium 140 mmol/L (136-145) 03/31/25 07:29 POC Potassium 4.4 mmol/L (3.3-5.0) 03/30/25 11:12 Potassium 4.4 mmol/L (3.5-5.1) 03/31/25 07:29 POC Chloride 104 mmol/L (101-112) 03/30/25 11:12 Chloride 106 mmol/L (98-107) 03/31/25 07:29 Carbon Dioxide 30 mmol/L (21-32) 03/31/25 07:29 POC Total CO2 27 mmol/L (24-31) 03/30/25 11:12 Anion Gap 4 (3-11) 03/31/25 07:29 POC Anion Gap 14.0 mmol/L (16-25) L 03/30/25 11:12 POC BUN 19 mg/dl (7-18) H 03/30/25 11:12 BUN 24 mg/dl (6-23) H 03/31/25 07:29 Creatinine 1.30 mg/dl (0.6-1.2) H 03/31/25 07:29 POC Creatinine 1.1 mg/dl (0.6-1.3) 03/30/25 11:12 Est Cr Clr Drug Dosing 32.1 ml/min 03/31/25 07:29 eGFR 43.15 03/31/25 07:29 BUN/Creatinine Ratio 18.5 (10-20) 03/31/25 07:29 Glucose 105 mg/dl (70-99(Fasting)) H 03/31/25 07:29 POC Glucose (other) 103 mg/dl (70-99) H 03/30/25 11:12 Calcium 9.1 mg/dl (8.6-10.3) 03/31/25 07:29 POC Ioniz Calcium Zuair 1.14 mmol/l (1.12-1.32) 03/30/25 11:12 Phosphorus 3.2 mg/dl (2.5-4.9) 03/31/25 07:29 Magnesium 2.1 mg/dl (1.7-2.4) 03/31/25 07:29 Total Bilirubin 0.3 mg/dl (0.2-1.0) 03/30/25 11:07 AST 26 U/L (13-39) 03/30/25 11:07 ALT 17 U/L (7-52) 03/30/25 11:07 Alkaline Phosphatase 108 U/L (34-104) H 03/30/25 11:07 Troponin I High Sens 3.9 pg/ml (0-14) 03/31/25 07:29 B-Natriuretic Peptide 29 pg/ml (0-100) 03/30/25 11:07 Total Protein 7.2 gm/dl (6.0-8.3) 03/30/25 11:07 Albumin 4.0 gm/dl (3.4-5.0) 03/30/25 11:07 Globulin 3.2 gm/dl (2.5-4.0) 03/30/25 11:07 Albumin/Globulin Ratio 1.3 (0.9-2) 03/30/25 11:07 Lipase 38 U/L (11-82) 03/30/25 11:07 Hepatitis C Ab Screen Negative (Negative) 03/30/25 11:07 Impressions Chest X-Ray 03/30/25 11:04 XR chest 1V portable HISTORY: 74 years-old Female Chest pain, nonspecific COMPARISON: 02/08/2025 TECHNIQUE: AP view the chest FINDINGS: Cardiac silhouette is enlarged. Atherosclerosis of the aorta. No pneumothorax, pleural effusion, airspace consolidation or pulmonary edema. Linear bibasilar subsegmental atelectasis. Partially imaged cervical and lumbar spinal fusion hardware. Bones appear grossly intact. IMPRESSION: Subsegmental bibasilar atelectasis. ACT 112: Negative or not required by law. The above report was generated using voice recognition software. It may contain grammatical, syntax or spelling errors. Electronically signed by: Eladio Pascual M.D. 03/30/2025 11:17 AM Hospital Course (1) Atypical chest pain: (2) Diastolic congestive heart failure: Plan Ms. Fan is a 74-year-old female with past medical history significant for COPD, dyslipidemia, nocturnal hypoxemia due to emphysema (never started on home O2), CAD, HFpEF, hypertension, GERD, CKD stage III, osteoarthritis, migraine, depression, general anxiety disorder, lumbar spinal stenosis, adjustment disorder with anxious mood presented to [facility] ED due to chest pain. Atypical chest pain GERD patient reports this sensation more equivocal to GERD than pain she experiences prior musculoskeletal tenderness noted, per chart review chronic --Patient not taking Imdur, metoprolol as previously prescribed --Per Edward Oliver documentation "Nonobstructive coronary disease per cardiac catheterization in 2017 and August 2019. Lexiscan nuclear stress testing nonischemic in July 2024. Continue medical management. Patient with past poor tolerance to low-dose lisinopril. Consider titration of Imdur to 60 mg/day noting possible vasospastic component. " --Troponin x 3 negative -- Echo showed no wall motion abnormality. EF 60 to 65%. Grade 1 diastolic dysfunction. --Will resume imdur at 30mg daily as patient denies even taking this medication --Will resume metoprolol at 12.5mg daily Increased home PPI to twice a day Chest pain resolved Plan to discharge home Advised to follow-up with cardiology as outpatient Nonobstructive CAD s/p [facility] 2019 negative lexiscan in 07/2024 Resume imdur as above given vasospatic component Chronic HFpEF does not appear very volume overloaded, perhaps mild congestion on review of CXR up 4 kg since 01/2025, denies SOB or JANE s/p IV lasix in ED daily weight Resume home Lasix Advised to follow-up with cardiology on discharge Chronic pain continue home gabapentin bid and percocet prn Mild bilateral internal carotid artery disease, 50 to 69% right internal carotid artery disease via August 2021 duplex. 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 cause about 20-30% luminal narrowing via December 27, 2024 CT follows [facility] Prior tobacco abuse quit 2020 Hypertension Continue Imdur, lisinopril, metoprolol succinate Blood pressure stable Atelectasis Hypoxia COPD Continue home inhalers Will obtain 2 step prior to discharge Incentive spirometry Hyperlipidemia Continue statin and Zetia GERD Continue PPI Counseled on dietary changes Depression Generalized anxiety disorder On Zoloft and hydroxyzine as needed and amitriptyline DVT Px: Lovenox SQ CODE STATUS Full code Disposition Home Total Time Total Time Spent Total Time Spent (In Minutes): 53 minutes Discharge Plan Discharge Items Patient Disposition: Home - Self-Care Reason For Visit: ATYPICAL CHEST PAIN Discharge Diagnosis: Atypical chest pain GERD Heart failure with preserved EF Nonobstructive coronary artery disease Condition on Discharge: Good Activity: Per Instructions section Exercise/Sports: Gradually increase as tolerated Non-emergency contact: Primary Care Provider and Erp Project Manager Call non-emergency contact if: you have any medication questions, your symptoms worsen, your pain is concerning for you and you have a fever Follow-up/Referrals: Cedric Downey MD [Primary Care Provider] - Diet: Heart Healthy Addtl Attending Provider Instructions: -- Follow-up with your primary care physician Dr. Downey in 1 week --Follow-up with your secondary spanish teacher Edward Oliver PA-C in 3 to 4 weeks -- Continue following with your pickle processor for management of GERD -- Take medications regularly as advised. Seek immediate medical attention if your symptoms reoccur or worsen Please review medication list provided on discharge for any medication changes as instructed. Please call if you have any questions or problems. You can reach a [facility] hospitalist on duty at [facility] [address] 24 hours a day by calling [phone] [facility] [employer] Trimmer Hand Provider Instructions: Call your Primary Care doctor if any of the following symptoms or problems start or get worse: * Shortness of breath or difficulty breathing * Wake up at night short of breath * Chest pain * Cough * Swelling of your hands, feet, or legs * More fatigued or tired with your normal activity * Palpitations - sudden fast heart beats WEIGHT * Weigh yourself every morning after using the bathroom. * Use the same scale. * Wear the same amount of clothing. * Write your weight down on a chart. * Call your Primary Care doctor if you gain more than 2-3 pounds in 1-2 days. MEDICATIONS * Use this discharge instruction sheet for medication instructions. * Take your medications at the time your doctor ordered. * Do not skip a dose of your medicines. * If you miss a dose of medicine, take it as soon as possible, but DO NOT DOUBLE A DOSE. * Read your medicine information when you get home. * Know all of the side effects of your medicine. If in doubt, ask your pharmacist * Call your Primary Care doctor's office if you have any side effects. * Be sure all of your doctors know what medicine and herbs you take (including cold, flu, and herbal medicine). Take the following with you to your follow-up doctor appointments: * Weight Chart * Medication List * List of questions Do not drink excessive alcohol, beer or wine. Pending Studies at Discharge: No Stand-Alone Forms: My [facility], Smoking Cessation Medications and DC Order Prescriptions: New isosorbide mononitrate 30 mg Tablet Extended Release 24 Hr 30 mg PO QAM Qty: 30 1RF pantoprazole 40 mg Tablet,Delayed Release (Dr/Ec) 40 mg PO BID Qty: 60 1RF metoprolol succinate 25 mg Tablet Extended Release 24 Hr 12.5 mg PO QAM Qty: 30 1RF Continued alendronate 70 mg tablet 70 mg PO WK Rx Instructions: Monday ezetimibe [Zetia] 10 mg tablet 10 mg PO QAM sertraline 100 mg tablet 200 mg PO HS aspirin 81 mg Tablet,Delayed Release (Dr/Ec) 81 mg PO QAM amitriptyline 10 mg tablet 20 mg PO HS calcium carbonate [Calcium 600] 600 mg calcium (1,500 mg) Tablet 600 mg PO QAM hydroxyzine HCl 25 mg tablet 25 mg PO Q6H PRN (Reason: Anxiety) atorvastatin 80 mg tablet 80 mg PO QPM acetaminophen 325 mg Tablet 650 mg PO Q8H Qty: 1 0RF hydrocodone-acetaminophen 5-325 mg tablet 1 tab PO Q8H PRN (Reason: pain) 1 Days Qty: 1 0RF umeclidinium-vilanterol [Anoro Ellipta] 62.5-25 mcg/actuation blister with device 1 inh INHALATION QAM nitroglycerin 0.4 mg tablet, sublingual 0.4 mg sublingual UD PRN (Reason: Chest Pain) Rx Instructions: 1 tab sl as needed for cp gabapentin 300 mg capsule 300 mg PO QAM gabapentin 300 mg capsule 300 mg PO HS furosemide 40 mg tablet 20 mg PO UD Rx Instructions: Lasix 20mg po daily on Mon, Mon and Monday. tizanidine 4 mg tablet 4 mg PO Q8H PRN (Reason: Muscle Spasm) Discontinued omeprazole 40 mg capsule,delayed release(DR/EC) 40 mg PO QAM Discharge Orders: Discharge Order (Routine); Ordered 03/31/25 Ordered By: Alfonso Delgadillo Admission Data Admit Date/Time: 03/30/25 13:10 Attending Provider: Alfonso Delgadillo Admit Provider: Britany Todd Primary Care Provider: Cedric Downey Other Providers: Britany Todd
[2025-03-31 17:14] VITALS: PULSE 68; RESP 17; O2SAT 92
--- NOTE | 2025-04-02 07:40 | Coding Query ---
CHEST PAIN To promote full compliance with coding requirements relating to patient care physician participation is requested in all cases of electric transfer operator uncertainty. Please assist us with the question(s) below: Please list a more specific chest pain diagnosis or cause of chest pain if known by placing an X within the parenthesis (x): ( x) Atypical Chest Pain ( ) Chest Wall Pain ( ) Midsternal Chest Pain ( ) Musculoskeletal Chest Pain ( ) Pleuritic Chest Pain ( ) Substernal Chest Pain ( ) Costochondral Chest Pain ( ) Other (please Specify) Thank you CHRISTY Chang [facility]
== END 2025-03-31 18:16 | disposition home or self-care (01) | DRG 313 ==
LOC: ED 10:53 → EDINP 13:10 → SUATTDRO 13:10 → 2N 17:34

== ENCOUNTER 2025-05-15 23:09 | Inpatient (IN) ==
--- NOTE | 2025-05-15 23:21 | Emergency Department Note ---
Impression & Plan Partial obstruction of small intestine Admission ED Provider Note HPI: History obtained from patient. The patient is a 74-year-old female with history of hypertension, diastolic CHF, hyperlipidemia, chronic kidney disease, GERD, COPD, who presents the emergency department with a chief complaint of right-sided abdominal pain/flank pain. Patient states that she has had this pain throughout the day today. Patient states she has had some nausea but denies any vomiting. On arrival here to the ED the patient is hemodynamically stable, she otherwise appears to be in no acute distress. ROS: - Per HPI Differential Diagnosis: Kidney stone, choledocholithiasis, diverticulitis flare, acute colitis, acute gastritis, acute pancreatitis, pyelonephritis, urinary tract infection, bowel obstruction, amongst other potential pathologies. *Outpatient medications and allergy history reviewed. PE: General: Alert HEENT: Normocephalic, trachea midline Eyes: Extraocular eye movement is intact, no scleral erythema Pulmonary: Clear to auscultation bilaterally, no wheezing Cardio: Regular rate and rhythm GI: Abdomen is soft to palpation, moderate tenderness to the right side of the abdomen without any guarding or rigidity : No suprapubic tenderness MSK: No evidence of trauma or malformation of the extremities, no edema Skin: No evidence of rash Neuro: Alert, no focal deficits Psychiatric: Cooperative INDEPENDENT INTERPRETATIONS: property assessment monitor: (As interpreted by myself): - An order was placed for continuous cardiac monitoring - Patient was noted to be in sinus rhythm with a rate of 70 Interventions provided in ED: - IV fluid bolus, IV morphine Medical Decision Making: IV was established and lab work obtained, patient was placed on secured entrance monitor. Lab work shows a leukocytosis of 14.57, hemoglobin is stable at 11.9, platelet count is normal, CMP does not show any evidence of any critical findings. No evidence of acute kidney injury. Urinalysis is pending. CT imaging of the abdomen and pelvis is suggestive of a partial small bowel obstruction. No evidence of any renal pathology is noted by the interpreting radiologist. On my reevaluation the patient states she is still having some mild pain but is improved from previous following IV morphine. I discussed admission with the patient and she is in agreement. Case was discussed with the on-call hospitalist, Dr. Ambrose, the patient was placed for admission in stable condition. Consultants/Discussions held with other healthcare providers: - Hospitalist, Dr. Ambrose Disposition discussion held by myself with: - Patient Diagnosis: 1. Partial small bowel obstruction, acute 2. Right-sided abdominal pain, acute 3. Leukocytosis, acute, nonspecific Disposition: Admission Edward Ortega DO Emergency Medicine Past Med/Surg History Problem List (Updated 05/16/25 @ 01:41 by Edward Ortega DO) Partial obstruction of small intestine (Acute) Shortness of breath (Acute) Chest pain (Acute) Atypical chest pain Diastolic congestive heart failure ASCVD (arteriosclerotic cardiovascular disease) Dysphagia Chest pain at rest Aortic mural thrombus (Acute) Near syncope (Acute) Dizziness (Acute) Chest pain (Acute) Chest pain (Acute) HTN (hypertension) Postoperative anemia Weakness (Acute) Falling (Acute) Anemia (Acute) Acute head trauma (Acute) History of lumbar surgery (Acute) Hyponatremia (Acute) Lumbar spinal stenosis Ambulatory dysfunction Multiple falls HLD (hyperlipidemia) CKD (chronic kidney disease), stage III Nonobstructive atherosclerosis of coronary artery (2018) LAD and circumflex free of major disease. RCA with 40 to 50% mid right coronary stenosis and 40% stenosis at the takeoff of the PDA. Tobacco use (Chronic) GERD (gastroesophageal reflux disease) (Chronic) Diastolic dysfunction (Chronic) History of cholecystectomy (Chronic) History of hysterectomy (Chronic) Nocturnal hypoxia (Chronic) reported secondary to COPD. Pt not on home oxygen HS secondary to reported insurance issues Encounter for smoking cessation counseling (Acute) COPD (chronic obstructive pulmonary disease) (Chronic) Anxiety (Chronic) Osteoarthritis (Chronic) Osteoporosis (Chronic) Depression (Chronic) Medical History Cervical spinal stenosis Vasospastic angina NSTEMI (non-ST elevated myocardial infarction) ACS (acute coronary syndrome) Surgical History History of section History of arthroscopy of right shoulder History of carpal tunnel surgery S/P cervical spinal fusion History of lumbar fusion Family History Sister Breast cancer Aunt Breast cancer Father Coronary heart disease Brother Hypertension Father Hypertension Social History Smoking Status: Former smoker Tobacco Type: Cigarettes Second Hand Exposure: No; Do You Dip or Chew Tobacco: No; Hx Alcohol Use: No Hx Substance Use: No Preferred Language: Indian Communication Ability: Effective Banquet Chef Required: No Beliefs That Will Affect Care: None Current Living Situation: Alone Current Living Situation Comment: Home alone in her own appartment Feels Safe at Home: Yes Assistive Devices: Cane, Nebulizer and Walker Allergies Allergies Allergy/AdvReac Type Severity Reaction Status Date / Time chlorpheniramine Allergy Severe Anaphylaxis Verified 05/15/25 23:42 dextromethorphan Allergy Severe Anaphylaxis Verified 05/15/25 23:42 Iodinated Contrast Media Allergy Intermediate Hives Verified 05/15/25 23:42 Penicillins Allergy Intermediate Rash Verified 05/15/25 23:42 latex Allergy Mild RASH Verified 05/15/25 23:42 varenicline AdvReac Severe NAUSEA Verified 05/15/25 23:42 benzalkonium chloride AdvReac Intermediate VERTIGO Verified 05/15/25 23:42 Corticosteroids AdvReac Intermediate HYPER, Verified 05/15/25 23:42 (Glucocorticoids) MENTAL STATUS CHANGES W/ORAL STEROIDS. ibuprofen AdvReac Intermediate ACID REFLEX Verified 05/15/25 23:42 ofloxacin AdvReac Intermediate VERTIGO Verified 05/15/25 23:42 Home Meds Home Medications Medication Instructions Recorded Confirmed amitriptyline 10 mg tablet 20 mg PO HS 09/20/18 05/15/25 aspirin 81 mg tablet,delayed 81 mg PO QAM 09/20/18 05/15/25 release sertraline 100 mg tablet 200 mg PO HS 09/20/18 05/15/25 calcium carbonate (Calcium 600) 600 mg PO BIDM 01/02/19 05/15/25 ezetimibe 10 mg tablet (Zetia) 10 mg PO QAM 11/05/19 05/15/25 atorvastatin 80 mg tablet 80 mg PO QAM 04/10/23 05/15/25 hydroxyzine HCl 25 mg tablet 25 mg PO Q6H PRN Anxiety 04/10/23 05/15/25 nitroglycerin 0.4 mg sublingual 0.4 mg sublingual UD PRN Chest Pain 04/22/23 05/15/25 tablet umeclidinium 62.5 mcg-vilanterol 1 inh inhalation QAM 04/22/23 05/15/25 25 mcg/actuation powdr for inhalation (Anoro Ellipta) furosemide 40 mg tablet 20 mg PO 3XWK 12/27/24 05/15/25 gabapentin 300 mg capsule 300 mg PO BID 12/27/24 05/15/25 tizanidine 4 mg tablet 4 mg PO Q8H PRN Muscle Spasm 02/08/25 05/15/25 acetaminophen 650 mg 650 mg PO BID 05/15/25 05/15/25 tablet,extended release albuterol sulfate 2.5 mg/3 mL 2.5 mg inhalation Q4H PRN Wheezing 05/15/25 05/15/25 (0.083 %) solution for nebulization albuterol sulfate 90 mcg/actuation 2 puff inhalation Q4H PRN 05/15/25 05/15/25 aerosol inhaler Shortness Of Breath Or Wheezing cholecalciferol (vitamin D3) 50 50 mcg PO DAILY 05/15/25 05/15/25 mcg (2,000 unit) capsule (Vitamin D3) diclofenac sodium 1 % topical gel 2 g topical TID PRN Muscle Pain 05/15/25 05/15/25 hydrocodone 5 mg-acetaminophen 325 1 tab PO Q6H PRN Pain, Moderate, 05/15/25 05/15/25 mg tablet Severe onabotulinumtoxinA 200 unit 200 unit subcut .Q12WK 05/15/25 05/15/25 solution for injection (Botox) Previous Rx's Medication Instructions Recorded isosorbide mononitrate 30 mg 30 mg PO QAM #30 tabs 03/31/25 tablet,extended release 24 hr metoprolol succinate 25 mg 12.5 mg (1/2 x 25 mg) PO QAM #30 03/31/25 tablet,extended release 24 hr tabs pantoprazole 40 mg tablet,delayed 40 mg PO BID #60 tabs 03/31/25 release Results & Data (ED) Vital Signs Vital Signs - 24 hr 05/15/25 23:15 05/15/25 23:24 05/16/25 00:03 Temperature 36.9 C Temperature Source Oral Pulse Rate 81 62 71 Pulse Rate [Apical] Pulse Rhythm Regular Pulse Rhythm [Apical] Pulse Strength [Apical] Respiratory Rate 16 Respiratory Effort / Characteristics Non-Labored Spontaneous Respiratory Depth Normal Respiratory Pattern Blood Pressure 173/49 H Blood Pressure [Right Arm] Blood Pressure Mean 90 Blood Pressure Mean [Right Arm] Pulse Oximetry 99 99 Oxygen Delivery Method Room Air Oxygen Flow Rate Sepsis Recent Fever Within 48 Hours No Sepsis New/Unexplained Change in Mental Status N/A Sepsis Action Taken by Nursing No Action Required 05/16/25 00:04 05/16/25 01:15 Temperature Temperature Source Pulse Rate Pulse Rate [Apical] 69 68 Pulse Rhythm Pulse Rhythm [Apical] Regular Regular Pulse Strength [Apical] Normal Normal Respiratory Rate 16 18 Respiratory Effort / Characteristics Non-Labored Spontaneous Non-Labored Spontaneous Respiratory Depth Normal Normal Respiratory Pattern Regular Blood Pressure Blood Pressure [Right Arm] 145/63 H 141/49 H Blood Pressure Mean Blood Pressure Mean [Right Arm] 90 79 Pulse Oximetry 97 100 Oxygen Delivery Method Nasal Cannula Room Air Oxygen Flow Rate 2 Sepsis Recent Fever Within 48 Hours Sepsis New/Unexplained Change in Mental Status Sepsis Action Taken by Nursing Laboratory Data 05/15/25 23:29 05/15/25 23:29 Lab Results 05/15/25 05/16/25 Range/Units 23:29 Unknown WBC 14.57 H (4.8-10.8) K/ul RBC 4.07 L (4.20-5.40) M/uL Hgb 11.9 L (12.0-16.0) g/dl Hct 36.9 L (37.0-47.0) % MCV 90.7 (80.0-100.0) fL MCH 29.2 (25.0-34.0) pg MCHC 32.2 (32.0-36.0) g/dL RDW Std Deviation 41.4 (36.4-46.3) fL RDW Coeff of Melayn 12.8 (11.5-14.5) % Plt Count 221 (130-400) K/uL MPV 10.4 (9.4-12.4) fL Immature Gran % (Auto) 0.8 % Neut % (Auto) 76.1 % Lymph % (Auto) 13.0 % [place] % (Auto) 8.1 % Eos % (Auto) 1.5 % Baso % (Auto) 0.5 % Neut # (Auto) 11.10 H (1.40-6.50) K/uL Lymph # (Auto) 1.89 (1.20-3.40) K/uL [place] # (Auto) 1.18 H (0.11-0.59) K/uL Eos # (Auto) 0.22 (0.00-0.50) K/uL Baso # (Auto) 0.07 (0.00-0.20) K/uL Immature Gran # (Auto) 0.11 (0.01-0.20) K/uL PT 10.4 (9.0-12.0) Seconds INR 1.0 (0.9-1.1) Sodium 138 (136-145) mmol/L Potassium 3.6 (3.5-5.1) mmol/L Chloride 105 (98-107) mmol/L Carbon Dioxide 24 (21-32) mmol/L Anion Gap 9 (3-11) BUN 27 H (6-23) mg/dl Creatinine 1.13 (0.6-1.2) mg/dl Est Cr Clr Drug Dosing 38.0 ml/min eGFR 51.05 BUN/Creatinine Ratio 23.9 H (10-20) Glucose 137 H (70-99(Fasting)) mg/dl Calcium 9.4 (8.6-10.3) mg/dl Total Bilirubin 0.3 (0.2-1.0) mg/dl AST 18 (13-39) U/L ALT 12 (7-52) U/L Alkaline Phosphatase 96 (34-104) U/L Total Protein 7.6 (6.0-8.3) gm/dl Albumin 4.2 (3.4-5.0) gm/dl Globulin 3.4 (2.5-4.0) gm/dl Albumin/Globulin Ratio 1.2 (0.9-2) Lipase 20 (11-82) U/L Urine Comment Administered Medications Discontinued Medications Sodium Chloride (Nss) 1,000 mls @ 999 mls/hr IV .Q1H1M STA Stop: 05/16/25 00:19 Last Infusion: 05/16/25 00:22 Dose: Infused Documented By: [facility] Admin: 05/15/25 23:26 Dose: 999 mls/hr Documented By: [facility] Morphine Sulfate (Morphine Sulfate 4 Mg/Ml 1 Ml Carp\Vial) 4 mg IV NOW STA Stop: 05/15/25 23:20 Last Admin: 05/15/25 23:26 Dose: 4 mg Documented By: [facility] Imaging Data Radiologist's Impression: Abdomen/Pelvis CT 05/15/25 23:19 Exam(s): CT ABDOMEN + PELVIS Without Contrast EXAM: CT Abdomen and Pelvis Without Intravenous Contrast CLINICAL HISTORY: R flank pain. TECHNIQUE: Axial computed tomography images of the abdomen and pelvis without intravenous contrast. CTDI is 25 mGy and DLP is 1132 mGy-cm. Automated exposure control was utilized for the study. A dose lowering technique was utilized adhering to the principles of ALARA. COMPARISON: 12/07/2017. FINDINGS: Lung bases: Mild oawcw-zktvexn-tmfh-left basilar atelectasis. ABDOMEN: Liver: 16.2 cm length. Unchanged 10 mm probable cyst in the right lobe of the liver. Gallbladder and bile ducts: Post cholecystectomy. No ductal dilation. Pancreas: Unremarkable. No ductal dilation. Spleen: Unremarkable. No splenomegaly. Adrenals: Unremarkable. No mass. Kidneys and ureters: No obstructive uropathy. No obstructing renal or ureteral calculi. No hydronephrosis or hydroureter. Stomach and bowel: Unremarkable stomach. Mildly dilated small bowel with air-fluid levels throughout the abdomen pelvis. Distal small bowel normal in caliber. Poorly defined transition in the right lower quadrant. Appearance is suggestive of a partial small bowel obstruction. Normal caliber colon. No evidence for diverticulitis. PELVIS: Appendix: No findings to suggest acute appendicitis. Bladder: Partially contracted. No stones. Reproductive: Post hysterectomy. Ovaries not visualized. ABDOMEN and PELVIS: Intraperitoneal space: No free air. Small amount of pelvic free fluid. Bones/joints: No acute fracture. Metal artifact from interval posterior fusion of L4 through S1 of the lumbar spine. Soft tissues: Unremarkable. Vasculature: Atherosclerotic vascular calcifications. No abdominal aortic aneurysm. Lymph nodes: Unremarkable. No enlarged lymph nodes. IMPRESSION: Partial small bowel obstruction as described above. Small amount of lower pelvic free fluid. Interval lower lumbar spine posterior fusion. Otherwise no change. Electronically signed by: Jerson Santos M.D. 05/16/25 01:15 AM Discharge Plan Visit Data Chief Complaint: Abdominal Pain Stated Complaint: RUQ Abdominal Pain ED Provider: Edward Ortega Discharge Problem: Partial obstruction of small intestine Patient Disposition: Admitted As Inpatient Condition: Fair Forms Stand Alone Forms: [facility] [place] Prescriptions Prescriptions: No Action ezetimibe [Zetia] 10 mg tablet 10 mg PO QAM sertraline 100 mg tablet 200 mg PO HS aspirin 81 mg Tablet,Delayed Release (Dr/Ec) 81 mg PO QAM amitriptyline 10 mg tablet 20 mg PO HS calcium carbonate [Calcium 600] 600 mg calcium (1,500 mg) Tablet 600 mg PO BIDM hydroxyzine HCl 25 mg tablet 25 mg PO Q6H PRN (Reason: Anxiety) atorvastatin 80 mg tablet 80 mg PO QAM umeclidinium-vilanterol [Anoro Ellipta] 62.5-25 mcg/actuation blister with device 1 inh INHALATION QAM nitroglycerin 0.4 mg tablet, sublingual 0.4 mg sublingual UD PRN (Reason: Chest Pain) Rx Instructions: 1 tab sl as needed for cp gabapentin 300 mg capsule 300 mg PO BID furosemide 40 mg tablet 20 mg PO 3XWK Rx Instructions: Mon, Mon and Monday. isosorbide mononitrate 30 mg Tablet Extended Release 24 Hr 30 mg PO QAM Qty: 30 1RF pantoprazole 40 mg Tablet,Delayed Release (Dr/Ec) 40 mg PO BID Qty: 60 1RF metoprolol succinate 25 mg Tablet Extended Release 24 Hr 12.5 mg PO QAM Qty: 30 1RF albuterol sulfate 2.5 mg /3 mL (0.083 %) Solution For Nebulization 2.5 mg INHALATION Q4H PRN (Reason: Wheezing) acetaminophen [Tylenol Extended Release] 650 mg Tablet Extended Release 650 mg PO BID Rx Instructions: TAKE 30 MIN PRIOR TO MEALS albuterol sulfate 90 mcg/actuation Hfa Aerosol Inhaler 2 puff INHALATION Q4H PRN (Reason: Shortness Of Breath Or Wheezing) diclofenac sodium [Voltaren] 1 % Gel 2 g TOPICAL TID PRN (Reason: Muscle Pain) cholecalciferol (vitamin D3) [Vitamin D3] 50 mcg (2,000 unit) Capsule 50 mcg PO DAILY Botox 200 unit Recon Soln 200 unit subcut .Q12WK hydrocodone-acetaminophen 5-325 mg tablet 1 tab PO Q6H PRN (Reason: Pain, Moderate, Severe) tizanidine 4 mg tablet 4 mg PO Q8H PRN (Reason: Muscle Spasm) Referrals Referrals: Cedric Downey MD [Primary Care Provider] -
[2025-05-15] MEDS: SODIUM CHLORIDE 0.9% 1,000 ML IV STA (23:26)
[2025-05-15] MEDS: MoRPHine SULFATE 4 MG/ML 1 ML CARP\\VIAL IV STA (23:26)
[2025-05-15 23:42] LABS: Hematocrit (blood only) 36.9 % (37.0-47.0); Hemoglobin 11.9 g/dl (12.0-16.0); Immature Granulocytes # (auto) 0.11 K/uL (0.01-0.20); Immature Granulocytes % (auto) 0.8 %; Mean Corpuscular Hemoglobin 29.2 pg (25.0-34.0); Mean Corpuscular Volume 90.7 fL (80.0-100.0); Platelet Count 221 K/uL (130-400); RDW Standard Deviation 41.4 fL (36.4-46.3); Red Blood Count 4.07 M/uL (4.20-5.40); White Blood Count 14.57 K/ul (4.8-10.8)
[2025-05-15 23:59] LABS: Alanine Aminotransferase 12.0 U/L (7-52); Albumin Globulin Ratio 1.2 (0.9-2); Albumin Level 4.2 gm/dl (3.4-5.0); Alkaline Phosphatase 96.0 U/L (34-104); Anion Gap 9.0 (3-11); Bilirubin,Total 0.3 mg/dl (0.2-1.0); Blood Urea Nitrogen 27.0 mg/dl (6-23); Calcium 9.4 mg/dl (8.6-10.3); Carbon Dioxide 24.0 mmol/L (21-32); Chloride 105.0 mmol/L (98-107); Creatinine Clr Calc Pharmacy 38.0 ml/min; Globulin 3.4 gm/dl (2.5-4.0); Glucose 137.0 mg/dl (70-99(Fasting)); Lipase 20.0 U/L (11-82); Potassium 3.6 mmol/L (3.5-5.1); Sodium 138.0 mmol/L (136-145); Total Protein 7.6 gm/dl (6.0-8.3)
[2025-05-16 00:14] LABS: INR 1.0 (0.9-1.1); Prothrombin Time 10.4 Seconds (9.0-12.0)
--- NOTE | 2025-05-16 01:16 | CT Scan Report ---
Exam(s): CT ABDOMEN + PELVIS Without Contrast EXAM: CT Abdomen and Pelvis Without Intravenous Contrast CLINICAL HISTORY: R flank pain. TECHNIQUE: Axial computed tomography images of the abdomen and pelvis without intravenous contrast. CTDI is 25 mGy and DLP is 1132 mGy-cm. Automated exposure control was utilized for the study. A dose lowering technique was utilized adhering to the principles of ALARA. COMPARISON: 12/07/2017. FINDINGS: Lung bases: Mild okfwe-ssweoyi-kafs-left basilar atelectasis. ABDOMEN: Liver: 16.2 cm length. Unchanged 10 mm probable cyst in the right lobe of the liver. Gallbladder and bile ducts: Post cholecystectomy. No ductal dilation. Pancreas: Unremarkable. No ductal dilation. Spleen: Unremarkable. No splenomegaly. Adrenals: Unremarkable. No mass. Kidneys and ureters: No obstructive uropathy. No obstructing renal or ureteral calculi. No hydronephrosis or hydroureter. Stomach and bowel: Unremarkable stomach. Mildly dilated small bowel with air-fluid levels throughout the abdomen pelvis. Distal small bowel normal in caliber. Poorly defined transition in the right lower quadrant. Appearance is suggestive of a partial small bowel obstruction. Normal caliber colon. No evidence for diverticulitis. PELVIS: Appendix: No findings to suggest acute appendicitis. Bladder: Partially contracted. No stones. Reproductive: Post hysterectomy. Ovaries not visualized. ABDOMEN and PELVIS: Intraperitoneal space: No free air. Small amount of pelvic free fluid. Bones/joints: No acute fracture. Metal artifact from interval posterior fusion of L4 through S1 of the lumbar spine. Soft tissues: Unremarkable. Vasculature: Atherosclerotic vascular calcifications. No abdominal aortic aneurysm. Lymph nodes: Unremarkable. No enlarged lymph nodes. IMPRESSION: Partial small bowel obstruction as described above. Small amount of lower pelvic free fluid. Interval lower lumbar spine posterior fusion. Otherwise no change. Electronically signed by: Jerson Santos M.D. 05/16/25 01:15 AM
[2025-05-16 01:23] LABS: Appearance Urine Cloudy (Clear); Bacteria Urine Automated None Seen (None Seen); Cast Urine Automated 0-2 /lpf (0-2); Glucose Urine UA Negative (Negative); RBC Urine Automated 0-2 /hpf (0-2)
[2025-05-16] MEDS: MoRPHine SULFATE 2 MG/ML CARP IV STA (02:18)
[2025-05-16] MEDS ORDERED: NITROGLYCERIN SL 0.4 MG/TAB TAB SL PRN (03:39)
[2025-05-16] MEDS ORDERED: ALBUTEROL HFA 8 GM INHALER INH PRN (03:39)
[2025-05-16] MEDS ORDERED: DICLOFENAC SOD 1% GEL 100 GM TUBE EXT PRN (03:39)
[2025-05-16] MEDS ORDERED: HYDROmorphone INJ 0.5 MG/0.5 ML SYR IV PRN (03:39)
[2025-05-16] MEDS ORDERED: ALBUTEROL 0.083% NEBU SOLN 3 ML VIAL INH PRN (03:39)
[2025-05-16] MEDS: cefTRIAXone SODIUM 2,000 MG/50 ML BAG IV SCH (03:57)
--- NOTE | 2025-05-16 04:36 | History & Physical Report ---
Date of Service May 16, 2025 Assessment & Plan (1) Partial obstruction of small intestine: Plan: 74-year-old female with past medical history significant for COPD, dyslipidemia, nocturnal hypoxemia due to emphysema, history of CAD, history of chronic heart failure with preserved ejection fraction, history of hypertension, GERD, history dysphagia, CKD stage III, osteoarthritis, migraine, depression, general anxiety disorder, lumbar spinal stenosis, adjustment disorder with anxious mood comes in because of abdominal pain. Patient says abdominal pain started yesterday morning. It is severe in nature. It is mostly in the right side. Associated with nausea. No vomiting. Had normal bowel movement yesterday afternoon. No fevers. No cough. No chest pain. No shortness of breath. No headache currently. No runny nose or sore throat. Vision is okay. No earaches. Micturating okay. Hemodynamics are okay. Partial small bowel obstruction N.p.o., IV fluids, IV pain meds pain, IV antiemetics as needed Surgery consult Close monitor medical floor History of COPD Will continue inhalers Nocturnal hypoxemia on oxygen q hs Nonobstructive CAD On aspirin, statin beta-randi and Imdur Carotid artery disease CTA chest in December 2024: 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 cause about 20-30% luminal narrowing. Follow-up with vascular surgery On aspirin and statin Chronic diastolic CHF On Lasix 3 times a week Getting gentle fluids Will monitor for volume overload Hypertension On Imdur, lisinopril and metoprolol succinate Will monitor Hyperlipidemia On statin and Zetia GERD Omeprazole Depression Generalized anxiety disorder On Zoloft, amitriptyline and hydroxyzine as needed DVT prophylaxis SCDs Lovenox Disposition Medical floor Full code. History of Present Illness Chief Complaint: Abdominal pain Primary Care Provider: Cedric Downey MD 74-year-old female with past medical history significant for COPD, dyslipidemia, nocturnal hypoxemia due to emphysema, history of CAD, history of chronic heart failure with preserved ejection fraction, history of hypertension, GERD, history dysphagia, CKD stage III, osteoarthritis, migraine, depression, general anxiety disorder, lumbar spinal stenosis, adjustment disorder with anxious mood comes in because of abdominal pain. Patient says abdominal pain started yesterday morning. It is severe in nature. It is mostly in the right side. Associated with nausea. No vomiting. Had normal bowel movement yesterday afternoon. No fevers. No cough. No chest pain. No shortness of breath. No headache currently. No runny nose or sore throat. Vision is okay. No earaches. Micturating okay. Hemodynamics are okay. Past medical history. As mentioned above Past surgical history. Allograft for spine surgery. Bone marrow aspiration. Left carpal tunnel surgery. . Colonoscopy. Cystoscopy. Dilatation curettage. EGD. Insertion of interbody biomechanical device. Neck spine fusion surgery. Laminectomy. Cholecystectomy. Right shoulder surgery. Spinal fusion surgery. Total hysterectomy. Social history. Quit smoking 2020. Smoked 0.3 pack a day for 51 years. No alcohol use. No drug use. Family history. Father had heart attack. Brother had hypertension. Mother had hypertension. Sister had breast cancer. Paternal aunt had breast cancer. Allergies Allergy/AdvReac Type Severity Reaction Status Date / Time chlorpheniramine Allergy Severe Anaphylaxis Verified 05/15/25 23:42 dextromethorphan Allergy Severe Anaphylaxis Verified 05/15/25 23:42 Iodinated Contrast Media Allergy Intermediate Hives Verified 05/15/25 23:42 Penicillins Allergy Intermediate Rash Verified 05/15/25 23:42 latex Allergy Mild RASH Verified 05/15/25 23:42 varenicline AdvReac Severe NAUSEA Verified 05/15/25 23:42 benzalkonium chloride AdvReac Intermediate VERTIGO Verified 05/15/25 23:42 Corticosteroids AdvReac Intermediate HYPER, Verified 05/15/25 23:42 (Glucocorticoids) MENTAL STATUS CHANGES W/ORAL STEROIDS. ibuprofen AdvReac Intermediate ACID REFLEX Verified 05/15/25 23:42 ofloxacin AdvReac Intermediate VERTIGO Verified 05/15/25 23:42 Home Medications Medication Instructions Recorded Confirmed Type amitriptyline 10 mg tablet 20 mg PO HS 09/20/18 05/15/25 History aspirin 81 mg tablet,delayed 81 mg PO QAM 09/20/18 05/15/25 History release sertraline 100 mg tablet 200 mg PO HS 09/20/18 05/15/25 History calcium carbonate (Calcium 600) 600 mg PO BIDM 01/02/19 05/15/25 History ezetimibe 10 mg tablet (Zetia) 10 mg PO QAM 11/05/19 05/15/25 History atorvastatin 80 mg tablet 80 mg PO QAM 04/10/23 05/15/25 History hydroxyzine HCl 25 mg tablet 25 mg PO Q6H PRN Anxiety 04/10/23 05/15/25 History nitroglycerin 0.4 mg sublingual 0.4 mg sublingual UD PRN Chest Pain 04/22/23 05/15/25 History tablet umeclidinium 62.5 mcg-vilanterol 1 inh inhalation QAM 04/22/23 05/15/25 History 25 mcg/actuation powdr for inhalation (Anoro Ellipta) furosemide 40 mg tablet 20 mg PO 3XWK 12/27/24 05/15/25 History gabapentin 300 mg capsule 300 mg PO BID 12/27/24 05/15/25 History tizanidine 4 mg tablet 4 mg PO Q8H PRN Muscle Spasm 02/08/25 05/15/25 History isosorbide mononitrate 30 mg 30 mg PO QAM #30 tabs 03/31/25 05/15/25 Rx tablet,extended release 24 hr metoprolol succinate 25 mg 12.5 mg (1/2 x 25 mg) PO QAM #30 03/31/25 05/15/25 Rx tablet,extended release 24 hr tabs pantoprazole 40 mg tablet,delayed 40 mg PO BID #60 tabs 03/31/25 05/15/25 Rx release acetaminophen 650 mg 650 mg PO BID 05/15/25 05/15/25 History tablet,extended release albuterol sulfate 2.5 mg/3 mL 2.5 mg inhalation Q4H PRN Wheezing 05/15/25 05/15/25 History (0.083 %) solution for nebulization albuterol sulfate 90 mcg/actuation 2 puff inhalation Q4H PRN 05/15/25 05/15/25 History aerosol inhaler Shortness Of Breath Or Wheezing cholecalciferol (vitamin D3) 50 50 mcg PO DAILY 05/15/25 05/15/25 History mcg (2,000 unit) capsule (Vitamin D3) diclofenac sodium 1 % topical gel 2 g topical TID PRN Muscle Pain 05/15/25 05/15/25 History hydrocodone 5 mg-acetaminophen 325 1 tab PO Q6H PRN Pain, Moderate, 05/15/25 05/15/25 History mg tablet Severe onabotulinumtoxinA 200 unit 200 unit subcut .Q12WK 05/15/25 05/15/25 History solution for injection (Botox) Past Med/Surg History Problem List Partial obstruction of small intestine (Acute) Shortness of breath (Acute) Chest pain (Acute) Atypical chest pain Diastolic congestive heart failure ASCVD (arteriosclerotic cardiovascular disease) Dysphagia Chest pain at rest Aortic mural thrombus (Acute) Near syncope (Acute) Dizziness (Acute) Chest pain (Acute) Chest pain (Acute) HTN (hypertension) Postoperative anemia Weakness (Acute) Falling (Acute) Anemia (Acute) Acute head trauma (Acute) History of lumbar surgery (Acute) Hyponatremia (Acute) Lumbar spinal stenosis Ambulatory dysfunction Multiple falls HLD (hyperlipidemia) CKD (chronic kidney disease), stage III Nonobstructive atherosclerosis of coronary artery (2018) LAD and circumflex free of major disease. RCA with 40 to 50% mid right coronary stenosis and 40% stenosis at the takeoff of the PDA. Tobacco use (Chronic) GERD (gastroesophageal reflux disease) (Chronic) Diastolic dysfunction (Chronic) History of cholecystectomy (Chronic) History of hysterectomy (Chronic) Nocturnal hypoxia (Chronic) reported secondary to COPD. Pt not on home oxygen HS secondary to reported insurance issues Encounter for smoking cessation counseling (Acute) COPD (chronic obstructive pulmonary disease) (Chronic) Anxiety (Chronic) Osteoarthritis (Chronic) Osteoporosis (Chronic) Depression (Chronic) Medical History Cervical spinal stenosis Vasospastic angina NSTEMI (non-ST elevated myocardial infarction) ACS (acute coronary syndrome) Surgical History History of section History of arthroscopy of right shoulder History of carpal tunnel surgery S/P cervical spinal fusion History of lumbar fusion Family History Sister Breast cancer Aunt Breast cancer Father Coronary heart disease Brother Hypertension Father Hypertension Social History Smoking Status: Former smoker Tobacco Type: Cigarettes Second Hand Exposure: No; Do You Dip or Chew Tobacco: No; Hx Alcohol Use: No Hx Substance Use: No Preferred Language: Polish Communication Ability: Effective Director External Communications Required: No Beliefs That Will Affect Care: None Current Living Situation: Alone Current Living Situation Comment: Home alone in her own appartment Feels Safe at Home: Yes Assistive Devices: Cane, Nebulizer and Walker Review of Systems Review of Systems: All systems reviewed & are unremarkable except as noted in HPI & below Physical Exam Physical Exam: General- Not in distress Head- atraumatic Eyes- PERRL. ENT- oropharynx clear Neck- supple, no JVD. Lungs- clear to auscultation no wheezing or crackles Heart- regular rate and rhythm; no murmur, no gallop. Abdomen- normal bowel sounds, soft, mild diffuse tenderness, no guarding no distension Extremities- no pretibial edema, no erythema seen Neuro- alert, oriented PERRL, no facial palsy; no dysarthria; moves extremities Results & Data Results & Data Vital Signs (Past 12 Hours) Vital Signs Temp Pulse Pulse Resp BP BP Pulse Ox 05/16/25 01:15 68 18 141/49 H 100 05/16/25 00:04 69 16 145/63 H 97 05/16/25 00:03 71 99 05/15/25 23:24 62 05/15/25 23:15 36.9 C 81 16 173/49 H 99 O2 Del Method O2 Flow Rate 05/16/25 01:15 Room Air 05/16/25 00:04 Nasal Cannula 2 05/16/25 00:03 05/15/25 23:24 05/15/25 23:15 Room Air Diagnostic Findings Laboratory Results WBC 14.57 K/ul (4.8-10.8) H 05/15/25 23:29 RBC 4.07 M/uL (4.20-5.40) L 05/15/25 23:29 Hgb 11.9 g/dl (12.0-16.0) L 05/15/25 23:29 Hct 36.9 % (37.0-47.0) L 05/15/25 23: MCV 90.7 fL (80.0-100.0) 05/15/25 23:29 MCH 29.2 pg (25.0-34.0) 05/15/25 23: MCHC 32.2 g/dL (32.0-36.0) 05/15/25 23:29 RDW Std Deviation 41.4 fL (36.4-46.3) 05/15/25: RDW Coeff of Melany 12.8 % (11.5-14.5) 05/15/25 Plt Count 221 K/uL (130-400) 05/15/25: MPV 10.4 fL (9.4-12.4) 05/15/25: Immature Gran % (Auto) 0.8 % 05/15/25: Neut % (Auto) 76.1 % 05/15/25: Lymph % (Auto) 13.0 % 05/15/25: [place] % (Auto) 8.1 % 05/15/25: Eos % (Auto) 1.5 % 05/15/25 Baso % (Auto) 0.5 % 05/15/25 Neut # (Auto) 11.10 K/uL (1.40-6.50) H 05/15/25: Lymph # (Auto) 1.89 K/uL (1.20-3.40) 05/15/25: [place] # (Auto) 1.18 K/uL (0.11-0.59) H 05/15/25: Eos # (Auto) 0.22 K/uL (0.00-0.50) 05/15/25: Baso # (Auto) 0.07 K/uL (0.00-0.20) 05/15/25: Immature Gran # (Auto) 0.11 K/uL (0.01-0.20) 05/15/25: PT 10.4 Seconds (9.0-12.0) 05/15/25: INR 1.0 (0.9-1.1) 05/15/25: Sodium 138 mmol/L (136-145) 05/15/25: Potassium 3.6 mmol/L (3.5-5.1) 05/15/25: Chloride 105 mmol/L (98-107) 05/15/25: Carbon Dioxide 24 mmol/L (21-32) 05/15/25: Anion Gap 9 (3-11) 09/25/25 23:29 BUN 27 mg/dl (6-23) H 05/15/25 23: Creatinine 1.13 mg/dl (0.6-1.2) 05/15/25 23: Est Cr Clr Drug Dosing 38.0 ml/min 05/15/25 23:29 eGFR 51.05 05/15/25 23:29 BUN/Creatinine Ratio 23.9 (10-20) H 05/15/25 23: Glucose 137 mg/dl (70-99(Fasting)) H 05/15/25 23: Calcium 9.4 mg/dl (8.6-10.3) 05/15/25 23: Total Bilirubin 0.3 mg/dl (0.2-1.0) 05/15/25 23: AST 18 U/L (13-39) 05/15/25 23: ALT 12 U/L (7-52) 05/15/25 23: Alkaline Phosphatase 96 U/L (34-104) 05/15/25 23: Total Protein 7.6 gm/dl (6.0-8.3) 05/15/25 23: Albumin 4.2 gm/dl (3.4-5.0) 05/15/25 23: Globulin 3.4 gm/dl (2.5-4.0) 05/15/25 23: Albumin/Globulin Ratio 1.2 (0.9-2) 05/15/25 23:29 Lipase 20 U/L (11-82) 05/15/25 23:29 Urine Color Yellow 05/16/25 Unknown Urine Appearance Cloudy (Clear) A 05/16/25 Unknown Urine pH 5.5 (4.5-7.5) 05/16/25 Unknown Ur Specific [place] 1.021 (1.000-1.030) 05/16/25 Unknown Urine Protein 1+ (Negative) H 05/16/25 Unknown Urine Glucose (UA) Negative (Negative) 05/16/25 Unknown Urine Ketones Trace (Negative) H 05/16/25 Unknown Urine Blood 2+ (Negative) H 05/16/25 Unknown Urine Nitrite Negative (Negative) 05/16/25 Unknown Urine Bilirubin Negative (Negative) 05/16/25 Unknown Urine Urobilinogen Negative (Negative) 05/16/25 Unknown Ur Leukocyte Esterase 2+ (Negative) H 05/16/25 Unknown Urine WBC (Auto) 11-20 /hpf (0-5) H 05/16/25 Unknown Urine RBC (Auto) 0-2 /hpf (0-2) 05/16/25 Unknown U Hyaline Cast (Auto) 0-2 /lpf (0-2) 05/16/25 Unknown U Epithel Cells (Auto) 6-10 /hpf (0-2) H 05/16/25 Unknown Urine Bacteria (Auto) None Seen (None Seen) 05/16/25 Unknown Urine Comment 05/16/25 Unknown Impressions Abdomen/Pelvis CT 05/15/25 23:19 Exam(s): CT ABDOMEN + PELVIS Without Contrast EXAM: CT Abdomen and Pelvis Without Intravenous Contrast CLINICAL HISTORY: R flank pain. TECHNIQUE: Axial computed tomography images of the abdomen and pelvis without intravenous contrast. CTDI is 25 mGy and DLP is 1132 mGy-cm. Automated exposure control was utilized for the study. A dose lowering technique was utilized adhering to the principles of ALARA. COMPARISON: 12/07/2017. FINDINGS: Lung bases: Mild [id number]-[id number]-left basilar atelectasis. ABDOMEN: Liver: 16.2 cm length. Unchanged 10 mm probable cyst in the right lobe of the liver. Gallbladder and bile ducts: Post cholecystectomy. No ductal dilation. Pancreas: Unremarkable. No ductal dilation. Spleen: Unremarkable. No splenomegaly. Adrenals: Unremarkable. No mass. Kidneys and ureters: No obstructive uropathy. No obstructing renal or ureteral calculi. No hydronephrosis or hydroureter. Stomach and bowel: Unremarkable stomach. Mildly dilated small bowel with air-fluid levels throughout the abdomen pelvis. Distal small bowel normal in caliber. Poorly defined transition in the right lower quadrant. Appearance is suggestive of a partial small bowel obstruction. Normal caliber colon. No evidence for diverticulitis. PELVIS: Appendix: No findings to suggest acute appendicitis. Bladder: Partially contracted. No stones. Reproductive: Post hysterectomy. Ovaries not visualized. ABDOMEN and PELVIS: Intraperitoneal space: No free air. Small amount of pelvic free fluid. Bones/joints: No acute fracture. Metal artifact from interval posterior fusion of L4 through S1 of the lumbar spine. Soft tissues: Unremarkable. Vasculature: Atherosclerotic vascular calcifications. No abdominal aortic aneurysm. Lymph nodes: Unremarkable. No enlarged lymph nodes. IMPRESSION: Partial small bowel obstruction as described above. Small amount of lower pelvic free fluid. Interval lower lumbar spine posterior fusion. Otherwise no change. Electronically signed by: Jerson Santos M.D. 05/16/25 01:15 AM Code Status & VTE Plan VTE Prophylaxis Plan VTE Prophylaxis will be ordered: Yes
[2025-05-16] MEDS: D5W AND 1/2NSS 1,000 ML IV SCH (05:19)
--- NOTE | 2025-05-16 05:59 | Surgery Consultation ---
Date of Consultation May 16, 2025 Assessment & Plan (1) Partial obstruction of small intestine: The patient has been admitted on the hospitalist service. From a surgical perspective we recommend the following: Patient has been made n.p.o. and this should continue. Consideration be given to advancing the patient's diet once she has return of bowel function and improvement of her abdominal exam The patient has not had any emesis since her symptomatology began. I did discuss with the patient the use of an NG tube and told her I feel we can hold off on this for the present time but if she does have any nausea or vomiting or worsening her abdominal exam this modality may need to be reconsidered and she expressed her understanding IV fluids to be provided for hydration Serial labs to be followed Analgesics and antiemetics can be provided Will continue to follow patient's clinical progress closely. If she fails to open up from her partial small bowel obstruction consideration may be given to performing some type of contrast utilizing study, but the need for this is yet to be determined Additional recommendations to be forthcoming based on her clinical course as unfolds Supervising Physician Co-Signing Physician Notes I have seen and examined this patient this am. She feels improved since she came in. She is not currently nauseous, is not yet passing flatus. Believes her last colonoscopy was about 4 years ago at which time polyps were found but she states none removed. History of Present Illness Reason for Consultation: Partial small bowel obstruction Attending Physician: Edmundo Novoa MD History of Present Illness This is a 74-year-old female who presented to the emergency department secondary to abdominal pain. She notes that the abdominal pain began yesterday and was a sharp pain located in her right upper quadrant. She notes the pain did not radiate and did not have any other mitigating factors. She reports that she felt somewhat nauseated but she did not have any emesis. Patient denies any fevers, shakes, or chills. She has had prior abdominal surgery in the form of a laparoscopic cholecystectomy and a . She has never had a small bowel obstruction in the past. Patient further reports that since her pain began she has not been passing flatus and has not had a bowel movement. She does report her most recent bowel movement was the day preceding her pain beginning. Since arrival to hospital she has had labs and imaging which I independently reviewed. A CT scan of the abdomen pelvis showed that her small bowel was mildly dilated with some air-fluid levels. There is a poorly defined transition point in the right lower quadrant which was suggestive of a partial small bowel obstruction. There is no free intraperitoneal air. Labs including CBC were white blood cell count was elevated at 14.5. Hemoglobin and hematocrit are 11.9 and 36.9. Platelet count was normal. Coagulation studies were normal. Chemistry profile showed sodium and potassium were normal. The BUN had an elevation of 27 and the creatinine was normal. There is no elevation of LFTs or lipase. Urinalysis showed 2+ leukocyte esterase and 11-20 white blood cells per high-power field. There is no bacteria or nitrates on this study. Since arrival to the emergency department the patient does note some improvement of her symptomatology and she was in no distress resting comfortably in bed. Allergies Allergy/AdvReac Type Severity Reaction Status Date / Time chlorpheniramine Allergy Severe Anaphylaxis Verified 05/15/25 23:42 dextromethorphan Allergy Severe Anaphylaxis Verified 05/15/25 23:42 Iodinated Contrast Media Allergy Intermediate Hives Verified 05/15/25 23:42 Penicillins Allergy Intermediate Rash Verified 05/15/25 23:42 latex Allergy Mild RASH Verified 05/15/25 23:42 varenicline AdvReac Severe NAUSEA Verified 05/15/25 23:42 benzalkonium chloride AdvReac Intermediate VERTIGO Verified 05/15/25 23:42 Corticosteroids AdvReac Intermediate HYPER, Verified 05/15/25 23:42 (Glucocorticoids) MENTAL STATUS CHANGES W/ORAL STEROIDS. ibuprofen AdvReac Intermediate ACID REFLEX Verified 05/15/25 23:42 ofloxacin AdvReac Intermediate VERTIGO Verified 05/15/25 23:42 Home Medications Medication Instructions Recorded Confirmed Type amitriptyline 10 mg tablet 20 mg PO HS 09/20/18 05/15/25 History aspirin 81 mg tablet,delayed 81 mg PO QAM 09/20/18 05/15/25 History release sertraline 100 mg tablet 200 mg PO HS 09/20/18 05/15/25 History calcium carbonate (Calcium 600) 600 mg PO BIDM 01/02/19 05/15/25 History ezetimibe 10 mg tablet (Zetia) 10 mg PO QAM 11/05/19 05/15/25 History atorvastatin 80 mg tablet 80 mg PO QAM 04/10/23 05/15/25 History hydroxyzine HCl 25 mg tablet 25 mg PO Q6H PRN Anxiety 04/10/23 05/15/25 History nitroglycerin 0.4 mg sublingual 0.4 mg sublingual UD PRN Chest Pain 04/22/23 05/15/25 History tablet umeclidinium 62.5 mcg-vilanterol 1 inh inhalation QAM 04/22/23 05/15/25 History 25 mcg/actuation powdr for inhalation (Anoro Ellipta) furosemide 40 mg tablet 20 mg PO 3XWK 12/27/24 05/15/25 History gabapentin 300 mg capsule 300 mg PO BID 12/27/24 05/15/25 History tizanidine 4 mg tablet 4 mg PO Q8H PRN Muscle Spasm 02/08/25 05/15/25 History isosorbide mononitrate 30 mg 30 mg PO QAM #30 tabs 03/31/25 05/15/25 Rx tablet,extended release 24 hr metoprolol succinate 25 mg 12.5 mg (1/2 x 25 mg) PO QAM #30 03/31/25 05/15/25 Rx tablet,extended release 24 hr tabs pantoprazole 40 mg tablet,delayed 40 mg PO BID #60 tabs 03/31/25 05/15/25 Rx release acetaminophen 650 mg 650 mg PO BID 05/15/25 05/15/25 History tablet,extended release albuterol sulfate 2.5 mg/3 mL 2.5 mg inhalation Q4H PRN Wheezing 05/15/25 05/15/25 History (0.083 %) solution for nebulization albuterol sulfate 90 mcg/actuation 2 puff inhalation Q4H PRN 05/15/25 05/15/25 History aerosol inhaler Shortness Of Breath Or Wheezing cholecalciferol (vitamin D3) 50 50 mcg PO DAILY 05/15/25 05/15/25 History mcg (2,000 unit) capsule (Vitamin D3) diclofenac sodium 1 % topical gel 2 g topical TID PRN Muscle Pain 05/15/25 05/15/25 History hydrocodone 5 mg-acetaminophen 325 1 tab PO Q6H PRN Pain, Moderate, 05/15/25 05/15/25 History mg tablet Severe onabotulinumtoxinA 200 unit 200 unit subcut .Q12WK 05/15/25 05/15/25 History solution for injection (Botox) Patient History Medical History Cervical spinal stenosis Vasospastic angina NSTEMI (non-ST elevated myocardial infarction) ACS (acute coronary syndrome) Surgical History History of section History of arthroscopy of right shoulder History of carpal tunnel surgery S/P cervical spinal fusion History of lumbar fusion Family History Sister Breast cancer Aunt Breast cancer Father Coronary heart disease Brother Hypertension Father Hypertension Social History Smoking Status: Former smoker Tobacco Type: Cigarettes Smoking End Date: 1.5 years ago; Second Hand Exposure: No; Do You Dip or Chew Tobacco: No; Hx Alcohol Use: No Hx Substance Use: No Preferred Language: Italian Communication Ability: Effective Telephoto Installer Required: No Beliefs That Will Affect Care: None Current Living Situation: Alone Current Living Situation Comment: Home alone in her own appartment Feels Safe at Home: Yes Safety Concerns: Feels Safe At This Time Assistive Devices: Oxygen - at Night Assistive Devices Comment: 1L Review of Systems Review of Systems: All systems reviewed & are unremarkable except as noted in HPI & below Physical Exam Constitutional: WD/WN, vitals as above Eyes: no conjunctival abnormality ENMT: Ears: no hearing impairment and no external ear abnormality Mouth: no oropharynx abnormality Neck: trachea midline Respiratory: normal respiratory effort; no respiratory distress and no labored breathing Cardiovascular: Rate/Rhythm: regular rate and regular rhythm Gastrointestinal (Abdomen): Abdomen had mild distention noted. There was slightly tympanic to percussion. The patient did have some generalized pain with palpation which appear to be greatest just to the right of the umbilicus. There is no rebound tenderness, guarding or signs of peritonitis. Musculoskeletal: No calf tenderness Skin: no rashes Neurologic: moves all extremities Psychiatric: A+Ox3, euthymic affect Results & Data Vital Signs (Past 12 Hours) Vital Signs Temp Pulse Pulse Resp BP BP Pulse Ox 05/16/25 04:00 63 18 118/43 L 99 05/16/25 03:03 64 16 127/43 L 98 05/16/25 03:00 64 16 127/43 L 100 05/16/25 01:15 68 18 141/49 H 100 05/16/25 00:04 69 16 145/63 H 97 05/16/25 00:03 71 99 05/15/25 23:24 62 05/15/25 23:15 36.9 C 81 16 173/49 H 99 O2 Del Method O2 Flow Rate 05/16/25 04:00 05/16/25 03:03 05/16/25 03:00 Room Air 05/16/25 01:15 Room Air 05/16/25 00:04 Nasal Cannula 2 05/16/25 00:03 05/15/25 23:24 05/15/25 23:15 Room Air PG Care Time/CCT Total # of Minutes Spent Total Time Spent with Patient: Total time spent is greater than 50% in coordination of care (as documented) at patient's floor/unit and/or counseling patient: Coding Level of Care Code 70520 INT INP/OBS CARE 2/55MIN Diagnoses Partial obstruction of small intestine K56.600
[2025-05-16 08:08] LABS: Hematocrit (blood only) 30.3 % (37.0-47.0); Hemoglobin 10.3 g/dl (12.0-16.0); Immature Granulocytes # (auto) 0.04 K/uL (0.01-0.20); Immature Granulocytes % (auto) 0.6 %; Mean Corpuscular Hemoglobin 30.7 pg (25.0-34.0); Mean Corpuscular Volume 90.2 fL (80.0-100.0); Platelet Count 170 K/uL (130-400); RDW Standard Deviation 42.0 fL (36.4-46.3); Red Blood Count 3.36 M/uL (4.20-5.40); White Blood Count 6.43 K/ul (4.8-10.8)
[2025-05-16] MEDS: UMECLIDINIUM/VILANTEROL 62.5/25MCG 7 PUFFS/INHALER INH SCH (08:09)
[2025-05-16] MEDS: METOPROLOL SUCC 25MG EXT REL TAB PO SCH (08:10)
[2025-05-16] MEDS: ENOXAPARIN INJ 40 MG/0.4 ML SYR SQ SCH (08:10)
[2025-05-16] MEDS: EZETIMIBE 10 MG TAB PO SCH (08:10)
[2025-05-16] MEDS: FUROSEMIDE 20 MG TAB PO SCH (08:12)
[2025-05-16] MEDS: ATORVASTATIN 40 MG TAB PO SCH (08:12)
[2025-05-16] MEDS: CHOLECALCIFEROL 25 MCG (1000 UNITS) TAB PO SCH (08:13)
[2025-05-16] MEDS: CALCIUM CARBONATE 1250MG TAB PO SCH (08:14)
[2025-05-16] MEDS: ISOSORBIDE MONO EXTENDED REL 30 MG TABCR PO SCH (08:15)
[2025-05-16] MEDS: ASPIRIN 81 MG ECTAB PO SCH (08:15)
[2025-05-16] MEDS: GABAPENTIN 300 MG CAP PO SCH (08:15)
[2025-05-16] MEDS: HYDROmorphone INJ 0.5 MG/0.5 ML SYR IV PRN (08:19)
[2025-05-16 08:24] LABS: Anion Gap 5.0 (3-11); Calcium 8.3 mg/dl (8.6-10.3); Carbon Dioxide 26.0 mmol/L (21-32); Chloride 109.0 mmol/L (98-107); Magnesium 1.8 mg/dl (1.7-2.4); Potassium 3.6 mmol/L (3.5-5.1); Sodium 140.0 mmol/L (136-145)
[2025-05-16 08:29] LABS: Blood Urea Nitrogen 24.0 mg/dl (6-23); Creatinine Clr Calc Pharmacy 45.7 ml/min; Glucose 112.0 mg/dl (70-99(Fasting))
[2025-05-16] MEDS: ACETAMINOPHEN 1,000 MG/100 ML VIAL IV PRN (10:34)
[2025-05-16] MEDS: POTASSIUM CHLORIDE / WTR 10 MEQ/100 ML PLCT IV SCH (12:40)
[2025-05-16] MEDS: MAGNESIUM SULFATE / D5W 1 GM/100 ML BAG IV ONE (12:40)
[2025-05-16 17:51] LABS: Hematocrit (blood only) 31.4 % (37.0-47.0); Hemoglobin 10.1 g/dl (12.0-16.0); Mean Corpuscular Hemoglobin 29.6 pg (25.0-34.0); Mean Corpuscular Volume 92.1 fL (80.0-100.0); Platelet Count 174 K/uL (130-400); RDW Standard Deviation 43.9 fL (36.4-46.3); Red Blood Count 3.41 M/uL (4.20-5.40); White Blood Count 5.28 K/ul (4.8-10.8)
[2025-05-16 18:11] LABS: Anion Gap 5.0 (3-11); Blood Urea Nitrogen 18.0 mg/dl (6-23); Calcium 8.4 mg/dl (8.6-10.3); Carbon Dioxide 28.0 mmol/L (21-32); Chloride 107.0 mmol/L (98-107); Creatinine Clr Calc Pharmacy 40.7 ml/min; Glucose 102.0 mg/dl (70-99(Fasting)); Magnesium 2.0 mg/dl (1.7-2.4); Potassium 3.9 mmol/L (3.5-5.1); Sodium 140.0 mmol/L (136-145)
--- NOTE | 2025-05-16 20:05 | XRay Report ---
Chest radiograph, one view History: Hypoxia. Comparison: March 30, 2025. Findings: Partially included cervical thoracic fusion hardware not appreciably changed. Calcified atherosclerotic changes of the thoracic aorta. Lung volume slightly decreased. Linear band densities bilateral pulmonary bases likely representing subsegmental atelectasis. Pulmonary vasculature is within normal limits. Poorly defined costophrenic angles. These are new when compared to prior exam. Impression: Interval slightly decreased lung volumes with bibasilar subsegmental atelectasis and likely small effusions. Electronically signed by Gomez Torres 05-16-2025 8:01 PM
[2025-05-16] MEDS: SERTRALINE HCL 100 MG TABLET PO SCH (20:56)
[2025-05-16] MEDS: AMITRIPTYLINE HCL 10 MG TAB PO SCH (20:56)
--- NOTE | 2025-05-17 05:22 | Surgery Progress Note ---
Date of Service May 17, 2025 Assessment & Plan (1) Partial obstruction of small intestine: Plan: The patient has been admitted on the hospitalist service. Surgical recommendations are as follows: Continue n.p.o. status until patient has had some return of bowel function, at which time consideration be given to advancing diet beginning with clear liquids Continue intravenous fluids for hydration until diet can be advanced Encourage ambulation Check a.m. labs when available Lovenox is in place for DVT prevention Admission and Anticipated Discharge Date Admission Date: May 16, 2025 Supervising Physician Co-Signing Physician Notes I have seen and examined this pt, I agree with this plan. Ambulate with assistance when able Subjective Patient is resting comfortably in bed. She notes that the abdominal pain she had at time of admission has slightly improved. She denies any nausea or vomiting. She notes that she has not had a bowel movement and is not passing flatus since admission. Physical Exam Gastrointestinal (Abdomen): Abdomen is soft with minimal distention. There is minimal pain with palpation of her abdomen. There is no rigidity, rebound tenderness, or guarding. Results & Data Vital Signs (Past 12 Hours) Vital Signs Temp Pulse Resp BP Pulse Ox O2 Del Method O2 Flow Rate 05/17/25 00:29 94 Nasal Cannula 2 05/17/25 00:19 86 L Room Air 05/16/25 22:24 37.6 C H 66 18 146/75 H 94 Nasal Cannula 2 05/16/25 19:30 Nasal Cannula 2.5 PG Care Time/CCT Total # of Minutes Spent Total Time Spent with Patient: Total time spent is greater than 50% in coordination of care (as documented) at patient's floor/unit and/or counseling patient: Coding Level of Care Code 99959 SUB INP/OBS CARE 09/14MIN Diagnoses Partial obstruction of small intestine K56.600
[2025-05-17] MEDS: ONDANSETRON INJ 2 MG/ML 2 ML VIAL IV PRN (06:15)
[2025-05-17 07:50] LABS: Hematocrit (blood only) 30.1 % (37.0-47.0); Hemoglobin 10.1 g/dl (12.0-16.0); Mean Corpuscular Hemoglobin 30.4 pg (25.0-34.0); Mean Corpuscular Volume 90.7 fL (80.0-100.0); Platelet Count 176 K/uL (130-400); RDW Standard Deviation 41.1 fL (36.4-46.3); Red Blood Count 3.32 M/uL (4.20-5.40); White Blood Count 6.06 K/ul (4.8-10.8)
[2025-05-17 08:13] LABS: Anion Gap 4.0 (3-11); Blood Urea Nitrogen 12.0 mg/dl (6-23); Calcium 8.4 mg/dl (8.6-10.3); Carbon Dioxide 28.0 mmol/L (21-32); Chloride 108.0 mmol/L (98-107); Creatinine Clr Calc Pharmacy 44.8 ml/min; Glucose 120.0 mg/dl (70-99(Fasting)); Magnesium 1.7 mg/dl (1.7-2.4); Potassium 3.6 mmol/L (3.5-5.1); Sodium 140.0 mmol/L (136-145)
--- NOTE | 2025-05-17 10:20 | Hospitalist Progress Note ---
Date of Service May 17, 2025 Assessment & Plan (1) Partial obstruction of small intestine: Plan: 74-year-old female with past medical history significant for COPD, dyslipidemia, nocturnal hypoxemia due to emphysema, history of CAD, history of chronic heart failure with preserved ejection fraction, history of hypertension, GERD, history dysphagia, CKD stage III, osteoarthritis, migraine, depression, general anxiety disorder, lumbar spinal stenosis, adjustment disorder with anxious mood comes in because of abdominal pain. Patient says abdominal pain started yesterday morning. It is severe in nature. It is mostly in the right side. Associated w ith nausea. No vomiting. Had normal bowel movement yesterday afternoon. No fevers. No cough. No chest pain. No shortness of breath. No headache currently. No runny nose or sore throat. Vision is okay. No earaches. Micturating okay. Hemodynamics are okay. Partial small bowel obstruction N.p.o., IV fluids, IV pain meds pain, IV antiemetics as needed still not passing any flatus, no BM Surgery consulted, and following closely Close monitor medical floor History of COPD Will continue inhalers Nocturnal hypoxemia on oxygen q hs Nonobstructive CAD On aspirin, statin beta-randi and Imdur Carotid artery disease CTA chest in December 2024: 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 cause about 20-30% luminal narrowing. Follow-up with vascular surgery On aspirin and statin Chronic diastolic CHF On Lasix 3 times a week Getting gentle fluids Will monitor for volume overload Hypertension On Imdur, lisinopril and metoprolol succinate Will monitor Hyperlipidemia On statin and Zetia GERD Omeprazole Depression Generalized anxiety disorder On Zoloft, amitriptyline and hydroxyzine as needed DVT prophylaxis SCDs Lovenox Disposition Medical floor Full code Admission and Anticipated Discharge Date Admission Date: May 16, 2025 Subjective Pt seen in follow up of partial SBO Currently sitting up in bed in NAD, little drowsy but awake, able to answer questions Per RN at the bedside - pt got pain meds this AM, overnight was doing ok Pt seen w/ surgeon at the bedside as well Pt is not passing flatus yet, no nausea, vomiting, pt was asking me about food, explained that for now she needs to be npo asked her to work w/ spirometer - she experienced some R lower chest/ upper abd. discomfort w/ deep breath encouraged ambulation Review of Systems Review of Systems: All systems reviewed & are unremarkable except as noted in Subjective Physical Exam Physical Exam: General- WD/WN F in NAD Head- NC/AT. Eyes- PERRL. Neck- supple, no JVD. Lungs- clear to auscultation no wheezing or crackles Heart- regular rate and rhythm; no murmur Abdomen- normal bowel sounds, soft, mild diffuse tenderness florina. left mid abd.,, no guarding Extremities- no pretibial edema, no erythema seen Neuro- drowsy but awake, answers appropriately, no facial palsy; no dysarthria; moves extremities Results & Data Results & Data Vital Signs (Past 12 Hours) Vital Signs Temp Pulse Resp BP Pulse Ox O2 Del Method O2 Flow Rate 05/17/25 07:14 37.2 C 67 18 114/68 94 Nasal Cannula 2 05/17/25 00:29 94 Nasal Cannula 2 05/17/25 00:19 86 L Room Air 05/16/25 22:24 37.6 C H 66 18 146/75 H 94 Nasal Cannula 2 Laboratory Results 05/17/25 05/16/25 Range/Units 07:20 17:32 WBC 6.06 5.28 (4.8-10.8) K/ul RBC 3.32 L 3.41 L (4.20-5.40) M/uL Hgb 10.1 L 10.1 L (12.0-16.0) g/dl Hct 30.1 L 31.4 L (37.0-47.0) % MCV 90.7 92.1 (80.0-100.0) fL MCH 30.4 29.6 (25.0-34.0) pg MCHC 33.6 32.2 (32.0-36.0) g/dL RDW Std Deviation 41.1 43.9 (36.4-46.3) fL RDW Coeff of Melany 12.6 13.1 (11.5-14.5) % Plt Count 176 174 (130-400) K/uL MPV 10.7 10.3 (9.4-12.4) fL Sodium 140 140 (136-145) mmol/L Potassium 3.6 3.9 (3.5-5.1) mmol/L Chloride 108 H 107 (98-107) mmol/L Carbon Dioxide 28 28 (21-32) mmol/L Anion Gap 4 5 (3-11) BUN 12 18 (6-23) mg/dl Creatinine 0.89 0.98 (0.6-1.2) mg/dl Est Cr Clr Drug Dosing 44.8 40.7 ml/min eGFR 67.99 60.57 BUN/Creatinine Ratio 13.5 18.4 (10-20) Glucose 120 H 102 H (70-99(Fasting)) mg/dl Lactate 0.7 (0.4-2.0) mmol/L Calcium 8.4 L 8.4 L (8.6-10.3) mg/dl Phosphorus 3.0 3.0 (2.5-4.9) mg/dl Magnesium 1.7 2.0 (1.7-2.4) mg/dl Medications Administered Current Inpatient Medications Albuterol (Albuterol 0.083% Nebu Soln 3 Ml Vial) 2.5 mg INH Q4H PRN; Protocol PRN Reason: Wheezing Stop: 06/15/25 03:38 Albuterol (Albuterol Hfa 8 Gm Inhaler) 2 puffs INH Q4H PRN PRN Reason: Shortness Of Breath Or Wheezing Stop: 06/15/25 03:38 Amitriptyline HCl (Amitriptyline Hcl 10 Mg Tab) 20 mg PO [facility] Stop: 06/15/25 20:59 Last Admin: 05/16/25 20:56 Dose: 20 mg Aspirin (Aspirin 81 Mg Ectab) [facility] [place] Stop: 06/15/25 08:59 Last Admin: 05/17/25 08:26 Dose: 81 mg Atorvastatin Calcium (Atorvastatin 40 Mg Tab) [facility] [place] Stop: 06/15/25 08:59 Last Admin: 05/17/25 08:27 Dose: 80 mg Calcium Carbonate (Calcium Carbonate 1250mg Tab) 1 tab PO BIDM [facility] Stop: 06/15/25 07:59 Last Admin: 05/17/25 08:26 Dose: 1 tab Diclofenac Sodium (Diclofenac Sod 1% Gel 100 Gm Tube) 2 gm EXT TID PRN; Protocol PRN Reason: Muscle Pain Stop: 06/15/25 03:38 Ezetimibe (Ezetimibe 10 Mg Tab) 10 mg PO [facility] Stop: 06/15/25 08:59 Last Admin: 05/17/25 08:28 Dose: 10 mg Enoxaparin Sodium (Enoxaparin Inj 40 Mg/0.4 Ml Syr) 40 mg SQ Q24H [facility] Stop: 06/15/25 08:59 Last Admin: 05/17/25 08:27 Dose: 40 mg Furosemide (Furosemide 20 Mg Tab) 20 mg PO MoWeFr@0900 [facility] Stop: 06/15/25 08:59 Last Admin: 05/16/25 08:12 Dose: 20 mg Gabapentin (Gabapentin 300 Mg Cap) 300 mg PO BID [facility] Stop: 06/15/25 08:59 Last Admin: 05/16/25 08:15 Dose: 300 mg Hydromorphone HCl (Hydromorphone Inj 0.5 Mg/0.5 Ml Syr) 0.25 mg IV Q6H PRN PRN Reason: Moderate Pain (Scale 4, 5, 6) Stop: 05/30/25 03:38 Hydromorphone HCl (Hydromorphone Inj 0.5 Mg/0.5 Ml Syr) 0.5 mg IV Q6H PRN PRN Reason: Severe Pain (Scale 7, 8, 9,10) Stop: 05/30/25 03:38 Last Admin: 05/17/25 06:08 Dose: 0.5 mg Hydroxyzine HCl (Hydroxyzine Hcl 25 Mg Tab) 25 mg PO Q6H PRN PRN Reason: Anxiety Stop: 06/15/25 03:38 Ceftriaxone Sodium (Rocephin) 2,000 mg in 50 mls @ 100 mls/hr IV Q24H [facility] Stop: 05/21/25 02:29 Last Infusion: 05/17/25 06:30 Dose: Infused Dextrose/Sodium Chloride (D5w And 1/2nss) 1,000 mls @ 125 mls/hr IV .Q8H [facility] Stop: 05/19/25 03:38 Last Admin: 05/17/25 09:21 Dose: 125 mls/hr Acetaminophen (Ofirmev) 1,000 mg in 100 mls @ 400 mls/hr IV Q8H PRN PRN Reason: Pain or Fever Stop: 05/19/25 03:38 Last Infusion: 05/16/25 10:49 Dose: Infused Potassium Chloride (K [place] / Wtr) 10 meq in 100 mls @ 100 mls/hr IV Q1H [facility] Stop: 05/17/25 12:14 Isosorbide Mononitrate (Isosorbide [place] Extended Rel 30 Mg Tabcr) 30 mg PO QAM [facility] Stop: 06/15/25 08:59 Last Admin: 05/17/25 08:28 Dose: 30 mg Metoprolol Succinate (Metoprolol Succ 25mg Ext Rel Tab) 12.5 mg PO QAM [facility] Stop: 06/15/25 08:59 Last Admin: 05/17/25 08:28 Dose: 12.5 mg Nitroglycerin (Nitroglycerin Sl 0.4 Mg/Tab Tab) 0.4 mg SL UD PRN PRN Reason: Chest Pain Stop: 06/15/25 03:38 Ondansetron HCl (Ondansetron Inj 2 Mg/Ml 2 Ml Vial) 4 mg IV Q6H PRN PRN Reason: Nausea Stop: 06/15/25 03:38 Last Admin: 05/17/25 06:15 Dose: 4 mg Pantoprazole Sodium (Pantoprazole 40 Mg Tab) 40 mg PO BID [facility] Stop: 06/15/25 08:59 Last Admin: 05/17/25 08:28 Dose: 40 mg Sertraline HCl (Sertraline Hcl 100 Mg Tablet) 200 mg PO HS [facility] Stop: 06/15/25 20:59 Last Admin: 05/16/25 20:56 Dose: 200 mg Tizanidine HCl (Tizanidine Hcl 4 Mg Tablet) 4 mg PO Q8H PRN PRN Reason: Muscle Spasm Stop: 06/15/25 03:38 Umeclidinium/Vilanterol (Umeclidinium/Vilanterol 62.5/25mcg 7 Puffs/Inhaler) 1 puffs INH QAM [facility] Stop: 06/15/25 08:59 Last Admin: 05/17/25 08:29 Dose: 1 puffs Vitamin D (Cholecalciferol 25 Mcg (1000 Units) Tab) 50 mcg PO DAILY [facility] Stop: 06/15/25 08:59 Last Admin: 05/17/25 08:27 Dose: 50 mcg
[2025-05-17] MEDS: POTASSIUM CHLORIDE / WTR 10 MEQ/100 ML PLCT IV SCH (10:58)
[2025-05-17] MEDS: MAGNESIUM SULFATE / D5W 1 GM/100 ML BAG IV ONE (16:49)
--- NOTE | 2025-05-18 00:39 | XRay Report ---
Exam(s): XR CXR 1 VIEW EXAM: XR Chest, 1 View CLINICAL HISTORY: Reason for exam: sob. TECHNIQUE: Frontal view of the chest. COMPARISON: 05/16/2025 FINDINGS: Lungs: Partially elevated right diaphragm with right basilar thick linear density consistent with atelectasis, pneumonia, or scarring, similar to previous. Pleural space: Unremarkable. No pneumothorax. Heart: The cardiac silhouette is mildly enlarged, unchanged. Mediastinum: Unremarkable. Normal mediastinal contour. Bones/joints: Mild osteophytosis in the lower thoracic spine. Instrumentation in the lower cervical spine. No acute fracture. IMPRESSION: Partially elevated right diaphragm with right basilar thick linear density consistent with atelectasis, pneumonia, or scarring, similar to previous. Electronically signed by: Kwame Jones MD 05/18/25 00:38 AM
--- NOTE | 2025-05-18 05:06 | Surgery Progress Note ---
Date of Service May 18, 2025 Assessment & Plan (1) Partial obstruction of small intestine: Plan: The patient has been admitted on the hospitalist service. Surgical recommendations are as follows: Although the patient is moving her bowels we will continue with n.p.o. status as she does not report much of an appetite. If she does clinically improve today consideration be given to allowing clear liquids Continue intravenous fluids for hydration until diet can be advanced and is reliable Continue to encourage ambulation Check a.m. labs when available Lovenox is in place for DVT prevention Admission and Anticipated Discharge Date Admission Date: May 16, 2025 Supervising Physician Co-Signing Physician Notes Pt seen and examined this am Denies nausea or abdominal pain is passing flatus, has loose BMs May have clears and advance diet as tolerated Continue to ambulate Subjective Patient is currently resting comfortably in bed. She denies any nausea or vomiting. She notes that over the past shift she has had a loose bowel movement and is passing flatus. She denies abdominal pain and reports she does not have much in the way of an appetite. Physical Exam Gastrointestinal (Abdomen): Abdomen is soft with minimal distention. There is no rebound tenderness or guarding. There is minimal to no pain with palpation. Results & Data Vital Signs (Past 12 Hours) Vital Signs Temp Pulse Resp BP Pulse Ox O2 Del Method O2 Flow Rate 05/17/25 22:37 36.4 C L 71 18 161/74 H 97 Nasal Cannula 2 05/17/25 21:10 36.5 C 70 18 180/68 H 94 Nasal Cannula 2.5 05/17/25 19:25 Nasal Cannula 2.5 PG Care Time/CCT Total # of Minutes Spent Total Time Spent with Patient: Total time spent is greater than 50% in coordination of care (as documented) at patient's floor/unit and/or counseling patient: Coding Level of Care Code 15276 SUB INP/OBS CARE 09/14MIN Diagnoses Partial obstruction of small intestine K56.600
[2025-05-18 06:07] LABS: Hematocrit (blood only) 28.8 % (37.0-47.0); Hemoglobin 9.8 g/dl (12.0-16.0); Mean Corpuscular Hemoglobin 30.2 pg (25.0-34.0); Mean Corpuscular Volume 88.9 fL (80.0-100.0); Platelet Count 173 K/uL (130-400); RDW Standard Deviation 39.6 fL (36.4-46.3); Red Blood Count 3.24 M/uL (4.20-5.40); White Blood Count 6.47 K/ul (4.8-10.8)
[2025-05-18 06:21] LABS: Anion Gap 3.0 (3-11); Blood Urea Nitrogen 7.0 mg/dl (6-23); Calcium 8.8 mg/dl (8.6-10.3); Carbon Dioxide 29.0 mmol/L (21-32); Chloride 108.0 mmol/L (98-107); Creatinine Clr Calc Pharmacy 52.4 ml/min; Glucose 120.0 mg/dl (70-99(Fasting)); Magnesium 1.9 mg/dl (1.7-2.4); Potassium 3.7 mmol/L (3.5-5.1); Sodium 140.0 mmol/L (136-145)
--- NOTE | 2025-05-18 08:51 | Hospitalist Progress Note ---
Date of Service May 18, 2025 Assessment & Plan (1) Partial obstruction of small intestine: Plan: 74-year-old female with past medical history significant for COPD, dyslipidemia, nocturnal hypoxemia due to emphysema, history of CAD, history of chronic heart failure with preserved ejection fraction, history of hypertension, GERD, history dysphagia, CKD stage III, osteoarthritis, migraine, depression, general anxiety disorder, lumbar spinal stenosis, adjustment disorder with anxious mood comes in because of abdominal pain. Patient says abdominal pain started yesterday morning. It is severe in nature. It is mostly in the right side. Associated w ith nausea. No vomiting. Had normal bowel movement yesterday afternoon. No fevers. No cough. No chest pain. No shortness of breath. No headache currently. No runny nose or sore throat. Vision is okay. No earaches. Micturating okay. Hemodynamics are okay. Partial small bowel obstruction N.p.o., IV fluids, IV pain meds pain, IV antiemetics as needed Pt had a BM and is passing flatus, abd. pain has resolved now Surgery consulted and discussed with - start clear liquid diet, encouraged ambulation Close monitor medical floor History of COPD Will continue inhalers Nocturnal hypoxemia on oxygen q hs Nonobstructive CAD On aspirin, statin beta-randi and Imdur Carotid artery disease CTA chest in December 2024: 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 cause about 20-30% luminal narrowing. Follow-up with vascular surgery On aspirin and statin Chronic diastolic CHF On Lasix 3 times a week Getting gentle fluids Will monitor for volume overload Hypertension On Imdur, lisinopril and metoprolol succinate Will monitor Hyperlipidemia On statin and Zetia GERD Omeprazole Depression Generalized anxiety disorder On Zoloft, amitriptyline and hydroxyzine as needed DVT prophylaxis SCDs Lovenox Disposition Medical floor Full code Admission and Anticipated Discharge Date Admission Date: May 16, 2025 Subjective Pt seen in follow up of partial SBO Currently lying in bed in NAD, little drowsy but awake, able to answer questions Pt had a BM and is passing flatus, abd. pain seems resolved now Discussed w/ surgeon - ok to start clear liquid diet asked her to work w/ spirometer and encouraged ambulation Review of Systems Review of Systems: All systems reviewed & are unremarkable except as noted in Subjective Physical Exam Physical Exam: General- WD/WN F in NAD Head- NC/AT. Eyes- PERRL. Neck- supple, no JVD. Lungs- clear to auscultation no wheezing or crackles Heart- regular rate and rhythm; no murmur Abdomen- normal bowel sounds, soft, no tenderness,no guarding Extremities- no pretibial edema, no erythema seen Neuro- drowsy but awake, answers appropriately, no facial palsy; no dysarthria; moves extremities Results & Data Results & Data Vital Signs (Past 12 Hours) Vital Signs Temp Pulse Resp BP Pulse Ox O2 Del Method O2 Flow Rate 05/18/25 07:20 36.8 C 76 20 165/66 H 95 Nasal Cannula 2.5 05/17/25 22:37 36.4 C L 71 18 161/74 H 97 Nasal Cannula 2 05/17/25 21:10 36.5 C 70 18 180/68 H 94 Nasal Cannula 2.5 Laboratory Results 05/18/25 Range/Units 05:46 WBC 6.47 (4.8-10.8) K/ul RBC 3.24 L (4.20-5.40) M/uL Hgb 9.8 L (12.0-16.0) g/dl Hct 28.8 L (37.0-47.0) % MCV 88.9 (80.0-100.0) fL MCH 30.2 (25.0-34.0) pg MCHC 34.0 (32.0-36.0) g/dL RDW Std Deviation 39.6 (36.4-46.3) fL RDW Coeff of Melany 12.2 (11.5-14.5) % Plt Count 173 (130-400) K/uL MPV 10.5 (9.4-12.4) fL Sodium 140 (136-145) mmol/L Potassium 3.7 (3.5-5.1) mmol/L Chloride 108 H (98-107) mmol/L Carbon Dioxide 29 (21-32) mmol/L Anion Gap 3 (3-11) BUN 7 (6-23) mg/dl Creatinine 0.76 (0.6-1.2) mg/dl Est Cr Clr Drug Dosing 52.4 ml/min eGFR 82.17 BUN/Creatinine Ratio 9.2 L (10-20) Glucose 120 H (70-99(Fasting)) mg/dl Calcium 8.8 (8.6-10.3) mg/dl Phosphorus 2.5 (2.5-4.9) mg/dl Magnesium 1.9 (1.7-2.4) mg/dl Medications Administered Current Inpatient Medications Albuterol (Albuterol 0.083% Nebu Soln 3 Ml Vial) 2.5 mg INH Q4H PRN; Protocol PRN Reason: Wheezing Stop: 06/15/25 03:38 Albuterol (Albuterol Hfa 8 Gm Inhaler) 2 puffs INH Q4H PRN PRN Reason: Shortness Of Breath Or Wheezing Stop: 06/15/25 03:38 Amitriptyline HCl (Amitriptyline Hcl 10 Mg Tab) 20 mg PO HS [facility]PL[facility] Stop: 06/15/25 20:59 Last Admin: 05/17/25 20:41 Dose: 20 mg Aspirin (Aspirin 81 Mg Ectab) 81 mg PO QAM [facility] Stop: 06/15/25 08:59 Last Admin: 05/18/25 08:13 Dose: 81 mg Atorvastatin Calcium (Atorvastatin 40 Mg Tab) 80 mg PO QAM [facility] Stop: 06/15/25 08:59 Last Admin: 05/18/25 08:13 Dose: 80 mg Calcium Carbonate (Calcium Carbonate 1250mg Tab) 1 tab PO BIDM [facility]PL[facility] Stop: 06/15/25 07:59 Last Admin: 05/18/25 08:13 Dose: 1 tab Diclofenac Sodium (Diclofenac Sod 1% Gel 100 Gm Tube) 2 gm EXT TID PRN; Protocol PRN Reason: Muscle Pain Stop: 06/15/25 03:38 Ezetimibe (Ezetimibe 10 Mg Tab) 10 mg PO QAM [facility] Stop: 06/15/25 08:59 Last Admin: 05/18/25 08:12 Dose: 10 mg Enoxaparin Sodium (Enoxaparin Inj 40 Mg/0.4 Ml Syr) 40 mg SQ Q24H [facility] Stop: 06/15/25 08:59 Last Admin: 05/18/25 08:12 Dose: 40 mg Furosemide (Furosemide 20 Mg Tab) 20 mg PO MoWeFr@0900 [facility]PL[facility] Stop: 06/15/25 08:59 Last Admin: 05/16/25 08:12 Dose: 20 mg Gabapentin (Gabapentin 300 Mg Cap) 300 mg PO BID [facility] Stop: 06/15/25 08:59 Last Admin: 05/16/25 08:15 Dose: 300 mg Hydromorphone HCl (Hydromorphone Inj 0.5 Mg/0.5 Ml Syr) 0.25 mg IV Q6H PRN PRN Reason: Moderate Pain (Scale 4, 5, 6) Stop: 05/30/25 03:38 Hydromorphone HCl (Hydromorphone Inj 0.5 Mg/0.5 Ml Syr) 0.5 mg IV Q6H PRN PRN Reason: Severe Pain (Scale 7, 8, 9,10) Stop: 05/30/25 03:38 Last Admin: 05/17/25 06:08 Dose: 0.5 mg Hydroxyzine HCl (Hydroxyzine Hcl 25 Mg Tab) 25 mg PO Q6H PRN PRN Reason: Anxiety Stop: 06/15/25 03:38 Ceftriaxone Sodium (Rocephin) 2,000 mg in 50 mls @ 100 mls/hr IV Q24H [facility]PL[facility] Stop: 05/21/25 02:29 Last Infusion: 05/18/25 04:26 Dose: Infused Dextrose/Sodium Chloride (D5w And 1/2nss) 1,000 mls @ 100 mls/hr IV .Q10H [facility] Stop: 05/19/25 03:38 Last Admin: 05/18/25 04:26 Dose: 100 mls/hr Acetaminophen (Ofirmev) 1,000 mg in 100 mls @ 400 mls/hr IV Q8H PRN PRN Reason: Pain or Fever Stop: 05/19/25 03:38 Last Infusion: 05/17/25 15:00 Dose: Infused Isosorbide Mononitrate (Isosorbide [place] Extended Rel 30 Mg Tabcr) 30 mg PO QAM REPL[facility]ED BY [facility] Stop: 06/15/25 08:59 Last Admin: 05/17/25 08:28 Dose: 30 mg Metoprolol Succinate (Metoprolol Succ 25mg Ext Rel Tab) 12.5 mg PO QAM REPL[facility]ED [facility] Stop: 06/15/25 08:59 Last Admin: 05/18/25 08:13 Dose: 12.5 mg Nitroglycerin (Nitroglycerin Sl 0.4 Mg/Tab Tab) 0.4 mg SL UD PRN PRN Reason: Chest Pain Stop: 06/15/25 03:38 Ondansetron HCl (Ondansetron Inj 2 Mg/Ml 2 Ml Vial) 4 mg IV Q6H PRN PRN Reason: Nausea Stop: 06/15/25 03:38 Last Admin: 05/17/25 06:15 Dose: 4 mg Pantoprazole Sodium (Pantoprazole 40 Mg Tab) 40 mg PO BID [facility] Stop: 06/15/25 08:59 Last Admin: 05/18/25 08:13 Dose: 40 mg Potassium Chloride (Potassium Chloride Crtab 20 Meq Tabcr) 40 meq PO NOW STA Stop: 05/18/25 08:51 Sertraline HCl (Sertraline Hcl 100 Mg Tablet) 200 mg PO HS [facility] Stop: 06/15/25 20:59 Last Admin: 05/17/25 20:41 Dose: 200 mg Tizanidine HCl (Tizanidine Hcl 4 Mg Tablet) 4 mg PO Q8H PRN PRN Reason: Muscle Spasm Stop: 06/15/25 03:38 Umeclidinium/Vilanterol (Umeclidinium/Vilanterol 62.5/25mcg 7 Puffs/Inhaler) 1 puffs INH QAM [facility] Stop: 06/15/25 08:59 Last Admin: 05/18/25 08:14 Dose: 1 puffs Vitamin D (Cholecalciferol 25 Mcg (1000 Units) Tab) 50 mcg PO DAILY [facility] Stop: 06/15/25 08:59 Last Admin: 05/18/25 08:13 Dose: 50 mcg
[2025-05-18] MEDS: POTASSIUM CHLORIDE CRTAB 20 MEQ TABCR PO STA (10:11)
[2025-05-18] MEDS: MAGNESIUM OXIDE 400 MG TAB PO SCH (11:32)
[2025-05-18] MEDS: FAMOTIDINE 20MG IV PUSH 20 MG/5 ML SYR IV STA (18:21)
[2025-05-18] MEDS: PROMETHAZINE 12.5 MG/50.5 ML BAG IV PRN (23:13)
[2025-05-19 07:15] LABS: Hematocrit (blood only) 28.5 % (37.0-47.0); Hemoglobin 9.8 g/dl (12.0-16.0); Mean Corpuscular Hemoglobin 30.4 pg (25.0-34.0); Mean Corpuscular Volume 88.5 fL (80.0-100.0); Platelet Count 195 K/uL (130-400); RDW Standard Deviation 39.2 fL (36.4-46.3); Red Blood Count 3.22 M/uL (4.20-5.40); White Blood Count 9.66 K/ul (4.8-10.8)
--- NOTE | 2025-05-19 07:45 | Hospitalist Progress Note ---
Date of Service May 19, 2025 Assessment & Plan (1) Partial obstruction of small intestine: Plan: 74-year-old female with past medical history significant for COPD, dyslipidemia, nocturnal hypoxemia due to emphysema, history of CAD, history of chronic heart failure with preserved ejection fraction, history of hypertension, GERD, history dysphagia, CKD stage III, osteoarthritis, migraine, depression, general anxiety disorder, lumbar spinal stenosis, adjustment disorder with anxious mood comes in because of abdominal pain. Patient says abdominal pain started yesterday morning. It is severe in nature. It is mostly in the right side. Associated w ith nausea. No vomiting. Had normal bowel movement yesterday afternoon. No fevers. No cough. No chest pain. No shortness of breath. No headache currently. No runny nose or sore throat. Vision is okay. No earaches. Micturating okay. Hemodynamics are okay. Partial small bowel obstruction N.p.o., IV fluids, IV pain meds pain, IV antiemetics as needed Pt had a BM and is passing flatus, abd. pain has resolved now Surgery consulted and discussed with - will try again clear liquid diet today (yesterday pt w/ nausea after trying clears) Close monitor medical floor History of COPD Will continue inhalers Nocturnal hypoxemia on oxygen q hs Nonobstructive CAD On aspirin, statin beta-randi and Imdur Carotid artery disease CTA chest in December 2024: 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 cause about 20-30% luminal narrowing. Follow-up with vascular surgery On aspirin and statin Chronic diastolic CHF On Lasix 3 times a week received gentle fluids, however will stop now, and will give small dose lasix as pt been on IVF since admission - monitor for volume overload Hypertension On Imdur, lisinopril and metoprolol succinate Will monitor Hyperlipidemia On statin and Zetia GERD Omeprazole Depression Generalized anxiety disorder On Zoloft, amitriptyline and hydroxyzine as needed DVT prophylaxis SCDs Lovenox Disposition Medical floor Full code Admission and Anticipated Discharge Date Admission Date: May 16, 2025 Subjective Pt seen in follow up of partial SBO Currently lying in bed in NAD, awake, alert, answers appropriately. Having small liquid BMs. Per RN, pt was short of breath this AM when walking to bathroom and back. CXR obtained, will give lasix and will stop IV fluids. RN also reports there may have been blood in pt's stool and that surgery was notified. Lovenox and ASA on hold fo now. However H&H this AM stable from yesterday - will cont. to monitor stools. No abd. pain, no nausea - will try again clear liquid diet Review of Systems Review of Systems: All systems reviewed & are unremarkable except as noted in Subjective Physical Exam Physical Exam: General- WD/WN F in NAD Head- NC/AT. Eyes- PERRL. Neck- supple, no JVD. Lungs- clear to auscultation no wheezing or crackles Heart- regular rate and rhythm; no murmur Abdomen- normal bowel sounds, soft, no tenderness,no guarding Extremities- no pretibial edema, no erythema seen Neuro- awake, answers appropriately, no facial palsy; no dysarthria; moves extremities Results & Data Results & Data Vital Signs (Past 12 Hours) Vital Signs Temp Pulse Resp BP Pulse Ox O2 Del Method O2 Flow Rate 05/19/25 07:30 36.7 C 80 22 182/83 H 96 Nasal Cannula 2 05/18/25 23:39 150/72 H 92 Nasal Cannula 2 05/18/25 23:02 36.7 C 79 16 172/70 H 89 L Nasal Cannula 2 05/18/25 21:15 Nasal Cannula 2 Laboratory Results 05/19/25 Range/Units 06:31 WBC 9.66 (4.8-10.8) K/ul RBC 3.22 L (4.20-5.40) M/uL Hgb 9.8 L (12.0-16.0) g/dl Hct 28.5 L (37.0-47.0) % MCV 88.5 (80.0-100.0) fL MCH 30.4 (25.0-34.0) pg MCHC 34.4 (32.0-36.0) g/dL RDW Std Deviation 39.2 (36.4-46.3) fL RDW Coeff of Melany 12.1 (11.5-14.5) % Plt Count 195 (130-400) K/uL MPV 10.4 (9.4-12.4) fL Sodium Pending Potassium Pending Chloride Pending Carbon Dioxide Pending Anion Gap Pending BUN Pending Creatinine Pending Est Cr Clr Drug Dosing Pending eGFR Pending BUN/Creatinine Ratio Pending Glucose Pending Calcium Pending Phosphorus Pending Magnesium Pending Medications Administered Current Inpatient Medications Albuterol (Albuterol 0.083% Nebu Soln 3 Ml Vial) 2.5 mg INH Q4H PRN; Protocol PRN Reason: Wheezing Stop: 06/15/25 03:38 Albuterol (Albuterol Hfa 8 Gm Inhaler) 2 puffs INH Q4H PRN PRN Reason: Shortness Of Breath Or Wheezing Stop: 06/15/25 03:38 Amitriptyline HCl (Amitriptyline Hcl 10 Mg Tab) 20 mg PO HS [facility] Stop: 06/15/25 20:59 Last Admin: 05/18/25 21:17 Dose: 20 mg Aspirin (Aspirin 81 Mg Ectab) 81 mg PO QAM [facility] Stop: 06/15/25 08:59 Last Admin: 05/18/25 08:13 Dose: 81 mg Atorvastatin Calcium (Atorvastatin 40 Mg Tab) 80 mg PO QAM [facility] Stop: 06/15/25 08:59 Last Admin: 05/18/25 08:13 Dose: 80 mg Calcium Carbonate (Calcium Carbonate 1250mg Tab) 1 tab PO BIDM [facility] Stop: 06/15/25 07:59 Last Admin: 05/18/25 17:28 Dose: Not Given Diclofenac Sodium (Diclofenac Sod 1% Gel 100 Gm Tube) 2 gm EXT TID PRN; Protocol PRN Reason: Muscle Pain Stop: 06/15/25 03:38 Ezetimibe (Ezetimibe 10 Mg Tab) 10 mg PO QAM [facility] Stop: 06/15/25 08:59 Last Admin: 05/18/25 08:12 Dose: 10 mg Enoxaparin Sodium (Enoxaparin Inj 40 Mg/0.4 Ml Syr) 40 mg SQ Q24H [facility] Stop: 06/15/25 08:59 Last Admin: 05/18/25 08:12 Dose: 40 mg Furosemide (Furosemide 20 Mg Tab) 20 mg PO MoWeFr@0900 [facility] Stop: 06/15/25 08:59 Last Admin: 05/16/25 08:12 Dose: 20 mg Gabapentin (Gabapentin 300 Mg Cap) 300 mg PO BID [facility] Stop: 06/15/25 08:59 Last Admin: 05/16/25 08:15 Dose: 300 mg Hydromorphone HCl (Hydromorphone Inj 0.5 Mg/0.5 Ml Syr) 0.25 mg IV Q6H PRN PRN Reason: Moderate Pain (Scale 4, 5, 6) Stop: 05/30/25 03:38 Hydromorphone HCl (Hydromorphone Inj 0.5 Mg/0.5 Ml Syr) 0.5 mg IV Q6H PRN PRN Reason: Severe Pain (Scale 7, 8, 9,10) Stop: 05/30/25 03:38 Last Admin: 05/17/25 06:08 Dose: 0.5 mg Hydroxyzine HCl (Hydroxyzine Hcl 25 Mg Tab) 25 mg PO Q6H PRN PRN Reason: Anxiety Stop: 06/15/25 03:38 Ceftriaxone Sodium (Rocephin) 2,000 mg in 50 mls @ 100 mls/hr IV Q24H [facility] Stop: 05/21/25 02:29 Last Infusion: 05/19/25 03:40 Dose: Infused Promethazine HCl (Phenergan) 12.5 mg in 50.5 mls @ 202 mls/hr IV Q6H PRN PRN Reason: Nausea And Vomiting Stop: 06/17/25 22:53 Last Infusion: 05/18/25 23:45 Dose: Infused Isosorbide Mononitrate (Isosorbide [place] Extended Rel 30 Mg Tabcr) 30 mg PO QAM [facility] Stop: 06/15/25 08:59 Last Admin: 05/18/25 15:15 Dose: 30 mg Magnesium Oxide (Magnesium Oxide 400 Mg Tab) 400 mg PO BID [facility] Stop: 06/17/25 09:59 Last Admin: 05/18/25 21:17 Dose: 400 mg Metoprolol Succinate (Metoprolol Succ 25mg Ext Rel Tab) 12.5 mg PO QAM [facility] Stop: 06/15/25 08:59 Last Admin: 05/18/25 08:13 Dose: 12.5 mg Nitroglycerin (Nitroglycerin Sl 0.4 Mg/Tab Tab) 0.4 mg SL UD PRN PRN Reason: Chest Pain Stop: 06/15/25 03:38 Ondansetron HCl (Ondansetron Inj 2 Mg/Ml 2 Ml Vial) 4 mg IV Q6H PRN PRN Reason: Nausea Stop: 06/15/25 03:38 Last Admin: 05/18/25 17:25 Dose: 4 mg Pantoprazole Sodium (Pantoprazole 40 Mg Tab) 40 mg PO BID [facility] Stop: 06/15/25 08:59 Last Admin: 05/18/25 21:18 Dose: 40 mg Sertraline HCl (Sertraline Hcl 100 Mg Tablet) 200 mg PO HS [facility] Stop: 06/15/25 20:59 Last Admin: 05/18/25 21:17 Dose: 200 mg Tizanidine HCl (Tizanidine Hcl 4 Mg Tablet) 4 mg PO Q8H PRN PRN Reason: Muscle Spasm Stop: 06/15/25 03:38 Umeclidinium/Vilanterol (Umeclidinium/Vilanterol 62.5/25mcg 7 Puffs/Inhaler) 1 puffs INH QAM [facility] Stop: 06/15/25 08:59 Last Admin: 05/18/25 08:14 Dose: 1 puffs Vitamin D (Cholecalciferol 25 Mcg (1000 Units) Tab) 50 mcg PO DAILY [facility] Stop: 06/15/25 08:59 Last Admin: 05/18/25 08:13 Dose: 50 mcg
[2025-05-19 07:50] LABS: Anion Gap 4.0 (3-11); Blood Urea Nitrogen 6.0 mg/dl (6-23); Calcium 8.9 mg/dl (8.6-10.3); Carbon Dioxide 30.0 mmol/L (21-32); Chloride 107.0 mmol/L (98-107); Creatinine Clr Calc Pharmacy 52.4 ml/min; Glucose 114.0 mg/dl (70-99(Fasting)); Magnesium 1.8 mg/dl (1.7-2.4); Potassium 3.6 mmol/L (3.5-5.1); Sodium 141.0 mmol/L (136-145)
--- NOTE | 2025-05-19 08:02 | Surgery Progress Note ---
<Statement entered by Balaji Gamez, - 05/19/25 09:46> I have seen and examined this patient this am. She denies any GI issues and continues to pass gas as well as have loose BMs. This am she c/o SOB being managed per medical service. Surgery will sign off at this time. Please re-consult with questions or concerns. Date of Service May 19, 2025 Assessment & Plan (1) Partial obstruction of small intestine: Plan: Patient here w/ concern for partial SBO She reports abdominal symptoms improved, she denies pain/n/v this AM. she is passing gas and loose stool Will trial clears again today, if goes well can continue to advance as tolerates Will obtain CXR for SOB this AM Pt is requesting her home meds be restarted, in particular her gabapentin if possible No plans for any surgical intervention Admission and Anticipated Discharge Date Admission Date: May 16, 2025 Subjective Patient reports feeling short of breath this AM. Abdominal pin improved. She is passing gas and loose stools. No n/v this AM. apparently she had some nausea yesterday and diet backed to NPO. Physical Exam Physical Exam: awake alert Respiratory: somewhat short of breath appearing this AM, on supplemental O2 saturating in the 90s Gastrointestinal (Abdomen): abdomen is soft, non tender appearing Results & Data Vital Signs (Past 12 Hours) Vital Signs Temp Pulse Resp BP Pulse Ox O2 Del Method O2 Flow Rate 05/19/25 07:47 154/66 H 05/19/25 07:30 98.1 F 80 22 182/83 H 96 Nasal Cannula 2 05/18/25 23:39 150/72 H 92 Nasal Cannula 2 05/18/25 23:02 98.1 F 79 16 172/70 H 89 L Nasal Cannula 2 05/18/25 21:15 Nasal Cannula 2 PG Care Time/CCT Total # of Minutes Spent Total Time Spent with Patient: Total time spent is greater than 50% in coordination of care (as documented) at patient's floor/unit and/or counseling patient: Coding Level of Care Code 76936 SUB INP/OBS CARE 09/14MIN Diagnoses Partial obstruction of small intestine K56.600
--- NOTE | 2025-05-19 08:26 | XRay Report ---
XR chest 1V portable CLINICAL HISTORY: SOB COMPARISON STUDY: 05/17/2025 FINDINGS: Stable mild cardiomegaly with mild pulmonary vascular congestion. There is stable mild opac ity in the lung bases with blunting of the costophrenic angles. No pneumothorax. IMPRESSION: CHF with likely small bilateral pleural effusions and associated lung base consolidation . ACT 112: Negative or not required by law. Electronically signed by: Carlos Street M.D. 05/19/2025 8:24 AM
[2025-05-19] MEDS ORDERED: BUTT PASTE (ZINC OXIDE 16%) 171 APPLN/57 GM JAR EXT PRN (09:15)
[2025-05-19] MEDS: POTASSIUM CHLORIDE CRTAB 20 MEQ TABCR PO STA (09:39)
[2025-05-19] MEDS: GABAPENTIN 100 MG CAP PO SCH (09:39)
[2025-05-19] MEDS: FUROSEMIDE INJ 20 MG/2 ML VIAL IV ONE (10:04)
[2025-05-19] MEDS: guaiFENesin 600 MG TABCR PO SCH (19:36)
[2025-05-20 07:48] LABS: Hematocrit (blood only) 31.5 % (37.0-47.0); Hemoglobin 10.7 g/dl (12.0-16.0); Mean Corpuscular Hemoglobin 30.1 pg (25.0-34.0); Mean Corpuscular Volume 88.7 fL (80.0-100.0); Platelet Count 188 K/uL (130-400); RDW Standard Deviation 40.0 fL (36.4-46.3); Red Blood Count 3.55 M/uL (4.20-5.40); White Blood Count 7.52 K/ul (4.8-10.8)
[2025-05-20 08:08] LABS: Anion Gap 6.0 (3-11); Blood Urea Nitrogen 10.0 mg/dl (6-23); Calcium 9.3 mg/dl (8.6-10.3); Carbon Dioxide 33.0 mmol/L (21-32); Chloride 102.0 mmol/L (98-107); Creatinine Clr Calc Pharmacy 48.0 ml/min; Glucose 100.0 mg/dl (70-99(Fasting)); Magnesium 1.8 mg/dl (1.7-2.4); Potassium 3.9 mmol/L (3.5-5.1); Sodium 141.0 mmol/L (136-145)
--- NOTE | 2025-05-20 10:43 | Hospitalist Progress Note ---
Date of Service May 20, 2025 Assessment & Plan (1) Partial obstruction of small intestine: Plan: 74-year-old female with past medical history significant for COPD, dyslipidemia, nocturnal hypoxemia due to emphysema, history of CAD, history of chronic heart failure with preserved ejection fraction, history of hypertension, GERD, history dysphagia, CKD stage III, osteoarthritis, migraine, depression, general anxiety disorder, lumbar spinal stenosis, adjustment disorder with anxious mood comes in because of abdominal pain. Patient says abdominal pain started yesterday morning. It is severe in nature. It is mostly in the right side. Associated w ith nausea. No vomiting. Had normal bowel movement yesterday afternoon. No fevers. No cough. No chest pain. No shortness of breath. No headache currently. No runny nose or sore throat. Vision is okay. No earaches. Micturating okay. Hemodynamics are okay. Partial small bowel obstruction N.p.o., IV fluids, IV pain meds pain, IV antiemetics as needed Pt had a BM and is passing flatus, abd. pain has resolved now Surgery consulted tolerating clear liquid diet, will advance to full Close monitor medical floor History of COPD Will continue inhalers Nocturnal hypoxemia on oxygen q hs Nonobstructive CAD On aspirin, statin beta-randi and Imdur Carotid artery disease CTA chest in December 2024: 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 cause about 20-30% luminal narrowing. Follow-up with vascular surgery On aspirin and statin Chronic diastolic CHF On Lasix 3 times a week received gentle fluids, stopped now, cont. small dose lasix - monitor for volume overload - pt currently on 1L of suppl. O2, try to wean off Hypertension On Imdur, lisinopril and metoprolol succinate Will monitor Hyperlipidemia On statin and Zetia GERD Omeprazole Depression Generalized anxiety disorder On Zoloft, amitriptyline and hydroxyzine as needed DVT prophylaxis SCDs Lovenox Disposition Medical floor Full code Admission and Anticipated Discharge Date Admission Date: May 16, 2025 Subjective Pt seen in follow up of partial SBO Currently sitting up in chair in NAD, awake, alert, answers appropriately. Says she has been ambulating. Feeling much better. Denies any abd. pain. Currently still on 1L of suppl. O2. encouraged incentive spirometry, will give small dose lasix tolerating clear liquid diet, will start full liquid Review of Systems Review of Systems: All systems reviewed & are unremarkable except as noted in Subjective Physical Exam Physical Exam: General- WD/WN F in NAD Head- NC/AT. Eyes- PERRL. Neck- supple, no JVD. Lungs- clear to auscultation no wheezing or crackles Heart- regular rate and rhythm; no murmur Abdomen- normal bowel sounds, soft, no tenderness,no guarding Extremities- no pretibial edema, no erythema seen Neuro- awake, answers appropriately, no facial palsy; no dysarthria; moves extremities Results & Data Results & Data Vital Signs (Past 12 Hours) Vital Signs Temp Pulse Resp BP Pulse Ox O2 Del Method O2 Flow Rate 05/20/25 07:30 36.9 C 61 16 163/76 H 99 Nasal Cannula 2 05/19/25 23:07 36.6 C 63 15 159/82 H 95 Nasal Cannula 2 Laboratory Results 05/20/25 Range/Units 07:02 WBC 7.52 (4.8-10.8) K/ul RBC 3.55 L (4.20-5.40) M/uL Hgb 10.7 L (12.0-16.0) g/dl Hct 31.5 L (37.0-47.0) % MCV 88.7 (80.0-100.0) fL MCH 30.1 (25.0-34.0) pg MCHC 34.0 (32.0-36.0) g/dL RDW Std Deviation 40.0 (36.4-46.3) fL RDW Coeff of Melany 12.4 (11.5-14.5) % Plt Count 188 (130-400) K/uL MPV 10.3 (9.4-12.4) fL Sodium 141 (136-145) mmol/L Potassium 3.9 (3.5-5.1) mmol/L Chloride 102 (98-107) mmol/L Carbon Dioxide 33 H (21-32) mmol/L Anion Gap 6 (3-11) BUN 10 (6-23) mg/dl Creatinine 0.83 (0.6-1.2) mg/dl Est Cr Clr Drug Dosing 48.0 ml/min eGFR 73.93 BUN/Creatinine Ratio 12.0 (10-20) Glucose 100 H (70-99(Fasting)) mg/dl Calcium 9.3 (8.6-10.3) mg/dl Phosphorus 3.5 D (2.5-4.9) mg/dl Magnesium 1.8 (1.7-2.4) mg/dl Medications Administered Current Inpatient Medications Albuterol (Albuterol 0.083% Nebu Soln 3 Ml Vial) 2.5 mg INH Q4H PRN; Protocol PRN Reason: Wheezing Stop: 06/15/25 03:38 Albuterol (Albuterol Hfa 8 Gm Inhaler) 2 puffs INH Q4H PRN PRN Reason: Shortness Of Breath Or Wheezing Stop: 06/15/25 03:38 Amitriptyline HCl (Amitriptyline Hcl 10 Mg Tab) 20 mg PO HS [facility] Stop: 06/15/25 20:59 Last Admin: 05/19/25 19:36 Dose: 20 mg Aspirin (Aspirin 81 Mg Ectab) 81 mg PO QAM [facility] Stop: 06/15/25 08:59 Last Admin: 05/19/25 07:55 Dose: 81 mg Atorvastatin Calcium (Atorvastatin 40 Mg Tab) 80 mg PO QAM [facility] Stop: 06/15/25 08:59 Last Admin: 05/20/25 07:51 Dose: 80 mg Calcium Carbonate (Calcium Carbonate 1250mg Tab) 1 tab PO BIDM [facility] Stop: 06/15/25 07:59 Last Admin: 05/20/25 07:52 Dose: 1 tab Diclofenac Sodium (Diclofenac Sod 1% Gel 100 Gm Tube) 2 gm EXT TID PRN; Protocol PRN Reason: Muscle Pain Stop: 06/15/25 03:38 Ezetimibe (Ezetimibe 10 Mg Tab) 10 mg PO QAM [facility] Stop: 06/15/25 08:59 Last Admin: 05/20/25 07:52 Dose: 10 mg Enoxaparin Sodium (Enoxaparin Inj 40 Mg/0.4 Ml Syr) 40 mg SQ Q24H [facility] Stop: 06/15/25 08:59 Last Admin: 05/19/25 07:56 Dose: 40 mg Furosemide (Furosemide 20 Mg Tab) 20 mg PO MoWeFr@0900 [facility] Stop: 06/15/25 08:59 Last Admin: 05/19/25 07:55 Dose: 20 mg Gabapentin (Gabapentin 300 Mg Cap) 300 mg PO BID [facility] Stop: 06/15/25 08:59 Last Admin: 05/16/25 08:15 Dose: 300 mg Gabapentin (Gabapentin 100 Mg Cap) 200 mg PO BID [facility] Stop: 06/18/25 08:59 Last Admin: 05/20/25 07:46 Dose: 200 mg Guaifenesin (Guaifenesin 600 Mg Tabcr) 600 mg PO Q12 [facility] Stop: 06/18/25 20:59 Last Admin: 05/20/25 07:47 Dose: 600 mg Hydromorphone HCl (Hydromorphone Inj 0.5 Mg/0.5 Ml Syr) 0.25 mg IV Q6H PRN PRN Reason: Moderate Pain (Scale 4, 5, 6) Stop: 05/30/25 03:38 Hydromorphone HCl (Hydromorphone Inj 0.5 Mg/0.5 Ml Syr) 0.5 mg IV Q6H PRN PRN Reason: Severe Pain (Scale 7, 8, 9,10) Stop: 05/30/25 03:38 Last Admin: 05/17/25 06:08 Dose: 0.5 mg Hydroxyzine HCl (Hydroxyzine Hcl 25 Mg Tab) 25 mg PO Q6H PRN PRN Reason: Anxiety Stop: 06/15/25 03:38 Ceftriaxone Sodium (Rocephin) 2,000 mg in 50 mls @ 100 mls/hr IV Q24H [facility] Stop: 05/21/25 02:29 Last Infusion: 05/20/25 02:47 Dose: Infused Promethazine HCl (Phenergan) 12.5 mg in 50.5 mls @ 202 mls/hr IV Q6H PRN PRN Reason: Nausea And Vomiting Stop: 06/17/25 22:53 Last Infusion: 05/18/25 23:45 Dose: Infused Isosorbide Mononitrate (Isosorbide [place] Extended Rel 30 Mg Tabcr) 30 mg PO QAM [facility] Stop: 06/15/25 08:59 Last Admin: 05/20/25 07:50 Dose: 30 mg Magnesium Oxide (Magnesium Oxide 400 Mg Tab) 400 mg PO BID [facility] Stop: 06/17/25 09:59 Last Admin: 05/20/25 07:52 Dose: 400 mg Metoprolol Succinate (Metoprolol Succ 25mg Ext Rel Tab) 12.5 mg PO QAM [facility] Stop: 06/15/25 08:59 Last Admin: 05/20/25 07:50 Dose: 12.5 mg Nitroglycerin (Nitroglycerin Sl 0.4 Mg/Tab Tab) 0.4 mg SL UD PRN PRN Reason: Chest Pain Stop: 06/15/25 03:38 Ondansetron HCl (Ondansetron Inj 2 Mg/Ml 2 Ml Vial) 4 mg IV Q6H PRN PRN Reason: Nausea Stop: 06/15/25 03:38 Last Admin: 05/18/25 17:25 Dose: 4 mg Pantoprazole Sodium (Pantoprazole 40 Mg Tab) 40 mg PO BID [facility] Stop: 06/15/25 08:59 Last Admin: 05/20/25 07:51 Dose: 40 mg Petrolatum (Butt Paste (Zinc Oxide 16%) 171 Appln/57 Gm Jar) 1 appln EXT TID PRN PRN Reason: excoriation Stop: 06/18/25 09:14 Sertraline HCl (Sertraline Hcl 100 Mg Tablet) 200 mg PO HS [facility] Stop: 06/15/25 20:59 Last Admin: 05/19/25 19:36 Dose: 200 mg Tizanidine HCl (Tizanidine Hcl 4 Mg Tablet) 4 mg PO Q8H PRN PRN Reason: Muscle Spasm Stop: 06/15/25 03:38 Umeclidinium/Vilanterol (Umeclidinium/Vilanterol 62.5/25mcg 7 Puffs/Inhaler) 1 puffs INH QAM [facility] Stop: 06/15/25 08:59 Last Admin: 05/20/25 07:53 Dose: 1 puffs Vitamin D (Cholecalciferol 25 Mcg (1000 Units) Tab) 50 mcg PO DAILY [facility] Stop: 06/15/25 08:59 Last Admin: 05/20/25 07:50 Dose: 50 mcg
[2025-05-20] MEDS: FUROSEMIDE INJ 20 MG/2 ML VIAL IV ONE (14:52)
[2025-05-20] MEDS: POTASSIUM CHLORIDE CRTAB 20 MEQ TABCR PO STA (14:52)
[2025-05-21 08:26] LABS: Hematocrit (blood only) 32.6 % (37.0-47.0); Hemoglobin 11.3 g/dl (12.0-16.0); Mean Corpuscular Hemoglobin 30.6 pg (25.0-34.0); Mean Corpuscular Volume 88.3 fL (80.0-100.0); Platelet Count 209 K/uL (130-400); RDW Standard Deviation 39.7 fL (36.4-46.3); Red Blood Count 3.69 M/uL (4.20-5.40); White Blood Count 8.52 K/ul (4.8-10.8)
[2025-05-21 08:42] VITALS: BP 119/68; PULSE 76; RESP 18; TEMP 99.9; O2SAT 97
[2025-05-21 08:52] LABS: Anion Gap 6.0 (3-11); Blood Urea Nitrogen 16.0 mg/dl (6-23); Calcium 9.6 mg/dl (8.6-10.3); Carbon Dioxide 33.0 mmol/L (21-32); Chloride 101.0 mmol/L (98-107); Creatinine Clr Calc Pharmacy 41.1 ml/min; Glucose 93.0 mg/dl (70-99(Fasting)); Magnesium 1.8 mg/dl (1.7-2.4); Potassium 3.8 mmol/L (3.5-5.1); Sodium 140.0 mmol/L (136-145)
--- NOTE | 2025-05-21 10:26 | Discharge Summary ---
Discharge Summary Date of Service May 21, 2025 Principal Dx & Hospital Course #1 = Principal Diagnosis (1) Partial obstruction of small intestine: 74-year-old female with past medical history significant for COPD, dyslipidemia, nocturnal hypoxemia due to emphysema, history of CAD, history of chronic heart failure with preserved ejection fraction, history of hypertension, GERD, history dysphagia, CKD stage III, osteoarthritis, migraine, depression, general anxiety disorder, lumbar spinal stenosis, adjustment disorder with anxious mood comes in because of abdominal pain. Diagnosed with partial SBO. gen surgery was consulted. bowel function returned without intervention. she is tolerating solids and wishes to go home. There was concern yesterday for mild acute on chronic HFpEF due to receiving IVF. she feels well today and looks euvolemic. sh e will continue her home lasix as prescribed. She wishes to go home this morning. vitals and labs are stable for DC home. she was personally weaned off O2 and is satting 95% on room air. she uses 1L O2 at home at night. Partial small bowel obstruction N.p.o., IV fluids, IV pain meds pain, IV antiemetics as needed Pt had a BM and is passing flatus, abd. pain has resolved now Surgery consulted tolerating clear liquid diet, will advance to full Close monitor medical floor History of COPD Will continue inhalers Nocturnal hypoxemia on oxygen q hs Nonobstructive CAD On aspirin, statin beta-randi and Imdur Carotid artery disease CTA chest in December 2024: 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 cause about 20-30% luminal narrowing. Follow-up with vascular surgery On aspirin and statin Chronic diastolic CHF On Lasix 3 times a week received gentle fluids, stopped now, cont. small dose lasix - monitor for volume overload - pt currently on 1L of suppl. O2, try to wean off Hypertension On Imdur, lisinopril and metoprolol succinate Will monitor Hyperlipidemia On statin and Zetia GERD Omeprazole Depression Generalized anxiety disorder On Zoloft, amitriptyline and hydroxyzine as needed Notes For Next Care Provider Medication Changes From Visit none Admission HPI Per Admitting Provider 74-year-old female with past medical history significant for COPD, dyslipidemia, nocturnal hypoxemia due to emphysema, history of CAD, history of chronic heart failure with preserved ejection fraction, history of hypertension, GERD, history dysphagia, CKD stage III, osteoarthritis, migraine, depression, general anxiety disorder, lumbar spinal stenosis, adjustment disorder with anxious mood comes in because of abdominal pain. Patient says abdominal pain started yesterday morning. It is severe in nature. It is mostly in the right side. Associated with nausea. No vomiting. Had normal bowel movement yesterday afternoon. No fevers. No cough. No chest pain. No shortness of breath. No headache currently. No runny nose or sore throat. Vision is okay. No earaches. Micturating okay. Hemodynamics are okay. Past medical history. As mentioned above Past surgical history. Allograft for spine surgery. Bone marrow aspiration. Left carpal tunnel surgery. . Colonoscopy. Cystoscopy. Dilatation curettage. EGD. Insertion of interbody biomechanical device. Neck spine fusion surgery. Laminectomy. Cholecystectomy. Right shoulder surgery. Spinal fusion surgery. Total hysterectomy. Social history. Quit smoking 2020. Smoked 0.3 pack a day for 51 years. No alcohol use. No drug use. Family history. Father had heart attack. Brother had hypertension. Mother had hypertension. Sister had breast cancer. Paternal aunt had breast cancer. Discharge Exam Vitals and labs reviewed General: Well appearing, NAD HEENT: EOMI, PERRLA Neck: Supple Cardiac: RRR no rubs gallops or murmurs Lungs: CTA no rhonchi wheezing or rales Abd: S NT ND BS positive : no barger MSK: Full ROM. No obvious deformities Ext: No Edema cyanosis Skin: Warm, Dry Neuro: AOx3 No focal deficits. Psych: Normal Mood Updated Medication List Medication Instructions Recorded Confirmed Type amitriptyline 10 mg tablet 20 mg PO HS 09/20/18 05/15/25 History aspirin 81 mg tablet,delayed 81 mg PO QAM 09/20/18 05/15/25 History release sertraline 100 mg tablet 200 mg PO HS 09/20/18 05/15/25 History calcium carbonate (Calcium 600) 600 mg PO BIDM 01/02/19 05/15/25 History ezetimibe 10 mg tablet (Zetia) 10 mg PO QAM 11/05/19 05/15/25 History atorvastatin 80 mg tablet 80 mg PO QAM 04/10/23 05/15/25 History hydroxyzine HCl 25 mg tablet 25 mg PO Q6H PRN Anxiety 04/10/23 05/15/25 History nitroglycerin 0.4 mg sublingual 0.4 mg sublingual UD PRN Chest Pain 04/22/23 05/15/25 History tablet umeclidinium 62.5 mcg-vilanterol 1 inh inhalation QAM 04/22/23 05/15/25 History 25 mcg/actuation powdr for inhalation (Anoro Ellipta) furosemide 40 mg tablet 20 mg PO 3XWK 12/27/24 05/15/25 History gabapentin 300 mg capsule 300 mg PO BID 12/27/24 05/15/25 History tizanidine 4 mg tablet 4 mg PO Q8H PRN Muscle Spasm 02/08/25 05/15/25 History isosorbide mononitrate 30 mg 30 mg PO QAM #30 tabs 03/31/25 05/15/25 Rx tablet,extended release 24 hr metoprolol succinate 25 mg 12.5 mg (1/2 x 25 mg) PO QAM #30 03/31/25 05/15/25 Rx tablet,extended release 24 hr tabs pantoprazole 40 mg tablet,delayed 40 mg PO BID #60 tabs 03/31/25 05/15/25 Rx release acetaminophen 650 mg 650 mg PO BID 05/15/25 05/15/25 History tablet,extended release albuterol sulfate 2.5 mg/3 mL 2.5 mg inhalation Q4H PRN Wheezing 05/15/25 05/15/25 History (0.083 %) solution for nebulization albuterol sulfate 90 mcg/actuation 2 puff inhalation Q4H PRN 05/15/25 05/15/25 History aerosol inhaler Shortness Of Breath Or Wheezing cholecalciferol (vitamin D3) 50 50 mcg PO DAILY 05/15/25 05/15/25 History mcg (2,000 unit) capsule (Vitamin D3) diclofenac sodium 1 % topical gel 2 g topical TID PRN Muscle Pain 05/15/25 05/15/25 History hydrocodone 5 mg-acetaminophen 325 1 tab PO Q6H PRN Pain, Moderate, 05/15/25 05/15/25 History mg tablet Severe onabotulinumtoxinA 200 unit 200 unit subcut .Q12WK 05/15/25 05/15/25 History solution for injection (Botox) Hospital Stay Data Consultations 05/16/25 01:24 ED Decision to Admit Stat 05/16/25 08:00 Consult General Surgery Routine Diagnostic Imagining Performed 05/15/25 23:19 CT abd pelvis wo con Stat Pending Results Patient Have Any Pending Studies at Discharge: No Discharge Instructions Given to Patient (Per Discharging Provider) You were admitted for a partial small bowel obstruction which resolved on its own. There was concern you were in mild CHF, continue taking your home lasix. Try to limit your salt intake to less than 2 grams per day. Total Time Total Time Spent Total Time Spent (In Minutes): 36
== END 2025-05-21 11:50 | disposition home or self-care (01) | DRG 389 ==
LOC: ED 23:09 → SUATTDRO 05-16 02:24 → EDINP 05-16 02:24 → 3N 05-16 03:39